=== PATIENT | male | born 1980 | race Caucasian/White ===

== ENCOUNTER → 2020-06-21 08:58 | Outpatient (BNVA) | payer OTHER, SELFPAY | PROVIDERS: PCP Physician Assistant; Visit Provider Internal Medicine Pulmonary Disease | DX: J45.50 Severe persistent asthma, uncomplicated (principal); G47.33 Obstructive sleep apnea (adult) (pediatric); Z91.09 Other allergy status, other than to drugs and biological substances; Z99.89 Dependence on other enabling machines and devices; Z79.899 Other long term (current) drug therapy; Z23 Encounter for immunization | CPT/HCPCS: 90686; 99214 ==

== ENCOUNTER 2020-07-02 07:29 | Outpatient (REF) | payer OTHER, SELFPAY | END 2020-07-02 07:30 | disposition home or self-care (01) | LOC: HO.MDS 07:29 | PROVIDERS: Visit Provider Internal Medicine Pulmonary Disease | DX: J45.50 Severe persistent asthma, uncomplicated (principal) | CPT/HCPCS: 96372 ==

== ENCOUNTER 2020-07-30 07:30 | Outpatient (REF) | payer OTHER, SELFPAY | END 2020-07-30 07:31 | disposition home or self-care (01) | LOC: HO.MDS 07:30 | PROVIDERS: PCP Physician Assistant; Visit Provider Internal Medicine Pulmonary Disease | DX: J45.50 Severe persistent asthma, uncomplicated (principal) | CPT/HCPCS: 96372; J2357 ==

== ENCOUNTER 2020-08-05 07:02 | Emergency (ER) | payer OTHER, SELFPAY ==
--- NOTE | 2020-08-05 07:44 | ED_ITS ---
HPI - Seizure General Chief Complaint: Seizure Stated Complaint: ?seizure Time Seen by Provider: 08/05/20 07:43 Source: patient Mode of arrival: ambulatory Limitations: no limitations History of Present Illness complaint: possible seizure Onset (ago): hour(s) (few hours) Description of Episode: loss of consciousness, bladder incontinence, post-event confusion and other (TV was knocked over, woke up on floor) Witnessed: No Trauma: Yes Seizure History: Yes Place: Home Possible Precipitating Event: none Associated symptoms: denies other symptoms Treatments prior to arrival: none Related Data Home Medications Medication Instructions Recorded Confirmed albuterol sulfate mg INHALATION 06/21/20 aluminum-mag hydroxide-simethicone ml PO 06/21/20 200 mg-200 mg-20 mg/5 mL oral susp aspirin 81 mg tablet,delayed 81 mg PO DAILY 06/21/20 release atorvastatin 40 mg tablet 40 mg PO DAILY 06/21/20 npkbmspivm-clxjdxfpzycuw-axvlcfhc 1 cap PO Q8H PRN 06/21/20 50 mg-325 mg-40 mg capsule carvedilol 3.125 mg tablet 3.125 mg PO BID 06/21/20 divalproex 250 mg tablet,delayed 0 mg PO 06/21/20 release fluconazole 200 mg tablet 200 mg PO DAILY 06/21/20 fluticasone propionate 50 INTRANASAL 06/21/20 mcg/actuation nasal spray,suspension levetiracetam 1,000 mg tablet 1,000 mg PO BID 06/21/20 levetiracetam 250 mg tablet 250 mg PO BID 06/21/20 lisinopril 10 mg tablet 10 mg PO DAILY 06/21/20 midodrine 2.5 mg tablet 2.5 mg PO BID 06/21/20 montelukast 10 mg tablet 10 mg PO DAILY 06/21/20 montelukast 4 mg chewable tablet mg PO 06/21/20 nystatin 100,000 unit/mL oral PO 06/21/20 suspension omalizumab 150 mg/mL subcutaneous mg SUBCUT 06/21/20 syringe prednisone 20 mg tablet 20 mg PO BID 06/21/20 sertraline 50 mg tablet 50 mg PO DAILY 06/21/20 tiotropium bromide 2.5 INHALATION 06/21/20 mcg/actuation mist for inhalation Previous Rx's Medication Instructions Recorded albuterol sulfate 90 mcg/actuation 2 puff PO Q4H PRN #8.5 g 07/08/20 aerosol inhaler pantoprazole 40 mg tablet,delayed 40 mg PO DAILY #90 tab 07/08/20 release sertraline 100 mg tablet 100 mg PO DAILY #90 tab 07/08/20 Allergies Allergy/AdvReac Type Severity Reaction Status Date / Time cat dander [CATS] Allergy Mild GENERALIZED Verified 06/21/20 09:06 ALLERGY SYMPTOMS dog dander [DOGS] Allergy Mild GENERALIZED Verified 06/21/20 09:06 ALLERGY SYMPTOMS tree and shrub pollen [TREE] Allergy Mild GENERALIZED Verified 06/21/20 09:06 ALLERGY SYMPTOMS FROM [place] Review of Systems Review of Systems: Constitutional : No Weight loss, No Fever, No Chills, No Fatigue, No Malaise ENT/Mouth : No sore throat, No Rhinorrhea, mild neck pain Eyes: No Eye Pain, No Swelling, No Redness Cardiovascular : No Chest Pain, No SOB, No Dyspnea on Exertion, No Orthopnea, No Edema, No Palpitations Respiratory : No Cough, No Sputum, No Wheezing Gastrointestinal : No Nausea, No Vomiting, No Diarrhea, No Constipation, No abdominal Pain, No Hematochezia, No Melena Genitourinary : No Dysuria, No Urinary Frequency, No Hematuria, Musculoskeletal : No joint pain, pos Myalgias, No Joint Swelling Skin : No Skin Lesions, No rash Neuro : No Weakness, No Numbness, No Dizziness, No Headache Psych : No Anxiety/Panic, No Depression Heme/Lymph: No Bruising, No Bleeding,No Lymphadenopathy Endocrine : No Polyuria, No Polydipsia All other systems reviewed and are negative PMFSH Past Medical History Attestation statement: The following information was validated with the patient. Medical History Asthma Seizures Family History Family History (Updated 06/12/20 @ 13:54 by Janene Bonds MA) Maternal Grandmother Emphysema, unspecified Social History Social History Alcohol intake: never Smoking Status: Never smoker Use of substances other than those prescribed or required for medical reasons: No Advance Directives: No Advance Directives Information Provided: Yes Physical Exam Vital Signs: Vital Signs: Last Vital Signs Temp 97.2 F 08/05/20 12:00 Pulse 66 08/05/20 12:00 Resp 18 08/05/20 12:00 BP 108/64 08/05/20 12:00 Pulse Ox 98 08/05/20 12:00 Body Mass Index 26.7 Appearance: Alert. Oriented X3. No acute distress. Eyes: Pupils equal, round and reactive to light. ENT: Pharynx normal. Neck: mild ttp along bilateral trapezius muscles CVS: Normal heart rate and rhythm. Pulses normal. Respiratory: No respiratory distress. Breath sounds normal. Abdomen: Soft and nontender. Skin: Skin warm and dry. Normal skin color. Normal skin turgor. Extremities: No lower extremity edema. No calf ttp Neuro: Oriented X 3. No motor deficit. No sensory deficit. Course Course Course Narrative: feels fine, if repeat trop negative stable for DC repeat trop negative stable for DC MDM - Seizure MDM Narrative Medical decision making narrative: 39 yo male with hx of MEHNAZ and seizures reports compliance with depakote and keppra - here with possible seizure no precipitating events woke up on floor and TV was fallen over, at this time will need labs, CT head/neck for trauma, EKG, labs, dispo per results and findings. GCS 15 now. Lab Data Result diagrams: 08/05/20 08:30 08/05/20 08:30 Labs: Lab Results 08/05/20 08/05/20 08/05/20 Range/Units 08:30 08:30 08:30 WBC 11.5 H (4.8-10.8) X10*3/uL RBC 4.96 (4.60-5.80) X10*6/uL Hgb 14.7 (14.0-18.0) g/dl Hct 43.7 (42-52) % MCV 88.1 (80-98) fL MCH 29.6 (27.0-33.0) pg MCHC 33.6 (31.0-36.0) g/dl RDW 12.5 (11.0-16.0) % Plt Count 319 (160-400) X10*3/uL MPV 9.3 L (9.4-12.4) fL Immature Gran % (Auto) 0.3 (0.0-0.4) % Neut % (Auto) 73.2 H (45-73) % Lymph % (Auto) 17.4 L (20-40) % Bradley % (Auto) 7.2 (2-11) % Eos % (Auto) 1.6 (0-4) % Baso % (Auto) 0.3 (0-2) % Lymph # (Auto) 2.0 (1.2-4.9) X10*3/uL Bradley # (Auto) 0.8 (0.1-1.2) X10*3/uL Eos # (Auto) 0.2 (0.0-0.4) X10*3/uL Baso # (Auto) 0.0 (0.0-0.2) X10*3/uL Abs Immat Gran (auto) 0.03 (0.00-0.03) X10*3/uL Absolute Neuts (auto) 8.4 H (2.0-8.3) X10*3/uL Absolute Nucleated RBC 0.000 (0.0-0.012) X10*3/uL Nucleated RBC % (auto) 0.0 (0.0-0.2) /100WBC Hold Blue Top SEE NOTE Sodium 138 (135-145) mmol/L Potassium 5.0 (3.3-5.1) mmol/l Chloride 103 (96-108) mmol/L Carbon Dioxide 27 (22-29) mmol/L Anion Gap 13 (12-20) BUN 10 (9-16) mg/dL Creatinine 0.82 (0.5-1.4) mg/dL Estim Creat Clear Calc 104.1 Estimated GFR > 60 Random Glucose 107 (60-115) mg/dL Calcium 9.1 (8.4-10.2) mg/dL Magnesium 2.2 (1.6-2.6) mg/dL Total Bilirubin 0.3 (0.0-1.0) mg/dL Direct Bilirubin 0.2 (0.0-0.5) mg/dL AST 15 (5-37) U/L ALT 19 (0-40) U/L Alkaline Phosphatase 50 (39-117) U/L Troponin I High Sens (<3.5-35.0) ng/L Total Protein 7.0 (6.5-8.0) g/dL Albumin 4.5 (3.5-5.0) g/dL Urine Color Urine Appearance Urine pH (5.0-8.0) Ur Specific [place] (1.005-1.025) Urine Protein (NEG-TRACE) MG/DL Urine Glucose (UA) (NEG) MG/DL Urine Ketones (NEG) MG/DL Urine Blood (NEG) Urine Nitrite (NEG) Ur Leukocyte Esterase (NEG) Valproic Acid 27.9 L (50.0-100.0) mcg/mL 08/05/20 08/05/20 08/05/20 Range/Units 08:30 12:13 12:13 WBC (4.8-10.8) X10*3/uL RBC (4.60-5.80) X10*6/uL Hgb (14.0-18.0) g/dl Hct (42-52) % MCV (80-98) fL MCH (27.0-33.0) pg MCHC (31.0-36.0) g/dl RDW (11.0-16.0) % Plt Count (160-400) X10*3/uL MPV (9.4-12.4) fL Immature Gran % (Auto) (0.0-0.4) % Neut % (Auto) (45-73) % Lymph % (Auto) (20-40) % Bradley % (Auto) (2-11) % Eos % (Auto) (0-4) % Baso % (Auto) (0-2) % Lymph # (Auto) (1.2-4.9) X10*3/uL Bradley # (Auto) (0.1-1.2) X10*3/uL Eos # (Auto) (0.0-0.4) X10*3/uL Baso # (Auto) (0.0-0.2) X10*3/uL Abs Immat Gran (auto) (0.00-0.03) X10*3/uL Absolute Neuts (auto) (2.0-8.3) X10*3/uL Absolute Nucleated RBC (0.0-0.012) X10*3/uL Nucleated RBC % (auto) (0.0-0.2) /100WBC Hold Blue Top Sodium (135-145) mmol/L Potassium (3.3-5.1) mmol/l Chloride (96-108) mmol/L Carbon Dioxide (22-29) mmol/L Anion Gap (12-20) BUN (9-16) mg/dL Creatinine (0.5-1.4) mg/dL Estim Creat Clear Calc Estimated GFR Random Glucose (60-115) mg/dL Calcium (8.4-10.2) mg/dL Magnesium (1.6-2.6) mg/dL Total Bilirubin (0.0-1.0) mg/dL Direct Bilirubin (0.0-0.5) mg/dL AST (5-37) U/L ALT (0-40) U/L Alkaline Phosphatase (39-117) U/L Troponin I High Sens 40.0 H 24.0 (<3.5-35.0) ng/L Total Protein (6.5-8.0) g/dL Albumin (3.5-5.0) g/dL Urine Color YELLOW Urine Appearance CLEAR Urine pH 6.5 (5.0-8.0) Ur Specific [place] 1.015 (1.005-1.025) Urine Protein NEG (NEG-TRACE) MG/DL Urine Glucose (UA) NEG (NEG) MG/DL Urine Ketones NEG (NEG) MG/DL Urine Blood NEG (NEG) Urine Nitrite NEG (NEG) Ur Leukocyte Esterase NEG (NEG) Valproic Acid (50.0-100.0) mcg/mL ECG Data Attestation: I personally reviewed and interpreted this ECG as follows: ECG interpretation date: 08/05/20 ECG interpretation time: 08:25 Interpretation: Rate: 58 Rhythm: sinus bradycardia [place]: normal Normal P waves. Normal VALERIO. Normal QRS complex. ST T wave : normal qTC: normal prior studies: no acute ischemia The study has been interpreted contemporaneously by me. . Discharge Plan Discharge Clinical Impression: Generalized seizure Patient Disposition: Home, Self-Care Instructions: Epilepsy (ED) Additional Instructions: return to ED for any worsening symptoms or concerns Prescriptions: No Action sertraline 100 mg tablet 100 mg PO DAILY Qty: 90 RF: 0 pantoprazole 40 mg tablet,delayed release (DR/EC) 40 mg PO DAILY Qty: 90 RF: 0 albuterol sulfate 90 mcg/actuation HFA aerosol inhaler 2 puff PO Q4H PRN (Reason: shortness of breath or wheezing) Qty: 8.5 RF: 8 Referrals: Saúl Maier PA-C [Primary Care Provider] - 2 days (if not better) Stand Alone Forms: Work/School Release
--- NOTE | 2020-08-05 07:45 | CT_ITS ---
EXAMINATION: NONCONTRAST HEAD CT NONCONTRAST CERVICAL SPINE CT INDICATION INFORMATION: Fall COMPARISON: 03/12/2020 TECHNIQUE: Separate noncontrast CT examinations of the head and cervical spine were performed. Coronal and sagittal images were created for each examination at the technologist workstation. This CT examination was performed using dose optimization techniques as appropriate, variously including the following: *Automated exposure control *Adjustment of mA and/or kV according to patient size (this includes techniques or standardized protocols for targeted exams where dose is matched to indication/reason for exam; i.e. extremities or head) *Use of iterative reconstruction technique DLP: 1129 mGy-cm FINDINGS: Head: There is no evidence of acute intracranial hemorrhage or territorial infarction. No abnormal mass effect or midline shift is seen. Vora to white matter differentiation is well preserved. No extra-axial fluid collections are identified. No hydrocephalus. No significant volume loss. There is no abnormal attenuation within the brain parenchyma. No acute osseous or soft tissue abnormality. Opacification of the left sphenoid sinus. Mild opacification of the maxillary sinuses. The mastoid air cells and visualized portions of the paranasal sinuses are otherwise well aerated. Cervical spine: There is anatomic alignment of the vertebral bodies and posterior elements. The atlantoaxial and atlantooccipital articulations are intact. Vertebral body heights and intervertebral disc spaces are maintained. Tiny endplate osteophytes noted. No evidence of acute fracture. No prevertebral soft tissue swelling. Mild paraseptal emphysema noted at the lung apices. Small calcifications in the thyroid gland. CT/CT cervical spine wo con IMPRESSION: 1. No acute intracranial finding. 2. No acute fracture or malalignment of the cervical spine.
--- NOTE | 2020-08-05 07:45 | ECG_ITS ---
Test Reason : SEIZURE Blood Pressure : / mmHG Vent. Rate : 058 BPM Atrial Rate : 058 BPM P-R Int : 138 ms QRS Dur : 092 ms QT Int : 412 ms P-R-T Axes : 012 005 012 degrees QTc Int : 404 ms Sinus bradycardia with sinus arrhythmia Otherwise normal ECG When compared with ECG of 12-MAR-2020 14:18, No significant change was found Referred By: Tracee Agrawal Electronically Signed By:LEONID VALDEZ MD
[2020-08-05 07:46] VITALS: BP 109/73; PULSE 70; RESP 18; TEMP 36.8; O2SAT 96; BMI 26.7
[2020-08-05 08:00] VITALS: BP 110/62; PULSE 68; RESP 18; TEMP 36.6; O2SAT 98
[2020-08-05 08:45] LABS: MANUAL DIFF FLAG NO
[2020-08-05 08:46] LABS: Basophils Percent Auto 0.3 % (0-2); Eosinophils Absolute Auto 0.2 X10*3/uL (0.0-0.4); Eosinophils Percent Auto 1.6 % (0-4); Hematocrit 43.7 % (42-52); Hemoglobin 14.7 g/dl (14.0-18.0); Imm Gran Abs Auto 0.03 X10*3/uL (0.00-0.03); Imm Gran Pct Auto 0.3 % (0.0-0.4); Lymphocytes Percent Auto 17.4 % (20-40); Mean Corpuscular HGB Conc 33.6 g/dl (31.0-36.0); Mean Corpuscular Hemoglobin 29.6 pg (27.0-33.0); Mean Corpuscular Volume 88.1 fL (80-98); Mean Platelet Volume 9.3 fL (9.4-12.4); Monocytes Absolute Auto 0.8 X10*3/uL (0.1-1.2); Monocytes Percent Auto 7.2 % (2-11); Neutrophils Absolute Auto 8.4 X10*3/uL (2.0-8.3); Neutrophils Percent Auto 73.2 % (45-73); Platelet Count 319 X10*3/uL (160-400); Red Blood Count 4.96 X10*6/uL (4.60-5.80); Red Cell Distribution Width 12.5 % (11.0-16.0); White Blood Count 11.5 X10*3/uL (4.8-10.8)
[2020-08-05 09:18] LABS: Alanine Aminotransferase 19 U/L (0-40); Albumin Level 4.5 g/dL (3.5-5.0); Alkaline Phosphatase 50 U/L (39-117); Anion Gap 13 (12-20); Aspartate Amino Transferase 15 U/L (5-37); Bilirubin Direct 0.2 mg/dL (0.0-0.5); Bilirubin Total 0.3 mg/dL (0.0-1.0); Blood Urea Nitrogen 10 mg/dL (9-16); Calcium 9.1 mg/dL (8.4-10.2); Carbon Dioxide 27 mmol/L (22-29); Chloride 103 mmol/L (96-108); Creatinine Clr Calc Pharmacy 104.1; Estimated Glomerular Filt Rate > 60; Glucose Random 107 mg/dL (60-115); Magnesium 2.2 mg/dL (1.6-2.6); Sodium 138 mmol/L (135-145)
[2020-08-05 09:28] LABS: Valproate 27.9 mcg/mL (50.0-100.0)
[2020-08-05 12:00] VITALS: BP 108/64; PULSE 66; RESP 18; TEMP 36.2; O2SAT 98
[2020-08-05 12:25] LABS: Glucose Urine UA NEG (NEG); Leukocyte Esterase Urine NEG (NEG); Nitrite Urine NEG (NEG); PH 6.5 (5.0-8.0); Specific Gravity - Urine 1.015 (1.005-1.025); Urine Blood NEG (NEG); Urine Ketones NEG (NEG); Urine Protein NEG (NEG-TRACE)
[2020-08-05 12:27] LABS: Appearance Urine CLEAR; Color Urine YELLOW
== END 2020-08-05 14:04 | disposition home or self-care (01) ==
PROVIDERS: Emergency Provider Emergency Medicine; PCP Physician Assistant
DX: R56.9 Unspecified convulsions (principal); R40.2410 Glasgow coma scale score 13-15, unspecified time; M54.2 Cervicalgia; Z79.899 Other long term (current) drug therapy
CPT/HCPCS: 36415; 70450; 72125; 80048; 80076; 80164; 81003; 83735; 84484; 85025; 93005; 99284

== ENCOUNTER 2020-08-27 07:34 | Outpatient (REF) | payer OTHER, SELFPAY | END 2020-08-27 07:35 | disposition home or self-care (01) | LOC: HO.MDS 07:34 | PROVIDERS: PCP Physician Assistant; Visit Provider Internal Medicine Pulmonary Disease | DX: J45.909 Unspecified asthma, uncomplicated (principal) | CPT/HCPCS: 96372; J2357 ==

== ENCOUNTER 2020-09-06 13:33 | Emergency (ER) | payer OTHER, SELFPAY ==
[2020-09-06 13:43] VITALS: BP 97/61; PULSE 75; RESP 17; TEMP 36.1; O2SAT 98; BMI 27.1
--- NOTE | 2020-09-06 16:29 | ED_ITS ---
HPI - Extremity Problem General Chief complaint: Extremity Injury, Upper Stated complaint: arm pain Time Seen by Provider: 09/06/20 15:45 Source: patient Mode of arrival: ambulatory History of Present Illness HPI Narrative: 39-year-old male with a past medical history of asthma, MEHNAZ on CPAP, seizures, intermittent urinary incontinence, cardiomyopathy presenting to the ED complaining right arm soreness s/p Xolair injection on the . Admits to similar injections in the past, reports this is 3rd, however states intermittent tingling down arm since last injection which has not happened in the past. Denies fever, chills, localized reaction, swelling, weakness MD Complaint: extremity pain Related Data Home Medications Medication Instructions Recorded Confirmed albuterol sulfate mg INHALATION 06/21/20 08/19/20 aluminum-mag hydroxide-simethicone ml PO 06/21/20 08/19/20 200 mg-200 mg-20 mg/5 mL oral susp zumqjiwlyk-xjycjuvgmyzbr-cnevtgem 1 cap PO Q8H PRN 06/21/20 08/19/20 50 mg-325 mg-40 mg capsule carvedilol 3.125 mg tablet 3.125 mg PO BID 06/21/20 08/19/20 divalproex 250 mg tablet,delayed 250 mg PO BID tab 06/21/20 08/19/20 release fluconazole 200 mg tablet 200 mg PO DAILY 06/21/20 08/19/20 fluticasone propionate 50 INTRANASAL 06/21/20 08/19/20 mcg/actuation nasal spray,suspension levetiracetam 1,000 mg tablet 1,000 mg PO BID 06/21/20 08/19/20 midodrine 2.5 mg tablet 2.5 mg PO BID 06/21/20 08/19/20 montelukast 10 mg tablet 10 mg PO DAILY 06/21/20 08/19/20 nystatin 100,000 unit/mL oral PO 06/21/20 08/19/20 suspension omalizumab 150 mg/mL subcutaneous mg SUBCUT 06/21/20 08/19/20 syringe prednisone 20 mg tablet 20 mg PO BID 06/21/20 08/19/20 tiotropium bromide 2.5 INHALATION 06/21/20 08/19/20 mcg/actuation mist for inhalation Previous Rx's Medication Instructions Recorded albuterol sulfate 90 mcg/actuation 2 puff PO Q4H PRN #8.5 g 07/08/20 aerosol inhaler pantoprazole 40 mg tablet,delayed 40 mg PO DAILY #90 tab 07/08/20 release sertraline 100 mg tablet 100 mg PO DAILY #90 tab 07/08/20 aspirin 81 mg tablet,delayed 81 mg PO DAILY 90 Days #90 tab 08/19/20 release lisinopril 10 mg tablet 10 mg PO DAILY 90 Days #90 tab 08/19/20 atorvastatin 40 mg tablet 40 mg PO DAILY #30 tab 09/02/20 Allergies Allergy/AdvReac Type Severity Reaction Status Date / Time cat dander [CATS] Allergy Mild GENERALIZED Verified 09/06/20 13:48 ALLERGY SYMPTOMS dog dander [DOGS] Allergy Mild GENERALIZED Verified 09/06/20 13:48 ALLERGY SYMPTOMS tree and shrub pollen [TREE] Allergy Mild GENERALIZED Verified 09/06/20 13:48 ALLERGY SYMPTOMS FROM [place] Review of Systems Review of Systems: Constitutional: No Fever, No Chills Musculoskeletal: + joint pain, No Myalgias, No Joint Swelling Skin: No Skin Lesions, No rash Neuro: No Weakness, +tingling Yes all other systems are reviewed and are negative [facility] Past Medical History Attestation statement: The following information was validated with the patient. Medical History (Updated 09/06/20 @ 16:32 by PEYMAN Cano) Asthma Myocardial infarct Seizures Surgical History History of cholecystectomy Family History Family History Maternal Grandmother Emphysema, unspecified Father Diabetes Mother No problems noted. Social History Social History Alcohol intake: never Smoking Status: Never smoker Advance Directives: No Advance Directives Information Provided: No Physical Exam Vital Signs: Vital Signs: Last Vital Signs Temp 97 F 09/06/20 13:43 Pulse 75 09/06/20 13:43 Resp 17 09/06/20 13:43 BP 97/61 09/06/20 13:43 Pulse Ox 98 09/06/20 13:43 Body Mass Index 27.1 Const: General: cooperative and healthy appearing Orientation/consciousness: patient oriented x3 Limitations: no limitations HENMT: Head: Yes normal to inspection Ears: hearing grossly normal bilaterally General nose exam: Normal external nose present Face and sinus: Yes normal facial exam Eyes: General: appearance normal, both eyes and all related structures EOM: EOMs intact bilaterally Neck: Neck: Yes normal visual inspection Resp: Effort & Inspection: normal respiratory effort Cardio: Rate: regular rate Peripheral pulses: radial pulses present Skin: Rashes: no rashes Wounds: no wounds Neuro: General: patient oriented x3 Gait exam (Neuro): Normal gait present Extrem: Other: Right arm with mild tenderness to palpation. No erythema, fluctuance, induration, streaking. FROM and NV intact General: Yes normal to inspection MDM - Extremity (Nontraumatic) MDM Narrative Medical decision making narrative: On exam VSS, NAD/well-appearing, no appreciable localized reaction. Likely post injection site soreness. No evidence of infection/allergic reaction at this time Discharge Plan Discharge Clinical Impression: Pain at injection site Qualifiers: Encounter type: initial encounter Qualified Code(s): T80.89XA - Other complications following infusion, transfusion and therapeutic injection, initial encounter Patient Disposition: Home, Self-Care Instructions: Musculoskeletal Pain (ED) Additional Instructions: It is typical for him to have arm pain/soreness after an injection you may ice or heat the area Take Tylenol and Motrin at pain If area looks infected, is red, there streaking, or your fever return to the ED Prescriptions: No Action sertraline 100 mg tablet 100 mg PO DAILY Qty: 90 RF: 0 pantoprazole 40 mg tablet,delayed release (DR/EC) 40 mg PO DAILY Qty: 90 RF: 0 albuterol sulfate 90 mcg/actuation HFA aerosol inhaler 2 puff PO Q4H PRN (Reason: shortness of breath or wheezing) Qty: 8.5 RF: 8 atorvastatin 40 mg tablet 40 mg PO DAILY Qty: 30 RF: 4 lisinopril 10 mg tablet 10 mg PO DAILY 90 Days Qty: 90 RF: 1 aspirin 81 mg tablet,delayed release (DR/EC) 81 mg PO DAILY 90 Days Qty: 90 RF: 1 levetiracetam 1,000 mg tablet 1,000 mg PO BID RF: 0 midodrine 2.5 mg tablet 2.5 mg PO BID RF: 0 montelukast 10 mg tablet 10 mg PO DAILY RF: 0 divalproex 250 mg tablet,delayed release (DR/EC) 250 mg PO BID RF: 0 Xolair 150 mg/mL syringe subcut RF: 0 nystatin 100,000 unit/mL suspension PO RF: 0 carvedilol 3.125 mg tablet 3.125 mg PO BID RF: 0 fluconazole 200 mg tablet 200 mg PO DAILY RF: 0 albuterol sulfate 2.5 mg /3 mL (0.083 %) solution for nebulization inhalation RF: 0 prednisone 20 mg tablet 20 mg PO BID RF: 0 Spiriva Respimat 2.5 mcg/actuation mist inhalation RF: 0 bbhnnlcqyf-wvcahwxkyqybs-lxbg 50-325-40 mg capsule 1 cap PO Q8H PRNRF: 0 fluticasone propionate 50 mcg/actuation spray,suspension intranasal RF: 0 alum-mag hydroxide-simeth 200-200-20 mg/5 mL suspension PO RF: 0 Referrals: Saúl Maier PA-C [Primary Care Provider] - 1 week Interventions: ED Discharge Assessment Last Done: 09/06/20 16:42 Discharge Date/Time: 09/06/20 16:43
== END 2020-09-06 16:43 | disposition home or self-care (01) ==
PROVIDERS: Emergency Provider Emergency Medicine; PCP Physician Assistant
DX: T80.89XA Other complications following infusion, transfusion and therapeutic injection, initial encounter (principal); M79.601 Pain in right arm; X58.XXXA Exposure to other specified factors, initial encounter; I25.2 Old myocardial infarction
CPT/HCPCS: 99283

== ENCOUNTER 2020-09-24 07:30 | Outpatient (REF) | payer OTHER, SELFPAY | END 2020-09-24 07:31 | disposition home or self-care (01) | LOC: HO.MDS 07:30 | PROVIDERS: PCP Physician Assistant; Visit Provider Internal Medicine Pulmonary Disease | DX: J45.50 Severe persistent asthma, uncomplicated (principal) | CPT/HCPCS: 96372; J2357 ==

== ENCOUNTER → 2020-09-29 08:53 | Outpatient (BNVA) | payer OTHER, SELFPAY | PROVIDERS: PCP Physician Assistant; Visit Provider Internal Medicine Pulmonary Disease | DX: J45.50 Severe persistent asthma, uncomplicated (principal); G47.33 Obstructive sleep apnea (adult) (pediatric); Z99.89 Dependence on other enabling machines and devices; Z91.09 Other allergy status, other than to drugs and biological substances | CPT/HCPCS: 99212 ==

== ENCOUNTER 2020-10-13 05:06 | Emergency (ER) | payer OTHER, SELFPAY ==
[2020-10-13 05:09] VITALS: BP 137/71; PULSE 82; RESP 16; TEMP 36.2; O2SAT 98; BMI 26.9
[2020-10-13 05:20] VITALS: BP 137/71; PULSE 82; RESP 16; TEMP 36.2; O2SAT 98
--- NOTE | 2020-10-13 05:36 | XR_ITS ---
EXAMINATION: XR CHEST CLINICAL INFORMATION: Unresponsive COMPARISON: 11/10/2019 TECHNIQUE: Frontal view of the chest was obtained. FINDINGS: Lung volumes are symmetric. No focal consolidation is seen. No evidence of pneumothorax, pleural effusion, or pulmonary edema. The cardiomediastinal contour is unremarkable. No acute osseous findings are seen. XR/XR chest 1V IMPRESSION: No acute cardiopulmonary findings.
--- NOTE | 2020-10-13 05:36 | ECG_ITS ---
Test Reason : SEIZURE Blood Pressure : / mmHG Vent. Rate : 068 BPM Atrial Rate : 068 BPM P-R Int : 144 ms QRS Dur : 096 ms QT Int : 402 ms P-R-T Axes : 027 006 016 degrees QTc Int : 427 ms Normal sinus rhythm with sinus arrhythmia Minimal voltage criteria for LVH, may be normal variant Borderline ECG When compared with ECG of 05-AUG-2020 08:22, No significant change was found Referred By: Sheryl Garcia Electronically Signed By:Serge Marroquin
[2020-10-13] MEDS: LORazepam 2 MG/ML VIAL IM (05:38)
--- NOTE | 2020-10-13 05:41 | CT_ITS ---
EXAMINATION: NONCONTRAST HEAD CT NONCONTRAST CERVICAL SPINE CT INDICATION INFORMATION: Unresponsive COMPARISON: 08/05/2020 TECHNIQUE: Separate noncontrast CT examinations of the head and cervical spine were performed. Coronal head CT images and coronal and sagittal cervical spine images were created at the technologist workstation. DLP: 2248 mGy-cm DOSE LOWERING TECHNIQUES: This CT examination was performed using dose optimization techniques as appropriate, variously including the following: - Automated exposure control - Adjustment of mA and/or kV according to patient size (this includes techniques or standardized protocols for targeted exams were dose is matched to indication/reason for exam; i.e. extremities or head) - Use of iterative reconstruction technique FINDINGS: Head: There is no evidence of acute intracranial hemorrhage or territorial infarction. No abnormal mass-effect or midline shift is seen. Vora to white matter differentiation is well preserved. No extra-axial fluid collections are identified. The ventricles are normal in size. There is no abnormal attenuation within the brain parenchyma. The osseous structures and soft tissues are normal. Mucous retention cyst is noted in the left maxillary sinus. The mastoid air cells are well-aerated. Cervical spine: There is anatomic alignment of the vertebral bodies and posterior elements. Vertebral body heights are maintained. Intervertebral disc spaces are preserved. No evidence of acute fracture. No prevertebral soft tissue swelling. Visualized portions of the lung apices demonstrate emphysema. The thyroid gland demonstrates a few nodules including calcifications. CT/CT cervical spine wo con IMPRESSION: 1. No acute findings identified in the head or cervical spine. 2. Few thyroid nodules, which would be better assessed with ultrasound.
--- NOTE | 2020-10-13 05:44 | ED_ITS ---
HPI - Seizure General Chief Complaint: Seizure Stated Complaint: ?Seizure Time Seen by Provider: 10/13/20 05:35 Source: patient Mode of arrival: ambulatory Limitations: altered mental status History of Present Illness HPI Narrative: 39 years old male with known history of seizure patient walked into the emergency department feeling nauseous and abdominal pain, patient walked into room 6, when I get into the room patient was unresponsive with blood around his mouth and bite on the tip of his tongue, patient shortly to start to wake up but being aggressive and belligerent to the staff. Unable to obtain full history from the patient but old chart was reviewed and patient had similar presentation in the past. Seizure History: Yes Place: Home Related Data Home Medications Medication Instructions Recorded Confirmed albuterol sulfate mg INHALATION 06/21/20 08/19/20 aluminum-mag hydroxide-simethicone ml PO 06/21/20 08/19/20 200 mg-200 mg-20 mg/5 mL oral susp cbeoxuwfgw-vxjflpcwwkzrg-ahssqanv 1 cap PO Q8H PRN 06/21/20 08/19/20 50 mg-325 mg-40 mg capsule carvedilol 3.125 mg tablet 3.125 mg PO BID 06/21/20 08/19/20 divalproex 250 mg tablet,delayed 250 mg PO BID tab 06/21/20 08/19/20 release fluconazole 200 mg tablet 200 mg PO DAILY 06/21/20 08/19/20 fluticasone propionate 50 INTRANASAL 06/21/20 08/19/20 mcg/actuation nasal spray,suspension levetiracetam 1,000 mg tablet 1,000 mg PO BID 06/21/20 08/19/20 midodrine 2.5 mg tablet 2.5 mg PO BID 06/21/20 08/19/20 nystatin 100,000 unit/mL oral PO 06/21/20 08/19/20 suspension omalizumab 150 mg/mL subcutaneous mg SUBCUT 06/21/20 08/19/20 syringe prednisone 20 mg tablet 20 mg PO BID 06/21/20 08/19/20 tiotropium bromide 2.5 INHALATION 06/21/20 08/19/20 mcg/actuation mist for inhalation albuterol sulfate 90 mcg/actuation 2 puff INHALATION Q4H PRN g 09/27/20 aerosol inhaler Previous Rx's Medication Instructions Recorded albuterol sulfate 90 mcg/actuation 2 puff PO Q4H PRN #8.5 g 07/08/20 aerosol inhaler pantoprazole 40 mg tablet,delayed 40 mg PO DAILY #90 tab 07/08/20 release sertraline 100 mg tablet 100 mg PO DAILY #90 tab 07/08/20 aspirin 81 mg tablet,delayed 81 mg PO DAILY 90 Days #90 tab 08/19/20 release lisinopril 10 mg tablet 10 mg PO DAILY 90 Days #90 tab 08/19/20 atorvastatin 40 mg tablet 40 mg PO DAILY #30 tab 09/02/20 albuterol sulfate 90 mcg/actuation 2 puff INHALATION Q6H PRN 30 Days 09/27/20 aerosol inhaler #8.5 g montelukast 10 mg tablet 10 mg PO BEDTIME #90 tab 10/04/20 Allergies Allergy/AdvReac Type Severity Reaction Status Date / Time cat dander [CATS] Allergy Mild GENERALIZED Verified 09/29/20 08:56 ALLERGY SYMPTOMS dog dander [DOGS] Allergy Mild GENERALIZED Verified 09/29/20 08:56 ALLERGY SYMPTOMS tree and shrub pollen [TREE] Allergy Mild GENERALIZED Verified 09/29/20 08:56 ALLERGY SYMPTOMS FROM P[place] TRE[place] Review of Systems Review of Systems: Yes Unobtainable due to mental status PMFSH Past Medical History Medical History Asthma Myocardial infarct Seizures Surgical History History of cholecystectomy Family History Family History Maternal Grandmother Emphysema, unspecified Father Diabetes Mother No problems noted. Social History Social History Alcohol intake: never Smoking Status: Never smoker Advance Directives: No Physical Exam Vital Signs: Vital Signs: Last Vital Signs Temp 97.2 F 10/13/20 05:20 Pulse 82 10/13/20 05:20 Resp 16 10/13/20 05:20 BP 137/71 10/13/20 05:20 Pulse Ox 98 10/13/20 05:20 Body Mass Index 26.9 Vital signs have been reviewed as normal and appeared to be correct. Blood p ressure is high. Heart rate normal. Respiration rate normal. Temperature normal. Oxygen saturation normal. Appearance: Awake, aggressive, blood on the left angle of the mouth, with superficial tip of tongue laceration with no active bleed. Head: Normal external exam. Normocephalic. Atraumatic. No [place] signs noted. No raccoon eyes noted Eyes: PERRLA. EOMI. Conjunctiva and sclera normal. Eyelids normal. ENT: EAC normal. TM's Normal. Pharynx normal. Uvula midline. Moist mucous membranes. No trismus noted. No drooling noted. No muffled voice noted. Neck: Normal inspection. Neck supple. FROM. No adenopathy. Thyroid Normal. No meningeal signs. No neck mass noted. CVS: Normal heart rate and rhythm. Heart sound normal. No murmurs noted. Pulses normal throughout. Respiratory: No respiratory distress. Painless inspiration. Breath sounds normal. No wheezes/rales/rhonchi noted. Chest nontender. No accessory muscle usage noted or decreased air movement noted. Abdomen: Soft and nontender. Bowel sounds normal in all 4 quadrants. No distention noted. No organomegaly noted. No visible injury noted. Back: No CVA tenderness. Full range of motion noted. Skin: Skin warm and dry. Normal skin color. Normal skin turgor. No rashes/lesions/lacerations noted. Extremities: No lower extremity edema. Extremities exhibit normal range of motion. Extremities nontender. Neuro: No motor deficit. No sensory deficit. MDM - Seizure MDM Narrative Medical decision making narrative: 39-year-old male with history of seizure presented after probably having seizure, patient likely in postictal, mentation is clearing, patient is complaining of abdominal pain, will check labs, CT head/C-spine/abdominal CT, check Depakote/Keppra levels, dispo per result and f indings. Signed out to . Lab Data Result diagrams: 10/13/20 06:04 Discharge Plan Discharge Prescriptions: No Action sertraline 100 mg tablet 100 mg PO DAILY Qty: 90 RF: 0 pantoprazole 40 mg tablet,delayed release (DR/EC) 40 mg PO DAILY Qty: 90 RF: 0 albuterol sulfate 90 mcg/actuation HFA aerosol inhaler 2 puff PO Q4H PRN (Reason: shortness of breath or wheezing) Qty: 8.5 RF: 8 atorvastatin 40 mg tablet 40 mg PO DAILY Qty: 30 RF: 4 albuterol sulfate [ProAir HFA] 90 mcg/actuation HFA aerosol inhaler 2 puff inhalation Q4H PRNRF: 0 albuterol sulfate [ProAir HFA] 90 mcg/actuation HFA aerosol inhaler 2 puff inhalation Q6H PRN (Reason: shortness of breath or wheezing) 30 Days Qty: 8.5 RF: 2 montelukast 10 mg tablet 10 mg PO BEDTIME Qty: 90 RF: 3 lisinopril 10 mg tablet 10 mg PO DAILY 90 Days Qty: 90 RF: 1 aspirin 81 mg tablet,delayed release (DR/EC) 81 mg PO DAILY 90 Days Qty: 90 RF: 1 levetiracetam 1,000 mg tablet 1,000 mg PO BID RF: 0 midodrine 2.5 mg tablet 2.5 mg PO BID RF: 0 divalproex 250 mg tablet,delayed release (DR/EC) 250 mg PO BID RF: 0 Xolair 150 mg/mL syringe subcut RF: 0 nystatin 100,000 unit/mL suspension PO RF: 0 carvedilol 3.125 mg tablet 3.125 mg PO BID RF: 0 fluconazole 200 mg tablet 200 mg PO DAILY RF: 0 albuterol sulfate 2.5 mg /3 mL (0.083 %) solution for nebulization inhalation RF: 0 prednisone 20 mg tablet 20 mg PO BID RF: 0 Spiriva Respimat 2.5 mcg/actuation mist inhalation RF: 0 acvihxoymd-zjmjijjhjatou-ymhv 50-325-40 mg capsule 1 cap PO Q8H PRNRF: 0 fluticasone propionate 50 mcg/actuation spray,suspension intranasal RF: 0 alum-mag hydroxide-simeth 200-200-20 mg/5 mL suspension PO RF: 0
--- NOTE | 2020-10-13 05:45 | CT_ITS ---
EXAMINATION: CT ABDOMEN AND PELVIS WITHOUT CONTRAST CLINICAL INFORMATION: Abdominal pain COMPARISON: 09/01/2018 TECHNIQUE: Multidetector volumetric imaging was performed from the superior aspect of the liver through the pubic symphysis. Sagittal and coronal reformatted images were obtained on the technologist's workstation. This CT examination was performed using dose optimization techniques as appropriate, variously including the following: *Automated exposure control *Adjustment of mA and/or kV according to patient size (this includes techniques or standardized protocols for targeted exams where dose is matched to indication/reason for exam; i.e. extremities or head) *Use of iterative reconstruction technique DLP: 2248 mGy-cm FINDINGS: LUNG BASES: The visualized lung bases are unremarkable. LIVER, GALLBLADDER, AND BILIARY TREE: The liver is normal in size, shape, and attenuation. No focal hepatic lesion or biliary ductal dilatation is present. Patient is status post cholecystectomy. PANCREAS: Unremarkable. SPLEEN: Unremarkable. ADRENAL GLANDS: Unremarkable. KIDNEYS AND URETERS: The kidneys are normal in size, shape, and attenuation. No hydronephrosis, hydroureter, or calculi seen. No perinephric stranding. BLADDER: Unremarkable. GASTROINTESTINAL TRACT: No evidence of bowel obstruction. There is minimal scattered colonic diverticulosis. The appendix is unremarkable. No free fluid or free air is seen. ABDOMINAL WALL: No significant hernia is appreciated. LYMPH NODES: Normal. VASCULAR: Unremarkable. PELVIC VISCERA: Unremarkable. OSSEOUS STRUCTURES: Bilateral L5 pars defects are noted. CT/CT abdomen pelvis wo con IMPRESSION: No acute findings identified in the abdomen/pelvis.
[2020-10-13] MEDS: 0.9 % Sodium Chloride 1,000 ML 999 ML IVCONT (06:10)
[2020-10-13 06:42] LABS: Alanine Aminotransferase 19 U/L (0-40); Albumin Level 5.2 g/dL (3.5-5.0); Alkaline Phosphatase 64 U/L (39-117); Anion Gap 34 (12-20); Aspartate Amino Transferase 15 U/L (5-37); Bilirubin Direct 0.2 mg/dL (0.0-0.5); Bilirubin Total 0.5 mg/dL (0.0-1.0); Blood Urea Nitrogen 10 mg/dL (9-16); Calcium 9.8 mg/dL (8.4-10.2); Carbon Dioxide 7 mmol/L (22-29); Chloride 106 mmol/L (96-108); Creatinine Clr Calc Pharmacy 82.1; Estimated Glomerular Filt Rate > 60; Glucose Random 148 mg/dL (60-115); Lipase 36 U/L (8-78); Potassium 4.1 mmol/l (3.3-5.1); Sodium 143 mmol/L (135-145); Total Protein 7.8 g/dL (6.5-8.0)
[2020-10-13 06:43] LABS: Troponin-I High Sensitivity 18.1 ng/L (<3.5-35.0)
--- NOTE | 2020-10-13 06:44 | PC.NURSE ---
Patient presented to the ER and stated that he thought he might have had a seizure last night. Patient was sleeping when the ED provider went in for evaluation and was unable to rouse patient. Patient did have some saliva tinged with blood on his left cheek. ED provider questioning ? post ictal behavior. Patient became agitated and started trying to punch, kick and bite staff when this RN attempted to place an IV. Security was called to assist. Patient was given Ativan 2 mg. Patient continued to struggle for another 10-15 minutes. We were able to persuade the patient to calm down. Patient then let us place an iv. patient taken to cat scan
--- NOTE | 2020-10-13 07:33 | PC.NURSE ---
report taken from alka goldman pt sitting up in stretcher, appears cold, given warm blanket. pt alert and oriented x 3. sipping on water on bedside table, tolerating po w/o issue, iv fluids continue to infuse. wctm.
[2020-10-13 07:46] LABS: Valproate 54.4 mcg/mL (50.0-100.0)
[2020-10-13] MEDS: Divalproex Sodium 500 MG TABLET.DR PO (08:07)
--- NOTE | 2020-10-13 08:38 | PC.NURSE ---
pt able to tolerate po w/o issue, drinking water, took medication po. no noted seizure activity.
[2020-10-13 08:40] LABS: COVID-19 Test Negative (Negative)
[2020-10-13 08:53] LABS: Basophils Absolute Auto 0.1 X10*3/uL (0.0-0.2); Basophils Percent Auto 0.3 % (0-2); Eosinophils Absolute Auto 0.2 X10*3/uL (0.0-0.4); Eosinophils Percent Auto 0.6 % (0-4); Hematocrit 50.4 % (42-52); Hemoglobin 16.2 g/dl (14.0-18.0); Imm Gran Abs Auto 0.19 X10*3/uL (0.00-0.03); Imm Gran Pct Auto 0.8 % (0.0-0.4); Lymphocytes Absolute Auto 4.8 X10*3/uL (1.2-4.9); Lymphocytes Percent Auto 19.3 % (20-40); MANUAL DIFF FLAG NO; Mean Corpuscular HGB Conc 32.1 g/dl (31.0-36.0); Mean Corpuscular Hemoglobin 29.1 pg (27.0-33.0); Mean Corpuscular Volume 90.6 fL (80-98); Mean Platelet Volume 10.3 fL (9.4-12.4); Monocytes Absolute Auto 1.4 X10*3/uL (0.1-1.2); Monocytes Percent Auto 5.6 % (2-11); Neutrophils Absolute Auto 18.2 X10*3/uL (2.0-8.3); Neutrophils Percent Auto 73.4 % (45-73); Platelet Count 500 X10*3/uL (160-400); Red Blood Count 5.56 X10*6/uL (4.60-5.80); Red Cell Distribution Width 13.1 % (11.0-16.0); White Blood Count 24.8 X10*3/uL (4.8-10.8)
[2020-10-17 12:02] LABS: Levetiracetam Keppra <1.0 mcg/mL (12.0-46.0)
== END 2020-10-13 10:28 | disposition home or self-care (01) ==
PROVIDERS: Emergency Provider Emergency Medicine; PCP Physician Assistant
DX: R56.9 Unspecified convulsions (principal); Z79.899 Other long term (current) drug therapy; Z20.822 Contact with and (suspected) exposure to COVID-19
CPT/HCPCS: 36415; 70450; 71045; 72125; 74176; 80048; 80076; 80164; 80177; 83690; 84484; 85025; 87635; 93005; 96360; 96372; 99284; J2060

== ENCOUNTER 2020-10-13 18:02 | Inpatient (IN) | payer OTHER, SELFPAY ==
[2020-10-13 19:48] VITALS: BP 131/67; PULSE 81; RESP 18; TEMP 37.4; O2SAT 96
[2020-10-13 20:03] VITALS: BP 131/67; PULSE 87; RESP 18; TEMP 37.4; O2SAT 96; BMI 26.9
[2020-10-13 20:27] LABS: Basophils Percent Auto 0.1 % (0-2); Hematocrit 39.2 % (42-52); Hemoglobin 13.6 g/dl (14.0-18.0); Imm Gran Abs Auto 0.05 X10*3/uL (0.00-0.03); Imm Gran Pct Auto 0.3 % (0.0-0.4); Lymphocytes Absolute Auto 2.8 X10*3/uL (1.2-4.9); Lymphocytes Percent Auto 18.4 % (20-40); MANUAL DIFF FLAG NO; Mean Corpuscular HGB Conc 34.7 g/dl (31.0-36.0); Mean Corpuscular Hemoglobin 29.9 pg (27.0-33.0); Mean Corpuscular Volume 86.2 fL (80-98); Mean Platelet Volume 9.2 fL (9.4-12.4); Monocytes Absolute Auto 1.5 X10*3/uL (0.1-1.2); Monocytes Percent Auto 9.7 % (2-11); Neutrophils Percent Auto 71.5 % (45-73); Platelet Count 315 X10*3/uL (160-400); Red Blood Count 4.55 X10*6/uL (4.60-5.80); White Blood Count 15.4 X10*3/uL (4.8-10.8)
[2020-10-13] MEDS: levETIRAcetam in NaCl (iso-os) 1,500 MG/100 ML PIGGYBACK 400 MG IV (20:40)
[2020-10-13] MEDS: Divalproex Sodium 500 MG TABLET.DR PO (20:40)
[2020-10-13 20:42] LABS: Lactic Acid 1.2 mmol/L (0.5-2.0)
[2020-10-13 20:45] LABS: Anion Gap 15 (12-20); Blood Urea Nitrogen 8 mg/dL (9-16); Carbon Dioxide 22 mmol/L (22-29); Chloride 106 mmol/L (96-108); Creatinine Clr Calc Pharmacy 118.6; Estimated Glomerular Filt Rate > 60; Glucose Random 90 mg/dL (60-115); Potassium 3.8 mmol/l (3.3-5.1); Sodium 139 mmol/L (135-145)
--- NOTE | 2020-10-13 21:45 | ED_ITS ---
HPI - Seizure General Chief Complaint: Seizure Stated Complaint: ?Seizure Time Seen by Provider: 10/13/20 19:51 Source: patient Mode of arrival: ambulatory Limitations: no limitations History of Present Illness HPI Narrative: Patient comes to emergency room complaining of a 2nd seizure. Patient was seen earlier this morning for a seizure. Patient received 2 mg of Ativan, 500 mg of Depakote, and a 1L bolus of normal saline. Patient was doing well and then discharged home. At home today, patient had another seizure. Patient states that he does not remember what happened, patient remembers waking up in the emergency room. Patient's mother found him unresponsive on the floor, patient denies incontinence, states that he bit his tongue again. Patient states that he is very good at taking his medications, does not miss any doses of his seizure medications. Patient takes Depakote 250 mg in the morning and 500 at night, and Keppra 1000 mg b.i.d. complaint: seizure Seizure History: Yes Place: Home Related Data Home Medications Medication Instructions Recorded Confirmed albuterol sulfate mg INHALATION 06/21/20 08/19/20 aluminum-mag hydroxide-simethicone ml PO 06/21/20 08/19/20 200 mg-200 mg-20 mg/5 mL oral susp jjabxxklii-lwwwmikinvywv-toenchmi 1 cap PO Q8H PRN 06/21/20 08/19/20 50 mg-325 mg-40 mg capsule carvedilol 3.125 mg tablet 3.125 mg PO BID 06/21/20 08/19/20 divalproex 250 mg tablet,delayed 250 mg PO BID tab 06/21/20 08/19/20 release fluconazole 200 mg tablet 200 mg PO DAILY 06/21/20 08/19/20 fluticasone propionate 50 INTRANASAL 06/21/20 08/19/20 mcg/actuation nasal spray,suspension levetiracetam 1,000 mg tablet 1,000 mg PO BID 06/21/20 08/19/20 midodrine 2.5 mg tablet 2.5 mg PO BID 06/21/20 08/19/20 nystatin 100,000 unit/mL oral PO 06/21/20 08/19/20 suspension omalizumab 150 mg/mL subcutaneous mg SUBCUT 06/21/20 08/19/20 syringe prednisone 20 mg tablet 20 mg PO BID 06/21/20 08/19/20 tiotropium bromide 2.5 INHALATION 06/21/20 08/19/20 mcg/actuation mist for inhalation albuterol sulfate 90 mcg/actuation 2 puff INHALATION Q4H PRN g 09/27/20 aerosol inhaler Previous Rx's Medication Instructions Recorded albuterol sulfate 90 mcg/actuation 2 puff PO Q4H PRN #8.5 g 07/08/20 aerosol inhaler pantoprazole 40 mg tablet,delayed 40 mg PO DAILY #90 tab 07/08/20 release sertraline 100 mg tablet 100 mg PO DAILY #90 tab 07/08/20 aspirin 81 mg tablet,delayed 81 mg PO DAILY 90 Days #90 tab 08/19/20 release lisinopril 10 mg tablet 10 mg PO DAILY 90 Days #90 tab 08/19/20 atorvastatin 40 mg tablet 40 mg PO DAILY #30 tab 09/02/20 albuterol sulfate 90 mcg/actuation 2 puff INHALATION Q6H PRN 30 Days 09/27/20 aerosol inhaler #8.5 g montelukast 10 mg tablet 10 mg PO BEDTIME #90 tab 10/04/20 Allergies Allergy/AdvReac Type Severity Reaction Status Date / Time cat dander [CATS] Allergy Mild GENERALIZED Verified 09/29/20 08:56 ALLERGY SYMPTOMS dog dander [DOGS] Allergy Mild GENERALIZED Verified 09/29/20 08:56 ALLERGY SYMPTOMS tree and shrub pollen [TREE] Allergy Mild GENERALIZED Verified 09/29/20 08:56 ALLERGY SYMPTOMS FROM [place] Review of Systems Review of Systems: Constitutional : No Weight loss, No Fever, No Chills, No Night Sweats, No Fatigue, No Malaise ENT/Mouth : No Hearing loss, No Ear Pain, No Nasal Congestion, No Sinus Pain, No Hoarseness, No sore throat, No Rhinorrhea, No Swallowing Difficulty Eyes: No Eye Pain, No Swelling, No Redness, No Foreign Body, No Discharge, No Vision Changes Cardiovascular : No Chest Pain, No SOB, No Dyspnea on Exertion, No Orthopnea, No Edema, No Palpitations Respiratory : No Cough, No Sputum, No Wheezing, No Smoke Exposure, No Dyspnea Gastrointestinal : No Nausea, No Vomiting, No Diarrhea, No Constipation, No abdominal Pain, No Hematochezia, No Melena Genitourinary : no irregular bleeding, No Dysuria, No Urinary Frequency, No Hematuria, No Urinary Incontinence, No Urgency, No Flank Pain, No Urinary Flow Changes, No Hesitancy Musculoskeletal : No joint pain, No Myalgias, No Joint Swelling Skin : No Skin Lesions, No rash Neuro : No Weakness, No Numbness, No Paresthesias, complaining of 2 seizures today Psych : No Anxiety/Panic, No Depression, No SI/HI/AH/VH, No Social Issues, Heme/Lymph: No Bruising, No Bleeding,No Lymphadenopathy Endocrine : No Polyuria, No Polydipsia, No Temperature Intolerance [facility] Past Medical History Medical History Asthma Myocardial infarct Seizures Surgical History History of cholecystectomy Family History Family History Maternal Grandmother Emphysema, unspecified Father Diabetes Mother No problems noted. Social History Social History Alcohol intake: never Smoking Status: Never smoker Use of substances other than those prescribed or required for medical reasons: Yes Substance Use Type: Marijuana Advance Directives: No Advance Directives Information Provided: No Physical Exam Vital Signs: Vital Signs: Last Vital Signs Temp 99.3 F 10/13/20 22:00 Pulse 81 10/13/20 22:00 Resp 18 10/13/20 22:00 BP 102/64 10/13/20 22:00 Pulse Ox 97 10/13/20 22:00 Body Mass Index 26.9 Appearance: Alert. Oriented X3. No acute distress. Eyes: Pupils equal, round and reactive to light. ENT: Pharynx normal. Bite edward to bilateral sides of the tongue, no lacerations Neck: Normal inspection. Neck supple. No lymph nodes noted. No crepitus CVS: Normal heart rate and rhythm. Pulses normal. Normal S1 and S2 Respiratory: No respiratory distress. Breath sounds normal. No Wheezing. No rales Abdomen: Soft and nontender. No rigidity. No distention. good BS x4 Skin: Skin warm and dry. Normal skin color. Normal skin turgor. Extremities: No lower extremity edema. No lower extremity edema. No Lacerations. No Rash Neuro: Oriented X 3. No motor deficit. No sensory deficit. Moving all extermities. No slurred speech. Course Course Course Narrative: Today is the patient's 2nd visit for seizures. At this time, patient is asymptomatic, however it is unusual for the patient to have more than 2 seizures per day. I discussed the patient with our hospitalist, patient being admitted for observation. On the 2nd visit to the ER, patient got divalproex 500 mg p.o. and Keppra 1500 mg IV. I discussed the patient with Dr. Carlos A Kaufman, patient being admitted for observation. While patient was morning, patient started feeling short of breath, started having wheezing, albuterol neb was given MDM - Seizure Lab Data Result diagrams: 10/13/20 20:19 10/13/20 20:19 Labs: Lab Results 10/13/20 10/13/20 10/13/20 Range/Units 20:19 20:19 20:19 WBC 15.4 H (4.8-10.8) X10*3/uL RBC 4.55 L (4.60-5.80) X10*6/uL Hgb 13.6 L (14.0-18.0) g/dl Hct 39.2 L D (42-52) % MCV 86.2 (80-98) fL MCH 29.9 (27.0-33.0) pg MCHC 34.7 (31.0-36.0) g/dl RDW 13.0 (11.0-16.0) % Plt Count 315 D (160-400) X10*3/uL MPV 9.2 L (9.4-12.4) fL Immature Gran % (Auto) 0.3 (0.0-0.4) % Neut % (Auto) 71.5 (45-73) % Lymph % (Auto) 18.4 L (20-40) % [place] % (Auto) 9.7 (2-11) % Eos % (Auto) 0.0 (0-4) % Baso % (Auto) 0.1 (0-2) % Lymph # (Auto) 2.8 (1.2-4.9) X10*3/uL [place] # (Auto) 1.5 H (0.1-1.2) X10*3/uL Eos # (Auto) 0.0 (0.0-0.4) X10*3/uL Baso # (Auto) 0.0 (0.0-0.2) X10*3/uL Abs Immat Gran (auto) 0.05 H (0.00-0.03) X10*3/uL Absolute Neuts (auto) 11.0 H (2.0-8.3) X10*3/uL Absolute Nucleated RBC 0.000 (0.0-0.012) X10*3/uL Nucleated RBC % (auto) 0.0 (0.0-0.2) /100WBC Sodium 139 (135-145) mmol/L Potassium 3.8 (3.3-5.1) mmol/l Chloride 106 (96-108) mmol/L Carbon Dioxide 22 (22-29) mmol/L Anion Gap 15 (12-20) BUN 8 L (9-16) mg/dL Creatinine 0.72 (0.5-1.4) mg/dL Estim Creat Clear Calc 118.6 Estimated GFR > 60 Random Glucose 90 D (60-115) mg/dL Lactic Acid 1.2 (0.5-2.0) mmol/L Calcium 9.0 D (8.4-10.2) mg/dL Discharge Plan Discharge Clinical Impression: Seizures, Asthma Patient Disposition: Admitted As Inpatient
[2020-10-13 22:00] VITALS: BP 102/64; PULSE 81; RESP 18; TEMP 37.4; O2SAT 97
[2020-10-13 23:40] VITALS: BP 131/71; PULSE 79; RESP 17; TEMP 37.2; O2SAT 97
[2020-10-13] MEDS: Albuterol Sulfate (0.083%) 2.5 MG/3 ML VIAL.NEB 5 MG INHALE (23:58)
[2020-10-13 23:59] VITALS: PULSE 75; O2SAT 96
[2020-10-14] VITALS (10 sets, daily range): BP systolic 117–130; BP diastolic 48–75; PULSE 62–83; RESP 16–18; TEMP 36.7–37; O2SAT 95–98
--- NOTE | 2020-10-14 00:18 | PM.IMHP ---
History of Present Illness Date of Service: 10/14/20 Chief Complaint: Seizures 39 y/o male with significant PMHX of Uncontrolled Seizures who presented to the hospital after 2 episodes of seizures today. Per history provided by the patient today at 4 am was found by cousin on the floor, having tonic clonic seizures and bleeding from mouth for what was sent to the ED for further evaluation. Here patient was given ativan 2g, depakote 500 mg and one bolus of NS with improvement of patient's symptoms. Patient was dicharged home but later at 3 pm was witnessed by mother that had another episodes of tonic clonic seizures and bitting of his tongue for what was brought once again to the ED. CT head done which shows no evidence of any acute intracranial pathology, depakote levels therapeutic and Keppra levels pending. Patient given one dose of Keppra 1500 mg and one dose of Depakote 500 mg. Decision for admission given. Patient seen and examined at the bedside, laying down in bed in no acute distress. Mild weakness of bilateral UE and LE present which patient reports has been improving slowly after last seizure episode. Vital are stable. Decision for Obsevation made. PMHX: Asthma Myocardial infarct Seizures Sleep apnea on CPAP PSx: History of cholecystectomy Toxic habits: Smoker No hx of alcohol abuse of IVDA Review of Systems Constitutional: Constitutional: Reports weakness Neurologic: Reports seizure-like activity and Reports weakness PMFSH Medical History Asthma Myocardial infarct Seizures Functional capacity: independent ambulation Family History Maternal Grandmother Emphysema, unspecified Father Diabetes Mother No problems noted. Family history: reviewed and not pertinent Surgical History History of cholecystectomy Social History Alcohol intake: never Smoking Status: Never smoker Use of substances other than those prescribed or required for medical reasons: Yes Substance Use Type: Marijuana Advance Directives: No Advance Directives Information Provided: No Meds Allergies Allergy/AdvReac Type Severity Reaction Status Date / Time cat dander [CATS] Allergy Mild GENERALIZED Verified 09/29/20 08:56 ALLERGY SYMPTOMS dog dander [DOGS] Allergy Mild GENERALIZED Verified 09/29/20 08:56 ALLERGY SYMPTOMS tree and shrub pollen [TREE] Allergy Mild GENERALIZED Verified 09/29/20 08:56 ALLERGY SYMPTOMS FROM [place] TRE[place] Home Medications Medication Instructions Recorded Confirmed Type hlkqcfrfrl-rxzwhjhayoatd-edgxvvow 1 cap PO Q8H PRN 06/21/20 10/13/20 History 50 mg-325 mg-40 mg capsule albuterol sulfate 3 ml INHALATION Q6H 10/13/20 10/13/20 History albuterol sulfate [ProAir HFA] 2 puff PO Q6H PRN 10/13/20 10/13/20 History atorvastatin 40 mg PO BEDTIME 10/13/20 History carvedilol 1 tab PO BID 10/13/20 10/13/20 History divalproex 250 mg PO DAILY 10/13/20 10/13/20 History divalproex 500 mg PO BEDTIME 10/13/20 10/13/20 History fluconazole 1 tab PO DAILY 10/13/20 10/13/20 History levetiracetam 1 tab PO BID 10/13/20 10/13/20 History lisinopril 1 tab PO DAILY 10/13/20 10/13/20 History midodrine 1 tab PO BID 10/13/20 10/13/20 History montelukast 1 tab PO BEDTIME 10/13/20 10/13/20 History omalizumab [Xolair] mg SUBCUT 10/13/20 History pantoprazole 1 tab PO DAILY 10/13/20 10/13/20 History tiotropium bromide [Spiriva 2 puff PO DAILY 10/13/20 10/13/20 History Respimat] Physical Exam Vital Signs and Narrative: Vital Signs: Last Vital Signs Temp 98.9 F 10/13/20 23:40 Pulse 75 10/13/20 23:59 Resp 17 10/13/20 23:40 BP 131/71 10/13/20 23:40 Pulse Ox 97 10/13/20 23:40 Body Mass Index 26.9 Const: General: cooperative, comfortable and no acute distress Orientation/consciousness: oriented to person, oriented to place and oriented to time HENMT: Head: Yes normal to inspection Eyes: General: appearance normal, both eyes and all related structures Neck: Yes normal visual inspection Chest: Chest palpation & inspection: normal inspection of the chest Resp: Effort & Inspection: normal respiratory effort Auscultation: clear to auscultation bilaterally Cardio: Jugular venous distension: no JVD Rate: regular rate Rhythm: regular rhythm Heart sounds: S1 normal heart sound present and S2 normal heart sound present GI: Inspection: Yes normal to inspection Neuro: General: oriented to person, oriented to place and oriented to time Cognition (Neuro): normal cognition Motor exam (neuro): Other motor observations present (decreased motor strength in bilateral UE and LE 4/5) Extrem: General: Yes normal to inspection Psych: Appearance: grossly normal Results Labs CBC and Chem 7: 10/13/20 20:19 10/13/20 20:19 Labs: Laboratory Results - last 24 hr 10/13/20 10/13/20 10/13/20 20:19 20:19 20:19 MCV 86.2 MCH 29.9 MCHC 34.7 RDW 13.0 Plt Count 315 D MPV 9.2 L Immature Gran % (Auto) 0.3 Neut % (Auto) 71.5 Lymph % (Auto) 18.4 L [place] % (Auto) 9.7 Eos % (Auto) 0.0 Baso % (Auto) 0.1 Lymph # (Auto) 2.8 [place] # (Auto) 1.5 H Eos # (Auto) 0.0 Baso # (Auto) 0.0 Abs Immat Gran (auto) 0.05 H Absolute Neuts (auto) 11.0 H Absolute Nucleated RBC 0.000 Nucleated RBC % (auto) 0.0 Anion Gap 15 Estim Creat Clear Calc 118.6 Estimated GFR > 60 Random Glucose 90 D Lactic Acid 1.2 Calcium 9.0 D Assessment and Plan (1) Intractable seizure disorder: Status: Acute Continue with Keppra and Depakote home dose Follow up Keppra levels in the am Neurochecks Q4 hrs Observation Neurology consult in the am (2) Asthma: Status: Acute continue with nebulizer home treatment (3) Hx of myocardial infarction: Status: Acute continue with lisinopril home dose continue with carvedilol home dose (4) GERD (gastroesophageal reflux disease): Status: Acute continue with PPI home dose (5) Orthostatic hypotension: Status: Acute continue with midodrine home dose (6) Psychotic disorder: Status: Acute continue with sertraline home dose Rest of the home meds to be confirmed with outside pharmacy
[2020-10-14 01:13] LABS: COVID-19 Test Negative (Negative)
--- NOTE | 2020-10-14 01:49 | PC.NURSE ---
PT RESTING IN BED SEIZURE PRECAUTIONS MAINTAINED. NO SEIZURE ACTIVITY SINCE ARRIVAL TO ED. AWAITING BED ASSIGNMENT FOR ADMISSION. AWARE OF PLAN OF CARE.
[2020-10-14] MEDS: Omeprazole 20 MG CAPSULE.DR PO (05:59)
[2020-10-14] MEDS: Aspirin Enteric Coated 81 MG TABLET.DR PO (09:43)
[2020-10-14] MEDS: levETIRAcetam 1,000 MG TABLET 1000 MG PO ×2 (09:43→22:24)
[2020-10-14] MEDS: Midodrine HCl 2.5 MG TABLET PO ×2 (09:43→22:24)
[2020-10-14] MEDS: Divalproex Sodium 250 MG TABLET.DR PO (09:45)
[2020-10-14] MEDS: carvediloL 3.125 MG TABLET PO ×2 (09:45→22:24)
[2020-10-14] MEDS: Fluconazole 100 MG TABLET 200 MG PO (09:45)
[2020-10-14] MEDS: 0.9 % Sodium Chloride Flush 3 ML SYRINGE IVFLUSH ×2 (09:46→17:45)
--- NOTE | 2020-10-14 09:46 | MHC.CM.PN ---
Attempted to meet with patient in regards to discharge planning. Nursing care being provided. Will attempt to meet again. Continue to monitor for d/c needs.
--- NOTE | 2020-10-14 10:03 | MHC.CM.PN ---
Met with patient in regards to discharge planning. Patient lives with his mother, ambulates independently and had no services prior to coming to the hospital. No services anticipated to be needed because patient is not homebound. PCP verified. Patient has a HCP and states mother has a copy. Will attempt to obtain a copy. Obs notice explained and signed. Patient's family will transport him home when medically stable. Continue to monitor for d/c needs.
[2020-10-14 10:47] LABS: MANUAL DIFF FLAG NO
[2020-10-14 10:52] LABS: Basophils Percent Auto 0.2 % (0-2); Eosinophils Absolute Auto 0.1 X10*3/uL (0.0-0.4); Eosinophils Percent Auto 0.9 % (0-4); Hematocrit 37.6 % (42-52); Hemoglobin 12.7 g/dl (14.0-18.0); Imm Gran Abs Auto 0.02 X10*3/uL (0.00-0.03); Imm Gran Pct Auto 0.2 % (0.0-0.4); Lymphocytes Absolute Auto 2.7 X10*3/uL (1.2-4.9); Lymphocytes Percent Auto 29.6 % (20-40); Mean Corpuscular HGB Conc 33.8 g/dl (31.0-36.0); Mean Corpuscular Hemoglobin 29.3 pg (27.0-33.0); Mean Corpuscular Volume 86.8 fL (80-98); Mean Platelet Volume 9.2 fL (9.4-12.4); Monocytes Absolute Auto 0.8 X10*3/uL (0.1-1.2); Monocytes Percent Auto 9.3 % (2-11); Neutrophils Absolute Auto 5.3 X10*3/uL (2.0-8.3); Neutrophils Percent Auto 59.8 % (45-73); Platelet Count 286 X10*3/uL (160-400); Red Blood Count 4.33 X10*6/uL (4.60-5.80); White Blood Count 8.9 X10*3/uL (4.8-10.8)
[2020-10-14] MEDS: Sertraline HCL 100 MG TABLET PO (10:57)
[2020-10-14 11:13] LABS: Anion Gap 14 (12-20); Blood Urea Nitrogen 10 mg/dL (9-16); Carbon Dioxide 24 mmol/L (22-29); Chloride 107 mmol/L (96-108); Creatinine Clr Calc Pharmacy 112.3; Estimated Glomerular Filt Rate > 60; Glucose Random 96 mg/dL (60-115); Potassium 3.7 mmol/l (3.3-5.1); Sodium 141 mmol/L (135-145)
--- NOTE | 2020-10-14 11:21 | PC.NURSE ---
pt seen by dr phillips this morning,waiting to speak with pts neurologist for dispo
[2020-10-14] MEDS: Albuterol Sulfate 90 MCG 8 GM INHALER 2 PUFF INHALE (12:28)
--- NOTE | 2020-10-14 13:27 | P.CNNE_ITS ---
History of Present Illness Data of Consult Service Date: 10/14/20 Primary Care Provider: Saúl Maier PA-C 39 years old man with epilepsy following Dr. Powers. Apparently he started h aving seizures in 2018 and his seizures were generalized tonic-clonic type. He had 2 generalized seizures yesterday and 1 or 2 more during last few months was unclear. He did not have recollection of what had happened. Review of Systems Review of Systems: No recent cold or flu-like illness PMFSH Past Medical History Medical History Asthma Myocardial infarct Seizures Functional capacity: independent ambulation Family History Family History Maternal Grandmother Emphysema, unspecified Father Diabetes Mother No problems noted. Family history: reviewed and not pertinent Surgical History Surgical History History of cholecystectomy Social History Social History Alcohol intake: never Smoking Status: Never smoker Substance Use Type: Marijuana service: No Current occupational status: disabled Meds Allergies Allergy/AdvReac Type Severity Reaction Status Date / Time cat dander [CATS] Allergy Mild GENERALIZED Verified 09/29/20 08:56 ALLERGY SYMPTOMS dog dander [DOGS] Allergy Mild GENERALIZED Verified 09/29/20 08:56 ALLERGY SYMPTOMS tree and shrub pollen [TREE] Allergy Mild GENERALIZED Verified 09/29/20 08:56 ALLERGY SYMPTOMS FROM PINE TREES Home Medications Medication Instructions Recorded Confirmed Type rolhaisbqd-fdmbraxyjudjj-bfgtmioa 1 cap PO Q8H PRN 06/21/20 10/13/20 History 50 mg-325 mg-40 mg capsule albuterol sulfate 3 ml INHALATION Q6H 10/13/20 10/13/20 History albuterol sulfate [ProAir HFA] 2 puff PO Q6H PRN 10/13/20 10/13/20 History atorvastatin 40 mg PO BEDTIME 10/13/20 History carvedilol 1 tab PO BID 10/13/20 10/13/20 History divalproex 250 mg PO DAILY 10/13/20 10/13/20 History divalproex 500 mg PO BEDTIME 10/13/20 10/13/20 History fluconazole 1 tab PO DAILY 10/13/20 10/13/20 History levetiracetam 1 tab PO BID 10/13/20 10/13/20 History lisinopril 1 tab PO DAILY 10/13/20 10/13/20 History midodrine 1 tab PO BID 10/13/20 10/13/20 History montelukast 1 tab PO BEDTIME 10/13/20 10/13/20 History omalizumab [Xolair] mg SUBCUT 10/13/20 History pantoprazole 1 tab PO DAILY 10/13/20 10/13/20 History tiotropium bromide [Spiriva 2 puff PO DAILY 10/13/20 10/13/20 History Respimat] Physical Exam Vital Signs: Vital Signs: Last Vital Signs Temp 98.1 F 10/14/20 06:05 Pulse 83 10/14/20 12:29 Resp 18 10/14/20 06:05 BP 117/75 10/14/20 09:46 Pulse Ox 98 10/14/20 06:05 Body Mass Index 26.9 He was alert and awake with normal spontaneity of speech fluency comprehension a nd affect. Pupils were equal and reactive to light and extraocular muscles were intact. Visual wright are full. Face was symmetrical. There was no pronator drift. Deep tendon reflexes were 1+ with flexor plantars. Affect was normal. Results Labs CBC & Chem 7: 10/14/20 10:43 10/14/20 10:43 Labs: Short CBC 10/13/20 10/14/20 Range/Units 20:19 10:43 WBC 15.4 H 8.9 (4.8-10.8) X10*3/uL Hgb 13.6 L 12.7 L (14.0-18.0) g/dl Hct 39.2 L D 37.6 L (42-52) % Plt Count 315 D 286 (160-400) X10*3/uL BMP 10/13/20 10/14/20 20:19 10:43 Sodium 139 141 Potassium 3.8 3.7 Chloride 106 107 Carbon Dioxide 22 24 BUN 8 L 10 Creatinine 0.72 0.76 Calcium 9.0 D 9.0 Previously his brain MRI had revealed atypical FLAIR signal in bitemporal areas. This time his noncontrast head CT was okay. Assessment and Plan (1) Seizures: Status: Acute 39 years old man with generalized tonic-clonic seizure of unknown etiology that started couple of years ago. His previous brain MRI reveal bitemporal signal abnormality of non specific nature but it was not completely evaluated. At this time my recommendation is to continue levetiracetam 1500 mg twice a day and Keppra 500 mg twice a day. With some sedation on board such as lorazepam 2 mg, a good MRI of brain with and without contrast is recommended.
--- NOTE | 2020-10-14 17:00 | PM.EVENT ---
Event Note Date of Service: 10/14/20 Event Note: patient being admitted for seizure patient seen and examined at bedside no more seizure since last night on exam alert abdomen soft CVS rate and rhythm regular lungs clear admitted for 2 episodes of seizure, seen by Neurology recommended Keppra 1500 mg b.i.d. and Depakote 500 mg b.i.d., neurology recommended MRI brain with contrast, will follow-up closely
[2020-10-14] MEDS: Albuterol/Iprat 2.5/0.5MG 3 ML AMPUL.NEB INHALE (21:45)
[2020-10-14] MEDS: Montelukast Sodium 10 MG TABLET PO (22:24)
[2020-10-14] MEDS: Divalproex Sodium 500 MG TABLET.DR PO (22:26)
[2020-10-15] MEDS: 0.9 % Sodium Chloride Flush 3 ML SYRINGE IVFLUSH (01:21)
[2020-10-15 01:48] VITALS: BP 111/58; PULSE 59; RESP 16; O2SAT 96
[2020-10-15] MEDS: Albuterol/Iprat 2.5/0.5MG 3 ML AMPUL.NEB INHALE (03:11)
[2020-10-15 03:14] VITALS: PULSE 72; O2SAT 96
--- NOTE | 2020-10-15 03:15 | PC.NURSE ---
PT AMBULATES TO AND FROM RESTROOM INDEPENDENTLY W/STEADY GAIT. PT HAS NOT HAD ANY SEIZURE LIKE ACTIVITY WHILE IN THE CARE OF THIS RN. PT HAS HAD PRN UPDRAFT X 2, FOR STATED TIGHTNESS AND WHEEZING, LS W/MINIMAL EXP LOWER LOBE BILAT FAINT WHEEZING. PLAN OF CARE FOR MRI IN THE MORNING
--- NOTE | 2020-10-15 07:12 | PC.NURSE ---
report taken from [place] rn pt admitted for seizures, has not had any seizure activity while in hospital. pt is sitting up in stretcher, alert. appears to be in good spirits, given breakfast. plan for mri at somepoint today per previous shift rn. armas.
--- NOTE | 2020-10-15 08:33 | PC.NURSE ---
pharmacy called about changes made in seizure medications, pharmacist will consult w hospitalist about mar.
[2020-10-15] MEDS: Fluconazole 100 MG TABLET 200 MG PO (09:01)
[2020-10-15] MEDS: Aspirin Enteric Coated 81 MG TABLET.DR PO (09:01)
[2020-10-15 09:02] VITALS: BP 111/58
[2020-10-15] MEDS: levETIRAcetam 1,000 MG TABLET 1500 MG PO (09:02)
[2020-10-15 09:03] VITALS: BP 111/58; PULSE 72
[2020-10-15] MEDS: Sertraline HCL 100 MG TABLET PO (09:03)
[2020-10-15] MEDS: carvediloL 3.125 MG TABLET PO (09:03)
[2020-10-15] MEDS: Midodrine HCl 2.5 MG TABLET PO (09:03)
[2020-10-15] MEDS: Divalproex Sodium 500 MG TABLET.DR PO (09:03)
--- NOTE | 2020-10-15 09:32 | PC.NURSE ---
medicated per emar, tolerating po w/o issue, seen by hospitalist, meds changed. plan for mri and discharge if mri clear.
[2020-10-15 12:00] VITALS: BP 133/70; PULSE 57; RESP 18; TEMP 36.3; O2SAT 95
--- NOTE | 2020-10-15 13:32 | P.DS_ITS ---
DS: Providers Provider Date of Service: 10/24/20 Date of admission: 10/14/20 00:13 Primary care physician: Saúl Maier PA-C Consults: 10/14/20 05:57 Consult to Neurology Routine Consulting Provider: [facility] Reason for consultation: intractable seizures Has provider been notified: No DS: Diagnosis Discharge Diagnosis (1) Seizures: Status: Acute DS: Medications Discharge Medications Home Medications: Home Medications Medication Instructions Recorded Confirmed skpcsajypm-ikmkkkemdmejl-cszczbgu 1 cap PO Q8H PRN 06/21/20 10/13/20 50 mg-325 mg-40 mg capsule Spiriva Respimat 2 puff PO DAILY 10/13/20 10/13/20 Xolair mg SUBCUT 10/13/20 albuterol sulfate 3 ml INHALATION Q6H 10/13/20 10/13/20 albuterol sulfate [ProAir HFA] 2 puff PO Q6H PRN 10/13/20 10/13/20 atorvastatin 40 mg PO BEDTIME 10/13/20 carvedilol 1 tab PO BID 10/13/20 10/13/20 fluconazole 1 tab PO DAILY 10/13/20 10/13/20 lisinopril 1 tab PO DAILY 10/13/20 10/13/20 midodrine 1 tab PO BID 10/13/20 10/13/20 montelukast 1 tab PO BEDTIME 10/13/20 10/13/20 pantoprazole 1 tab PO DAILY 10/13/20 10/13/20 Previous Rx's Medication Instructions Recorded sertraline 100 mg tablet 100 mg PO DAILY #90 tab 07/08/20 aspirin 81 mg tablet,delayed 81 mg PO DAILY 90 Days #90 tab 08/19/20 release divalproex 500 mg PO BID #60 tab 10/15/20 levetiracetam 1,500 mg PO BID #60 tab 10/15/20 DS: Summary Hospital Course Hospital Course: HPI 39 y/o male with significant PMHX of Uncontrolled Seizures who presented to the hospital after 2 episodes of seizures today. Per history provided by the patient today at 4 am was found by cousin on the floor, having tonic clonic seizures and bleeding from mouth for what was sent to the ED for further evaluation. Here patient was given ativan 2g, depakote 500 mg and one bolus of NS with im provement of patient's symptoms. Patient was dicharged home but later at 3 pm was witnessed by mother that had another episodes of tonic clonic seizures and bitting of his tongue for what was brought once again to the ED. CT head done which shows no evidence of any acute intracranial pathology, depakote levels therapeutic and Keppra levels pending. Patient given one dose of Keppra 1500 mg and one dose of Depakote 500 mg. Decision for admission given. Patient seen and examined at the bedside, laying down in bed in no acute distress. Mild weakness of bilateral UE and LE present which patient reports has been improving slowly after last seizure episode. Vital are stable. Decision for Obsevation made. Hospital course 39-year-old male admitted with seizure, has known history of seizure disorder, patient was continued on Keppra and Depakote, patient was seen by Neurology recommended increasing Keppra to 1500 mg b.i.d. and Depakote 500 mg b.i.d., patient remains stable, patient has no seizure during hospitalization, neurology recommended MRI as outpatient, patient was scheduled for MRI as outpatient, patient was stable discharged home on Keppra 1500 mg b.i.d. and Depakote 500 mg b.i.d., patient will follow-up neurology Dr. quiroga as outpatient Time Spent with Patient Time attestation: Total time spent providing and/or coordinating discharge services: Discharge coordination time: Greater than 30 minutes Physical Exam Vital Signs: Vital Signs: Last Vital Signs Temp 97.4 F 10/15/20 12:00 Pulse 57 10/15/20 12:00 Resp 18 10/15/20 12:00 BP 133/70 10/15/20 12:00 Pulse Ox 95 10/15/20 12:00 Body Mass Index 26.9 DS: Data Data Completed and Pending Labs on day of discharge: Laboratory Tests 10/13/20 10/13/20 10/13/20 20:19 20:19 20:19 WBC 15.4 H RBC 4.55 L Hgb 13.6 L Hct 39.2 L D MCV 86.2 MCH 29.9 MCHC 34.7 RDW 13.0 Plt Count 315 D MPV 9.2 L Immature Gran % (Auto) 0.3 Neut % (Auto) 71.5 Lymph % (Auto) 18.4 L [place] % (Auto) 9.7 Eos % (Auto) 0.0 Baso % (Auto) 0.1 Lymph # (Auto) 2.8 [place] # (Auto) 1.5 H Eos # (Auto) 0.0 Baso # (Auto) 0.0 Abs Immat Gran (auto) 0.05 H Absolute Neuts (auto) 11.0 H Absolute Nucleated RBC 0.000 Nucleated RBC % (auto) 0.0 Sodium 139 Potassium 3.8 Chloride 106 Carbon Dioxide 22 Anion Gap 15 BUN 8 L Creatinine 0.72 Estim Creat Clear Calc 118.6 Estimated GFR > 60 Random Glucose 90 D Lactic Acid 1.2 Calcium 9.0 D COVID-19 (TRINH) COVID-19 [place] 10/14/20 10/14/20 10/14/20 00:50 10:43 10:43 WBC 8.9 RBC 4.33 L Hgb 12.7 L Hct 37.6 L MCV 86.8 MCH 29.3 MCHC 33.8 RDW 13.0 Plt Count 286 MPV 9.2 L Immature Gran % (Auto) 0.2 Neut % (Auto) 59.8 Lymph % (Auto) 29.6 [place] % (Auto) 9.3 Eos % (Auto) 0.9 Baso % (Auto) 0.2 Lymph # (Auto) 2.7 [place] # (Auto) 0.8 Eos # (Auto) 0.1 Baso # (Auto) 0.0 Abs Immat Gran (auto) 0.02 Absolute Neuts (auto) 5.3 Absolute Nucleated RBC 0.000 Nucleated RBC % (auto) 0.0 Sodium 141 Potassium 3.7 Chloride 107 Carbon Dioxide 24 Anion Gap 14 BUN 10 Creatinine 0.76 Estim Creat Clear Calc 112.3 Estimated GFR > 60 Random Glucose 96 Lactic Acid Calcium 9.0 COVID-19 (TRINH) Negative COVID-19 Clin Com See Note Discharge Plan Discharge Anticipated Discharge Date/Time: 10/15/20 12:05 Patient Disposition: Home, Self-Care Referrals: Saúl Maier PA-C [Primary Care Provider] - 1 Week (10/21/2020 2:30pm. Please call and reschedule if you can't keep this appointment.) Discharge Medications: New divalproex 500 mg Tablet,Delayed Release (Dr/Ec) 500 mg PO BID Qty: 60 RF: 0 levetiracetam 1,000 mg Tablet 1,500 mg PO BID Qty: 60 RF: 0 Continued sertraline 100 mg tablet 100 mg PO DAILY Qty: 90 RF: 0 atorvastatin 40 mg tablet 40 mg PO BEDTIME RF: 0 albuterol sulfate 2.5 mg /3 mL (0.083 %) solution for nebulization 3 ml inhalation Q6H RF: 0 fluconazole 200 mg tablet 1 tab PO DAILY RF: 0 lisinopril 10 mg tablet 1 tab PO DAILY RF: 0 montelukast 10 mg tablet 1 tab PO BEDTIME RF: 0 midodrine 2.5 mg tablet 1 tab PO BID RF: 0 albuterol sulfate [ProAir HFA] 90 mcg/actuation HFA aerosol inhaler 2 puff PO Q6H PRN (Reason: dyspnea) RF: 0 Spiriva Respimat 2.5 mcg/actuation mist 2 puff PO DAILY RF: 0 Xolair 150 mg/mL syringe subcut RF: 0 lvtfclbief-xfmtahezynnxy-thco 50-325-40 mg capsule 1 cap PO Q8H PRN (Reason: Migraine Headache) RF: 0 Discontinued divalproex 250 mg tablet,delayed release (DR/EC) 250 mg PO DAILY RF: 0 levetiracetam 1,000 mg tablet 1 tab PO BID RF: 0 divalproex 250 mg tablet,delayed release (DR/EC) 500 mg PO BEDTIME RF: 0 No Action pantoprazole 40 mg tablet,delayed release (DR/EC) 40 mg PO DAILY 90 Days Qty: 90 RF: 2 aspirin 81 mg tablet,delayed release (DR/EC) 81 mg PO DAILY 90 Days Qty: 90 RF: 2 carvedilol 3.125 mg tablet 3.125 mg PO BID 90 Days Qty: 180 RF: 2 Discharge Orders: Discharge Order (Routine); Ordered 10/15/20 Ordered By: Tito Spence Diet: advance to usual diet Activity on Discharge: As tolerated Stand Alone Forms: Patient Portal Discharge page Visit Report Forms: Patient Portal Discharge page Care Plan Goals: prevent seizure Health Concerns: seizure Plan of Treatment: medication adjusted Discharge Date/Time: 10/15/20 13:37
== END 2020-10-15 13:37 | disposition home or self-care (01) | DRG 53 ==
LOC: HO.ED 22:04 → HO.EDOVER 10-14 10:31 → HO.S3 10-14 12:17 → HO.EDOVER 10-14 18:00 → HO.S3 10-14 18:00 → HO.EDOVER 10-15 09:13 → HO.S3 10-15 12:04
PROVIDERS: Admitting Provider Internal Medicine; Emergency Provider Emergency Medicine; PCP Physician Assistant; Visit Provider Internal Medicine
DX: G40.919 Epilepsy, unspecified, intractable, without status epilepticus (principal); F29 Unspecified psychosis not due to a substance or known physiological condition; K21.9 Gastro-esophageal reflux disease without esophagitis; I95.1 Orthostatic hypotension; I25.2 Old myocardial infarction; J45.909 Unspecified asthma, uncomplicated; Z20.822 Contact with and (suspected) exposure to COVID-19; Z79.51 Long term (current) use of inhaled steroids; Z79.82 Long term (current) use of aspirin; Z79.899 Other long term (current) drug therapy
CPT/HCPCS: 36415; 80048; 83605; 85025; 87635; 94640; 99219; 99285; J1953

== ENCOUNTER 2020-10-18 13:17 | Outpatient (REF) | payer OTHER, SELFPAY ==
--- NOTE | 2020-10-18 | MR_ITS ---
EXAMINATION: MR BRAIN WITHOUT AND WITH CONTRAST CLINICAL INFORMATION: Epilepsy. COMPARISON: Head CT from 10/13/2020. Brain MRI dated 11/11/2019. TECHNIQUE: Multiplanar, multisequence imaging of the brain was performed before and after the intravenous administration of 7. mL of Gadavist. FINDINGS: No diffusion abnormalities are identified to suggest an acute or subacute infarct. The ventricles are normal in size. No mass effect or midline shift is seen. No brain parenchymal signal abnormality is noted. No extra-axial fluid collections are seen. The brainstem and cerebellum are normal. There is no abnormal parenchymal or leptomeningeal enhancement. The orbits and pituitary axis structures appear normal. No hippocampal pathology evident. There is nonspecific incomplete suppression of CSF in the choroidal fissures bilaterally. The gradient refocused acquisition demonstrates no pathologic magnetic susceptibility artifact to indicate underlying acute or chronic blood products. The craniovertebral junction, marrow signal, and midline structures are normal. The major intracranial flow voids at the level of the [place] are preserved. The dural venous sinus flow voids are maintained. The mastoid air cells are well aerated. There is a 2 cm retention cyst in the left maxillary sinus and mild mucosal thickening in the right maxillary antrum. MR/MR head/brain wo/w con IMPRESSION: No epileptogenic focus identified. No hippocampal pathology identified. No acute process.
== END 2020-10-18 13:18 | disposition home or self-care (01) ==
LOC: HO.MRI 13:17
PROVIDERS: Visit Provider Psychiatry & Neurology Neurology
DX: G40.909 Epilepsy, unspecified, not intractable, without status epilepticus (principal)
CPT/HCPCS: 70553; A9585

== ENCOUNTER 2020-10-22 07:28 | Outpatient (REF) | payer OTHER, SELFPAY | END 2020-10-22 07:29 | disposition home or self-care (01) | LOC: HO.MDS 07:28 | PROVIDERS: PCP Physician Assistant; Visit Provider Internal Medicine Pulmonary Disease | DX: J45.50 Severe persistent asthma, uncomplicated (principal) | CPT/HCPCS: 96372; J2357 ==

== ENCOUNTER 2020-10-28 08:45 | Outpatient (REF) | payer OTHER, SELFPAY ==
--- NOTE | ~2020-10-28 | US_ITS ---
EXAMINATION: US THYROID CLINICAL INFORMATION: Nontoxic single thyroid nodule COMPARISON: CT cervical spine 10/13/2020. TECHNIQUE: Linear transducer segura-scale and color Doppler examination with attention to the region of the thyroid. FINDINGS: SIZE: Measurements of the thyroid lobes and nodules are given in sagittal, anteroposterior and transverse dimensions respectively. Right Thyroid Lobe: 4.4 x 1.9 x 1.9 cm, volume 8.3 mL. Parenchyma: The gland echotexture is homogeneous. Thyroid vascularity is normal. Left Thyroid Lobe: 4.3 x 2.1 x 1.7 cm, volume 8.0 mL. Parenchyma: The gland echotexture is homogeneous. Thyroid vascularity is normal. Isthmus: 0.6 cm in maximum AP dimension. Estimated total number of nodules greater than or equal to 1 cm: 1. Project Scheduler nodules are described as follows: 1. Location: Right upper pole. Size: 1.2 x 0.9 x 0.3 cm, volume 0.7 mL. Nodule characteristics: Composition: Solid (2). Echogenicity: Very hypoechoic (3). Shape: Not taller than wide (0). Margins: Smooth (0). Echogenic Foci: Peripheral calcifications (2). ACR TI-RADS total points: 7 ACR TI-RADS category: 5 2. Location: Right mid pole. Size: 0.5 x 0.3 x 0.5 cm, volume 0.04 mL. Nodule characteristics: Composition: Solid (2). Echogenicity: Isoechoic (1). Shape: Not taller than wide (0). Margins: Smooth (0). Echogenic Foci: None (0). ACR TI-RADS total points: 3 ACR TI-RADS category: 3 3. Location: Left mid pole. Size: 0.4 x 0.2 x 0.4 cm, volume 0.02 mL. Nodule characteristics: Composition: Solid (2). Echogenicity: Hyperechoic (1). Shape: Not taller than wide (0). Margins: Smooth (0). Echogenic Foci: Macrocalcifications (1). ACR TI-RADS total points: 4 ACR TI-RADS category: 4 4. Location: Left lower pole. Size: 0.3 x 0.2 x 0.4 cm, volume 0.01 mL. Nodule characteristics: Composition: Solid (2). Echogenicity: Hyperechoic (1). Shape: Not taller than wide (0). Margins: 0 Echogenic Foci: Macrocalcifications (1). ACR TI-RADS total points: 4 ACR TI-RADS category: 4 NODES: No lymphadenopathy is seen in the tissue surrounding the thyroid gland. US/US thyroid IMPRESSION: Bilateral thyroid nodules. Fine needle aspiration of the largest nodule in the superior right lobe should be considered. ACR TI-RADS RECOMMENDATIONS: Ultrasound-guided fine-needle aspiration, followup ultrasound, no further follow up. * TR1 (0 point) and TR 2 (2 points): No FNA or follow up * TR3 (3 points): FNA if more than or equal to 2.5 cm in maximum dimension, follow up in 1, 3 and 5 years if 1.5 to 2.4 cm in maximum dimension. * TR4 (4-6 points): FNA if more than or equal to 1.5 cm in maximum dimension, follow up in 1, 2, 3 and 5 years if 1 to 1.4 cm in maximum dimension. * TR5 (more than or equal to 7 points): FNA if more than or equal to 1 cm in maximum dimension, follow up every year for 5 years if 0.5 to 0.9 cm in maximum dimension. * TR3, TR4 or TR5 nodules that are below the size threshold for follow up receive no follow up.
== END 2020-10-28 08:46 | disposition home or self-care (01) ==
LOC: HO.US 08:45
PROVIDERS: Visit Provider Physician Assistant
DX: E04.1 Nontoxic single thyroid nodule (principal)
CPT/HCPCS: 76536

== ENCOUNTER 2020-11-19 07:30 | Outpatient (REF) | payer OTHER, SELFPAY | END 2020-11-19 07:31 | disposition home or self-care (01) | LOC: HO.MDS 07:30 | PROVIDERS: PCP Physician Assistant; Visit Provider Internal Medicine Pulmonary Disease | DX: J45.50 Severe persistent asthma, uncomplicated (principal) | CPT/HCPCS: 96372; J2357 ==

== ENCOUNTER 2020-11-25 08:00 | Outpatient (RCR) | payer OTHER, SELFPAY ==
[2020-11-15 08:16] VITALS: BP 156/79; PULSE 63; RESP 22; O2SAT 93
--- NOTE | 2020-11-15 16:23 | MHC.PT.EP ---
[facility] [place] Office [place] Office [place] Office [address] Colin Og [address] [phone] F: [phone] F: [phone] F: [phone] F: [phone] Physical Therapy Plan of Care Date of Evaluation: 11/15/20 Date of Surgery: Diagnosis: Right shoulder tendonitis Assessment: Pt has reduced shoulder ROM, reduced cervical ROM on the right side due to severe pain. The patient feels like his arm is being squeezed during AROM. He may have nerve impingement from a posterolateral derangement, but he may also have RTC pathology due to several recent falls onto his shoulder during his grand mal seizures. The patient's seizures have not been stabilized as reported by the patient. His last seizure was back to back on October 12 and . Both required hospitalizations. He reports severely disrupted sleep from his shoulder pain. Sleeping posture was reviewed today in addition to sitting posture to relieve the aggravating factors of poor posture. It was recommended the patient put his mattress on the floor to limit injury during seizures. Frequency and Duration: The patient will be seen 1x/week x 4 weeks Short Term Goals: Short Term goals . Pt to be able to report 50% improvement in functional reaching. - Pt to be able to report 50% less pain with getting dressed. 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 4 weeks ? The patient to have 5/5 strength with flexion and abduction to demonstrate functional strength 4 weeks ? The patient to be able to return to all functional reaching, self care ADL's without any limitation from pain or loss of ROM. Treatment Plan: Modalities to reduce pain, spasms and effusion. Manual therapy to restore motion and function. Therapeutic exercise to improve strength and flexibility. Neuromuscular re-education for posture and balance. Therapeutic activities to return to functional activities of daily living. Electronically signed by: Amelia Chase PT DPT Please sign and return to therapist. Thank you for your referral.
--- NOTE | 2021-01-11 14:53 | MHC.PT.DC ---
[facility] [place] Office [place] Office [place] Office [address] Colin Og [address] [phone] F: [phone] F: [phone] F: [phone] F: [phone] Physical Therapy Discharge Report Diagnosis: Right shoulder tendonitis Date of Surgery: Date of Evaluation: 11/15/20 Date of Discharge: 01/11/21 Treatments to Date: 4 Cancellations to Date: No Shows to Date: Discharge Status: Recommend MD Follow-up Discharge Summary: 11/25/20 shoulder abd 40 with severe pain, flexion 44 with pain. Gm/Svp [employer] strength is 60% decreased compared bilaterally Pt has reduced strength and pain with PROM shoulder flexion, resisted bicep and tricep ( C6-7 myotomes) Pt has radicular pain that was not improved with supine or seated PROM. His radicular pain is increased with small cervical movements. In addition he has myotomal weakness in his C6-7 region. Due to the patient's lack of improvement with conservative treatment, I recommend followup with his MD for diagnostic imaging to r/o a cervical derangement. I will put PT on hold until hearing from his MD. Electronically signed by: Amelia Chase PT DPT Please sign and return to therapist. Thank you for your referral.
== END 2021-05-24 08:18 | disposition home or self-care (01) ==
LOC: HO.PT 08:00
PROVIDERS: PCP Physician Assistant; Visit Provider Physician Assistant
DX: M77.8 Other enthesopathies, not elsewhere classified (principal)
CPT/HCPCS: 97110; 97112; 97140; 97163

== ENCOUNTER 2020-12-17 07:24 | Outpatient (REF) | payer OTHER, SELFPAY | END 2020-12-17 07:25 | disposition home or self-care (01) | LOC: HO.MDS 07:24 | PROVIDERS: PCP Physician Assistant; Visit Provider Internal Medicine Pulmonary Disease | DX: J45.50 Severe persistent asthma, uncomplicated (principal) | CPT/HCPCS: 96372; J2357 ==

== ENCOUNTER 2020-12-17 18:35 | Outpatient (REF) | payer OTHER, SELFPAY | END 2020-12-17 18:36 | disposition home or self-care (01) | LOC: HO.MRI 18:35 | PROVIDERS: Visit Provider Physician Assistant | DX: Z13.89 Encounter for screening for other disorder (principal) ==

== ENCOUNTER → 2020-12-24 10:20 | Outpatient (BNVA) | payer OTHER, SELFPAY | PROVIDERS: PCP Physician Assistant; Visit Provider Internal Medicine Pulmonary Disease | DX: J45.50 Severe persistent asthma, uncomplicated (principal); Z91.09 Other allergy status, other than to drugs and biological substances | CPT/HCPCS: 99212 ==

== ENCOUNTER → 2021-01-10 11:20 | Outpatient (BNVA) | payer OTHER, SELFPAY | PROVIDERS: PCP Physician Assistant; Visit Provider Internal Medicine ==

== ENCOUNTER 2021-01-11 06:33 | Outpatient (REF) | payer OTHER, SELFPAY ==
[2021-01-11 07:15] LABS: Hematocrit 43.4 % (42-52); Hemoglobin 14.5 g/dl (14.0-18.0); Mean Corpuscular HGB Conc 33.4 g/dl (31.0-36.0); Mean Corpuscular Hemoglobin 29.8 pg (27.0-33.0); Mean Corpuscular Volume 89.1 fL (80-98); Mean Platelet Volume 9.7 fL (9.4-12.4); Platelet Count 301 X10*3/uL (160-400); Red Blood Count 4.87 X10*6/uL (4.60-5.80); Red Cell Distribution Width 13.1 % (11.0-16.0); White Blood Count 7.9 X10*3/uL (4.8-10.8)
[2021-01-11 07:44] LABS: Alanine Aminotransferase 21 U/L (0-40); Albumin Level 4.7 g/dL (3.5-5.0); Alkaline Phosphatase 47 U/L (39-117); Anion Gap 16 (12-20); Aspartate Amino Transferase 15 U/L (5-37); Bilirubin Total 0.3 mg/dL (0.0-1.0); Blood Urea Nitrogen 12 mg/dL (9-16); Calcium 10.4 mg/dL (8.4-10.2); Carbon Dioxide 23 mmol/L (22-29); Chloride 104 mmol/L (96-108); Cholesterol 220 mg/dL; Estimated Glomerular Filt Rate > 60; Glucose Fasting 123 mg/dL (60-99); HDL Cholesterol 31 mg/dL; Potassium 4.7 mmol/L (3.3-5.1); Sodium 138 mmol/L (135-145); Total Protein 7.2 g/dL (6.5-8.0); Triglycerides 439 mg/dL
[2021-01-11 07:58] LABS: TSH reflex Free T4 1.18 uIU/mL (0.32-4.0)
[2021-01-11 08:01] LABS: Free T4 (Free Thyroxine) 1.06 ng/dL (0.71-1.85); Thyroid Stimulating Hormone 1.13 uIU/mL (0.32-4.0); Vitamin D 25-OH Total 9.8 ng/mL (>30)
[2021-01-11 08:16] LABS: Prostate Specific Antigen Scr 1.14 ng/mL (<0.05-4.0)
[2021-01-12 05:17] LABS: Triiodothyronine T3 Total 111 ng/dL (76-181)
[2021-01-12 10:01] LABS: Immunoglobulin E 265 kU/L (<OR=114)
== END 2021-01-11 06:34 | disposition home or self-care (01) ==
LOC: HO.LAB 06:33
PROVIDERS: Absent Provider Internal Medicine; PCP Physician Assistant; Visit Provider Physician Assistant
DX: R32 Unspecified urinary incontinence (principal); I42.9 Cardiomyopathy, unspecified; I10 Essential (primary) hypertension; J45.40 Moderate persistent asthma, uncomplicated; E55.9 Vitamin D deficiency, unspecified; E04.2 Nontoxic multinodular goiter
CPT/HCPCS: 36415; 80053; 80061; 82306; 82785; 84153; 84439; 84443; 84480; 85027

== ENCOUNTER 2021-01-14 09:57 | Outpatient (REF) | payer OTHER, SELFPAY | END 2021-01-14 09:58 | disposition home or self-care (01) | LOC: HO.MDS 09:57 | PROVIDERS: PCP Physician Assistant; Visit Provider Internal Medicine Pulmonary Disease | DX: J45.50 Severe persistent asthma, uncomplicated (principal) | CPT/HCPCS: 96372; J2182 ==

== ENCOUNTER 2021-02-11 07:39 | Outpatient (REF) | payer OTHER, SELFPAY | END 2021-02-11 07:40 | disposition home or self-care (01) | LOC: HO.MDS 07:39 | PROVIDERS: PCP Physician Assistant; Visit Provider Internal Medicine Pulmonary Disease | DX: J45.50 Severe persistent asthma, uncomplicated (principal) | CPT/HCPCS: 96372; J2182 ==

== ENCOUNTER 2021-03-11 07:57 | Outpatient (REF) | payer OTHER, SELFPAY | END 2021-03-11 07:58 | disposition home or self-care (01) | LOC: HO.MDS 07:57 | PROVIDERS: PCP Physician Assistant; Visit Provider Internal Medicine Pulmonary Disease | DX: J45.50 Severe persistent asthma, uncomplicated (principal) | CPT/HCPCS: 96372; J2182 ==

== ENCOUNTER → 2021-03-24 09:10 | Outpatient (BNVA) | payer OTHER, SELFPAY | PROVIDERS: PCP Physician Assistant; Visit Provider Internal Medicine Pulmonary Disease | DX: J45.50 Severe persistent asthma, uncomplicated (principal); Z91.09 Other allergy status, other than to drugs and biological substances | CPT/HCPCS: 99212 ==

== ENCOUNTER 2021-04-08 07:55 | Outpatient (REF) | payer OTHER, SELFPAY | END 2021-04-08 07:56 | disposition home or self-care (01) | LOC: HO.MDS 07:55 | PROVIDERS: PCP Physician Assistant; Visit Provider Internal Medicine Pulmonary Disease | DX: J45.50 Severe persistent asthma, uncomplicated (principal) | CPT/HCPCS: 96372; J2182 ==

== ENCOUNTER 2021-04-28 16:29 | Emergency (ER) | payer OTHER, SELFPAY ==
--- NOTE | ~2021-04-28 | CT_ITS ---
EXAMINATION: CT HEAD WITHOUT CONTRAST CLINICAL INFORMATION: Right-sided headache COMPARISON: 10/13/2020 TECHNIQUE: Contiguous axial imaging was performed from the skull base to vertex without intravenous administration of contrast. This CT examination was performed using dose optimization techniques as appropriate, variously including the following: *Automated exposure control *Adjustment of mA and/or kV according to patient size (this includes techniques or standardized protocols for targeted exams where dose is matched to indication/reason for exam; i.e. extremities or head) *Use of iterative reconstruction technique DLP: 705 mGy-cm FINDINGS: There is no evidence of acute intracranial hemorrhage or territorial infarction. No abnormal mass effect or midline shift is seen. [place] to white matter differentiation is well preserved. No extra-axial fluid collections are identified. The ventricles are normal in size. There is no abnormal attenuation within the brain parenchyma. The osseous structures and soft tissues are normal. The mastoid air cells and visualized portions of the paranasal sinuses are well aerated. Mucous retention cyst or polyp left maxillary sinus. CT/CT head/brain wo con IMPRESSION: No acute intracranial pathology.
[2021-04-28 16:31] VITALS: BP 132/74; PULSE 93; RESP 16; TEMP 36.7; O2SAT 97; BMI 27.9
[2021-04-28 17:46] VITALS: BP 131/68; PULSE 84; RESP 18; O2SAT 96
--- NOTE | 2021-04-28 17:59 | ED_ITS ---
HPI - Seizure General Chief Complaint: Seizure Stated Complaint: SEIZURES Time Seen by Provider: 04/28/21 17:46 Source: patient Mode of arrival: EMS Limitations: no limitations History of Present Illness HPI Narrative: 40-year-old male who presents emergency department for evaluation of injuries after seizure. Patient has a known seizure disorder and is managed by our neurologist, Dr. Powers. Patient states he was 1st diagnosed with seizures in 2018 and was having seizures every 3-4 weeks. He states that since he has been on his current medication regimen he has been having seizures 3 times a year. The patient's neurologist recently increase the patient's Depakote from 250 mg to 500 mg twice a day. He is also taking Keppra 1000 mg in the morning and 500 mg at night. The patient states he does not know what triggers his seizures. He states that he has been having some difficulty sleeping recently secondary to his obstructive sleep apnea he states that he falls asleep for couple hours and was up. The patient was found by his father, the patient was on the ground, actively seizing. Patient states that he has no memory of the seizure he did not have an aura. He is currently complaining of r ight scalp pain and right-sided headache. He states that it feels similar to his migraine headache. He describes the headache as a constant, throbbing sensation which is 7/10 at its worst. He denied nausea or vomiting. Patient does have a chronic right shoulder injury and he states that his right shoulder does hurt when he moves it but this is normal. He denied neck pain, chest pain or back pain. Seizure History: Yes Place: Home Related Data Home Medications Medication Instructions Recorded Confirmed [id number]-[id number] 1 cap PO Q8H PRN 06/21/20 04/28/21 50 mg-325 mg-40 mg capsule albuterol sulfate 3 ml INHALATION Q6H 10/13/20 04/28/21 midodrine 2.5 mg tablet 1 tab PO BID 10/13/20 04/28/21 fluconazole 200 mg tablet 200 mg PO DAILY PRN 01/10/21 04/28/21 Previous Rx's Medication Instructions Recorded levetiracetam 1,000 mg tablet 1,500 mg PO BID #60 tab 10/15/20 aspirin 81 mg tablet,delayed 81 mg PO DAILY 90 Days #90 tab 10/20/20 release carvedilol 3.125 mg tablet 3.125 mg PO BID 90 Days #180 tab 10/20/20 pantoprazole 40 mg tablet,delayed 40 mg PO DAILY 90 Days #90 tab 10/20/20 release aluminum-mag hydroxide-simethicone 5 ml PO Q3H PRN 30 Days #3000 ml 11/07/20 200 mg-200 mg-20 mg/5 mL oral susp (Maalox Advanced) atorvastatin 40 mg tablet 40 mg PO BEDTIME 90 Days #90 tab 11/07/20 sertraline 100 mg tablet 100 mg PO DAILY 90 Days #90 tab 11/07/20 prednisone 10 mg tablet 10 mg PO DAILY #14 tab 12/24/20 mepolizumab 100 mg/mL subcutaneous 100 mg SUBCUT Q4W 30 Days #1 ml 12/27/20 syringe (Nucala) cholecalciferol (vitamin D3) 50 50 mcg PO DAILY 30 Days #30 cap 01/12/21 mcg (2,000 unit) capsule theophylline 400 mg 200 mg PO DAILY 30 Days #15 tab 03/24/21 tablet,extended release 24 hr lisinopril 10 mg tablet 10 mg PO DAILY #30 tab 04/18/21 montelukast 10 mg tablet 10 mg PO BEDTIME #30 tab 04/18/21 albuterol sulfate 90 mcg/actuation 2 puff PO Q6H PRN #8.5 g 04/28/21 aerosol inhaler (ProAir HFA) diclofenac sodium 3 % topical gel 1 appl TOPICAL BID 15 Days #100 g 04/28/21 divalproex 500 mg tablet,delayed 500 mg PO BID #60 tab 04/28/21 release naproxen 500 mg tablet,delayed 500 mg PO BID 7 Days #14 tab 04/28/21 release (EC-Naproxen) tiotropium bromide 2.5 2 puff PO DAILY 30 Days #4 g 04/28/21 mcg/actuation mist for inhalation (Spiriva Respimat) Allergies Allergy/AdvReac Type Severity Reaction Status Date / Time cat dander [CATS] Allergy Mild GENERALIZED Verified 04/28/21 15:35 ALLERGY SYMPTOMS dog dander [DOGS] Allergy Mild GENERALIZED Verified 04/28/21 15:35 ALLERGY SYMPTOMS tree and shrub pollen [TREE] Allergy Mild GENERALIZED Verified 04/28/21 15:35 ALLERGY SYMPTOMS FROM [place] PMFSH Past Medical History Medical History Asthma Multinodular thyroid Myocardial infarct Seizures Vitamin D deficiency Surgical History History of cholecystectomy Family History Family History (Updated 04/28/21 @ 15:27 by Lisy Padilla) Maternal Grandmother Emphysema, unspecified Father Diabetes Mother No problems noted. Social History Social History Housing: Apartment Alcohol intake: never Patient Tobacco Use Status: Never used Tobacco e-Cigarette/Vaping Use: Never Used Second Hand Smoke Exposure: No Use of substances other than those prescribed or required for medical reasons: Yes Substance Use Type: Marijuana Substance Use Frequency: Occasionally Advance Directives: No Advance Directives Information Provided: No service: No Current occupational status: disabled Physical Exam Vital Signs: Vital Signs: Last Vital Signs Temp 98.0 F 04/28/21 16:31 Pulse 90 04/28/21 20:27 Resp 20 04/28/21 20:27 BP 131/68 04/28/21 17:46 Pulse Ox 96 04/28/21 17:46 Body Mass Index 27.9 Course Course Course Narrative: 40-year-old male with history of known seizure disorders who presents emergency department for witnessed seizure . The patient had a recent increase in his Depakote and is continued on his Keppra at the same dose. Patient has been having difficulty sleeping at night and maybe slightly sleep deprived. Patient's physical examination was unremarkable. Laboratory evaluation was unremarkable. CT scan of the brain revealed no acute finding. I did add a Depakote level and Keppra level to the patient's laboratory evaluation, I told patient that he should follow up with his doctor determine if he needs any change in his medications. The patient was given Ativan 1 mg IV try to raise his seizure threshold and he was also given Tylenol for his headache. MDM - Seizure Lab Data Result diagrams: 04/28/21 18:39 04/28/21 18:39 Labs: Lab Results 04/28/21 04/28/21 04/28/21 Range/Units 18:39 18:39 18:39 WBC 12.1 H (4.8-10.8) X10*3/uL RBC 5.11 (4.60-5.80) X10*6/uL Hgb 15.0 (14.0-18.0) g/dl Hct 43.8 (42-52) % MCV 85.7 (80-98) fL MCH 29.4 (27.0-33.0) pg MCHC 34.2 (31.0-36.0) g/dl RDW 12.3 (11.0-16.0) % Plt Count 354 (160-400) X10*3/uL MPV 9.3 L (9.4-12.4) fL Immature Gran % (Auto) 0.7 H (0.0-0.4) % Neut % (Auto) 79.6 H (45-73) % Lymph % (Auto) 12.4 L (20-40) % [place] % (Auto) 7.0 (2-11) % Eos % (Auto) 0.1 (0-4) % Baso % (Auto) 0.2 (0-2) % Lymph # (Auto) 1.5 (1.2-4.9) X10*3/uL [place] # (Auto) 0.8 (0.1-1.2) X10*3/uL Eos # (Auto) 0.0 (0.0-0.4) X10*3/uL Baso # (Auto) 0.0 (0.0-0.2) X10*3/uL Abs Immat Gran (auto) 0.08 H (0.00-0.03) X10*3/uL Absolute Neuts (auto) 9.6 H (2.0-8.3) X10*3/uL Absolute Nucleated RBC 0.000 (0.0-0.012) X10*3/uL Nucleated RBC % (auto) 0.0 (0.0-0.2) /100WBC PT 11.0 (9.9-13.0) SEC INR 1.0 (0.9-1.1) APTT 38.1 H (24.1-38.0) SEC Sodium 139 (135-145) mmol/L Potassium 5.1 (3.3-5.1) mmol/L Chloride 106 (96-108) mmol/L Carbon Dioxide 21 L (22-29) mmol/L Anion Gap 17 (12-20) BUN 14 (9-16) mg/dL Creatinine 0.86 (0.5-1.4) mg/dL Estim Creat Clear Calc 107.7 Estimated GFR > 60 Random Glucose 116 H (60-115) mg/dL Calcium 10.0 (8.4-10.2) mg/dL Total Bilirubin 0.3 (0.0-1.0) mg/dL AST 30 D (5-37) U/L ALT 54 H (0-40) U/L Alkaline Phosphatase 49 (39-117) U/L Total Protein 7.6 (6.5-8.0) g/dL Albumin 4.7 (3.5-5.0) g/dL Lipase 56 (8-78) U/L Ethyl Alcohol mg/dL 04/28/21 Range/Units 18:39 WBC (4.8-10.8) X10*3/uL RBC (4.60-5.80) X10*6/uL Hgb (14.0-18.0) g/dl Hct (42-52) % MCV (80-98) fL MCH (27.0-33.0) pg MCHC (31.0-36.0) g/dl RDW (11.0-16.0) % Plt Count (160-400) X10*3/uL MPV (9.4-12.4) fL Immature Gran % (Auto) (0.0-0.4) % Neut % (Auto) (45-73) % Lymph % (Auto) (20-40) % [place] % (Auto) (2-11) % Eos % (Auto) (0-4) % Baso % (Auto) (0-2) % Lymph # (Auto) (1.2-4.9) X10*3/uL [place] # (Auto) (0.1-1.2) X10*3/uL Eos # (Auto) (0.0-0.4) X10*3/uL Baso # (Auto) (0.0-0.2) X10*3/uL Abs Immat Gran (auto) (0.00-0.03) X10*3/uL Absolute Neuts (auto) (2.0-8.3) X10*3/uL Absolute Nucleated RBC (0.0-0.012) X10*3/uL Nucleated RBC % (auto) (0.0-0.2) /100WBC PT (9.9-13.0) SEC INR (0.9-1.1) APTT (24.1-38.0) SEC Sodium (135-145) mmol/L Potassium (3.3-5.1) mmol/L Chloride (96-108) mmol/L Carbon Dioxide (22-29) mmol/L Anion Gap (12-20) BUN (9-16) mg/dL Creatinine (0.5-1.4) mg/dL Estim Creat Clear Calc Estimated GFR Random Glucose (60-115) mg/dL Calcium (8.4-10.2) mg/dL Total Bilirubin (0.0-1.0) mg/dL AST (5-37) U/L ALT (0-40) U/L Alkaline Phosphatase (39-117) U/L Total Protein (6.5-8.0) g/dL Albumin (3.5-5.0) g/dL Lipase (8-78) U/L Ethyl Alcohol < 10 mg/dL Discharge Plan Discharge Clinical Impression: Seizure, Closed head injury, Headache, Insomnia Patient Disposition: Home, Self-Care Instructions: Recurrent Seizures in Adults (ED) Additional Instructions: The CT scan of your brain revealed no skull fracture or bleeding in the brain. Your blood work was normal. I added a valproic acid level and a Keppra level to your blood work. You should follow-up with neurologist to check these results and determine if you need any change in your anti seizure medications. Take Tylenol (acetaminophen) 500 mg pills, 2 pills every 4 to 6 hours as needed for pain. You should try to go to bed in your bed at night and use your CPAP as prescribed by your doctor. Sometimes insomnia and being sleep deprived can lower seizure threshold and cause you to have seizures. Follow-up with your doctor in 2 days. Please return to the emergency department if your symptoms get worse or if you develop any symptoms that are concerning to you. Prescriptions: No Action atorvastatin 40 mg tablet 40 mg PO BEDTIME 90 Days Qty: 90 RF: 1 sertraline 100 mg tablet 100 mg PO DAILY 90 Days Qty: 90 RF: 1 alum-mag hydroxide-simeth [Maalox Advanced] 200-200-20 mg/5 mL suspension 5 ml PO Q3H PRN (Reason: dyspepsia) 30 Days Qty: 3000 RF: 1 cholecalciferol (vitamin D3) 50 mcg (2,000 unit) capsule 50 mcg PO DAILY 30 Days Qty: 30 RF: 11 montelukast 10 mg tablet 10 mg PO BEDTIME Qty: 30 RF: 4 lisinopril 10 mg tablet 10 mg PO DAILY Qty: 30 RF: 4 albuterol sulfate 2.5 mg /3 mL (0.083 %) solution for nebulization 3 ml inhalation Q6H RF: 0 midodrine 2.5 mg tablet 1 tab PO BID RF: 0 levetiracetam 1,000 mg Tablet 1,500 mg PO BID Qty: 60 RF: 0 fluconazole 200 mg tablet 200 mg PO DAILY PRNRF: 0 pantoprazole 40 mg tablet,delayed release (DR/EC) 40 mg PO DAILY 90 Days Qty: 90 RF: 2 aspirin 81 mg tablet,delayed release (DR/EC) 81 mg PO DAILY 90 Days Qty: 90 RF: 2 carvedilol 3.125 mg tablet 3.125 mg PO BID 90 Days Qty: 180 RF: 2 diclofenac sodium 3 % gel 1 appl topical BID 15 Days Qty: 100 RF: 0 naproxen [EC-Naproxen] 500 mg tablet,delayed release (DR/EC) 500 mg PO BID 7 Days Qty: 14 RF: 0 divalproex 500 mg tablet,delayed release (DR/EC) 500 mg PO BID Qty: 60 RF: 2 albuterol sulfate [ProAir HFA] 90 mcg/actuation HFA aerosol inhaler 2 puff PO Q6H PRN (Reason: for dyspnea) Qty: 8.5 RF: 6 Spiriva Respimat 2.5 mcg/actuation mist 2 puff PO DAILY 30 Days Qty: 4 RF: 3 prednisone 10 mg tablet 10 mg PO DAILY Qty: 14 RF: 0 Nucala 100 mg/mL syringe 100 mg subcut Q4W 30 Days Qty: 1 RF: 12 pvqjcsvkre-nmgdauqwpzlic-dhkv 50-325-40 mg capsule 1 cap PO Q8H PRN (Reason: Migraine Headache) RF: 0 theophylline 400 mg tablet extended release 24 hr 200 mg PO DAILY 30 Days Qty: 15 RF: 6
[2021-04-28 18:45] LABS: MANUAL DIFF FLAG NO
[2021-04-28 18:46] LABS: Basophils Percent Auto 0.2 % (0-2); Eosinophils Percent Auto 0.1 % (0-4); Hematocrit 43.8 % (42-52); Imm Gran Abs Auto 0.08 X10*3/uL (0.00-0.03); Imm Gran Pct Auto 0.7 % (0.0-0.4); Lymphocytes Absolute Auto 1.5 X10*3/uL (1.2-4.9); Lymphocytes Percent Auto 12.4 % (20-40); Mean Corpuscular HGB Conc 34.2 g/dl (31.0-36.0); Mean Corpuscular Hemoglobin 29.4 pg (27.0-33.0); Mean Corpuscular Volume 85.7 fL (80-98); Mean Platelet Volume 9.3 fL (9.4-12.4); Monocytes Absolute Auto 0.8 X10*3/uL (0.1-1.2); Neutrophils Absolute Auto 9.6 X10*3/uL (2.0-8.3); Neutrophils Percent Auto 79.6 % (45-73); Platelet Count 354 X10*3/uL (160-400); Red Blood Count 5.11 X10*6/uL (4.60-5.80); Red Cell Distribution Width 12.3 % (11.0-16.0); White Blood Count 12.1 X10*3/uL (4.8-10.8)
[2021-04-28 18:54] LABS: Partial Thromboplastin Time 38.1 SEC (24.1-38.0)
[2021-04-28] MEDS: 0.9 % Sodium Chloride 1,000 ML 999 ML IV (18:56)
[2021-04-28] MEDS: LORazepam 2 MG/ML VIAL 1 MG IVPUSH (18:56)
[2021-04-28 19:03] LABS: Ethanol < 10 mg/dL
[2021-04-28 19:07] LABS: Alanine Aminotransferase 54 U/L (0-40); Albumin Level 4.7 g/dL (3.5-5.0); Alkaline Phosphatase 49 U/L (39-117); Anion Gap 17 (12-20); Aspartate Amino Transferase 30 U/L (5-37); Bilirubin Total 0.3 mg/dL (0.0-1.0); Blood Urea Nitrogen 14 mg/dL (9-16); Carbon Dioxide 21 mmol/L (22-29); Chloride 106 mmol/L (96-108); Creatinine Clr Calc Pharmacy 107.7; Estimated Glomerular Filt Rate > 60; Glucose Random 116 mg/dL (60-115); Lipase 56 U/L (8-78); Potassium 5.1 mmol/L (3.3-5.1); Sodium 139 mmol/L (135-145); Total Protein 7.6 g/dL (6.5-8.0)
[2021-04-28 20:27] VITALS: PULSE 90; RESP 20
[2021-04-28] MEDS: Acetaminophen 325 MG TABLET 975 MG PO (20:51)
[2021-04-28 21:25] LABS: Valproate 19.9 mcg/mL (50.0-100.0)
== END 2021-04-28 21:18 | disposition home or self-care (01) ==
PROVIDERS: Emergency Provider Emergency Medicine Emergency Medical Services; PCP Physician Assistant
DX: R56.9 Unspecified convulsions (principal); S09.90XA Unspecified injury of head, initial encounter; X58.XXXA Exposure to other specified factors, initial encounter; R51.9 Headache, unspecified; G47.00 Insomnia, unspecified; I25.2 Old myocardial infarction; Y93.9 Activity, unspecified; Y92.9 Unspecified place or not applicable; Y99.9 Unspecified external cause status
CPT/HCPCS: 36415; 70450; 80053; 80164; 80177; 82077; 83690; 85025; 85610; 85730; 96361; 96374; 99284; J2060

== ENCOUNTER 2021-05-06 07:59 | Outpatient (REF) | payer OTHER, SELFPAY | END 2021-05-06 08:00 | disposition home or self-care (01) | LOC: HO.MDS 07:59 | PROVIDERS: PCP Physician Assistant; Visit Provider Internal Medicine Pulmonary Disease | DX: J45.50 Severe persistent asthma, uncomplicated (principal) | CPT/HCPCS: 96372; J2182 ==

== ENCOUNTER 2021-05-09 07:51 | Outpatient (REF) | payer OTHER, SELFPAY ==
--- NOTE | ~2021-05-09 | XR_ITS ---
EXAMINATION: XR SHOULDER, RIGHT CLINICAL INFORMATION: Pain. COMPARISON: Right shoulder radiographs dated 05/23/2019. TECHNIQUE: AP, Grashey, and axillary views of the right shoulder. FINDINGS: Glenohumeral joint space narrowing with tiny marginal osteophytes, new when compared to the prior examination. No acute fracture or dislocation. No abnormal soft tissue calcification. No lytic or blastic osseous lesion. XR/XR shoulder RT min 2V IMPRESSION: Mild glenohumeral osteoarthritis, new when compared to the prior examination.
== END 2021-05-09 07:52 | disposition home or self-care (01) ==
LOC: HO.HOSX 07:51
PROVIDERS: Visit Provider Physician Assistant
DX: M75.01 Adhesive capsulitis of right shoulder (principal); M54.12 Radiculopathy, cervical region
CPT/HCPCS: 20610; 73030; 99202; J1040

== ENCOUNTER 2021-05-10 10:25 | Outpatient (REF) | payer OTHER, SELFPAY ==
--- NOTE | ~2021-05-10 | CT_ITS ---
EXAMINATION: CT SHOULDER WITHOUT CONTRAST, RIGHT CLINICAL INFORMATION: Right shoulder adhesive capsulitis. COMPARISON: Right shoulder radiographs dated 05/09/2021. TECHNIQUE: Contiguous axial CT images of the right shoulder were obtained without contrast. Sagittal and coronal reformats were provided and reviewed. This CT examination was performed using dose optimization techniques as appropriate, variously including the following: *Automated exposure control *Adjustment of mA and/or kV according to patient size (this includes techniques or standardized protocols for targeted exams where dose is matched to indication/reason for exam; i.e. extremities or head) *Use of iterative reconstruction technique DLP: 326 mGy-cm FINDINGS: No acute fracture or dislocation. The humeral head is well seated within the glenoid. Mild glenohumeral joint space narrowing with small marginal osteophytes, similar when compared to the prior radiographs. No significant acromioclavicular joint space narrowing or marginal osteophytes. No visualized lytic or blastic osseous lesion. The rotator cuff muscles and tendons are grossly intact, however, evaluation is significantly limited on CT examination. No abnormal soft tissue mass or fluid collection. No right axillary lymphadenopathy. The visualized right lung is clear. CT/CT shoulder RT wo con IMPRESSION: 1. Mild glenohumeral osteoarthritis. Findings are similar when compared to the recent right shoulder radiographs. 2. No acute fracture or dislocation. No concerning lytic or blastic osseous lesion.
== END 2021-05-10 10:26 | disposition home or self-care (01) ==
LOC: HO.CT 10:25
PROVIDERS: Visit Provider Physician Assistant
DX: M75.01 Adhesive capsulitis of right shoulder (principal)
CPT/HCPCS: 73200

== ENCOUNTER 2021-06-03 07:50 | Outpatient (REF) | payer OTHER, SELFPAY | END 2021-06-03 07:51 | disposition home or self-care (01) | LOC: HO.MDS 07:50 | PROVIDERS: PCP Physician Assistant; Visit Provider Internal Medicine Pulmonary Disease | DX: J45.50 Severe persistent asthma, uncomplicated (principal) | CPT/HCPCS: 96372; J2182 ==

== ENCOUNTER 2021-06-16 07:52 | Outpatient (REF) | payer OTHER, SELFPAY ==
--- NOTE | 2021-06-16 08:48 | P.BOP_ITS ---
Brief Operative Note Date of Service: 06/16/21 Pre-op diagnosis: Multinodular Thyroid Procedure: This is doctor Nannette Cohen. This is an ultrasound-guided fine-needle aspiration report. Date of Examination: 06/16/2021 Indication: Multinodular Thyroid Porcedure: Procedure was explained to the patient. Alternatives, the risk and benefits were discussed. Written consent was obtained. A time-out was also obtained. After sterile preparation, fine-needle aspiration of a right mid pole 1.2 cm thyroid nodule was performed using direct ultrasound guidance to confirm accurate needle placement. Four aspirations were made using 27 gauge needles. Samples were submitted for cytology. One pass was dedicated for [employer] Gene sequencing whizzer hand testing. The patient tolerated the procedure well. Aftercare instructions were provided. Impression: Uncomplicated fine needle aspiration biopsy of a right mid pole 1.2 cm thyroid nodule under ultrasound guidance. Surgeon: Nannette Cohen, DO Was an Pattern Grader Supervisor used for this Procedure?: No Estimated blood loss (mL): 0
[2021-06-16] MEDS: Lidocaine HCl 1 % 20 ML VIAL 5 ML SUBCUT (09:11)
== END 2021-06-16 07:53 | disposition home or self-care (01) ==
LOC: HO.US 07:52
PROVIDERS: Visit Provider Internal Medicine
DX: E04.2 Nontoxic multinodular goiter (principal)
CPT/HCPCS: 10005; 88172; 88173

== ENCOUNTER → 2021-06-29 08:59 | Outpatient (BNVA) | payer OTHER, SELFPAY | PROVIDERS: PCP Physician Assistant; Visit Provider Internal Medicine Pulmonary Disease | DX: J45.50 Severe persistent asthma, uncomplicated (principal); Z91.09 Other allergy status, other than to drugs and biological substances | CPT/HCPCS: 99212 ==

== ENCOUNTER → 2021-06-30 10:55 | Outpatient (BNVA) | payer OTHER, SELFPAY | PROVIDERS: PCP Physician Assistant; Visit Provider Internal Medicine ==

== ENCOUNTER 2021-07-01 07:56 | Outpatient (REF) | payer OTHER, SELFPAY | END 2021-07-01 07:57 | disposition home or self-care (01) | LOC: HO.MDS 07:56 | PROVIDERS: PCP Physician Assistant; Visit Provider Internal Medicine Pulmonary Disease | DX: J45.50 Severe persistent asthma, uncomplicated (principal) | CPT/HCPCS: 96372; J2182 ==

== ENCOUNTER 2021-07-29 08:01 | Outpatient (REF) | payer OTHER, SELFPAY | END 2021-07-29 08:02 | disposition home or self-care (01) | LOC: HO.MDS 08:01 | PROVIDERS: PCP Physician Assistant; Visit Provider Internal Medicine Pulmonary Disease | DX: J45.50 Severe persistent asthma, uncomplicated (principal) | CPT/HCPCS: 96372; 99212; J2182 ==

== ENCOUNTER 2021-08-26 07:56 | Outpatient (REF) | payer OTHER, SELFPAY | END 2021-08-26 07:57 | disposition home or self-care (01) | LOC: HO.MDS 07:56 | PROVIDERS: PCP Physician Assistant; Visit Provider Internal Medicine Pulmonary Disease | DX: J45.50 Severe persistent asthma, uncomplicated (principal) | CPT/HCPCS: 96372; J2182 ==

== ENCOUNTER → 2021-09-12 08:23 | Outpatient (BNVA) | payer OTHER, SELFPAY | PROVIDERS: PCP Physician Assistant; Visit Provider Internal Medicine ==

== ENCOUNTER 2021-09-23 07:56 | Outpatient (REF) | payer OTHER, SELFPAY | END 2021-09-23 07:57 | disposition home or self-care (01) | LOC: HO.MDS 07:56 | PROVIDERS: PCP Physician Assistant; Visit Provider Internal Medicine Pulmonary Disease | DX: J45.50 Severe persistent asthma, uncomplicated (principal) | CPT/HCPCS: 96372; J2182 ==

== ENCOUNTER 2021-10-21 08:00 | Outpatient (REF) | payer OTHER, SELFPAY | END 2021-10-21 08:01 | disposition home or self-care (01) | LOC: HO.MDS 08:00 | PROVIDERS: PCP Physician Assistant; Visit Provider Internal Medicine Pulmonary Disease | DX: J45.50 Severe persistent asthma, uncomplicated (principal); J30.81 Allergic rhinitis due to animal (cat) (dog) hair and dander; J30.1 Allergic rhinitis due to pollen; G47.33 Obstructive sleep apnea (adult) (pediatric); E55.9 Vitamin D deficiency, unspecified; Z99.89 Dependence on other enabling machines and devices; Z79.899 Other long term (current) drug therapy | CPT/HCPCS: 96372; 99212; J2182 ==

== ENCOUNTER 2021-10-27 14:23 | Emergency (ER) | payer OTHER, SELFPAY ==
--- NOTE | ~2021-10-27 | XR_ITS ---
EXAMINATION: XR HAND, LEFT CLINICAL INFORMATION: Fall. Seizure. COMPARISON: None TECHNIQUE: PA, lateral, and oblique views of the left hand. FINDINGS: No fracture or dislocation. Alignment is anatomic. Joint spaces are maintained. Mild dorsal soft tissue swelling. XR/XR hand LT 2V IMPRESSION: Mild dorsal soft tissue swelling. No acute osseous abnormality.
[2021-10-27 15:25] VITALS: BP 113/70; PULSE 86; RESP 18; TEMP 36.7; O2SAT 98; BMI 28.1
[2021-10-27 16:12] LABS: MANUAL DIFF FLAG NO
[2021-10-27 16:15] LABS: Basophils Percent Auto 0.1 % (0-2); Hematocrit 46.2 % (42.0-52.0); Hemoglobin 15.6 g/dl (14.0-18.0); Imm Gran Abs Auto 0.09 X10*3/uL (0.00-0.03); Imm Gran Pct Auto 0.5 % (0.0-0.4); Lymphocytes Absolute Auto 1.2 X10*3/uL (1.2-4.9); Lymphocytes Percent Auto 7.2 % (20-40); Mean Corpuscular HGB Conc 33.8 g/dl (31.0-36.0); Mean Corpuscular Hemoglobin 29.8 pg (27.0-33.0); Mean Corpuscular Volume 88.2 fL (80.0-98.0); Mean Platelet Volume 9.7 fL (9.4-12.4); Monocytes Absolute Auto 1.3 X10*3/uL (0.1-1.2); Monocytes Percent Auto 7.6 % (2-11); Neutrophils Absolute Auto 14.5 x10*3/uL (2.0-8.3); Neutrophils Percent Auto 84.6 % (45-73); Platelet Count 373 X10*3/uL (160-400); Red Blood Count 5.24 X10*6/uL (4.60-5.80); Red Cell Distribution Width 12.6 % (11.0-16.0); White Blood Count 17.2 X10*3/uL (4.8-10.8)
[2021-10-27 16:34] LABS: Alanine Aminotransferase 25 U/L (0-40); Albumin Level 4.8 g/dL (3.5-5.0); Alkaline Phosphatase 48 U/L (39-117); Anion Gap 15 (12-20); Aspartate Amino Transferase 18 U/L (5-37); Bilirubin Total 0.3 mg/dL (0.0-1.0); Blood Urea Nitrogen 9 mg/dL (9-16); Calcium 10.4 mg/dL (8.4-10.2); Carbon Dioxide 24 mmol/L (22-29); Chloride 106 mmol/L (96-108); Creatinine Clr Calc Pharmacy 97.7; Estimated Glomerular Filt Rate > 60; Glucose Random 113 mg/dL (60-115); Potassium 4.8 mmol/L (3.3-5.1); Sodium 140 mmol/L (135-145); Total Protein 7.5 g/dL (6.5-8.0)
[2021-10-27 16:36] LABS: Valproate 33.7 mcg/mL (50.0-100.0)
--- NOTE | 2021-10-27 18:12 | ED_ITS ---
HPI - Seizure General Chief Complaint: Seizure Stated Complaint: SEIZURE Time Seen by Provider: 10/27/21 15:35 Source: patient Mode of arrival: wheelchair Limitations: no limitations History of Present Illness HPI Narrative: 40 yo male with history of seizure disorder on keppra and depakote who presents to the ER with witnessed seizure at home today. He reports he was going to have a nap when his father reported he heard a fall and found him seizing on the floor for about 2 minutes. Reported as tonic clonic with urinary incontinence and diaphoresis. He was confused afterward. He reports compliance with both of his medications and has not missed a dose. He denies any signs or symptoms of infection and was feeling well prior to the event. He saw his Neurologist Dr. Powers here about 1 month ago with no med changes and he reports his last seizure was about a year ago. MD complaint: seizure Onset (ago): hour(s) Description of Episode: loss of consciousness, tonic-clonic movement, bladder incontinence and post-event confusion Duration of episode: 2 Witnessed: Yes - by Bystander Trauma: Yes Seizure History: Yes Place: Home Possible Precipitating Event: none Associated symptoms: confusion, diaphoresis and other (body aches) Treatments prior to arrival: none Related Data Home Medications Medication Instructions Recorded Confirmed ipuwkvqbas-mpqoffcfcfuua-dwvwgqtl 1 cap PO Q8H PRN 06/21/20 08/01/21 50 mg-325 mg-40 mg capsule albuterol sulfate 3 ml INHALATION Q6H 10/13/20 08/01/21 midodrine 2.5 mg tablet 1 tab PO BID 10/13/20 08/01/21 fluconazole 200 mg tablet 200 mg PO DAILY PRN 01/10/21 08/01/21 fluoxetine 20 mg capsule 20 mg PO DAILY 06/30/21 08/01/21 Previous Rx's Medication Instructions Recorded levetiracetam 1,000 mg tablet 1,500 mg PO BID #60 tab 10/15/20 aluminum-mag hydroxide-simethicone 5 ml PO Q3H PRN 30 Days #3000 ml 11/07/20 200 mg-200 mg-20 mg/5 mL oral susp (Maalox Advanced) mepolizumab 100 mg/mL subcutaneous 100 mg SUBCUT Q4W 30 Days #1 ml 12/27/20 syringe (Nucala) theophylline 400 mg 200 mg PO DAILY 30 Days #15 tab 03/24/21 tablet,extended release 24 hr lisinopril 10 mg tablet 10 mg PO DAILY #30 tab 04/18/21 montelukast 10 mg tablet 10 mg PO BEDTIME #30 tab 04/18/21 divalproex 500 mg tablet,delayed 500 mg PO BID #60 tab 04/28/21 release tiotropium bromide 2.5 2 puff PO DAILY 30 Days #4 g 04/28/21 mcg/actuation mist for inhalation (Spiriva Respimat) atorvastatin 40 mg tablet 40 mg PO BEDTIME 90 Days #90 tab 05/02/21 aspirin 81 mg tablet,delayed 81 mg PO DAILY 90 Days #90 tab 07/11/21 release carvedilol 3.125 mg tablet 3.125 mg PO BID 90 Days #180 tab 07/11/21 pantoprazole 40 mg tablet,delayed 40 mg PO DAILY 90 Days #90 tab 07/11/21 release prednisone 10 mg tablet See Rx Instructions PO DAILY 20 07/29/21 Days #75 tab albuterol sulfate 90 mcg/actuation 2 puff PO Q6H PRN #8.5 g 08/01/21 aerosol inhaler (ProAir HFA) divalproex 500 mg tablet,delayed 1,500 mg PO BID 30 Days #180 tab 10/27/21 release (Depakote) sertraline 100 mg tablet 100 mg PO DAILY 90 Days #90 tab 10/27/21 Allergies Allergy/AdvReac Type Severity Reaction Status Date / Time cat dander [CATS] Allergy Mild GENERALIZED Verified 10/21/21 08:52 ALLERGY SYMPTOMS dog dander [DOGS] Allergy Mild GENERALIZED Verified 10/21/21 08:52 ALLERGY SYMPTOMS tree and shrub pollen [TREE] Allergy Mild GENERALIZED Verified 10/21/21 08:52 ALLERGY SYMPTOMS FROM P[place] TREES Review of Systems Review of Systems: Constitutional: No Fever, + Chills ENT/Mouth: No sore throat, No Rhinorrhea, No Swallowing Difficulty Eyes: No Eye Pain, No Swelling, No Redness Cardiovascular: No Chest Pain, No SOB, No Orthopnea, No Edema Respiratory: No Cough, No Sputum, No Wheezing, No dyspnea Gastrointestinal: No Nausea, No Vomiting, No Diarrhea, No abdominal Pain Genitourinary: No Dysuria, No Urinary Frequency, No Hematuria, +urinary incontinence Musculoskeletal: No joint pain, N+Myalgias Skin: + Skin Lesions, No rash Neuro: No Weakness, No Numbness, No Dizziness, + Headache Psych: + Anxiety/Panic, No Depression Heme/Lymph: No Bruising, No Lymphadenopathy PMFSH Past Medical History Medical History Asthma Multinodular thyroid Myocardial infarct Seizures Vitamin D deficiency Surgical History History of cholecystectomy Family History Family History Maternal Grandmother Emphysema, unspecified Father Diabetes Mother No problems noted. Social History Social History Housing: Apartment Alcohol intake: never Patient Tobacco Use Status: Never used Tobacco e-Cigarette/Vaping Use: Never Used Second Hand Smoke Exposure: No Substance Use Type: Marijuana Advance Directives: No Advance Directives Information Provided: No service: No Current occupational status: disabled Current occupation: rt handed Cognitive needs: No Hearing needs: No Vision needs: No Physical Exam Vital Signs: Vital Signs: Last Vital Signs Temp 98.0 F 10/27/21 15:25 Pulse 86 10/27/21 15:25 Resp 18 10/27/21 15:25 BP 113/70 10/27/21 15:25 Pulse Ox 98 10/27/21 15:25 BMI result Body Mass Index 28.1 Appearance: Alert. Oriented X3. No acute distress. Eyes: Pupils equal, round and reactive to light. EOMI, no nystagmus ENT: Pharynx normal. Neck: Normal inspection. Neck supple. CVS: Normal heart rate and rhythm. Pulses normal. Respiratory: No respiratory distress. Breath sounds normal. Abdomen: Soft and nontender. +BS x4 Skin: Skin warm and dry. Normal skin color. Normal skin turgor. No rashes. Extremities: No lower extremity edema. Soft tissue tenderness of the quadricep m uscles, all LE and UE compartments are soft and compressible. NV intact. left dorsal hand with small round superficial abrasion. Neuro: Oriented X 3. No motor deficit. No sensory deficit. Course Course Course Narrative: 40 y/o male with history of seizures presents with a witnessed seizure at home. +incontinence and postictal state. He is now back to baseline but reports diffuse muscle soreness. His labs show WBC 17K which is likely reactive from the seizure. No signs of symptoms of infection. VS are normal. Will check CPK to r/o rhabdomyolysis. His depakote level is low at 33, previously low at 19 back in April as well. Will discuss with Dr. Powers. Reevaluation(s) Reevaluation #1: Dr Powers would like the patient's depakote dose to increase from 500 mg bid to 1500 mg BID. will give 1000 mg now and send update rx to his pharmacy. plan discussed with patient. Reevaluation #2: CK 211. No need for IVF. Stable for d/c home with increased depakote dose. Bacilio carroll agrees w/ plan and will follow up with Neuro Consultations Consultation #1: Neurology - Gio MDM - Seizure Lab Data Result diagrams: 10/27/21 15:54 10/27/21 15:54 Labs: Lab Results 10/27/21 10/27/21 10/27/21 Range/Units 15:54 15:54 15:54 WBC 17.2 H (4.8-10.8) X10*3/uL RBC 5.24 (4.60-5.80) X10*6/uL Hgb 15.6 (14.0-18.0) g/dl Hct 46.2 (42.0-52.0) % MCV 88.2 (80.0-98.0) fL MCH 29.8 (27.0-33.0) pg MCHC 33.8 (31.0-36.0) g/dl RDW 12.6 (11.0-16.0) % Plt Count 373 (160-400) X10*3/uL MPV 9.7 (9.4-12.4) fL Immature Gran % (Auto) 0.5 H (0.0-0.4) % Neut % (Auto) 84.6 H (45-73) % Lymph % (Auto) 7.2 L (20-40) % Calhoun % (Auto) 7.6 (2-11) % Eos % (Auto) 0.0 (0-4) % Baso % (Auto) 0.1 (0-2) % Lymph # (Auto) 1.2 (1.2-4.9) X10*3/uL Calhoun # (Auto) 1.3 H (0.1-1.2) X10*3/uL Eos # (Auto) 0.0 (0.0-0.4) X10*3/uL Baso # (Auto) 0.0 (0.0-0.2) X10*3/uL Abs Immat Gran (auto) 0.09 H (0.00-0.03) X10*3/uL Absolute Neuts (auto) 14.5 H (2.0-8.3) x10*3/uL Absolute Nucleated RBC 0.000 (0.0-0.012) X10*3/uL Nucleated RBC % (auto) 0.0 (0.0-0.2) /100WBC Sodium 140 (135-145) mmol/L Potassium 4.8 (3.3-5.1) mmol/L Chloride 106 (96-108) mmol/L Carbon Dioxide 24 (22-29) mmol/L Anion Gap 15 (12-20) BUN 9 (9-16) mg/dL Creatinine 0.95 (0.5-1.4) mg/dL Estim Creat Clear Calc 97.7 Estimated GFR > 60 Random Glucose 113 (60-115) mg/dL Calcium 10.4 H (8.4-10.2) mg/dL Total Bilirubin 0.3 (0.0-1.0) mg/dL AST 18 (5-37) U/L ALT 25 (0-40) U/L Alkaline Phosphatase 48 (39-117) U/L Total Creatine Kinase 211 H (38-174) U/L Total Protein 7.5 (6.5-8.0) g/dL Albumin 4.8 (3.5-5.0) g/dL Valproic Acid 33.7 L (50.0-100.0) mcg/mL Discharge Plan Discharge Clinical Impression: Seizures Patient Disposition: Home, Self-Care Instructions: Generalized Tonic Clonic Seizures (ED) Additional Instructions: Your depakote level was low today Dr. Powers recommended increasing your dose to 1,500 mg two times per day. You were given 1,000 mg in the ER tonight, take another 500 mg tablet before bed and start the 1,500 mg tomorrow morning. Follow up with Dr. Powers's office, he may want to get your depakote level checked If you develop new or worsening symptoms call 911 or come back to the ER for further evaluation. Prescriptions: New divalproex [Depakote] 500 mg tablet,delayed release (DR/EC) 1,500 mg PO BID 30 Days Qty: 180 0RF No Action alum-mag hydroxide-simeth [Maalox Advanced] 200-200-20 mg/5 mL suspension 5 ml PO Q3H PRN (Reason: dyspepsia) 30 Days Qty: 3000 1RF montelukast 10 mg tablet 10 mg PO BEDTIME Qty: 30 4RF lisinopril 10 mg tablet 10 mg PO DAILY Qty: 30 4RF atorvastatin 40 mg tablet 40 mg PO BEDTIME 90 Days Qty: 90 1RF pantoprazole 40 mg tablet,delayed release (DR/EC) 40 mg PO DAILY 90 Days Qty: 90 2RF carvedilol 3.125 mg tablet 3.125 mg PO BID 90 Days Qty: 180 2RF aspirin 81 mg tablet,delayed release (DR/EC) 81 mg PO DAILY 90 Days Qty: 90 2RF sertraline 100 mg tablet 100 mg PO DAILY 90 Days Qty: 90 1RF albuterol sulfate 2.5 mg /3 mL (0.083 %) solution for nebulization 3 ml inhalation Q6H 0RF midodrine 2.5 mg tablet 1 tab PO BID 0RF levetiracetam 1,000 mg Tablet 1,500 mg PO BID Qty: 60 0RF fluconazole 200 mg tablet 200 mg PO DAILY PRN0RF divalproex 500 mg tablet,delayed release (DR/EC) 500 mg PO BID Qty: 60 2RF Spiriva Respimat 2.5 mcg/actuation mist 2 puff PO DAILY 30 Days Qty: 4 3RF albuterol sulfate [ProAir HFA] 90 mcg/actuation HFA aerosol inhaler 2 puff PO Q6H PRN (Reason: for dyspnea) Qty: 8.5 6RF Nucala 100 mg/mL syringe 100 mg subcut Q4W 30 Days Qty: 1 12RF vrsmydeqvm-qtjlehhzghdtz-uqak 50-325-40 mg capsule 1 cap PO Q8H PRN (Reason: Migraine Headache) 0RF theophylline 400 mg tablet extended release 24 hr 200 mg PO DAILY 30 Days Qty: 15 6RF fluoxetine 20 mg capsule 20 mg PO DAILY 0RF prednisone 10 mg tablet See Rx Instructions PO DAILY 20 Days Qty: 75 0RF Rx Instructions: Take 4 tabs daily for 5 days, then go down by 1 pill every 5 days, PO daily; Referrals: Diego Powers MD [Physician] - 1 week (seizure, depakote increased)
[2021-10-27] MEDS: Divalproex Sodium 500 MG TABLET.DR 1000 MG PO (18:41)
[2021-10-27] MEDS: Ibuprofen 600 MG TABLET PO (18:42)
== END 2021-10-27 19:09 | disposition home or self-care (01) ==
PROVIDERS: Physician Assistant; Emergency Provider Emergency Medicine Emergency Medical Services; PCP Physician Assistant
DX: R56.9 Unspecified convulsions (principal); M79.642 Pain in left hand; Z79.899 Other long term (current) drug therapy
CPT/HCPCS: 36415; 73120; 80053; 80164; 82550; 85025; 99283

== ENCOUNTER 2021-11-07 06:08 | Outpatient (REF) | payer OTHER, SELFPAY ==
[2021-11-07 07:08] LABS: Valproate 86.3 mcg/mL (50.0-100.0)
[2021-11-07 07:13] LABS: Anion Gap 16 (12-20); Blood Urea Nitrogen 13 mg/dL (9-16); Calcium 10.1 mg/dL (8.4-10.2); Carbon Dioxide 26 mmol/L (22-29); Chloride 103 mmol/L (96-108); Estimated Glomerular Filt Rate > 60; Glucose Random 126 mg/dL (60-115); Potassium 4.6 mmol/L (3.3-5.1); Sodium 140 mmol/L (135-145)
[2021-11-11 18:52] LABS: Levetiracetam Keppra 29.6 mcg/mL (12.0-46.0)
== END 2021-11-07 06:09 | disposition home or self-care (01) ==
LOC: HO.LAB 06:08
PROVIDERS: PCP Physician Assistant; Visit Provider Psychiatry & Neurology Neurology
DX: G40.909 Epilepsy, unspecified, not intractable, without status epilepticus (principal)
CPT/HCPCS: 36415; 80048; 80164; 80177

== ENCOUNTER 2021-11-18 13:49 | Outpatient (REF) | payer OTHER, SELFPAY | END 2021-11-18 13:50 | disposition home or self-care (01) | LOC: HO.MDS 13:49 | PROVIDERS: PCP Physician Assistant; Visit Provider Internal Medicine Pulmonary Disease | DX: J45.50 Severe persistent asthma, uncomplicated (principal) | CPT/HCPCS: 96372; J2182 ==

== ENCOUNTER 2021-12-06 06:17 | Outpatient (REF) | payer OTHER, SELFPAY ==
[2021-12-06 06:34] LABS: MANUAL DIFF FLAG NO
[2021-12-06 07:29] LABS: Basophils Percent Auto 0.3 % (0-2); Eosinophils Absolute Auto 0.1 X10*3/uL (0.0-0.4); Eosinophils Percent Auto 0.5 % (0-4); Hematocrit 41.7 % (42.0-52.0); Hemoglobin 13.7 g/dl (14.0-18.0); Imm Gran Abs Auto 0.15 X10*3/uL (0.00-0.03); Imm Gran Pct Auto 1.4 % (0.0-0.4); Lymphocytes Absolute Auto 3.2 X10*3/uL (1.2-4.9); Lymphocytes Percent Auto 28.9 % (20-40); Mean Corpuscular HGB Conc 32.9 g/dl (31.0-36.0); Mean Corpuscular Hemoglobin 29.8 pg (27.0-33.0); Mean Corpuscular Volume 90.7 fL (80.0-98.0); Mean Platelet Volume 9.8 fL (9.4-12.4); Monocytes Percent Auto 9.3 % (2-11); Neutrophils Absolute Auto 6.6 x10*3/uL (2.0-8.3); Neutrophils Percent Auto 59.6 % (45-73); Platelet Count 363 X10*3/uL (160-400); Red Cell Distribution Width 13.3 % (11.0-16.0)
[2021-12-06 08:05] LABS: Phosphorus 3.8 mg/dL (2.7-4.5)
[2021-12-06 08:12] LABS: Alanine Aminotransferase 34 U/L (0-40); Albumin Level 4.7 g/dL (3.5-5.0); Alkaline Phosphatase 43 U/L (39-117); Anion Gap 16 (12-20); Aspartate Amino Transferase 18 U/L (5-37); Bilirubin Total 0.4 mg/dL (0.0-1.0); Blood Urea Nitrogen 12 mg/dL (9-16); Calcium 10.7 mg/dL (8.4-10.2); Carbon Dioxide 26 mmol/L (22-29); Chloride 102 mmol/L (96-108); Estimated Glomerular Filt Rate > 60; Glucose Random 111 mg/dL (60-115); Potassium 4.8 mmol/L (3.3-5.1); Sodium 139 mmol/L (135-145); Total Protein 7.1 g/dL (6.5-8.0)
[2021-12-06 08:24] LABS: Valproate 138.3 mcg/mL (50.0-100.0)
[2021-12-06 08:30] LABS: TSH reflex Free T4 13.96 uIU/mL (0.32-4.0)
[2021-12-06 08:32] LABS: Thyroid Stimulating Hormone 11.81 uIU/mL (0.32-4.0)
[2021-12-06 08:35] LABS: Free T4 (Free Thyroxine) 0.95 ng/dL (0.71-1.85)
[2021-12-06 09:03] LABS: Folate 6.4 ng/mL (> or = 4.0); Vitamin B12 895 pg/mL (200-900)
[2021-12-07 16:01] LABS: Calcium (PTHI) 10.4 mg/dL (8.6-10.3); PTHI 34 pg/mL (16-77)
[2021-12-08 14:27] LABS: Vitamin D 25-OH Total 34.1 ng/mL (>30)
== END 2021-12-06 06:18 | disposition home or self-care (01) ==
LOC: HO.LAB 06:17
PROVIDERS: Absent Provider Internal Medicine; PCP Physician Assistant; Visit Provider Nurse Practitioner Acute Care
DX: C73 Malignant neoplasm of thyroid gland (principal); R56.9 Unspecified convulsions; E04.2 Nontoxic multinodular goiter; E55.9 Vitamin D deficiency, unspecified
CPT/HCPCS: 36415; 80053; 80164; 82306; 82607; 82746; 83970; 84100; 84439; 84443; 85025

== ENCOUNTER 2021-12-16 07:43 | Outpatient (REF) | payer OTHER, SELFPAY | END 2021-12-16 07:44 | disposition home or self-care (01) | LOC: HO.MDS 07:43 | PROVIDERS: Visit Provider Internal Medicine Pulmonary Disease | DX: J45.50 Severe persistent asthma, uncomplicated (principal) | CPT/HCPCS: 96372; J2182 ==

== ENCOUNTER 2022-01-04 09:45 | Outpatient (REF) | payer OTHER, SELFPAY ==
--- NOTE | 2022-01-04 13:49 | PFT_ITS ---
Forced vital capacity 77%, FEV1 54%. FEV1/FVC ratio is 56. FEF 25-75 is 31% and MVV 46%. Post bronchodilator therapy, there is a significant improvement in FVC, FEV1, and VVR28-39. Total lung capacity 105% and residual volume 193%. Diffusion capacity 84%, normal. CONCLUSION: Moderately severe obstructive airway disorder. Excellent response to bronchodilator therapy. These findings are consistent with asthma/COPD overlap syndrome. There is evidence of some air trapping. Clinical correlation recommended. MD PATY Cobb/MODL / [id number]
== END 2022-01-04 09:46 | disposition home or self-care (01) ==
LOC: HO.RESP 09:45
PROVIDERS: PCP Physician Assistant; Visit Provider Internal Medicine Pulmonary Disease
DX: J45.50 Severe persistent asthma, uncomplicated (principal)
CPT/HCPCS: 94060; 94727; 94729

== ENCOUNTER 2022-01-13 07:50 | Outpatient (REF) | payer OTHER, SELFPAY | END 2022-01-13 07:51 | disposition home or self-care (01) | LOC: HO.MDS 07:50 | PROVIDERS: Visit Provider Internal Medicine Pulmonary Disease | DX: J45.50 Severe persistent asthma, uncomplicated (principal) | CPT/HCPCS: 96372; J2182 ==

== ENCOUNTER 2022-01-18 06:09 | Outpatient (REF) | payer OTHER, SELFPAY ==
[2022-01-18 07:48] LABS: Phosphorus 3.1 mg/dL (2.7-4.5)
[2022-01-18 08:11] LABS: Free T4 (Free Thyroxine) 1.15 ng/dL (0.71-1.85); Thyroid Stimulating Hormone 1.46 uIU/mL (0.32-4.0)
[2022-01-19 13:05] LABS: Calcium (PTHI) 8.9 mg/dL (8.6-10.3); PTHI 59 pg/mL (16-77)
== END 2022-01-18 06:10 | disposition home or self-care (01) ==
LOC: HO.LAB 06:09
PROVIDERS: PCP Physician Assistant; Visit Provider Internal Medicine
DX: E83.52 Hypercalcemia (principal); E03.9 Hypothyroidism, unspecified
CPT/HCPCS: 36415; 82306; 83970; 84100; 84439; 84443

== ENCOUNTER → 2022-01-19 07:51 | Outpatient (BNVA) | payer OTHER, SELFPAY | PROVIDERS: PCP Physician Assistant; Visit Provider Internal Medicine | DX: Z13.89 Encounter for screening for other disorder (principal) ==

== ENCOUNTER 2022-01-19 09:37 | Outpatient (REF) | payer OTHER, SELFPAY ==
[2022-01-19 10:55] LABS: Alanine Aminotransferase 59 U/L (0-40); Albumin Level 4.7 g/dL (3.5-5.0); Alkaline Phosphatase 52 U/L (39-117); Anion Gap 14 (12-20); Aspartate Amino Transferase 27 U/L (5-37); Bilirubin Total 0.5 mg/dL (0.0-1.0); Blood Urea Nitrogen 9 mg/dL (9-16); Calcium 9.4 mg/dL (8.4-10.2); Carbon Dioxide 25 mmol/L (22-29); Chloride 104 mmol/L (96-108); Estimated Glomerular Filt Rate > 60; Glucose Random 131 mg/dL (60-115); Potassium 4.6 mmol/L (3.3-5.1); Sodium 138 mmol/L (135-145); Total Protein 7.2 g/dL (6.5-8.0)
[2022-01-19 10:56] LABS: Valproate 35.1 mcg/mL (50.0-100.0)
[2022-01-19 11:17] LABS: TSH reflex Free T4 1.23 uIU/mL (0.32-4.0)
[2022-01-21 06:31] LABS: Thyroglobulin <0.1 ng/mL; Thyroglobulin Antibodies <1 IU/mL (< or = 1)
[2022-01-26 12:32] LABS: Vitamin D 25-OH, D2 <4 ng/mL; Vitamin D 25-OH, D3 27 ng/mL; Vitamin D 25-OH, Total 27 ng/mL (30-100)
== END 2022-01-19 09:38 | disposition home or self-care (01) ==
LOC: HO.LAB 09:37
PROVIDERS: Nurse Practitioner Acute Care; PCP Physician Assistant; Visit Provider Internal Medicine
DX: R56.9 Unspecified convulsions (principal); E03.9 Hypothyroidism, unspecified; E83.52 Hypercalcemia; C73 Malignant neoplasm of thyroid gland; Z79.899 Other long term (current) drug therapy
CPT/HCPCS: 36415; 80053; 80164; 82306; 84432; 84443; 86800

== ENCOUNTER 2022-02-10 07:49 | Outpatient (REF) | payer OTHER, SELFPAY | END 2022-02-10 07:50 | disposition home or self-care (01) | LOC: HO.MDS 07:49 | PROVIDERS: Visit Provider Internal Medicine Pulmonary Disease | DX: J45.50 Severe persistent asthma, uncomplicated (principal) | CPT/HCPCS: 96372; J2182 ==

== ENCOUNTER 2022-03-10 07:49 | Outpatient (REF) | payer OTHER, SELFPAY | END 2022-03-10 07:50 | disposition home or self-care (01) | LOC: HO.MDS 07:49 | PROVIDERS: Visit Provider Internal Medicine Pulmonary Disease | DX: J45.50 Severe persistent asthma, uncomplicated (principal) | CPT/HCPCS: 96372; J2182 ==

== ENCOUNTER → 2022-03-14 08:40 | Outpatient (BNVA) | payer OTHER, SELFPAY | PROVIDERS: PCP Physician Assistant; Visit Provider Internal Medicine Endocrinology, Diabetes & Metabolism | DX: C73 Malignant neoplasm of thyroid gland (principal) | CPT/HCPCS: 96372 ==

== ENCOUNTER 2022-03-14 18:03 | Emergency (ER) | payer OTHER, SELFPAY ==
--- NOTE | ~2022-03-14 | XR_ITS ---
EXAMINATION: XR CHEST CLINICAL INFORMATION: Wheezing COMPARISON: 10/13/2020 TECHNIQUE: Frontal view of the chest was obtained. FINDINGS: No significant abnormality is noted involving the heart, lungs, mediastinum, bony thorax or soft tissues. XR/XR chest 1V IMPRESSION: Unremarkable examination.
[2022-03-14 19:39] VITALS: BP 137/62; PULSE 62; RESP 16; TEMP 36.1; O2SAT 96; BMI 28.4
[2022-03-14] MEDS: Ondansetron ODT 4 MG TAB.RAPDIS TRANSLINGU (19:46)
[2022-03-14 20:54] VITALS: BP 150/79; PULSE 58; RESP 16; TEMP 36.9; O2SAT 97
--- NOTE | 2022-03-14 21:11 | ED.NAVMDI ---
HPI - Nausea/Vomiting/Diarrhea General Chief complaint: Nausea/Vomiting/Diarrhea Stated complaint: nausea,vomiting after Thyrogen shot Source: patient Mode of arrival: ambulatory Limitations: no limitations History of Present Illness HPI Narrative: 41-year-old male presents for nausea, vomiting, and mild abdominal pain after his 1st Thyrogen shot. He had a thyroidectomy in November, for thyroid cancer. Received his 1st injection this morning, and noted to feel ill 2 hours after medication administration. Patient states that he has some shortness breath, feels chest tightness consistent with asthma, and feels fatigued. He does not report fevers, chills, abdominal distention, lost balance, hives, or headaches. MD elicited complaint: nausea and vomiting Pertinent past history: other (Thyroid cancer, new medication) Onset (ago): day(s) (1) Description of vomiting: food contents Associated nausea: Yes Associated abdominal pain: Yes Location of pain: diffuse Pain consistency: intermittent Severity: mild Quality: aching Exacerbating factors: none Relieving factors: none Associated symptoms: shortness of breath Related Data Home Medications Medication Instructions Recorded Confirmed qqinxzncmc-lhneybxfrioda-sbzhyvpf 1 cap PO Q8H PRN Migraine Headache 06/21/20 03/14/22 50 mg-325 mg-40 mg capsule midodrine 2.5 mg tablet 1 tab PO BID 10/13/20 03/14/22 fluconazole 200 mg tablet 200 mg PO DAILY PRN 01/10/21 03/14/22 fluoxetine 20 mg capsule 20 mg PO DAILY 06/30/21 03/14/22 Previous Rx's Medication Instructions Recorded levetiracetam 1,000 mg tablet 1,500 mg PO BID #60 tabs 10/15/20 aluminum-mag hydroxide-simethicone 5 ml PO Q3H PRN dyspepsia 30 days 11/07/20 200 mg-200 mg-20 mg/5 mL oral susp #3,000 mL (Maalox Advanced) montelukast 10 mg tablet 10 mg PO BEDTIME #30 tabs 04/18/21 divalproex 500 mg tablet,delayed 500 mg PO BID #60 tabs 04/28/21 release tiotropium bromide 2.5 2 puff PO DAILY 30 days #4 grams 04/28/21 mcg/actuation mist for inhalation (Spiriva Respimat) aspirin 81 mg tablet,delayed 81 mg PO DAILY 90 days #90 tabs 10/25/21 release carvedilol 3.125 mg tablet 3.125 mg PO BID 90 days #180 tabs 07/11/21 pantoprazole 40 mg tablet,delayed 40 mg PO DAILY 90 days #90 tabs 07/11/21 release divalproex 500 mg tablet,delayed 1,500 mg PO BID 30 days #180 tabs 10/27/21 release (Depakote) sertraline 100 mg tablet 100 mg PO DAILY 90 days #90 tabs 10/27/21 mupirocin 2 % topical ointment 1 appl topical BID 15 days #22 11/01/21 grams nystatin 100,000 unit/mL oral 5 ml PO DAILY PRN thrush 30 days 11/01/21 suspension #200 mL theophylline 400 mg 200 mg PO DAILY #15 tabs 12/01/21 tablet,extended release 24 hr mepolizumab 100 mg/mL subcutaneous 100 mg subcut Q4W 30 days #1 mL 01/04/22 syringe (Nucala) levothyroxine 175 mcg tablet 175 mcg PO DAILY 30 days #30 tabs 01/19/22 thyrotropin mir 0.9 mg 0.9 mg IM DAILY 2 doses #2 mL 01/19/22 intramuscular solution (Thyrogen) cholecalciferol (vitamin D3) 50 50 mcg PO DAILY #90 caps 01/26/22 mcg (2,000 unit) capsule albuterol sulfate 90 mcg/actuation 2 puff PO Q6H PRN for dyspnea #8.5 02/27/22 aerosol inhaler (ProAir HFA) grams albuterol sulfate 90 mcg/actuation 2 inh inhalation Q4-6H PRN 03/14/22 breath activated powder inhaler shortness of breath or wheezing #1 ea atorvastatin 40 mg tablet 40 mg PO BEDTIME 90 days #90 tabs 03/14/22 lisinopril 10 mg tablet 10 mg PO DAILY 90 days #90 tabs 03/14/22 Allergies Allergy/AdvReac Type Severity Reaction Status Date / Time cat dander [CATS] Allergy Mild GENERALIZED Verified 03/14/22 08:04 ALLERGY SYMPTOMS dog dander [DOGS] Allergy Mild GENERALIZED Verified 03/14/22 08:04 ALLERGY SYMPTOMS tree and shrub pollen [TREE] Allergy Mild GENERALIZED Verified 03/14/22 08:04 ALLERGY SYMPTOMS FROM [place] Review of Systems Review of Systems: Constitutional: No Fever, No Chills ENT/Mouth: No Ear Pain, No Hoarseness, No sore throat Eyes: No Eye Pain, No Swelling, No Redness, No Foreign Body Cardiovascular: No Chest Pain, positive SOB Respiratory: No Cough, no Dyspnea, positive wheezing Gastrointestinal: Jose Nausea, positive Vomiting, No Diarrhea, positive abdominal Pain Genitourinary: No Dysuria, No Hematuria Musculoskeletal: No joint pain, No Myalgias, No Joint Swelling Skin: No Skin lacerations, No rash Neuro: No Weakness, No Numbness, No Paresthesias, No Loss of Consciousness, No Dizziness, No Headache Psych: No Anxiety/Panic, No Depression Heme/Lymph: no easy bruising, no Lymphadenopathy Endocrine: No Polyuria, No Polydipsia Yes all other systems are reviewed and are negative Gastrointestinal: Gastrointestinal: Reports nausea PMFSH Past Medical History Attestation statement: The following information was validated with the patient. Source: old records reviewed Medical History Asthma Seizures Surgical History History of cholecystectomy S/P removal of thyroid nodule Family History Family History Maternal Grandmother Emphysema, unspecified Father Diabetes Mother No problems noted. Social History Social History Housing: Apartment Alcohol intake: never Patient Tobacco Use Status: Never used Tobacco e-Cigarette/Vaping Use: Never Used Second Hand Smoke Exposure: No Use of substances other than those prescribed or required for medical reasons: Yes Substance Use Type: Marijuana Substance Use Frequency: Occasionally Advance Directives: No Advance Directives Information Provided: Yes service: No Current occupational status: disabled Current occupation: rt handed Cognitive needs: No Hearing needs: No Vision needs: No Physical Exam Vital Signs: Vital Signs: Last Vital Signs Temp 98.4 F 03/14/22 21:57 Pulse 71 03/14/22 21:57 Resp 16 03/14/22 21:57 BP 128/71 03/14/22 21:57 Pulse Ox 98 03/14/22 21:57 O2 Del Method 03/14/22 21:57 BMI result Body Mass Index 28.4 Appearance: Alert. Oriented X3. No acute distress. Eyes: Pupils equal, round and reactive to light. EOMI. Sclera nonicteric. ENT: Pharynx normal. Moist mucous membranes. Neck: Normal inspection. Neck supple. CVS: Normal heart rate and rhythm. Pulses normal. Respiratory: No respiratory distress. Expiratory wheezing throughout. Abdomen: Soft and nontender to palpation. No rigidity or distention. Skin: Skin warm and dry. Normal skin color. Normal skin turgor. Extremities: No lower extremity edema. Moves all extremities against resistance. Neuro: No motor deficit. No sensory deficit. Cranial nerves 2-12 intact. Course Course Course Narrative: 41-year-old male presents for nausea, vomiting, and mild abdominal pain after receiving his 1st Thyrogen injection today. He started feel ill approximately 2 hours after the medication administration. He received his medication for thyroid cancer, received a thyroidectomy on 12/06. At the time my evaluation patient looks well, nontoxic, afebrile, even unlabored respirations however does have expiratory wheezing throughout. Abdomen is soft, nontender. Will order Solu-Medrol, albuterol, and L of fluid. 22:30 patient appears well, still speaking in complete sentences. Lungs sounds have improved, minimal scattered wheezing noted. Will order albuterol inhaler. I did discuss in detail the patient should follow up with his appointment tomorrow as scheduled. He should discuss his symptoms with his oncologist. Patient verbalized understanding of and agrees plan of care discharge home. Verbalized understanding of signs and symptoms indicating need for emergent intervention. MDM - Nausea/Vomiting/Diarrhea MDM Narrative Medical decision making narrative: Asthma exacerbation Differential Diagnosis Differential diagnosis: Likely gastroenteritis, drug-induced nausea and vomiting and dehydration Medical Records Attestation: I reviewed the patient's medical records. Imaging Data Chest x-ray: Attestation: I personally reviewed and interpreted this imaging study as follows: Radiologist's impression: CLINICAL INFORMATION: Wheezing COMPARISON: 10/13/2020 TECHNIQUE: Frontal view of the chest was obtained. FINDINGS: No significant abnormality is noted involving the heart, lungs, mediastinum, bony thorax or soft tissues. XR/XR chest 1V IMPRESSION: Unremarkable examination. ? Discharge Plan Discharge Clinical Impression: Asthma Instructions: Asthma (ED) Additional Instructions: You were evaluated for an episode of nausea and vomiting after receiving Thyrogen. Please continue to follow-up with your oncologist and discuss your symptoms with them. We treated you for asthma exacerbation with Solu-Medrol 125 mg, albuterol, and a L of fluid. I refilled your albuterol inhaler prescription. Please take albuterol as prescribed for asthma symptoms. Thank you for choosing this emergency department for evaluation. Please follow-up with primary care physician as needed. Return to the emergency department for any new, concerning, or worsening symptoms. Prescriptions: New albuterol sulfate 90 mcg/actuation aerosol powdr breath activated 2 inh inhalation Q4-6H PRN (Reason: shortness of breath or wheezing) Qty: 1 2RF No Action alum-mag hydroxide-simeth [Maalox Advanced] 200-200-20 mg/5 mL suspension 5 ml PO Q3H PRN (Reason: dyspepsia) 30 Days Qty: 3000 1RF montelukast 10 mg tablet 10 mg PO BEDTIME Qty: 30 4RF pantoprazole 40 mg tablet,delayed release (DR/EC) 40 mg PO DAILY 90 Days Qty: 90 2RF carvedilol 3.125 mg tablet 3.125 mg PO BID 90 Days Qty: 180 2RF aspirin 81 mg tablet,delayed release (DR/EC) 81 mg PO DAILY 90 Days Qty: 90 2RF sertraline 100 mg tablet 100 mg PO DAILY 90 Days Qty: 90 1RF theophylline 400 mg tablet extended release 24 hr 200 mg PO DAILY Qty: 15 6RF Nucala 100 mg/mL syringe 100 mg subcut Q4W 30 Days Qty: 1 12RF Thyrogen 0.9 mg recon soln 0.9 mg IM DAILY Qty: 2 0RF cholecalciferol (vitamin D3) 50 mcg (2,000 unit) capsule 50 mcg PO DAILY Qty: 90 0RF albuterol sulfate [ProAir HFA] 90 mcg/actuation HFA aerosol inhaler 2 puff PO Q6H PRN (Reason: for dyspnea) Qty: 8.5 6RF midodrine 2.5 mg tablet 1 tab PO BID levetiracetam 1,000 mg Tablet 1,500 mg PO BID Qty: 60 0RF fluconazole 200 mg tablet 200 mg PO DAILY PRN divalproex [Depakote] 500 mg tablet,delayed release (DR/EC) 1,500 mg PO BID 30 Days Qty: 180 0RF divalproex 500 mg tablet,delayed release (DR/EC) 500 mg PO BID Qty: 60 2RF Spiriva Respimat 2.5 mcg/actuation mist 2 puff PO DAILY 30 Days Qty: 4 3RF lisinopril 10 mg tablet 10 mg PO DAILY 90 Days Qty: 90 3RF atorvastatin 40 mg tablet 40 mg PO BEDTIME 90 Days Qty: 90 3RF mupirocin 2 % ointment 1 appl topical BID 15 Days Qty: 22 0RF nystatin 100,000 unit/mL suspension 5 ml PO DAILY PRN (Reason: thrush) 30 Days Qty: 200 3RF Rx Instructions: administer 1/2 of dose in each side of the mouth evfnzjkpbf-osngihwtdyakd-spmh 50-325-40 mg capsule 1 cap PO Q8H PRN (Reason: Migraine Headache) fluoxetine 20 mg capsule 20 mg PO DAILY levothyroxine 175 mcg tablet 175 mcg PO DAILY 30 Days Qty: 30 4RF
[2022-03-14] MEDS: Albuterol Sulfate (0.083%) 2.5 MG/3 ML VIAL.NEB 5 MG INHALE (21:20)
[2022-03-14 21:21] VITALS: PULSE 70; RESP 16; O2SAT 96
[2022-03-14 21:57] VITALS: BP 128/71; PULSE 71; RESP 16; TEMP 36.9; O2SAT 98
[2022-03-14] MEDS: methylPREDNISolone Sod Succ 125 MG/2 ML VIAL IVPUSH (22:17)
[2022-03-14] MEDS: Albuterol Sulfate 90 MCG 8 GM INHALER 2 PUFF INHALE (23:00)
== END 2022-03-15 00:51 | disposition home or self-care (01) ==
PROVIDERS: Emergency Provider Emergency Medicine; PCP Physician Assistant
DX: J45.909 Unspecified asthma, uncomplicated (principal); R11.2 Nausea with vomiting, unspecified; E89.0 Postprocedural hypothyroidism; Z85.850 Personal history of malignant neoplasm of thyroid; Z79.899 Other long term (current) drug therapy
CPT/HCPCS: 71045; 94640; 94644; 96374; 99284; 99285; J2930

== ENCOUNTER 2022-03-15 05:56 | Outpatient (REF) | payer OTHER, SELFPAY ==
[2022-03-15 08:32] LABS: Estimated Average Glucose 126 mg/dL; Hemoglobin A1C 164.4704 umol/L
[2022-03-15 08:39] LABS: Cholesterol 282 mg/dL; HDL Cholesterol 35 mg/dL; LDL Cholesterol Calculated 210 mg/dl; Triglycerides 188 mg/dL
[2022-03-15 09:06] LABS: Free T4 (Free Thyroxine) 1.16 ng/dL (0.71-1.85)
[2022-03-17 01:41] LABS: Thyroglobulin 0.6 ng/mL; Thyroglobulin Antibodies <1 IU/mL (< or = 1)
== END 2022-03-15 05:57 | disposition home or self-care (01) ==
LOC: HO.LAB 05:56
PROVIDERS: Psychiatry & Neurology Neurology; Absent Provider Physician Assistant; PCP Physician Assistant; Visit Provider Internal Medicine
DX: I51.81 Takotsubo syndrome (principal); E89.0 Postprocedural hypothyroidism; C73 Malignant neoplasm of thyroid gland; G40.909 Epilepsy, unspecified, not intractable, without status epilepticus; Z79.899 Other long term (current) drug therapy
CPT/HCPCS: 36415; 80061; 80164; 83036; 84432; 84439; 84443; 86800

== ENCOUNTER → 2022-03-28 08:54 | Outpatient (BNVA) | payer OTHER, SELFPAY | PROVIDERS: PCP Physician Assistant; Visit Provider Internal Medicine Pulmonary Disease | DX: J45.50 Severe persistent asthma, uncomplicated (principal); G47.33 Obstructive sleep apnea (adult) (pediatric); Z91.09 Other allergy status, other than to drugs and biological substances; Z79.899 Other long term (current) drug therapy; Z99.89 Dependence on other enabling machines and devices | CPT/HCPCS: 99212 ==

== ENCOUNTER 2022-04-07 07:50 | Outpatient (REF) | payer OTHER, SELFPAY | END 2022-04-07 07:51 | disposition home or self-care (01) | LOC: HO.MDS 07:50 | PROVIDERS: Visit Provider Internal Medicine Pulmonary Disease | DX: J45.50 Severe persistent asthma, uncomplicated (principal) | CPT/HCPCS: 96372; J2182 ==

== ENCOUNTER 2022-04-12 13:55 | Emergency (ER) | payer OTHER, SELFPAY ==
--- NOTE | ~2022-04-12 | XR_ITS ---
EXAMINATION: XR CHEST CLINICAL INFORMATION: Pain with deep breathing. COMPARISON: 03.14.2022 TECHNIQUE: Frontal view of the chest was obtained. FINDINGS: No significant abnormality is noted involving the heart, lungs, mediastinum, bony thorax or soft tissues. XR/XR chest 1V IMPRESSION: Unremarkable examination.
--- NOTE | ~2022-04-12 | CT_ITS ---
EXAMINATION: CT ABDOMEN AND PELVIS WITHOUT CONTRAST CLINICAL INFORMATION: Severe diffuse abdominal pain COMPARISON: CT abdomen pelvis 10/03/2020 TECHNIQUE: Multidetector volumetric imaging was performed from the superior aspect of the liver through the pubic symphysis. Sagittal and coronal reformatted images were obtained on the technologist's workstation. This CT examination was performed using dose optimization techniques as appropriate, variously including the following: *Automated exposure control *Adjustment of mA and/or kV according to patient size (this includes techniques or standardized protocols for targeted exams where dose is matched to indication/reason for exam; i.e. extremities or head) *Use of iterative reconstruction technique DLP: 567 mGy-cm FINDINGS: LUNG BASES: The visualized lung bases are unremarkable. LIVER, GALLBLADDER, AND BILIARY TREE: The liver is enlarged at 20.4 cm in cephalocaudad dimension and demonstrates decreased attenuation consistent with hepatic steatosis. No focal hepatic lesion or biliary ductal dilatation is present. Status post cholecystectomy. PANCREAS: Unremarkable. SPLEEN: Unremarkable. ADRENAL GLANDS: Unremarkable. KIDNEYS AND URETERS: The kidneys are normal in size, shape, and attenuation. No hydronephrosis, hydroureter, or calculi seen. No perinephric stranding. BLADDER: Unremarkable. GASTROINTESTINAL TRACT: The small and large bowel are unremarkable aside from colonic diverticula without diverticulitis. The appendix is unremarkable. ABDOMINAL WALL: No significant hernia is appreciated. LYMPH NODES: Normal. VASCULAR: Unremarkable. PELVIC VISCERA: Unremarkable. OSSEOUS STRUCTURES: Unremarkable. CT/CT abdomen pelvis wo con IMPRESSION: Enlarged fatty liver and diverticulosis without diverticulitis. A cause for the patient's diffuse abdominal pain has not been found. Fleischner guidelines were followed.
[2022-04-12 14:23] LABS: MANUAL DIFF FLAG NO
[2022-04-12 14:29] LABS: Basophils Percent Auto 0.3 % (0-2); Eosinophils Percent Auto 0.5 % (0-4); Hematocrit 40.7 % (42.0-52.0); Hemoglobin 13.8 g/dl (14.0-18.0); Imm Gran Abs Auto 0.14 X10*3/uL (0.00-0.03); Imm Gran Pct Auto 1.8 % (0.0-0.4); Lymphocytes Absolute Auto 2.7 X10*3/uL (1.2-4.9); Lymphocytes Percent Auto 34.1 % (20-40); Mean Corpuscular HGB Conc 33.9 g/dl (31.0-36.0); Mean Corpuscular Hemoglobin 29.7 pg (27.0-33.0); Mean Corpuscular Volume 87.7 fL (80.0-98.0); Mean Platelet Volume 9.7 fL (9.4-12.4); Monocytes Absolute Auto 0.8 X10*3/uL (0.1-1.2); Monocytes Percent Auto 10.1 % (2-11); Neutrophils Absolute Auto 4.3 x10*3/uL (2.0-8.3); Neutrophils Percent Auto 53.2 % (45-73); Platelet Count 333 X10*3/uL (160-400); Red Blood Count 4.64 X10*6/uL (4.60-5.80); Red Cell Distribution Width 13.2 % (11.0-16.0)
[2022-04-12 14:46] LABS: Alanine Aminotransferase 26 U/L (0-40); Albumin Level 4.3 g/dL (3.5-5.0); Alkaline Phosphatase 42 U/L (39-117); Anion Gap 15 (12-20); Aspartate Amino Transferase 29 U/L (5-37); Bilirubin Total 0.2 mg/dL (0.0-1.0); Blood Urea Nitrogen 14 mg/dL (9-16); Calcium 9.1 mg/dL (8.4-10.2); Carbon Dioxide 20 mmol/L (22-29); Chloride 110 mmol/L (96-108); Estimated Glomerular Filt Rate > 60; Glucose Random 125 mg/dL (60-115); Potassium 4.9 mmol/L (3.3-5.1); Sodium 140 mmol/L (135-145); Total Protein 7.2 g/dL (6.5-8.0)
[2022-04-12 15:20] VITALS: BP 124/82; PULSE 71; RESP 18; TEMP 36.8; O2SAT 97; BMI 28.2
--- NOTE | 2022-04-12 21:58 | ED.ABDPAIN ---
HPI - Abdominal Pain General Chief Complaint: Abdominal Pain <PEYMAN Almeida Last Filed: 04/13/22 02:11> Stated Complaint: abd pain <PEYMAN Almeida Last Filed: 04/13/22 02:11> Time Seen by Provider: 04/12/22 21:57 <PEYMAN Almeida Last Filed: 04/13/22 02:11> Source: patient <PEYMAN Almeida - Last Filed: 04/13/22 02:11> Mode of arrival: ambulatory <PEYMAN Almeida Last Filed: 04/13/22 02:11> Limitations: no limitations <PEYMAN Almeida Last Filed: 04/13/22 02:11> History of Present Illness HPI narrative: 41-year-old male past medical history significant for hypothyroidism, thyroid cancer, seizures, asthma, cardiomyopathy presenting to the emergency department with complaints of severe diffuse abdominal pain since Sunday (3 days ago). Patient tells me that this pain started suddenly it is felt like gas spells he reports that the pain it is severe in nature, constant, he tells me it feels like the time he had an inflamed gallbladder and had to get it out. He tells me that when he presses on his stomach it feels worse. Reports vague complaints of nausea. Denies fevers, chills, chest pain, shortness of breath, diarrhea, changes in urinary habits, weakness, headache, dizziness. <PEYMAN Almeida Last Filed: 04/13/22 02:11> MD elicited complaint: abdominal pain <PEYMAN Almeida - Last Filed: 04/13/22 02:11> Pertinent past history: none <PEYMAN Almeida Last Filed: 04/13/22 02:11> Onset (ago): day(s) (3) <PEYMAN Almeida Last Filed: 04/13/22 02:11> Pain Consistency: constant <PEYMAN Almeida Last Filed: 04/13/22 02:11> Location: diffuse <PEYMAN Almeida Last Filed: 04/13/22 02:11> Severity: severe <PEYMAN Almeida - Last Filed: 04/13/22 02:11> Quality: cramping and other ( gas spells ) <PEYMAN Almeida - Last Filed: 04/13/22 02:11> Radiation: none <PEYMAN Almeida - Last Filed: 04/13/22 02:11> Migration to: no migration <PEYMAN Almeida - Last Filed: 04/13/22 02:11> Exacerbating factors: other (palpation ) <PEYMAN Almeida - Last Filed: 04/13/22 02:11> Relieving factors: nothing <PEYMAN Almeida - Last Filed: 04/13/22 02:11> Associated symptoms: nausea <PEYMAN Almeida - Last Filed: 04/13/22 02:11> Related Data Home Medications: Home Medications Medication Instructions Recorded Confirmed [id number]-mzhvytah 1 cap PO Q8H PRN Migraine Headache 06/21/20 03/22/22 50 mg-325 mg-40 mg capsule midodrine 2.5 mg tablet 1 tab PO BID 10/13/20 03/22/22 fluconazole 200 mg tablet 200 mg PO DAILY PRN 01/10/21 03/22/22 fluoxetine 20 mg capsule 20 mg PO DAILY 06/30/21 03/22/22 Previous Rx's Medication Instructions Recorded levetiracetam 1,000 mg tablet 1,500 mg PO BID #60 tabs 10/15/20 aluminum-mag hydroxide-simethicone 5 ml PO Q3H PRN dyspepsia 30 days 11/07/20 200 mg-200 mg-20 mg/5 mL oral susp #3,000 mL (Maalox Advanced) montelukast 10 mg tablet 10 mg PO BEDTIME #30 tabs 04/18/21 divalproex 500 mg tablet,delayed 500 mg PO BID #60 tabs 04/28/21 release tiotropium bromide 2.5 2 puff PO DAILY 30 days #4 grams 04/28/21 mcg/actuation mist for inhalation (Spiriva Respimat) divalproex 500 mg tablet,delayed 1,500 mg PO BID 30 days #180 tabs 10/27/21 release (Depakote) mupirocin 2 % topical ointment 1 appl topical BID 15 days #22 11/01/21 grams nystatin 100,000 unit/mL oral 5 ml PO DAILY PRN thrush 30 days 11/01/21 suspension #200 mL theophylline 400 mg 200 mg PO DAILY #15 tabs 12/01/21 tablet,extended release 24 hr mepolizumab 100 mg/mL subcutaneous 100 mg subcut Q4W 30 days #1 mL 01/04/22 syringe (Nucala) levothyroxine 175 mcg tablet 175 mcg PO DAILY 30 days #30 tabs 01/19/22 thyrotropin mir 0.9 mg 0.9 mg IM DAILY 2 doses #2 mL 01/19/22 intramuscular solution (Thyrogen) cholecalciferol (vitamin D3) 50 50 mcg PO DAILY #90 caps 01/26/22 mcg (2,000 unit) capsule albuterol sulfate 90 mcg/actuation 2 puff PO Q6H PRN for dyspnea #8.5 02/27/22 aerosol inhaler (ProAir HFA) grams albuterol sulfate 90 mcg/actuation 2 inh inhalation Q4-6H PRN 03/14/22 breath activated powder inhaler shortness of breath or wheezing #1 ea atorvastatin 40 mg tablet 40 mg PO BEDTIME 90 days #90 tabs 03/14/22 lisinopril 10 mg tablet 10 mg PO DAILY 90 days #90 tabs 03/14/22 prednisone 5 mg tablet See Rx Instructions PO DAILY 42 03/28/22 days #150 tabs aspirin 81 mg tablet,delayed 81 mg PO DAILY 90 days #90 tabs 04/02/22 release carvedilol 3.125 mg tablet 3.125 mg PO BID 90 days #180 tabs 04/02/22 pantoprazole 40 mg tablet,delayed 40 mg PO DAILY 90 days #90 tabs 04/02/22 release sertraline 100 mg tablet 100 mg PO DAILY 90 days #90 tabs 04/03/22 ondansetron 4 mg disintegrating 4 mg PO Q6-8H PRN nausea and 04/13/22 tablet vomiting #14 tabs <PEYMAN Almeida - Last Filed: 04/13/22 02:11> Allergies/Adverse Reactions: Allergies Allergy/AdvReac Type Severity Reaction Status Date / Time cat dander [CATS] Allergy Mild GENERALIZED Verified 03/28/22 08:59 ALLERGY SYMPTOMS dog dander [DOGS] Allergy Mild GENERALIZED Verified 03/28/22 08:59 ALLERGY SYMPTOMS tree and shrub pollen [TREE] Allergy Mild GENERALIZED Verified 03/28/22 08:59 ALLERGY SYMPTOMS FROM [place] <PEYMAN Almeida - Last Filed: 04/13/22 02:11> Review of Systems Review of Systems Constitutional : No Weight loss, No Fever, No Chills, No Fatigue, No Malaise ENT/Mouth : No sore throat, No Rhinorrhea Eyes: No Eye Pain, No Swelling, No Redness Cardiovascular : No Chest Pain, No SOB, No Dyspnea on Exertion, No Orthopnea, No Edema, No Palpitations Respiratory : No Cough, No Sputum, No Wheezing Gastrointestinal : + Nausea, No Vomiting, No Diarrhea, No Constipation, + abdominal Pain, No Hematochezia, No Melena Genitourinary : No Dysuria, No Urinary Frequency, No Hematuria, Musculoskeletal : No joint pain, No Myalgias, No Joint Swelling Skin : No Skin Lesions, No rash Neuro : No Weakness, No Numbness, No Dizziness, No Headache Psych : No Anxiety/Panic, No Depression All other systems reviewed and are negative <PEYMAN Almeida Last Filed: 04/13/22 02:11> Yes all other systems are reviewed and are negative <PEYMAN Almeida Last Filed: 04/13/22 02:11> [facility] Past Medical History Attestation statement: The following information was validated with the patient. <PEYMAN Almeida Last Filed: 04/13/22 02:11> Source: old records reviewed and nursing notes reviewed <PEYMAN Almeida Last Filed: 04/13/22 02:11> Medical History: Medical History Asthma Multinodular thyroid Myocardial infarct Postoperative hypothyroidism Seizures Thyroid cancer Vitamin D deficiency <PEYMAN Almeida Last Filed: 04/13/22 02:11> Surgical History: Surgical History History of cholecystectomy S/P removal of thyroid nodule <PEYMAN Almeida - Last Filed: 04/13/22 02:11> Family History Family History: Family History Maternal Grandmother Emphysema, unspecified Father Diabetes Mother No problems noted. <PEYMAN Almeida - Last Filed: 04/13/22 02:11> Social History Social History: Social History Housing: Apartment Alcohol intake: former Patient Tobacco Use Status: Never used Tobacco e-Cigarette/Vaping Use: Never Used Second Hand Smoke Exposure: No Use of substances other than those prescribed or required for medical reasons: No Substance Use Type: Marijuana Advance Directives: No Advance Directives Information Provided: No service: No Current occupational status: disabled Current occupation: rt handed Cognitive needs: No Hearing needs: No Vision needs: No <PEYMAN Almeida - Last Filed: 04/13/22 02:11> Physical Exam ED Vital Signs: Vital Signs - 24 hr 04/12/22 15:20 04/12/22 23:56 Temperature 98.2 F Pulse Rate 71 68 Respiratory Rate 18 18 Blood Pressure 124/82 140/72 H Pulse Oximetry 97 99 Oxygen Delivery Method Room Air Room Air BMI result Body Mass Index 28.2 VSS <PEYMAN Almeida - Last Filed: 04/13/22 02:11> Vital Signs - 24 hr 04/12/22 15:20 04/12/22 23:56 Temperature 98.2 F Pulse Rate 71 68 Respiratory Rate 18 18 Blood Pressure 124/82 140/72 H Pulse Oximetry 97 99 Oxygen Delivery Method Room Air Room Air BMI result Body Mass Index 28.2 <Austen Lomas MD - Last Filed: 04/13/22 04:13> Appearance: Alert.? Oriented X3.? No acute distress.? Head: Normocephalic, atraumatic, no step-offs or deformities Eyes: Pupils equal, round and reactive to light.? ENT: Pharynx normal.? Neck: Normal inspection.? Neck supple.? CVS: Normal heart rate and rhythm.? Pulses normal.? Respiratory: No respiratory distress.? Breath sounds normal.? Abdomen: Soft and + diffusely tender abdomen. Normoactive bowel sounds..? Skin: Skin warm and dry.? Normal skin color.? Normal skin turgor.? Extremities: No lower extremity edema.? No calf ttp. 5/5 strength to bilateral upper and lower extremities Neuro: Oriented X 3.? No motor deficit.? No sensory deficit. CN 2-12 intact <PEYMAN Almeida - Last Filed: 04/13/22 02:11> Course Reevaluation(s) Reevaluation #1: Patient's CBC appears to be within normal limits. Chemistry with no acute electrolyte abnormalities requiring intervention. Urine clean. Patient's CT within enlarged fatty liver and diverticulosis however no diverticulitis. Patient is now complaining of pain with deep breathing. At this time will obtain troponin, D-dimer, chest x-ray, EKG. <PEYMAN Almeida - Last Filed: 04/13/22 02:11> Time: 01:01 <PEYMAN Almeida - Last Filed: 04/13/22 02:11> Reevaluation #2: D-dimer negative. Unlikely that this is a PE. EKG nonischemic. Troponin pending. Sign-out given to pending improvement. Patient was just given tordol. <PEYMAN Almeida - Last Filed: 04/13/22 02:11> Time: 02:11 <PEYMAN Almeida Last Filed: 04/13/22 02:11> Reevaluation #3: The patient's troponin was below detectable limits. The patient did improve after getting the IV Toradol. I did review the patient's laboratory and CT findings. I did discuss these findings with the patient. The patient was given a prescription for Zofran ODT 4 mg every 6-8 hours as needed for nausea vomiting and advised to take Pepcid 20 mg once a day for 1 month and to continue his other medications. He was given printed and verbal instructions abdominal pain and discharged home. <Austen Lomas MD - Last Filed: 04/13/22 04:13> Time: 04:08 <Austen Lomas MD - Last Filed: 04/13/22 04:13> MDM - Abdominal Pain MDM Narrative Medical decision making narrative: [id number] 41 year old male presents w/ severe diffuse abd pain X 3 days worsening. PE w/ diffusely tender abdomen. Concerns for possible appendicitis, diverticulitis, pancreatitis. Will also obtain a urine to rule out UTI. Plan at this time is to obtain a CT of the abdomen pelvis, basic labs, urine, lipase. <PEYMAN Almeida - Last Filed: 04/13/22 02:11> Medical Records Attestation: I reviewed the patient's medical records. <PEYMAN Almeida - Last Filed: 04/13/22 02:11> Lab Data Attestation: I reviewed the patient's lab results. <PEYMAN Almeida - Last Filed: 04/13/22 02:11> Result diagrams: : 04/12/22 14:19 04/12/22 14:19 <PEYMAN Almeida - Last Filed: 04/13/22 02:11> Labs: Lab Results 04/12/22 04/12/22 04/12/22 Range/Units 14:19 14:19 23:18 WBC 8.0 (4.8-10.8) X10*3/uL RBC 4.64 (4.60-5.80) X10*6/uL Hgb 13.8 L (14.0-18.0) g/dl Hct 40.7 L (42.0-52.0) % MCV 87.7 (80.0-98.0) fL MCH 29.7 (27.0-33.0) pg MCHC 33.9 (31.0-36.0) g/dl RDW 13.2 (11.0-16.0) % Plt Count 333 (160-400) X10*3/uL MPV 9.7 (9.4-12.4) fL Immature Gran % (Auto) 1.8 H (0.0-0.4) % Neut % (Auto) 53.2 (45-73) % Lymph % (Auto) 34.1 (20-40) % [place] % (Auto) 10.1 (2-11) % Eos % (Auto) 0.5 (0-4) % Baso % (Auto) 0.3 (0-2) % Lymph # (Auto) 2.7 (1.2-4.9) X10*3/uL [place] # (Auto) 0.8 (0.1-1.2) X10*3/uL Eos # (Auto) 0.0 (0.0-0.4) X10*3/uL Baso # (Auto) 0.0 (0.0-0.2) X10*3/uL Abs Immat Gran (auto) 0.14 H (0.00-0.03) X10*3/uL Absolute Neuts (auto) 4.3 (2.0-8.3) x10*3/uL Absolute Nucleated RBC 0.000 (0.0-0.012) X10*3/uL Nucleated RBC % (auto) 0.0 (0.0-0.2) /100WBC D-Dimer High Sensitivty NG/ML Sodium 140 (135-145) mmol/L Potassium 4.9 (3.3-5.1) mmol/L Chloride 110 H (96-108) mmol/L Carbon Dioxide 20 L (22-29) mmol/L Anion Gap 15 (12-20) BUN 14 D (9-16) mg/dL Creatinine 0.76 (0.5-1.4) mg/dL Estim Creat Clear Calc TNP Estimated GFR > 60 Random Glucose 125 H (60-115) mg/dL Calcium 9.1 (8.4-10.2) mg/dL Total Bilirubin 0.2 (0.0-1.0) mg/dL AST 29 (5-37) U/L ALT 26 (0-40) U/L Alkaline Phosphatase 42 (39-117) U/L Troponin I High Sens (<3.5-35.0) ng/L Total Protein 7.2 (6.5-8.0) g/dL Albumin 4.3 (3.5-5.0) g/dL Lipase 121 H (8-78) U/L Urine Color YELLOW Urine Appearance CLEAR Urine pH 6.5 (5.0-8.0) Ur Specific [place] 1.015 (1.005-1.025) Urine Protein NEG (NEG-TRACE) MG/DL Urine Glucose (UA) NEG (NEG) MG/DL Urine Ketones NEG (NEG) MG/DL Urine Blood NEG (NEG) Urine Nitrite NEG (NEG) Ur Leukocyte Esterase NEG (NEG) 04/13/22 04/13/22 Range/Units 01:41 01:41 WBC (4.8-10.8) X10*3/uL RBC (4.60-5.80) X10*6/uL Hgb (14.0-18.0) g/dl Hct (42.0-52.0) % MCV (80.0-98.0) fL MCH (27.0-33.0) pg MCHC (31.0-36.0) g/dl RDW (11.0-16.0) % Plt Count (160-400) X10*3/uL MPV (9.4-12.4) fL Immature Gran % (Auto) (0.0-0.4) % Neut % (Auto) (45-73) % Lymph % (Auto) (20-40) % [place] % (Auto) (2-11) % Eos % (Auto) (0-4) % Baso % (Auto) (0-2) % Lymph # (Auto) (1.2-4.9) X10*3/uL [place] # (Auto) (0.1-1.2) X10*3/uL Eos # (Auto) (0.0-0.4) X10*3/uL Baso # (Auto) (0.0-0.2) X10*3/uL Abs Immat Gran (auto) (0.00-0.03) X10*3/uL Absolute Neuts (auto) (2.0-8.3) x10*3/uL Absolute Nucleated RBC (0.0-0.012) X10*3/uL Nucleated RBC % (auto) (0.0-0.2) /100WBC D-Dimer High Sensitivty < 150 NG/ML Sodium (135-145) mmol/L Potassium (3.3-5.1) mmol/L Chloride (96-108) mmol/L Carbon Dioxide (22-29) mmol/L Anion Gap (12-20) BUN (9-16) mg/dL Creatinine (0.5-1.4) mg/dL Estim Creat Clear Calc Estimated GFR Random Glucose (60-115) mg/dL Calcium (8.4-10.2) mg/dL Total Bilirubin (0.0-1.0) mg/dL AST (5-37) U/L ALT (0-40) U/L Alkaline Phosphatase (39-117) U/L Troponin I High Sens < 3.5 (<3.5-35.0) ng/L Total Protein (6.5-8.0) g/dL Albumin (3.5-5.0) g/dL Lipase (8-78) U/L Urine Color Urine Appearance Urine pH (5.0-8.0) Ur Specific [place] (1.005-1.025) Urine Protein (NEG-TRACE) MG/DL Urine Glucose (UA) (NEG) MG/DL Urine Ketones (NEG) MG/DL Urine Blood (NEG) Urine Nitrite (NEG) Ur Leukocyte Esterase (NEG) <PEYMAN Almeida - Last Filed: 04/13/22 02:11> Lab Results 04/12/22 04/12/22 04/12/22 Range/Units 14:19 14:19 23:18 WBC 8.0 (4.8-10.8) X10*3/uL RBC 4.64 (4.60-5.80) X10*6/uL Hgb 13.8 L (14.0-18.0) g/dl Hct 40.7 L (42.0-52.0) % MCV 87.7 (80.0-98.0) fL MCH 29.7 (27.0-33.0) pg MCHC 33.9 (31.0-36.0) g/dl RDW 13.2 (11.0-16.0) % Plt Count 333 (160-400) X10*3/uL MPV 9.7 (9.4-12.4) fL Immature Gran % (Auto) 1.8 H (0.0-0.4) % Neut % (Auto) 53.2 (45-73) % Lymph % (Auto) 34.1 (20-40) % [place] % (Auto) 10.1 (2-11) % Eos % (Auto) 0.5 (0-4) % Baso % (Auto) 0.3 (0-2) % Lymph # (Auto) 2.7 (1.2-4.9) X10*3/uL [place] # (Auto) 0.8 (0.1-1.2) X10*3/uL Eos # (Auto) 0.0 (0.0-0.4) X10*3/uL Baso # (Auto) 0.0 (0.0-0.2) X10*3/uL Abs Immat Gran (auto) 0.14 H (0.00-0.03) X10*3/uL Absolute Neuts (auto) 4.3 (2.0-8.3) x10*3/uL Absolute Nucleated RBC 0.000 (0.0-0.012) X10*3/uL Nucleated RBC % (auto) 0.0 (0.0-0.2) /100WBC D-Dimer High Sensitivty NG/ML Sodium 140 (135-145) mmol/L Potassium 4.9 (3.3-5.1) mmol/L Chloride 110 H (96-108) mmol/L Carbon Dioxide 20 L (22-29) mmol/L Anion Gap 15 (12-20) BUN 14 D (9-16) mg/dL Creatinine 0.76 (0.5-1.4) mg/dL Estim Creat Clear Calc TNP Estimated GFR > 60 Random Glucose 125 H (60-115) mg/dL Calcium 9.1 (8.4-10.2) mg/dL Total Bilirubin 0.2 (0.0-1.0) mg/dL AST 29 (5-37) U/L ALT 26 (0-40) U/L Alkaline Phosphatase 42 (39-117) U/L Troponin I High Sens (<3.5-35.0) ng/L Total Protein 7.2 (6.5-8.0) g/dL Albumin 4.3 (3.5-5.0) g/dL Lipase 121 H (8-78) U/L Urine Color YELLOW Urine Appearance CLEAR Urine pH 6.5 (5.0-8.0) Ur Specific [place] 1.015 (1.005-1.025) Urine Protein NEG (NEG-TRACE) MG/DL Urine Glucose (UA) NEG (NEG) MG/DL Urine Ketones NEG (NEG) MG/DL Urine Blood NEG (NEG) Urine Nitrite NEG (NEG) Ur Leukocyte Esterase NEG (NEG) 04/13/22 04/13/22 Range/Units 01:41 01:41 WBC (4.8-10.8) X10*3/uL RBC (4.60-5.80) X10*6/uL Hgb (14.0-18.0) g/dl Hct (42.0-52.0) % MCV (80.0-98.0) fL MCH (27.0-33.0) pg MCHC (31.0-36.0) g/dl RDW (11.0-16.0) % Plt Count (160-400) X10*3/uL MPV (9.4-12.4) fL Immature Gran % (Auto) (0.0-0.4) % Neut % (Auto) (45-73) % Lymph % (Auto) (20-40) % [place] % (Auto) (2-11) % Eos % (Auto) (0-4) % Baso % (Auto) (0-2) % Lymph # (Auto) (1.2-4.9) X10*3/uL [place] # (Auto) (0.1-1.2) X10*3/uL Eos # (Auto) (0.0-0.4) X10*3/uL Baso # (Auto) (0.0-0.2) X10*3/uL Abs Immat Gran (auto) (0.00-0.03) X10*3/uL Absolute Neuts (auto) (2.0-8.3) x10*3/uL Absolute Nucleated RBC (0.0-0.012) X10*3/uL Nucleated RBC % (auto) (0.0-0.2) /100WBC D-Dimer High Sensitivty < 150 NG/ML Sodium (135-145) mmol/L Potassium (3.3-5.1) mmol/L Chloride (96-108) mmol/L Carbon Dioxide (22-29) mmol/L Anion Gap (12-20) BUN (9-16) mg/dL Creatinine (0.5-1.4) mg/dL Estim Creat Clear Calc Estimated GFR Random Glucose (60-115) mg/dL Calcium (8.4-10.2) mg/dL Total Bilirubin (0.0-1.0) mg/dL AST (5-37) U/L ALT (0-40) U/L Alkaline Phosphatase (39-117) U/L Troponin I High Sens < 3.5 (<3.5-35.0) ng/L Total Protein (6.5-8.0) g/dL Albumin (3.5-5.0) g/dL Lipase (8-78) U/L Urine Color Urine Appearance Urine pH (5.0-8.0) Ur Specific [place] (1.005-1.025) Urine Protein (NEG-TRACE) MG/DL Urine Glucose (UA) (NEG) MG/DL Urine Ketones (NEG) MG/DL Urine Blood (NEG) Urine Nitrite (NEG) Ur Leukocyte Esterase (NEG) <Austen Lomas MD - Last Filed: 04/13/22 04:13> Critical Care Time Critical Care Time Critical Care Time: No <PEYMAN Almeida - Last Filed: 04/13/22 02:11> Discharge Plan Discharge Clinical Impression: Abdominal pain, Nausea, Chest pain, pleuritic <PEYMAN Almeida - Last Filed: 04/13/22 02:11> Patient Disposition: Home, Self-Care <PEYMAN Almeida - Last Filed: 04/13/22 02:11> Instructions: Chest Pain (ED), Acute Nausea and Vomiting (ED), Abdominal Pain (ED) <PEYMAN Almeida - Last Filed: 04/13/22 02:11> Additional Instructions: Your laboratory evaluation was unremarkable. Your chest x-ray was unremarkable. See the CT scan results below, you have 2 incidental findings, fatty liver and diverticulosis. You should discuss treatment of fatty liver with your doctor, usually involves trying to lose weight. You should also have yearly liver and glucose tests make sure that you do not developed liver failure or diabetes. Take Zofran ODT 4 mg pills, 1 pill dissolved in your mouth every 8 hours as needed for nausea and vomiting. Take Pepcid (famotidine) 20 mg pills, 1 pill once a day for 1 month. This is a medication that reduces the amount of acid that you produce and should help with your nausea and possibly your abdominal pain as well. Follow-up with gastroenterology if symptoms do not improve. Follow-up with your doctor in 2 days. Please return to the emergency department if your symptoms get worse or if you develop any symptoms that are concerning to you. ? ?CT/CT abdomen pelvis wo con IMPRESSION: Enlarged fatty liver and diverticulosis without diverticulitis. A cause for the patient's diffuse abdominal pain has not been found.? ? Fleischner guidelines were followed. <PEYMAN Almeida - Last Filed: 04/13/22 02:11> Prescriptions: New ondansetron 4 mg tablet,disintegrating 4 mg PO Q6-8H PRN (Reason: nausea and vomiting) Qty: 14 0RF No Action alum-mag hydroxide-simeth [Maalox Advanced] 200-200-20 mg/5 mL suspension 5 ml PO Q3H PRN (Reason: dyspepsia) 30 Days Qty: 3000 1RF montelukast 10 mg tablet 10 mg PO BEDTIME Qty: 30 4RF theophylline 400 mg tablet extended release 24 hr 200 mg PO DAILY Qty: 15 6RF Nucala 100 mg/mL syringe 100 mg subcut Q4W 30 Days Qty: 1 12RF Thyrogen 0.9 mg recon soln 0.9 mg IM DAILY Qty: 2 0RF cholecalciferol (vitamin D3) 50 mcg (2,000 unit) capsule 50 mcg PO DAILY Qty: 90 0RF albuterol sulfate [ProAir HFA] 90 mcg/actuation HFA aerosol inhaler 2 puff PO Q6H PRN (Reason: for dyspnea) Qty: 8.5 6RF pantoprazole 40 mg tablet,delayed release (DR/EC) 40 mg PO DAILY 90 Days Qty: 90 2RF aspirin 81 mg tablet,delayed release (DR/EC) 81 mg PO DAILY 90 Days Qty: 90 2RF carvedilol 3.125 mg tablet 3.125 mg PO BID 90 Days Qty: 180 2RF sertraline 100 mg tablet 100 mg PO DAILY 90 Days Qty: 90 2RF midodrine 2.5 mg tablet 1 tab PO BID levetiracetam 1,000 mg Tablet 1,500 mg PO BID Qty: 60 0RF fluconazole 200 mg tablet 200 mg PO DAILY PRN divalproex [Depakote] 500 mg tablet,delayed release (DR/EC) 1,500 mg PO BID 30 Days Qty: 180 0RF albuterol sulfate 90 mcg/actuation aerosol powdr breath activated 2 inh inhalation Q4-6H PRN (Reason: shortness of breath or wheezing) Qty: 1 2RF divalproex 500 mg tablet,delayed release (DR/EC) 500 mg PO BID Qty: 60 2RF Spiriva Respimat 2.5 mcg/actuation mist 2 puff PO DAILY 30 Days Qty: 4 3RF lisinopril 10 mg tablet 10 mg PO DAILY 90 Days Qty: 90 3RF atorvastatin 40 mg tablet 40 mg PO BEDTIME 90 Days Qty: 90 3RF mupirocin 2 % ointment 1 appl topical BID 15 Days Qty: 22 0RF nystatin 100,000 unit/mL suspension 5 ml PO DAILY PRN (Reason: thrush) 30 Days Qty: 200 3RF Rx Instructions: administer 1/2 of dose in each side of the mouth [id number] 50-325-40 mg capsule 1 cap PO Q8H PRN (Reason: Migraine Headache) fluoxetine 20 mg capsule 20 mg PO DAILY prednisone 5 mg tablet See Rx Instructions PO DAILY 42 Days Qty: 150 0RF Rx Instructions: Take 6 tabs daily for 7 days, then go down by 1 tab every 7 days. levothyroxine 175 mcg tablet 175 mcg PO DAILY 30 Days Qty: 30 4RF <PEYMAN Almeida - Last Filed: 04/13/22 02:11> Referrals: Saúl Maier PA-C [Primary Care Provider] - 2 days Ramses Bradshaw [Physician] - 1 week <PEYMAN Almeida - Last Filed: 04/13/22 02:11>
[2022-04-12 22:44] LABS: Lipase 121 U/L (8-78)
[2022-04-12 23:25] LABS: Appearance Urine CLEAR; Color Urine YELLOW; Glucose Urine UA NEG (NEG); Leukocyte Esterase Urine NEG (NEG); Nitrite Urine NEG (NEG); PH 6.5 (5.0-8.0); Specific Gravity - Urine 1.015 (1.005-1.025); Urine Blood NEG (NEG); Urine Ketones NEG (NEG); Urine Protein NEG (NEG-TRACE)
[2022-04-12] MEDS: 0.9 % Sodium Chloride 1,000 ML 999 ML IV (23:40)
[2022-04-12] MEDS: ondansetron HCL 4 MG/2 ML VIAL IVPUSH (23:42)
[2022-04-12 23:56] VITALS: BP 140/72; PULSE 68; RESP 18; O2SAT 99
[2022-04-13] MEDS: Magnesium Hydrox/Alum Hydrox 30 ML ORAL.SUSP PO (00:36)
[2022-04-13] MEDS: PHENobarb/Hyoscy/Atropine/Scop 10 ML ELIXIR PO (00:36)
--- NOTE | 2022-04-13 01:00 | ECG_ITS ---
Test Reason : ABD PAIN Blood Pressure : / mmHG Vent. Rate : 054 BPM Atrial Rate : 054 BPM P-R Int : 116 ms QRS Dur : 096 ms QT Int : 428 ms P-R-T Axes : -06 -02 -04 degrees QTc Int : 405 ms Sinus bradycardia Minimal voltage criteria for LVH, may be normal variant ( R in aVL ) Borderline ECG When compared with ECG of 13-OCT-2020 06:07, T wave amplitude has decreased in Lateral leads Referred By: Hiral Valencia Electronically Signed By:JEAN ALVARENGA
[2022-04-13 01:59] LABS: D Dimer High Sensitivity < 150 NG/ML
[2022-04-13] MEDS: Ketorolac Tromethamine 15 MG/ML VIAL 30 MG IVPUSH (02:08)
[2022-04-13 02:15] LABS: Troponin-I High Sensitivity < 3.5 ng/L (<3.5-35.0)
== END 2022-04-13 05:07 | disposition home or self-care (01) ==
PROVIDERS: Internal Medicine; Physician Assistant; Emergency Provider Emergency Medicine Emergency Medical Services; PCP Physician Assistant
DX: R07.89 Other chest pain (principal); R10.9 Unspecified abdominal pain; R11.0 Nausea; K57.30 Diverticulosis of large intestine without perforation or abscess without bleeding; K76.0 Fatty (change of) liver, not elsewhere classified; K21.9 Gastro-esophageal reflux disease without esophagitis; I25.2 Old myocardial infarction; F12.90 Cannabis use, unspecified, uncomplicated; Z85.850 Personal history of malignant neoplasm of thyroid; Z79.899 Other long term (current) drug therapy; Z79.02 Long term (current) use of antithrombotics/antiplatelets
CPT/HCPCS: 36415; 71045; 74176; 80053; 81003; 83690; 84484; 85025; 85379; 93005; 96361; 96374; 96375; 99284; 99285; J1885; J2405

== ENCOUNTER 2022-05-05 07:52 | Outpatient (REF) | payer OTHER, SELFPAY | END 2022-05-05 07:53 | disposition home or self-care (01) | LOC: HO.MDS 07:52 | PROVIDERS: Visit Provider Internal Medicine Pulmonary Disease | DX: J45.50 Severe persistent asthma, uncomplicated (principal) | CPT/HCPCS: 96372; J2182 ==

== ENCOUNTER → 2022-05-30 09:03 | Outpatient (BNVA) | payer OTHER, SELFPAY | PROVIDERS: PCP Physician Assistant; Visit Provider Internal Medicine Pulmonary Disease | DX: J45.50 Severe persistent asthma, uncomplicated (principal); Z91.09 Other allergy status, other than to drugs and biological substances; G47.33 Obstructive sleep apnea (adult) (pediatric); Z99.89 Dependence on other enabling machines and devices | CPT/HCPCS: 99212 ==

== ENCOUNTER 2022-06-02 07:20 | Outpatient (REF) | payer OTHER, SELFPAY | END 2022-06-02 07:21 | disposition home or self-care (01) | LOC: HO.MDS 07:20 | PROVIDERS: Visit Provider Internal Medicine Pulmonary Disease | DX: J45.50 Severe persistent asthma, uncomplicated (principal) | CPT/HCPCS: 96372; J2182 ==

== ENCOUNTER 2022-06-27 15:43 | Outpatient (REF) | payer OTHER, SELFPAY ==
--- NOTE | ~2022-06-27 | US_ITS ---
EXAMINATION: US SOFT TISSUE HEAD/NECK CLINICAL INFORMATION: Malignant neoplasm of thyroid gland. COMPARISON: US-guided thyroid biopsy 06/16/2021. TECHNIQUE: Linear transducer grayscale and color Doppler examination of the thyroid bed and surrounding soft tissue. FINDINGS: No residual thyroid tissue or thyroid nodule is seen. There are bilateral normal-appearing cervical lymph nodes. The demonstrate normal ultrasound morphology and flow. Right level II measuring 1.2 x 0.5 x 0.4 cm, right level III measuring 0.6 x 0.3 x 0.4 cm and right level IV measuring 0.6 x 0.2 x 0.3 cm. Left level II measuring 1.8 x 0.6 x 0.8 cm, left level V measuring 0.7 x 0.5 x 0.5 cm and left level IV measuring 0.3 x 0.3 x 0.3 cm. US/US soft tiss head and/or neck IMPRESSION: Bilateral normal-appearing lymph nodes. No residual thyroid tissue seen.
== END 2022-06-27 15:44 | disposition home or self-care (01) ==
LOC: HO.US 15:43
PROVIDERS: Visit Provider Internal Medicine
DX: C73 Malignant neoplasm of thyroid gland (principal)
CPT/HCPCS: 76536

== ENCOUNTER 2022-06-30 07:19 | Outpatient (REF) | payer OTHER, SELFPAY | END 2022-06-30 07:20 | disposition home or self-care (01) | LOC: HO.MDS 07:19 | PROVIDERS: Visit Provider Internal Medicine Pulmonary Disease | DX: J45.50 Severe persistent asthma, uncomplicated (principal) | CPT/HCPCS: 96372; J2182 ==

== ENCOUNTER 2022-07-18 10:36 | Outpatient (REF) | payer OTHER, SELFPAY ==
[2022-07-18 11:40] LABS: Alanine Aminotransferase 42 U/L (0-40); Albumin Level 4.8 g/dL (3.5-5.0); Alkaline Phosphatase 49 U/L (39-117); Aspartate Amino Transferase 36 U/L (5-37); Bilirubin Direct 0.2 mg/dL (0.0-0.5); Bilirubin Total 0.3 mg/dL (0.0-1.0); Lipase 33 U/L (8-78); Total Protein 7.4 g/dL (6.5-8.0)
[2022-07-19 10:36] LABS: Transglutaminase Ab IgG <1.0 U/mL; Transglutaminase IgA <1.0 U/mL
== END 2022-07-18 10:37 | disposition home or self-care (01) ==
LOC: HO.LAB 10:36
PROVIDERS: Nurse Practitioner Family; Absent Provider Internal Medicine; PCP Physician Assistant; Visit Provider Physician Assistant
DX: R10.9 Unspecified abdominal pain (principal); K21.9 Gastro-esophageal reflux disease without esophagitis; K58.1 Irritable bowel syndrome with constipation; R14.0 Abdominal distension (gaseous); R15.0 Incomplete defecation
CPT/HCPCS: 36415; 80076; 83690; 86364; 99202; 99212

== ENCOUNTER 2022-07-19 10:59 | Outpatient (REF) | payer OTHER, SELFPAY | END 2022-07-19 11:00 | disposition home or self-care (01) | LOC: HO.LNP 10:59 | PROVIDERS: Visit Provider Nurse Practitioner Family | DX: Z11.2 Encounter for screening for other bacterial diseases (principal) | CPT/HCPCS: 82656; 87338 ==

== ENCOUNTER 2022-07-27 06:09 | Outpatient (REF) | payer OTHER, SELFPAY ==
[2022-07-27 08:08] LABS: Alanine Aminotransferase 49 U/L (0-40); Albumin Level 4.5 g/dL (3.5-5.0); Alkaline Phosphatase 46 U/L (39-117); Anion Gap 17 (12-20); Aspartate Amino Transferase 35 U/L (5-37); Bilirubin Total 0.4 mg/dL (0.0-1.0); Blood Urea Nitrogen 10 mg/dL (9-16); Carbon Dioxide 23 mmol/L (22-29); Chloride 106 mmol/L (96-108); Cholesterol 229 mg/dL; Estimated Glomerular Filt Rate > 60; Glucose Fasting 127 mg/dL (60-99); HDL Cholesterol 28 mg/dL; LDL Cholesterol Calculated 130 mg/dl; Phosphorus 2.6 mg/dL (2.7-4.5); Potassium 4.9 mmol/L (3.3-5.1); Sodium 141 mmol/L (135-145); Total Protein 6.9 g/dL (6.5-8.0); Triglycerides 355 mg/dL
[2022-07-27 08:20] LABS: Thyroid Stimulating Hormone 0.45 uIU/mL (0.32-4.0)
[2022-07-27 08:25] LABS: Free T4 (Free Thyroxine) 1.52 ng/dL (0.71-1.85)
[2022-07-27 09:08] LABS: Vitamin D 25-OH Total 37.8 ng/mL (>30)
[2022-07-28 14:12] LABS: PTHI 91 pg/mL (16-77)
[2022-07-31 12:52] LABS: Thyroglobulin <0.1 ng/mL; Thyroglobulin Antibodies <1 IU/mL (< or = 1)
== END 2022-07-27 06:10 | disposition home or self-care (01) ==
LOC: HO.LAB 06:09
PROVIDERS: PCP Physician Assistant; Visit Provider Internal Medicine
DX: C73 Malignant neoplasm of thyroid gland (principal); E89.0 Postprocedural hypothyroidism; E55.9 Vitamin D deficiency, unspecified
CPT/HCPCS: 36415; 80053; 80061; 82306; 83970; 84100; 84432; 84439; 84443; 86800

== ENCOUNTER 2022-07-28 07:23 | Outpatient (REF) | payer OTHER, SELFPAY | END 2022-07-28 07:24 | disposition home or self-care (01) | LOC: HO.MDS 07:23 | PROVIDERS: Visit Provider Internal Medicine Pulmonary Disease | DX: J45.50 Severe persistent asthma, uncomplicated (principal) | CPT/HCPCS: 96372; J2182 ==

== ENCOUNTER 2022-08-25 06:51 | Outpatient (REF) | payer OTHER, SELFPAY | END 2022-08-25 06:52 | disposition home or self-care (01) | LOC: HO.MDS 06:51 | PROVIDERS: Visit Provider Internal Medicine Pulmonary Disease | DX: J45.50 Severe persistent asthma, uncomplicated (principal) | CPT/HCPCS: 96372 ==

== ENCOUNTER 2022-09-22 06:25 | Outpatient (REF) | payer OTHER, SELFPAY ==
[2022-09-22 07:56] LABS: Valproate 108.4 mcg/mL (50.0-100.0)
[2022-09-25 20:14] LABS: Levetiracetam Keppra 56.6 mcg/mL (6.0-46.0)
== END 2022-09-22 06:26 | disposition home or self-care (01) ==
LOC: HO.LAB 06:25
PROVIDERS: PCP Physician Assistant; Visit Provider Psychiatry & Neurology Neurology
DX: G40.909 Epilepsy, unspecified, not intractable, without status epilepticus (principal); Z79.899 Other long term (current) drug therapy
CPT/HCPCS: 36415; 80164; 80177

== ENCOUNTER 2022-09-22 06:38 | Outpatient (REF) | payer OTHER, SELFPAY | END 2022-09-22 06:39 | disposition home or self-care (01) | LOC: HO.MDS 06:38 | PROVIDERS: Visit Provider Internal Medicine Pulmonary Disease | DX: J45.50 Severe persistent asthma, uncomplicated (principal) | CPT/HCPCS: 96372 ==

== ENCOUNTER → 2022-09-26 08:57 | Outpatient (BNVA) | payer OTHER, SELFPAY | PROVIDERS: PCP Physician Assistant; Referring Provider Physician Assistant; Visit Provider Nurse Practitioner Family | DX: K21.9 Gastro-esophageal reflux disease without esophagitis (principal); K59.01 Slow transit constipation; R16.0 Hepatomegaly, not elsewhere classified; R14.0 Abdominal distension (gaseous) | CPT/HCPCS: 99212 ==

== ENCOUNTER → 2022-10-10 08:51 | Outpatient (BNVA) | payer OTHER, SELFPAY | PROVIDERS: PCP Physician Assistant; Visit Provider Internal Medicine Pulmonary Disease | DX: J45.50 Severe persistent asthma, uncomplicated (principal); Z91.09 Other allergy status, other than to drugs and biological substances; G47.33 Obstructive sleep apnea (adult) (pediatric); Z99.89 Dependence on other enabling machines and devices | CPT/HCPCS: 99212 ==

== ENCOUNTER → 2022-11-07 09:41 | Outpatient (BNVA) | payer OTHER, SELFPAY | PROVIDERS: PCP Physician Assistant; Visit Provider Nurse Practitioner Family | DX: R14.0 Abdominal distension (gaseous) (principal); R13.14 Dysphagia, pharyngoesophageal phase; K21.9 Gastro-esophageal reflux disease without esophagitis; K59.04 Chronic idiopathic constipation | CPT/HCPCS: 99212 ==

== ENCOUNTER 2022-11-10 06:55 | Outpatient (REF) | payer OTHER, SELFPAY ==
--- NOTE | ~2022-11-10 | XR_ITS ---
EXAMINATION: XR SHOULDER, LEFT CLINICAL INFORMATION: Frozen left shoulder. COMPARISON: None TECHNIQUE: AP external rotation, Grashey, scapular Y, and axillary views of the left shoulder. FINDINGS: The bones and soft tissues are normal. No fracture. Glenohumeral and acromioclavicular alignment is anatomic with normal joint space. No abnormal soft tissue calcifications. XR/XR shoulder LT min 2V IMPRESSION: Normal left shoulder.
[2022-11-10 08:15] LABS: Estimated Average Glucose 160 mg/dL; Hemoglobin A1c % 7.2 %
[2022-11-10 08:22] LABS: Alanine Aminotransferase 31 U/L (0-40); Albumin Level 4.6 g/dL (3.5-5.0); Alkaline Phosphatase 40 U/L (39-117); Aspartate Amino Transferase 18 U/L (5-37); Bilirubin Direct < 0.2 mg/dL (0.0-0.5); Bilirubin Total 0.4 mg/dL (0.0-1.0); Lipase 38 U/L (8-78); Total Protein 6.6 g/dL (6.5-8.0)
[2022-11-10 08:53] LABS: Folate 10.4 ng/mL (> or = 4.0); Vitamin B12 1443 pg/mL (200-900)
[2022-11-15 16:34] LABS: Vitamin D 25-OH, D2 <4 ng/mL; Vitamin D 25-OH, D3 24 ng/mL; Vitamin D 25-OH, Total 24 ng/mL (30-100)
== END 2022-11-10 06:56 | disposition home or self-care (01) ==
LOC: HO.LAB 06:55
PROVIDERS: Absent Provider Psychiatry & Neurology Neurology; PCP Physician Assistant; Visit Provider Nurse Practitioner Family
DX: E55.9 Vitamin D deficiency, unspecified (principal); R19.7 Diarrhea, unspecified; R10.9 Unspecified abdominal pain; E11.9 Type 2 diabetes mellitus without complications; M75.02 Adhesive capsulitis of left shoulder
CPT/HCPCS: 36415; 73030; 80076; 82306; 82607; 82746; 83036; 83690

== ENCOUNTER → 2022-11-17 08:46 | Outpatient (BNVA) | payer OTHER, SELFPAY | PROVIDERS: PCP Physician Assistant; Visit Provider Internal Medicine Pulmonary Disease | DX: J45.40 Moderate persistent asthma, uncomplicated (principal); Z79.60 Long term (current) use of unspecified immunomodulators and immunosuppressants; Z79.1 Long term (current) use of non-steroidal anti-inflammatories (NSAID) | CPT/HCPCS: 99211 ==

== ENCOUNTER 2022-11-22 14:17 | Outpatient (REF) | payer OTHER, SELFPAY ==
--- NOTE | ~2022-11-22 | US_ITS ---
EXAMINATION: US SOFT TISSUE HEAD/NECK CLINICAL INFORMATION: Malignant neoplasm of thyroid gland. COMPARISON: Ultrasound soft tissue head/neck 06/27/2022. TECHNIQUE: Linear transducer grayscale and color Doppler examination of the thyroid bed and surrounding soft tissue. FINDINGS: RIGHT NECK: 1. Level 2 lymph node measures 2.1 x 0.7 x 1.8 cm. It has a normal architecture. 2. Level 2 lymph node measures 0.9 x 0.4 x 0.4 cm and has normal architecture. Previously it measured 0.6 x 0.2 x 0.3 cm. 3. Level 2 lymph node measures 0.7 x 0.3 x 0.4 cm. It is new and has normal architecture. 4. Level 4 lymph node measures 0.6 x 0.3 x 0.6 cm and has normal architecture. Previously measured 0.6 x 0.2 x 0.3 cm. LEFT NECK: 1. Level 2 lymph node measures 1.7 x 0.7 x 2.1 cm. It has normal architecture. Previously it measured 1.8 x 0.6 x 0.8 cm. 2. Level 4 lymph node measures 1.1 x 0.5 x 0.6 cm. It has normal architecture. Previously it measured 0.7 x 0.5 x 0.5 cm US/US soft tiss head and/or neck IMPRESSION: Benign-appearing bilateral neck lymph nodes as described above.
== END 2022-11-22 14:18 | disposition home or self-care (01) ==
LOC: HO.US 14:17
PROVIDERS: PCP Physician Assistant; Visit Provider Internal Medicine
DX: C73 Malignant neoplasm of thyroid gland (principal)
CPT/HCPCS: 76536

== ENCOUNTER → 2022-11-23 14:49 | Outpatient (BNVA) | payer OTHER, SELFPAY | PROVIDERS: PCP Physician Assistant; Visit Provider Internal Medicine | DX: E89.0 Postprocedural hypothyroidism (principal); E55.9 Vitamin D deficiency, unspecified; C73 Malignant neoplasm of thyroid gland | CPT/HCPCS: 99212 ==

== ENCOUNTER 2022-11-27 07:20 | Outpatient (REF) | payer OTHER, SELFPAY ==
[2022-11-27 08:50] LABS: Alanine Aminotransferase 34 U/L (0-40); Albumin Level 4.5 g/dL (3.5-5.0); Alkaline Phosphatase 43 U/L (39-117); Anion Gap 17 (12-20); Aspartate Amino Transferase 16 U/L (5-37); Bilirubin Total 0.5 mg/dL (0.0-1.0); Blood Urea Nitrogen 9 mg/dL (9-16); Calcium 9.9 mg/dL (8.4-10.2); Carbon Dioxide 25 mmol/L (22-29); Chloride 105 mmol/L (96-108); Estimated Glomerular Filt Rate > 60; Glucose Random 146 mg/dL (60-115); Phosphorus 3.8 mg/dL (2.7-4.5); Potassium 4.9 mmol/L (3.3-5.1); Sodium 142 mmol/L (135-145); Total Protein 6.8 g/dL (6.5-8.0)
[2022-11-27 09:15] LABS: Free T4 (Free Thyroxine) 1.31 ng/dL (0.71-1.85); Thyroid Stimulating Hormone 0.05 uIU/mL (0.32-4.0); Vitamin D 25-OH Total 17.9 ng/mL (>30)
[2022-11-28 14:53] LABS: Calcium (PTHI) 10.1 mg/dL (8.6-10.3); PTHI 35 pg/mL (16-77)
[2022-11-28 21:34] LABS: Thyroglobulin Antibodies <1 IU/mL (< or = 1)
== END 2022-11-27 07:21 | disposition home or self-care (01) ==
LOC: HO.LAB 07:20
PROVIDERS: PCP Physician Assistant; Visit Provider Internal Medicine
DX: E55.9 Vitamin D deficiency, unspecified (principal); C73 Malignant neoplasm of thyroid gland
CPT/HCPCS: 36415; 80053; 82306; 83970; 84100; 84439; 84443; 86800

== ENCOUNTER → 2022-12-05 11:17 | Outpatient (BNVA) | payer OTHER, SELFPAY | PROVIDERS: PCP Physician Assistant; Referring Provider Physician Assistant; Visit Provider Nurse Practitioner Family | DX: R14.0 Abdominal distension (gaseous) (principal); R10.13 Epigastric pain; R56.9 Unspecified convulsions; K21.9 Gastro-esophageal reflux disease without esophagitis; Z90.49 Acquired absence of other specified parts of digestive tract; K59.01 Slow transit constipation | CPT/HCPCS: 99212 ==

== ENCOUNTER 2022-12-12 14:20 | Outpatient (REF) | payer OTHER, SELFPAY ==
--- NOTE | ~2022-12-12 | FL_ITS ---
EXAMINATION: XR BARIUM SWALLOW CLINICAL INFORMATION: Dysphagia. COMPARISON: None available. TECHNIQUE: Modified barium swallow was performed under lateral fluoroscopy with various consistencies of food coated with barium in the presence of speech therapist. FINDINGS: Barium swallow was performed in the presence of speech therapist. The exam was performed on 12/12/2022. Correlate with speech therapy report. FLUOROSCOPY TIME: 0.8 minutes DOSE AREA PRODUCT: 1.172 uGy-m2 (microgray-meter squared) FL/FL barium swallow modified IMPRESSION: A modified barium swallow was performed in the presence of speech therapist. Correlate with speech therapy report.
--- NOTE | 2022-12-12 15:23 | MHC.SPEECHCO ---
MBSS complete. Normal swallow function observed. Recommend further assessment as recommended by the referring provider. Full report to follow.
--- NOTE | 2022-12-14 12:02 | MHC.SL.IMP ---
Date of Plan of Treatment: 12/12/22 Onset of Symptoms/Illness: 12/12/22 Date Treatment Started: 12/12/22 Admitting Diagnosis: Dysphagia, Pharyngoesophgeal phase (R13.14) Primary Speech & Language Diagnosis: R13.14 Pharyngoesophageal Phase Dysphagia Secondary Speech & Language Diagnosis: Reason for Today's Visit: 10966 Modified Barium Swallow Study Comments: Pre-evaluation Dietary Consistencies: Regular Pre-evaluation Liquid Consistency: Thin Pre-evaluation Medication Administration: Crushed with Puree Medical History: Comments: Past medical history includes; GERD, Thyroid biopsy, Depression, Anxiety. [facility] Fall Risk Assessment Score: Low risk Oral Motor Exam Facial Symmetry: Normal for Patient Symmetrical Facial Movement: Oral-Facial Facial Miscellaneous Observations: Mouth Occlusion: Normal Oral-Facial Teeth Characteristics: Intact/Normal Oral-Facial Lip Pucker Description: Normal Oral-Facial Smile (Lips) Description: Normal Oral-Facial Puff Cheeks Description: Normal Tongue Size: Normal Tongue Frenum Length: Normal Tongue Excursion Description: Normal Tongue Range of Movement Description: Normal Tongue Speed of Movement Description: Normal Tongue Strength of Movement (against opposing pressure): Normal Tongue Movement Characteristics: Normal/Absent Oral Expression Ability: No Impairment Is patient able to manage secretions?: Yes Is patient able to produce volitional cough?: Yes Food and Liquid Trials: Oral Impairment: Lip Closure: 0=No labial escape Oral Impairment: Tongue Control During Bolus Hold: 0=Cohesive bolus between tongue to palatal seal Oral Impairment: Bolus Preparation/Mastication: 0=Timely and efficient chewing and mashing Oral Impairment: Bolus Transport/Lingual Motion: 0=Brisk tongue motion Oral Impairment: Oral Residue: 1=Trace residue lining oral structures Oral Impairment:Initiation of Pharyngeal Swallow: 3=Bolus head in pyriforms Pharyngeal Impairment: Soft Palate Elevation: 0=No bolus between soft palate (SP)/pharyngeal wall (PW) Pharyngeal Impairment: Laryngeal Elevation: 1=Partial thyroid cartilage/arytenoids to epiglottic petiole movement Pharyngeal Impairment: Anterior Hyoid Excursion: 1=Partial anterior movement Pharyngeal Impairment: Epiglottic Movement: 0=Complete inversion Pharyngeal Impairment: Laryngeal Vestibular Closure:: 0=Complete: no air/contrast in laryngeal vestibule Pharyngeal Impairment: Pharyngeal Stripping Wave: 0=Present: complete Pharyngeal Impairment: Pharyngeal Contraction: 0=Complete Pharyngeal Impairment: Pharyngoesophageal Segment Openin=Partial distention/partial duration: partial obstruction of flow Pharyngeal Impairment: Tongue Base (TB) Retraction: 1=Trace column of contrast/air between TB and posterior PW Pharyngeal Impairment: Pharyngeal Residue: 1=Trace residue within or on pharyngeal structures Pharyngeal Impairment: Esophageal Clearance Upright Position: Did not test Impressions and Recommendations Clinical Observations: The most significant finding of today's study was a delayed initiation of the swallow which result in the bolus head being present down to the level of the pyriform sinuses. Normal swallowing function would place the bolus at the ramus of the mandible bone. This resulted in delayed relaxation of the upper esophageal sphincter (UES) and may lead to his reported sensation. Surface trauma to the pharynx cannot be ruled out by this study. However, the delayed relaxation of the UES may be contributing to his reported symptoms. Globus pharyngeus is also correlated with anxiety and GERD which are also noted in the medical history. Further referrals to ENT for Laryngoscopy, or GI for EGD may help rule out any surface level trauma. Liquid Intake Recommendation: Thin Liquid Intake Strategies: Small Sips Dietary Recommendations: Regular Medication Administration: Crushed with Puree Please contact the pharmacy regarding appropriate crushable or liquid drug formulations that are available whenever modified delivery is recommended. Compensatory Strategies Recommended: Sitting Upright (90 deg) Alternate Liquids/Solids Rate of Ingestion Change Supervision during eating and or drinking: None Needed Recommended Treatments: Compens. Strategy Educat. Dial Equipment Engineer Clinician/Clinical Fellow: No Supervisory Statement: N/A Speech Language Pathologist: Scooter Mosqueda M.A., MAMADOU-RADAR SIGNAL PROCESSING ENGINEER
== END 2022-12-12 14:21 | disposition home or self-care (01) ==
LOC: HO.XRAY 14:20
PROVIDERS: PCP Physician Assistant; Visit Provider Internal Medicine
DX: R13.14 Dysphagia, pharyngoesophageal phase (principal)
CPT/HCPCS: 74230; 92611

== ENCOUNTER → 2022-12-28 07:49 | Outpatient (REF) | payer OTHER, SELFPAY ==
--- NOTE | ~2022-12-28 | NM_ITS ---
EXAMINATION: NM RADIONUCLIDE SOLID FOOD GASTRIC EMPTYING 4-HOUR STUDY CLINICAL INFORMATION: Gastroesophageal reflux disease without esophagitis. Epigastric pain. COMPARISON: Modified barium swallow study done on 12/12/2022. TECHNIQUE: A standard meal consisting of 4 oz of Egg Beaters brand tagged with 1000 microcuries Tc-99m Sulfur Colloid, 8 oz water and 2 slices of toast with jelly was administered orally to the patient. Images were obtained using a dual head gamma camera in the anterior and posterior projections over of the stomach immediately post ingestion and at hourly intervals up to 4 hours post ingestion. The anterior and posterior counts at each time interval were averaged using the geometric mean and expressed as percentage of the immediate post ingestion counts. FINDINGS: There is good visualization of activity in the stomach immediately post ingestion. As the study progresses, there is good clearance of activity from the stomach and visualization of progressively increasing small bowel activity. By the end of the study, there is mild retention noted in the stomach. Retention in the stomach at each time interval was: 1 hour 84% (normal 37%-90%) 2 hours 40% (normal 30%-60%) 3 hours 17% 4 hours 11% (normal 0%-10%) KY/KY gastric emptying study IMPRESSION: Mild retention at 4-hour solid food gastric emptying study. (For solid meal, rapid gastric emptying is less than 30% at 60 minutes. Delayed gastric emptying criteria is more than 60% remaining at 120 minutes or more than 10% at 240 minutes. The 4-hour value is the best discriminator of a normal or abnormal result). Gastric emptying study grading per JNMT Consensus Recommendations in 2008 (https://tech.snmjournals.org/content/36/1/44) Grade 1 (mild retention): 11-20% at 4h Grade 2 (moderate retention): 21-35% at 4h Grade 3 (severe retention): 36-50% at 4h Grade 4 (very severe retention): >50% retention at 4h
== END ==
LOC: HO.NUCMED 07:49
PROVIDERS: PCP Physician Assistant; Visit Provider Nurse Practitioner Family
DX: R10.13 Epigastric pain (principal); K21.9 Gastro-esophageal reflux disease without esophagitis
CPT/HCPCS: 78264; A9541

== ENCOUNTER → 2023-01-19 09:40 | Outpatient (BNVA) | payer OTHER, SELFPAY | PROVIDERS: PCP Physician Assistant; Visit Provider Internal Medicine Pulmonary Disease | DX: J45.50 Severe persistent asthma, uncomplicated (principal); G47.33 Obstructive sleep apnea (adult) (pediatric); E89.0 Postprocedural hypothyroidism; Z91.09 Other allergy status, other than to drugs and biological substances; Z99.89 Dependence on other enabling machines and devices | CPT/HCPCS: 99212 ==

== ENCOUNTER 2023-01-24 08:00 | Outpatient (RCR) | payer OTHER, SELFPAY ==
--- NOTE | 2022-11-10 16:18 | MHC.PT.EP ---
[facility] [place] [facility] [place] [facility] [place] Office [address] Colin Og [address] [phone] F: [phone] F: [phone] F: [phone] F: [phone] Physical Therapy Plan of Care Date of Evaluation: Date of Surgery: N/A Diagnosis: Frozen left shoulder Assessment: Pt is a 41yo M who presents to PT with L shoulder pain. Pt presents to PT with current impairments in pain, decreased L shoulder ROM, decreased L shoulder strength, soft tissue restrictions, and impaired posture. He is extremely TTP throughout L UE with hypersensitivity. He is limited functionally by lifting, reaching, overhead ADLs, and sleeping. He is a good candidate for skilled PT in order to address current impairments to facilitate return to PLOF. He is recommended to be seen 2x/week for 4 weeks and will be reassessed at that time. Frequency and Duration: The patient will be seen 2x/week for 4 weeks Short Term Goals: Pt will be I with HEP to promote self management of symptoms Pt will increase L shoulder flexion by at least 10 degrees Research Scholar Goals: Pt will achieve at least 120 degrees L shoulder flexion to assist with reaching items Pt will perform overhead ADLs with minimal to no compensation Pt will demonstrate improvements in function as evidenced by statistically significant improvement in SPADI outcome measure Treatment Plan: Modalities to reduce pain, spasms and effusion. Manual therapy to restore motion and function. Therapeutic exercise to improve strength and flexibility. Neuromuscular re-education for posture and balance. Therapeutic activities to return to functional activities of daily living. Electronically signed by: Crystal Sotomayor, PT, DPT Please sign and return to therapist. Thank you for your referral.
--- NOTE | 2023-01-24 15:13 | MHC.PT.DC ---
[facility] [place] Office [place] Office [place] Office [address] Colin Og [address] [phone] F: [phone] F: [phone] F: [phone] F: [phone] Physical Therapy Discharge Report Diagnosis: Frozen left shoulder Date of Surgery: N/A Date of Evaluation: 11/09/22 Date of Discharge: 01/24/23 Treatments to Date: Cancellations to Date: No Shows to Date: Discharge Status: Improved Function Independent with HEP Recommend MD Follow-up Discharge Summary: Pt was seen for PT from 11/09/22-01/24/23. He has made progress since SOC. He has had a decrease in shoulder pain and has made improvements in shoulder ROM however he continues to have limitations with L shoulder ROM and strength limiting his functional activities. He is I with HEP. Ultimately, he has reached functional plateau with skilled PT. He is recommended to continue to perform HEP and follow up with scheduled providers (Orthopedics 02/02/23 and Pain management 02/02/23). Pt is D/C from skilled PT at this time. Pt has no questions at time of D/C. Electronically signed by: Crystal Sotomayor, PT, DPT Please sign and return to therapist. Thank you for your referral.
== END 2023-01-24 15:14 | disposition home or self-care (01) ==
LOC: HO.PT 08:00
PROVIDERS: PCP Physician Assistant; Visit Provider Psychiatry & Neurology Neurology
DX: M75.02 Adhesive capsulitis of left shoulder (principal)
CPT/HCPCS: 97110; 97140; 97163

== ENCOUNTER → 2023-01-26 08:40 | Outpatient (BNVA) | payer OTHER, SELFPAY | PROVIDERS: PCP Physician Assistant; Visit Provider Physician Assistant | DX: S44.30XA Injury of axillary nerve, unspecified arm, initial encounter (principal); M54.12 Radiculopathy, cervical region | CPT/HCPCS: 99202 ==

== ENCOUNTER 2023-02-01 08:21 | Outpatient (REF) | payer OTHER, SELFPAY ==
--- NOTE | ~2023-02-01 | XR_ITS ---
EXAMINATION: XR CERVICAL SPINE CLINICAL INFORMATION: Radiculopathy COMPARISON: None available. TECHNIQUE: 6 views of the cervical spine, inclusive of bilateral oblique views, were obtained. FINDINGS: Mild curvature of the lower cervical and upper thoracic spine to the right. Bone alignment is otherwise normal. No fracture or dislocation. Mild degenerative spondylosis at C 5 6. Normal disc spaces. Right-sided neural foramen are patent. Left-sided neuroforaminal narrowing from bony osteophyte from C3-C4 to C5-C6. Prevertebral soft tissues are normal. XR/XR cervical spine min 6V IMPRESSION: Mild degenerative changes.
== END 2023-02-01 08:22 | disposition home or self-care (01) ==
LOC: HO.XRAY 08:21
PROVIDERS: PCP Physician Assistant; Visit Provider Nurse Practitioner Family
DX: C73 Malignant neoplasm of thyroid gland (principal); E89.0 Postprocedural hypothyroidism; E55.9 Vitamin D deficiency, unspecified; M54.12 Radiculopathy, cervical region; G43.109 Migraine with aura, not intractable, without status migrainosus
CPT/HCPCS: 72052; 99202; 99212

== ENCOUNTER → 2023-02-05 08:20 | Outpatient (BNVA) | payer OTHER, SELFPAY | PROVIDERS: PCP Physician Assistant; Visit Provider Nurse Practitioner Family | DX: K31.84 Gastroparesis (principal); K21.9 Gastro-esophageal reflux disease without esophagitis; R13.14 Dysphagia, pharyngoesophageal phase; R14.0 Abdominal distension (gaseous); K59.01 Slow transit constipation; Z90.49 Acquired absence of other specified parts of digestive tract | CPT/HCPCS: 99212 ==

== ENCOUNTER 2023-02-08 11:37 | Outpatient (REF) | payer OTHER, SELFPAY ==
--- NOTE | 2023-02-08 10:00 | EMG_ITS ---
Left median and ulnar motor and sensory studies were performed. Left radial sensory study was performed and paraspinal muscles were tested with a needle. IMPRESSION: This is an unremarkable study with no evidence of entrapment neuropathy, plexopathy, or radiculopathy. MD ISHA Vallejo/NOEMI / [id number]
== END 2023-02-08 11:38 | disposition home or self-care (01) ==
LOC: HO.NEURO 11:37
PROVIDERS: PCP Physician Assistant; Visit Provider Physician Assistant
DX: R20.0 Anesthesia of skin (principal); R20.2 Paresthesia of skin
CPT/HCPCS: 95886; 95909

== ENCOUNTER 2023-02-13 06:43 | Outpatient (REF) | payer OTHER, SELFPAY ==
[2023-02-13 08:18] LABS: Free T4 (Free Thyroxine) 1.14 ng/dL (0.71-1.85); Thyroid Stimulating Hormone 11.83 uIU/mL (0.32-4.0)
[2023-02-18 06:38] LABS: Thyroglobulin Antibody <1 IU/mL (<=1); Thyroglobulin Level 0.5 ng/mL
== END 2023-02-13 06:44 | disposition home or self-care (01) ==
LOC: HO.LAB 06:43
PROVIDERS: Absent Provider Nurse Practitioner Family; PCP Physician Assistant; Visit Provider Internal Medicine
DX: K21.9 Gastro-esophageal reflux disease without esophagitis (principal); E89.0 Postprocedural hypothyroidism
CPT/HCPCS: 36415; 84432; 84439; 84443; 86003; 86800

== ENCOUNTER 2023-02-14 11:04 | Day surgery (SDC) | payer OTHER, SELFPAY ==
[2023-02-09 09:48] VITALS: BMI 29.5
[2023-02-14 11:29] VITALS: BMI 28.6
[2023-02-14] MEDS: Albuterol/Iprat 2.5/0.5MG 3 ML AMPUL.NEB INHALE (11:50)
[2023-02-14 11:52] VITALS: PULSE 64; RESP 18; O2SAT 95
[2023-02-14 12:01] VITALS: BP 108/65; PULSE 78; RESP 16; TEMP 36.3; O2SAT 95
[2023-02-14 12:08] LABS: Glucose, Whole Blood 95 mg/dL (60-115)
--- NOTE | 2023-02-14 12:08 | HO.ANESPROP2 ---
[facility] Active Problems Active Problems: All Active Problems (Updated 02/09/23 @ 09:46 by Flavia Jones RN) Severe persistent allergic asthma (Acute) Environmental allergies (Acute) MEHNAZ on CPAP (Acute) Seizure disorder (Acute) Cardiomyopathy (Acute) ABPA (allergic bronchopulmonary aspergillosis) (Acute) Seizures (Acute) Asthma (Acute) Hx of myocardial infarction (Acute) GERD (gastroesophageal reflux disease) (Acute) Thyroid nodule (Acute) Multiple thyroid nodules (Acute) MDD (major depressive disorder) (Acute) Right shoulder tendonitis (Acute) Cervical radiculopathy (Acute) Adhesive capsulitis of right shoulder (Acute) Screening for diabetes mellitus (DM) (Acute) Screening for hypothyroidism (Acute) Cervical radiculopathy (Acute) Adhesive capsulitis of right shoulder (Acute) Thyroid cancer (Acute) Abrasion hand (Acute) S/P total thyroidectomy (Acute) Hypothyroidism (Acute) Annual physical exam (Acute) Pain in right hip (Acute) Dysphagia (Acute) Abdominal bloating (Acute) Constipation (Acute) Impaired glucose metabolism (Acute) Hypophosphatemia (Acute) Sensorineural hearing loss (SNHL) of both ears (Acute) Axillary nerve injury (Acute) Neuropathy of left upper extremity (Acute) Carpal tunnel syndrome on left (Acute) Cubital tunnel syndrome on left (Acute) Throat disorder (Acute) Gastroparesis (Acute) Migraine headache with aura (Acute) Postoperative hypothyroidism (Acute) Thyroid cancer (Acute) Myocardial infarct (Acute) Vitamin D deficiency (Acute) Multinodular thyroid (Acute) Past Medical History Medical History (Updated 02/09/23 @ 09:46 by Flavia Jones RN) Asthma Diabetes Enlarged liver Gastroparesis Migraine headache with aura Multinodular thyroid Myocardial infarct Postoperative hypothyroidism Seizures Sleep apnea Thyroid cancer Vitamin D deficiency Family History Family History Maternal Grandmother Emphysema, unspecified Father Diabetes Mother No problems noted. Paternal Grandfather Liver cancer Family history of problems with anesthesia: No Surgical History Surgical History History of cholecystectomy S/P removal of thyroid nodule History of Problems with Anesthesia: No Social History Social History Housing: Apartment Are you a primary hospice home care coordinator to a significant other at home: No Do you presently have visiting nurse or other home services: Yes ([facility] w/MD appointments) Alcohol intake: former Patient Tobacco Use Status: Never used Tobacco e-Cigarette/Vaping Use: Never Used Second Hand Smoke Exposure: No Use of substances other than those prescribed or required for medical reasons: Yes Substance Use Type: Marijuana Substance Use Type Other:: advised to hold pre-op Substance Use Frequency: Daily Have you been hit, kicked, punched, or otherwise hurt by someone within the past year? If so, by whom?: No Are you DNR?: No Advance Directives: No Advance Directives Information Provided: Yes Advance Directives on File: No Recently lost weight without trying: No Eating poorly because of decreased appetite: No Nutrition Risks: No Nutritional Risk Poor oral hygiene: No service: No Current occupational status: disabled Current occupation: rt handed Cognitive needs: No Hearing needs: No Vision needs: No Meds Allergies Allergy/AdvReac Type Severity Reaction Status Date / Time cat dander [CATS] Allergy Mild GENERALIZED Verified 02/05/23 08:25 ALLERGY SYMPTOMS dog dander [DOGS] Allergy Mild GENERALIZED Verified 02/05/23 08:25 ALLERGY SYMPTOMS tree and shrub pollen [TREE] Allergy Mild GENERALIZED Verified 02/05/23 08:25 ALLERGY SYMPTOMS FROM PINE TREES Home Medications Medication Instructions Recorded Confirmed Last Taken Type cyclobenzaprine 10 mg tablet 10 mg PO TID PRN Muscle Spasm 04/14/22 02/08/23 Unknown History meloxicam 15 mg tablet 15 mg PO DAILY 02/01/23 02/08/23 Unknown History mepolizumab 100 mg/mL subcutaneous 100 mg subcut Q4W 02/01/23 02/08/23 Unknown History syringe (Nucala) Exam Exam Date and Time: February 14, 2023 1208 Height,Weight and Vital Signs: Height 5 ft 5 in Weight 78.018 kg Last Vital Signs Temp 97.3 F 02/14/23 12:01 Pulse 78 02/14/23 12:01 Resp 16 02/14/23 12:01 BP 108/65 02/14/23 12:01 Pulse Ox 95 02/14/23 12:01 O2 Del Method Room Air 02/14/23 12:01 Airway Mallampati Class: III TM Dist: >3cm Neck ROM: Full Assessment and Plan Assessment Anesthesia Assessment: Anesthesia Plan Discussed and Chart Reviewed Final Anesthetic Review Family History of Problems with Anesthesia: No History of Problems with Anesthesia: No NPO: Yes ASA Class: III Final Preanesthetic Review: No Changes in Pt Med Stat, Meds/Allgs Chart Reviewed, Consent Obtained/Reviewed and Anes Risks/Benef Reviewed Patient Risk: Intermediate Procedure Risk: Low Anesthetic Plan Anesthetic Plan: MAC: Disposition: Standard PACU
--- NOTE | 2023-02-14 12:12 | MHC.SHP ---
Pre-Procedural Eval Section A Date of Service: 02/14/23 Section B Chief Complaint: GERD,Abdominal distension (gaseous) Details of Present Illness: gastroparesis Relevant Family History (Specify if Yes): No Relevant Social History: None Present Medications: see Short Stay Collaborative assessment Medical History: Significant History (Asthma Diabetes Enlarged liver Gastroparesis Migraine headache with aura Multinodular thyroid Myocardial infarct Postoperative hypothyroidism Seizures Sleep apnea Thyroid cancer Vitamin D deficiency) History of Previous Operations: Relevant previous surgery/procedure and date(s) (History of cholecystectomy S/P removal of thyroid nodule) Allergies: Allergies Allergy/AdvReac Type Severity Reaction Status Date / Time cat dander [CATS] Allergy Mild GENERALIZED Verified 02/05/23 08:25 ALLERGY SYMPTOMS dog dander [DOGS] Allergy Mild GENERALIZED Verified 02/05/23 08:25 ALLERGY SYMPTOMS tree and shrub pollen [TREE] Allergy Mild GENERALIZED Verified 02/05/23 08:25 ALLERGY SYMPTOMS FROM P[place] T[place] Review of Systems Sugical H&P ROS: Negative: Constitution, Cardiovascular, Respiratory, Neurological, Psychiatric, Hem-Onc, Allergic/Immunologic, Gastrointestinal, Genitourinary, Musculoskeletal, Integumentary, Endocrine and Eyes/Ears/Nose/Throat Exam Surgical H&P Exam: Normal: HEENT, Normal: Heart, Normal: Lungs, Normal: Extremities, Normal: Abdomen, Normal: Skin and Normal: Neurological Plan Diagnosis/Plan: Unchanged I have reviewed the history and physical and performed a pertinent physical examination on my patient. No changes have occurred unless specified. Time Spent With Patient Time: Total time managing care of this patient today ____ minutes.
--- NOTE | 2023-02-14 12:14 | W.PM.OPN ---
Operative Note Operative Note Date of Service: 02/14/23 Narrative: Procedure Description: EGD Indication: gastroparesis and dysphagia Anesthesia: MAC FLEXIBLE TRANSORAL UPPER GASTROINTESTINAL ENDOSCOPY UPPER ENDOSCOPY Consent: Indications for the procedure and potential complications of bleeding, perforation, reaction to medications and missed diagnosis were discussed with the patient and informed consent was obtained. Instrument: Olympus GIF H 190 J mid size upper endoscope Monitoring: Vital signs and clinical assessment, continuous EKG monitoring, Pulse oximetry, Carbon Dioxide monitoring and blood pressure monitoring were done throughout the procedure. Procedure: The patient was placed in the left lateral decubitis position and pre-procedure medications were administered and a bite block was placed. The endoscope was inserted into the mouth and advanced under direct vision to the third part of duodenum. A careful inspection was made as the upper endoscope was withdrawn including a retroflexed examination of the proximal stomach; Findings and interventions are described below. Findings: Larynx:normal Esophagus: GE junction at 34 cm, diaphragm hiatus at 37 cm, consistent with 3 cm sliding hiatal hernia, schatzki ring noted. Esophgeal inlet patches noted as well. There was a tongue of salmon pink tissue suspcious for short segment Barretts, bx taken, also taken from proximal esophagus. Balloon dilation was done at LEs and UES to 20 mm, no tear seen. The esophagus also had a sigmoid shaped curve at the distal end. Stomach: Patchy gastric erythema. Biopsies were obtained. Grade 3 flap valve on retroflexed examination of the cardia with incompetent LES. There was a lot of bile acid in the stomach. The pyloric outlet was dilated to 20 mm with balloon, no tears seen Duodenum: Normal bulb and descending duodenum, bx taken Intervention: Biopsies as noted above, balloon dilation Impression/Findings: esophageal inlet patches schatzki ring hiatal hernia incompetent LES possible barretts bile acid gastric reflux gastritis duodenitis PLAN: GERD precautions consider surgical referral for partial fundoplication, vs medical management if barretts confirmed repeat EGD in 2-3 years ensure PPi compliance
[2023-02-14 12:20] LABS: Glucose, Whole Blood 139 mg/dL (60-115)
[2023-02-14 12:49] VITALS: BP 101/65; PULSE 103; RESP 16; TEMP 36.5; O2SAT 94
[2023-02-14 13:04] VITALS: BP 97/63; PULSE 83; RESP 16; O2SAT 94
[2023-02-14 13:19] VITALS: BP 109/61; PULSE 76; RESP 16; TEMP 36.1; O2SAT 94
== END 2023-02-14 14:10 | disposition home or self-care (01) ==
PROVIDERS: PCP Physician Assistant; Visit Provider Internal Medicine Gastroenterology
PROC: 0DJ08ZZ Inspection of Upper Intestinal Tract, Via Natural or Artificial Opening Endoscopic (ICD-10-PCS; CPT 43235; principal; 2023-02-14 13:40)
DX: R13.10 Dysphagia, unspecified (principal); K31.84 Gastroparesis; K21.9 Gastro-esophageal reflux disease without esophagitis; K22.2 Esophageal obstruction; K22.4 Dyskinesia of esophagus; K29.70 Gastritis, unspecified, without bleeding; K22.70 Barrett's esophagus without dysplasia; K29.80 Duodenitis without bleeding; K44.9 Diaphragmatic hernia without obstruction or gangrene; Q39.8 Other congenital malformations of esophagus; R14.0 Abdominal distension (gaseous); R16.0 Hepatomegaly, not elsewhere classified; J45.50 Severe persistent asthma, uncomplicated; I25.2 Old myocardial infarction; E04.2 Nontoxic multinodular goiter; E89.0 Postprocedural hypothyroidism; E11.9 Type 2 diabetes mellitus without complications; E55.9 Vitamin D deficiency, unspecified; R56.9 Unspecified convulsions; G43.109 Migraine with aura, not intractable, without status migrainosus; G47.33 Obstructive sleep apnea (adult) (pediatric); Z79.899 Other long term (current) drug therapy; Z98.890 Other specified postprocedural states
CPT/HCPCS: 43249; 43239; 82947; 88305; 88342; 94640; C1726; J2250

== ENCOUNTER → 2023-03-15 13:50 | Outpatient (BNVA) | payer OTHER, SELFPAY | PROVIDERS: PCP Physician Assistant; Visit Provider Nurse Practitioner Family | DX: K21.9 Gastro-esophageal reflux disease without esophagitis (principal); K29.30 Chronic superficial gastritis without bleeding; K22.70 Barrett's esophagus without dysplasia; K59.01 Slow transit constipation; K22.2 Esophageal obstruction; K31.84 Gastroparesis; R13.14 Dysphagia, pharyngoesophageal phase | CPT/HCPCS: 99212 ==

== ENCOUNTER 2023-03-19 08:23 | Outpatient (REF) | payer OTHER, SELFPAY | END 2023-03-19 08:24 | disposition home or self-care (01) | LOC: HO.SH 08:23 | PROVIDERS: Visit Provider Physician Assistant | DX: Z01.118 Encounter for examination of ears and hearing with other abnormal findings (principal); H90.3 Sensorineural hearing loss, bilateral | CPT/HCPCS: 92557; 92567 ==

== ENCOUNTER 2023-04-02 06:14 | Outpatient (REF) | payer OTHER, SELFPAY ==
[2023-04-02 07:42] LABS: Valproate 23.7 mcg/mL (50.0-100.0)
[2023-04-02 07:44] LABS: Anion Gap 16 (12-20); Blood Urea Nitrogen 8 mg/dL (9-16); Calcium 10.6 mg/dL (8.4-10.2); Carbon Dioxide 26 mmol/L (22-29); Chloride 103 mmol/L (96-108); Estimated Glomerular Filt Rate > 60; Glucose Random 135 mg/dL (60-115); Potassium 4.6 mmol/L (3.3-5.1); Sodium 140 mmol/L (135-145)
[2023-04-05 18:53] LABS: Levetiracetam Keppra 10.7 mcg/mL (6.0-46.0)
== END 2023-04-02 06:15 | disposition home or self-care (01) ==
LOC: HO.LAB 06:14
PROVIDERS: Absent Provider Psychiatry & Neurology Neurology; PCP Physician Assistant; Visit Provider Physician Assistant
DX: G40.909 Epilepsy, unspecified, not intractable, without status epilepticus (principal); Z79.899 Other long term (current) drug therapy
CPT/HCPCS: 36415; 80048; 80164; 80177

== ENCOUNTER 2023-04-12 13:39 | Outpatient (AMB) | payer OTHER, SELFPAY ==
--- NOTE | 2023-04-12 13:45 | A.OFFVIS_ITS ---
Intake Vital Signs 04/12/23 13:46 Height 5 ft 5 in Weight 175 lb 0.752 oz BMI 29.1 BP 117/67 Blood Pressure Location Lt brachial Position Sitting Pulse 89 Intake Visit Reasons: 4 week follow up Intake Note: Terrance presents in office as a est.patient for a 4week f/u GERD PT CC: pt reports having serve GERD pt denies any other GI Issues Customer Service Correspondence Clerk Required: No Accompanied by: Self / Same As Patient Allergies cat dander [CATS] Allergy (Mild, Verified 04/30/23 14:47) GENERALIZED ALLERGY SYMPTOMS dog dander [DOGS] Allergy (Mild, Verified 04/30/23 14:47) GENERALIZED ALLERGY SYMPTOMS tree and shrub pollen [TREE] Allergy (Mild, Verified 04/30/23 14:47) GENERALIZED ALLERGY SYMPTOMS FROM [place] HPI 4 week follow up HPI Details LAST VISIT GERD (gastroesophageal reflux disease) PPI ordered twice a day. Will check again with pharmacy staff. Will start sucralfate at bedtime. Patient was encouraged to avoid dietary triggers in late night snacking. Staying upright for minimum 3 hours after meals discussed with patient. Gastritis PPI therapy, sucralfate at bedtime. Medical management 1st then fundoplication if necessary Barretts esophagus Diagnosed with Ramirez's esophagus. PPI therapy Dysphagia Patient reports that he continues to have dysphagia. Most likely related to severe reflux. Schatzki ring found, area ballooned. Patient was instructed to eat smaller meals and drink plenty of fluids Constipation Patient continues to have constipation. Discussed with patient the importance of increasing fluid intake. Patient is not drinking enough water. Continue taking Linzess 290 mcg daily. Increase activity to promote better bowel motility. Schatzki's ring Gastroparesis Continue with diet recommended last visit. Eat smaller meals and more often. Patient will be seen in 3 weeks, sooner on as needed basis. Patient is agreeable to this plan and verbalizes understanding of instructions. He was given the opportunity to ask questions and all questions answered. ? Thank you for allowing me to participate in his care Plan Medications New rabeprazole 20 mg PO BID 60 tabs 2RF sucralfate 1 g PO BEDTIME 30 tabs 1RF K21.9, K29.70 TODAY'S VISIT Patient is here today for follow-up. Patient reports that just recently he got his PPI. States that he feels constipated. Reports to have epigastric discomf ort almost all the time. No matter what he eats he feels bloated. However patient admits that he is not following any particular diet, however is trying to avoid carbs. Patient reports that he is not ovary eating. Reports that he is eating small amounts as he feels bloated fairly quickly. Patient denies any diarrhea. Denies any dysphagia or odynophagia. [facility] Medical History ABPA (allergic bronchopulmonary aspergillosis) Asthma Diabetes Enlarged liver Gastritis Gastroparesis Migraine headache with aura Multinodular thyroid Myocardial infarct Postoperative hypothyroidism Schatzki's ring Seizures Sleep apnea Thyroid cancer Vitamin D deficiency Surgical History History of cholecystectomy History of esophagogastroduodenoscopy (EGD) S/P removal of thyroid nodule S/P total thyroidectomy Family History Maternal Grandmother Emphysema, unspecified Father Diabetes Mother No problems noted. Paternal Grandfather Liver cancer Social History Housing: Apartment Are you a primary home health care respiratory therapist to a significant other at home: No Do you presently have visiting nurse or other home services: Yes ([facility] w/MD appointments) Alcohol intake: former Patient Tobacco Use Status: Never used Tobacco e-Cigarette/Vaping Use: Never Used Second Hand Smoke Exposure: No Substance Use Type: Marijuana service: No Current occupational status: disabled Current occupation: rt handed Cognitive needs: No Hearing needs: No Vision needs: No Review of Systems Const Denies weight gain and Denies weight loss ENT Reports no additional complaints, Denies dysphagia and Denies odynophagia Card Reports no additional complaints Resp Reports no additional complaints GI Denies abdominal pain, Denies belching, Denies melena, Reports bloating, Denies change in bowel habits, Reports constipation, Denies dysphagia, Denies excessive flatus, Denies dyspepsia, Reports heartburn, Denies diarrhea, Denies loose stools, Denies nausea, Denies odynophagia and Reports vomiting Reports no additional complaints Musc Reports no additional complaints Neuro Reports no additional complaints Psych Reports no additional complaints Endo Reports no additional complaints Physical Exam Vital Signs: Last Vital Signs Pulse 89 04/12/23 13:46 BP 117/67 04/12/23 13:46 BMI result Body Mass Index 29.1 Const General: healthy appearing, no acute distress and well developed Nutritional Appearance: obese Orientation/consciousness: patient oriented x3 HEENT Head: Yes normal to inspection, Yes normocephalic and Yes atraumatic Face and sinus: Yes normal facial exam Mouth: Normal oral and palatal mucosa present Throat: Yes posterior oropharynx normal, Yes tonsils normal and Yes uvula midline Eyes General: appearance normal, both eyes and all related structures Neck Neck: Yes normal visual inspection, Yes full ROM and Yes trachea midline Thyroid: Thyroid normal Resp Effort & Inspection: normal respiratory effort, able to speak in complete sentences, no tracheal deviation and symmetric chest movement Auscultation: clear to auscultation bilaterally Cardio Rate: regular rate Heart sounds: S1 normal heart sound present and S2 normal heart sound present GI Inspection: Yes normal to inspection, No distended and Yes obesity Palpation (GI): Soft to palpation, not firm, nontender and No hepatosplenomegaly present Auscultation: normal bowel sounds General: Yes no CVA tenderness Back/Spine/Pelvis Back: no CVA tenderness Skin General skin exam: elasticity normal, turgor normal and dry skin Neuro General: patient oriented x3 Psych Appearance: grossly normal Mental Status: mental status grossly normal Speech and movement: Normal speech and movement present Affect: normal affect Judgement: Good judgement present (Psych) Assessment & Plan Assessment & Plan (1) Gastritis: Code(s): K29.70 - Gastritis, unspecified, without bleeding Qualifiers: Gastritis type: superficial Chronicity: unspecified Gastritis bleeding: without bleeding Qualified Code(s): K29.30 - Chronic superficial gastritis without bleeding Plan: Continue current PPI ill and sucralfate. Avoid dietary triggers in late night snacking. Staying upright for minimal 3 hours after meals discussed with him (2) Gastroparesis: Code(s): K31.84 - Gastroparesis Plan: Diagnosis with mild gastroparesis back in December 2022. Patient was encouraged again to eat smaller meals and more often. Gastroparesis diet discussed with patient again. (3) Barretts esophagus: Code(s): K22.70 - Ramirez's esophagus without dysplasia Qualifiers: Ramirez's esophagus type: without dysplasia Qualified Code(s): K22.70 - Ramirez's esophagus without dysplasia Plan: Diagnosed with Ramirez's esophagus on upper endoscopy. Patient is finally able to get his PPI. Encouraged to take it every morning.. Avoid dietary triggers as mentioned (4) GERD (gastroesophageal reflux disease): Code(s): K21.9 - Gastro-esophageal reflux disease without esophagitis Qualifiers: Esophagitis presence: esophagitis presence not specified Qualified Code(s): K21.9 - Gastro-esophageal reflux disease without esophagitis Plan: Continue PPI and sucralfate. Avoid dietary triggers and late night snacking. Staying upright for minimal 3 hours of patient. Patient reports epigastric discomfort and bloating. Will send his stool to check for pancreatic insufficiency as well as start him on enzymes. I will also recheck his A1C (5) Constipation: Code(s): K59.00 - Constipation, unspecified Qualifiers: Constipation type: slow transit constipation Qualified Code(s): K59.01 - Slow transit constipation Plan: Continue Linzess daily. Patient was also encouraged to increase fluid intake and activity to promote better bowel the (6) Nausea: Code(s): R11.0 - Nausea Plan: Will send patient script for Zofran. Patient does report frequent nausea most likely related to severe gastritis. Patient was unable to get his PPI for almost 2 months. Continue PPI treatment with sucralfate. Avoid dietary triggers. I will see patient in 4 weeks, sooner on as needed basis. Patient is agreeable to this plan and verbalizes understanding of instructions. He was given the opportunity to ask questions and all questions answered Thank you for allowing me to participate in his care Orders: Orders Hemoglobin A1c 04/12/23 E11.9 - Type 2 diabetes mellitus without complications Medications: New ondansetron 4 mg PO Q8H PRN 20 tabs 0RF nausea and vomiting R11.0 - Nausea [id number] 24,000-76,000 -120,000 unit (Creon) administer with meals and/or snacks 1 cap PO QID 120 caps 2RF K58.9 - Irritable bowel syndrome without diarrhea Discontinued lansoprazole Discontinued Reason: Doctor's Order 30 mg PO DAILY 30 caps 3RF K21.9 - Gastro-esophageal reflux disease without esophagitis Coding Level of Care Code Est Pt Level 5 (64240) Diagnoses Gastritis K29.30 Gastritis type: superficial Chronicity: unspecified Gastritis bleeding: without bleeding Gastroparesis K31.84 Barretts esophagus K22.70 Ramirez's esophagus type: without dysplasia GERD (gastroesophageal reflux disease) K21.9 Esophagitis presence: esophagitis presence not specified Constipation K59.01 Constipation type: slow transit constipation Nausea R11.0 Time Spent (min) 50 Comment 30 minutes spent with patient and additional 20 minutes spent reviewing his records
[2023-04-12 13:46] VITALS: BP 117/67; PULSE 89; BMI 29.1
== END 2023-04-12 14:11 | disposition home or self-care (01) ==
PROVIDERS: PCP Physician Assistant; Visit Provider Nurse Practitioner Family
DX: K29.30 Chronic superficial gastritis without bleeding (principal); K31.84 Gastroparesis; K22.70 Barrett's esophagus without dysplasia; K21.9 Gastro-esophageal reflux disease without esophagitis; K59.01 Slow transit constipation; R11.0 Nausea
CPT/HCPCS: 99214

== ENCOUNTER → 2023-04-12 13:39 | Outpatient (BNVA) | payer OTHER, SELFPAY | PROVIDERS: PCP Physician Assistant; Visit Provider Nurse Practitioner Family | DX: K29.30 Chronic superficial gastritis without bleeding (principal); K31.84 Gastroparesis; K22.70 Barrett's esophagus without dysplasia; K21.9 Gastro-esophageal reflux disease without esophagitis; K59.01 Slow transit constipation; R11.0 Nausea | CPT/HCPCS: 99212 ==

== ENCOUNTER 2023-04-15 04:54 | Emergency (ER) | payer OTHER, SELFPAY ==
--- NOTE | ~2023-04-15 | XR_ITS ---
EXAMINATION: XR CHEST CLINICAL INFORMATION: Chest pain COMPARISON: 04/13/2022 TECHNIQUE: Frontal view of the chest was obtained. FINDINGS: The lungs are well expanded. There is no focal consolidation, edema, or effusion. No pneumothorax. The cardiomediastinal silhouette is within normal limits. No acute osseous abnormality. XR/XR chest 1V IMPRESSION: Clear lungs.
--- NOTE | ~2023-04-15 | CT_ITS ---
EXAMINATION: CT HEAD WITHOUT CONTRAST CLINICAL INFORMATION: Right-sided headache. Head injury. Seizure. COMPARISON: 04/28/2021 TECHNIQUE: Contiguous axial imaging was performed from the skull base to vertex without intravenous contrast. This CT examination was performed using dose optimization techniques as appropriate, variously including the following: * Automated exposure control * Adjustment of mA and/or kV according to patient size (this includes techniques or standardized protocols for targeted exams where dose is matched to indication/reason for exam; i.e. extremities or head) Use of iterative reconstruction technique DLP: 695 mGy-cm. FINDINGS: There is no evidence of acute intracranial hemorrhage or territorial infarction. No abnormal mass effect or midline shift is seen. Vora to white matter differentiation is well preserved. No extra-axial fluid collections are identified. No hydrocephalus. No significant volume loss. There is no abnormal attenuation within the brain parenchyma. The osseous structures and soft tissues are normal. Mucous retention cyst in the left maxillary sinus. The mastoid air cells and visualized portions of the paranasal sinuses are otherwise well aerated. CT/CT head/brain wo IV con IMPRESSION: No acute intracranial pathology.
--- NOTE | 2023-04-15 05:01 | ECG_ITS ---
Test Reason : SEIZURE Blood Pressure : / mmHG Vent. Rate : 062 BPM Atrial Rate : 062 BPM P-R Int : 128 ms QRS Dur : 086 ms QT Int : 410 ms P-R-T Axes : 010 010 028 degrees QTc Int : 416 ms Normal sinus rhythm with sinus arrhythmia Nonspecific T wave abnormality Abnormal ECG When compared with ECG of 13-APR-2022 01:22, No significant change was found Referred By: Vik Vanegas Electronically Signed By:SWAPNA DURON MD
--- NOTE | 2023-04-15 05:12 | ED.SEIZURE ---
HPI - Seizure General Chief Complaint: General Medical Stated Complaint: Seizure Time Seen by Provider: 04/15/23 04:56 Source: patient and EMS Mode of arrival: EMS Limitations: no limitations History of Present Illness HPI Narrative: 42-year-old male with history of seizure disorder on Dilantin and Keppra presents with at least 2 possible seizures today. Patient has not been feeling well. Went to the bathroom earlier today had nausea vomiting and was found on the floor. Unclear whether he hit his head but he does have a moderate headache on the right side. Family then noted another with a thought might be a seizure and contacted 911. Patient upon arrival of EMS noted that he appeared to be somewhat confused but nonfocal neurologically. He seems to have cleared on route. Currently describes a headache that is moderate nature. Right-sided. Does not radiate. Not associated photo or phonophobia. Associated with nausea vomiting. He denies any diarrhea, abdominal pain. Patient not on any blood thinning medications. Seizure History: Yes Related Data Home Medications Medication Instructions Recorded Confirmed cyclobenzaprine 10 mg tablet 10 mg PO TID PRN Muscle Spasm 04/14/22 03/15/23 meloxicam 15 mg tablet 15 mg PO DAILY 02/01/23 03/15/23 mepolizumab 100 mg/mL subcutaneous 100 mg subcut Q4W 02/01/23 03/15/23 syringe (Nucala) Previous Rx's Medication Instructions Recorded levetiracetam 1,000 mg tablet 1,500 mg PO BID #60 tabs 10/15/20 tiotropium bromide 2.5 2 puff PO DAILY 30 days #4 grams 04/28/21 mcg/actuation mist for inhalation (Spiriva Respimat) thyrotropin mir 0.9 mg 0.9 mg IM DAILY 2 doses #2 mL 01/19/22 intramuscular solution (Thyrogen) simethicone 80 mg chewable tablet 80 mg PO BID-QID PRN abdominal 04/14/22 (Gas Relief 80 (simethicone)) distention #30 tabs divalproex 500 mg tablet,delayed 1,000 mg PO BID #30 tabs 08/19/22 release polyethylene glycol 3350 17 gram 17 g PO DAILY #100 ea 09/26/22 oral powder packet (Miralax) theophylline 400 mg 200 mg PO DAILY #15 tabs 10/06/22 tablet,extended release 24 hr carvedilol 3.125 mg tablet 3.125 mg PO BID 90 days #180 tabs 11/08/22 dupilumab 300 mg/2 mL subcutaneous 300 mg (2 mL) subcut Q2W 28 days 11/09/22 pen injector (Dupixent) #4 mL cholecalciferol (vitamin D3) 50 50 mcg PO DAILY #90 caps 12/05/22 mcg (2,000 unit) capsule Sharps container #1 ea 12/18/22 aspirin 81 mg tablet,delayed 81 mg PO DAILY 90 days #90 tabs 01/03/23 release sertraline 100 mg tablet 100 mg PO DAILY 90 days #90 tabs 01/03/23 gabapentin 300 mg capsule 300 mg PO BEDTIME pain 30 days #30 02/01/23 caps magnesium glycinate 100 mg tablet 200 mg PO DAILY migraine headaches 02/01/23 30 days #30 tabs riboflavin (vitamin B2) 400 mg 400 mg PO DAILY pain 30 days #30 02/01/23 tablet tabs linaclotide 290 mcg capsule 290 mcg PO QAM #30 caps 02/05/23 (Linzess) levothyroxine 175 mcg tablet 175 mcg PO DAILY 30 days #30 tabs 02/15/23 atorvastatin 40 mg tablet 40 mg PO BEDTIME 90 days #90 tabs 03/08/23 lisinopril 10 mg tablet 10 mg PO DAILY 90 days #90 tabs 03/08/23 metformin 500 mg tablet,extended 500 mg PO DAILY 90 days #90 tabs 03/15/23 release 24 hr montelukast 10 mg tablet 10 mg PO BEDTIME 90 days #90 tabs 03/15/23 nystatin 100,000 unit/mL oral 5 ml PO DAILY PRN thrush 30 days 03/15/23 suspension #200 mL rabeprazole 20 mg tablet,delayed 20 mg PO DAILY #90 tabs 03/22/23 release sucralfate 100 mg/mL oral 10 ml PO BID #400 mL 03/22/23 suspension Ventolin HFA 90 mcg/actuation 2 puff PO Q6H PRN for dyspnea #18 04/09/23 aerosol inhaler (albuterol sulfate) grams [id number] 1 cap PO QID #120 caps 04/12/23 24,000-76,000-120,000 unit capsule,delayed rel (Creon) ondansetron 4 mg disintegrating 4 mg PO Q8H PRN nausea and 04/12/23 tablet vomiting #20 tabs Allergies Allergy/AdvReac Type Severity Reaction Status Date / Time cat dander [CATS] Allergy Mild GENERALIZED Verified 04/12/23 13:46 ALLERGY SYMPTOMS dog dander [DOGS] Allergy Mild GENERALIZED Verified 04/12/23 13:46 ALLERGY SYMPTOMS tree and shrub pollen [TREE] Allergy Mild GENERALIZED Verified 04/12/23 13:46 ALLERGY SYMPTOMS FROM [place] Review of Systems Review of Systems: CONSTITUTIONAL: Denies weight loss, fever and chills. HEENT: Denies changes in vision and hearing. RESPIRATORY: Denies SOB and cough. CV: Denies palpitations no CP. GI: Denies abdominal pain, nausea, vomiting and diarrhea. : Denies dysuria and urinary frequency. MSK: Denies myalgia and joint pain. SKIN: Denies rash and pruritus. NEUROLOGICAL: See HPI PSYCHIATRIC: Denies recent changes in mood. Denies anxiety and depression. All other ROS are negative unless in HPI PMFSH Past Medical History Medical History ABPA (allergic bronchopulmonary aspergillosis) Asthma Diabetes Enlarged liver Gastritis Gastroparesis Migraine headache with aura Multinodular thyroid Myocardial infarct Postoperative hypothyroidism Schatzki's ring Seizures Sleep apnea Thyroid cancer Vitamin D deficiency Surgical History History of cholecystectomy History of esophagogastroduodenoscopy (EGD) S/P removal of thyroid nodule S/P total thyroidectomy Family History Family History Maternal Grandmother Emphysema, unspecified Father Diabetes Mother No problems noted. Paternal Grandfather Liver cancer Social History Social History Housing: Apartment Are you a primary daycare director to a significant other at home: No Do you presently have visiting nurse or other home services: Yes ([facility] w/ appointments) Alcohol intake: former Patient Tobacco Use Status: Never used Tobacco e-Cigarette/Vaping Use: Never Used Second Hand Smoke Exposure: No Substance Use Type: Marijuana Advance Directives: No Advance Directives Information Provided: No service: No Current occupational status: disabled Current occupation: rt handed Cognitive needs: No Hearing needs: No Vision needs: No Physical Exam Vital Signs: Vital Signs: Last Vital Signs Temp 98.1 F 04/15/23 05:59 Pulse 65 04/15/23 05:59 Resp 16 04/15/23 05:59 BP 145/81 H 04/15/23 05:59 Pulse Ox 98 04/15/23 05:59 O2 Del Method Room Air 04/15/23 05:59 BMI result Body Mass Index 28.9 GEN: Well developed, no acute distress, alert, oriented HEENT: Normocephalic, atraumatic, normal external ears, nose appears normal, no oropharyngeal edema or exudates Eyes: Normal to appearance Neck: Supple, no lymphadenopathy Respiratory: Talks in complete sentences, no respiratory distress, clear to auscultation bilaterally Cardiovascular: Regular rate and rhythm, no murmurs rubs or gallops Abdomen: Soft, nontender, nondistended, no guarding, no rebound Back: No CVA tenderness Extremities: No clubbing cyanosis or edema Neurologic: No focal neurologic deficits, cranial nerves 2-12 intact, strength is 5/5 bilaterally Skin: No rash Course Reevaluation(s) Reevaluation #1: Patient may have had a seizure on the CT scan table. Ordering Ativan 1 mg IV now. Time: 05:12 Reevaluation #2: CT that is clear. Will order Toradol. Also will give patient Keppra 500 mg IV. Time: 06:19 Reevaluation #3: Patient's care will be transitioned to the oncoming provider at 7:00 a.m.. Time: 06:48 Medications Administered Discontinued Medications Generic Name Dose Route Start Last Admin Trade Name Boyq PRN Reason Stop Dose Admin Acetaminophen 975 mg 04/15/23 05:01 04/15/23 05:41 Acetaminophen 325 Mg Tablet PO 04/15/23 05:02 975 mg ONCE ONE Administration Sodium Chloride 1,000 mls @ 999 mls/hr 04/15/23 05:15 04/15/23 05:40 Ns IV 04/15/23 06:15 999 mls/hr .Q1H1M FREDY Administration Lorazepam 1 mg 04/15/23 05:11 04/15/23 05:41 Lorazepam 2 Mg/Ml Vial IVPUSH 04/15/23 05:12 1 mg ONCE ONE Administration Metoclopramide HCl 10 mg 04/15/23 05:01 04/15/23 05:41 Metoclopramide Hcl 10 Mg/2 Ml Vial IVPUSH 04/15/23 05:02 10 mg ONCE ONE Administration Medical Decision Making Medical Decision Making [facility] Narrative: [age] male presents with possible seizure x2. Examination revealed no focal neurologic deficits. There was mild swelling to the right scalp area. However there are no ecchymoses. No evidence of basilar skull fracture. Rest of examination is unremarkable. Seems that the symptoms were preceded by nausea vomiting. I will obtain routine laboratory analysis to rule out anemia, electrolyte abnormality. Will obtain a CT scan to rule out acute head injury such as intracranial bleeding. Will check a Dilantin level to see if he is subtherapeutic. Keppra level would not come back today and will not order at this time. Differential Diagnosis Differential Diagnoses: The differential diagnosis associated with the presentation includes (See above) Admission/Observation Consideration of admission/observation: Escalation of care including admission/observation considered Lab Data [facility] Lab Attestation statement: I reviewed the patient's lab results. 04/15/23 05:39 04/15/23 05:39 Labs: Lab Results 04/15/23 04/15/23 04/15/23 Range/Units 05:39 05:39 05:39 WBC 9.9 (4.8-10.8) X10*3/uL RBC 5.21 (4.60-5.80) X10*6/uL Hgb 15.2 (14.0-18.0) g/dl Hct 45.0 (42.0-52.0) % MCV 86.4 (80.0-98.0) fL MCH 29.2 (27.0-33.0) pg MCHC 33.8 (31.0-36.0) g/dl RDW 13.4 (11.0-16.0) % Plt Count 316 (160-400) X10*3/uL MPV 9.2 L (9.4-12.4) fL Immature Gran % (Auto) 0.5 H (0.0-0.4) % Neut % (Auto) 59.5 (45-73) % Lymph % (Auto) 29.2 (20-40) % Howard % (Auto) 6.4 (2-11) % Eos % (Auto) 3.7 (0-4) % Baso % (Auto) 0.7 (0-2) % Lymph # (Auto) 2.9 (1.2-4.9) X10*3/uL Howard # (Auto) 0.6 (0.1-1.2) X10*3/uL Eos # (Auto) 0.4 (0.0-0.4) X10*3/uL Baso # (Auto) 0.1 (0.0-0.2) X10*3/uL Abs Immat Gran (auto) 0.05 H (0.00-0.03) X10*3/uL Absolute Neuts (auto) 5.9 (2.0-8.3) x10*3/uL Absolute Nucleated RBC 0.000 (0.0-0.012) X10*3/uL Nucleated RBC % (auto) 0.0 (0.0-0.2) /100WBC Sodium 134 L (135-145) mmol/L Potassium 4.3 (3.3-5.1) mmol/L Chloride 100 (96-108) mmol/L Carbon Dioxide 18 L (22-29) mmol/L Anion Gap 20 (12-20) BUN 8 L (9-16) mg/dL Creatinine 0.88 (0.5-1.4) mg/dL Estim Creat Clear Calc 104.7 Estimated GFR > 60 Random Glucose 126 H (60-115) mg/dL Calcium 11.8 H D (8.4-10.2) mg/dL Total Bilirubin 0.4 (0.0-1.0) mg/dL AST 21 (5-37) U/L ALT 37 (0-40) U/L Alkaline Phosphatase 52 (39-117) U/L Troponin I High Sens < 2.7 (<3.5-35.0) ng/L Total Protein 7.6 (6.5-8.0) g/dL Albumin 4.6 (3.5-5.0) g/dL Phenytoin (10.0-20.0) ug/mL Valproic Acid (50.0-100.0) mcg/mL 04/15/23 Range/Units 05:39 WBC (4.8-10.8) X10*3/uL RBC (4.60-5.80) X10*6/uL Hgb (14.0-18.0) g/dl Hct (42.0-52.0) % MCV (80.0-98.0) fL MCH (27.0-33.0) pg MCHC (31.0-36.0) g/dl RDW (11.0-16.0) % Plt Count (160-400) X10*3/uL MPV (9.4-12.4) fL Immature Gran % (Auto) (0.0-0.4) % Neut % (Auto) (45-73) % Lymph % (Auto) (20-40) % Howard % (Auto) (2-11) % Eos % (Auto) (0-4) % Baso % (Auto) (0-2) % Lymph # (Auto) (1.2-4.9) X10*3/uL Howard # (Auto) (0.1-1.2) X10*3/uL Eos # (Auto) (0.0-0.4) X10*3/uL Baso # (Auto) (0.0-0.2) X10*3/uL Abs Immat Gran (auto) (0.00-0.03) X10*3/uL Absolute Neuts (auto) (2.0-8.3) x10*3/uL Absolute Nucleated RBC (0.0-0.012) X10*3/uL Nucleated RBC % (auto) (0.0-0.2) /100WBC Sodium (135-145) mmol/L Potassium (3.3-5.1) mmol/L Chloride (96-108) mmol/L Carbon Dioxide (22-29) mmol/L Anion Gap (12-20) BUN (9-16) mg/dL Creatinine (0.5-1.4) mg/dL Estim Creat Clear Calc Estimated GFR Random Glucose (60-115) mg/dL Calcium (8.4-10.2) mg/dL Total Bilirubin (0.0-1.0) mg/dL AST (5-37) U/L ALT (0-40) U/L Alkaline Phosphatase (39-117) U/L Troponin I High Sens (<3.5-35.0) ng/L Total Protein (6.5-8.0) g/dL Albumin (3.5-5.0) g/dL Phenytoin < 1.8 L* (10.0-20.0) ug/mL Valproic Acid 31.8 L (50.0-100.0) mcg/mL Independent Interpretation I performed an independent interpretation of an: EKG (Normal sinus rhythm heart rate 62, no acute ST elevations depressions, nonspecific T-wave changes, normal intervals) and CT Scan (No acute intracranial process) Radiology Impression Discussion of test interpretation with radiology: I have reviewed the radiologist's reading. Radiologist Impression: No acute findings Independent Historian Clinical information obtained from an independent historian. History obtained from or confirmed by: EMS Prescription Management I considered prescription management with: Pain Medication Discharge Plan Discharge Clinical Impression: Seizures Patient Disposition: Still a Patient Instructions: Recurrent Seizures in Adults (ED) Prescriptions: No Action Thyrogen 0.9 mg recon soln 0.9 mg IM DAILY Qty: 2 0RF divalproex 500 mg tablet,delayed release (DR/EC) 1,000 mg PO BID Qty: 30 2RF theophylline 400 mg tablet extended release 24 hr 200 mg PO DAILY Qty: 15 6RF carvedilol 3.125 mg tablet 3.125 mg PO BID 90 Days Qty: 180 2RF Dupixent Pen 300 mg/2 mL pen injector 300 mg subcut Q2W 28 Days Qty: 4 12RF Rx Instructions: Initial dose 600 mg, then 300 mg every 2 weeks subcutaneously (DME) Sharps container See Rx Instructions .Route .MEDSUPPLY Qty: 1 0RF Rx Instructions: As directed aspirin 81 mg tablet,delayed release (DR/EC) 81 mg PO DAILY 90 Days Qty: 90 2RF sertraline 100 mg tablet 100 mg PO DAILY 90 Days Qty: 90 2RF levothyroxine 175 mcg tablet 175 mcg PO DAILY 30 Days Qty: 30 3RF lisinopril 10 mg tablet 10 mg PO DAILY 90 Days Qty: 90 3RF atorvastatin 40 mg tablet 40 mg PO BEDTIME 90 Days Qty: 90 3RF rabeprazole 20 mg tablet,delayed release (DR/EC) 20 mg PO DAILY Qty: 90 2RF sucralfate 100 mg/mL suspension 10 ml PO BID Qty: 400 3RF Rx Instructions: Please take it at noon time and at bedtime albuterol sulfate [Ventolin HFA] 90 mcg/actuation HFA aerosol inhaler 2 puff PO Q6H PRN (Reason: for dyspnea) Qty: 18 6RF levetiracetam 1,000 mg Tablet 1,500 mg PO BID Qty: 60 0RF Spiriva Respimat 2.5 mcg/actuation mist 2 puff PO DAILY 30 Days Qty: 4 3RF meloxicam 15 mg tablet 15 mg PO DAILY Nucala 100 mg/mL syringe 100 mg subcut Q4W metformin 500 mg tablet extended release 24 hr 500 mg PO DAILY 90 Days Qty: 90 2RF nystatin 100,000 unit/mL suspension 5 ml PO DAILY PRN (Reason: thrush) 30 Days Qty: 200 3RF Rx Instructions: administer 1/2 of dose in each side of the mouth montelukast 10 mg tablet 10 mg PO BEDTIME 90 Days Qty: 90 2RF cyclobenzaprine 10 mg tablet 10 mg PO TID PRN (Reason: Muscle Spasm) simethicone [Gas Relief 80 (simethicone)] 80 mg tablet,chewable 80 mg PO BID-QID PRN (Reason: abdominal distention) Qty: 30 0RF cholecalciferol (vitamin D3) 50 mcg (2,000 unit) capsule 50 mcg PO DAILY Qty: 90 2RF polyethylene glycol 3350 [Miralax] 17 gram powder in packet 17 g PO DAILY Qty: 100 3RF Linzess 290 mcg capsule 290 mcg PO QAM Qty: 30 4RF ondansetron 4 mg tablet,disintegrating 4 mg PO Q8H PRN (Reason: nausea and vomiting) Qty: 20 0RF Creon 24,000-76,000 -120,000 unit capsule,delayed release(DR/EC) 1 cap PO QID Qty: 120 2RF Rx Instructions: administer with meals and/or snacks gabapentin 300 mg capsule 300 mg PO BEDTIME 30 Days Qty: 30 0RF riboflavin (vitamin B2) 400 mg tablet 400 mg PO DAILY 30 Days Qty: 30 0RF magnesium glycinate 100 mg tablet 200 mg PO DAILY 30 Days Qty: 30 0RF Referrals: Saúl Maier PA-C [Primary Care Provider] - 3 days
[2023-04-15 05:13] VITALS: BP 147/94; BP 154/75; PULSE 57; PULSE 60; RESP 16; TEMP 36.2; O2SAT 97; BMI 28.9
[2023-04-15] MEDS: 0.9 % Sodium Chloride 1,000 ML 999 ML IV (05:40)
[2023-04-15] MEDS: LORazepam 2 MG/ML VIAL 1 MG IVPUSH (05:41)
[2023-04-15] MEDS: Metoclopramide HCl 10 MG/2 ML VIAL IVPUSH (05:41)
[2023-04-15] MEDS: Acetaminophen 325 MG TABLET 975 MG PO (05:41)
--- NOTE | 2023-04-15 05:48 | MHC.EDTECH ---
PATIENT EKG TAKEN AND WAS READ BY PROVIDER ,PT WAS CHANGE INTO HOSPITAL ATTIRE ,FRANKLIN MAYORGA IN ROOM GETTING LABS .
[2023-04-15 05:50] LABS: MANUAL DIFF FLAG NO
[2023-04-15 05:51] LABS: Basophils Absolute Auto 0.1 X10*3/uL (0.0-0.2); Basophils Percent Auto 0.7 % (0-2); Eosinophils Absolute Auto 0.4 X10*3/uL (0.0-0.4); Eosinophils Percent Auto 3.7 % (0-4); Hemoglobin 15.2 g/dl (14.0-18.0); Imm Gran Abs Auto 0.05 X10*3/uL (0.00-0.03); Imm Gran Pct Auto 0.5 % (0.0-0.4); Lymphocytes Absolute Auto 2.9 X10*3/uL (1.2-4.9); Lymphocytes Percent Auto 29.2 % (20-40); Mean Corpuscular HGB Conc 33.8 g/dl (31.0-36.0); Mean Corpuscular Hemoglobin 29.2 pg (27.0-33.0); Mean Corpuscular Volume 86.4 fL (80.0-98.0); Mean Platelet Volume 9.2 fL (9.4-12.4); Monocytes Absolute Auto 0.6 X10*3/uL (0.1-1.2); Monocytes Percent Auto 6.4 % (2-11); Neutrophils Absolute Auto 5.9 x10*3/uL (2.0-8.3); Neutrophils Percent Auto 59.5 % (45-73); Platelet Count 316 X10*3/uL (160-400); Red Blood Count 5.21 X10*6/uL (4.60-5.80); Red Cell Distribution Width 13.4 % (11.0-16.0); White Blood Count 9.9 X10*3/uL (4.8-10.8)
[2023-04-15 05:59] VITALS: BP 145/81; PULSE 65; RESP 16; TEMP 36.7; O2SAT 98
--- NOTE | 2023-04-15 06:00 | MHC.EDTECH ---
0600 ROUNDING DONE ,VITALS SIGN TAKEN ,PT RESTING QUIETLY IN BED ,SEIZURE PADS IN PLACE AND URINAL AT BEDSIDE ,WARM BLANKET GIVEN AND RED SOCK ,PT MOM IN ROOM .
[2023-04-15 06:07] LABS: Alanine Aminotransferase 37 U/L (0-40); Albumin Level 4.6 g/dL (3.5-5.0); Alkaline Phosphatase 52 U/L (39-117); Anion Gap 20 (12-20); Aspartate Amino Transferase 21 U/L (5-37); Bilirubin Total 0.4 mg/dL (0.0-1.0); Blood Urea Nitrogen 8 mg/dL (9-16); Calcium 11.8 mg/dL (8.4-10.2); Carbon Dioxide 18 mmol/L (22-29); Chloride 100 mmol/L (96-108); Creatinine Clr Calc Pharmacy 104.7; Estimated Glomerular Filt Rate > 60; Glucose Random 126 mg/dL (60-115); Potassium 4.3 mmol/L (3.3-5.1); Sodium 134 mmol/L (135-145); Total Protein 7.6 g/dL (6.5-8.0)
[2023-04-15 06:09] LABS: Phenytoin Dilantin < 1.8 ug/mL (10.0-20.0)
[2023-04-15 06:11] LABS: Troponin-I High Sensitivity < 2.7 ng/L (<3.5-35.0)
[2023-04-15 06:40] LABS: Valproate 31.8 mcg/mL (50.0-100.0)
[2023-04-15] MEDS: Gabapentin 300 MG CAPSULE PO (07:07)
[2023-04-15] MEDS: dexAMETHasone sod phosphate 10 MG/ML VIAL IVPUSH (07:07)
[2023-04-15] MEDS: levETIRAcetam 500 MG/5 ML VIAL IV (07:07)
--- NOTE | 2023-04-15 07:16 | PC.NURSE ---
Alert and oriented, states headache improved but still 7/10 pain in head. Patient stating he needs to urinate, provided with urinal
[2023-04-15 07:20] LABS: Appearance Urine Clear; Color Urine Dark Yellow; Glucose Urine UA Negative (Negative); Leukocyte Esterase Urine Negative (Negative); Nitrite Urine Negative (Negative); PH 7.5 (5.0-9.0); Specific Gravity - Urine 1.015 (1.005-1.025); Urine Blood Negative (Negative); Urine Ketones Negative (Negative); Urine Protein Negative (Neg-Trace)
[2023-04-15 07:27] LABS: Amphetamine Screen Urine Not Detected (Not Detect); Barbiturates, Urine Not Detected (Not Detect); Benzodiazepines Screen Urine Not Detected (Not Detect); Cannabinoid Screen Urine POSITIVE (Not Detect); Cocaine Screen Urine Not Detected (Not Detect); Fentanyl, urine Not Detected (Not Detect); Opiate Screen Urine Not Detected (Not Detect); Phencyclidine Screen Urine Not Detected (Not Detect)
--- NOTE | 2023-04-15 08:14 | PC.NURSE ---
Discharge paperwork reviewed with patient who verbalized understanding. Reports feeling much better and no longer has a headache
== END 2023-04-15 08:36 | disposition home or self-care (01) ==
PROVIDERS: Emergency Provider Emergency Medicine; PCP Physician Assistant
DX: R56.9 Unspecified convulsions (principal); R07.89 Other chest pain; Z79.899 Other long term (current) drug therapy
CPT/HCPCS: 36415; 70450; 71045; 80053; 80164; 80185; 80307; 81003; 84484; 85025; 93005; 96361; 96374; 96375; 99284; J1100; J1953; J2060; J2765

== ENCOUNTER → 2023-04-15 05:01 | Outpatient (BNV) | payer OTHER, SELFPAY | PROVIDERS: Emergency Provider Emergency Medicine; PCP Physician Assistant; Visit Provider Internal Medicine Cardiovascular Disease | DX: G40.89 Other seizures (principal) | CPT/HCPCS: 93010 ==

== ENCOUNTER 2023-04-23 06:13 | Outpatient (REF) | payer OTHER, SELFPAY ==
[2023-04-23 07:24] LABS: Estimated Average Glucose 131 mg/dL; Hemoglobin A1c % 6.2 %
[2023-04-23 07:55] LABS: Alanine Aminotransferase 29 U/L (0-40); Albumin Level 4.3 g/dL (3.5-5.0); Alkaline Phosphatase 45 U/L (39-117); Anion Gap 16 (12-20); Aspartate Amino Transferase 15 U/L (5-37); Bilirubin Total 0.3 mg/dL (0.0-1.0); Blood Urea Nitrogen 13 mg/dL (9-16); Carbon Dioxide 24 mmol/L (22-29); Chloride 104 mmol/L (96-108); Estimated Glomerular Filt Rate > 60; Glucose Fasting 132 mg/dL (60-99); Potassium 4.7 mmol/L (3.3-5.1); Sodium 139 mmol/L (135-145)
[2023-04-23 07:59] LABS: Free T4 (Free Thyroxine) 0.83 ng/dL (0.71-1.85)
[2023-04-23 08:12] LABS: Thyroid Stimulating Hormone 49.31 uIU/mL (0.32-4.0)
[2023-04-25 20:48] LABS: Levetiracetam Keppra 8.8 mcg/mL (6.0-46.0)
== END 2023-04-23 06:14 | disposition home or self-care (01) ==
LOC: HO.LAB 06:13
PROVIDERS: Internal Medicine; Absent Provider Psychiatry & Neurology Neurology; PCP Physician Assistant; Visit Provider Physician Assistant
DX: G40.909 Epilepsy, unspecified, not intractable, without status epilepticus (principal); E89.0 Postprocedural hypothyroidism; R73.09 Other abnormal glucose
CPT/HCPCS: 36415; 80053; 80177; 83036; 84439; 84443

== ENCOUNTER 2023-04-30 14:19 | Outpatient (AMB) | payer OTHER, SELFPAY ==
--- NOTE | 2023-04-30 14:42 | MHC.PC.OV ---
Vital Signs 04/30/23 14:44 Height 5 ft 5 in Weight 173 lb 8 oz BMI 28.9 BP 112/76 Blood Pressure Location Rt brachial Position Sitting Pulse 82 Pulse Source Pulse Oximeter Pulse Oximetry (%) 96 Oxygen Delivery Method Room Air Intake Visit Reasons: [facility] [place]/04-15-23/Seizure Allergies cat dander [CATS] Allergy (Mild, Verified 04/30/23 14:47) GENERALIZED ALLERGY SYMPTOMS dog dander [DOGS] Allergy (Mild, Verified 04/30/23 14:47) GENERALIZED ALLERGY SYMPTOMS tree and shrub pollen [TREE] Allergy (Mild, Verified 04/30/23 14:47) GENERALIZED ALLERGY SYMPTOMS FROM [place] Tobacco use date assessed: 04/30/23 HPI HPI Comments History of Present Illness Details 42-year-old male with a past medical history significant for seizure disorder, cardiomyopathy, ND, thyroid cancer, hypothyroidism, MEHNAZ on CPAP, asthma, GERD and depression. Patient presents today for ER follow-up from 04/15/23.Patient presented to [facility] ER with at least 2 possible seizures a day, patient went to the bathroom and had nausea vomiting and was found on the floor. Was unclear if he hit his head, when presented to the ER did complain of a moderate right-sided headache. Head CT showed no acute intracranial pathology, chest x-ray unremarkable, sodium level 134, calcium elevated at 11.8. Labs redrawn on 04/23/23 sodium and calcium have normalized. Patient reports he currently follows with Neurology Dr. Hernandez, states he called and LM to be seen. Has not recieved call back. Patient reports having time lapses in his day where he wakes up in the morning and then all of a sudden it is afternoon and he does not remember taking his medications are not. Dr. Rapp offices contacted to make aware of above and patient scheduled for a sooner appointment on 05/14/23. Patient aware. Patient encouraged to set up morning and evening medications boxes for the week to ensure he does not forget taking his required medications. [facility] Medical History ABPA (allergic bronchopulmonary aspergillosis) Asthma Diabetes Enlarged liver Gastritis Gastroparesis Migraine headache with aura Multinodular thyroid Myocardial infarct Postoperative hypothyroidism Schatzki's ring Seizures Sleep apnea Thyroid cancer Vitamin D deficiency Surgical History History of cholecystectomy History of esophagogastroduodenoscopy (EGD) S/P removal of thyroid nodule S/P total thyroidectomy Family History Maternal Grandmother Emphysema, unspecified Father Diabetes Mother No problems noted. Paternal Grandfather Liver cancer Social History Housing: Apartment Are you a primary childcare provider to a significant other at home: No Do you presently have visiting nurse or other home services: Yes ([facility] w/MD appointments) Alcohol intake: former Patient Tobacco Use Status: Never used Tobacco e-Cigarette/Vaping Use: Never Used Second Hand Smoke Exposure: No Substance Use Type: Marijuana service: No Current occupational status: disabled Current occupation: rt handed Cognitive needs: No Hearing needs: No Vision needs: No Questionnaire PHQ-9 Over the last 2 weeks, how often have you been bothered by any of the following problems? 1. Little interest or pleasure in doing things: several days 2. Feeling down, depressed, or hopeless: several days 3. Trouble falling or staying asleep, or sleeping too much: nearly every day 4. Feeling tired or having little energy: nearly every day 5. Poor appetite or overeating: more than half the days 6. Feeling bad about yourself - or that you are a failure or have let yourself or your family down: nearly every day 7. Trouble concentrating on things, such as reading the newspaper or watching television: nearly every day 8. Moving or speaking so slowly that other people could have noticed. Or the opposite - being so fidgety or restless that you have been moving around a lot more than usual: more than half the days 9. Thoughts that you would be better off or of hurting yourself in some way: not at all Total score: 18 Depression Screening Interpretation: Positive Depression Screening Follow-up: Existing condition and In treatment 85975 - PHQ-9 Billing: Yes Source: Developed by Drs. Ramses Nguyen, Debi Russ, Colin Rowell and colleagues, with an educational javy from [employer]. Thrive Questionnaire Date Thrive assessed: 11/20/22 I am a: Patient What is your living situation today?: I have a steady place to live Within the past 12 months, did the food you bought not last and you didn't have the money to get more?: Never true Within the past 12 months, did you worry whether your food would run out before you got money to buy more?: Never true Currently or been in a relationship where the following occur: no concerns reported AUDIT C Alcohol Use Questionnaire (AUDIT-C) 1. How often do you have a drink containing alcohol?: Never 3. How often do you have six or more drinks on one occasion?: Never Total Score: 0 MOOSE-7 AMB Questionnaire MOOSE-7 Date MOOSE - 7 assessed: 11/20/22 Feeling nervous, anxious, or on edge: 3 = Nearly every day Not being able to stop or control worryin = Nearly every day Worrying too much about different things: 3 = Nearly every day Trouble relaxin = Nearly every day Being so restless that it is hard to sit still: 3 = Nearly every day Becoming easily annoyed or irritable: 3 = Nearly every day Feeling afraid as if something awful might happen: 3 = Nearly every day Total MOOSE-7 score (0-4 normal; 5-9 mild; 10-14 moderate; 15-21 severe): 21 Source: Developed by Drs. Ramses Nguyen, Debi Russ, Colin Rowell and colleagues, with an educational javy from [employer]. MOOSE-7 Assessment Billing MOOSE-7 Assessment Tool: MOOSE-7 Assessment 91235 Review of Systems Const Denies chills, Denies fatigue, Denies fever(s) and Denies poor appetite Eyes Denies no additional complaints ENT Reports Normal hearing present Card Denies chest pain, Denies syncope, Denies rapid heart rate and Denies dyspnea Resp Denies cough and Denies dyspnea GI Denies change in stool character, Denies constipation, Denies diarrhea, Denies nausea and Denies vomiting Denies dysuria, Denies urinary frequency and Denies urinary urgency Neuro Reports Normal hearing present, Denies confusion, Denies syncope and Denies seizure-like activity Psych Denies confusion Endo Denies fatigue Physical exam (Primary Care) Vital Signs: Last Vital Signs Pulse 82 04/30/23 14:44 BP 112/76 04/30/23 14:44 Pulse Ox 96 04/30/23 14:44 Oxygen Delivery Method Room Air 04/30/23 14:44 BMI result Body Mass Index 28.9 Tobacco/Smoking Status: Tobacco use Status Tobacco use date assessed 04/30/23 04/30/23 14:50 Patient Tobacco Use Status Never used Tobacco 04/30/23 14:50 e-Cigarette/Vaping Use Never Used 04/30/23 14:43 PHQ-9: PHQ-9 Score PHQ-9: Total score 18 04/30/23 15:05 Depression Screening Interpretation: Positive Depression Screening Follow-up: Existing condition and In treatment Thrive Assessment: Date of Thrive Assessment Date Thrive assessed 11/20/22 04/30/23 14:43 Currently or been in a relationship where the following occur: no concerns reported Const General: No confusion Orientation/consciousness: No confusion HENMT Head: Yes normocephalic and Yes atraumatic Eyes Conjunctivae: conjunctivae normal Sclerae: sclerae normal Pupils: Equal, round and reactive pupils present and Pupils normal by confrontation EOM: EOMs intact bilaterally Chest Chest palpation & inspection: normal inspection of the chest Resp Effort & Inspection: normal respiratory effort Auscultation: clear to auscultation bilaterally, no crackles, no rhonchi and no wheezes Cardio Rate: regular rate Rhythm: regular rhythm Heart sounds: S1 normal heart sound present and S2 normal heart sound present GI Inspection: Yes normal to inspection Neuro General: No confusion Cranial nerves: Yes Equal, round and reactive pupils present and Yes Normal hearing present Cognition (Neuro): normal cognition Gait exam (Neuro): Normal gait present Extrem General: No edema Assessment and Plan Assessment & Plan (1) Seizure disorder: Code(s): G40.909 - Epilepsy, unspecified, not intractable, without status epilepticus Plan: Continue on divalproex and levetracetam. Patient reports he recently had his Dilantin and valproic levels drawn by neurologist and they are currently pending. Follow-up with Neurology on 05/06/2023. (2) Hypothyroidism: Code(s): E03.9 - Hypothyroidism, unspecified Qualifiers: Hypothyroidism type: postoperative Qualified Code(s): E89.0 - Postprocedural hypothyroidism Plan: Continue on levothyroxine 200 mcg daily. Continue to follow with ward secretary TSH elevated 49.31, patient reports he has repeat thyroid labs ordered from endocrinology is due to in a couple weeks. (3) GERD (gastroesophageal reflux disease): Code(s): K21.9 - Gastro-esophageal reflux disease without esophagitis Qualifiers: Esophagitis presence: esophagitis presence not specified Qualified Code(s): K21.9 - Gastro-esophageal reflux disease without esophagitis (4) MEHNAZ on CPAP: Code(s): G47.33 - Obstructive sleep apnea (adult) (pediatric); Z99.89 - Dependence on other enabling machines and devices Plan: Continue on CPAP for greater than 4 hours a night with good effect. Plan Keep scheduled follow up with pcp or follow up sooner if needed. Coding Level of Care Code Est Pt Level 3 (10959) Diagnoses Seizure disorder G40.909 Hypothyroidism E89.0 Hypothyroidism type: postoperative GERD (gastroesophageal reflux disease) K21.9 Esophagitis presence: esophagitis presence not specified MEHNAZ on CPAP G47.33; Z99.89 Additional Codes MOOSE-7 Assessment Billing - MOOSE-7 Assessment Tool: MOOSE-7 Assessment 76153 ([id number])
[2023-04-30 14:44] VITALS: BP 112/76; PULSE 82; O2SAT 96; BMI 28.9
== END 2023-04-30 15:12 | disposition home or self-care (01) ==
PROVIDERS: PCP Physician Assistant; Visit Provider Nurse Practitioner Family
DX: G40.909 Epilepsy, unspecified, not intractable, without status epilepticus (principal); E89.0 Postprocedural hypothyroidism; K21.9 Gastro-esophageal reflux disease without esophagitis; G47.33 Obstructive sleep apnea (adult) (pediatric); Z99.89 Dependence on other enabling machines and devices
CPT/HCPCS: 99213

== ENCOUNTER 2023-05-11 06:09 | Outpatient (REF) | payer OTHER, SELFPAY ==
[2023-05-11 09:31] LABS: Free T4 (Free Thyroxine) 1.87 ng/dL (0.71-1.85); Thyroid Stimulating Hormone 0.07 uIU/mL (0.32-4.0)
[2023-05-16 06:13] LABS: Thyroglobulin Antibody <1 IU/mL (<=1); Thyroglobulin Level 0.2 ng/mL
== END 2023-05-11 06:10 | disposition home or self-care (01) ==
LOC: HO.LAB 06:09
PROVIDERS: Internal Medicine; PCP Physician Assistant; Visit Provider Nurse Practitioner Family
DX: E89.0 Postprocedural hypothyroidism (principal); C73 Malignant neoplasm of thyroid gland
CPT/HCPCS: 36415; 84432; 84439; 84443; 86800

== ENCOUNTER 2023-05-14 11:50 | Outpatient (AMB) | payer OTHER, SELFPAY ==
--- NOTE | 2023-05-14 11:52 | MHC.OFFVIS ---
Intake Vital Signs 05/14/23 11:53 Height 5 ft 5 in Weight 171 lb 15.369 oz BMI 28.6 BP 114/71 Blood Pressure Location Lt brachial Position Sitting Pulse 70 Intake Visit Reasons: 4 week fu Intake Note: Terrance presents in office as a est.patient for a 4week f/u for GERD PT CC: pt reports having GERD, constipation/diarrhea , pt denies any other GI Issues [employer] Software [employer] Required: No Accompanied by: Self / Same As Patient Allergies cat dander [CATS] Allergy (Mild, Verified 05/20/23 06:54) GENERALIZED ALLERGY SYMPTOMS dog dander [DOGS] Allergy (Mild, Verified 05/20/23 06:54) GENERALIZED ALLERGY SYMPTOMS tree and shrub pollen [TREE] Allergy (Mild, Verified 05/20/23 06:54) GENERALIZED ALLERGY SYMPTOMS FROM [place] HPI 4 week fu HPI Details LAST VISIT (1) Gastritis: ?Code(s): K29.70 - Gastritis, unspecified, without bleeding ?Qualifiers: ?Gastritis type:?superficial??Chronicity:?unspecified??Gastritis bleeding:?without bleeding? Qualified Code(s):?K29.30 - Chronic superficial gastritis without bleeding ?Plan: Continue current PPI ill and sucralfate.? Avoid dietary triggers in late night snacking.? Staying upright for minimal 3 hours after meals discussed with him (2) Gastroparesis: ?Code(s): K31.84 - Gastroparesis ?Plan: Diagnosis with mild gastroparesis back in December 2022.? Patient was encouraged again to eat smaller meals and more often.? Gastroparesis diet discussed with patient again. (3) Barretts esophagus: ?Code(s): K22.70 - Ramirez's esophagus without dysplasia ?Qualifiers: ?Ramirez's esophagus type:?without dysplasia? Qualified Code(s):?K22.70 - Ramirez's esophagus without dysplasia ?Plan: Diagnosed with Ramirez's esophagus on upper endoscopy.? Patient is finally able to get his PPI.? Encouraged to take it every morning..? Avoid dietary triggers as mentioned (4) GERD (gastroesophageal reflux disease): ?Code(s): K21.9 - Gastro-esophageal reflux disease without esophagitis ?Qualifiers: ?Esophagitis presence:?esophagitis presence not specified? Qualified Code(s):?K21.9 - Gastro-esophageal reflux disease without esophagitis ?Plan: Continue PPI and sucralfate.? Avoid dietary triggers and late night snacking.? Staying upright for minimal 3 hours of patient.? Patient reports epigastric discomfort and bloating.? Will send his stool to check for pancreatic insufficiency as well as start him on enzymes.? I will also recheck his A1C (5) Constipation: ?Code(s): K59.00 - Constipation, unspecified ?Qualifiers: ?Constipation type:?slow transit constipation? Qualified Code(s):?K59.01 - Slow transit constipation ?Plan: Continue Linzess daily.? Patient was also encouraged to increase fluid intake and activity to promote better bowel the (6) Nausea: ?Code(s): R11.0 - Nausea ?Plan: Will send patient script for Zofran.? Patient does report frequent nausea most likely related to severe gastritis.? Patient was unable to get his PPI for almost 2 months.? Continue PPI treatment with sucralfate.? Avoid dietary triggers.? I will see patient in 4 weeks, sooner on as needed basis.? Patient is agreeable to this plan and verbalizes understanding of instructions.? He was given the opportunity to ask questions and all questions answered TODAY'S VISIT : Patient is here today for follow-up. Patient reports that he is taking PPI every morning and sucralfate twice a day and his symptoms are better. Patient noticed that when he eats anything with tomato sauce like pizza or spaghetti he will have the as symptoms of epigastric discomfort. Denies dyspepsia. States that he will have occasional epigastric discomfort. Patient states that he is moving her bowels little better. His A1c was 6.2%. Patient states that he was in the ER last week for questioning as seizure. Patient states that he had migraine headache and started vomiting then he passed out. Questioning is seizure, however possible that he had vasovagal reaction to severe vomiting. Patient has a neurology appointment today. Patient denies any nausea today. Still has a script for Zofran at home. Patient denies any melena, hematochezia, unintentional weight loss or ribbon like stools. His dose of levothyroxine was decreased. Patient reports that he started taking Creon and is feeling some improvement. [facility] Medical History ABPA (allergic bronchopulmonary aspergillosis) Asthma Diabetes Enlarged liver Gastritis Gastroparesis Migraine headache with aura Multinodular thyroid Myocardial infarct Postoperative hypothyroidism Schatzki's ring Seizures Sleep apnea Thyroid cancer Vitamin D deficiency Surgical History History of cholecystectomy History of esophagogastroduodenoscopy (EGD) S/P removal of thyroid nodule S/P total thyroidectomy Family History Maternal Grandmother Emphysema, unspecified Father Diabetes Mother No problems noted. Paternal Grandfather Liver cancer Social History Household Members: Family Housing: Apartment Are you a primary patient centered care specialist to a significant other at home: No Do you presently have visiting nurse or other home services: No Alcohol intake: former Patient Tobacco Use Status: Never used Tobacco e-Cigarette/Vaping Use: Never Used Second Hand Smoke Exposure: No Substance Use Type: Marijuana Advance Directives Date on File: 05/20/23 service: No Current occupational status: disabled Current occupation: rt handed Cognitive needs: No Hearing needs: No Vision needs: No Review of Systems Const Denies weight gain and Denies weight loss ENT Reports no additional complaints, Denies dysphagia and Denies odynophagia Card Reports no additional complaints Resp Reports no additional complaints GI Denies abdominal pain, Denies belching, Denies melena, Denies bloating, Denies change in bowel habits, Denies dysphagia, Denies excessive flatus, Denies dyspepsia, Denies heartburn, Denies diarrhea, Denies loose stools, Denies nausea, Denies odynophagia and Denies vomiting Reports no additional complaints Musc Reports no additional complaints Neuro Reports no additional complaints Psych Reports no additional complaints Endo Reports no additional complaints Physical Exam Vital Signs: Last Vital Signs Pulse 70 05/14/23 11:53 BP 114/71 05/14/23 11:53 BMI result Body Mass Index 28.6 Const General: healthy appearing, no acute distress and well developed Nutritional Appearance: well nourished Orientation/consciousness: patient oriented x3 HEENT Head: Yes normal to inspection, Yes normocephalic and Yes atraumatic Face and sinus: Yes normal facial exam Mouth: Normal oral and palatal mucosa present Throat: Yes posterior oropharynx normal, Yes tonsils normal and Yes uvula midline Eyes General: appearance normal, both eyes and all related structures Neck Neck: Yes normal visual inspection, Yes full ROM and Yes trachea midline Thyroid: Thyroid normal Resp Effort & Inspection: normal respiratory effort, able to speak in complete sentences, no tracheal deviation and symmetric chest movement Auscultation: clear to auscultation bilaterally Cardio Rate: regular rate Heart sounds: S1 normal heart sound present and S2 normal heart sound present GI Inspection: Yes normal to inspection, No distended and Yes obesity Palpation (GI): Soft to palpation, not firm, nontender and No hepatosplenomegaly present Auscultation: normal bowel sounds General: Yes no CVA tenderness Back/Spine/Pelvis Back: no CVA tenderness Skin General skin exam: elasticity normal, turgor normal and dry skin Neuro General: patient oriented x3 Psych Appearance: grossly normal Mental Status: mental status grossly normal Speech and movement: Normal speech and movement present Assessment & Plan Assessment & Plan (1) Gastritis: Code(s): K29.70 - Gastritis, unspecified, without bleeding Qualifiers: Chronicity: unspecified Gastritis bleeding: without bleeding Gastritis type: superficial Qualified Code(s): K29.30 - Chronic superficial gastritis without bleeding Plan: Diagnosed with gastritis on upper endoscopy and of january. Patient was unable to get any PPI due to his insurance until just about a month ago or so. He has been taking it daily as prescribed. Patient also is taking sucralfate b.i.d.. Patient reports to be feeling little better. Discussed with patient avoiding dietary triggers. Avoid anything with tomato sauce. Avoid carbs as much as possible. (2) Barretts esophagus: Code(s): K22.70 - Ramirez's esophagus without dysplasia Qualifiers: Ramirez's esophagus type: without dysplasia Qualified Code(s): K22.70 - Ramirez's esophagus without dysplasia Plan: Diagnosed with Ramirez's esophagus on upper endoscopy. Continue PPI treatment as mentioned above. Avoid dietary triggers. Avoid laying down for minimal 3 hours after meals. (3) GERD (gastroesophageal reflux disease): Code(s): K21.9 - Gastro-esophageal reflux disease without esophagitis Qualifiers: Esophagitis presence: esophagitis presence not specified Qualified Code(s): K21.9 - Gastro-esophageal reflux disease without esophagitis (4) Constipation: Code(s): K59.00 - Constipation, unspecified Qualifiers: Constipation type: slow transit constipation Qualified Code(s): K59.01 - Slow transit constipation Plan: Continue Linzess. Patient was also encouraged to increase fluid intake and activity to promote better bowel motility. (5) Gastroparesis: Code(s): K31.84 - Gastroparesis Plan: Mild gastroparesis diagnosed on gastric emptying study. Most likely due to slow bowel emptying. Patient is taking Linzess. Continues to occasionally feel like he does not empty completely. He can take Dulcolax tablets in the evening He was encouraged to take small meals and more often. Avoid food that is high in fiber. Drink plenty of fluids. I will see patient in 3 months, sooner on as needed basis. Patient is agreeable to this plan and verbalizes understanding of instructions. He was given the opportunity to ask questions and all questions answered. Thank you for allowing me to participate in his care Medications: New bisacodyl (Dulcolax (bisacodyl)) 10 mg (2 x 5 mg) PO BEDTIME 180 tabs 4RF Discontinued polyethylene glycol 3350 Discontinued Reason: Patient no longer taking 17 grams PO DAILY 100 ea 3RF levothyroxine Discontinued Reason: Doctor's Order 200 mcg PO DAILY 30 days 30 caps 3RF Coding Level of Care Code Est Pt Level 4 (58864) Diagnoses Superficial gastritis without hemorrhage, unspecified chronicity K29.30 Chronicity: unspecified Gastritis bleeding: without bleeding Gastritis type: superficial Ramirez's esophagus without dysplasia K22.70 Ramirez's esophagus type: without dysplasia Gastroesophageal reflux disease, unspecified whether esophagitis present K21.9 Esophagitis presence: esophagitis presence not specified Slow transit constipation K59.01 Constipation type: slow transit constipation Gastroparesis K31.84 Time Spent (min) 40 Comment 25 minutes spent with patient and additional 15 minutes spent reviewing his records
[2023-05-14 11:53] VITALS: BP 114/71; PULSE 70; BMI 28.6
== END 2023-05-14 14:31 | disposition home or self-care (01) ==
PROVIDERS: PCP Physician Assistant; Visit Provider Nurse Practitioner Family
DX: K29.30 Chronic superficial gastritis without bleeding (principal); K22.70 Barrett's esophagus without dysplasia; K21.9 Gastro-esophageal reflux disease without esophagitis; K59.01 Slow transit constipation; K31.84 Gastroparesis
CPT/HCPCS: 99214

== ENCOUNTER → 2023-05-14 11:50 | Outpatient (BNVA) | payer OTHER, SELFPAY | PROVIDERS: PCP Physician Assistant; Visit Provider Nurse Practitioner Family | DX: K21.9 Gastro-esophageal reflux disease without esophagitis (principal); K59.01 Slow transit constipation; K22.70 Barrett's esophagus without dysplasia; K29.30 Chronic superficial gastritis without bleeding; K31.84 Gastroparesis; R11.0 Nausea | CPT/HCPCS: 99212 ==

== ENCOUNTER 2023-05-16 06:24 | Outpatient (REF) | payer OTHER, SELFPAY ==
[2023-05-16 07:38] LABS: Valproate 12.5 mcg/mL (50.0-100.0)
[2023-05-20 18:14] LABS: Levetiracetam Keppra <2.0 mcg/mL (6.0-46.0)
== END 2023-05-16 06:25 | disposition home or self-care (01) ==
LOC: HO.LAB 06:24
PROVIDERS: PCP Physician Assistant; Visit Provider Psychiatry & Neurology Neurology
DX: G40.909 Epilepsy, unspecified, not intractable, without status epilepticus (principal)
CPT/HCPCS: 36415; 80164; 80177

== ENCOUNTER 2023-05-20 06:52 | Inpatient (IN) | payer OTHER, SELFPAY ==
[2023-05-20] VITALS (9 sets, daily range): BP systolic 94–106; BP diastolic 55–77; PULSE 116–131; RESP 16–20; TEMP 36.2–37.1; O2SAT 92–99; BMI 28.0; BMI 29.5
--- NOTE | ~2023-05-20 | CT_ITS ---
EXAMINATION: CT ABDOMEN AND PELVIS WITH CONTRAST CLINICAL INFORMATION: Abdominal pain. Fall. Vomiting blood. COMPARISON: Chest CT from the same day and CT of the abdomen and pelvis March 2022 TECHNIQUE: Multidetector volumetric images were obtained from the superior aspect of the liver through the pubic symphysis following administration 85 mL of Omnipaque 350 intravenous contrast. Sagittal and coronal reformatted images were obtained on the technologist's workstation. Oral contrast: Yes This CT examination was performed using dose optimization techniques as appropriate, variously including the following: *Automated exposure control *Adjustment of mA and/or kV according to patient size (this includes techniques or standardized protocols for targeted exams where dose is matched to indication/reason for exam; i.e. extremities or head) *Use of iterative reconstruction technique DLP: 576 mGy-cm FINDINGS: LUNG BASES: The visualized lung bases are unremarkable. LIVER, GALLBLADDER, AND BILIARY TREE: Low-attenuation liver suggestive of fatty infiltration. Gallbladder is been removed. No biliary duct dilatation or focal liver lesion. PANCREAS: Unremarkable. SPLEEN: Unremarkable. ADRENAL GLANDS: Unremarkable. KIDNEYS AND URETERS: The kidneys are normal in size, shape, and attenuation. No hydronephrosis, hydroureter, or calculi seen. No perinephric stranding. Small bilateral low-attenuation renal lesions probably representing cysts. No imaging follow-up recommended. BLADDER: Unremarkable. GASTROINTESTINAL TRACT: The small and large bowel are unremarkable. The appendix is unremarkable. The stomach is unremarkable. No free air or ascites. ABDOMINAL WALL: No significant hernia is appreciated. LYMPH NODES: Normal. VASCULAR: Unremarkable. PELVIC VISCERA: Unremarkable. OSSEOUS STRUCTURES: Unremarkable. No fracture. CT/CT abdomen pelvis w IV con IMPRESSION: No acute findings. Fatty liver. Fleischner guidelines were followed.
--- NOTE | ~2023-05-20 | CT_ITS ---
EXAMINATION: CT HEAD WITHOUT CONTRAST CLINICAL INFORMATION: Fall head trauma COMPARISON: CT head from 04/15/2023 TECHNIQUE: Contiguous axial imaging was performed from the skull base to vertex without intravenous administration of contrast. This CT examination was performed using dose optimization techniques as appropriate, variously including the following: *Automated exposure control *Adjustment of mA and/or kV according to patient size (this includes techniques or standardized protocols for targeted exams where dose is matched to indication/reason for exam; i.e. extremities or head) *Use of iterative reconstruction technique DLP: 675.28 mGy-cm FINDINGS: There is no evidence of acute intracranial hemorrhage or territorial infarction. No abnormal mass effect or midline shift is seen. Vora to white matter differentiation is well preserved. No extra-axial fluid collections are identified. The ventricles are normal in size. There is no abnormal attenuation within the brain parenchyma. The osseous structures and soft tissues are normal. Left maxillary sinus mucosal retention cyst versus polyp. The mastoid air cells and visualized portions of the paranasal sinuses are well aerated. CT/CT cervical spine wo IV con IMPRESSION: No acute intracranial pathology. EXAMINATION: Noncontrast CT scan of the cervical spine. INDICATION: Fall COMPARISON: CT cervical spine from 08/05/2020 TECHNIQUE: Helical, multidetector axial images were obtained from the occiput to the upper thorax. Coronal and sagittal reformats of the cervical spine were provided for interpretation. DLP: 411.32 mGy-cm FINDINGS: No acute fractures or dislocations of the cervical spine are seen. Mild multilevel degenerative changes Anatomic alignment and positioning of the vertebral bodies and posterior elements is noted. The atlantoaxial joint and craniovertebral articulations are normal without evidence of subluxation. There is no prevertebral soft tissue swelling. Left apical patchy radiopacity, better evaluated on dedicated cross-sectional imaging. Radiopaque surgical material in the region of the thyroid status post thyroidectomy. IMPRESSION: 1. No acute visible fracture or dislocation. 2. Mild multilevel degenerative changes. 3. Left lung apical patchy radiopacity, better evaluated on dedicated contemporaneous cross-sectional imaging.
--- NOTE | ~2023-05-20 | CT_ITS ---
EXAMINATION: CT CHEST WITH CONTRAST CLINICAL INFORMATION: Sternal pain. Fall. COMPARISON: Chest x-ray March 2023 TECHNIQUE: Multidetector volumetric CT imaging of the chest was obtained after the administration of 85 mL of Omnipaque 350 intravenous contrast without immediate adverse reactions. Axial MIP volume rendering provided. Sagittal and coronal reformatted images were obtained. This CT examination was performed using dose optimization techniques as appropriate, variously including the following: *Automated exposure control *Adjustment of mA and/or kV according to patient size (this includes techniques or standardized protocols for targeted exams where dose is matched to indication/reason for exam; i.e. extremities or head) *Use of iterative reconstruction technique DLP: 366 mGy-cm FINDINGS: SQL DBA: Unremarkable LUNGS: Patchy groundglass attenuation and nodular opacities and some increased interstitial markings in the lungs greatest in the left upper and left lower lobes. Mild bilateral central bronchial wall thickening. MEDIASTINUM: The mediastinum is normal. There are small mediastinal and bilateral hilar lymph nodes. No enlarged lymph nodes. PLEURA: There is no pleural effusion. No pleural mass or thickening. No pneumothorax. AXILLA: No lymphadenopathy. Bilateral gynecomastia. UPPER ABDOMEN: See abdominal and pelvic CT report from the same day OSSEOUS STRUCTURES: Unremarkable. No fracture CT/CT chest w IV con IMPRESSION: No fracture. Scattered areas areas of increased groundglass attenuation and nodular opacities and increased interstitial markings in the left lung. Shotty mediastinal and bilateral hilar lymphadenopathy. Mild bilateral central bronchial wall thickening. This probably represents pneumonitis or small pneumonia. Fleischner guidelines were followed.
--- NOTE | 2023-05-20 06:54 | ECG_ITS ---
Test Reason : siezure Blood Pressure : / mmHG Vent. Rate : 123 BPM Atrial Rate : 123 BPM P-R Int : 130 ms QRS Dur : 092 ms QT Int : 324 ms P-R-T Axes : 042 010 058 degrees QTc Int : 463 ms Sinus tachycardia Minimal voltage criteria for LVH, may be normal variant ( R in aVL ) Septal infarct , age undetermined Abnormal ECG When compared with ECG of 15-APR-2023 05:38, Vent. rate has increased BY 61 BPM Septal infarct is now Present Nonspecific T wave abnormality no longer evident in Inferior leads Referred By: Hiral Valencia Electronically Signed By:MARTI SAHU
--- NOTE | 2023-05-20 06:56 | ED_ITS ---
HPI - General Adult General Chief complaint: Seizure Stated complaint: Seizure this morning Time Seen by Provider: 05/20/23 07:03 Source: patient Mode of arrival: ambulatory Limitations: no limitations History of Present Illness HPI narrative: 42-year-old male?past medical history significant for hypothyroidism, thyroid cancer, seizures, asthma, cardiomyopathy? presents to the emergency department for evaluation of an unwitnessed seizure that happened earlier this morning thought to be around 03:30, patient reports that last he remembers was waking up on the ground with loss of bladder and bowel control. He tells me he is on seizure medication and taking them as prescribed, he is both on Depakote and Keppra. Patient reports he must have fallen to the ground because he is experiencing anterior chest discomfort, abdominal pain and bilateral leg pain since patient seized. Patient is followed by Neurology Dr. Powers. Not on thinners. Related Data Home Medications Medication Instructions Recorded Confirmed cyclobenzaprine 10 mg tablet 10 mg PO TID PRN Muscle Spasm 04/14/22 03/15/23 meloxicam 15 mg tablet 15 mg PO DAILY 02/01/23 03/15/23 mepolizumab 100 mg/mL subcutaneous 100 mg subcut Q4W 02/01/23 03/15/23 syringe (Nucala) Previous Rx's Medication Instructions Recorded levetiracetam 1,000 mg tablet 1,500 mg PO BID #60 tabs 10/15/20 tiotropium bromide 2.5 2 puff PO DAILY 30 days #4 grams 04/28/21 mcg/actuation mist for inhalation (Spiriva Respimat) thyrotropin mir 0.9 mg 0.9 mg IM DAILY 2 doses #2 mL 01/19/22 intramuscular solution (Thyrogen) simethicone 80 mg chewable tablet 80 mg PO BID-QID PRN abdominal 04/14/22 (Gas Relief 80 (simethicone)) distention #30 tabs divalproex 500 mg tablet,delayed 1,000 mg PO BID #30 tabs 08/19/22 release carvedilol 3.125 mg tablet 3.125 mg PO BID 90 days #180 tabs 11/08/22 dupilumab 300 mg/2 mL subcutaneous 300 mg (2 mL) subcut Q2W 28 days 11/09/22 pen injector ([employer]) #4 mL cholecalciferol (vitamin D3) 50 50 mcg PO DAILY #90 caps 12/05/22 mcg (2,000 unit) capsule Sharps container #1 ea 12/18/22 aspirin 81 mg tablet,delayed 81 mg PO DAILY 90 days #90 tabs 01/03/23 release sertraline 100 mg tablet 100 mg PO DAILY 90 days #90 tabs 01/03/23 gabapentin 300 mg capsule 300 mg PO BEDTIME pain 30 days #30 02/01/23 caps magnesium glycinate 100 mg tablet 200 mg PO DAILY migraine headaches 02/01/23 30 days #30 tabs linaclotide 290 mcg capsule 290 mcg PO QAM #30 caps 02/05/23 (Linzess) atorvastatin 40 mg tablet 40 mg PO BEDTIME 90 days #90 tabs 03/08/23 lisinopril 10 mg tablet 10 mg PO DAILY 90 days #90 tabs 03/08/23 metformin 500 mg tablet,extended 500 mg PO DAILY 90 days #90 tabs 03/15/23 release 24 hr montelukast 10 mg tablet 10 mg PO BEDTIME 90 days #90 tabs 03/15/23 nystatin 100,000 unit/mL oral 5 ml PO DAILY PRN thrush 30 days 03/15/23 suspension #200 mL rabeprazole 20 mg tablet,delayed 20 mg PO DAILY #90 tabs 03/22/23 release sucralfate 100 mg/mL oral 10 ml PO BID #400 mL 03/22/23 suspension Ventolin HFA 90 mcg/actuation 2 puff PO Q6H PRN for dyspnea #18 04/09/23 aerosol inhaler (albuterol sulfate) grams [id number] 1 cap PO QID #120 caps 04/12/23 24,000-76,000-120,000 unit capsule,delayed rel (Creon) ondansetron 4 mg disintegrating 4 mg PO Q8H PRN nausea and 04/12/23 tablet vomiting #20 tabs theophylline 400 mg 200 mg PO DAILY #15 tabs 04/30/23 tablet,extended release 24 hr riboflavin (vitamin B2) 400 mg 400 mg PO DAILY pain 30 days #30 05/03/23 tablet tabs bisacodyl 5 mg tablet,delayed 10 mg PO BEDTIME #180 tabs 05/14/23 release (Dulcolax (bisacodyl)) levothyroxine 175 mcg tablet 175 mcg PO DAILY 30 days #30 tabs 05/14/23 Allergies Allergy/AdvReac Type Severity Reaction Status Date / Time cat dander [CATS] Allergy Mild GENERALIZED Verified 05/20/23 06:54 ALLERGY SYMPTOMS dog dander [DOGS] Allergy Mild GENERALIZED Verified 05/20/23 06:54 ALLERGY SYMPTOMS tree and shrub pollen [TREE] Allergy Mild GENERALIZED Verified 05/20/23 06:54 ALLERGY SYMPTOMS FROM P[place] TRE[place] Review of Systems Review of Systems: Constitutional : No Weight loss, No Fever, No Chills, No Fatigue, No Malaise ENT/Mouth : No sore throat, No Rhinorrhea Eyes: No Eye Pain, No Swelling, No Redness Cardiovascular : + Chest Pain, + SOB, No Dyspnea on Exertion, No Orthopnea, No Edema, No Palpitations Respiratory : No Cough, No Sputum, No Wheezing Gastrointestinal : + Nausea, + Vomiting, No Diarrhea, No Constipation, + abdominal Pain, No Hematochezia, No Melena Genitourinary : No Dysuria, No Urinary Frequency, No Hematuria, Musculoskeletal : No joint pain, No Myalgias, No Joint Swelling, + leg pain Skin : No Skin Lesions, No rash Neuro : No Weakness, No Numbness, No Dizziness, No Headache Psych : No Anxiety/Panic, No Depression All other systems reviewed and are negative Yes all other systems are reviewed and are negative [facility] Past Medical History Attestation statement: The following information was validated with the patient. Source: old records reviewed and nursing notes reviewed Medical History ABPA (allergic bronchopulmonary aspergillosis) Asthma Diabetes Enlarged liver Gastritis Gastroparesis Migraine headache with aura Multinodular thyroid Myocardial infarct Postoperative hypothyroidism Schatzki's ring Seizures Sleep apnea Thyroid cancer Vitamin D deficiency Surgical History History of cholecystectomy History of esophagogastroduodenoscopy (EGD) S/P removal of thyroid nodule S/P total thyroidectomy Family History Family History Maternal Grandmother Emphysema, unspecified Father Diabetes Mother No problems noted. Paternal Grandfather Liver cancer Social History Social History Housing: Apartment Are you a primary resident care supervisor to a significant other at home: No Do you presently have visiting nurse or other home services: Yes (Formerly [facility] w/ appointments) Alcohol intake: former Patient Tobacco Use Status: Never used Tobacco Smoked in Last 30 Days: No e-Cigarette/Vaping Use: Never Used Second Hand Smoke Exposure: No Substance Use Type: Marijuana Advance Directives: Yes Advance Directives Information Provided: No Advance Directives on File: No service: No Current occupational status: disabled Current occupation: rt handed Cognitive needs: No Hearing needs: No Vision needs: No Physical Exam ED Vital Signs: Vital Signs - 24 hr 05/20/23 06:54 05/20/23 07:25 05/20/23 08:18 Temperature 97.2 F 97.8 F Pulse Rate 121 H 124 H 126 H Respiratory Rate 20 18 18 Blood Pressure 95/65 94/66 Pulse Oximetry 99 94 Oxygen Delivery Method Room Air Room Air 05/20/23 08:52 Temperature 97.6 F Pulse Rate 130 H Respiratory Rate 16 Blood Pressure 95/62 Pulse Oximetry 94 Oxygen Delivery Method Room Air BMI result Body Mass Index 28.0 vss Appearance: Alert.? Oriented X3.? No acute distress.? Head: Normocephalic, atraumatic, no step-offs or deformities Eyes: Pupils equal, round and reactive to light.? CVS: Normal heart rate and rhythm.? Pulses normal.? Respiratory: No respiratory distress.? Mild wheezing throughout the lung wright. TTP to anterior rafael wall Abdomen: Soft and diffusely tender .? Skin: Skin warm and dry.? Normal skin color.? Normal skin turgor.? Extremities: No lower extremity edema.? No calf ttp. 5/5 strength to bilateral upper and lower extremities Neuro: Oriented X 3.? No motor deficit.? No sensory deficit. CN 2-12 intact . No saddle paresthesias. Sensitive exam: No internal or external hemorrhoids noted, normal rectal tone. Course Reevaluation(s) Reevaluation #1: Patient's vomit with a red tinge to it, concerns for upper GI bleed possible gastritis, gastric ulcer possibly Vicky-Bradshaw tear. Will also do a OBS to rule out lower GI bleed. Time: 08:22 Reevaluation #2: CBC with leukocytosis 19.9, with elevated neutrophil count 82.9, I suspect that this is secondary to nausea, vomiting and seizure-like activity likely reactive. Less likely infectious in origin. Chemistry with no acute electrolyte abnormalities requiring intervention. I obtained a lactic acid which was elevated at 4.0 I suspect this is secondary to seizure-like activity. Unlikely from infection. Patient's total creatinine kinase 521 consistent with acute seizure-like activity. Patient's OBS came back positive. Time: 08:30 Reevaluation #3: CT chest with scattered areas of increased ground-glass attenuation in nodular opacities and increased interstitial markings in the left lung concerning for pneumonia, at this time infection suspected blood cultures added as well as ceftriaxone for broad coverage. Patient's pressures soft however receiving fluids and he is responding well. Time: 08:59 Additional Reevaluation(s): At this time patient to be admitted to the hospitalist team. Medications Administered Generic Name Dose Route Start Last Admin Trade Name Freq PRN Reason Stop Dose Admin Oxycodone HCl 5 mg 05/20/23 11:09 05/20/23 11:23 Oxycodone Hcl Immed Release 5 Mg Tablet PO 5 mg Q4H PRN Administration moderate pain Discontinued Medications Generic Name Dose Route Start Last Admin Trade Name Freq PRN Reason Stop Dose Admin Albuterol Sulfate 5 mg 05/20/23 08:06 05/20/23 08:18 Albuterol Sulfate (0.083%) 2.5 Mg/3 Ml Vial.Neb INHALE 05/20/23 08:07 5 mg ONCE ONE Administration Sodium Chloride 1,000 mls @ 999 mls/hr 05/20/23 07:30 05/20/23 08:41 Ns IV 05/20/23 08:30 Infused .Q1H1M FREDY Infusion Sodium Chloride 1,000 mls @ 999 mls/hr 05/20/23 09:00 05/20/23 10:29 Ns IV 05/20/23 10:00 Infused .Q1H1M FREDY Infusion Ceftriaxone Sodium 1 gm/ 50 mls @ 100 mls/hr 05/20/23 08:57 05/20/23 10:29 Sodium Chloride IV 05/20/23 09:26 Infused ONCE ONE Infusion Levetiracetam 1,000 mg in 100 mls @ 400 mls/hr 05/20/23 09:08 05/20/23 09:37 Keppra IV 05/20/23 09:22 Infused ONCE ONE Infusion Iohexol 100 ml 05/20/23 08:15 05/20/23 08:16 Iohexol 350 Mg/Ml 100 Ml Infus..Btl IV 05/20/23 08:16 85 ml ONCE ONE Administration Morphine Sulfate 4 mg 05/20/23 08:16 05/20/23 08:20 Morphine Sulfate 4 Mg/Ml Cartridge IVPUSH 05/20/23 08:17 4 mg ONCE ONE Administration Protocol Ondansetron HCl 4 mg 05/20/23 07:16 05/20/23 07:30 Ondansetron Hcl 4 Mg/2 Ml Vial IVPUSH 05/20/23 07:17 4 mg ONCE ONE Administration Pantoprazole Sodium 40 mg 05/20/23 08:28 05/20/23 08:45 Pantoprazole Sodium 40 Mg/10 Ml Vial IVPUSH 05/20/23 08:29 40 mg ONCE ONE Administration Medical Decision Making Medical Decision Making [facility] Narrative: [id number] 42 year old male presents w/ complaints of seizure this am unwhitenesed pe - anterior chest wall pain on palpaiton , diffuse severe abd discomfort likely epileptic seizure. No signs of status epilepticus, ich, stroke, posterior stroke. Will rule out hyponatremia, electrolye abnormalities and infection although unlikely. Unlikely cauda equina, epidural abscess. Chest discomfort likely musculoskeletal in secondary to fall same with abdominal discomfort. Will rule out upper GI bleed, lower GI bleed. Unlikely atypical presentation of PE or ACS. plan- labs, ekg, lorazapam to raise seizure threshold Differential Diagnosis Differential Diagnoses: The differential diagnosis associated with the presentation includes likely epileptic seizure. No signs of status epilepticus, ich, stroke, posterior stroke. Will rule out hyponatremia, electrolye abnormalities and infection although unlikely. Unlikely cauda equina, epidural abscess. Chest discomfort likely musculoskeletal in secondary to fall same with abdominal discomfort. Will rule out upper GI bleed, lower GI bleed. Unlikely atypical presentation of PE or ACS. Admission/Observation Consideration of admission/observation: Escalation of care including admission/observation considered Likely Lab Data [facility] Lab Attestation statement: I reviewed the patient's lab results. 05/20/23 07:22 05/20/23 07:22 Labs: Lab Results 05/20/23 05/20/23 05/20/23 Range/Units 07:22 07:22 07:22 WBC 19.9 H (4.8-10.8) X10*3/uL RBC 5.06 (4.60-5.80) X10*6/uL Hgb 15.1 (14.0-18.0) g/dl Hct 43.4 (42.0-52.0) % MCV 85.8 (80.0-98.0) fL MCH 29.8 (27.0-33.0) pg MCHC 34.8 (31.0-36.0) g/dl RDW 12.5 (11.0-16.0) % Plt Count 429 H D (160-400) X10*3/uL MPV 9.6 (9.4-12.4) fL Immature Gran % (Auto) 0.8 H (0.0-0.4) % Neut % (Auto) 82.9 H (45-73) % Lymph % (Auto) 7.0 L (20-40) % [place] % (Auto) 9.0 (2-11) % Eos % (Auto) 0.1 (0-4) % Baso % (Auto) 0.2 (0-2) % Lymph # (Auto) 1.4 (1.2-4.9) X10*3/uL [place] # (Auto) 1.8 H (0.1-1.2) X10*3/uL Eos # (Auto) 0.0 (0.0-0.4) X10*3/uL Baso # (Auto) 0.0 (0.0-0.2) X10*3/uL Abs Immat Gran (auto) 0.15 H (0.00-0.03) X10*3/uL Absolute Neuts (auto) 16.5 H (2.0-8.3) x10*3/uL Absolute Nucleated RBC 0.000 (0.0-0.012) X10*3/uL Nucleated RBC % (auto) 0.0 (0.0-0.2) /100WBC Smear Tech's Comments VERIFIED Sodium 138 (135-145) mmol/L Potassium 4.3 (3.3-5.1) mmol/L Chloride 108 (96-108) mmol/L Carbon Dioxide 19 L (22-29) mmol/L Anion Gap 15 (12-20) BUN 13 (9-16) mg/dL Creatinine 1.10 (0.5-1.4) mg/dL Estim Creat Clear Calc 82.5 Estimated GFR > 60 Random Glucose 244 H (60-115) mg/dL Lactic Acid 4.0 H* (0.5-2.0) mmol/L Lactic Acid F/U @ 2Hr (0.5-2.0) mmol/L Calcium 10.7 H D (8.4-10.2) mg/dL Magnesium 2.5 (1.6-2.6) mg/dL Total Bilirubin 0.3 (0.0-1.0) mg/dL AST 36 (5-37) U/L ALT 58 H (0-40) U/L Alkaline Phosphatase 52 (39-117) U/L Total Creatine Kinase 521 H (38-174) U/L Total Protein 7.0 (6.5-8.0) g/dL Albumin 4.4 (3.5-5.0) g/dL Urine Color Urine Appearance Urine pH (5.0-9.0) Ur Specific [place] (1.005-1.025) Urine Protein (Neg-Trace) mg/dL Urine Glucose (UA) (Negative) mg/dL Urine Ketones (Negative) mg/dL Urine Blood (Negative) Urine Nitrite (Negative) Ur Leukocyte Esterase (Negative) Stool Occult Blood (NEGATIVE) Valproic Acid (50.0-100.0) mcg/mL 05/20/23 05/20/23 05/20/23 Range/Units 08:25 08:47 09:25 WBC (4.8-10.8) X10*3/uL RBC (4.60-5.80) X10*6/uL Hgb (14.0-18.0) g/dl Hct (42.0-52.0) % MCV (80.0-98.0) fL MCH (27.0-33.0) pg MCHC (31.0-36.0) g/dl RDW (11.0-16.0) % Plt Count (160-400) X10*3/uL MPV (9.4-12.4) fL Immature Gran % (Auto) (0.0-0.4) % Neut % (Auto) (45-73) % Lymph % (Auto) (20-40) % [place] % (Auto) (2-11) % Eos % (Auto) (0-4) % Baso % (Auto) (0-2) % Lymph # (Auto) (1.2-4.9) X10*3/uL [place] # (Auto) (0.1-1.2) X10*3/uL Eos # (Auto) (0.0-0.4) X10*3/uL Baso # (Auto) (0.0-0.2) X10*3/uL Abs Immat Gran (auto) (0.00-0.03) X10*3/uL Absolute Neuts (auto) (2.0-8.3) x10*3/uL Absolute Nucleated RBC (0.0-0.012) X10*3/uL Nucleated RBC % (auto) (0.0-0.2) /100WBC Smear Tech's Comments Sodium (135-145) mmol/L Potassium (3.3-5.1) mmol/L Chloride (96-108) mmol/L Carbon Dioxide (22-29) mmol/L Anion Gap (12-20) BUN (9-16) mg/dL Creatinine (0.5-1.4) mg/dL Estim Creat Clear Calc Estimated GFR Random Glucose (60-115) mg/dL Lactic Acid (0.5-2.0) mmol/L Lactic Acid F/U @ 2Hr (0.5-2.0) mmol/L Calcium (8.4-10.2) mg/dL Magnesium (1.6-2.6) mg/dL Total Bilirubin (0.0-1.0) mg/dL AST (5-37) U/L ALT (0-40) U/L Alkaline Phosphatase (39-117) U/L Total Creatine Kinase (38-174) U/L Total Protein (6.5-8.0) g/dL Albumin (3.5-5.0) g/dL Urine Color Yellow Urine Appearance Clear Urine pH 6.0 (5.0-9.0) Ur Specific [place] >= 1.030 H (1.005-1.025) Urine Protein Negative (Neg-Trace) mg/dL Urine Glucose (UA) Negative (Negative) mg/dL Urine Ketones Negative (Negative) mg/dL Urine Blood Negative (Negative) Urine Nitrite Negative (Negative) Ur Leukocyte Esterase Negative (Negative) Stool Occult Blood POSITIVE (NEGATIVE) Valproic Acid 31.4 L (50.0-100.0) mcg/mL 05/20/23 Range/Units 09:37 WBC (4.8-10.8) X10*3/uL RBC (4.60-5.80) X10*6/uL Hgb (14.0-18.0) g/dl Hct (42.0-52.0) % MCV (80.0-98.0) fL MCH (27.0-33.0) pg MCHC (31.0-36.0) g/dl RDW (11.0-16.0) % Plt Count (160-400) X10*3/uL MPV (9.4-12.4) fL Immature Gran % (Auto) (0.0-0.4) % Neut % (Auto) (45-73) % Lymph % (Auto) (20-40) % [place] % (Auto) (2-11) % Eos % (Auto) (0-4) % Baso % (Auto) (0-2) % Lymph # (Auto) (1.2-4.9) X10*3/uL [place] # (Auto) (0.1-1.2) X10*3/uL Eos # (Auto) (0.0-0.4) X10*3/uL Baso # (Auto) (0.0-0.2) X10*3/uL Abs Immat Gran (auto) (0.00-0.03) X10*3/uL Absolute Neuts (auto) (2.0-8.3) x10*3/uL Absolute Nucleated RBC (0.0-0.012) X10*3/uL Nucleated RBC % (auto) (0.0-0.2) /100WBC Smear Tech's Comments Sodium (135-145) mmol/L Potassium (3.3-5.1) mmol/L Chloride (96-108) mmol/L Carbon Dioxide (22-29) mmol/L Anion Gap (12-20) BUN (9-16) mg/dL Creatinine (0.5-1.4) mg/dL Estim Creat Clear Calc Estimated GFR Random Glucose (60-115) mg/dL Lactic Acid (0.5-2.0) mmol/L Lactic Acid F/U @ 2Hr 2.5 H* (0.5-2.0) mmol/L Calcium (8.4-10.2) mg/dL Magnesium (1.6-2.6) mg/dL Total Bilirubin (0.0-1.0) mg/dL AST (5-37) U/L ALT (0-40) U/L Alkaline Phosphatase (39-117) U/L Total Creatine Kinase (38-174) U/L Total Protein (6.5-8.0) g/dL Albumin (3.5-5.0) g/dL Urine Color Urine Appearance Urine pH (5.0-9.0) Ur Specific [place] (1.005-1.025) Urine Protein (Neg-Trace) mg/dL Urine Glucose (UA) (Negative) mg/dL Urine Ketones (Negative) mg/dL Urine Blood (Negative) Urine Nitrite (Negative) Ur Leukocyte Esterase (Negative) Stool Occult Blood (NEGATIVE) Valproic Acid (50.0-100.0) mcg/mL Independent Interpretation I performed an independent interpretation of an: EKG Radiology Impression Discussion of test interpretation with radiology: I have reviewed the radiologist's reading. Core Measures AMI core measures followed: Yes Measure exclusions: not indicated Critical Care Time Critical Care Time Critical Care Time: Yes Total Critical Care Time: 35 Attestation: I attest to this time spent taking care of the patient, obtaining history, physi timothy, reviewing labs, imaging, speaking to my attending Discharge Plan Discharge Clinical Impression: Seizures, Headache, Acute upper GI bleeding, Acute lower GI bleeding, Pneumonia, Elevated troponin Patient Disposition: Admitted As Inpatient
[2023-05-20] MEDS: 0.9 % Sodium Chloride 1,000 ML 999 ML IV ×2 (07:26→09:04)
[2023-05-20 07:28] LABS: Basophils Percent Auto 0.2 % (0-2); Eosinophils Percent Auto 0.1 % (0-4); Hematocrit 43.4 % (42.0-52.0); Hemoglobin 15.1 g/dl (14.0-18.0); Imm Gran Abs Auto 0.15 X10*3/uL (0.00-0.03); Imm Gran Pct Auto 0.8 % (0.0-0.4); Lymphocytes Absolute Auto 1.4 X10*3/uL (1.2-4.9); MANUAL DIFF FLAG SCAN; Mean Corpuscular HGB Conc 34.8 g/dl (31.0-36.0); Mean Corpuscular Hemoglobin 29.8 pg (27.0-33.0); Mean Corpuscular Volume 85.8 fL (80.0-98.0); Mean Platelet Volume 9.6 fL (9.4-12.4); Monocytes Absolute Auto 1.8 X10*3/uL (0.1-1.2); Neutrophils Absolute Auto 16.5 x10*3/uL (2.0-8.3); Neutrophils Percent Auto 82.9 % (45-73); Platelet Count 429 X10*3/uL (160-400); Red Blood Count 5.06 X10*6/uL (4.60-5.80); Red Cell Distribution Width 12.5 % (11.0-16.0); SCAN SMEAR FLAG 1; White Blood Count 19.9 X10*3/uL (4.8-10.8)
[2023-05-20] MEDS: ondansetron HCL 4 MG/2 ML VIAL IVPUSH ×2 (07:30→14:24)
--- NOTE | 2023-05-20 07:34 | PC.NURSE ---
alert and oriented, coming from home for unwitnessed seizure. has seizure history and reports being med compliant. iv established, labs drawn and sent. medicated per the NOV.
[2023-05-20 07:43] LABS: Alanine Aminotransferase 58 U/L (0-40); Albumin Level 4.4 g/dL (3.5-5.0); Alkaline Phosphatase 52 U/L (39-117); Anion Gap 15 (12-20); Aspartate Amino Transferase 36 U/L (5-37); Bilirubin Total 0.3 mg/dL (0.0-1.0); Blood Urea Nitrogen 13 mg/dL (9-16); Calcium 10.7 mg/dL (8.4-10.2); Carbon Dioxide 19 mmol/L (22-29); Chloride 108 mmol/L (96-108); Creatinine Clr Calc Pharmacy 82.5; Estimated Glomerular Filt Rate > 60; Glucose Random 244 mg/dL (60-115); Magnesium 2.5 mg/dL (1.6-2.6); Potassium 4.3 mmol/L (3.3-5.1); Sodium 138 mmol/L (135-145)
[2023-05-20 07:48] LABS: SLIDE REVIEW VERIFIED
--- NOTE | 2023-05-20 08:07 | PC.NURSE ---
returned from ct scan, awaiting results
[2023-05-20] MEDS: iohexoL 350 MG/ML 100 ML INFUS..BTL IV (08:16)
[2023-05-20] MEDS: Albuterol Sulfate (0.083%) 2.5 MG/3 ML VIAL.NEB 5 MG INHALE (08:18)
[2023-05-20] MEDS: Morphine Sulfate 4 MG/ML CARTRIDGE IVPUSH (08:20)
[2023-05-20 08:30] LABS: OBS1 POSITIVE (NEGATIVE)
[2023-05-20 08:31] LABS: OBS Int Ctl Valid YES
[2023-05-20] MEDS: Pantoprazole Sodium 40 MG/10 ML VIAL IVPUSH ×2 (08:45→16:22)
[2023-05-20 09:06] LABS: Valproate 31.4 mcg/mL (50.0-100.0)
--- NOTE | 2023-05-20 09:10 | PC.NURSE ---
second liter of normal saline infusing, first set of blood cultures obtained and sent down. pt reports improvement in his pain from 10 to 5.
[2023-05-20] MEDS: levETIRAcetam in NaCl (iso-os) 1,000 MG/100 ML PIGGYBACK 400 MG IV (09:22)
[2023-05-20 09:24] LABS: Reflex Lactate? Lactic Acid Added
[2023-05-20 09:36] LABS: Appearance Urine Clear; Color Urine Yellow; Glucose Urine UA Negative (Negative); Leukocyte Esterase Urine Negative (Negative); Nitrite Urine Negative (Negative); Specific Gravity - Urine >= 1.030 (1.005-1.025); Urine Blood Negative (Negative); Urine Ketones Negative (Negative); Urine Protein Negative (Neg-Trace)
[2023-05-20] MEDS: cefTRIAXone sodium 1 GM in 0.9 % Sodium Chloride 50 ML IV (09:37)
[2023-05-20 09:59] LABS: ~Lactic Acid-LAB USE ONLY 2.5 mmol/L (0.5-2.0)
--- NOTE | 2023-05-20 10:45 | PM.IMHP ---
History of Present Illness Date of Service: 05/20/23 Chief Complaint: seizure 42M PMH epilepsy, barretts esophogus, severe persistent asthma, takatsubo cardiomyopathy, papillary thyroid cancer s/p thyroidectomy, mood disorder, presented with seizure. patient reports no seizure for several months, then had one about 1 week ptp. then on day of presentation 3am found himself on floor, incontinent. he is compliant with AEDs. patient then had vomitting with some hematemesis. also noted left sided chest pressure. Review of Systems Review of Systems: Yes all other systems are reviewed and are negative [facility] Medical History ABPA (allergic bronchopulmonary aspergillosis) Asthma Diabetes Enlarged liver Gastritis Gastroparesis Migraine headache with aura Multinodular thyroid Myocardial infarct Postoperative hypothyroidism Schatzki's ring Seizures Sleep apnea Thyroid cancer Vitamin D deficiency Family History Maternal Grandmother Emphysema, unspecified Father Diabetes Mother No problems noted. Paternal Grandfather Liver cancer Surgical History History of cholecystectomy History of esophagogastroduodenoscopy (EGD) S/P removal of thyroid nodule S/P total thyroidectomy Social History Housing: Apartment Are you a primary healthcare applications analyst to a significant other at home: No Do you presently have visiting nurse or other home services: Yes ([facility] w/ appointments) Alcohol intake: former Patient Tobacco Use Status: Never used Tobacco Smoked in Last 30 Days: No e-Cigarette/Vaping Use: Never Used Second Hand Smoke Exposure: No Substance Use Type: Marijuana Advance Directives: Yes Advance Directives Information Provided: No Advance Directives on File: No service: No Current occupational status: disabled Current occupation: rt handed Cognitive needs: No Hearing needs: No Vision needs: No Meds Allergies Allergy/AdvReac Type Severity Reaction Status Date / Time cat dander [CATS] Allergy Mild GENERALIZED Verified 05/20/23 06:54 ALLERGY SYMPTOMS dog dander [DOGS] Allergy Mild GENERALIZED Verified 05/20/23 06:54 ALLERGY SYMPTOMS tree and shrub pollen [TREE] Allergy Mild GENERALIZED Verified 05/20/23 06:54 ALLERGY SYMPTOMS FROM [place] Active Medications: Current Medications Pantoprazole Sodium (Pantoprazole Sodium 40 Mg/10 Ml Vial) 40 mg IVPUSH BID@0630,1630 [facility] Sodium Chloride (0.9 % Sodium Chloride Flush 3 Ml Syringe) 3 ml IVFLUSH QSHIFT [facility] Home Medications Medication Instructions Recorded Confirmed Last Taken Type cyclobenzaprine 10 mg tablet 10 mg PO TID PRN Muscle Spasm 04/14/22 03/15/23 Unknown History meloxicam 15 mg tablet 15 mg PO DAILY 02/01/23 03/15/23 Unknown History mepolizumab 100 mg/mL subcutaneous 100 mg subcut Q4W 02/01/23 03/15/23 Unknown History syringe (Nucala) Physical Exam Vital Signs and Narrative: Vital Signs: Last Vital Signs Temp 97.6 F 05/20/23 08:52 Pulse 130 H 05/20/23 08:52 Resp 16 05/20/23 08:52 BP 95/62 05/20/23 08:52 Pulse Ox 94 05/20/23 08:52 O2 Del Method Room Air 05/20/23 08:52 BMI result Body Mass Index 28.0 General: AO X 3, no acute distress Resp: CTA bilateral, no accessory muscles used CVS: S1,S2,RRR GI: soft, non tender, non distended Neuro: motor grossly intact, alert Psych: appropriate affect, appropriate insight Results Labs 05/20/23 07:22 05/20/23 07:22 Labs: Laboratory Results - last 24 hr 05/20/23 05/20/23 05/20/23 07:22 07:22 07:22 MCV 85.8 MCH 29.8 MCHC 34.8 RDW 12.5 Plt Count 429 H D MPV 9.6 Immature Gran % (Auto) 0.8 H Neut % (Auto) 82.9 H Lymph % (Auto) 7.0 L [place] % (Auto) 9.0 Eos % (Auto) 0.1 Baso % (Auto) 0.2 Lymph # (Auto) 1.4 [place] # (Auto) 1.8 H Eos # (Auto) 0.0 Baso # (Auto) 0.0 Abs Immat Gran (auto) 0.15 H Absolute Neuts (auto) 16.5 H Absolute Nucleated RBC 0.000 Nucleated RBC % (auto) 0.0 Smear Tech's Comments VERIFIED Anion Gap 15 Estim Creat Clear Calc 82.5 Estimated GFR > 60 Random Glucose 244 H Lactic Acid 4.0 H* Lactic Acid F/U @ 2Hr Calcium 10.7 H D Magnesium 2.5 Total Bilirubin 0.3 AST 36 ALT 58 H Alkaline Phosphatase 52 Total Creatine Kinase 521 H Total Protein 7.0 Albumin 4.4 Urine Color Urine Appearance Urine pH Ur Specific [place] Urine Protein Urine Glucose (UA) Urine Ketones Urine Blood Urine Nitrite Ur Leukocyte Esterase Stool Occult Blood Valproic Acid 05/20/23 05/20/23 05/20/23 08:25 08:47 09:25 MCV MCH MCHC RDW Plt Count MPV Immature Gran % (Auto) Neut % (Auto) Lymph % (Auto) [place] % (Auto) Eos % (Auto) Baso % (Auto) Lymph # (Auto) [place] # (Auto) Eos # (Auto) Baso # (Auto) Abs Immat Gran (auto) Absolute Neuts (auto) Absolute Nucleated RBC Nucleated RBC % (auto) Smear Tech's Comments Anion Gap Estim Creat Clear Calc Estimated GFR Random Glucose Lactic Acid Lactic Acid F/U @ 2Hr Calcium Magnesium Total Bilirubin AST ALT Alkaline Phosphatase Total Creatine Kinase Total Protein Albumin Urine Color Yellow Urine Appearance Clear Urine pH 6.0 Ur Specific [place] >= 1.030 H Urine Protein Negative Urine Glucose (UA) Negative Urine Ketones Negative Urine Blood Negative Urine Nitrite Negative Ur Leukocyte Esterase Negative Stool Occult Blood POSITIVE Valproic Acid 31.4 L 05/20/23 09:37 MCV MCH MCHC RDW Plt Count MPV Immature Gran % (Auto) Neut % (Auto) Lymph % (Auto) [place] % (Auto) Eos % (Auto) Baso % (Auto) Lymph # (Auto) [place] # (Auto) Eos # (Auto) Baso # (Auto) Abs Immat Gran (auto) Absolute Neuts (auto) Absolute Nucleated RBC Nucleated RBC % (auto) Smear Tech's Comments Anion Gap Estim Creat Clear Calc Estimated GFR Random Glucose Lactic Acid Lactic Acid F/U @ 2Hr 2.5 H* Calcium Magnesium Total Bilirubin AST ALT Alkaline Phosphatase Total Creatine Kinase Total Protein Albumin Urine Color Urine Appearance Urine pH Ur Specific [place] Urine Protein Urine Glucose (UA) Urine Ketones Urine Blood Urine Nitrite Ur Leukocyte Esterase Stool Occult Blood Valproic Acid Imaging Radiologist's Impressions: Impressions Abdomen/Pelvis CT 05/20/23 08:23 IMPRESSION: No acute findings. Fatty liver. Fleischner guidelines were followed. Cervical Spine CT 05/20/23 08:23 IMPRESSION: No acute intracranial pathology. EXAMINATION: Noncontrast CT scan of the cervical spine. INDICATION: Fall COMPARISON: CT cervical spine from 08/05/2020 TECHNIQUE: Helical, multidetector axial images were obtained from the occiput to the upper thorax. Coronal and sagittal reformats of the cervical spine were provided for interpretation. DLP: 411.32 mGy-cm FINDINGS: No acute fractures or dislocations of the cervical spine are seen. Mild multilevel degenerative changes Anatomic alignment and positioning of the vertebral bodies and posterior elements is noted. The atlantoaxial joint and craniovertebral articulations are normal without evidence of subluxation. There is no prevertebral soft tissue swelling. Left apical patchy radiopacity, better evaluated on dedicated cross-sectional imaging. Radiopaque surgical material in the region of the thyroid status post thyroidectomy. IMPRESSION: 1. No acute visible fracture or dislocation. 2. Mild multilevel degenerative changes. 3. Left lung apical patchy radiopacity, better evaluated on dedicated contemporaneous cross-sectional imaging. Chest CT 05/20/23 08:23 IMPRESSION: No fracture. Scattered areas areas of increased groundglass attenuation and nodular opacities and increased interstitial markings in the left lung. Shotty mediastinal and bilateral hilar lymphadenopathy. Mild bilateral central bronchial wall thickening. This probably represents pneumonitis or small pneumonia. Fleischner guidelines were followed. Head CT 05/20/23 08:23 IMPRESSION: No acute intracranial pathology. EXAMINATION: Noncontrast CT scan of the cervical spine. INDICATION: Fall COMPARISON: CT cervical spine from 08/05/2020 TECHNIQUE: Helical, multidetector axial images were obtained from the occiput to the upper thorax. Coronal and sagittal reformats of the cervical spine were provided for interpretation. DLP: 411.32 mGy-cm FINDINGS: No acute fractures or dislocations of the cervical spine are seen. Mild multilevel degenerative changes Anatomic alignment and positioning of the vertebral bodies and posterior elements is noted. The atlantoaxial joint and craniovertebral articulations are normal without evidence of subluxation. There is no prevertebral soft tissue swelling. Left apical patchy radiopacity, better evaluated on dedicated cross-sectional imaging. Radiopaque surgical material in the region of the thyroid status post thyroidectomy. IMPRESSION: 1. No acute visible fracture or dislocation. 2. Mild multilevel degenerative changes. 3. Left lung apical patchy radiopacity, better evaluated on dedicated contemporaneous cross-sectional imaging. Assessment and Plan (1) Schatzki's ring: Status: Acute Plan 42M PMH epilepsy, barretts esophogus, severe persistent asthma, takatsubo cardiomyopathy, papillary thyroid cancer s/p thyroidectomy, mood disorder, presented with seizure. had hematemesis, chest pain. breakthrough seizure in epilepsy continue kewanda garcíate neuro eval chest pain with history of takatsubo cardiomyopathy check trop ekg unremarkable hematemesis likely due to retching, iv ppi, gi eval, monitor h and h severe persistent asthma continue inhalers stable history of papillary thryoid cancer s/p thyroid ectomy synthroid dvt prophylaxis - mechanical due to hematemesis full code patient with seizures and hematemesis, at risk for further decompensation due to history of takatsubo, severe persistent asthma, therefore, expected to require atleast 2 midnights inpatient Time Spent With Patient Time: Total time managing care of this patient today ____ minutes. Quality Stroke Does the patient have a stroke diagnosis?: No VTE Prior VTE?: No VTE Risk Level:: Medical - moderate - high VTE Device Contraindication: N/A - Device Ordered VTE Drug Contraindication: Treatment Not Tolerated
[2023-05-20] MEDS: oxyCODONE HCl Immed Release 5 MG TABLET PO ×2 (11:23→18:03)
--- NOTE | 2023-05-20 11:34 | PC.NURSE ---
medicated per the MAR for pain
[2023-05-20 11:44] LABS: Reflex Lactate? 2 Y
--- NOTE | 2023-05-20 12:54 | PHA.MEDREC ---
Pharmacy Consult ? Medication Reconciliation Pharmacy has completed the medication reconciliation. spoke with patient to confirm medications. He did confuse some of the doses but was able to verify through office visit notes, claim history, and with [facility]. He was confused between keppra and depakote dosing, but was able to recognize that he takes the arcos one (depakote) 3 tabs in the AM and 2 in the PM and that he takes the white one (keppra) 2 tabs BID. He also confused Linzess and Levothyroxine. According to [facility] and his previous office visit (05/14), he was decreased to 175mcg for the levothyroxine but has not picked it up yet, so he currently has the 200mcg tabs at home. He told me 145mcg however his most previous fill was for 290 mcg, which was last picked up for a 30 DS on 03/08/23. Office notes also agree with this.
--- NOTE | 2023-05-20 14:11 | PM.CNCAR ---
History of Present Illness History of Present Illness Date of Service: 05/20/23 Requesting physician: Tanvir Dumont Chief complaint: Seizure, elevated troponin Narrative: 42-year-old gentleman with known history of seizures, asthma and history of takotsubo cardiomyopathy diagnosed in 2018 presenting with asthma and pneumonia. He was not feeling well for few days and had seizure today. He also had some chills. His imaging has shown evidence for pneumonia which is the likely reason and his seizure happened. Will also noticed to have elevated troponin levels. Was complaining of sharp pleuritic chest pain. He has been tachycardic but also received some nebulizer for asthma. He is wheezing. Echocardiogram was performed by myself at bedside and he has mid variant takotsubo cardiomyopathy again. EF with is moderately reduced 30 35%. [facility] Past Medical History Medical History ABPA (allergic bronchopulmonary aspergillosis) Asthma Diabetes Enlarged liver Gastritis Gastroparesis Migraine headache with aura Multinodular thyroid Myocardial infarct Postoperative hypothyroidism Schatzki's ring Seizures Sleep apnea Thyroid cancer Vitamin D deficiency Family History Family History Maternal Grandmother Emphysema, unspecified Father Diabetes Mother No problems noted. Paternal Grandfather Liver cancer Surgical History Surgical History History of cholecystectomy History of esophagogastroduodenoscopy (EGD) S/P removal of thyroid nodule S/P total thyroidectomy Social History Social History Housing: Apartment Are you a primary foster care social worker to a significant other at home: No Do you presently have visiting nurse or other home services: Yes ([facility] w/ appointments) Alcohol intake: former Patient Tobacco Use Status: Never used Tobacco e-Cigarette/Vaping Use: Never Used Second Hand Smoke Exposure: No Substance Use Type: Marijuana service: No Current occupational status: disabled Current occupation: rt handed Cognitive needs: No Hearing needs: No Vision needs: No Meds Allergies Allergy/AdvReac Type Severity Reaction Status Date / Time cat dander [CATS] Allergy Mild GENERALIZED Verified 05/20/23 06:54 ALLERGY SYMPTOMS dog dander [DOGS] Allergy Mild GENERALIZED Verified 05/20/23 06:54 ALLERGY SYMPTOMS tree and shrub pollen [TREE] Allergy Mild GENERALIZED Verified 05/20/23 06:54 ALLERGY SYMPTOMS FROM [place] Active Medications: Current Medications Albuterol/Ipratropium (Albuterol/Iprat 2.5/0.5mg 3 Ml Ampul.Neb) 3 ml INHALE RQ4H WHILE AWAKE PRN PRN Reason: sob Lipase/Protease/Amylase (Lipase/Prot/Amylase 24/76/120k 1 Cap Capsule.) 1 cap PO QID [facility] Aspirin (Aspirin Enteric Coated 81 Mg Tablet.) 81 mg PO DAILY [facility] Atorvastatin Calcium (Atorvastatin Calcium 40 Mg Tablet) 40 mg PO BEDTIME [facility] Carvedilol (Carvedilol 3.125 Mg Tablet) 3.125 mg PO BID [facility]; Protocol Divalproex Sodium (Divalproex Sodium 500 Mg Tablet.) 1,500 mg PO DAILY [facility] Divalproex Sodium (Divalproex Sodium 500 Mg Tablet.) 1,000 mg PO BEDTIME [facility] Levetiracetam (Levetiracetam 1,000 Mg Tablet) 1,000 mg PO BID [facility] Levothyroxine Sodium (Levothyroxine Sodium 175 Mcg Tablet) 175 mcg PO DAILY@0600 [facility] Lisinopril (Lisinopril 10 Mg Tablet) 10 mg PO DAILY [facility]; Protocol Metformin HCl (Metformin Hcl Er 500 Mg Tab.Er.24h) 500 mg PO DAILY [facility] Montelukast Sodium (Montelukast Sodium 10 Mg Tablet) 10 mg PO BEDTIME [facility] Morphine Sulfate (Morphine Sulfate 2 Mg/Ml Cartridge) 2 mg IVPUSH Q2H PRN; Protocol PRN Reason: moderate pain Non-Formulary Medication (Linaclotide [Linzess]) 290 mcg PO QAM [facility] Oxycodone HCl (Oxycodone Hcl Immed Release 5 Mg Tablet) 5 mg PO Q4H PRN PRN Reason: moderate pain Last Admin: 05/20/23 11:23 Dose: 5 mg Pantoprazole Sodium (Pantoprazole Sodium 40 Mg/10 Ml Vial) 40 mg IVPUSH BID@0630,1630 [facility] Sertraline HCl (Sertraline Hcl 100 Mg Tablet) 100 mg PO DAILY [facility] Sodium Chloride (0.9 % Sodium Chloride Flush 3 Ml Syringe) 3 ml IVFLUSH QSHIFT [facility] Sucralfate (Sucralfate Oral Suspension 1 Gm/10 Ml Oral.Susp) 1 gm PO BID [facility] Theophylline (Theophylline Anhydrous Er 400 Mg Tab.Er.24h) 200 mg PO DAILY [facility] Vitamin D (Cholecalciferol (Vitamin D3) 25 Mcg Tablet) 50 mcg PO DAILY [facility] Home Medications Medication Instructions Recorded Confirmed Last Taken Type divalproex 500 mg tablet,delayed 1,000 mg PO QPM 05/20/23 05/20/23 Unknown History release divalproex 500 mg tablet,delayed 1,500 mg PO QAM 05/20/23 05/20/23 Unknown History release gabapentin 300 mg capsule 300 mg PO BEDTIME PRN Pain 05/20/23 05/20/23 Unknown History levetiracetam 1,000 mg tablet 1,000 mg PO BID 05/20/23 05/20/23 Unknown History tiotropium bromide 2.5 2 puff PO DAILY PRN Shortness Of 05/20/23 05/20/23 Unknown History mcg/actuation mist for inhalation Breath (Spiriva Respimat) Physical Exam Vital Signs: Vital Signs: Last Vital Signs Temp 97.6 F 05/20/23 08:52 Pulse 131 H 05/20/23 11:24 Resp 20 05/20/23 11:24 BP 106/77 05/20/23 11:24 Pulse Ox 93 05/20/23 11:24 O2 Del Method Room Air 05/20/23 11:24 BMI result Body Mass Index 28.0 GENERAL APPEARANCE: in no acute distress, pleasant. NECK: no carotid bruit, no jugular venous distention. SKIN: no suspicious lesions, warm and dry. HEART: no murmurs, regular rate and rhythm. Tachycardic. LUNGS: Bilateral expiratory wheezes. ABDOMEN: soft, nontender. EXTREMITIES: no edema. PERIPHERAL PULSES: equal. NEUROLOGIC: No gross deficits, AAO X 3 Objective Labs and Meds 05/20/23 07:22 05/20/23 07:22 Lab results: Laboratory Results - last 24 hr 05/20/23 05/20/23 05/20/23 07:22 07:22 07:22 WBC 19.9 H RBC 5.06 Hgb 15.1 Hct 43.4 MCV 85.8 MCH 29.8 MCHC 34.8 RDW 12.5 Plt Count 429 H D MPV 9.6 Immature Gran % (Auto) 0.8 H Neut % (Auto) 82.9 H Lymph % (Auto) 7.0 L [place] % (Auto) 9.0 Eos % (Auto) 0.1 Baso % (Auto) 0.2 Lymph # (Auto) 1.4 [place] # (Auto) 1.8 H Eos # (Auto) 0.0 Baso # (Auto) 0.0 Abs Immat Gran (auto) 0.15 H Absolute Neuts (auto) 16.5 H Absolute Nucleated RBC 0.000 Nucleated RBC % (auto) 0.0 Smear Tech's Comments VERIFIED Sodium 138 Potassium 4.3 Chloride 108 Carbon Dioxide 19 L Anion Gap 15 BUN 13 Creatinine 1.10 Estim Creat Clear Calc 82.5 Estimated GFR > 60 Random Glucose 244 H Lactic Acid 4.0 H* Lactic Acid F/U @ 2Hr Calcium 10.7 H D Magnesium 2.5 Total Bilirubin 0.3 AST 36 ALT 58 H Alkaline Phosphatase 52 Total Creatine Kinase 521 H Troponin I High Sens Total Protein 7.0 Albumin 4.4 Urine Color Urine Appearance Urine pH Ur Specific [place] Urine Protein Urine Glucose (UA) Urine Ketones Urine Blood Urine Nitrite Ur Leukocyte Esterase Stool Occult Blood Valproic Acid 05/20/23 05/20/23 05/20/23 08:25 08:47 09:25 WBC RBC Hgb Hct MCV MCH MCHC RDW Plt Count MPV Immature Gran % (Auto) Neut % (Auto) Lymph % (Auto) [place] % (Auto) Eos % (Auto) Baso % (Auto) Lymph # (Auto) [place] # (Auto) Eos # (Auto) Baso # (Auto) Abs Immat Gran (auto) Absolute Neuts (auto) Absolute Nucleated RBC Nucleated RBC % (auto) Smear Tech's Comments Sodium Potassium Chloride Carbon Dioxide Anion Gap BUN Creatinine Estim Creat Clear Calc Estimated GFR Random Glucose Lactic Acid Lactic Acid F/U @ 2Hr Calcium Magnesium Total Bilirubin AST ALT Alkaline Phosphatase Total Creatine Kinase Troponin I High Sens Total Protein Albumin Urine Color Yellow Urine Appearance Clear Urine pH 6.0 Ur Specific [place] >= 1.030 H Urine Protein Negative Urine Glucose (UA) Negative Urine Ketones Negative Urine Blood Negative Urine Nitrite Negative Ur Leukocyte Esterase Negative Stool Occult Blood POSITIVE Valproic Acid 31.4 L 05/20/23 05/20/23 09:37 10:35 WBC RBC Hgb Hct MCV MCH MCHC RDW Plt Count MPV Immature Gran % (Auto) Neut % (Auto) Lymph % (Auto) [place] % (Auto) Eos % (Auto) Baso % (Auto) Lymph # (Auto) [place] # (Auto) Eos # (Auto) Baso # (Auto) Abs Immat Gran (auto) Absolute Neuts (auto) Absolute Nucleated RBC Nucleated RBC % (auto) Smear Tech's Comments Sodium Potassium Chloride Carbon Dioxide Anion Gap BUN Creatinine Estim Creat Clear Calc Estimated GFR Random Glucose Lactic Acid Lactic Acid F/U @ 2Hr 2.5 H* Calcium Magnesium Total Bilirubin AST ALT Alkaline Phosphatase Total Creatine Kinase Troponin I High Sens 2560.9 H* D Total Protein Albumin Urine Color Urine Appearance Urine pH Ur Specific [place] Urine Protein Urine Glucose (UA) Urine Ketones Urine Blood Urine Nitrite Ur Leukocyte Esterase Stool Occult Blood Valproic Acid Imaging Radiologist's impression: Impressions Abdomen/Pelvis CT 05/20/23 08:23 IMPRESSION: No acute findings. Fatty liver. Fleischner guidelines were followed. Cervical Spine CT 05/20/23 08:23 IMPRESSION: No acute intracranial pathology. EXAMINATION: Noncontrast CT scan of the cervical spine. INDICATION: Fall COMPARISON: CT cervical spine from 08/05/2020 TECHNIQUE: Helical, multidetector axial images were obtained from the occiput to the upper thorax. Coronal and sagittal reformats of the cervical spine were provided for interpretation. DLP: 411.32 mGy-cm FINDINGS: No acute fractures or dislocations of the cervical spine are seen. Mild multilevel degenerative changes Anatomic alignment and positioning of the vertebral bodies and posterior elements is noted. The atlantoaxial joint and craniovertebral articulations are normal without evidence of subluxation. There is no prevertebral soft tissue swelling. Left apical patchy radiopacity, better evaluated on dedicated cross-sectional imaging. Radiopaque surgical material in the region of the thyroid status post thyroidectomy. IMPRESSION: 1. No acute visible fracture or dislocation. 2. Mild multilevel degenerative changes. 3. Left lung apical patchy radiopacity, better evaluated on dedicated contemporaneous cross-sectional imaging. Chest CT 05/20/23 08:23 IMPRESSION: No fracture. Scattered areas areas of increased groundglass attenuation and nodular opacities and increased interstitial markings in the left lung. Shotty mediastinal and bilateral hilar lymphadenopathy. Mild bilateral central bronchial wall thickening. This probably represents pneumonitis or small pneumonia. Fleischner guidelines were followed. Head CT 05/20/23 08:23 IMPRESSION: No acute intracranial pathology. EXAMINATION: Noncontrast CT scan of the cervical spine. INDICATION: Fall COMPARISON: CT cervical spine from 08/05/2020 TECHNIQUE: Helical, multidetector axial images were obtained from the occiput to the upper thorax. Coronal and sagittal reformats of the cervical spine were provided for interpretation. DLP: 411.32 mGy-cm FINDINGS: No acute fractures or dislocations of the cervical spine are seen. Mild multilevel degenerative changes Anatomic alignment and positioning of the vertebral bodies and posterior elements is noted. The atlantoaxial joint and craniovertebral articulations are normal without evidence of subluxation. There is no prevertebral soft tissue swelling. Left apical patchy radiopacity, better evaluated on dedicated cross-sectional imaging. Radiopaque surgical material in the region of the thyroid status post thyroidectomy. IMPRESSION: 1. No acute visible fracture or dislocation. 2. Mild multilevel degenerative changes. 3. Left lung apical patchy radiopacity, better evaluated on dedicated contemporaneous cross-sectional imaging. Assessment and Plan (1) Elevated troponin: Status: Acute (2) Takotsubo cardiomyopathy: Status: Acute Plan 42-year-old gentleman with known history of takotsubo cardiomyopathy presenting with seizure in the setting of pneumonia. He has elevated troponin levels. She is complaining of sharp pleuritic chest pain which is likely due to pneumonia. Echocardiography is showing reduced ejection fraction with mid ventricular takotsubo cardiomyopathy. He previously had similar pattern of takotsubo cardiomyopathy in 2018. No need for starting him on heparin drip. Treat the pneumonia and continue antiseizure therapy. Avoid beta-michael, Cardizem and verapamil. Thank you for allowing me to participate in the care of your patient. Please feel free to contact me if you have any questions. Time Spent With Patient Time: Total time managing care of this patient today ____ minutes. Procedures Date of Service Date of Service: 05/20/23
[2023-05-20] MEDS: Albuterol/Iprat 2.5/0.5MG 3 ML AMPUL.NEB INHALE (14:13)
[2023-05-20] MEDS: Divalproex Sodium 500 MG TABLET.DR 1500 MG PO (14:13)
[2023-05-20] MEDS: Morphine Sulfate 2 MG/ML CARTRIDGE IVPUSH ×2 (14:14→18:04)
[2023-05-20 14:37] LABS: ~Lactic Acid-LAB USE ONLY 2.8 mmol/L (0.5-2.0)
--- NOTE | 2023-05-20 14:42 | MHC.EVENTN ---
pt came up to med tele floor. vital taken. HR high 120s. Trop was 2560 increase 4673.1, repeat lactic at 2.5. pt c.o left chest pain 8/10 especially when pressing down, sob (O2 96% RA), nausea. MD notified. Duoneb, morphine and zofran given. MD aware of elevated trop and latic.
[2023-05-20] MEDS: Lipase/Prot/Amylase 24/76/120K 1 CAP CAPSULE.DR PO ×2 (16:21→20:18)
[2023-05-20] MEDS: 0.9 % Sodium Chloride Flush 3 ML SYRINGE IVFLUSH ×2 (16:24→20:19)
[2023-05-20] MEDS: Montelukast Sodium 10 MG TABLET PO (20:17)
[2023-05-20] MEDS: Sucralfate Oral Suspension 1 GM/10 ML ORAL.SUSP PO (20:17)
[2023-05-20] MEDS: carvediloL 3.125 MG TABLET PO (20:18)
[2023-05-20] MEDS: Divalproex Sodium 500 MG TABLET.DR 1000 MG PO (20:18)
[2023-05-20] MEDS: Atorvastatin Calcium 40 MG TABLET PO (20:18)
[2023-05-20] MEDS: levETIRAcetam 1,000 MG TABLET 1000 MG PO (20:18)
[2023-05-20] MEDS: Acetaminophen 325 MG TABLET 650 MG PO (20:40)
[2023-05-20 21:47] LABS: Influenza A PCR NEGATIVE (Negative); Influenza B PCR NEGATIVE (Negative); Resp Syncy Virus RNA Qual PCR NEGATIVE (Negative); SARS COV2 PCR INHOUSE NEGATIVE (Negative)
[2023-05-21] VITALS (7 sets, daily range): BP systolic 100–128; BP diastolic 57–68; PULSE 95–116; RESP 18–22; TEMP 36.2–37.1; O2SAT 92–95
[2023-05-21] MEDS: Albuterol/Iprat 2.5/0.5MG 3 ML AMPUL.NEB INHALE (04:13)
[2023-05-21] MEDS: Levothyroxine Sodium 175 MCG TABLET PO (05:56)
[2023-05-21] MEDS: Acetaminophen 325 MG TABLET 650 MG PO ×2 (05:56→21:07)
[2023-05-21] MEDS: Pantoprazole Sodium 40 MG/10 ML VIAL IVPUSH (05:57)
[2023-05-21] MEDS: Morphine Sulfate 2 MG/ML CARTRIDGE IVPUSH (06:03)
[2023-05-21 07:06] LABS: Hematocrit 35.2 % (42.0-52.0); Mean Corpuscular HGB Conc 34.1 g/dl (31.0-36.0); Mean Corpuscular Hemoglobin 30.2 pg (27.0-33.0); Mean Corpuscular Volume 88.4 fL (80.0-98.0); Mean Platelet Volume 9.9 fL (9.4-12.4); Platelet Count 247 X10*3/uL (160-400); Red Blood Count 3.98 X10*6/uL (4.60-5.80); Red Cell Distribution Width 12.7 % (11.0-16.0)
[2023-05-21 07:44] LABS: Troponin-I High Sensitivity 2653.8 ng/L (<3.5-35.0)
[2023-05-21 07:45] LABS: Anion Gap 12 (12-20); Blood Urea Nitrogen 9 mg/dL (9-16); Calcium 8.6 mg/dL (8.4-10.2); Carbon Dioxide 21 mmol/L (22-29); Chloride 110 mmol/L (96-108); Creatinine Clr Calc Pharmacy 124.1; Estimated Glomerular Filt Rate > 60; Glucose Fasting 143 mg/dL (60-99); Magnesium 1.7 mg/dL (1.6-2.6); Potassium 4.2 mmol/L (3.3-5.1); Sodium 139 mmol/L (135-145)
[2023-05-21] MEDS: carvediloL 3.125 MG TABLET PO ×2 (08:20→21:07)
[2023-05-21] MEDS: metFORMIN HCl ER 500 MG TAB.ER.24H PO (08:20)
[2023-05-21] MEDS: Divalproex Sodium 500 MG TABLET.DR 1500 MG PO (08:21)
[2023-05-21] MEDS: levETIRAcetam 1,000 MG TABLET 1000 MG PO ×2 (08:21→21:07)
[2023-05-21] MEDS: Cholecalciferol (Vitamin D3) 25 MCG TABLET 50 MCG PO (08:21)
[2023-05-21] MEDS: Theophylline Anhydrous ER 400 MG TAB.ER.24H 200 MG PO (08:21)
[2023-05-21] MEDS: oxyCODONE HCl Immed Release 5 MG TABLET PO (08:22)
[2023-05-21] MEDS: Sertraline HCL 100 MG TABLET PO (08:22)
[2023-05-21] MEDS: Aspirin Enteric Coated 81 MG TABLET.DR PO (08:22)
[2023-05-21] MEDS: 0.9 % Sodium Chloride Flush 3 ML SYRINGE IVFLUSH ×3 (08:22→21:08)
[2023-05-21] MEDS: Lipase/Prot/Amylase 24/76/120K 1 CAP CAPSULE.DR PO ×3 (08:22→21:07)
[2023-05-21] MEDS: lisinopriL 10 MG TABLET PO (08:22)
[2023-05-21] MEDS: Sucralfate Oral Suspension 1 GM/10 ML ORAL.SUSP PO ×2 (08:25→21:07)
--- NOTE | 2023-05-21 09:40 | HO.PM.IMPN ---
Subjective Subjective Date of Service: 05/21/23 Interval History: nausea Physical Exam Vital Signs: Vital Signs: Last Vital Signs Temp 98.7 F 05/21/23 07:42 Pulse 100 05/21/23 07:42 Resp 20 05/21/23 07:42 BP 103/64 05/21/23 07:42 Pulse Ox 95 05/21/23 07:42 O2 Del Method Room Air 05/21/23 07:42 O2 Flow Rate 1 05/21/23 03:41 BMI result Body Mass Index 29.5 GENERAL APPEARANCE: in no acute distress, pleasant. NECK: no carotid bruit, no jugular venous distention. SKIN: no suspicious lesions, warm and dry. HEART: no murmurs, regular rate and rhythm. Tachycardic. LUNGS: Bilateral expiratory wheezes. ABDOMEN: soft, nontender. EXTREMITIES: no edema. PERIPHERAL PULSES: equal. NEUROLOGIC: No gross deficits, AAO X 3 Objective Data Active Medications Acetaminophen (Acetaminophen 325 Mg Tablet) 650 mg PO Q4H PRN PRN Reason: Pain, Mild (Pain Scale 1-3) Last Admin: 05/21/23 05:56 Dose: 650 mg Documented By: ALYX Albuterol/Ipratropium (Albuterol/Iprat 2.5/0.5mg 3 Ml Ampul.Neb) 3 ml INHALE RQ4H WHILE AWAKE PRN PRN Reason: sob Last Admin: 05/21/23 04:13 Dose: 3 ml Documented By: KIKE Lipase/Protease/Amylase (Lipase/Prot/Amylase 24/76/120k 1 Cap Capsule.) 1 cap PO QID [facility] Last Admin: 05/21/23 08:22 Dose: 1 cap Documented By: ALEX Aspirin (Aspirin Enteric Coated 81 Mg Tablet.) 81 mg PO DAILY [facility] Last Admin: 05/21/23 08:22 Dose: 81 mg Documented By: ALEX Atorvastatin Calcium (Atorvastatin Calcium 40 Mg Tablet) 40 mg PO BEDTIME [facility] Last Admin: 05/20/23 20:18 Dose: 40 mg Documented By: ALYX Carvedilol (Carvedilol 3.125 Mg Tablet) 3.125 mg PO BID [facility]; Protocol Last Admin: 05/21/23 08:20 Dose: 3.125 mg Documented By: ALEX Divalproex Sodium (Divalproex Sodium 500 Mg Tablet.) 1,500 mg PO DAILY [facility] Last Admin: 05/21/23 08:21 Dose: 1,500 mg Documented By: ALEX Divalproex Sodium (Divalproex Sodium 500 Mg Tablet.) 1,000 mg PO BEDTIME [facility] Last Admin: 05/20/23 20:18 Dose: 1,000 mg Documented By: ALYX Levetiracetam (Levetiracetam 1,000 Mg Tablet) 1,000 mg PO BID [facility] Last Admin: 05/21/23 08:21 Dose: 1,000 mg Documented By: ALEX Levothyroxine Sodium (Levothyroxine Sodium 175 Mcg Tablet) 175 mcg PO DAILY@0600 [facility] Last Admin: 05/21/23 05:56 Dose: 175 mcg Documented By: ALYX Lisinopril (Lisinopril 10 Mg Tablet) 10 mg PO DAILY [facility]; Protocol Last Admin: 05/21/23 08:22 Dose: 10 mg Documented By: ALEX Metformin HCl (Metformin Hcl Er 500 Mg Tab.Er.24h) 500 mg PO DAILY [facility] Last Admin: 05/21/23 08:20 Dose: 500 mg Documented By: ALEX Montelukast Sodium (Montelukast Sodium 10 Mg Tablet) 10 mg PO BEDTIME [facility] Last Admin: 05/20/23 20:17 Dose: 10 mg Documented By: ALYX Morphine Sulfate (Morphine Sulfate 2 Mg/Ml Cartridge) 2 mg IVPUSH Q2H PRN; Protocol PRN Reason: moderate pain Last Admin: 05/21/23 06:03 Dose: 2 mg Documented By: ALYX Pat Own Medication ( Linaclotide [Linzess ] 290 Mcg Capsule) 290 mcg PO DAILY [facility] Last Admin: 05/21/23 08:22 Dose: 290 mcg Documented By: ALEX Ondansetron HCl (Ondansetron Hcl 4 Mg/2 Ml Vial) 4 mg IVPUSH Q6H PRN PRN Reason: Nausea Last Admin: 05/20/23 14:24 Dose: 4 mg Documented By: NEETA Oxycodone HCl (Oxycodone Hcl Immed Release 5 Mg Tablet) 5 mg PO Q4H PRN PRN Reason: moderate pain Last Admin: 05/21/23 08:22 Dose: 5 mg Documented By: ALEX Pantoprazole Sodium (Pantoprazole Sodium 40 Mg/10 Ml Vial) 40 mg IVPUSH BID@0630,1630 [facility] Last Admin: 05/21/23 05:57 Dose: 40 mg Documented By: ALYX Sertraline HCl (Sertraline Hcl 100 Mg Tablet) 100 mg PO DAILY [facility] Last Admin: 05/21/23 08:22 Dose: 100 mg Documented By: ALEX Sodium Chloride (0.9 % Sodium Chloride Flush 3 Ml Syringe) 3 ml IVFLUSH QSHIFT [facility] Last Admin: 05/21/23 08:22 Dose: 3 ml Documented By: ALEX Sucralfate (Sucralfate Oral Suspension 1 Gm/10 Ml Oral.Susp) 1 gm PO BID [facility] Last Admin: 05/21/23 08:25 Dose: 1 gm Documented By: ALEX Theophylline (Theophylline Anhydrous Er 400 Mg Tab.Er.24h) 200 mg PO DAILY [facility] Last Admin: 05/21/23 08:21 Dose: 200 mg Documented By: ALEX Vitamin D (Cholecalciferol (Vitamin D3) 25 Mcg Tablet) 50 mcg PO DAILY [facility] Last Admin: 05/21/23 08:21 Dose: 50 mcg Documented By: ALEX Labs 05/21/23 06:41 05/21/23 06:41 Labs: Laboratory Results - last 24 hr 05/20/23 05/20/23 05/20/23 09:37 13:26 20:43 MCV MCH MCHC RDW Plt Count MPV Absolute Nucleated RBC Nucleated RBC % (auto) Anion Gap Estim Creat Clear Calc Estimated GFR Fasting Glucose Lactic Acid F/U @ 2Hr 2.5 H* Lactic Acid F/U @ 4Hr 2.8 H* Calcium Magnesium Influenza Type A (PCR) NEGATIVE Influenza Type B (PCR) NEGATIVE RSV RNA Qual (PCR) NEGATIVE SARS-CoV-2 RNA (RT-PCR) NEGATIVE 05/21/23 05/21/23 06:41 06:41 MCV 88.4 MCH 30.2 MCHC 34.1 RDW 12.7 Plt Count 247 D MPV 9.9 Absolute Nucleated RBC 0.000 Nucleated RBC % (auto) 0.0 Anion Gap 12 Estim Creat Clear Calc 124.1 Estimated GFR > 60 Fasting Glucose 143 H Lactic Acid F/U @ 2Hr Lactic Acid F/U @ 4Hr Calcium 8.6 D Magnesium 1.7 Influenza Type A (PCR) Influenza Type B (PCR) RSV RNA Qual (PCR) SARS-CoV-2 RNA (RT-PCR) Assessment and Plan (1) Takotsubo cardiomyopathy: Status: Acute Plan 42M PMH epilepsy, barretts esophogus, severe persistent asthma, takatsubo cardiomyopathy, papillary thyroid cancer s/p thyroidectomy, mood disorder, presented with seizure. had hematemesis, chest pain. breakthrough seizure in epilepsy continue keppra, depakote neuro eval chest pain with history of takatsubo cardiomyopathy nstemi with peak trop 4673 ekg unremarkable cardio appreciated - no heparin, no beta michael, check echo hematemesis likely due to retching, iv ppi, gi eval, monitor h and h severe persistent asthma continue inhalers stable transient acute hypoxic resp failure due to aspiration pneumonitis now on room air, hold off on abx for now history of papillary thryoid cancer s/p thyroid ectomy synthroid dvt prophylaxis - mechanical due to hematemesis full code reason for continued hospitalization: awaiting echo, neuro eval Time Spent With Patient Time: Total time managing care of this patient today ____ minutes. Quality Stroke Does the patient have a stroke diagnosis?: No VTE Prior VTE?: No VTE Risk Level:: Medical - moderate - high VTE Device Contraindication: N/A - Device Ordered VTE Drug Contraindication: Treatment Not Tolerated
[2023-05-21] MEDS: ondansetron HCL 4 MG/2 ML VIAL IVPUSH ×2 (10:00→22:41)
[2023-05-21] MEDS: LORazepam 2 MG/ML VIAL IVPUSH ×2 (10:12→22:41)
--- NOTE | 2023-05-21 10:15 | PC.NURSE ---
? Seizure Patient stated he felt the aura of a seizure along with nausea and hiccuping. PRN zofran administered at this time, but nothing was ordered for seizure activity and provider was notified about the change in the patient status. 2mg IV ativan ordered and administered. At this time patient appears to be in and out of consciousness occasionally staring at the wall with minimal response but quickly becomes responsive and does not appear postictal during assessment. Able to follow commands and remains AAOx3.
--- NOTE | 2023-05-21 11:53 | CONS_ITS ---
DATE OF SERVICE: 05/21/2023 REFERRING PHYSICIAN: Tanvir Dumont MD REASON FOR CONSULTATION: Hematemesis and history of Ramirez esophagus. HISTORY OF PRESENT ILLNESS: The patient is a pleasant 42-year-old man, who was admitted to the hospital after presenting to the Emergency Department on May 20 with a seizure. In the Emergency Department, he had vomiting with a red tinge, which was concerning for upper GI bleeding or possible gastritis. Stool occult blood testing was obtained, which was positive. There has been no reported melena and no recurrent hematemesis. The patient does have a history of Ramirez esophagus and underwent upper endoscopy in January of this year showing a Schatzki ring and small sliding hiatal hernia and changes consistent with short-segment Ramirez's, but no associated erosive esophagitis or ulcer. He has been treated with a proton pump inhibitor and states he has been compliant with this. He denies tobacco and alcohol use. Laboratory studies have shown a hematocrit of 43.4 on admission, unchanged from March. This did decrease to 35.2 today with IV hydration and there has been no reported melena. He has been treated with intravenous pantoprazole. PAST MEDICAL HISTORY: 1. Seizure disorder. 2. Ramirez esophagus. 3. MEHNAZ/CPAP. 4. Takotsubo cardiomyopathy. 5. Depression. 6. Asthma. 7. Thyroid cancer status post thyroidectomy. 8. Diabetes mellitus. CURRENT MEDICATIONS: Current medication list is reviewed in the chart. ALLERGIES: THERE ARE NO REPORTED DRUG ALLERGIES. FAMILY HISTORY: This is reported negative for upper GI malignancy. SOCIAL HISTORY: There is no current tobacco, alcohol, or substance abuse. REVIEW OF SYSTEMS: SKIN: No pruritus. HEENT: Negative. CARDIOPULMONARY: No shortness of breath or chest pain. GASTROINTESTINAL: As above. GENITOURINARY: Negative. NEUROPSYCHIATRIC: Negative. PHYSICAL EXAMINATION: GENERAL: Shows a pleasant male, who is quite sleepy. VITAL SIGNS: Reviewed in the electronic medical record and are stable. SKIN: Anicteric. HEENT: Shows no scleral icterus. NECK: Without lymphadenopathy or thyromegaly. LUNGS: Clear. HEART: Shows a regular rate and rhythm. S1, S2. No murmur. ABDOMEN: Soft without focal masses or tenderness. There is some mild tenderness in both lateral aspects of the abdomen diffusely. Bowel sounds are present. No organomegaly is noted. EXTREMITIES: Without edema. LABORATORY DATA: Reviewed. CT scanning of the abdomen and pelvis is also reviewed, which was obtained on admission. No acute findings were noted and fatty liver was identified. IMPRESSION: Hematemesis. He appears to have had a self-limited episode of hematemesis with no continued bleeding. This could represent a Vicky-Bradshaw tear. He also reports having bitten his cheek and lips during the seizure and had some bleeding and some of the hematemesis could represent blood. Since he has been compliant with his antacid regimen and had endoscopy as recently as January of this year, I would recommend simply monitoring him and continuing a proton pump inhibitor. This can be switched to orally and his diet can be advanced as tolerated. Thank you for asking me to see him. I will follow him in the hospital with you. MD CESAR Morton/NOEMI / [phone]
--- NOTE | 2023-05-21 12:58 | MHC.CM.PN ---
PT REPORTS HE LIVES WITH HIS MOTHER AND IS INDEPENDENT WITH CARE HE DENIES USE OF DME OR HOME/COMMUNITY SERVICES PT REPORTS HE HAS A HCP NAMING HIS FATHER HIS AGENT, COPY REQUESTED PCP: NOHEMI THORNE DCP: HOME NO SERVICES VIA FAMILY TRANSPORT
--- NOTE | 2023-05-21 13:00 | CA_ITS ---
Transthoracic Echocardiogram Patient (Last, First, Middle): Terrance Carranza R Gender: Male Date of : 1980 Age: 42 Procedure Date: 05/21/2023 Procedure Type: Transthoracic [place] [facility] [place]: 165.1 cm Weight: 80.29 kg BSA: 1.88 m2 Heart Rate: bpm BP: 106 / 68 mmHg Energy Operations Vice President: Referring MD: Tanvir Dumont MD Symptoms: nstemi Study Quality: Fair ECG Rhythm: Sinus Conclusions: - Normal left ventricular cavity size. There is mildly increased left ventricular wall thickness. The left ventricular systolic function is moderately decreased. The visually estimated ejection fraction is between 30-35%. - The mid anterior, mid inferior, mid anterolateral, mid inferoseptal, mid anteroseptal, and mid inferolateral segments are akinetic. - Mid LV Takotsubo. Findings Procedure Information Contrast agent, definity, is being given per protocol without apparent complications. Left Ventricle Normal left ventricular cavity size. There is mildly increased left ventricular wall thickness. The left ventricular systolic function is moderately decreased. The visually estimated ejection fraction is between 30 35%. There is evidence of regional wall motion abnormalities. Diastolic function is indeterminate on the basis of available data. Wall Motion Rest Echo Findings The mid anterior, mid inferior, mid anterolateral, mid inferoseptal, mid anteroseptal, and mid inferolateral segments are akinetic. Right Ventricle Normal right ventricular cavity size and systolic function. Atria The left atrium is normal in size. Aortic Valve Normal aortic valve structure and function. There is no aortic valve stenosis. There is no aortic valve regurgitation. Mitral Valve Normal mitral valve structure and function. There is no mitral valve regurgitation. There is no mitral valve stenosis. Pulmonic Valve The pulmonic valve is likely normal. Tricuspid Valve Normal tricuspid valve structure. There is trace tricuspid valve regurgitation. The right ventricular systolic pressure is 35 mmHg. Normal right atrial pressure. Mild pulmonary hypertension is present. Great Vessels All visible segments of the aorta are normal in size. Venous The inferior vena cava is normal in size and collapses greater than 50% with inspiration. Pericardium/Pleural There is no evidence of pericardial effusion. Prior Study Comparison Changes noted compared to prior study dated: 09/09/2018. EF 30-35% Measurements 2D Linear Measurements IVSd: 1.13 0.6-0.9/0.6-1.0 cm LVIDd: 4.75 3.9-5.3/4.2-5.9 cm LVIDd Index: 2.53 2.4-3.2/2.2-3.1 cm/m2 LVIDs: 3.81 2.0-3.6 cm LVPWd: 1.09 0.7-1.1 cm Ao Root: 3.20 2.1-3.5 cm LA Diam: 3.00 2.7-3.8/3.0-4.0 cm LAIDs Index: 1.60 1.5-2.3 cm/m2 LV Mass: 240.69 67-162/88-224 g LV Mass Index: 128.03 43-95/49-115 g/m2 LVOT Diam: 2.10 3.0+(-)1.3 cm 2D Systolic Function EF 4C: 34.90 >55% EF 2C: 33.30 >55% EF BiP: 33.50 >55% Mitral Valve MV Pk E: 0.76 MV PK A: 0.49 MV Decel Time: 203.00 E/A: 1.50 E'Lateral: 10.30 E'Medial: 5.77 E/E' Med: 13.20 E/E' Lat: 7.40 PHT: 60.00 MVA PHT: 3.67 Decel [place]: 3.84 Aortic Valve AoV Pk Omar: 1.02 AoV Mn Omar: 0.86 AoV VTI: 0.18 AoV Pk Grad: 4.00 Aov Mn Grad: 3.00 MARCO Cont.VTI: 2.67 LVOT LVOT Pk Omar: 0.84 LVOT Mn Omar: 0.60 LVOT VTI: 0.14 LVOT Pk Grad: 3.00 LVOT Mn Grad: 2.00 LVOT Diam: 2.10 LVOT Area: 3.46 Diastolic Function MV Pk E: 0.76 MV Pk A: 0.49 E/A: 1.50 E'Medial: 5.77 E/E' Med: 13.20 E' Laterial: 10.30 E/E' Lat: 7.40 Right Ventricle TAPSE (mm): 15.00 TVS' Omar: 12.00 Tricuspid Valve TR Pk Omar: 2.84 TR Pk Grad: 32.00 RA Press: 3.00 RVSP: 35.00 Great Vessels Aorta Ao Root-2D: 3.20 2.0-3.7 cm Ao Asc: 2.80 2.1-3.4 cm Pulmonary Valve PV Pk Omar: 0.98 Peak PV Grad: 4.00 Updated in Other Vendor System with Status of Final Serge Marroquin MD electronically signed on 05/21/2023 7:32:41 PM with status of Final
[2023-05-21] MEDS: Montelukast Sodium 10 MG TABLET PO (21:07)
[2023-05-21] MEDS: Divalproex Sodium 500 MG TABLET.DR 1000 MG PO (21:07)
[2023-05-21] MEDS: Atorvastatin Calcium 40 MG TABLET PO (21:08)
[2023-05-22] VITALS (7 sets, daily range): BP systolic 97–115; BP diastolic 57–68; PULSE 80–90; RESP 14–24; TEMP 36.1–36.7; O2SAT 93–99
--- NOTE | 2023-05-22 04:31 | PC.NURSE ---
Addendum entered by Kelton Olea RN 05/22/23 06:44: 05:45 patient c/o developing aura sensation...requested/received prn ativan to avoid potential seizure activity...stated improvement in symptoms..no seizure activity...remained alert...swallowed am meds 20 minutes later..restful Original Note: care assumed 23:15...per shift report patient previously experienced pre-seizure aura and received ativan 2mg iv @ 22:41..drowsy at hs but oriented...denied further aura...awake..alert..oriented x3 at 4am...almaraz..repositions self ad-rowena...denied further aura sensation...denied pain or sob...nsr hr 90's...respirations easy...sao2 91-93% on room air
[2023-05-22] MEDS: LORazepam 2 MG/ML VIAL IVPUSH (05:57)
[2023-05-22 05:58] LABS: Hematocrit 34.1 % (42.0-52.0); Hemoglobin 11.6 g/dl (14.0-18.0); Mean Corpuscular Hemoglobin 29.9 pg (27.0-33.0); Mean Corpuscular Volume 87.9 fL (80.0-98.0); Mean Platelet Volume 9.8 fL (9.4-12.4); Platelet Count 250 X10*3/uL (160-400); Red Blood Count 3.88 X10*6/uL (4.60-5.80); Red Cell Distribution Width 12.3 % (11.0-16.0); White Blood Count 7.6 X10*3/uL (4.8-10.8)
[2023-05-22 06:13] LABS: Anion Gap 12 (12-20); Blood Urea Nitrogen 9 mg/dL (9-16); Calcium 8.8 mg/dL (8.4-10.2); Carbon Dioxide 23 mmol/L (22-29); Chloride 111 mmol/L (96-108); Creatinine Clr Calc Pharmacy 120.9; Estimated Glomerular Filt Rate > 60; Glucose Fasting 104 mg/dL (60-99); Sodium 142 mmol/L (135-145)
[2023-05-22] MEDS: Levothyroxine Sodium 175 MCG TABLET PO (06:20)
[2023-05-22] MEDS: Omeprazole 40 MG CAPSULE.DR PO (06:20)
[2023-05-22] MEDS: Sucralfate Oral Suspension 1 GM/10 ML ORAL.SUSP PO ×2 (08:35→19:36)
[2023-05-22] MEDS: lisinopriL 10 MG TABLET PO (08:36)
[2023-05-22] MEDS: Cholecalciferol (Vitamin D3) 25 MCG TABLET 50 MCG PO (08:36)
[2023-05-22] MEDS: Lipase/Prot/Amylase 24/76/120K 1 CAP CAPSULE.DR PO ×4 (08:36→21:13)
[2023-05-22] MEDS: Theophylline Anhydrous ER 400 MG TAB.ER.24H 200 MG PO (08:36)
[2023-05-22] MEDS: carvediloL 3.125 MG TABLET PO ×2 (08:36→21:14)
[2023-05-22] MEDS: Aspirin Enteric Coated 81 MG TABLET.DR PO (08:36)
[2023-05-22] MEDS: metFORMIN HCl ER 500 MG TAB.ER.24H PO (08:36)
[2023-05-22] MEDS: Sertraline HCL 100 MG TABLET PO (08:36)
[2023-05-22] MEDS: levETIRAcetam 1,000 MG TABLET 1000 MG PO ×2 (08:37→21:14)
[2023-05-22] MEDS: 0.9 % Sodium Chloride Flush 3 ML SYRINGE IVFLUSH ×3 (08:39→21:24)
[2023-05-22] MEDS: Divalproex Sodium 500 MG TABLET.DR 1500 MG PO (08:39)
--- NOTE | 2023-05-22 09:25 | HO.PM.IMPN ---
Subjective Subjective Date of Service: 05/22/23 Interval History: nausea, seizure yesterday Physical Exam Vital Signs: Vital Signs: Last Vital Signs Temp 97.1 F 05/22/23 07:13 Pulse 88 05/22/23 07:13 Resp 15 05/22/23 07:13 BP 103/59 L 05/22/23 07:13 Pulse Ox 99 05/22/23 07:13 O2 Del Method Nasal Cannula 05/22/23 07:13 O2 Flow Rate 3 05/22/23 07:13 BMI result Body Mass Index 29.5 GENERAL APPEARANCE: in no acute distress, pleasant. NECK: no carotid bruit, no jugular venous distention. SKIN: no suspicious lesions, warm and dry. HEART: no murmurs, regular rate and rhythm. Tachycardic. LUNGS: Bilateral expiratory wheezes. ABDOMEN: soft, nontender. EXTREMITIES: no edema. PERIPHERAL PULSES: equal. NEUROLOGIC: No gross deficits, AAO X 3 Objective Data Active Medications Acetaminophen (Acetaminophen 325 Mg Tablet) 650 mg PO Q4H PRN PRN Reason: Pain, Mild (Pain Scale 1-3) Last Admin: 05/21/23 21:07 Dose: 650 mg Documented By: ALYX Albuterol/Ipratropium (Albuterol/Iprat 2.5/0.5mg 3 Ml Ampul.Neb) 3 ml INHALE RQ4H WHILE AWAKE PRN PRN Reason: sob Last Admin: 05/21/23 04:13 Dose: 3 ml Documented By: KIKE Lipase/Protease/Amylase (Lipase/Prot/Amylase 24/76/120k 1 Cap Capsule.) 1 cap PO QID [facility] Last Admin: 05/22/23 08:36 Dose: 1 cap Documented By: JUAN Aspirin (Aspirin Enteric Coated 81 Mg Tablet.) 81 mg PO DAILY [facility] Last Admin: 05/22/23 08:36 Dose: 81 mg Documented By: JUAN Atorvastatin Calcium (Atorvastatin Calcium 40 Mg Tablet) 40 mg PO BEDTIME [facility] Last Admin: 05/21/23 21:08 Dose: 40 mg Documented By: ALYX Carvedilol (Carvedilol 3.125 Mg Tablet) 3.125 mg PO BID [facility]; Protocol Last Admin: 05/22/23 08:36 Dose: 3.125 mg Documented By: JUAN Divalproex Sodium (Divalproex Sodium 500 Mg Tablet.) 1,500 mg PO DAILY [facility] Last Admin: 05/22/23 08:39 Dose: 1,500 mg Documented By: JUAN Divalproex Sodium (Divalproex Sodium 500 Mg Tablet.) 1,000 mg PO BEDTIME [facility] Last Admin: 05/21/23 21:07 Dose: 1,000 mg Documented By: ALYX Levetiracetam (Levetiracetam 1,000 Mg Tablet) 1,000 mg PO BID [facility] Last Admin: 05/22/23 08:37 Dose: 1,000 mg Documented By: JUAN Levothyroxine Sodium (Levothyroxine Sodium 175 Mcg Tablet) 175 mcg PO DAILY@0600 [facility] Last Admin: 05/22/23 06:20 Dose: 175 mcg Documented By: LOBO Lisinopril (Lisinopril 10 Mg Tablet) 10 mg PO DAILY [facility]; Protocol Last Admin: 05/22/23 08:36 Dose: 10 mg Documented By: JUAN Metformin HCl (Metformin Hcl Er 500 Mg Tab.Er.24h) 500 mg PO DAILY [facility] Last Admin: 05/22/23 08:36 Dose: 500 mg Documented By: JUAN Montelukast Sodium (Montelukast Sodium 10 Mg Tablet) 10 mg PO BEDTIME [facility] Last Admin: 05/21/23 21:07 Dose: 10 mg Documented By: ALYX Morphine Sulfate (Morphine Sulfate 2 Mg/Ml Cartridge) 2 mg IVPUSH Q2H PRN; Protocol PRN Reason: moderate pain Last Admin: 05/21/23 06:03 Dose: 2 mg Documented By: ALYX Pat Own Medication ( Linaclotide [Linzess ] 290 Mcg Capsule) 290 mcg PO DAILY [facility] Last Admin: 05/22/23 08:35 Dose: 290 mcg Documented By: JUAN Omeprazole (Omeprazole 40 Mg Capsule.) 40 mg PO DAILY@0630 [facility] Last Admin: 05/22/23 06:20 Dose: 40 mg Documented By: LOBO Ondansetron HCl (Ondansetron Hcl 4 Mg/2 Ml Vial) 4 mg IVPUSH Q6H PRN PRN Reason: Nausea Last Admin: 05/21/23 22:41 Dose: 4 mg Documented By: SHAY Oxycodone HCl (Oxycodone Hcl Immed Release 5 Mg Tablet) 5 mg PO Q4H PRN PRN Reason: moderate pain Last Admin: 05/21/23 08:22 Dose: 5 mg Documented By: ALEX Sertraline HCl (Sertraline Hcl 100 Mg Tablet) 100 mg PO DAILY [facility] Last Admin: 05/22/23 08:36 Dose: 100 mg Documented By: JUAN Sodium Chloride (0.9 % Sodium Chloride Flush 3 Ml Syringe) 3 ml IVFLUSH QSHIFT [facility] Last Admin: 05/22/23 08:39 Dose: 3 ml Documented By: JUAN Sucralfate (Sucralfate Oral Suspension 1 Gm/10 Ml Oral.Susp) 1 gm PO BID [facility] Last Admin: 05/22/23 08:35 Dose: 1 gm Documented By: JUAN Theophylline (Theophylline Anhydrous Er 400 Mg Tab.Er.24h) 200 mg PO DAILY [facility] Last Admin: 05/22/23 08:36 Dose: 200 mg Documented By: JUAN Vitamin D (Cholecalciferol (Vitamin D3) 25 Mcg Tablet) 50 mcg PO DAILY [facility] Last Admin: 05/22/23 08:36 Dose: 50 mcg Documented By: JUAN Labs 05/22/23 05:42 05/22/23 05:42 Labs: Laboratory Results - last 24 hr 05/22/23 05/22/23 05:42 05:42 MCV 87.9 MCH 29.9 MCHC 34.0 RDW 12.3 Plt Count 250 MPV 9.8 Absolute Nucleated RBC 0.000 Nucleated RBC % (auto) 0.0 Anion Gap 12 Estim Creat Clear Calc 120.9 Estimated GFR > 60 Fasting Glucose 104 H Calcium 8.8 Microbiology Microbiology Results: Microbiology 05/20/23 09:17 Blood Culture - Preliminary Blood - Venous No growth after 24 hours. 05/20/23 08:59 Blood Culture - Preliminary Blood - Venous No growth after 24 hours. Assessment and Plan (1) Takotsubo cardiomyopathy: Status: Acute Plan 42M PMH epilepsy, barretts esophogus, severe persistent asthma, takatsubo cardiomyopathy, papillary thyroid cancer s/p thyroidectomy, mood disorder, presented with seizure. had hematemesis, chest pain. breakthrough seizure in epilepsy continue keppra, depakote neuro eval chest pain with history of takatsubo cardiomyopathy nstemi with peak trop 4673 ekg unremarkable cardio appreciated - no heparin, no beta michael hematemesis likely due to retching, resolved, changed to po ppi severe persistent asthma continue inhalers stable transient acute hypoxic resp failure due to aspiration pneumonitis now on room air, hold off on abx for now history of papillary thryoid cancer s/p thyroid ectomy synthroid dvt prophylaxis - mechanical due to hematemesis full code reason for continued hospitalization:neuro eval, poor appetite Time Spent With Patient Time: Total time managing care of this patient today ____ minutes. Quality Stroke Does the patient have a stroke diagnosis?: No VTE Prior VTE?: No VTE Risk Level:: Medical - moderate - high VTE Device Contraindication: N/A - Device Ordered VTE Drug Contraindication: Treatment Not Tolerated
[2023-05-22] MEDS: ondansetron HCL 4 MG/2 ML VIAL IVPUSH (10:12)
--- NOTE | 2023-05-22 11:12 | P.CNNE_ITS ---
History of Present Illness Data of Consult Service Date: 05/22/23 Primary Care Provider: Saúl Maier PA-C HPI Reason for consult: Intractable epilepsy 42 years old man with asthma and cardiomyopathy with few years history of generalized seizure disorder. He was seeing Dr. Powers and apparently has been taking combination of Keppra and Depakote. He said that overall he might have 6 seizures in life in the last 1 happen recently. First 1 was few years ago. He said that he was compliant with medicines. He denied any recent stress is trauma or use of any significant drug of abuse other than little bit marijuana. Apparently he woke up after an unwitnessed event and had loss of bowel bladder control. [facility] Past Medical History Medical History ABPA (allergic bronchopulmonary aspergillosis) Asthma Diabetes Enlarged liver Gastritis Gastroparesis Migraine headache with aura Multinodular thyroid Myocardial infarct Postoperative hypothyroidism Schatzki's ring Seizures Sleep apnea Thyroid cancer Vitamin D deficiency Family History Family History Maternal Grandmother Emphysema, unspecified Father Diabetes Mother No problems noted. Paternal Grandfather Liver cancer Surgical History Surgical History History of cholecystectomy History of esophagogastroduodenoscopy (EGD) S/P removal of thyroid nodule S/P total thyroidectomy Social History Social History Household Members: Family Housing: Apartment Are you a primary home care physical therapist to a significant other at home: No Do you presently have visiting nurse or other home services: No Alcohol intake: former Patient Tobacco Use Status: Never used Tobacco e-Cigarette/Vaping Use: Never Used Second Hand Smoke Exposure: No Substance Use Type: Marijuana Advance Directives Date on File: 05/20/23 service: No Current occupational status: disabled Current occupation: rt handed Cognitive needs: No Hearing needs: No Vision needs: No Meds Allergies Allergy/AdvReac Type Severity Reaction Status Date / Time cat dander [CATS] Allergy Mild GENERALIZED Verified 05/20/23 06:54 ALLERGY SYMPTOMS dog dander [DOGS] Allergy Mild GENERALIZED Verified 05/20/23 06:54 ALLERGY SYMPTOMS tree and shrub pollen [TREE] Allergy Mild GENERALIZED Verified 05/20/23 06:54 ALLERGY SYMPTOMS FROM PINE TREES Active Medications: Current Medications Acetaminophen (Acetaminophen 325 Mg Tablet) 650 mg PO Q4H PRN PRN Reason: Pain, Mild (Pain Scale 1-3) Last Admin: 05/21/23 21:07 Dose: 650 mg Albuterol/Ipratropium (Albuterol/Iprat 2.5/0.5mg 3 Ml Ampul.Akash) 3 ml INHALE RQ4H WHILE AWAKE PRN PRN Reason: sob Last Admin: 05/21/23 04:13 Dose: 3 ml Lipase/Protease/Amylase (Lipase/Prot/Amylase 24/76/120k 1 Cap Capsule.) 1 cap PO QID [facility] Last Admin: 05/22/23 08:36 Dose: 1 cap Aspirin (Aspirin Enteric Coated 81 Mg Tablet.) 81 mg PO DAILY [facility] Last Admin: 05/22/23 08:36 Dose: 81 mg Atorvastatin Calcium (Atorvastatin Calcium 40 Mg Tablet) 40 mg PO BEDTIME [facility] Last Admin: 05/21/23 21:08 Dose: 40 mg Carvedilol (Carvedilol 3.125 Mg Tablet) 3.125 mg PO BID [facility]; Protocol Last Admin: 05/22/23 08:36 Dose: 3.125 mg Divalproex Sodium (Divalproex Sodium 500 Mg Tablet.) 1,500 mg PO DAILY [facility] Last Admin: 05/22/23 08:39 Dose: 1,500 mg Divalproex Sodium (Divalproex Sodium 500 Mg Tablet.) 1,000 mg PO BEDTIME [facility] Last Admin: 05/21/23 21:07 Dose: 1,000 mg Levetiracetam (Levetiracetam 1,000 Mg Tablet) 1,000 mg PO BID [facility] Last Admin: 05/22/23 08:37 Dose: 1,000 mg Levothyroxine Sodium (Levothyroxine Sodium 175 Mcg Tablet) 175 mcg PO DAILY@0600 [facility] Last Admin: 05/22/23 06:20 Dose: 175 mcg Lisinopril (Lisinopril 10 Mg Tablet) 10 mg PO DAILY [facility]; Protocol Last Admin: 05/22/23 08:36 Dose: 10 mg Metformin HCl (Metformin Hcl Er 500 Mg Tab.Er.24h) 500 mg PO DAILY [facility] Last Admin: 05/22/23 08:36 Dose: 500 mg Montelukast Sodium (Montelukast Sodium 10 Mg Tablet) 10 mg PO BEDTIME [facility] Last Admin: 05/21/23 21:07 Dose: 10 mg Morphine Sulfate (Morphine Sulfate 2 Mg/Ml Cartridge) 2 mg IVPUSH Q2H PRN; Protocol PRN Reason: moderate pain Last Admin: 05/21/23 06:03 Dose: 2 mg Pat Own Medication ( Linaclotide [Linzess ] 290 Mcg Capsule) 290 mcg PO DAILY [facility] Last Admin: 05/22/23 08:35 Dose: 290 mcg Omeprazole (Omeprazole 40 Mg Capsule.Dr) 40 mg PO DAILY@0630 [facility] Last Admin: 05/22/23 06:20 Dose: 40 mg Ondansetron HCl (Ondansetron Hcl 4 Mg/2 Ml Vial) 4 mg IVPUSH Q6H PRN PRN Reason: Nausea Last Admin: 05/22/23 10:12 Dose: 4 mg Oxycodone HCl (Oxycodone Hcl Immed Release 5 Mg Tablet) 5 mg PO Q4H PRN PRN Reason: moderate pain Last Admin: 05/21/23 08:22 Dose: 5 mg Sertraline HCl (Sertraline Hcl 100 Mg Tablet) 100 mg PO DAILY [facility] Last Admin: 05/22/23 08:36 Dose: 100 mg Sodium Chloride (0.9 % Sodium Chloride Flush 3 Ml Syringe) 3 ml [facility] Last Admin: 05/22/23 08:39 Dose: 3 ml Sucralfate (Sucralfate Oral Suspension 1 Gm/10 Ml Oral.Susp) 1 gm PO BID [facility] Last Admin: 05/22/23 08:35 Dose: 1 gm Theophylline (Theophylline Anhydrous Er 400 Mg Tab.Er.24h) 200 mg PO DAILY [facility] Last Admin: 05/22/23 08:36 Dose: 200 mg Vitamin D (Cholecalciferol (Vitamin D3) 25 Mcg Tablet) 50 mcg PO DAILY [facility] Last Admin: 05/22/23 08:36 Dose: 50 mcg Home Medications Medication Instructions Recorded Confirmed Last Taken Type divalproex 500 mg tablet,delayed 1,000 mg PO QPM 05/20/23 05/20/23 Unknown History release divalproex 500 mg tablet,delayed 1,500 mg PO QAM 05/20/23 05/20/23 Unknown History release gabapentin 300 mg capsule 300 mg PO BEDTIME PRN Pain 05/20/23 05/20/23 Unknown History levetiracetam 1,000 mg tablet 1,000 mg PO BID 05/20/23 05/20/23 Unknown History tiotropium bromide 2.5 2 puff PO DAILY PRN Shortness Of 05/20/23 05/20/23 Unknown History mcg/actuation mist for inhalation Breath (Spiriva Respimat) Physical Exam Vital Signs: Vital Signs: Last Vital Signs Temp 97.1 F 05/22/23 07:13 Pulse 88 05/22/23 07:13 Resp 15 05/22/23 07:13 BP 103/59 L 05/22/23 07:13 Pulse Ox 99 05/22/23 07:13 O2 Del Method Nasal Cannula 05/22/23 07:13 O2 Flow Rate 3 05/22/23 07:13 BMI result Body Mass Index 29.5 Neuro: Other: Little bit drowsy but able to converse and answer questions and report his previous history. Face is symmetrical. Visual wright are full. There is no focal weakness. No significant ataxia or tremor is noted. Results Labs 05/22/23 05:42 05/22/23 05:42 Labs: Short CBC 05/22/23 Range/Units 05:42 WBC 7.6 (4.8-10.8) X10*3/uL Hgb 11.6 L (14.0-18.0) g/dl Hct 34.1 L (42.0-52.0) % Plt Count 250 (160-400) X10*3/uL BMP 05/22/23 05:42 Sodium 142 Potassium 4.0 Chloride 111 H Carbon Dioxide 23 BUN 9 Creatinine 0.[address] did revealed mild cortical atrophy. Previous MRI of brain with and without contrast did not reveal any other abnormality. Couple of EEGs done in office did not reveal any significant abnormality. Microbiology Microbiology Results: Microbiology 05/20/23 08:59 Blood - Venous Blood Culture - Preliminary No growth after 48 hours. 05/20/23 09:17 Blood - Venous Blood Culture - Preliminary No growth after 24 hours. Assessment and Plan (1) Seizures: Status: Acute 42 years old man who probably has generalized seizure disorder. Seizures have not been well defined and delineated as to EEGs reported in our office were normal. His brain imaging has revealed mild cortical atrophy a suggesting at least some brain pathology. And then there are multiple other cardiopulmonary issues. My recommendation at this time is to continue underlying medicines and advised him to take these medicines on regular basis. Low level of L preg acid suggested that he probably was not taking is medicines on regular basis. At the same time, he might benefit from but tertiary care epilepsy Center consultation. At least, he should have further EEG monitoring maybe with outpatient ambulatory EEG to precisely define nature of seizures, focal onset or primary generalized type, and epileptic versus nonepileptic. He should not drive and be advised to not be involved in activities that could put his life in danger such as sitting in a soaking tub alone or swimming alone. Time Spent With Patient Time: Total time managing care of this patient today ____ minutes. Procedures Date of Service Date of Service: 05/22/23
[2023-05-22] MEDS: Acetaminophen 325 MG TABLET 650 MG PO (12:06)
--- NOTE | 2023-05-22 15:03 | MHC.CM.PN ---
EMR reviewed and per MD rounds, pt is not medically cleared for D/C at this time. CM will continue to follow.
[2023-05-22] MEDS: Albuterol/Iprat 2.5/0.5MG 3 ML AMPUL.NEB INHALE (15:26)
[2023-05-22] MEDS: Atorvastatin Calcium 40 MG TABLET PO (21:13)
[2023-05-22] MEDS: Montelukast Sodium 10 MG TABLET PO (21:13)
[2023-05-22] MEDS: Divalproex Sodium 500 MG TABLET.DR 1000 MG PO (21:14)
[2023-05-22] MEDS: Morphine Sulfate 2 MG/ML CARTRIDGE IVPUSH (21:16)
[2023-05-23 03:33] VITALS: BP 110/66; PULSE 61; RESP 18; TEMP 36.7; O2SAT 93
[2023-05-23] MEDS: Omeprazole 40 MG CAPSULE.DR PO (05:46)
[2023-05-23] MEDS: Levothyroxine Sodium 175 MCG TABLET PO (05:46)
[2023-05-23 07:34] VITALS: BP 120/66; PULSE 67; RESP 20; TEMP 36.3; O2SAT 95
--- NOTE | 2023-05-23 07:35 | PC.NURSE ---
Pt. c/o 7/10 chest pain last evening and requested pain medication. Pt. denies n/v. VSS. Dr. Ford notified; no ekg ordered; per MD can give morphine or Oxycodone. Pt. found in his room last evening with pillow over his head, trying to drown out noise/everything and made a SI comment. When Dr. Ford notified and in to see pt. Pt. denies SI or plan. No sitter ordered; Camera in use. Pt. pleasant and slept remainder of the night with no complaints.
[2023-05-23] MEDS: Cholecalciferol (Vitamin D3) 25 MCG TABLET 50 MCG PO (08:06)
[2023-05-23] MEDS: 0.9 % Sodium Chloride Flush 3 ML SYRINGE IVFLUSH (08:06)
[2023-05-23] MEDS: Theophylline Anhydrous ER 400 MG TAB.ER.24H 200 MG PO (08:06)
[2023-05-23] MEDS: Divalproex Sodium 500 MG TABLET.DR 1500 MG PO (08:08)
[2023-05-23] MEDS: Aspirin Enteric Coated 81 MG TABLET.DR PO (08:09)
[2023-05-23] MEDS: levETIRAcetam 1,000 MG TABLET 1000 MG PO (08:09)
[2023-05-23] MEDS: Sucralfate Oral Suspension 1 GM/10 ML ORAL.SUSP PO (08:09)
[2023-05-23] MEDS: lisinopriL 10 MG TABLET PO (08:09)
[2023-05-23] MEDS: Sertraline HCL 100 MG TABLET PO (08:09)
[2023-05-23] MEDS: Lipase/Prot/Amylase 24/76/120K 1 CAP CAPSULE.DR PO ×2 (08:09→13:21)
[2023-05-23] MEDS: metFORMIN HCl ER 500 MG TAB.ER.24H PO (08:09)
[2023-05-23] MEDS: carvediloL 3.125 MG TABLET PO (08:19)
[2023-05-23 11:28] VITALS: BP 118/68; PULSE 77; RESP 18; TEMP 36.3; O2SAT 96
--- NOTE | 2023-05-23 12:17 | P.DS_ITS ---
DS: Providers Provider Date of Service: 05/23/23 Date of admission: 05/20/23 10:30 Primary care physician: Saúl Maier PA-C Consults: 05/20/23 10:25 Consult to Gastroenterology Routine Consulting Provider: Torito Cantrell Reason for consultation: hematemesis history of barretts Consult to Neurology Routine Consulting Provider: [facility] Reason for consultation: breakthrough seizure 05/20/23 11:32 Consult to Cardiology Routine Consulting Provider: [facility] Reason for consultation: elevated trop, chest pain, history of takatsubo Has provider been notified: Yes DS: Diagnosis Discharge Diagnosis (1) Seizures: Status: Acute (2) Takotsubo cardiomyopathy: Status: Acute (3) Elevated troponin: Status: Acute (4) Acute upper GI bleeding: Status: Acute DS: Summary Hospital Course Hospital Course: Admission note HPI 42M PMH epilepsy, barretts esophogus, severe persistent asthma, takatsubo cardiomyopathy, papillary thyroid cancer s/p thyroidectomy, mood disorder, presented with seizure. patient reports no seizure for several months, then had one about 1 week ptp. then on day of presentation 3am found himself on floor, incontinent. he is compliant with AEDs. patient then had vomitting with some hematemesis. also noted left sided chest pressure. Hospital course The patient was admitted for a breakthrough seizure. found to have low level of seizure medicaitons and confirmed being non-adherent to his meds. evaluated by neurologist who recommended better commitement to his medications and to follow with tertiary center for further eval of his seizures with outpatient monitoring. Seen by cardiology for reported chest pain with history of takatsubo cardiomyopathy and elevated Troponin. Cardiology recommended no need for treatment with heparin or betablockers at this stage. chronic takatsubo CMP based on repeat ECHO showing similar pattern. Avoid beta-michael, Cardizem and verapamil.? Evaluated by GI for hemaemesis event. no drop in Hb or recurrence while inpatient. Dr Cantrell believed it is likely from MW tear and recommended medical management with PPI. diet advanced with no reported recurrent. Hb remained stable. to be discharged on PO Omeprazole. Continue Omeprazole as prescribed Take your seizure medications as prescribed Follow with Neurology at [facility] or [facility] for further evaluation Time Spent with Patient Time attestation: Total time managing care of this patient today ____ minutes. Discharge coordination time: Greater than 30 minutes Quality: Safe Use of Opioids Does Pt have an Active Cancer Diagnosis on the Problem List?: No Quality: Stroke Does the patient have a stroke diagnosis?: No Physical Exam Vital Signs: Vital Signs: Last Vital Signs Temp 97.4 F 05/23/23 11:28 Pulse 77 05/23/23 11:28 Resp 18 05/23/23 11:28 BP 118/68 05/23/23 11:28 Pulse Ox 96 05/23/23 11:28 O2 Del Method Room Air 05/23/23 11:28 O2 Flow Rate 3 05/22/23 07:13 BMI result Body Mass Index 29.5 Const: Other: Constitutional : Awake, interactive, not in distress Neck : Normal inspection, Supple Cardiovascular : RRR, no JVP, no lower extremity edema Respiratory : good bilateral air entry, no crackles, wheezes or rhonchi Gastrointestinal: soft, lax, Normal bowel sounds, Non tender Skin : Warm, Dry Neurological : Alert & oriented x3, No focal deficit DS: Data Data Completed and Pending Labs on day of discharge: Preliminary micro results at discharge 05/20/23 09:17 Blood Culture - Preliminary Blood - Venous No growth after 48 hours. 05/20/23 08:59 Blood Culture - Preliminary Blood - Venous No growth after 48 hours. Imaging Chest x-ray: Radiologist's impression: ITS Impressions Abdomen/Pelvis CT 05/20/23 08:23 IMPRESSION: No acute findings. Fatty liver. Fleischner guidelines were followed. Cervical Spine CT 05/20/23 08:23 IMPRESSION: No acute intracranial pathology. EXAMINATION: Noncontrast CT scan of the cervical spine. INDICATION: Fall COMPARISON: CT cervical spine from 08/05/2020 TECHNIQUE: Helical, multidetector axial images were obtained from the occiput to the upper thorax. Coronal and sagittal reformats of the cervical spine were provided for interpretation. DLP: 411.32 mGy-cm FINDINGS: No acute fractures or dislocations of the cervical spine are seen. Mild multilevel degenerative changes Anatomic alignment and positioning of the vertebral bodies and posterior elements is noted. The atlantoaxial joint and craniovertebral articulations are normal without evidence of subluxation. There is no prevertebral soft tissue swelling. Left apical patchy radiopacity, better evaluated on dedicated cross-sectional imaging. Radiopaque surgical material in the region of the thyroid status post thyroidectomy. IMPRESSION: 1. No acute visible fracture or dislocation. 2. Mild multilevel degenerative changes. 3. Left lung apical patchy radiopacity, better evaluated on dedicated contemporaneous cross-sectional imaging. Chest CT 05/20/23 08:23 IMPRESSION: No fracture. Scattered areas areas of increased groundglass attenuation and nodular opacities and increased interstitial markings in the left lung. Shotty mediastinal and bilateral hilar lymphadenopathy. Mild bilateral central bronchial wall thickening. This probably represents pneumonitis or small pneumonia. Fleischner guidelines were followed. Head CT 05/20/23 08:23 IMPRESSION: No acute intracranial pathology. EXAMINATION: Noncontrast CT scan of the cervical spine. INDICATION: Fall COMPARISON: CT cervical spine from 08/05/2020 TECHNIQUE: Helical, multidetector axial images were obtained from the occiput to the upper thorax. Coronal and sagittal reformats of the cervical spine were provided for interpretation. DLP: 411.32 mGy-cm FINDINGS: No acute fractures or dislocations of the cervical spine are seen. Mild multilevel degenerative changes Anatomic alignment and positioning of the vertebral bodies and posterior elements is noted. The atlantoaxial joint and craniovertebral articulations are normal without evidence of subluxation. There is no prevertebral soft tissue swelling. Left apical patchy radiopacity, better evaluated on dedicated cross-sectional imaging. Radiopaque surgical material in the region of the thyroid status post thyroidectomy. IMPRESSION: 1. No acute visible fracture or dislocation. 2. Mild multilevel degenerative changes. 3. Left lung apical patchy radiopacity, better evaluated on dedicated contemporaneous cross-sectional imaging. Discharge Plan Discharge Anticipated Discharge Date/Time: 05/23/23 12:03 Patient Disposition: Home, Self-Care Discharge Diagnosis: Breakthrough seizure bloody vomitus Referrals: Saúl Maier PA-C [Primary Care Provider] - 1 Week Discharge Medications: New omeprazole 40 mg Capsule,Delayed Release(Dr/Ec) 40 mg PO DAILY@0630 Qty: 90 0RF Continued carvedilol 3.125 mg tablet 3.125 mg PO BID 90 Days Qty: 180 2RF Dupixent Pen 300 mg/2 mL pen injector 300 mg subcut Q2W 28 Days Qty: 4 12RF Rx Instructions: Initial dose 600 mg, then 300 mg every 2 weeks subcutaneously (DME) Sharps container See Rx Instructions .Route .MEDSUPPLY Qty: 1 0RF Rx Instructions: As directed aspirin 81 mg tablet,delayed release (DR/EC) 81 mg PO DAILY 90 Days Qty: 90 2RF sertraline 100 mg tablet 100 mg PO DAILY 90 Days Qty: 90 2RF lisinopril 10 mg tablet 10 mg PO DAILY 90 Days Qty: 90 3RF atorvastatin 40 mg tablet 40 mg PO BEDTIME 90 Days Qty: 90 3RF rabeprazole 20 mg tablet,delayed release (DR/EC) 20 mg PO DAILY Qty: 90 2RF sucralfate 100 mg/mL suspension 10 ml PO BID Qty: 400 3RF Rx Instructions: Please take it at noon time and at bedtime albuterol sulfate [Ventolin HFA] 90 mcg/actuation HFA aerosol inhaler 2 puff PO Q6H PRN (Reason: for dyspnea) Qty: 18 6RF theophylline 400 mg tablet extended release 24 hr 200 mg PO DAILY Qty: 15 6RF riboflavin (vitamin B2) 400 mg tablet 400 mg PO DAILY 30 Days Qty: 30 0RF levothyroxine 175 mcg tablet 175 mcg PO DAILY 30 Days Qty: 30 3RF divalproex 500 mg tablet,delayed release (DR/EC) 1,000 mg PO QPM divalproex 500 mg tablet,delayed release (DR/EC) 1,500 mg PO QAM gabapentin 300 mg capsule 300 mg PO BEDTIME PRN (Reason: Pain) levetiracetam 1,000 mg tablet 1,000 mg PO BID Spiriva Respimat 2.5 mcg/actuation mist 2 puff PO DAILY PRN (Reason: Shortness Of Breath) metformin 500 mg tablet extended release 24 hr 500 mg PO DAILY 90 Days Qty: 90 2RF nystatin 100,000 unit/mL suspension 5 ml PO DAILY PRN (Reason: thrush) 30 Days Qty: 200 3RF Rx Instructions: administer 1/2 of dose in each side of the mouth montelukast 10 mg tablet 10 mg PO BEDTIME 90 Days Qty: 90 2RF simethicone [Gas Relief 80 (simethicone)] 80 mg tablet,chewable 80 mg PO BID-QID PRN (Reason: abdominal distention) Qty: 30 0RF cholecalciferol (vitamin D3) 50 mcg (2,000 unit) capsule 50 mcg PO DAILY Qty: 90 2RF Linzess 290 mcg capsule 290 mcg PO QAM Qty: 30 4RF ondansetron 4 mg tablet,disintegrating 4 mg PO Q8H PRN (Reason: nausea and vomiting) Qty: 20 0RF Creon 24,000-76,000 -120,000 unit capsule,delayed release(DR/EC) 1 cap PO QID Qty: 120 2RF Rx Instructions: administer with meals and/or snacks bisacodyl [Dulcolax (bisacodyl)] 5 mg tablet,delayed release (DR/EC) 10 mg PO BEDTIME Qty: 180 4RF Discharge Orders: Discharge Order (Routine); Ordered 05/23/23 Ordered By: Gee Cabello Diet: Advance to usual diet Activity on Discharge: As tolerated Stand Alone Forms: Patient Portal Discharge page Care Plan Goals: Read below Health Concerns: Read below Plan of Treatment: Read below Assessment: You were admitted for monitoring after having seizure and bloody vomitus. evaluated by neurologist who recommended adherence to your medications and follow up at a tertiary center for further evaluation of seizure. GI recommended medical management as no evidence of recurrent bleeding or drop in blood level; believed to be a result of self limiting tear. Continue Omeprazole as prescribed Take your seizure medications as prescribed Follow with Neurology at [facility] or [facility] for further evaluation
--- NOTE | 2023-05-23 13:11 | MHC.CM.PN ---
Pt medically cleared for D/C home self-care, family to transport him home.
== END 2023-05-23 13:37 | disposition home or self-care (01) | DRG 53 ==
LOC: HO.ED 09:49 → HO.EDOVER 10:35 → HO.IMC 12:36
PROVIDERS: Physician Assistant; Student in an Organized Health Care Education/Training Program; Admitting Provider Internal Medicine; Emergency Provider Emergency Medicine; PCP Physician Assistant; Visit Provider Student in an Organized Health Care Education/Training Program
DX: G40.909 Epilepsy, unspecified, not intractable, without status epilepticus (principal); I51.81 Takotsubo syndrome; T42.76XA Underdosing of unspecified antiepileptic and sedative-hypnotic drugs, initial encounter; E89.0 Postprocedural hypothyroidism; J45.50 Severe persistent asthma, uncomplicated; Z20.822 Contact with and (suspected) exposure to COVID-19; Z85.850 Personal history of malignant neoplasm of thyroid; Z79.82 Long term (current) use of aspirin; Z79.84 Long term (current) use of oral hypoglycemic drugs; Z79.899 Other long term (current) drug therapy
CPT/HCPCS: 0241U; 36415; 70450; 71260; 72125; 74177; 80048; 80053; 80164; 81003; 82272; 82550; 83605; 83735; 84484; 85025; 85027; 87040; 93005; 93306; 94640; 99285; J0696; J1953; J2060; J2270; J2405; Q9957; Q9967

== ENCOUNTER 2023-05-20 10:30 | Outpatient (BNV) | payer OTHER, SELFPAY | END 2023-05-21 13:00 | PROVIDERS: Admitting Provider Internal Medicine; Emergency Provider Emergency Medicine; PCP Physician Assistant; Visit Provider Internal Medicine Cardiovascular Disease | DX: I21.4 Non-ST elevation (NSTEMI) myocardial infarction (principal) | CPT/HCPCS: 93306 ==

== ENCOUNTER → 2023-05-20 10:30 | Outpatient (BNV) | payer OTHER, SELFPAY | PROVIDERS: Admitting Provider Internal Medicine; Emergency Provider Emergency Medicine; PCP Physician Assistant; Visit Provider Internal Medicine | DX: R56.9 Unspecified convulsions (principal); I51.81 Takotsubo syndrome; R77.8 Other specified abnormalities of plasma proteins; K92.2 Gastrointestinal hemorrhage, unspecified | CPT/HCPCS: 99223; 99232; 99233; 99239 ==

== ENCOUNTER → 2023-05-20 10:30 | Outpatient (BNV) | payer OTHER, SELFPAY | PROVIDERS: Admitting Provider Internal Medicine; Emergency Provider Emergency Medicine; PCP Physician Assistant; Visit Provider Internal Medicine Cardiovascular Disease | DX: R77.8 Other specified abnormalities of plasma proteins (principal); I51.81 Takotsubo syndrome | CPT/HCPCS: 99223 ==

== ENCOUNTER 2023-06-14 10:36 | Outpatient (AMB) | payer OTHER, SELFPAY ==
--- NOTE | 2023-06-14 10:42 | A.OFFPC_ITS ---
Vital Signs 06/14/23 10:47 Height 5 ft 5 in Weight 174 lb BMI 29.0 BP 104/60 Blood Pressure Location Lt brachial Position Sitting Respiration 17 Pulse 88 Pulse Source Pulse Oximeter Pulse Oximetry (%) 98 Oxygen Delivery Method Room Air Intake Visit Reasons: f/u IGM/ Thyroid/ Sz disorder E Commerce Manager Required: No Accompanied by: Self / Same As Patient Allergies cat dander [CATS] Allergy (Mild, Verified 06/14/23 11:03) GENERALIZED ALLERGY SYMPTOMS dog dander [DOGS] Allergy (Mild, Verified 06/14/23 11:03) GENERALIZED ALLERGY SYMPTOMS tree and shrub pollen [TREE] Allergy (Mild, Verified 06/14/23 11:03) GENERALIZED ALLERGY SYMPTOMS FROM PINE TREES Medication List - Last Reconciled 06/14/23 by Saúl Maier PA-C aspirin 81 mg PO DAILY 90 days atorvastatin 40 mg PO BEDTIME 90 days bisacodyl (Dulcolax (bisacodyl)) 10 mg (2 x 5 mg) PO BEDTIME carvedilol 3.125 mg PO BID 90 days cholecalciferol (vitamin D3) 50 mcg PO DAILY divalproex 1,500 mg PO QAM divalproex 1,000 mg PO QPM dupilumab (Dupixent) 300 mg (2 mL) subcut Q2W 28 days gabapentin 300 mg PO BEDTIME PRN levetiracetam 1,000 mg PO BID levothyroxine 175 mcg PO DAILY 30 days linaclotide (Linzess) 290 mcg PO QAM crsfri-[id number]-ecxrwfh 24,000-76,000 -120,000 unit (Creon) 1 cap PO QID lisinopril 10 mg PO DAILY 90 days metformin ER 500 mg PO DAILY 90 days montelukast 10 mg PO BEDTIME 90 days nystatin 5 mL PO DAILY PRN 30 days omeprazole 40 mg PO DAILY@0630 rabeprazole 20 mg PO DAILY riboflavin (vitamin B2) 400 mg PO DAILY 30 days sertraline 100 mg PO DAILY 90 days [Sharps container As directed] simethicone (Gas Relief 80 (simethicone)) 80 mg PO BID-QID PRN sucralfate 10 mL PO BID theophylline ER 200 mg (1/2 x 400 mg) PO DAILY tiotropium bromide 2.5 mcg/actuation (Spiriva Respimat) 2 puffs PO DAILY PRN Ventolin HFA 90 mcg/actuation (albuterol sulfate) 2 puffs PO Q6H PRN NS Tobacco use date assessed: 04/30/23 Dental Screening Dental Screen Date: 06/14/23 Did you have a dental visit in the last 12 months?: Yes Did you have a dental problem in the last 6 months where you did not have access to dental care?: No Was dental information given to patient?: Patient has dentist HPI f/u IGM/ Thyroid/ Sz disorder HPI Details Terrance is 42year-old male here today for a routine annual physical ?Patient? has a past medical history significant for seizure disorder, moderate persistent? asthma, depression and anxiety, thyroid cancer status post thyroidectomy. Recently seen at [facility] for breakthrough seizures. Found to a low seizure medication level due to being on adhering to medication. Neurology consult in advised on a better commitment to taking his seizure medication. Patient was also found to have very elevated troponin levels and cardiology evaluated whom did not recommend any treatment. Elevations in troponin enzymes likely due to cardiomyopathy. Also his upper GI bleed was thought to be due to a Vicky-Bradshaw tear in the setting of his seizures. H and H was stable and advised to start omeprazole. Of note to get endoscopy in January of 2023 showing Ramirez's esophagus, Schatzki is rings and chronic gastritis. .. CHRONIC MEDICAL CONDITIONS--> History of?thyroid cancer: He is status post total thyroidectomy. Continues on levothyroxine indefinitely. Followed by endocrinology. ?.. ? Anxiety: Patient he is? seeing therapist (Junito) at [facility] here at [facility]. Patient continues? on Zoloft .. History of cardiomyopathy:? Patient has a history of dilated cardiomyopathy.? Was followed by laundry presser.? Has been on moderate dose statin and most recent lipid panel showing elevated total cholesterol and LDL.?.. ?Moderate persistent asthma:? Followed by Pulmonology. REcent PFT - showing modererate asthma vs COPD.? .? He reports his asthma has improved since starting Dupixent ?. ?Seizure disorder:? Unfortunately has been having breakthrough seizures. Unclear if this is due to medication noncompliance.? Recent valproic acid level was low. He is interested in a 2nd opinion tertiary hospital about his breakthrough seizures.. .? He reports no seizure activity over t he last several months.? A routine annual physical?? Laboratory Tests 05/10/22 02/13/23 02/14/23 09:38 07:03 11:46 RBC Hgb POC Glucose 95 Fasting Glucose Hgb A1c (Clinic) 6.3 H Troponin I High Se ns TSH 11.83 H Valproic Acid Thyroglobulin Anti body <1 02/14/23 05/20/23 05/20/23 12:08 08:47 13:26 RBC Hgb POC Glucose 139 H Fasting Glucose Hgb A1c (Clinic) Troponin I High Se ns 4673.1 H* D TSH Valproic Acid 31.4 L Thyroglobulin Anti body 05/21/23 05/21/23 05/22/23 06:41 06:41 05:42 RBC 3.98 L D 3.88 L Hgb POC Glucose Fasting Glucose Hgb A1c (Clinic) Troponin I High Se ns 2653.8 H* TSH Valproic Acid Thyroglobulin Anti body 05/22/23 05/22/23 06/14/23 05:42 05:42 10:41 RBC Hgb 11.6 L POC Glucose Fasting Glucose 104 H Hgb A1c (Clinic) 6.4 H Troponin I High Se ns TSH Valproic Acid Thyroglobulin Anti body PFSH Medical History Takotsubo cardiomyopathy Schatzki's ring Gastritis Sleep apnea Diabetes Gastroparesis Migraine headache with aura Enlarged liver Postoperative hypothyroidism Thyroid cancer Vitamin D deficiency Multinodular thyroid Seizures ABPA (allergic bronchopulmonary aspergillosis) Myocardial infarct Seizures Asthma Surgical History History of esophagogastroduodenoscopy (EGD) S/P total thyroidectomy S/P removal of thyroid nodule History of cholecystectomy Family History Maternal Grandmother Emphysema, unspecified Father Diabetes Mother No problems noted. Paternal Grandfather Liver cancer Social History Household Members: Family Housing: Apartment Are you a primary critical care technician to a significant other at home: No Do you presently have visiting nurse or other home services: No Alcohol intake: former Patient Tobacco Use Status: Never used Tobacco e-Cigarette/Vaping Use: Never Used Second Hand Smoke Exposure: No Substance Use Type: Marijuana Advance Directives Date on File: 05/20/23 service: No Current occupational status: disabled Current occupation: rt handed Cognitive needs: No Hearing needs: No Vision needs: No Questionnaire Thrive Questionnaire Date Thrive assessed: 05/21/23 MOOSE-7 AMB Questionnaire MOOSE-7 Date MOOSE - 7 assessed: 11/20/22 Source: Developed by Drs. Ramses Nguyen, Debi Russ, Colin Rowell and colleagues, with an educational javy from [employer]. Review of Systems Const Denies headache(s) and Reports malaise Eyes Denies loss of vision ENT Denies vertigo, Denies dizziness, Denies headache(s), Reports post nasal drip, Reports sinus pressure and Denies sore throat Card Denies chest pain, Denies leg edema and Denies lightheadedness Resp Denies cough, Denies hemoptysis and Denies wheezing GI Denies abdominal pain, Denies melena, Denies constipation, Reports dyspepsia, Denies diarrhea and Reports vomiting Denies dysuria, Denies urinary frequency and Denies urinary urgency Musc Denies arthralgias, Denies joint swelling, Denies numbness and Denies tingling Neuro Denies Abnormal speech present, Denies behavioral changes, Denies vertigo, Denies dizziness, Denies headache(s), Denies loss of vision, Denies memory loss, Denies numbness and Denies tingling Psych Denies anxiety, Denies behavioral changes, Denies depression, Denies memory loss and Denies panic attacks Nico/Lymph Denies easy bleeding and Denies easy bruising Aller/Immun Denies wheezing Physical exam (Primary Care) Vital Signs: Last Vital Signs Pulse 88 06/14/23 10:47 Resp 17 06/14/23 10:47 BP 104/60 06/14/23 10:47 Pulse Ox 98 06/14/23 10:47 Oxygen Delivery Method Room Air 06/14/23 10:47 BMI result Body Mass Index 29.0 Tobacco/Smoking Status: Tobacco use Status Tobacco use date assessed 04/30/23 06/14/23 10:43 Patient Tobacco Use Status Never used Tobacco 06/14/23 10:43 e-Cigarette/Vaping Use Never Used 06/14/23 10:43 Thrive Assessment: Date of Thrive Assessment Date Thrive assessed 05/21/23 06/14/23 10:43 Const General: healthy appearing, no acute distress, alert and awake Nutritional Appearance: well nourished Orientation/consciousness: oriented to person, oriented to place and oriented to time HENMT Ears: TM's normal bilaterally General nose exam: Normal nasal mucous membranes and turbinates present Eyes Conjunctivae: conjunctivae normal Sclerae: sclerae normal Pupils: Equal, round and reactive pupils present Neck Neck: Yes no lymphadenopathy and Yes no JVD Thyroid: Thyroid normal Carotids: no bruits Resp Effort & Inspection: normal respiratory effort and not tachypneic Auscultation: no crackles, no rales, no rhonchi and no wheezes Cardio Rate: regular rate Rhythm: regular rhythm Heart sounds: no murmurs and normal S1 and S2 GI Palpation (GI): Soft to palpation, nontender, no hepatomegaly and no splenomegaly Auscultation: normal bowel sounds Skin General skin exam: no rashes or lesions noted and dry skin Neuro General: oriented to person, oriented to place and oriented to time Cranial nerves: Yes Equal, round and reactive pupils present Speech: No Abnormal speech present Gait exam (Neuro): Normal gait present Motor exam (neuro): no tremor noted Extrem Right upper extremity: full ROM Left upper extremity: full ROM Right lower extremity: full ROM; no edema Left lower extremity: full ROM; no edema Psych Mental Status: mental status grossly normal Speech and movement: Normal speech and movement present Affect: normal affect Attitude: cooperative Thought process: Normal thought process present Results AMB Hemoglobin A1c AMB Hemoglobin A1c 6.4 % Last Edit by RANJEET Holden on 06/14/23 10:55 Results Reviewed Results Reviewed: Laboratory Last Values Hgb A1c (Clinic) 6.4 % (4.0-6.0) H 06/14/23 10:41 Assessment and Plan Assessment & Plan (1) Thyroid cancer: Code(s): C73 - Malignant neoplasm of thyroid gland Plan: Followed by Endocrinology, is status post total thyroidectomy. Continues on levothyroxine indefinitely. (2) Severe persistent allergic asthma: Code(s): J45.50 - Severe persistent asthma, uncomplicated Plan: Patient reports his asthma is been fairly well controlled with current maintenance inhalers and Singulair. He is followed by pulmonology. (3) Barretts esophagus: Code(s): K22.70 - Ramirez's esophagus without dysplasia Qualifiers: Ramirez's esophagus type: without dysplasia Qualified Code(s): K22.70 - Ramirez's esophagus without dysplasia Plan: Recent hospitalization for acute upper GI bleed. Thought to be Vicky-Bradshaw tear. He reports he still sees a small bit of blood in his stool. Will discontinue his aspirin due to reports GI bleeding. Recent endoscopy showing Ramirez's esophagus . He is now on omeprazole 40 mg daily and would like to continue on this and see if this helps his GERD symptoms. (4) Impaired glucose metabolism: Code(s): R73.09 - Other abnormal glucose Plan: A1c today acceptable. He will trial him off of metformin as he does take a lot of medication and there was some concern for polypharmacy here Will continue to follow fasting blood sugar and check A1c to evaluate for diabetes. (5) Seizure disorder: Code(s): G40.909 - Epilepsy, unspecified, not intractable, without status epilepticus Plan: Patient does not report any recent seizures. Continues on Keppra and divalproex. Unclear if he has been consistent with the use of his seizure medication. He would like a 2nd opinion from Neurology about his breakthrough seizures. Has had EEGs in brain MRIs with which have been unremarkable. (6) Cervical radiculopathy: Code(s): M54.12 - Radiculopathy, cervical region Plan: Patient continues to have left upper extremity pain. Has been started on gabapentin which has not been effective. EMG without any neuropathy noted. Of note x-ray of cervical spine did so C3-C4 vertebral arthritis. He is interested in physical therapy and re-establishing care with pain management for pain reduction modality Orders: Orders Basic Metabolic Panel Today K29.30 - Chronic superficial gastritis without bleeding PT Evaluation and Treatment Today M54.12 - Radiculopathy, cervical region AMB Hemoglobin A1c Today Z13.1 - Encounter for screening for diabetes mellitus Complete Blood Count no Diff Today K29.30 - Chronic superficial gastritis without bleeding Referrals Pain Management Referral K29.30 - Chronic superficial gastritis without bleeding Neurology Referral G40.909 - Epilepsy, unspecified, not intractable, without status epilepticus Medications: On Hold aspirin Hold Comment: Doctor's Order 81 mg PO DAILY 90 days 90 tabs 2RF I42.9 - Cardiomyopathy, unspecified metformin ER Hold Comment: Doctor's Order 500 mg PO DAILY 90 days 90 tabs 2RF R73.09 - Other abnormal glucose Coding Level of Care Code Est Pt Level 4 (09233) Diagnoses Thyroid cancer C73 Severe persistent allergic asthma J45.50 Ramirez's esophagus without dysplasia K22.70 Ramirez's esophagus type: without dysplasia Impaired glucose metabolism R73.09 Seizure disorder G40.909 Cervical radiculopathy M54.12
[2023-06-14 10:47] VITALS: BP 104/60; PULSE 88; RESP 17; O2SAT 98; BMI 29.0
== END 2023-06-14 11:35 | disposition home or self-care (01) ==
PROVIDERS: PCP Physician Assistant; Visit Provider Physician Assistant
DX: C73 Malignant neoplasm of thyroid gland (principal); J45.50 Severe persistent asthma, uncomplicated; G40.909 Epilepsy, unspecified, not intractable, without status epilepticus; K22.70 Barrett's esophagus without dysplasia; R73.09 Other abnormal glucose; M54.12 Radiculopathy, cervical region; Z85.850 Personal history of malignant neoplasm of thyroid
CPT/HCPCS: 83036; 99214

== ENCOUNTER 2023-07-02 09:18 | Outpatient (AMB) | payer OTHER, SELFPAY ==
--- NOTE | 2023-07-02 09:23 | MHC.OFFVIS ---
Intake Vital Signs 07/02/23 09:28 Height 5 ft 5 in Weight 178 lb 6 oz BMI 29.7 BP 140/82 H Blood Pressure Location Rt brachial Position Sitting Pulse 78 Pulse Source Pulse Oximeter Pulse Oximetry (%) 96 Oxygen Delivery Method Room Air Intake Visit Reasons: cervical radiculopathy Allergies cat dander [CATS] Allergy (Mild, Verified 07/02/23 09:27) GENERALIZED ALLERGY SYMPTOMS dog dander [DOGS] Allergy (Mild, Verified 07/02/23 09:27) GENERALIZED ALLERGY SYMPTOMS tree and shrub pollen [TREE] Allergy (Mild, Verified 07/02/23 09:27) GENERALIZED ALLERGY SYMPTOMS FROM [place] HPI HPI Comments History of Present Illness Details Patient presents today for follow up for neck and left shoulder pain. He was initially seen in our office in January with pending EMG/NVC and left shoulder MRI studies ordered by [facility]. His EMG and NVC studies are within normal limits on 02/08/23. He attempted left shoulder MRI in January but could not complete it due to claustrophobia. Unfortunately, this was not yet rescheduled. I will submit new order to [facility] per patient's request. Patient continues to report left shoulder pain radiating down to his left upper extremity to the elbow with paresthesias, burning, stabbing, numbness and tingling sensations in his LUE with associates weakness. Movements and cold weather increases his pain while warm, hot compresses and gabapentin partially alleviate his symptoms. He cannot lift his left arm due to severe pain in the anterior aspect in his left shoulder. Patient reports his neck pain has been improving with PT, has pain with left lateral rotation or bending that radiates into his left shoulder. Patient attributes his pain due to falling from seizure activities. He was recently seen in ER with admission on 05/20/23-05/23/23 due to fall from seizure activities and hematemesis with history of Barretts. Patient is restarting PT on 07/06/23 for neck pain. Denies any recent cough, cold, infection, fever or other significant changes in medical history since last office visit. PT Discharge Summary 01/24/23: Pt was seen for PT from 11/09/22-01/24/23. He has made progress since SOC. He has had a decrease in shoulder pain and has made improvements in shoulder ROM however he continues to have limitations with L shoulder ROM and strength limiting his functional activities. He is I with HEP. Ultimately, he has reached functional plateau with skilled PT. He is recommended to continue to perform HEP and follow up with scheduled providers (Orthopedics 02/02/23 and Pain management 02/02/23). PRIOR 02/01/23: Patient is a pleasant 42 years old male with history of thyroid cancer s/p total thyroidectomy, adhesive capsulitis of right shoulder, seizures, migraine headaches, and axillary nerve injury presents today for evaluation of left arm pain. He reports initially pain started out in right shoulder after he woke up after cholecystectomy and could not move his right arm or fingers. Patient reports a year later he had a seizure at home, witnessed by his cousin and continued to experience multiple seizures since then. Last episode was 06/2022. Patient reports during a seizure he hit his head against the washer and has been having migraine headaches more frequent. He states he had a heart attack before a seizure as well. Pain is located in anterior left shoulder upon raising his arm at the heart level. Patient completed physical therapy for 6 weeks, 2x a week with some improvement in his range of motion. His concern today is for inability to dumpman and grasp with left hand, due to weakness, numbness and tingling. Pain is described as constant pulsating, throbbing, pounding, tingling, stinging, dull, sore, hurting, aching, heavy, tiring and exhausting. Patient reports he frequently drops objects in his left hand. Patient is a right hand dominant. Denies neck pain or visual disturbances. Reports migraine headaches with aura since started having seizures and reports increased photosensitivity. Denies any gait disturbance, loss of balance, bladder or bowel incontinence or saddle anesthesia. Patient cannot do overhead reaches or reach his back side pocket due to pain and weakness on the left side. He also has localized left elbow pain. Light palpation of lateral elbow will make his fingers shake and numb. Reports left hand tremors upon awakening in the morning. Patient has pending left shoulder MRI and EMG/NVC studies that we ordered on 01/26/23 by Orthopedics. Patient is also due to restart Physical Therapy to continue improve left arm ROM and decrease pain. [facility] Medical History (Updated 07/02/23 @ 12:06 by ARIELA Torres) Claustrophobia Takotsubo cardiomyopathy Schatzki's ring Gastritis Sleep apnea Diabetes Gastroparesis Migraine headache with aura Enlarged liver Postoperative hypothyroidism Thyroid cancer Vitamin D deficiency Multinodular thyroid Seizures ABPA (allergic bronchopulmonary aspergillosis) Myocardial infarct Seizures Asthma Surgical History History of esophagogastroduodenoscopy (EGD) S/P total thyroidectomy S/P removal of thyroid nodule History of cholecystectomy Family History Maternal Grandmother Emphysema, unspecified Father Diabetes Mother No problems noted. Paternal Grandfather Liver cancer Social History Household Members: Family Housing: Apartment Are you a primary home care aide to a significant other at home: No Do you presently have visiting nurse or other home services: No Alcohol intake: former Patient Tobacco Use Status: Never used Tobacco e-Cigarette/Vaping Use: Never Used Second Hand Smoke Exposure: No Substance Use Type: Marijuana Advance Directives Date on File: 05/20/23 service: No Current occupational status: disabled Current occupation: rt handed Cognitive needs: No Hearing needs: No Vision needs: No Review of Systems Const All systems reviewed & are unremarkable except as noted in HPI and below Physical Exam General: Appears afebrile. Alert and oriented. Mood and affect appropriate. Follows and participates in conversation appropriately. Respiratory effort is unlabored. No cough. No nasal discharge. Able to transition from sit to stand unassisted. Ambulates with bilaterally normal heel strike and toe off. Neck Other: Patient with decreased cervical ROM with left lateral rotation and bending. Reports decreased pain with cervical extension with PT. Spurling compression test negative. Pain is unchanged by Spurling maneuver with retraction. Elvey's tension test positive on the left, with radiation of pain from neck to elbow. Lhermitte's test was negative. DTR intact on the right, +2 and not tested on the left due to pain. Patient demonstrated 4/5 left and 5/5 right motor strength of bilateral upper extremities. 2 + radial pulses. Significant pain with external and internal left shoulder rotations. Patient has difficulty raising left arm above heart level due to pain in anterior left shoulder. Neck: Yes no lymphadenopathy, Yes supple, No anterior neck swelling, No torticollis and Yes no JVD Back/Spine/Pelvis Cervical Spine: cervical muscular tenderness, pain with cervical ROM, cervical spasm, No Cervical spine tenderness and No step off deformity Thoracic/Lumbar Spine: thoracic and lumbar spine normal to inspection, Thoracic/lumbar spine scar(s), No thoracic spinal tenderness and No lumbar spinal tenderness Extrem Left upper extremity: shoulder/upper arm (Limited ROM due to pain, worse with external rotation.) Details: inspection abnormal and tenderness Location: of the A-C joint, over the biceps tendon and over the subacromial bursa; no swelling, no abrasions, no ecchymosis, no crepitus and no unsual warmth Results Reviewed Results Reviewed: CT HEAD WITHOUT CONTRAST 05/20/23 CLINICAL INFORMATION: Fall head trauma COMPARISON: CT head from 04/15/2023 FINDINGS: There is no evidence of acute intracranial hemorrhage or territorial infarction. No abnormal mass effect or midline shift is seen. Vora to white matter differentiation is well preserved. No extra-axial fluid collections are identified. The ventricles are normal in size. There is no abnormal attenuation within the brain parenchyma. The osseous structures and soft tissues are normal. Left maxillary sinus mucosal retention cyst versus polyp. The mastoid air cells and visualized portions of the paranasal sinuses are well aerated. IMPRESSION: No acute intracranial pathology. CT/CT cervical spine wo IV con 05/20/23 INDICATION: Fall COMPARISON: CT cervical spine from 08/05/2020 FINDINGS: No acute fractures or dislocations of the cervical spine are seen. Mild multilevel degenerative changes Anatomic alignment and positioning of the vertebral bodies and posterior elements is noted. The atlantoaxial joint and craniovertebral articulations are normal without evidence of subluxation. There is no prevertebral soft tissue swelling. Left apical patchy radiopacity, better evaluated on dedicated cross-sectional imaging. Radiopaque surgical material in the region of the thyroid status post thyroidectomy. IMPRESSION: 1. No acute visible fracture or dislocation. 2. Mild multilevel degenerative changes. 3. Left lung apical patchy radiopacity, better evaluated on dedicated contemporaneous cross-sectional imaging. XR CERVICAL SPINE 02/01/23 CLINICAL INFORMATION: Radiculopathy FINDINGS: Mild curvature of the lower cervical and upper thoracic spine to the right. Bone alignment is otherwise normal. No fracture or dislocation. Mild degenerative spondylosis at C 5 6. Normal disc spaces. Right-sided neural foramen are patent. Left-sided neuroforaminal narrowing from bony osteophyte from C3-C4 to C5-C6. Prevertebral soft tissues are normal. IMPRESSION: Mild degenerative changes. XR/XR shoulder LT min 2V 11/10/22 IMPRESSION: Normal left shoulder. Assessment & Plan Assessment & Plan (1) Neuropathy of left upper extremity: Code(s): G56.92 - Unspecified mononeuropathy of left upper limb (2) Left shoulder pain: Code(s): M25.512 - Pain in left shoulder (3) Cervical spondylosis: Code(s): M47.812 - Spondylosis without myelopathy or radiculopathy, cervical region Plan EMG and NVC studies are normal and show no findings for cervical radiculopathy. Patient reports decreased axial cervical spine pain wtih previous PT course October-January. Apparently, he is restarting PT for neck pain on 07/06/23 but may benefit more for left shoulder pain related PT. Due to claustrophobia, he was unable to complete left shoulder MRI in January at our facility. I will resubmit MRI order to [facility] for open MRI per patient's request. All questions and concerns have been answered and patient agreed with the plan. Follow up for MRI results and sooner if needed. Orders: Orders MR shoulder LT wo con Today F40.240 - Claustrophobia, G56.92 - Unspecified mononeuropathy of left upper limb, M25.512 - Pain in left shoulder Coding Level of Care Code New Pt Level 4 (22695) Diagnoses Neuropathy of left upper extremity G56.92 Left shoulder pain M25.512 Cervical spondylosis M47.812
[2023-07-02 09:28] VITALS: BP 140/82; PULSE 78; O2SAT 96; BMI 29.7
== END 2023-07-02 09:46 | disposition home or self-care (01) ==
PROVIDERS: PCP Physician Assistant; Visit Provider Nurse Practitioner Family
DX: G56.92 Unspecified mononeuropathy of left upper limb (principal); M25.512 Pain in left shoulder; M47.812 Spondylosis without myelopathy or radiculopathy, cervical region
CPT/HCPCS: 99213

== ENCOUNTER → 2023-07-02 09:18 | Outpatient (BNVA) | payer OTHER, SELFPAY | PROVIDERS: PCP Physician Assistant; Visit Provider Nurse Practitioner Family | DX: G56.92 Unspecified mononeuropathy of left upper limb (principal); M25.512 Pain in left shoulder; M47.812 Spondylosis without myelopathy or radiculopathy, cervical region | CPT/HCPCS: 99212 ==

== ENCOUNTER 2023-07-13 08:48 | Outpatient (AMB) | payer OTHER, SELFPAY ==
[2023-07-13 09:00] VITALS: BP 119/82; PULSE 84; O2SAT 97; BMI 29.7
--- NOTE | 2023-07-13 09:00 | A.OFFVIS_ITS ---
Intake Vital Signs 07/13/23 09:00 Height 5 ft 5 in Weight 178 lb 9.191 oz BMI 29.7 BP 119/82 Blood Pressure Location Lt brachial Position Sitting Pulse 84 Pulse Source Doppler Pulse Oximetry (%) 97 Oxygen Delivery Method Room Air Intake Visit Reasons: Asthma Allergies cat dander [CATS] Allergy (Mild, Verified 07/13/23 09:02) GENERALIZED ALLERGY SYMPTOMS dog dander [DOGS] Allergy (Mild, Verified 07/13/23 09:02) GENERALIZED ALLERGY SYMPTOMS tree and shrub pollen [TREE] Allergy (Mild, Verified 07/13/23 09:02) GENERALIZED ALLERGY SYMPTOMS FROM [place] HPI Asthma HPI Details 42-year-old gentleman, lifetime nonsmoke r, followed for underlying severe persistent asthma, environmental allergies, and MEHNAZ on CPAP. He was started on Dupixent and continue to use Spiriva, Symbicort, Singulair, and albuterol MDI/nebs with reasonable? baseline control of his symptoms. He denies any recent acute exacerbations. [facility] Medical History (Updated 07/02/23 @ 12:06 by ARIELA Torres) Claustrophobia Takotsubo cardiomyopathy Schatzki's ring Gastritis Sleep apnea Diabetes Gastroparesis Migraine headache with aura Enlarged liver Postoperative hypothyroidism Thyroid cancer Vitamin D deficiency Multinodular thyroid Seizures ABPA (allergic bronchopulmonary aspergillosis) Myocardial infarct Seizures Asthma Surgical History History of esophagogastroduodenoscopy (EGD) S/P total thyroidectomy S/P removal of thyroid nodule History of cholecystectomy Family History Maternal Grandmother Emphysema, unspecified Father Diabetes Mother No problems noted. Paternal Grandfather Liver cancer Social History Household Members: Family Housing: Apartment Are you a primary md do resident urgent care to a significant other at home: No Do you presently have visiting nurse or other home services: No Alcohol intake: former Patient Tobacco Use Status: Never used Tobacco e-Cigarette/Vaping Use: Never Used Second Hand Smoke Exposure: No Substance Use Type: Marijuana Advance Directives Date on File: 05/20/23 service: No Current occupational status: disabled Current occupation: rt handed Cognitive needs: No Hearing needs: No Vision needs: No Review of Systems Const Denies daytime sleepiness, Denies excessive sweating, Denies fatigue, Denies fever(s), Denies lethargy, Denies malaise, Denies night sweats, Denies snoring and Denies weight loss Eyes Denies blurry vision and Denies itchy eyes ENT Denies nasal congestion, Denies post nasal drip, Denies sinus pain, Denies sinus pressure and Denies other ( Thrush) Card Denies chest pain, Denies pedal edema, Denies dyspnea, Denies orthopnea and Denies paroxysmal nocturnal dyspnea Resp Denies cough, Denies hemoptysis, Denies excessive phlegm production, Denies dyspnea, Denies snoring and Denies wheezing GI Denies abdominal pain and Denies heartburn Musc Denies myalgias, Denies arthralgias and Denies joint swelling Skin/Breast Denies rash Neuro Denies memory loss and Denies seizure-like activity Psych Denies abnormal sleep pattern, Denies anxiety and Denies memory loss Endo Denies excessive sweating, Denies fatigue and Denies heat intolerance Nico/Lymph Denies easy bruising Aller/Immun Denies itchy eyes, Denies seasonal rhinorrhea and Denies wheezing Physical Exam Vital Signs: Last Vital Signs Pulse 84 07/13/23 09:00 BP 119/82 07/13/23 09:00 Pulse Ox 97 07/13/23 09:00 Oxygen Delivery Method Room Air 07/13/23 09:00 BMI result Body Mass Index 29.7 Const General: no acute distress and alert Nutritional Appearance: not obese Orientation/consciousness: Other orientation findings ( oriented) HEENT Head: Yes atraumatic Eyes General: appearance normal, both eyes and all related structures Sclerae: sclerae normal EOM: EOMs intact bilaterally Neck Neck: Yes supple Lymphatic: no lymphadenopathy noted Resp Effort & Inspection: normal respiratory effort and no use of accessory muscles Auscultation: clear to auscultation bilaterally Cardio Rate: regular rate Rhythm: regular rhythm Heart sounds: no gallops, no murmurs and no rubs Skin General skin exam: other ( warm) Extrem General: No clubbing, No cyanosis and No edema Assessment & Plan Assessment & Plan (1) Severe persistent allergic asthma: Code(s): J45.50 - Severe persistent asthma, uncomplicated Plan: Well controlled current regimen of Dupixent, Spiriva, Spiriva, theophylline, and albuterol MDI. (2) Environmental allergies: Code(s): Z91.09 - Other allergy status, other than to drugs and biological substances Plan: Well controlled on Dupixent. Continue current regimen. (3) MEHNAZ on CPAP: Code(s): G47.33 - Obstructive sleep apnea (adult) (pediatric); Z99.89 - Dependence on other enabling machines and devices Plan: Well controlled on current CPAP therapy. Continue CPAP therapy. Coding Level of Care Code Est Pt Level 4 (14951) Diagnoses Severe persistent allergic asthma J45.50 Environmental allergies Z91.09 MEHNAZ on CPAP G47.33; Z99.89
== END 2023-07-13 09:10 | disposition home or self-care (01) ==
PROVIDERS: PCP Physician Assistant; Visit Provider Internal Medicine Pulmonary Disease
DX: J45.50 Severe persistent asthma, uncomplicated (principal); Z91.09 Other allergy status, other than to drugs and biological substances; G47.33 Obstructive sleep apnea (adult) (pediatric); Z99.89 Dependence on other enabling machines and devices
CPT/HCPCS: 99214

== ENCOUNTER → 2023-07-13 08:48 | Outpatient (BNVA) | payer OTHER, SELFPAY | PROVIDERS: Visit Provider Internal Medicine Pulmonary Disease | DX: J45.50 Severe persistent asthma, uncomplicated (principal); G47.33 Obstructive sleep apnea (adult) (pediatric); Z91.09 Other allergy status, other than to drugs and biological substances; Z99.89 Dependence on other enabling machines and devices | CPT/HCPCS: 99212 ==

== ENCOUNTER 2023-07-30 07:56 | Outpatient (AMB) | payer OTHER, SELFPAY ==
--- NOTE | 2023-07-30 08:13 | A.OFFVIS_ITS ---
Intake Vital Signs 07/30/23 08:18 Height 5 ft 5 in Weight 177 lb BMI 29.5 BP 107/71 Blood Pressure Location Lt brachial Position Sitting Pulse 88 Intake Visit Reasons: 3month f/u for GERD Intake Note: Patient 3 month fololw up for GERD. Patient was admitted at [facility] x 2 day due vomiting with blood. Patient cc: vomiting with blood on and off, GERD, abdominal pain with bloating and between diarrhea and constipation. Health Care Analyst Required: No Accompanied by: Self / Same As Patient Allergies cat dander [CATS] Allergy (Mild, Verified 07/30/23 08:12) GENERALIZED ALLERGY SYMPTOMS dog dander [DOGS] Allergy (Mild, Verified 07/30/23 08:12) GENERALIZED ALLERGY SYMPTOMS tree and shrub pollen [TREE] Allergy (Mild, Verified 07/30/23 08:12) GENERALIZED ALLERGY SYMPTOMS FROM [place] HPI 3month f/u for GERD HPI Details LAST VISIT Gastritis Diagnosed with gastritis on upper endoscopy and of january. Patient was unable to get any PPI due to his insurance until just about a month ago or so. He has been taking it daily as prescribed. Patient also is taking sucralfate b.i.d.. Patient reports to be feeling little better. Discussed with patient avoiding dietary triggers. Avoid anything with tomato sauce. Avoid carbs as much as possible. Barretts esophagus Diagnosed with Ramirez's esophagus on upper endoscopy. Continue PPI treatment as mentioned above. Avoid dietary triggers. Avoid laying down for minimal 3 hours after meals. GERD (gastroesophageal reflux disease) Constipation Continue Linzess. Patient was also encouraged to increase fluid intake and activity to promote better bowel motility. Gastroparesis Mild gastroparesis diagnosed on gastric emptying study. Most likely due to slow bowel emptying. Patient is taking Linzess. Continues to occasionally feel like he does not empty completely. He can take Dulcolax tablets in the evening He was encouraged to take small meals and more often. Avoid food that is high in fiber. Drink plenty of fluids. I will see patient in 3 months, sooner on as needed basis. Patient is agreeable to this plan and verbalizes understanding of instructions. He was given the opportunity to ask questions and all questions answered. ? Thank you for allowing me to participate in his care Plan Medications New bisacodyl (Dulcolax (bisacodyl)) 10 mg (2 x 5 mg) PO BEDTIME 180 tabs 4RF Discontinued polyethylene glycol 3350 Discontinued Reason: Patient no longer taking 17 grams PO DAILY 100 ea 3RF TODAY'S VISIT: Patient is here today for follow-up. Patient was admitted in May for epigastric discomfort and vomiting. Patient continues to feel nauseous. Occasional blood seen when he vomits. Patient also reports hematochezia occasionally. Patient reports occasional loose stools and constipation. Those symptoms are on and off depending on what he eats. Patient reports occasional postprandial abdominal bloating. Patient reports that he is taking Creon and he continues to have symptoms. Patient reports that he avoids lactose, however he continues to eat bread. Patient does not recall if anyone in the family had colon cancer. Patient had upper endoscopy done in the past and did well with anesthesia. No history of sleep apnea [facility] Medical History (Updated 07/02/23 @ 12:06 by ARIELA Torres) Claustrophobia Takotsubo cardiomyopathy Schatzki's ring Gastritis Sleep apnea Diabetes Gastroparesis Migraine headache with aura Enlarged liver Postoperative hypothyroidism Thyroid cancer Vitamin D deficiency Multinodular thyroid Seizures ABPA (allergic bronchopulmonary aspergillosis) Myocardial infarct Seizures Asthma Surgical History History of esophagogastroduodenoscopy (EGD) S/P total thyroidectomy S/P removal of thyroid nodule History of cholecystectomy Family History Maternal Grandmother Emphysema, unspecified Father Diabetes Mother No problems noted. Paternal Grandfather Liver cancer Social History Household Members: Family Housing: Apartment Are you a primary chiropractic care to a significant other at home: No Do you presently have visiting nurse or other home services: No Alcohol intake: former Patient Tobacco Use Status: Never used Tobacco e-Cigarette/Vaping Use: Never Used Second Hand Smoke Exposure: No Substance Use Type: Marijuana Advance Directives Date on File: 05/20/23 service: No Current occupational status: disabled Current occupation: rt handed Cognitive needs: No Hearing needs: No Vision needs: No Review of Systems Const Denies weight gain and Denies weight loss ENT Reports no additional complaints, Denies dysphagia and Denies odynophagia Card Reports no additional complaints Resp Reports no additional complaints GI Denies abdominal pain, Denies belching, Denies melena, Reports bloating, Denies change in bowel habits, Denies dysphagia, Denies excessive flatus, Denies dyspepsia, Reports heartburn, Denies diarrhea, Reports loose stools, Denies nausea, Denies odynophagia and Denies vomiting Reports no additional complaints Musc Reports no additional complaints Neuro Reports no additional complaints Psych Reports no additional complaints Endo Reports no additional complaints Physical Exam Vital Signs: Last Vital Signs Pulse 88 07/30/23 08:18 BP 107/71 07/30/23 08:18 BMI result Body Mass Index 29.5 Const General: healthy appearing, no acute distress and well developed Nutritional Appearance: obese Orientation/consciousness: patient oriented x3 HEENT Head: Yes normal to inspection, Yes normocephalic and Yes atraumatic Face and sinus: Yes normal facial exam Mouth: Normal oral and palatal mucosa present Throat: Yes posterior oropharynx normal, Yes tonsils normal and Yes uvula midline Eyes General: appearance normal, both eyes and all related structures Neck Neck: Yes normal visual inspection, Yes full ROM and Yes trachea midline Thyroid: Thyroid normal Resp Effort & Inspection: normal respiratory effort, able to speak in complete sentences, no tracheal deviation and symmetric chest movement Auscultation: clear to auscultation bilaterally Cardio Rate: regular rate Heart sounds: S1 normal heart sound present and S2 normal heart sound present GI Inspection: Yes normal to inspection, No distended and Yes obesity Palpation (GI): Soft to palpation, not firm, nontender and No hepatosplenomegaly present Auscultation: normal bowel sounds General: Yes no CVA tenderness Back/Spine/Pelvis Back: no CVA tenderness Skin General skin exam: elasticity normal, turgor normal and dry skin Neuro General: patient oriented x3 Psych Appearance: grossly normal Mental Status: mental status grossly normal Assessment & Plan Assessment & Plan (1) Gastritis: Code(s): K29.70 - Gastritis, unspecified, without bleeding Qualifiers: Gastritis type: superficial Chronicity: unspecified Gastritis bleeding: without bleeding Qualified Code(s): K29.30 - Chronic superficial gastritis without bleeding (2) Barretts esophagus: Code(s): K22.70 - Ramirez's esophagus without dysplasia Qualifiers: Ramirez's esophagus type: without dysplasia Qualified Code(s): K22.70 - Ramirez's esophagus without dysplasia (3) GERD (gastroesophageal reflux disease): Code(s): K21.9 - Gastro-esophageal reflux disease without esophagitis Qualifiers: Esophagitis presence: esophagitis presence not specified Qualified Code(s): K21.9 - Gastro-esophageal reflux disease without esophagitis (4) Hematochezia: Code(s): K92.1 - Melena (5) Nausea: Code(s): R11.0 - Nausea Plan Patient will be sent for upper endoscopy and colonoscopy. Patient has been continuing with nausea vomiting. Occasional blood when vomiting. Currently he is treated with omeprazole. Patient states that it were the same and does not see any improvement. Will send script for ursodiol b.i.d.. Patient also has rectal bleed. Occasional loose stools then constipation, however reports that Linzess helps. Will send him for diagnostic colonoscopy. Patient was diagnosed with takotsubo cardiomyopathy decreased EF to 35%, however patient denies any cardiac symptoms. Patient was seen for elevated troponins in the hospital by Dr. Marroquin who reviewed his tests and no need for clearance before going for the procedure. Spoke with the chiropractic care today. I will see patient after the procedure, sooner on as needed basis. He is agreeable to this plan and verbalizes understanding of instructions. He was given the opportunity to ask questions and all questions answered Thank you for allowing me to participate in his care Medications: New ursodiol 250 mg PO BID 60 tabs 2RF polyethylene glycol 3350 (Miralax) As directed by gastroenterology department at [facility] 238 grams PO ONCE 238 grams 0RF Z12.11 - Encounter for screening for malignant neoplasm of colon bisacodyl (Dulcolax (bisacodyl)) take 4 tabs at noon the day before your colonoscopy 20 mg (4 x 5 mg) PO ONCE 1 day 4 tabs 0RF Z12.11 - Encounter for screening for malignant neoplasm of colon Refilled sucralfate Please take it at noon time and at bedtime 10 mL PO BID 400 mL 3RF K21.9 - Gastro-esophageal reflux disease without esophagitis Discontinued rabeprazole Discontinued Reason: Patient Completed Course 20 mg PO DAILY 90 tabs 2RF Coding Level of Care Code Est Pt Level 4 (36510) Diagnoses Superficial gastritis without hemorrhage, unspecified chronicity K29.30 Gastritis type: superficial Chronicity: unspecified Gastritis bleeding: without bleeding Ramirez's esophagus without dysplasia K22.70 Ramirez's esophagus type: without dysplasia Gastroesophageal reflux disease, unspecified whether esophagitis present K21.9 Esophagitis presence: esophagitis presence not specified Hematochezia K92.1 Nausea R11.0 Time Spent (min) 40 Comment 25 minute spent with patient and additional 15 minutes spent reviewing his records
[2023-07-30 08:18] VITALS: BP 107/71; PULSE 88; BMI 29.5
== END 2023-07-30 09:06 | disposition home or self-care (01) ==
PROVIDERS: PCP Physician Assistant; Visit Provider Nurse Practitioner Family
DX: K29.30 Chronic superficial gastritis without bleeding (principal); K22.70 Barrett's esophagus without dysplasia; K21.9 Gastro-esophageal reflux disease without esophagitis; K92.1 Melena; R11.0 Nausea
CPT/HCPCS: 99214

== ENCOUNTER → 2023-07-30 07:56 | Outpatient (BNVA) | payer OTHER, SELFPAY | PROVIDERS: PCP Physician Assistant; Visit Provider Nurse Practitioner Family | DX: K29.30 Chronic superficial gastritis without bleeding (principal); K22.70 Barrett's esophagus without dysplasia; K21.9 Gastro-esophageal reflux disease without esophagitis; K92.1 Melena; R11.0 Nausea | CPT/HCPCS: 99212 ==

== ENCOUNTER 2023-08-01 07:00 | Outpatient (RCR) | payer OTHER, SELFPAY ==
--- NOTE | 2023-07-06 10:59 | MHC.PT.EP ---
[facility] [place] Office [place] Office [place] Office [address] Colin Og [address] [phone] F: [phone] F: [phone] F: [phone] F: [phone] Physical Therapy Plan of Care Date of Evaluation: 07/06/23 Date of Surgery: Diagnosis: CERVICAL RADICULOPATHY Assessment: 42 YO MALE REF TO PT FOR CERVICAL RADICULOPATHY WITH Lt UE RADICUPATHY, EXACERBATED AFTER SUSTAINING A FALL DURING A SEIZURE IN 05/2023. HE HAS HAD PRIOR PT IN -01/2023 FOR SHOULDER PAIN W SOME RELIEF. THE Pt IS RIGHT HAND DOMINANT, UNEMPLOYED AND SPENDS HIS DAYS AT HOME. OBJECTIVE FINDINGS: LIMITED CERV AROM (HYPER MOBILE UPPER CERV SPINE AND HYPOMOBILE LOWER CERV), DECR POSTURAL AWARENES/ (+) ASYMMETRY; (+) CERV/ UT SOFT TISSUE IRRITABILITY, (+) RADICULAR SXS INTO LEFT UE-> HAND, DECR POSTURAL AWARENESS, FLUCTUATING PAIN IN CERV PS/ UT. FUNCTIONAL LIMITATIONS INCLUDE DIFFIC SLEEPING, W PROLONGED SITTING, LIFTING AND CARRYING OBJECTS, AND SL LEFT. Pt IS A GOOD PT CANDIDATE TO GUIDE HIM IN ADDRESSING THE ABOVE FINDINGS, PAIN MGMT, DEV A PROGRESSIVE HEP AND SELF-SX MGMT STRATEGIES/ MAXIMIZING FUNCTIONAL INDEPENDENCE W RESPECT TO SEIZURE PRECAUTIONS. Frequency and Duration: The patient will be seen 2 x WK x 4 WKS Short Term Goals: *DECR PAIN IN CERV REGION TO A 2-3/10 AND Lt UE RADIC SXS DECR BY 75% *Pt INDEP W SELF-CORRECT POSTURE IN VARIED POSITIONS *Pt INCR AWARENESS AND ACTIV OF SCAP STABILIZERS/ MID-LOWER TRAP MM *IMPROVE ROM Lt UE AND CERV AREA REDUCE SOFT TISSUE TENSION Assisted Goals: *Pt INDEP W POSTURAL SELF- CORRECTION AND SX MGMT *Pt DEMON IMPROVED ADL/ FUNCTIONAL MOB NASIM EVIDENT W IMPROVED NPDI (AT EVAL 33/50) *IMPROVE Lt UE / SCAP STRENGTH BY 1 GRADE Treatment Plan: Modalities to reduce pain, spasms and effusion. Manual therapy to restore motion and function. Therapeutic exercise to improve strength and flexibility. Neuromuscular re-education for posture and balance. Therapeutic activities to return to functional activities of daily living. Electronically signed by: LIBBY CLARK PT Please sign and return to therapist. Thank you for your referral.
--- NOTE | 2023-09-04 14:38 | MHC.PT.DC ---
[facility] [place] Office House Office [place] Office [address] Colin Og 140 [facility] [phone] F: [phone] F: [phone] F: [phone] F: [phone] Physical Therapy Discharge Report Diagnosis: CERVICAL RADICULOPATHY Date of Surgery: Date of Evaluation: 07/06/23 Date of Discharge: 09/04/23 Treatments to Date: 8 Cancellations to Date: 1 No Shows to Date: 0 Discharge Status: Improved Function Independent with HEP Patient Elected to Stop Discharge Summary: THE Pt HAS DEMON PROGRESS IN PT-> HE HAS A GREATER AWARENESS OF POSTURE AND POSITIONAL CORRECTION TO REDUCE SOFT TISSUE TENSION IN HIS NECK AND BACK. THE Pt HAS A HEP AND HAS A GOOD UNDERSTANDING OF HOW IMPORTANT HEP COMPLIANCY IS. THE Pt HAS MET HIS PT GOALS TO MAX POTENTIAL AT THIS TIME. Electronically signed by: Mignon Melissa, PT Please sign and return to therapist. Thank you for your referral.
== END 2023-09-04 14:40 | disposition home or self-care (01) ==
LOC: HO.PT 07:00
PROVIDERS: PCP Physician Assistant; Visit Provider Physician Assistant
DX: M54.12 Radiculopathy, cervical region (principal)
CPT/HCPCS: 97110; 97140; 97162; 97530

== ENCOUNTER 2023-08-01 12:22 | Day surgery (SDC) | payer OTHER, SELFPAY ==
--- NOTE | 2023-07-31 13:28 | HO.ANESPROP2 ---
Documented by User: Elizabeth Orozco NP 07/31/23 13:42 HPI - Anesthesia Eval Consult details Narrative: 42yo M for Upper Endoscopy and Colonoscopy Follows [facility] for Takotsubo (EF normalized now) and hx NSTEMI. Stable at last office eval 04/2023. CP noncardiac (likely rheum involvement). 1 year f/[place]izures [place] [facility] [place] for breakthrough seizures d/t med noncompliance. Per PCP office visit on 06/14/23, no seizure activity post-discharge [facility] [place] asthma and MEHNAZ. Stable at last eval 06/2023. PMFSH Active Problems Active Problems: All Active Problems (Updated 07/02/23 @ 12:06 by ARIELA Torres) Cervical spondylosis (Acute) Claustrophobia (Acute) Left shoulder pain (Acute) Gastritis (Acute) Barretts esophagus (Acute) Severe persistent allergic asthma (Acute) Environmental allergies (Acute) MEHNAZ on CPAP (Acute) Seizure disorder (Acute) Cardiomyopathy (Acute) Asthma (Acute) Hx of myocardial infarction (Acute) GERD (gastroesophageal reflux disease) (Acute) Thyroid nodule (Acute) Multiple thyroid nodules (Acute) MDD (major depressive disorder) (Acute) Right shoulder tendonitis (Acute) Cervical radiculopathy (Acute) Adhesive capsulitis of right shoulder (Acute) Screening for diabetes mellitus (DM) (Acute) Screening for hypothyroidism (Acute) Cervical radiculopathy (Acute) Adhesive capsulitis of right shoulder (Acute) Thyroid cancer (Acute) Abrasion hand (Acute) Hypothyroidism (Acute) Annual physical exam (Acute) Pain in right hip (Acute) Dysphagia (Acute) Abdominal bloating (Acute) Constipation (Acute) Impaired glucose metabolism (Acute) Hypophosphatemia (Acute) Sensorineural hearing loss (SNHL) of both ears (Acute) Axillary nerve injury (Acute) Neuropathy of left upper extremity (Acute) Carpal tunnel syndrome on left (Acute) Cubital tunnel syndrome on left (Acute) Throat disorder (Acute) Gastroparesis (Acute) Migraine headache with aura (Acute) Postoperative hypothyroidism (Acute) Thyroid cancer (Acute) Myocardial infarct (Acute) Vitamin D deficiency (Acute) Multinodular thyroid (Acute) Past Medical History Medical History (Updated 07/02/23 @ 12:06 by ARIELA Torres) Claustrophobia Takotsubo cardiomyopathy Schatzki's ring Gastritis Sleep apnea Diabetes Gastroparesis Migraine headache with aura Enlarged liver Postoperative hypothyroidism Thyroid cancer Vitamin D deficiency Multinodular thyroid Seizures ABPA (allergic bronchopulmonary aspergillosis) Myocardial infarct Seizures Asthma Family History Family History Maternal Grandmother Emphysema, unspecified Father Diabetes Mother No problems noted. Paternal Grandfather Liver cancer Family history of problems with anesthesia: No Surgical History Surgical History History of esophagogastroduodenoscopy (EGD) S/P total thyroidectomy S/P removal of thyroid nodule History of cholecystectomy History of Problems with Anesthesia: No Social History Social History Household Members: Family Housing: Apartment Are you a primary career development engineer to a significant other at home: No Do you presently have visiting nurse or other home services: No Alcohol intake: former Patient Tobacco Use Status: Never used Tobacco e-Cigarette/Vaping Use: Never Used Second Hand Smoke Exposure: No Use of substances other than those prescribed or required for medical reasons: Yes Substance Use Type: Marijuana Substance Use Frequency: Socially Are you DNR?: No Advance Directives: No Advance Directives Information Provided: Yes Advance Directives Date on File: 05/20/23 Recently lost weight without trying: No service: No Current occupational status: disabled Current occupation: rt handed Cognitive needs: No Hearing needs: No Vision needs: No Meds Allergies Allergy/AdvReac Type Severity Reaction Status Date / Time cat dander [CATS] Allergy Mild GENERALIZED Verified 07/30/23 08:12 ALLERGY SYMPTOMS dog dander [DOGS] Allergy Mild GENERALIZED Verified 07/30/23 08:12 ALLERGY SYMPTOMS tree and shrub pollen [TREE] Allergy Mild GENERALIZED Verified 07/30/23 08:12 ALLERGY SYMPTOMS FROM [place] Home Medications Medication Instructions Recorded Confirmed Last Taken Type divalproex 500 mg tablet,delayed 1,000 mg PO QPM 05/20/23 06/14/23 Unknown History release divalproex 500 mg tablet,delayed 1,500 mg PO QAM 05/20/23 06/14/23 Unknown History release gabapentin 300 mg capsule 300 mg PO BEDTIME PRN Pain 05/20/23 06/14/23 Unknown History levetiracetam 1,000 mg tablet 1,000 mg PO BID 05/20/23 06/14/23 Unknown History tiotropium bromide 2.5 2 puff PO DAILY PRN Shortness Of 05/20/23 06/14/23 Unknown History mcg/actuation mist for inhalation Breath (Spiriva Respimat) Exam Exam Date and Time: July 31, 2023 1328 Pertinent Lab Results Pertinent Lab Results: Laboratory Tests 05/22/23 05:42 WBC 7.6 Hgb 11.6 L Hct 34.1 L Plt Count 250 Sodium 142 Potassium 4.0 Chloride 111 H Carbon Dioxide 23 BUN 9 Creatinine 0.77 Narrative Narrative: ECHO 2021 1. Nml LV function 2 Overal LV systolic function is nml with EF 52-60% 3. Diastolic filling pattern is normal 4. No change c/w 2020 Assessment and Plan Assessment Anesthesia Assessment: Chart Reviewed Final Anesthetic Review Family History of Problems with Anesthesia: No History of Problems with Anesthesia: No Documented by User: Michele Bautista MD 08/01/23 16:50 PMFSH Past Medical History Medical History (Updated 07/02/23 @ 12:06 by ARIELA Torres) Claustrophobia Takotsubo cardiomyopathy Schatzki's ring Gastritis Sleep apnea Diabetes Gastroparesis Migraine headache with aura Enlarged liver Postoperative hypothyroidism Thyroid cancer Vitamin D deficiency Multinodular thyroid Seizures ABPA (allergic bronchopulmonary aspergillosis) Myocardial infarct Seizures Asthma Functional capacity: independent ambulation Family History Family History Maternal Grandmother Emphysema, unspecified Father Diabetes Mother No problems noted. Paternal Grandfather Liver cancer Surgical History Surgical History History of esophagogastroduodenoscopy (EGD) S/P total thyroidectomy S/P removal of thyroid nodule History of cholecystectomy Social History Social History Household Members: Family Housing: Apartment Are you a primary career development engineer to a significant other at home: No Do you presently have visiting nurse or other home services: No Alcohol intake: former Patient Tobacco Use Status: Never used Tobacco e-Cigarette/Vaping Use: Never Used Second Hand Smoke Exposure: No Use of substances other than those prescribed or required for medical reasons: Yes Substance Use Type: Marijuana Substance Use Frequency: Socially Are you DNR?: No Advance Directives: No Advance Directives Information Provided: Yes Advance Directives Date on File: 05/20/23 Recently lost weight without trying: No service: No Current occupational status: disabled Current occupation: rt handed Cognitive needs: No Hearing needs: No Vision needs: No Meds Allergies Allergy/AdvReac Type Severity Reaction Status Date / Time cat dander [CATS] Allergy Mild GENERALIZED Verified 07/30/23 08:12 ALLERGY SYMPTOMS dog dander [DOGS] Allergy Mild GENERALIZED Verified 07/30/23 08:12 ALLERGY SYMPTOMS tree and shrub pollen [TREE] Allergy Mild GENERALIZED Verified 07/30/23 08:12 ALLERGY SYMPTOMS FROM [place] Home Medications Medication Instructions Recorded Confirmed Last Taken Type divalproex 500 mg tablet,delayed 1,000 mg PO QPM 05/20/23 06/14/23 Unknown History release divalproex 500 mg tablet,delayed 1,500 mg PO QAM 05/20/23 06/14/23 Unknown History release gabapentin 300 mg capsule 300 mg PO BEDTIME PRN Pain 05/20/23 06/14/23 Unknown History levetiracetam 1,000 mg tablet 1,000 mg PO BID 05/20/23 06/14/23 Unknown History tiotropium bromide 2.5 2 puff PO DAILY PRN Shortness Of 05/20/23 06/14/23 Unknown History mcg/actuation mist for inhalation Breath (Spiriva Respimat) Exam Airway Mallampati Class: IV Loose/Missing/Broken Teeth: Yes Assessment and Plan Assessment Anesthesia Assessment: Anesthesia Plan Discussed Final Anesthetic Review NPO: Yes ASA Class: IV Final Preanesthetic Review: Meds/Allgs Chart Reviewed, Consent Obtained/Reviewed and Anes Risks/Benef Reviewed Patient Risk: High Procedure Risk: Intermediate Anesthetic Plan Anesthetic Plan: MAC: and Agree w/ Assess. and Plan Disposition: Standard PACU
[2023-08-01 13:40] VITALS: BP 151/90; PULSE 71; RESP 20; TEMP 36.4; O2SAT 95
[2023-08-01 13:46] VITALS: BMI 29.8
--- NOTE | 2023-08-01 13:50 | MHC.SHP ---
Pre-Procedural Eval Section A Date of Service: 08/01/23 Section B Chief Complaint: Vomiting, unspecified Details of Present Illness: colon screening Relevant Family History (Specify if Yes): No Relevant Social History: None Present Medications: see Short Stay Collaborative assessment Medical History: Significant History (Claustrophobia Takotsubo cardiomyopathy Schatzki's ring Gastritis Sleep apnea Diabetes Gastroparesis Migraine headache with aura Enlarged liver Postoperative hypothyroidism Thyroid cancer Vitamin D deficiency Multinodular thyroid Seizures ABPA (allergic bronchopulmonary aspergillosis) Myocardial inf) History of Previous Operations: Relevant previous surgery/procedure and date(s) (History of esophagogastroduodenoscopy (EGD) S/P total thyroidectomy S/P removal of thyroid nodule History of cholecystectomy) Allergies: Allergies Allergy/AdvReac Type Severity Reaction Status Date / Time cat dander [CATS] Allergy Mild GENERALIZED Verified 07/30/23 08:12 ALLERGY SYMPTOMS dog dander [DOGS] Allergy Mild GENERALIZED Verified 07/30/23 08:12 ALLERGY SYMPTOMS tree and shrub pollen [TREE] Allergy Mild GENERALIZED Verified 07/30/23 08:12 ALLERGY SYMPTOMS FROM [place] Review of Systems Sugical H&P ROS: Negative: Constitution, Cardiovascular, Respiratory, Neurological, Psychiatric, Hem-Onc, Allergic/Immunologic, Gastrointestinal, Genitourinary, Musculoskeletal, Integumentary, Endocrine and Eyes/Ears/Nose/Throat Exam Surgical H&P Exam: Normal: HEENT, Normal: Heart, Normal: Lungs, Normal: Extremities, Normal: Abdomen, Normal: Skin and Normal: Neurological Plan Diagnosis/Plan: Unchanged I have reviewed the history and physical and performed a pertinent physical examination on my patient. No changes have occurred unless specified. Time Spent With Patient Time: Total time managing care of this patient today ____ minutes.
[2023-08-01 14:08] LABS: Glucose, Whole Blood 114 mg/dL (60-115)
[2023-08-01] MEDS: Lactated Ringers 1,000 ML 100 ML IVCONT (14:22)
--- NOTE | 2023-08-01 15:16 | P.OP_ITS ---
Operative Note Operative Note Date of Service: 08/01/23 Narrative: Operative Information Procedure Description: EGD, Colonoscopy Indication: hx of barretts, nausea, colon screening Anesthesia: MAC FLEXIBLE TRANSORAL UPPER GASTROINTESTINAL ENDOSCOPY AND COLONOSCOPY PROCEDURE NOTE UPPER ENDOSCOPY Consent: Indications for the procedure and potential complications of bleeding, perforation, reaction to medications and missed diagnosis were discussed with the patient and informed consent was obtained. Instrument: Olympus GIF H 190 J mid size upper endoscope Monitoring: Vital signs and clinical assessment, continuous EKG monitoring, Pulse oximetry, Carbon Dioxide monitoring and blood pressure monitoring were done throughout the procedure. Procedure: The patient was placed in the left lateral decubitis position and pre-procedure medications were administered and a bite block was placed. The endoscope was inserted into the mouth and advanced under direct vision to the third part of duodenum. A careful inspection was made as the upper endoscope was withdrawn including a retroflexed examination of the proximal stomach; Findings and interventions are described below. Findings: Larynx:normal Esophagus: GE junction at 34 cm, diaphragm hiatus at 37 cm, consistent with 3 cm sliding hiatal hernia, schatzki ring noted. Esophgeal inlet patches noted as well. There was a few tongues of salmon pink tissue suspicious for short segment Barretts (about 2-3 cm), bx taken as well as brushings for WATS. The esophagus also had a sigmoid shaped curve at the distal end. Stomach: Patchy gastric erythema. Biopsies were obtained. Grade 3 flap valve on retroflexed examination of the cardia with incompetent LES. There was bile acid in the stomach. The pyloric outlet was dilated to 20 mm with balloon over a wire, no tears seen Duodenum: Patchy erythema, bx taken Intervention: Biopsies as noted above, balloon dilation over wire COLONOSCOPY Instrument: Olympus variable stiffness pediatric scope 190L Colonoscopy Monitoring: Vital signs and clinical assessment, continuous EKG monitoring, Pulse oximetry, Carbon Dioxide monitoring and blood pressure monitoring were done throughout the procedure. Colon withdrawal time was 7 minutes. Procedure: The patient was placed in the left lateral decubitis position and pre-procedure medications were administered. After a digital rectal examination of the ano-rectum, the video colonoscope was inserted into the rectum and advanced through the colon to the cecum/TI. The colonoscope was slowly withdrawn in a retrograde panoramic fashion and the colon mucosa was carefully examined including a retroflexed view of the rectum. Findings and interventions are described below. Procedure Difficulty:easy Findings: Terminal Ileum-normal Cecum:normal Ascending Colon: normal Transverse Colon -normal Descending Colon:normal Sigmoid Colon: normal Rectum: Retroflexion with small internal hemorrhoids, grade I Anorectum - normal Colon preparation: [place] Bowel Preparation Scale Right colon; 1-2 Transverse colon: 2 Left colon; 2 (0 = Unprepared colon segment with mucosa not seen due to solid stool that cannot be cleared. 1 = Portion of mucosa of the colon segment seen, but other areas of the colon segment not well seen due to staining, residual stool and/or opaque liquid. 2 = Minor amount of residual staining, small fragments of stool and/or opaque liquid, but mucosa of colon segment seen well. 3 = Entire mucosa of colon segment seen well with no residual staining, small fragments of stool or opaque liquid) Impression and Post Procedure Diagnosis: Endoscopy Findings: esophageal inlet patches schatzki ring hiatal hernia incompetent LES barretts bile acid gastric reflux gastritis duodenitis Colonoscopy Findings: internal hemorrhoids Plan: Await Pathology results Repeat Colonoscopy in 5 years due to fair prep on right or earlier if clinically indicated High fiber diet leaflet avoid straining at stool, epsom salts and sitz bath, anusol supps or cream GERD precautions consider surgical referral for partial fundoplication, vs medical management if barretts confirmed without dysplasia repeat EGD in 2-3 years ensure PPi compliance Above findings were reviewed with the patient and relevant handouts were provided if indicated.
[2023-08-01 15:51] VITALS: BP 133/88; PULSE 96; RESP 16; TEMP 36.3; O2SAT 97
[2023-08-01 16:06] VITALS: BP 129/87; PULSE 81; RESP 16; O2SAT 97
[2023-08-01 16:21] VITALS: BP 134/87; PULSE 81; RESP 18; O2SAT 97
[2023-08-01 16:36] VITALS: BP 130/84; PULSE 82; RESP 16; TEMP 36.6; O2SAT 97
== END 2023-08-01 17:17 | disposition home or self-care (01) ==
PROVIDERS: PCP Physician Assistant; Visit Provider Internal Medicine Gastroenterology
PROC: (CPT 45378; principal; 2023-08-01 14:00)
DX: Z12.11 Encounter for screening for malignant neoplasm of colon (principal); K59.00 Constipation, unspecified; K64.0 First degree hemorrhoids; R11.2 Nausea with vomiting, unspecified; K22.70 Barrett's esophagus without dysplasia; K29.50 Unspecified chronic gastritis without bleeding; K29.80 Duodenitis without bleeding; K44.9 Diaphragmatic hernia without obstruction or gangrene; K22.2 Esophageal obstruction; Q39.8 Other congenital malformations of esophagus; K22.4 Dyskinesia of esophagus; I51.81 Takotsubo syndrome; I25.2 Old myocardial infarction; G47.33 Obstructive sleep apnea (adult) (pediatric); F40.240 Claustrophobia; E11.9 Type 2 diabetes mellitus without complications; E55.9 Vitamin D deficiency, unspecified; G40.909 Epilepsy, unspecified, not intractable, without status epilepticus; J45.50 Severe persistent asthma, uncomplicated; Z91.148 Patient's other noncompliance with medication regimen for other reason; Z85.850 Personal history of malignant neoplasm of thyroid; E89.0 Postprocedural hypothyroidism; Z79.51 Long term (current) use of inhaled steroids; Z79.899 Other long term (current) drug therapy; Z90.49 Acquired absence of other specified parts of digestive tract
CPT/HCPCS: 45378; 43245; 43239; 82947; 88305; 88342; C1726; J2704; J3010

== ENCOUNTER → 2023-08-01 12:22 | Outpatient (BNV) | payer OTHER, SELFPAY | PROVIDERS: PCP Physician Assistant; Visit Provider Internal Medicine Gastroenterology | DX: Z12.11 Encounter for screening for malignant neoplasm of colon (principal); K22.70 Barrett's esophagus without dysplasia; K22.2 Esophageal obstruction; K29.90 Gastroduodenitis, unspecified, without bleeding; Q39.8 Other congenital malformations of esophagus; K64.0 First degree hemorrhoids | CPT/HCPCS: 43249; 45378 ==

== ENCOUNTER 2023-08-01 23:22 | Emergency (ER) | payer OTHER, SELFPAY ==
--- NOTE | 2023-08-01 | ECG_ITS ---
Test Reason : SOB Blood Pressure : / mmHG Vent. Rate : 069 BPM Atrial Rate : 069 BPM P-R Int : 122 ms QRS Dur : 088 ms QT Int : 382 ms P-R-T Axes : 006 004 192 degrees QTc Int : 409 ms Normal sinus rhythm Nonspecific T wave abnormality Abnormal ECG When compared with ECG of 20-MAY-2023 07:12, Vent. rate has decreased BY 54 BPM Criteria for Septal infarct are no longer Present ST no longer elevated in Lateral leads Nonspecific T wave abnormality now evident in Inferior leads Nonspecific T wave abnormality, worse in Lateral leads Referred By: Generic ED Physician Electronically Signed By:LEONID VALDEZ MD
--- NOTE | ~2023-08-01 | XR_ITS ---
EXAMINATION: XR CHEST CLINICAL INFORMATION: Shortness of breath. COMPARISON: 04/15/2023. TECHNIQUE: 2 views of the chest were obtained. FINDINGS: No significant abnormality is noted involving the heart, lungs, mediastinum, bony thorax or soft tissues. XR/XR chest 2V IMPRESSION: Unremarkable examination.
[2023-08-01 23:26] VITALS: BP 128/92; PULSE 81; RESP 18; TEMP 36.6; O2SAT 98; BMI 29.7
[2023-08-01] MEDS: Albuterol Sulfate 2.5 MG, Albuterol Sulfate (0.083%) 2.5 MG 5 MG INHALE (23:59)
[2023-08-02] VITALS: PULSE 94; RESP 18; O2SAT 97
[2023-08-02 00:03] VITALS: PULSE 84; RESP 12; O2SAT 96
[2023-08-02] MEDS: Sucralfate Oral Suspension 1 GM/10 ML ORAL.SUSP PO (00:07)
--- NOTE | 2023-08-02 00:21 | ED_ITS ---
HPI - General Adult General Chief complaint: Dyspnea Stated complaint: SoB Time Seen by Provider: 08/01/23 23:44 Source: patient Mode of arrival: ambulatory History of Present Illness HPI narrative: 42-year-old male who underwent upper endoscopy this afternoon and now presents with feeling as though his throat is swollen and painful and also reports shortness of breath with wheezing. Patient states he also experiences significant amount of reflux with burning and he noted there was blood in the reflex. Related Data Home Medications Medication Instructions Recorded Confirmed divalproex 500 mg tablet,delayed 1,000 mg PO QPM 05/20/23 08/02/23 release divalproex 500 mg tablet,delayed 1,500 mg PO QAM 05/20/23 06/14/23 release gabapentin 300 mg capsule 300 mg PO BEDTIME PRN Pain 05/20/23 06/14/23 levetiracetam 1,000 mg tablet 1,000 mg PO BID 05/20/23 08/02/23 tiotropium bromide 2.5 2 puff PO DAILY PRN Shortness Of 05/20/23 06/14/23 mcg/actuation mist for inhalation Breath (Spiriva Respimat) Previous Rx's Medication Instructions Recorded simethicone 80 mg chewable tablet 80 mg PO BID-QID PRN abdominal 04/14/22 (Gas Relief 80 (simethicone)) distention #30 tabs carvedilol 3.125 mg tablet 3.125 mg PO BID 90 days #180 tabs 11/08/22 dupilumab 300 mg/2 mL subcutaneous 300 mg (2 mL) subcut Q2W 28 days 11/09/22 pen injector (Dupixent) #4 mL cholecalciferol (vitamin D3) 50 50 mcg PO DAILY #90 caps 12/05/22 mcg (2,000 unit) capsule Sharps container #1 ea 12/18/22 aspirin 81 mg tablet,delayed 81 mg PO DAILY 90 days #90 tabs 01/03/23 release sertraline 100 mg tablet 100 mg PO DAILY 90 days #90 tabs 01/03/23 linaclotide 290 mcg capsule 290 mcg PO QAM #30 caps 02/05/23 (Linzess) atorvastatin 40 mg tablet 40 mg PO BEDTIME 90 days #90 tabs 03/08/23 lisinopril 10 mg tablet 10 mg PO DAILY 90 days #90 tabs 03/08/23 metformin 500 mg tablet,extended 500 mg PO DAILY 90 days #90 tabs 03/15/23 release 24 hr montelukast 10 mg tablet 10 mg PO BEDTIME 90 days #90 tabs 03/15/23 nystatin 100,000 unit/mL oral 5 ml PO DAILY PRN thrush 30 days 03/15/23 suspension #200 mL Ventolin HFA 90 mcg/actuation 2 puff PO Q6H PRN for dyspnea #18 04/09/23 aerosol inhaler (albuterol sulfate) grams [id number] 1 cap PO QID #120 caps 04/12/23 24,000-76,000-120,000 unit capsule,delayed rel (Creon) theophylline 400 mg 200 mg (1/2 x 400 mg) PO DAILY #15 04/30/23 tablet,extended release 24 hr tabs riboflavin (vitamin B2) 400 mg 400 mg PO DAILY pain 30 days #30 05/03/23 tablet tabs bisacodyl 5 mg tablet,delayed 10 mg (2 x 5 mg) PO BEDTIME #180 05/14/23 release (Dulcolax (bisacodyl)) tabs levothyroxine 175 mcg tablet 175 mcg PO DAILY 30 days #30 tabs 05/14/23 omeprazole 40 mg capsule,delayed 40 mg PO DAILY@0630 #90 caps 05/23/23 release bisacodyl 5 mg tablet,delayed 20 mg (4 x 5 mg) PO ONCE 1 day #4 07/30/23 release (Dulcolax (bisacodyl)) tabs polyethylene glycol 3350 17 238 g PO ONCE #238 grams 07/30/23 gram/dose oral powder (Miralax) sucralfate 100 mg/mL oral 10 ml PO BID #400 mL 07/30/23 suspension ursodiol 250 mg tablet 250 mg PO BID #60 tabs 07/30/23 Allergies Allergy/AdvReac Type Severity Reaction Status Date / Time cat dander [CATS] Allergy Mild GENERALIZED Verified 07/30/23 08:12 ALLERGY SYMPTOMS dog dander [DOGS] Allergy Mild GENERALIZED Verified 07/30/23 08:12 ALLERGY SYMPTOMS tree and shrub pollen [TREE] Allergy Mild GENERALIZED Verified 07/30/23 08:12 ALLERGY SYMPTOMS FROM PINE TREES Review of Systems 2 Review of Systems: Pertinent positives and negatives as stated in HPI PMFSH Past Medical History Source: nursing notes reviewed Medical History Claustrophobia Takotsubo cardiomyopathy Schatzki's ring Gastritis Sleep apnea Diabetes Gastroparesis Migraine headache with aura Enlarged liver Postoperative hypothyroidism Thyroid cancer Vitamin D deficiency Multinodular thyroid Seizures ABPA (allergic bronchopulmonary aspergillosis) Myocardial infarct Seizures Asthma Surgical History History of esophagogastroduodenoscopy (EGD) S/P total thyroidectomy S/P removal of thyroid nodule History of cholecystectomy Family History Family History Maternal Grandmother Emphysema, unspecified Father Diabetes Mother No problems noted. Paternal Grandfather Liver cancer Social History Social History Household Members: Family Housing: Apartment Are you a primary rn home care to a significant other at home: No Do you presently have visiting nurse or other home services: No Alcohol intake: former Patient Tobacco Use Status: Never used Tobacco Smoked in Last 30 Days: No e-Cigarette/Vaping Use: Never Used Second Hand Smoke Exposure: No Use of substances other than those prescribed or required for medical reasons: Yes Substance Use Type: Marijuana Substance Use Frequency: Occasionally Advance Directives: Yes Advance Directives on File: Yes Advance Directives Date on File: 05/20/23 service: No Current occupational status: disabled Current occupation: rt handed Cognitive needs: No Hearing needs: No Vision needs: No Physical Exam ED Vital Signs: Vital Signs - 24 hr 08/01/23 23:26 08/02/23 00:00 08/02/23 00:03 Temperature 97.9 F Pulse Rate 81 94 84 Respiratory Rate 18 18 12 Blood Pressure 128/92 H Pulse Oximetry 98 96 Oxygen Delivery Method Room Air 08/02/23 02:10 Temperature 97.9 F Pulse Rate 80 Respiratory Rate 16 Blood Pressure 119/78 Pulse Oximetry 96 Oxygen Delivery Method Room Air BMI result Body Mass Index 29.7 VITAL SIGNS: Reviewed. GENERAL: Well developed, well nourished, in no acute distress. HEAD: Normocephalic/atraumatic EYES: PERRLA, EOMI EARS: Ext canals without abnormality NOSE: Nares patent bilateral OROPHARYNX: no oral lesions noted, posterior pharynx clear but erythematous with edematous uvula and erythematous tonsils without enlargement, no elevation of tonsillar pillars, is no facial/ lip / tongue swelling NECK: Supple, no adenopathy LUNGS: Normal breath sounds. No adventitious sounds or accessory muscle use. SpO2<96> CARDIOVASCULAR: Regular rate and rhythm without noted murmurs ABDOMEN: Soft, non-tender, non-distended with bowel sounds. MUSCULOSKELETAL: No tenderness, deformities, or effusions noted on gross inspection. EXTREMITIES: No cyanosis, clubbing or edema. SKIN: Inspection of the skin reveals no rashes NEUROLOGIC: Alert and oriented x 4. Strength and sensation to light touch were grossly intact x 4. Medications Administered Discontinued Medications Generic Name Dose Route Start Last Admin Trade Name Freq PRN Reason Stop Dose Admin Al Hydroxide/Mg Hydroxide 30 ml 08/02/23 00:27 08/02/23 00:42 Magnesium Hydrox/Alum Hydrox 30 Ml Oral.Susp PO 08/02/23 00:28 30 ml ONCE ONE Administration Albuterol Sulfate 2.5 mg/ 5 mg 08/01/23 23:54 08/01/23 23:59 Albuterol Sulfate 2.5 mg INHALE 08/01/23 23:55 5 mg ONCE ONE Administration Benzocaine 1 lozenge 08/02/23 01:02 08/02/23 01:09 Throat Lozenge, Medicated Lozenge MUCOUS MEM 08/02/23 01:03 1 lozenge ONCE ONE Administration Dexamethasone 8 mg 08/02/23 01:02 08/02/23 01:09 Dexamethasone 6 Mg Tablet PO 08/02/23 01:03 8 mg ONCE ONE Administration Divalproex Sodium 1,000 mg 08/02/23 00:57 08/02/23 01:10 Divalproex Sodium 500 Mg Tablet.Dr PO 08/02/23 00:58 1,000 mg ONCE ONE Administration Levetiracetam 1,000 mg 08/02/23 00:57 08/02/23 01:10 Levetiracetam 1,000 Mg Tablet PO 08/02/23 00:58 1,000 mg ONCE ONE Administration Lidocaine HCl 10 ml 08/02/23 00:27 08/02/23 00:42 Lidocaine Hcl Viscous 2 % 15 Ml Solution MUCOUS MEM 08/02/23 00:28 10 ml ONCE ONE Administration Sucralfate 1 gm 08/01/23 23:49 08/02/23 00:07 Sucralfate Oral Suspension 1 Gm/10 Ml Oral.Susp PO 08/01/23 23:50 1 gm ONCE ONE Administration Medical Decision Making Medical Decision Making [facility] Narrative: 42-year-old male with history and clinical presentation of a significant erythematous and irritated posterior pharynx with an edematous uvula but no trismus and patient is tolerating secretions. Provided patient with an albuterol treatment and on my examination no evidence tachypnea or expiratory wheeze and patient is oxygenating well on room air. Will provide patient with 1 dose of Decadron for the enlarged uvula, although I did pre to treat patient with Carafate and will also administer a GI cocktail to help protect findings that were noted on upper endoscopy. I reviewed all investigations and hematologic indices or so within normal limits without evidence of leukocytosis/left shift/anemia or thrombocytopenia. chemistry indices are grossly within normal limits without evidence of ISAIAS or electrolytes/ liver enzyme abnormalities. Strep pharyngitis is negative. Patient then reported to the nursing staff that he has not taken his anti seizure medication for 2 days. After reviewing his pharmacy information patient has received both his Depakote and Keppra. There is no seizure activity, patient also received 8 mg of Decadron for the edematous uvula there are no airway or swallowing concerns at this time, he has had both GI cocktail/Carafate/ Cepacol. There are no concerns for angioedema or anaphylaxis. chest x-ray without infiltrate and otherwise my interpretation is in agreement with radiology's impression. Patient is otherwise discharged with instructions to follow-up with his primary care doctor and to also contact the office of his GI physician in the morning. Differential Diagnosis Differential Diagnoses: The differential diagnosis associated with the presentation includes Please see the discussion above Admission/Observation Consideration of admission/observation: Escalation of care including admission/observation considered please see the discussion above Lab Data [facility] Lab Attestation statement: I reviewed the patient's lab results. Please see the discussion above 08/02/23 00:21 08/02/23 00:21 Labs: Lab Results 08/02/23 08/02/23 Range/Units 00:21 00:35 WBC 8.9 (4.8-10.8) X10*3/uL RBC 5.16 D (4.60-5.80) X10*6/uL Hgb 14.9 D (14.0-18.0) g/dl Hct 44.2 D (42.0-52.0) % MCV 85.7 (80.0-98.0) fL MCH 28.9 (27.0-33.0) pg MCHC 33.7 (31.0-36.0) g/dl RDW 13.1 (11.0-16.0) % Plt Count 290 (160-400) X10*3/uL MPV 9.1 L (9.4-12.4) fL Immature Gran % (Auto) 0.5 H (0.0-0.4) % Neut % (Auto) 59.8 (45-73) % Lymph % (Auto) 28.4 (20-40) % [place] % (Auto) 9.1 (2-11) % Eos % (Auto) 1.9 (0-4) % Baso % (Auto) 0.3 (0-2) % Lymph # (Auto) 2.5 (1.2-4.9) X10*3/uL [place] # (Auto) 0.8 (0.1-1.2) X10*3/uL Eos # (Auto) 0.2 (0.0-0.4) X10*3/uL Baso # (Auto) 0.0 (0.0-0.2) X10*3/uL Abs Immat Gran (auto) 0.04 H (0.00-0.03) X10*3/uL Absolute Neuts (auto) 5.3 (2.0-8.3) x10*3/uL Absolute Nucleated RBC 0.000 (0.0-0.012) X10*3/uL Nucleated RBC % (auto) 0.0 (0.0-0.2) /100WBC Sodium 140 (135-145) mmol/L Potassium 3.9 (3.3-5.1) mmol/L Chloride 107 (96-108) mmol/L Carbon Dioxide 24 (22-29) mmol/L Anion Gap 13 (12-20) BUN 11 (9-16) mg/dL Creatinine 0.80 (0.5-1.4) mg/dL Estim Creat Clear Calc 116.6 Estimated GFR > 60 Random Glucose 115 (60-115) mg/dL Calcium 8.8 (8.4-10.2) mg/dL Total Bilirubin 0.4 (0.0-1.0) mg/dL AST 24 (5-37) U/L ALT 36 (0-40) U/L Alkaline Phosphatase 50 (39-117) U/L Total Protein 7.3 (6.5-8.0) g/dL Albumin 4.6 (3.5-5.0) g/dL S. pyogenes GrpA ARIANNA Negative (Negative) Independent Interpretation I performed an independent interpretation of an: EKG Interpretation: normal sinus rhythm, HR - 69, no STEMI, IN / QRS /QTC is within normal limits. Radiology Impression Discussion of test interpretation with radiology: I have reviewed the radiologist's reading. Radiologist Impression: please see the discussion above External Record Review External record reviewed: Office record, Outpatient record, Prior outpatient labs and Prior outpatient radiology Chronic Conditions Patient?s care impacted by: Diabetes seizures Critical Care Time Critical Care Time Critical Care Time: Yes Total Critical Care Time: 30 Attestation: I personally attest to this time spent taking care of the patient. Discharge Plan Discharge Clinical Impression: Uvulitis Patient Disposition: Home, Self-Care Instructions: Uvulitis (ED) Additional Instructions: 1. Resume all home medications as prescribed. 2. Recommend using [id number] Cepacol for alleviating some of the discomfort of your throat. 3. Please contact your primary care doctor as well as your flame hardener in the morning to set up an appointment for re-evaluation and further outpatient management. Return to the ER for any worsening symptoms. Prescriptions: No Action carvedilol 3.125 mg tablet 3.125 mg PO BID 90 Days Qty: 180 2RF Dupixent Pen 300 mg/2 mL pen injector 300 mg subcut Q2W 28 Days Qty: 4 12RF Rx Instructions: Initial dose 600 mg, then 300 mg every 2 weeks subcutaneously (DME) Sharps container See Rx Instructions .Route .MEDSUPPLY Qty: 1 0RF Rx Instructions: As directed aspirin 81 mg tablet,delayed release (DR/EC) 81 mg PO DAILY 90 Days Qty: 90 2RF Hold Instructions: Doctor's Order sertraline 100 mg tablet 100 mg PO DAILY 90 Days Qty: 90 2RF lisinopril 10 mg tablet 10 mg PO DAILY 90 Days Qty: 90 3RF atorvastatin 40 mg tablet 40 mg PO BEDTIME 90 Days Qty: 90 3RF albuterol sulfate [Ventolin HFA] 90 mcg/actuation HFA aerosol inhaler 2 puff PO Q6H PRN (Reason: for dyspnea) Qty: 18 6RF theophylline 400 mg tablet extended release 24 hr 200 mg PO DAILY Qty: 15 6RF riboflavin (vitamin B2) 400 mg tablet 400 mg PO DAILY 30 Days Qty: 30 0RF levothyroxine 175 mcg tablet 175 mcg PO DAILY 30 Days Qty: 30 3RF divalproex 500 mg tablet,delayed release (DR/EC) 1,000 mg PO QPM divalproex 500 mg tablet,delayed release (DR/EC) 1,500 mg PO QAM gabapentin 300 mg capsule 300 mg PO BEDTIME PRN (Reason: Pain) levetiracetam 1,000 mg tablet 1,000 mg PO BID Spiriva Respimat 2.5 mcg/actuation mist 2 puff PO DAILY PRN (Reason: Shortness Of Breath) omeprazole 40 mg Capsule,Delayed Release(Dr/Ec) 40 mg PO DAILY@0630 Qty: 90 0RF metformin 500 mg tablet extended release 24 hr 500 mg PO DAILY 90 Days Qty: 90 2RF Hold Instructions: Doctor's Order nystatin 100,000 unit/mL suspension 5 ml PO DAILY PRN (Reason: thrush) 30 Days Qty: 200 3RF Rx Instructions: administer 1/2 of dose in each side of the mouth montelukast 10 mg tablet 10 mg PO BEDTIME 90 Days Qty: 90 2RF simethicone [Gas Relief 80 (simethicone)] 80 mg tablet,chewable 80 mg PO BID-QID PRN (Reason: abdominal distention) Qty: 30 0RF cholecalciferol (vitamin D3) 50 mcg (2,000 unit) capsule 50 mcg PO DAILY Qty: 90 2RF Linzess 290 mcg capsule 290 mcg PO QAM Qty: 30 4RF Creon 24,000-76,000 -120,000 unit capsule,delayed release(DR/EC) 1 cap PO QID Qty: 120 2RF Rx Instructions: administer with meals and/or snacks bisacodyl [Dulcolax (bisacodyl)] 5 mg tablet,delayed release (DR/EC) 10 mg PO BEDTIME Qty: 180 4RF sucralfate 100 mg/mL suspension 10 ml PO BID Qty: 400 3RF Rx Instructions: Please take it at noon time and at bedtime ursodiol 250 mg tablet 250 mg PO BID Qty: 60 2RF bisacodyl [Dulcolax (bisacodyl)] 5 mg tablet,delayed release (DR/EC) 20 mg PO ONCE 1 Days Qty: 4 0RF Rx Instructions: take 4 tabs at noon the day before your colonoscopy polyethylene glycol 3350 [Miralax] 17 gram/dose powder 238 g PO ONCE Qty: 238 0RF Rx Instructions: As directed by gastroenterology department at [facility] [place] Referrals: Saúl Maier PA-C [Primary Care Provider] - Myron Bowens MD [Physician] -
[2023-08-02 00:26] LABS: MANUAL DIFF FLAG NO
[2023-08-02 00:28] LABS: Basophils Percent Auto 0.3 % (0-2); Eosinophils Absolute Auto 0.2 X10*3/uL (0.0-0.4); Eosinophils Percent Auto 1.9 % (0-4); Hematocrit 44.2 % (42.0-52.0); Hemoglobin 14.9 g/dl (14.0-18.0); Imm Gran Abs Auto 0.04 X10*3/uL (0.00-0.03); Imm Gran Pct Auto 0.5 % (0.0-0.4); Lymphocytes Absolute Auto 2.5 X10*3/uL (1.2-4.9); Lymphocytes Percent Auto 28.4 % (20-40); Mean Corpuscular HGB Conc 33.7 g/dl (31.0-36.0); Mean Corpuscular Hemoglobin 28.9 pg (27.0-33.0); Mean Corpuscular Volume 85.7 fL (80.0-98.0); Mean Platelet Volume 9.1 fL (9.4-12.4); Monocytes Absolute Auto 0.8 X10*3/uL (0.1-1.2); Monocytes Percent Auto 9.1 % (2-11); Neutrophils Absolute Auto 5.3 x10*3/uL (2.0-8.3); Neutrophils Percent Auto 59.8 % (45-73); Platelet Count 290 X10*3/uL (160-400); Red Blood Count 5.16 X10*6/uL (4.60-5.80); Red Cell Distribution Width 13.1 % (11.0-16.0); White Blood Count 8.9 X10*3/uL (4.8-10.8)
[2023-08-02 00:40] LABS: Alanine Aminotransferase 36 U/L (0-40); Albumin Level 4.6 g/dL (3.5-5.0); Alkaline Phosphatase 50 U/L (39-117); Anion Gap 13 (12-20); Aspartate Amino Transferase 24 U/L (5-37); Bilirubin Total 0.4 mg/dL (0.0-1.0); Blood Urea Nitrogen 11 mg/dL (9-16); Calcium 8.8 mg/dL (8.4-10.2); Carbon Dioxide 24 mmol/L (22-29); Chloride 107 mmol/L (96-108); Creatinine Clr Calc Pharmacy 116.6; Estimated Glomerular Filt Rate > 60; Glucose Random 115 mg/dL (60-115); Potassium 3.9 mmol/L (3.3-5.1); Sodium 140 mmol/L (135-145); Total Protein 7.3 g/dL (6.5-8.0)
[2023-08-02] MEDS: Magnesium Hydrox/Alum Hydrox 30 ML ORAL.SUSP PO (00:42)
[2023-08-02] MEDS: Lidocaine HCl Viscous 2 % 15 ML SOLUTION 10 ML MUCOUS MEM (00:42)
[2023-08-02 00:59] LABS: IDNOW Serial# 08D9AD1C; Strep A Nucleic Acid Negative (Negative)
[2023-08-02] MEDS: Throat Lozenge, Medicated LOZENGE 1 LOZENGE MUCOUS MEM (01:09)
[2023-08-02] MEDS: dexAMETHasone 6 MG TABLET 8 MG PO (01:09)
[2023-08-02] MEDS: Divalproex Sodium 500 MG TABLET.DR 1000 MG PO (01:10)
[2023-08-02] MEDS: levETIRAcetam 1,000 MG TABLET 1000 MG PO (01:10)
[2023-08-02 02:10] VITALS: BP 119/78; PULSE 80; RESP 16; TEMP 36.6; O2SAT 96
== END 2023-08-02 03:41 | disposition home or self-care (01) ==
PROVIDERS: Emergency Provider Student in an Organized Health Care Education/Training Program; PCP Physician Assistant
DX: K12.2 Cellulitis and abscess of mouth (principal); R06.02 Shortness of breath; K21.9 Gastro-esophageal reflux disease without esophagitis; R94.31 Abnormal electrocardiogram [ECG] [EKG]; R07.0 Pain in throat; Z79.899 Other long term (current) drug therapy
CPT/HCPCS: 36415; 71046; 80053; 85025; 87651; 93005; 94640; 99284; 99285; J8540

== ENCOUNTER 2023-08-06 10:03 | Outpatient (AMB) | payer OTHER, SELFPAY ==
[2023-08-06 10:06] VITALS: BP 133/81; PULSE 81; BMI 29.8
--- NOTE | 2023-08-06 10:06 | MHC.OFFVIS ---
Intake Vital Signs 08/06/23 10:06 Height 5 ft 5 in Weight 179 lb 0.246 oz BMI 29.8 BP 133/81 Blood Pressure Location Lt brachial Position Sitting Pulse 81 Pulse Source Pulse Oximeter Intake Visit Reasons: S/p double/Pain and swelling in throat Intake Note: Pt presents to the office today for a s/p double. Pt states he is still having issues after EGD. Pt states he has throat pain and swelling. Pt states he went to the ER the same day as the procedures due to his throat pain. Pt states he was diagnosed with Uvulitis. Pt states is throat isnt as swollen but is still having issues when he swallows. Pt denies any N/V/D. Pt states he does have some abdominal discomfort which started right after his procedures but he states it has gotten a little better since then. Allergies cat dander [CATS] Allergy (Mild, Verified 08/06/23 10:07) GENERALIZED ALLERGY SYMPTOMS dog dander [DOGS] Allergy (Mild, Verified 08/06/23 10:07) GENERALIZED ALLERGY SYMPTOMS tree and shrub pollen [TREE] Allergy (Mild, Verified 08/06/23 10:07) GENERALIZED ALLERGY SYMPTOMS FROM [place] HPI S/p double/Pain and swelling in throat HPI Details LAST VISIT: Gastritis Barretts esophagus GERD (gastroesophageal reflux disease) Hematochezia Nausea Plan Patient will be sent for upper endoscopy and colonoscopy. Patient has been continuing with nausea vomiting. Occasional blood when vomiting. Currently he is treated with omeprazole. Patient states that it were the same and does not see any improvement. Will send script for ursodiol b.i.d.. Patient also has rectal bleed. Occasional loose stools then constipation, however reports that Linzess helps. Will send him for diagnostic colonoscopy. Patient was diagnosed with takotsubo cardiomyopathy decreased EF to 35%, however patient denies any cardiac symptoms. Patient was seen for elevated troponins in the hospital by Dr. Marroquin who reviewed his tests and no need for clearance before going for the procedure. Spoke with the deputy city clerk today. I will see patient after the procedure, sooner on as needed basis. He is agreeable to this plan and verbalizes understanding of instructions. He was given the opportunity to ask questions and all questions answered ? Thank you for allowing me to participate in his care Medications New ursodiol 250 mg PO BID 60 tabs 2RF polyethylene glycol 3350 (Miralax) As directed by gastroenterology department at [facility] 238 grams PO ONCE 238 grams 0RF Z12.11 bisacodyl (Dulcolax (bisacodyl)) take 4 tabs at noon the day before your colonoscopy 20 mg (4 x 5 mg) PO ONCE 1 day 4 tabs 0RF Z12.11 Refilled sucralfate Please take it at noon time and at bedtime 10 mL PO BID 400 mL 3RF K21.9 Discontinued rabeprazole Discontinued Reason: Patient Completed Course 20 mg PO DAILY 90 tabs 2RF UPPER ENDOSCOPY AND COLONOSCOPY: Findings: Larynx:normal Esophagus: GE junction at 34 cm, diaphragm hiatus at 37 cm, consistent with 3 cm sliding hiatal hernia, schatzki ring noted. Esophgeal inlet patches noted as well. There was a few tongues of salmon pink tissue suspicious for short segment Barretts (about 2-3 cm), bx taken as well as brushings for WATS. The esophagus also had a sigmoid shaped curve at the distal end. Stomach: Patchy gastric erythema. Biopsies were obtained. Grade 3 flap valve on retroflexed examination of the cardia with incompetent LES. There was bile acid in the stomach. The pyloric outlet was dilated to 20 mm with balloon over a wire, no tears seen Duodenum: Patchy erythema, bx taken Intervention: Biopsies as noted above, balloon dilation over wire COLONOSCOPY Instrument: Olympus variable stiffness pediatric scope 190L Colonoscopy Monitoring: Vital signs and clinical assessment, continuous EKG monitoring, Pulse oximetry, Carbon Dioxide monitoring and blood pressure monitoring were done throughout the procedure. Colon withdrawal time was 7 minutes. Procedure: The patient was placed in the left lateral decubitis position and pre-procedure medications were administered. After a digital rectal examination of the ano-rectum, the video colonoscope was inserted into the rectum and advanced through the colon to the cecum/TI. The colonoscope was slowly withdrawn in a retrograde panoramic fashion and the colon mucosa was carefully examined including a retroflexed view of the rectum. Findings and interventions are described below. Procedure Difficulty:easy Findings: Terminal Ileum-normal Cecum:normal Ascending Colon: normal Transverse Colon -normal Descending Colon:normal Sigmoid Colon: normal Rectum: Retroflexion with small internal hemorrhoids, grade I Anorectum - normal Colon preparation: [place] Bowel Preparation Scale Right colon; 1-2 Transverse colon: 2 Left colon; 2 (0 = Unprepared colon segment with mucosa not seen due to solid stool that cannot be cleared. 1 = Portion of mucosa of the colon segment seen, but other areas of the colon segment not well seen due to staining, residual stool and/or opaque liquid. 2 = Minor amount of residual staining, small fragments of stool and/or opaque liquid, but mucosa of colon segment seen well. 3 = Entire mucosa of colon segment seen well with no residual staining, small fragments of stool or opaque liquid) Impression and Post Procedure Diagnosis: Endoscopy Findings: esophageal inlet patches schatzki ring hiatal hernia incompetent LES barretts bile acid gastric reflux gastritis duodenitis Colonoscopy Findings: internal hemorrhoids Plan: Await Pathology results Repeat Colonoscopy in 5 years due to fair prep on right or earlier if clinically indicated High fiber diet leaflet avoid straining at stool, epsom salts and sitz bath, anusol supps or cream GERD precautions consider surgical referral for partial fundoplication, vs medical management if barretts confirmed without dysplasia repeat EGD in 2-3 years ensure PPi compliance PATHOLOGY RESULTS Diagnosis A. Esophagus, distal, biopsy: Columnar mucosa with minimal chronic inflammation and intestinal metaplasia consistent with Ramirez's mucosa; negative for dysplasia; no squamous component present. B. Duodenum, biopsy: Duodenal mucosa with predominantly preserved villi and focal changes of chronic/non-specific duodenitis. C. Stomach, biopsy: Gastric antral and body mucosa with focal minimal chronic inactive inflammation; negative for H pylori, intestinal metaplasia and dysplasia TODAY'S VISIT Patient is here today for follow-up. Patient has upper endoscopy and colonoscopy on the of this month few days ago and same day when to emergency department as he was unable to swallow. Patient was diagnosed with uvulitis and sent home. Patient denies choking episodes. Self-treated himself with leftover nystatin swish and swallow. Today he reports that he is feeling better. Patient denies any nausea or vomiting. Taking his omeprazole daily. Does not feel like the ursodiol or Creon help much. However patient does reports to be feeling better when it comes to acid reflux. Patient denies any nausea or vomiting. Biopsy and upper endoscopy discussed with patient. Patient was found to have a duodenitis and gastritis. Gastritis mild. Patient was found to have Ramirez's in his distal esophagus. [facility] Medical History Claustrophobia Takotsubo cardiomyopathy Schatzki's ring Gastritis Sleep apnea Diabetes Gastroparesis Migraine headache with aura Enlarged liver Postoperative hypothyroidism Thyroid cancer Vitamin D deficiency Multinodular thyroid Seizures ABPA (allergic bronchopulmonary aspergillosis) Myocardial infarct Seizures Asthma Surgical History History of esophagogastroduodenoscopy (EGD) S/P total thyroidectomy S/P removal of thyroid nodule History of cholecystectomy Family History Maternal Grandmother Emphysema, unspecified Father Diabetes Mother No problems noted. Paternal Grandfather Liver cancer Social History Household Members: Family Housing: Apartment Are you a primary healthcare consultant to a significant other at home: No Do you presently have visiting nurse or other home services: No Alcohol intake: former Comment: has poor balance Patient Tobacco Use Status: Never used Tobacco e-Cigarette/Vaping Use: Never Used Second Hand Smoke Exposure: No Substance Use Type: Marijuana Advance Directives Date on File: 05/20/23 service: No Current occupational status: disabled Current occupation: rt handed Cognitive needs: No Hearing needs: No Vision needs: No Review of Systems Const Denies weight gain and Denies weight loss ENT Reports no additional complaints, Denies dysphagia and Denies odynophagia Card Reports no additional complaints Resp Reports no additional complaints GI Denies abdominal pain, Denies belching, Denies melena, Reports bloating, Denies change in bowel habits, Denies dysphagia, Denies excessive flatus, Denies dyspepsia, Reports heartburn (occasional), Denies diarrhea, Denies loose stools, Denies nausea, Denies odynophagia and Denies vomiting Reports no additional complaints Musc Reports no additional complaints Neuro Reports no additional complaints Psych Reports no additional complaints Endo Reports no additional complaints Physical Exam Vital Signs: Last Vital Signs Pulse 81 08/06/23 10:06 BP 133/81 08/06/23 10:06 BMI result Body Mass Index 29.8 Const General: healthy appearing, no acute distress and well developed Nutritional Appearance: obese Orientation/consciousness: patient oriented x3 HEENT Head: Yes normal to inspection, Yes normocephalic and Yes atraumatic Face and sinus: Yes normal facial exam Mouth: Normal oral and palatal mucosa present Throat: Yes posterior oropharynx normal, Yes tonsils normal and Yes uvula midline Eyes General: appearance normal, both eyes and all related structures Neck Neck: Yes normal visual inspection, Yes full ROM and Yes trachea midline Thyroid: Thyroid normal Resp Effort & Inspection: normal respiratory effort, able to speak in complete sentences, no tracheal deviation and symmetric chest movement Auscultation: clear to auscultation bilaterally Cardio Rate: regular rate GI Inspection: Yes normal to inspection, No distended and Yes obesity Palpation (GI): Soft to palpation, not firm, nontender and No hepatosplenomegaly present Auscultation: normal bowel sounds General: Yes no CVA tenderness Back/Spine/Pelvis Back: no CVA tenderness Skin General skin exam: elasticity normal, turgor normal and dry skin Neuro General: patient oriented x3 Psych Appearance: grossly normal Mental Status: mental status grossly normal Affect: normal affect Assessment & Plan Assessment & Plan (1) Gastritis: Code(s): K29.70 - Gastritis, unspecified, without bleeding Qualifiers: Gastritis type: superficial Chronicity: unspecified Gastritis bleeding: without bleeding Qualified Code(s): K29.30 - Chronic superficial gastritis without bleeding (2) Barretts esophagus: Code(s): K22.70 - Ramirez's esophagus without dysplasia Qualifiers: Ramirez's esophagus type: without dysplasia Qualified Code(s): K22.70 - Ramirez's esophagus without dysplasia (3) GERD (gastroesophageal reflux disease): Code(s): K21.9 - Gastro-esophageal reflux disease without esophagitis Qualifiers: Esophagitis presence: esophagitis presence not specified Qualified Code(s): K21.9 - Gastro-esophageal reflux disease without esophagitis (4) Constipation: Code(s): K59.00 - Constipation, unspecified Qualifiers: Constipation type: slow transit constipation Qualified Code(s): K59.01 - Slow transit constipation (5) Abdominal bloating: Code(s): R14.0 - Abdominal distension (gaseous) (6) Dysphagia: Code(s): R13.10 - Dysphagia, unspecified Qualifiers: Dysphagia type: pharyngoesophageal phase Qualified Code(s): R13.14 - Dysphagia, pharyngoesophageal phase (7) Gastroparesis: Code(s): K31.84 - Gastroparesis (8) Schatzki's ring: Code(s): K22.2 - Esophageal obstruction Plan As mentioned above in HPI biopsy results and upper endoscopy results reviewed with patient in detail. Patient will continue his PPI management, will take sucralfate twice a day. Discussed with patient the importance of also avoiding dietary triggers. Patient will be started on Welchol. Hopefully his symptoms will get better. Ursodiol and Creon were not helpful. Mild gastroparesis, now patient is moving his bowels better with Linzess. He can continue taking it on a daily basis. Discussed with patient eating smaller meals and more often. Low FODMAP diet discussed with patient. I will see him in 6 weeks, if symptoms continues patient will be sent for fundoplication. He is agreeable to this plan and verbalizes understanding of instructions. He was given the opportunity to ask questions and all questions answered. Thank you for allowing me to participate in his care Medications: New colesevelam (WelChol) 1,250 mg (2 x 625 mg) PO BID 120 tabs 2RF Discontinued ursodiol Discontinued Reason: Doctor's Order 250 mg PO BID 60 tabs 2RF [id number] 24,000-76,000 -120,000 unit administer with meals and/or snacks Discontinued Reason: Change Referral Type 1 cap PO QID 120 caps 2RF K58.9 - Irritable bowel syndrome without diarrhea Coding Level of Care Code New Pt Level 5 (32122) Diagnoses Superficial gastritis without hemorrhage, unspecified chronicity K29.30 Gastritis type: superficial Chronicity: unspecified Gastritis bleeding: without bleeding Ramirez's esophagus without dysplasia K22.70 Ramirez's esophagus type: without dysplasia Gastroesophageal reflux disease, unspecified whether esophagitis present K21.9 Esophagitis presence: esophagitis presence not specified Slow transit constipation K59.01 Constipation type: slow transit constipation Abdominal bloating R14.0 Pharyngoesophageal dysphagia R13.14 Dysphagia type: pharyngoesophageal phase Gastroparesis K31.84 Schatzki's ring K22.2 Time Spent (min) 50 Comment 30 minute spent with patient and additional 20 minutes spent reviewing his records
== END 2023-08-06 10:51 | disposition home or self-care (01) ==
PROVIDERS: PCP Physician Assistant; Visit Provider Nurse Practitioner Family
DX: K29.30 Chronic superficial gastritis without bleeding (principal); K22.70 Barrett's esophagus without dysplasia; K21.9 Gastro-esophageal reflux disease without esophagitis; K59.01 Slow transit constipation; R13.14 Dysphagia, pharyngoesophageal phase; K31.84 Gastroparesis; K22.2 Esophageal obstruction
CPT/HCPCS: 99215

== ENCOUNTER → 2023-08-06 10:03 | Outpatient (BNVA) | payer OTHER, SELFPAY | PROVIDERS: PCP Physician Assistant; Visit Provider Nurse Practitioner Family | DX: K29.30 Chronic superficial gastritis without bleeding (principal); K22.70 Barrett's esophagus without dysplasia; K21.9 Gastro-esophageal reflux disease without esophagitis; K59.01 Slow transit constipation; K31.84 Gastroparesis; K22.2 Esophageal obstruction; R14.0 Abdominal distension (gaseous); R13.14 Dysphagia, pharyngoesophageal phase | CPT/HCPCS: 99212 ==

== ENCOUNTER 2023-08-28 07:05 | Outpatient (AMB) | payer OTHER, SELFPAY ==
[2023-08-28 07:14] VITALS: BP 130/82; PULSE 82; O2SAT 95; BMI 29.1
--- NOTE | 2023-08-28 07:14 | MHC.PC.OV ---
Vital Signs 08/28/23 07:14 Height 5 ft 5 in Weight 175 lb BMI 29.1 BP 130/82 Blood Pressure Location Lt brachial Position Sitting Pulse 82 Pulse Source Pulse Oximeter Pulse Oximetry (%) 95 Oxygen Delivery Method Room Air Intake Visit Reasons: ED f/u Allergies cat dander [CATS] Allergy (Mild, Verified 08/28/23 07:15) GENERALIZED ALLERGY SYMPTOMS dog dander [DOGS] Allergy (Mild, Verified 08/28/23 07:15) GENERALIZED ALLERGY SYMPTOMS tree and shrub pollen [TREE] Allergy (Mild, Verified 08/28/23 07:15) GENERALIZED ALLERGY SYMPTOMS FROM [place] Tobacco use date assessed: 08/28/23 Dental Screening Dental Screen Date: 08/28/23 Did you have a dental visit in the last 12 months?: Yes Did you have a dental problem in the last 6 months where you did not have access to dental care?: No Was dental information given to patient?: Patient has dentist HPI HPI Comments History of Present Illness Details 42-year-old male with a past medical history significant for seizure disorder, cardiomyopathy, NC, thyroid cancer, hypothyroidism, MEHNAZ on CPAP, asthma, GERD and depression. Patient of Saul Maier patient presents today for ER follow-up patient presented to [facility] Emergency Room on 08/02/2023 for a uvulitis status post EGD patient was able to manage his own secretions, no signs of allergic reaction or anaphylaxis. Patient was treated with updraft, 1 time dose of Decadron, Carafate and GI cocktail. Chest x-ray unremarkable, strep test negative. Patient was able to be discharged home. Patient reports still has some discomfort with swallowing. Denies fevers, chills. Patient reports has been following a soft diet since EGD. Pateint noted to have mild uvelitis, denies difficulty breathing, drooling or unable to manage secretions. [facility] Medical History (Updated 08/28/23 @ 07:32 by ARIELA Cuello) Uvulitis Claustrophobia Takotsubo cardiomyopathy Schatzki's ring Gastritis Sleep apnea Diabetes Gastroparesis Migraine headache with aura Enlarged liver Postoperative hypothyroidism Thyroid cancer Vitamin D deficiency Multinodular thyroid Seizures ABPA (allergic bronchopulmonary aspergillosis) Myocardial infarct Seizures Asthma Surgical History History of esophagogastroduodenoscopy (EGD) S/P total thyroidectomy S/P removal of thyroid nodule History of cholecystectomy Family History Maternal Grandmother Emphysema, unspecified Father Diabetes Mother No problems noted. Paternal Grandfather Liver cancer Social History Household Members: Family Housing: Apartment Are you a primary career based intervention coordinator to a significant other at home: No Do you presently have visiting nurse or other home services: No Alcohol intake: former Comment: has poor balance Patient Tobacco Use Status: Never used Tobacco e-Cigarette/Vaping Use: Never Used Second Hand Smoke Exposure: No Substance Use Type: Marijuana Advance Directives Date on File: 05/20/23 service: No Current occupational status: disabled Current occupation: rt handed Cognitive needs: No Hearing needs: No Vision needs: No Questionnaire PHQ-9 Over the last 2 weeks, how often have you been bothered by any of the following problems? 1. Little interest or pleasure in doing things: several days 2. Feeling down, depressed, or hopeless: several days 3. Trouble falling or staying asleep, or sleeping too much: nearly every day 4. Feeling tired or having little energy: nearly every day 5. Poor appetite or overeating: more than half the days 6. Feeling bad about yourself - or that you are a failure or have let yourself or your family down: nearly every day 7. Trouble concentrating on things, such as reading the newspaper or watching television: nearly every day 8. Moving or speaking so slowly that other people could have noticed. Or the opposite - being so fidgety or restless that you have been moving around a lot more than usual: more than half the days 9. Thoughts that you would be better off or of hurting yourself in some way: not at all Total score: 18 Depression Screening Interpretation: Positive Depression Screening Follow-up: Existing condition and In treatment Depression Screening Done: Yes 40572 - PHQ-9 Billing: Yes Source: Developed by Drs. Ramses Nguyen, Debi Russ, Colin Rowell and colleagues, with an educational javy from [employer]. Thrive Questionnaire Date Thrive assessed: 05/21/23 AUDIT C Alcohol Use Questionnaire (AUDIT-C) 1. How often do you have a drink containing alcohol?: Never 3. How often do you have six or more drinks on one occasion?: Never Total Score: 0 MOOSE-7 AMB Questionnaire MOOSE-7 Date MOOSE - 7 assessed: 11/20/22 Source: Developed by Drs. Ramses Nguyen, Debi Russ, Colin Rowell and colleagues, with an educational javy from [employer]. Review of Systems Const Denies chills, Denies fatigue, Denies fever(s) and Denies poor appetite Eyes Denies no additional complaints ENT Reports Normal hearing present, Reports dysphagia and Reports hoarseness Card Denies chest pain, Denies syncope, Denies rapid heart rate and Denies dyspnea Resp Denies cough and Denies dyspnea GI Denies change in stool character, Denies constipation, Reports dysphagia, Denies diarrhea, Denies nausea and Denies vomiting Denies dysuria, Denies urinary frequency and Denies urinary urgency Neuro Reports Normal hearing present, Denies confusion and Denies syncope Psych Denies confusion Endo Denies fatigue Physical exam (Primary Care) Vital Signs: Oxygen Delivery Method Room Air 08/28/23 07:14 BMI result Body Mass Index 29.1 Tobacco/Smoking Status: Tobacco use Status Tobacco use date assessed 04/30/23 08/28/23 07:16 Patient Tobacco Use Status Never used Tobacco 08/28/23 07:16 e-Cigarette/Vaping Use Never Used 08/28/23 07:16 PHQ-9: PHQ-9 Score PHQ-9: Total score 18 08/28/23 07:16 Depression Screening Interpretation: Positive Depression Screening Follow-up: Existing condition and In treatment Thrive Assessment: Date of Thrive Assessment Date Thrive assessed 05/21/23 08/28/23 07:16 Const General: No confusion Orientation/consciousness: No confusion HENMT Head: Yes normocephalic and Yes atraumatic Mouth: Normal oral and palatal mucosa present, no drooling and no muffled voice Throat: Yes uvula midline and Yes uvular edema (mild, with mild erythema ) Eyes Conjunctivae: conjunctivae normal Chest Chest palpation & inspection: normal inspection of the chest Resp Effort & Inspection: normal respiratory effort Auscultation: clear to auscultation bilaterally, no crackles, no rhonchi and no wheezes Cardio Rate: regular rate Rhythm: regular rhythm Heart sounds: S1 normal heart sound present and S2 normal heart sound present GI Inspection: Yes normal to inspection Neuro General: No confusion Cranial nerves: Yes Normal hearing present Extrem General: No edema Assessment and Plan Assessment & Plan (1) Uvulitis: Code(s): K12.2 - Cellulitis and abscess of mouth Plan: Given patient continues to have pain with swallowing and noted to have mild persistent uvulitis s/p EGD in [facility] on exam will send 10mg prednisone x 5 days for inflammations. Patient advised to seek medical attention if her devleops hot potatoe voice, difficulting breathing and unable to manage his secretions. (2) Gastroparesis: Code(s): K31.84 - Gastroparesis Plan: Continue to follow with GI and continue on omeprazole and sulcrafate. Plan Keep scheduled follow up with pcp or follow up sooner if needed. Medications: New prednisone 10 mg PO DAILY 5 tabs 0RF K12.2 - Cellulitis and abscess of mouth Coding Level of Care Code Est Pt Level 3 (65247) Diagnoses Uvulitis K12.2 Gastroparesis K31.84
== END 2023-08-28 08:54 | disposition home or self-care (01) ==
PROVIDERS: PCP Physician Assistant; Visit Provider Nurse Practitioner Family
DX: K12.2 Cellulitis and abscess of mouth (principal); K31.84 Gastroparesis
CPT/HCPCS: 99213

== ENCOUNTER 2023-09-12 11:38 | Outpatient (AMB) | payer OTHER, SELFPAY ==
[2023-09-12 11:40] VITALS: BP 90/68; PULSE 80; O2SAT 99; BMI 29.6
--- NOTE | 2023-09-12 11:40 | A.OFFPC_ITS ---
Vital Signs 09/12/23 11:40 Height 5 ft 5 in Weight 178 lb 0.4 oz BMI 29.6 BP 90/68 Blood Pressure Location Lt brachial Position Sitting Pulse 80 Pulse Source Pulse Oximeter Pulse Oximetry (%) 99 Oxygen Delivery Method Room Air Intake Visit Reasons: f/u asthma / sz disorder Intake Note: Patient is here to follow up on asthma Flex O Writer Operator Required: No Allergies cat dander [CATS] Allergy (Mild, Verified 09/12/23 12:01) GENERALIZED ALLERGY SYMPTOMS dog dander [DOGS] Allergy (Mild, Verified 09/12/23 12:01) GENERALIZED ALLERGY SYMPTOMS tree and shrub pollen [TREE] Allergy (Mild, Verified 09/12/23 12:01) GENERALIZED ALLERGY SYMPTOMS FROM [place] Medication List - Last Reconciled 09/12/23 by Saúl Maier PA-C aspirin 81 mg PO DAILY 90 days atorvastatin 40 mg PO BEDTIME 90 days bisacodyl (Dulcolax (bisacodyl)) 10 mg (2 x 5 mg) PO BEDTIME carvedilol 3.125 mg PO BID 90 days cholecalciferol (vitamin D3) 50 mcg PO DAILY colesevelam (WelChol) 1,250 mg (2 x 625 mg) PO BID divalproex 1,500 mg PO QAM dupilumab (Dupixent) 300 mg (2 mL) subcut Q2W 28 days gabapentin 300 mg PO BEDTIME PRN levetiracetam 1,000 mg PO BID levothyroxine 175 mcg PO DAILY linaclotide (Linzess) 290 mcg PO QAM lisinopril 10 mg PO DAILY 90 days metformin ER 500 mg PO DAILY 90 days montelukast 10 mg PO BEDTIME 90 days nystatin 5 mL PO DAILY PRN 30 days omeprazole 40 mg PO DAILY@0630 prednisone 10 mg PO DAILY riboflavin (vitamin B2) 400 mg PO DAILY 30 days sertraline 100 mg PO DAILY 90 days [Sharps container As directed] simethicone (Gas Relief 80 (simethicone)) 80 mg PO BID-QID PRN sucralfate 10 mL PO BID theophylline ER 200 mg (1/2 x 400 mg) PO DAILY tiotropium bromide 2.5 mcg/actuation (Spiriva Respimat) 2 puffs PO DAILY PRN Ventolin HFA 90 mcg/actuation (albuterol sulfate) 2 puffs PO Q6H PRN NS Tobacco use date assessed: 09/12/23 HPI f/u asthma / sz disorder 2 HPI Details risa is 42year-old male here today for a follow up visit. ?Patient? has a past medical history significant for seizure disorder, moderate persistent? asthma, depression and anxiety, thyroid cancer status post thyroidectomy. Has been having trouble with throat irritation and difficulty swallowing shortly after his upper endoscopy. Was found to have uvulitits and was treated with steroids and antibiotics. Now currently feeling much better unable to swallow normal. He does continue to have epigastric abdominal pain to which he is following up with Gastroenterology for. Endoscopy did show Ramirez's esophagus and rings. .. Type 2 diabetes: Today's A1c is 7.1. Patient does report taking metformin 500 daily. He does admit to dietary indiscretion over the holidays. Also has been on a few courses of prednisone due to his pharyngitis.. PLAN: Advised to work on low carbohydrate diet, continue metformin. Will recheck A1c and if still above 7 will consider increasing metformin dose. .. CHRONIC MEDICAL CONDITIONS--> History of?thyroid cancer: He is status post total thyroidectomy. Continues on levothyroxine indefinitely. He has lost follow-up with endocrinology and needs referral for thyroid cancer surveillance. ?.. ? Anxiety: Patient he is? seeing therapist (Junito) at [facility] here at [facility]. Patient continues? on Zoloft .. History of cardiomyopathy:? Patient has a history of dilated cardiomyopathy.? Was followed by supervisor [facility].? Has been on moderate dose statin and most recent lipid panel showing elevated total cholesterol and LDL.?.. ?Moderate persistent asthma:? Followed by Pulmonology. REcent PFT - showing modererate asthma vs COPD.? .? He reports his asthma has improved since starting Dupixent ?. ?Seizure disorder:? Seizure disorder has been recently well controlled. He denies any recent seizure activity. ? [facility] Medical History (Updated 09/12/23 @ 12:15 by Saúl Maier PA-C) Uvulitis Claustrophobia Takotsubo cardiomyopathy Schatzki's ring Gastritis Sleep apnea Diabetes Gastroparesis Migraine headache with aura Enlarged liver Postoperative hypothyroidism Thyroid cancer Vitamin D deficiency Multinodular thyroid Seizures ABPA (allergic bronchopulmonary aspergillosis) Myocardial infarct Seizures Asthma Surgical History (Updated 09/12/23 @ 12:10 by Saúl Maier PA-C) S/P total thyroidectomy History of esophagogastroduodenoscopy (EGD) S/P removal of thyroid nodule History of cholecystectomy Family History Maternal Grandmother Emphysema, unspecified Father Diabetes Mother No problems noted. Paternal Grandfather Liver cancer Social History Household Members: Family Housing: Apartment Are you a primary med care manager to a significant other at home: No Do you presently have visiting nurse or other home services: No Alcohol intake: former Comment: has poor balance Patient Tobacco Use Status: Never used Tobacco e-Cigarette/Vaping Use: Never Used Second Hand Smoke Exposure: No Substance Use Type: Marijuana Advance Directives Date on File: 05/20/23 service: No Current occupational status: disabled Current occupation: rt handed Cognitive needs: No Hearing needs: No Vision needs: No Questionnaire PHQ-9 Over the last 2 weeks, how often have you been bothered by any of the following problems? 1. Little interest or pleasure in doing things: several days 2. Feeling down, depressed, or hopeless: several days 3. Trouble falling or staying asleep, or sleeping too much: nearly every day 4. Feeling tired or having little energy: nearly every day 5. Poor appetite or overeating: more than half the days 6. Feeling bad about yourself - or that you are a failure or have let yourself or your family down: nearly every day 7. Trouble concentrating on things, such as reading the newspaper or watching television: nearly every day 8. Moving or speaking so slowly that other people could have noticed. Or the opposite - being so fidgety or restless that you have been moving around a lot more than usual: more than half the days 9. Thoughts that you would be better off or of hurting yourself in some way: not at all Total score: 18 Depression Screening Interpretation: Positive Depression Screening Follow-up: Existing condition and In treatment Depression Screening Done: Yes 40044 - PHQ-9 Billing: Yes Source: Developed by Drs. Ramses Nguyen, Debi Russ, Colin Rowell and colleagues, with an educational javy from [employer]. Thrive Questionnaire Date Thrive assessed: 05/21/23 AUDIT C Alcohol Use Questionnaire (AUDIT-C) 1. How often do you have a drink containing alcohol?: Never 3. How often do you have six or more drinks on one occasion?: Never Total Score: 0 MOOSE-7 AMB Questionnaire MOOSE-7 Date MOOSE - 7 assessed: 11/20/22 Source: Developed by Drs. Ramses Nguyen, Colin Roche and colleagues, with an educational javy from [employer]. Review of Systems Const Denies headache(s) Eyes Denies loss of vision ENT Denies vertigo, Denies dizziness, Denies headache(s) and Denies sore throat Card Denies chest pain, Denies leg edema and Denies lightheadedness Resp Denies cough, Denies hemoptysis and Denies wheezing GI Denies abdominal pain, Denies melena, Denies constipation, Denies diarrhea and Denies vomiting Denies dysuria, Denies urinary frequency and Denies urinary urgency Musc Denies arthralgias, Denies joint swelling, Denies numbness and Denies tingling Neuro Denies Abnormal speech present, Denies behavioral changes, Denies vertigo, Denies dizziness, Denies headache(s), Denies loss of vision, Denies memory loss, Denies numbness and Denies tingling Psych Denies anxiety, Denies behavioral changes, Denies depression, Denies memory loss and Denies panic attacks Nico/Lymph Denies easy bleeding and Denies easy bruising Aller/Immun Denies wheezing Physical exam (Primary Care) Vital Signs: Last Vital Signs Pulse 80 09/12/23 11:40 BP 90/68 09/12/23 11:40 Pulse Ox 99 09/12/23 11:40 Oxygen Delivery Method Room Air 09/12/23 11:40 BMI result Body Mass Index 29.6 Tobacco/Smoking Status: Tobacco use Status Tobacco use date assessed 09/12/23 09/12/23 11:41 Patient Tobacco Use Status Never used Tobacco 09/12/23 11:41 e-Cigarette/Vaping Use Never Used 09/12/23 11:41 PHQ-9: PHQ-9 Score PHQ-9: Total score 18 09/12/23 11:55 Depression Screening Interpretation: Positive Depression Screening Follow-up: Existing condition and In treatment Thrive Assessment: Date of Thrive Assessment Date Thrive assessed 05/21/23 09/12/23 11:41 Const General: healthy appearing, no acute distress, alert and awake Nutritional Appearance: well nourished Orientation/consciousness: oriented to person, oriented to place and oriented to time HENMT Ears: TM's normal bilaterally General nose exam: Normal nasal mucous membranes and turbinates present Eyes Conjunctivae: conjunctivae normal Sclerae: sclerae normal Pupils: Equal, round and reactive pupils present Neck Neck: Yes no lymphadenopathy and Yes no JVD Thyroid: Thyroid normal Carotids: no bruits Resp Effort & Inspection: normal respiratory effort and not tachypneic Auscultation: no crackles, no rales, no rhonchi and no wheezes Cardio Rate: regular rate Rhythm: regular rhythm Heart sounds: no murmurs and normal S1 and S2 GI Palpation (GI): Soft to palpation, nontender, no hepatomegaly and no splenomegaly Auscultation: normal bowel sounds Skin General skin exam: no rashes or lesions noted and dry skin Neuro General: oriented to person, oriented to place and oriented to time Cranial nerves: Yes Equal, round and reactive pupils present Speech: No Abnormal speech present Gait exam (Neuro): Normal gait present Motor exam (neuro): no tremor noted Extrem Right upper extremity: full ROM Left upper extremity: full ROM Right lower extremity: full ROM; no edema Left lower extremity: full ROM; no edema Psych Mental Status: mental status grossly normal Speech and movement: Normal speech and movement present Affect: normal affect Attitude: cooperative Thought process: Normal thought process present Office Procedures Flu Questionnaire Does the patient have a severe egg allergy?: No Does the patient have severe life threatening allergies?: No Does the patient have a fever or illness today?: No Has the patient ever had Guillain-Troy Syndrome?: No Has the patient ever had any past reaction to a flu shot?: No Results AMB Hemoglobin A1c AMB Hemoglobin A1c 7.1 % Last Edit by RAFA Cooper on 09/12/23 11:55 Immunizations flu vacc [id number] 6mos up(PF) 60 mcg(15 mcgx4)/0.5 mL IM syringe Performing Provider: Saúl Maier PA-C [facility] Administered by: RAFA Cooper on 09/12/23 11:55 Dose Route Admin Location Dispensed Lot Number Expiration Date NDC Cream Hauler 0.5 mL IM Left Deltoid 0.5 mL [id number] 03/16/24 [id number] [place] VIS Given Date VIS Provided VIS Publication Date 09/12/23 Single Vaccine 21 Eligibility Eligibility Date Funding Source Not VFC Eligible 09/12/23 Private Results Reviewed Results Reviewed: Laboratory Last Values Hgb A1c (Clinic) 7.1 % (4.0-6.0) H 09/12/23 11:55 Assessment and Plan Assessment & Plan (1) Severe persistent allergic asthma: Code(s): J45.50 - Severe persistent asthma, uncomplicated Plan: Patient reports his asthma is been fairly well controlled with current maintenance inhalers , Dupixent and Singulair. He is followed by pulmonology. He reports he rarely has to use his nebulizer anymore. (2) DMII (diabetes mellitus, type 2): Code(s): E11.9 - Type 2 diabetes mellitus without complications Qualifiers: Diabetes mellitus complication status: with hyperglycemia Diabetes mellitus chcf insulin use: without chcf use Qualified Code(s): E11.65 - Type 2 diabetes mellitus with hyperglycemia Plan: Patient's A1c at 7.1 today. Advised to restart taking metformin and reducing carbohydrates in his diet and he agrees to do so. Will check A1c and 3 months and still above 7 will consider increasing metformin (3) Thyroid cancer: Code(s): C73 - Malignant neoplasm of thyroid gland Plan: Needs Endocrinology follow-up, is status post total thyroidectomy. Continues on levothyroxine indefinitely. (4) Barretts esophagus: Code(s): K22.70 - Ramirez's esophagus without dysplasia Qualifiers: Ramirez's esophagus type: without dysplasia Qualified Code(s): K22.70 - Ramirez's esophagus without dysplasia Plan: Follows gastroenterology. Did have an endoscopy recently was complicated by inflammation of his uvula afterwards. Will discontinue his aspirin due to reports GI bleeding. Recent endoscopy showing Ramirez's esophagus . He is now on omeprazole 40 mg daily and would like to continue on this and see if this helps his GERD symptoms. (5) Seizure disorder: Code(s): G40.909 - Epilepsy, unspecified, not intractable, without status epilepticus Plan: Patient does not report any recent seizures. Continues on Keppra and divalproex. Has had EEGs in brain MRIs with which have been unremarkable. (6) S/P total thyroidectomy: Code(s): E89.0 - Postprocedural hypothyroidism Plan: As per HPI patient is status post thyroidectomy due to thyroid cancer. Has not had any recent follow-up with endocrinology. Continues on levothyroxine indefinitely. Orders: Orders TSH reflex Free T4 09/12/23 E89.0 - Postprocedural hypothyroidism Comprehensive [place]. Panel Fast 09/12/23 R73.09 - Other abnormal glucose Hemoglobin A1c 09/12/23 E11.65 - Type 2 diabetes mellitus with hyperglycemia AMB Hemoglobin A1c 09/12/23 Z13.9 - Encounter for screening, unspecified Lipid Panel Today I51.81 - Takotsubo syndrome Vitamin D 25-OH Total 09/12/23 E55.9 - Vitamin D deficiency, unspecified Influenza [id number] Immunization 09/12/23 Z23 - Encounter for immunization Referrals Endocrinology Referral C73 - Malignant neoplasm of thyroid gland, E89.0 - Postprocedural hypothyroidism Medications: Resumed metformin ER 500 mg PO DAILY 90 days 90 tabs 2RF R73.09 - Other abnormal glucose Coding Level of Care Code Est Pt Level 4 (02995) Diagnoses Severe persistent allergic asthma J45.50 Type 2 diabetes mellitus with hyperglycemia, without long-term current use of insulin E11.65 Diabetes mellitus complication status: with hyperglycemia Diabetes mellitus keno terminal operator insulin use: without keno terminal operator use Thyroid cancer C73 Ramirez's esophagus without dysplasia K22.70 Ramirez's esophagus type: without dysplasia Seizure disorder G40.909 S/P total thyroidectomy E89.0
== END 2023-09-12 12:16 | disposition home or self-care (01) ==
PROVIDERS: PCP Physician Assistant; Visit Provider Physician Assistant
DX: Z23 Encounter for immunization (principal); J45.50 Severe persistent asthma, uncomplicated; G40.909 Epilepsy, unspecified, not intractable, without status epilepticus; E11.65 Type 2 diabetes mellitus with hyperglycemia; C73 Malignant neoplasm of thyroid gland
CPT/HCPCS: 83036; 90471; 90686; 99214

== ENCOUNTER 2023-09-18 11:07 | Outpatient (AMB) | payer OTHER, SELFPAY ==
--- NOTE | 2023-09-18 11:11 | A.OFFVIS_ITS ---
Intake Vital Signs 09/18/23 11:15 Height 5 ft 5 in Weight 178 lb 9.191 oz BMI 29.7 BP 113/67 Blood Pressure Location Lt brachial Position Sitting Pulse 73 Intake Visit Reasons: 6 week follow up Intake Note: Terrance presents in the office as a 6 week follow up. CC: He states that he is hoping for no bad news but he is feeling okay! Allergies cat dander [CATS] Allergy (Mild, Verified 09/18/23 11:15) GENERALIZED ALLERGY SYMPTOMS dog dander [DOGS] Allergy (Mild, Verified 09/18/23 11:15) GENERALIZED ALLERGY SYMPTOMS tree and shrub pollen [TREE] Allergy (Mild, Verified 09/18/23 11:15) GENERALIZED ALLERGY SYMPTOMS FROM [place] HPI 6 week follow up HPI Details LAST VISIT Gastritis Barretts esophagus GERD (gastroesophageal reflux disease) Constipation Abdominal bloating Dysphagia Gastroparesis Schatzki's ring Plan As mentioned above in HPI biopsy results and upper endoscopy results reviewed with patient in detail. Patient will continue his PPI management, will take sucralfate twice a day. Discussed with patient the importance of also avoiding dietary triggers. Patient will be started on Welchol. Hopefully his symptoms will get better. Ursodiol and Creon were not helpful. Mild gastroparesis, now patient is moving his bowels better with Linzess. He can continue taking it on a daily basis. Discussed with patient eating smaller meals and more often. Low FODMAP diet discussed with patient. I will see him in 6 weeks, if symptoms continues patient will be sent for fundoplication. He is agreeable to this plan and verbalizes understanding of instructions. He was given the opportunity to ask questions and all questions answered. ? Thank you for allowing me to participate in his care Medications New colesevelam (WelChol) 1,250 mg (2 x 625 mg) PO BID 120 tabs 2R F Discontinued ursodiol Discontinued Reason: Doctor's Order 250 mg PO BID 60 tabs 2RF [id number] 24,000-76,000 -120,000 unit administer with meals and/or snacks Discontinued Reason: Change Referral Type 1 cap PO QID 120 caps 2RF K58.9 TODAY'S VISIT patient is here today for follow-up. Patient reports that since he was started on Welchol he has been feeling little better. He continues to take omeprazole in the morning and sucralfate at noon and at bedtime. His symptoms of acid reflux has significantly subsided. Patient reports that he is moving his bowels well without any issues. Patient no longer needs to use Linzess. Patient denies any nausea or vomiting. Denies any abdominal pain or cramping. Occasional symptoms of abdominal bloating. Patient try to change his diet avoiding carbs and eating more fish and vegetables. Patient denies dyspepsia, dysphagia or odynophagia. Denies melena, hematochezia, unintentional weight loss or ribbon like stools. [facility] Medical History Uvulitis Claustrophobia Takotsubo cardiomyopathy Schatzki's ring Gastritis Sleep apnea Diabetes Gastroparesis Migraine headache with aura Enlarged liver Postoperative hypothyroidism Thyroid cancer Vitamin D deficiency Multinodular thyroid Seizures ABPA (allergic bronchopulmonary aspergillosis) Myocardial infarct Seizures Asthma Surgical History S/P total thyroidectomy History of esophagogastroduodenoscopy (EGD) S/P removal of thyroid nodule History of cholecystectomy Family History (Updated 09/18/23 @ 11:16 by RAFA Loving) Maternal Grandmother Emphysema, unspecified Father Diabetes Mother No problems noted. Paternal Grandfather Liver cancer Colon cancer Social History Household Members: Family Housing: Apartment Are you a primary mall plant caretaker to a significant other at home: No Do you presently have visiting nurse or other home services: No Alcohol intake: former Comment: has poor balance Patient Tobacco Use Status: Never used Tobacco e-Cigarette/Vaping Use: Never Used Second Hand Smoke Exposure: No Substance Use Type: Marijuana Advance Directives Date on File: 05/20/23 service: No Current occupational status: disabled Current occupation: rt handed Cognitive needs: No Hearing needs: No Vision needs: No Review of Systems Const Denies weight gain and Denies weight loss ENT Reports no additional complaints, Denies dysphagia and Denies odynophagia Card Reports no additional complaints Resp Reports no additional complaints GI Denies abdominal pain, Denies belching, Denies melena, Denies bloating, Denies change in bowel habits, Denies dysphagia, Denies excessive flatus, Denies d yspepsia, Denies heartburn, Denies diarrhea, Reports loose stools, Denies nausea, Denies odynophagia and Denies vomiting Reports no additional complaints Musc Reports no additional complaints Neuro Reports no additional complaints Psych Reports no additional complaints Endo Reports no additional complaints Physical Exam Vital Signs: Last Vital Signs Pulse 73 09/18/23 11:15 BP 113/67 09/18/23 11:15 BMI result Body Mass Index 29.7 Const General: healthy appearing, no acute distress and well developed Nutritional Appearance: well nourished Orientation/consciousness: patient oriented x3 HEENT Head: Yes normal to inspection, Yes normocephalic and Yes atraumatic Face and sinus: Yes normal facial exam Mouth: Normal oral and palatal mucosa present Throat: Yes posterior oropharynx normal, Yes tonsils normal and Yes uvula midline Eyes General: appearance normal, both eyes and all related structures Neck Neck: Yes normal visual inspection, Yes full ROM and Yes trachea midline Thyroid: Thyroid normal Resp Effort & Inspection: normal respiratory effort, able to speak in complete sentences, no tracheal deviation and symmetric chest movement Auscultation: clear to auscultation bilaterally Cardio Rate: regular rate GI Inspection: Yes normal to inspection and No distended Palpation (GI): Soft to palpation, not firm, nontender and No hepatosplenomegaly present Auscultation: normal bowel sounds General: Yes no CVA tenderness Back/Spine/Pelvis Back: no CVA tenderness Skin General skin exam: elasticity normal, turgor normal and dry skin Neuro General: patient oriented x3 Psych Appearance: grossly normal Mental Status: mental status grossly normal Affect: normal affect Assessment & Plan Assessment & Plan (1) Gastritis: Code(s): K29.70 - Gastritis, unspecified, without bleeding Qualifiers: Gastritis type: superficial Chronicity: unspecified Gastritis bleeding: without bleeding Qualified Code(s): K29.30 - Chronic superficial gastritis without bleeding (2) Barretts esophagus: Code(s): K22.70 - Ramirez's esophagus without dysplasia Qualifiers: Ramirez's esophagus type: without dysplasia Qualified Code(s): K22.70 - Ramirez's esophagus without dysplasia (3) GERD (gastroesophageal reflux disease): Code(s): K21.9 - Gastro-esophageal reflux disease without esophagitis Qualifiers: Esophagitis presence: esophagitis presence not specified Qualified Code(s): K21.9 - Gastro-esophageal reflux disease without esophagitis (4) Constipation: Code(s): K59.00 - Constipation, unspecified Qualifiers: Constipation type: slow transit constipation Qualified Code(s): K59.01 - Slow transit constipation (5) Abdominal bloating: Code(s): R14.0 - Abdominal distension (gaseous) (6) Dysphagia: Code(s): R13.10 - Dysphagia, unspecified Qualifiers: Dysphagia type: pharyngoesophageal phase Qualified Code(s): R13.14 - Dysphagia, pharyngoesophageal phase (7) Gastroparesis: Code(s): K31.84 - Gastroparesis (8) Schatzki's ring: Code(s): K22.2 - Esophageal obstruction Plan Continue taking Welchol as prescribed. Avoid dietary triggers and late night snacking. Staying upright for minimum 3 hours after meals discussed with patient. Patient can continue taking omeprazole in the morning and we will change sucralfate to bedtime. Patient reports that he is feeling significantly better. Patient was encouraged to try to control his sugar better with diet mostly and continue his medications as prescribed by his PCP. I will see patient in 6 months, sooner on as needed basis. Patient is agreeable to this pl an and verbalizes understanding of instructions. He was given the opportunity to ask questions all questions answered. Thank you for allowing me to participate in his care Medications: Changed From sucralfate Please take it at noon time and at bedtime 10 mL PO BID 400 mL 3RF K21.9 - Gastro-esophageal reflux disease without esophagitis To sucralfate Please take it at bedtime 10 mL PO BEDTIME 400 mL 3RF K21.9 - Gastro-esophag eal reflux disease without esophagitis Refilled omeprazole 40 mg PO DAILY@0630 90 caps 2RF colesevelam (WelChol) 1,250 mg (2 x 625 mg) PO BID 120 tabs 2RF Discontinued linaclotide (Linzess) Discontinued Reason: Doctor's Order 290 mcg PO QAM 30 caps 4RF K59.00 - Constipation, unspecified Coding Level of Care Code Est Pt Level 4 (66670) Diagnoses Superficial gastritis without hemorrhage, unspecified chronicity K29.30 Gastritis type: superficial Chronicity: unspecified Gastritis bleeding: without bleeding Ramirez's esophagus without dysplasia K22.70 Ramirez's esophagus type: without dysplasia Gastroesophageal reflux disease, unspecified whether esophagitis present K21.9 Esophagitis presence: esophagitis presence not specified Slow transit constipation K59.01 Constipation type: slow transit constipation Abdominal bloating R14.0 Pharyngoesophageal dysphagia R13.14 Dysphagia type: pharyngoesophageal phase Gastroparesis K31.84 Schatzki's ring K22.2 Time Spent (min) 35 Comment 20 minutes spent with patient and additional 15 minutes spent reviewing his records
[2023-09-18 11:15] VITALS: BP 113/67; PULSE 73; BMI 29.7
== END 2023-09-18 13:13 | disposition home or self-care (01) ==
PROVIDERS: PCP Physician Assistant; Visit Provider Nurse Practitioner Family
DX: K29.30 Chronic superficial gastritis without bleeding (principal); K22.70 Barrett's esophagus without dysplasia; K21.9 Gastro-esophageal reflux disease without esophagitis; K59.01 Slow transit constipation; R14.0 Abdominal distension (gaseous); R13.14 Dysphagia, pharyngoesophageal phase; K31.84 Gastroparesis; K22.2 Esophageal obstruction
CPT/HCPCS: 99214

== ENCOUNTER → 2023-09-18 11:07 | Outpatient (BNVA) | payer OTHER, SELFPAY | PROVIDERS: PCP Physician Assistant; Visit Provider Nurse Practitioner Family | DX: K29.30 Chronic superficial gastritis without bleeding (principal); K22.70 Barrett's esophagus without dysplasia; K21.9 Gastro-esophageal reflux disease without esophagitis; K59.01 Slow transit constipation; R14.0 Abdominal distension (gaseous); R13.14 Dysphagia, pharyngoesophageal phase; K31.84 Gastroparesis; K22.2 Esophageal obstruction; Z79.899 Other long term (current) drug therapy | CPT/HCPCS: 99212 ==

== ENCOUNTER 2023-10-01 06:23 | Outpatient (REF) | payer OTHER, SELFPAY ==
[2023-10-01 07:52] LABS: Estimated Average Glucose 134 mg/dL; Hemoglobin A1c % 6.3 % (<6.0)
[2023-10-01 08:16] LABS: Alanine Aminotransferase 28 U/L (0-40); Albumin Level 4.5 g/dL (3.5-5.0); Alkaline Phosphatase 43 U/L (39-117); Anion Gap 15 (12-20); Aspartate Amino Transferase 24 U/L (5-37); Bilirubin Total 0.2 mg/dL (0.0-1.0); Blood Urea Nitrogen 14 mg/dL (9-16); Calcium 9.7 mg/dL (8.4-10.2); Carbon Dioxide 24 mmol/L (22-29); Chloride 105 mmol/L (96-108); Cholesterol 349 mg/dL (<200); Estimated Glomerular Filt Rate > 60; Glucose Fasting 119 mg/dL (60-99); HDL Cholesterol 36 mg/dL (>40); Potassium 4.4 mmol/L (3.3-5.1); Sodium 140 mmol/L (135-145); Total Protein 7.3 g/dL (6.5-8.0); Triglycerides 472 mg/dL (<150)
[2023-10-01 08:26] LABS: TSH reflex Free T4 55.33 uIU/mL (0.32-4.0)
[2023-10-01 08:35] LABS: Free T4 (Free Thyroxine) 1.19 ng/dL (0.71-1.85)
[2023-10-05 04:08] LABS: Thyroglobulin Antibody <1 IU/mL (<=1); Thyroglobulin Level 4.6 ng/mL
== END 2023-10-01 06:24 | disposition home or self-care (01) ==
LOC: HO.LAB 06:23
PROVIDERS: Absent Provider Internal Medicine Endocrinology, Diabetes & Metabolism; PCP Physician Assistant; Visit Provider Physician Assistant
DX: C73 Malignant neoplasm of thyroid gland (principal); E11.65 Type 2 diabetes mellitus with hyperglycemia; E55.9 Vitamin D deficiency, unspecified; E89.0 Postprocedural hypothyroidism; I51.81 Takotsubo syndrome
CPT/HCPCS: 36415; 80053; 80061; 82306; 83036; 84432; 84439; 84443; 86800

== ENCOUNTER 2023-10-04 10:35 | Outpatient (AMB) | payer OTHER, SELFPAY ==
[2023-10-04 10:47] VITALS: BP 90/66; PULSE 80; BMI 29.6
--- NOTE | 2023-10-04 10:47 | A.OFFVIS_ITS ---
Intake Vital Signs 10/04/23 10:47 Height 5 ft 5 in Weight 177 lb 14.609 oz BMI 29.6 BP 90/66 Blood Pressure Location Lt brachial Position Sitting Pulse 80 Pulse Source Pulse Oximeter Intake Visit Reasons: F/U History of thyroid cancer-confirmed Intake Note: Patient present today for Thyroid cancer follow up visit. Storm Door Maker Required: No Accompanied by: Self / Same As Patient Allergies cat dander [CATS] Allergy (Mild, Verified 10/04/23 10:54) GENERALIZED ALLERGY SYMPTOMS dog dander [DOGS] Allergy (Mild, Verified 10/04/23 10:54) GENERALIZED ALLERGY SYMPTOMS tree and shrub pollen [TREE] Allergy (Mild, Verified 10/04/23 10:54) GENERALIZED ALLERGY SYMPTOMS FROM [place] Medication List - Last Reconciled 10/04/23 by Ramses Chi MD aspirin 81 mg PO DAILY 90 days atorvastatin 40 mg PO BEDTIME 90 days bisacodyl (Dulcolax (bisacodyl)) 10 mg (2 x 5 mg) PO BEDTIME Carafate (sucralfate) 10 mL PO BEDTIME NS carvedilol 3.125 mg PO BID 90 days cholecalciferol (vitamin D3) 50 mcg PO DAILY colesevelam (WelChol) 1,250 mg (2 x 625 mg) PO BID divalproex 1,500 mg PO QAM dupilumab (Dupixent) 300 mg (2 mL) subcut Q2W 28 days gabapentin 300 mg PO BEDTIME PRN levetiracetam 1,000 mg PO BID levothyroxine 175 mcg PO DAILY lisinopril 10 mg PO DAILY 90 days metformin ER 500 mg PO DAILY 90 days montelukast 10 mg PO BEDTIME 90 days nystatin 5 mL PO DAILY PRN 30 days omeprazole 40 mg PO DAILY@0630 prednisone 10 mg PO DAILY riboflavin (vitamin B2) 400 mg PO DAILY 30 days sertraline 100 mg PO DAILY 90 days [Sharps container As directed] simethicone (Gas Relief 80 (simethicone)) 80 mg PO BID-QID PRN theophylline ER 200 mg (1/2 x 400 mg) PO DAILY tiotropium bromide 2.5 mcg/actuation (Spiriva Respimat) 2 puffs PO DAILY PRN Ventolin HFA 90 mcg/actuation (albuterol sulfate) 2 puffs PO Q6H PRN NS HPI HPI Comments History of Present Illness Details 42 YO M with PMHx seizure disorder who is seen in F/U for thyroid cancer after his total thyroidectomy 11/21/2021 revealed multifocal PTC (classic type) [id number]. He is seen today in F/U. The patient last saw Dr. Calderon on 02/01/2023 Was initially diagnosed with multinodular thyroid in Oct 2020 with thyroid US revealing multiple bilateral thyroid nodules. He underwent FNA biopsy 06/16/2021 of his RMP 1.2 cm thyroid nodule with cytology revealing atypia of undetermined significance ([place] Category III). Affirma was suspicious, and an HRAS mutation was present, giving the risk of malignancy of 75%. He was referred to Dr. Carlos and the decision was made to proceed with a total thyroidectomy. He underwent a total thyroidectomy 11/21/2021. This revealed classic PTC, multifocal with 3 foci. R upper 1.1 cm, R mid 0.5 cm, L mid 0.6 cm. There was no angioinvasion, no lymphatic invasion, and no perineural invasion. Marings were negative. 0/3 lymph nodes examined positive for mets. This was classified as [id number], low risk for recurrence. Postoperatively he was started on levothyroxine, now on 175 mcg PO daily. He had opted for I131 ablation which was to be completed via thyrogen stimulation. He received his first dose of thyrogen, and that evening had chest pressure with LOC x 2. He presented to the ED at [facility] and was admitted for 3 days for cardiac rule out. He states that he had multiple seizures while hospitalized. He reports his cardiac workup was negative. Labs after his first dose of thyrogen 03/15/22 TSH 50.8, TG 0.6, TGAB <1. He does report some difficulty swallowing, but otherwise has no complaints. Swallowing study did reveal some delayed UES relaxation. US Head and Neck: 11/22/2022 FINDINGS: ? RIGHT NECK: 1. Level 2 lymph node measures 2.1 x 0.7 x 1.8 cm. It has a normal architecture. 2. Level 2 lymph node measures 0.9 x 0.4 x 0.4 cm and has normal architecture. Previously it measured 0.6 x 0.2 x 0.3 cm. 3. Level 2 lymph node measures 0.7 x 0.3 x 0.4 cm. It is new and has normal architecture. 4. Level 4 lymph node measures 0.6 x 0.3 x 0.6 cm and has normal architecture. Previously measured 0.6 x 0.2 x 0.3 cm. LEFT NECK: 1. Level 2 lymph node measures 1.7 x 0.7 x 2.1 cm. It has normal architecture. Previously it measured 1.8 x 0.6 x 0.8 cm. 2. Level 4 lymph node measures 1.1 x 0.5 x 0.6 cm. It has normal architecture. Previously it measured 0.7 x 0.5 x 0.5 cm US/US soft tiss head and/or neck IMPRESSION: Benign-appearing bilateral neck lymph nodes as described above. Labs: Laboratory Tests 11/27/22 11/27/22 11/27/22 07:32 07:32 07:32 Sodium 142 Potassium 4.9 Creatinine 0.81 Estimated GFR > 60 25-OH Vitamin D To patricia 17.9 TSH 0.05 L Free T4 1.31 PTH Intact 35 Calcium (PTH Intac t) 10.1 Thyroglobulin Anti body <1 PFSH Medical History Uvulitis Claustrophobia Takotsubo cardiomyopathy Schatzki's ring Gastritis Sleep apnea Diabetes Gastroparesis Migraine headache with aura Enlarged liver Postoperative hypothyroidism Thyroid cancer Vitamin D deficiency Multinodular thyroid Seizures ABPA (allergic bronchopulmonary aspergillosis) Myocardial infarct Seizures Asthma Surgical History S/P total thyroidectomy History of esophagogastroduodenoscopy (EGD) S/P removal of thyroid nodule History of cholecystectomy Family History (Updated 09/18/23 @ 11:16 by RAFA Loving) Maternal Grandmother Emphysema, unspecified Father Diabetes Mother No problems noted. Paternal Grandfather Liver cancer Colon cancer Social History Household Members: Family Housing: Apartment Are you a primary school childcare attendant to a significant other at home: No Do you presently have visiting nurse or other home services: No Alcohol intake: former Comment: has poor balance Patient Tobacco Use Status: Never used Tobacco e-Cigarette/Vaping Use: Never Used Second Hand Smoke Exposure: No Substance Use Type: Marijuana Advance Directives Date on File: 05/20/23 service: No Current occupational status: disabled Current occupation: rt handed Cognitive needs: No Hearing needs: No Vision needs: No Physical Exam Const Other: Healed scar status post thyroidectomy. There is no cervical adenopathy palpated Assessment & Plan Assessment & Plan (1) Thyroid cancer: Code(s): C73 - Malignant neoplasm of thyroid gland Plan: This is a 42-year-old white male with a history of a total thyroidectomy 11/21/2021. This revealed classic PTC, multifocal with 3 foci. R upper 1.1 cm, R mid 0.5 cm, L mid 0.6 cm. There was no angioinvasion, no lymphatic invasion, and no perineural invasion. Marings were negative. 0/3 lymph nodes examined positive for mets. This was classified as [id number], low risk for recurrence. He is currently on levothyroxine 175 mcg. His TSH is markedly elevated. A thyroglobulin level is pending Plan is to increase levothyroxine to 200 mcg and to change to branded Synthroid try to get more consistency. Will recheck TSH and free T4 in about 4 weeks' time. Will wait thyroglobulin level. If TSH remains persistently elevated could indicate problem with absorption and may switch to Tirosint Orders: Orders Free T4 (Free Thyroxine) 4 Weeks C73 - Malignant neoplasm of thyroid gland Thyroid Stimulating Hormone 4 Weeks C73 - Malignant neoplasm of thyroid gland Medications: New Synthroid (levothyroxine) 200 mcg PO DAILY 30 tabs 5RF NS Discontinued levothyroxine Discontinued Reason: Doctor's Order 175 mcg PO DAILY 90 tabs 1RF E89.0 - Postprocedural hypothyroidism Coding Level of Care Code Est Pt Level 3 (39779) Diagnoses Thyroid cancer C73
== END 2023-10-04 11:20 | disposition home or self-care (01) ==
PROVIDERS: PCP Physician Assistant; Visit Provider Internal Medicine Endocrinology, Diabetes & Metabolism
DX: C73 Malignant neoplasm of thyroid gland (principal)
CPT/HCPCS: 99213

== ENCOUNTER → 2023-10-04 10:35 | Outpatient (BNVA) | payer OTHER, SELFPAY | PROVIDERS: Visit Provider Internal Medicine Endocrinology, Diabetes & Metabolism | DX: C73 Malignant neoplasm of thyroid gland (principal) | CPT/HCPCS: 99212 ==

== ENCOUNTER 2023-12-11 11:23 | Outpatient (AMB) | payer OTHER, SELFPAY ==
--- NOTE | 2023-12-11 11:29 | A.OFFPC_ITS ---
Vital Signs 12/11/23 11:30 Height 5 ft 5 in Weight 178 lb BMI 29.6 BP 110/76 Blood Pressure Location Lt brachial Position Sitting Pulse 96 Pulse Source Pulse Oximeter Pulse Oximetry (%) 95 Oxygen Delivery Method Room Air Intake Visit Reasons: 3 month f/u Beet Topper Required: No Accompanied by: Self / Same As Patient Allergies cat dander [CATS] Allergy (Mild, Verified 12/11/23 12:20) GENERALIZED ALLERGY SYMPTOMS dog dander [DOGS] Allergy (Mild, Verified 12/11/23 12:20) GENERALIZED ALLERGY SYMPTOMS tree and shrub pollen [TREE] Allergy (Mild, Verified 12/11/23 12:20) GENERALIZED ALLERGY SYMPTOMS FROM [place] Medication List - Last Reconciled 12/11/23 by Saúl Maier PA-C aspirin 81 mg PO DAILY 90 days atorvastatin 40 mg PO BEDTIME 90 days bisacodyl (Dulcolax (bisacodyl)) 10 mg (2 x 5 mg) PO BEDTIME Carafate (sucralfate) 10 mL PO BEDTIME NS carvedilol 3.125 mg PO BID 90 days cholecalciferol (vitamin D3) 50 mcg PO DAILY clobazam 10 mg PO DAILY colesevelam (WelChol) 1,250 mg (2 x 625 mg) PO BID dupilumab (Dupixent) 300 mg (2 mL) subcut Q2W 28 days gabapentin 300 mg PO BEDTIME PRN 30 days lisinopril 10 mg PO DAILY 90 days metformin ER 500 mg PO DAILY 90 days montelukast 10 mg PO BEDTIME 90 days nystatin 5 mL PO DAILY PRN 30 days omeprazole 40 mg PO DAILY@0630 oxcarbazepine 600 mg PO BID riboflavin (vitamin B2) 400 mg PO DAILY 30 days sertraline 100 mg PO DAILY 90 days [Sharps container As directed] simethicone (Gas Relief 80 (simethicone)) 80 mg PO BID-QID PRN Synthroid (levothyroxine) 200 mcg PO DAILY NS theophylline ER 200 mg (1/2 x 400 mg) PO DAILY tiotropium bromide 2.5 mcg/actuation (Spiriva Respimat) 2 puffs PO DAILY PRN Ventolin HFA 90 mcg/actuation (albuterol sulfate) 2 puffs PO Q6H PRN NS Tobacco use date assessed: 12/11/23 Dental Screening Dental Screen Date: 12/11/23 Did you have a dental visit in the last 12 months?: Yes Did you have a dental problem in the last 6 months where you did not have access to dental care?: No Was dental information given to patient?: Patient has dentist HPI 3 month f/u HPI Details Terrance is 43y ear-old male here today for a follow up visit. ?Patient? has a past medical history significant for seizure disorder, moderate persistent? asthma, depression and anxiety, thyroid cancer status post thyroidectomy. Seizure disorder: Has followed up with [facility]rology and did a video EEG which he reports did see epileptic activity. His seizure medication was changed to oxy carbamazepine and clobazam. Unfortunately has been experiencing intolerable side effects of sweating, lethargy and slow speech. He does report having seizure-like activity( wetting the bed, biting lower lip during sleep) even on new seizure medication Will be following up with Neurology in the next few weeks. CHRONIC MEDICAL CONDITIONS .. Type 2 diabetes: Most recent A1c improved 6.3. Patient does report taking metformin 500 daily. He does admit to dietary indiscretion as a side effect his seizure medications. History of?thyroid cancer: He is status post total thyroidectomy. Continues on levothyroxine indefinitely. Most recent TSH elevated in his levothyroxine has been increased to 200 mcg. He has lost follow-up with endocrinology and needs referral for thyroid cancer surveillance. ?.. ? Anxiety: Patient he is? seeing therapist (Junito) at [facility] here at [facility]. Patient continues? on Zoloft .. History of cardiomyopathy:? Patient has a history of dilated cardiomyopathy.? Was followed by coat operator.? Has been on moderate dose statin and most recent lipid panel showing elevated total cholesterol and LDL.?.. ?Moderate persistent asthma:? Followed by Pulmonology. REcent PFT - showing modererate asthma vs COPD. He does continue on Dupixent which has really helped control his asthma symptoms. He reports as of late his wheezing has been more evident and he attributes this to the changes in weather.. ?. ? COUNTS INCLUDE 234 BEDS AT THE [facility] Medical History Uvulitis Claustrophobia Takotsubo cardiomyopathy Schatzki's ring Gastritis Sleep apnea Diabetes Gastroparesis Migraine headache with aura Enlarged liver Postoperative hypothyroidism Thyroid cancer Vitamin D deficiency Multinodular thyroid Seizures ABPA (allergic bronchopulmonary aspergillosis) Myocardial infarct Seizures Asthma Surgical History S/P total thyroidectomy History of esophagogastroduodenoscopy (EGD) S/P removal of thyroid nodule History of cholecystectomy Family History Maternal Grandmother Emphysema, unspecified Father Diabetes Mother No problems noted. Paternal Grandfather Liver cancer Colon cancer Social History Household Members: Family Housing: Apartment Are you a primary insurance healthcare representative to a significant other at home: No Do you presently have visiting nurse or other home services: No Alcohol intake: former Comment: has poor balance Patient Tobacco Use Status: Never used Tobacco e-Cigarette/Vaping Use: Never Used Second Hand Smoke Exposure: No Substance Use Type: Marijuana Advance Directives Date on File: 05/20/23 service: No Current occupational status: disabled Current occupation: rt handed Cognitive needs: No Hearing needs: No Vision needs: No Questionnaire PHQ-9 Over the last 2 weeks, how often have you been bothered by any of the following problems? 1. Little interest or pleasure in doing things: several days 2. Feeling down, depressed, or hopeless: several days 3. Trouble falling or staying asleep, or sleeping too much: nearly every day 4. Feeling tired or having little energy: nearly every day 5. Poor appetite or overeating: nearly every day 6. Feeling bad about yourself - or that you are a failure or have let yourself or your family down: more than half the days 7. Trouble concentrating on things, such as reading the newspaper or watching t elevision: nearly every day 8. Moving or speaking so slowly that other people could have noticed. Or the opposite - being so fidgety or restless that you have been moving around a lot more than usual: more than half the days 9. Thoughts that you would be better off or of hurting yourself in some way: not at all Total score: 18 Depression Screening Interpretation: Positive Depression Screening Follow-up: Existing condition and In treatment Depression Screening Done: Yes 88843 - PHQ-9 Billing: Yes Source: Developed by Drs. Ramses Nguyen, Debi Russ, Colin Rowell and colleagues, with an educational javy from [employer]. Thrive Questionnaire Date Thrive assessed: 12/11/23 I am a: Patient What is your living situation today?: I have a steady place to live Within the past 12 months, did the food you bought not last and you didn't have the money to get more?: Never true Within the past 12 months, did you worry whether your food would run out before you got money to buy more?: Never true Do you have trouble paying for medicines?: No Do you have trouble getting transportation to medical appointments?: No Do you have trouble paying your heating and electricity bill?: No Do you have trouble taking care of your child, family member or friend?: No Do you have trouble with day-to-day activities such as bathing, preparing meals, shopping, managing finances, etc.?: No Are you currently unemployed and looking for a job?: No Are you interested in more education?: No Please select the resources that you would like help with: None Currently or been in a relationship where the following occur: no concerns reported THRIVE Score: 0 AUDIT C Alcohol Use Questionnaire (AUDIT-C) 1. How often do you have a drink containing alcohol?: Never 3. How often do you have six or more drinks on one occasion?: Never Total Score: 0 MOOSE-7 AMB Questionnaire MOOSE-7 Date MOOSE - 7 assessed: 12/11/23 Feeling nervous, anxious, or on edge: 3 = Nearly every day Not being able to stop or control worryin = More than half the days Worrying too much about different things: 3 = Nearly every day Trouble relaxin = Nearly every day Being so restless that it is hard to sit still: 2 = More than half the days Becoming easily annoyed or irritable: 3 = Nearly every day Feeling afraid as if something awful might happen: 3 = Nearly every day Total MOOSE-7 score (0-4 normal; 5-9 mild; 10-14 moderate; 15-21 severe): 19 Source: Developed by Drs. Ramses Nguyen, Debi Russ, Colin Rowell and colleagues, with an educational javy from [employer]. MOOSE-7 Assessment Billing MOOSE-7 Assessment Tool: MOOSE-7 Assessment 74447 Review of Systems Const Denies headache(s) Eyes Denies loss of vision ENT Denies vertigo, Denies dizziness, Denies headache(s) and Denies sore throat Card Denies chest pain, Denies leg edema and Denies lightheadedness Resp Denies cough, Denies hemoptysis and Denies wheezing GI Denies abdominal pain, Denies melena, Denies constipation, Denies diarrhea and Denies vomiting Denies dysuria, Denies urinary frequency and Denies urinary urgency Musc Denies arthralgias, Denies joint swelling, Denies numbness and Denies tingling Neuro Denies Abnormal speech present, Denies behavioral changes, Denies vertigo, Denies dizziness, Denies headache(s), Denies loss of vision, Denies memory loss, Denies numbness, Reports seizure-like activity and Denies tingling Psych Denies anxiety, Denies behavioral changes, Denies depression, Denies memory loss and Denies panic attacks Nico/Lymph Denies easy bleeding and Denies easy bruising Aller/Immun Denies wheezing Physical exam (Primary Care) Vital Signs: Last Vital Signs Pulse 96 12/11/23 11:30 BP 110/76 12/11/23 11:30 Pulse Ox 95 12/11/23 11:30 Oxygen Delivery Method Room Air 12/11/23 11:30 BMI result Body Mass Index 29.6 Tobacco/Smoking Status: Tobacco use Status Tobacco use date assessed 12/11/23 12/11/23 11:32 Patient Tobacco Use Status Never used Tobacco 12/11/23 11:29 Tobacco use type 09/12/23 12:16 e-Cigarette/Vaping Use Never Used 12/11/23 11:29 PHQ-9: PHQ-9 Score PHQ-9: Total score 18 12/11/23 12:32 Depression Screening Interpretation: Positive Depression Screening Follow-up: Existing condition and In treatment Thrive Assessment: Date of Thrive Assessment Date Thrive assessed 12/11/23 12/11/23 11:38 Currently or been in a relationship where the following occur: no concerns reported Const General: healthy appearing, no acute distress, alert and awake Nutritional Appearance: well nourished Orientation/consciousness: oriented to person, oriented to place and oriented to time HENMT Ears: TM's normal bilaterally General nose exam: Normal nasal mucous membranes and turbinates present Eyes Conjunctivae: conjunctivae normal Sclerae: sclerae normal Pupils: Equal, round and reactive pupils present Neck Neck: Yes no lymphadenopathy and Yes no JVD Thyroid: Thyroid normal Carotids: no bruits Resp Effort & Inspection: normal respiratory effort and not tachypneic Auscultation: no crackles, no rales, no rhonchi and wheezes Cardio Rate: regular rate Rhythm: regular rhythm Heart sounds: no murmurs and normal S1 and S2 GI Palpation (GI): Soft to palpation, nontender, no hepatomegaly and no splenomegaly Auscultation: normal bowel sounds Skin General skin exam: no rashes or lesions noted and dry skin Neuro General: oriented to person, oriented to place and oriented to time Cranial nerves: Yes Equal, round and reactive pupils present Speech: No Abnormal speech present Gait exam (Neuro): Normal gait present Motor exam (neuro): no tremor noted Extrem Right upper extremity: full ROM Left upper extremity: full ROM Right lower extremity: full ROM; no edema Left lower extremity: full ROM; no edema Psych Mental Status: mental status grossly normal Speech and movement: Normal speech and movement present Affect: normal affect Attitude: cooperative Thought process: Normal thought process present Assessment and Plan Assessment & Plan (1) Seizure disorder: Code(s): G40.909 - Epilepsy, unspecified, not intractable, without status epilepticus Plan: Was on Keppra and divalproex though was having breakthrough seizures. Did see a seizure specialist at [facility] and did a video EEG which did show epileptic activity and his seizure medications were change. Unfortunately having side effect to his new seizure medications that are pretty much intolerable to patient. Also reports some breakthrough seizure activity even on new seizure medication. Will be following up with Neurology discuss further management treatment.. . (2) Severe persistent allergic asthma: Code(s): J45.50 - Severe persistent asthma, uncomplicated Plan: Patient reports his asthma is been fairly well controlled with current morenita ntenance inhalers , Dupixent and Singulair. He is followed by pulmonology. He reports he rarely has to use his nebulizer anymore. (3) DMII (diabetes mellitus, type 2): Code(s): E11.9 - Type 2 diabetes mellitus without complications Qualifiers: Diabetes mellitus complication status: with hyperglycemia Diabetes mellitus usp insulin use: without long filler cigar roller machine use Qualified Code(s): E11.65 - Type 2 diabetes mellitus with hyperglycemia Plan: Patient's A1c most recently at 6.3 has restarted taking metformin thus blood sugars have been better. Goal A1c is to remain below 7.0 (4) Thyroid cancer: Code(s): C73 - Malignant neoplasm of thyroid gland Plan: Needs Endocrinology follow-up, is status post total thyroidectomy. Continues on levothyroxine indefinitely. Most recent TSH elevated at 53. His levothyroxine has been increased to 200 mcg. (5) S/P total thyroidectomy: Code(s): E89.0 - Postprocedural hypothyroidism Plan: As per HPI patient is status post thyroidectomy due to thyroid cancer. Has not had any recent follow-up with endocrinology. Continues on levothyroxine indefinitely. Coding Level of Care Code Est Pt Level 4 (73052) Diagnoses Seizure disorder G40.909 Severe persistent allergic asthma J45.50 Type 2 diabetes mellitus with hyperglycemia, without long-term current use of insulin E11.65 Diabetes mellitus complication status: with hyperglycemia Diabetes mellitus usp insulin use: without long filler cigar roller machine use Thyroid cancer C73 S/P total thyroidectomy E89.0 Additional Codes MOOSE-7 Assessment Billing - MOOSE-7 Assessment Tool: MOOSE-7 Assessment [id number] ([id number])
[2023-12-11 11:30] VITALS: BP 110/76; PULSE 96; O2SAT 95; BMI 29.6
== END 2023-12-11 12:36 | disposition home or self-care (01) ==
PROVIDERS: PCP Physician Assistant; Visit Provider Physician Assistant
DX: G40.909 Epilepsy, unspecified, not intractable, without status epilepticus (principal); J45.50 Severe persistent asthma, uncomplicated; E11.65 Type 2 diabetes mellitus with hyperglycemia; C73 Malignant neoplasm of thyroid gland; E89.0 Postprocedural hypothyroidism
CPT/HCPCS: 99214

== ENCOUNTER 2024-01-08 06:18 | Outpatient (REF) | payer OTHER, SELFPAY ==
[2024-01-08 08:35] LABS: Free T4 (Free Thyroxine) 1.08 ng/dL (0.71-1.85); Thyroid Stimulating Hormone 1.51 uIU/mL (0.32-4.0)
== END 2024-01-08 06:19 | disposition home or self-care (01) ==
LOC: HO.LAB 06:18
PROVIDERS: Absent Provider Physician Assistant; PCP Physician Assistant; Visit Provider Internal Medicine Endocrinology, Diabetes & Metabolism
DX: C73 Malignant neoplasm of thyroid gland (principal)
CPT/HCPCS: 36415; 84439; 84443

== ENCOUNTER 2024-01-10 15:29 | Outpatient (AMB) | payer OTHER, SELFPAY ==
[2024-01-10 15:34] VITALS: BP 100/58; PULSE 103; BMI 29.9
--- NOTE | 2024-01-10 15:34 | A.OFFVIS_ITS ---
Vital Signs 01/10/24 15:34 Height 5 ft 5 in Weight 179 lb 10.828 oz BMI 29.9 BP 100/58 L Blood Pressure Location Lt brachial Position Sitting Pulse 103 H Pulse Source Pulse Oximeter Intake Visit Reasons: F/U HISTORY THYROID CANCER-conf Intake Note: Patient present today for history of thyroid cancer follow up visit. [employer] Required: No Accompanied by: Self / Same As Patient Allergies cat dander [CATS] Allergy (Mild, Verified 01/10/24 15:38) GENERALIZED ALLERGY SYMPTOMS dog dander [DOGS] Allergy (Mild, Verified 01/10/24 15:38) GENERALIZED ALLERGY SYMPTOMS tree and shrub pollen [TREE] Allergy (Mild, Verified 01/10/24 15:38) GENERALIZED ALLERGY SYMPTOMS FROM [place] Medication List - Last Reconciled 01/10/24 by Ramses Chi MD aspirin 81 mg PO DAILY 90 days atorvastatin 40 mg PO BEDTIME 90 days bisacodyl (Dulcolax (bisacodyl)) 10 mg (2 x 5 mg) PO BEDTIME Carafate (sucralfate) 10 mL PO BEDTIME NS carvedilol 3.125 mg PO BID 90 days cholecalciferol (vitamin D3) 50 mcg PO DAILY clobazam 10 mg PO DAILY colesevelam (WelChol) 1,250 mg (2 x 625 mg) PO BID dupilumab (Dupixent) 300 mg (2 mL) subcut Q2W 28 days gabapentin 300 mg PO BEDTIME PRN 30 days lisinopril 10 mg PO DAILY 90 days metformin ER 500 mg PO DAILY 90 days montelukast 10 mg PO BEDTIME 90 days nystatin 5 mL PO DAILY PRN 30 days omeprazole 40 mg PO DAILY@0630 oxcarbazepine 600 mg PO BID riboflavin (vitamin B2) 400 mg PO DAILY 30 days sertraline 100 mg PO DAILY 90 days [Sharps container As directed] simethicone (Gas Relief 80 (simethicone)) 80 mg PO BID-QID PRN Synthroid (levothyroxine) 200 mcg PO DAILY NS theophylline ER 200 mg (1/2 x 400 mg) PO DAILY tiotropium bromide 2.5 mcg/actuation (Spiriva Respimat) 2 puffs PO DAILY PRN Ventolin HFA 90 mcg/actuation (albuterol sulfate) 2 puffs PO Q6H PRN NS HPI Comments Details: 43 YO M with PMHx seizure disorder who is seen in F/U for thyroid cancer after his total thyroidectomy 11/21/2021 revealed multifocal PTC (classic type) [id number]. He is seen today in F/U. The patient last saw Dr. Calderon on 02/01/2023 Was initially diagnosed with multinodular thyroid in Oct 2020 with thyroid US revealing multiple bilateral thyroid nodules. He underwent FNA biopsy 06/16/2021 of his RMP 1.2 cm thyroid nodule with cytology revealing atypia of undetermined significance ([place] Category III). Affirma was suspicious, and an HRAS mutation was present, giving the risk of malignancy of 75%. He was referred to Dr. Carlos and the decision was made to proceed with a total thyroidectomy. He underwent a total thyroidectomy 11/21/2021. This revealed classic PTC, multifocal with 3 foci. R upper 1.1 cm, R mid 0.5 cm, L mid 0.6 cm. There was no angioinvasion, no lymphatic invasion, and no perineural invasion. Marings were negative. 0/3 lymph nodes examined positive for mets. This was classified as [id number], low risk for recurrence. Postoperatively he was started on levothyroxine, now on 175 mcg PO daily. He had opted for I131 ablation which was to be completed via thyrogen stimulation. He received his first dose of thyrogen, and that evening had chest pressure with LOC x 2. He presented to the ED at [facility] and was admitted for 3 days for cardiac rule out. He states that he had multiple seizures while hospitalized. He reports his cardiac workup was negative. Labs after his first dose of thyrogen 03/15/22 TSH 50.8, TG 0.6, TGAB <1. He does report some difficulty swallowing, but otherwise has no complaints. Swallowing study did reveal some delayed UES relaxation. US Head and Neck: 11/22/2022 FINDINGS: ? RIGHT NECK: 1. Level 2 lymph node measures 2.1 x 0.7 x 1.8 cm. It has a normal architecture. 2. Level 2 lymph node measures 0.9 x 0.4 x 0.4 cm and has normal architecture. Previously it measured 0.6 x 0.2 x 0.3 cm. 3. Level 2 lymph node measures 0.7 x 0.3 x 0.4 cm. It is new and has normal architecture. 4. Level 4 lymph node measures 0.6 x 0.3 x 0.6 cm and has normal architecture. Previously measured 0.6 x 0.2 x 0.3 cm. LEFT NECK: 1. Level 2 lymph node measures 1.7 x 0.7 x 2.1 cm. It has normal architecture. Previously it measured 1.8 x 0.6 x 0.8 cm. 2. Level 4 lymph node measures 1.1 x 0.5 x 0.6 cm. It has normal architecture. Previously it measured 0.7 x 0.5 x 0.5 cm US/US soft tiss head and/or neck IMPRESSION: Benign-appearing bilateral neck lymph nodes as described above. Labs: Laboratory Tests 11/27/22 11/27/22 11/27/22 07:32 07:32 07:32 Sodium 142 Potassium 4.9 Creatinine 0.81 Estimated GFR > 60 25-OH Vitamin D Total 17.9 TSH 0.05 L Free T4 1.31 PTH Intact 35 Calcium (PTH Intact) 10.1 Thyroglobulin Antibody <1 Stimulated thyroglobulin was slightly elevated but patient did not receive radioactive iodine past [facility] Medical History Uvulitis Claustrophobia Takotsubo cardiomyopathy Schatzki's ring Gastritis Sleep apnea Diabetes Gastroparesis Migraine headache with aura Enlarged liver Postoperative hypothyroidism Thyroid cancer Vitamin D deficiency Multinodular thyroid Seizures ABPA (allergic bronchopulmonary aspergillosis) Myocardial infarct Seizures Asthma Surgical History S/P total thyroidectomy History of esophagogastroduodenoscopy (EGD) S/P removal of thyroid nodule History of cholecystectomy Family History Maternal Grandmother Emphysema, unspecified Father Diabetes Mother No problems noted. Paternal Grandfather Liver cancer Colon cancer Social History Household Members: Family Housing: Apartment Are you a primary pet caretaker to a significant other at home: No Do you presently have visiting nurse or other home services: No Alcohol intake: former Comment: has poor balance Patient Tobacco Use Status: Never used Tobacco e-Cigarette/Vaping Use: Never Used Second Hand Smoke Exposure: No Substance Use Type: Marijuana Advance Directives Date on File: 05/20/23 service: No Current occupational status: disabled Current occupation: rt handed Cognitive needs: No Hearing needs: No Vision needs: No Physical Exam Const Other: Healed scar status post thyroidectomy. There is no cervical adenopathy palpated Assessment & Plan Assessment & Plan (1) Thyroid cancer: Code(s): C73 - Malignant neoplasm of thyroid gland Category: Medical Plan: This is a 42-year-old white male with a history of a total thyroidectomy 11/21/2021. This revealed classic PTC, multifocal with 3 foci. R upper 1.1 cm, R mid 0.5 cm, L mid 0.6 cm. There was no angioinvasion, no lymphatic invasion, and no perineural invasion. Marings were negative. 0/3 lymph nodes examined positive for mets. This was classified as [id number], low risk for recurrence. He is currently on Synthroid 200 mcg appears to be clinically and biochemically euthyroid . Patient never received the dose of radioactive iodine but does have a stimulated thyroglobulin of 4.6 which could be appropriate in the absence of radioactive iodine. Question becomes with the patient still has structural persistence of disease although neck ultrasounds have been negative. Other question is whether radioactive iodine should be administered at this point Plan is to continue the current dose of Synthroid. We will talk to patient about options of obtaining a repeat neck ultrasound or sending to Dr. David a thyroid cancer specialist at [facility] to determine whether radioactive iodine should be given perhaps based on a repeat neck ultrasound Orders: Referrals Endocrinology Referral C73 - Malignant neoplasm of thyroid gland Coding Level of Care Code Est Pt Level 3 (82233) Diagnoses Thyroid cancer C73
== END 2024-01-10 15:52 | disposition home or self-care (01) ==
PROVIDERS: PCP Physician Assistant; Visit Provider Internal Medicine Endocrinology, Diabetes & Metabolism
DX: C73 Malignant neoplasm of thyroid gland (principal)
CPT/HCPCS: 99213

== ENCOUNTER → 2024-01-10 15:29 | Outpatient (BNVA) | payer OTHER, SELFPAY | PROVIDERS: PCP Physician Assistant; Visit Provider Internal Medicine Endocrinology, Diabetes & Metabolism | DX: E89.0 Postprocedural hypothyroidism (principal); Z85.850 Personal history of malignant neoplasm of thyroid; Z79.899 Other long term (current) drug therapy | CPT/HCPCS: 99212 ==

== ENCOUNTER 2024-01-15 09:02 | Outpatient (AMB) | payer OTHER, SELFPAY ==
--- NOTE | 2024-01-15 09:10 | A.OFFVIS_ITS ---
Vital Signs 01/15/24 09:11 Height 5 ft 5 in Weight 177 lb 7.554 oz BMI 29.5 BP 108/58 L Blood Pressure Location Lt brachial Position Sitting Pulse 92 Pulse Source Doppler Pulse Oximetry (%) 96 Oxygen Delivery Method Room Air Intake Visit Reasons: Asthma Allergies cat dander [CATS] Allergy (Mild, Verified 01/10/24 15:38) GENERALIZED ALLERGY SYMPTOMS dog dander [DOGS] Allergy (Mild, Verified 01/10/24 15:38) GENERALIZED ALLERGY SYMPTOMS tree and shrub pollen [TREE] Allergy (Mild, Verified 01/10/24 15:38) GENERALIZED ALLERGY SYMPTOMS FROM [place] HPI HPI Asthma: Details: 43-year-old gentleman, lifetime nonsmoker, followed for underlying severe persistent asthma, environmental allergies, and MEHNAZ on CPAP. He was started on Dupixent and continue to use Spiriva, Symbicort, Singulair, and albuterol MDI/nebs with reasonable? baseline control of his symptoms. Today he complains of a bronchitic exacerbation symptomatic with productive cough, but no wheezing. [facility] Medical History Uvulitis Claustrophobia Takotsubo cardiomyopathy Schatzki's ring Gastritis Sleep apnea Diabetes Gastroparesis Migraine headache with aura Enlarged liver Postoperative hypothyroidism Thyroid cancer Vitamin D deficiency Multinodular thyroid Seizures ABPA (allergic bronchopulmonary aspergillosis) Myocardial infarct Seizures Asthma Surgical History S/P total thyroidectomy History of esophagogastroduodenoscopy (EGD) S/P removal of thyroid nodule History of cholecystectomy Family History Maternal Grandmother Emphysema, unspecified Father Diabetes Mother No problems noted. Paternal Grandfather Liver cancer Colon cancer Social History Household Members: Family Housing: Apartment Are you a primary morning caregiver to a significant other at home: No Do you presently have visiting nurse or other home services: No Alcohol intake: former Comment: has poor balance Patient Tobacco Use Status: Never used Tobacco e-Cigarette/Vaping Use: Never Used Second Hand Smoke Exposure: No Substance Use Type: Marijuana Advance Directives Date on File: 05/20/23 service: No Current occupational status: disabled Current occupation: rt handed Cognitive needs: No Hearing needs: No Vision needs: No Review of Systems Const Denies daytime sleepiness, Denies excessive sweating, Denies fatigue, Denies fever(s), Denies lethargy, Denies malaise, Denies night sweats, Denies snoring and Denies weight loss Eyes Denies blurry vision and Denies itchy eyes ENT Denies nasal congestion, Denies post nasal drip, Denies sinus pain, Denies sinus pressure and Denies other ( Thrush) Card Denies chest pain, Denies pedal edema, Denies dyspnea, Denies orthopnea and Denies paroxysmal nocturnal dyspnea Resp Reports cough, Denies hemoptysis, Reports excessive phlegm production, Denies dyspnea, Denies snoring and Denies wheezing GI Denies abdominal pain and Denies heartburn Musc Denies myalgias, Denies arthralgias and Denies joint swelling Skin/Breast Denies rash Neuro Denies memory loss and Denies seizure-like activity Psych Denies abnormal sleep pattern, Denies anxiety and Denies memory loss Endo Denies excessive sweating, Denies fatigue and Denies heat intolerance Nico/Lymph Denies easy bruising Aller/Immun Denies itchy eyes, Denies seasonal rhinorrhea and Denies wheezing Physical Exam Vital Signs: Last Vital Signs Pulse 92 01/15/24 09:11 BP 108/58 L 01/15/24 09:11 Pulse Ox 96 01/15/24 09:11 Oxygen Delivery Method Room Air 01/15/24 09:11 BMI result Body Mass Index 29.5 Const General: no acute distress and alert Nutritional Appearance: not obese Orientation/consciousness: Other orientation findings ( oriented) HEENT Head: Yes atraumatic Eyes General: appearance normal, both eyes and all related structures Sclerae: sclerae normal EOM: EOMs intact bilaterally Neck Neck: Yes supple Lymphatic: no lymphadenopathy noted Resp Effort & Inspection: normal respiratory effort and no use of accessory muscles Auscultation: clear to auscultation bilaterally Cardio Rate: regular rate Rhythm: regular rhythm Heart sounds: no gallops, no murmurs and no rubs Skin General skin exam: other ( warm) Extrem General: No clubbing, No cyanosis and No edema Assessment & Plan Assessment & Plan (1) Severe persistent allergic asthma: Code(s): Bobbi45.50 - Severe persistent asthma, uncomplicated Category: Medical Plan: Well controlled on Dupixent, Spiriva, Symbicort, sulfa, and albuterol MDI. Continue current regimen. (2) Environmental allergies: Code(s): Z91.09 - Other allergy status, other than to drugs and biological substances Category: Medical Plan: Well controlled on Dupixent. Continue current regimen. (3) MEHNAZ on CPAP: Code(s): G47.33 - Obstructive sleep apnea (adult) (pediatric); Z99.89 - Dependence on other enabling machines and devices Category: Medical Plan: Well controlled on current CPAP therapy. Continue CPAP therapy. Medications: New doxycycline monohydrate 100 mg PO BID 14 caps 0RF Coding Level of Care Code Est Pt Level 4 (64498) Diagnoses Severe persistent allergic asthma J45.50 Environmental allergies Z91.09 MEHNAZ on CPAP G47.33; Z99.89
[2024-01-15 09:11] VITALS: BP 108/58; PULSE 92; O2SAT 96; BMI 29.5
== END 2024-01-15 09:20 | disposition home or self-care (01) ==
PROVIDERS: PCP Physician Assistant; Visit Provider Internal Medicine Pulmonary Disease
DX: J45.50 Severe persistent asthma, uncomplicated (principal); Z91.09 Other allergy status, other than to drugs and biological substances; G47.33 Obstructive sleep apnea (adult) (pediatric); Z99.89 Dependence on other enabling machines and devices
CPT/HCPCS: 99214

== ENCOUNTER → 2024-01-15 09:02 | Outpatient (BNVA) | payer OTHER, SELFPAY | PROVIDERS: PCP Physician Assistant; Visit Provider Internal Medicine Pulmonary Disease | DX: J45.50 Severe persistent asthma, uncomplicated (principal); G47.33 Obstructive sleep apnea (adult) (pediatric); Z91.09 Other allergy status, other than to drugs and biological substances; Z99.89 Dependence on other enabling machines and devices | CPT/HCPCS: 99212 ==

== ENCOUNTER 2024-03-12 08:10 | Outpatient (AMB) | payer OTHER, SELFPAY ==
--- NOTE | 2024-03-12 08:25 | A.OFFPC_ITS ---
Vital Signs 03/12/24 08:27 Height 5 ft 5 in Weight 170 lb BMI 28.3 BP 120/80 Blood Pressure Location Lt brachial Position Sitting Pulse 95 Pulse Source Pulse Oximeter Pulse Oximetry (%) 98 Oxygen Delivery Method Room Air Intake Visit Reasons: f/u DMII/ sz disorder Intake Note: Patient here for a follow up DM, Seizure disorder Marketing Analytics Manager Required: No Accompanied by: Self / Same As Patient Allergies cat dander [CATS] Allergy (Mild, Verified 03/12/24 08:35) GENERALIZED ALLERGY SYMPTOMS dog dander [DOGS] Allergy (Mild, Verified 03/12/24 08:35) GENERALIZED ALLERGY SYMPTOMS tree and shrub pollen [TREE] Allergy (Mild, Verified 03/12/24 08:35) GENERALIZED ALLERGY SYMPTOMS FROM [place] Medication List - Last Reconciled 03/12/24 by Saúl Maier PA-C aspirin 81 mg PO DAILY 90 days atorvastatin 40 mg PO BEDTIME 90 days bisacodyl (Dulcolax (bisacodyl)) 10 mg (2 x 5 mg) PO BEDTIME Carafate (sucralfate) 10 mL PO BEDTIME NS carvedilol 3.125 mg PO BID 90 days cholecalciferol (vitamin D3) 50 mcg PO DAILY clobazam 10 mg PO DAILY colesevelam (WelChol) 1,250 mg (2 x 625 mg) PO BID dupilumab (Dupixent) 300 mg (2 mL) subcut Q2W 28 days gabapentin 300 mg PO BEDTIME PRN 30 days lisinopril 10 mg PO DAILY 90 days metformin ER 500 mg PO DAILY 90 days montelukast 10 mg PO BEDTIME 90 days nystatin 5 mL PO DAILY PRN 30 days omeprazole 40 mg PO DAILY@0630 oxcarbazepine 600 mg PO BID riboflavin (vitamin B2) 400 mg PO DAILY 30 days sertraline 100 mg PO DAILY 90 days [Sharps container As directed] simethicone (Gas Relief 80 (simethicone)) 80 mg PO BID-QID PRN Synthroid (levothyroxine) 200 mcg PO DAILY NS theophylline ER 200 mg (1/2 x 400 mg) PO DAILY tiotropium bromide 2.5 mcg/actuation (Spiriva Respimat) 2 puffs PO DAILY PRN Ventolin HFA 90 mcg/actuation (albuterol sulfate) 2 puffs PO Q6H PRN NS Tobacco use date assessed: 12/11/23 Dental Screening Dental Screen Date: 12/11/23 HPI f/u DMII/ sz disorder HPI Details Terrance is 43y ear-old male here today for a follow up visit. ?Patient? has a past medical history significant for seizure disorder, moderate persistent? asthma, depression and anxiety, thyroid cancer status post thyroidectomy. Seizure disorder: Has followed up with [facility] and did a video EEG which he reports did see epileptic activity. His seizure medication was changed to oxy carbamazepine and clobazam. He denies any breakthrough seizures. Unfortunately has been experiencing intolerable side effects of sweating, lethargy and slow speech. Will be following up with Neurology in the next few weeks. CHRONIC MEDICAL CONDITIONS .. Type 2 diabetes: Most recent A1c is 6.6.. Has not been taking metformin over last few months as he has not received from pharmacy. Will restart metformin 500 extended release.. He does admit to dietary indiscretion as a side effect his seizure medications. History of?thyroid cancer: He is status post total thyroidectomy. Continues on levothyroxine indefinitely. Most recent TSH has been stable. Continues on dose levothyroxine at 200 mcg. Followed up with endocrinology whom recommend a repeat ultrasound. There is question with the need for iodine radiation t reatment ?.. ? Anxiety: Patient he is? seeing therapist (Junito) at [facility] here at [facility]. Patient continues? on Zoloft .. History of cardiomyopathy:? Patient has a history of dilated cardiomyopathy.? Was followed by levi maker.? Has been on moderate dose statin and most recent lipid panel showing elevated total cholesterol and LDL. Of note aspirin has been held due to his history of upper GI bleed due to Ramirez's esophagus?.. ?Moderate persistent asthma:? Followed by Pulmonology. REcent PFT - showing modererate asthma vs COPD. He does continue on Dupixent which has really helped control his asthma symptoms. He reports as of late his wheezing has been more evident and he attributes this to the changes in weather. Laboratory Tests 05/10/22 06/14/23 08/02/23 09:38 10:41 00:21 RBC 5.16 D Hgb 14.9 D Random Glucose 115 Hgb A1c (Clinic) 6.3 H 6.4 H Hemoglobin A1c % Triglycerides Cholesterol 25-OH Vitamin D To patricia TSH Thyroglobulin 09/12/23 10/01/23 01/08/24 11:55 06:37 06:29 RBC Hgb Random Glucose Hgb A1c (Clinic) 7.1 H Hemoglobin A1c % 6.3 H Triglycerides 472 H Cholesterol 349 H 25-OH Vitamin D To patricia 30.0 L TSH 55.33 H 1.51 Thyroglobulin 4.6 H PFSH Medical History Uvulitis Claustrophobia Takotsubo cardiomyopathy Schatzki's ring Gastritis Sleep apnea Diabetes Gastroparesis Migraine headache with aura Enlarged liver Postoperative hypothyroidism Thyroid cancer Vitamin D deficiency Multinodular thyroid Seizures ABPA (allergic bronchopulmonary aspergillosis) Myocardial infarct Seizures Asthma Surgical History S/P total thyroidectomy History of esophagogastroduodenoscopy (EGD) S/P removal of thyroid nodule History of cholecystectomy Family History Maternal Grandmother Emphysema, unspecified Father Diabetes Mother No problems noted. Paternal Grandfather Liver cancer Colon cancer Social History Household Members: Family Housing: Apartment Are you a primary critical care transport nurse to a significant other at home: No Do you presently have visiting nurse or other home services: No Alcohol intake: former Comment: has poor balance Patient Tobacco Use Status: Never used Tobacco e-Cigarette/Vaping Use: Never Used Second Hand Smoke Exposure: No Substance Use Type: Marijuana Advance Directives Date on File: 05/20/23 service: No Current occupational status: disabled Current occupation: rt handed Cognitive needs: No Hearing needs: No Vision needs: No Questionnaire Thrive Questionnaire Date Thrive assessed: 12/11/23 MOOSE-7 AMB Questionnaire MOOSE-7 Date MOOSE - 7 assessed: 12/11/23 Source: Developed by Drs. Ramses Nguyen, Debi Russ, Colin Rowell and colleagues, with an educational javy from [employer]. Review of Systems Const Denies headache(s) Eyes Denies loss of vision ENT Denies vertigo, Denies dizziness, Denies headache(s) and Denies sore throat Card Denies chest pain, Denies leg edema and Denies lightheadedness Resp Denies cough, Denies hemoptysis and Denies wheezing GI Denies abdominal pain, Denies melena, Denies constipation, Denies diarrhea and Denies vomiting Denies dysuria, Denies urinary frequency and Denies urinary urgency Musc Denies arthralgias, Denies joint swelling, Denies numbness and Denies tingling Neuro Denies Abnormal speech present, Denies behavioral changes, Denies vertigo, Denies dizziness, Denies headache(s), Denies loss of vision, Denies memory loss, Denies numbness and Denies tingling Psych Denies anxiety, Denies behavioral changes, Denies depression, Denies memory loss and Denies panic attacks Nico/Lymph Denies easy bleeding and Denies easy bruising Aller/Immun Denies wheezing Physical exam (Primary Care) Vital Signs: Last Vital Signs Pulse 95 03/12/24 08:27 BP 120/80 03/12/24 08:27 Pulse Ox 98 03/12/24 08:27 Oxygen Delivery Method Room Air 03/12/24 08:27 BMI result Body Mass Index 28.3 Tobacco/Smoking Status: Tobacco use Status Tobacco use date assessed 12/11/23 03/12/24 08:26 Patient Tobacco Use Status Never used Tobacco 03/12/24 08:26 Tobacco use type 09/12/23 12:16 e-Cigarette/Vaping Use Never Used 03/12/24 08:26 Thrive Assessment: Date of Thrive Assessment Date Thrive assessed 12/11/23 03/12/24 08:26 Const General: healthy appearing, no acute distress, alert and awake Nutritional Appearance: well nourished Orientation/consciousness: oriented to person, oriented to place and oriented to time HENMT Ears: TM's normal bilaterally General nose exam: Normal nasal mucous membranes and turbinates present Eyes Conjunctivae: conjunctivae normal Sclerae: sclerae normal Pupils: Equal, round and reactive pupils present Neck Neck: Yes no lymphadenopathy and Yes no JVD Thyroid: Thyroid normal Carotids: no bruits Resp Effort & Inspection: normal respiratory effort and not tachypneic Auscultation: no crackles, no rales, no rhonchi and no wheezes Cardio Rate: regular rate Rhythm: regular rhythm Heart sounds: no murmurs and normal S1 and S2 GI Palpation (GI): Soft to palpation, nontender, no hepatomegaly and no splenomegaly Auscultation: normal bowel sounds Skin General skin exam: no rashes or lesions noted and dry skin Neuro General: oriented to person, oriented to place and oriented to time Cranial nerves: Yes Equal, round and reactive pupils present Speech: No Abnormal speech present Gait exam (Neuro): Normal gait present Motor exam (neuro): no tremor noted Extrem Right upper extremity: full ROM Left upper extremity: full ROM Right lower extremity: full ROM; no edema Left lower extremity: full ROM; no edema Psych Mental Status: mental status grossly normal Speech and movement: Normal speech and movement present Affect: normal affect Attitude: cooperative Thought process: Normal thought process present Results AMB Hemoglobin A1c AMB Hemoglobin A1c 6.6 % Last Edit by RAFA Liu on 03/12/24 08:3 7 Assessment and Plan Assessment & Plan (1) Seizure disorder: Code(s): G40.909 - Epilepsy, unspecified, not intractable, without status epilepticus Plan: Was on Oxycarbaspine and clobazam. Reports side effects of sweating. New medication seem to have been working, he can not recall any breakthrough seizures recently Did see a seizure specialist at [facility] and did a video EEG which did show epileptic activity and his seizure medications were change. Unfortunately having side effect to his new seizure medications that are pretty much intolerable to patient. Also reports some breakthrough seizure activity even on new seizure medication. . (2) Severe persistent allergic asthma: Code(s): J45.50 - Severe persistent asthma, uncomplicated Plan: Patient reports his asthma is been fairly well controlled with current maintenance inhalers , Dupixent and Singulair. He is followed by pulmonology. He reports he rarely has to use his nebulizer anymore. 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 Will restart metformin 500 extended release. Goal A1c is to remain below 7.0 (4) Thyroid cancer: Code(s): C73 - Malignant neoplasm of thyroid gland Plan: Needs Endocrinology follow-up, is status post total thyroidectomy. Continues on levothyroxine indefinitely. Most recent TSH stabilize. Continues on levothyroxine 200 mcg. Has been referred to [facility] as he still seems to have thyroid issue. There were some discussion about repeat thyroid ultrasound and need for iodine radiation treatment. A STILL AWAITING A CALL FROM [facility]. (5) S/P total thyroidectomy: Code(s): E89.0 - Postprocedural hypothyroidism Plan: As per HPI patient is status post thyroidectomy due to thyroid cancer. Has not had any recent follow-up with endocrinology. Continues on levothyroxine indefinitely. (6) Cardiomyopathy: Code(s): I42.9 - Cardiomyopathy, unspecified Qualifiers: Cardiomyopathy type: stress-induced Qualified Code(s): I51.81 - Takotsubo syndrome Plan: PATIENT CONTINUES ON MODERATE POTENCY STATIN CARVEDILOL 3.1 MG B.I.D.. HAS NOT HAD ANY OVERT SIGNS OF CONGESTIVE HEART FAILURE. ASPIRIN HAS BEEN HELD DUE TO HIS EROSIVE ESOPHAGITIS AND HISTORY OF GI BLEED. Orders: Orders AMB Hemoglobin A1c Today E11.65 - Type 2 diabetes mellitus with hyperglycemia Microalbumin, Random (w Creat) Today E11.65 - Type 2 diabetes mellitus with hyperglycemia Comprehensive [place]. Panel Fast Today E11.65 - Type 2 diabetes mellitus with hyperglycemia TSH reflex Free T4 Today E89.0 - Postprocedural hypothyroidism Vitamin D 25-OH Total Today E55.9 - Vitamin D deficiency, unspecified Complete Blood Count no Diff Today K22.70 - Ramirez's esophagus without dysplasia Medications: Refilled cholecalciferol (vitamin D3) 50 mcg PO DAILY 90 caps 2RF E55.9 - Vitamin D deficiency, unspecified nystatin administer 1/2 of dose in each side of the mouth 5 mL PO DAILY 30 days PRN 200 mL 6RF thrush metformin ER 500 mg PO DAILY 90 days 90 tabs 2RF R73.09 - Other abnormal glucose lisinopril 10 mg PO DAILY 90 days 90 tabs 3RF I51.81 - Takotsubo syndrome montelukast 10 mg PO BEDTIME 90 days 90 tabs 2RF J45.50 - Severe persistent asthma, uncomplicated atorvastatin 40 mg PO BEDTIME 90 days 90 tabs 3RF I42.9 - Cardiomyopathy, unspecified carvedilol 3.125 mg PO BID 90 days 180 tabs 2RF I42.9 - Cardiomyopathy, unspecified Patient Instructions: Goal: A1c to remain below 6.5 Barriers: Adherence to physical activity and healthy eating habits. 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
[2024-03-12 08:27] VITALS: BP 120/80; PULSE 95; O2SAT 98; BMI 28.3
== END 2024-03-12 09:03 | disposition home or self-care (01) ==
PROVIDERS: PCP Physician Assistant; Visit Provider Physician Assistant
DX: G40.909 Epilepsy, unspecified, not intractable, without status epilepticus (principal); J45.50 Severe persistent asthma, uncomplicated; E11.65 Type 2 diabetes mellitus with hyperglycemia; C73 Malignant neoplasm of thyroid gland; E89.0 Postprocedural hypothyroidism; I51.81 Takotsubo syndrome
CPT/HCPCS: 83036; 99214; G2211

== ENCOUNTER 2024-03-18 08:05 | Outpatient (AMB) | payer OTHER, SELFPAY ==
--- NOTE | 2024-03-18 08:10 | MHC.OFFVIS ---
Vital Signs 03/18/24 08:16 Height 5 ft 5 in Weight 170 lb 3.15 oz BMI 28.3 BP 140/74 H Blood Pressure Location Rt brachial Position Sitting Pulse 92 Pulse Source Pulse Oximeter Pulse Oximetry (%) 96 Oxygen Delivery Method Room Air Intake Visit Reasons: 6 months follow up Intake Note: Terrance presents in office today for a scheduled 6 mos FUV. CC; Terrance was rx'd omeprazole, and colesevelam at their last visit. Pt confirmed this information. Pt does report having intermittent constipation as well as the moderate, intermittent abdominal pain which seems to be associated with intake. Pt reports the pain as someone taking my intestines and squeezing them . Pt states that otherwise, the medications seem to be working OK; they have noticed less sx as of the last few months since starting the medications. Caddy Required: No Allergies cat dander [CATS] Allergy (Mild, Verified 03/18/24 08:11) GENERALIZED ALLERGY SYMPTOMS dog dander [DOGS] Allergy (Mild, Verified 03/18/24 08:11) GENERALIZED ALLERGY SYMPTOMS tree and shrub pollen [TREE] Allergy (Mild, Verified 03/18/24 08:11) GENERALIZED ALLERGY SYMPTOMS FROM [place] HPI HPI 6 months follow up: Details: LAST VISIT Gastritis Barretts esophagus GERD (gastroesophageal reflux disease) Constipation Abdominal bloating Dysphagia Gastroparesis Schatzki's ring Plan Continue taking Welchol as prescribed. Avoid dietary triggers and late night snacking. Staying upright for minimum 3 hours after meals discussed with patient. Patient can continue taking omeprazole in the morning and we will change sucralfate to bedtime. Patient reports that he is feeling significantly better. Patient was encouraged to try to control his sugar better with diet mostly and continue his medications as prescribed by his PCP. I will see patient in 6 months, sooner on as needed basis. Patient is agreeable to this plan and verbalizes understanding of instructions. He was given the opportunity to ask questions all questions answered. ? Thank you for allowing me to participate in his care Medications Changed Changed From sucralfate Please take it at noon time and at bedtime 10 mL PO BID 400 mL 3RF K21.9 Changed To sucralfate Please take it at bedtime 10 mL PO BEDTIME 400 mL 3RF K21.9 Refilled omeprazole 40 mg PO DAILY@0630 90 caps 2RF colesevelam (WelChol) 1,250 mg (2 x 625 mg) PO BID 120 tabs 2RF Discontinued linaclotide (Linzess) Discontinued Reason: Doctor's Order 290 mcg PO QAM 30 caps 4RF K59.00 TODAY'S VISIT Patient is here today for follow-up. Patient reports that since last time I have seen him he has been doing better. Occasional falls back when he still has abdominal pain in the morning. Patient reports that his pain feels like his intestines are twisting. Patient takes his medications with breakfast all together with seizure medications 1st. Patient reports that he is avoiding anything spicy or fried. Still has trouble moving his bowels. Sometimes no BM for 2-3 days. Pain worse in his abdomen when he has not had a bowel movement for couple days. Patient denies any melena, hematochezia. Patient reports occasional dyspepsia without dysphagia or odynophagia. Takes Welchol after meals twice a day and reports that feels like it does help. Patient denies any nausea or vomiting. Patient denies any dysphagia or odynophagia. Recently was admitted for few [facility] at [facility] for testing due to his seizures. Sees endocrinology for managing his Synthroid and pulmonology for his asthma. Overall patient reports that he has been feeling better. Patient denies any unintentional weight loss. [facility] Medical History Uvulitis Claustrophobia Takotsubo cardiomyopathy Schatzki's ring Gastritis Sleep apnea Diabetes Gastroparesis Migraine headache with aura Enlarged liver Postoperative hypothyroidism Thyroid cancer Vitamin D deficiency Multinodular thyroid Seizures ABPA (allergic bronchopulmonary aspergillosis) Myocardial infarct Seizures Asthma Surgical History S/P total thyroidectomy History of esophagogastroduodenoscopy (EGD) S/P removal of thyroid nodule History of cholecystectomy Family History Maternal Grandmother Emphysema, unspecified Father Diabetes Mother No problems noted. Paternal Grandfather Liver cancer Colon cancer Social History Household Members: Family Housing: Apartment Are you a primary healthcare network consultant to a significant other at home: No Do you presently have visiting nurse or other home services: No Alcohol intake: former Comment: has poor balance Patient Tobacco Use Status: Never used Tobacco e-Cigarette/Vaping Use: Never Used Second Hand Smoke Exposure: No Substance Use Type: Marijuana Advance Directives Date on File: 05/20/23 service: No Current occupational status: disabled Current occupation: rt handed Cognitive needs: No Hearing needs: No Vision needs: No Review of Systems Const Denies weight gain and Denies weight loss ENT Reports no additional complaints, Denies dysphagia and Denies odynophagia Card Reports no additional complaints Resp Reports no additional complaints GI Reports abdominal pain, Denies belching, Denies melena, Reports bloating, Reports constipation, Denies dysphagia, Denies excessive flatus, Denies dyspepsia, Denies heartburn, Denies diarrhea, Denies loose stools, Denies nausea, Denies odynophagia and Denies vomiting Reports no additional complaints Musc Reports no additional complaints Neuro Reports no additional complaints Psych Reports no additional complaints Endo Reports no additional complaints Physical Exam Vital Signs: Last Vital Signs Pulse 92 03/18/24 08:16 BP 140/74 H 03/18/24 08:16 Pulse Ox 96 03/18/24 08:16 Oxygen Delivery Method Room Air 03/18/24 08:16 BMI result Body Mass Index 28.3 Const General: healthy appearing, no acute distress and well developed Nutritional Appearance: well nourished Orientation/consciousness: patient oriented x3 Resp Effort & Inspection: normal respiratory effort, able to speak in complete sentences, no tracheal deviation and symmetric chest movement Auscultation: clear to auscultation bilaterally Cardio Rate: regular rate GI Inspection: Yes normal to inspection and No distended Palpation (GI): Soft to palpation, not firm, nontender and No hepatosplenomegaly present Auscultation: normal bowel sounds General: Yes no CVA tenderness Back/Spine/Pelvis Back: no CVA tenderness Skin General skin exam: elasticity normal, turgor normal and dry skin Neuro General: patient oriented x3 Psych Appearance: grossly normal Mental Status: mental status grossly normal Assessment & Plan Assessment & Plan (1) Barretts esophagus: Code(s): K22.70 - Ramirez's esophagus without dysplasia Category: Medical Qualifiers: Ramirez's esophagus type: without dysplasia Qualified Code(s): K22.70 - Ramirez's esophagus without dysplasia (2) GERD (gastroesophageal reflux disease): Code(s): K21.9 - Gastro-esophageal reflux disease without esophagitis Category: Medical Qualifiers: Esophagitis presence: esophagitis presence not specified Qualified Code(s): K21.9 - Gastro-esophageal reflux disease without esophagitis (3) Constipation: Code(s): K59.00 - Constipation, unspecified Category: Medical Qualifiers: Constipation type: slow transit constipation Qualified Code(s): K59.01 - Slow transit constipation (4) Abdominal bloating: Code(s): R14.0 - Abdominal distension (gaseous) Category: Medical (5) Dysphagia: Code(s): R13.10 - Dysphagia, unspecified Category: Medical Qualifiers: Dysphagia type: pharyngoesophageal phase Qualified Code(s): R13.14 - Dysphagia, pharyngoesophageal phase (6) Gastroparesis: Code(s): K31.84 - Gastroparesis Category: Medical (7) Schatzki's ring: Code(s): K22.2 - Esophageal obstruction Plan Patient will start taking omeprazole before breakfast and not after breakfast. Avoid dietary triggers and late night snacking. Will increase to twice a day half an hour before dinner. Continue taking Dulcolax daily. Increase fluid intake and activity to promote better bowel motility. Continue Welchol. Patient will return in 3 months, sooner on as needed basis. He is agreeable to this plan and verbalizes understanding of instructions. He was given the opportunity to ask questions and all questions answered. Thank you for allowing me to participate in his care Medications: Changed From omeprazole 40 mg PO DAILY@0630 90 caps 2RF To omeprazole 40 mg PO BID 180 caps 2RF Coding Level of Care Code Est Pt Level 3 (75958) Diagnoses Ramirez's esophagus without dysplasia K22.70 Ramirez's esophagus type: without dysplasia Gastroesophageal reflux disease, unspecified whether esophagitis present K21.9 Esophagitis presence: esophagitis presence not specified Slow transit constipation K59.01 Constipation type: slow transit constipation Abdominal bloating R14.0 Pharyngoesophageal dysphagia R13.14 Dysphagia type: pharyngoesophageal phase Gastroparesis K31.84 Schatzki's ring K22.2 Time Spent (min) 30 Comment 20 minutes spent with patient and additional 10 minutes spent reviewing his records
[2024-03-18 08:16] VITALS: BP 140/74; PULSE 92; O2SAT 96; BMI 28.3
== END 2024-03-18 08:32 | disposition home or self-care (01) ==
PROVIDERS: PCP Physician Assistant; Visit Provider Nurse Practitioner Family
DX: K22.70 Barrett's esophagus without dysplasia (principal); K21.9 Gastro-esophageal reflux disease without esophagitis; K59.01 Slow transit constipation; R14.0 Abdominal distension (gaseous); R13.14 Dysphagia, pharyngoesophageal phase; K31.84 Gastroparesis; K22.2 Esophageal obstruction
CPT/HCPCS: 99213

== ENCOUNTER → 2024-03-18 08:05 | Outpatient (BNVA) | payer OTHER, SELFPAY | PROVIDERS: PCP Physician Assistant; Visit Provider Nurse Practitioner Family | DX: K22.70 Barrett's esophagus without dysplasia (principal); K22.2 Esophageal obstruction; K21.9 Gastro-esophageal reflux disease without esophagitis; K59.01 Slow transit constipation; R14.0 Abdominal distension (gaseous); R13.14 Dysphagia, pharyngoesophageal phase; K31.84 Gastroparesis; Z90.49 Acquired absence of other specified parts of digestive tract | CPT/HCPCS: 99212 ==

== ENCOUNTER 2024-04-14 06:39 | Outpatient (REF) | payer OTHER, SELFPAY ==
[2024-04-14 07:30] LABS: Hematocrit 42.1 % (42.0-52.0); Hemoglobin 14.6 g/dl (14.0-18.0); Mean Corpuscular HGB Conc 34.7 g/dl (31.0-36.0); Mean Corpuscular Hemoglobin 28.9 pg (27.0-33.0); Mean Corpuscular Volume 83.4 fL (80.0-98.0); Platelet Count 282 X10*3/uL (160-400); Red Blood Count 5.05 X10*6/uL (4.60-5.80); White Blood Count 8.3 X10*3/uL (4.8-10.8)
[2024-04-14 08:03] LABS: Alanine Aminotransferase 29 U/L (0-40); Albumin Level 4.4 g/dL (3.5-5.0); Alkaline Phosphatase 64 U/L (39-117); Anion Gap 14 (12-20); Aspartate Amino Transferase 16 U/L (5-37); Bilirubin Total 0.2 mg/dL (0.0-1.0); Blood Urea Nitrogen 8 mg/dL (9-16); Calcium 10.6 mg/dL (8.4-10.2); Carbon Dioxide 22 mmol/L (22-29); Chloride 101 mmol/L (96-108); Estimated Glomerular Filt Rate > 60; Glucose Fasting 116 mg/dL (60-99); Potassium 4.6 mmol/L (3.3-5.1); Sodium 132 mmol/L (135-145)
[2024-04-14 08:20] LABS: TSH reflex Free T4 0.11 uIU/mL (0.32-4.0); Vitamin D 25-OH Total 14.4 ng/mL (>30)
[2024-04-14 09:06] LABS: Free T4 (Free Thyroxine) 0.96 ng/dL (0.71-1.85)
[2024-04-14 09:20] LABS: Creatinine Urine 80.89 mg/dL; Microalbumin Urine < 5.0 mg/L
[2024-04-17 22:52] LABS: Oxcarbazepine 25.1 mcg/mL (8.0-35.0)
== END 2024-04-14 06:40 | disposition home or self-care (01) ==
LOC: HO.LAB 06:39
PROVIDERS: Absent Provider Registered Nurse; PCP Physician Assistant; Visit Provider Physician Assistant
DX: E11.65 Type 2 diabetes mellitus with hyperglycemia (principal); E89.0 Postprocedural hypothyroidism; E55.9 Vitamin D deficiency, unspecified; K29.30 Chronic superficial gastritis without bleeding; G40.909 Epilepsy, unspecified, not intractable, without status epilepticus
CPT/HCPCS: 36415; 80053; 80339; 82043; 82306; 82570; 84439; 84443; 85027

== ENCOUNTER 2024-04-30 06:57 | Inpatient (IN) | payer OTHER, SELFPAY ==
[2024-04-30] VITALS (12 sets, daily range): BP systolic 95–139; BP diastolic 65–95; PULSE 100–115; RESP 13–21; TEMP 36.1–36.8; O2SAT 92–97; BMI 27.1; BMI 26.3
--- NOTE | ~2024-04-30 | CT_ITS ---
EXAMINATION: CT CHEST WITHOUT CONTRAST CLINICAL INFORMATION: Evaluate for aspiration during seizure. COMPARISON: None available. TECHNIQUE: Multidetector volumetric CT imaging of the chest was done. Axial MIP volume rendering provided. Sagittal and coronal reformatted images were obtained. This CT examination was performed using dose optimization techniques as appropriate, variously including the following: *Automated exposure control *Adjustment of mA and/or kV according to patient size (this includes techniques or standardized protocols for targeted exams where dose is matched to indication/reason for exam; i.e. extremities or head) *Use of iterative reconstruction technique DLP: 301 mGy-cm FINDINGS: Motion artifact technically degrades image quality. LUNGS: There is diffuse bronchial wall thickening. There are peribronchial groundglass opacities in the right upper lobe, left upper lobe and right lower lobe. No suspicious pulmonary nodule. Central airways are patent. MEDIASTINUM: The thyroid gland is not visualized. No bulky mediastinal, hilar or axillary lymphadenopathy. Great vessels are of normal caliber. Heart size is normal. No pericardial effusion. CORONARY ARTERY CALCIFICATION: None visualized on this study. PLEURA: No pleural effusion. AXILLA: Gynecomastia. UPPER ABDOMEN: No adrenal mass. Status post cholecystectomy. OSSEOUS STRUCTURES: No destructive bone lesions. CT/CT chest wo IV con IMPRESSION: Diffuse bronchial wall thickening with peribronchial groundglass opacities involving the right upper lobe, right lower lobe and left upper lobe. This can be seen in the setting of aspiration pneumonia.
--- NOTE | ~2024-04-30 | CT_ITS ---
EXAMINATION: CT HEAD W/O IV CONTRAST CT CERVICAL SPINE W/O IV CONTRAST CLINICAL INFORMATION: Neck and head trauma. COMPARISON: 05/20/2023 TECHNIQUE: Head - Contiguous axial imaging of the head was performed from the skull base to the vertex without the administration of intravenous contrast, and axial images are reconstructed at 2 mm and 5 mm slice thickness. Cervical spine - A volumetric, helical CT acquisition of the cervical spine was obtained without contrast; in addition to the standard set of axial images, multiplanar reformatted images were provided in the coronal and sagittal imaging planes. This CT examination was performed using dose optimization techniques as appropriate, variously including the following: *Automated exposure control *Adjustment of mA and/or kV according to patient size (this includes techniques or standardized protocols for targeted exams where dose is matched to indication/reason for exam; i.e. extremities or head) *Use of iterative reconstruction technique DLP: 712.22 mGy-cm for the head CT (after acquisition of the topogram) 341.33 mGy-cm for the cervical spine FINDINGS: HEAD: No acute intracranial findings. Vora to white matter differentiation is preserved. No evidence of intracranial hemorrhage, major vascular territory infarction, focal mass effect or midline shift. The ventricles have normal size and configuration. No hydrocephalus or extra-axial fluid collections. The calvarium is intact. There is a mucus retention cyst of the left maxillary sinus. Also, mucus is seen at the floors of the right maxillary sinus and left sphenoid sinus. No air-fluid levels within paranasal sinuses. The mastoid air cells and middle ear cavities are clear. The temporomandibular joints are intact. The orbits and globes are unremarkable. CERVICAL SPINE: The craniocervical junction is normal. The occipital condyles, dens and atlantodental articulation are intact. The vertebral body heights and alignment are maintained. No fractures in the anterior or posterior elements. No prevertebral soft tissue edema or soft tissue hematoma. Mild spondylosis of the cervical spine. No evidence of any significant stenosis of the cervical spinal canal or neural foramina. Thyroid gland appears to be surgically absent. Paraseptal emphysematous changes are observed at the lung apices. CT/CT cervical spine wo IV con IMPRESSION: * No acute intracranial pathology compared to 05/20/2023. * No fracture or malalignment in the cervical spine.
--- NOTE | ~2024-04-30 | FL_ITS ---
EXAMINATION: Modified Barium Swallow CLINICAL INFORMATION: Dysphagia COMPARISON: MBS estimated 12/04/2022. TECHNIQUE: Modified barium swallow was performed under lateral fluoroscopy with patient in standing position. Barium mixed with solids and liquids of different consistencies was administered by the speech pathologist. Examination was recorded in the fluoroscopy suite. FINDINGS: Trace laryngeal penetration was seen with thin consistency barium. No aspiration was observed. FLUOROSCOPY TIME: 1 minute 18 seconds Number of Spot Images: N/A DOSE AREA PRODUCT: 541.1 uGy-m2 (microgray-meter squared) FL/FL barium swallow modified IMPRESSION: Trace laryngeal penetration was seen with thin consistency barium. No subglottic aspiration was observed. Refer to the speech therapy report for further clarification This procedure was performed by Dale Tenorio PA-C, and supervised by Dr. Guillen
--- NOTE | ~2024-04-30 | XR_ITS ---
EXAMINATION: XR LEFT ANKLE XR LEFT FOOT CLINICAL INFORMATION: Status post fall. COMPARISON: None available. TECHNIQUE: AP and oblique views of the left foot. AP, lateral and oblique views of the left ankle. FINDINGS: No displaced fracture or malalignment. Ankle mortise is symmetric. Bone mineralization is normal. Joint spaces are preserved. No evidence of talar osteochondral lesion. No ankle joint effusion. XR/XR foot LT min 3V IMPRESSION: No acute abnormality.
--- NOTE | ~2024-04-30 | XR_ITS ---
EXAMINATION: XR LEFT ANKLE XR LEFT FOOT CLINICAL INFORMATION: Status post fall. COMPARISON: None available. TECHNIQUE: AP and oblique views of the left foot. AP, lateral and oblique views of the left ankle. FINDINGS: No displaced fracture or malalignment. Ankle mortise is symmetric. Bone mineralization is normal. Joint spaces are preserved. No evidence of talar osteochondral lesion. No ankle joint effusion. XR/XR ankle LT min 3V IMPRESSION: No acute abnormality.
--- NOTE | 2024-04-30 07:04 | ECG_ITS ---
Test Reason : SEIZURE Blood Pressure : / mmHG Vent. Rate : 095 BPM Atrial Rate : 095 BPM P-R Int : 160 ms QRS Dur : 092 ms QT Int : 368 ms P-R-T Axes : 032 -08 049 degrees QTc Int : 462 ms Normal sinus rhythm Minimal voltage criteria for LVH, may be normal variant ( R in aVL ) Septal infarct , age undetermined Abnormal ECG When compared with ECG of 01-AUG-2023 23:51, Septal infarct is now Present Nonspecific T wave abnormality no longer evident in Inferior leads Nonspecific T wave abnormality, improved in Lateral leads QT has lengthened Referred By: Leslie Agrawal Electronically Signed By:JEAN ALVARENGA
[2024-04-30] MEDS: LORazepam 2 MG/ML VIAL 1 MG IVPUSH (07:18)
[2024-04-30] MEDS: ondansetron HCL 4 MG/2 ML VIAL IVPUSH (07:18)
--- NOTE | 2024-04-30 07:31 | ED.SEIZURE ---
HPI - Seizure General Chief Complaint: Seizure Stated Complaint: sz,postictal per ems Time Seen by Provider: 04/30/24 07:01 Source: patient, EMS and old records reviewed Mode of arrival: EMS Limitations: other (postictal) History of Present Illness ED Provider: seizure HPI Narrative: 43 yo male with seizure on trileptal, clobazam, barrets esophagus, asthma, MEHNAZ, DM, GERD, cardiomyopathy EF 30%, thyroid cancer, dysphagia, gastroparesis, GI bleed, HLD, here with c/o seizure at home mom found him GTC seizure activity vomiting on EMS arrival. He has slight contusion to L eyebrow area. He denies any history to me or what could have caused this. He states he takes his medications. On arrival to the room he is actively vomiting and having a hard time clearing airway which I helped clear and suction and now voice and airway improved - obvious concern for pre-hospital aspiration. I had to remove collar in order to clear his airway. Patient is postictal. MD complaint: seizure Onset (ago): unknown Description of Episode: loss of consciousness and tonic-clonic movement Witnessed: Yes - by Bystander Trauma: Yes Seizure History: Yes Place: Home Possible Precipitating Event: none Associated symptoms: other (n/v) Treatments prior to arrival: other (glucose 240s) Related Data Home Medications ?Medication ?Instructions ?Recorded ?Confirmed tiotropium bromide 2.5 2 puff PO DAILY PRN Shortness Of 05/20/23 03/12/24 mcg/actuation mist for inhalation Breath (Spiriva Respimat) clobazam 10 mg tablet 10 mg PO DAILY 12/11/23 03/12/24 oxcarbazepine 600 mg tablet 600 mg PO BID 12/11/23 03/12/24 Previous Rx's ?Medication ?Instructions ?Recorded simethicone 80 mg chewable tablet 80 mg PO BID-QID PRN abdominal 04/14/22 (Gas Relief 80 (simethicone)) distention #30 tabs Sharps container #1 ea 12/18/22 aspirin 81 mg tablet,delayed 81 mg PO DAILY 90 days #90 tabs 01/03/23 release theophylline 400 mg 200 mg (1/2 x 400 mg) PO DAILY #15 04/30/23 tablet,extended release 24 hr tabs riboflavin (vitamin B2) 400 mg 400 mg PO DAILY pain 30 days #30 05/03/23 tablet tabs bisacodyl 5 mg tablet,delayed 10 mg (2 x 5 mg) PO BEDTIME #180 05/14/23 release (Dulcolax (bisacodyl)) tabs colesevelam 625 mg tablet (WelChol) 1,250 mg (2 x 625 mg) PO BID #120 09/18/23 tabs Synthroid 200 mcg tablet 200 mcg PO DAILY #30 tabs 10/04/23 (levothyroxine) sertraline 100 mg tablet 100 mg PO DAILY 90 days #90 tabs 10/15/23 gabapentin 300 mg capsule 300 mg PO BEDTIME PRN Pain 30 days 10/29/23 #30 caps dupilumab 300 mg/2 mL subcutaneous 300 mg (2 mL) subcut Q2W 28 days 11/16/23 pen injector (Dupixent) #4 mL atorvastatin 40 mg tablet 40 mg PO BEDTIME 90 days #90 tabs 03/12/24 carvedilol 3.125 mg tablet 3.125 mg PO BID 90 days #180 tabs 03/12/24 lisinopril 10 mg tablet 10 mg PO DAILY 90 days #90 tabs 03/12/24 metformin 500 mg tablet,extended 500 mg PO DAILY 90 days #90 tabs 03/12/24 release 24 hr montelukast 10 mg tablet 10 mg PO BEDTIME 90 days #90 tabs 03/12/24 nystatin 100,000 unit/mL oral 5 ml PO DAILY PRN thrush 30 days 03/12/24 suspension #200 mL omeprazole 40 mg capsule,delayed 40 mg PO BID #180 caps 03/18/24 release Ventolin HFA 90 mcg/actuation 2 puff PO Q6H PRN for dyspnea #18 03/31/24 aerosol inhaler (albuterol sulfate) grams Carafate 100 mg/mL oral suspension 10 ml PO BEDTIME #420 mL 04/07/24 (sucralfate) cholecalciferol (vitamin D3) 50 100 mcg (2 x 50 mcg (2,000 unit)) 04/14/24 mcg (2,000 unit) capsule PO DAILY 90 days #180 caps Allergies Allergy/AdvReac Type Severity Reaction Status Date / Time cat dander [CATS] Allergy Mild GENERALIZED Verified 04/30/24 07:14 ALLERGY SYMPTOMS dog dander [DOGS] Allergy Mild GENERALIZED Verified 04/30/24 07:14 ALLERGY SYMPTOMS tree and shrub pollen [TREE] Allergy Mild GENERALIZED Verified 04/30/24 07:14 ALLERGY SYMPTOMS FROM [place] Review of Systems Review of Systems: ROS unable to be obtained due to postictal state [facility] Past Medical History Source: old records reviewed Medical History Uvulitis Claustrophobia Takotsubo cardiomyopathy Schatzki's ring Gastritis Sleep apnea Diabetes Gastroparesis Migraine headache with aura Enlarged liver Postoperative hypothyroidism Thyroid cancer Vitamin D deficiency Multinodular thyroid Seizures ABPA (allergic bronchopulmonary aspergillosis) Myocardial infarct Seizures Asthma Surgical History S/P total thyroidectomy History of esophagogastroduodenoscopy (EGD) S/P removal of thyroid nodule History of cholecystectomy Family History Family History Maternal Grandmother Emphysema, unspecified Father Diabetes Mother No problems noted. Paternal Grandfather Liver cancer Colon cancer Social History Social History Household Members: Family Housing: Apartment Are you a primary hospice care consultant to a significant other at home: No Do you presently have visiting nurse or other home services: No Alcohol intake: former Comment: has poor balance Patient Tobacco Use Status: Never used Tobacco e-Cigarette/Vaping Use: Never Used Second Hand Smoke Exposure: No Substance Use Type: Marijuana Advance Directives: No Advance Directives Information Provided: Yes Advance Directives Date on File: 05/20/23 service: No Current occupational status: disabled Current occupation: rt handed Cognitive needs: No Hearing needs: No Vision needs: No Physical Exam Vital Signs: Vital Signs: Last Vital Signs Temp 97.8 F 04/30/24 08:57 Pulse 110 H 04/30/24 08:57 Resp 20 04/30/24 08:57 BP 114/74 04/30/24 08:57 Pulse Ox 94 04/30/24 08:57 O2 Del Method Room Air 04/30/24 08:57 BMI result Body Mass Index 27.1 Appearance: Alert. confused but trying to talk and coming around. Moderate acute distress on arrival to the room he was clearly near aspiration if he did not already Eyes: Pupils equal, round and reactive to light. ENT: Pharynx active vomiting initially on arrival had emesis in throat which I helped clear and due to aspiration risk collar was removed as he was vomiting and unable to clear with the collar and his short neck. Neck: Normal inspection. Neck supple. CVS: trachycardic heart rate and rhythm. Pulses normal. Respiratory: No respiratory distress. Breath sounds diminished R side Abdomen: Soft and nontender. Skin: Skin warm and diaphoretic. Normal skin color. Normal skin turgor. Extremities: No lower extremity edema. L foot bruise and pain at ankle as well bruising on dorsum he is NV intact Neuro: confused. No motor deficit. No sensory deficit. Course Course Course Narrative: 9am infection suspected WBC count tachycardic and concern for aspiration , lactic acid, cultures and IV zosyn ordered Medications Administered Generic Name Dose Route Start Last Admin Trade Name Freq PRN Reason Stop Dose Admin Sodium Chloride 1,000 mls @ 80 mls/hr 04/30/24 09:00 04/30/24 09:25 Ns IVCONT 80 mls/hr .[id number] FREDY Administration Discontinued Medications Generic Name Dose Route Start Last Admin Trade Name Freq PRN Reason Stop Dose Admin Piperacillin Sod/Tazobactam 100 mls @ 200 mls/hr 04/30/24 08:53 04/30/24 10:04 Sod 4.5 gm/ Sodium Chloride IV 04/30/24 09:22 200 mls/hr ONCE ONE Administration Lorazepam 1 mg 04/30/24 07:12 04/30/24 07:18 Lorazepam 2 Mg/Ml Vial IVPUSH 04/30/24 07:13 1 mg STAT STA Administration Morphine Sulfate 4 mg 04/30/24 09:05 04/30/24 09:25 Morphine Sulfate 4 Mg/Ml Cartridge IVPUSH 04/30/24 09:06 4 mg ONCE ONE Administration Protocol Ondansetron HCl 4 mg 04/30/24 07:12 04/30/24 07:18 Ondansetron Hcl 4 Mg/2 Ml Vial IVPUSH 04/30/24 07:13 4 mg ONCE ONE Administration Medical Decision Making Medical Decision Making MDM Narrative: 43 yo male with seizure on trileptal, clobazam, barrets esophagus, asthma, MEHNAZ, DM, GERD, cardiomyopathy, thyroid cancer, dysphagia, gastroparesis, GI bleed, HLD, here with c/o seizure at home with concern for pre-hospital aspiration at this time I am going to give him zofran, IV ativan, order home medications when he is ready as they are both oral, CT head/cspine, CT scan of chest for aspiration. Monitor his airway which I did clear and his voice is now normal and clear and his emesis has stopped. He has not had a seizure since 2022 unsure of precipitating event. Differential Diagnosis Differential Diagnoses: The differential diagnosis associated with the presentation includes seizure, head injury, aspiration Admission/Observation Consideration of admission/observation: Escalation of care including admission/observation considered still n/v and has aspiration pneumonia admit for monitoring and IV antibiotics high risk to go home Consult Healthcare Provider Management of the patient was discussed with: Hospitalist (will admit) Lab Data MDM Lab Attestation statement: I reviewed the patient's lab results. 04/30/24 08:13 04/30/24 08:13 Labs: Lab Results 04/30/24 04/30/24 04/30/24 Range/Units 08:13 09:36 09:52 WBC 24.6 H (4.8-10.8) X10*3/uL RBC 5.70 (4.60-5.80) X10*6/uL Hgb 16.6 (14.0-18.0) g/dl Hct 48.6 (42.0-52.0) % MCV 85.3 (80.0-98.0) fL MCH 29.1 (27.0-33.0) pg MCHC 34.2 (31.0-36.0) g/dl RDW 13.3 (11.0-16.0) % Plt Count 426 H D (160-400) X10*3/uL MPV 8.4 L (9.4-12.4) fL Immature Gran % (Auto) 0.7 H (0.0-0.4) % Neut % (Auto) 90.3 H (45-73) % Lymph % (Auto) 5.0 L (20-40) % Amelia % (Auto) 3.3 (2-11) % Eos % (Auto) 0.4 (0-4) % Baso % (Auto) 0.3 (0-2) % Lymph # (Auto) 1.2 (1.2-4.9) X10*3/uL Amelia # (Auto) 0.8 (0.1-1.2) X10*3/uL Eos # (Auto) 0.1 (0.0-0.4) X10*3/uL Baso # (Auto) 0.1 (0.0-0.2) X10*3/uL Abs Immat Gran (auto) 0.17 H (0.00-0.03) X10*3/uL Absolute Neuts (auto) 22.2 H (2.0-8.3) x10*3/uL Absolute Nucleated RBC 0.000 (0.0-0.012) X10*3/uL Nucleated RBC % (auto) 0.0 (0.0-0.2) /100WBC Smear Tech's Comments VERIFIED Sodium 133 L (135-145) mmol/L Potassium 4.7 (3.3-5.1) mmol/L Chloride 104 (96-108) mmol/L Carbon Dioxide 13 L (22-29) mmol/L Anion Gap 21 H (12-20) BUN 6 L (9-16) mg/dL Creatinine 1.04 (0.5-1.4) mg/dL Estim Creat Clear Calc 85.2 Estimated GFR > 60 Random Glucose 248 H (60-115) mg/dL Lactic Acid 2.9 H* (0.5-2.0) mmol/L Calcium 10.1 (8.4-10.2) mg/dL Magnesium 2.5 (1.6-2.6) mg/dL Total Bilirubin 0.3 (0.0-1.0) mg/dL Direct Bilirubin 0.1 (0.0-0.5) mg/dL AST 23 (5-37) U/L ALT 27 (0-40) U/L Alkaline Phosphatase 71 (39-117) U/L Total Protein 7.2 (6.5-8.0) g/dL Albumin 4.4 (3.5-5.0) g/dL Lipase 116 H (8-78) U/L Urine Color Yellow Urine Appearance Clear Urine pH 6.5 (5.0-9.0) Ur Specific New Site 1.015 (1.005-1.025) Urine Protein 100 (2+) H (Neg-Trace) mg/dL Urine Glucose (UA) >=1000 H (Negative) mg/dL Urine Ketones Trace (Negative) mg/dL Urine Blood Small (1+) H (Negative) Urine Nitrite Negative (Negative) Ur Leukocyte Esterase Negative (Negative) Urine RBC 0-2 (0-2) /HPF Urine WBC 0-5 (0-5) /HPF Ur Squamous Epith Cells 0-2 (0-2) /HPF Urine Bacteria None Seen (None Seen) Hyaline Casts 0-2 (0-2) /LPF Urine Opiates Screen Not Detected (Not Detect) Ur Buprenorphine Scrn Not Detected (Not Detect) ng/mL Ur Oxycodone Screen Not Detected (Not Detect) ng/mL Urine Methadone Screen Not Detected (Not Detect) ng/mL Urine Fentanyl Screen Not Detected (Not Detect) Ur Barbiturates Screen Not Detected (Not Detect) Ur Phencyclidine Scrn Not Detected (Not Detect) Ur Amphetamines Screen Not Detected (Not Detect) U Benzodiazepines Scrn POSITIVE H (Not Detect) Urine Cocaine Screen Not Detected (Not Detect) U Marijuana (THC) Screen POSITIVE H (Not Detect) Ethyl Alcohol < 10 mg/dL Independent Interpretation I performed an independent interpretation of an: EKG and CT Scan (no trauma, aspiration pneumonia) Interpretation: Rate: 95 Rhythm: NSR Flanagan: left Normal P waves. Normal VALERIO. Normal QRS complex. ST T wave : normal no ARNEL qTC: 462 prior studies: no acute ischemia The study has been interpreted contemporaneously by me. . Radiology Impression Discussion of test interpretation with radiology: I have reviewed the radiologist's reading. Independent Historian Clinical information obtained from an independent historian. History obtained from or confirmed by: Parent and EMS External Record Review External record reviewed: Inpatient record and Office record Critical Care Time Critical Care Time Critical Care Time: Yes Total Critical Care Time: 60 Attestation: IV ativan for seizures, IVF, review of records, clearance of airway from emesis, repeat assessments I attest to this time spent taking care of the patient Discharge Plan Discharge Clinical Impression: Epileptic seizure, Elevated WBC count, Aspiration pneumonia, Acidosis, lactic Patient Disposition: Admitted As Inpatient Print Language: Swedish
[2024-04-30 08:27] LABS: Basophils Absolute Auto 0.1 X10*3/uL (0.0-0.2); Basophils Percent Auto 0.3 % (0-2); Eosinophils Absolute Auto 0.1 X10*3/uL (0.0-0.4); Eosinophils Percent Auto 0.4 % (0-4); Hematocrit 48.6 % (42.0-52.0); Hemoglobin 16.6 g/dl (14.0-18.0); Imm Gran Abs Auto 0.17 X10*3/uL (0.00-0.03); Imm Gran Pct Auto 0.7 % (0.0-0.4); Lymphocytes Absolute Auto 1.2 X10*3/uL (1.2-4.9); MANUAL DIFF FLAG SCAN; Mean Corpuscular HGB Conc 34.2 g/dl (31.0-36.0); Mean Corpuscular Hemoglobin 29.1 pg (27.0-33.0); Mean Corpuscular Volume 85.3 fL (80.0-98.0); Mean Platelet Volume 8.4 fL (9.4-12.4); Monocytes Absolute Auto 0.8 X10*3/uL (0.1-1.2); Monocytes Percent Auto 3.3 % (2-11); Neutrophils Absolute Auto 22.2 x10*3/uL (2.0-8.3); Neutrophils Percent Auto 90.3 % (45-73); Platelet Count 426 X10*3/uL (160-400); Red Cell Distribution Width 13.3 % (11.0-16.0); SCAN SMEAR FLAG 1; White Blood Count 24.6 X10*3/uL (4.8-10.8)
[2024-04-30 08:31] LABS: Ethanol < 10 mg/dL
[2024-04-30 08:34] LABS: Alanine Aminotransferase 27 U/L (0-40); Albumin Level 4.4 g/dL (3.5-5.0); Alkaline Phosphatase 71 U/L (39-117); Anion Gap 21 (12-20); Aspartate Amino Transferase 23 U/L (5-37); Bilirubin Direct 0.1 mg/dL (0.0-0.5); Bilirubin Total 0.3 mg/dL (0.0-1.0); Blood Urea Nitrogen 6 mg/dL (9-16); Calcium 10.1 mg/dL (8.4-10.2); Carbon Dioxide 13 mmol/L (22-29); Chloride 104 mmol/L (96-108); Creatinine Clr Calc Pharmacy 85.2; Estimated Glomerular Filt Rate > 60; Glucose Random 248 mg/dL (60-115); Lipase 116 U/L (8-78); Magnesium 2.5 mg/dL (1.6-2.6); Potassium 4.7 mmol/L (3.3-5.1); Sodium 133 mmol/L (135-145); Total Protein 7.2 g/dL (6.5-8.0)
[2024-04-30 08:47] LABS: SLIDE REVIEW VERIFIED
--- NOTE | 2024-04-30 09:09 | PC.NURSE ---
This RN attemtped to give order PO medication. Swallow evaluation noted patient after one small sip of water became immediately nauseous and vomiting. MD made aware. PO medication not given.
--- NOTE | 2024-04-30 09:20 | PC.NURSE ---
Patient laying in bed and mother states he is having some sort of episode. Patient alert RR even unlabored but patient unable to anwser questions but is tearful. MD called to bedside to reassess. Patient episode lasted about 2 minutes before beocming verbal and reoriented.
[2024-04-30] MEDS: Morphine Sulfate 4 MG/ML CARTRIDGE IVPUSH (09:25)
[2024-04-30] MEDS: 0.9 % Sodium Chloride 1,000 ML 80 ML IVCONT (09:25)
[2024-04-30 10:00] LABS: Appearance Urine Clear; Color Urine Yellow; Glucose Urine UA >=1000 mg/dL (Negative); Leukocyte Esterase Urine Negative (Negative); Nitrite Urine Negative (Negative); PH 6.5 (5.0-9.0); Specific Gravity - Urine 1.015 (1.005-1.025); UMIC TRIGGER UACC YES; Urine Blood Small (1+) (Negative); Urine Ketones Trace mg/dL (Negative); Urine Protein 100 (2+) mg/dL (Neg-Trace)
[2024-04-30] MEDS: Piperacillin Sodium/Tazobactam 4.5 GM in 0.9 % Sodium Chloride 100 ML IV (10:04)
[2024-04-30 10:08] LABS: Bacteria Urine None Seen (None Seen); Hyaline Casts Urine 0-2 /LPF (0-2); RBC Urine 0-2 /HPF (0-2); Squamous Epithelial Cell Urine 0-2 /HPF (0-2); WBC Urine 0-5 /HPF (0-5)
[2024-04-30 10:09] LABS: Amphetamine Screen Urine Not Detected (Not Detect); Barbiturates, Urine Not Detected (Not Detect); Benzodiazepines Screen Urine POSITIVE (Not Detect); Buprenorphine Scr Not Detected (Not Detect); Cannabinoid Screen Urine POSITIVE (Not Detect); Cocaine Screen Urine Not Detected (Not Detect); Fentanyl, urine Not Detected (Not Detect); Methadone Screen, Urine Not Detected (Not Detect); Opiate Screen Urine Not Detected (Not Detect); Oxycodone Screen Urine Not Detected (Not Detect); Phencyclidine Screen Urine Not Detected (Not Detect)
[2024-04-30 10:23] LABS: Lactic Acid 2.9 mmol/L (0.5-2.0)
--- NOTE | 2024-04-30 10:50 | PC.NURSE ---
Patient fail swallow evaluation for 2nd time. Patient unable to tolerate one sip of water without multiple attempts at swallowing and once water is down immediately starts retching and vomiting water back up.
[2024-04-30] MEDS: 0.9 % Sodium Chloride 250 ML IV (10:57)
[2024-04-30] MEDS: Albuterol Sulfate 2.5 MG, Albuterol/Iprat 2.5/0.5MG 3 ML 3 ML INHALE (11:52)
[2024-04-30 11:57] LABS: Reflex Lactate? Lactic Acid Added
--- NOTE | 2024-04-30 14:47 | PHA.MEDREC ---
Pharmacy Consult ? Medication Reconciliation Pharmacy has completed the medication reconciliation. Spoke to patient and confirmed medication list. Patient said he injects Dupixent every 2 weeks on Sunday, the last dose was on 04/23/24. He only takes omeprazole 40 mg once a day at bedtime, he uses spiriva respimat as needed. As for the synthroid, he said he would be ok with taking the generic. He last took his medications yesterday.
[2024-04-30] MEDS: OXcarbazepine 300 MG TABLET 600 MG PO (14:53)
[2024-04-30] MEDS: Albuterol/Iprat 2.5/0.5MG 3 ML AMPUL.NEB INHALE ×3 (15:25→19:41)
--- NOTE | 2024-04-30 15:34 | P.HPHOSP_ITS ---
History of Present Illness Date of Service: 04/30/24 Attending physician on admission: Augustin [facility] Chief Complaint: breakthrough seizure 43M PMH epilepsy, barretts esophogus, severe persistent asthma, takatsubo cardiomyopathy, papillary thyroid cancer s/p thyroidectomy, mood disorder following with Dr. Powers presented to the ED via EMS following a breakthrough seizure. He reports he has had several minor absence seizures over the last year but last tonic clonic seizure was over one year ago. Pt was found on the ground seizing by his father, contorted and shaking foaming at the mouth. Unknown duration of seizure. Mother at bedside did not witness actually seizures but saw patient following activity and notes patient was confused and lethargic following seizure which persisted while in the ED. Pt oriented x3 on my exam, ambulated to the bathroom. Per ED provider, patient arrived in c-collar and was found choking with food particles in mouth, coughing, and desatting to 90%. Collar removed and patient was suction. Has been maintaining airway since. Since arrival, has been mildy tachycardic in the low 100s, vitals otherwise stable. He has a leukoctyosis of 26.4. Renal function baseline, lytes normal except sodium 133, CO2 13, vbg pending. Lactic acid 2.9, repeat 1.0. UA with 1+ blood, significant glucosuria and 2+ protein, otherwise unremarkable. Urine tox screen positive for benzos and THC, otherwise unremarkable. Head CT negative for acute intracranial abnormality. CT cervical spine negative for acute osseous abnormality. Chest CT shows diffuse bronchial wall thickening with peribronchial ground-glass opacities involving the right upper lobe, right lower lobe and left upper lobe concerning for aspiration pneumonia. X-ray of the left ankle and foot negative for fracture. Review of Systems 2 Review of Systems: Yes all other systems are reviewed and are negative [facility] Medical History Uvulitis Claustrophobia Takotsubo cardiomyopathy Schatzki's ring Gastritis Sleep apnea Diabetes Gastroparesis Migraine headache with aura Enlarged liver Postoperative hypothyroidism Thyroid cancer Vitamin D deficiency Multinodular thyroid Seizures ABPA (allergic bronchopulmonary aspergillosis) Myocardial infarct Seizures Asthma Family History Maternal Grandmother Emphysema, unspecified Father Diabetes Mother No problems noted. Paternal Grandfather Liver cancer Colon cancer Surgical History S/P total thyroidectomy History of esophagogastroduodenoscopy (EGD) S/P removal of thyroid nodule History of cholecystectomy Social History Household Members: Family Housing: Apartment Are you a primary critical care nurse to a significant other at home: No Do you presently have visiting nurse or other home services: No Alcohol intake: former Comment: has poor balance Patient Tobacco Use Status: Never used Tobacco Smoked in Last 30 Days: No e-Cigarette/Vaping Use: Never Used Second Hand Smoke Exposure: No Use of substances other than those prescribed or required for medical reasons: Yes Substance Use Type: Marijuana Substance Use Type Other:: marijuana use for sleeping Substance Use Frequency: Occasionally Last Used Substance: Days (ago) Advance Directives: No Advance Directives Information Provided: Yes Advance Directives Date on File: 05/20/23 Do you have a plan to hurt others: No Plan service: No Current occupational status: disabled Current occupation: rt handed Cognitive needs: No Hearing needs: No Vision needs: No Meds Allergies Allergy/AdvReac Type Severity Reaction Status Date / Time cat dander [CATS] Allergy Mild GENERALIZED Verified 04/30/24 07:14 ALLERGY SYMPTOMS dog dander [DOGS] Allergy Mild GENERALIZED Verified 04/30/24 07:14 ALLERGY SYMPTOMS tree and shrub pollen [TREE] Allergy Mild GENERALIZED Verified 04/30/24 07:14 ALLERGY SYMPTOMS FROM PINE TREES Active Medications: Current Medications Acetaminophen (Acetaminophen 325 Mg Tablet) 650 mg PO Q6H PRN PRN Reason: Pain, Mild (Pain Scale 1-3), fever or headache Melatonin (Melatonin 3 Mg Tablet) 6 mg PO BEDTIME PRN PRN Reason: Insomnia Sodium Chloride (0.9 % Sodium Chloride Flush 3 Ml Syringe) 3 ml IVFLUSH QSHIFT [facility] Home Medications ?Medication ?Instructions ?Recorded ?Confirmed ?Last Taken ?Type tiotropium bromide 2.5 2 puff PO DAILY PRN Shortness Of 05/20/23 04/30/24 Unknown History mcg/actuation mist for inhalation Breath (Spiriva Respimat) clobazam 10 mg tablet 5 mg PO BID 12/11/23 04/30/24 04/29/24 History oxcarbazepine 600 mg tablet 600 mg PO BID 12/11/23 04/30/24 04/29/24 History omeprazole 40 mg capsule,delayed 40 mg PO BEDTIME 04/30/24 04/30/24 04/29/24 History release Physical Exam 2 Vital Signs and Narrative: Vital Signs: Last Vital Signs Temp 98.3 F 04/30/24 14:00 Pulse 102 H 04/30/24 15:25 Resp 16 04/30/24 15:25 BP 110/72 04/30/24 14:00 Pulse Ox 95 04/30/24 14:00 O2 Del Method Room Air 04/30/24 14:00 BMI result Body Mass Index 27.1 Constitutional - Awake and Alert, No apparent distress Eyes - PERRLA, EOMI Cardiovascular - S1S2, RRR, No edema Respiratory - Normal lung expansion, Normal respiratory effort, No respiratory distress, CTA bilaterally Gastrointestinal - NT / ND; +BS; No rebound or guarding Extremities - no calf tenderness bilaterally, no swelling Skin - Warm/Dry Neurological - Alert & oriented x3, CN II-XII in tact, 5/5 strength BUE and BLE Psychological - Appropriate affect Results Labs 04/30/24 08:13 04/30/24 08:13 Labs: Laboratory Results - last 24 hr 04/30/24 04/30/24 04/30/24 08:13 09:36 09:52 MCV 85.3 MCH 29.1 MCHC 34.2 RDW 13.3 Plt Count 426 H D MPV 8.4 L Immature Gran % (Auto) 0.7 H Neut % (Auto) 90.3 H Lymph % (Auto) 5.0 L [place] % (Auto) 3.3 Eos % (Auto) 0.4 Baso % (Auto) 0.3 Lymph # (Auto) 1.2 [place] # (Auto) 0.8 Eos # (Auto) 0.1 Baso # (Auto) 0.1 Abs Immat Gran (auto) 0.17 H Absolute Neuts (auto) 22.2 H Absolute Nucleated RBC 0.000 Nucleated RBC % (auto) 0.0 Smear Tech's Comments VERIFIED Anion Gap 21 H Estim Creat Clear Calc 85.2 Estimated GFR > 60 Random Glucose 248 H Lactic Acid 2.9 H* Lactic Acid F/U @ 2Hr Calcium 10.1 Magnesium 2.5 Total Bilirubin 0.3 Direct Bilirubin 0.1 AST 23 ALT 27 Alkaline Phosphatase 71 Total Protein 7.2 Albumin 4.4 Lipase 116 H Urine Color Yellow Urine Appearance Clear Urine pH 6.5 Ur Specific [place] 1.015 Urine Protein 100 (2+) H Urine Glucose (UA) >=1000 H Urine Ketones Trace Urine Blood Small (1+) H Urine Nitrite Negative Ur Leukocyte Esterase Negative Urine RBC 0-2 Urine WBC 0-5 Ur Squamous Epith Cells 0-2 Urine Bacteria None Seen Hyaline Casts 0-2 Urine Opiates Screen Not Detected Ur Buprenorphine Scrn Not Detected Ur Oxycodone Screen Not Detected Urine Methadone Screen Not Detected Urine Fentanyl Screen Not Detected Ur Barbiturates Screen Not Detected Ur Phencyclidine Scrn Not Detected Ur Amphetamines Screen Not Detected U Benzodiazepines Scrn POSITIVE H Urine Cocaine Screen Not Detected U Marijuana (THC) Screen POSITIVE H Ethyl Alcohol < 10 04/30/24 12:20 MCV MCH MCHC RDW Plt Count MPV Immature Gran % (Auto) Neut % (Auto) Lymph % (Auto) [place] % (Auto) Eos % (Auto) Baso % (Auto) Lymph # (Auto) [place] # (Auto) Eos # (Auto) Baso # (Auto) Abs Immat Gran (auto) Absolute Neuts (auto) Absolute Nucleated RBC Nucleated RBC % (auto) Smear Tech's Comments Anion Gap Estim Creat Clear Calc Estimated GFR Random Glucose Lactic Acid Lactic Acid F/U @ 2Hr 1.0 Calcium Magnesium Total Bilirubin Direct Bilirubin AST ALT Alkaline Phosphatase Total Protein Albumin Lipase Urine Color Urine Appearance Urine pH Ur Specific [place] Urine Protein Urine Glucose (UA) Urine Ketones Urine Blood Urine Nitrite Ur Leukocyte Esterase Urine RBC Urine WBC Ur Squamous Epith Cells Urine Bacteria Hyaline Casts Urine Opiates Screen Ur Buprenorphine Scrn Ur Oxycodone Screen Urine Methadone Screen Urine Fentanyl Screen Ur Barbiturates Screen Ur Phencyclidine Scrn Ur Amphetamines Screen U Benzodiazepines Scrn Urine Cocaine Screen U Marijuana (THC) Screen Ethyl Alcohol Imaging Radiologist's Impressions: Impressions Cervical Spine CT 04/30/24 08:33 IMPRESSION: * No acute intracranial pathology compared to 05/20/2023. * No fracture or malalignment in the cervical spine. Chest CT 04/30/24 08:33 IMPRESSION: Diffuse bronchial wall thickening with peribronchial groundglass opacities involving the right upper lobe, right lower lobe and left upper lobe. This can be seen in the setting of aspiration pneumonia. Head CT 04/30/24 08:33 IMPRESSION: * No acute intracranial pathology compared to 05/20/2023. * No fracture or malalignment in the cervical spine. Ankle X-Ray 04/30/24 08:50 IMPRESSION: No acute abnormality. Foot X-Ray 04/30/24 08:50 IMPRESSION: No acute abnormality. Assessment and Plan (1) Aspiration pneumonia: Qualifiers: Aspiration pneumonia type: unspecified Laterality: bilateral Lung location: unspecified part of lung Qualified Code(s): J69.0 - Pneumonitis due to inhalation of food and vomit Status: Acute (2) Epileptic seizure: Status: Acute Plan 43M PMH epilepsy, barretts esophogus, severe persistent asthma, takatsubo cardiomyopathy, papillary thyroid cancer s/p thyroidectomy, mood disorder following with Dr. Poewrs to be observed for breakthrough seizure and aspiration pneumonia #Breakthrough epileptic seizure -continue trileptal 600mg bid and clobazam 5mg BID per neurology -add 1mg lorazepam q30m prn for breathrough seizure -eeg ordered -neurology consult -seizure precautions -head ct/cervical spine ct negative for acute abnormality #Acute aspiration pneumonia -in setting of seizure activity. Chest CT shows diffuse bronchial wall thickening with peribronchial ground-glass opacities involving the right upper lobe, right lower lobe and left upper lobe concerning for aspiration pneumonia. -nursing bedside swallow eval. Advance diet per prior ONLINE CONTENT COORDINATOR eval (has chronic dysphagia following thyroidectomy)- regular/thin liquids pills crushed in puree, sit upright 90 degrees -IV unasyn (initiated 04/30) -guaifenesin -DuoNebs p.r.n. -Leukocytosis reactive 2/2 seizure, tachcardic r/t seizure/post ictal state- no sepsis -Follow cbc, cultures. Sputum culture ordered # sirs criteria -leukocytosis reactive related to seizure activity, tachycardia related to seizure/postictal state. No sepsis # acute lactic acidosis -due to seizure activity, no severe sepsis # takotsubo cardiomyopathy/coronary artery disease -continue ASA, carvedilol, statin # postoperative hypothyroidism with history of thyroid cancer -continue levothyroxine # chronic dysphagia -see mBSS from 11/2022. Diet recommendations above # [id number] type 2 diabetes -POC glucose, diabetic diet -Humalog sliding scale -hold metformin # hypertension -continue lisinopril # severe persistent asthma -no exacerbation -continue maintenance inhalers, theophylline, DuoNeb/albuterol p.r.n. -outpatient Dupixent injections DVT prophylaxis-Lovenox Full code Quality Stroke Does the patient have a stroke diagnosis?: No VTE Prior VTE?: No VTE Risk Level:: Medical - moderate - high VTE Device Contraindication: Treatment Not Indicated VTE Drug Contraindication: N/A - Med Ordered
--- NOTE | 2024-04-30 15:54 | MHC.EDTECH ---
Patient requesting food. This tech discussed with FRANKLIN Mascorro, per RN danitza for soft food ie jello/pudding/apple sauce. This tech provided patient with Jello and gingerale. All needs met.
--- NOTE | 2024-04-30 16:10 | MHC.EDTECH ---
Patient swallowed gingerale and jello fine. Patient does endorse some stomach discomfort and nausea. FRANKLIN Mascorro aware.
[2024-04-30] MEDS: cloBAZam 10 MG TABLET 5 MG PO (16:40)
[2024-04-30] MEDS: 0.9 % Sodium Chloride Flush 3 ML SYRINGE IVFLUSH (16:42)
[2024-04-30 16:47] LABS: VBG Base Excess -5.5 mmol/L; VBG HCO3 16 mmol/L (22-26); VBG pCO2 23 mmHg; VBG pH 7.44 (7.32-7.43); VBG pO2 215 mmHg
[2024-04-30 16:49] LABS: Venous Blood Gas Refer to POC result
[2024-04-30] MEDS: Ampicillin Sodium/Sulbactam Na 3 GM in 0.9 % Sodium Chloride 100 ML IV (17:57)
[2024-04-30] MEDS: Enoxaparin Sodium 40 MG/0.4 ML SYRINGE SUBCUT (17:58)
[2024-04-30] MEDS: Acetaminophen 325 MG TABLET 650 MG PO (21:15)
[2024-05-01] VITALS (11 sets, daily range): BP systolic 95–140; BP diastolic 55–87; PULSE 78–112; RESP 16–20; TEMP 36.1–36.4; O2SAT 97–98
--- NOTE | 2024-05-01 | EEG_ITS ---
This is a 16-channel EEG with an EKG lead. The patient is reported awake during the tracing. Background EEG rhythm is 10-12 hertz 5-20 microvolt posteriorly, lower amplitude fast anteriorly. Frequent intermittently right hemispheric sharply controlled theta discharges, sometime sharp waves were noted. Cardiac lead did not reveal any significant abnormality. Photic stimulation was unremarkable. Hyperventilation was not performed. IMPRESSION: Abnormal EEG suggestive of right frontotemporal irritability. MD ISHA Vallejo/NOEMI / [id number]
[2024-05-01] MEDS: cloBAZam 10 MG TABLET 5 MG PO ×3 (00:33→20:23)
[2024-05-01] MEDS: 0.9 % Sodium Chloride Flush 3 ML SYRINGE IVFLUSH ×2 (01:15→07:53)
[2024-05-01] MEDS: Ampicillin Sodium/Sulbactam Na 3 GM in 0.9 % Sodium Chloride 100 ML IV ×2 (01:20→06:27)
[2024-05-01 06:18] LABS: MANUAL DIFF FLAG NO
[2024-05-01 06:41] LABS: Basophils Percent Auto 0.3 % (0-2); Eosinophils Percent Auto 0.4 % (0-4); Hematocrit 42.4 % (42.0-52.0); Hemoglobin 14.5 g/dl (14.0-18.0); Imm Gran Abs Auto 0.05 X10*3/uL (0.00-0.03); Imm Gran Pct Auto 0.5 % (0.0-0.4); Lymphocytes Absolute Auto 2.3 X10*3/uL (1.2-4.9); Lymphocytes Percent Auto 21.8 % (20-40); Mean Corpuscular HGB Conc 34.2 g/dl (31.0-36.0); Mean Corpuscular Hemoglobin 28.8 pg (27.0-33.0); Mean Corpuscular Volume 84.3 fL (80.0-98.0); Mean Platelet Volume 8.8 fL (9.4-12.4); Monocytes Absolute Auto 0.8 X10*3/uL (0.1-1.2); Monocytes Percent Auto 7.9 % (2-11); Neutrophils Absolute Auto 7.4 x10*3/uL (2.0-8.3); Neutrophils Percent Auto 69.1 % (45-73); Platelet Count 333 X10*3/uL (160-400); Red Blood Count 5.03 X10*6/uL (4.60-5.80); White Blood Count 10.6 X10*3/uL (4.8-10.8)
[2024-05-01 06:50] LABS: Anion Gap 12 (12-20); Blood Urea Nitrogen 5 mg/dL (9-16); Calcium 8.9 mg/dL (8.4-10.2); Carbon Dioxide 20 mmol/L (22-29); Chloride 112 mmol/L (96-108); Creatinine Clr Calc Pharmacy 91.1; Estimated Glomerular Filt Rate > 60; Glucose Random 119 mg/dL (60-115); Potassium 4.2 mmol/L (3.3-5.1); Sodium 140 mmol/L (135-145)
[2024-05-01] MEDS: Albuterol/Iprat 2.5/0.5MG 3 ML AMPUL.NEB INHALE ×3 (07:09→16:19)
[2024-05-01 07:29] LABS: Glucose, Whole Blood 136 mg/dL (60-115)
--- NOTE | 2024-05-01 07:46 | HO.PM.IMPN ---
Subjective Subjective Date of Service: 05/01/24 Interval History: f/u on breakthrough seizure No seizure overnight, eeg done result pending Physical Exam Vital Signs: Vital Signs: Last Vital Signs Temp 97.6 F 05/01/24 03:34 Pulse 78 05/01/24 07:10 Resp 16 05/01/24 07:10 BP 95/55 L 05/01/24 03:34 Pulse Ox 98 05/01/24 03:34 O2 Del Method Room Air 05/01/24 03:34 O2 Flow Rate 97 04/30/24 16:00 BMI result Body Mass Index 26.3 General: AO X 3, no acute distress Resp: CTA bilateral CVS: S1,S2,RRR GI: +BS, NT, no distention Skin: No rash Neuro: motor grossly intact Psych: appropriate affect Objective Data Active Medications Acetaminophen (Acetaminophen 325 Mg Tablet) 650 mg PO Q6H PRN PRN Reason: Pain, Mild (Pain Scale 1-3), fever or headache Last Admin: 04/30/24 21:15 Dose: 650 mg Documented By: DEMOND Albuterol/Ipratropium (Albuterol/Iprat 2.5/0.5mg 3 Ml Ampul.Neb) 3 ml INHALE RQ4H WHILE AWAKE [facility] Last Admin: 05/01/24 07:09 Dose: 3 ml Documented By: OMAYRA Calcium Carbonate (Calcium Carbonate 750 Mg Tab.Chew) 750 mg PO Q4H PRN PRN Reason: Heartburn Clobazam (Clobazam 10 Mg Tablet) 5 mg PO BID [facility] Last Admin: 05/01/24 00:33 Dose: 5 mg Documented By: DEMOND Enoxaparin Sodium (Enoxaparin Sodium 40 Mg/0.4 Ml Syringe) 40 mg SUBCUT Q24H [facility] Last Admin: 04/30/24 17:58 Dose: 40 mg Documented By: CHANTEL Glucose (Glucose Gel 15 Gm Gel..Gram.) 15 gm PO Q15M PRN; Protocol PRN Reason: per Hypoglycemia Standing Ord. Guaifenesin (Guaifenesin 200 Mg/10 Ml 10 Ml Liquid) 10 ml PO Q4H PRN PRN Reason: Cough Ampicillin Sodium/Sulbactam (Sodium 3 gm/ Sodium Chloride) 100 mls @ 200 mls/hr IV Q6H [facility] Last Admin: 05/01/24 06:27 Dose: 200 mls/hr Documented By: DEMOND Dextrose (D10) 250 mls @ 750 mls/hr IV Q15M PRN; Protocol PRN Reason: per Hypoglycemia Standing Ord. Insulin Human Lispro (Insulin Lispro 100 Unit/Ml 3 Ml Vial) 0 unit SUBCUT QIDACHS [facility]; Protocol Lorazepam (Lorazepam 2 Mg/Ml Vial) 1 mg IVPUSH Q30M PRN PRN Reason: breakthrough seizures Magnesium Hydroxide (Milk Of Magnesia 30 Ml Oral.Susp) 30 ml PO DAILY PRN PRN Reason: Constipation Melatonin (Melatonin 3 Mg Tablet) 6 mg PO BEDTIME PRN PRN Reason: Insomnia Ondansetron HCl (Ondansetron Hcl 4 Mg/2 Ml Vial) 4 mg IVPUSH Q8H PRN PRN Reason: Nausea and Vomiting Sodium Chloride (0.9 % Sodium Chloride Flush 3 Ml Syringe) 3 ml IVFLUSH QSHIFT [facility] Last Admin: 05/01/24 01:15 Dose: 3 ml Documented By: DEMOND Labs 05/01/24 06:06 05/01/24 06:06 Labs: Laboratory Results - last 24 hr 04/30/24 04/30/24 04/30/24 08:13 09:36 09:52 MCV 85.3 MCH 29.1 MCHC 34.2 RDW 13.3 Plt Count 426 H D MPV 8.4 L Immature Gran % (Auto) 0.7 H Neut % (Auto) 90.3 H Lymph % (Auto) 5.0 L [place] % (Auto) 3.3 Eos % (Auto) 0.4 Baso % (Auto) 0.3 Lymph # (Auto) 1.2 [place] # (Auto) 0.8 Eos # (Auto) 0.1 Baso # (Auto) 0.1 Abs Immat Gran (auto) 0.17 H Absolute Neuts (auto) 22.2 H Absolute Nucleated RBC 0.000 Nucleated RBC % (auto) 0.0 Smear Tech's Comments VERIFIED VBG pH VBG pCO2 VBG pO2 VBG HCO3 VBG O2 Saturation VBG Base Excess Anion Gap 21 H Estim Creat Clear Calc 85.2 Estimated GFR > 60 POC Glucose Random Glucose 248 H Lactic Acid 2.9 H* Lactic Acid F/U @ 2Hr Calcium 10.1 Magnesium 2.5 Total Bilirubin 0.3 Direct Bilirubin 0.1 AST 23 ALT 27 Alkaline Phosphatase 71 Total Protein 7.2 Albumin 4.4 Lipase 116 H Urine Color Yellow Urine Appearance Clear Urine pH 6.5 Ur Specific [place] 1.015 Urine Protein 100 (2+) H Urine Glucose (UA) >=1000 H Urine Ketones Trace Urine Blood Small (1+) H Urine Nitrite Negative Ur Leukocyte Esterase Negative Urine RBC 0-2 Urine WBC 0-5 Ur Squamous Epith Cells 0-2 Urine Bacteria None Seen Hyaline Casts 0-2 Urine Opiates Screen Not Detected Ur Buprenorphine Scrn Not Detected Ur Oxycodone Screen Not Detected Urine Methadone Screen Not Detected Urine Fentanyl Screen Not Detected Ur Barbiturates Screen Not Detected Ur Phencyclidine Scrn Not Detected Ur Amphetamines Screen Not Detected U Benzodiazepines Scrn POSITIVE H Urine Cocaine Screen Not Detected U Marijuana (THC) Screen POSITIVE H Ethyl Alcohol < 10 04/30/24 04/30/24 05/01/24 12:20 16:36 06:06 MCV 84.3 MCH 28.8 MCHC 34.2 RDW 14.0 Plt Count 333 MPV 8.8 L Immature Gran % (Auto) 0.5 H Neut % (Auto) 69.1 Lymph % (Auto) 21.8 [place] % (Auto) 7.9 Eos % (Auto) 0.4 Baso % (Auto) 0.3 Lymph # (Auto) 2.3 [place] # (Auto) 0.8 Eos # (Auto) 0.0 Baso # (Auto) 0.0 Abs Immat Gran (auto) 0.05 H Absolute Neuts (auto) 7.4 Absolute Nucleated RBC 0.000 Nucleated RBC % (auto) 0.0 Smear Tech's Comments VBG pH 7.44 H VBG pCO2 23 VBG pO2 215 VBG HCO3 16 L VBG O2 Saturation 100.0 VBG Base Excess -5.5 Anion Gap 12 Estim Creat Clear Calc 91.1 Estimated GFR > 60 POC Glucose Random Glucose 119 H Lactic Acid Lactic Acid F/U @ 2Hr 1.0 Calcium 8.9 D Magnesium Total Bilirubin Direct Bilirubin AST ALT Alkaline Phosphatase Total Protein Albumin Lipase Urine Color Urine Appearance Urine pH Ur Specific [place] Urine Protein Urine Glucose (UA) Urine Ketones Urine Blood Urine Nitrite Ur Leukocyte Esterase Urine RBC Urine WBC Ur Squamous Epith Cells Urine Bacteria Hyaline Casts Urine Opiates Screen Ur Buprenorphine Scrn Ur Oxycodone Screen Urine Methadone Screen Urine Fentanyl Screen Ur Barbiturates Screen Ur Phencyclidine Scrn Ur Amphetamines Screen U Benzodiazepines Scrn Urine Cocaine Screen U Marijuana (THC) Screen Ethyl Alcohol 05/01/24 07:18 MCV MCH MCHC RDW Plt Count MPV Immature Gran % (Auto) Neut % (Auto) Lymph % (Auto) [place] % (Auto) Eos % (Auto) Baso % (Auto) Lymph # (Auto) [place] # (Auto) Eos # (Auto) Baso # (Auto) Abs Immat Gran (auto) Absolute Neuts (auto) Absolute Nucleated RBC Nucleated RBC % (auto) Smear Tech's Comments VBG pH VBG pCO2 VBG pO2 VBG HCO3 VBG O2 Saturation VBG Base Excess Anion Gap Estim Creat Clear Calc Estimated GFR POC Glucose 136 H Random Glucose Lactic Acid Lactic Acid F/U @ 2Hr Calcium Magnesium Total Bilirubin Direct Bilirubin AST ALT Alkaline Phosphatase Total Protein Albumin Lipase Urine Color Urine Appearance Urine pH Ur Specific [place] Urine Protein Urine Glucose (UA) Urine Ketones Urine Blood Urine Nitrite Ur Leukocyte Esterase Urine RBC Urine WBC Ur Squamous Epith Cells Urine Bacteria Hyaline Casts Urine Opiates Screen Ur Buprenorphine Scrn Ur Oxycodone Screen Urine Methadone Screen Urine Fentanyl Screen Ur Barbiturates Screen Ur Phencyclidine Scrn Ur Amphetamines Screen U Benzodiazepines Scrn Urine Cocaine Screen U Marijuana (THC) Screen Ethyl Alcohol Assessment and Plan (1) Epileptic seizure: Status: Acute Plan 43M PMH epilepsy, barretts esophogus, severe persistent asthma, takatsubo cardiomyopathy, papillary thyroid cancer s/p thyroidectomy, mood disorder following with Dr. Powers to be observed for breakthrough seizure and aspiration pneumonia #Breakthrough epileptic seizure -continue trileptal 600mg bid and clobazam 5mg BID per neurology -add 1mg lorazepam q30m prn for breathrough seizure -eeg done, result pending -neurology recommends increasing trileptal to 900bid -seizure precautions -head ct/cervical spine ct negative for acute abnormality #Acute aspiration pneumonia, no hypoxia, no fever, WBC normal. Change Unassyn to Augmentin for 5 to 7 days. # sirs criteria -leukocytosis reactive related to seizure activity, tachycardia related to seizure/postictal state. 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 Diet recommendations above # [id number] type 2 diabetes -POC glucose, diabetic diet -Humalog sliding scale -hold metformin # hypertension, BP on low side, hold med # severe persistent asthma -no exacerbation -continue maintenance inhalers, theophylline, DuoNeb/albuterol p.r.n. -outpatient Dupixent injections DVT prophylaxis-Lovenox Full code need for inpt: Breakthrough seizure Quality Stroke Does the patient have a stroke diagnosis?: No VTE Prior VTE?: No VTE Risk Level:: Medical - moderate - high VTE Device Contraindication: Treatment Not Indicated VTE Drug Contraindication: N/A - Med Ordered
--- NOTE | 2024-05-01 09:18 | MHC.CM.PN ---
Betty 05/01/24, pt lives with family, no home health services, DME: nebulizer, CPAP. HCP form to be completed today and added to chart, naming his mother and father. Pt is able to arrange transport home at [place]. DCP: home, self care, CM will follow and assist with DC plan.
[2024-05-01] MEDS: carvediloL 3.125 MG TABLET PO ×2 (11:07→20:22)
[2024-05-01 11:54] LABS: Glucose, Whole Blood 142 mg/dL (60-115)
--- NOTE | 2024-05-01 12:29 | PM.NEUROCN ---
History of Present Illness Data of Consult Service Date: 05/01/24 Primary Care Provider: Saúl Maier PA-C HPI Reason for consult: Seizure 43M PMH epilepsy, barretts esophogus, severe persistent asthma, takatsubo cardiomyopathy, papillary thyroid cancer s/p thyroidectomy, mood disorder following with Dr. Powers presented to the ED via EMS following a breakthrough seizure. He reported 2 types of seizures. Stating that seizure started few years ago. Smaller seizures included staring in space and unresponsiveness and larger 1 resulting in generalized shaking and passing out. He had video EEG monitoring done at [facility] that revealed mostly right hemispheric partial seizure type of abnormalities but also some left frontal. He was seeing Dr. Powers and was treated with different antiepileptics but [facility] started him on oxcarbazepine. Review of Systems Review of Systems: No recent cold or flu-like PMFSH Past Medical History Medical History Uvulitis Claustrophobia Takotsubo cardiomyopathy Schatzki's ring Gastritis Sleep apnea Diabetes Gastroparesis Migraine headache with aura Enlarged liver Postoperative hypothyroidism Thyroid cancer Vitamin D deficiency Multinodular thyroid Seizures ABPA (allergic bronchopulmonary aspergillosis) Myocardial infarct Seizures Asthma Family History Family History Maternal Grandmother Emphysema, unspecified Father Diabetes Mother No problems noted. Paternal Grandfather Liver cancer Colon cancer Surgical History Surgical History S/P total thyroidectomy History of esophagogastroduodenoscopy (EGD) S/P removal of thyroid nodule History of cholecystectomy Social History Social History Household Members: Family Housing: Apartment Are you a primary hospice care transitions coordinator to a significant other at home: No Do you presently have visiting nurse or other home services: No Alcohol intake: former Comment: has poor balance Patient Tobacco Use Status: Never used Tobacco Smoked in Last 30 Days: No e-Cigarette/Vaping Use: Never Used Second Hand Smoke Exposure: No Use of substances other than those prescribed or required for medical reasons: Yes Substance Use Type: Marijuana Substance Use Type Other:: marijuana use for sleeping Substance Use Frequency: Occasionally Last Used Substance: Weeks (ago) Currently Displaying Signs/Symptoms of Drug Intoxication Withdrawal: No Any prior treatment program specific to substance use: No Have you been hit, kicked, punched, or otherwise hurt by someone within the past year? If so, by whom?: No Do you feel safe in your current relationship?: Yes Is there a partner from a previous relationship who is making you feel unsafe now?: No Are you made to feel afraid or neglected: No Advance Directives: No Advance Directives Information Provided: Yes Advance Directives Date on File: 05/20/23 Do you have a plan to hurt others: No Plan Recently lost weight without trying: No Eating poorly because of decreased appetite: No Nutrition Risks: No Nutritional Risk Poor oral hygiene: No service: No Current occupational status: disabled Current occupation: rt handed Cognitive needs: No Hearing needs: No Vision needs: No Meds Allergies Allergy/AdvReac Type Severity Reaction Status Date / Time cat dander [CATS] Allergy Mild GENERALIZED Verified 04/30/24 07:14 ALLERGY SYMPTOMS dog dander [DOGS] Allergy Mild GENERALIZED Verified 04/30/24 07:14 ALLERGY SYMPTOMS tree and shrub pollen [TREE] Allergy Mild GENERALIZED Verified 04/30/24 07:14 ALLERGY SYMPTOMS FROM PINE TREES Active Medications: Current Medications Acetaminophen (Acetaminophen 325 Mg Tablet) 650 mg PO Q6H PRN PRN Reason: Pain, Mild (Pain Scale 1-3), fever or headache Last Admin: 04/30/24 21:15 Dose: 650 mg Albuterol Sulfate (Albuterol Sulfate 90 Mcg 8 Gm Inhaler) 2 puff INHALE Q6H PRN PRN Reason: for dyspnea Albuterol/Ipratropium (Albuterol/Iprat 2.5/0.5mg 3 Ml Ampul.Neb) 3 ml INHALE RQ4H WHILE AWAKE [facility] Last Admin: 05/01/24 11:28 Dose: 3 ml Amoxicillin/Clavulanate Potassium (Amoxicillin/Potassium Clav 875 Mg Tablet) 875 mg PO Q12H [facility] Last Admin: 05/01/24 11:18 Dose: Not Given Aspirin (Aspirin Enteric Coated 81 Mg Tablet.Dr) 81 mg PO DAILY [facility] Last Admin: 05/01/24 11:18 Dose: Not Given Atorvastatin Calcium (Atorvastatin Calcium 40 Mg Tablet) 40 mg PO BEDTIME [facility] Bisacodyl (Bisacodyl 5 Mg Tablet.) 10 mg PO BEDTIME [facility] Calcium Carbonate (Calcium Carbonate 750 Mg Tab.Chew) 750 mg PO Q4H PRN PRN Reason: Heartburn Carvedilol (Carvedilol 3.125 Mg Tablet) 3.125 mg PO BID [facility]; Protocol Last Admin: 05/01/24 11:07 Dose: 3.125 mg Clobazam (Clobazam 10 Mg Tablet) 5 mg PO BID [facility] Last Admin: 05/01/24 07:51 Dose: 5 mg Enoxaparin Sodium (Enoxaparin Sodium 40 Mg/0.4 Ml Syringe) 40 mg SUBCUT Q24H [facility] Last Admin: 04/30/24 17:58 Dose: 40 mg Glucose (Glucose Gel 15 Gm Gel..Gram.) 15 gm PO Q15M PRN; Protocol PRN Reason: per Hypoglycemia Standing Ord. Guaifenesin (Guaifenesin 200 Mg/10 Ml 10 Ml Liquid) 10 ml PO Q4H PRN PRN Reason: Cough Dextrose (D10) 250 mls @ 750 mls/hr IV Q15M PRN; Protocol PRN Reason: per Hypoglycemia Standing Ord. Insulin Human Lispro (Insulin Lispro 100 Unit/Ml 3 Ml Vial) 0 unit SUBCUT QIDACHS [facility]; Protocol Last Admin: 05/01/24 11:56 Dose: Not Given Levothyroxine Sodium (Levothyroxine Sodium 200 Mcg Tablet) 200 mcg PO DAILY@0600 [facility] Last Admin: 05/01/24 11:19 Dose: Not Given Lisinopril (Lisinopril 10 Mg Tablet) 10 mg PO DAILY [facility]; Protocol Last Admin: 05/01/24 11:19 Dose: Not Given Lorazepam (Lorazepam 2 Mg/Ml Vial) 1 mg IVPUSH Q30M PRN PRN Reason: breakthrough seizures Magnesium Hydroxide (Milk Of Magnesia 30 Ml Oral.Susp) 30 ml PO DAILY PRN PRN Reason: Constipation Melatonin (Melatonin 3 Mg Tablet) 6 mg PO BEDTIME PRN PRN Reason: Insomnia Montelukast Sodium (Montelukast Sodium 10 Mg Tablet) 10 mg PO BEDTIME [facility] Non-Formulary Medication (Dupilumab [Dupixent Pen]) 300 mg SUBCUT Q14D [facility] Omeprazole (Omeprazole 40 Mg Capsule.) 40 mg PO BEDTIME [facility] Ondansetron HCl (Ondansetron Hcl 4 Mg/2 Ml Vial) 4 mg IVPUSH Q8H PRN PRN Reason: Nausea and Vomiting Oxcarbazepine (Oxcarbazepine 300 Mg Tablet) 600 mg PO BID [facility] Last Admin: 05/01/24 11:19 Dose: Not Given Sertraline HCl (Sertraline Hcl 100 Mg Tablet) 100 mg PO DAILY [facility] Last Admin: 05/01/24 11:20 Dose: Not Given Sodium Chloride (0.9 % Sodium Chloride Flush 3 Ml Syringe) 3 ml IVFLUSH QSHIFT [facility] Last Admin: 05/01/24 07:53 Dose: 3 ml Sucralfate (Sucralfate Oral Suspension 1 Gm/10 Ml Oral.Susp) 1 gm PO BEDTIME [facility] Theophylline (Theophylline Anhydrous Er 400 Mg Tab.Er.24h) 200 mg PO DAILY [facility] Last Admin: 05/01/24 11:20 Dose: Not Given Tiotropium [place] (Tiotropium [place] 2.5 Mcg 1 Puff/2.5 Mcg Mist.Inhal) 2 puff INHALE DAILY PRN PRN Reason: Shortness Of Breath Vitamin D (Cholecalciferol (Vitamin D3) 25 Mcg Tablet) 100 mcg PO DAILY [facility] Last Admin: 05/01/24 11:19 Dose: Not Given Home Medications ?Medication ?Instructions ?Recorded ?Confirmed ?Last Taken ?Type tiotropium bromide 2.5 2 puff PO DAILY PRN Shortness Of 05/20/23 04/30/24 Unknown History mcg/actuation mist for inhalation Breath (Spiriva Respimat) clobazam 10 mg tablet 5 mg PO BID 12/11/23 04/30/24 04/29/24 History oxcarbazepine 600 mg tablet 600 mg PO BID 12/11/23 04/30/24 04/29/24 History omeprazole 40 mg capsule,delayed 40 mg PO BEDTIME 04/30/24 04/30/24 04/29/24 History release Physical Exam Vital Signs: Vital Signs: Last Vital Signs Temp 97.2 F 05/01/24 12:00 Pulse 111 H 05/01/24 12:00 Resp 20 05/01/24 12:00 BP 135/78 05/01/24 12:00 Pulse Ox 98 05/01/24 12:00 O2 Del Method Room Air 05/01/24 12:00 O2 Flow Rate 97 04/30/24 16:00 BMI result Body Mass Index 26.3 Neuro: Other: He is alert and awake with normal spontaneity of speech fluency comprehension and affect. Face is symmetrical. Visual wright are full. [id number] testing is normal. Results Labs 05/01/24 06:06 05/01/24 06:06 Labs: Short CBC 05/01/24 Range/Units 06:06 WBC 10.6 (4.8-10.8) X10*3/uL Hgb 14.5 (14.0-18.0) g/dl Hct 42.4 (42.0-52.0) % Plt Count 333 (160-400) X10*3/uL BMP 05/01/24 06:06 Sodium 140 Potassium 4.2 Chloride 112 H Carbon Dioxide 20 L BUN 5 L Creatinine 0.90 [address]cium [address] revealed mild cortical atrophy. Microbiology Microbiology Results: Microbiology 04/30/24 09:52 Blood - Venous Blood Culture - Preliminary No growth after 24 hours. 04/30/24 09:36 Blood - Venous Blood Culture - Preliminary No growth after 24 hours. 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 He was here with breakthrough seizure my recommendation is to increase dose of oxcarbazepine to 900 mg twice a day. He can follow-up with his neurologist in few weeks type of further guidance. Procedures Date of Service Date of Service: 05/01/24
--- NOTE | 2024-05-01 14:23 | MHC.SL.SWA ---
Speech Pathologist Impression: Risk of Aspiration Due to: Dysphasia Diet Status: Ground/Mechanical (NDD2) Thin liquids, pills crushed in puree Liquid Consistency and Strategies for Safe Swallow: Liquid Intake Recommendation: Thin Liquid Intake Strategies: Small Sips Solid Food Consistency: Dietary Recommendations: Grnd/Mech Altered (NDD2) Additional Modifications to Solid Foods: Add sauces and gravies to all textures on tray. Small bites/sips alternate each bite of food with sips of liquid (also when administering medication). Oral Medication Intake: Crushed with Puree Please contact the pharmacy regarding appropriate crushable or liquid drug formulations that are available whenever modified delivery is recommended. Compensatory Strategies and Precautions to be Taken for Safe Swallow: Sitting Upright (90 deg) Liquids from Cup Small Bites and Sips Alternate Liquids/Solids Rate of Ingestion Change Supervision While Eating and Drinking for Safe Swallow: None Needed Foods to Avoid: Tough, crunchy dry textures, mixed consistencies Swallowing Recommended Treatments: Compens. Strategy Educat. Recommendation for Speech: Inpatient Speech Therapy Comment: Patient with a history of pharyngeal esophageal dysphagia and anxiety about difficulties with swallowing. Patient presents today very anxious about swallowing difficulty, concerned about textures of food and difficulties he might have swallowing, and repeated c/o globus and discomfort/pain after swallowing both solids and liquids presented today. Patient tolerated thin liquids, puree and ground textures trialed with him today, although again anxious, one occasion coughing/spitting up what he had just swallowed, and c/o nausea. Recommend DOWNGRADE diet to Ground/Mechanical (NDD2) continue on THIN liquids, pills crushed in puree. Patient encouraged to take food in small bites and sips, and to alternate sips of liquid after each bite of food. MD/RD notified of recommendation by secure text, RN in person, COLLECTION ADVISOR will continue to follow. Frequency/Duration: Date Range for Service Req: Timeline to reassess: Candle Extrusion Machine Operator Clinican/Clinical Fellow: No Supervisory Statement: I have reviewed and agree with the student/clinical fellow's documentation: N/A Speech Language Pathologist: Carmelita Eden M.A., [facility]-COLLECTION ADVISOR
[2024-05-01] MEDS: Acetaminophen 325 MG TABLET 650 MG PO (14:42)
[2024-05-01] MEDS: Amoxicillin/Potassium Clav 875 MG TABLET PO ×2 (15:17→20:21)
[2024-05-01] MEDS: Levothyroxine Sodium 200 MCG TABLET PO (15:17)
[2024-05-01] MEDS: Sertraline HCL 100 MG TABLET PO (15:17)
[2024-05-01] MEDS: Theophylline Anhydrous ER 400 MG TAB.ER.24H 200 MG PO (15:17)
[2024-05-01 15:50] LABS: Glucose, Whole Blood 186 mg/dL (60-115)
[2024-05-01] MEDS: Enoxaparin Sodium 40 MG/0.4 ML SYRINGE SUBCUT (16:57)
[2024-05-01] MEDS: Insulin Lispro 100 UNIT/ML 3 ML VIAL SUBCUT (16:57)
[2024-05-01] MEDS: ondansetron HCL 4 MG/2 ML VIAL IVPUSH (18:26)
[2024-05-01] MEDS: Nystatin Oral Susp 500,000 UNIT/5 ML ORAL.SUSP 500000 UNIT PO (18:27)
[2024-05-01] MEDS: Atorvastatin Calcium 40 MG TABLET PO (20:21)
[2024-05-01] MEDS: OXcarbazepine 300 MG TABLET 900 MG PO (20:23)
[2024-05-01] MEDS: Montelukast Sodium 10 MG TABLET PO (20:23)
[2024-05-01] MEDS: Omeprazole 40 MG CAPSULE.DR PO (20:23)
[2024-05-01] MEDS: Sucralfate Oral Suspension 1 GM/10 ML ORAL.SUSP PO (20:24)
[2024-05-01 20:30] LABS: Glucose, Whole Blood 123 mg/dL (60-115)
[2024-05-02] MEDS: Calcium Carbonate 750 MG TAB.CHEW PO (00:34)
[2024-05-02 03:23] VITALS: BP 100/62; PULSE 72; RESP 20; TEMP 36.5; O2SAT 99
[2024-05-02 07:12] LABS: Glucose, Whole Blood 135 mg/dL (60-115)
[2024-05-02 07:43] VITALS: PULSE 72; RESP 20; O2SAT 96
[2024-05-02] MEDS: Albuterol/Iprat 2.5/0.5MG 3 ML AMPUL.NEB INHALE (07:43)
[2024-05-02 08:00] VITALS: BP 141/74; PULSE 85; RESP 18; TEMP 37.1; O2SAT 98
--- NOTE | 2024-05-02 09:19 | MHC.SLORD ---
Speech Language Pathology Order Status: MBSS ordered per Dr. Pool, scheduled with Radiology for 2pm today. pc network technician will arrange for Transport.
--- NOTE | 2024-05-02 10:34 | HO.PM.IMPN ---
Subjective Subjective Date of Service: 05/02/24 Interval History: f/u on breakthrough seizure No seizure overnight, eeg show frontal activity Physical Exam Vital Signs: Vital Signs: Last Vital Signs Temp 98.7 F 05/02/24 08:00 Pulse 85 05/02/24 08:00 Resp 18 05/02/24 08:00 BP 141/74 H 05/02/24 08:00 Pulse Ox 98 05/02/24 08:00 O2 Del Method Room Air 05/02/24 08:00 O2 Flow Rate 97 04/30/24 16:00 BMI result Body Mass Index 26.3 General: AO X 3, no acute distress Resp: CTA bilateral CVS: S1,S2,RRR GI: +BS, NT, no distention Skin: No rash Neuro: motor grossly intact Psych: appropriate affect Objective Data Active Medications Acetaminophen (Acetaminophen 325 Mg Tablet) 650 mg PO Q6H PRN PRN Reason: Pain, Mild (Pain Scale 1-3), fever or headache Last Admin: 05/01/24 14:42 Dose: 650 mg Documented By: JESSICA Albuterol Sulfate (Albuterol Sulfate 90 Mcg 8 Gm Inhaler) 2 puff INHALE Q6H PRN PRN Reason: for dyspnea Albuterol/Ipratropium (Albuterol/Iprat 2.5/0.5mg 3 Ml Ampul.Neb) 3 ml INHALE RQ4H WHILE AWAKE [facility] Last Admin: 05/02/24 07:43 Dose: 3 ml Documented By: JU Amoxicillin/Clavulanate Potassium (Amoxicillin/Potassium Clav 875 Mg Tablet) 875 mg PO Q12H [facility] Last Admin: 05/01/24 20:21 Dose: 875 mg Documented By: DEMOND Aspirin (Aspirin Enteric Coated 81 Mg Tablet.) 81 mg PO DAILY [facility] Last Admin: 05/02/24 09:15 Dose: Not Given Documented By: MARIA ISABEL Non-Admin Reason: unable to crush Atorvastatin Calcium (Atorvastatin Calcium 40 Mg Tablet) 40 mg PO BEDTIME [facility] Last Admin: 05/01/24 20:21 Dose: 40 mg Documented By: DEMOND Bisacodyl (Bisacodyl 5 Mg Tablet.) 10 mg PO BEDTIME [facility] Last Admin: 05/01/24 21:03 Dose: Not Given Documented By: DEMOND Non-Admin Reason: Patient Refused Calcium Carbonate (Calcium Carbonate 750 Mg Tab.Chew) 750 mg PO Q4H PRN PRN Reason: Heartburn Last Admin: 05/02/24 00:34 Dose: 750 mg Documented By: DEMOND Carvedilol (Carvedilol 3.125 Mg Tablet) 3.125 mg PO BID [facility]; Protocol Last Admin: 05/01/24 20:22 Dose: 3.125 mg Documented By: DEMOND Clobazam (Clobazam 10 Mg Tablet) 5 mg PO BID [facility] Last Admin: 05/01/24 20:23 Dose: 5 mg Documented By: DEMOND Enoxaparin Sodium (Enoxaparin Sodium 40 Mg/0.4 Ml Syringe) 40 mg SUBCUT Q24H [facility] Last Admin: 05/01/24 16:57 Dose: 40 mg Documented By: JESSICA Glucose (Glucose Gel 15 Gm Gel..Gram.) 15 gm PO Q15M PRN; Protocol PRN Reason: per Hypoglycemia Standing Ord. Guaifenesin (Guaifenesin 200 Mg/10 Ml 10 Ml Liquid) 10 ml PO Q4H PRN PRN Reason: Cough Dextrose (D10) 250 mls @ 750 mls/hr IV Q15M PRN; Protocol PRN Reason: per Hypoglycemia Standing Ord. Insulin Human Lispro (Insulin Lispro 100 Unit/Ml 3 Ml Vial) 0 unit SUBCUT QIDACHS [facility]; Protocol Last Admin: 05/02/24 08:09 Dose: Not Given Documented By: MARIA ISABEL Non-Admin Reason: No Insulin Coverage Levothyroxine Sodium (Levothyroxine Sodium 200 Mcg Tablet) 200 mcg PO DAILY@0600 [facility] Last Admin: 05/02/24 07:54 Dose: Not Given Documented By: MARIA ISABEL Non-Admin Reason: per retail shift supervisor med previously administered Lisinopril (Lisinopril 10 Mg Tablet) 10 mg PO DAILY [facility]; Protocol Last Admin: 05/01/24 11:19 Dose: Not Given Documented By: JESSICA Non-Admin Reason: pt unable to take pills Lorazepam (Lorazepam 2 Mg/Ml Vial) 1 mg IVPUSH Q6H PRN PRN Reason: anxiety/restlessness Magnesium Hydroxide (Milk Of Magnesia 30 Ml Oral.Susp) 30 ml PO DAILY PRN PRN Reason: Constipation Melatonin (Melatonin 3 Mg Tablet) 6 mg PO BEDTIME PRN PRN Reason: Insomnia Montelukast Sodium (Montelukast Sodium 10 Mg Tablet) 10 mg PO BEDTIME [facility] Last Admin: 05/01/24 20:23 Dose: 10 mg Documented By: DEMOND Non-Formulary Medication (Dupilumab [Dupixent Pen]) 300 mg SUBCUT Q14D [facility] Nystatin (Nystatin Oral Susp 500,000 Unit/5 Ml Oral.Susp) 500,000 unit PO DAILY PRN; Protocol PRN Reason: thrush Last Admin: 05/01/24 18:27 Dose: 500,000 unit Documented By: NORMA Omeprazole (Omeprazole 40 Mg Capsule.Dr) 40 mg PO BEDTIME [facility] Last Admin: 05/01/24 20:23 Dose: 40 mg Documented By: DEMOND Ondansetron HCl (Ondansetron Hcl 4 Mg/2 Ml Vial) 4 mg IVPUSH Q8H PRN PRN Reason: Nausea and Vomiting Last Admin: 05/01/24 18:26 Dose: 4 mg Documented By: NORMA Oxcarbazepine (Oxcarbazepine 300 Mg Tablet) 900 mg PO BID [facility] Last Admin: 05/01/24 20:23 Dose: 900 mg Documented By: DEMOND Sertraline HCl (Sertraline Hcl 100 Mg Tablet) 100 mg PO DAILY [facility] Last Admin: 05/01/24 15:17 Dose: 100 mg Documented By: NORMA Sodium Chloride (0.9 % Sodium Chloride Flush 3 Ml Syringe) [facility] Last Admin: 05/02/24 09:35 Dose: Not Given Documented By: DOBROB Non-Admin Reason: pt refused, asking for new iv due to pain Sucralfate (Sucralfate Oral Suspension 1 Gm/10 Ml Oral.Susp) 1 gm PO BEDTIME [facility] Last Admin: 05/01/24 20:24 Dose: 1 gm Documented By: DEMOND Theophylline (Theophylline Anhydrous Er 400 Mg Tab.Er.24h) 200 mg PO DAILY [facility] Last Admin: 05/01/24 15:17 Dose: 200 mg Documented By: NORMA Tiotropium [place] (Tiotropium [place] 2.5 Mcg 1 Puff/2.5 Mcg Mist.Inhal) 2 puff INHALE DAILY PRN PRN Reason: Shortness Of Breath Vitamin D (Cholecalciferol (Vitamin D3) 25 Mcg Tablet) 100 mcg PO DAILY [facility] Last Admin: 05/01/24 11:19 Dose: Not Given Documented By: JESSICA Non-Admin Reason: pt unable to take pills Labs 05/01/24 06:06 05/01/24 06:06 Labs: Laboratory Results - last 24 hr 05/01/24 05/01/24 05/01/24 11:50 15:44 20:24 POC Glucose 142 H 186 H 123 H 05/02/24 07:01 POC Glucose 135 H Microbiology Microbiology Results: Microbiology 04/30/24 09:52 Blood Culture - Preliminary Blood - Venous No growth after 24 hours. 04/30/24 09:36 Blood Culture - Preliminary Blood - Venous No growth after 24 hours. Assessment and Plan (1) Epileptic seizure: Status: Acute Plan 43M PMH epilepsy, barretts esophogus, severe persistent asthma, takatsubo cardiomyopathy, papillary thyroid cancer s/p thyroidectomy, mood disorder following with Dr. Powers to be observed for breakthrough seizure and aspiration pneumonia #Breakthrough epileptic seizure -continue trileptal increased to 900 mg bid and clobazam 5mg BID per neurology -Lorazepam PRN for breakthrough -eeg showed frontal activity -neurology recommends increasing trileptal to 900bid -seizure precautions -head ct/cervical spine ct negative for acute abnormality #Acute aspiration pneumonia, no hypoxia, no fever, WBC normal. Changed Unassyn to Augmentin for 5 to 7 days. # sirs criteria -leukocytosis reactive related to seizure activity, tachycardia related to seizure/postictal state. 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 Diet recommendations above # [id number] type 2 diabetes -POC glucose, diabetic diet -Humalog sliding scale -hold metformin # hypertension, BP on low side, hold med # severe persistent asthma -no exacerbation -continue maintenance inhalers, theophylline, DuoNeb/albuterol p.r.n. -outpatient Dupixent injections DVT prophylaxis-Lovenox Full code need for inpt: Breakthrough seizure Quality Stroke Does the patient have a stroke diagnosis?: No VTE Prior VTE?: No VTE Risk Level:: Medical - moderate - high VTE Device Contraindication: Treatment Not Indicated VTE Drug Contraindication: N/A - Med Ordered
[2024-05-02 11:20] LABS: Glucose, Whole Blood 104 mg/dL (60-115)
[2024-05-02] MEDS: LORazepam 2 MG/ML VIAL 1 MG IVPUSH (11:50)
[2024-05-02 12:00] VITALS: BP 189/80; PULSE 90; RESP 20; TEMP 36.1; O2SAT 97
[2024-05-02] MEDS: Theophylline Anhydrous ER 400 MG TAB.ER.24H 200 MG PO (12:28)
[2024-05-02] MEDS: cloBAZam 10 MG TABLET 5 MG PO (12:30)
[2024-05-02] MEDS: Cholecalciferol (Vitamin D3) 25 MCG TABLET 100 MCG PO (12:30)
[2024-05-02] MEDS: carvediloL 3.125 MG TABLET PO (12:30)
[2024-05-02] MEDS: OXcarbazepine 300 MG TABLET 900 MG PO (12:30)
[2024-05-02] MEDS: lisinopriL 10 MG TABLET PO (12:31)
[2024-05-02] MEDS: Sertraline HCL 100 MG TABLET PO (12:31)
--- NOTE | 2024-05-02 13:55 | MHC.CM.PN ---
per rounds, pt is awaiting barrium swallow, DCP will be home, self care.
--- NOTE | 2024-05-02 15:13 | MHC.SL.IMP ---
Date of Plan of Treatment: 05/02/24 Onset of Symptoms/Illness: 05/01/24 Date Treatment Started: 05/02/24 Admitting Diagnosis: Dysphagia, unspecified Primary Speech & Language Diagnosis: R13.19 Other Dysphagia Reason for Today's Visit: 60842 Modified Barium Swallow Study Comments: Pt had an unwitnessed seizure lasting for an indiscriminate amount of time. Chest CT showed, bilateral upper lobe infiltrates suggestive of aspiration. Pre-evaluation Dietary Consistencies: Grnd/Mech Altered (NDD2) Pre-evaluation Liquid Consistency: Thin Medical History: Other: See below Comments: Medical History Uvulitis Claustrophobia Takotsubo cardiomyopathy Schatzki's ring Gastritis Sleep apnea Diabetes Gastroparesis Migraine headache with aura Enlarged liver Postoperative hypothyroidism Thyroid cancer Vitamin D deficiency Multinodular thyroid Seizures ABPA (allergic bronchopulmonary aspergillosis) Myocardial infarct Seizures Asthma Surgical History S/P total thyroidectomy History of esophagogastroduodenoscopy (EGD) S/P removal of thyroid nodule History of cholecystectomy [facility] Fall Risk Assessment Score: Oral Motor Exam Facial Symmetry: Symmetrical Facial Movement: Oral-Facial Facial Miscellaneous Observations: Mouth Occlusion: Normal Oral-Facial Teeth Characteristics: Intact/Normal Oral Expression Ability: No Impairment Is patient able to manage secretions?: No Is patient able to produce volitional cough?: N/A Food and Liquid Trials: Oral Impairment: Lip Closure: 1=Interlabial escape; no progression to anterior tip Oral Impairment: Tongue Control During Bolus Hold: 0=Cohesive bolus between tongue to palatal seal Oral Impairment: Bolus Preparation/Mastication: 0=Timely and efficient chewing and mashing Oral Impairment: Bolus Transport/Lingual Motion: 0=Brisk tongue motion Oral Impairment: Oral Residue: 1=Trace residue lining oral structures Oral Impairment:Initiation of Pharyngeal Swallow: 3=Bolus head in pyriforms Pharyngeal Impairment: Soft Palate Elevation: 0=No bolus between soft palate (SP)/pharyngeal wall (PW) Pharyngeal Impairment: Laryngeal Elevation: 0=Complete superior movement of thyroid cartilage (see description) Pharyngeal Impairment: Anterior Hyoid Excursion: 0=Complete anterior movement Pharyngeal Impairment: Epiglottic Movement: 0=Complete inversion Pharyngeal Impairment: Laryngeal Vestibular Closure:: 1=Incomplete: narrow column air/contrast in laryngeal vestibule Pharyngeal Impairment: Pharyngeal Stripping Wave: 0=Present: complete Pharyngeal Impairment: Pharyngeal Contraction: Did not test Pharyngeal Impairment: Pharyngoesophageal Segment Openin=Complete distension and complete duration: no obstruction of flow Pharyngeal Impairment: Tongue Base (TB) Retraction: 1=Trace column of contrast/air between TB and posterior PW Pharyngeal Impairment: Pharyngeal Residue: 1=Trace residue within or on pharyngeal structures Pharyngeal Impairment: Esophageal Clearance Upright Position: Did not test Impressions and Recommendations Clinical Observations: Current (pre-evaluation) Intake/Diet: Pre-Study Functional Oral Intake Scale (FOIS): 5- Total oral intake of multiple consistencies requiring special [id number] [facility] Results: Lip closure for intraoral bolus containment resulted in interlabial escape, without progression to the anterior lip. Tongue control during bolus hold maintained a cohesive bolus held between tongue to palate seal. Bolus preparation and mastication resulted in timely and efficient chewing and mashing. Bolus transport/lingual motion was with brisk tongue motion. Oral residue was a trace, lining oral structures. Initiation of the pharyngeal swallow occurred when the bolus head was in the pyriform sinuses. Soft palate elevation resulted in no bolus between the soft palate and the pharyngeal wall. Laryngeal elevation demonstrated complete superior movement of the thyroid cartilage with complete approximation of the arytenoids to the epiglottic petiole. Anterior hyoid excursion demonstrated complete anterior movement. Epiglottic movement resulted in complete inversion. Laryngeal vestibular closure was incomplete, with a narrow column of air/contrast noted within the laryngeal vestibule at the height of the swallow. Pharyngeal stripping wave was present and complete. Pharyngeal contraction could not be determined due to logistical reasons not related to physiologic impairment. Pharyngoesophageal segment opening was completely distended for complete duration with no obstruction of bolus flow. Tongue base retraction allowed a trace column of contrast or air between the retracted tongue base and the posterior pharyngeal wall. Pharyngeal residue was a trace within or on pharyngeal structures. Esophageal clearance in the upright position could not be assessed due to logistical reasons not related to physiologic impairment. Oral Impairment Score: 3 Pharyngeal Impairment Score: 1 (absence of score, component 13) Esophageal Impairment Score: --- (absence of score, component 17) Laryngeal Penetration and Aspiration: Penetration was observed in today's study. Thin Contrast entered the airway, remained above the vocal folds, and was ejected from the airway. SUMMARY: Terrance was provided Thin Liquid, Puree Solids and Regular Solids coated in barium contrast. He demonstrated penetration during the height of the swallow on his second trial of Thin Liquids self-administered by cup. This is considered within normal limits. With each trial, he complained of something ?scratching his throat? and feeling like something was stuck. He was re-assured that despite this sensation the study showed that there was no contrast present in the pharyngeal cavity after the swallow. He was asked to drink 4 oz of Thin Liquid contrast with consecutive sips. He tolerated initially, but then started to feel nauseous and had to use his emesis bag. The study was then discontinued. The results of today?s study show intact oropharyngeal swallowing ability. He is deemed little to no risk of aspiration during the swallow. However, his discomfort after only a trace amount of food is concerning for other gastro-esophageal pathologies that have worsened over time. He is followed by GI on an outpatient basis and according to recent notes has been feeling better with medication. It is safe to assume that that regimen has been thrown off due to his recent hospitalization. For his sensation of scratching in the back of his throat, a laryngoscope may determine a cause however this would have to be on an outpatient basis. For now, PHOTOGRAPHIC HAND DEVELOPER is recommending return to Regular Solids and Thin Liquids. Medications Whole or Crushed with Puree, as preferred. Intermittent supervision to assure safety and compliance with diet. PHOTOGRAPHIC HAND DEVELOPER discussed these results with the Pt and he is more comfortable choosing from an unrestricted diet than limiting his food choices. Esophageal dysphagia precautions include: - Sit upright before and after meals, preferably out of bed. - Chew food well. - Alternate bites with sips. - Slow pace - Smaller more frequent meals (leave tray at bedside for him to work slowly) Liquid Intake Recommendation: Thin Liquid Intake Strategies: Small Sips Dietary Recommendations: Regular Medication Administration: Whole with Puree Please contact the pharmacy regarding appropriate crushable or liquid drug formulations that are available whenever modified delivery is recommended. Compensatory Strategies Recommended: Sitting Upright (90 deg) Double Swallow Liquids from Cup Small Bites and Sips Alternate Liquids/Solids Rate of Ingestion Change Supervision during eating and or drinking: Intermittent Supervision Recommended Treatments: Compens. Strategy Educat. Recommendation for Speech Therapy: Inpatient Speech Therapy Text Comment: PHOTOGRAPHIC HAND DEVELOPER is recommending return to Regular Solids and Thin Liquids. Medications Whole or Crushed with Puree, as preferred. Intermittent supervision to assure safety and compliance with diet. PHOTOGRAPHIC HAND DEVELOPER discussed these results with the Pt and he is more comfortable choosing from an unrestricted diet than limiting his food choices. Esophageal dysphagia precautions include: - Sit upright before and after meals, preferably out of bed. - Chew food well. - Alternate bites with sips. - Slow pace - Smaller more frequent meals (leave tray at bedside for him to work slowly) Frequency/Duration: Daily Date Range for Service Requested: Admission Timeline to reassess: PRN Grain Picker Clinician/Clinical Fellow: No Supervisory Statement: N/A Speech Language Pathologist: Scooter Mosqueda M.A., CCC-PHOTOGRAPHIC HAND DEVELOPER
--- NOTE | 2024-05-02 15:29 | P.DS_ITS ---
DS: Providers Provider Date of Service: 05/02/24 Date of admission: 05/01/24 09:59 Primary care physician: Saúl Maier PA-C Consults: 04/30/24 15:29 Consult to Neurology Routine Consulting Provider: [facility] Reason for consultation: breakthrough seizure DS: Diagnosis Discharge Diagnosis (1) Epileptic seizure: Status: Acute DS: Summary Hospital Course Hospital Course: Chief Complaint: breakthrough seizure 43M PMH epilepsy, barretts esophogus, severe persistent asthma, takatsubo cardiomyopathy, papillary thyroid cancer s/p thyroidectomy, mood disorder following with Dr. Powers presented to the ED via EMS following a breakthrough seizure. He reports he has had several minor absence seizures over the last year but last tonic clonic seizure was over one year ago. Pt was found on the ground seizing by his father, contorted and shaking foaming at the mouth. Unknown duration of seizure. Mother at bedside did not witness actually seizures but saw patient following activity and notes patient was confused and lethargic following seizure which persisted while in the ED. Pt oriented x3 on my exam, ambulated to the bathroom. Per ED provider, patient arrived in c-collar and was found choking with food particles in mouth, coughing, and desatting to 90%. Collar removed and patient was suction. Has been maintaining airway since. Since arrival, has been mildy tachycardic in the low 100s, vitals otherwise stable. He has a leukoctyosis of 26.4. Renal function baseline, lytes normal except sodium 133, CO2 13, vbg pending. Lactic acid 2.9, repeat 1.0. UA with 1+ blood, significant glucosuria and 2+ protein, otherwise unremarkable. Urine tox screen positive for benzos and THC, otherwise unremarkable. Head CT negative for acute intracranial abnormality. CT cervical spine negative for acute osseous abnormality. Chest CT shows diffuse bronchial wall thickening with peribronchial ground-glass opacities involving the right upper lobe, right lower lobe and left upper lobe concerning for aspiration pneumonia. X-ray of the left ankle and foot negative for fracture. Hospital course: Patient presented with breakthrough seizure and admit being compliant with his meds, patient believed to have suffered from aspiration pneumonia as result causing elevated wbc, lactinc acidosis. He was treated with IV ativan in ED. Neurology saw him and recommended EEG and increasing trileptal from 600 mg to 900 mg twice. EEG showed some frontal activity. He has not had any further seizures in the hospital . Aspiration pneumonia was treated with IV Unasyn and changed to Augmentin and will be treated for a total of 5 days. He is afebrile, WBC is now normal. Patient was having dysphagia following the seizure and was seen by [employer] and subsequently his diet was modified, he eventually had a modified barium study show no evidence of aspiration and regular diet was reintroduced. Time Attestation Discharge Coordination Time (in mins): 35 Quality: Safe Use of Opioids Does Pt have an Active Cancer Diagnosis on the Problem List?: No Quality: Stroke Does the patient have a stroke diagnosis?: No Physical Exam Vital Signs: Vital Signs: Last Vital Signs Temp 97.0 F 05/02/24 12:00 Pulse 90 05/02/24 12:00 Resp 20 05/02/24 12:00 BP 189/80 H 05/02/24 12:00 Pulse Ox 97 05/02/24 12:00 O2 Del Method Room Air 05/02/24 12:00 O2 Flow Rate 97 04/30/24 16:00 BMI result Body Mass Index 26.3 DS: Data Data Completed and Pending Labs on day of discharge: Laboratory Results - last 24 hr 05/01/24 05/01/24 05/02/24 15:44 20:24 07:01 POC Glucose 186 H 123 H 135 H 05/02/24 11:07 POC Glucose 104 Preliminary micro results at discharge 04/30/24 09:52 Blood Culture - Preliminary Blood - Venous No growth after 48 hours. 04/30/24 09:36 Blood Culture - Preliminary Blood - Venous No growth after 48 hours. Discharge Plan Discharge Anticipated Discharge Date/Time: 05/02/24 15:34 Patient Disposition: Home, Self-Care Discharge Diagnosis: breakthrough seizure Referrals: Saúl Maier PA-C [Primary Care Provider] - 1 Week Discharge Medications: New oxcarbazepine [Trileptal] 300 mg tablet 300 mg PO BID Qty: 180 0RF Continued (DME) Sharps container See Rx Instructions .Route .MEDSUPPLY Qty: 1 0RF Rx Instructions: As directed aspirin 81 mg tablet,delayed release (DR/EC) 81 mg PO DAILY 90 Days Qty: 90 2RF Hold Instructions: Doctor's Order theophylline 400 mg tablet extended release 24 hr 200 mg PO DAILY Qty: 15 6RF sertraline 100 mg tablet 100 mg PO DAILY 90 Days Qty: 90 2RF gabapentin 300 mg capsule 300 mg PO BEDTIME PRN (Reason: Pain) 30 Days Qty: 30 3RF Dupixent Pen 300 mg/2 mL pen injector 300 mg subcut Q2W 28 Days Qty: 4 12RF albuterol sulfate [Ventolin HFA] 90 mcg/actuation HFA aerosol inhaler 2 puff PO Q6H PRN (Reason: for dyspnea) Qty: 18 6RF sucralfate [Carafate] 100 mg/mL suspension 10 ml PO BEDTIME Qty: 420 3RF Rx Instructions: Please take it at bedtime cholecalciferol (vitamin D3) 50 mcg (2,000 unit) capsule 100 mcg PO DAILY 90 Days Qty: 180 2RF levothyroxine [Synthroid] 200 mcg tablet 200 mcg PO DAILY Qty: 30 5RF Spiriva Respimat 2.5 mcg/actuation mist 2 puff PO DAILY PRN (Reason: Shortness Of Breath) omeprazole 40 mg capsule,delayed release(DR/EC) 40 mg PO BEDTIME nystatin 100,000 unit/mL suspension 5 ml PO DAILY PRN (Reason: thrush) 30 Days Qty: 200 6RF Rx Instructions: administer 1/2 of dose in each side of the mouth. SWISH AND SPIT metformin 500 mg tablet extended release 24 hr 500 mg PO DAILY 90 Days Qty: 90 2RF Hold Instructions: Doctor's Order montelukast 10 mg tablet 10 mg PO BEDTIME 90 Days Qty: 90 2RF atorvastatin 40 mg tablet 40 mg PO BEDTIME 90 Days Qty: 90 3RF carvedilol 3.125 mg tablet 3.125 mg PO BID 90 Days Qty: 180 2RF lisinopril 10 mg tablet 10 mg PO DAILY 90 Days Qty: 90 3RF clobazam 10 mg tablet 5 mg PO BID oxcarbazepine 600 mg tablet 600 mg PO BID bisacodyl [Dulcolax (bisacodyl)] 5 mg tablet,delayed release (DR/EC) 10 mg PO BEDTIME Qty: 180 4RF Diet: Advance to usual diet Activity on Discharge: As tolerated Stand Alone Forms: Patient Portal Discharge page Print Language: Citizen Of [place] Care Plan Goals: seizure prevention Health Concerns: breakthrough seizure dysphagia Plan of Treatment: Trileptal dose has been increased to 900 mg twice daily as such an additional prescription for 300 mg twice daily is issued continue following prior seizure precautions including no driving. using the hot tub or swimming alone Assessment: see above
[2024-05-02 15:50] VITALS: BP 121/80
[2024-05-02 15:59] LABS: Glucose, Whole Blood 134 mg/dL (60-115)
[2024-05-02] MEDS: 0.9 % Sodium Chloride Flush 3 ML SYRINGE IVFLUSH (17:08)
== END 2024-05-02 19:04 | disposition home or self-care (01) | DRG 53 ==
LOC: HO.ED 10:05 → HO.EDOVER 15:38 → HO.IMC 19:09
PROVIDERS: Admitting Provider Physician Assistant; Emergency Provider Emergency Medicine; PCP Physician Assistant; Visit Provider Internal Medicine
DX: G40.909 Epilepsy, unspecified, not intractable, without status epilepticus (principal); J69.0 Pneumonitis due to inhalation of food and vomit; I51.81 Takotsubo syndrome; E89.0 Postprocedural hypothyroidism; G47.33 Obstructive sleep apnea (adult) (pediatric); I10 Essential (primary) hypertension; E11.9 Type 2 diabetes mellitus without complications; J45.50 Severe persistent asthma, uncomplicated; R13.10 Dysphagia, unspecified; Z85.850 Personal history of malignant neoplasm of thyroid; Z79.82 Long term (current) use of aspirin; Z79.84 Long term (current) use of oral hypoglycemic drugs; Z79.899 Other long term (current) drug therapy
CPT/HCPCS: 36415; 70450; 71250; 72125; 73610; 73630; 74230; 80048; 80076; 80307; 81001; 81003; 82803; 82947; 83605; 83690; 83735; 85025; 87040; 92610; 92611; 93005; 94640; 95816; 99285; J0295; J1650; J2060; J2270; J2405; J2543

== ENCOUNTER → 2024-04-30 07:04 | Outpatient (BNV) | payer OTHER, SELFPAY | PROVIDERS: Admitting Provider Physician Assistant; Emergency Provider Emergency Medicine; PCP Physician Assistant; Visit Provider Internal Medicine | DX: R56.9 Unspecified convulsions (principal); R94.31 Abnormal electrocardiogram [ECG] [EKG] | CPT/HCPCS: 93010 ==

== ENCOUNTER → 2024-04-30 15:25 | Outpatient (BNV) | payer OTHER, SELFPAY | PROVIDERS: Admitting Provider Physician Assistant; Emergency Provider Emergency Medicine; PCP Physician Assistant; Visit Provider Physician Assistant | DX: G40.909 Epilepsy, unspecified, not intractable, without status epilepticus (principal) | CPT/HCPCS: 99223; 99232; 99239; 99499 ==

== ENCOUNTER 2024-05-01 09:59 | Outpatient (BNV) | payer OTHER, SELFPAY | END 2024-05-02 08:22 | PROVIDERS: Admitting Provider Physician Assistant; Emergency Provider Emergency Medicine; PCP Physician Assistant; Visit Provider Physician Assistant Surgical | DX: R13.10 Dysphagia, unspecified (principal) | CPT/HCPCS: 74230 ==

== ENCOUNTER → 2024-05-01 09:59 | Outpatient (BNV) | payer OTHER, SELFPAY | PROVIDERS: Admitting Provider Physician Assistant; Emergency Provider Emergency Medicine; PCP Physician Assistant; Visit Provider Psychiatry & Neurology Neurology | DX: G40.909 Epilepsy, unspecified, not intractable, without status epilepticus (principal) | CPT/HCPCS: 99222 ==

== ENCOUNTER 2024-05-09 10:50 | Outpatient (AMB) | payer OTHER, SELFPAY ==
--- NOTE | 2024-05-09 11:02 | A.OFFVIS_ITS ---
Vital Signs 05/09/24 11:04 Height 5 ft 5 in Weight 167 lb 8.821 oz BMI 27.9 BP 106/76 Blood Pressure Location Lt brachial Position Sitting Pulse 99 Pulse Source Pulse Oximeter Intake Visit Reasons: Thyroid nodule/CONFIRMED Intake Note: Patient present today for Thyroid nodule office visit. Data Quality Consultant Required: No Accompanied by: Self / Same As Patient Allergies cat dander [CATS] Allergy (Mild, Verified 05/09/24 11:05) GENERALIZED ALLERGY SYMPTOMS dog dander [DOGS] Allergy (Mild, Verified 05/09/24 11:05) GENERALIZED ALLERGY SYMPTOMS tree and shrub pollen [TREE] Allergy (Mild, Verified 05/09/24 11:05) GENERALIZED ALLERGY SYMPTOMS FROM [place] Medication List - Last Reconciled 05/09/24 by Racquel Salazar MD aspirin 81 mg PO DAILY 90 days atorvastatin 40 mg PO BEDTIME 90 days bisacodyl (Dulcolax (bisacodyl)) 10 mg (2 x 5 mg) PO BEDTIME Carafate (sucralfate) 10 mL PO BEDTIME NS carvedilol 3.125 mg PO BID 90 days cholecalciferol (vitamin D3) 100 mcg (2 x 50 mcg (2,000 unit)) PO DAILY 90 days clobazam 5 mg PO BID dupilumab (Dupixent) 300 mg (2 mL) subcut Q2W 28 days gabapentin 300 mg PO BEDTIME PRN 30 days lisinopril 10 mg PO DAILY 90 days metformin ER 500 mg PO DAILY 90 days montelukast 10 mg PO BEDTIME 90 days nystatin 5 mL PO DAILY PRN 30 days omeprazole 40 mg PO BEDTIME oxcarbazepine (Trileptal) 300 mg PO BID oxcarbazepine 600 mg PO BID sertraline 100 mg PO DAILY 90 days [Sharps container As directed] Synthroid (levothyroxine) 200 mcg PO DAILY NS theophylline ER 200 mg (1/2 x 400 mg) PO DAILY tiotropium bromide 2.5 mcg/actuation (Spiriva Respimat) 2 puffs PO DAILY PRN Ventolin HFA 90 mcg/actuation (albuterol sulfate) 2 puffs PO Q6H PRN NS HPI Comments Details: 43-year-old male with past medical history of seizure disorder, who is seen today for follow up of 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 JAMIR indeterminate response to therapy History of PTC in detail 11/06/2020: Diagnosed with multinodular thyroid 06/16/2021: FNA of right midpole 1.2 cm thyroid nodule with cytology revealing atypia of undetermined significance ([place] category 3). Afirma was suspicious, and an HRAS mutation was present with a 75% risk of malignancy 11/21/2021: Underwent total thyroidectomy with Dr. Yunior Carlos, pathology revealed classic PTC, multifocal with 3 foci (right upper 1.1 cm, right mid of 0.5 cm and left mid 0.6 cm). No angioinvasion, no lymphatic invasion, no mg neural invasion. Margins were negative. 0/3 lymph nodes examined positive for Mets. Calcified as AJCC stage I, pT1b N0. JAMIR low risk of recurrence. 02/2022: Opted for I 131 ablation which was to be completed via Thyrogen stimulation. However unfortunately after receiving his 1st dose of Thyrogen, he developed chest pressure and was hospitalized for cardiac concerns. Cardiac workup was negative but during the hospitalization he had multiple seizures. Labs 03/15/2022 showed TSH 50.8, TG 0.6, TG antibody less than 1 11/22/2022: Ultrasound head and neck: Identified multiple right neck lymph nodes at level 2 and 4 with normal architecture, with right level 2 lymph node measuring up to 2.1 cm. Left neck level 2 and level 4 lymph node also identified with normal architecture measuring up to 2.1 cm in level 2. 04/23/2023: TSH 49.3, no thyroglobulin done, unclear last TSH was so high, does not seem like Thyrogen was administered, patient does not remember but maybe he was not on levothyroxine during this time 10/01/2023: TSH 69.2, TG 4.6, TG antibody less than 1, I do not see a whole-body scan system, likely thyroid hormone withdrawal Laboratory Tests 02/13/23 05/11/23 10/01/23 07:03 06:15 06:37 TSH 0.07 L 55.33 H Free T4 1.87 H 1.19 Thyroglobulin 0.5 H 0.2 H Thyroglobulin Antibody <1 <1 10/01/23 01/08/24 04/14/24 06:37 06:29 07:06 TSH 69.20 H 1.51 0.11 L Free T4 1.08 0.96 Thyroglobulin 4.6 H Thyroglobulin Antibody <1 Never smoker No family history of thyroid cancer No history of head or neck radiation Currently continues with difficulty swallowing, thats has been longstanding. No voice chnages . Has intermittent palpitations not too bothersome. Has tremors associate dwith seizures but not at rest. He continues with having hospitalizations for repeated seizures. Continues on levothyroxine 200 mcg daily, taking it appropriately. Doesnt use portal though signed up. Review of systems Constitutional: no fevers, chills or weight loss HEENT: no changes in vision Cardiac: No chest pain, discomfort or palpitations. Pulmonary: No SOB GI:No abdominal pain, no nausea or vomiting, no anorexia, no blood in stool : no burning micturition, dysuria or increase in urinary frequency Physical exam General: sitting comfortably in bed in no acute distress HEENT: normocephalic/atraumatic, moist oral mucosa Neck: supple, symmetrical, no thyromegaly , no dorsocervical or supraclavicular fat pads Cardiac: normal heart sounds Pulm: normal breath sounds B/L, no added breath sounds Abd: not distended, no tenderness Extremities: no edema, no signs of myxedema [facility] Medical History Uvulitis Claustrophobia Takotsubo cardiomyopathy Schatzki's ring Gastritis Sleep apnea Diabetes Gastroparesis Migraine headache with aura Enlarged liver Postoperative hypothyroidism Thyroid cancer Vitamin D deficiency Multinodular thyroid Seizures ABPA (allergic bronchopulmonary aspergillosis) Myocardial infarct Seizures Asthma Surgical History S/P total thyroidectomy History of esophagogastroduodenoscopy (EGD) S/P removal of thyroid nodule History of cholecystectomy Family History Maternal Grandmother Emphysema, unspecified Father Diabetes Mother No problems noted. Paternal Grandfather Liver cancer Colon cancer Social History Household Members: Family Housing: Apartment Are you a primary healthcare administrative assistant to a significant other at home: No Do you presently have visiting nurse or other home services: No Alcohol intake: former Comment: has poor balance Patient Tobacco Use Status: Never used Tobacco e-Cigarette/Vaping Use: Never Used Second Hand Smoke Exposure: No Substance Use Type: Marijuana Advance Directives Date on File: 05/20/23 service: No Current occupational status: disabled Current occupation: rt handed Cognitive needs: No Hearing needs: No Vision needs: No Physical Exam Vital Signs: Last Vital Signs Pulse 99 05/09/24 11:04 BP 106/76 05/09/24 11:04 BMI result Body Mass Index 27.9 Results Reviewed Results Reviewed: Laboratory Tests 01/11/21 01/11/21 12/06/21 06:45 06:45 06:32 TSH 1.13 1.18 11.81 H Free T4 1.06 0.95 Thyroglobulin Thyroglobulin Antibody 12/06/21 01/18/22 01/19/22 06:32 06:22 10:00 TSH 13.96 H 1.46 1.23 Free T4 1.15 Thyroglobulin <0.1 L Thyroglobulin Antibody 03/15/22 07/27/22 11/27/22 06:07 06:24 07:32 TSH 50.80 H 0.45 0.05 L Free T4 1.16 1.52 1.31 Thyroglobulin 0.6 L <0.1 L Thyroglobulin Antibody <1 <1 02/13/23 04/23/23 05/11/23 07:03 06:27 06:15 TSH 11.83 H 49.31 H 0.07 L Free T4 1.14 0.83 1.87 H Thyroglobulin 0.5 H 0.2 H Thyroglobulin Antibody <1 <1 10/01/23 10/01/23 01/08/24 06:37 06:37 06:29 TSH 55.33 H 69.20 H 1.51 Free T4 1.19 1.08 Thyroglobulin 4.6 H Thyroglobulin Antibody <1 04/14/24 07:06 TSH 0.11 L Free T4 0.96 Thyroglobulin Thyroglobulin Antibody Assessment & Plan Assessment & Plan (1) Thyroid cancer: Code(s): C73 - Malignant neoplasm of thyroid gland Category: Medical Plan: 43-year-old male with past medical history of seizure disorder, who is seen today for follow up of 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 JAMIR low risk of recurrence based on no angioinvasion, no lymphatic invasion, negative margins, 0/3 lymph nodes examined. Subsequently patient has not received CALLEJAS therapy given poor reaction to Thyrogen. Since he was unable to tolerate Thyrogen, it was mutually decided between him and his past physicians that we will follow him up with surveillance ultrasounds and thyroglobulin markers to monitor for recurrence. His most recent ultrasound was from November of 2022 which showed multiple lymph nodes, though none suspicious appearing, he has not had repeat ultrasound since then. He continues to struggle with his health with regards to his seizure disorder with multiple hospitalizations. Since his stimulated thyroglobulin postoperatively was 0.6, this was very reassuring for being JAMIR low risk of recurrence as well. His unstimulated thyroglobulin subsequently has remained in the range of 0.2- 0.5, and his labs from October 10 show stimulated thyroglobulin of 4.6 when his TSH was 69.2, classifying him as JAMIR indeterminate response to therapy. In indeterminate response, 15% to 20% we will have structural disease identified during follow-up, however in the remainder of the nonspecific changes are either stable or resolved, less than 1% have disease specific We can consider doing a whole-body scan but that would involve levothyroxine withdrawal, which might have severe adverse effects for him. Especially given that seizures get provoked easily. For now I will obtain a neck ultrasound to monitor findings structural recurrence. We will also repeat his thyroglobulin tumor markers. His TSH goal would be 0.1-0.5. Most recent labs from 04/14/2024 showed TSH of 0.11 which is within target. Hence we will continue levothyroxine 200 mcg daily. Plan: -ordered neck ultrasound -ordered TSH, free T4, thyroglobulin markers -goal TSH 0.1-0.5 -follow up in 3 months (2) Hypothyroidism: Code(s): E03.9 - Hypothyroidism, unspecified Category: Medical Qualifiers: Hypothyroidism type: postoperative Qualified Code(s): E89.0 - Postprocedural hypothyroidism Plan: His TSH goal would be 0.1-0.5. Most recent labs from 04/14/2024 showed TSH of 0.11 which is within target. Hence we will continue levothyroxine 200 mcg daily. Plan: -continue levothyroxine 200 mcg daily -goal TSH 0.1-0.5 Plan I spent 45 minutes in reviewing the record, seeing the patient and documenting in the medical record. Orders: Orders US soft tiss head and/or neck Today C73 - Malignant neoplasm of thyroid gland Thyroid Stimulating Hormone Today C73 - Malignant neoplasm of thyroid gland Thyroglobulin Today C73 - Malignant neoplasm of thyroid gland Thyroglobulin Antibodies Today C73 - Malignant neoplasm of thyroid gland Thyroglobulin Tumor Marker Today C73 - Malignant neoplasm of thyroid gland Free T4 (Free Thyroxine) Today C73 - Malignant neoplasm of thyroid gland Patient Instructions: Do blood work Do neck ultrasound Follow up in 3 months continue levothyroxine as it is Coding Level of Care Code Est Pt Level 5 (49739) Complex EM visit Add On G2211 Diagnoses Thyroid cancer C73 Postoperative hypothyroidism E89.0 Hypothyroidism type: postoperative Time Spent (min) 45
[2024-05-09 11:04] VITALS: BP 106/76; PULSE 99; BMI 27.9
== END 2024-05-09 11:55 | disposition home or self-care (01) ==
PROVIDERS: PCP Physician Assistant; Visit Provider Student in an Organized Health Care Education/Training Program
DX: C73 Malignant neoplasm of thyroid gland (principal); E89.0 Postprocedural hypothyroidism
CPT/HCPCS: 99215; G2211

== ENCOUNTER 2024-05-09 10:50 | Outpatient (REF) | payer OTHER, SELFPAY ==
[2024-05-09 14:50] LABS: Hematocrit 42.6 % (42.0-52.0); Hemoglobin 14.5 g/dl (14.0-18.0); Mean Corpuscular Volume 85.2 fL (80.0-98.0); Mean Platelet Volume 8.9 fL (9.4-12.4); Platelet Count 353 X10*3/uL (160-400); Red Cell Distribution Width 13.8 % (11.0-16.0); White Blood Count 8.3 X10*3/uL (4.8-10.8)
[2024-05-09 15:19] LABS: Anion Gap 17 (12-20); Blood Urea Nitrogen 9 mg/dL (9-16); Calcium 9.6 mg/dL (8.4-10.2); Carbon Dioxide 24 mmol/L (22-29); Chloride 103 mmol/L (96-108); Estimated Glomerular Filt Rate > 60; Glucose Random 164 mg/dL (60-115); Potassium 3.8 mmol/L (3.3-5.1); Sodium 140 mmol/L (135-145)
[2024-05-09 15:31] LABS: Free T4 (Free Thyroxine) 0.88 ng/dL (0.71-1.85); Thyroid Stimulating Hormone 2.62 uIU/mL (0.32-4.0)
[2024-05-13 03:39] LABS: Thyroglobulin Antibodies <1 IU/mL (< or = 1)
[2024-05-14 05:59] LABS: Thyroglobulin Antibody <1 IU/mL (<=1); Thyroglobulin Level 0.7 ng/mL
[2024-05-14 10:49] LABS: Thyroglobulin 0.7 ng/mL
== END 2024-05-09 10:51 | disposition home or self-care (01) ==
LOC: HO.LAB 10:50
PROVIDERS: PCP Physician Assistant; Visit Provider Student in an Organized Health Care Education/Training Program
DX: C73 Malignant neoplasm of thyroid gland (principal); K22.70 Barrett's esophagus without dysplasia; K29.30 Chronic superficial gastritis without bleeding; E89.0 Postprocedural hypothyroidism
CPT/HCPCS: 36415; 80048; 84432; 84439; 84443; 85027; 86800; 99212

== ENCOUNTER 2024-05-09 14:39 | Outpatient (AMB) | payer OTHER, SELFPAY ==
[2024-05-09 14:54] VITALS: BP 122/84; PULSE 100; O2SAT 94; BMI 27.8
--- NOTE | 2024-05-09 14:54 | MHC.PC.OV ---
Vital Signs 05/09/24 14:54 Height 5 ft 5 in Weight 167 lb BMI 27.8 BP 122/84 Blood Pressure Location Lt brachial Position Sitting Pulse 100 Pulse Source Pulse Oximeter Pulse Oximetry (%) 94 Oxygen Delivery Method Room Air Intake Visit Reasons: [facility] 05/02 seizures/ammonia in the lungs Ciaio Counter Molder Required: No Accompanied by: Self / Same As Patient Allergies cat dander [CATS] Allergy (Mild, Verified 05/09/24 14:56) GENERALIZED ALLERGY SYMPTOMS dog dander [DOGS] Allergy (Mild, Verified 05/09/24 14:56) GENERALIZED ALLERGY SYMPTOMS tree and shrub pollen [TREE] Allergy (Mild, Verified 05/09/24 14:56) GENERALIZED ALLERGY SYMPTOMS FROM [place] Medication List - Last Reconciled 05/09/24 by Jessica Cr PA-C aspirin 81 mg PO DAILY 90 days atorvastatin 40 mg PO BEDTIME 90 days bisacodyl (Dulcolax (bisacodyl)) 10 mg (2 x 5 mg) PO BEDTIME Carafate (sucralfate) 10 mL PO BEDTIME NS carvedilol 3.125 mg PO BID 90 days cholecalciferol (vitamin D3) 100 mcg (2 x 50 mcg (2,000 unit)) PO DAILY 90 days clobazam 5 mg PO BID dupilumab (Dupixent) 300 mg (2 mL) subcut Q2W 28 days gabapentin 300 mg PO BEDTIME PRN 30 days lisinopril 10 mg PO DAILY 90 days metformin ER 500 mg PO DAILY 90 days montelukast 10 mg PO BEDTIME 90 days nystatin 5 mL PO DAILY PRN 30 days omeprazole 40 mg PO BEDTIME oxcarbazepine (Trileptal) 300 mg PO BID oxcarbazepine 600 mg PO BID sertraline 100 mg PO DAILY 90 days [Sharps container As directed] Synthroid (levothyroxine) 200 mcg PO DAILY NS theophylline ER 200 mg (1/2 x 400 mg) PO DAILY tiotropium bromide 2.5 mcg/actuation (Spiriva Respimat) 2 puffs PO DAILY PRN Ventolin HFA 90 mcg/actuation (albuterol sulfate) 2 puffs PO Q6H PRN NS Tobacco use date assessed: 12/11/23 Dental Screening Dental Screen Date: 12/11/23 HPI [facility] 05/02 seizures/ammonia in the lungs HPI Details 43 year-old male here today for a follow up visit. Patient has a past medical history significant for seizure disorder, moderate persistent asthma, depression and anxiety, thyroid cancer status post thyroidectomy. Review of the notes, patient was seen [facility] ED 04/30/2024 following a breakthrough seizure. Head CT and cervical CT negative for acute abnormality. He was treated with IV Ativan in the ED and consult with Neurology who recommended EEG and increasing Trileptal from 600-900 mg twice daily. EEG showed frontal activity and treated for aspiration pneumonia with IV Unasyn changed to Augmentin for total 5 days. Patient mentions he is having increased side effects due to the change in his medications and has been having fatigue and sluggishness. He did discuss this with Neurology who recommended staying with that dose until his next appointment on Sunday. He continues to have mild dysphagia which was addressed in the hospital with a barium swallow which was within normal limits. Distal continue to have some stomach discomfort with certain foods which has improved since the hospital. He was seen at [facility] on Sunday and had a negative chest x-ray for increased phlegm production. He continues to have phlegm production but has improved and denies fevers or cough. [facility] Medical History Uvulitis Claustrophobia Takotsubo cardiomyopathy Schatzki's ring Gastritis Sleep apnea Diabetes Gastroparesis Migraine headache with aura Enlarged liver Postoperative hypothyroidism Thyroid cancer Vitamin D deficiency Multinodular thyroid Seizures ABPA (allergic bronchopulmonary aspergillosis) Myocardial infarct Seizures Asthma Surgical History S/P total thyroidectomy History of esophagogastroduodenoscopy (EGD) S/P removal of thyroid nodule History of cholecystectomy Family History Maternal Grandmother Emphysema, unspecified Father Diabetes Mother No problems noted. Paternal Grandfather Liver cancer Colon cancer Social History Household Members: Family Housing: Apartment Are you a primary care professional to a significant other at home: No Do you presently have visiting nurse or other home services: No Alcohol intake: former Comment: has poor balance Patient Tobacco Use Status: Never used Tobacco e-Cigarette/Vaping Use: Never Used Second Hand Smoke Exposure: No Substance Use Type: Marijuana Advance Directives Date on File: 05/20/23 service: No Current occupational status: disabled Current occupation: rt handed Cognitive needs: No Hearing needs: No Vision needs: No Questionnaire PHQ-9 Over the last 2 weeks, how often have you been bothered by any of the following problems? 1. Little interest or pleasure in doing things: several days 2. Feeling down, depressed, or hopeless: several days 3. Trouble falling or staying asleep, or sleeping too much: nearly every day 4. Feeling tired or having little energy: nearly every day 5. Poor appetite or overeating: nearly every day 6. Feeling bad about yourself - or that you are a failure or have let yourself or your family down: more than half the days 7. Trouble concentrating on things, such as reading the newspaper or watching television: nearly every day 8. Moving or speaking so slowly that other people could have noticed. Or the opposite - being so fidgety or restless that you have been moving around a lot more than usual: more than half the days 9. Thoughts that you would be better off or of hurting yourself in some way: not at all Total score: 18 Depression Screening Interpretation: Positive Depression Screening Follow-up: Existing condition and In treatment Depression Screening Done: Yes 35937 - PHQ-9 Billing: Yes Source: Developed by Drs. Ramses Nguyen, Debi Russ, Colin Rowell and colleagues, with an educational javy from [employer]. Thrive Questionnaire Date Thrive assessed: 05/01/24 AUDIT C Alcohol Use Questionnaire (AUDIT-C) 1. How often do you have a drink containing alcohol?: Never 3. How often do you have six or more drinks on one occasion?: Never Total Score: 0 MOOSE-7 AMB Questionnaire MOOSE-7 Date MOOSE - 7 assessed: 12/11/23 Source: Developed by Drs. Ramses Nguyen, Debi Russ, Colin Rowell and colleagues, with an educational javy from [employer]. Review of Systems Const Denies body aches, Denies chills, Reports fatigue, Denies fever(s), Denies headache(s) and Denies poor appetite Eyes Reports no additional complaints ENT Reports dysphagia (Improved since hospital), Denies dizziness, Denies headache(s) and Denies odynophagia Card Denies chest pain, Denies syncope, Denies edema, Denies irregular heart rhythm and Denies lightheadedness Resp Details: Denies cough but does have shortness of breath since discontinuing inhaler GI Denies abdominal pain, Denies constipation, Reports dysphagia (Improved since hospital), Denies diarrhea, Denies nausea, Denies odynophagia and Denies vomiting Reports no additional complaints Musc Reports no additional complaints and Denies abnormal gait Skin/Breast Reports system reviewed and no additional complaints, except as documented Neuro Denies abnormal gait, Denies dizziness, Denies syncope and Denies headache(s) Psych Reports no additional complaints Endo Reports fatigue Physical exam (Primary Care) Vital Signs: Last Vital Signs Pulse 100 05/09/24 14:54 BP 122/84 05/09/24 14:54 Pulse Ox 94 05/09/24 14:54 Oxygen Delivery Method Room Air 05/09/24 14:54 BMI result Body Mass Index 27.8 Tobacco/Smoking Status: Tobacco use Status Tobacco use date assessed 12/11/23 05/09/24 14:54 Patient Tobacco Use Status Never used Tobacco 05/09/24 14:54 Tobacco use type 05/01/24 14:11 e-Cigarette/Vaping Use Never Used 05/09/24 14:54 PHQ-9: PHQ-9 Score PHQ-9: Total score 18 05/09/24 15:19 Depression Screening Interpretation: Positive Depression Screening Follow-up: Existing condition and In treatment Thrive Assessment: Date of Thrive Assessment Date Thrive assessed 05/01/24 05/09/24 14:54 Const General: cooperative, healthy appearing, comfortable and no acute distress Orientation/consciousness: patient oriented x3 HENMT Head: Yes normocephalic Ears: hearing grossly normal bilaterally General nose exam: Normal external nose present Eyes General: appearance normal, both eyes and all related structures Conjunctivae: conjunctivae normal Neck Neck: Yes full ROM and Yes no lymphadenopathy Resp Effort & Inspection: normal respiratory effort Auscultation: no crackles, no rales, no rhonchi, wheezes right upper, breath sounds present and lung sounds not diminished Cardio Rate: regular rate Rhythm: regular rhythm GI Palpation (GI): Soft to palpation, not firm, nontender, no guarding and not rigid Skin General skin exam: no rashes or lesions noted Neuro General: patient oriented x3 Gait exam (Neuro): Normal gait present Extrem General: Yes normal to inspection, Yes full ROM and No edema Psych Affect: normal affect Attitude: cooperative Insight: Good insight present (Psych) Judgement: Good judgement present (Psych) Assessment and Plan Assessment & Plan (1) Aspiration pneumonia: Code(s): J69.0 - Pneumonitis due to inhalation of food and vomit Qualifiers: Aspiration pneumonia type: unspecified Laterality: bilateral Lung location: unspecified part of lung Qualified Code(s): J69.0 - Pneumonitis due to inhalation of food and vomit Plan: Patient continues to have shortness of breath without cough or fever. Per last pulmonology note patient was on 4 inhalers and now is only on 2 inhalers. Possibility the Symbicort was discontinued due to affect on seizure disorder. Advised patient to follow up with pulmonology as soon as possible for further management. Chest x-ray negative on Sunday and declined additional chest x-ray. (2) Epileptic seizure: Code(s): G40.909 - Epilepsy, unspecified, not intractable, without status epilepticus Plan: Patient is dose Trileptal increased after last hospitalization and has been having side effects. Discussed with neurology who recommended patient stay on the current dose until his next appointment next Sunday. Continue to follow up with Neurology. (3) Barretts esophagus: Code(s): K22.70 - Ramirez's esophagus without dysplasia Qualifiers: Ramirez's esophagus type: without dysplasia Qualified Code(s): K22.70 - Ramirez's esophagus without dysplasia Plan: Patient having strange sensation that is difficult to describe while swallowing. No painful or difficulty swallowing and barium swallow was normal during hospital admission. Advised to follow up with GI for possible endoscopy. Plan This note was constructed using voice recognition software. While every effort has been made to ensure accuracy and airport refueling handler, still areas may have been included sometimes these areas may affect the content or meeting of the given symptoms. Total time spent caring for the patient today was 30 minutes. This includes time spent before the visit reviewing the chart, time spent during the visit, and time spent after the visit and documentation. Coding Level of Care Code Est Pt Level 4 (00015) Diagnoses Aspiration pneumonia J69.0 Aspiration pneumonia type: unspecified Laterality: bilateral Lung location: unspecified part of lung Epileptic seizure G40.909 Ramirez's esophagus without dysplasia K22.70 Ramirez's esophagus type: without dysplasia
== END 2024-05-09 16:04 | disposition home or self-care (01) ==
PROVIDERS: PCP Physician Assistant
DX: J69.0 Pneumonitis due to inhalation of food and vomit (principal); G40.909 Epilepsy, unspecified, not intractable, without status epilepticus; K22.70 Barrett's esophagus without dysplasia
CPT/HCPCS: 99214

== ENCOUNTER 2024-05-15 12:50 | Outpatient (REF) | payer OTHER, SELFPAY ==
--- NOTE | ~2024-05-15 | US_ITS ---
EXAMINATION: US SOFT TISSUE OF THE NECK CLINICAL INFORMATION: Malignant neoplasm of thyroid gland. Status post thyroidectomy. COMPARISON: None available. TECHNIQUE: Linear transducer grayscale and color Doppler examination of the thyroid bed and surrounding soft tissue. FINDINGS: Redemonstration of bilateral cervical lymph nodes. Right cervical lymph nodes: Level 2 measuring 1.5 and 0.5 x 1.9 cm, previously measured 2.1 x 0.7 x 1.8 cm. Normal in morphology. Level 3 measuring 9 x 4 x 5 mm, previously measured 9 x 4 x 7 mm. Normal in morphology. Level VA measuring 8 x 6 x 5 mm, not seen on prior study. Normal in morphology. Left cervical lymph nodes: Level 3:7 x 2 x 6 mm, no definite fatty hilum. Level 4:10 x 5 x 4 mm, normal in morphology. US/US soft tiss head and/or neck IMPRESSION: Redemonstration of bilateral cervical lymph nodes, none of which are pathologically enlarged. There is a left level 3 lymph node measuring 7 x 2 x 6 mm, no definite fatty hilum. Recommend management pharmacologic protocol. Electronically signed by: Yvonne Mejia MD 05/20/2024 02:58 PM EDT
== END 2024-05-15 12:51 | disposition home or self-care (01) ==
LOC: HO.US 12:50
PROVIDERS: PCP Physician Assistant; Visit Provider Student in an Organized Health Care Education/Training Program
DX: C73 Malignant neoplasm of thyroid gland (principal)
CPT/HCPCS: 76536

== ENCOUNTER 2024-06-11 10:47 | Outpatient (AMB) | payer OTHER, SELFPAY ==
[2024-06-11 10:57] VITALS: BP 136/80; PULSE 89; O2SAT 98; BMI 27.6
--- NOTE | 2024-06-11 10:57 | A.OFFPC_ITS ---
Vital Signs 06/11/24 10:57 Height 5 ft 5 in Weight 166 lb BMI 27.6 BP 136/80 Blood Pressure Location Lt brachial Position Sitting Pulse 89 Pulse Source Pulse Oximeter Pulse Oximetry (%) 98 Oxygen Delivery Method Room Air Intake Visit Reasons: 3 Month F/U Performance Management Consultant Required: No Accompanied by: Self / Same As Patient Allergies cat dander [CATS] Allergy (Mild, Verified 06/13/24 06:18) GENERALIZED ALLERGY SYMPTOMS dog dander [DOGS] Allergy (Mild, Verified 06/13/24 06:18) GENERALIZED ALLERGY SYMPTOMS tree and shrub pollen [TREE] Allergy (Mild, Verified 06/13/24 06:18) GENERALIZED ALLERGY SYMPTOMS FROM PINE TREES divalproex sodium Adverse Reaction (Intermediate, Verified 06/13/24 06:18) Confusion levetiracetam [From Keppra] Adverse Reaction (Intermediate, Verified 06/13/24 06:18) Confusion Medication List - Last Reconciled 06/11/24 by Saúl Maier PA-C aspirin 81 mg PO DAILY 90 days atorvastatin 40 mg PO BEDTIME 90 days bisacodyl (Dulcolax (bisacodyl)) 10 mg (2 x 5 mg) PO BEDTIME Carafate (sucralfate) 10 mL PO BEDTIME NS carvedilol 3.125 mg PO BID 90 days cholecalciferol (vitamin D3) 100 mcg (2 x 50 mcg (2,000 unit)) PO DAILY 90 days clobazam 5 mg PO BID dupilumab (Dupixent) 300 mg (2 mL) subcut Q2W 28 days gabapentin 300 mg PO BEDTIME PRN 30 days hydroxyzine HCl 25 mg PO BEDTIME lisinopril 10 mg PO DAILY 90 days metformin ER 500 mg PO DAILY 90 days montelukast 10 mg PO BEDTIME 90 days nystatin 5 mL PO DAILY PRN 30 days omeprazole 40 mg PO BEDTIME oxcarbazepine (Trileptal) 300 mg PO BID oxcarbazepine 600 mg PO BID sertraline 100 mg PO DAILY 90 days [Sharps container As directed] Synthroid (levothyroxine) 25 mcg PO DAILY NS Synthroid (levothyroxine) 200 mcg PO DAILY NS theophylline ER 200 mg (1/2 x 400 mg) PO DAILY tiotropium bromide 2.5 mcg/actuation (Spiriva Respimat) 2 puffs PO DAILY PRN Ventolin HFA 90 mcg/actuation (albuterol sulfate) 2 puffs PO Q6H PRN NS Tobacco use date assessed: 12/11/23 Dental Screening Dental Screen Date: 12/11/23 HPI 3 Month F/U HPI Details risa is 43y ear-old male here today for a follow up visit. ?Patient? has a past medical history significant for seizure disorder, moderate persistent? asthma, depression and anxiety, thyroid cancer status post thyroidectomy. Recently admitted to [facility] acute seizure which had led to an aspiration pneumonia. He was treated with IV antibiotics for the aspiration pneumonia. While in hospital a swallowing eval done showing no aspiration. Neurology also evaluated did EEG that did show some frontal epileptic activity. His seizure medication was increased in dose. Unfortunately has intolerable side effects (lethargy, memory issues) due to the increased dose of TRileptal ( 900mg BID). He is currently working with a social media analyst who is trying to get him a new neurologist to make new recommendations on his seizure medication as he is having breakthrough seizures. .. GERD/dysphagia: Does report having worsening GERD like symptoms and chronic throat congestion. He will be following up with Gastroenterology about this. CHRONIC MEDICAL CONDITIONS .. Type 2 diabetes: Most recent A1c is 6.6.. Has not been taking metformin over last few months as he has not received from pharmacy. Will restart metformin 500 extended release.. He does admit to dietary indiscretion as a side effect his seizure medications. History of?thyroid cancer: Now followed by a thyroid cancer speacilist at [facility] and now getting workup. He is status post total thyroidectomy. Continues on levothyroxine indefinitely. Most recent TSH has been stable. Continues on dose levothyroxine at 200 mcg. He has followed up with a endocrinology thyroid specialist in [place] whom will be further working him up. He did have a neck MRI he is awaiting results on. ?.. ? Anxiety: Patient he is? seeing therapist (Junito) at [facility]. Patient continues? on Zoloft .. History of cardiomyopathy:? Patient has a history of dilated cardiomyopathy.? No has establish care with a new pattern worker whom recommends getting a cardiac stress test though has not been covered by insurance. Does have chest pain and has a history of the cardiomyopathy. Would not be able to do Elijah protocol stress test as he does have severe asthma. ? Has been on moderate dose statin and most recent lipid panel showing elevated total cholesterol and LDL. Of note aspirin has been held due to his history of upper GI bleed due to Ramirez's esophagus?.. ?Moderate persistent asthma:? Followed by Pulmonology. REcent PFT - showing modererate asthma vs COPD. He does continue on Dupixent which has really helped control his asthma symptoms. He reports as of late his wheezing has been more evident and he attributes this to the changes in weather. [facility] Medical History Uvulitis Claustrophobia Takotsubo cardiomyopathy Schatzki's ring Gastritis Sleep apnea Diabetes Gastroparesis Migraine headache with aura Enlarged liver Postoperative hypothyroidism Thyroid cancer Vitamin D deficiency Multinodular thyroid Seizures ABPA (allergic bronchopulmonary aspergillosis) Myocardial infarct Seizures Asthma Surgical History S/P total thyroidectomy History of esophagogastroduodenoscopy (EGD) S/P removal of thyroid nodule History of cholecystectomy Family History Maternal Grandmother Emphysema, unspecified Father Diabetes Mother No problems noted. Paternal Grandfather Liver cancer Colon cancer Social History Household Members: Family Housing: Apartment Are you a primary nursing care partner to a significant other at home: No Do you presently have visiting nurse or other home services: No Alcohol intake: former Comment: has poor balance Patient Tobacco Use Status: Never used Tobacco Smoked in Last 30 Days: No e-Cigarette/Vaping Use: Never Used Second Hand Smoke Exposure: No Substance Use Type: Marijuana Advance Directives: Yes Advance Directives Information Provided: Yes Advance Directives on File: No Advance Directives Date on File: 05/20/23 Do you have a plan to hurt others: No Plan service: No Current occupational status: disabled Current occupation: rt handed Cognitive needs: No Hearing needs: No Vision needs: No Questionnaire Thrive Questionnaire Date Thrive assessed: 05/01/24 Are you currently unemployed and looking for a job?: I choose not to answer this question MOOSE-7 AMB Questionnaire MOOSE-7 Date MOOSE - 7 assessed: 12/11/23 Source: Developed by Drs. Ramses Nguyen, Debi Russ, Colin Rowell and colleagues, with an educational javy from [employer]. Review of Systems Const Denies headache(s) Eyes Denies loss of vision ENT Denies vertigo, Denies dizziness, Denies headache(s) and Denies sore throat Card Denies chest pain, Denies leg edema and Denies lightheadedness Resp Denies cough, Denies hemoptysis and Denies wheezing GI Denies abdominal pain, Denies melena, Denies constipation, Denies diarrhea and Denies vomiting Denies dysuria, Denies urinary frequency and Denies urinary urgency Musc Denies arthralgias, Denies joint swelling, Denies numbness and Denies tingling Neuro Denies Abnormal speech present, Denies behavioral changes, Reports confusion, Denies vertigo, Denies dizziness, Denies headache(s), Denies loss of vision, Reports memory loss, Denies numbness, Reports convulsions, Reports seizure-like activity and Denies tingling Psych Denies anxiety, Denies behavioral changes, Reports confusion, Denies depression, Reports memory loss and Denies panic attacks Nico/Lymph Denies easy bleeding and Denies easy bruising Aller/Immun Denies wheezing Physical exam (Primary Care) Vital Signs: Last Vital Signs Pulse 89 06/11/24 10:57 BP 136/80 06/11/24 10:57 Pulse Ox 98 06/11/24 10:57 Oxygen Delivery Method Room Air 06/11/24 10:57 BMI result Body Mass Index 27.6 Tobacco/Smoking Status: Tobacco use Status Tobacco use date assessed 12/11/23 06/11/24 11:01 Patient Tobacco Use Status Never used Tobacco 06/11/24 11:01 Tobacco use type 05/01/24 14:11 e-Cigarette/Vaping Use Never Used 06/11/24 11:01 Thrive Assessment: Date of Thrive Assessment Date Thrive assessed 05/01/24 06/11/24 11:01 Const General: healthy appearing, no acute distress, alert, awake and confusion Nutritional Appearance: well nourished Orientation/consciousness: oriented to person, oriented to place, oriented to time and confusion HENMT Ears: TM's normal bilaterally General nose exam: Normal nasal mucous membranes and turbinates present Eyes Conjunctivae: conjunctivae normal Sclerae: sclerae normal Pupils: Equal, round and reactive pupils present Neck Neck: Yes no lymphadenopathy and Yes no JVD Thyroid: Thyroid normal Carotids: no bruits Resp Effort & Inspection: normal respiratory effort and not tachypneic Auscultation: no crackles, no rales, no rhonchi and no wheezes Cardio Rate: regular rate Rhythm: regular rhythm Heart sounds: no murmurs and normal S1 and S2 GI Palpation (GI): Soft to palpation, nontender, no hepatomegaly and no splenomegaly Auscultation: normal bowel sounds Skin General skin exam: no rashes or lesions noted and dry skin Neuro General: oriented to person, oriented to place, oriented to time and confusion Cranial nerves: Yes Equal, round and reactive pupils present Speech: No Abnormal speech present Gait exam (Neuro): Normal gait present Motor exam (neuro): no tremor noted Extrem Right upper extremity: full ROM Left upper extremity: full ROM Right lower extremity: full ROM; no edema Left lower extremity: full ROM; no edema Psych Mental Status: mental status grossly normal Speech and movement: Normal speech and movement present Affect: normal affect Attitude: cooperative Thought process: Normal thought process present Assessment and Plan Assessment & Plan (1) Seizure disorder: Code(s): G40.909 - Epilepsy, unspecified, not intractable, without status epilepticus Plan: Was on Oxycarbaspine and clobazam. Reports side effects of sweating. New medication seem to have been working, he can not recall any breakthrough seizures recently Did see a seizure specialist at [facility] and did a video EEG which did show epileptic activity and his seizure medications were change. Unfortunately having side effect to his new seizure medications that are pretty much intolerable to patient. . (2) Severe persistent allergic asthma: Code(s): J45.50 - Severe persistent asthma, uncomplicated Plan: Patient reports his asthma is been fairly well controlled with current maintenance inhalers , Dupixent and Singulair. He is followed by pulmonology. He reports he rarely has to use his nebulizer anymore. (3) DMII (diabetes mellitus, type 2): Code(s): E11.9 - Type 2 diabetes mellitus without complications Qualifiers: Diabetes mellitus complication status: with hyperglycemia Diabetes mellitus retirement insulin use: without retirement use Qualified Code(s): E11.65 - Type 2 diabetes mellitus with hyperglycemia Plan: Patient's A1c most recently at 6.6 , patient continues on metformin 500 extended release. Goal A1c is to remain below 7.0 (4) Cardiomyopathy: Code(s): I42.9 - Cardiomyopathy, unspecified Qualifiers: Cardiomyopathy type: stress-induced Qualified Code(s): I51.81 - Takotsubo syndrome Plan: PATIENT CONTINUES ON MODERATE POTENCY STATIN CARVEDILOL 3.1 MG B.I.D.. HAS NOT HAD ANY OVERT SIGNS OF CONGESTIVE HEART FAILURE. ASPIRIN HAS BEEN HELD DUE TO HIS EROSIVE ESOPHAGITIS AND HISTORY OF GI BLEED. (5) Chest pain: Code(s): R07.9 - Chest pain, unspecified Qualifiers: Chest pain type: precordial pain Qualified Code(s): R07.2 - Precordial pain Plan: Patient does report having some chest discomfort in the setting of all of the other medical illnesses including breakthrough seizures. His pattern worker would like to have him do a cardiac stress test though insurance has not been covered. Will try to order nuclear stress test to evaluate for cardiac ischemia. Orders: Orders NM cardiolite stress test 06/11/24 R07.9 - Chest pain, unspecified Coding Level of Care Code Est Pt Level 4 (39756) Diagnoses Seizure disorder G40.909 Severe persistent allergic asthma J45.50 Type 2 diabetes mellitus with hyperglycemia, without long-term current use of insulin E11.65 Diabetes mellitus complication status: with hyperglycemia Diabetes mellitus retirement insulin use: without retirement use Stress-induced cardiomyopathy I51.81 Cardiomyopathy type: stress-induced Precordial pain R07.2 Chest pain type: precordial pain
== END 2024-06-11 11:43 | disposition home or self-care (01) ==
PROVIDERS: PCP Physician Assistant; Visit Provider Physician Assistant
DX: G40.909 Epilepsy, unspecified, not intractable, without status epilepticus (principal); J45.50 Severe persistent asthma, uncomplicated; E11.65 Type 2 diabetes mellitus with hyperglycemia; I51.81 Takotsubo syndrome; R07.2 Precordial pain

== ENCOUNTER → 2024-06-11 10:47 | Outpatient (BNVA) | payer OTHER, SELFPAY | PROVIDERS: PCP Physician Assistant; Visit Provider Physician Assistant | DX: G40.909 Epilepsy, unspecified, not intractable, without status epilepticus (principal); J45.50 Severe persistent asthma, uncomplicated; E11.65 Type 2 diabetes mellitus with hyperglycemia; I51.81 Takotsubo syndrome; R07.2 Precordial pain | CPT/HCPCS: 99212 ==

== ENCOUNTER 2024-06-13 06:09 | Emergency (ER) | payer OTHER, SELFPAY ==
--- NOTE | ~2024-06-13 | XR_ITS ---
EXAMINATION: XR RIBS, BILATERAL CLINICAL INFORMATION: Bilateral ribs pain COMPARISON: Chest radiograph from August 01, 2023 TECHNIQUE: 3 views of the bilateral ribs were obtained. FINDINGS: Lungs are clear. No consolidation, pneumothorax, or pleural effusion. The cardiomediastinal silhouette and pulmonary vasculature are normal. Osseous structures are unremarkable. Ribs are intact. No fractures are identified. XR/XR ribs BI min 4V w CXR1V IMPRESSION: Unremarkable examination. Electronically signed by: Mitul Urena MD 06/13/2024 08:53 AM EDT
[2024-06-13 06:12] VITALS: BP 140/80; BP 159/64; PULSE 96; PULSE 99; RESP 21; TEMP 36.7; O2SAT 100; O2SAT 96; BMI 28.2
[2024-06-13 06:22] VITALS: BP 159/64; PULSE 121; RESP 25; TEMP 36.7; O2SAT 96
--- NOTE | 2024-06-13 06:29 | ECG_ITS ---
Test Reason : SEIZURE Blood Pressure : / mmHG Vent. Rate : 094 BPM Atrial Rate : 094 BPM P-R Int : 142 ms QRS Dur : 094 ms QT Int : 358 ms P-R-T Axes : 039 -02 057 degrees QTc Int : 447 ms Normal sinus rhythm with sinus arrhythmia Minimal voltage criteria for LVH, may be normal variant ( R in aVL ) Nonspecific T wave abnormality Abnormal ECG When compared with ECG of 30-APR-2024 07:27, Criteria for Septal infarct are no longer Present Nonspecific T wave abnormality, worse in Lateral leads Referred By: Generic ED Physician Electronically Signed By:MARTI SAHU
[2024-06-13] MEDS: ondansetron HCL 4 MG/2 ML VIAL IVPUSH (06:40)
[2024-06-13 06:45] LABS: MANUAL DIFF FLAG NO
[2024-06-13 06:47] LABS: Basophils Percent Auto 0.3 % (0-2); Eosinophils Percent Auto 0.2 % (0-4); Hematocrit 43.7 % (42.0-52.0); Imm Gran Abs Auto 0.08 X10*3/uL (0.00-0.03); Imm Gran Pct Auto 0.5 % (0.0-0.4); Lymphocytes Absolute Auto 0.9 X10*3/uL (1.2-4.9); Lymphocytes Percent Auto 5.8 % (20-40); Mean Corpuscular HGB Conc 34.3 g/dl (31.0-36.0); Mean Corpuscular Hemoglobin 29.4 pg (27.0-33.0); Mean Corpuscular Volume 85.7 fL (80.0-98.0); Mean Platelet Volume 8.7 fL (9.4-12.4); Monocytes Absolute Auto 0.7 X10*3/uL (0.1-1.2); Monocytes Percent Auto 4.4 % (2-11); Neutrophils Absolute Auto 13.6 x10*3/uL (2.0-8.3); Neutrophils Percent Auto 88.8 % (45-73); Platelet Count 383 X10*3/uL (160-400); Red Cell Distribution Width 13.3 % (11.0-16.0); White Blood Count 15.3 X10*3/uL (4.8-10.8)
--- NOTE | 2024-06-13 07:03 | ED_ITS ---
HPI - Seizure General Chief Complaint: Seizure Stated Complaint: wit sz 1-2 min, n/v, hx sz Time Seen by Provider: 06/13/24 07:01 Source: EMS Mode of arrival: EMS Limitations: no limitations History of Present Illness HPI Narrative: 43 year old male PMH: seizure on trileptal, clobazam, barrets esophagus, asthma, MEHNAZ, DM, GERD, cardiomyopathy EF 30%, thyroid cancer, dysphagia, gastroparesis, GI bleed, HLD recent admission for seizure asiration pneumonia 1 month ago. Patient is noted to have an troponin which is downtrending troponin was checked today appears to be continued to downtrend. Patient states he is taking all his medications he does admit to marijuana use twice a week his main complaint is pain to bilateral ribs states he woke up on the ground he states he is unsure if he had a seizure he denies fevers chills cough patient arrives tachycardic states he was retching initially but now feels much better and is asking for water MD complaint: seizure Seizure History: Yes Related Data Home Medications ?Medication ?Instructions ?Recorded ?Confirmed tiotropium bromide 2.5 2 puff PO DAILY PRN Shortness Of 05/20/23 06/11/24 mcg/actuation mist for inhalation Breath (Spiriva Respimat) clobazam 10 mg tablet 5 mg PO BID 12/11/23 06/11/24 oxcarbazepine 600 mg tablet 600 mg PO BID 12/11/23 06/11/24 omeprazole 40 mg capsule,delayed 40 mg PO BEDTIME 04/30/24 06/11/24 release hydroxyzine HCl 25 mg tablet 25 mg PO BEDTIME 06/11/24 06/11/24 Previous Rx's ?Medication ?Instructions ?Recorded Sharps container #1 ea 12/18/22 aspirin 81 mg tablet,delayed 81 mg PO DAILY 90 days #90 tabs 01/03/23 release bisacodyl 5 mg tablet,delayed 10 mg (2 x 5 mg) PO BEDTIME #180 05/14/23 release (Dulcolax (bisacodyl)) tabs sertraline 100 mg tablet 100 mg PO DAILY 90 days #90 tabs 10/15/23 gabapentin 300 mg capsule 300 mg PO BEDTIME PRN Pain 30 days 10/29/23 #30 caps dupilumab 300 mg/2 mL subcutaneous 300 mg (2 mL) subcut Q2W 28 days 11/16/23 pen injector (Dupixent) #4 mL atorvastatin 40 mg tablet 40 mg PO BEDTIME 90 days #90 tabs 03/12/24 carvedilol 3.125 mg tablet 3.125 mg PO BID 90 days #180 tabs 03/12/24 lisinopril 10 mg tablet 10 mg PO DAILY 90 days #90 tabs 03/12/24 metformin 500 mg tablet,extended 500 mg PO DAILY 90 days #90 tabs 03/12/24 release 24 hr montelukast 10 mg tablet 10 mg PO BEDTIME 90 days #90 tabs 03/12/24 nystatin 100,000 unit/mL oral 5 ml PO DAILY PRN thrush 30 days 03/12/24 suspension #200 mL Ventolin HFA 90 mcg/actuation 2 puff PO Q6H PRN for dyspnea #18 03/31/24 aerosol inhaler (albuterol sulfate) grams Carafate 100 mg/mL oral suspension 10 ml PO BEDTIME #420 mL 04/07/24 (sucralfate) cholecalciferol (vitamin D3) 50 100 mcg (2 x 50 mcg (2,000 unit)) 04/14/24 mcg (2,000 unit) capsule PO DAILY 90 days #180 caps Synthroid 200 mcg tablet 200 mcg PO DAILY #30 tabs 05/01/24 (levothyroxine) oxcarbazepine 300 mg tablet 300 mg PO BID #180 tabs 05/02/24 (Trileptal) Synthroid 25 mcg tablet 25 mcg PO DAILY #30 tabs 05/14/24 (levothyroxine) theophylline 400 mg 200 mg (1/2 x 400 mg) PO DAILY #45 05/30/24 tablet,extended release 24 hr tabs Allergies Allergy/AdvReac Type Severity Reaction Status Date / Time cat dander [CATS] Allergy Mild GENERALIZED Verified 06/13/24 06:18 ALLERGY SYMPTOMS dog dander [DOGS] Allergy Mild GENERALIZED Verified 06/13/24 06:18 ALLERGY SYMPTOMS tree and shrub pollen [TREE] Allergy Mild GENERALIZED Verified 06/13/24 06:18 ALLERGY SYMPTOMS FROM [place] divalproex sodium AdvReac Intermediate Confusion Verified 06/13/24 06:18 levetiracetam [From Keppra] AdvReac Intermediate Confusion Verified 06/13/24 06:18 Review of Systems 2 Review of Systems: Review of systems: General: Patient denies any fever chills recent illness or falls Musculoskeletal: Denies back pain or body aches or other injuries HEENT: denies headache, runny nose, ear pain Respiratory: denies shortness of breath, cough Cardiovascular: Bilateral rib pain denies any midline chest pain or palpitations : denies dysuria, frequency Abdomen: no nausea vomiting denies abdominal pain Extremities: no swelling, no pain Skin: no diaphoresis Yes all other systems are reviewed and are negative [facility] Past Medical History Medical History Uvulitis Claustrophobia Takotsubo cardiomyopathy Schatzki's ring Gastritis Sleep apnea Diabetes Gastroparesis Migraine headache with aura Enlarged liver Postoperative hypothyroidism Thyroid cancer Vitamin D deficiency Multinodular thyroid Seizures ABPA (allergic bronchopulmonary aspergillosis) Myocardial infarct Seizures Asthma Surgical History S/P total thyroidectomy History of esophagogastroduodenoscopy (EGD) S/P removal of thyroid nodule History of cholecystectomy Family History Family History Maternal Grandmother Emphysema, unspecified Father Diabetes Mother No problems noted. Paternal Grandfather Liver cancer Colon cancer Social History Social History Household Members: Family Housing: Apartment Are you a primary chiropractic care to a significant other at home: No Do you presently have visiting nurse or other home services: No Alcohol intake: former Comment: has poor balance Patient Tobacco Use Status: Never used Tobacco Smoked in Last 30 Days: No e-Cigarette/Vaping Use: Never Used Second Hand Smoke Exposure: No Substance Use Type: Marijuana Advance Directives: Yes Advance Directives Information Provided: Yes Advance Directives on File: No Advance Directives Date on File: 05/20/23 Do you have a plan to hurt others: No Plan service: No Current occupational status: disabled Current occupation: rt handed Cognitive needs: No Hearing needs: No Vision needs: No Physical Exam 2 Vital Signs: Vital Signs: Last Vital Signs Temp 98.1 F 06/13/24 06:22 Pulse 105 H 06/13/24 10:00 Resp 16 06/13/24 10:00 BP 168/73 H 06/13/24 10:00 Pulse Ox 96 06/13/24 10:00 O2 Del Method Room Air 06/13/24 10:00 O2 Flow Rate 2 06/13/24 08:05 BMI result Body Mass Index 28.2 General: Well-appearing well-nourished in no signs of distress HEENT: Normocephalic atraumatic Neck: No signs of JVD, no masses no tenderness or lymphadenopathy Cardiovascular: Regular rate and rhythm Respiratory: Clear to auscultation bilaterally Abdomen: Soft nontender no masses Extremities: Normal pedal pulses no signs of edema Skin: Dry warm no rashes Back: No tenderness full ROM Course Reevaluation(s) Reevaluation #1: Patient had a witnessed seizure was given 2 of Ativan patient did so they wake up was postictal afterwards we will load the patient with his oral medications I will continue the workup and labs and reassess. Time: 07:51 Reevaluation #2: Patient was a difficult stick took multiple attempts lactic mildly elevated due to seizures x 2. I do feel he is safe to go home. 3 liters of fluid given I will send home at this time Time: 11:24 Medications Administered Discontinued Medications Generic Name Dose Route Start Last Admin Trade Name Freq PRN Reason Stop Dose Admin Sodium Chloride 1,000 mls @ 999 mls/hr 06/13/24 07:30 06/13/24 07:55 Ns IV 06/13/24 08:30 999 mls/hr .Q1H1M FREDY Administration Lorazepam 1 mg 06/13/24 07:19 06/13/24 08:18 Lorazepam 2 Mg/Ml Vial IVPUSH 06/13/24 07:20 Not Given ONCE ONE Lorazepam 2 mg 06/13/24 07:43 06/13/24 07:48 Lorazepam 2 Mg/Ml Vial IVPUSH 06/13/24 07:44 2 mg ONCE ONE Administration Ondansetron HCl 4 mg 06/13/24 06:32 06/13/24 06:40 Ondansetron Hcl 4 Mg/2 Ml Vial IVPUSH 06/13/24 06:33 4 mg ONCE ONE Administration Oxcarbazepine 300 mg 06/13/24 07:49 06/13/24 09:51 Oxcarbazepine 300 Mg Tablet PO 06/13/24 07:50 300 mg ONCE ONE Administration Medical Decision Making Medical Decision Making [facility] Narrative: I will check labs electrolytes I will give patient fluids Ativan Zofran I will get x-rays and reassess. Differential Diagnosis Differential Diagnoses: The differential diagnosis associated with the presentation includes Vomiting followed bed dehydration electrolyte abnormality seizure medication noncompliance marijuana use Lab Data 06/13/24 06:39 06/13/24 10:31 Labs: Lab Results 06/13/24 06/13/24 Range/Units 06:39 10:31 WBC 15.3 H (4.8-10.8) X10*3/uL RBC 5.10 (4.60-5.80) X10*6/uL Hgb 15.0 (14.0-18.0) g/dl Hct 43.7 (42.0-52.0) % MCV 85.7 (80.0-98.0) fL MCH 29.4 (27.0-33.0) pg MCHC 34.3 (31.0-36.0) g/dl RDW 13.3 (11.0-16.0) % Plt Count 383 (160-400) X10*3/uL MPV 8.7 L (9.4-12.4) fL Immature Gran % (Auto) 0.5 H (0.0-0.4) % Neut % (Auto) 88.8 H (45-73) % Lymph % (Auto) 5.8 L (20-40) % Armstrong % (Auto) 4.4 (2-11) % Eos % (Auto) 0.2 (0-4) % Baso % (Auto) 0.3 (0-2) % Lymph # (Auto) 0.9 L (1.2-4.9) X10*3/uL Armstrong # (Auto) 0.7 (0.1-1.2) X10*3/uL Eos # (Auto) 0.0 (0.0-0.4) X10*3/uL Baso # (Auto) 0.0 (0.0-0.2) X10*3/uL Abs Immat Gran (auto) 0.08 H (0.00-0.03) X10*3/uL Absolute Neuts (auto) 13.6 H (2.0-8.3) x10*3/uL Absolute Nucleated RBC 0.000 (0.0-0.012) X10*3/uL Nucleated RBC % (auto) 0.0 (0.0-0.2) /100WBC Sodium 139 (135-145) mmol/L Potassium 4.5 (3.3-5.1) mmol/L Chloride 113 H (96-108) mmol/L Carbon Dioxide 18 L (22-29) mmol/L Anion Gap 13 (12-20) BUN 9 (9-16) mg/dL Creatinine 0.80 (0.5-1.4) mg/dL Estim Creat Clear Calc 112.8 Estimated GFR > 60 Random Glucose 118 H (60-115) mg/dL Lactic Acid 3.1 H* (0.5-2.0) mmol/L Calcium 9.0 D (8.4-10.2) mg/dL Total Bilirubin 0.2 (0.0-1.0) mg/dL AST 19 (5-37) U/L ALT 23 (0-40) U/L Alkaline Phosphatase 55 (39-117) U/L Troponin I High Sens 57.8 H D (<3.5-35.0) ng/L Total Protein 6.6 (6.5-8.0) g/dL Albumin 4.2 (3.5-5.0) g/dL Discharge Plan Discharge Clinical Impression: Recurrent seizures Patient Disposition: Home, Self-Care Instructions: Recurrent Seizures in Adults (ED) Additional Instructions: You were seen today for recurrent seizures. You were given labs we did have to medicate her few times he did have a seizure while here. Your labs all look okay please drink plenty of fluids if you have any other concerns please return to the emergency department. Prescriptions: No Action (DME) Sharps container See Rx Instructions .Route .MEDSUPPLY Qty: 1 0RF Rx Instructions: As directed aspirin 81 mg tablet,delayed release (DR/EC) 81 mg PO DAILY 90 Days Qty: 90 2RF sertraline 100 mg tablet 100 mg PO DAILY 90 Days Qty: 90 2RF gabapentin 300 mg capsule 300 mg PO BEDTIME PRN (Reason: Pain) 30 Days Qty: 30 3RF Dupixent Pen 300 mg/2 mL pen injector 300 mg subcut Q2W 28 Days Qty: 4 12RF albuterol sulfate [Ventolin HFA] 90 mcg/actuation HFA aerosol inhaler 2 puff PO Q6H PRN (Reason: for dyspnea) Qty: 18 6RF sucralfate [Carafate] 100 mg/mL suspension 10 ml PO BEDTIME Qty: 420 3RF Rx Instructions: Please take it at bedtime cholecalciferol (vitamin D3) 50 mcg (2,000 unit) capsule 100 mcg PO DAILY 90 Days Qty: 180 2RF levothyroxine [Synthroid] 200 mcg tablet 200 mcg PO DAILY Qty: 30 5RF levothyroxine [Synthroid] 25 mcg tablet 25 mcg PO DAILY Qty: 30 5RF Rx Instructions: Take one tablet of 25 mcg daily along with your 200 mcg tablet on an empty stomach once daily theophylline 400 mg tablet extended release 24 hr 200 mg PO DAILY Qty: 45 2RF Spiriva Respimat 2.5 mcg/actuation mist 2 puff PO DAILY PRN (Reason: Shortness Of Breath) omeprazole 40 mg capsule,delayed release(DR/EC) 40 mg PO BEDTIME oxcarbazepine [Trileptal] 300 mg tablet 300 mg PO BID Qty: 180 0RF nystatin 100,000 unit/mL suspension 5 ml PO DAILY PRN (Reason: thrush) 30 Days Qty: 200 6RF Rx Instructions: administer 1/2 of dose in each side of the mouth. SWISH AND SPIT metformin 500 mg tablet extended release 24 hr 500 mg PO DAILY 90 Days Qty: 90 2RF montelukast 10 mg tablet 10 mg PO BEDTIME 90 Days Qty: 90 2RF atorvastatin 40 mg tablet 40 mg PO BEDTIME 90 Days Qty: 90 3RF carvedilol 3.125 mg tablet 3.125 mg PO BID 90 Days Qty: 180 2RF lisinopril 10 mg tablet 10 mg PO DAILY 90 Days Qty: 90 3RF clobazam 10 mg tablet 5 mg PO BID oxcarbazepine 600 mg tablet 600 mg PO BID hydroxyzine HCl 25 mg tablet 25 mg PO BEDTIME bisacodyl [Dulcolax (bisacodyl)] 5 mg tablet,delayed release (DR/EC) 10 mg PO BEDTIME Qty: 180 4RF Print Language: [place]
[2024-06-13 07:07] LABS: Troponin-I High Sensitivity 57.8 ng/L (<3.5-35.0)
--- NOTE | 2024-06-13 07:26 | PC.NURSE ---
pt is currently in ct
[2024-06-13] MEDS: LORazepam 2 MG/ML VIAL IVPUSH (07:48)
--- NOTE | 2024-06-13 07:50 | PC.NURSE ---
pt was found by the hyperbaric technician having seizure like activity that maybe lasted about 2 min tremors, pt was rolled unto his right sided, suctioned and non-rebreather applied, sinus tach on the monitor at 123, pt given Ativan 2mg, seizure pads in place
[2024-06-13] MEDS: 0.9 % Sodium Chloride 1,000 ML 999 ML IV (07:55)
[2024-06-13 08:05] VITALS: BP 146/86; PULSE 123; RESP 20; O2SAT 100
--- NOTE | 2024-06-13 08:18 | PC.NURSE ---
This RN assumes care of patient. Received report from Nolvia Badillo RN. Pt was given Ativan 2mg IV due to witnessed seizure in ED (see previous RN notes). I spoke with Dr. Urena regarding other order for Ativan 1mg. Dr. Urena instructed this RN to hold Ativan 1mg for now and continue to monitor for anymore seizure activity. Also holding Zofran order at this time due to recently receiving this medication and not vomiting at this time.
--- NOTE | 2024-06-13 08:41 | PC.NURSE ---
Patient stated that he had to urinate. Assisted with urinal use, but patient did not void any urine. Pt is drowsy/sleepy, repeatedly falling asleep. Arousable to voice. Speech is slow, but improving in clarity. Pt's boxers reapplied. Offered blanket but refused at this time. Pt and mother repeatedly requesting to drink water at this time. Instructed pt to remain NPO at this time due to ongoing post-ictal state and inability to remain awake for long periods of time. IV fluids are infusing as ordered. Aspiration risk at this time. Dr. Urena aware.
[2024-06-13] MEDS: OXcarbazepine 300 MG TABLET PO (09:51)
[2024-06-13 10:00] VITALS: BP 168/73; PULSE 105; RESP 16; O2SAT 96
[2024-06-13 10:58] LABS: Alanine Aminotransferase 23 U/L (0-40); Albumin Level 4.2 g/dL (3.5-5.0); Alkaline Phosphatase 55 U/L (39-117); Anion Gap 13 (12-20); Aspartate Amino Transferase 19 U/L (5-37); Bilirubin Total 0.2 mg/dL (0.0-1.0); Blood Urea Nitrogen 9 mg/dL (9-16); Carbon Dioxide 18 mmol/L (22-29); Chloride 113 mmol/L (96-108); Creatinine Clr Calc Pharmacy 112.8; Estimated Glomerular Filt Rate > 60; Glucose Random 118 mg/dL (60-115); Potassium 4.5 mmol/L (3.3-5.1); Sodium 139 mmol/L (135-145); Total Protein 6.6 g/dL (6.5-8.0)
[2024-06-13 11:00] LABS: Lactic Acid 3.1 mmol/L (0.5-2.0)
[2024-06-13 11:48] VITALS: BP 168/73; PULSE 105; RESP 16; TEMP 36.8; O2SAT 96
[2024-06-13 12:35] LABS: Reflex Lactate? Lactic Acid Added
== END 2024-06-13 11:50 | disposition home or self-care (01) ==
PROVIDERS: Emergency Provider Student in an Organized Health Care Education/Training Program; PCP Physician Assistant
DX: G40.909 Epilepsy, unspecified, not intractable, without status epilepticus (principal); R07.81 Pleurodynia; Z79.899 Other long term (current) drug therapy
CPT/HCPCS: 36415; 71111; 80053; 83605; 84484; 85025; 93005; 96374; 96375; 99284; 99285; J2060; J2405

== ENCOUNTER 2024-06-18 10:51 | Outpatient (AMB) | payer OTHER, SELFPAY ==
[2024-06-18 11:05] VITALS: BP 134/78; PULSE 78; O2SAT 97; BMI 27.4
--- NOTE | 2024-06-18 11:05 | A.OFFVIS_ITS ---
Vital Signs 06/18/24 11:05 Height 5 ft 5 in Weight 164 lb 7.437 oz BMI 27.4 BP 134/78 Blood Pressure Location Lt brachial Position Sitting Pulse 78 Pulse Source Pulse Oximeter Pulse Oximetry (%) 97 Oxygen Delivery Method Room Air Intake Visit Reasons: abdominal bloating Intake Note: Terrance presents in office today for a scheduled FUV CC: 04/30/24 and 06/13/24 for seizures and related complications. Pt reports that they were dealing with nausea, vomiting, and severe GI upset. Pt has also been reporting difficulties with dysphagia. Pt does report that they have increased their dose of their seizure medication and they have been well controlled since. Pt is still struggling with their intake however. Pt has only been eating soft and bland foods which they find they still struggle with as well. Pt also reports that their reflux has been very bad as well. Pt feels that their reflux is triggered by almost any intake they have recently. Pt also reporting very dry mouth, pt is trying to keep their water intake consistent, however; they are regularly feeling dehydrated despite their best efforts. Assembly Supervisor Required: No Allergies cat dander [CATS] Allergy (Mild, Verified 07/09/24 10:04) GENERALIZED ALLERGY SYMPTOMS dog dander [DOGS] Allergy (Mild, Verified 07/09/24 10:04) GENERALIZED ALLERGY SYMPTOMS tree and shrub pollen [TREE] Allergy (Mild, Verified 07/09/24 10:04) GENERALIZED ALLERGY SYMPTOMS FROM [place] HPI HPI abdominal bloating: Details: LAST VISIT: Barretts esophagus GERD (gastroesophageal reflux disease) Constipation Abdominal bloating Dysphagia Gastroparesis Schatzki's ring Plan Patient will start taking omeprazole before breakfast and not after breakfast. Avoid dietary triggers and late night snacking. Will increase to twice a day half an hour before dinner. Continue taking Dulcolax daily. Increase fluid intake and activity to promote better bowel motility. Continue Welchol. Patient will return in 3 months, sooner on as needed basis. He is agreeable to this plan and verbalizes understanding of instructions. He was given the opportunity to ask questions and all questions answered. ? Thank you for allowing me to participate in his care Medications Changed Changed From omeprazole 40 mg PO DAILY@0630 90 caps 2RF Changed To omeprazole 40 mg PO BID 180 caps 2RF TODAY'S VISIT Patient is here today for follow-up. Patient continues to have trouble with seizure medications. Admitted twice once in April and then in May for seizures. Patient reports that his medication got increased. Since increase of his medication he has not had any seizure, however he reports that he has experienced more dry mouth despite him drinking plenty fluids. Patient is reporting acid reflux worsening depending on what he eats, however he reports that he is trying to eat food that is more blend. Patient is trying hard to avoid dietary triggers. Patient denies eating late at night. Patient reports that he is taking Dulcolax, however he feels like he is not able to move his bowels well. Patient reports frequent abdominal bloating. Denies melena, hematochezia, unintentional weight loss or ribbon like stools. Patient reports that he feels bloated even when he has not eaten anything yet. Patient reports occasional dyspepsia without dysphagia or odynophagia. Reports nausea occasional vomiting. [facility] Medical History Uvulitis Claustrophobia Takotsubo cardiomyopathy Schatzki's ring Gastritis Sleep apnea Diabetes Gastroparesis Migraine headache with aura Enlarged liver Postoperative hypothyroidism Thyroid cancer Vitamin D deficiency Multinodular thyroid Seizures ABPA (allergic bronchopulmonary aspergillosis) Myocardial infarct Seizures Asthma Surgical History S/P total thyroidectomy History of esophagogastroduodenoscopy (EGD) S/P removal of thyroid nodule History of cholecystectomy Family History Maternal Grandmother Emphysema, unspecified Father Diabetes Mother No problems noted. Paternal Grandfather Liver cancer Colon cancer Social History Household Members: Family Housing: Apartment Are you a primary clinical care coordinator to a significant other at home: No Do you presently have visiting nurse or other home services: No Alcohol intake: never Comment: has poor balance Patient Tobacco Use Status: Never used Tobacco e-Cigarette/Vaping Use: Never Used Second Hand Smoke Exposure: No Substance Use Type: Marijuana Advance Directives Date on File: 05/20/23 service: No Current occupational status: disabled Current occupation: rt handed Cognitive needs: No Hearing needs: No Vision needs: No Review of Systems Const Denies weight gain and Denies weight loss ENT Reports no additional complaints, Reports dysphagia and Denies odynophagia Card Reports no additional complaints Resp Reports no additional complaints GI Reports abdominal pain (Epigastric), Denies belching, Denies melena, Reports bloating, Denies change in bowel habits, Reports constipation, Reports dysphagia, Denies excessive flatus, Denies dyspepsia, Reports heartburn, Denies diarrhea, Denies loose stools, Denies nausea, Denies odynophagia and Denies vomiting Reports no additional complaints Musc Reports no additional complaints Neuro Reports no additional complaints Psych Reports no additional complaints Endo Reports no additional complaints Physical Exam Vital Signs: Last Vital Signs Pulse 78 06/18/24 11:05 BP 134/78 06/18/24 11:05 Pulse Ox 97 06/18/24 11:05 Oxygen Delivery Method Room Air 06/18/24 11:05 BMI result Body Mass Index 27.4 Const General: healthy appearing, no acute distress and well developed Nutritional Appearance: well nourished Orientation/consciousness: patient oriented x3 Resp Effort & Inspection: normal respiratory effort, able to speak in complete sentences, no tracheal deviation and symmetric chest movement Auscultation: clear to auscultation bilaterally Cardio Rate: regular rate GI Inspection: Yes normal to inspection and No distended Palpation (GI): Soft to palpation, not firm, nontender and No hepatosplenomegaly present Auscultation: normal bowel sounds General: Yes no CVA tenderness Back/Spine/Pelvis Back: no CVA tenderness Skin General skin exam: elasticity normal, turgor normal and dry skin Neuro General: patient oriented x3 Psych Appearance: grossly normal Mental Status: mental status grossly normal Assessment & Plan Assessment & Plan (1) Barretts esophagus: Code(s): K22.70 - Ramirez's esophagus without dysplasia Category: Medical Qualifiers: Ramirez's esophagus type: without dysplasia Qualified Code(s): K22.70 - Ramirez's esophagus without dysplasia (2) GERD (gastroesophageal reflux disease): Code(s): K21.9 - Gastro-esophageal reflux disease without esophagitis Category: Medical Qualifiers: Esophagitis presence: esophagitis presence not specified Qualified Code(s): K21.9 - Gastro-esophageal reflux disease without esophagitis (3) Constipation: Code(s): K59.00 - Constipation, unspecified Category: Medical Qualifiers: Constipation type: slow transit constipation Qualified Code(s): K59.01 - Slow transit constipation (4) Abdominal bloating: Code(s): R14.0 - Abdominal distension (gaseous) Category: Medical (5) Dysphagia: Code(s): R13.10 - Dysphagia, unspecified Category: Medical Qualifiers: Dysphagia type: pharyngoesophageal phase Qualified Code(s): R13.14 - Dysphagia, pharyngoesophageal phase (6) Gastroparesis: Code(s): K31.84 - Gastroparesis Category: Medical (7) Schatzki's ring: Code(s): K22.2 - Esophageal obstruction Plan Patient continues to have epigastric pain with or without meals. Will send him script for lansoprazole daily. Avoid dietary triggers and late night snacking. Patient can continue taking sucralfate at bedtime. He is not able to move his bowels well we will start him on Linzess. Patient will increase fluid intake and activity to promote better bowel motility. Patient will follow-up in 6 weeks, sooner on as needed basis. He is agreeable to this plan and verbalizes understanding of instructions. He was given the opportunity to ask questions and all questions answered. Thank you for allowing me to participate in his care Medications: New lansoprazole 30 mg PO DAILY 30 caps 3RF K21.9 - Gastro-esophageal reflux disease without esophagitis linaclotide (Linzess) 145 mcg PO DAILY 30 caps 2RF Coding Level of Care Code Est Pt Level 4 (22243) Diagnoses Ramirez's esophagus without dysplasia K22.70 Ramirez's esophagus type: without dysplasia Gastroesophageal reflux disease, unspecified whether esophagitis present K21.9 Esophagitis presence: esophagitis presence not specified Slow transit constipation K59.01 Constipation type: slow transit constipation Abdominal bloating R14.0 Pharyngoesophageal dysphagia R13.14 Dysphagia type: pharyngoesophageal phase Gastroparesis K31.84 Schatzki's ring K22.2 Time Spent (min) 40 Comment 25 minutes spent with patient and additional 15 minutes spent reviewing his records
== END 2024-06-18 11:44 | disposition home or self-care (01) ==
PROVIDERS: PCP Physician Assistant; Visit Provider Nurse Practitioner Family
DX: K22.70 Barrett's esophagus without dysplasia (principal); K21.9 Gastro-esophageal reflux disease without esophagitis; K59.01 Slow transit constipation; R14.0 Abdominal distension (gaseous); R13.14 Dysphagia, pharyngoesophageal phase; K31.84 Gastroparesis; K22.2 Esophageal obstruction
CPT/HCPCS: 99214

== ENCOUNTER → 2024-06-18 10:51 | Outpatient (BNVA) | payer OTHER, SELFPAY | PROVIDERS: PCP Physician Assistant; Visit Provider Nurse Practitioner Family | DX: K21.9 Gastro-esophageal reflux disease without esophagitis (principal); K22.70 Barrett's esophagus without dysplasia; K59.01 Slow transit constipation; R13.14 Dysphagia, pharyngoesophageal phase; K31.84 Gastroparesis; K22.2 Esophageal obstruction; R14.0 Abdominal distension (gaseous) | CPT/HCPCS: 99212 ==

== ENCOUNTER 2024-06-27 07:40 | Emergency (ER) | payer OTHER, SELFPAY ==
--- NOTE | ~2024-06-27 | XR_ITS ---
EXAMINATION: XR CHEST CLINICAL INFORMATION: Seizure. Cough. Pneumonia. COMPARISON: CT chest from 04/30/2024. Chest radiograph from 06/13/2024. TECHNIQUE: AP portable upright view of the chest was obtained. FINDINGS: The lungs are well expanded. Potential faint nonspecific right basilar airspace opacities. No dense focal consolidative process. No evidence of pleural effusion, pulmonary edema, or pneumothorax. The cardiomediastinal silhouette is within normal limits. No acute osseous abnormalities. XR/XR chest 1V IMPRESSION: Potential faint nonspecific right basilar airspace opacities. No dense focal consolidative process. No evidence of pleural effusion or pneumothorax. Electronically signed by: Bishop Akers DO 06/27/2024 01:58 PM EDT
--- NOTE | ~2024-06-27 | CT_ITS ---
EXAMINATION: CT HEAD WITHOUT CONTRAST CLINICAL INFORMATION: Seizure. Head strike. COMPARISON: CT head from 04/30/2024. TECHNIQUE: Contiguous axial imaging was performed from the skull base to vertex without intravenous administration of contrast. This CT examination was performed using dose optimization techniques as appropriate, variously including the following: *Automated exposure control. *Adjustment of mA and/or kV according to patient size (this includes techniques or standardized protocols for targeted exams where dose is matched to indication/reason for exam; i.e. extremities or head). *Use of iterative reconstruction technique. DLP: 634 mGy-cm FINDINGS: There is no evidence of acute intracranial hemorrhage or edematous territorial infarction. Vora-white matter differentiation is preserved. There is no abnormal attenuation within the brain parenchyma. The ventricles are normal in morphology and size. No evidence for obstructive hydrocephalus. No abnormal mass effect or midline shift. No extra-axial fluid collections. No acute soft tissue or osseous abnormalities. Mild mucosal thickening of the paranasal sinuses. Moderate rightward nasal septal deviation. The mastoid air cells and middle ear cavities are clear. CT/CT head/brain wo IV con IMPRESSION: No evidence of acute intracranial hemorrhage or edematous territorial infarction. Electronically signed by: Bishop Akers DO 06/27/2024 11:39 AM EDT
--- NOTE | 2024-06-27 07:43 | ED_ITS ---
HPI - General Adult General Chief complaint: Seizure Stated complaint: hx sz , multiple today Time Seen by Provider: 06/27/24 07:51 Source: patient Mode of arrival: ambulatory Limitations: no limitations History of Present Illness ED Provider: Erik MORLEY HPI narrative: 43 year old male hx of seizure on trileptal, clobazam, barrets esophagus, asthma, MEHNAZ, DM, GERD, cardiomyopathy EF 30%, thyroid cancer, dysphagia, gastroparesis, GI bleed, HLD recent admission for seizure asiration pneumonia 1 month ago presents with unwhitnessed seizure at home earlier today was brought in by ambulance, parents report to EMS that pateint may have hit his head with this seizure but unclear. When he was brought in he was alert and oriented x1, some [place] but given 4 mg IM zofran by EMS. + postictal. Not complaining of any pain or recent illnesses. Denies chest pain, shortness of breath, , fevers, chills, headache, vision changes, dizziness, falls. Reports med compliance but has not yet taken his meds today last took them last night. Regularly followed by neuro Related Data Home Medications ?Medication ?Instructions ?Recorded ?Confirmed tiotropium bromide 2.5 2 puff PO DAILY PRN Shortness Of 05/20/23 06/11/24 mcg/actuation mist for inhalation Breath (Spiriva Respimat) clobazam 10 mg tablet 5 mg PO BID 12/11/23 06/11/24 oxcarbazepine 600 mg tablet 600 mg PO BID 12/11/23 06/11/24 hydroxyzine HCl 25 mg tablet 25 mg PO BEDTIME 06/11/24 06/11/24 lacosamide 100 mg tablet mg PO 06/18/24 Previous Rx's ?Medication ?Instructions ?Recorded Sharps container #1 ea 12/18/22 aspirin 81 mg tablet,delayed 81 mg PO DAILY 90 days #90 tabs 01/03/23 release bisacodyl 5 mg tablet,delayed 10 mg (2 x 5 mg) PO BEDTIME #180 05/14/23 release (Dulcolax (bisacodyl)) tabs gabapentin 300 mg capsule 300 mg PO BEDTIME PRN Pain 30 days 10/29/23 #30 caps dupilumab 300 mg/2 mL subcutaneous 300 mg (2 mL) subcut Q2W 28 days 11/16/23 pen injector (Dupixent) #4 mL atorvastatin 40 mg tablet 40 mg PO BEDTIME 90 days #90 tabs 03/12/24 carvedilol 3.125 mg tablet 3.125 mg PO BID 90 days #180 tabs 03/12/24 lisinopril 10 mg tablet 10 mg PO DAILY 90 days #90 tabs 03/12/24 metformin 500 mg tablet,extended 500 mg PO DAILY 90 days #90 tabs 03/12/24 release 24 hr montelukast 10 mg tablet 10 mg PO BEDTIME 90 days #90 tabs 03/12/24 nystatin 100,000 unit/mL oral 5 ml PO DAILY PRN thrush 30 days 03/12/24 suspension #200 mL Ventolin HFA 90 mcg/actuation 2 puff PO Q6H PRN for dyspnea #18 03/31/24 aerosol inhaler (albuterol sulfate) grams Carafate 100 mg/mL oral suspension 10 ml PO BEDTIME #420 mL 04/07/24 (sucralfate) cholecalciferol (vitamin D3) 50 100 mcg (2 x 50 mcg (2,000 unit)) 04/14/24 mcg (2,000 unit) capsule PO DAILY 90 days #180 caps Synthroid 200 mcg tablet 200 mcg PO DAILY #30 tabs 05/01/24 (levothyroxine) oxcarbazepine 300 mg tablet 300 mg PO BID #180 tabs 05/02/24 (Trileptal) Synthroid 25 mcg tablet 25 mcg PO DAILY #30 tabs 05/14/24 (levothyroxine) theophylline 400 mg 200 mg (1/2 x 400 mg) PO DAILY #45 05/30/24 tablet,extended release 24 hr tabs lansoprazole 30 mg capsule,delayed 30 mg PO DAILY #30 caps 06/18/24 release linaclotide 145 mcg capsule 145 mcg PO DAILY #30 caps 06/18/24 (Linzess) sertraline 100 mg tablet 100 mg PO DAILY 90 days #90 tabs 06/23/24 Allergies Allergy/AdvReac Type Severity Reaction Status Date / Time cat dander [CATS] Allergy Mild GENERALIZED Verified 06/27/24 07:49 ALLERGY SYMPTOMS dog dander [DOGS] Allergy Mild GENERALIZED Verified 06/27/24 07:49 ALLERGY SYMPTOMS tree and shrub pollen [TREE] Allergy Mild GENERALIZED Verified 06/27/24 07:49 ALLERGY SYMPTOMS FROM PINE TREES divalproex sodium AdvReac Intermediate Confusion Verified 06/27/24 07:49 levetiracetam [From Keppra] AdvReac Intermediate Confusion Verified 06/27/24 07:49 Review of Systems 2 Review of Systems: Yes all other systems are reviewed and are negative [facility] Past Medical History Attestation statement: The following information was validated with the patient. Source: old records reviewed and nursing notes reviewed Medical History Uvulitis Claustrophobia Takotsubo cardiomyopathy Schatzki's ring Gastritis Sleep apnea Diabetes Gastroparesis Migraine headache with aura Enlarged liver Postoperative hypothyroidism Thyroid cancer Vitamin D deficiency Multinodular thyroid Seizures ABPA (allergic bronchopulmonary aspergillosis) Myocardial infarct Seizures Asthma Surgical History S/P total thyroidectomy History of esophagogastroduodenoscopy (EGD) S/P removal of thyroid nodule History of cholecystectomy Family History Family History Maternal Grandmother Emphysema, unspecified Father Diabetes Mother No problems noted. Paternal Grandfather Liver cancer Colon cancer Social History Social History Household Members: Family Housing: Apartment Are you a primary hiv/aids care nurse to a significant other at home: No Do you presently have visiting nurse or other home services: No Alcohol intake: former Comment: has poor balance Patient Tobacco Use Status: Never used Tobacco e-Cigarette/Vaping Use: Never Used Second Hand Smoke Exposure: No Substance Use Type: Marijuana Advance Directives: No Advance Directives Information Provided: No Advance Directives Date on File: 05/20/23 Do you have a plan to hurt others: No Plan service: No Current occupational status: disabled Current occupation: rt handed Cognitive needs: No Hearing needs: No Vision needs: No Physical Exam ED Vital Signs: Vital Signs - 24 hr 06/27/24 07:47 06/27/24 11:07 Temperature 99 F Pulse Rate 99 94 Respiratory Rate 18 19 Blood Pressure 146/96 H 142/83 H Pulse Oximetry 98 98 Oxygen Delivery Method Room Air Room Air BMI result Body Mass Index 25.5 vss Appearance: Alert.? Oriented X 1.? No acute distress.? Head: Normocephalic, atraumatic, no step-offs or deformities Eyes: Pupils equal, round and reactive to light.? ENT: Pharynx normal.? Neck: Normal inspection.? Neck supple.? CVS: Normal heart rate and rhythm.? Pulses normal.? Respiratory: No respiratory distress.? Breath sounds normal.? Abdomen: Soft and nontender.? Skin: Skin warm and dry.? Normal skin color.? Normal skin turgor.? Extremities: No lower extremity edema.? No calf ttp. 5/5 strength to bilateral upper and lower extremities Neuro: Oriented X 1 only to person.? No motor deficit.? No sensory deficit. CN 2-12 intact Course Reevaluation(s) Reevaluation #1: Patient's CBC with leukocytosis 13.5 with left shift this is likely reactive secondary to seizure. Chemistry with no acute findings eating intervention. Head CT unremarkable, chest x-ray has been done and appears normal however waiting for the final read. Patient has not had any other seizures while in the department. Family at the bedside. Acting his normal self. Plan is to discharge patient home advised and educated on the importance of taking home seizure meds, recommended neurology follow-up. Educated patient on diagnosis and treatment plan, answered all question, patient verbalizes understanding. At this time patient will be discharged home, advised to return with new or worsening symptoms. Educated on worrisome signs and symptoms and when to return. At this time I feel comfortable discharge home. Time: 12:04 Medications Administered Discontinued Medications Generic Name Dose Route Start Last Admin Trade Name Joel PRN Reason Stop Dose Admin Lorazepam 2 mg 06/27/24 07:41 06/27/24 07:55 Lorazepam 2 Mg/Ml Vial IM 06/27/24 07:42 2 mg STAT STA Administration Oxcarbazepine 300 mg 06/27/24 07:44 06/27/24 07:56 Oxcarbazepine 300 Mg Tablet PO 06/27/24 07:45 300 mg ONCE ONE Administration Medical Decision Making Medical Decision Making MDM Narrative: 43-year-old male presents with seizure at home unwitnessed. Possible head strike however unclear. Physical exam benign. History and physical exam concerning for epileptic seizure versus pseudo genetic seizure although less likely. Unlikely intracranial hemorrhage, stroke, posterior stroke. Unlikely infection. Will rule out metabolic derangements. Plan labs, urine, will give his Trileptal as well as IM Ativan to raise seizure threshold. Differential Diagnosis Differential Diagnoses: The differential diagnosis associated with the presentation includes (History and physical exam concerning for epileptic seizure versus pseudo genetic seizure although less likely. Unlikely intracranial hemorrhage, stroke, posterior stroke. Unlikely infection. Will rule out metabolic derangements.) Admission/Observation Consideration of admission/observation: Escalation of care including admission/observation considered Lab Data MDM Lab Attestation statement: I reviewed the patient's lab results. 06/27/24 10:43 06/27/24 09:13 Labs: Lab Results 06/27/24 06/27/24 06/27/24 Range/Units 09:13 10:43 11:45 WBC 13.5 H (4.8-10.8) X10*3/uL RBC 5.45 (4.60-5.80) X10*6/uL Hgb 16.2 (14.0-18.0) g/dl Hct 45.2 (42.0-52.0) % MCV 82.9 (80.0-98.0) fL MCH 29.7 (27.0-33.0) pg MCHC 35.8 (31.0-36.0) g/dl RDW 13.1 (11.0-16.0) % Plt Count 411 H (160-400) X10*3/uL MPV 8.3 L (9.4-12.4) fL Immature Gran % (Auto) 0.4 (0.0-0.4) % Neut % (Auto) 86.1 H (45-73) % Lymph % (Auto) 8.5 L (20-40) % [place] % (Auto) 4.8 (2-11) % Eos % (Auto) 0.1 (0-4) % Baso % (Auto) 0.1 (0-2) % Lymph # (Auto) 1.2 (1.2-4.9) X10*3/uL [place] # (Auto) 0.6 (0.1-1.2) X10*3/uL Eos # (Auto) 0.0 (0.0-0.4) X10*3/uL Baso # (Auto) 0.0 (0.0-0.2) X10*3/uL Abs Immat Gran (auto) 0.05 H (0.00-0.03) X10*3/uL Absolute Neuts (auto) 11.6 H (2.0-8.3) x10*3/uL Absolute Nucleated RBC 0.000 (0.0-0.012) X10*3/uL Nucleated RBC % (auto) 0.0 (0.0-0.2) /100WBC Sodium 134 L (135-145) mmol/L Potassium 4.8 (3.3-5.1) mmol/L Chloride 106 (96-108) mmol/L Carbon Dioxide 18 L (22-29) mmol/L Anion Gap 15 (12-20) BUN 6 L (9-16) mg/dL Creatinine 0.83 (0.5-1.4) mg/dL Estim Creat Clear Calc 102.4 Estimated GFR > 60 Random Glucose 118 H (60-115) mg/dL Calcium 9.5 (8.4-10.2) mg/dL Magnesium 2.5 (1.6-2.6) mg/dL Total Bilirubin 0.3 (0.0-1.0) mg/dL AST 23 (5-37) U/L ALT 39 (0-40) U/L Alkaline Phosphatase 78 (39-117) U/L Total Protein 7.4 (6.5-8.0) g/dL Albumin 4.7 (3.5-5.0) g/dL Urine Color Yellow Urine Appearance Clear Urine pH 5.5 (5.0-9.0) Ur Specific [place] 1.015 (1.005-1.025) Urine Protein 100 (2+) H (Neg-Trace) mg/dL Urine Glucose (UA) 100 H (Negative) mg/dL Urine Ketones Negative (Negative) mg/dL Urine Blood Negative (Negative) Urine Nitrite Negative (Negative) Ur Leukocyte Esterase Negative (Negative) Urine RBC 0-2 (0-2) /HPF Urine WBC 0-5 (0-5) /HPF Ur Squamous Epith Cells 0-2 (0-2) /HPF Urine Bacteria None Seen (None Seen) Hyaline Casts 0-2 (0-2) /LPF Independent Interpretation I performed an independent interpretation of an: Plain X-Ray and CT Scan (CT/CT head/brain wo IV con IMPRESSION: No evidence of acute intracranial hemorrhage or edematous territorial infarction. ) Radiology Impression Discussion of test interpretation with radiology: I have reviewed the radiologist's reading. External Record Review External record reviewed: Inpatient record, Office record, Outpatient record, Prior outpatient labs, Prior outpatient radiology, Primary care record and Outside ED record Chronic Conditions Patient?s care impacted by: Other (see hpi ) Social Determinants Patient?s care significantly limited by Social Determinants of Health including: Other Social Determinant of Health Critical Care Time Critical Care Time Critical Care Time: Yes Total Critical Care Time: 35 Attestation: I attest to this time spent taking care of the patient, obtaining history, physical, reviewing labs, imaging, treatment of patients condition +/- specialist/hospitalist consult Discharge Plan Discharge Clinical Impression: Seizure disorder Patient Disposition: Home, Self-Care Instructions: Epilepsy (ED) Additional Instructions: Take your medications as prescribed. If you were prescribed antibiotics today, it is important that you take your medication to their entirety, do not skip any doses, do not finish them early. Follow-up with your primary care provider this week. Return to the emergency department with new or worsening symptoms. Such as fevers, chills, chest pain, shortness of breath, nausea, vomiting, dizziness, headache, vision changes, lethargy In case of emergency call 911 Prescriptions: No Action (DME) Sharps container See Rx Instructions .Route .MEDSUPPLY Qty: 1 0RF Rx Instructions: As directed aspirin 81 mg tablet,delayed release (DR/EC) 81 mg PO DAILY 90 Days Qty: 90 2RF gabapentin 300 mg capsule 300 mg PO BEDTIME PRN (Reason: Pain) 30 Days Qty: 30 3RF Dupixent Pen 300 mg/2 mL pen injector 300 mg subcut Q2W 28 Days Qty: 4 12RF albuterol sulfate [Ventolin HFA] 90 mcg/actuation HFA aerosol inhaler 2 puff PO Q6H PRN (Reason: for dyspnea) Qty: 18 6RF sucralfate [Carafate] 100 mg/mL suspension 10 ml PO BEDTIME Qty: 420 3RF Rx Instructions: Please take it at bedtime cholecalciferol (vitamin D3) 50 mcg (2,000 unit) capsule 100 mcg PO DAILY 90 Days Qty: 180 2RF levothyroxine [Synthroid] 200 mcg tablet 200 mcg PO DAILY Qty: 30 5RF levothyroxine [Synthroid] 25 mcg tablet 25 mcg PO DAILY Qty: 30 5RF Rx Instructions: Take one tablet of 25 mcg daily along with your 200 mcg tablet on an empty stomach once daily theophylline 400 mg tablet extended release 24 hr 200 mg PO DAILY Qty: 45 2RF sertraline 100 mg tablet 100 mg PO DAILY 90 Days Qty: 90 2RF Spiriva Respimat 2.5 mcg/actuation mist 2 puff PO DAILY PRN (Reason: Shortness Of Breath) oxcarbazepine [Trileptal] 300 mg tablet 300 mg PO BID Qty: 180 0RF nystatin 100,000 unit/mL suspension 5 ml PO DAILY PRN (Reason: thrush) 30 Days Qty: 200 6RF Rx Instructions: administer 1/2 of dose in each side of the mouth. SWISH AND SPIT metformin 500 mg tablet extended release 24 hr 500 mg PO DAILY 90 Days Qty: 90 2RF montelukast 10 mg tablet 10 mg PO BEDTIME 90 Days Qty: 90 2RF atorvastatin 40 mg tablet 40 mg PO BEDTIME 90 Days Qty: 90 3RF carvedilol 3.125 mg tablet 3.125 mg PO BID 90 Days Qty: 180 2RF lisinopril 10 mg tablet 10 mg PO DAILY 90 Days Qty: 90 3RF clobazam 10 mg tablet 5 mg PO BID oxcarbazepine 600 mg tablet 600 mg PO BID hydroxyzine HCl 25 mg tablet 25 mg PO BEDTIME lacosamide 100 mg tablet PO lansoprazole 30 mg capsule,delayed release(DR/EC) 30 mg PO DAILY Qty: 30 3RF Linzess 145 mcg capsule 145 mcg PO DAILY Qty: 30 2RF bisacodyl [Dulcolax (bisacodyl)] 5 mg tablet,delayed release (DR/EC) 10 mg PO BEDTIME Qty: 180 4RF Referrals: Saúl Maier PA-C [Primary Care Provider] - 2 days Print Language: Spanish
[2024-06-27 07:47] VITALS: BP 146/96; BP 152/80; PULSE 116; PULSE 99; RESP 18; TEMP 37.2; O2SAT 96; O2SAT 98; BMI 25.5
[2024-06-27] MEDS: LORazepam 2 MG/ML VIAL IM (07:55)
[2024-06-27] MEDS: OXcarbazepine 300 MG TABLET PO (07:56)
[2024-06-27 09:50] LABS: Alanine Aminotransferase 39 U/L (0-40); Albumin Level 4.7 g/dL (3.5-5.0); Alkaline Phosphatase 78 U/L (39-117); Anion Gap 15 (12-20); Aspartate Amino Transferase 23 U/L (5-37); Bilirubin Total 0.3 mg/dL (0.0-1.0); Blood Urea Nitrogen 6 mg/dL (9-16); Calcium 9.5 mg/dL (8.4-10.2); Carbon Dioxide 18 mmol/L (22-29); Chloride 106 mmol/L (96-108); Creatinine Clr Calc Pharmacy 102.4; Estimated Glomerular Filt Rate > 60; Glucose Random 118 mg/dL (60-115); Magnesium 2.5 mg/dL (1.6-2.6); Potassium 4.8 mmol/L (3.3-5.1); Sodium 134 mmol/L (135-145); Total Protein 7.4 g/dL (6.5-8.0)
[2024-06-27 10:48] LABS: MANUAL DIFF FLAG NO
[2024-06-27 10:50] LABS: Basophils Percent Auto 0.1 % (0-2); Eosinophils Percent Auto 0.1 % (0-4); Hematocrit 45.2 % (42.0-52.0); Hemoglobin 16.2 g/dl (14.0-18.0); Imm Gran Abs Auto 0.05 X10*3/uL (0.00-0.03); Imm Gran Pct Auto 0.4 % (0.0-0.4); Lymphocytes Absolute Auto 1.2 X10*3/uL (1.2-4.9); Lymphocytes Percent Auto 8.5 % (20-40); Mean Corpuscular HGB Conc 35.8 g/dl (31.0-36.0); Mean Corpuscular Hemoglobin 29.7 pg (27.0-33.0); Mean Corpuscular Volume 82.9 fL (80.0-98.0); Mean Platelet Volume 8.3 fL (9.4-12.4); Monocytes Absolute Auto 0.6 X10*3/uL (0.1-1.2); Monocytes Percent Auto 4.8 % (2-11); Neutrophils Absolute Auto 11.6 x10*3/uL (2.0-8.3); Neutrophils Percent Auto 86.1 % (45-73); Platelet Count 411 X10*3/uL (160-400); Red Blood Count 5.45 X10*6/uL (4.60-5.80); Red Cell Distribution Width 13.1 % (11.0-16.0); White Blood Count 13.5 X10*3/uL (4.8-10.8)
[2024-06-27 11:07] VITALS: BP 142/83; PULSE 94; RESP 19; O2SAT 98
--- NOTE | 2024-06-27 11:34 | PC.NURSE ---
Pt reporting he is feeling better, mom is at bedside, pt is able to hold full conversations, able to tolerate PO fluids at this time
[2024-06-27 11:57] LABS: Appearance Urine Clear; Color Urine Yellow; Glucose Urine UA 100 mg/dL (Negative); Leukocyte Esterase Urine Negative (Negative); Nitrite Urine Negative (Negative); PH 5.5 (5.0-9.0); Specific Gravity - Urine 1.015 (1.005-1.025); UMIC TRIGGER UACC YES; Urine Blood Negative (Negative); Urine Ketones Negative (Negative); Urine Protein 100 (2+) mg/dL (Neg-Trace)
[2024-06-27 12:00] LABS: Bacteria Urine None Seen (None Seen); Hyaline Casts Urine 0-2 /LPF (0-2); RBC Urine 0-2 /HPF (0-2); Squamous Epithelial Cell Urine 0-2 /HPF (0-2); WBC Urine 0-5 /HPF (0-5)
[2024-06-27 12:26] VITALS: BP 147/80; PULSE 102; RESP 20; TEMP -17.7; TEMP 0; O2SAT 99
== END 2024-06-27 12:26 | disposition home or self-care (01) ==
PROVIDERS: Physician Assistant; Emergency Provider Emergency Medicine; PCP Physician Assistant
DX: G40.909 Epilepsy, unspecified, not intractable, without status epilepticus (principal); E11.9 Type 2 diabetes mellitus without complications; J45.909 Unspecified asthma, uncomplicated; Z79.899 Other long term (current) drug therapy; Z79.82 Long term (current) use of aspirin; Z79.84 Long term (current) use of oral hypoglycemic drugs
CPT/HCPCS: 36415; 70450; 71045; 80053; 81001; 83735; 85025; 96372; 99284; J2060

== ENCOUNTER 2024-07-05 09:23 | Emergency (ER) | payer OTHER, SELFPAY ==
--- NOTE | ~2024-07-05 | CT_ITS ---
EXAMINATION: CT HEAD WITHOUT CONTRAST CT CERVICAL SPINE WITHOUT CONTRAST CLINICAL INFORMATION: Seizure, headache and neck pain. COMPARISON: CT head 06/27/2024. CT head and neck 04/30/2024. TECHNIQUE: Contiguous axial imaging was performed from the skull base to vertex without intravenous administration of contrast. Contiguous axial imaging was performed from the upper chest through the skull base without intravenous administration of contrast. Coronal and sagittal reformats were obtained at the acquisition workstation. This CT examination was performed using dose optimization techniques as appropriate, variously including the following: *Automated exposure control *Adjustment of mA and/or kV according to patient size (this includes techniques or standardized protocols for targeted exams where dose is matched to indication/reason for exam; i.e. extremities or head) *Use of iterative reconstruction technique DLP: 1133 mGy-cm FINDINGS: Head: There is no evidence of acute intracranial hemorrhage or edematous territorial infarction. There is no abnormal attenuation within the brain parenchyma. Vora-white matter differentiation is preserved. The ventricles are normal in size and configuration. No evidence for obstructive hydrocephalus. No abnormal mass effect or midline shift. No extra-axial fluid collections. No acute soft tissue or osseous abnormalities. Mucous retention cysts in the paranasal sinuses largest in the left maxillary sinus. Mucous secretions partially opacifying the left sphenoidal sinus. The mastoids and middle ear cavities are clear. Cervical Spine: The atlantooccipital and atlantoaxial articulations remain well aligned. No evidence of acute fracture or subluxation. Mild multilevel cervical spondylosis. There is no prevertebral soft tissue swelling. The thyroid gland appears to be surgically absent. remaining cervical soft tissues are normal in appearance. The lung apices demonstrate paraseptal emphysema. CT/CT cervical spine wo IV con IMPRESSION: 1. No acute intracranial pathology. 2. No acute cervical spinal fractures or malalignment. Electronically signed by: Jody Pickett MD 07/05/2024 11:57 AM EDT
--- NOTE | 2024-07-05 09:38 | ED.SEIZURE ---
HPI - Seizure General Chief Complaint: Seizure Stated Complaint: SZ PER EMS Time Seen by Provider: 07/05/24 09:33 Source: patient and EMS Mode of arrival: EMS Limitations: no limitations History of Present Illness ED Provider: DR. Garcia HPI Narrative: 43-year-old male brought in by EMS after had a seizure episode at home patient with known history of seizure disorder on Keppra and Depakote, patient was playing video game in his room when his parents heard a thud, parents help him to put him down on the ground on EMS arrival patient was postictal, in urinary incontinence, with no seizure activity, patient is compliant with his medication currently complaining of headache, on arrival patient has trial of retching. , otherwise patient has no other complaints. No abdominal pain. Seizure History: Yes Related Data Home Medications ?Medication ?Instructions ?Recorded ?Confirmed tiotropium bromide 2.5 2 puff PO DAILY PRN Shortness Of 05/20/23 06/11/24 mcg/actuation mist for inhalation Breath (Spiriva Respimat) clobazam 10 mg tablet 5 mg PO BID 12/11/23 06/11/24 oxcarbazepine 600 mg tablet 600 mg PO BID 12/11/23 06/11/24 hydroxyzine HCl 25 mg tablet 25 mg PO BEDTIME 06/11/24 06/11/24 lacosamide 100 mg tablet mg PO 06/18/24 Previous Rx's ?Medication ?Instructions ?Recorded Sharps container #1 ea 12/18/22 aspirin 81 mg tablet,delayed 81 mg PO DAILY 90 days #90 tabs 01/03/23 release bisacodyl 5 mg tablet,delayed 10 mg (2 x 5 mg) PO BEDTIME #180 05/14/23 release (Dulcolax (bisacodyl)) tabs gabapentin 300 mg capsule 300 mg PO BEDTIME PRN Pain 30 days 10/29/23 #30 caps dupilumab 300 mg/2 mL subcutaneous 300 mg (2 mL) subcut Q2W 28 days 11/16/23 pen injector (Dupixent) #4 mL atorvastatin 40 mg tablet 40 mg PO BEDTIME 90 days #90 tabs 03/12/24 carvedilol 3.125 mg tablet 3.125 mg PO BID 90 days #180 tabs 03/12/24 lisinopril 10 mg tablet 10 mg PO DAILY 90 days #90 tabs 03/12/24 metformin 500 mg tablet,extended 500 mg PO DAILY 90 days #90 tabs 03/12/24 release 24 hr montelukast 10 mg tablet 10 mg PO BEDTIME 90 days #90 tabs 03/12/24 nystatin 100,000 unit/mL oral 5 ml PO DAILY PRN thrush 30 days 03/12/24 suspension #200 mL Ventolin HFA 90 mcg/actuation 2 puff PO Q6H PRN for dyspnea #18 03/31/24 aerosol inhaler (albuterol sulfate) grams Carafate 100 mg/mL oral suspension 10 ml PO BEDTIME #420 mL 04/07/24 (sucralfate) cholecalciferol (vitamin D3) 50 100 mcg (2 x 50 mcg (2,000 unit)) 04/14/24 mcg (2,000 unit) capsule PO DAILY 90 days #180 caps Synthroid 200 mcg tablet 200 mcg PO DAILY #30 tabs 05/01/24 (levothyroxine) oxcarbazepine 300 mg tablet 300 mg PO BID #180 tabs 05/02/24 (Trileptal) Synthroid 25 mcg tablet 25 mcg PO DAILY #30 tabs 05/14/24 (levothyroxine) theophylline 400 mg 200 mg (1/2 x 400 mg) PO DAILY #45 05/30/24 tablet,extended release 24 hr tabs lansoprazole 30 mg capsule,delayed 30 mg PO DAILY #30 caps 06/18/24 release linaclotide 145 mcg capsule 145 mcg PO DAILY #30 caps 06/18/24 (Linzess) sertraline 100 mg tablet 100 mg PO DAILY 90 days #90 tabs 06/23/24 Allergies Allergy/AdvReac Type Severity Reaction Status Date / Time cat dander [CATS] Allergy Mild GENERALIZED Verified 07/05/24 09:54 ALLERGY SYMPTOMS dog dander [DOGS] Allergy Mild GENERALIZED Verified 07/05/24 09:54 ALLERGY SYMPTOMS tree and shrub pollen [TREE] Allergy Mild GENERALIZED Verified 07/05/24 09:54 ALLERGY SYMPTOMS FROM P[place] TREES Review of Systems Review of Systems: All other systems are reviewed and are negative Constitutional: Reports as per HPI and Reports no additional constitutional complaints Eyes: Reports as per HPI and Reports no additional eye complaints Reports system reviewed and no additional complaints, except as documented Cardiovascular: Reports as per HPI and Reports no additional cardiovascular complaints Respiratory: Reports as per HPI and Reports no additional respiratory complaints Gastrointestinal: Reports as per HPI and Reports no additional gastrointestinal complaints Genitourinary: Reports no additional female genitourinary complaints Musculoskeletal: Reports no additional musculoskeletal complaints Skin/Breast: Reports system reviewed and no additional complaints, except as docu Psychiatric: Reports no additional psychiatric complaints Endocrine: Reports no additional endocrine complaints Hematologic/Lymphatic: Reports no additional hematologic/lymphatic complaints Allergic/Immunologic: Reports no additional allergic/immunologic complaints Reports system reviewed and no additional complaints, except as documented and Reports Abnormal speech present [facility] Past Medical History Medical History Uvulitis Claustrophobia Takotsubo cardiomyopathy Schatzki's ring Gastritis Sleep apnea Diabetes Gastroparesis Migraine headache with aura Enlarged liver Postoperative hypothyroidism Thyroid cancer Vitamin D deficiency Multinodular thyroid Seizures ABPA (allergic bronchopulmonary aspergillosis) Myocardial infarct Seizures Asthma Surgical History S/P total thyroidectomy History of esophagogastroduodenoscopy (EGD) S/P removal of thyroid nodule History of cholecystectomy Family History Family History Maternal Grandmother Emphysema, unspecified Father Diabetes Mother No problems noted. Paternal Grandfather Liver cancer Colon cancer Social History Social History Household Members: Family Housing: Apartment Are you a primary managed care liaison to a significant other at home: No Do you presently have visiting nurse or other home services: No Alcohol intake: never Comment: has poor balance Patient Tobacco Use Status: Never used Tobacco Smoked in Last 30 Days: No e-Cigarette/Vaping Use: Never Used Second Hand Smoke Exposure: No Use of substances other than those prescribed or required for medical reasons: No Substance Use Type: Marijuana Advance Directives: No Advance Directives Date on File: 05/20/23 service: No Current occupational status: disabled Current occupation: rt handed Cognitive needs: No Hearing needs: No Vision needs: No Physical Exam Vital Signs: Vital Signs: Last Vital Signs Pulse 102 H 07/05/24 14:36 Resp 20 07/05/24 14:36 BP 115/72 07/05/24 14:36 Pulse Ox 95 07/05/24 14:36 O2 Del Method Room Air 07/05/24 14:36 BMI result Body Mass Index 27.1 Vital signs have been reviewed and appear to be correct. Blood pressure elevated. Heart rate normal. Respiratory rate normal. Temperature normal. Oxygen saturation normal. Appearance: Alert. Oriented X3. No acute distress. Head: Normal external exam. Normocephalic. Atraumatic. No Lofton signs noted. No raccoon eyes noted Eyes: PERRLA. EOMI. Conjunctiva and sclera normal. Eyelids normal. ENT: TM's Normal. Pharynx normal. Uvula midline. Moist mucous membranes. No trismus noted. No drooling noted. No muffled voice noted. Neck: Normal inspection. Neck supple. FROM. No adenopathy. Thyroid Normal. No meningeal signs. No neck mass noted. CVS: Normal heart rate and rhythm. Heart sound normal. No murmurs noted. Pulses normal throughout. Respiratory: No respiratory distress. Painless inspiration. Breath sounds normal. No wheezes/rales/rhonchi noted. Chest nontender. No accessory muscle usage noted or decreased air movement noted. Abdomen: Soft and nontender. Bowel sounds normal in all 4 quadrants. No distention noted. No organomegaly noted. No visible injury noted. Back: No CVA tenderness. Full range of motion noted. Skin: Skin warm and dry. Normal skin color. Normal skin turgor. No rashes/lesions/lacerations noted. Extremities: No lower extremity edema. Extremities exhibit normal range of motion. Extremities nontender. Neuro: Oriented X 3. Cranial nerve exam: II-XII are grossly intact No motor deficit. No sensory deficit. Reflexes normal. Course Reevaluation(s) Reevaluation #1: Patient now is AAO x3, no headache, no CP, no abdominal pain, normal neuro exam, head / C-spine CT is unremarkable, patient was given an extra dose of Keppra in the emergency department levels still pending do not expect to be back by today as it is outside testing. , Depakote level was low and was loaded in the emergency department patient was instructed to take 900 mg b.i.d. electrolyte are unremarkable. Time: 15:59 Medications Administered Discontinued Medications Generic Name Dose Route Start Last Admin Trade Name Freq PRN Reason Stop Dose Admin Acetaminophen 650 mg 07/05/24 12:54 07/05/24 12:59 Acetaminophen 325 Mg Tablet PO 07/05/24 12:55 650 mg ONCE ONE Administration Divalproex Sodium 1,000 mg 07/05/24 12:21 07/05/24 12:29 Divalproex Sodium 500 Mg Tablet.Dr PO 07/05/24 12:22 1,000 mg ONCE ONE Administration Famotidine 20 mg 07/05/24 09:36 07/05/24 09:45 Famotidine/Pf 20 Mg/2 Ml Vial IVPUSH 07/05/24 09:37 20 mg ONCE ONE Administration Sodium Chloride 1,000 mls @ 999 mls/hr 07/05/24 10:28 07/05/24 13:16 Ns IV 07/05/24 11:28 Infused .Q1H1M ONE Infusion Levetiracetam 500 mg 07/05/24 09:36 07/05/24 10:18 Levetiracetam 500 Mg Tablet PO 07/05/24 09:37 500 mg ONCE ONE Administration Lorazepam 1 mg 07/05/24 09:44 07/05/24 09:59 Lorazepam 2 Mg/Ml Vial IVPUSH 07/05/24 09:45 1 mg STAT STA Administration Ondansetron HCl 4 mg 07/05/24 09:36 07/05/24 09:45 Ondansetron Hcl 4 Mg/2 Ml Vial IVPUSH 07/05/24 09:37 4 mg ONCE ONE Administration Medical Decision Making Differential Diagnosis Differential Diagnoses: The differential diagnosis associated with the presentation includes ( Seizure, cervical spine injury, electrolyte derangement, vomiting, dehydration, severe anemia, Depakote level, Keppra level) Admission/Observation Consideration of admission/observation: Escalation of care including admission/observation considered Lab Data MDM Lab Attestation statement: I reviewed the patient's lab results. 07/05/24 09:46 07/05/24 09:46 Labs: Lab Results 07/05/24 07/05/24 07/05/24 Range/Units 09:46 10:13 11:12 WBC 10.8 (4.8-10.8) X10*3/uL RBC 5.54 (4.60-5.80) X10*6/uL Hgb 16.4 (14.0-18.0) g/dl Hct 48.1 (42.0-52.0) % MCV 86.8 (80.0-98.0) fL MCH 29.6 (27.0-33.0) pg MCHC 34.1 (31.0-36.0) g/dl RDW 12.9 (11.0-16.0) % Plt Count 579 H D (160-400) X10*3/uL MPV 9.0 L (9.4-12.4) fL Immature Gran % (Auto) 0.5 H (0.0-0.4) % Neut % (Auto) 73.5 H (45-73) % Lymph % (Auto) 20.3 (20-40) % Teller % (Auto) 4.6 (2-11) % Eos % (Auto) 0.6 (0-4) % Baso % (Auto) 0.5 (0-2) % Lymph # (Auto) 2.2 (1.2-4.9) X10*3/uL Teller # (Auto) 0.5 (0.1-1.2) X10*3/uL Eos # (Auto) 0.1 (0.0-0.4) X10*3/uL Baso # (Auto) 0.1 (0.0-0.2) X10*3/uL Abs Immat Gran (auto) 0.05 H (0.00-0.03) X10*3/uL Absolute Neuts (auto) 8.0 (2.0-8.3) x10*3/uL Absolute Nucleated RBC 0.000 (0.0-0.012) X10*3/uL Nucleated RBC % (auto) 0.0 (0.0-0.2) /100WBC Hold Purple Top SEE NOTE Hold Blue Top SEE NOTE Sodium 135 (135-145) mmol/L Potassium 4.6 (3.3-5.1) mmol/L Chloride 102 (96-108) mmol/L Carbon Dioxide 14 L (22-29) mmol/L Anion Gap 24 H (12-20) BUN 6 L (9-16) mg/dL Creatinine 0.87 (0.5-1.4) mg/dL Estim Creat Clear Calc 101.8 Estimated GFR > 60 Random Glucose 180 H (60-115) mg/dL Lactic Acid Cancelled Calcium 10.3 H D (8.4-10.2) mg/dL Urine Color Urine Appearance Urine pH (5.0-9.0) Ur Specific Rogers (1.005-1.025) Urine Protein (Neg-Trace) mg/dL Urine Glucose (UA) (Negative) mg/dL Urine Ketones (Negative) mg/dL Urine Blood (Negative) Urine Nitrite (Negative) Ur Leukocyte Esterase (Negative) Urine RBC (0-2) /HPF Urine WBC (0-5) /HPF Ur Squamous Epith Cells (0-2) /HPF Urine Bacteria (None Seen) Hyaline Casts (0-2) /LPF Valproic Acid < 12.5 L (50.0-100.0) mcg/mL 07/05/24 Range/Units 11:13 WBC (4.8-10.8) X10*3/uL RBC (4.60-5.80) X10*6/uL Hgb (14.0-18.0) g/dl Hct (42.0-52.0) % MCV (80.0-98.0) fL MCH (27.0-33.0) pg MCHC (31.0-36.0) g/dl RDW (11.0-16.0) % Plt Count (160-400) X10*3/uL MPV (9.4-12.4) fL Immature Gran % (Auto) (0.0-0.4) % Neut % (Auto) (45-73) % Lymph % (Auto) (20-40) % Teller % (Auto) (2-11) % Eos % (Auto) (0-4) % Baso % (Auto) (0-2) % Lymph # (Auto) (1.2-4.9) X10*3/uL Teller # (Auto) (0.1-1.2) X10*3/uL Eos # (Auto) (0.0-0.4) X10*3/uL Baso # (Auto) (0.0-0.2) X10*3/uL Abs Immat Gran (auto) (0.00-0.03) X10*3/uL Absolute Neuts (auto) (2.0-8.3) x10*3/uL Absolute Nucleated RBC (0.0-0.012) X10*3/uL Nucleated RBC % (auto) (0.0-0.2) /100WBC Hold Purple Top Hold Blue Top Sodium (135-145) mmol/L Potassium (3.3-5.1) mmol/L Chloride (96-108) mmol/L Carbon Dioxide (22-29) mmol/L Anion Gap (12-20) BUN (9-16) mg/dL Creatinine (0.5-1.4) mg/dL Estim Creat Clear Calc Estimated GFR Random Glucose (60-115) mg/dL Lactic Acid Calcium (8.4-10.2) mg/dL Urine Color Yellow Urine Appearance Clear Urine pH 6.0 (5.0-9.0) Ur Specific Rogers 1.015 (1.005-1.025) Urine Protein 300 (3+) H (Neg-Trace) mg/dL Urine Glucose (UA) Negative (Negative) mg/dL Urine Ketones Negative (Negative) mg/dL Urine Blood Negative (Negative) Urine Nitrite Negative (Negative) Ur Leukocyte Esterase Negative (Negative) Urine RBC 0-2 (0-2) /HPF Urine WBC 0-5 (0-5) /HPF Ur Squamous Epith Cells 0-2 (0-2) /HPF Urine Bacteria None Seen (None Seen) Hyaline Casts 0-2 (0-2) /LPF Valproic Acid (50.0-100.0) mcg/mL Independent Interpretation I performed an independent interpretation of an: CT Scan ( head/C-spine CT: Acute pathology.) Radiology Impression Discussion of test interpretation with radiology: I have reviewed the radiologist's reading. Discharge Plan Discharge Clinical Impression: Seizure disorder Patient Disposition: Home, Self-Care Instructions: Recurrent Seizures in Adults (ED) Prescriptions: No Action (DME) Sharps container See Rx Instructions .Route .MEDSUPPLY Qty: 1 0RF Rx Instructions: As directed aspirin 81 mg tablet,delayed release (DR/EC) 81 mg PO DAILY 90 Days Qty: 90 2RF gabapentin 300 mg capsule 300 mg PO BEDTIME PRN (Reason: Pain) 30 Days Qty: 30 3RF Dupixent Pen 300 mg/2 mL pen injector 300 mg subcut Q2W 28 Days Qty: 4 12RF albuterol sulfate [Ventolin HFA] 90 mcg/actuation HFA aerosol inhaler 2 puff PO Q6H PRN (Reason: for dyspnea) Qty: 18 6RF sucralfate [Carafate] 100 mg/mL suspension 10 ml PO BEDTIME Qty: 420 3RF Rx Instructions: Please take it at bedtime cholecalciferol (vitamin D3) 50 mcg (2,000 unit) capsule 100 mcg PO DAILY 90 Days Qty: 180 2RF levothyroxine [Synthroid] 200 mcg tablet 200 mcg PO DAILY Qty: 30 5RF levothyroxine [Synthroid] 25 mcg tablet 25 mcg PO DAILY Qty: 30 5RF Rx Instructions: Take one tablet of 25 mcg daily along with your 200 mcg tablet on an empty stomach once daily theophylline 400 mg tablet extended release 24 hr 200 mg PO DAILY Qty: 45 2RF sertraline 100 mg tablet 100 mg PO DAILY 90 Days Qty: 90 2RF Spiriva Respimat 2.5 mcg/actuation mist 2 puff PO DAILY PRN (Reason: Shortness Of Breath) oxcarbazepine [Trileptal] 300 mg tablet 300 mg PO BID Qty: 180 0RF nystatin 100,000 unit/mL suspension 5 ml PO DAILY PRN (Reason: thrush) 30 Days Qty: 200 6RF Rx Instructions: administer 1/2 of dose in each side of the mouth. SWISH AND SPIT metformin 500 mg tablet extended release 24 hr 500 mg PO DAILY 90 Days Qty: 90 2RF montelukast 10 mg tablet 10 mg PO BEDTIME 90 Days Qty: 90 2RF atorvastatin 40 mg tablet 40 mg PO BEDTIME 90 Days Qty: 90 3RF carvedilol 3.125 mg tablet 3.125 mg PO BID 90 Days Qty: 180 2RF lisinopril 10 mg tablet 10 mg PO DAILY 90 Days Qty: 90 3RF clobazam 10 mg tablet 5 mg PO BID oxcarbazepine 600 mg tablet 600 mg PO BID hydroxyzine HCl 25 mg tablet 25 mg PO BEDTIME lacosamide 100 mg tablet PO lansoprazole 30 mg capsule,delayed release(DR/EC) 30 mg PO DAILY Qty: 30 3RF Linzess 145 mcg capsule 145 mcg PO DAILY Qty: 30 2RF bisacodyl [Dulcolax (bisacodyl)] 5 mg tablet,delayed release (DR/EC) 10 mg PO BEDTIME Qty: 180 4RF Print Language: Bulgarian
[2024-07-05] MEDS: ondansetron HCL 4 MG/2 ML VIAL IVPUSH (09:45)
[2024-07-05] MEDS: Famotidine/PF 20 MG/2 ML VIAL IVPUSH (09:45)
[2024-07-05 09:49] VITALS: BP 162/92; PULSE 93; BMI 27.1
[2024-07-05 09:52] LABS: MANUAL DIFF FLAG NO
[2024-07-05] MEDS: LORazepam 2 MG/ML VIAL 1 MG IVPUSH (09:59)
[2024-07-05 10:04] LABS: Basophils Absolute Auto 0.1 X10*3/uL (0.0-0.2); Basophils Percent Auto 0.5 % (0-2); Eosinophils Absolute Auto 0.1 X10*3/uL (0.0-0.4); Eosinophils Percent Auto 0.6 % (0-4); Hematocrit 48.1 % (42.0-52.0); Hemoglobin 16.4 g/dl (14.0-18.0); Imm Gran Abs Auto 0.05 X10*3/uL (0.00-0.03); Imm Gran Pct Auto 0.5 % (0.0-0.4); Lymphocytes Absolute Auto 2.2 X10*3/uL (1.2-4.9); Lymphocytes Percent Auto 20.3 % (20-40); Mean Corpuscular HGB Conc 34.1 g/dl (31.0-36.0); Mean Corpuscular Hemoglobin 29.6 pg (27.0-33.0); Mean Corpuscular Volume 86.8 fL (80.0-98.0); Monocytes Absolute Auto 0.5 X10*3/uL (0.1-1.2); Monocytes Percent Auto 4.6 % (2-11); Neutrophils Percent Auto 73.5 % (45-73); Platelet Count 579 X10*3/uL (160-400); Red Blood Count 5.54 X10*6/uL (4.60-5.80); Red Cell Distribution Width 12.9 % (11.0-16.0); White Blood Count 10.8 X10*3/uL (4.8-10.8)
[2024-07-05 10:10] LABS: Anion Gap 24 (12-20); Blood Urea Nitrogen 6 mg/dL (9-16); Calcium 10.3 mg/dL (8.4-10.2); Carbon Dioxide 14 mmol/L (22-29); Chloride 102 mmol/L (96-108); Creatinine Clr Calc Pharmacy 101.8; Estimated Glomerular Filt Rate > 60; Glucose Random 180 mg/dL (60-115); Potassium 4.6 mmol/L (3.3-5.1); Sodium 135 mmol/L (135-145)
[2024-07-05] MEDS: levETIRAcetam 500 MG TABLET PO (10:18)
[2024-07-05] MEDS: 0.9 % Sodium Chloride 1,000 ML 999 ML IV (11:04)
[2024-07-05 11:19] LABS: Appearance Urine Clear; Color Urine Yellow; Glucose Urine UA Negative (Negative); Leukocyte Esterase Urine Negative (Negative); Nitrite Urine Negative (Negative); Specific Gravity - Urine 1.015 (1.005-1.025); UMIC TRIGGER UACC YES; Urine Blood Negative (Negative); Urine Ketones Negative (Negative); Urine Protein 300 (3+) mg/dL (Neg-Trace)
--- NOTE | 2024-07-05 11:19 | PC.NURSE ---
Assumed care of this patient at 1100, phleb currently at bedside drawing patient d/t difficult stick. IV fluids running, otherwise resting quietly on stretcher at this time. Family at bedside
[2024-07-05 11:24] LABS: Bacteria Urine None Seen (None Seen); Hyaline Casts Urine 0-2 /LPF (0-2); RBC Urine 0-2 /HPF (0-2); Squamous Epithelial Cell Urine 0-2 /HPF (0-2); WBC Urine 0-5 /HPF (0-5)
[2024-07-05 11:29] LABS: Valproate < 12.5 mcg/mL (50.0-100.0)
[2024-07-05 12:27] VITALS: BP 137/77; PULSE 92; RESP 16; O2SAT 99
[2024-07-05] MEDS: Divalproex Sodium 500 MG TABLET.DR 1000 MG PO (12:29)
[2024-07-05] MEDS: Acetaminophen 325 MG TABLET 650 MG PO (12:59)
[2024-07-05 14:36] VITALS: BP 115/72; PULSE 102; RESP 20; O2SAT 95
--- NOTE | 2024-07-05 14:40 | PC.NURSE ---
Patient resting quietly on stretcher at this time, VSS, family at bedside.
[2024-07-05 16:34] VITALS: BP 115/72; PULSE 95; RESP 20; TEMP 36.6; O2SAT 95
[2024-07-09 07:44] LABS: Levetiracetam Keppra <2.0 mcg/mL (6.0-46.0)
== END 2024-07-05 16:37 | disposition home or self-care (01) ==
PROVIDERS: Emergency Provider Emergency Medicine; PCP Physician Assistant
DX: G40.909 Epilepsy, unspecified, not intractable, without status epilepticus (principal); R51.9 Headache, unspecified; E11.9 Type 2 diabetes mellitus without complications; J45.909 Unspecified asthma, uncomplicated; Z79.899 Other long term (current) drug therapy; Z79.82 Long term (current) use of aspirin; Z79.02 Long term (current) use of antithrombotics/antiplatelets; Z79.84 Long term (current) use of oral hypoglycemic drugs
CPT/HCPCS: 36415; 70450; 72125; 80048; 80164; 80177; 81001; 85025; 96361; 96374; 96375; 99284; J2060; J2405

== ENCOUNTER 2024-07-09 09:51 | Outpatient (AMB) | payer OTHER, SELFPAY ==
--- NOTE | 2024-07-09 09:54 | A.OFFPC_ITS ---
Vital Signs 07/09/24 09:55 Height 5 ft 5 in Weight 160 lb BMI 26.6 BP 132/72 Blood Pressure Location Lt brachial Position Sitting Pulse 103 H Pulse Source Pulse Oximeter Pulse Oximetry (%) 97 Oxygen Delivery Method Room Air Intake Visit Reasons: [facility] [place] 07/05 SZ PER EMS Intake Note: Patient is here to follow-up after a visit the emergency department at [facility] – [place] on 07/05/24 Travel Manager Required: No Power Tool Repair Technician: Not Required per policy Accompanied by: Self / Same As Patient Allergies cat dander [CATS] Allergy (Mild, Verified 07/09/24 10:04) GENERALIZED ALLERGY SYMPTOMS dog dander [DOGS] Allergy (Mild, Verified 07/09/24 10:04) GENERALIZED ALLERGY SYMPTOMS tree and shrub pollen [TREE] Allergy (Mild, Verified 07/09/24 10:04) GENERALIZED ALLERGY SYMPTOMS FROM [place] Medication List - Last Reconciled 07/09/24 by Saúl Maier PA-C aspirin 81 mg PO DAILY 90 days atorvastatin 40 mg PO BEDTIME 90 days bisacodyl (Dulcolax (bisacodyl)) 10 mg (2 x 5 mg) PO BEDTIME Carafate (sucralfate) 10 mL PO BEDTIME NS carvedilol 3.125 mg PO BID 90 days cholecalciferol (vitamin D3) 100 mcg (2 x 50 mcg (2,000 unit)) PO DAILY 90 days clobazam 5 mg PO BID dupilumab (Dupixent) 300 mg (2 mL) subcut Q2W 28 days gabapentin 300 mg PO BEDTIME PRN 30 days hydroxyzine HCl 25 mg PO BEDTIME lacosamide mg PO lansoprazole 30 mg PO DAILY linaclotide (Linzess) 145 mcg PO DAILY lisinopril 10 mg PO DAILY 90 days metformin ER 500 mg PO DAILY 90 days montelukast 10 mg PO BEDTIME 90 days nystatin 5 mL PO DAILY PRN 30 days oxcarbazepine (Trileptal) 300 mg PO BID oxcarbazepine 600 mg PO BID sertraline 100 mg PO DAILY 90 days [Sharps container As directed] Synthroid (levothyroxine) 25 mcg PO DAILY NS Synthroid (levothyroxine) 200 mcg PO DAILY NS theophylline ER 200 mg (1/2 x 400 mg) PO DAILY tiotropium bromide 2.5 mcg/actuation (Spiriva Respimat) 2 puffs PO DAILY PRN Ventolin HFA 90 mcg/actuation (albuterol sulfate) 2 puffs PO Q6H PRN NS Tobacco use date assessed: 07/09/24 Dental Screening Dental Screen Date: 12/11/23 HPI C 07/05 SZ PER EMS HPI Details Terrance is 43 year-old male here today for a follow up visit. ?Patient? has a past medical history significant for seizure disorder, moderate persistent? asthma, depression and anxiety, thyroid cancer status post thyroidectomy. Recently seen at the [place] [facility] acute breakthrough/recurrent seizure . Did get recent head and neck CTs without any intracranial pathology noted. He is now interested in getting a 2nd opinion through Neurology. --> Neurology also evaluated did EEG joesph t did show some frontal epileptic activity. His seizure medication was increased in dose. Unfortunately has intolerable side effects (lethargy, memory issues) due to the increased dose of TRileptal ( 900mg BID). He is currently working with a social work specialist who is trying to get him a new neurologist to make new recommendations on his seizure medication as he is having breakthrough seizures.] He now since his most recent seizure has been having balance issues feeling that he has to hold onto preciado to be able to walk in a straight line. --> Unclear at this time what his seizur e trigger is though his last seizure was just after he was playing video games * he does report his breakthrough seizures and the way his seizure medications are making him feel has been taking a toll on his mental health. Does have a mental health therapist he speaks to quite regularly. He mentions not being suicidal though is very depressed about his medical situation [facility] Medical History Uvulitis Claustrophobia Takotsubo cardiomyopathy Schatzki's ring Gastritis Sleep apnea Diabetes Gastroparesis Migraine headache with aura Enlarged liver Postoperative hypothyroidism Thyroid cancer Vitamin D deficiency Multinodular thyroid Seizures ABPA (allergic bronchopulmonary aspergillosis) Myocardial infarct Seizures Asthma Surgical History S/P total thyroidectomy History of esophagogastroduodenoscopy (EGD) S/P removal of thyroid nodule History of cholecystectomy Family History Maternal Grandmother Emphysema, unspecified Father Diabetes Mother No problems noted. Paternal Grandfather Liver cancer Colon cancer Social History Household Members: Family Housing: Apartment Are you a primary early breastfeeding care specialist to a significant other at home: No Do you presently have visiting nurse or other home services: No Alcohol intake: never Comment: has poor balance Patient Tobacco Use Status: Never used Tobacco e-Cigarette/Vaping Use: Never Used Second Hand Smoke Exposure: No Substance Use Type: Marijuana Advance Directives Date on File: 05/20/23 service: No Current occupational status: disabled Current occupation: rt handed Cognitive needs: No Hearing needs: No Vision needs: No Questionnaire Thrive Questionnaire Date Thrive assessed: 05/01/24 Are you currently unemployed and looking for a job?: I choose not to answer this question MOOSE-7 AMB Questionnaire MOOSE-7 Date MOOSE - 7 assessed: 12/11/23 Source: Developed by Drs. Ramses Nguyen, Debi Russ, Colin Rowell and colleagues, with an educational javy from [employer]. Review of Systems Const Denies headache(s) and Reports weakness Eyes Denies loss of vision ENT Denies vertigo, Reports dizziness, Denies headache(s) and Denies sore throat Card Denies chest pain, Denies leg edema and Denies lightheadedness Resp Denies cough, Denies hemoptysis and Denies wheezing GI Denies abdominal pain, Denies melena, Denies constipation, Denies diarrhea and Denies vomiting Denies dysuria, Denies urinary frequency and Denies urinary urgency Musc Reports abnormal gait, Denies arthralgias, Denies joint swelling, Denies numbness and Denies tingling Neuro Denies Abnormal speech present, Reports abnormal gait, Denies behavioral changes, Denies vertigo, Reports dizziness, Denies headache(s), Denies loss of vision, Denies memory loss, Denies numbness, Reports convulsions, Reports seizure-like activity, Denies tingling and Reports weakness Psych Denies anxiety, Denies behavioral changes, Denies depression, Denies memory loss and Denies panic attacks Nico/Lymph Denies easy bleeding and Denies easy bruising Aller/Immun Denies wheezing Physical exam (Primary Care) Vital Signs: Last Vital Signs Pulse 103 H 07/09/24 09:55 BP 132/72 07/09/24 09:55 Pulse Ox 97 07/09/24 09:55 Oxygen Delivery Method Room Air 07/09/24 09:55 BMI result Body Mass Index 26.6 Tobacco/Smoking Status: Tobacco use Status Tobacco use date assessed 07/09/24 07/09/24 10:00 Patient Tobacco Use Status Never used Tobacco 07/09/24 10:00 Tobacco use type 06/18/24 11:44 e-Cigarette/Vaping Use Never Used 07/09/24 10:00 Thrive Assessment: Date of Thrive Assessment Date Thrive assessed 05/01/24 07/09/24 10:00 Const General: healthy appearing, no acute distress, alert and awake Nutritional Appearance: well nourished Orientation/consciousness: oriented to person, oriented to place and oriented to time HENMT Ears: TM's normal bilaterally General nose exam: Normal nasal mucous membranes and turbinates present Eyes Conjunctivae: conjunctivae normal Sclerae: sclerae normal Pupils: Equal, round and reactive pupils present Neck Neck: Yes no lymphadenopathy and Yes no JVD Thyroid: Thyroid normal Carotids: no bruits Resp Effort & Inspection: normal respiratory effort and not tachypneic Auscultation: no crackles, no rales, no rhonchi and no wheezes Cardio Rate: regular rate Rhythm: regular rhythm Heart sounds: no murmurs and normal S1 and S2 GI Palpation (GI): Soft to palpation, nontender, no hepatomegaly and no splenomegaly Auscultation: normal bowel sounds Skin General skin exam: no rashes or lesions noted and dry skin Neuro General: oriented to person, oriented to place and oriented to time Cranial nerves: Yes Equal, round and reactive pupils present Speech: No Abnormal speech present Gait exam (Neuro): Normal gait present Motor exam (neuro): no tremor noted Extrem Right upper extremity: full ROM Left upper extremity: full ROM Right lower extremity: full ROM; no edema Left lower extremity: full ROM; no edema Psych Mental Status: mental status grossly normal Speech and movement: Normal speech and movement present Affect: normal affect Attitude: cooperative Thought process: Normal thought process present Coding Level of Care Code Est Pt Level 3 (61041) Diagnoses Epileptic seizure G40.909 Assessment & Plan Assessment & Plan (1) Epileptic seizure: Code(s): G40.909 - Epilepsy, unspecified, not intractable, without status epilepticus Category: Medical Plan: Terrance has been a patient here at the [facility] primary care for many years now and has been suffering with a epileptic seizure disorder. Has been on multiple medications including Keppra, lamotrigine, oxcarbazepine, clobazam and still having recurrent breakthrough seizures. Has seen though [place] [facility] twice over the last month for breakthrough seizures. He has had extensive workup including brain CTs and MRIs and EEGs without significant intracranial pathology. Emotionally this is taking a huge toll and Terrance's depression as he mentions life is somewhat not worth it anymore . He is seeing neurologist here in [place] though seems that seizure medication and escalating doses of seizure medications have not been helping. He has been looking for an epileptic seizure specialist ([facility] or [facility]) to take his complicated case. He was told that [facility] has a epileptic specialist that may be able to help this unfortunate 43-year-old gentleman with his epileptic seizures. Orders: Referrals Neurology Referral G40.909 - Epilepsy, unspecified, not intractable, without status epilepticus Medications: Refilled nystatin administer 1/2 of dose in each side of the mouth. SWISH AND SPIT 5 mL PO DAILY PRN 200 mL 6RF thrush 30 days G40.909 - Epilepsy, unspecified, not intractable, without status epilepticus
[2024-07-09 09:55] VITALS: BP 132/72; PULSE 103; O2SAT 97; BMI 26.6
== END 2024-07-09 10:41 | disposition home or self-care (01) ==
PROVIDERS: PCP Physician Assistant; Visit Provider Physician Assistant
DX: G40.909 Epilepsy, unspecified, not intractable, without status epilepticus (principal)

== ENCOUNTER → 2024-07-09 09:51 | Outpatient (BNVA) | payer OTHER, SELFPAY | PROVIDERS: PCP Physician Assistant; Visit Provider Physician Assistant | DX: G40.909 Epilepsy, unspecified, not intractable, without status epilepticus (principal) | CPT/HCPCS: 99212 ==

== ENCOUNTER 2024-07-17 06:10 | Outpatient (REF) | payer OTHER, SELFPAY ==
[2024-07-22 01:17] LABS: Oxcarbazepine 27.9 mcg/mL (8.0-35.0)
== END 2024-07-17 06:11 | disposition home or self-care (01) ==
LOC: HO.LAB 06:10
PROVIDERS: PCP Physician Assistant; Visit Provider Registered Nurse
DX: G40.909 Epilepsy, unspecified, not intractable, without status epilepticus (principal)
CPT/HCPCS: 36415; 80339

== ENCOUNTER 2024-07-22 08:53 | Outpatient (AMB) | payer OTHER, SELFPAY ==
--- NOTE | 2024-07-22 08:59 | A.OFFVIS_ITS ---
Vital Signs 07/22/24 09:00 Height 5 ft 5 in Weight 163 lb BMI 27.1 BP 132/80 Blood Pressure Location Rt brachial Position Sitting Pulse 100 Pulse Source Doppler Pulse Oximetry (%) 98 Oxygen Delivery Method Room Air Intake Visit Reasons: Asthma Allergies cat dander [CATS] Allergy (Mild, Verified 07/22/24 09:06) GENERALIZED ALLERGY SYMPTOMS dog dander [DOGS] Allergy (Mild, Verified 07/22/24 09:06) GENERALIZED ALLERGY SYMPTOMS tree and shrub pollen [TREE] Allergy (Mild, Verified 07/22/24 09:06) GENERALIZED ALLERGY SYMPTOMS FROM [place] HPI HPI Asthma: Details: 43-year-old gentleman, lifetime nonsmoker, followed for underlying severe persistent asthma, environmental allergies, and MEHNAZ on CPAP. He continues on Dupixent, Spiriva, Symbicort, Singulair, and albuterol MDI/nebs with suboptimal baseline control of his symptoms. Though, he denies recent exacerbations. [facility] Medical History Uvulitis Claustrophobia Takotsubo cardiomyopathy Schatzki's ring Gastritis Sleep apnea Diabetes Gastroparesis Migraine headache with aura Enlarged liver Postoperative hypothyroidism Thyroid cancer Vitamin D deficiency Multinodular thyroid Seizures ABPA (allergic bronchopulmonary aspergillosis) Myocardial infarct Seizures Asthma Surgical History S/P total thyroidectomy History of esophagogastroduodenoscopy (EGD) S/P removal of thyroid nodule History of cholecystectomy Family History Maternal Grandmother Emphysema, unspecified Father Diabetes Mother No problems noted. Paternal Grandfather Liver cancer Colon cancer Social History Household Members: Family Housing: Apartment Are you a primary senior resident care director to a significant other at home: No Do you presently have visiting nurse or other home services: No Alcohol intake: never Comment: has poor balance Patient Tobacco Use Status: Never used Tobacco e-Cigarette/Vaping Use: Never Used Second Hand Smoke Exposure: No Substance Use Type: Marijuana Advance Directives Date on File: 05/20/23 service: No Current occupational status: disabled Current occupation: rt handed Cognitive needs: No Hearing needs: No Vision needs: No Review of Systems Const Denies daytime sleepiness, Denies fever(s), Denies lethargy, Denies malaise, Denies night sweats, Denies snoring and Denies weight loss Eyes Denies itchy eyes ENT Denies nasal congestion, Denies post nasal drip, Denies sinus pain, Denies sinus pressure and Denies other ( Thrush) Card Denies chest pain, Denies pedal edema, Denies dyspnea, Denies orthopnea and Denies paroxysmal nocturnal dyspnea Resp Denies cough, Denies hemoptysis, Denies excessive phlegm production, Denies dyspnea, Denies snoring and Denies wheezing GI Denies abdominal pain and Denies heartburn Musc Denies myalgias, Denies arthralgias and Denies joint swelling Skin/Breast Denies rash Nico/Lymph Denies easy bruising Aller/Immun Denies itchy eyes, Denies seasonal rhinorrhea and Denies wheezing Physical Exam Vital Signs: Last Vital Signs Pulse 100 07/22/24 09:00 BP 132/80 07/22/24 09:00 Pulse Ox 98 07/22/24 09:00 Oxygen Delivery Method Room Air 07/22/24 09:00 BMI result Body Mass Index 27.1 Const General: no acute distress and alert Nutritional Appearance: not obese Orientation/consciousness: Other orientation findings ( oriented) HEENT Head: Yes atraumatic Eyes General: appearance normal, both eyes and all related structures Sclerae: sclerae normal EOM: EOMs intact bilaterally Neck Neck: Yes supple Lymphatic: no lymphadenopathy noted Resp Effort & Inspection: normal respiratory effort and no use of accessory muscles Auscultation: clear to auscultation bilaterally Cardio Rate: regular rate Rhythm: regular rhythm Heart sounds: no gallops, no murmurs and no rubs Skin General skin exam: other ( warm) Extrem General: No clubbing, No cyanosis and No edema Assessment & Plan Assessment & Plan (1) Environmental allergies: Code(s): Z91.09 - Other allergy status, other than to drugs and biological substances Category: Medical Plan: Reasonable control on Dupixent. Continue current regimen. (2) Severe persistent allergic asthma: Code(s): J45.50 - Severe persistent asthma, uncomplicated Category: Medical Plan: Suboptimal control despite maximum therapy with Dupixent, Symbicort, Spiriva, theophylline, DuoNebs, and albuterol MDI. Will refer for interventional pulmonary evaluation for possible laser therapy. Orders: Referrals Pulmonology Referral J45.40 - Moderate persistent asthma, uncomplicated Medications: New guaifenesin ER 600 mg PO BID 20 tabs 0RF Coding Level of Care Code Est Pt Level 4 (12027) Complex EM visit Add On G2211 Diagnoses Environmental allergies Z91.09 Severe persistent allergic asthma J45.50
[2024-07-22 09:00] VITALS: BP 132/80; PULSE 100; O2SAT 98; BMI 27.1
== END 2024-07-22 09:29 | disposition home or self-care (01) ==
LOC: HO.HPS 08:53
PROVIDERS: PCP Physician Assistant; Visit Provider Internal Medicine Pulmonary Disease
DX: Z91.09 Other allergy status, other than to drugs and biological substances (principal); J45.50 Severe persistent asthma, uncomplicated
CPT/HCPCS: 99214; G2211

== ENCOUNTER → 2024-07-22 08:53 | Outpatient (BNVA) | payer OTHER, SELFPAY | PROVIDERS: PCP Physician Assistant; Visit Provider Internal Medicine Pulmonary Disease | DX: J45.50 Severe persistent asthma, uncomplicated (principal); G47.33 Obstructive sleep apnea (adult) (pediatric); Z99.89 Dependence on other enabling machines and devices; Z79.899 Other long term (current) drug therapy; Z91.09 Other allergy status, other than to drugs and biological substances | CPT/HCPCS: 99212 ==

== ENCOUNTER 2024-08-06 16:17 | Outpatient (AMB) | payer OTHER, SELFPAY ==
--- NOTE | 2024-08-06 16:19 | MHC.OFFVIS ---
Vital Signs 08/06/24 16:20 Height 5 ft 5 in Weight 160 lb 0.889 oz BMI 26.6 BP 144/72 H Blood Pressure Location Rt brachial Position Sitting Pulse 108 H Pulse Source Pulse Oximeter Pulse Oximetry (%) 95 Oxygen Delivery Method Room Air Intake Visit Reasons: Gastro-esophageal reflux disease w/ esophagitis Intake Note: PRESCRIPTIONS LAST GENERATED lansoprazole 30 mg capsule,delayed release?30 mg PO DAILY 30 caps 3RF Lorene,Jessica D 06/18/24 11:38 (Transmitted) linaclotide 145 mcg capsule?(Linzess)?145 mcg PO DAILY 30 caps 2RF Lorene,Jessica D 06/18/24 11:38 (Transmitted) Pt is still taking medications without difficulty Relevant Flags or Indicators ? Requires Workers' Compensation Claims Supervisor? Ranjana Dela Cruzis presents in office today for a scheduled 1 mos FUV. CC; Pt has had multiple episodes pertaining to SZ and has been seen via [facility] on multiple occasions. Relevant GI Sx as reported per pt? N/V - severe ? Reflux - Pt has been avoiding all trigger foods and has not had any relief. Pt does state however that he does have occasional chocolate donuts. Constipation ? Bloating New onset of consistent dry cough. ? Hx of any recent surgeries? None Workers' Compensation Claims Supervisor Required: No Allergies cat dander [CATS] Allergy (Mild, Verified 08/06/24 16:20) GENERALIZED ALLERGY SYMPTOMS dog dander [DOGS] Allergy (Mild, Verified 08/06/24 16:20) GENERALIZED ALLERGY SYMPTOMS tree and shrub pollen [TREE] Allergy (Mild, Verified 08/06/24 16:20) GENERALIZED ALLERGY SYMPTOMS FROM [place] HPI HPI Gastro-esophageal reflux disease w/ esophagitis: Details: LAST VISIT Barretts esophagus GERD (gastroesophageal reflux disease) Constipation Abdominal bloating Dysphagia Gastroparesis Schatzki's ring Plan Patient continues to have epigastric pain with or without meals. Will send him script for lansoprazole daily. Avoid dietary triggers and late night snacking. Patient can continue taking sucralfate at bedtime. He is not able to move his bowels well we will start him on Linzess. Patient will increase fluid intake and activity to promote better bowel motility. Patient will follow-up in 6 weeks, sooner on as needed basis. He is agreeable to this plan and verbalizes understanding of instructions. He was given the opportunity to ask questions and all questions answered. ? Thank you for allowing me to participate in his care Medications New lansoprazole 30 mg PO DAILY 30 caps 3RF K21.9 linaclotide (Linzess) 145 mcg PO DAILY 30 caps 2RF TODAY'S VISIT Patient is here today for follow-up. He continues to have epigastric pain and acid reflux. Patient reports that he can taste the reflux, feels burning going all the way up his throat. Patient is taking lansoprazole states that it is helping more than any other PPIs that he was on. However he continues to have gastric pain and burning. Patient reports dyspepsia. He is taking Linzess, however continues to have trouble emptying his bowels. Currently on 145 mcg. Patient reports that he drinks fluids. Patient does not smoke cigarettes admits that the person that lives with him does not smoke cigarettes inside. Patient denies having any mold in the house. He was diagnosed with Barretts esophagus on endoscopy few months ago. Patient for breakfast this morning Mongolian muffin putting and Jell-O. Discussed with him the dose are purely carbs and no protein. He is diabetic and all that he ate was carbs and sugar. Patient reports occasional nausea. Has been seen in the ER for seizures. Sees Dr. Powers who is referring him to [facility] neuro specialist. His blood sugars are not well controlled. His asthma also is not well controlled. He is taking rescue inhalers few times a day [facility] Medical History Uvulitis Claustrophobia Takotsubo cardiomyopathy Schatzki's ring Gastritis Sleep apnea Diabetes Gastroparesis Migraine headache with aura Enlarged liver Postoperative hypothyroidism Thyroid cancer Vitamin D deficiency Multinodular thyroid Seizures ABPA (allergic bronchopulmonary aspergillosis) Myocardial infarct Seizures Asthma Surgical History S/P total thyroidectomy History of esophagogastroduodenoscopy (EGD) S/P removal of thyroid nodule History of cholecystectomy Family History Maternal Grandmother Emphysema, unspecified Father Diabetes Mother No problems noted. Paternal Grandfather Liver cancer Colon cancer Social History Household Members: Family Housing: Apartment Are you a primary career law clerk to a significant other at home: No Do you presently have visiting nurse or other home services: No Alcohol intake: never Comment: has poor balance Patient Tobacco Use Status: Never used Tobacco e-Cigarette/Vaping Use: Never Used Second Hand Smoke Exposure: No Substance Use Type: Marijuana Advance Directives Date on File: 05/20/23 service: No Current occupational status: disabled Current occupation: rt handed Cognitive needs: No Hearing needs: No Vision needs: No Physical Exam Vital Signs: Last Vital Signs Pulse 108 H 08/06/24 16:20 BP 144/72 H 08/06/24 16:20 Pulse Ox 95 08/06/24 16:20 Oxygen Delivery Method Room Air 08/06/24 16:20 BMI result Body Mass Index 26.6 Assessment & Plan Assessment & Plan (1) Barretts esophagus: Code(s): K22.70 - Ramirez's esophagus without dysplasia Category: Medical Qualifiers: Ramirez's esophagus type: without dysplasia Qualified Code(s): K22.70 - Ramirez's esophagus without dysplasia (2) GERD (gastroesophageal reflux disease): Code(s): K21.9 - Gastro-esophageal reflux disease without esophagitis Category: Medical Qualifiers: Esophagitis presence: esophagitis presence not specified Qualified Code(s): K21.9 - Gastro-esophageal reflux disease without esophagitis (3) Constipation: Code(s): K59.00 - Constipation, unspecified Category: Medical Qualifiers: Constipation type: slow transit constipation Qualified Code(s): K59.01 - Slow transit constipation (4) Abdominal bloating: Code(s): R14.0 - Abdominal distension (gaseous) Category: Medical (5) Dysphagia: Code(s): R13.10 - Dysphagia, unspecified Category: Medical Qualifiers: Dysphagia type: pharyngoesophageal phase Qualified Code(s): R13.14 - Dysphagia, pharyngoesophageal phase (6) Gastroparesis: Code(s): K31.84 - Gastroparesis Category: Medical (7) Schatzki's ring: Code(s): K22.2 - Esophageal obstruction Plan Patient will continue lansoprazole daily. Will start taking sucralfate twice a day at 14:00 and bedtime. Referral to dietitian to help with diet. Patient is not eating enough protein and is eating too much carbs and sugars. Also discussed with him low FODMAP diet. Stay away from lactose and gluten. Patient was encouraged to avoid dietary triggers and late night snacking. Staying upright for minimum 3 hours after meals discussed with patient. Patient will increase Linzess to 290 mcg daily. Increase fluid intake and activity to promote better bowel motility. Follow-up in the office in 2 months, sooner on as needed basis. He is agreeable to this plan and verbalizes understanding of instructions. He was given the opportunity to ask questions and all questions answered. Thank you for allowing me to participate in his care Orders: Referrals Multilith Operator Nutrition Referral E11.65 - Type 2 diabetes mellitus with hyperglycemia, K21.9 - Gastro-esophageal reflux disease without esophagitis, K29.30 - Chronic superficial gastritis without bleeding Medications: New sucralfate 1 g PO BID 60 tabs 2RF K21.9 - Gastro-esophageal reflux disease without esophagitis linaclotide (Linzess) 290 mcg PO QAM 30 caps 4RF K59.00 - Constipation, unspecified Discontinued linaclotide (Linzess) Discontinued Reason: Doctor's Order 145 mcg PO DAILY 30 caps 2RF Coding Level of Care Code Est Pt Level 4 (81854) Diagnoses Ramirez's esophagus without dysplasia K22.70 Ramirez's esophagus type: without dysplasia Gastroesophageal reflux disease, unspecified whether esophagitis present K21.9 Esophagitis presence: esophagitis presence not specified Slow transit constipation K59.01 Constipation type: slow transit constipation Abdominal bloating R14.0 Pharyngoesophageal dysphagia R13.14 Dysphagia type: pharyngoesophageal phase Gastroparesis K31.84 Schatzki's ring K22.2 Time Spent (min) 40 Comment 25 minutes spent with patient and additional 15 minutes spent reviewing his records
[2024-08-06 16:20] VITALS: BP 144/72; PULSE 108; O2SAT 95; BMI 26.6
== END 2024-08-06 17:00 ==
PROVIDERS: PCP Physician Assistant; Visit Provider Nurse Practitioner Family
DX: K22.70 Barrett's esophagus without dysplasia (principal); K21.9 Gastro-esophageal reflux disease without esophagitis; K59.01 Slow transit constipation; R14.0 Abdominal distension (gaseous); R13.14 Dysphagia, pharyngoesophageal phase; K31.84 Gastroparesis; K22.2 Esophageal obstruction
CPT/HCPCS: 99214

== ENCOUNTER → 2024-08-06 16:17 | Outpatient (BNVA) | payer OTHER, SELFPAY | PROVIDERS: PCP Physician Assistant; Visit Provider Nurse Practitioner Family | DX: K22.70 Barrett's esophagus without dysplasia (principal); K21.9 Gastro-esophageal reflux disease without esophagitis; K59.01 Slow transit constipation; K31.84 Gastroparesis; K22.2 Esophageal obstruction; R14.0 Abdominal distension (gaseous); R13.14 Dysphagia, pharyngoesophageal phase | CPT/HCPCS: 99212 ==

== ENCOUNTER 2024-08-11 10:39 | Outpatient (REF) | payer OTHER, SELFPAY ==
[2024-08-11 12:49] LABS: Free T4 (Free Thyroxine) 1.85 ng/dL (0.71-1.85); Thyroid Stimulating Hormone < 0.01 uIU/mL (0.32-4.0)
== END 2024-08-11 10:40 | disposition home or self-care (01) ==
LOC: HO.LAB 10:39
PROVIDERS: PCP Physician Assistant; Visit Provider Student in an Organized Health Care Education/Training Program
DX: E89.0 Postprocedural hypothyroidism (principal); C73 Malignant neoplasm of thyroid gland
CPT/HCPCS: 36415; 84439; 84443; 99212

== ENCOUNTER 2024-08-11 10:39 | Outpatient (AMB) | payer OTHER, SELFPAY ==
--- NOTE | 2024-08-11 10:41 | A.OFFVIS_ITS ---
Vital Signs 3 08/11/24 10:46 Height 5 ft 5 in Weight 162 lb 7.691 oz BMI 27.0 BP 138/82 Blood Pressure Location Rt brachial Position Sitting Pulse 98 Pulse Source Pulse Oximeter Intake Visit Reasons: Hypothyroidism-confirmed Intake Note: Patient present today for Hypothyroidism follow up visit. [employer] Supervisor Required: No Accompanied by: Self / Same As Patient Allergies cat dander [CATS] Allergy (Mild, Verified 08/11/24 10:48) GENERALIZED ALLERGY SYMPTOMS dog dander [DOGS] Allergy (Mild, Verified 08/11/24 10:48) GENERALIZED ALLERGY SYMPTOMS tree and shrub pollen [TREE] Allergy (Mild, Verified 08/11/24 10:48) GENERALIZED ALLERGY SYMPTOMS FROM [place] Medication List - Last Reconciled 08/11/24 by Racquel Salazar MD aspirin 81 mg PO DAILY 90 days atorvastatin 40 mg PO BEDTIME 90 days bisacodyl (Dulcolax (bisacodyl)) 10 mg (2 x 5 mg) PO BEDTIME Carafate (sucralfate) 10 mL PO BEDTIME NS carvedilol 3.125 mg PO BID 90 days cholecalciferol (vitamin D3) 100 mcg (2 x 50 mcg (2,000 unit)) PO DAILY 90 days clobazam 5 mg PO BID dupilumab (Dupixent) 300 mg (2 mL) subcut Q2W 28 days gabapentin 300 mg PO BEDTIME PRN 30 days guaifenesin ER 600 mg PO BID hydroxyzine HCl 25 mg PO BEDTIME lacosamide mg PO lansoprazole 30 mg PO DAILY linaclotide (Linzess) 290 mcg PO QAM lisinopril 10 mg PO DAILY 90 days metformin ER 500 mg PO DAILY 90 days montelukast 10 mg PO BEDTIME 90 days nystatin 5 mL PO DAILY PRN 30 days oxcarbazepine (Trileptal) 300 mg PO BID oxcarbazepine 600 mg PO BID sertraline 100 mg PO DAILY 90 days [Sharps container As directed] sucralfate 1 g PO BID Synthroid (levothyroxine) 25 mcg PO DAILY NS Synthroid (levothyroxine) 200 mcg PO DAILY NS theophylline ER 200 mg (1/2 x 400 mg) PO DAILY tiotropium bromide 2.5 mcg/actuation (Spiriva Respimat) 2 puffs PO DAILY PRN Ventolin HFA 90 mcg/actuation (albuterol sulfate) 2 puffs PO Q6H PRN NS HPI Comments Details: 43-year-old male with past medical history of seizure disorder, who is seen today for follow up of 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 JAMIR indeterminate response to therapy History of PTC in detail 11/06/2020: Diagnosed with multinodular thyroid 06/16/2021: FNA of right midpole 1.2 cm thyroid nodule with cytology revealing atypia of undetermined significance ([place] category 3). Afirma was suspicious, and an HRAS mutation was present with a 75% risk of malignancy 11/21/2021: Underwent total thyroidectomy with Dr. Yunior Carlos, pathology revealed classic PTC, multifocal with 3 foci (right upper 1.1 cm, right mid of 0.5 cm and left mid 0.6 cm). No angioinvasion, no lymphatic invasion, no mg neural invasion. Margins were negative. 0/3 lymph nodes examined positive for Mets. Calcified as AJCC stage I, pT1b N0. JAMIR low risk of recurrence. 02/2022: Opted for I 131 ablation which was to be completed via Thyrogen stimulation. However unfortunately after receiving his 1st dose of Thyrogen, he developed chest pressure and was hospitalized for cardiac concerns. Cardiac workup was negative but during the hospitalization he had multiple seizures. 03/15/2022 labs showed TSH 50.8, TG 0.6, TG antibody less than 1 11/22/2022: Ultrasound head and neck: Identified multiple right neck lymph nodes at level 2 and 4 with normal architecture, with right level 2 lymph node measuring up to 2.1 cm. Left neck level 2 and level 4 lymph node also identified with normal architecture measuring up to 2.1 cm in level 2. 04/23/2023: TSH 49.3, no thyroglobulin done, unclear last TSH was so high, does not seem like Thyrogen was administered, patient does not remember but maybe he was not on levothyroxine during this time 10/01/2023: TSH 69.2, TG 4.6, TG antibody less than 1, I do not see a whole-body scan system, likely thyroid hormone withdrawal 01/08/2024: TSH 1.51, free T4 1.08 04/14/2024: TSH 0.11, free T4 0.96 Interval history 05/15/2024: Ultrasound neck showed bilateral normal-looking cervical lymph nodes, no abnormal lymph nodes identified. 05/09/2024 labs TSH of 2.62 with free T4 of 0.88, thyroglobulin 0.7 TG antibody less than 1 levo increased from 200 to 225 05/15/24 Currently continues with difficulty swallowing, thats has been longstanding. No voice chnages . HE does report a new pressure sensation in the right neck that is improving now but happened over the last week. Has intermittent palpitations not too bothersome. Has tremors associate dwith seizures but not at rest. He continues with having hospitalizations for repeated seizures. Never smoker No family history of thyroid cancer No history of head or neck radiation Review of systems Constitutional: no fevers, chills or weight loss HEENT: no changes in vision Cardiac: No chest pain, discomfort or palpitations. Pulmonary: No SOB GI:No abdominal pain, no nausea or vomiting, no anorexia, no blood in stool : no burning micturition, dysuria or increase in urinary frequency Physical exam General: sitting comfortably in bed in no acute distress HEENT: normocephalic/atraumatic, moist oral mucosa Neck: supple, symmetrical, no thyromegaly , no dorsocervical or supraclavicular fat pads Cardiac: normal heart sounds Pulm: normal breath sounds B/L, no added breath sounds Abd: not distended, no tenderness Extremities: no edema, no signs of myxedema Laboratory Tests 01/11/21 01/11/21 12/06/21 06:45 06:45 06:32 TSH 1.13 1.18 11.81 H Free T4 1.06 0.95 Thyroglobulin Thyroglobulin Antibody 12/06/21 01/18/22 01/19/22 06:32 06: 10:00 TSH 13.96 H 1.46 1.23 Free T4 1.15 Thyroglobulin <0.1 L Thyroglobulin Antibody 03/15/22 07/27/22 11/27/22 06:07 06:24 07:32 TSH 50.80 H 0.45 0.05 L Free T4 1.16 1.52 1.31 Thyroglobulin 0.6 L <0.1 L Thyroglobulin Antibody <1 <1 05/04/23/23 05/11/23 07:03 06:27 06:15 TSH 11.83 H 49.31 H 0.07 L Free T4 1.14 0.83 1.87 H Thyroglobulin 0.5 H 0.2 H Thyroglobulin Antibody <1 <1 10/01/23 10/01/23 01/08/24 06:37 06:37 06:29 TSH 55.33 H 69.20 H 1.51 Free T4 1.19 1.08 Thyroglobulin 4.6 H Thyroglobulin Antibody <1 04/14/24 05/09/24 07:06 14:33 TSH 0.11 L 2.62 Free T4 0.96 0.88 Thyroglobulin 0.7 L Thyroglobulin Antibody <1 US SOFT TISSUE OF THE NECK 05/15/24 CLINICAL INFORMATION: Malignant neoplasm of thyroid gland. Status post thyroidectomy. COMPARISON: None available. TECHNIQUE: Linear transducer grayscale and color Doppler examination of the thyroid bed and surrounding soft tissue. FINDINGS: Redemonstration of bilateral cervical lymph nodes. Right cervical lymph nodes: Level 2 measuring 1.5 and 0.5 x 1.9 cm, previously measured 2.1 x 0.7 x 1.8 cm. Normal in morphology. Level 3 measuring 9 x 4 x 5 mm, previously measured 9 x 4 x 7 mm. Normal in morphology. Level VA measuring 8 x 6 x 5 mm, not seen on prior study. Normal in morphology. Left cervical lymph nodes: Level 3:7 x 2 x 6 mm, no definite fatty hilum. Level 4:10 x 5 x 4 mm, normal in morphology. US/US soft tiss head and/or neck IMPRESSION: Redemonstration of bilateral cervical lymph nodes, none of which are pathologically enlarged. There is a left level 3 lymph node measuring 7 x 2 x 6 mm, no definite fatty hilum. Recommend management pharmacologic protocol. Electronically signed by: Yvonne Mejia MD 05/20/2024 02:58 PM EDT US SOFT TISSUE HEAD/NECK 11/22/22 CLINICAL INFORMATION: Malignant neoplasm of thyroid gland. COMPARISON: Ultrasound soft tissue head/neck 06/27/2022. TECHNIQUE: Linear transducer grayscale and color Doppler examination of the thyroid bed and surrounding soft tissue. FINDINGS: RIGHT NECK: 1. Level 2 lymph node measures 2.1 x 0.7 x 1.8 cm. It has a normal architecture. 2. Level 2 lymph node measures 0.9 x 0.4 x 0.4 cm and has normal architecture. Previously it measured 0.6 x 0.2 x 0.3 cm. 3. Level 2 lymph node measures 0.7 x 0.3 x 0.4 cm. It is new and has normal architecture. 4. Level 4 lymph node measures 0.6 x 0.3 x 0.6 cm and has normal architecture. Previously measured 0.6 x 0.2 x 0.3 cm. LEFT NECK: 1. Level 2 lymph node measures 1.7 x 0.7 x 2.1 cm. It has normal architecture. Previously it measured 1.8 x 0.6 x 0.8 cm. 2. Level 4 lymph node measures 1.1 x 0.5 x 0.6 cm. It has normal architecture. Previously it measured 0.7 x 0.5 x 0.5 cm US/US soft tiss head and/or neck IMPRESSION: Benign-appearing bilateral neck lymph nodes as described above. US SOFT TISSUE HEAD/NECK 06/27/22 CLINICAL INFORMATION: Malignant neoplasm of thyroid gland. COMPARISON: US-guided thyroid biopsy 06/16/2021. TECHNIQUE: Linear transducer grayscale and color Doppler examination of the thyroid bed and surrounding soft tissue. FINDINGS: No residual thyroid tissue or thyroid nodule is seen. There are bilateral normal-appearing cervical lymph nodes. The demonstrate normal ultrasound morphology and flow. Right level II measuring 1.2 x 0.5 x 0.4 cm, right level III measuring 0.6 x 0.3 x 0.4 cm and right level IV measuring 0.6 x 0.2 x 0.3 cm. Left level II measuring 1.8 x 0.6 x 0.8 cm, left level V measuring 0.7 x 0.5 x 0.5 cm and left level IV measuring 0.3 x 0.3 x 0.3 cm. US/US soft tiss head and/or neck IMPRESSION: Bilateral normal-appearing lymph nodes. No residual thyroid tissue seen. [facility] Medical History Uvulitis Claustrophobia Takotsubo cardiomyopathy Schatzki's ring Gastritis Sleep apnea Diabetes Gastroparesis Migraine headache with aura Enlarged liver Postoperative hypothyroidism Thyroid cancer Vitamin D deficiency Multinodular thyroid Seizures ABPA (allergic bronchopulmonary aspergillosis) Myocardial infarct Seizures Asthma Surgical History S/P total thyroidectomy History of esophagogastroduodenoscopy (EGD) S/P removal of thyroid nodule History of cholecystectomy Family History Maternal Grandmother Emphysema, unspecified Father Diabetes Mother No problems noted. Paternal Grandfather Liver cancer Colon cancer Social History Household Members: Family Housing: Apartment Are you a primary customer care agent to a significant other at home: No Do you presently have visiting nurse or other home services: No Alcohol intake: never Comment: has poor balance Patient Tobacco Use Status: Never used Tobacco e-Cigarette/Vaping Use: Never Used Second Hand Smoke Exposure: No Substance Use Type: Marijuana Advance Directives Date on File: 05/20/23 service: No Current occupational status: disabled Current occupation: rt handed Cognitive needs: No Hearing needs: No Vision needs: No Assessment & Plan Assessment & Plan (1) Hypothyroidism: Code(s): E03.9 - Hypothyroidism, unspecified Category: Medical Qualifiers: Hypothyroidism type: postoperative Qualified Code(s): E89.0 - Postprocedural hypothyroidism Plan: His TSH goal would be 0.1-0.5. 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 JAMIR low risk of recurrence b ased on no angioinvasion, no lymphatic invasion, negative margins, 0/3 lymph nodes examined. Subsequently patient has not received CALLEJAS therapy given poor reaction to Thyrogen. Since he was unable to tolerate Thyrogen, it was mutually decided between him and his past physicians that we will follow him up with surveillance ultrasounds and thyroglobulin markers to monitor for recurrence. His most recent ultrasound was from 04/2024 did not show any abnormal lymph nodes. Since his stimulated thyroglobulin postoperatively was 0.6, this was very reassuring for being JAMIR low risk of recurrence as well. His unstimulated thyroglobulin subsequently has remained in the range of 0.2- 0.5, and his labs from October 10 show stimulated thyroglobulin of 4.6 when his TSH was 69.2, classifying him as JAMIR indeterminate response to therapy. most recently 05/09/2024 labs TSH of 2.62 with free T4 of 0.88, thyroglobulin 0.7 TG antibody less than 1 In indeterminate response, 15% to 20% we will have structural disease identified during follow-up, however in the remainder of the nonspecific changes are either stable or resolved, less than 1% have disease specific We can consider doing a whole-body scan but that would involve levothyroxine withdrawal, which might have severe adverse effects for him. For now we will continue to follow him with repeat thyroid ultrasounds for structural recurrence as well as trending his thyroglobulin tumor markers. His TSH goal would be 0.1-0.5. Most recent labs from 05/09/2024 labs TSH of 2.62 with free T4 of 0.88, thyroglobulin 0.7 TG antibody less than 1, and we change levothyroxine from 200 to 225 mcg daily. Plan: -TSH and free T4 to be done now and we will adjust levothyroxine according to TSH goal -goal TSH 0.1-0.5 -next set of thyroglobulin tumor markers would be due in 6 months from last in 10/2024 -next neck ultrasound 12 months from the last 1 in 04/2025 -follow up in 05/2025 Plan I spent 30 minutes in reviewing the record, seeing the patient and documenting in the medical record. Orders: Orders 2 Thyroglobulin Antibodies 10/20/24 C73 - Malignant neoplasm of thyroid gland Free T4 (Free Thyroxine) 10/20/24 C73 - Malignant neoplasm of thyroid gland Thyroid Stimulating Hormone Today C73 - Malignant neoplasm of thyroid gland, E89.0 - Postprocedural hypothyroidism Free T4 (Free Thyroxine) Today C73 - Malignant neoplasm of thyroid gland, E89.0 - Postprocedural hypothyroidism US soft tiss head and/or neck 04/20/25 C73 - Malignant neoplasm of thyroid gland Thyroid Stimulating Hormone 10/20/24 C73 - Malignant neoplasm of thyroid gland Thyroglobulin Tumor Marker 10/20/24 C73 - Malignant neoplasm of thyroid gland Thyroglobulin 10/20/24 C73 - Malignant neoplasm of thyroid gland Patient Instructions: Do blood work today Our office will give you a call if thyroid medication needs to be adjusted but for now continue Synthroid 225 ( 200 plus 25 mcg pills ) mcg daily Do blood work again in October 2024 for tumor markers, we will call at that time with results Do neck ultrasound in April 2025, someonw will call you to schedule this Next follow up with me in May 2025 Coding Level of Care Code Est Pt Level 4 (29533) Complex EM visit Add On G2211 Diagnoses Postoperative hypothyroidism E89.0 Hypothyroidism type: postoperative Thyroid cancer C73 Time Spent (min) 30
[2024-08-11 10:46] VITALS: BP 138/82; PULSE 98; BMI 27.0
== END 2024-08-11 11:12 | disposition home or self-care (01) ==
PROVIDERS: PCP Physician Assistant; Visit Provider Student in an Organized Health Care Education/Training Program
DX: E89.0 Postprocedural hypothyroidism (principal); C73 Malignant neoplasm of thyroid gland
CPT/HCPCS: 99214; G2211

== ENCOUNTER → 2024-08-21 08:19 | Outpatient (REF) | payer OTHER, SELFPAY ==
--- NOTE | 2024-08-21 08:23 | CA_ITS ---
Acquisition Time: 2024-08-21 08:38:51 Total Exercise Time: 00:02:42 Test Indications: CP Medications: SEE H Protocol: HAMILTON Max HR: 114 BPM 64% of Pred: 176 BPM Max BP: 134/068 mmHG Max Work Load: 4.6 METS Exercise Stress Test with exercise 2 mins 42 secs of Hamilton Protocol, achieving 62% MPHR, with dizziness and SOB requesting to stop, with no change to baseline chest discomfort, without any arrythmias, with normotensive response to exercise. EKG nondiagnostic for ischemia. In recovery, pt's breathing back to baseline after using his inhaler, and dizziness resolved. Unable to use Lexiscan due to seizure history. Will notify PCP. REcommendation for Dobutamine Nuclear Stress Test. Test reviewed with Dr. Marrouqin. Referred By: Saúl Maier Overread By: GRETEL HOOPER
--- OUTSIDE RECORDS SUMMARY | 2024-08-26 23:53 | XMS_ITS | Continuity of Care Document ---
Author Organization [facility] Address [address], [address] d Floor, [address] [place] [id number]- Care Team Providers Care Emts Name Role Phone Saúl Ellington Primary Care Physician Encounter [facility] [place] [facility] ACCT R [id number] Date(s): 07/21/24 - 08/20/24 [facility] [address] [place] [address] 3rd Floor, [address] [place] [id number] Encounter Type: Triage Allergies, Adverse Reactions, Alerts No Known Allergies Medications albuterol 0.083% inhalation solution 3 mL = 2.5 mg, Inhalation, Every 6 hours, PRN Dyspnea, # 120 each, 0 Refills, Maintenance, 01/13/18 2:10:35 PM EDT, Solution Start Date: 01/13/18 Status: Ordered Quantity: 120.0 Unit: each Repeat number: 1 aspirin 81 mg oral tablet, chewable 81 mg, By Mouth, Daily, # 30 tablet, Refills 11, Tot. Refills 11, Maintenance, 01/15/18 5:21:10 PM EDT, Route to Pharmacy Electronically, [facility] [id number] Start Date: 01/15/18 Stop Date: 01/10/19 Status: Ordered Quantity: 30.0 Unit: tablet Repeat number: 12 atorvastatin 40 mg oral tablet = 40 mg, By Mouth, Daily at bedtime, # 30 tablet, 3 Refills, Maintenance, Tablet, Route to PharmacyElectronically, [id number], [facility] [id number] Start Date: 01/15/18 Stop Date: 05/15/18 Status: Ordered Quantity: 30.0 Unit: tablet Repeat number: 4 calcium carbonate 500 mg (200 mg elemental calcium) oral tablet, chewable 1,000 mg, 2, tablet, Chew, 3 times a day, # 84 tablet, Refills 0, Tot. Refills 0, Maintenance, 12/01/21 2:50:00 PM EDT, Route to Pharmacy Electronically, [facility]/pharmacy #[id number], Partial fill upon patient request if the prescription is for a schedule II opioid drug., 165, cm, 12/01/21 11:45:00 EDT, Height, 77.6, kg, 11/21/21 11:27:00 EST, Dry Weight Start Date: 12/01/21 Stop Date: 12/15/21 Status: Ordered Quantity: 84.0 Unit: tablet Repeat number: 1 carvedilol 3.125 mg oral tablet 3.125 mg, 1, tablet, By Mouth, 2 times a day, # 60 tablet, Refills 0, Maintenance, 06/01/20 2:58:00 PM EDT Start Date: 06/01/20 Status: Ordered Quantity: 60.0 Unit: tablet Repeat number: 1 cholecalciferol 2000 intl units oral tablet 1 tablet = 50 mcg, By Mouth, Daily, # 14 tablet, 0 Refills, Maintenance, 12/01/21 2:50:00 PM EDT, Tablet, [facility]/pharmacy #[id number], Partial fill upon patient request if the prescription is for a schedule IIopioid drug., 165, cm, 12/01/21 11:45:00 EDT, Height, 77.6, kg, 11/21/21 11:27:00 EST, Dry Weight Start Date: 12/01/21 Stop Date: 12/15/21 Status: Ordered Quantity: 14.0 Unit: tablet Repeat number: 1 clobazam 10 mg oral tablet = 5 mg, By Mouth, 2 times a day, 1/2 pill twive a day, # 30 tablet, 5 Refills, Maintenance, 11/17/23 11:45:00 AM EST, Tablet, [facility]/pharmacy #[id number], 163, cm, 11/16/23 14:28:00 EST, Height, 77.7, kg, 11/12/23 10:58:00 EST, Dry Weight Start Date: 11/17/23 Stop Date: 05/15/24 Status: Ordered Quantity: 30.0 Unit: tablet Repeat number: 6 cyclobenzaprine 10 mg oral tablet 10 mg, 1, tablet, By Mouth, 3 times a day, PRN, as needed three times a day for chest pain/ spasm, # 40 tablet, Refills 0, Tot. Refills 0, Maintenance, Spasm, 03/18/22 12:40:00 PM EDT, Route to Pharmacy Electronically, [facility]/pharmacy #[id number], Partial fill upon patient request if the prescription is for aschedule II opioid drug., 165, cm, 03/18/22 12:20:00 EDT, Height, 77.6, kg, 03/15/22 15:58:00 EDT, Dry Weight Start Date: 03/18/22 Status: Ordered Quantity: 40.0 Unit: tablet Repeat number: 1 FLUoxetine 20 mg oral capsule 20 mg, 1, capsule, By Mouth, Daily, # 30 capsule, Refills 0, Maintenance, 10/26/21 9:52:00 AM EST, Partial fill upon patient request if the prescription is for a schedule II opioid drug. Start Date: 10/26/21 Status: Ordered Quantity: 30.0 Unit: capsule Repeat number: 1 lacosamide 100 mg oral tablet 1 tablet = 100 mg, By Mouth, 2 times a day, # 60 tablet, 5 Refills, Maintenance, 05/07/24 10:03:00 AM EDT, Tablet, [facility]/pharmacy #[id number], 166, cm, 05/05/24 10:16:00 EDT, Height, 78, kg, 05/05/24 10:16:00EDT, Dry Weight Start Date: 05/07/24 Status: Ordered Quantity: 60.0 Unit: tablet Repeat number: 6 levothyroxine 175 mcg (0.175 mg) oral tablet 1 tablet = 175 mcg, By Mouth, Daily, # 30 tablet, 0 Refills, Maintenance, 03/18/22 12:37:00 PM EDT, Tablet, Partial fill upon patient request if the prescription is for a schedule II opioid drug. Start Date: 03/18/22 Status: Ordered Quantity: 30.0 Unit: tablet Repeat number: 1 lidocaine 5% topical film 1 patch, Topically, Daily, apply to chest remove patches after 12 hours, # 14 patch, 0 Refills, Maintenance, 03/18/22 12:43:00 PM EDT, Patch, [facility]/pharmacy #[id number], Partial fill upon patient request if the prescription is for a schedule II opioid drug., 1 patch Topically Daily,Instr:apply to chest ; remove patches after 12 hours, 165, cm, 03/18/22 12:20:00 EDT, Height, 77.6, kg, 03/15/22 15:58:00 EDT,Dry Weight Start Date: 03/18/22 Status: Ordered Quantity: 14.0 Unit: patch Repeat number: 1 lisinopril 10 mg oral tablet 10 mg, 1, tablet, By Mouth, Daily, # 30 tablet, Refills 0, Maintenance, 03/15/22 10:49:00 PM EDT, Partial fill upon patient request if the prescription is for a schedule II opioid drug. Start Date: 03/15/22 Status: Ordered Quantity: 30.0 Unit: tablet Repeat number: 1 Nucala Prefilled Syringe 100 mg/mL subcutaneous solution once a month, 0 Refills, Maintenance, 10/26/21 9:52:00 AM EST, Partial fill upon patient request if the prescription is for a schedule II opioid drug. Start Date: 10/26/21 Status: Ordered Repeat number: 1 nystatin 751104 u/ml oral suspension 4 mL = 400,000 units, By Mouth, 4 times a day, PRN Other, as needed for oral thrush, 0 Refills, Maintenance, 06/01/20 2:57:00 PM EDT Start Date: 06/01/20 Status: Ordered Repeat number: 1 OXcarbazepine 600 mg oral tablet 1 tablet = 600 mg, By Mouth, 2 times a day, # 60 tablet, 11 Refills, Maintenance, 11/17/23 11:47:00 AM EST, Tablet, [facility]/pharmacy #[id number], 163, cm, 11/16/23 14:28:00 EST, Height, 77.7, kg, 11/12/23 10:58:00 EST, Dry Weight Start Date: 11/17/23 Status: Ordered Quantity: 60.0 Unit: tablet Repeat number: 12 pantoprazole 40 mg oral delayed release tablet 1 tablet = 40 mg, By Mouth, Daily, # 30 tablet, 0 Refills, Maintenance, 10/26/21 9:52:00 AM EST, EC Tablet Start Date: 10/26/21 Status: Ordered Quantity: 30.0 Unit: tablet Repeat number: 1 predniSONE 10 mg oral tablet See Instructions, take 5 tabs daily for 2 days, then 4 tabs daily for 2 days, then 3 tabs daily for2 days, then 2 tabs daily for 2 days, then 1 tab daily for 2 days then stop, # 30 tablet, 0 Refills, Maintenance, 03/18/22 12:38:00 PM EDT, Tablet, [facility]/pharmacy #[id number], Partial fill upon patient requestif the prescription is for a schedule II opioid drug., 165, cm, 03/18/22 12:20:00 EDT, Height, 77.6, kg, 03/15/22 15:58:00 EDT, Dry Weight Start Date: 03/18/22 Status: Ordered Quantity: 30.0 Unit: tablet Repeat number: 1 Singulair 10 mg oral tablet 10 mg, 1, tablet, By Mouth, Daily in PM, # 30 tablet, Refills 0, Maintenance, 01/13/18 2:10:53 PM EDT Start Date: 01/13/18 Status: Ordered Quantity: 30.0 Unit: tablet Repeat number: 1 Spiriva Respimat 10 ACT 2.5 mcg/inh inhalation aerosol 2 puffs, Inhalation, Daily, 0 Refills, Maintenance, 06/01/20 3:00:00 PM EDT Start Date: 06/01/20 Status: Ordered Repeat number: 1 theophylline 400 mg/24 hours oral tablet, extended release 0.5 tablet = 200 mg, By Mouth, Every 12 hours, # 60 tablet, 0 Refills, Maintenance, 10/26/21 9:52:00 AM EST, ER Tablet, Partial fill upon patient request if the prescription is for a schedule II opioiddrug. Start Date: 10/26/21 Status: Ordered Quantity: 60.0 Unit: tablet Repeat number: 1 Tylenol 325 mg oral tablet 650 mg, 2, tablet, By Mouth, Every 4 hours, Refills 0, Maintenance, 11/21/21 2:54:00 PM EST, Partial fill upon patient request if the prescription is for a schedule II opioid drug. Start Date: 11/21/21 Status: Ordered Repeat number: 1 Ventolin 90 mcg Inhaler 2, puffs, Inhalation, Every 4 hours, PRN, Refills 0, Maintenance, 01/13/18 2:06:19 PM EDT, Inhaler Start Date: 01/13/18 Status: Ordered Repeat number: 1 Zoloft 100 mg oral tablet 1 tablet = 100 mg, By Mouth, Daily, # 30 tablet, 0 Refills, Maintenance, 06/01/20 2:57:00 PM EDT, Tablet Start Date: 06/01/20 Status: Ordered Quantity: 30.0 Unit: tablet Repeat number: 1 Problem List Condition Confirmation Course Effective Dates Status H ealth Status Informant Asthma Confirmed Active Chronic insomnia Confirmed Active Daytime somnolence Confirmed Active Circadian dysregulation Confirmed Active GERD (gastroesophageal reflux disease) Confirmed Active Iatrogenic hypothyroidism Confirmed Active Anxiety and depression Confirmed Active Obstructive sleep apnea Confirmed Active Papillary thyroid carcinoma Confirmed Active Parasomnia Confirmed Active RLS (restless legs syndrome) Confirmed Active Seizures Confirmed Active Takotsubo cardiomyopathy Confirmed Active Social History Social History Type Response Smoking Status Never (less than 100 in lifetime) entered on: 11/12/23 Sex Sex Representation Male (finding) Patient Care team information Care Team Personnel Name: Gary Garcia RN Position: [facility] RN Member Role: Primary Care Nurse Name: Tiffanie Duncan RN Position: [facility] RN Member Role: Primary Care Nurse Name: Saúl Ellington Position: Reference Physician Member Role: PCP Address: [address] [facility] [address] [place] [address]- Telecom: Name: Evette Lebron RN Position: [facility] RN Member Role: Primary Care Nurse Name: Ernesto May RN Position: S RN Member Role: Primary Care Nurse Name: Evette Choudhary NP Position: [facility] PCO Associate Professional Member Role: Primary Care Nurse Address: [address] [place] [address]- Telecom: Name: Elizabeth Roth RN Position: [facility] RN Member Role: Primary Care Nurse Name: Yvan Leung MD Position: [facility] Renal MD Member Role: Lifetime Consulting Physician Address: [address] [facility] [address] [facility] [address] [facility], [place] [address]- Telecom: Name: Jeannette Garcia RN Position: [facility] RN Member Role: Primary Care Nurse Name: Kelsey Parra RN Position: [facility] RN Member Role: Primary Care Nurse Name: Karen Littlejohn RN Position: [facility] RN Member Role: Primary Care Nurse Name: Dominick Sinha RN Position: [facility] RN Member Role: Primary Care Nurse Name: Jennifer Crisostomo RN Position: [facility] RN Member Role: Primary Care Nurse Name: Janell Andres RN Position: [facility] RN Member Role: Primary Care Nurse Care Team Related Persons Name: TORIE MACKAY Name: KYLE MACKAY Insurance Providers Guarantor name: [facility] Information #: 1 Payer: [employer] Member Number: NA Policy Number: NA Group Number: NA
== END ==
LOC: HO.CARD 08:19
PROVIDERS: PCP Physician Assistant; Visit Provider Physician Assistant
DX: R07.2 Precordial pain (principal)
CPT/HCPCS: 93017

== ENCOUNTER → 2024-08-21 08:23 | Outpatient (BNV) | payer OTHER, SELFPAY | PROVIDERS: PCP Physician Assistant; Visit Provider Nurse Practitioner Family | DX: R06.02 Shortness of breath (principal) | CPT/HCPCS: 93016; 93018 ==

== ENCOUNTER 2024-09-22 08:45 | Outpatient (AMB) | payer OTHER, SELFPAY ==
[2024-09-22 08:52] VITALS: BP 124/66; PULSE 104; O2SAT 94
--- NOTE | 2024-09-22 08:52 | MHC.OFFVIS ---
Vital Signs 09/22/24 08:52 Weight 162 lb 0.636 oz BP 124/66 Blood Pressure Location Rt brachial Position Sitting Pulse 104 H Pulse Source Pulse Oximeter Pulse Oximetry (%) 94 Oxygen Delivery Method Room Air Intake Visit Reasons: Asthma Allergies cat dander [CATS] Allergy (Mild, Verified 09/22/24 08:55) GENERALIZED ALLERGY SYMPTOMS dog dander [DOGS] Allergy (Mild, Verified 09/22/24 08:55) GENERALIZED ALLERGY SYMPTOMS tree and shrub pollen [TREE] Allergy (Mild, Verified 09/22/24 08:55) GENERALIZED ALLERGY SYMPTOMS FROM PINE TREES Medication List - Last Reconciled 09/22/24 by Carmelita Amador LPN aspirin 81 mg PO DAILY 90 days atorvastatin 40 mg PO BEDTIME 90 days bisacodyl (Dulcolax (bisacodyl)) 10 mg (2 x 5 mg) PO BEDTIME Carafate (sucralfate) 10 mL PO BEDTIME NS carvedilol 3.125 mg PO BID 90 days cholecalciferol (vitamin D3) 100 mcg (2 x 50 mcg (2,000 unit)) PO DAILY 90 days clobazam 5 mg PO BID codeine-guaifenesin 10-100 mg/5 mL 10 mL PO Q4-6H PRN dupilumab (Dupixent) 300 mg (2 mL) subcut Q2W 28 days gabapentin 300 mg PO BEDTIME PRN 30 days guaifenesin ER 600 mg PO BID hydroxyzine HCl 25 mg PO BEDTIME lacosamide mg PO lansoprazole 30 mg PO DAILY levofloxacin 750 mg PO DAILY linaclotide (Linzess) 290 mcg PO QAM lisinopril 10 mg PO DAILY 90 days metformin ER 500 mg PO DAILY 90 days montelukast 10 mg PO BEDTIME 90 days nystatin 5 mL PO DAILY PRN 30 days oxcarbazepine (Trileptal) 300 mg PO BID oxcarbazepine 600 mg PO BID prednisone 40 mg (2 x 20 mg) PO DAILY sertraline 100 mg PO DAILY 90 days [Sharps container As directed] sucralfate 1 g PO BID Synthroid (levothyroxine) 200 mcg PO DAILY NS Synthroid (levothyroxine) 12.5 mcg (1/2 x 25 mcg) PO DAILY NS theophylline ER 200 mg (1/2 x 400 mg) PO DAILY tiotropium bromide 2.5 mcg/actuation (Spiriva Respimat) 2 puffs PO DAILY PRN Ventolin HFA 90 mcg/actuation (albuterol sulfate) 2 puffs PO Q6H PRN NS HPI HPI Asthma: Details: 43-year-old gentleman, lifetime nonsmoker, followed for underlying severe persistent asthma, environmental allergies, and MEHNAZ on CPAP. He continues on Dupixent, Spiriva, Symbicort, Singulair, and albuterol MDI/nebs with suboptimal baseline control of his symptoms. Today complains of ongoing exacerbation for the last 2 weeks. Patient is waiting [facility] evaluation for possible bronchial thermoplasty. [facility] Medical History Uvulitis Claustrophobia Takotsubo cardiomyopathy Schatzki's ring Gastritis Sleep apnea Diabetes Gastroparesis Migraine headache with aura Enlarged liver Postoperative hypothyroidism Thyroid cancer Vitamin D deficiency Multinodular thyroid Seizures ABPA (allergic bronchopulmonary aspergillosis) Myocardial infarct Seizures Asthma Surgical History S/P total thyroidectomy History of esophagogastroduodenoscopy (EGD) S/P removal of thyroid nodule History of cholecystectomy Family History Maternal Grandmother Emphysema, unspecified Father Diabetes Mother No problems noted. Paternal Grandfather Liver cancer Colon cancer Social History Household Members: Family Housing: Apartment Are you a primary rn intensive care unit to a significant other at home: No Do you presently have visiting nurse or other home services: No Alcohol intake: never Comment: has poor balance Patient Tobacco Use Status: Never used Tobacco e-Cigarette/Vaping Use: Never Used Second Hand Smoke Exposure: No Substance Use Type: Marijuana Advance Directives Date on File: 05/20/23 service: No Current occupational status: disabled Current occupation: rt handed Cognitive needs: No Hearing needs: No Vision needs: No Review of Systems Const Denies daytime sleepiness, Denies excessive sweating, Denies fatigue, Denies fever(s), Denies lethargy, Denies malaise, Denies night sweats, Denies snoring and Denies weight loss Eyes Denies blurry vision and Denies itchy eyes ENT Denies nasal congestion, Denies post nasal drip, Denies sinus pain, Denies sinus pressure and Denies other ( Thrush) Card Denies chest pain, Denies pedal edema, Denies dyspnea, Reports dyspnea on exertion, Denies orthopnea and Denies paroxysmal nocturnal dyspnea Resp Denies cough, Denies hemoptysis, Denies excessive phlegm production, Denies dyspnea, Reports dyspnea on exertion, Denies snoring and Reports wheezing GI Denies abdominal pain and Denies heartburn Musc Denies myalgias, Denies arthralgias and Denies joint swelling Skin/Breast Denies rash Neuro Denies memory loss and Denies seizure-like activity Psych Denies abnormal sleep pattern, Denies anxiety and Denies memory loss Endo Denies excessive sweating, Denies fatigue and Denies heat intolerance Nico/Lymph Denies easy bruising Aller/Immun Denies itchy eyes, Denies seasonal rhinorrhea and Reports wheezing Physical Exam Vital Signs: Last Vital Signs Pulse 104 H 09/22/24 08:52 BP 124/66 09/22/24 08:52 Pulse Ox 94 09/22/24 08:52 Oxygen Delivery Method Room Air 09/22/24 08:52 Const General: no acute distress and alert Nutritional Appearance: not obese Orientation/consciousness: Other orientation findings ( oriented) HEENT Head: Yes atraumatic Eyes General: appearance normal, both eyes and all related structures Sclerae: sclerae normal EOM: EOMs intact bilaterally Neck Neck: Yes supple Lymphatic: no lymphadenopathy noted Resp Effort & Inspection: normal respiratory effort and no use of accessory muscles Auscultation: wheezes (Expiratory bilateral) Cardio Rate: regular rate Rhythm: regular rhythm Heart sounds: no gallops, no murmurs and no rubs Skin General skin exam: other ( warm) Extrem General: No clubbing, No cyanosis and No edema Assessment & Plan Assessment & Plan (1) Asthma: Code(s): J45.909 - Unspecified asthma, uncomplicated Category: Medical Qualifiers: Asthma complication type: uncomplicated Asthma persistence: persistent Asthma severity: moderate Qualified Code(s): J45.40 - Moderate persistent asthma, uncomplicated Plan: Suboptimal control despite essentially maximum therapy with Dupixent, Spiriva, Symbicort, Singulair, theophylline, duo nebs, and albuterol MDI. Will add air supra. Will treat acute exacerbation with a prednisone taper. Patient is awaiting evaluation at [facility] for possible bronchial thermoplasty. (2) Environmental allergies: Code(s): Z91.09 - Other allergy status, other than to drugs and biological substances Category: Medical Plan: Improved control on Dupixent. Continue Dupixent and Singulair. Medications: New albuterol-budesonide 90-80 mcg/actuation (Airsupra) 2 inhalations inhalation TID PRN 10.7 grams 6RF shortness of breath prednisone Take 4 tabs daily for 5 days, then go down by 1 tab every 5 days 10 mg PO DIRECTED 50 tabs 0RF Refilled Ventolin HFA 90 mcg/actuation (albuterol sulfate) 2 puffs PO Q6H PRN 3 ea 4RF for dyspnea NS J45.50 - Severe persistent asthma, uncomplicated Coding Level of Care Code Est Pt Level 4 (25988) Complex EM visit Add On G2211 Diagnoses Moderate persistent asthma without complication J45.40 Asthma complication type: uncomplicated Asthma persistence: persistent Asthma severity: moderate Environmental allergies Z91.09
== END 2024-09-22 09:04 | disposition home or self-care (01) ==
PROVIDERS: PCP Physician Assistant; Visit Provider Internal Medicine Pulmonary Disease
DX: J45.40 Moderate persistent asthma, uncomplicated (principal); Z91.09 Other allergy status, other than to drugs and biological substances
CPT/HCPCS: 99214; G2211

== ENCOUNTER 2024-09-30 06:56 | Outpatient (REF) | payer OTHER, SELFPAY ==
[2024-09-30 09:42] LABS: Free T4 (Free Thyroxine) 1.96 ng/dL (0.71-1.85); Thyroid Stimulating Hormone < 0.01 uIU/mL (0.32-4.0)
[2024-10-01 12:58] LABS: Thyroglobulin 0.6 ng/mL; Thyroglobulin Antibodies <1 IU/mL (< or = 1)
[2024-10-03 22:28] LABS: Thyroglobulin Antibody <1 IU/mL (<=1); Thyroglobulin Level 0.5 ng/mL
== END 2024-09-30 06:57 | disposition home or self-care (01) ==
LOC: HO.LAB 06:56
PROVIDERS: PCP Physician Assistant; Visit Provider Student in an Organized Health Care Education/Training Program
DX: C73 Malignant neoplasm of thyroid gland (principal)
CPT/HCPCS: 36415; 84432; 84439; 84443; 86800

== ENCOUNTER 2024-10-01 07:49 | Outpatient (AMB) | payer OTHER, SELFPAY ==
--- NOTE | 2024-10-01 07:52 | A.OFFPC_ITS ---
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 Required: No Accompanied by: Self / Same As Patient Allergies cat dander [CATS] Allergy (Mild, Verified 10/01/24 08:10) GENERALIZED ALLERGY SYMPTOMS dog dander [DOGS] Allergy (Mild, Verified 10/01/24 08:10) GENERALIZED ALLERGY SYMPTOMS tree and shrub pollen [TREE] Allergy (Mild, Verified 10/01/24 08:10) GENERALIZED ALLERGY SYMPTOMS FROM [place] Medication List - Last Reconciled 10/01/24 by Saúl Maier PA-C albuterol-budesonide 90-80 mcg/actuation (Airsupra) 2 inhalations inhalation TID PRN aspirin 81 mg PO DAILY 90 days atorvastatin 40 mg PO BEDTIME 90 days bisacodyl (Dulcolax (bisacodyl)) 10 mg (2 x 5 mg) PO BEDTIME Carafate (sucralfate) 10 mL PO BEDTIME NS carvedilol 3.125 mg PO BID 90 days cholecalciferol (vitamin D3) 100 mcg (2 x 50 mcg (2,000 unit)) PO DAILY 90 days clobazam 5 mg PO BID codeine-guaifenesin 10-100 mg/5 mL 10 mL PO Q4-6H PRN dupilumab (Dupixent) 300 mg (2 mL) subcut Q2W 28 days gabapentin 300 mg PO BEDTIME PRN 30 days guaifenesin ER 600 mg PO BID hydroxyzine HCl 25 mg PO BEDTIME lacosamide mg PO lansoprazole 30 mg PO DAILY levofloxacin 750 mg PO DAILY linaclotide (Linzess) 290 mcg PO QAM lisinopril 10 mg PO DAILY 90 days metformin ER 500 mg PO DAILY 90 days montelukast 10 mg PO BEDTIME 90 days nystatin 5 mL PO DAILY PRN 30 days oxcarbazepine (Trileptal) 300 mg PO BID oxcarbazepine 600 mg PO BID prednisone 40 mg (2 x 20 mg) PO DAILY prednisone 10 mg PO DIRECTED sertraline 100 mg PO DAILY 90 days [Sharps container As directed] sucralfate 1 g PO BID Synthroid (levothyroxine) 200 mcg PO DAILY NS Synthroid (levothyroxine) Take half tablet daily along with your 200 mcg tablet on Sunday to only NS theophylline ER 200 mg (1/2 x 400 mg) PO DAILY tiotropium bromide 2.5 mcg/actuation (Spiriva Respimat) 2 puffs PO DAILY PRN Ventolin HFA 90 mcg/actuation (albuterol sulfate) 2 puffs PO Q6H PRN NS Tobacco use date assessed: 10/01/24 Dental Screening Dental Screen Date: 10/01/24 Did you have a dental visit in the last 12 months?: Yes Did you have a dental problem in the last 6 months where you did not have access to dental care?: No Was dental information given to patient?: Patient has dentist HPI EP / Annual PE HPI Details Terrance is 43 year-old male here today for a routine annual physical ?Patient? has a past medical history significant for seizure disorder, moderate persistent? asthma, depression and anxiety, thyroid cancer status post thyroidectomy. Concern--> has been noting a worsening tremor over his right upper and lower extremity. He reports a tremor is so severe he is unable to brush his teeth with his right upper extremity. Has discuss this with the neurologist though no workup given. Epileptic disorder: Neurology also evaluated did EEG that did show some frontal epileptic activity. His seizure medication was increased in dose. Unfortunately has intolerable side effects (lethargy, memory issues) due to the increased dose of TRileptal ( 900mg BID). He is currently working with a rn social work who is trying to get him a new neurologist to make new recommendations on his seizure medication as he is having breakthrough seizures. .. GERD/dysphagia: Does report having worsening GERD like symptoms and chronic throat congestion. He will be following up with Gastroenterology about this. .. Type 2 diabetes: Today's A1c is 6.0.. He continues on metformin 500 daily.. He does admit to dietary indiscretion as a side effect his seizure medications. History of?thyroid cancer: Has noted recently change in his voice and some hoarseness. He is status post total thyroidectomy. Continues on levothyroxine indefinitely. Most recent TSH and T4 have been abnormal Continues on dose levothyroxine at 200 mcg. He has followed up with a endocrinology thyroid specialist in [place] whom will be further working him up. PLAN: Plan for CT of soft tissue neck to evaluate for any recurrent thyroid cancer. ?.. ? Anxiety: Patient he is? seeing therapist (Leila) weekly. Patient continues? on Zoloft .. History of cardiomyopathy:? Patient has a history of dilated cardiomyopathy.? No has establish care with a new phosphorus processing supervisor whom recommends getting a cardiac stress test though has not been covered by insurance. Does have chest pain and has a history of the cardiomyopathy. Would not be able to do Elijah protocol stress test as he does have severe asthma. ? Has been on moderate dose statin and most recent lipid panel showing elevated total cholesterol and LDL. Of note aspirin has been held due to his history of upper GI bleed due to Ramirez's esophagus?.. ?Moderate persistent asthma:? Followed by Pulmonology. REcent PFT - showing modererate asthma vs COPD. He does continue on Dupixent which has really helped initially control his asthma symptoms . Unfortunately his asthma has worsened. Will be considering [facility] for a Bronchothermoplasy. He reports as of late his wheezing has been more evident and he attributes this to the changes in weather. Vaccines: Up-to-date with pneumonia vaccine and tetanus vaccine [facility] Medical History (Updated 10/02/24 @ 07:36 by Saúl Maier PA-C) Uvulitis Claustrophobia Takotsubo cardiomyopathy Schatzki's ring Gastritis Sleep apnea Diabetes Gastroparesis Migraine headache with aura Enlarged liver Postoperative hypothyroidism Thyroid cancer Vitamin D deficiency Multinodular thyroid Seizures ABPA (allergic bronchopulmonary aspergillosis) Seizures Asthma Surgical History S/P total thyroidectomy History of esophagogastroduodenoscopy (EGD) S/P removal of thyroid nodule History of cholecystectomy Family History Maternal Grandmother Emphysema, unspecified Father Diabetes Mother No problems noted. Paternal Grandfather Liver cancer Colon cancer Social History Household Members: Family Housing: Apartment Are you a primary plant care worker to a significant other at home: No Do you presently have visiting nurse or other home services: No Alcohol intake: never Comment: has poor balance Patient Tobacco Use Status: Never used Tobacco e-Cigarette/Vaping Use: Never Used Second Hand Smoke Exposure: No Substance Use Type: Marijuana Advance Directives Date on File: 05/20/23 service: No Current occupational status: disabled Current occupation: rt handed Cognitive needs: No Hearing needs: No Vision needs: No Questionnaire PHQ-9 Over the last 2 weeks, how often have you been bothered by any of the following problems? 1. Little interest or pleasure in doing things: nearly every day 2. Feeling down, depressed, or hopeless: nearly every day 3. Trouble falling or staying asleep, or sleeping too much: nearly every day 4. Feeling tired or having little energy: nearly every day 5. Poor appetite or overeating: more than half the days 6. Feeling bad about yourself - or that you are a failure or have let yourself or your family down: nearly every day 7. Trouble concentrating on things, such as reading the newspaper or watching television: nearly every day 8. Moving or speaking so slowly that other people could have noticed. Or the opposite - being so fidgety or restless that you have been moving around a lot more than usual: several days 9. Thoughts that you would be better off or of hurting yourself in some way: several days Total score: 22 Depression Screening Interpretation: Positive Depression Screening Follow-up: Existing condition and In treatment Depression Screening Done: Yes 15356 - PHQ-9 Billing: Yes Source: Developed by Drs. Ramses Nguyen, Debi Russ, Colin Rowell and colleagues, with an educational javy from [employer]. Thrive Questionnaire Date Thrive assessed: 10/01/24 I am a: Patient What is your living situation today?: I have a place to live, but I am worried about losing it in the future Within the past 12 months, did the food you bought not last and you didn't have the money to get more?: Sometimes True Within the past 12 months, did you worry whether your food would run out before you got money to buy more?: Sometimes True Do you have trouble paying for medicines?: No Do you have trouble getting transportation to medical appointments?: Yes Do you have trouble paying your heating and electricity bill?: Yes Do you have trouble taking care of your child, family member or friend?: No Do you have trouble with day-to-day activities such as bathing, preparing meals, shopping, managing finances, etc.?: Yes Are you currently unemployed and looking for a job?: Yes Are you interested in more education?: No Please select the resources that you would like help with: Daily support Currently or been in a relationship where the following occur: I choose not to answer THRIVE Score: 5 AUDIT C Alcohol Use Questionnaire (AUDIT-C) 1. How often do you have a drink containing alcohol?: Never Total Score: 0 MOOSE-7 AMB Questionnaire MOOSE-7 Date MOOSE - 7 assessed: 10/01/24 Feeling nervous, anxious, or on edge: 3 = Nearly every day Not being able to stop or control worryin = Nearly every day Worrying too much about different things: 3 = Nearly every day Trouble relaxin = Nearly every day Being so restless that it is hard to sit still: 3 = Nearly every day Becoming easily annoyed or irritable: 3 = Nearly every day Feeling afraid as if something awful might happen: 3 = Nearly every day Total MOOSE-7 score (0-4 normal; 5-9 mild; 10-14 moderate; 15-21 severe): 21 Source: Developed by Drs. Ramses Nguyen, Debi Russ, Colin Rowell and colleagues, with an educational javy from [employer]. MOOSE-7 Assessment Billing MOOSE-7 Assessment Tool: MOOSE-7 Assessment 11452 Physical exam (Primary Care) Vital Signs: Last Vital Signs Temp 97.1 F 10/01/24 07:56 Pulse 80 10/01/24 07:56 BP 110/76 10/01/24 07:56 Pulse Ox 96 10/01/24 07:56 Oxygen Delivery Method Room Air 10/01/24 07:56 BMI result Body Mass Index 26.8 Tobacco/Smoking Status: Tobacco use Status Tobacco use date assessed 10/01/24 10/01/24 08:01 Patient Tobacco Use Status Never used Tobacco 10/01/24 07:53 Tobacco use type 06/18/24 11:44 e-Cigarette/Vaping Use Never Used 10/01/24 07:53 PHQ-9: PHQ-9 Score PHQ-9: Total score 22 10/01/24 08:49 Depression Screening Interpretation: Positive Depression Screening Follow-up: Existing condition and In treatment Thrive Assessment: Date of Thrive Assessment Date Thrive assessed 10/01/24 10/01/24 08:01 Currently or been in a relationship where the following occur: I choose not to answer Office Procedures Flu Questionnaire Does the patient have a severe egg allergy?: No Does the patient have severe life threatening allergies?: No Does the patient have a fever or illness today?: No Has the patient ever had Guillain-Wellington Syndrome?: No Has the patient ever had any past reaction to a flu shot?: No Results AMB Hemoglobin A1c AMB Hemoglobin A1c 6.0 % Last Edit by RAFA Liu on 10/01/24 08:0 5 Immunizations Fluarix Triv [id number] (PF) 45 mcg (15 mcg x 3)/0.5 mL IM syringe Performing Provider: Saúl Maier PA-C [facility] Administered by: RAFA Martinez on 10/01/24 08:49 Dose Route Admin Location Dispensed Lot Number Expiration Date [facility] Fitness Plan Coordinator 0.5 mL IM Left Deltoid 0.5 mL [id number] 03/16/25 [id number] OverseeINE VIS Given Date VIS Provided VIS Publication Date 10/01/24 Single Vaccine 21 Eligibility Eligibility Date Funding Source Not [facility] Eligible 10/01/24 Private Results Reviewed Results Reviewed: Laboratory Last Values Hgb A1c (Clinic) 6.0 % (4.0-6.0) 10/01/24 08:04 Coding Level of Care Code Est Pt Prev Care 40-64y(14168) Diagnoses Annual physical exam Z00.00 Seizure disorder G40.909 Thyroid cancer C73 Tremor R25.1 Type 2 diabetes mellitus with hyperglycemia, without long-term current use of insulin E11.65 Diabetes mellitus exterminator termite insulin use: without exterminator termite use Diabetes mellitus complication status: with hyperglycemia Moderate persistent asthma without complication J45.40 Asthma complication type: uncomplicated Asthma persistence: persistent Asthma severity: moderate MDD (major depressive disorder), recurrent episode, moderate F33.1 MOOSE (generalized anxiety disorder) F41.1 Additional Codes PHQ-9 - 24202 - PHQ-9 Billing: Yes ([id number]) MOOSE-7 Assessment Billing - MOOSE-7 Assessment Tool: MOOSE-7 Assessment 52623 ([id number]) Assessment & Plan Assessment & Plan (1) Annual physical exam: Code(s): Z00.00 - Encounter for general adult medical examination without abnormal findings Category: Medical Plan: As per HPI (2) Seizure disorder: Code(s): G40.909 - Epilepsy, unspecified, not intractable, without status epilepticus Category: Medical Plan: Patient continues on 4 different antiepileptic medication. Fortunately has not had a seizure about a month. He has noted a right-sided upper and lower extremity tremor several hours per day. He has spoken to his neurologist though no workup offered. He reports this tremor is very hindering to his life as he often can not do anything while the tremors happening. Unclear if this tremor is related to a neurological disease or his seizure medication as they are only unilateral on the right side of his body.. He will be seen epileptic specialist next month at [facility] in hopes to find out more about his seizure disorder (3) Thyroid cancer: Code(s): C73 - Malignant neoplasm of thyroid gland Category: Medical Plan: Patient has a history of thyroid cancer in his status post thyroidectomy. Patient's TSH and T4 still remain abnormal.. Over the last few months he has noted some hoarseness of voice and changing in his voice. Will send for CT of soft tissue of neck to evaluate for any recurrent mass in the neck causing the change in his voice. He will be following up with his sandblast carver as well. (4) Tremor: Code(s): R25.1 - Tremor, unspecified Category: Medical Plan: As per HPI has noted a tremor on his right side of his body particularly in his upper and right lower extremity. (5) DMII (diabetes mellitus, type 2): Code(s): E11.9 - Type 2 diabetes mellitus without complications Category: Medical Qualifiers: Diabetes mellitus half-way insulin use: without exterminator termite use Diabetes mellitus complication status: with hyperglycemia Qualified Code(s): E11.65 - Type 2 diabetes mellitus with hyperglycemia Plan: Patient's type 2 diabetes well controlled with current dose of metformin. Today's A1c is 6.0. Goal A1c is to remain below 6.5. (6) Asthma: Code(s): J45.909 - Unspecified asthma, uncomplicated Category: Medical Qualifiers: Asthma complication type: uncomplicated Asthma persistence: persistent Asthma severity: moderate Qualified Code(s): J45.40 - Moderate persistent asthma, uncomplicated Plan: Patient followed by [facility] pulmonology. Has pretty severe asthma which as of late has not been well controlled even on maximal medical therapy. He will be seeing pulmonology and [facility] to discuss alternative therapies (7) MDD (major depressive disorder), recurrent episode, moderate: Code(s): F33.1 - Major depressive disorder, recurrent, moderate Category: Medical Plan: Patient's PHQ-9 score positive for moderate to severe depression. Speaks with a mental health therapist and continues on mental health medication. He reports his depression is bad because of his medical conditions that are hard to figure out. (8) MOOSE (generalized anxiety disorder): Code(s): F41.1 - Generalized anxiety disorder Category: Medical Plan: Patient's MOOSE-7 score positive for severe anxiety which has been existing condition. Continues on SSRI therapy and speaks with a mental health therapist. His anxiety continues to be at the level days due to his medical conditions that are not getting better Orders: Orders AMB Hemoglobin A1c 10/01/24 E11.65 - Type 2 diabetes mellitus with hyperglycemia Comprehensive [place]. Panel Fast 10/01/24 E11.65 - Type 2 diabetes mellitus with hyperglycemia Influenza [id number] Immunization 10/01/24 Z23 - Encounter for immunization Phosphorus 10/01/24 E83.39 - Other disorders of phosphorus metabolism Medications: Discontinued levofloxacin Discontinued Reason: Doctor's Order 750 mg PO DAILY 7 tabs 0RF
[2024-10-01 07:56] VITALS: BP 110/76; PULSE 80; TEMP 36.2; O2SAT 96; BMI 26.8
== END 2024-10-01 08:52 | disposition home or self-care (01) ==
PROVIDERS: PCP Physician Assistant; Visit Provider Physician Assistant
DX: E11.65 Type 2 diabetes mellitus with hyperglycemia (principal); Z23 Encounter for immunization

== ENCOUNTER → 2024-10-01 07:49 | Outpatient (BNVA) | payer OTHER, SELFPAY | PROVIDERS: PCP Physician Assistant; Visit Provider Physician Assistant | DX: Z00.00 Encounter for general adult medical examination without abnormal findings (principal); Z23 Encounter for immunization; G40.909 Epilepsy, unspecified, not intractable, without status epilepticus; C73 Malignant neoplasm of thyroid gland; R25.1 Tremor, unspecified; E11.65 Type 2 diabetes mellitus with hyperglycemia; J45.40 Moderate persistent asthma, uncomplicated; F33.1 Major depressive disorder, recurrent, moderate; F41.1 Generalized anxiety disorder | CPT/HCPCS: 83036; 90471; 90656; 96127; 99396 ==

== ENCOUNTER 2024-10-06 08:19 | Outpatient (AMB) | payer OTHER, SELFPAY ==
[2024-10-06 08:33] VITALS: BMI 27.3
--- NOTE | 2024-10-06 08:33 | MHC.AMNUTRGE ---
VS Expanded 10/06/24 08:33 10/07/24 13:31 Height 5 ft 5 in 5 ft 5 in Weight 164 lb 0.383 oz 164 lb BMI 27.3 27.3 Intake Visit Reasons: Type 2 diabetes mellitus with hyperglycemia Allergies cat dander [CATS] Allergy (Mild, Verified 10/01/24 08:10) GENERALIZED ALLERGY SYMPTOMS dog dander [DOGS] Allergy (Mild, Verified 10/01/24 08:10) GENERALIZED ALLERGY SYMPTOMS tree and shrub pollen [TREE] Allergy (Mild, Verified 10/01/24 08:10) GENERALIZED ALLERGY SYMPTOMS FROM [place] Nutrition Presentation Details: Pt presents for MNT f/u for T2DM with gastritis who cooks: self and parents Typical meal intake: B: honey bunches cereal with whole milk and toast with butter L:: Grilled cheese or 2 hot dog and greta rodriguez D: chicken or meat loaf with baked potato and green lane or asparagus or lasagna and greta rodriguez fruit juice (apple, fruit punch and other) food frequency not including fish - does not like it dairy: whole milk in cereal , yogurt chips and fried foods : daily late at night water 12 oz/d ETOH: stopped at age 20 BS Monitoring Most Recent Diabetes Results: No Data to Display DXV-Fxoidph-Tm.Jeor Equation Height: 5 ft 5 in Weight: 164 lb Resting Metabolic Rate: 1563.54 Calculated Activity Level: Sedentary Calories Needed to Maintain Weight: 1876.25 Diagnosis Nutrition problem #1: food nutri know defi As related to (etiology) #1: diagnosis As evidenced by (sign/symptom) #1: knowledge deficit of diet Monitoring/Goals Nutrition problem monitoring: level of knowledge/skill [facility] Medical History (Updated 10/06/24 @ 09:12 by Brisa Hurtaod, RD, LDN) Uvulitis Claustrophobia Takotsubo cardiomyopathy Schatzki's ring Gastritis Sleep apnea Diabetes Gastroparesis Migraine headache with aura Enlarged liver Postoperative hypothyroidism Thyroid cancer Vitamin D deficiency Multinodular thyroid Seizures ABPA (allergic bronchopulmonary aspergillosis) Seizures Asthma Surgical History S/P total thyroidectomy History of esophagogastroduodenoscopy (EGD) S/P removal of thyroid nodule History of cholecystectomy Family History Maternal Grandmother Emphysema, unspecified Father Diabetes Mother No problems noted. Paternal Grandfather Liver cancer Colon cancer Social History Household Members: Family Housing: Apartment Are you a primary progressive care nurse to a significant other at home: No Do you presently have visiting nurse or other home services: No Alcohol intake: never Comment: has poor balance Patient Tobacco Use Status: Never used Tobacco e-Cigarette/Vaping Use: Never Used Second Hand Smoke Exposure: No Substance Use Type: Marijuana Advance Directives Date on File: 05/20/23 service: No Current occupational status: disabled Current occupation: rt handed Cognitive needs: No Hearing needs: No Vision needs: No Assessment & Plan Assessment & Plan (1) DMII (diabetes mellitus, type 2): Comment: Pt also with GERD Code(s): E11.9 - Type 2 diabetes mellitus without complications Category: Medical Qualifiers: Diabetes mellitus complication status: with hyperglycemia Diabetes mellitus superintendent marine oil terminal insulin use: without superintendent marine oil terminal use Qualified Code(s): E11.65 - Type 2 diabetes mellitus with hyperglycemia Plan: Wt: 74 Kg ( 09/2024 ) Est kcal needs as per MSJ: 1900 (40% carb, 30% protein/fat) Est fluid needs as per 25-30 ml/d: 2200 Est prot per day as per 1 g/kg bw: 74 Recommend fiber intake : 8-10 g per day and gradually increase to 25-28 g per day for women and 35-38 g for men or as tolerated Recommend sodium intake per day : less than 2000 mg Educated patient on: ( R = reviewed V = verbalizes understanding N/R = needs review N/A = not applicable Food sources of carbohydrate, adequate serving sizes and its role in various health conditions: R Differences between complex carbohydrates a simple carbohydrates, role of fiber in diet: R V N/R Lean protein sources of foods: R Differences between types of fats and role in diet (mono on saturated fat fatty acids, saturated fatty acids, trans fats): R Food sources of sodium in salt and healthy modifications for heart health in kidney health: R V R/V Vitamins and minerals: R V N/R Healthy plate method concept: R V N/R Physical activity: Benefits a precaution: R V N/R Hypoglycemia protocol (rule of 15): R Dietary prevention of Hyperglycemia: R Patient Instructions: Work on reducing on fried foods and high fat foods - see list of low fat food options as discussed Include lean protein foods in your meals see meal ideas Have low fat milk in place of soda with the meal choose a yogurt as snack at bedtime Coding Level of Care Code Nutr Indiv Intake (17949) Diagnoses Type 2 diabetes mellitus with hyperglycemia, without long-term current use of insulin E11.65 Diabetes mellitus complication status: with hyperglycemia Diabetes mellitus prison insulin use: without superintendent marine oil terminal use Time Spent (min) 30
[2024-10-07 13:31] VITALS: BMI 27.3
== END 2024-10-06 09:09 | disposition home or self-care (01) ==
PROVIDERS: PCP Physician Assistant; Visit Provider Dietitian, Registered
DX: E11.65 Type 2 diabetes mellitus with hyperglycemia (principal)

== ENCOUNTER → 2024-10-06 08:19 | Outpatient (BNVA) | payer OTHER, SELFPAY | PROVIDERS: PCP Physician Assistant; Visit Provider Dietitian, Registered | DX: E11.65 Type 2 diabetes mellitus with hyperglycemia (principal) | CPT/HCPCS: 97802 ==

== ENCOUNTER 2024-10-10 15:51 | Outpatient (REF) | payer OTHER, SELFPAY ==
--- NOTE | ~2024-10-10 | US_ITS ---
CLINICAL HISTORY: C73 - Malignant neoplasm of thyroid gland Soft tissue ultrasound of the neck Comparison: None FINDINGS: The prior ultrasound images and reports are not available for review. The comparison is based on the preliminary report from the public relations representative. Images were obtained in the area of clinical concern. In this region, the soft tissue shows right level 2 lymph node 1 x 0.3 x 0.4 cm, previously 0.9 x 0.4 x 0.5 cm; right level 5 lymph node 0.3 x 0.2 x 0.3 cm; left level 3 lymph node 0.9 x 0.3 x 0.5 cm, previously 0.7 x 0.2 x 0.6 cm; left level 4 lymph node 0.7 x 0.3 x 0.5 cm, previously 1 x 0.5 x 0.4 cm; left level 4 lymph node 0.7 x 0.5 x 0.5 cm. IMPRESSION: Stable multiple small lymph nodes of the neck. No suspicious enlarged cervical lymph nodes. This document has been electronically signed by: Kenia Gómez MD on 10/15/2024 16:36:52
--- OUTSIDE RECORDS SUMMARY | 2024-10-10 16:36 | XMS_ITS | Clinical Summary ---
Author Organization [facility] Address [address] [address] Care Team Providers Care Electron Beam Photo Mask Maker Name Role Phone Saúl Maier Primary Care Provider [phone] Allergies No known active allergies Medications acetaminophen (TYLENOL 8 HOUR) 650 MG 8 hr tablet Take 650 mg by mouth every 8 (eight) hours if needed for mild pain Do not crush, chew, or split. Active albuterol HFA (PROVENTIL HFA;VENTOLIN HFA) 108 (90 Base) MCG/ACT inhaler Inhale 2 puffs every 6 (six) hours if needed for wheezing Active aspirin (ST NEAL) 81 MG EC tablet Take 81 mg by mouth 1 (one) time each day Active atorvastatin (LIPITOR) 40 MG tablet Take 40 mg by mouth 1 (one) time each day Active calcium carbonate (TUMS) 500 MG chewable tablet Chew 1 tablet 1 (one) time each day Active carvedilol (COREG) 3.125 MG tablet Take 3.125 mg by mouth in the morning and 3.125 mg in the evening. Take with meals. Active Cholecalciferol (Vitamin D) 25 MCG (1000 UT) tablet Take by mouth Active divalproex (DEPAKOTE) 500 MG EC tablet Take 500 mg by mouth in the morning and 500 mg in the evening and 500 mg before bedtime. Do not crush, chew, or split. . Active FLUoxetine (PROzac) 20 MG tablet Take 20 mg by mouth 1 (one) time each day Active levETIRAcetam (KEPPRA) 1000 MG tablet Take 1,000 mg by mouth in the morning and 1,000 mg in the evening. Active levothyroxine (SYNTHROID, LEVOTHROID) 125 MCG tablet Take 125 mcg by mouth 1 (one) time each day Active montelukast (SINGULAIR) 10 MG tablet Take 10 mg by mouth every night Active pantoprazole (PROTONIX) 20 MG EC tablet Take 20 mg by mouth 1 (one) time each day before breakfast Do not crush, chew, or split. Active sertraline (ZOLOFT) 100 MG tablet Take 100 mg by mouth 1 (one) time each day Active theophylline (UNIPHYL) 400 MG 24 hr tablet Take 400 mg by mouth 1 (one) time each day Do not crush or chew. Active metFORMIN XR (GLUCOPHAGE-XR) 500 MG 24 hr tablet Take 500 mg by mouth 1 (one) time each day Active Active Problems Problem Noted Date Diagnosed Date Takotsubo cardiomyopathy 11/13/2022 Papillary thyroid carcinoma 11/13/2022 Mixed anxiety and depressive disorder 11/13/2022 Iatrogenic hypothyroidism 11/13/2022 Essential (primary) hypertension 11/13/2022 Disorder of sleep-wake cycle 11/09/2022 Acute nontraumatic kidney injury 01/24/2022 Hypertensive heart and renal disease with (congestive) heart failure 01/24/2022 Low blood pressure 01/24/2022 Seizure 01/24/2022 Essential (primary) hypertension 01/24/2022 Family History Medical History Relation Comments Diabetes Father Diabetes Sibling Relation Status Comments Father Sibling Social History Tobacco Use Types Packs/Day Years Used Date Smoking Tobacco: Never Smokeless Tobacco: Never Alcohol Use Standard Drinks/Week Comments No 0 (1 standard drink = 0.6 oz pur e alcohol) Sex and Gender Information Value Date Recorded Sex Assigned at Not on file Legal Sex Male 4:52 PM EST Gender Identity Not on file Sexual Orientation Not on file Last Filed Vital Signs Vital Sign Reading Time Taken Comments Blood Pressure 138/62 11/13/2022 2:08 PM EST Pulse 66 11/13/2022 2:08 PM EST Temperature - - Respiratory Rate - - Oxygen Saturation 98% 11/13/2022 2:08 PM EST Inhaled Oxygen Concentration - - Weight 75.8 kg (167 lb 3.2 oz) 11/13/2022 2:08 P M EST Height 162.6 cm (5' 4 ) 06/09/2019 12:00 PM EDT Body Mass Index 28.7 06/09/2019 12:00 PM EDT Plan of Treatment Health Maintenance Due Date Last Done Comments Pneumococcal Vaccine: Pediat rics (0 to 5 Years) and At-Risk Patients (6 to 64 Years) (1 of 2 - PCV) 11/18/1985 Hepatitis B Vaccine (1 of 3 - 19+ 3-dose series) 11/18 Influenza Vaccine (#1) 2024 Insurance MEDICAID Care Teams Electron Beam Photo Mask Maker Relationship Specialty Start Date End Date Saúl Maier PA [address] [place] [address], [address] [place] [address] PCP - General Physician Law Tutor 01/30/22
--- OUTSIDE RECORDS SUMMARY | 2024-10-10 16:36 | XMS_ITS | Encounter Summary ---
Author Organization [facility] Address [address] [place] [address] Care Team Providers Care Club Attendant Name Role Phone Saúl Maier Primary Care Provider Unavailab le Reason for Visit * Reason Comments E-prescribe Rx Request Encounter Details Date Type Department Care Team Description 04/10/2019 Refill Pulmonology - [place] [address] [facility] [address] [place] [address] Milly Barnes MD [address] [place] [address] E-prescribe Rx Request Social History Tobacco Use Types Packs/Day Years Used Date Smoking Tobacco: Never Smokeless Tobacco: Never Alcohol Use Standard Drinks/Week Comments No 0 (1 standard drink = 0.6 oz pur e alcohol) Sex Assigned at Date Recorded Not on file documented as of this encounter Miscellaneous Notes * Telephone Encounter - Chyna Brock - 04/10/2019 9:27 AM EDT Patient would like script to be: E-PRESCRIBED/FAXED TO PHARMACY WHEN WAS THE PATIENT'S LAST APPOINTMENT WITH THE PRESCRIBING PROVIDER? 03/06/19 Does patient have an upcoming appointment? Yes 09/04/19 (THE MEDICATION REQUESTED IS ON THE MED LIST ABOVE) All of the medications requested were on the CURRENT MEDS list Did you check the Pharmacy information above?: YES Patient wants: 30 -day supply Is this a mail order prescription request ? NO Patients current insurance carrier is: Payor: [facility] [place] [employer] [facility] / Plan: [facility] / Product Type: MEDICAID RISK documented in this encounter Plan of Treatment Not on file documented as of this encounter Visit Diagnoses Not on filedocumented in this encounter Care Teams Club Attendant Relationship Specialty Start Date End Date Saúl Maier PCP - General Internal Medicine 03/06/19 documented as of this encounter
--- OUTSIDE RECORDS SUMMARY | 2024-10-10 16:36 | XMS_ITS | Encounter Summary ---
Author Organization [facility] Address [address] [place] [address] Care Team Providers Care Corporate Account Executive Name Role Phone Trav Greenberg Primary Care Provider Blessing Gilmore MD Primary Care Provider Saúl Lim Primary Care Provider Jackson diane Reason for Visit * Reason Comments E-prescribe Rx Request Encounter Details Date Type Department Care Team Description 02/14/2018 Refill Pulmonology - [place] 175 [facility] [address] [place] [address] Milly Barnes MD [address] [place] [address] E-prescribe Rx Request Social History Tobacco Use Types Packs/Day Years Used Date Smoking Tobacco: Never Alcohol Use Standard Drinks/Week Comments No 0 (1 standard drink = 0.6 oz pur e alcohol) Sex Assigned at Date Recorded Not on file documented as of this encounter Miscellaneous Notes * Telephone Encounter - Breanna Woodard - 02/15/2018 9:06 AM EDT Patient would like script to be: E-PRESCRIBED/FAXED TO PHARMACY WHEN WAS THE PATIENT'S LAST APPOINTMENT WITH THE PRESCRIBING PROVIDER? 10/18/17 Does patient have an upcoming appointment? Yes (THE MEDICATION REQUESTED IS ON THE MED LIST ABOVE) All of the medications requested were on the CURRENT MEDS list Did you check the Pharmacy information above?: YES Patient wants: 90 -day supply Is this a mail order prescription request ? NO Patients current insurance carrier is: Payor: [employer] / Plan: [employer] $0 [id number] / Product Type: MEDICAID [id number] * Telephone Encounter - Tiffani Joshi - 02/15/2018 8:37 AM EDT Patient would like script to be: E-PRESCRIBED/FAXED TO PHARMACY WHEN WAS THE PATIENT'S LAST APPOINTMENT WITH THE PRESCRIBING PROVIDER? 10/18/2017 Does patient have an upcoming appointment? Yes 04/18/2018 (THE MEDICATION REQUESTED IS ON THE MED LIST ABOVE) All of the medications requested were on the CURRENT MEDS list Did you check the Pharmacy information above?: YES Patient wants: 30 -day supply Is this a mail order prescription request ? NO Patients current insurance carrier is: Payor: [employer] / Plan: [employer] $0 [id number] / Product Type: MEDICAID [id number] documented in this encounter Plan of Treatment Not on file documented as of this encounter Visit Diagnoses Not on filedocumented in this encounter Care Teams Corporate Account Executive Relationship Specialty Start Date End Date Trav Greenberg PCP - General Internal Medicine 07/13/17 09/04/18 Blessing Beltran MD PCP - General Family Practice 09/05/18 03/05/19 Saúl Maier PCP - General Internal Medicine 03/06/19 documented as of this encounter
--- OUTSIDE RECORDS SUMMARY | 2024-10-10 16:36 | XMS_ITS | Encounter Summary ---
Author Organization [facility] Address [address] [place] [address] Care Team Providers Care Fisher Diver Net Name Role Phone Saúl Maire Primary Care Provider Encounter Details Date Type Department Care Team (Late st Contact Info) Description 10/10/2024 Telephone Pulmon[address] [phone] Sandra Soriano MA Social History Tobacco Use Types Packs/Day Years Used Date Smoking Tobacco: Never Smokeless Tobacco: Never Alcohol Use Standard Drinks/Week Comments No 0 (1 standard drink = 0.6 oz pur e alcohol) Sex and Gender Information Value Date Recorded Sex Assigned at Not on file Gender Identity Not on file Sexual Orientation Not on file documented as of this encounter Plan of Treatment Upcoming Encounters Date Type Department Care Team (Late st Contact Info) Description 10/16/2024 3:00 PM EST Consult Pulmonology - [place] [address] [phone] Anabel Garvin MD [address] [place] [phone] documented as of this encounter Visit Diagnoses Not on filedocumented in this encounter Care Teams Fisher Diver Net Relationship Specialty Start Date End Date Saúl Maier PA [address] [place] [id number] PCP - General Internal Medicine 03/06/19 documented as of this encounter
--- OUTSIDE RECORDS SUMMARY | 2024-10-10 16:36 | XMS_ITS | Clinical Summary ---
Author Organization [facility] Address [address] [place] [address] Care Team Providers Care Wilderness Guide Name Role Phone Saúl Maier Primary Care Provider Unavailab le Allergies Active Allergy Reactions Severity Noted Date Comments No Known Drug Allergies 10/11/2016 Medications Medication Sig Dispensed Refills Start Date End Date Status albuterol (PROVENTIL) (2.5 MG/3ML) 0.083% nebulizer solution Take 1 Vial by nebulization every 6 hours. 0 Active montelukast (SINGULAIR) 10 MG tablet Take 10 mg by mouth daily. 0 Active budesonide-formoter ol (SYMBICORT) 160-4.5 MCG/ACT inhaler Inhale 2 Puffs into the lungs 2 times daily. Rinse mouth after use. 0 Active Tiotropium Skytop Monohydrate (SPIRIVA RESPIMAT) 1.25 MCG/ACT Aero Soln Inhale 1 Puff into the lungs daily. 1 Inhaler 5 07/18/2017 Active atorvastatin (LIPITOR) 40 MG tablet Take 40 mg by mouth daily. 0 Active fluticasone 50 MCG/ACT nasal spray 2 Sprays by Each Nare route daily. 0 Active ALBUTEROL SULFATE 108 (90 BASE) MCG/ACT Aero Soln Inhale 2 Puffs into the lungs every 4 hours as needed. 0 Active levetiracetam (KEPPRA) 1000 MG tablet Take 1,000 mg by mouth 2 times daily. 0 Active pantoprazole (PROTONIX) 20 MG tablet TAKE 1 TABLET BY MOUTH EVERY DAY 30 Tab 3 04/10/2019 Active methylPREDNISolone (MEDROL) 4 MG tablet Take 4 mg by mouth daily. 0 Active Active Problems Problem Noted Date COPD (chronic obstructive pulmonary dise ase) 10/03/2017 Allergic rhinitis 07/14/2017 Obstructive sleep apnea syndrome 017 Asthma-chronic obstructive pulmonary dis ease overlap syndrome 04/16/2017 Gastroesophageal reflux disease 12/09/19 17 Asthma 12/08/2016 Social History Tobacco Use Types Packs/Day Years Used Date Smoking Tobacco: Never Smokeless Tobacco: Never Alcohol Use Standard Drinks/Week Comments No 0 (1 standard drink = 0.6 oz pur e alcohol) Sex Assigned at Date Recorded Not on file Last Filed Vital Signs Vital Sign Reading Time Taken Comments Blood Pressure 102/66 09/04/2019 8:13 AM EST Pulse 68 09/04/2019 8:13 AM EST Temperature - - Respiratory Rate 17 09/04/2019 8:13 AM EST Oxygen Saturation 97% 09/04/2019 8:13 AM EST Inhaled Oxygen Concentration - - Weight 73 kg (161 lb) 09/04/2019 8:13 AM EST Height 165.1 cm (5' 5 ) 09/04/2019 8:13 AM EST Body Mass Index 26.79 09/04/2019 8:13 AM EST Plan of Treatment Health Maintenance Due Date Last Done Comments Covid-19 Vaccine (#1) 05/21/1980 DTAP/TDAP/TD (1 - Tdap) 11/18/1998 PNEUMOCOCCAL VACCINE FOR HIGH RISK PATIENTS (#1) 11/18 CHOLESTEROL SCREENING 1999 BASELINE HEALTH EXAM 40-64 2019 INFLUENZA (#1) 2024 BMI CHECK/ADVISE 09/17/2024 DEPRESSION SCREENING/FOLLOWUP 09/17/2024 SOCIAL NEEDS SCREENING 09/17/2024 Care Teams Wilderness Guide Relationship Specialty Start Date End Date Saúl Maier PCP - General Internal Medicine 03/06/19
--- OUTSIDE RECORDS SUMMARY | 2024-10-10 16:36 | XMS_ITS | Clinical Summary ---
Author Organization [facility] [address] [facility] Address [address] [place] [address] Phone Care Team Providers Care Metal Ceiling Hanger Name Role Phone Saúl Maier Primary Care Provider Medications Medication Sig Dispensed Refills Start Date End Date Status methylPREDNISolone (MEDROL) 4 mg tablet Take 4 mg by mouth daily. Active pantoprazole (PROTONIX) 20 mg EC tablet TAKE 1 TABLET BY MOUTH EVERY DAY 04/10/2019 Active atorvastatin (LIPITOR) 40 mg tablet Take 40 mg by mouth daily. Active fluticasone propionate (FLONASE) 50 mcg/actuation nasal spray 2 Sprays by Each Nare route daily. Active albuterol HFA (PROAIR HFA ; PROVENTIL HFA ; VENTOLIN HFA) 90 mcg/actuation inhaler Inhale 2 Puffs into the lungs every 4 hours as needed. Active levETIRAcetam (KEPPRA) 1,000 mg tablet Take 1,000 mg by mouth 2 times daily. Active albuterol 2.5 mg /3 mL (0.083 %) nebulizer solution Take 1 Vial by nebulization every 6 hours. Active montelukast (SINGULAIR) 10 mg tablet Take 10 mg by mouth daily. Active budesonide-formoter oL (SYMBICORT) 160-4.5 mcg/actuation inhaler Inhale 2 Puffs into the lungs 2 times daily. Rinse mouth after use. Active tiotropium (Spiriva Respimat) 1.25 mcg/actuation inhalation spray Inhale 1 Puff into the lungs daily. 07/18/2017 Active Active Problems Problem Noted Date Diagnosed Date COPD (chronic obstructive pulmonary disease) Allergic rhinitis 07/14/2017 Asthma-chronic obstructive p ulmonary disease overlap syndrome 04/16/2017 Obstructive sleep apnea syndrome 04/16/2017 Asthma 12/08/2016 Gastroesophageal reflux disease 12/08/2016 Encounters Date Type Department Care Team Description 10/10/2024 Telephone Pulmonology - [address] [phone] Sandra Soriano MA 08/25/2024 Telephone Thoracic Surgery - [address] [address] Ayana Hilario MA from Last 3 Months Medical History Medical History Date Comments Allergic rhinitis 07/14/2017 DX:Allergic rh initis Asthma 12/08/2016 DX:Asthma Asthma-chronic obstructive p ulmonary disease overlap syndrome (CMS/HCC) 04/16/2017 DX:Asthma-chronic o bstructive pulmonary disease overlap syndrome (HCC) Gastroesophageal reflux disease 12/08/2016 DX:Gastroesophageal reflux disease Obstructive sleep apnea syndrome 04/16/2017 DX:Obstructive sleep apnea syndrome COPD (chronic obstructive pu lmonary disease) ([facility]) 10/03/2017 DX:COPD (chronic obstructive pulmonary disease) ([facility]) Social History Tobacco Use Types Packs/Day Years Used Date Smoking Tobacco: Never Smokeless Tobacco: Never Alcohol Use Standard Drinks/Week Comments No 0 (1 standard drink = 0.6 oz pur e alcohol) Sex and Gender Information Value Date Recorded Sex Assigned at Not on file Gender Identity Not on file Sexual Orientation Not on file Obstetrics History Plan of Treatment Upcoming Encounters Date Type Department Care Team ([facility] Contact Info) Description 10/16/2024 3:00 PM EST Consult Pulmonology - [address] [phone] Anabel Garvin MD [address] [place] [phone] Health Maintenance Due Date Last Done Comments COVID-19 Vaccine (#1) 11/18/1984 Pneumococcal Vaccine: Pediat rics (0 to 5 Years) and At-Risk Patients (6 to 64 Years) (1 of 2 - PCV) 11/18/1985 DTaP,Tdap,and Td Vaccines (1 - Tdap) 11/18/1998 Hepatitis B Vaccines (1 of 3 - 19+ 3-dose series) 11/18/1998 Influenza Vaccine (#1) 2024 Cholesterol Screening (Lipid Panel) 08/07/2024 Depression Screening 08/07/2024 HIV Screening 08/07/2024 Hepatitis C Screening 08/07/2024 Social Influencers of Health Screening 08/07/2024 Hypertension/CHF/CAD Annual BMP Blood Test 08/21/2024 HIB Vaccines Aged Out No longer eligi ble based on patient's age to complete this topic HPV Vaccines Aged Out No longer eligi ble based on patient's age to complete this topic Hepatitis A Vaccines Aged Out No long er eligible based on patient's age to complete this topic IPV Vaccines Aged Out No longer eligi ble based on patient's age to complete this topic MMR Vaccines Aged Out No longer eligi ble based on patient's age to complete this topic Meningococcal ACWY Vaccine Aged Out N o longer eligible based on patient's age to complete this topic RSV Immunization Patients Un brie 20 months Aged Out No longer eligible b ased on patient's age to complete this topic Varicella Vaccines Aged Out No longer eligible based on patient's age to complete this topic Care Teams Metal Ceiling Hanger Relationship Specialty Start Date End Date Saúl Maier PA [address] [place], [place] [phone] PCP - General Internal Medicine 03/06/19
== END 2024-10-10 15:52 | disposition home or self-care (01) ==
LOC: HO.US 15:51
PROVIDERS: PCP Physician Assistant; Visit Provider Student in an Organized Health Care Education/Training Program
DX: C73 Malignant neoplasm of thyroid gland (principal)
CPT/HCPCS: 76536

== ENCOUNTER → 2024-10-10 15:52 | Outpatient (BNV) | payer OTHER, SELFPAY | PROVIDERS: PCP Physician Assistant; Visit Provider Nuclear Medicine | DX: C73 Malignant neoplasm of thyroid gland (principal); R59.0 Localized enlarged lymph nodes | CPT/HCPCS: 76536 ==

== ENCOUNTER 2024-10-13 15:47 | Outpatient (AMB) | payer OTHER, SELFPAY ==
[2024-10-13 15:48] VITALS: BP 116/70; PULSE 80; O2SAT 96; BMI 26.6
--- NOTE | 2024-10-13 15:48 | A.OFFVIS_ITS ---
Vital Signs 10/13/24 15:48 Height 5 ft 5 in Weight 159 lb 9.835 oz BMI 26.6 BP 116/70 Blood Pressure Location Lt brachial Position Sitting Pulse 80 Pulse Source Pulse Oximeter Pulse Oximetry (%) 96 Oxygen Delivery Method Room Air Intake Visit Reasons: 2 months f/u Gerd Intake Note: ESTABLISHED PATIENT Reason; 2 mos FUV. Pt still has active referral for decal maker. Changes/concerns? Reflux still consistent despite taking lansoprazole daily. Pt has been having consistent bowel movements but is only having ~ 2 / week. No recent ED admissions for seizures. Fire Protection Specialist Required: No Allergies cat dander [CATS] Allergy (Mild, Verified 10/13/24 15:48) GENERALIZED ALLERGY SYMPTOMS dog dander [DOGS] Allergy (Mild, Verified 10/13/24 15:48) GENERALIZED ALLERGY SYMPTOMS tree and shrub pollen [TREE] Allergy (Mild, Verified 10/13/24 15:48) GENERALIZED ALLERGY SYMPTOMS FROM [place] HPI HPI 2 months f/u Gerd: Details: LAST VISIT Barretts esophagus GERD (gastroesophageal reflux disease) Constipation Abdominal bloating Dysphagia Gastroparesis Schatzki's ring Plan Patient will continue lansoprazole daily. Will start taking sucralfate twice a day at 14:00 and bedtime. Referral to dietitian to help with diet. Patient is not eating enough protein and is eating too much carbs and sugars. Also discussed with him low FODMAP diet. Stay away from lactose and gluten. Patient was encouraged to avoid dietary triggers and late night snacking. Staying upright for minimum 3 hours after meals discussed with patient. Patient will i ncrease Linzess to 290 mcg daily. Increase fluid intake and activity to promote better bowel motility. Follow-up in the office in 2 months, sooner on as needed basis. He is agreeable to this plan and verbalizes understanding of instructions. He was given the opportunity to ask questions and all questions answered. ? Thank you for allowing me to participate in his care Orders Referrals Database Administration Project Manager Nutrition Referral E11.65, K21.9, K29.30 Medications New sucralfate 1 g PO BID 60 tabs 2RF K21.9 linaclotide (Linzess) 290 mcg PO QAM 30 caps 4RF K59.00 Discontinued linaclotide (Linzess) Discontinued Reason: Doctor's Order 145 mcg PO DAILY 30 caps 2RF TODAY'S VISIT Patient is here today for follow-up. Patient seen dietitian on of this month. He does report that he is feeling somewhat better his acid reflux seems to be better, he continues to have symptoms. Patient was told by the dietitian that he is eating all the wrong food . We have discuss this with patient and we went over low FODMAP diet. Patient is eating carbs, hot dogs, drinking regular milk and not lactose free. He does report that he drinks plenty of water. He takes Linzess every day and is going to the bathroom every couple days or so. Patient denies smoking any cigarettes. Patient states that his roommate smokes but they smoke outside. Patient reports dyspepsia denies any dysphagia or odynophagia. Patient denies any melena, hematochezia, unintentional weight loss or ribbon like stools. Patient reports occasional postprandial abdominal bloating. Denies any other GI PFSH Medical History Uvulitis Claustrophobia Takotsubo cardiomyopathy Schatzki's ring Gastritis Sleep apnea Diabetes Gastroparesis Migraine headache with aura Enlarged liver Postoperative hypothyroidism Thyroid cancer Vitamin D deficiency Multinodular thyroid Seizures ABPA (allergic bronchopulmonary aspergillosis) Seizures Asthma Surgical History S/P total thyroidectomy History of esophagogastroduodenoscopy (EGD) S/P removal of thyroid nodule History of cholecystectomy Family History Maternal Grandmother Emphysema, unspecified Father Diabetes Mother No problems noted. Paternal Grandfather Liver cancer Colon cancer Social History Household Members: Family Housing: Apartment Are you a primary healthcare account manager to a significant other at home: No Do you presently have visiting nurse or other home services: No Alcohol intake: never Comment: has poor balance Patient Tobacco Use Status: Never used Tobacco e-Cigarette/Vaping Use: Never Used Second Hand Smoke Exposure: No Substance Use Type: Marijuana Advance Directives Date on File: 05/20/23 service: No Current occupational status: disabled Current occupation: rt handed Cognitive needs: No Hearing needs: No Vision needs: No Review of Systems Const Denies weight gain and Denies weight loss ENT Reports no additional complaints, Denies dysphagia and Denies odynophagia Card Reports no additional complaints Resp Reports no additional complaints GI Denies abdominal pain, Denies belching, Denies melena, Denies bloating, Denies change in bowel habits, Denies dysphagia, Denies excessive flatus, Denies dyspepsia, Denies heartburn, Denies diarrhea, Denies loose stools, Denies nausea, Denies odynophagia and Denies vomiting Reports no additional complaints Musc Reports no additional complaints Neuro Reports no additional complaints Psych Reports no additional complaints Endo Reports no additional complaints Physical Exam Vital Signs: Last Vital Signs Pulse 80 10/13/24 15:48 BP 116/70 10/13/24 15:48 Pulse Ox 96 10/13/24 15:48 Oxygen Delivery Method Room Air 10/13/24 15:48 BMI result Body Mass Index 26.6 Const General: healthy appearing, no acute distress and well developed Nutritional Appearance: well nourished Orientation/consciousness: patient oriented x3 Resp Effort & Inspection: normal respiratory effort, able to speak in complete sentences, no tracheal deviation and symmetric chest movement Auscultation: clear to auscultation bilaterally Cardio Rate: regular rate GI Inspection: Yes normal to inspection and No distended Palpation (GI): Soft to palpation, not firm, nontender and No hepatosplenomegaly present Auscultation: normal bowel sounds General: Yes no CVA tenderness Back/Spine/Pelvis Back: no CVA tenderness Skin General skin exam: elasticity normal, turgor normal and dry skin Neuro General: patient oriented x3 Psych Appearance: grossly normal Mental Status: mental status grossly normal Assessment & Plan Assessment & Plan (1) Barretts esophagus: Code(s): K22.70 - Ramirez's esophagus without dysplasia Category: Medical Qualifiers: Ramirez's esophagus type: without dysplasia Qualified Code(s): K22.70 - Ramirez's esophagus without dysplasia (2) GERD (gastroesophageal reflux disease): Code(s): K21.9 - Gastro-esophageal reflux disease without esophagitis Category: Medical Qualifiers: Esophagitis presence: esophagitis presence not specified Qualified C ode(s): K21.9 - Gastro-esophageal reflux disease without esophagitis (3) Constipation: Code(s): K59.00 - Constipation, unspecified Category: Medical Qualifiers: Constipation type: slow transit constipation Qualified Code(s): K59.01 - Slow transit constipation (4) Abdominal bloating: Code(s): R14.0 - Abdominal distension (gaseous) Category: Medical (5) Dysphagia: Code(s): R13.10 - Dysphagia, unspecified Category: Medical Qualifiers: Dysphagia type: pharyngoesophageal phase Qualified Code(s): R13.14 - Dy sphagia, pharyngoesophageal phase (6) Gastroparesis: Code(s): K31.84 - Gastroparesis Category: Medical (7) Schatzki's ring: Code(s): K22.2 - Esophageal obstruction Plan Continue lansoprazole daily. Sucralfate at 14:00 and at bedtime. Avoid dietary triggers and late night snacking. Staying upright for minimum 3 hours after meals discussed with patient. Continue taking Linzess. Increase fluid intake and activity to promote better bowel motility. Long discussion with patient about dietary changes. Low FODMAP diet discussed with patient. Patient reports that he has list of food recommended as well as list of food to avoid at home. Patient was encouraged to look over again. Follow-up in the office in 3 months, sooner on as needed basis. He is agreeable to this plan and verbalizes understanding of instructions. He was given the opportunity to ask questions and all questions answered. Thank you for allowing me to participate in his care Coding Level of Care Code Est Pt Level 4 (31434) Complex EM visit Add On G2211 Diagnoses Ramirez's esophagus without dysplasia K22.70 Ramirez's esophagus type: without dysplasia Gastroesophageal reflux disease, unspecified whether esophagitis present K21.9 Esophagitis presence: esophagitis presence not specified Slow transit constipation K59.01 Constipation type: slow transit constipation Abdominal bloating R14.0 Pharyngoesophageal dysphagia R13.14 Dysphagia type: pharyngoesophageal phase Gastroparesis K31.84 Schatzki's ring K22.2 Time Spent (min) 40 Comment 25 minutes spent with patient and additional 15 minutes spent reviewing his records
--- OUTSIDE RECORDS SUMMARY | 2024-10-13 19:39 | XMS_ITS | Encounter Summary ---
Author Organization [facility] Address [address] [place] [address] Care Team Providers Care Hearing Therapist Name Role Phone Saúl Maier Primary Care Provider Encounter Details Date Type Department Care Team (Late st Contact Info) Description 10/10/2024 Telephone Pulmonology [address] [phone] Sandra Soriano MA Social History Tobacco Use [...] 10/16/2024 3:00 PM EST Consult Pulmonology - [place] [address] [phone] Anabel Garvin MD [address] [place] [id number] documented as of this encounter Visit Diagnoses Not on filedocumented in this encounter Care Teams Hearing Therapist Relationship Specialty Start Date End Date Saúl Maier PA [address] [place] [id number] PCP - General Internal Medicine 03/06/19 documented as of this encounter
--- OUTSIDE RECORDS SUMMARY | 2024-10-13 19:39 | XMS_ITS | Encounter Summary ---
Author Organization [facility] Address [address] [place] [address] Care Team Providers Care Adobe Layer Helper Name Role Phone Trav Greenberg Primary Care Provider Blessing Gilmore MD Primary Care Provider Saúl Lim Primary Care Provider Jackson diane Reason for Visit * Reason Onset Date Comments Disability Eligibility 06/12/2018 Encounter Details Date Type Department Care Team Description 06/12/2018 Telephone Pulmonology - [place] [address] [facility] [address] [place] [address] Milly Barnes MD [address] [place] [address] Disability Eligibility Social History Tobacco Use Types Packs/Day Years Used Date Smoking Tobacco: Never Smokeless Tobacco: Never Alcohol Use Standard Drinks/Week Comments No 0 (1 standard drink = 0.6 oz pur e alcohol) Sex Assigned at Date Recorded Not on file documented as of this encounter Miscellaneous Notes * Telephone Encounter - Victorina Bueno - 06/12/2018 2:20 PM EDT Caller states application for disability was mailed to office on 05/30/18. Caller would like confirmation of receipt, or he will remail to office. Please call back to advise documented in this encounter Plan of Treatment Not on file documented as of this encounter Visit Diagnoses Not on filedocumented in this encounter Care Teams Adobe Layer Helper Relationship Specialty Start Date End Date Trav Greenberg PCP - General Internal Medicine 07/13/17 09/04/18 Blessing Beltran MD PCP - General Family Practice 09/05/18 03/05/19 Saúl Maier PCP - General Internal Medicine 03/06/19 documented as of this encounter
--- OUTSIDE RECORDS SUMMARY | 2024-10-13 19:39 | XMS_ITS | Clinical Summary ---
Author Organization [facility] Address [address] [address] Care Team Providers Care Fitting Room Supervisor Name Role Phone Saúl Maier Primary Care Provider [phone] Allergies No known active allergies Medications acetaminophen [...] Vaccine (#1) 2024 Insurance MEDICAID Care Teams Fitting Room Supervisor Relationship Specialty Start Date End Date Saúl Maier PA [address] [place] [address], [address] [place] [address] PCP - General Physician Manager [employer] 01/30/22
--- OUTSIDE RECORDS SUMMARY | 2024-10-13 19:39 | XMS_ITS | Clinical Summary ---
Author Organization [facility] [address] [facility] Address [address] [place] [address] Phone Care Team Providers Care Building Materials Sales Attendant Name Role Phone Saúl Maier Primary [...] Care Team Description 10/10/2024 Telephone Pulmonology - [address] [phone] Sandra Soriano MA 08/25/2024 Telephone Thoracic Surgery - [address] [phone] Ayana Hilario MA from Last 3 Months Medical History Medical History Date Comments Allergic rhinitis 07/14/2017 DX:Allergic rh initis Asthma 12/08/2016 DX:Asthma Asthma-chronic obstructive p ulmonary disease overlap syndrome (CMS/HCC) 04/16/2017 DX:Asthma-chronic o bstructive pulmonary disease overlap syndrome (HCC) Gastroesophageal reflux disease 12/08/2016 DX:Gastroesophageal reflux disease Obstructive sleep apnea syndrome 04/16/2017 DX:Obstructive sleep apnea syndrome COPD (chronic obstructive pu lmonary disease) ([facility]) 10/03/2017 DX:COPD (chronic obstructive pulmonary disease) ([facility]) Social History Tobacco Use Types Packs/Day [...] Upcoming Encounters Date Type Department Care Team ([facility] Contact Info) Description 10/16/2024 3:00 PM EST Consult Pulmonology - [address] [phone] Anabel Garvin MD [address] [place] [phone] Health Maintenance Due Date Last Done Comments [...] age to complete this topic Care Teams Building Materials Sales Attendant Relationship Specialty Start Date End Date Saúl Maier PA [address] [place], [place] [phone] PCP - General Internal Medicine 03/06/19
--- OUTSIDE RECORDS SUMMARY | 2024-10-13 19:39 | XMS_ITS | Encounter Summary ---
Author Organization [facility] Address [address] [place] [address] Care Team Providers Care Meat Wrapper Name Role Phone Saúl Maier Primary Care Provider Unavailab le Reason for Visit * Reason Comments E-prescribe Rx Request Encounter Details Date Type Department Care Team Description 04/10/2019 Refill Pulmonology - [place] [address] [facility] [address] [place] [address] Milly Barnes MD [address] [place] [address] E-prescribe Rx Request Social History [...] NO Patients current insurance carrier is: Payor: [facility] [employer]endingREPLACED BY [facility] / Plan: [facility] / Product Type: MEDICAID RISK documented in this encounter Plan of Treatment Not on file documented as of this encounter Visit Diagnoses Not on filedocumented in this encounter Care Teams Meat Wrapper Relationship Specialty Start Date End Date Saúl Maier PCP - General Internal Medicine 03/06/19 documented as of this encounter
== END 2024-10-13 18:38 ==
PROVIDERS: PCP Physician Assistant; Visit Provider Nurse Practitioner Family
DX: K22.70 Barrett's esophagus without dysplasia (principal); K21.9 Gastro-esophageal reflux disease without esophagitis; K59.01 Slow transit constipation; R14.0 Abdominal distension (gaseous); R13.14 Dysphagia, pharyngoesophageal phase; K31.84 Gastroparesis; K22.2 Esophageal obstruction
CPT/HCPCS: 99214; G2211

== ENCOUNTER → 2024-10-13 15:47 | Outpatient (BNVA) | payer OTHER, SELFPAY | PROVIDERS: PCP Physician Assistant; Visit Provider Nurse Practitioner Family | DX: K21.9 Gastro-esophageal reflux disease without esophagitis (principal); K31.84 Gastroparesis; K22.70 Barrett's esophagus without dysplasia; K59.01 Slow transit constipation; K22.2 Esophageal obstruction; R14.0 Abdominal distension (gaseous); R13.14 Dysphagia, pharyngoesophageal phase; Z79.899 Other long term (current) drug therapy | CPT/HCPCS: 99212 ==

== ENCOUNTER 2024-11-01 09:00 | Emergency (ER) | payer OTHER, SELFPAY ==
--- NOTE | ~2024-11-01 | XR_ITS ---
CLINICAL HISTORY: sob, wheezing 1 view chest x-ray Comparison: CR/ID/SR - XR CHEST 1V - 06/27/24 10:50 EDT Findings: Lungs are well inflated. Cardiac silhouette is within normal limits. No focal areas of consolidation. Mild perihilar interstitial prominence. No pleural effusion. Degenerative change of both shoulder joints. IMPRESSION: Perihilar bronchitis. This document has been electronically signed by: Russell Lau MD on 11/01/2024 09:56:21
--- NOTE | ~2024-11-01 | CT_ITS ---
CLINICAL HISTORY: acute onset confusion CT head without contrast Comparison: CT/OR/SR - CT HEAD/BRAIN WO IV CON - 07/05/24 10:07 EDT Findings: Images degraded by patient motion. Patient motion improved, but does not completely resolve, on repeat imaging. The size and shape of the ventricular system is within normal limits for this patient's age. Attenuation of the brain parenchyma is within normal limits. Vora-white differentiation is well preserved. Midline shift or mass effect. No intracranial hemorrhage. No calvarial fractures. IMPRESSION: 1. No acute intracranial findings given the limitation of the patient motion. This document has been electronically signed by: Russell Lau MD on 11/01/2024 09:54:25
--- NOTE | 2024-11-01 09:06 | ECG_ITS ---
Test Reason : SOB Blood Pressure : */* mmHG Vent. Rate : 100 BPM Atrial Rate : 100 BPM P-R Int : 160 ms QRS Dur : 90 ms QT Int : 352 ms P-R-T Axes : 43 9 47 degrees QTcB Int : 454 ms Normal sinus rhythm Normal ECG When compared with ECG of 13-Jun-2024 06:36, Nonspecific T wave abnormality, improved in Lateral leads Referred By: Gretta Marmolejo Electronically Signed By: SWAPNA DURON MD
--- NOTE | 2024-11-01 09:08 | ED.AMS ---
HPI - Altered Mental Status General Chief Complaint: General Medical Stated Complaint: AMS FEVER X 2 DAYS Source: patient, EMS and old records reviewed Mode of arrival: EMS Limitations: altered mental status History of Present Illness ED Provider: Wilian Marmolejo PA-C HPI narrative: 43 yo male with history of anxiety, depression, seizure disorder, GERD, asthma, MEHNAZ on CPAP, gasritis, hypothyroidism, who reportedly was recently diagnosed with the Flu who presents to the ER from home via EMS for evaluation of confusion and fever. He lives at home with his parents who report he was last seen normal last night around 8-9pm. At 3am he was walking around the house confused. This morning he had a fever of 100.4 and was disoriented and confused. Parents called 911. There was no report of seizure activity. No trauma or falls. Patient arrives to the ER awake and alert. He states I don't know who I am. He endorses SOB and states he has been coughing a lot lately. He denies chest pain. He reports pain in his legs and back. MD complaint: confusion Onset (ago): hour(s) Timing confirmed by: family member Severity: moderate Consistency of symptoms: getting Worse Context: recent fever Associated symptoms: cough and shortness of breath Related Data Home Medications ?Medication ?Instructions ?Recorded ?Confirmed tiotropium bromide 2.5 2 puff PO DAILY PRN Shortness Of 05/20/23 10/01/24 mcg/actuation mist for inhalation Breath (Spiriva Respimat) clobazam 10 mg tablet 5 mg PO BID 12/11/23 10/01/24 hydroxyzine HCl 25 mg tablet 25 mg PO BEDTIME 06/11/24 10/01/24 lacosamide 100 mg tablet mg PO 06/18/24 10/01/24 Previous Rx's ?Medication ?Instructions ?Recorded Sharps container #1 ea 12/18/22 aspirin 81 mg tablet,delayed 81 mg PO DAILY 90 days #90 tabs 01/03/23 release bisacodyl 5 mg tablet,delayed 10 mg (2 x 5 mg) PO BEDTIME #180 05/14/23 release (Dulcolax (bisacodyl)) tabs gabapentin 300 mg capsule 300 mg PO BEDTIME PRN Pain 30 days 10/29/23 #30 caps dupilumab 300 mg/2 mL subcutaneous 300 mg (2 mL) subcut Q2W 28 days 11/16/23 pen injector (Dupixent) #4 mL atorvastatin 40 mg tablet 40 mg PO BEDTIME 90 days #90 tabs 03/12/24 carvedilol 3.125 mg tablet 3.125 mg PO BID 90 days #180 tabs 03/12/24 lisinopril 10 mg tablet 10 mg PO DAILY 90 days #90 tabs 03/12/24 metformin 500 mg tablet,extended 500 mg PO DAILY 90 days #90 tabs 03/12/24 release 24 hr montelukast 10 mg tablet 10 mg PO BEDTIME 90 days #90 tabs 03/12/24 cholecalciferol (vitamin D3) 50 100 mcg (2 x 50 mcg (2,000 unit)) 04/14/24 mcg (2,000 unit) capsule PO DAILY 90 days #180 caps oxcarbazepine 300 mg tablet 300 mg PO BID #180 tabs 05/02/24 (Trileptal) sertraline 100 mg tablet 100 mg PO DAILY 90 days #90 tabs 06/23/24 nystatin 100,000 unit/mL oral 5 ml PO DAILY PRN thrush 30 days 07/09/24 suspension #200 mL guaifenesin 600 mg tablet, 600 mg PO BID #20 tabs 07/22/24 extended release 12 hr linaclotide 290 mcg capsule 290 mcg PO QAM #30 caps 08/06/24 (Linzess) sucralfate 1 gram tablet 1 g PO BID #60 tabs 08/06/24 codeine 10 mg-guaifenesin 100 mg/5 10 ml PO Q4-6H PRN cough #473 mL 08/18/24 mL oral liquid theophylline 400 mg 200 mg (1/2 x 400 mg) PO DAILY #45 08/18/24 tablet,extended release 24 hr tabs lansoprazole 30 mg capsule,delayed 30 mg PO DAILY #90 caps 09/18/24 release Ventolin HFA 90 mcg/actuation 2 puff PO Q6H PRN for dyspnea #3 ea 09/22/24 aerosol inhaler (albuterol sulfate) albuterol 90 mcg-budesonide 80 2 inh inhalation TID PRN shortness 09/22/24 mcg/actuation HFA aerosol inhaler of breath #10.7 grams (Airsupra) prednisone 10 mg tablet 10 mg PO DIRECTED #50 tabs 09/22/24 Synthroid 25 mcg tablet See Rx Instructions PO DAILY #30 09/30/24 (levothyroxine) tabs Synthroid 200 mcg tablet 200 mcg PO DAILY #30 tabs 10/01/24 (levothyroxine) prednisone 20 mg tablet 40 mg (2 x 20 mg) PO DAILY #10 tabs 11/01/24 Allergies Allergy/AdvReac Type Severity Reaction Status Date / Time cat dander [CATS] Allergy Mild GENERALIZED Verified 11/01/24 09:33 ALLERGY SYMPTOMS dog dander [DOGS] Allergy Mild GENERALIZED Verified 11/01/24 09:33 ALLERGY SYMPTOMS tree and shrub pollen [TREE] Allergy Mild GENERALIZED Verified 11/01/24 09:33 ALLERGY SYMPTOMS FROM P[place] TREES Review of Systems Review of Systems: Yes all other systems are reviewed and are negative FORMERLY [facility] Past Medical History Medical History Uvulitis Claustrophobia Takotsubo cardiomyopathy Schatzki's ring Gastritis Sleep apnea Diabetes Gastroparesis Migraine headache with aura Enlarged liver Postoperative hypothyroidism Thyroid cancer Vitamin D deficiency Multinodular thyroid Seizures ABPA (allergic bronchopulmonary aspergillosis) Seizures Asthma Surgical History S/P total thyroidectomy History of esophagogastroduodenoscopy (EGD) S/P removal of thyroid nodule History of cholecystectomy Family History Family History Maternal Grandmother Emphysema, unspecified Father Diabetes Mother No problems noted. Paternal Grandfather Liver cancer Colon cancer Social History Social History Household Members: Family Housing: Apartment Are you a primary hourly caregiver to a significant other at home: No Do you presently have visiting nurse or other home services: No Alcohol intake: never Comment: has poor balance Patient Tobacco Use Status: Never used Tobacco Smoked in Last 30 Days: No e-Cigarette/Vaping Use: Never Used Second Hand Smoke Exposure: No Use of substances other than those prescribed or required for medical reasons: Yes Substance Use Type: Marijuana Substance Use Frequency: Daily Last Used Substance: Hours (ago) Advance Directives: Yes Advance Directives Information Provided: No Advance Directives on File: No Advance Directives Date on File: 05/20/23 Do you have a plan to hurt others: No Plan service: No Current occupational status: disabled Current occupation: rt handed Cognitive needs: No Hearing needs: No Vision needs: No Physical Exam ED Vital Signs: Vital Signs - 24 hr 11/01/24 09:32 11/01/24 09:36 11/01/24 12:25 Temperature 1004 F H 98.8 F Pulse Rate 100 97 98 Respiratory Rate 16 23 H 18 Blood Pressure 127/84 118/84 Pulse Oximetry 96 100 Oxygen Delivery Method Room Air Room Air BMI result Body Mass Index 25.7 Appearance: Alert. Oriented X1. Head: normocephalic, atraumatic. Eyes: Pupils equal, round and reactive to light. ENT: Pharynx normal. No tonsillar swelling or exudate. Neck: Normal inspection. Neck supple. CVS: Normal heart rate and rhythm. Pulses normal. Respiratory: Mild respiratory distress. Breath sounds with diffuse wheezes. Abdomen: Soft and nontender. +BS x4 Skin: Skin warm and dry. Normal skin color. Normal skin turgor. No rashes. Extremities: No lower extremity edema. No joint swelling. Neuro/psych: Oriented X 1. Moves all extremities spontaneously, follows simple commands. answers questions appropriately. confused. CN II-XII intact. Normal speech. Course Reevaluation(s) Reevaluation #1: mental status significantly improved. he has covid. he is now oriented. breathing improved after neb treatment Time: 12:09 Medications Administered Discontinued Medications Generic Name Dose Route Start Last Admin Trade Name Joel PRN Reason Stop Dose Admin Acetaminophen 975 mg 11/01/24 09:58 11/01/24 10:13 Acetaminophen 325 Mg Tablet PO 11/01/24 09:59 975 mg ONCE ONE Administration Albuterol Sulfate 2.5 mg/ 0 mg 11/01/24 09:35 11/01/24 09:40 Albuterol/Ipratropium 3 ml INHALE 11/01/24 09:36 5 dose ONCE ONE Administration Medical Decision Making Medical Decision Making MDM Narrative: 43 yo male with history of seizure disorder, asthma, anxiety/depression, who presents to the ER for evaluation of fever and confusion. Low grade temp on arrival. awake to take tylenol. initially disoriented. CT head motion degraded but no acute intracranial abnormalities. patient found to have COVID-19. other family members are home sick as well given neb for wheezing with improvement. cxr with some peribronchial thickening. will treat with prednisone x5 days. he has nebs at home. upon re-evaluation patient's mentation has normalized, now AAO x3, nonfocal. steady gait stable for d/c home Differential Diagnosis Differential Diagnoses: The differential diagnosis associated with the presentation includes post-ictal state, acute metabolic encephalopathy 2/2 fever, covid, flu, viral illness, hypercarbia, ingestion, malingering Admission/Observation Consideration of admission/observation: Escalation of care including admission/observation considered Lab Data MDM Lab Attestation statement: I reviewed the patient's lab results. leukopenia 11/01/24 10:41 11/01/24 10:38 Labs: Lab Results 11/01/24 11/01/24 11/01/24 Range/Units 10:38 10:39 10:40 WBC (4.8-10.8) X10*3/uL RBC (4.60-5.80) X10*6/uL Hgb (14.0-18.0) g/dl Hct (42.0-52.0) % MCV (80.0-98.0) fL MCH (27.0-33.0) pg MCHC (31.0-36.0) g/dl RDW (11.0-16.0) % Plt Count (160-400) X10*3/uL MPV (9.4-12.4) fL Immature Gran % (Auto) (0.0-0.4) % Neut % (Auto) (45-73) % Lymph % (Auto) (20-40) % [place] % (Auto) (2-11) % Eos % (Auto) (0-4) % Baso % (Auto) (0-2) % Lymph # (Auto) (1.2-4.9) X10*3/uL [place] # (Auto) (0.1-1.2) X10*3/uL Eos # (Auto) (0.0-0.4) X10*3/uL Baso # (Auto) (0.0-0.2) X10*3/uL Abs Immat Gran (auto) (0.00-0.03) X10*3/uL Absolute Neuts (auto) (2.0-8.3) x10*3/uL Absolute Nucleated RBC (0.0-0.012) X10*3/uL Nucleated RBC % (auto) (0.0-0.2) /100WBC VBG pH (7.32-7.43) VBG pCO2 mmHg VBG pO2 mmHg VBG HCO3 (22-26) mmol/L VBG O2 Saturation % VBG Base Excess mmol/L Sodium 135 (135-145) mmol/L Potassium 4.2 (3.3-5.1) mmol/L Chloride 103 (96-108) mmol/L Carbon Dioxide 22 (22-29) mmol/L Anion Gap 14 (12-20) BUN 7 L (9-16) mg/dL Creatinine 0.63 (0.5-1.4) mg/dL Estim Creat Clear Calc 125.2 Estimated GFR > 60 Random Glucose 103 (60-115) mg/dL Lactic Acid (0.5-2.0) mmol/L Calcium 9.5 D (8.4-10.2) mg/dL Magnesium 1.5 L (1.6-2.6) mg/dL Total Bilirubin 0.2 (0.0-1.0) mg/dL Direct Bilirubin < 0.2 (0.0-0.5) mg/dL AST 19 (5-37) U/L ALT 27 (0-40) U/L Alkaline Phosphatase 77 (39-117) U/L Ammonia 30 (13-55) umol/L Troponin I High Sens 5.2 D (<3.5-35.0) ng/L B-Natriuretic Peptide 167 H (<100) pg/mL Total Protein 7.0 (6.5-8.0) g/dL Albumin 4.4 (3.5-5.0) g/dL TSH < 0.01 L (0.32-4.0) uIU/mL Free T4 0.84 (0.71-1.85) ng/dL Ethyl Alcohol < 10 mg/dL Influenza Type A (PCR) NEGATIVE (Negative) Influenza Type B (PCR) NEGATIVE (Negative) RSV RNA Qual (PCR) NEGATIVE (Negative) SARS-CoV-2 RNA (RT-PCR) POSITIVE A (Negative) 11/01/24 11/01/24 Range/Units 10:41 10:54 WBC 3.2 L (4.8-10.8) X10*3/uL RBC 5.04 (4.60-5.80) X10*6/uL Hgb 14.4 (14.0-18.0) g/dl Hct 41.4 L (42.0-52.0) % MCV 82.1 (80.0-98.0) fL MCH 28.6 (27.0-33.0) pg MCHC 34.8 (31.0-36.0) g/dl RDW 12.6 (11.0-16.0) % Plt Count 225 D (160-400) X10*3/uL MPV 8.4 L (9.4-12.4) fL Immature Gran % (Auto) 0.3 (0.0-0.4) % Neut % (Auto) 78.0 H (45-73) % Lymph % (Auto) 8.2 L (20-40) % [place] % (Auto) 11.6 H (2-11) % Eos % (Auto) 1.6 (0-4) % Baso % (Auto) 0.3 (0-2) % Lymph # (Auto) 0.3 L (1.2-4.9) X10*3/uL [place] # (Auto) 0.4 (0.1-1.2) X10*3/uL Eos # (Auto) 0.1 (0.0-0.4) X10*3/uL Baso # (Auto) 0.0 (0.0-0.2) X10*3/uL Abs Immat Gran (auto) 0.01 (0.00-0.03) X10*3/uL Absolute Neuts (auto) 2.5 (2.0-8.3) x10*3/uL Absolute Nucleated RBC 0.000 (0.0-0.012) X10*3/uL Nucleated RBC % (auto) 0.0 (0.0-0.2) /100WBC VBG pH 7.35 (7.32-7.43) VBG pCO2 44 mmHg VBG pO2 53 mmHg VBG HCO3 24 (22-26) mmol/L VBG O2 Saturation 80.0 % VBG Base Excess -0.9 mmol/L Sodium (135-145) mmol/L Potassium (3.3-5.1) mmol/L Chloride (96-108) mmol/L Carbon Dioxide (22-29) mmol/L Anion Gap (12-20) BUN (9-16) mg/dL Creatinine (0.5-1.4) mg/dL Estim Creat Clear Calc Estimated GFR Random Glucose (60-115) mg/dL Lactic Acid 1.7 (0.5-2.0) mmol/L Calcium (8.4-10.2) mg/dL Magnesium (1.6-2.6) mg/dL Total Bilirubin (0.0-1.0) mg/dL Direct Bilirubin (0.0-0.5) mg/dL AST (5-37) U/L ALT (0-40) U/L Alkaline Phosphatase (39-117) U/L Ammonia (13-55) umol/L Troponin I High Sens (<3.5-35.0) ng/L B-Natriuretic Peptide (<100) pg/mL Total Protein (6.5-8.0) g/dL Albumin (3.5-5.0) g/dL TSH (0.32-4.0) uIU/mL Free T4 (0.71-1.85) ng/dL Ethyl Alcohol mg/dL Influenza Type A (PCR) (Negative) Influenza Type B (PCR) (Negative) RSV RNA Qual (PCR) (Negative) SARS-CoV-2 RNA (RT-PCR) (Negative) ABG Data Attestation ABG: I personally reviewed and interpreted this ABG as follows: Interpretation: normal pH without acute hypercarbia to suggest resp acidosis Independent Interpretation I performed an independent interpretation of an: EKG and Plain X-Ray Interpretation: ekg with normal sinus rhythm, hr 100, high voltage qrs v4-v6 cxr without focal infiltrate or effusion Radiology Impression Discussion of test interpretation with radiology: I have reviewed the radiologist's reading. Independent Historian Clinical information obtained from an independent historian. History obtained from or confirmed by: EMS External Record Review External record reviewed: Office record, Outpatient record, Prior outpatient labs and Prior outpatient radiology Prescription Management I considered prescription management with: Pain Medication and Antibiotic Chronic Conditions Patient?s care impacted by: Other (asthma, seizures) Critical Care Time Critical Care Time Critical Care Time: Yes Total Critical Care Time: 32 Attestation: I have personally provided critical care time exclusive of time spent on separately billable procedures. Time includes review of lab data, radiology results, bedside reassessment of VS and mental status, and monitoring for potential decompensation. Intervention performed as documented. Discharge Plan Discharge Clinical Impression: Acute metabolic encephalopathy, COVID-19 Patient Disposition: Home, Self-Care Instructions: Encephalopathy (DC), COVID-19 (Coronavirus Disease 2019) (ED) Additional Instructions: You were found to be COVID-19 POSITIVE today. Take the prescribed prednisone to help with the inflammation in your lungs. Rest. Drink plenty of fluids. Do not go out in public for the next 10 days. Take over the counter cold/flu medications as needed for your symptoms. Take Tylenol and/or Motrin as needed for fevers and body aches. Follow up with your doctor this week. If you shortness of breath worsens , if you develop difficulty breathing or any other concerning symptom come back to the ER for further evaluation. Prescriptions: New prednisone 20 mg tablet 40 mg PO DAILY Qty: 10 0RF No Action (DME) Sharps container See Rx Instructions .Route .MEDSUPPLY Qty: 1 0RF Rx Instructions: As directed aspirin 81 mg tablet,delayed release (DR/EC) 81 mg PO DAILY 90 Days Qty: 90 2RF gabapentin 300 mg capsule 300 mg PO BEDTIME PRN (Reason: Pain) 30 Days Qty: 30 3RF Dupixent Pen 300 mg/2 mL pen injector 300 mg subcut Q2W 28 Days Qty: 4 12RF cholecalciferol (vitamin D3) 50 mcg (2,000 unit) capsule 100 mcg PO DAILY 90 Days Qty: 180 2RF sertraline 100 mg tablet 100 mg PO DAILY 90 Days Qty: 90 2RF theophylline 400 mg tablet extended release 24 hr 200 mg PO DAILY Qty: 45 2RF codeine-guaifenesin 10-100 mg/5 mL liquid 10 ml PO Q4-6H PRN (Reason: cough) Qty: 473 0RF lansoprazole 30 mg capsule,delayed release(DR/EC) 30 mg PO DAILY Qty: 90 1RF levothyroxine [Synthroid] 25 mcg tablet See Rx Instructions PO DAILY Qty: 30 6RF Rx Instructions: Take half tablet daily along with your 200 mcg tablet on Sunday to only levothyroxine [Synthroid] 200 mcg tablet 200 mcg PO DAILY Qty: 30 5RF Spiriva Respimat 2.5 mcg/actuation mist 2 puff PO DAILY PRN (Reason: Shortness Of Breath) oxcarbazepine [Trileptal] 300 mg tablet 300 mg PO BID Qty: 180 0RF metformin 500 mg tablet extended release 24 hr 500 mg PO DAILY 90 Days Qty: 90 2RF montelukast 10 mg tablet 10 mg PO BEDTIME 90 Days Qty: 90 2RF atorvastatin 40 mg tablet 40 mg PO BEDTIME 90 Days Qty: 90 3RF carvedilol 3.125 mg tablet 3.125 mg PO BID 90 Days Qty: 180 2RF lisinopril 10 mg tablet 10 mg PO DAILY 90 Days Qty: 90 3RF clobazam 10 mg tablet 5 mg PO BID hydroxyzine HCl 25 mg tablet 25 mg PO BEDTIME lacosamide 100 mg tablet PO nystatin 100,000 unit/mL suspension 5 ml PO DAILY PRN (Reason: thrush) 30 Days Qty: 200 6RF Rx Instructions: administer 1/2 of dose in each side of the mouth. SWISH AND SPIT albuterol sulfate [Ventolin HFA] 90 mcg/actuation HFA aerosol inhaler 2 puff PO Q6H PRN (Reason: for dyspnea) Qty: 3 4RF Airsupra 90-80 mcg/actuation HFA aerosol inhaler 2 inh inhalation TID PRN (Reason: shortness of breath) Qty: 10.7 6RF prednisone 10 mg tablet 10 mg PO DIRECTED Qty: 50 0RF Rx Instructions: Take 4 tabs daily for 5 days, then go down by 1 tab every 5 days bisacodyl [Dulcolax (bisacodyl)] 5 mg tablet,delayed release (DR/EC) 10 mg PO BEDTIME Qty: 180 4RF guaifenesin 600 mg tablet extended release 12hr 600 mg PO BID Qty: 20 0RF sucralfate 1 gram tablet 1 g PO BID Qty: 60 2RF Linzess 290 mcg capsule 290 mcg PO QAM Qty: 30 4RF Interventions: ED Discharge Assessment Last Done: 11/01/24 12:25 Discharge Date/Time: 11/01/24 12:26 Print Language: Icelandic
[2024-11-01 09:32] VITALS: BP 127/84; PULSE 100; RESP 16; TEMP 1004; TEMP 540; O2SAT 96; BMI 25.7
[2024-11-01 09:36] VITALS: PULSE 97; RESP 23; O2SAT 97
[2024-11-01] MEDS: Albuterol Sulfate 2.5 MG, Albuterol/Iprat 2.5/0.5MG 3 ML 3 ML INHALE (09:40)
[2024-11-01] MEDS: Acetaminophen 325 MG TABLET 975 MG PO (10:13)
[2024-11-01 10:50] LABS: MANUAL DIFF FLAG NO
[2024-11-01 10:52] LABS: Basophils Percent Auto 0.3 % (0-2); Eosinophils Absolute Auto 0.1 X10*3/uL (0.0-0.4); Eosinophils Percent Auto 1.6 % (0-4); Hematocrit 41.4 % (42.0-52.0); Hemoglobin 14.4 g/dl (14.0-18.0); Imm Gran Abs Auto 0.01 X10*3/uL (0.00-0.03); Imm Gran Pct Auto 0.3 % (0.0-0.4); Lymphocytes Absolute Auto 0.3 X10*3/uL (1.2-4.9); Lymphocytes Percent Auto 8.2 % (20-40); Mean Corpuscular HGB Conc 34.8 g/dl (31.0-36.0); Mean Corpuscular Hemoglobin 28.6 pg (27.0-33.0); Mean Corpuscular Volume 82.1 fL (80.0-98.0); Mean Platelet Volume 8.4 fL (9.4-12.4); Monocytes Absolute Auto 0.4 X10*3/uL (0.1-1.2); Monocytes Percent Auto 11.6 % (2-11); Neutrophils Absolute Auto 2.5 x10*3/uL (2.0-8.3); Platelet Count 225 X10*3/uL (160-400); Red Blood Count 5.04 X10*6/uL (4.60-5.80); Red Cell Distribution Width 12.6 % (11.0-16.0); White Blood Count 3.2 X10*3/uL (4.8-10.8)
[2024-11-01 11:01] LABS: Venous Blood Gas Refer to POC result
[2024-11-01 11:01] LABS: VBG Base Excess -0.9 mmol/L; VBG HCO3 24 mmol/L (22-26); VBG pCO2 44 mmHg; VBG pH 7.35 (7.32-7.43); VBG pO2 53 mmHg
[2024-11-01 11:05] LABS: Ammonia 30 umol/L (13-55)
[2024-11-01 11:10] LABS: Lactic Acid 1.7 mmol/L (0.5-2.0)
[2024-11-01 11:12] LABS: Alanine Aminotransferase 27 U/L (0-40); Albumin Level 4.4 g/dL (3.5-5.0); Alkaline Phosphatase 77 U/L (39-117); Anion Gap 14 (12-20); Aspartate Amino Transferase 19 U/L (5-37); Bilirubin Direct < 0.2 mg/dL (0.0-0.5); Bilirubin Total 0.2 mg/dL (0.0-1.0); Blood Urea Nitrogen 7 mg/dL (9-16); Calcium 9.5 mg/dL (8.4-10.2); Carbon Dioxide 22 mmol/L (22-29); Chloride 103 mmol/L (96-108); Creatinine Clr Calc Pharmacy 125.2; Estimated Glomerular Filt Rate > 60; Glucose Random 103 mg/dL (60-115); Magnesium 1.5 mg/dL (1.6-2.6); Potassium 4.2 mmol/L (3.3-5.1); Sodium 135 mmol/L (135-145)
[2024-11-01 11:16] LABS: Ethanol < 10 mg/dL
[2024-11-01 11:16] LABS: B Type Natriuretic Peptide 167 pg/mL (<100)
[2024-11-01 11:19] LABS: Troponin-I High Sensitivity 5.2 ng/L (<3.5-35.0)
[2024-11-01 11:28] LABS: Influenza A PCR NEGATIVE (Negative); Influenza B PCR NEGATIVE (Negative); Resp Syncy Virus RNA Qual PCR NEGATIVE (Negative); SARS COV2 PCR INHOUSE POSITIVE (Negative)
[2024-11-01 11:37] LABS: TSH reflex Free T4 < 0.01 uIU/mL (0.32-4.0)
[2024-11-01 12:14] LABS: Free T4 (Free Thyroxine) 0.84 ng/dL (0.71-1.85)
[2024-11-01 12:25] VITALS: BP 118/84; PULSE 98; RESP 18; TEMP 37.1; O2SAT 100
== END 2024-11-01 12:26 | disposition home or self-care (01) ==
PROVIDERS: Physician Assistant; Emergency Provider Emergency Medicine; PCP Physician Assistant
DX: G93.41 Metabolic encephalopathy (principal); U07.1 COVID-19; R41.82 Altered mental status, unspecified; R50.9 Fever, unspecified; R06.02 Shortness of breath; Z79.899 Other long term (current) drug therapy
CPT/HCPCS: 0241U; 36415; 70450; 71045; 80048; 80076; 80307; 82140; 82803; 83605; 83735; 83880; 84439; 84443; 84484; 85025; 93005; 94640; 99285

== ENCOUNTER → 2024-11-01 09:06 | Outpatient (BNV) | payer OTHER, SELFPAY | PROVIDERS: Emergency Provider Emergency Medicine; PCP Physician Assistant; Visit Provider Internal Medicine Cardiovascular Disease | DX: R06.02 Shortness of breath (principal) | CPT/HCPCS: 93010 ==

== ENCOUNTER → 2024-11-01 09:07 | Outpatient (BNV) | payer OTHER, SELFPAY | PROVIDERS: Emergency Provider Emergency Medicine; PCP Physician Assistant; Visit Provider Radiology Diagnostic Radiology | DX: R41.82 Altered mental status, unspecified (principal); R06.2 Wheezing; R06.02 Shortness of breath | CPT/HCPCS: 70450; 71045 ==

== ENCOUNTER 2024-11-11 08:12 | Outpatient (AMB) | payer OTHER, SELFPAY ==
[2024-11-11 08:25] VITALS: BP 134/88; PULSE 70; O2SAT 92; BMI 27.7
--- NOTE | 2024-11-11 08:25 | A.OFFVIS_ITS ---
Vital Signs 3 11/11/24 08:25 Height 5 ft 4 in Weight 161 lb 9.581 oz BMI 27.7 BP 134/88 Blood Pressure Location Lt brachial Position Sitting Pulse 70 Pulse Source Pulse Oximeter Pulse Oximetry (%) 92 Oxygen Delivery Method Room Air Intake Visit Reasons: MED f/u Intake Note: Patient present today for MED follow up. Wind Farm Support Specialist Required: No Accompanied by: Self / Same As Patient Allergies cat dander [CATS] Allergy (Mild, Verified 11/11/24 08:28) GENERALIZED ALLERGY SYMPTOMS dog dander [DOGS] Allergy (Mild, Verified 11/11/24 08:28) GENERALIZED ALLERGY SYMPTOMS tree and shrub pollen [TREE] Allergy (Mild, Verified 11/11/24 08:28) GENERALIZED ALLERGY SYMPTOMS FROM [place] Medication List - Last Reconciled 11/11/24 by Racquel Salazar MD albuterol-budesonide 90-80 mcg/actuation (Airsupra) 2 inhalations inhalation TID PRN aspirin 81 mg PO DAILY 90 days atorvastatin 40 mg PO BEDTIME 90 days bisacodyl (Dulcolax (bisacodyl)) 10 mg (2 x 5 mg) PO BEDTIME carvedilol 3.125 mg PO BID 90 days cholecalciferol (vitamin D3) 100 mcg (2 x 50 mcg (2,000 unit)) PO DAILY 90 days clobazam 5 mg PO BID codeine-guaifenesin 10-100 mg/5 mL 10 mL PO Q4-6H PRN dupilumab (Dupixent) 300 mg (2 mL) subcut Q2W 28 days gabapentin 300 mg PO BEDTIME PRN 30 days guaifenesin ER 600 mg PO BID hydroxyzine HCl 25 mg PO BEDTIME lacosamide mg PO lansoprazole 30 mg PO DAILY linaclotide (Linzess) 290 mcg PO QAM lisinopril 10 mg PO DAILY 90 days metformin ER 500 mg PO DAILY 90 days montelukast 10 mg PO BEDTIME 90 days nystatin 5 mL PO DAILY PRN 30 days oxcarbazepine (Trileptal) 300 mg PO BID prednisone 40 mg (2 x 20 mg) PO DAILY prednisone 10 mg PO DIRECTED sertraline 100 mg PO DAILY 90 days [Sharps container As directed] sucralfate 1 g PO BID Synthroid (levothyroxine) 200 mcg PO DAILY NS Synthroid (levothyroxine) Take half tablet daily along with your 200 mcg tablet on Sunday to only NS theophylline ER 200 mg (1/2 x 400 mg) PO DAILY tiotropium bromide 2.5 mcg/actuation (Spiriva Respimat) 2 puffs PO DAILY PRN Ventolin HFA 90 mcg/actuation (albuterol sulfate) 2 puffs PO Q6H PRN NS HPI Comments Details: 43-year-old male with past medical history of seizure disorder, who is seen today for follow up of 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 JAMIR indeterminate response to therapy History of PTC in detail 11/06/2020: Diagnosed with multinodular thyroid 06/16/2021: FNA of right midpole 1.2 cm thyroid nodule with cytology revealing atypia of undetermined significance (Curtis category 3). Afirma was suspicious, and an HRAS mutation was present with a 75% risk of malignancy 11/21/2021: Underwent total thyroidectomy with Dr. Yunior Carlos, pathology revealed classic PTC, multifocal with 3 foci (right upper 1.1 cm, right mid of 0.5 cm and left mid 0.6 cm). No angioinvasion, no lymphatic invasion, no mg neural invasion. Margins were negative. 0/3 lymph nodes examined positive for Mets. Calcified as AJCC stage I, pT1b N0. JAMIR low risk of recurrence. 02/2022: Opted for I 131 ablation which was to be completed via Thyrogen stimulation. However unfortunately after receiving his 1st dose of Thyrogen, he developed chest pressure and was hospitalized for cardiac concerns. Cardiac workup was negative but during the hospitalization he had multiple seizures. 03/15/2022 labs showed TSH 50.8, TG 0.6, TG antibody less than 1 11/22/2022: Ultrasound head and neck: Identified multiple right neck lymph nodes at level 2 and 4 with normal architecture, with right level 2 lymph node measuring up to 2.1 cm. Left neck level 2 and level 4 lymph node also identified with normal architecture measuring up to 2.1 cm in level 2. 04/23/2023: TSH 49.3, no thyroglobulin done, unclear last TSH was so high, does not seem like Thyrogen was administered, patient does not remember but maybe he was not on levothyroxine during this time 10/01/2023: TSH 69.2, TG 4.6, TG antibody less than 1, I do not see a whole-body scan system, likely thyroid hormone withdrawal 01/08/2024: TSH 1.51, free T4 1.08 04/14/2024: TSH 0.11, free T4 0.96 05/15/2024: Ultrasound neck showed bilateral normal-looking cervical lymph nodes, no abnormal lymph nodes identified. 05/09/2024 labs TSH of 2.62 with free T4 of 0.88, thyroglobulin 0.7 TG antibody less than 1 05/15/24:levo increased from 200 to 225 Interval history 08/11/2024: Synthroid change due to 112.5 mcg daily (200+ half of 25 mcg tablets) 09/30/2024: TSH less than 0.01, free T4 1.96 , TG 0.5, TG antibody undetectable 10/01/2024: Synthroid change to 212.5 mcg Sunday to Sunday (we had told him till ) and 200 mcg tablet Sunday to Sunday. 10/15/2024: US neck Normal-appearing bilateral lymph nodes, with no suspiciously enlarged cervical lymph nodes. 11/01/2024: TSH less than 0.01, free T4 0.84 The patient experiences intermittent heart palpitations but cardiac evaluation has shown no abnormalities. He is following up with a coal cager regarding recent imaging. The patient has tremors in the right hand and has been managing symptoms with an epilepsy specialist. Recent diagnostics showed subclinical seizure activity, and there is no recent history of hospitalization for seizures. Additionally, the patient reports visual difficulties unrelated to current conditions. He does report that he thinks he might have gotten prescriptions for both Synthroid and generic levothyroxine at some point in the last few months and he was taking both and was not sure if they were the same medicine. Never smoker No family history of thyroid cancer No history of head or neck radiation Physical exam General: sitting comfortably in bed in no acute distress HEENT: normocephalic/atraumatic, moist oral mucosa Neck: supple, symmetrical, no thyromegaly , no dorsocervical or supraclavicular fat pads Cardiac: normal heart sounds Pulm: normal breath sounds B/L, no added breath sounds Abd: not distended, no tenderness Extremities: no edema, no signs of myxedema Laboratory Tests 01/11/21 01/11/21 12/06/21 06:45 06:45 06:32 TSH 1.13 1.18 11.81 H Free T4 1.06 0.95 Thyroglobulin Thyroglobulin Antibody 12/06/21 01/18/22 01/19/22 06:32 06:22 10:00 TSH 13.96 H 1.46 1.23 Free T4 1.15 Thyroglobulin <0.1 L Thyroglobulin Antibody 03/15/22 07/27/22 11/27/22 06:07 06:24 07:32 TSH 50.80 H 0.45 0.05 L Free T4 1.16 1.52 1.31 Thyroglobulin 0.6 L <0.1 L Thyroglobulin Antibody <1 <1 02/13/23 04/23/23 05/11/23 07:03 06:27 06:15 TSH 11.83 H 49.31 H 0.07 L Free T4 1.14 0.83 1.87 H Thyroglobulin 0.5 H 0.2 H Thyroglobulin Antibody <1 <1 10/01/23 10/01/23 01/08/24 06:37 06:37 06:29 TSH 55.33 H 69.20 H 1.51 Free T4 1.19 1.08 Thyroglobulin 4.6 H Thyroglobulin Antibody <1 04/14/24 05/09/24 07:06 14:33 TSH 0.11 L 2.62 Free T4 0.96 0.88 Thyroglobulin 0.7 L Thyroglobulin Antibody <1 Laboratory Tests 01/11/21 01/11/21 12/06/21 06:45 06:45 06:32 TSH 1.13 1.18 11.81 H Free T4 1.06 0.95 Thyroglobulin Thyroglobulin Antibody 12/06/21 01/18/22 01/19/22 06:32 06:22 10:00 TSH 13.96 H 1.46 1.23 Free T4 1.15 Thyroglobulin <0.1 L Thyroglobulin Antibody 03/15/22 07/27/22 11/27/22 06:07 06:24 07:32 TSH 50.80 H 0.45 0.05 L Free T4 1.16 1.52 1.31 Thyroglobulin 0.6 L <0.1 L Thyroglobulin Antibody <1 <1 02/13/23 04/23/23 05/11/23 07:03 06:27 06:15 TSH 11.83 H 49.31 H 0.07 L Free T4 1.14 0.83 1.87 H Thyroglobulin 0.5 H 0.2 H Thyroglobulin Antibody <1 <1 10/01/23 10/01/23 01/08/24 06:37 06:37 06:29 TSH 55.33 H 69.20 H 1.51 Free T4 1.19 1.08 Thyroglobulin 4.6 H Thyroglobulin Antibody <1 04/14/24 08/11/24 09/30/24 07:06 11:38 07:10 TSH 0.11 L < 0.01 L < 0.01 L Free T4 0.96 1.85 1.96 H Thyroglobulin 0.5 H Thyroglobulin Antibody 11/01/24 10:39 TSH < 0.01 L Free T4 0.84 Thyroglobulin Thyroglobulin Antibody Us 10/15/24 CLINICAL HISTORY: C73 - Malignant neoplasm of thyroid gland Soft tissue ultrasound of the neck Comparison: None FINDINGS: The prior ultrasound images and reports are not available for review. The comparison is based on the preliminary report from the director payment. Images were obtained in the area of clinical concern. In this region, the soft tissue shows right level 2 lymph node 1 x 0.3 x 0.4 cm, previously 0.9 x 0.4 x 0.5 cm; right level 5 lymph node 0.3 x 0.2 x 0.3 cm; left level 3 lymph node 0.9 x 0.3 x 0.5 cm, previously 0.7 x 0.2 x 0.6 cm; left level 4 lymph node 0.7 x 0.3 x 0.5 cm, previously 1 x 0.5 x 0.4 cm; left level 4 lymph node 0.7 x 0.5 x 0.5 cm. IMPRESSION: Stable multiple small lymph nodes of the neck. No suspicious enlarged cervical lymph nodes. This document has been electronically signed by: Kenia Gómez MD on 10/15/2024 16:36:52 US SOFT TISSUE OF THE NECK 05/15/24 CLINICAL INFORMATION: Malignant neoplasm of thyroid gland. Status post thyroidectomy. COMPARISON: None available. TECHNIQUE: Linear transducer grayscale and color Doppler examination of the thyroid bed and surrounding soft tissue. FINDINGS: Redemonstration of bilateral cervical lymph nodes. Right cervical lymph nodes: Level 2 measuring 1.5 and 0.5 x 1.9 cm, previously measured 2.1 x 0.7 x 1.8 cm. Normal in morphology. Level 3 measuring 9 x 4 x 5 mm, previously measured 9 x 4 x 7 mm. Normal in morphology. Level VA measuring 8 x 6 x 5 mm, not seen on prior study. Normal in morphology. Left cervical lymph nodes: Level 3:7 x 2 x 6 mm, no definite fatty hilum. Level 4:10 x 5 x 4 mm, normal in morphology. US/US soft tiss head and/or neck IMPRESSION: Redemonstration of bilateral cervical lymph nodes, none of which are pathologically enlarged. There is a left level 3 lymph node measuring 7 x 2 x 6 mm, no definite fatty hilum. Recommend management pharmacologic protocol. Electronically signed by: Yvonne Mejia MD 05/20/2024 02:58 PM EDT US SOFT TISSUE HEAD/NECK 11/22/22 CLINICAL INFORMATION: Malignant neoplasm of thyroid gland. COMPARISON: Ultrasound soft tissue head/neck 06/27/2022. TECHNIQUE: Linear transducer grayscale and color Doppler examination of the thyroid bed and surrounding soft tissue. FINDINGS: RIGHT NECK: 1. Level 2 lymph node measures 2.1 x 0.7 x 1.8 cm. It has a normal architecture. 2. Level 2 lymph node measures 0.9 x 0.4 x 0.4 cm and has normal architecture. Previously it measured 0.6 x 0.2 x 0.3 cm. 3. Level 2 lymph node measures 0.7 x 0.3 x 0.4 cm. It is new and has normal architecture. 4. Level 4 lymph node measures 0.6 x 0.3 x 0.6 cm and has normal architecture. Previously measured 0.6 x 0.2 x 0.3 cm. LEFT NECK: 1. Level 2 lymph node measures 1.7 x 0.7 x 2.1 cm. It has normal architecture. Previously it measured 1.8 x 0.6 x 0.8 cm. 2. Level 4 lymph node measures 1.1 x 0.5 x 0.6 cm. It has normal architecture. Previously it measured 0.7 x 0.5 x 0.5 cm US/US soft tiss head and/or neck IMPRESSION: Benign-appearing bilateral neck lymph nodes as described above. US SOFT TISSUE HEAD/NECK 06/27/22 CLINICAL INFORMATION: Malignant neoplasm of thyroid gland. COMPARISON: US-guided thyroid biopsy 06/16/2021. TECHNIQUE: Linear transducer grayscale and color Doppler examination of the thyroid bed and surrounding soft tissue. FINDINGS: No residual thyroid tissue or thyroid nodule is seen. There are bilateral normal-appearing cervical lymph nodes. The demonstrate normal ultrasound morphology and flow. Right level II measuring 1.2 x 0.5 x 0.4 cm, right level III measuring 0.6 x 0.3 x 0.4 cm and right level IV measuring 0.6 x 0.2 x 0.3 cm. Left level II measuring 1.8 x 0.6 x 0.8 cm, left level V measuring 0.7 x 0.5 x 0.5 cm and left level IV measuring 0.3 x 0.3 x 0.3 cm. US/US soft tiss head and/or neck IMPRESSION: Bilateral normal-appearing lymph nodes. No residual thyroid tissue seen. FORMERLY [facility], 1928–1983 Medical History Uvulitis Claustrophobia Takotsubo cardiomyopathy Schatzki's ring Gastritis Sleep apnea Diabetes Gastroparesis Migraine headache with aura Enlarged liver Postoperative hypothyroidism Thyroid cancer Vitamin D deficiency Multinodular thyroid Seizures ABPA (allergic bronchopulmonary aspergillosis) Seizures Asthma Surgical History S/P total thyroidectomy History of esophagogastroduodenoscopy (EGD) S/P removal of thyroid nodule History of cholecystectomy Family History Maternal Grandmother Emphysema, unspecified Father Diabetes Mother No problems noted. Paternal Grandfather Liver cancer Colon cancer Social History Household Members: Family Housing: Apartment Are you a primary home care giver to a significant other at home: No Do you presently have visiting nurse or other home services: No Alcohol intake: never Comment: has poor balance Patient Tobacco Use Status: Never used Tobacco e-Cigarette/Vaping Use: Never Used Second Hand Smoke Exposure: No Substance Use Type: Marijuana Advance Directives Date on File: 05/20/23 service: No Current occupational status: disabled Current occupation: rt handed Cognitive needs: No Hearing needs: No Vision needs: No Physical Exam Vital Signs: Last Vital Signs Pulse 70 11/11/24 08:25 BP 134/88 11/11/24 08:25 Pulse Ox 92 11/11/24 08:25 Oxygen Delivery Method Room Air 11/11/24 08:25 BMI result Body Mass Index 27.7 Assessment & Plan Assessment & Plan (1) Thyroid cancer: Code(s): C73 - Malignant neoplasm of thyroid gland Category: Medical Plan: 43-year-old male with past medical history of seizure disorder, who is seen today for follow up of 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 JAMIR low risk of recurrence b ased on no angioinvasion, no lymphatic invasion, negative margins, 0/3 lymph nodes examined. Subsequently patient has not received CALLEJAS therapy given poor reaction to Thyrogen. Since he was unable to tolerate Thyrogen, it was mutually decided between him and his past physicians that we will follow him up with surveillance ultrasounds and thyroglobulin markers to monitor for recurrence. His most recent ultrasound was from September 2024 did not show any abnormal lymph nodes. Since his stimulated thyroglobulin postoperatively was 0.6, this was very reassuring for being JAMIR low risk of recurrence as well. His unstimulated thyroglobulin subsequently has remained in the range of 0.2-0.5 (Most recent thyroglobulin 0.5 from September 2024, with a undetectable thyroglobulin antibody), and his labs from October 10 show stimulated thyroglobulin of 4.6 when his TSH was 69.2, classifying him as JAMIR indeterminate response to therapy. In indeterminate response, 15% to 20% we will have structural disease identified during follow-up, however in the remainder of the nonspecific changes are either stable or resolved, less than 1% have disease specific We can consider doing a whole-body scan but that would involve levothyroxine withdrawal, which might have severe adverse effects for him. For now we will continue to follow him with repeat thyroid ultrasounds for structural recurrence as well as trending his thyroglobulin tumor markers. His TSH goal would be 0.1-0.5. 09/30/2024: TSH less than 0.01, free T4 1.96 10/01/2024: Synthroid change to 212.5 mcg Sunday to Sunday (we had told him till ) and 200 mcg tablet Sunday to Sunday. 11/01/2024: TSH less than 0.01, free T4 0.84 His free T4 is actually on the lower side now, TSH remains suppressed however the dose change was just made 4 weeks ago so I will not make any changes today, and continue him on the same dose. Plus he also endorses that at some point he feels he was taking a double prescription of Synthroid and levothyroxine both, I told him he has to prescriptions because of the separate pills however he feels that he was also taking another prescription. At this point I am not making any dose changes and we will see what his labs show in another 2 weeks. Plan: -TSH and free T4 to be done around 11/25/2024 and we will adjust levothyroxine according to TSH goal -goal TSH 0.1-0.5 -next set of thyroglobulin tumor markers would be due in 6 months from last so we will get these prior to his next appointment in May 2025 -next neck ultrasound 12 months from the last 1 would be in September 2025 -follow up in 05/2025 (2) Hypothyroidism: Code(s): E03.9 - Hypothyroidism, unspecified Category: Medical Qualifiers: Hypothyroidism type: postoperative Qualified Code(s): E89.0 - Postprocedural hypothyroidism Plan: His TSH goal would be 0.1-0.5. 09/30/2024: TSH less than 0.01, free T4 1.96 10/01/2024: Synthroid change to 212.5 mcg Sunday to Sunday (we had told him till ) and 200 mcg tablet Sunday to Sunday. 11/01/2024: TSH less than 0.01, free T4 0.84 His free T4 is actually on the lower side now, TSH remains suppressed however the dose change was just made 4 weeks ago so I will not make any changes today, and continue him on the same dose. Plus he also endorses that at some point he feels he was taking a double prescription of Synthroid and levothyroxine both, I told him he has to prescriptions because of the separate pills however he feels that he was also taking another prescription. At this point I am not making any dose changes and we will see what his labs show in another 2 weeks. Plan: -TSH and free T4 to be done around 11/25/2024 and we will adjust levothyroxine according to TSH goal -goal TSH 0.1-0.5 Plan I spent 30 minutes in reviewing the record, seeing the patient and documenting in the medical record. Orders: Orders 2 Thyroid Stimulating Hormone 2 Weeks C73 - Malignant neoplasm of thyroid gland, E89.0 - Postprocedural hypothyroidism Free T4 (Free Thyroxine) 2 Weeks C73 - Malignant neoplasm of thyroid gland, E89.0 - Postprocedural hypothyroidism Patient Instructions: Continue synthyroid (levothyroxine) 212.5 mcg (200 plus half of 25 mcg pill) Sunday to Sunday , and 200 mcg pill daily to Sunday Repeats labs November 25 Follow up in May 2025 Coding Level of Care Code Est Pt Level 4 (52785) Complex EM visit Add On G2211 Diagnoses Thyroid cancer C73 Postoperative hypothyroidism E89.0 Hypothyroidism type: postoperative
--- OUTSIDE RECORDS SUMMARY | 2024-11-11 08:29 | XMS_ITS | Encounter Summary ---
Author Organization [facility] Address [address] [place] [address] Care Team Providers Care Numerical Control Router Operator Name Role Phone Saúl Maier Primary Care Provider [phone] Reason for Referral * Therapy (Routine) - Closed Specialty Diagnoses / Procedures Referred By Xochilt t Referred To Contact Pulmonology Diagnoses Severe asthma, unspecified whether complicated, unspecified whether persistent Procedures Pulmonary function testing: Nitrogen Wash Out, Spirometry with Bronchodilator, Carbon Monoxide Diffusing Capacity, Pulmonary Stress Test, 6 min walk Anabel Garvin MD [address] [place] [address] Phone: tel: fax: [facility] [address] [place] [phone] Phone: tel: Referral ID Status Reason Start Date Expiration Date Visits Re quested Visits Authorized [id number] Closed 10/16/2024 10/16/2025 1 1 Reason for Visit * Therapy (Routine) - Closed Specialty Diagnoses / Procedures Referred By Contac t Referred To Contact Pulmonology Diagnoses Severe asthma, unspecified whether complicated, unspecified whether persistent Procedures Pulmonary function testing: Nitrogen Wash Out, Spirometry with Bronchodilator, Carbon Monoxide Diffusing Capacity, Pulmonary Stress Test, 6 min walk Anabel Garvin MD [address] [place] [id number] Phone: tel: fax: [facility] [address] [place] [address] Phone: tel: Referral ID Status Reason Start Date Expiration Date Visits Re quested Visits Authorized [id number] Closed 10/16/2024 10/16/2025 1 1 Encounter Details Date Type Department Care Team (Latest Contact Info) Description 10/23/2024 8:04 AM EST - 10/23/2024 11:59 PM EST Hospital Encounter [facility] [address] [place] [id number] Severe asthma, unspecified whether complicated, unspecified whether persistent Discharge Disposition: Home or Self Care Social History Tobacco Use Types Packs/Day Years Used Date Smoking Tobacco: Never Smokeless Tobacco: Never Alcohol Use Standard Drinks/Week Comments No 0 (1 standard drink = 0.6 oz pur e alcohol) Sex and Gender Information Value Date Recorded Sex Assigned at Not on file Legal Sex Male 11:22 AM EST Gender Identity Not on file Sexual Orientation Not on file documented as of this encounter Medications at Time of Discharge albuterol 2.5 mg /3 mL (0.083 %) nebulizer solution Take 1 Vial by nebulization every 6 hours. albuterol HFA (PROAIR HFA ; PROVENTIL HFA ; VENTOLIN HFA) 90 mcg/actuation inhaler Inhale 2 Puffs into the lungs every 4 hours as needed. atorvastatin (LIPITOR) 40 mg tablet Take 40 mg by mouth daily. budesonide-formo teroL (SYMBICORT) 160-4.5 mcg/actuation inhaler Inhale 2 Puffs into the lungs 2 times daily. Rinse mouth after use. fluticasone propionate (FLONASE) 50 mcg/actuation nasal spray 2 Sprays by Each Nare route daily. levETIRAcetam (KEPPRA) 1,000 mg tablet Take 1,000 mg by mouth 2 times daily. methylPREDNISolo ne (MEDROL) 4 mg tablet Take 4 mg by mouth daily. montelukast (SINGULAIR) 10 mg tablet Take 10 mg by mouth daily. pantoprazole (PROTONIX) 20 mg EC tablet TAKE 1 TABLET BY MOUTH EVERY DAY 04/10/2019 tiotropium (Spiriva Respimat) 1.25 mcg/actuation inhalation spray Inhale 1 Puff into the lungs daily. 07/18/2017 documented as of this encounter Discharge Disposition Disposition Code Departure Means Destination Home or Self Care documented in this encounter Plan of Treatment Not on file documented as of this encounter Procedures Procedure Name Priority Date/Time Associated Diagnosis Comments HC SPIROMETRY BRONCHODILATION RESPONSIVENESS PRE/POST BRONCHODILATOR ADMINISTRATION Routine 10/23/2024 9:10 AM EST Severe asthma, unspecified whether complicated, unspecified whether persistent documented in this encounter Results * Pulmonary function testing: Nitrogen Wash Out, Spirometry with Bronchodilator, Carbon Monoxide Diffusing Capacity, Pulmonary Stress Test, 6 min walk (10/23/2024 9:10 AM EST) Narrative Milly Barnes MD - 10/23/2024 2:51 PM EST DATE OF SERVICE: 10/23/24 SPIROMETRY: FEV1 is 57 % predicted and an FVC ??is 86 % predicted. The FEV1/FVC ratio is decreased, ??significant response to bronchodilators noted. LUNG VOLUMES: Total lung capacity (TLC): 101% predicted. Residual volume (RV): 110% predicted DIFFUSION CAPACITY: DLCO 104% predicted. DlCO/VA 131% of predicted COMPARISONS: INTERPRETATION: This pulmonary function test shows moderate obstructive lung disease with preserved diffusion capacity and improvement post bronchodilators. ??This suggests asthma as courses of the fixed obstruction ??Milly Barnes MD ?? us Anabel Garvin MD PFT ORDERABLES Final Resu lt documented in this encounter Visit Diagnoses Diagnosis Severe asthma, unspecified whether complicated, unspecified whether persistent documented in this encounter Administered Medications Inactive Administered Medications - up to 3 most recent administrations Medication Order MAR Action Action Date Dose Rate Site albuterol 2.5 mg /3 mL (0.083 %) nebulizer solution 2.5 mg 2.5 mg, nebulization, Once, On Celi 10/23/24 at 0830, For 1 dose Given 10/23/2024 8:57 AM EST 2.5 mg documented in this encounter Orders Medications Ordered That Sunny ht Not Have Been Administered Count Last Ordered Date First Ordered Date albuterol 2.5 mg /3 mL (0.08 3 %) nebulizer solution 2.5 mg 1 10/23/2024 documented in this encounter Care Teams Numerical Control Router Operator Relationship Specialty Start Date End Date Saúl Maier PA PCP - General Internal Medicine 03/06/19 documented as of this encounter
--- OUTSIDE RECORDS SUMMARY | 2024-11-11 08:29 | XMS_ITS | Clinical Summary ---
Author Organization [facility] Facility Address [address] [address] Care Team Providers Care Cds Sales Advisor Name Role Phone Saúl Maier Primary Care Provider [phone] Allergies No known active allergies Medications acetaminophen [...] Vaccine (#1) 2024 Insurance MEDICAID Care Teams Cds Sales Advisor Relationship Specialty Start Date End Date Saúl Maier PA [address] [place] [address], [address] [place] [address] PCP - General Physician Senior Web Designer 01/30/22
--- OUTSIDE RECORDS SUMMARY | 2024-11-11 08:29 | XMS_ITS | Clinical Summary ---
Author Organization [facility] Address [address] [place] [address] Care Team Providers Care Rolling Attendant Name Role Phone Saúl Maier Primary [...] Rinse mouth after use. 0 Active Tiotropium [place] Monohydrate (SPIRIVA RESPIMAT) 1.25 MCG/ACT Aero Soln [...] 09/17/2024 SOCIAL NEEDS SCREENING 09/17/2024 Care Teams Rolling Attendant Relationship Specialty Start Date End Date Saúl Maier PCP - General Internal Medicine 03/06/19
--- OUTSIDE RECORDS SUMMARY | 2024-11-11 08:29 | XMS_ITS | Encounter Summary ---
Author Organization [facility] Address [address] [place] [address] Care Team Providers Care Ball Racker Name Role Phone Saúl Maier Primary Care Provider Unavailab le Encounter Details Date Type Department Care Team Description 09/12/2019 Release of Information Medical Records [address] [place] [id number] Abstract, Provider Social History Tobacco Use Types Packs/Day Years Used Date Smoking Tobacco: Never Smokeless Tobacco: Never Alcohol Use Standard Drinks/Week Comments No 0 (1 standard drink = 0.6 oz pur e alcohol) Sex Assigned at Date Recorded Not on file documented as of this encounter Plan of Treatment Not on file documented as of this encounter Visit Diagnoses Not on filedocumented in this encounter Care Teams Ball Racker Relationship Specialty Start Date End Date Saúl Maier PCP - General Internal Medicine 03/06/19 documented as of this encounter
--- OUTSIDE RECORDS SUMMARY | 2024-11-11 08:29 | XMS_ITS | Encounter Summary ---
Author Organization [facility] Address [address] [place] [address] Care Team Providers Care Principal Process Engineer Name Role Phone Saúl Maier Primary Care Provider [phone] Reason for Referral * Consultation (Routine) - Authorized Specialty Diagnoses / Procedures Referred By Xochilt castellanos Referred To Contact Otolaryngology Diagnoses Stridor Anabel Garvin MD [address] [place] [address] Phone: tel: fax: Mimi Mattson MD [address] [place] [address] [address] [place], [place] Phone: tel: fax: Referral ID Status Reason Start Date Expiration Date Visits Requested Visits Authorized [id number] Authorized Specialty Services Required 10/16/2024 10/16/2025 1 1 Scheduling Instructions Schedule with Dr. Caballero, vocal cord dysfunction suspected, inspiratory stridor and attacks of SOB that are suspicious for this, ?scope * Therapy (Routine) - Closed Specialty Diagnoses / Procedures Referred By Xochilt castellanos Referred To Contact Pulmonology Diagnoses Severe asthma, unspecified whether complicated, unspecified whether persistent Procedures Pulmonary function testing: Nitrogen Wash Out, Spirometry with Bronchodilator, Carbon Monoxide Diffusing Capacity, Pulmonary Stress Test, 6 min walk Anabel Garvin MD [address] [place] [address] Phone: tel: fax: [facility] [address] [place] [phone] Phone: tel: Referral ID Status Reason Start Date Expiration Date Visits Re quested Visits Authorized [id number] Closed 10/16/2024 10/16/2025 1 1 * Imaging (Routine) - Pending Review Specialty Diagnoses / Procedures Referred By Contac t Referred To Contact Radiology Diagnoses Severe asthma, unspecified whether complicated, unspecified whether persistent Stridor Procedures CT Neck Soft Tissue wo Contrast Anabel Garvin MD [address] [place] [address] Phone: tel: fax: [address] [phone] Phone: tel: Referral ID Status Reason Start Date Expiration Date V isits Requested Visits Authorized [id number] Pending Review 10/16/2024 10/16/2025 1 1 * Imaging (Routine) - Pending Review Specialty Diagnoses / Procedures Referred By Xochilt t Referred To Contact Radiology Diagnoses Severe asthma, unspecified whether complicated, unspecified whether persistent Procedures CT Chest wo Contrast Anabel Garvin MD [address] [place] [address] Phone: tel: fax: [address] [phone] Phone: tel: Referral ID Status Reason Start Date Expiration Date V isits Requested Visits Authorized [id number] Pending Review 10/16/2024 10/16/2025 1 1 Reason for Visit * Reason Comments Consult Bronch thermal Encounter Details Date Type Department Care Team (Late st Contact Info) Description 10/16/2024 3:00 PM EST Consult Pulmonology - [address] [place] [address] Anabel Garvin MD [address] [place] [address] Severe asthma, unspecified whether complicated, unspecified whether persistent (Primary Dx); Stridor Social History Tobacco Use Types Packs/Day Years [...] on file documented as of this encounter Last Filed Vital Signs Vital Sign Reading Time Taken Comments Blood Pressure 137/73 10/16/2024 3:01 PM EST Pulse 91 10/16/2024 3:01 PM EST Temperature 36.7 ??C (98.1 ??F) 10/16/2024 3:01 PM ES T Respiratory Rate 16 10/16/2024 3:01 PM EST Oxygen Saturation 98% 10/16/2024 3:01 PM EST Inhaled Oxygen Concentration - - Weight 73.3 kg (161 lb 8 oz) 10/16/2024 3:01 PM EST Height 162.6 cm (5' 4 ) 10/16/2024 3:01 PM EST Body Mass Index 27.72 10/16/2024 3:01 PM EST documented in this encounter Progress Notes * Anabel Garvin MD - 10/16/2024 3:00 PM EST 10/16/2024 Terrance Carranza : 1980 PCP: PEYMAN Tavarez Chief Complaint:: severe asthma History of Present Illness: Terrance Carranza is a 43 y.o. 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 Pt of Dr. Lucas (Pulmonary, [place]). Patient reports having asthma since he was a very young child. He has never been intubated or needed mechanical ventilation for asthma. He has had frequent exacerbations mostly as an adult and more in recent years. He has flares every month to 2 months for his asthma. When I asked him what his asthma flares feel like he reports that he out of nowhere feels short of breath and like he cannot catch his breath at all. Attacks last a few minutes. This can happen while he is just sitting down doing nothing or while he is exerting himself; he is unsure if it happensduring times of stress. He cannot identify specific trigger. He does know that dust, cats, heat triggers his asthma but other times he cannot identify specific trigger for his attacks. During these times he does not feel like his inhaler medication Airsupra helps. He does take prednisone 10 mg as needed when he feels like he has more issues with his asthma but does not feel that it helps. He is compliant to his asthma medications (see below). He denies any history of barking cough. He denies any history of ENT evaluation to look for vocal cord dysfunction. He does report an inspiratory sound over his throat that gets worse during these attacks that he described above. Of note he has uncontrolled seizure disorder with reportedly tonic-clonic seizures. He does see a neurologist. He denies being intubated for seizures, status epilepticus. He is on 3 different antiepileptic medications but seizures are not well-controlled yet, having seizures every 2 months. Of noteemergence from anesthesia has triggered his seizures in the past per patient. Meds: dupixent, symbicort high dose, Airsupra PRN, singulair, spiriva. Of note he is also taking 10mg of prednisone on an as-needed basis for when he feels a flare coming on PFTs: Last done in 2021 FEV1 1.92 (54%), postbronchodilator FEV1 2.35 (66%) FVC 3.43 (77%), postbronchodilator FVC 3.87 (87%) FEV1/FVC 0.56 TLC 105% RV 193% DLCO 84% FEV1: 2.35 (66%) post bronchodilator History of life threatening exacerbation: No Exacerbations in last 12 months needing hospitalization: None Exacerbations in last 12 months: About 6 Allergies: Allergies Allergen Reactions Dog Dander Tree And Shrub Pollen Medications: Current Outpatient Medications Medication Instructions albuterol 2.5 mg /3 mL (0.083 %) nebulizer solution Take 1 Vial by nebulization every 6 hours. albuterol HFA (PROAIR HFA ; PROVENTIL HFA ; VENTOLIN HFA) 90 mcg/actuation inhaler Inhale 2 Puffs into the lungs every 4 hours as needed. atorvastatin (LIPITOR) 40 mg tablet Take 40 mg by mouth daily. budesonide-formoteroL (SYMBICORT) 160-4.5 mcg/actuation inhaler Inhale 2 Puffs into the lungs 2 times daily. Rinse mouth after use. fluticasone propionate (FLONASE) 50 mcg/actuation nasal spray 2 Sprays by Each Nare route daily. levETIRAcetam (KEPPRA) 1,000 mg tablet Take 1,000 mg by mouth 2 times daily. methylPREDNISolone (MEDROL) 4 mg tablet Take 4 mg by mouth daily. montelukast (SINGULAIR) 10 mg tablet Take 10 mg by mouth daily. pantoprazole (PROTONIX) 20 mg EC tablet TAKE 1 TABLET BY MOUTH EVERY DAY tiotropium (Spiriva Respimat) 1.25 mcg/actuation inhalation spray Inhale 1 Puff into the lungs daily. Past Medical History: Diagnosis Date Allergic rhinitis 07/14/2017 DX:Allergic rhinitis Asthma 12/08/2016 DX:Asthma Asthma-chronic obstructive pulmonary disease overlap syndrome ([facility]/HCC) 04/16/2017 DX:Asthma-chronic obstructive pulmonary disease overlap syndrome ([facility]) COPD (chronic obstructive pulmonary disease) ([facility]) 10/03/2017 DX:COPD (chronic obstructive pulmonary disease) ([facility]) Gastroesophageal reflux disease 12/08/2016 DX:Gastroesophageal reflux disease Obstructive sleep apnea syndrome 04/16/2017 DX:Obstructive sleep apnea syndrome No past surgical history on file. No family history on file. Social History Socioeconomic History Marital status: Single Spouse name: Not on file Number of children: Not on file Years of education: Not on file Highest education level: Not on file Occupational History Not on file Tobacco Use Smoking status: Never Smokeless tobacco: Never Substance and Sexual Activity Alcohol use: No Drug use: Yes Types: Marijuana/Cannabis Sexual activity: Not on file Other Topics Concern Not on file Social History Narrative Not on file Review of Systems Constitutional: Negative. Eyes: Negative. Respiratory: Positive for shortness of breath and stridor. Cardiovascular: Negative. Gastrointestinal: Positive for abdominal pain. Endocrine: Negative. Genitourinary: Negative. Musculoskeletal: Negative. Skin: Negative. Breast: negative. Allergic/Immunologic: Negative. Neurological: Positive for seizures. Hematological: Negative. Psychiatric/Behavioral: Negative. Vitals: 10/16/24 1501 BP: 137/73 Pulse: 91 Resp: 16 Temp: 36.7 ??C (98.1 ??F) SpO2: 98% Body mass index is 27.72 kg/m??. General: No acute distress HEENT: mucous membranes moist Neck: no JVD, supple neck, +stridor Chest: Clear to auscultation, no wheezing or rales, no accessory muscle use CVS: S1-S2, regular rhythm, no murmurs Abdomen: Nondistended Extremities: No edema, warm Skin: No rashes or lesions Neuro: Alert and oriented x 3 No results found for: ALBUMIN , ALT , AST , BUN , CALCIUM , CL , CHOL , CO2 , CREATININE , GLU , HDL , HCT , HGB , HGBA1C , LDL , MG , PHOS , PLT , K , PSA , NA , TRIG , WBC Pulmonary Function Results: Last done in 2021 FEV1 1.92 (54%), postbronchodilator FEV1 2.35 (66%) FVC 3.43 (77%), postbronchodilator FVC 3.87 (87%) FEV1/FVC 0.56 TLC 105% RV 193% DLCO 84% Moderate obstruction with significant bronchodilator response. Hyperinflation, air trapping, no gasexchange impairment. Imaging: I personally reviewed imaging and the data revealed: No imaging to review Visit Diagnoses: 1. Severe asthma, unspecified whether complicated, unspecified whether persistent 2. Stridor Impression: Severe asthma Stridor, chronic, intermittent Seizures Patient reports uncontrolled asthma, has flares every 1 to 2 months requiring steroids but reports that they do not always help. In addition his rescue inhaler does not always seem to help. His description of attacks sound very atypical for asthma and I wonder if there is a coexisting comorbidityof either vocal cord dysfunction or tracheobronchomalacia. Based on patient's description I have a concern for vocal cord dysfunction as etiology of his symptoms. Therefore it is unclear to me if his severe symptoms are due to asthma. He is medically optimized with his asthma (triple inhaler therapy, biologic) and it is unusual that he is actually more symptomatic despite being on optimized asthma therapy. I do think he has severe asthma underlying, but his symptoms over past couple years are more concerning for other etiology such as PVFM. Need to rule out underlying structural pathology with a CT scan of the neck as well as chest with tracheobronchomalacia protocol. Recommendations: -Prior to consideration for BT, need to confirm that his symptoms are due to severe asthma -CT neck and CT chest with tracheobronchomalacia protocol -Referral to ENT Dr. Caballero to [facility] for vocal cord dysfunction -Requesting last Neurology note re seizures -Subtype asthma: IgE, IgE Asp, and CBC with diff, BMP -Obtain CD from [place] for CXR imaging -Repeat PFTs - last from 2021 -F/u in IP clinic in 4 weeks with above completed Today I have spent 62 minutes on this encounter with the following activities: Pre-visit review of chart Pre-visit review of imaging Reviewing patient provided information Personal face to face with patient (including discussion counseling) History and physical examination Medication reconciliation Discussion of laboratory results and pathology Discussion with consulting/referring physician(s) Coordination of care including with office staff and nurse navigation Documentation. Anabel Garvin MD [place] [address] Office [phone] documented in this encounter Plan of Treatment Scheduled Orders Name Type Priority Associated Diagnoses Orde r Schedule CT Chest wo Contrast Imaging Routine Severe asthma, unspecified whether complicated, unspecified whether persistent Expected: 10/16/2024, Expires: 10/16/2025 CT Neck Soft Tissue wo Contrast Imaging Routine Severe asthma, unspecified whether complicated, unspecified whether persistent Stridor Expected: 10/16/2024, Expires: 10/16/2025 IgE antibody Lab Routine Severe asthma, unspecified whether complicated, unspecified whether persistent 1 Occurrences starting 10/16/2024 until 10/16/2025 Allergen aspergillus fumigatus IgE Lab Routine Severe asthma, unspecified whether complicated, unspecified whether persistent 1 Occurrences starting 10/16/2024 until 10/16/2025 CBC and differential Lab Routine Severe asthma, unspecified whether complicated, unspecified whether persistent 1 Occurrences starting 10/16/2024 until 10/16/2025 Basic metabolic panel Lab Routine Severe asthma, unspecified whether complicated, unspecified whether persistent 1 Occurrences starting 10/16/2024 until 10/16/2025 Scheduled Referrals Name Type Priority Associated Diagnoses Order Schedule Ambulatory referral to ENT Outpatient Referral Routine Stridor 1 Occurrences starting 10/16/2024 until 10/16/2025 documented as of this encounter Results * Pulmonary function testing: [...] Severe asthma, unspecified whether complicated, unspecified whether persistent- Primary Stridor Severe asthma, unspecified whether complicated, unspecified whether persistent documented in this encounter Care Teams Principal Process Engineer Relationship Specialty Start Date End Date Saúl Maier PA PCP - General Internal Medicine 03/06/19 documented as of this encounter
--- OUTSIDE RECORDS SUMMARY | 2024-11-11 08:29 | XMS_ITS | Clinical Summary ---
Author Organization [facility] [address] [facility] Address [address] [place] [address] Phone Care Team Providers Care Mainspring Former Arbor End Name Role Phone Saúl Maier Primary Care Provider Allergies Active Allergy Reactions Criticality Noted Date Comments Dog Dander 10/16/2024 Tree And Shrub Pollen 10/16/2024 Medications methylPREDNISol one (MEDROL) 4 mg tablet Take 4 mg by mouth daily. Active pantoprazole (PROTONIX) 20 mg EC tablet TAKE 1 TABLET BY MOUTH EVERY DAY 9 Active atorvastatin (LIPITOR) 40 mg tablet Take [...] Take 10 mg by mouth daily. Active budesonide-form oteroL (SYMBICORT) 160-4.5 mcg/actuation inhaler Inhale 2 Puffs into the lungs 2 times daily. Rinse mouth after use. Active tiotropium (Spiriva Respimat) 1.25 mcg/actuation inhalation spray Inhale 1 Puff into the lungs daily. 7 Active Active Problems Problem Noted Date Diagnosed Date COPD (chronic obstructive pulmonary disease) Allergic rhinitis 07/14/2017 Asthma-chronic obstructive p ulmonary disease overlap syndrome 04/16/2017 Obstructive sleep apnea syndrome 04/16/2017 Asthma 12/08/2016 Gastroesophageal reflux disease 12/08/2016 Encounters Date Type Department Care Team Description 10/23/2024 8:04 AM EST - 10/23/2024 11:59 PM EST Hospital Encounter [facility] Pulmonary [address] [place] [address] Severe asthma, unspecified whether complicated, unspecified whether persistent Discharge Disposition: Home or Self Care 10/16/2024 3:00 PM EST Consult Pulmonology - [place] [address] [id number] Anabel Garvin MD Severe asthma, unspecified whether complicated, unspecified whether persistent (Primary Dx); Stridor 10/15/2024 Telephone Pulmonology - [place] [address] [phone] Sandra Soriano MA 10/10/2024 Telephone Pulmonology - [place] [address] [phone] Sandra Soriano MA 08/25/2024 Telephone Thoracic Surgery - [place] [address] [phone] Ayana Hilario MA from Last 3 Months Medical History Medical History Date Comments Allergic rhinitis 07/14/2017 DX:Allergic rh initis Asthma 12/08/2016 DX:Asthma Asthma-chronic obstructive p ulmonary disease overlap syndrome ([facility]/HCC) 04/16/2017 DX:Asthma-chronic o bstructive pulmonary disease overlap syndrome (HCC) Gastroesophageal reflux disease 12/08/2016 DX:Gastroesophageal reflux disease Obstructive sleep apnea syndrome 04/16/2017 DX:Obstructive sleep apnea syndrome COPD (chronic obstructive pu lmonary disease) ([facility]/HCC) 10/03/2017 DX:COPD (chronic obstructive pulmonary disease) ([facility]) Social History Tobacco Use Types Packs/Day Years Used Date Smoking Tobacco: Never Smokeless Tobacco: Never Alcohol Use Standard Drinks/Week Comments No 0 (1 standard drink = 0.6 oz pur e alcohol) Sex and Gender Information Value Date Recorded Sex Assigned at Not on file Legal Sex Male 11:22 AM EST Gender Identity Not on file Sexual Orientation Not on file Obstetrics History Last Filed Vital Signs Vital Sign Reading [...] Mass Index 27.72 10/16/2024 3:01 PM EST Plan of Treatment Health Maintenance Due Date Last Done Comments COVID-19 Vaccine (#1) 11/18/1984 Hepatitis B Vaccines (1 of 3 - 19+ 3-dose series) 11/18/1998 Pneumococcal Vaccine: Pediatrics (0 to 5 Years) and At-Risk Patients (6 to 64 Years) (3 of 3 - PCV) 11/24/2019 11/23/2018, 08/22/2018 Cholesterol Screening (Lipid Panel) 08/07/2024 Depression Screening 08/07/2024 HIV Screening 08/07/2024 Hepatitis C Screening 08/07/2024 Social Influencers of Health Screening 08/07/2024 Hypertension/CHF/CAD Annual BMP Blood Test 08/21/2024 DTaP,Tdap,and Td Vaccines (2 - Td or Tdap) 08/07/2027 08/07/2017 Influenza Vaccine Completed 10/01/2024, , 08/01/2021, Additional history exists HIB Vaccines Aged Out No longer eligi [...] patient's age to complete this topic Meningococcal B Vacine Aged Out No lo nger eligible based on patient's age to complete this topic RSV Immunization Patients Under 20 months Aged Out No longer eligible based on patient's age to complete this topic Varicella Vaccines Aged Out No longer eligible based on patient's age to complete this topic Procedures Procedure Name Priority Date/Time Associated Diagnosis Comments HC SPIROMETRY BRONCHODILATION RESPONSIVENESS PRE/POST BRONCHODILATOR ADMINISTRATION Routine 10/23/2024 9:10 AM EST Severe asthma, unspecified whether complicated, unspecified whether persistent from Last 3 Months Results * Pulmonary function testing: Nitrogen Wash [...] Garvin MD PFT ORDERABLES Final Resu lt from Last 3 Months Insurance [facility] PL[facility] Care Teams Mainspring Former Arbor End Relationship Specialty Start Date End Date Saúl Maier PA PCP - General Internal Medicine 03/06/19
--- OUTSIDE RECORDS SUMMARY | 2024-11-11 08:29 | XMS_ITS | Encounter Summary ---
Author Organization [facility] Address [address] [place] [address] Care Team Providers Care Anesthesia Associate Name Role Phone Saúl Maier Primary Care Provider Encounter Details Date Type Department Care Team (Late st Contact Info) Description 10/15/2024 Telephone Pulmonology - [address] [phone] Sandra Soriano MA Social History Tobacco Use [...] on file documented as of this encounter Progress Notes * Sandra Soriano MA - 10/15/2024 2:41 PM EST called and left VM to remind PT of appt on 10/16/24 documented in this encounter Plan of Treatment Not on file documented as of this encounter Visit Diagnoses Not on filedocumented in this encounter Care Teams Anesthesia Associate Relationship Specialty Start Date End Date Saúl Maier PA PCP - General Internal Medicine 03/06/19 documented as of this encounter
--- OUTSIDE RECORDS SUMMARY | 2024-11-11 08:29 | XMS_ITS | Encounter Summary ---
Author Organization [facility] Address [address] [place] [address] Care Team Providers Care Nip Wrapper Name Role Phone Saúl Maier Primary Care Provider Unavailab le Reason for Visit * Reason Comments E-prescribe Rx Request Encounter Details Date Type Department Care Team Description 04/10/2019 Refill Pulmonology - [place] [address] [facility] [address] [place] [address] Milly Barnes MD [address] [place] [address] E-prescribe Rx Request Social History [...] NO Patients current insurance carrier is: Payor: [facility] / Plan: [facility] / Product Type: MEDICAID RISK documented in this encounter Plan of Treatment Not on file documented as of this encounter Visit Diagnoses Not on filedocumented in this encounter Care Teams Nip Wrapper Relationship Specialty Start Date End Date Saúl Maier PCP - General Internal Medicine 03/06/19 documented as of this encounter
--- OUTSIDE RECORDS SUMMARY | 2024-11-11 08:29 | XMS_ITS | Encounter Summary ---
Author Organization [facility] Address [address] [place] [address] Care Team Providers Care Go Cart Mechanic Name Role Phone Blessing Beltran MD Primary Care Provider Saúl Lim Primary Care Provider Unavailab le Reason for Visit * Reason Comments E-prescribe Rx Request Encounter Details Date Type Department Care Team Description 10/18/2018 Refill Pulmonology - [place] [address] [facility] [address] [place] [address] Milly Barnes MD [address] [place] [address] E-prescribe Rx Request Social History Tobacco Use Types Packs/Day Years Used Date Smoking Tobacco: Never Smokeless Tobacco: Never Alcohol Use Standard Drinks/Week Comments No 0 (1 standard drink = 0.6 oz pur e alcohol) Sex Assigned at Date Recorded Not on file documented as of this encounter Miscellaneous Notes * Telephone Encounter - Chyna Brock - 10/18/2018 8:42 AM EST Patient would like script to be: E-PRESCRIBED/FAXED TO PHARMACY WHEN WAS THE PATIENT'S LAST APPOINTMENT WITH THE PRESCRIBING PROVIDER? 09/05/18 Does patient have an upcoming appointment? Yes 03/06/19 (THE MEDICATION REQUESTED IS ON THE MED LIST ABOVE) All of the medications requested were on the CURRENT MEDS list Did you check the Pharmacy information above?: YES Patient wants: 30 -day supply Is this a mail order prescription request ? NO Patients current insurance carrier is: [place]or: [facility] [place] [email or web address] / Plan: [facility] / Product Type: MEDICAID RISK documented in this encounter Plan of Treatment Not on file documented as of this encounter Visit Diagnoses Not on filedocumented in this encounter Care Teams Go Cart Mechanic Relationship Specialty Start Date End Date Blessing Beltran MD PCP - General Family Practice 09/05/18 03/05/19 Saúl Maier PCP - General Internal Medicine 03/06/19 documented as of this encounter
--- OUTSIDE RECORDS SUMMARY | 2024-11-11 08:29 | XMS_ITS | Encounter Summary ---
Author Organization [facility] Address [address] [place] [address] Care Team Providers Care Riverboat Captain Name Role Phone Trav Greenberg Primary Care Provider Blessing Gilmore MD Primary Care Provider Saúl Lim Primary Care Provider Jackson diane Reason for Visit * Reason Comments E-prescribe Rx Request Encounter Details Date Type Department Care Team Description 02/14/2018 Refill Pulmonology - [place] [address] [facility] [address] [place] [address] Milly Barnes MD [address] [place] [address] E-prescribe Rx Request Social History [...] NO Patients current insurance carrier is: Payor: [employer] / Plan: [facility] $0 [id number] / Product Type: MEDICAID [id number] * Telephone Encounter - Tiffani Joshi - [...] NO Patients current insurance carrier is: Payor: [employer] / Plan: [facility] $0 [id number] / Product Type: MEDICAID [id number] documented in this encounter Plan of Treatment Not on file documented as of this encounter Visit Diagnoses Not on filedocumented in this encounter Care Teams Riverboat Captain Relationship Specialty Start Date End Date Trav Greenberg PCP - General Internal Medicine 07/13/17 09/04/18 Blessing Beltran MD PCP - General Family Practice 09/05/18 03/05/19 Saúl Maier PCP - General Internal Medicine 03/06/19 documented as of this encounter
== END 2024-11-11 08:49 | disposition home or self-care (01) ==
PROVIDERS: PCP Physician Assistant; Visit Provider Student in an Organized Health Care Education/Training Program
DX: C73 Malignant neoplasm of thyroid gland (principal); E89.0 Postprocedural hypothyroidism
CPT/HCPCS: 99214; G2211

== ENCOUNTER → 2024-11-11 08:12 | Outpatient (BNVA) | payer OTHER, SELFPAY | PROVIDERS: PCP Physician Assistant; Visit Provider Student in an Organized Health Care Education/Training Program | DX: E89.0 Postprocedural hypothyroidism (principal); C73 Malignant neoplasm of thyroid gland | CPT/HCPCS: 99212 ==

== ENCOUNTER 2024-11-17 08:44 | Outpatient (AMB) | payer OTHER, SELFPAY ==
[2024-11-17 09:04] VITALS: BMI 27.6
--- NOTE | 2024-11-17 09:04 | MHC.AMNUTRGE ---
VS Expanded 11/17/24 09:04 Height 5 ft 4 in Weight 160 lb 11.472 oz BMI 27.6 Intake Visit Reasons: T2dm, gastritis Allergies cat dander [CATS] Allergy (Mild, Verified 11/11/24 08:28) GENERALIZED ALLERGY SYMPTOMS dog dander [DOGS] Allergy (Mild, Verified 11/11/24 08:28) GENERALIZED ALLERGY SYMPTOMS tree and shrub pollen [TREE] Allergy (Mild, Verified 11/11/24 08:28) GENERALIZED ALLERGY SYMPTOMS FROM PINE TREES Nutrition Presentation Details: Pt presents for MNT f/u ft2dm with gastritis Pt reports very picky eater, lives with family members who help with meals preparation Pt reports working on choosing low fodmap food choices typical meal oatmeal made with water L: burger with carrots, water dinner: mashed potatoes with chicken breast steamed and green beans working on diluting juices with water smoking- denies etoh- denies BS Monitoring Most Recent Diabetes Results: Creatinine 0.63 mg/dL (0.5-1.4) 11/01/24 Blood Urea Nitrogen 7 mg/dL (9-16) L 11/01/24 Sodium 135 mmol/L (135-145) 11/01/24 Potassium 4.2 mmol/L (3.3-5.1) 11/01/24 Chloride 103 mmol/L (96-108) 11/01/24 Carbon Dioxide 22 mmol/L (22-29) 11/01/24 Calcium 9.5 mg/dL (8.4-10.2) 11/01/24 AST 19 U/L (5-37) 11/01/24 ALT 27 U/L (0-40) 11/01/24 Total Protein 7.0 g/dL (6.5-8.0) 11/01/24 Albumin 4.4 g/dL (3.5-5.0) 11/01/24 [facility] Medical History Uvulitis Claustrophobia Takotsubo cardiomyopathy Schatzki's ring Gastritis Sleep apnea Diabetes Gastroparesis Migraine headache with aura Enlarged liver Postoperative hypothyroidism Thyroid cancer Vitamin D deficiency Multinodular thyroid Seizures ABPA (allergic bronchopulmonary aspergillosis) Seizures Asthma Surgical History S/P total thyroidectomy History of esophagogastroduodenoscopy (EGD) S/P removal of thyroid nodule History of cholecystectomy Family History Maternal Grandmother Emphysema, unspecified Father Diabetes Mother No problems noted. Paternal Grandfather Liver cancer Colon cancer Social History Household Members: Family Housing: Apartment Are you a primary customer care consultant to a significant other at home: No Do you presently have visiting nurse or other home services: No Alcohol intake: never Comment: has poor balance Patient Tobacco Use Status: Never used Tobacco e-Cigarette/Vaping Use: Never Used Second Hand Smoke Exposure: No Substance Use Type: Marijuana Advance Directives Date on File: 05/20/23 service: No Current occupational status: disabled Current occupation: rt handed Cognitive needs: No Hearing needs: No Vision needs: No Assessment & Plan Assessment & Plan (1) DMII (diabetes mellitus, type 2): Comment: Pt also with GERD Code(s): E11.9 - Type 2 diabetes mellitus without complications Category: Medical Qualifiers: Diabetes mellitus fci insulin use: without fci use Diabetes mellitus complication status: with hyperglycemia Qualified Code(s): E11.65 - Type 2 diabetes mellitus with hyperglycemia Plan: Wt: 74 Kg ( 09/2024 ), 73 kg (11/11) Est kcal needs as per MSJ: 1900 (40% carb, 30% protein/fat) Est fluid needs as per 25-30 ml/d: 2200 Est prot per day as per 1 g/kg bw: 74 Recommend fiber intake : 8-10 g per day and gradually increase to 25-28 g per day for women and 35-38 g for men or as tolerated Recommend sodium intake per day : less than 2000 mg Educated patient on: ( R = reviewed V = verbalizes understanding N/R = needs review N/A = not applicable Food sources of carbohydrate, adequate serving sizes and its role in various health conditions: R Differences between complex carbohydrates a simple carbohydrates, role of fiber in diet: R V N/R Lean protein sources of foods: R Differences between types of fats and role in diet (mono on saturated fat fatty acids, saturated fatty acids, trans fats): R Food sources of sodium in salt and healthy modifications for heart health in kidney health: R V R/V Vitamins and minerals: R V N/R Healthy plate method concept: R V N/R Physical activity: Benefits a precaution: R V N/R Hypoglycemia protocol (rule of 15): R Dietary prevention of Hyperglycemia: R Patient Instructions: Keep a food record Include lean protein in your meals (lactose free cottage cheese with fruit , protein shake , yogurt, nuts/nut butters, egg salad , poultry/beef and combine with vitamin C rich food: carrots, broccoli, green beans May recommend monitoring for vitamin deficiency: B vitamins (B1, B2, B6), and mineral def : Zinc, Magnesium, Selenium Coding Level of Care Code Nutr Indiv Subseq (56555) Diagnoses Type 2 diabetes mellitus with hyperglycemia, without long-term current use of insulin E11.65 Diabetes mellitus long term care administrator insulin use: without long term care administrator use Diabetes mellitus complication status: with hyperglycemia Time Spent (min) 30
--- OUTSIDE RECORDS SUMMARY | 2024-11-17 09:16 | XMS_ITS | Clinical Summary ---
Author Organization [facility] Facility Address [address] [address] Care Team Providers Care Frog Catcher Name Role Phone Saúl Maier Primary Care Provider [phone] Allergies No known active allergies Medications acetaminophen [...] Vaccine (#1) 2024 Insurance MEDICAID Care Teams Frog Catcher Relationship Specialty Start Date End Date Saúl Maier PA [address] [place] [address], [address] [place] [address] PCP - General Physician [place]erry Terminal Agent 01/30/22
--- OUTSIDE RECORDS SUMMARY | 2024-11-17 09:16 | XMS_ITS | Clinical Summary ---
Author Organization [facility] [address] [facility] Address [address] [place] [address] Phone Care Team Providers Care Business Continuity Planner Name Role Phone Saúl Maier Primary Care [...] - 10/23/2024 11:59 PM EST Hospital Encounter [facility] Pulmonary [address] [place] [address] Severe asthma, unspecified whether complicated, unspecified whether persistent Discharge Disposition: Home or Self Care 10/16/2024 3:00 PM EST Consult Pulmonology - [place] [address] [phone] Anabel Garvin MD Severe asthma, unspecified whether complicated, unspecified whether persistent (Primary Dx); Stridor 10/15/2024 Telephone Pulmonology - [place] [address] [phone] Sandra Soriano MA 10/10/2024 Telephone Pulmonology - [place] [address] [phone] Sandra Soriano MA 08/25/2024 Telephone Thoracic Surgery - [place] [address] [phone] Ayana Hilario MA from Last 3 Months Medical History Medical History Date Comments Allergic rhinitis 07/14/2017 DX:Allergic rh initis Asthma 12/08/2016 DX:Asthma Asthma-chronic obstructive p ulmonary disease overlap syndrome ([facility]/HCC) 04/16/2017 DX:Asthma-chronic o bstructive pulmonary disease overlap syndrome (HCC) Gastroesophageal reflux disease 12/08/2016 DX:Gastroesophageal reflux disease Obstructive sleep apnea syndrome 04/16/2017 DX:Obstructive sleep apnea syndrome COPD (chronic obstructive pu lmonary disease) (CMS/HCC) 10/03/2017 DX:COPD (chronic obstructive pulmonary disease) ([facility]) Social History Tobacco Use Types Packs/Day [...] Resu lt from Last 3 Months Insurance [facility] [place] [address] Care Teams Business Continuity Planner Relationship Specialty Start Date End Date Saúl Maier PA PCP - General Internal Medicine 03/06/19
--- OUTSIDE RECORDS SUMMARY | 2024-11-17 09:16 | XMS_ITS | Encounter Summary ---
Author Organization [facility] Address [address] [place] [address] Care Team Providers Care Rn Recruitment Name Role Phone Saúl Maier Primary Care Provider [phone] Reason for Referral * Therapy (Routine) - Closed Specialty Diagnoses / Procedures Referred By Xochilt t Referred To Contact Pulmonology Diagnoses Severe asthma, unspecified whether complicated, unspecified whether persistent Procedures Pulmonary function testing: Nitrogen Wash Out, Spirometry with Bronchodilator, Carbon Monoxide Diffusing Capacity, Pulmonary Stress Test, 6 min walk Anabel Garvin MD [address] [place] [address] Phone: tel: fax: [facility] Pulmonary [address] [place] [phone] Phone: tel: Referral ID Status Reason Start Date Expiration Date Visits Re quested Visits Authorized [id number] Closed 10/16/2024 10/16/2025 1 1 Reason for Visit * Therapy (Routine) - Closed Specialty Diagnoses / Procedures Referred By Contac t Referred To Contact Pulmonology Diagnoses Severe asthma, unspecified whether complicated, unspecified whether persistent Procedures Pulmonary function testing: Nitrogen Wash Out, Spirometry with Bronchodilator, Carbon Monoxide Diffusing Capacity, Pulmonary Stress Test, 6 min walk Anabel Garvin MD [address] [place] [phone] Phone: tel: fax: [facility] Pulmonary [address] [place] [address] Phone: tel: Referral ID Status Reason Start Date Expiration Date Visits Re quested Visits Authorized [id number] Closed 10/16/2024 10/16/2025 1 1 Encounter Details Date Type Department Care Team (Latest Contact Info) Description 10/23/2024 8:04 AM EST - 10/23/2024 11:59 PM EST Hospital Encounter [facility] Pulmonary [address] [place] [phone] Severe asthma, unspecified whether complicated, unspecified whether [...] 10/23/2024 documented in this encounter Care Teams Rn Recruitment Relationship Specialty Start Date End Date Saúl Maier PA PCP - General Internal Medicine 03/06/19 documented as of this encounter
== END 2024-11-17 09:39 | disposition home or self-care (01) ==
PROVIDERS: PCP Physician Assistant; Visit Provider Dietitian, Registered
DX: E11.65 Type 2 diabetes mellitus with hyperglycemia (principal)

== ENCOUNTER → 2024-11-17 08:44 | Outpatient (BNVA) | payer OTHER, SELFPAY | PROVIDERS: PCP Physician Assistant; Visit Provider Dietitian, Registered | DX: E11.65 Type 2 diabetes mellitus with hyperglycemia (principal) | CPT/HCPCS: 97803 ==

== ENCOUNTER 2024-12-03 05:54 | Inpatient (IN) | payer OTHER, SELFPAY ==
[2024-12-03] VITALS (14 sets, daily range): BP systolic 110–147; BP diastolic 70–100; PULSE 77–100; RESP 13–24; TEMP 36.4–37.4; O2SAT 95–100; BMI 28.4
--- NOTE | 2024-12-03 | ECG_ITS ---
Test Reason : SOB Blood Pressure : */* mmHG Vent. Rate : 76 BPM Atrial Rate : 76 BPM P-R Int : 170 ms QRS Dur : 96 ms QT Int : 404 ms P-R-T Axes : 42 -3 33 degrees QTcB Int : 454 ms Normal sinus rhythm Possible Left atrial enlargement Minimal voltage criteria for LVH, may be normal variant ( R in aVL ) Abnormal ECG When compared with ECG of 01-Nov-2024 09:29, No significant changes seen Referred By: Generic ED Physician Electronically Signed By: Serge Marroquin
--- NOTE | ~2024-12-03 | CT_ITS ---
EXAMINATION: CT HEAD WITHOUT CONTRAST CLINICAL INFORMATION: seizure, reed COMPARISON: November 01, 2024. TECHNIQUE: Contiguous axial imaging was performed from the skull base to vertex without intravenous administration of contrast. This CT examination was performed using dose optimization techniques as appropriate, variously including the following: *Automated exposure control *Adjustment of mA and/or kV according to patient size (this includes techniques or standardized protocols for targeted exams where dose is matched to indication/reason for exam; i.e. extremities or head) *Use of iterative reconstruction technique DLP: 690 mGy-cm FINDINGS: The bony calvarium is intact. The skull is intact. No acute intracranial hemorrhage, mass effect, midline shift, hydrocephalus or herniation. Vora-white matter differentiation is normal. Posterior cranial fossa contents demonstrated no acute intracranial hemorrhage or mass effect. Large retention cysts versus polyp, left maxillary sinus. Mucosal thickening and secretions posterior right ethmoid air cells. Tympanic cavities and mastoid air cells are clear. No hematomas in the intraconal or extraconal compartments of the orbits. CT/CT head/brain wo IV con IMPRESSION: No acute fracture, bony calvarium. No acute intracranial hemorrhage. Stable appearance of the brain. Electronically signed by: Jose Hudson MD 12/03/2024 09:39 AM EDT
--- NOTE | ~2024-12-03 | CT_ITS ---
EXAMINATION: CT CHEST WITH IV CONTRAST, CT ABDOMEN PELVIS WITH IV CONTRAST INDICATION: seizure ?trauma, CP b/l rib pain, lower abdominal pain COMPARISON: Comparison is made with the prior chest CT dated 04/30/[address] of the abdomen and pelvis dated 05/20/2023. TECHNIQUE: CT scan of the chest, abdomen and pelvis was performed without contrast using standard departmental protocol. Coronal and sagittal reformatted images were generated and reviewed. Oral contrast material was not administered at the request of the referring physician. This CT exam was performed with one or more of the following dose reduction techniques: automated exposure control, adjustment of the mA and/or kV according to patient size, use of iterative reconstruction technique. DLP: 954 mGy-cm CHEST: THYROID: The thyroid is unremarkable. LUNGS: There are mild emphysematous changes. There is bronchial wall thickening and mucous plugging in the left lower lobe. There is patchy groundglass opacity in the left lower lobe which may represent early pneumonia. There is dependent atelectasis in the right lower lobe. MEDIASTINUM: There is no mediastinal lymphadenopathy. AN: Evaluation of the hilar regions is limited by lack of intravenous contrast material. CARDIOVASCULATURE: The heart is normal in size. There is no pericardial effusion. The thoracic aorta is normal in caliber. DEGREE OF CORONARY CALCIFICATION: none PLEURA: There is no pleural effusion. No pneumothorax. MAIN AIRWAYS: The mainstem bronchi and proximal branches are patent. AXILLA: There is no axillary lymphadenopathy. SOFT TISSUES: Unremarkable. BONES: The bones are intact. ABDOMEN: LIVER: The liver is normal in size and contour. The liver has an unremarkable unenhanced appearance. GALLBLADDER / BILE DUCTS: The gallbladder is surgically absent. There is no intra or extrahepatic biliary ductal dilatation. SPLEEN: The spleen is normal in size and has an unremarkable unenhanced appearance. PANCREAS: The pancreas has an unremarkable unenhanced appearance. ADRENAL GLANDS: Unremarkable. KIDNEYS/RETROPERITONEUM: No renal calculi are identified. There is no hydronephrosis. LYMPH NODES: No retroperitoneal lymphadenopathy is identified in the abdomen or pelvis. VASCULATURE: The abdominal aorta is normal in caliber. MESENTERY/PERITONEUM: No free fluid. No masses. There is no free intraperitoneal gas. STOMACH: The stomach is unremarkable. SMALL BOWEL: The small bowel is normal in caliber. COLON: There is a large amount of stool throughout the colon. APPENDIX: Normal. URINARY BLADDER/PELVIC ORGANS: The urinary bladder is collapsed, limiting detailed evaluation. The prostate is normal in size. BONES / SOFT TISSUES: No suspicious bony or soft tissue abnormalities. CT/CT abdomen pelvis w IV con IMPRESSION: 1. No evidence of traumatic injury to the chest, abdomen, or pelvis. Please note that evaluation for solid organ injury is limited by lack of intravenous contrast material. 2. Bronchial wall thickening and mucous plugging in the left lower lobe with associated groundglass opacity which may represent early pneumonia. 3. Large amount of stool throughout the colon. Electronically signed by: Ramses Kerr MD 12/03/2024 09:22 AM EDT
--- NOTE | ~2024-12-03 | CT_ITS ---
EXAMINATION: CT CERVICAL SPINE WITHOUT CONTRAST CLINICAL INFORMATION: Seizure. COMPARISON: July 05, 2024. TECHNIQUE: Contiguous axial images through the cervical spine using 3 mm collimation with bone and soft tissue algorithm. Sagittal and coronal reformatted images acquired. This CT examination was performed using dose optimization techniques as appropriate, variously including the following: *Automated exposure control *Adjustment of mA and/or kV according to patient size (this includes techniques or standardized protocols for targeted exams where dose is matched to indication/reason for exam; i.e. extremities or head) *Use of iterative reconstruction technique DLP: 335 mGy centimeter. FINDINGS: Craniocervical junction is intact. Marginal osteophyte formation and subchondral cyst formation and decreased intervertebral disc height at C3-4, C4-5 and C6-7 levels. Facet joint hypertrophy from C3-C4 to C5-6. C1 is intact. C2 is intact. C3 is intact. C4 is intact. C5 is intact. C6 is intact. C7 is intact. No prevertebral compartment hematoma. Paraseptal emphysematous changes in the upper lobes Tympanic cavities and mastoid cells are aerated. CT/CT cervical spine wo IV con IMPRESSION: Multilevel cervical spondylosis without acute fracture or trauma-related listhesis. Fleischner guidelines were followed. Electronically signed by: Jose Hudson MD 12/03/2024 09:49 AM EDT
[2024-12-03] MEDS: Albuterol Sulfate 7.5 MG, Albuterol Sulfate (0.083%) 2.5 MG 10 MG INHALE (06:14)
[2024-12-03 07:04] LABS: MANUAL DIFF FLAG NO
[2024-12-03 07:07] LABS: Basophils Absolute Auto 0.1 X10*3/uL (0.0-0.2); Basophils Percent Auto 0.4 % (0-2); Eosinophils Absolute Auto 0.2 X10*3/uL (0.0-0.4); Eosinophils Percent Auto 1.3 % (0-4); Hematocrit 44.6 % (42.0-52.0); Imm Gran Abs Auto 0.15 X10*3/uL (0.00-0.03); Imm Gran Pct Auto 0.9 % (0.0-0.4); Lymphocytes Percent Auto 12.6 % (20-40); Mean Corpuscular HGB Conc 35.9 g/dl (31.0-36.0); Mean Corpuscular Hemoglobin 29.1 pg (27.0-33.0); Mean Corpuscular Volume 81.1 fL (80.0-98.0); Mean Platelet Volume 8.1 fL (9.4-12.4); Monocytes Absolute Auto 0.9 X10*3/uL (0.1-1.2); Monocytes Percent Auto 5.5 % (2-11); Neutrophils Absolute Auto 12.6 x10*3/uL (2.0-8.3); Neutrophils Percent Auto 79.3 % (45-73); Platelet Count 320 X10*3/uL (160-400); Red Cell Distribution Width 13.3 % (11.0-16.0); White Blood Count 15.9 X10*3/uL (4.8-10.8)
[2024-12-03 07:22] LABS: Troponin-I High Sensitivity 15.6 ng/L (<3.5-35.0)
[2024-12-03 07:25] LABS: Alanine Aminotransferase 41 U/L (0-40); Albumin Level 4.1 g/dL (3.5-5.0); Alkaline Phosphatase 104 U/L (39-117); Aspartate Amino Transferase 39 U/L (5-37); Bilirubin Total 0.2 mg/dL (0.0-1.0); Blood Urea Nitrogen 9 mg/dL (9-16); Calcium 9.2 mg/dL (8.4-10.2); Creatinine Clr Calc Pharmacy 111.8; Estimated Glomerular Filt Rate > 60; Glucose Random 190 mg/dL (60-115); Total Protein 7.3 g/dL (6.5-8.0)
[2024-12-03 07:26] LABS: Anion Gap 20 (12-20); Carbon Dioxide 11 mmol/L (22-29); Chloride 99 mmol/L (96-108); Potassium 4.5 mmol/L (3.3-5.1); Sodium 125 mmol/L (135-145)
--- NOTE | 2024-12-03 07:27 | ED.SEIZURE ---
HPI - Seizure General Chief Complaint: Seizure Stated Complaint: Seizure asthma exacerbation postictal Time Seen by Provider: 12/03/24 06:51 Source: patient, EMS, RN notes reviewed and old records reviewed Mode of arrival: EMS History of Present Illness ED Provider: Gauri Oro PA-C HPI Narrative: 44-year-old male with a past medical history of Takotsubo cardiomyopathy, gastritis, sleep apnea, diabetes, gastroparesis, seizures follows with Dr. 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 Patient does not remember events this morning, reports headache, neck pain, chest pain, SOB, dry cough, abdominal pain, diffuse myalgias at present. Admits he had low-grade fever last night. Unknown head trauma. Lives at home with parents who were sleeping however heard fall/, motion and found patient standing/bent over in kitchen diaphoretic. Seizure History: Yes Related Data Home Medications ?Medication ?Instructions ?Recorded ?Confirmed clobazam 10 mg tablet 5 mg PO BID 12/11/23 11/11/24 hydroxyzine HCl 25 mg tablet 25 mg PO BEDTIME 06/11/24 11/11/24 lacosamide 100 mg tablet 100 mg PO BID 06/18/24 11/11/24 levothyroxine 200 mcg tablet 200 mcg PO DAILY@0612/03/24 (Synthroid) levothyroxine 25 mcg tablet 12.5 mcg PO DAILY@59912/03/24 (Synthroid) oxcarbazepine 600 mg tablet 600 mg PO BID 12/03/24 Previous Rx's ?Medication ?Instructions ?Recorded Sharps container #1 ea 12/18/22 aspirin 81 mg tablet,delayed 81 mg PO DAILY 90 days #90 tabs 01/03/23 release carvedilol 3.125 mg tablet 3.125 mg PO BID 90 days #180 tabs 03/12/24 metformin 500 mg tablet,extended 500 mg PO DAILY 90 days #90 tabs 03/12/24 release 24 hr montelukast 10 mg tablet 10 mg PO BEDTIME 90 days #90 tabs 03/12/24 cholecalciferol (vitamin D3) 50 100 mcg (2 x 50 mcg (2,000 unit)) 04/14/24 mcg (2,000 unit) capsule PO DAILY 90 days #180 caps oxcarbazepine 300 mg tablet 300 mg PO BID #180 tabs 05/02/24 (Trileptal) nystatin 100,000 unit/mL oral 5 ml PO DAILY PRN thrush 30 days 07/09/24 suspension #200 mL theophylline 400 mg 200 mg (1/2 x 400 mg) PO DAILY #45 08/18/24 tablet,extended release 24 hr tabs lansoprazole 30 mg capsule,delayed 30 mg PO DAILY #90 caps 09/18/24 release Ventolin HFA 90 mcg/actuation 2 puff PO Q6H PRN for dyspnea #3 ea 09/22/24 aerosol inhaler (albuterol sulfate) albuterol 90 mcg-budesonide 80 2 inh inhalation TID PRN shortness 09/22/24 mcg/actuation HFA aerosol inhaler of breath #10.7 grams (Airsupra) dupilumab 300 mg/2 mL subcutaneous 300 mg (2 mL) subcut Q2W 28 days 11/26/24 pen injector (Dupixent) #4 mL Allergies Allergy/AdvReac Type Severity Reaction Status Date / Time cat dander [CATS] Allergy Mild GENERALIZED Verified 12/03/24 06:05 ALLERGY SYMPTOMS dog dander [DOGS] Allergy Mild GENERALIZED Verified 12/03/24 06:05 ALLERGY SYMPTOMS tree and shrub pollen [TREE] Allergy Mild GENERALIZED Verified 12/03/24 06:05 ALLERGY SYMPTOMS FROM [place] Review of Systems Review of Systems: Yes all other systems are reviewed and are negative Constitutional: Constitutional: Reports as per HPI Neurologic: Denies Abnormal speech present [facility] Past Medical History Attestation statement: The following information was validated with the patient. Source: old records reviewed Medical History Uvulitis Claustrophobia Takotsubo cardiomyopathy Schatzki's ring Gastritis Sleep apnea Diabetes Gastroparesis Migraine headache with aura Enlarged liver Postoperative hypothyroidism Thyroid cancer Vitamin D deficiency Multinodular thyroid Seizures ABPA (allergic bronchopulmonary aspergillosis) Seizures Asthma Surgical History S/P total thyroidectomy History of esophagogastroduodenoscopy (EGD) S/P removal of thyroid nodule History of cholecystectomy Family History Family History Maternal Grandmother Emphysema, unspecified Father Diabetes Mother No problems noted. Paternal Grandfather Liver cancer Colon cancer Social History Social History Household Members: Family Housing: Apartment Are you a primary respiratory care assistant to a significant other at home: No Do you presently have visiting nurse or other home services: No Alcohol intake: never Comment: has poor balance Patient Tobacco Use Status: Never used Tobacco Smoked in Last 30 Days: No e-Cigarette/Vaping Use: Never Used Second Hand Smoke Exposure: No Use of substances other than those prescribed or required for medical reasons: No Substance Use Type: Marijuana Advance Directives: Yes Advance Directives Information Provided: No Advance Directives on File: No Advance Directives Date on File: 05/20/23 service: No Current occupational status: disabled Current occupation: rt handed Cognitive needs: No Hearing needs: No Vision needs: No Physical Exam Vital Signs: Vital Signs: Last Vital Signs Temp 97.7 F 12/03/24 12:00 Pulse 97 12/03/24 12:00 Resp 18 12/03/24 12:00 BP 137/82 12/03/24 12:00 Pulse Ox 96 12/03/24 12:00 O2 Del Method Room Air 12/03/24 12:00 BMI result Body Mass Index 28.4 Const: General: cooperative, healthy appearing and no acute distress Orientation/consciousness: patient oriented x3 Limitations: no limitations HEENT: Head: Yes normal to inspection, Yes atraumatic, No Lofton's sign and No raccoon eyes Ears: hearing grossly normal bilaterally General nose exam: Normal external nose present Face and sinus: Yes normal facial exam Mouth: no drooling Throat: Yes posterior oropharynx normal and Yes uvula midline Eyes: General: appearance normal, both eyes and all related structures Pupils: Equal, round and reactive pupils present EOM: EOMs intact bilaterally Neck: Other: + right-sided paraspinal reproducible tenderness. No palpable step-off Neck: Yes normal visual inspection and Yes no meningeal signs Chest: Other: + bilateral rib reproducible tenderness. No flail chest, erythema or ecchymosis Chest palpation & inspection: normal inspection of the chest, no crepitus and tenderness Resp: Effort & Inspection: normal respiratory effort and no respiratory distress Auscultation: wheezes expiratory wheezes and throughout Cardio: Rate: regular rate Heart sounds: S1 normal heart sound present and S2 normal heart sound present GI: Inspection: Yes normal to inspection Palpation (GI): Soft to palpation, Tenderness to palpation present (GI) periumbilically; with no rebound tenderness, no guarding and not rigid : General: Yes no CVA tenderness Back/Spine/Pelvis: Other: No midline cervical/thoracic/lumbar spinous tenderness/step-off or deformity Back: no CVA tenderness Skin: Rashes: no rashes Wounds: no wounds Neuro: General: patient oriented x3, tone normal, moves all extremities, no meningeal signs, no focal motor deficits and CN's II-XI intact bilaterally Cranial nerves: Yes CN's II-XII intact bilaterally, Yes Equal, round and reactive pupils present and Yes Bilaterally intact EOM present Cognition (Neuro): normal cognition Speech: No Abnormal speech present Motor exam (neuro): 5/5 motor strength present throughout Extrem: General: Yes normal to inspection Course Course Course Narrative: -0940--leukocytosis of 15.9. Likely reactive. Hyponatremic to 125. Lactic acidosis of 3.5 > consistent with seizure activity. Continued low suspicion for severe sepsis -AST/ALT minimally elevated. Initial troponin 15.[address] head/brain wo IV con IMPRESSION: No acute fracture, bony calvarium. No acute intracranial hemorrhage. Stable appearance of the brain. CT chest w IV con/CT abdomen pelvis w IV con IMPRESSION: 1. No evidence of traumatic injury to the chest, abdomen, or pelvis. Please note that evaluation for solid organ injury is limited by lack of intravenous contrast material. 2. Bronchial wall thickening and mucous plugging in the left lower lobe with associated groundglass opacity which may represent early pneumonia. 3. Large amount of stool throughout the colon. > will obtain blood cultures and give empiric Rocephin/Azithromycin. CT cervical spine wo IV con IMPRESSION: Multilevel cervical spondylosis without acute fracture or trauma-related listhesis. Fleischner guidelines were followed. > plan to admit for further management -1127--repeat lactic acid mildly improved to 2.7. Repeat troponin with increase to 267.5 > patient dry heaving, vomiting, and diaphoretic. Still reporting chest pain. Repeat EKG being done, ASA/Zofran ordered. Will contact Cardiology, Lopez >> upon further chart review patient with similar episode in the past was elevated troponins s/p asthma/pneumonia and seizure. > recommended stat echo, posterior EKG, and will evaluate patient shortly. -cardiology does not recommend initiating heparin at this time. We will continue to trend troponins, treat pneumonia/asthma and obtain echo Medications Administered Discontinued Medications Generic Name Dose Route Start Last Admin Trade Name Freq PRN Reason Stop Dose Admin Acetaminophen 650 mg 12/03/24 07:14 12/03/24 08:17 Acetaminophen 325 Mg Tablet PO 12/03/24 07:15 650 mg ONCE ONE Administration Albuterol Sulfate 7.5 mg/ 10 mg 12/03/24 06:06 12/03/24 06:14 Albuterol Sulfate 2.5 mg INHALE 12/03/24 06:07 10 mg ONCE ONE Administration Aspirin 325 mg 12/03/24 11:29 12/03/24 11:40 Aspirin Enteric Coated 325 Mg Tablet. PO 12/03/24 11:30 325 mg ONCE ONE Administration Ceftriaxone Sodium 1 gm 12/03/24 09:40 12/03/24 10:53 Ceftriaxone Sodium 1 Gm Vial IVPUSH 12/03/24 09:41 1 gm ONCE ONE Administration Sodium Chloride 1,000 mls @ 999 mls/hr 12/03/24 07:15 12/03/24 09:55 Ns IV 12/03/24 08:15 Infused .Q1H1M FREDY Infusion Magnesium Sulfate 2 gm in 50 mls @ 25 mls/hr 12/03/24 07:03 12/03/24 08:16 Magnesium Sulfate/H2o IV 12/03/24 09:02 25 mls/hr ONCE ONE Administration Azithromycin 500 mg/ Sodium 250 mls @ 125 mls/hr 12/03/24 09:40 12/03/24 10:52 Chloride IV 12/03/24 11:39 125 mls/hr ONCE ONE Administration Lacosamide 100 mg 12/03/24 09:44 12/03/24 10:53 Lacosamide 100 Mg Tablet PO 12/03/24 09:45 100 mg ONCE ONE Administration Lorazepam 1 mg 12/03/24 07:19 12/03/24 08:17 Lorazepam 2 Mg/Ml Vial IVPUSH 12/03/24 07:20 1 mg STAT STA Administration Ondansetron HCl 4 mg 12/03/24 11:29 12/03/24 11:40 Ondansetron Hcl 4 Mg/2 Ml Vial IVPUSH 12/03/24 11:30 4 mg ONCE ONE Administration Oxcarbazepine 300 mg 12/03/24 09:44 12/03/24 10:53 Oxcarbazepine 300 Mg Tablet PO 12/03/24 09:45 300 mg ONCE ONE Administration Medical Decision Making Medical Decision Making MDM Narrative: 44-year-old male with a past medical history of Takotsubo cardiomyopathy, gastritis, sleep apnea, diabetes, gastroparesis, seizures follows with Dr. 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 Patient does not remember events this morning, reports headache, neck pain, chest pain, SOB, dry cough, abdominal pain, diffuse myalgias at present. On exam tachypneic, satting 97% on RA with diffuse expiratory wheeze. Reproducible paraspinal neck tenderness. Reproducible chest wall tenderness, abdomen is soft with lower tenderness, no rebound or guarding, no focal deficits. Concern for seizure and asthma exacerbation. Rule out viral illness. Rule out ICH, fractures, intrathoracic and intra-abdominal bleeding/injury. Low suspicion for severe sepsis at this time Plan: EKG, labs, UA, tox screen, head/C-spine CT, chest CT, abdomen pelvis CT, IVF, Ativan, seizure levels, re-evaluate Please refer to course for remaining clinical decision making, interpretation of labs/imaging results, and discussions with consultants and/or family members. Differential Diagnosis Differential Diagnoses: The differential diagnosis associated with the presentation includes As above Admission/Observation Consideration of admission/observation: Escalation of care including admission/observation considered Consult Healthcare Provider Management of the patient was discussed with: Hospitalist and Plate Keeper Lab Data [facility] Lab Attestation statement: I reviewed the patient's lab results. 12/03/24 06:58 12/03/24 06:44 Labs: Lab Results 12/03/24 12/03/24 12/03/24 Range/Units 06:44 06:58 07:37 WBC 15.9 H (4.8-10.8) X10*3/uL RBC 5.50 (4.60-5.80) X10*6/uL Hgb 16.0 (14.0-18.0) g/dl Hct 44.6 (42.0-52.0) % MCV 81.1 (80.0-98.0) fL MCH 29.1 (27.0-33.0) pg MCHC 35.9 (31.0-36.0) g/dl RDW 13.3 (11.0-16.0) % Plt Count 320 D (160-400) X10*3/uL MPV 8.1 L (9.4-12.4) fL Immature Gran % (Auto) 0.9 H (0.0-0.4) % Neut % (Auto) 79.3 H (45-73) % Lymph % (Auto) 12.6 L (20-40) % [place] % (Auto) 5.5 (2-11) % Eos % (Auto) 1.3 (0-4) % Baso % (Auto) 0.4 (0-2) % Lymph # (Auto) 2.0 (1.2-4.9) X10*3/uL [place] # (Auto) 0.9 (0.1-1.2) X10*3/uL Eos # (Auto) 0.2 (0.0-0.4) X10*3/uL Baso # (Auto) 0.1 (0.0-0.2) X10*3/uL Abs Immat Gran (auto) 0.15 H (0.00-0.03) X10*3/uL Absolute Neuts (auto) 12.6 H (2.0-8.3) x10*3/uL Absolute Nucleated RBC 0.000 (0.0-0.012) X10*3/uL Nucleated RBC % (auto) 0.0 (0.0-0.2) /100WBC VBG pH (7.32-7.43) VBG pCO2 mmHg VBG pO2 mmHg VBG HCO3 (22-26) mmol/L VBG O2 Saturation % VBG Base Excess mmol/L Sodium 125 L (135-145) mmol/L Potassium 4.5 (3.3-5.1) mmol/L Chloride 99 (96-108) mmol/L Carbon Dioxide 11 L (22-29) mmol/L Anion Gap 20 (12-20) BUN 9 (9-16) mg/dL Creatinine 0.80 (0.5-1.4) mg/dL Estim Creat Clear Calc 111.8 Estimated GFR > 60 POC Glucose (60-115) mg/dL Random Glucose 190 H (60-115) mg/dL Lactic Acid 3.5 H* (0.5-2.0) mmol/L Lactic Acid F/U @ 2Hr (0.5-2.0) mmol/L Calcium 9.2 (8.4-10.2) mg/dL Magnesium (1.6-2.6) mg/dL Total Bilirubin 0.2 (0.0-1.0) mg/dL AST 39 H (5-37) U/L ALT 41 H (0-40) U/L Alkaline Phosphatase 104 (39-117) U/L Total Creatine Kinase 154 (38-174) U/L Troponin I High Sens 15.6 D (<3.5-35.0) ng/L Total Protein 7.3 (6.5-8.0) g/dL Albumin 4.1 (3.5-5.0) g/dL Lipase (8-78) U/L Urine Color Urine Appearance Urine pH (5.0-9.0) Ur Specific [place] (1.005-1.025) Urine Protein (Neg-Trace) mg/dL Urine Glucose (UA) (Negative) mg/dL Urine Ketones (Negative) mg/dL Urine Blood (Negative) Urine Nitrite (Negative) Ur Leukocyte Esterase (Negative) Urine RBC (0-2) /HPF Urine WBC (0-5) /HPF Ur Squamous Epith Cells (0-2) /HPF Urine Bacteria (None Seen) Hyaline Casts (0-2) /LPF Urine Opiates Screen (Not Detect) Ur Buprenorphine Scrn (Not Detect) ng/mL Ur Oxycodone Screen (Not Detect) ng/mL Urine Methadone Screen (Not Detect) ng/mL Urine Fentanyl Screen (Not Detect) Ur Barbiturates Screen (Not Detect) Ur Phencyclidine Scrn (Not Detect) Ur Amphetamines Screen (Not Detect) U Benzodiazepines Scrn (Not Detect) Urine Cocaine Screen (Not Detect) U Marijuana (THC) Screen (Not Detect) 12/03/24 12/03/24 12/03/24 Range/Units 07:42 08:15 10:10 WBC (4.8-10.8) X10*3/uL RBC (4.60-5.80) X10*6/uL Hgb (14.0-18.0) g/dl Hct (42.0-52.0) % MCV (80.0-98.0) fL MCH (27.0-33.0) pg MCHC (31.0-36.0) g/dl RDW (11.0-16.0) % Plt Count (160-400) X10*3/uL MPV (9.4-12.4) fL Immature Gran % (Auto) (0.0-0.4) % Neut % (Auto) (45-73) % Lymph % (Auto) (20-40) % [place] % (Auto) (2-11) % Eos % (Auto) (0-4) % Baso % (Auto) (0-2) % Lymph # (Auto) (1.2-4.9) X10*3/uL [place] # (Auto) (0.1-1.2) X10*3/uL Eos # (Auto) (0.0-0.4) X10*3/uL Baso # (Auto) (0.0-0.2) X10*3/uL Abs Immat Gran (auto) (0.00-0.03) X10*3/uL Absolute Neuts (auto) (2.0-8.3) x10*3/uL Absolute Nucleated RBC (0.0-0.012) X10*3/uL Nucleated RBC % (auto) (0.0-0.2) /100WBC VBG pH 7.37 (7.32-7.43) VBG pCO2 29 mmHg VBG pO2 43 mmHg VBG HCO3 17 L (22-26) mmol/L VBG O2 Saturation 73.0 % VBG Base Excess -6.1 mmol/L Sodium (135-145) mmol/L Potassium (3.3-5.1) mmol/L Chloride (96-108) mmol/L Carbon Dioxide (22-29) mmol/L Anion Gap (12-20) BUN (9-16) mg/dL Creatinine (0.5-1.4) mg/dL Estim Creat Clear Calc Estimated GFR POC Glucose (60-115) mg/dL Random Glucose (60-115) mg/dL Lactic Acid (0.5-2.0) mmol/L Lactic Acid F/U @ 2Hr (0.5-2.0) mmol/L Calcium (8.4-10.2) mg/dL Magnesium 1.8 (1.6-2.6) mg/dL Total Bilirubin (0.0-1.0) mg/dL AST (5-37) U/L ALT (0-40) U/L Alkaline Phosphatase (39-117) U/L Total Creatine Kinase (38-174) U/L Troponin I High Sens (<3.5-35.0) ng/L Total Protein (6.5-8.0) g/dL Albumin (3.5-5.0) g/dL Lipase 42 (8-78) U/L Urine Color Yellow Urine Appearance Clear Urine pH 6.5 (5.0-9.0) Ur Specific [place] 1.015 (1.005-1.025) Urine Protein 100 (2+) H (Neg-Trace) mg/dL Urine Glucose (UA) 250 H (Negative) mg/dL Urine Ketones Negative (Negative) mg/dL Urine Blood Negative (Negative) Urine Nitrite Negative (Negative) Ur Leukocyte Esterase Negative (Negative) Urine RBC 0-2 (0-2) /HPF Urine WBC 0-5 (0-5) /HPF Ur Squamous Epith Cells 0-2 (0-2) /HPF Urine Bacteria None Seen (None Seen) Hyaline Casts 0-2 (0-2) /LPF Urine Opiates Screen Not Detected (Not Detect) Ur Buprenorphine Scrn Not Detected (Not Detect) ng/mL Ur Oxycodone Screen Not Detected (Not Detect) ng/mL Urine Methadone Screen Not Detected (Not Detect) ng/mL Urine Fentanyl Screen Not Detected (Not Detect) Ur Barbiturates Screen Not Detected (Not Detect) Ur Phencyclidine Scrn Not Detected (Not Detect) Ur Amphetamines Screen Not Detected (Not Detect) U Benzodiazepines Scrn POSITIVE H (Not Detect) Urine Cocaine Screen Not Detected (Not Detect) U Marijuana (THC) Screen POSITIVE H (Not Detect) 12/03/24 12/03/24 Range/Units 10:41 11:29 WBC (4.8-10.8) X10*3/uL RBC (4.60-5.80) X10*6/uL Hgb (14.0-18.0) g/dl Hct (42.0-52.0) % MCV (80.0-98.0) fL MCH (27.0-33.0) pg MCHC (31.0-36.0) g/dl RDW (11.0-16.0) % Plt Count (160-400) X10*3/uL MPV (9.4-12.4) fL Immature Gran % (Auto) (0.0-0.4) % Neut % (Auto) (45-73) % Lymph % (Auto) (20-40) % [place] % (Auto) (2-11) % Eos % (Auto) (0-4) % Baso % (Auto) (0-2) % Lymph # (Auto) (1.2-4.9) X10*3/uL [place] # (Auto) (0.1-1.2) X10*3/uL Eos # (Auto) (0.0-0.4) X10*3/uL Baso # (Auto) (0.0-0.2) X10*3/uL Abs Immat Gran (auto) (0.00-0.03) X10*3/uL Absolute Neuts (auto) (2.0-8.3) x10*3/uL Absolute Nucleated RBC (0.0-0.012) X10*3/uL Nucleated RBC % (auto) (0.0-0.2) /100WBC VBG pH (7.32-7.43) VBG pCO2 mmHg VBG pO2 mmHg VBG HCO3 (22-26) mmol/L VBG O2 Saturation % VBG Base Excess mmol/L Sodium (135-145) mmol/L Potassium (3.3-5.1) mmol/L Chloride (96-108) mmol/L Carbon Dioxide (22-29) mmol/L Anion Gap (12-20) BUN (9-16) mg/dL Creatinine (0.5-1.4) mg/dL Estim Creat Clear Calc Estimated GFR POC Glucose 163 H (60-115) mg/dL Random Glucose (60-115) mg/dL Lactic Acid (0.5-2.0) mmol/L Lactic Acid F/U @ 2Hr 2.7 H* (0.5-2.0) mmol/L Calcium (8.4-10.2) mg/dL Magnesium (1.6-2.6) mg/dL Total Bilirubin (0.0-1.0) mg/dL AST (5-37) U/L ALT (0-40) U/L Alkaline Phosphatase (39-117) U/L Total Creatine Kinase (38-174) U/L Troponin I High Sens 267.5 H* D (<3.5-35.0) ng/L Total Protein (6.5-8.0) g/dL Albumin (3.5-5.0) g/dL Lipase (8-78) U/L Urine Color Urine Appearance Urine pH (5.0-9.0) Ur Specific [place] (1.005-1.025) Urine Protein (Neg-Trace) mg/dL Urine Glucose (UA) (Negative) mg/dL Urine Ketones (Negative) mg/dL Urine Blood (Negative) Urine Nitrite (Negative) Ur Leukocyte Esterase (Negative) Urine RBC (0-2) /HPF Urine WBC (0-5) /HPF Ur Squamous Epith Cells (0-2) /HPF Urine Bacteria (None Seen) Hyaline Casts (0-2) /LPF Urine Opiates Screen (Not Detect) Ur Buprenorphine Scrn (Not Detect) ng/mL Ur Oxycodone Screen (Not Detect) ng/mL Urine Methadone Screen (Not Detect) ng/mL Urine Fentanyl Screen (Not Detect) Ur Barbiturates Screen (Not Detect) Ur Phencyclidine Scrn (Not Detect) Ur Amphetamines Screen (Not Detect) U Benzodiazepines Scrn (Not Detect) Urine Cocaine Screen (Not Detect) U Marijuana (THC) Screen (Not Detect) Independent Interpretation I performed an independent interpretation of an: EKG (#1: Normal sinus rhythm rate of 76. TN interval 170. QRS 96. No STEMI.) Interpretation: #2: My interpretation EKG normal sinus rhythm rate of 99. TN interval 158. QTC 462. No significant change when compared to prior. No STEMI Radiology Impression Discussion of test interpretation with radiology: I have reviewed the radiologist's reading. External Record Review External record reviewed: Inpatient record, Office record, Outpatient record, Prior outpatient labs, Prior outpatient radiology, Primary care record and Outside ED record Tests considered The following testing was considered but not selected: As above Critical Care Time Critical Care Time Critical Care Time: Yes Total Critical Care Time: 50 Attestation: I have personally provided critical care time exclusive of time spent on separately billable procedures. Time includes review of lab data, radiology results, discussion with consultants, and monitoring for potential decompensation. Intervention performed as documented. Discharge Plan Discharge Clinical Impression: Breakthrough seizure, Pneumonia, Asthma exacerbation, Acute hyponatremia, Elevated troponin Patient Disposition: Admitted As Inpatient Print Language: Yakut
[2024-12-03 07:45] LABS: Venous Blood Gas Refer to POC result
[2024-12-03 07:46] LABS: VBG Base Excess -6.1 mmol/L; VBG HCO3 17 mmol/L (22-26); VBG pCO2 29 mmHg; VBG pH 7.37 (7.32-7.43); VBG pO2 43 mmHg
[2024-12-03 08:10] LABS: Lactic Acid 3.5 mmol/L (0.5-2.0)
[2024-12-03] MEDS: Magnesium Sulfate/H2O 2 GM/50 ML PIGGYBACK IV (08:16)
[2024-12-03] MEDS: 0.9 % Sodium Chloride 1,000 ML 999 ML IV (08:17)
[2024-12-03] MEDS: LORazepam 2 MG/ML VIAL 1 MG IVPUSH (08:17)
[2024-12-03] MEDS: Acetaminophen 325 MG TABLET 650 MG PO (08:17)
--- NOTE | 2024-12-03 08:32 | PC.RT ---
pt assessed this am at 0745. bs clear jeannette no resp distress. no complaints of breathing difficulties. sats 97% room air
[2024-12-03 08:37] LABS: Lipase 42 U/L (8-78); Magnesium 1.8 mg/dL (1.6-2.6)
--- NOTE | 2024-12-03 08:45 | PC.NURSE ---
Pt A+OX3; vss; LS CTA all wright; 99% RA at this time; pt EXTREMELY difficult stick; IV line from EMS pulled out; U/S IV L arm infiltrated/removed; will have U/S IV attempted again; no IV access at this time
[2024-12-03 09:42] LABS: Reflex Lactate? Lactic Acid Added
[2024-12-03 10:18] LABS: Appearance Urine Clear; Color Urine Yellow; Glucose Urine UA 250 mg/dL (Negative); Leukocyte Esterase Urine Negative (Negative); Nitrite Urine Negative (Negative); PH 6.5 (5.0-9.0); Specific Gravity - Urine 1.015 (1.005-1.025); UMIC TRIGGER UACC YES; Urine Blood Negative (Negative); Urine Ketones Negative (Negative); Urine Protein 100 (2+) mg/dL (Neg-Trace)
[2024-12-03 10:23] LABS: Bacteria Urine None Seen (None Seen); Hyaline Casts Urine 0-2 /LPF (0-2); RBC Urine 0-2 /HPF (0-2); Squamous Epithelial Cell Urine 0-2 /HPF (0-2); WBC Urine 0-5 /HPF (0-5)
[2024-12-03 10:34] LABS: Amphetamine Screen Urine Not Detected (Not Detect); Barbiturates, Urine Not Detected (Not Detect); Benzodiazepines Screen Urine POSITIVE (Not Detect); Buprenorphine Scr Not Detected (Not Detect); Cannabinoid Screen Urine POSITIVE (Not Detect); Cocaine Screen Urine Not Detected (Not Detect); Fentanyl, urine Not Detected (Not Detect); Methadone Screen, Urine Not Detected (Not Detect); Opiate Screen Urine Not Detected (Not Detect); Oxycodone Screen Urine Not Detected (Not Detect); Phencyclidine Screen Urine Not Detected (Not Detect)
[2024-12-03] MEDS: Azithromycin 500 MG in 0.9 % Sodium Chloride 250 ML 125 MG IV (10:52)
[2024-12-03] MEDS: OXcarbazepine 300 MG TABLET PO ×2 (10:53→20:52)
[2024-12-03] MEDS: cefTRIAXone sodium 1 GM VIAL IVPUSH (10:53)
[2024-12-03] MEDS: Lacosamide 100 MG TABLET PO ×2 (10:53→20:52)
--- NOTE | 2024-12-03 11:14 | P.HPHOSP_ITS ---
History of Present Illness Date of Service: 12/03/24 Chief Complaint: SOB, seizure Pt is a 44-year-old male with a PMH significant for?epilepsy, takotsubo cardiomyopathy, severe persistent asthma, bipolar cancer s/p thyroidectomy, Barretts esophagus, [id number] type 2 diabetes, MEHNAZ on CPAP prn, and mood disorder who presents to the ED for evaluation of breakthrough seizure. Pt comes from home where he lives with his mother and father. Last thing pt remembers is brushing his teeth last night and then waking up in the hospital. This morning pt's mother and father were awoken to sound of items being knocked over in the kitchen. Father than found pt standing in the kitchen, pt acdl-pto-inrghyw and extremely diaphoretic and struggling to breathe.. Was confused and unable to speak clearly. Family report similar presentations after prior seizures. Pt reports last breakthrough seizure was in April of last year when he admitted to this hospital. Pt himself currently complains of increased SOB, difficulty breathing, and nonproductive cough for the past 2 weeks. Has been using home inhalers to minimal effect. Follows with Dr. Powers in Neurology and has been compliant with lacosamide, Trileptal, and clobazam. No repeated seizure-like activity while in the ED, however, pt was noted to suddenly become diaphoretic and had episodes of nausea and vomiting. Repeat troponin was noted to increased 15.6 -->267.5. Pt complaining of sharp and stabbing substernal and left-sided chest pain. In the ED pt was tachycardic up to 97, tachypneic up to 24, and hypoxic at 88 %, improved 97% on 5 L NC. Labs were significant for leukocytosis of 15.9, sodium 125, lactic acid 3.5, AST mildly elevated at 39 and T mildly elevated at 41. Stable H&H. Renal function baseline. Initial troponin 15.6. UA negative for UTI. CT of head negative for acute fracture or intracranial abnormality. CT of cervical spine with multilevel spondylolysis without acute fracture. CTA of chest and abdomen negative for traumatic injury, but CTA of chest showed bronchial wall thickening and mucus plugging in left lower lobe associated with ground-glass opacity suspicious for possible early pneumonia. EKG demonstrated sinus rhythm without significant ischemic changes from prior. Pt was treated with Solu-Medrol IV and DuoNebs by EMS, and in the ED received DuoNeb, Mag sulfate, IVF, lorazepam, home oxcarbazepine and lacosamide, and azithromycin and ceftriaxone. Pt will be admitted to the hospital for treatment and further evaluation of multiple issues, including breakthrough seizure, elevated troponins, and pneumonia meeting SIRS criteria. Review of Systems 2 Review of Systems: Negative except for that which is stated in the HPI. [facility] Medical History Uvulitis Claustrophobia Takotsubo cardiomyopathy Schatzki's ring Gastritis Sleep apnea Diabetes Gastroparesis Migraine headache with aura Enlarged liver Postoperative hypothyroidism Thyroid cancer Vitamin D deficiency Multinodular thyroid Seizures ABPA (allergic bronchopulmonary aspergillosis) Seizures Asthma Family History Maternal Grandmother Emphysema, unspecified Father Diabetes Mother No problems noted. Paternal Grandfather Liver cancer Colon cancer Surgical History S/P total thyroidectomy History of esophagogastroduodenoscopy (EGD) S/P removal of thyroid nodule History of cholecystectomy Social History Household Members: Family Housing: Apartment Are you a primary home child care provider to a significant other at home: No Do you presently have visiting nurse or other home services: No Alcohol intake: never Comment: has poor balance Patient Tobacco Use Status: Never used Tobacco Smoked in Last 30 Days: No e-Cigarette/Vaping Use: Never Used Second Hand Smoke Exposure: No Use of substances other than those prescribed or required for medical reasons: No Substance Use Type: Marijuana Advance Directives: Yes Advance Directives Information Provided: No Advance Directives on File: No Advance Directives Date on File: 05/20/23 Nutrition Risks: No Nutritional Risk service: No Current occupational status: disabled Current occupation: rt handed Cognitive needs: No Hearing needs: No Vision needs: No Meds Allergies Allergy/AdvReac Type Severity Reaction Status Date / Time cat dander [CATS] Allergy Mild GENERALIZED Verified 12/03/24 06:05 ALLERGY SYMPTOMS dog dander [DOGS] Allergy Mild GENERALIZED Verified 12/03/24 06:05 ALLERGY SYMPTOMS tree and shrub pollen [TREE] Allergy Mild GENERALIZED Verified 12/03/24 06:05 ALLERGY SYMPTOMS FROM PINE TREES Active Medications: Current Medications Azithromycin 500 mg/ Sodium (Chloride) 250 mls @ 125 mls/hr IV ONCE ONE Stop: 12/03/24 11:39 Last Admin: 12/03/24 10:52 Dose: 125 mls/hr Home Medications ?Medication ?Instructions ?Recorded ?Confirmed ?Last Taken ?Type clobazam 10 mg tablet 5 mg PO BID 12/11/23 12/03/24 12/02/24 History hydroxyzine HCl 25 mg tablet 25 mg PO BEDTIME PRN Anxiety 06/11/24 12/03/24 Unknown History lacosamide 100 mg tablet 100 mg PO BID 06/18/24 12/03/24 12/02/24 History levothyroxine 200 mcg tablet 200 mcg PO DAILY@0600 12/03/24 12/03/24 12/02/24 History (Synthroid) levothyroxine 25 mcg tablet 12.5 mcg PO DAILY@0600 12/03/24 12/03/24 12/02/24 History (Synthroid) lisinopril 10 mg tablet 10 mg PO DAILY 12/03/24 12/03/24 12/02/24 History metformin 500 mg tablet,extended 500 mg PO BEDTIME 12/03/24 12/03/24 12/02/24 History release 24 hr oxcarbazepine 600 mg tablet 600 mg PO BID 12/03/24 12/03/24 12/02/24 History sertraline 100 mg tablet 100 mg PO BEDTIME 12/03/24 12/03/24 12/02/24 History sucralfate 1 gram tablet 1 g PO DAILY 12/03/24 12/03/24 12/02/24 History Physical Exam 2 Vital Signs and Narrative: Vital Signs: Last Vital Signs Temp 97.7 F 12/03/24 09:59 Pulse 97 12/03/24 09:59 Resp 18 12/03/24 09:59 BP 111/70 12/03/24 09:59 Pulse Ox 96 12/03/24 09:59 O2 Del Method Room Air 12/03/24 09:59 BMI result Body Mass Index 28.4 General: AOx3, no acute distress Resp: Lung sounds diminished, poor airflow CVS: S1, S2, RRR GI: +BS, no distention, mild periumbilical tenderness Skin: Warm, dry Neuro: Cranial nerves II-XII grossly intact bilaterally. Motor grossly intact bilaterally. Focal deficits noted. No tremors noted Extremities: No edema Psych: Appropriate affect Results Labs 12/03/24 06:58 12/03/24 06:44 Labs: Laboratory Results - last 24 hr 12/03/24 12/03/24 12/03/24 06:44 06:58 07:37 MCV 81.1 MCH 29.1 MCHC 35.9 RDW 13.3 Plt Count 320 D MPV 8.1 L Immature Gran % (Auto) 0.9 H Neut % (Auto) 79.3 H Lymph % (Auto) 12.6 L Day % (Auto) 5.5 Eos % (Auto) 1.3 Baso % (Auto) 0.4 Lymph # (Auto) 2.0 Day # (Auto) 0.9 Eos # (Auto) 0.2 Baso # (Auto) 0.1 Abs Immat Gran (auto) 0.15 H Absolute Neuts (auto) 12.6 H Absolute Nucleated RBC 0.000 Nucleated RBC % (auto) 0.0 VBG pH VBG pCO2 VBG pO2 VBG HCO3 VBG O2 Saturation VBG Base Excess Anion Gap 20 Estim Creat Clear Calc 111.8 Estimated GFR > 60 Random Glucose 190 H Lactic Acid 3.5 H* Calcium 9.2 Magnesium Total Bilirubin 0.2 AST 39 H ALT 41 H Alkaline Phosphatase 104 Total Creatine Kinase 154 Total Protein 7.3 Albumin 4.1 Lipase Urine Color Urine Appearance Urine pH Ur Specific [place] Urine Protein Urine Glucose (UA) Urine Ketones Urine Blood Urine Nitrite Ur Leukocyte Esterase Urine RBC Urine WBC Ur Squamous Epith Cells Urine Bacteria Hyaline Casts Urine Opiates Screen Ur Buprenorphine Scrn Ur Oxycodone Screen Urine Methadone Screen Urine Fentanyl Screen Ur Barbiturates Screen Ur Phencyclidine Scrn Ur Amphetamines Screen U Benzodiazepines Scrn Urine Cocaine Screen U Marijuana (THC) Screen 12/03/24 12/03/24 12/03/24 07:42 08:15 10:10 MCV MCH MCHC RDW Plt Count MPV Immature Gran % (Auto) Neut % (Auto) Lymph % (Auto) Day % (Auto) Eos % (Auto) Baso % (Auto) Lymph # (Auto) Day # (Auto) Eos # (Auto) Baso # (Auto) Abs Immat Gran (auto) Absolute Neuts (auto) Absolute Nucleated RBC Nucleated RBC % (auto) VBG pH 7.37 VBG pCO2 29 VBG pO2 43 VBG HCO3 17 L VBG O2 Saturation 73.0 VBG Base Excess -6.1 Anion Gap Estim Creat Clear Calc Estimated GFR Random Glucose Lactic Acid Calcium Magnesium 1.8 Total Bilirubin AST ALT Alkaline Phosphatase Total Creatine Kinase Total Protein Albumin Lipase 42 Urine Color Yellow Urine Appearance Clear Urine pH 6.5 Ur Specific [place] 1.015 Urine Protein 100 (2+) H Urine Glucose (UA) 250 H Urine Ketones Negative Urine Blood Negative Urine Nitrite Negative Ur Leukocyte Esterase Negative Urine RBC 0-2 Urine WBC 0-5 Ur Squamous Epith Cells 0-2 Urine Bacteria None Seen Hyaline Casts 0-2 Urine Opiates Screen Not Detected Ur Buprenorphine Scrn Not Detected Ur Oxycodone Screen Not Detected Urine Methadone Screen Not Detected Urine Fentanyl Screen Not Detected Ur Barbiturates Screen Not Detected Ur Phencyclidine Scrn Not Detected Ur Amphetamines Screen Not Detected U Benzodiazepines Scrn POSITIVE H Urine Cocaine Screen Not Detected U Marijuana (THC) Screen POSITIVE H Imaging Radiologist's Impressions: Impressions Cervical Spine CT 12/03/24 07:03 IMPRESSION: Multilevel cervical spondylosis without acute fracture or trauma-related listhesis. Fleischner guidelines were followed. Electronically signed by: Jose Hudson MD 12/03/2024 09:[address] 12/03/24 07:03 IMPRESSION: No acute fracture, bony calvarium. No acute intracranial hemorrhage. Stable appearance of the brain. Electronically signed by: Jose Hudson MD 12/03/2024 09:[address] 12/03/24 07:09 IMPRESSION: 1. No evidence of traumatic injury to the chest, abdomen, or pelvis. Please note that evaluation for solid organ injury is limited by lack of intravenous contrast material. 2. Bronchial wall thickening and mucous plugging in the left lower lobe with associated groundglass opacity which may represent early pneumonia. 3. Large amount of stool throughout the colon. Electronically signed by: Ramses Kerr MD 12/03/2024 09:22 AM EDT Abdomen/Pelvis CT 12/03/24 08:25 IMPRESSION: 1. No evidence of traumatic injury to the chest, abdomen, or pelvis. Please note that evaluation for solid organ injury is limited by lack of intravenous contrast material. 2. Bronchial wall thickening and mucous plugging in the left lower lobe with associated groundglass opacity which may represent early pneumonia. 3. Large amount of stool throughout the colon. Electronically signed by: Ramses Kerr MD 12/03/2024 09:22 AM EDT RP Assessment and Plan (1) Elevated troponin: Status: Acute (2) Acute hyponatremia: Status: Acute (3) Asthma exacerbation: Status: Acute (4) Pneumonia: Status: Acute (5) Breakthrough seizure: Status: Acute Plan Pt is a 44-year-old male with a PMH significant for?epilepsy, takotsubo cardiomyopathy, severe persistent asthma, bipolar cancer s/p thyroidectomy, Barretts esophagus, jaj-ymsstyc-[id number] type 2 diabetes, MEHNAZ on CPAP prn, and mood disorder who presents to the ED for evaluation of breakthrough seizure. Pt will be admitted to the hospital for treatment and further evaluation of multiple issues, including breakthrough seizure, elevated troponins, and pneumonia meeting SIRS criteria. Breakthrough seizure Found by family this morning in kitchen confused, diaphoretic, after likely fall to the floor; has had similar presentations in the past post-seizure Reports compliance with home meds, last breakthrough seizure April of last year CT of head, cervical spine, chest, and abdomen/pelvis negative Pt given Ativan 1mg IV in the ED Check oxcarbazepine, lacosamide levels Neurology consult Monitor on telemetry Elevated troponins Initial troponin 15.6 with repeat with delta of 267.5 and 403.5 Atypical chest pain: substernal and left-sided sharp and stabbing chest pain EKG without ischemic changes from prior Pt given aspirin Nitroglycerin sublingually Continue aspirin Echocardiogram Cardiology consult Trend troponins Monitor on telemetry Acute hypoxic respiratory failure in the setting of acute asthma exacerbation with superimposed pneumonia with sepsis Pt with increased SOB, TOL[place], cough times 2 weeks Initially found to be hypoxic at 88% by EMS, currently satting at 96% on RA CT of chest concerning for early pneumonia in LLL Meets sepsis criteria with tachycardia, tachypnea, and leukocytosis; lactic acid 3.5 with repeat 2.7 at 1.9 Pt given IVF and started on broad-spectrum antibiotics Will treat with ceftriaxone azithromycin, started 12/03/2024 Solu-Medrol, DuoNebs, guaifenesin Monitor respiratory status Acute hyponatremia Initial sodium 125 at time of presentation Possibly secondary to seizure activity Pt received IVF in the ED Check urine studies Follow sodium closely HTN Continue carvedilol and lisinopril [id number] type 2 diabetes Hold metformin Sliding-scale insulin Diabetic diet Hypothyroidism Continue levothyroxine Full Code Attending:?Dr. Cabello DVT Prophylaxis: Lovenox Pt will require a hospitalization of at least two nights for treatment of?multiple issues, including breakthrough seizure, acute hypoxic respiratory failure setting of acute asthma exacerbation with superimposed troponin with sepsis, elevated troponins, and acute hyponatremia. Pt will require hospital level care for administration of antibiotics, IV steroids, bronchodilators, close monitoring cardiac function, and specialist consultation with both Neurology and Cardiology. Quality Stroke Does the patient have a stroke diagnosis?: No VTE Prior VTE?: No VTE Risk Level:: Medical - moderate - high VTE Device Contraindication: Treatment Not Indicated VTE Drug Contraindication: N/A - Med Ordered
[2024-12-03 11:20] LABS: Troponin-I High Sensitivity 267.5 ng/L (<3.5-35.0); ~Lactic Acid-LAB USE ONLY 2.7 mmol/L (0.5-2.0)
--- NOTE | 2024-12-03 11:28 | ECG_ITS ---
Test Reason : VOMITTING Blood Pressure : */* mmHG Vent. Rate : 99 BPM Atrial Rate : 99 BPM P-R Int : 158 ms QRS Dur : 96 ms QT Int : 360 ms P-R-T Axes : 25 -14 32 degrees QTcB Int : 462 ms Normal sinus rhythm Possible Left atrial enlargement Left ventricular hypertrophy ( R in aVL , [employer] product , Romhilt-Su ) Cannot rule out Septal infarct (cited on or before 03-Dec-2024) Abnormal ECG When compared with ECG of 03-Dec-2024 06:16, No significant change was found Referred By: Gauri Oro Electronically Signed By: Serge Marroquin
[2024-12-03 11:33] LABS: Glucose, Whole Blood 163 mg/dL (60-115)
--- NOTE | 2024-12-03 11:39 | PHA.MEDREC ---
Pharmacy Consult ? Medication Reconciliation Pharmacy attempted to speak with patient. Patient not alert and not answering my questions. Spoke with nurse who stated mother was at bedside but is not now; I asked the nurse to call the pharmacy when patients mother is back in room to confirm med rec.
[2024-12-03] MEDS: Aspirin Enteric Coated 325 MG TABLET.DR PO (11:40)
[2024-12-03] MEDS: ondansetron HCL 4 MG/2 ML VIAL IVPUSH (11:40)
--- NOTE | 2024-12-03 11:40 | ECG_ITS ---
Test Reason : posterior ekg Blood Pressure : */* mmHG Vent. Rate : 107 BPM Atrial Rate : 107 BPM P-R Int : 128 ms QRS Dur : 90 ms QT Int : 348 ms P-R-T Axes : * 195 126 degrees QTcB Int : 464 ms Limb leads reversal Sinus tachycardia Right superior axis deviation Right ventricular hypertrophy with repolarization abnormality Septal infarct (cited on or before 03-Dec-2024) Abnormal ECG When compared with ECG of 03-Dec-2024 11:32, QRS axis Shifted left Serial changes of Septal infarct Present Referred By: Gauri Oro Electronically Signed By: Serge Marroquin
--- NOTE | 2024-12-03 12:00 | PC.NURSE ---
Pt diaphoretic and vomiting in room; POC BG 167; pt reports MS CP 02/24; denies SOB; EKG and posterior EKG completed; pt medicated per orders; pt reports feeling improved after tx; vss; SR at this time; will cont to monitor/tx per orders
[2024-12-03] MEDS: Morphine Sulfate 2 MG/ML CARTRIDGE IVPUSH (12:10)
--- NOTE | 2024-12-03 12:10 | PM.CNCAR ---
History of Present Illness History of Present Illness Date of Service: 12/03/24 Chief complaint: PNA, +troponin Narrative: [age] year gentleman with background history of asthma, seizures and takotsubo cardiomyopathy in 2022 presenting with fevers, seizure and pneumonia. He has mildly elevated troponin levels. Previously he had echocardiography in 2022 when he presented very similarly and was noticed to have takotsubo cardiomyopathy mid LV variant. He is now presenting similarly with a seizure with preceding fevers due to infection. He said his asthma was also out of control. He is complaining of some chest pain which is somewhat reproducible but definitely pleuritic in nature and it gets worse with deep breathing and coughing. It is on the left side of the chest with the pneumonia is. [facility] Past Medical History Medical History Uvulitis Claustrophobia Takotsubo cardiomyopathy Schatzki's ring Gastritis Sleep apnea Diabetes Gastroparesis Migraine headache with aura Enlarged liver Postoperative hypothyroidism Thyroid cancer Vitamin D deficiency Multinodular thyroid Seizures ABPA (allergic bronchopulmonary aspergillosis) Seizures Asthma Family History Family History Maternal Grandmother Emphysema, unspecified Father Diabetes Mother No problems noted. Paternal Grandfather Liver cancer Colon cancer Surgical History Surgical History S/P total thyroidectomy History of esophagogastroduodenoscopy (EGD) S/P removal of thyroid nodule History of cholecystectomy Social History Social History Household Members: Family Housing: Apartment Are you a primary primary care provider to a significant other at home: No Do you presently have visiting nurse or other home services: No Alcohol intake: never Comment: has poor balance Patient Tobacco Use Status: Never used Tobacco Smoked in Last 30 Days: No e-Cigarette/Vaping Use: Never Used Second Hand Smoke Exposure: No Use of substances other than those prescribed or required for medical reasons: No Substance Use Type: Marijuana Advance Directives: Yes Advance Directives Information Provided: No Advance Directives on File: No Advance Directives Date on File: 05/20/23 Nutrition Risks: No Nutritional Risk service: No Current occupational status: disabled Current occupation: rt handed Cognitive needs: No Hearing needs: No Vision needs: No Meds Allergies Allergy/AdvReac Type Severity Reaction Status Date / Time cat dander [CATS] Allergy Mild GENERALIZED Verified 12/03/24 06:05 ALLERGY SYMPTOMS dog dander [DOGS] Allergy Mild GENERALIZED Verified 12/03/24 06:05 ALLERGY SYMPTOMS tree and shrub pollen [TREE] Allergy Mild GENERALIZED Verified 12/03/24 06:05 ALLERGY SYMPTOMS FROM PINE TREES Home Medications ?Medication ?Instructions ?Recorded ?Confirmed ?Last Taken ?Type clobazam 10 mg tablet 5 mg PO BID 12/11/23 12/03/24 12/02/24 History hydroxyzine HCl 25 mg tablet 25 mg PO BEDTIME PRN Anxiety 06/11/24 12/03/24 Unknown History lacosamide 100 mg tablet 100 mg PO BID 06/18/24 12/03/24 12/02/24 History levothyroxine 200 mcg tablet 200 mcg PO DAILY@0600 12/03/24 12/03/24 12/02/24 History (Synthroid) levothyroxine 25 mcg tablet 12.5 mcg PO DAILY@0600 12/03/24 12/03/24 12/02/24 History (Synthroid) lisinopril 10 mg tablet 10 mg PO DAILY 12/03/24 12/03/24 12/02/24 History metformin 500 mg tablet,extended 500 mg PO BEDTIME 12/03/24 12/03/24 12/02/24 History release 24 hr oxcarbazepine 600 mg tablet 600 mg PO BID 12/03/24 12/03/24 12/02/24 History sertraline 100 mg tablet 100 mg PO BEDTIME 12/03/24 12/03/24 12/02/24 History sucralfate 1 gram tablet 1 g PO DAILY 12/03/24 12/03/24 12/02/24 History Physical Exam Vital Signs: Vital Signs: Last Vital Signs Temp 97.7 F 12/03/24 12:00 Pulse 97 12/03/24 12:00 Resp 18 12/03/24 12:00 BP 137/82 12/03/24 12:00 Pulse Ox 96 12/03/24 12:00 O2 Del Method Room Air 12/03/24 12:00 BMI result Body Mass Index 28.4 GENERAL APPEARANCE: in no acute distress, pleasant. NECK: no carotid bruit, no jugular venous distention. SKIN: no suspicious lesions, warm and dry. HEART: no murmurs, regular rate and rhythm. LUNGS: Bilateral expiratory wheezes. ABDOMEN: soft, nontender. EXTREMITIES: no edema. PERIPHERAL PULSES: equal. NEUROLOGIC: No gross deficits, AAO X 3 Objective Labs and Meds 12/03/24 06:58 12/03/24 06:44 Lab results: Laboratory Results - last 24 hr 12/03/24 12/03/24 12/03/24 06:44 06:58 07:37 WBC 15.9 H RBC 5.50 Hgb 16.0 Hct 44.6 MCV 81.1 MCH 29.1 MCHC 35.9 RDW 13.3 Plt Count 320 D MPV 8.1 L Immature Gran % (Auto) 0.9 H Neut % (Auto) 79.3 H Lymph % (Auto) 12.[address] [place] % (Auto) 5.5 Eos % (Auto) 1.3 Baso % (Auto) 0.4 Lymph # (Auto) 2.0 [place] # (Auto) 0.9 Eos # (Auto) 0.2 Baso # (Auto) 0.1 Abs Immat Gran (auto) 0.15 H Absolute Neuts (auto) 12.6 H Absolute Nucleated RBC 0.000 Nucleated RBC % (auto) 0.0 VBG pH VBG pCO2 VBG pO2 VBG HCO3 VBG O2 Saturation VBG Base Excess Sodium 125 L Potassium 4.5 Chloride 99 Carbon Dioxide 11 L Anion Gap 20 BUN 9 Creatinine 0.80 Estim Creat Clear Calc 111.8 Estimated GFR > 60 POC Glucose Random Glucose 190 H Lactic Acid 3.5 H* Lactic Acid F/U @ 2Hr Calcium 9.2 Magnesium Total Bilirubin 0.2 AST 39 H ALT 41 H Alkaline Phosphatase 104 Total Creatine Kinase 154 Troponin I High Sens 15.6 D Total Protein 7.3 Albumin 4.1 Lipase Urine Color Urine Appearance Urine pH Ur Specific [place] Urine Protein Urine Glucose (UA) Urine Ketones Urine Blood Urine Nitrite Ur Leukocyte Esterase Urine RBC Urine WBC Ur Squamous Epith Cells Urine Bacteria Hyaline Casts Urine Opiates Screen Ur Buprenorphine Scrn Ur Oxycodone Screen Urine Methadone Screen Urine Fentanyl Screen Ur Barbiturates Screen Ur Phencyclidine Scrn Ur Amphetamines Screen U Benzodiazepines Scrn Urine Cocaine Screen U Marijuana (THC) Screen 12/03/24 12/03/24 12/03/24 07:42 08:15 10:10 WBC RBC Hgb Hct MCV MCH MCHC RDW Plt Count MPV Immature Gran % (Auto) Neut % (Auto) Lymph % (Auto) [place] % (Auto) Eos % (Auto) Baso % (Auto) Lymph # (Auto) [place] # (Auto) Eos # (Auto) Baso # (Auto) Abs Immat Gran (auto) Absolute Neuts (auto) Absolute Nucleated RBC Nucleated RBC % (auto) VBG pH 7.37 VBG pCO2 29 VBG pO2 43 VBG HCO3 17 L VBG O2 Saturation 73.0 VBG Base Excess -6.1 Sodium Potassium Chloride Carbon Dioxide Anion Gap BUN Creatinine Estim Creat Clear Calc Estimated GFR POC Glucose Random Glucose Lactic Acid Lactic Acid F/U @ 2Hr Calcium Magnesium 1.8 Total Bilirubin AST ALT Alkaline Phosphatase Total Creatine Kinase Troponin I High Sens Total Protein Albumin Lipase 42 Urine Color Yellow Urine Appearance Clear Urine pH 6.5 Ur Specific [place] 1.015 Urine Protein 100 (2+) H Urine Glucose (UA) 250 H Urine Ketones Negative Urine Blood Negative Urine Nitrite Negative Ur Leukocyte Esterase Negative Urine RBC 0-2 Urine WBC 0-5 Ur Squamous Epith Cells 0-2 Urine Bacteria None Seen Hyaline Casts 0-2 Urine Opiates Screen Not Detected Ur Buprenorphine Scrn Not Detected Ur Oxycodone Screen Not Detected Urine Methadone Screen Not Detected Urine Fentanyl Screen Not Detected Ur Barbiturates Screen Not Detected Ur Phencyclidine Scrn Not Detected Ur Amphetamines Screen Not Detected U Benzodiazepines Scrn POSITIVE H Urine Cocaine Screen Not Detected U Marijuana (THC) Screen POSITIVE H 12/03/24 12/03/24 10:41 11:29 WBC RBC Hgb Hct MCV MCH MCHC RDW Plt Count MPV Immature Gran % (Auto) Neut % (Auto) Lymph % (Auto) [place] % (Auto) Eos % (Auto) Baso % (Auto) Lymph # (Auto) [place] # (Auto) Eos # (Auto) Baso # (Auto) Abs Immat Gran (auto) Absolute Neuts (auto) Absolute Nucleated RBC Nucleated RBC % (auto) VBG pH VBG pCO2 VBG pO2 VBG HCO3 VBG O2 Saturation VBG Base Excess Sodium Potassium Chloride Carbon Dioxide Anion Gap BUN Creatinine Estim Creat Clear Calc Estimated GFR POC Glucose 163 H Random Glucose Lactic Acid Lactic Acid F/U @ 2Hr 2.7 H* Calcium Magnesium Total Bilirubin AST ALT Alkaline Phosphatase Total Creatine Kinase Troponin I High Sens 267.5 H* D Total Protein Albumin Lipase Urine Color Urine Appearance Urine pH Ur Specific [place] Urine Protein Urine Glucose (UA) Urine Ketones Urine Blood Urine Nitrite Ur Leukocyte Esterase Urine RBC Urine WBC Ur Squamous Epith Cells Urine Bacteria Hyaline Casts Urine Opiates Screen Ur Buprenorphine Scrn Ur Oxycodone Screen Urine Methadone Screen Urine Fentanyl Screen Ur Barbiturates Screen Ur Phencyclidine Scrn Ur Amphetamines Screen U Benzodiazepines Scrn Urine Cocaine Screen U Marijuana (THC) Screen Imaging Radiologist's impression: Impressions Cervical Spine CT 12/03/24 07:03 IMPRESSION: Multilevel cervical spondylosis without acute fracture or trauma-related listhesis. Fleischner guidelines were followed. Electronically signed by: Jose Hudson MD 12/03/2024 09:49 AM EDT RP Head CT 12/03/24 07:03 IMPRESSION: No acute fracture, bony calvarium. No acute intracranial hemorrhage. Stable appearance of the brain. Electronically signed by: Jose Hudson MD 12/03/2024 09:39 AM EDT RP Chest CT 12/03/24 07:09 IMPRESSION: 1. No evidence of traumatic injury to the chest, abdomen, or pelvis. Please note that evaluation for solid organ injury is limited by lack of intravenous contrast material. 2. Bronchial wall thickening and mucous plugging in the left lower lobe with associated groundglass opacity which may represent early pneumonia. 3. Large amount of stool throughout the colon. Electronically signed by: Ramses Kerr MD 12/03/2024 09:22 AM EDT RP Abdomen/Pelvis CT 12/03/24 08:25 IMPRESSION: 1. No evidence of traumatic injury to the chest, abdomen, or pelvis. Please note that evaluation for solid organ injury is limited by lack of intravenous contrast material. 2. Bronchial wall thickening and mucous plugging in the left lower lobe with associated groundglass opacity which may represent early pneumonia. 3. Large amount of stool throughout the colon. Electronically signed by: Ramses Kerr MD 12/03/2024 09:22 AM EDT RP Assessment and Plan (1) Elevated troponin: Status: Acute (2) Asthma exacerbation: Status: Acute Plan Pleasant 44 year gentleman who is presenting with fevers, asthma exacerbation and seizure and has been diagnosed with pneumonia and elevated troponin levels. EKGs has subtle T-wave changes. He has known history of takotsubo mid left ventricle involvement in the past. Noncardiac chest pain currently. It is possible that he may have recurrent takotsubo cardiomyopathy. Overall he is stable and improving with respiratory care. We will review the echocardiogram and give further recommendations. Currently recommend no heparin drip. Thank you for allowing me to participate in the care of your patient. Please feel free to contact me if you have any questions. Procedures Date of Service Date of Service: 12/03/24
[2024-12-03 12:49] LABS: Reflex Lactate? 2 Y
--- NOTE | 2024-12-03 13:00 | CA_ITS ---
Transthoracic Echocardiogram Patient (Last, First, Middle): Terrance Carranza R Gender: Male Date of : 1980 Age: 44 Procedure Date: 12/03/2024 Procedure Type: Transthoracic Echocardiogram Location: ER Height: 165.1 cm Weight: 77.11 kg BSA: 1.85 m2 Heart Rate: bpm BP: 137 / 82 mmHg Risk And Compliance Analytics Director: TO Referring MD: Gauri MORLEY Symptoms: per Cards, check wall motion Study Quality: Fair, contrast ECG Rhythm: Sinus Conclusions: - Normal left ventricular cavity size. There is normal left ventricular wall thickness. The left ventricular systolic function is borderline reduced. The visually estimated ejection fraction is between 45-50%. - The entire septum, the basal inferior, and mid inferior segments are akinetic. Findings Procedure Information Contrast agent, definity, is being given per protocol without apparent complications. Left Ventricle Normal left ventricular cavity size. There is normal left ventricular wall thickness. The left ventricular systolic function is borderline reduced. The visually estimated ejection fraction is between 45-50%. Diastolic function is indeterminate on the basis of available data. Wall Motion Rest Echo Findings The entire septum, the basal inferior, and mid inferior segments are akinetic. Right Ventricle Normal right ventricular cavity size and systolic function. Atria The left atrium is normal in size. The right atrium is normal in size. Aortic Valve Normal aortic valve structure and function. There is no aortic valve stenosis. There is no aortic valve regurgitation. Mitral Valve Normal mitral valve structure and function. There is trace mitral valve regurgitation. There is no mitral valve stenosis. Pulmonic Valve The pulmonic valve is likely normal. Tricuspid Valve Normal tricuspid valve structure. There is no tricuspid valve regurgitation. Tricuspid regurgitation envelope is inadequate for calculation of right ventricular systolic pressure. Normal right atrial pressure. Great Vessels All visible segments of the aorta are normal in size. Venous The inferior vena cava is normal in size and collapses greater than 50% with inspiration. Pericardium/Pleural There is no evidence of pericardial effusion. Prior Study Comparison Changes noted compared to prior study dated: 05/21/2023. EF 45 to 50%. RWMA as described. Measurements 2D Linear Measurements IVSd: 1.13 0.6-0.9/0.6-1.0 cm LVIDd: 4.26 3.9-5.3/4.2-5.9 cm LVIDd Index: 2.30 2.4-3.2/2.2-3.1 cm/m2 LVIDs: 3.06 2.0-3.6 cm LVPWd: 0.67 0.7-1.1 cm LV Mass: 150.93 67-162/88-224 g LV Mass Index: 81.58 43-95/49-115 g/m2 LVOT Diam: 2.20 3.0+(-)1.3 cm 2D Systolic Function EF 4C: 51.00 >55% EF 2C: 49.30 >55% EF BiP: 50.70 >55% Mitral Valve MV Pk E: 0.51 MV PK A: 0.95 MV Decel Time: 111.00 E/A: 0.50 E'Lateral: 7.40 E'Medial: 5.87 E/E' Med: 8.80 E/E' Lat: 6.90 PHT: 33.00 MVA PHT: 6.67 Decel [place]: 4.63 Aortic Valve AoV Pk Omar: 1.23 AoV Mn Omar: 0.88 AoV VTI: 0.23 AoV Pk Grad: 6.00 Aov Mn Grad: 3.00 MARCO Cont.VTI: 2.78 LVOT LVOT Pk Omar: 0.95 LVOT Mn Omar: 0.63 LVOT VTI: 0.17 LVOT Pk Grad: 4.00 LVOT Mn Grad: 2.00 LVOT Diam: 2.20 LVOT Area: 3.80 Diastolic Function MV Pk E: 0.51 MV Pk A: 0.95 E/A: 0.50 E'Medial: 5.87 E/E' Med: 8.80 E' Laterial: 7.40 E/E' Lat: 6.90 Right Ventricle TAPSE (mm): 23.50 TVS' Omar: 13.80 Tricuspid Valve RA Press: 3.00 Great Vessels Aorta Sinus of Valsalva: 3.22 2.0-3.5 cm Ao Asc: 3.10 2.1-3.4 cm Updated in Other Vendor System with Status of Final Serge Marroquin MD electronically signed on 12/03/2024 4:03:42 PM with status of Final
--- NOTE | 2024-12-03 13:47 | PHA.MEDREC ---
Addendum entered by Lori Watkins [facility] 12/03/24 14:29: Reviewed Patient picks up brand name Synthroid but confirmed he is not allergic, he is able to take levothyroxine. Original Note: Pharmacy Consult ? Medication Reconciliation Pharmacy has completed the medication reconciliation. Spoke with patient mother over the phone and she was able to confirm most of the patients medications from RX bottles she found. She found multiple bottles of Lisinopril 10mg tabs and looking at claims that has not been filled since 02/2024 for 90 days. She did not know if the patient was still taking Hydroxyzine as needed, Metformin 500mg Er, or how the patient takes his Oxycarbazipine medication. I spoke with the patient and he was able to confirm the medications. He was able to confirm he is taking the Hydroxyzine 25mg tab as needed for anxiety, Metformin 500mg ER once a day at bedtime. He confirmed his Oxycarbazapine and confirmed he takes a 300mg tab and 600mg tab together for a TDD of 900mg; the patient stated he ran out of the 600mg tabs last week and started taking 3 300mg tabs until he is able to get the 600mg tabs again. He also confirmed he is still taking the Lisinopril 10mg tab once at bedtime and states he has an over abundance at home he is still taking. He also confirmed he is taking the Sucralfate 1gm tablet once a day. He confirmed his Dupixent Pen once every 2 weeks and confirmed he last took that 11/27. He confirmed he took all his medications yesterday.
[2024-12-03 14:08] LABS: ~Lactic Acid-LAB USE ONLY 1.9 mmol/L (0.5-2.0)
[2024-12-03 14:24] LABS: Troponin-I High Sensitivity 403.5 ng/L (<3.5-35.0)
[2024-12-03 14:28] LABS: Osmolality, Serum 273 mosm/kg (281-305)
[2024-12-03] MEDS: Enoxaparin Sodium 40 MG/0.4 ML SYRINGE SUBCUT (14:53)
[2024-12-03] MEDS: Nitroglycerin 0.4 MG TAB.SUBL SUBLINGUAL (14:53)
[2024-12-03] MEDS: Albuterol/Iprat 2.5/0.5MG 3 ML AMPUL.NEB INHALE (15:47)
[2024-12-03 15:48] LABS: Potassium Urine Random 23.9 mmol/L
[2024-12-03 15:57] LABS: Osmolality Urine 380 mosm/kg (373-1093)
[2024-12-03 16:42] LABS: Anion Gap 14 (12-20); Blood Urea Nitrogen 6 mg/dL (9-16); Calcium 9.4 mg/dL (8.4-10.2); Carbon Dioxide 19 mmol/L (22-29); Chloride 101 mmol/L (96-108); Creatinine Clr Calc Pharmacy 154.2; Estimated Glomerular Filt Rate > 60; Glucose Random 119 mg/dL (60-115); Potassium 4.8 mmol/L (3.3-5.1); Sodium 129 mmol/L (135-145)
[2024-12-03] MEDS: 0.9 % Sodium Chloride Flush 3 ML SYRINGE IVFLUSH (18:07)
[2024-12-03 19:10] LABS: Influenza A PCR NEGATIVE (Negative); Influenza B PCR NEGATIVE (Negative); Resp Syncy Virus RNA Qual PCR NEGATIVE (Negative); SARS COV2 PCR INHOUSE NEGATIVE (Negative)
[2024-12-03] MEDS: Enoxaparin Sodium 80 MG/0.8 ML SYRINGE SUBCUT (20:51)
[2024-12-03] MEDS: Sertraline HCL 100 MG TABLET PO (20:52)
[2024-12-03] MEDS: OXcarbazepine 300 MG TABLET 600 MG PO (20:52)
[2024-12-03] MEDS: cloBAZam 10 MG TABLET 5 MG PO (20:52)
[2024-12-03] MEDS: Melatonin 3 MG TABLET 6 MG PO (20:52)
[2024-12-03] MEDS: methylPREDNISolone Sod Succ 40 MG/ML VIAL IVPUSH (20:52)
[2024-12-03] MEDS: Montelukast Sodium 10 MG TABLET PO (20:52)
[2024-12-03] MEDS: carvediloL 3.125 MG TABLET PO (20:53)
[2024-12-03] MEDS: hydrOXYzine HCL 25 MG TABLET PO (22:37)
[2024-12-04 03:02] VITALS: BP 113/58; PULSE 70; RESP 20; TEMP 37.1; O2SAT 94
[2024-12-04] MEDS: Levothyroxine Sodium 200 MCG TABLET PO (05:53)
[2024-12-04] MEDS: Omeprazole 20 MG CAPSULE.DR PO (05:53)
[2024-12-04] MEDS: Levothyroxine Sodium 25 MCG TABLET 12.5 MCG PO (05:53)
[2024-12-04 06:56] LABS: Hematocrit 43.6 % (42.0-52.0); Hemoglobin 15.3 g/dl (14.0-18.0); Mean Corpuscular HGB Conc 35.1 g/dl (31.0-36.0); Mean Corpuscular Hemoglobin 28.2 pg (27.0-33.0); Mean Corpuscular Volume 80.3 fL (80.0-98.0); Mean Platelet Volume 8.4 fL (9.4-12.4); Platelet Count 378 X10*3/uL (160-400); Red Blood Count 5.43 X10*6/uL (4.60-5.80); Red Cell Distribution Width 13.7 % (11.0-16.0); White Blood Count 9.8 X10*3/uL (4.8-10.8)
[2024-12-04 07:06] LABS: Anion Gap 15 (12-20); Blood Urea Nitrogen 7 mg/dL (9-16); Calcium 9.3 mg/dL (8.4-10.2); Carbon Dioxide 20 mmol/L (22-29); Chloride 100 mmol/L (96-108); Creatinine Clr Calc Pharmacy 129.6; Estimated Glomerular Filt Rate > 60; Glucose Random 166 mg/dL (60-115); Potassium 4.3 mmol/L (3.3-5.1); Sodium 131 mmol/L (135-145)
[2024-12-04 07:17] VITALS: BP 140/83; PULSE 83; RESP 18; TEMP 36.7; O2SAT 95
[2024-12-04 07:21] LABS: Troponin-I High Sensitivity 150.5 ng/L (<3.5-35.0)
[2024-12-04 08:20] VITALS: BP 140/83
[2024-12-04] MEDS: OXcarbazepine 300 MG TABLET 600 MG PO (08:20)
[2024-12-04] MEDS: lisinopriL 10 MG TABLET PO (08:20)
[2024-12-04] MEDS: Cholecalciferol (Vitamin D3) 25 MCG TABLET 100 MCG PO (08:20)
[2024-12-04] MEDS: Lacosamide 100 MG TABLET PO (08:20)
[2024-12-04 08:21] VITALS: BP 140/83; PULSE 83
[2024-12-04] MEDS: OXcarbazepine 300 MG TABLET PO (08:21)
[2024-12-04] MEDS: Aspirin Enteric Coated 81 MG TABLET.DR PO (08:21)
[2024-12-04] MEDS: Sucralfate 1 GM TABLET PO (08:21)
[2024-12-04] MEDS: Theophylline Anhydrous ER 400 MG TAB.ER.24H 200 MG PO (08:21)
[2024-12-04] MEDS: 0.9 % Sodium Chloride Flush 3 ML SYRINGE IVFLUSH (08:21)
[2024-12-04] MEDS: carvediloL 3.125 MG TABLET PO (08:21)
[2024-12-04] MEDS: cloBAZam 10 MG TABLET 5 MG PO (08:21)
[2024-12-04] MEDS: Enoxaparin Sodium 80 MG/0.8 ML SYRINGE SUBCUT (08:22)
[2024-12-04] MEDS: methylPREDNISolone Sod Succ 40 MG/ML VIAL IVPUSH (08:22)
--- NOTE | 2024-12-04 09:15 | MHC.CM.PN ---
Pt to be transferred to [facility] for further treatment.
--- NOTE | 2024-12-04 11:15 | PM.NEUROCN ---
History of Present Illness Data of Consult Service Date: 12/04/24 Primary Care Provider: Saúl Maier PA-C HPI Reason for consult: Breakthrough seizure 44 years old man with chronic intractable epilepsy was brought to hospital after he had an episode that might have been seizure. He has longstanding history of epilepsy and failure with multiple antiepileptic medicines. His present regimen of clobazam, lacosamide, and oxcarbazepine has been working out. Details of the episode he had resulting in change in behavior was described in initial note. When I saw him he was back to baseline except stating that he had urinated for some reason. Review of Systems Review of Systems: No recent cold or flu-like illness or burning urination PMFSH Past Medical History Medical History Uvulitis Claustrophobia Takotsubo cardiomyopathy Schatzki's ring Gastritis Sleep apnea Diabetes Gastroparesis Migraine headache with aura Enlarged liver Postoperative hypothyroidism Thyroid cancer Vitamin D deficiency Multinodular thyroid Seizures ABPA (allergic bronchopulmonary aspergillosis) Seizures Asthma Family History Family History Maternal Grandmother Emphysema, unspecified Father Diabetes Mother No problems noted. Paternal Grandfather Liver cancer Colon cancer Surgical History Surgical History S/P total thyroidectomy History of esophagogastroduodenoscopy (EGD) S/P removal of thyroid nodule History of cholecystectomy Social History Social History Household Members: Family Housing: Apartment Are you a primary home health care social worker to a significant other at home: No Do you presently have visiting nurse or other home services: No Alcohol intake: never Comment: has poor balance Patient Tobacco Use Status: Never used Tobacco e-Cigarette/Vaping Use: Never Used Second Hand Smoke Exposure: No Substance Use Type: Marijuana Advance Directives Date on File: 05/20/23 service: No Current occupational status: disabled Current occupation: rt handed Cognitive needs: No Hearing needs: No Vision needs: No Meds Allergies Allergy/AdvReac Type Severity Reaction Status Date / Time cat dander [CATS] Allergy Mild GENERALIZED Verified 12/03/24 06:05 ALLERGY SYMPTOMS dog dander [DOGS] Allergy Mild GENERALIZED Verified 12/03/24 06:05 ALLERGY SYMPTOMS tree and shrub pollen [TREE] Allergy Mild GENERALIZED Verified 12/03/24 06:05 ALLERGY SYMPTOMS FROM PINE TREES Active Medications: Current Medications Acetaminophen (Acetaminophen 325 Mg Tablet) 650 mg PO Q6H PRN PRN Reason: Pain, Mild 1-3,fever,headache Albuterol/Ipratropium (Albuterol/Iprat 2.5/0.5mg 3 Ml Ampul.Neb) 3 ml INHALE RQ4H WHILE AWAKE PRN PRN Reason: Shortness of Breath/Wheezing Aspirin (Aspirin Enteric Coated 81 Mg Tablet.Dr) 81 mg PO DAILY [facility] Last Admin: 12/04/24 08:21 Dose: 81 mg Calcium Carbonate (Calcium Carbonate 750 Mg Tab.Chew) 750 mg PO Q4H PRN PRN Reason: Heartburn Carvedilol (Carvedilol 3.125 Mg Tablet) 3.125 mg PO BID [facility]; Protocol Last Admin: 12/04/24 08:21 Dose: 3.125 mg Ceftriaxone Sodium (Ceftriaxone Sodium 1 Gm Vial) 1 gm IVPUSH Q24H [facility] Clobazam (Clobazam 10 Mg Tablet) 5 mg PO BID [facility] Last Admin: 12/04/24 08:21 Dose: 5 mg Enoxaparin Sodium (Enoxaparin Sodium 80 Mg/0.8 Ml Syringe) 80 mg 1 mg/kg (80 mg) SUBCUT Q12H [facility] Last Admin: 12/04/24 08:22 Dose: 80 mg Hydroxyzine HCl (Hydroxyzine Hcl 25 Mg Tablet) 25 mg PO BEDTIME PRN PRN Reason: Anxiety Last Admin: 12/03/24 22:37 Dose: 25 mg Azithromycin 500 mg/ Sodium (Chloride) 250 mls @ 125 mls/hr IV Q24H [facility] Lacosamide (Lacosamide 100 Mg Tablet) 100 mg PO BID [facility] Last Admin: 12/04/24 08:20 Dose: 100 mg Levothyroxine Sodium (Levothyroxine Sodium 25 Mcg Tablet) 12.5 mcg PO DAILY@0600 [facility] Last Admin: 12/04/24 05:53 Dose: 12.5 mcg Levothyroxine Sodium (Levothyroxine Sodium 200 Mcg Tablet) 200 mcg PO DAILY@0600 [facility] Last Admin: 12/04/24 05:53 Dose: 200 mcg Lisinopril (Lisinopril 10 Mg Tablet) 10 mg PO DAILY [facility]; Protocol Last Admin: 12/04/24 08:20 Dose: 10 mg Magnesium Hydroxide (Milk Of Magnesia 30 Ml Oral.Susp) 30 ml PO DAILY PRN PRN Reason: Constipation Melatonin (Melatonin 3 Mg Tablet) 6 mg PO BEDTIME PRN PRN Reason: Insomnia Last Admin: 12/03/24 20:52 Dose: 6 mg Methylprednisolone Sodium Succinate (Methylprednisolone Sod Succ 40 Mg/Ml Vial) 40 mg IVPUSH Q12H [facility] Last Admin: 12/04/24 08:22 Dose: 40 mg Montelukast Sodium (Montelukast Sodium 10 Mg Tablet) 10 mg PO BEDTIME [facility] Last Admin: 12/03/24 20:52 Dose: 10 mg Nitroglycerin (Nitroglycerin 0.4 Mg Tab.Subl) 0.4 mg SUBLINGUAL Q5MX3 PRN PRN Reason: Chest Pain Last Admin: 12/03/24 14:53 Dose: 1 tab Non-Formulary Medication (Dupilumab [Dupixent Pen]) 300 mg SUBCUT Q14D [facility] Omeprazole (Omeprazole 20 Mg Capsule.Dr) 20 mg PO DAILY@0630 [facility] Last Admin: 12/04/24 05:53 Dose: 20 mg Ondansetron HCl (Ondansetron Hcl 4 Mg/2 Ml Vial) 4 mg IVPUSH Q8H PRN PRN Reason: Nausea and Vomiting Oxcarbazepine (Oxcarbazepine 300 Mg Tablet) 600 mg PO BID [facility] Last Admin: 12/04/24 08:20 Dose: 600 mg Oxcarbazepine (Oxcarbazepine 300 Mg Tablet) 300 mg PO BID [facility] Last Admin: 12/04/24 08:21 Dose: 300 mg Sertraline HCl (Sertraline Hcl 100 Mg Tablet) 100 mg PO BEDTIME [facility] Last Admin: 12/03/24 20:52 Dose: 100 mg Sodium Chloride (0.9 % Sodium Chloride Flush 3 Ml Syringe) 3 ml IVFLUSH QSHIFT [facility] Last Admin: 12/04/24 08:21 Dose: 3 ml Sucralfate (Sucralfate 1 Gm Tablet) 1 gm PO DAILY [facility] Last Admin: 12/04/24 08:21 Dose: 1 gm Theophylline (Theophylline Anhydrous Er 400 Mg Tab.Er.24h) 200 mg PO DAILY [facility] Last Admin: 12/04/24 08:21 Dose: 200 mg Vitamin D (Cholecalciferol (Vitamin D3) 25 Mcg Tablet) 100 mcg PO DAILY [facility] Last Admin: 12/04/24 08:20 Dose: 100 mcg Home Medications ?Medication ?Instructions ?Recorded ?Confirmed ?Last Taken ?Type clobazam 10 mg tablet 5 mg PO BID 12/11/23 12/03/24 12/02/24 History hydroxyzine HCl 25 mg tablet 25 mg PO BEDTIME PRN Anxiety 06/11/24 12/03/24 Unknown History lacosamide 100 mg tablet 100 mg PO BID 06/18/24 12/03/24 12/02/24 History levothyroxine 200 mcg tablet 200 mcg PO DAILY@0600 12/03/24 12/03/24 12/02/24 History (Synthroid) levothyroxine 25 mcg tablet 12.5 mcg PO DAILY@0600 12/03/24 12/03/24 12/02/24 History (Synthroid) lisinopril 10 mg tablet 10 mg PO DAILY 12/03/24 12/03/24 12/02/24 History metformin 500 mg tablet,extended 500 mg PO BEDTIME 12/03/24 12/03/24 12/02/24 History release 24 hr oxcarbazepine 600 mg tablet 600 mg PO BID 12/03/24 12/03/24 12/02/24 History sertraline 100 mg tablet 100 mg PO BEDTIME 12/03/24 12/03/24 12/02/24 History sucralfate 1 gram tablet 1 g PO DAILY 12/03/24 12/03/24 12/02/24 History Physical Exam Vital Signs: Vital Signs: Last Vital Signs Temp 98.1 F 12/04/24 07:17 Pulse 83 12/04/24 08:21 Resp 18 12/04/24 07:17 BP 140/83 H 12/04/24 08:21 Pulse Ox 95 12/04/24 07:17 O2 Del Method Room Air 12/04/24 07:17 BMI result Body Mass Index 28.4 Neuro: Other: He is alert and awake with normal spontaneity of speech fluency comprehension and affect. Face is symmetrical. Visual wright are full. There is no focal weakness. Speech is normal. Results Labs 12/04/24 06:29 12/04/24 06:29 Labs: Short CBC 12/04/24 Range/Units 06:29 WBC 9.8 (4.8-10.8) X10*3/uL Hgb 15.3 (14.0-18.0) g/dl Hct 43.6 (42.0-52.0) % Plt Count 378 (160-400) X10*3/uL BMP 12/03/24 12/04/24 16:13 06:29 Sodium 129 L 131 L Potassium 4.8 4.3 Chloride 101 100 Carbon Dioxide 19 L 20 L BUN 6 L 7 L Creatinine 0.58 0.69 [address]cium [address] did not reveal any significant abnormality. His previous EEG at [facility] had revealed left hemispheric temporal and frontal discharges. Assessment and Plan (1) Breakthrough seizure: Status: Acute 44 years old man with chronic intractable epilepsy comprised probably of complex partial secondarily generalized seizures with a EEG revealing left temporal and frontal epileptic discharges and brain imaging not revealing any epileptic focus. He has been taking clobazam 5 mg twice a day, lacosamide 100 mg twice a day, oxcarbazepine 300 mg twice a day and oxcarbazepine 600 mg twice a day. With this regimen, he was relatively stable and my recommendation is to continue same regimen. He should be advised to not miss any doses. Procedures Date of Service Date of Service: 12/04/24
--- NOTE | 2024-12-04 11:16 | PM.PNCARD ---
Subjective Subjective Date of Service: 12/04/24 Interval history: Seen examined at bedside. Improving from a CV point of view. Echocardiography has shown basal to mid inferior as well as septal akinesis. Changes are not consistent with takotsubo cardiomyopathy which was seen previously. Physical Exam Vital Signs: Last Vital Signs Temp 98.1 F 12/04/24 07:17 Pulse 83 12/04/24 08:21 Resp 18 12/04/24 07:17 BP 140/83 H 12/04/24 08:21 Pulse Ox 95 12/04/24 07:17 O2 Del Method Room Air 12/04/24 07:17 BMI result Body Mass Index 28.4 GENERAL APPEARANCE: in no acute distress, pleasant. NECK: no carotid bruit, no jugular venous distention. SKIN: no suspicious lesions, warm and dry. HEART: no murmurs, regular rate and rhythm. LUNGS: Mild wheezes bilaterally. ABDOMEN: soft, nontender. EXTREMITIES: no edema. PERIPHERAL PULSES: equal. NEUROLOGIC: No gross deficits, AAO X 3 Objective Labs and Meds 12/04/24 06:29 12/04/24 06:29 Lab results: Laboratory Results - last 24 hr 12/03/24 12/03/24 12/03/24 10:10 10:41 11:29 WBC RBC Hgb Hct MCV MCH MCHC RDW Plt Count MPV Absolute Nucleated RBC Nucleated RBC % (auto) Sodium Potassium Chloride Carbon Dioxide Anion Gap BUN Creatinine Estim Creat Clear Calc Estimated GFR POC Glucose 163 H Random Glucose Osmolality Lactic Acid F/U @ 2Hr 2.7 H* Lactic Acid F/U @ 4Hr Calcium Troponin I High Sens 267.5 H* D Urine Osmolality 380 Ur Random Sodium 59.0 Ur Random Potassium 23.9 Ur Random Chloride 53.0 Influenza Type A (PCR) Influenza Type B (PCR) RSV RNA Qual (PCR) SARS-CoV-2 RNA (RT-PCR) 12/03/24 12/03/24 12/03/24 13:46 16:13 18:16 WBC RBC Hgb Hct MCV MCH MCHC RDW Plt Count MPV Absolute Nucleated RBC Nucleated RBC % (auto) Sodium 129 L Potassium 4.8 Chloride 101 Carbon Dioxide 19 L Anion Gap 14 BUN 6 L Creatinine 0.58 Estim Creat Clear Calc 154.2 Estimated GFR > 60 POC Glucose Random Glucose 119 H Osmolality 273 L Lactic Acid F/U @ 2Hr Lactic Acid F/U @ 4Hr 1.9 Calcium 9.4 Troponin I High Sens 403.5 H* D Urine Osmolality Ur Random Sodium Ur Random Potassium Ur Random Chloride Influenza Type A (PCR) NEGATIVE Influenza Type B (PCR) NEGATIVE RSV RNA Qual (PCR) NEGATIVE SARS-CoV-2 RNA (RT-PCR) NEGATIVE 12/04/24 06:29 WBC 9.8 RBC 5.43 Hgb 15.3 Hct 43.6 MCV 80.3 MCH 28.2 MCHC 35.1 RDW 13.7 Plt Count 378 MPV 8.4 L Absolute Nucleated RBC 0.000 Nucleated RBC % (auto) 0.0 Sodium 131 L Potassium 4.3 Chloride 100 Carbon Dioxide 20 L Anion Gap 15 BUN 7 L Creatinine 0.69 Estim Creat Clear Calc 129.6 Estimated GFR > 60 POC Glucose Random Glucose 166 H Osmolality Lactic Acid F/U @ 2Hr Lactic Acid F/U @ 4Hr Calcium 9.3 Troponin I High Sens 150.5 H* D Urine Osmolality Ur Random Sodium Ur Random Potassium Ur Random Chloride Influenza Type A (PCR) Influenza Type B (PCR) RSV RNA Qual (PCR) SARS-CoV-2 RNA (RT-PCR) Progress Note: A&P Assessment and plan (1) NSTEMI (non-ST elevated myocardial infarction): Status: Acute (2) Cardiomyopathy: Status: Acute Assessment and Plan: 44 gentleman who previously was thought to have takotsubo cardiomyopathy in 2022 when he presented with pneumonia and asthma exacerbation. He is presenting again with pneumonia, asthma exacerbation and seizure. ECHO is showing basal to mid inferior wall akinesis and the entire septum is akinetic. Changes are not consistent with a classic takotsubo. He was started on Lovenox and was treated as NSTEMI. He is improving and we are transferring him to [facility] for potential diagnostic cardiac catheterization today. Thank you for allowing me to participate in the care of your patient. Please feel free to contact me if you have any questions. Time Spent With Patient Time: Total time managing care of this patient today ____ minutes. Progress Note: Quality Stroke Does the patient have a stroke diagnosis?: No Procedures Date of Service Date of Service: 12/04/24
[2024-12-04] MEDS: cefTRIAXone sodium 1 GM VIAL IVPUSH (11:17)
[2024-12-04] MEDS: Azithromycin 500 MG in 0.9 % Sodium Chloride 250 ML 125 MG IV (11:20)
[2024-12-04 11:34] VITALS: BP 140/75; PULSE 74; RESP 18; TEMP 36.4; O2SAT 93
--- NOTE | 2024-12-04 11:49 | P.DS_ITS ---
DS: Providers Provider Date of Service: 12/04/24 Date of admission: 12/03/24 12:30 Date of discharge: 12/04/24 Primary care physician: Saúl Maier PA-C Consults: 12/03/24 12:06 Consult to Cardiology Stat Consulting Provider: [facility] Reason for consultation: elevated trops 12/03/24 12:30 Consult to Neurology Routine Consulting Provider: [facility] Reason for consultation: Breakthrough seizure, follows with Dr. Powers DS: Diagnosis Discharge Diagnosis (1) Breakthrough seizure: Status: Acute (2) Elevated troponin: Status: Acute (3) Acute hyponatremia: Status: Acute (4) Asthma exacerbation: Status: Acute (5) Pneumonia: Status: Acute (6) NSTEMI (non-ST elevated myocardial infarction): Status: Acute DS: Summary Hospital Course Hospital Course: Admission note HPI Pt is a 52-year-old female with a PMH significant for?endocarditis, diskitis, HLD, polysubstance use disorder on methadone, PTSD, and schizoaffective disorder who presents to the ED with?chest pain, nausea, vomiting since early this morning. Pt states symptoms began late last night and woke her from sleep. Pain is described as both an intermittent substernal burning sensation as well as a constant pressure, both of which radiate to the left side of her neck and down her left arm which also experiences numbness. Reports a long hx of bad heartburn; says similar symptoms happen all the time . Pt also complains of fever/chills during the episodes, as well as abdominal pain secondary to vomiting. Chronic SOB and mild, intermittent nonproductive cough at baseline. In the ED pt was tachypneic up 24 and initially hypertensive at 167/89. Labs were significant for initial troponin 104.1 with repeat 1151.4, otherwise grossly unremarkable and around baseline for pt. No leukocytosis. Stable H&H. No significant electrolyte abnormalities. Renal function WNL. AST mildly elevated at 35, otherwise hepatic function WNL. UA negative for UTI. CXR showed borderline cardiomegaly with no acute cardiopulmonary abnormality. EKG demonstrated normal sinus rhythm with ST depressions in inferolateral leads. Repeat EKG with improvement to ST depressions. Pt was treated with famotidine, Tylenol, Maalox, aspirin, Ativan, IVF, nitroglycerin, and started on heparin drip. Pt will be admitted to the hospital for treatment and further evaluation of acute NSTEMI requiring heparin drip. Hospital course NSTEMI, patient Trop increased from 100 to >400 before trending down again to 150. reported chest pain. Echo showed abnormality in wall motion. Cardiology recommended starting full dose Lovenox along his ASA and Plavix. To be transferred to [facility] for cardiac angiogram. Asthma exacerbation started on IV Steroids and nebulizer treatment. Pneumonia as showed on CT imaging covered with Azithromycin and Ceftriaxone. reported breakthrough seizure concern on presentation. no recurrence. on seizure precautions and resumed his home medications. Time Attestation Discharge Coordination Time (in mins): 42 Quality: Safe Use of Opioids Does Pt have an Active Cancer Diagnosis on the Problem List?: No Quality: Stroke Does the patient have a stroke diagnosis?: No Physical Exam Vital Signs: Vital Signs: Last Vital Signs Temp 97.6 F 12/04/24 11:34 Pulse 74 12/04/24 11:34 Resp 18 12/04/24 11:34 BP 140/75 H 12/04/24 11:34 Pulse Ox 93 12/04/24 11:34 O2 Del Method Room Air 12/04/24 11:34 BMI result Body Mass Index 28.4 Const: Other: Constitutional : Awake, interactive, not in distress Neck : Normal inspection, Supple Cardiovascular : RRR, no JVP, no lower extremity edema Respiratory : good bilateral air entry, no crackles, wheezes or rhonchi Gastrointestinal: soft, lax, Normal bowel sounds, Non tender Skin : Warm, Dry Neurological : Alert & oriented x3, No focal deficit DS: Data Data Completed and Pending Labs on day of discharge: Laboratory Results - last 24 hr 12/03/24 12/03/24 12/03/24 10:10 13:46 16:13 WBC RBC Hgb Hct MCV MCH MCHC RDW Plt Count MPV Absolute Nucleated RBC Nucleated RBC % (auto) Sodium 129 L Potassium 4.8 Chloride 101 Carbon Dioxide 19 L Anion Gap 14 BUN 6 L Creatinine 0.58 Estim Creat Clear Calc 154.2 Estimated GFR > 60 Random Glucose 119 H Osmolality 273 L Lactic Acid F/U @ 4Hr 1.9 Calcium 9.4 Troponin I High Sens 403.5 H* D Urine Osmolality 380 Ur Random Sodium 59.0 Ur Random Potassium 23.9 Ur Random Chloride 53.0 Influenza Type A (PCR) Influenza Type B (PCR) RSV RNA Qual (PCR) SARS-CoV-2 RNA (RT-PCR) 12/03/24 12/04/24 18:16 06:29 WBC 9.8 RBC 5.43 Hgb 15.3 Hct 43.6 MCV 80.3 MCH 28.2 MCHC 35.1 RDW 13.7 Plt Count 378 MPV 8.4 L Absolute Nucleated RBC 0.000 Nucleated RBC % (auto) 0.0 Sodium 131 L Potassium 4.3 Chloride 100 Carbon Dioxide 20 L Anion Gap 15 BUN 7 L Creatinine 0.69 Estim Creat Clear Calc 129.6 Estimated GFR > 60 Random Glucose 166 H Osmolality Lactic Acid F/U @ 4Hr Calcium 9.3 Troponin I High Sens 150.5 H* D Urine Osmolality Ur Random Sodium Ur Random Potassium Ur Random Chloride Influenza Type A (PCR) NEGATIVE Influenza Type B (PCR) NEGATIVE RSV RNA Qual (PCR) NEGATIVE SARS-CoV-2 RNA (RT-PCR) NEGATIVE Imaging Chest x-ray: Radiologist's impression: ITS Impressions Cervical Spine CT 12/03/24 07:03 IMPRESSION: Multilevel cervical spondylosis without acute fracture or trauma-related listhesis. Fleischner guidelines were followed. Electronically signed by: Jose Hudson MD 12/03/2024 09:[address] 12/03/24 07:03 IMPRESSION: No acute fracture, bony calvarium. No acute intracranial hemorrhage. Stable appearance of the brain. Electronically signed by: Jose Hudson MD 12/03/2024 09:[address] 12/03/24 07:09 IMPRESSION: 1. No evidence of traumatic injury to the chest, abdomen, or pelvis. Please note that evaluation for solid organ injury is limited by lack of intravenous contrast material. 2. Bronchial wall thickening and mucous plugging in the left lower lobe with associated groundglass opacity which may represent early pneumonia. 3. Large amount of stool throughout the colon. Electronically signed by: Ramses Kerr MD 12/03/2024 09:22 AM EDT RP Abdomen/Pelvis CT 12/03/24 08:25 IMPRESSION: 1. No evidence of traumatic injury to the chest, abdomen, or pelvis. Please note that evaluation for solid organ injury is limited by lack of intravenous contrast material. 2. Bronchial wall thickening and mucous plugging in the left lower lobe with associated groundglass opacity which may represent early pneumonia. 3. Large amount of stool throughout the colon. Electronically signed by: Ramses Kerr MD 12/03/2024 09:22 AM EDT RP Discharge Plan Discharge Anticipated Discharge Date/Time: 12/04/24 11:46 Patient Disposition: Xfer Acute Care Hospital Discharge Diagnosis: NSTEMI Referrals: Saúl Maier PA-C [Primary Care Provider] - 1 Week Discharge Medications: New ceftriaxone 1 gram Recon Soln 1 g IVPUSH Q24H Qty: 1 0RF azithromycin 500 mg Recon Soln 500 mg IV Q24H Qty: 1 0RF enoxaparin 80 mg/0.8 mL Syringe 80 mg subcut Q12H 1 Days Qty: 1.6 0RF Solu-Medrol (PF) 40 mg/mL Recon Soln 40 mg IVPUSH Q12H 1 Days Qty: 1 0RF Continued (DME) Sharps container See Rx Instructions .Route .MEDSUPPLY Qty: 1 0RF Rx Instructions: As directed aspirin 81 mg tablet,delayed release (DR/EC) 81 mg PO DAILY 90 Days Qty: 90 2RF cholecalciferol (vitamin D3) 50 mcg (2,000 unit) capsule 100 mcg PO DAILY 90 Days Qty: 180 2RF theophylline 400 mg tablet extended release 24 hr 200 mg PO DAILY Qty: 45 2RF lansoprazole 30 mg capsule,delayed release(DR/EC) 30 mg PO DAILY Qty: 90 1RF Dupixent Pen 300 mg/2 mL pen injector 300 mg subcut Q2W 28 Days Qty: 4 0RF levothyroxine [Synthroid] 25 mcg tablet 12.5 mcg PO DAILY@0600 Rx Instructions: TAKE HALF TABLET DAILY ALONG WITH YOUR 200 MCG TABLET ON AN EMPTY STOMACH ONCE DAILY. levothyroxine [Synthroid] 200 mcg tablet 200 mcg PO DAILY@0600 oxcarbazepine 600 mg tablet 600 mg PO BID sertraline 100 mg tablet 100 mg PO BEDTIME lisinopril 10 mg tablet 10 mg PO DAILY metformin 500 mg tablet extended release 24 hr 500 mg PO BEDTIME sucralfate 1 gram tablet 1 g PO DAILY oxcarbazepine [Trileptal] 300 mg tablet 300 mg PO BID Qty: 180 0RF montelukast 10 mg tablet 10 mg PO BEDTIME 90 Days Qty: 90 2RF carvedilol 3.125 mg tablet 3.125 mg PO BID 90 Days Qty: 180 2RF clobazam 10 mg tablet 5 mg PO BID hydroxyzine HCl 25 mg tablet 25 mg PO BEDTIME PRN (Reason: Anxiety) lacosamide 100 mg tablet 100 mg PO BID nystatin 100,000 unit/mL suspension 5 ml PO DAILY PRN (Reason: thrush) 30 Days Qty: 200 6RF Rx Instructions: administer 1/2 of dose in each side of the mouth. SWISH AND SPIT albuterol sulfate [Ventolin HFA] 90 mcg/actuation HFA aerosol inhaler 2 puff PO Q6H PRN (Reason: for dyspnea) Qty: 3 4RF Airsupra 90-80 mcg/actuation HFA aerosol inhaler 2 inh inhalation TID PRN (Reason: shortness of breath) Qty: 10.7 6RF Discharge Orders: Discharge Order (Routine); Ordered 12/04/24 Ordered By: Gee Cabello Diet: Low salt diet Activity on Discharge: As tolerated Stand Alone Forms: Patient Portal Discharge page Print Language: Ugandan Care Plan Goals: NSTEMI for Transfer to [facility] Health Concerns: NSTEMI Plan of Treatment: [facility] transfer Assessment: as above
[2024-12-04 23:41] VITALS: BP 162/75; PULSE 68; RESP 20; TEMP 36.8; O2SAT 97
[2024-12-06 16:57] LABS: Oxcarbazepine 22.1 mcg/mL (8.0-35.0)
[2024-12-07 05:38] LABS: Legionella Ag Urine Not Detected (Not Detected)
[2024-12-11 11:33] LABS: Lacosamide 3.5 mcg/mL
--- NOTE | 2024-12-18 17:24 | P.CDIM_ITS ---
PROVIDER RESPONSE TEXT: To clarify, the appropriate diagnosis supported by the clinical indicators: Sepsis is/was present and is a clinical diagnosis QUERY TEXT: PHYSICIAN'S DOCUMENTATION REQUEST Date of Query: 12/11/2024 02:26 PM EDT Patient Name: Terrance Carranza Admit Date: 12/03/2024 Dear Gee Cabello MD, A review of the medical record indicates additional documentation may be needed. Please review below and update the documentation accordingly. Documentation on progress note dated 12/03/24 included the diagnosis of sepsis. Sepsis is not documented in the Discharge Summary 12/04/24 The patient's infectious clinical indicators include: pulse 97 WBC 15.9/reactive respiratory rate 24 lactic acid 3.5 Recognized standard criteria for this condition and other infectious definitions includes: Sepsis Systemic manifestations of infection, with 2 or more SIRS criteria which include: Fever > 100.4?F or hypothermia < 96.8?F Leukocytosis - WBC > 12,000 or leukopenia, WBC < 4,000, or > 10% bands Tachycardia- > 90 beats/minute Tachypnea- RR > 20 breaths/minute or PaCO2 < 32mmHg Source: Merck Manual 2013 Documentation should include the known or suspected organism, and the underlying infection, such as U TI or pneumonia Based on the above information and the recognized standard for sepsis, could you please clarify if th is diagnoses is still accurate and reflective of the patient's condition to ensure quality of the medical record. Sepsis is/was present and is a clinical diagnosis After study, Sepsis has been ruled out Other (explain) Clinically unable to determine (explain) Thank you, Caryl Amin RN Use of terms such as suspected, likely, concern for, or probable (associated with a specific diagnosi s that is being evaluated, monitored, or treated as if it exists) are acceptable and can be coded in the inpatient se tting, when documented at the time of discharge. Please use your independent medical judgment in providing your response. THIS QUERY IS PART OF THE PERMANENT MEDICAL RECORD
== END 2024-12-04 12:46 | disposition short-term general hospital (02) | DRG 720 ==
LOC: HO.ED 10:01 → HO.EDOVER 12:47 → HO.IMC 15:53
PROVIDERS: Physician Assistant; Admitting Provider Student in an Organized Health Care Education/Training Program; Emergency Provider Emergency Medicine; PCP Physician Assistant; Visit Provider Student in an Organized Health Care Education/Training Program
DX: A41.9 Sepsis, unspecified organism (principal); J96.01 Acute respiratory failure with hypoxia; I21.4 Non-ST elevation (NSTEMI) myocardial infarction; G40.919 Epilepsy, unspecified, intractable, without status epilepticus; J18.9 Pneumonia, unspecified organism; E87.1 Hypo-osmolality and hyponatremia; J45.51 Severe persistent asthma with (acute) exacerbation; E89.0 Postprocedural hypothyroidism; Z20.822 Contact with and (suspected) exposure to COVID-19; Z79.82 Long term (current) use of aspirin; Z79.84 Long term (current) use of oral hypoglycemic drugs; Z79.620 Long term (current) use of immunosuppressive biologic; Z79.890 Hormone replacement therapy; Z79.899 Other long term (current) drug therapy
CPT/HCPCS: 0241U; 36415; 70450; 71260; 72125; 74177; 80048; 80053; 80235; 80307; 80339; 81001; 82436; 82550; 82803; 82947; 83605; 83690; 83735; 83930; 83935; 84133; 84300; 84484; 85025; 85027; 87040; 87449; 93005; 93306; 94640; 99285; J0456; J0696; J1650; J2060; J2270; J2405; J2919; J3475; Q9957

== ENCOUNTER → 2024-12-03 07:09 | Outpatient (BNV) | payer OTHER, SELFPAY | PROVIDERS: Emergency Provider Emergency Medicine; PCP Physician Assistant; Visit Provider Radiology Diagnostic Radiology | DX: R10.30 Lower abdominal pain, unspecified (principal); R07.89 Other chest pain; M47.892 Other spondylosis, cervical region; R56.9 Unspecified convulsions; R51.9 Headache, unspecified | CPT/HCPCS: 70450; 71260; 72125; 74177 ==

== ENCOUNTER → 2024-12-03 12:30 | Outpatient (BNV) | payer OTHER, SELFPAY | PROVIDERS: Admitting Provider Student in an Organized Health Care Education/Training Program; Emergency Provider Emergency Medicine; PCP Physician Assistant; Visit Provider Psychiatry & Neurology Neurology | DX: G40.919 Epilepsy, unspecified, intractable, without status epilepticus (principal) | CPT/HCPCS: 99222 ==

== ENCOUNTER → 2024-12-03 12:30 | Outpatient (BNV) | payer OTHER, SELFPAY | PROVIDERS: Admitting Provider Student in an Organized Health Care Education/Training Program; Emergency Provider Emergency Medicine; PCP Physician Assistant; Visit Provider Internal Medicine Cardiovascular Disease | DX: I21.4 Non-ST elevation (NSTEMI) myocardial infarction (principal); I42.9 Cardiomyopathy, unspecified; R06.02 Shortness of breath; R94.31 Abnormal electrocardiogram [ECG] [EKG]; R00.0 Tachycardia, unspecified | CPT/HCPCS: 93010; 99232 ==

== ENCOUNTER → 2024-12-03 12:30 | Outpatient (BNV) | payer OTHER, SELFPAY | PROVIDERS: Admitting Provider Student in an Organized Health Care Education/Training Program; Emergency Provider Emergency Medicine; PCP Physician Assistant; Visit Provider Student in an Organized Health Care Education/Training Program | DX: R79.89 Other specified abnormal findings of blood chemistry (principal); E87.1 Hypo-osmolality and hyponatremia; J45.901 Unspecified asthma with (acute) exacerbation; J18.9 Pneumonia, unspecified organism; G40.919 Epilepsy, unspecified, intractable, without status epilepticus | CPT/HCPCS: 99223; 99239 ==

== ENCOUNTER 2024-12-17 10:15 | Outpatient (AMB) | payer OTHER, SELFPAY ==
[2024-12-17 10:28] VITALS: BP 102/62; PULSE 73; O2SAT 98; BMI 27.9
--- NOTE | 2024-12-17 10:28 | MHC.OFFVIS ---
Vital Signs 12/17/24 10:28 Height 5 ft 3 in Weight 157 lb 10.088 oz BMI 27.9 BP 102/62 Blood Pressure Location Lt brachial Position Sitting Pulse 73 Pulse Source Doppler Pulse Oximetry (%) 98 Oxygen Delivery Method Room Air Intake Visit Reasons: Asthma Allergies cat dander [CATS] Allergy (Mild, Verified 12/17/24 10:31) GENERALIZED ALLERGY SYMPTOMS dog dander [DOGS] Allergy (Mild, Verified 12/17/24 10:31) GENERALIZED ALLERGY SYMPTOMS tree and shrub pollen [TREE] Allergy (Mild, Verified 12/17/24 10:31) GENERALIZED ALLERGY SYMPTOMS FROM P[place] TREES HPI HPI Asthma: Details: 44-year-old gentleman, lifetime nonsmoker, followed for underlying severe persistent asthma, environmental allergies, and MEHNAZ on CPAP. He continues on Dupixent, Spiriva, Symbicort, Singulair, and albuterol MDI/nebs with suboptimal baseline control of his symptoms. He denies recent exacerbations. Patient is awaiting IP evaluation for possible bronchial thermoplasty. [facility] Medical History (Updated 12/12/24 @ 00:01 by Background Daemon) Breakthrough seizure Cardiomyopathy Uvulitis Claustrophobia Takotsubo cardiomyopathy Schatzki's ring Gastritis Sleep apnea Diabetes Gastroparesis Migraine headache with aura Enlarged liver Postoperative hypothyroidism Thyroid cancer Vitamin D deficiency Multinodular thyroid Seizures ABPA (allergic bronchopulmonary aspergillosis) Seizures Asthma Surgical History (Updated 12/12/24 @ 00:01 by Background Daemon) S/P total thyroidectomy History of esophagogastroduodenoscopy (EGD) S/P removal of thyroid nodule History of cholecystectomy Family History Maternal Grandmother Emphysema, unspecified Father Diabetes Mother No problems noted. Paternal Grandfather Liver cancer Colon cancer Social History Household Members: Family Housing: Apartment Are you a primary healthcare administrative assistant to a significant other at home: No Do you presently have visiting nurse or other home services: No Alcohol intake: never Comment: has poor balance Patient Tobacco Use Status: Never used Tobacco e-Cigarette/Vaping Use: Never Used Second Hand Smoke Exposure: No Substance Use Type: Marijuana Advance Directives Date on File: 05/20/23 service: No Current occupational status: disabled Current occupation: rt handed Cognitive needs: No Hearing needs: No Vision needs: No Review of Systems Const Denies daytime sleepiness, Denies excessive sweating, Denies fatigue, Denies fever(s), Denies lethargy, Denies malaise, Denies night sweats, Denies snoring and Denies weight loss Eyes Denies blurry vision and Denies itchy eyes ENT Denies nasal congestion, Denies post nasal drip, Denies sinus pain, Denies sinus pressure and Denies other ( Thrush) Card Denies chest pain, Denies pedal edema, Denies dyspnea, Denies orthopnea and Denies paroxysmal nocturnal dyspnea Resp Denies cough, Denies hemoptysis, Denies excessive phlegm production, Denies dyspnea, Denies snoring and Denies wheezing GI Denies abdominal pain and Denies heartburn Musc Denies myalgias, Denies arthralgias and Denies joint swelling Skin/Breast Denies rash Neuro Denies memory loss and Denies seizure-like activity Psych Denies abnormal sleep pattern, Denies anxiety and Denies memory loss Endo Denies excessive sweating, Denies fatigue and Denies heat intolerance Nico/Lymph Denies easy bruising Aller/Immun Denies itchy eyes, Denies seasonal rhinorrhea and Denies wheezing Physical Exam Vital Signs: Last Vital Signs Pulse 73 12/17/24 10:28 BP 102/62 12/17/24 10:28 Pulse Ox 98 12/17/24 10:28 Oxygen Delivery Method Room Air 12/17/24 10:28 BMI result Body Mass Index 27.9 Const General: no acute distress and alert Nutritional Appearance: not obese Orientation/consciousness: Other orientation findings ( oriented) HEENT Head: Yes atraumatic Eyes General: appearance normal, both eyes and all related structures Sclerae: sclerae normal EOM: EOMs intact bilaterally Neck Neck: Yes supple Lymphatic: no lymphadenopathy noted Resp Effort & Inspection: normal respiratory effort and no use of accessory muscles Auscultation: clear to auscultation bilaterally Cardio Rate: regular rate Rhythm: regular rhythm Heart sounds: no gallops, no murmurs and no rubs Skin General skin exam: other ( warm) Extrem General: No clubbing, No cyanosis and No edema Assessment & Plan Assessment & Plan (1) Severe persistent allergic asthma: Code(s): J45.50 - Severe persistent asthma, uncomplicated Category: Medical Plan: Suboptimal control on maximum therapy with Dupixent, theophylline, Spiriva, Symbicort, and Singulair. Patient is awaiting IP evaluation for possible bronchial thermoplasty. (2) Environmental allergies: Code(s): Z91.09 - Other allergy status, other than to drugs and biological substances Category: Medical Plan: Reasonable control on Dupixent. Continue current regimen. Coding Level of Care Code Est Pt Level 4 (57077) Diagnoses Severe persistent allergic asthma J45.50 Environmental allergies Z91.09
--- OUTSIDE RECORDS SUMMARY | 2024-12-17 12:02 | XMS_ITS | Encounter Summary ---
Author Organization [facility] Address [address] [place] [address] Care Team Providers Care Campus Administrator Name Role Phone Saúl Maier Primary Care Provider Unavailab le Reason for Visit * Reason Comments E-prescribe Rx Request Encounter Details Date Type Department Care Team Description 04/10/2019 Refill Pulmonology - [place] [address] [facility] [address] [place] [address] Milly aBrnes MD [address] [place] [address] E-prescribe Rx Request Social History [...] NO Patients current [place] is: [place] [facility] [place] [facility] / Plan: [facility] / Product Type: MEDICAID RISK documented in this encounter Plan of Treatment Not on file documented as of this encounter Visit Diagnoses Not on filedocumented in this encounter Care Teams Campus Administrator Relationship Specialty Start Date End Date Saúl Maier PCP - General Internal Medicine 03/06/19 documented as of this encounter
--- OUTSIDE RECORDS SUMMARY | 2024-12-17 12:02 | XMS_ITS | Encounter Summary ---
Author Organization [facility] Address [address] [place] [address] Care Team Providers Care Milk Handler Name Role Phone Saúl Maier Primary Care Provider Unavailab le Encounter Details Date Type Department Care Team Description 09/12/2019 Release of Information Medical Records [address] [place] [id number] Abstract, Provider Social History Tobacco Use Types [...] on filedocumented in this encounter Care Teams Milk Handler Relationship Specialty Start Date End Date Saúl Maier PCP - General Internal Medicine 03/06/19 documented as of this encounter
--- OUTSIDE RECORDS SUMMARY | 2024-12-17 12:03 | XMS_ITS | Clinical Summary ---
Author Organization [facility] Address [address] [address] Care Team Providers Care Refrigerator Repair Technician Name Role Phone Saúl Maier Primary Care Provider [phone] Allergies No known active allergies Medications acetaminophen [...] Vaccine (#1) 2024 Insurance MEDICAID Care Teams Refrigerator Repair Technician Relationship Specialty Start Date End Date Saúl Maier PA [address] [place] [address], [address] [place] [address] PCP - General Physician Supervisor Dry Cleaning 01/30/22
--- OUTSIDE RECORDS SUMMARY | 2024-12-17 12:03 | XMS_ITS | Encounter Summary ---
Author Organization [facility] Address [address] [place] [address] Care Team Providers Care Customs Opener Verifier Packer Name Role Phone Saúl Maier Primary Care Provider Encounter Details Date Type Department Care Team (Late st Contact Info) Description 12/08/2024 Telephone Pulmonology - [address] [phone] Anabel Garvin MD [address] [place] [address] Social History Tobacco Use Types Packs/Day Years [...] Care Team (Late st Contact Info) Description 01/01/2025 1:15 PM EDT Appointment [facility] CT Scan [address] [place] [phone] 01/01/2025 2:00 PM EDT Appointment [facility] [address] Scan [address] [place] [phone] documented as of this encounter Visit Diagnoses Not on filedocumented in this encounter Care Teams Customs Opener Verifier Packer Relationship Specialty Start Date End Date Saúl Maier PA PCP - General Physician Driver Manager 12/09/24 documented as of this encounter
--- OUTSIDE RECORDS SUMMARY | 2024-12-17 12:03 | XMS_ITS | Clinical Summary ---
Author Organization [facility] [address] [facility] Address [address] [place] [address] Phone Care Team Providers Care Clearance Diver Name Role Phone Saúl Maier Primary Care [...] Encounters Date Type Department Care Team Description 12/08/2024 Telephone [address] [phone] Anabel Garvin MD 10/23/2024 8:04 AM EST - 10/23/2024 11:59 PM EST Hospital Encounter [facility] Pulmonary [address] [place] [phone] Severe asthma, unspecified whether complicated, unspecified whether persistent Discharge Disposition: Home or Self Care 10/16/2024 3:00 PM EST Consult Pulmonology - [place] [address] [phone] Anabel Garvin MD Severe asthma, unspecified whether complicated, unspecified whether persistent (Primary Dx); Stridor 10/15/[address] [facility] [address] [phone] Sandra Soriano MA 10/10/2024 Telephone Pulmonology - [place] [address] [phone] Sandra Soriano MA from Last 3 Months Medical History Medical History Date Comments Allergic rhinitis 07/14/2017 DX:Allergic rh initis Asthma 12/08/2016 DX:Asthma Asthma-chronic obstructive p ulmonary disease overlap syndrome ([facility]/HCC) 04/16/2017 DX:Asthma-chronic o bstructive pulmonary disease overlap syndrome (HCC) Gastroesophageal reflux disease 12/08/2016 DX:Gastroesophageal reflux disease Obstructive sleep apnea syndrome 04/16/2017 DX:Obstructive sleep apnea syndrome COPD (chronic obstructive pu lmonary disease) ([facility]/HCC) 10/03/2017 DX:COPD (chronic obstructive pulmonary disease) ([facility]) Social History Tobacco Use Types Packs/Day Years [...] 10/16/2024 3:01 PM EST Plan of Treatment Upcoming Encounters Date Type Department Care Team (Late st Contact Info) Description 01/01/2025 1:[address] [facility] Scan [address] [place] [address] 01/01/2025 2:[address] [facility] Scan [address] [place] [phone] Health Maintenance Due Date Last Done Comments COVID-19 Vaccine (#1) 11/18/1984 Hepatitis B Vaccines (1 of 3 - 19+ 3-dose series) 11/18/1998 Pneumococcal Vaccine: Pediatrics (0 to 5 Years) and At-Risk Patients (6 to 64 Years) (3 of 3 - PCV) 11/24/2019 11/23/2018, 08/22/2018 Cholesterol Screening (Lipid Panel) 08/07/2024 Colorectal Cancer Screening: Colonoscopy 08/07/2024 Depression Screening 08/07/2024 HIV Screening 08/07/2024 [...] the fixed obstruction ??Milly Barnes MD ?? Anabel Garvin MD PFT ORDERABLES Final Resu lt from Last 3 Months Insurance [facility] Care Teams Clearance Diver Relationship Specialty Start Date End Date Saúl Maier PA PCP - General Physician Warping Mill Operator 12/09/24
== END 2024-12-17 10:43 | disposition home or self-care (01) ==
LOC: HO.HPS 10:16
PROVIDERS: PCP Physician Assistant; Visit Provider Internal Medicine Pulmonary Disease
DX: J45.50 Severe persistent asthma, uncomplicated (principal); Z91.09 Other allergy status, other than to drugs and biological substances
CPT/HCPCS: 99214

== ENCOUNTER → 2024-12-17 10:15 | Outpatient (BNVA) | payer OTHER, SELFPAY | PROVIDERS: PCP Physician Assistant; Visit Provider Internal Medicine Pulmonary Disease | DX: J45.50 Severe persistent asthma, uncomplicated (principal); Z79.01 Long term (current) use of anticoagulants | CPT/HCPCS: 99212 ==

== ENCOUNTER 2024-12-19 07:50 | Outpatient (AMB) | payer OTHER, SELFPAY ==
--- OUTSIDE RECORDS SUMMARY | 2024-12-19 07:54 | XMS_ITS | Clinical Summary ---
Author Organization [facility] [address] [facility] Address [address] [place] [address] Phone Care Team Providers Care Print Controller Name Role Phone Saúl Maier Primary Care Provider [phone] Allergies Active Allergy Reactions Criticality Noted Date [...] Department Care Team Description 12/08/2024 Telephone Pulmonology [address] [phone] Anabel Garvin MD 10/23/2024 8:04 AM EST - 10/23/2024 11:59 PM EST Hospital Encounter [facility] Pulmonary [address] [place] [phone] Severe asthma, unspecified whether complicated, unspecified whether persistent Discharge Disposition: Home or Self Care 10/16/2024 3:00 PM EST Consult Pulmonology - [place] [address] [phone] Anabel Garvin MD Severe asthma, unspecified whether complicated, unspecified whether persistent (Primary Dx); Stridor 10/15/2024 Telephone Pulmonology [facility] [address] [phone] Sandra Soriano MA 10/10/2024 Telephone Pulmonology - [place] [address] [phone] Sandra Soriano MA from Last 3 Months Medical History Medical History Date Comments Allergic rhinitis 07/14/2017 DX:Allergic rh initis Asthma 12/08/2016 DX:Asthma Asthma-chronic obstructive p ulmonary disease overlap syndrome ([facility]/HCC) 04/16/2017 DX:Asthma-chronic o bstructive pulmonary disease overlap syndrome (HCC) Gastroesophageal reflux disease 12/08/2016 DX:Gastroesophageal reflux disease Obstructive sleep apnea syndrome 04/16/2017 DX:Obstructive sleep apnea syndrome COPD (chronic obstructive pu lmonary disease) ([facility]/HCC) 10/03/2017 DX:COPD (chronic obstructive pulmonary disease) ([facility]) Social History Tobacco Use Types Packs/Day [...] Info) Description 01/01/2025 1:15 PM EDT Appointment [facility] [address] Scan [address] [place] [address] 01/01/2025 2:00 PM EDT Appointment [facility] CT Scan [address] [place] [phone] Health Maintenance Due Date Last Done Comments [...] Resu lt from Last 3 Months Insurance [facility] Care Teams Print Controller Relationship Specialty Start Date End Date Saúl Maier PA PCP - General Physician Associate Pathologist 12/09/24
--- OUTSIDE RECORDS SUMMARY | 2024-12-19 07:54 | XMS_ITS | Clinical Summary ---
Author Organization [facility] Address [address] [address] Care Team Providers Care Ramp Jockey Name Role Phone Saúl Maier Primary Care Provider Allergies No known active allergies Medications acetaminophen [...] Vaccine (#1) 2024 Insurance MEDICAID Care Teams Ramp Jockey Relationship Specialty Start Date End Date Saúl Maier PA [address] [place] [address], [address] [place] [address] PCP - General Physician Stock Or Delivery Clerk 01/30/22
--- OUTSIDE RECORDS SUMMARY | 2024-12-19 07:54 | XMS_ITS | Encounter Summary ---
Author Organization [facility] Address [address] [place] [address] Care Team Providers Care Regional Production Manager Name Role Phone Saúl Maier Primary Care Provider [phone] Encounter Details Date Type Department Care Team (Late st Contact Info) Description 12/08/2024 Telephone Pulmonology - [address] [phone] Anabel Garvin MD [address] [place] [phone] Social History Tobacco Use Types Packs/Day Years [...] Info) Description 01/01/2025 1:15 PM EDT Appointment [facility] CT Scan [address] [place] [phone] 01/01/2025 2:00 PM EDT Appointment [facility] CT Scan [address] [place] [phone] documented as of this encounter Visit Diagnoses Not on filedocumented in this encounter Care Teams Regional Production Manager Relationship Specialty Start Date End Date Saúl Maier PA PCP - General Physician Check Embosser 12/09/24 documented as of this encounter
--- NOTE | 2024-12-19 07:55 | A.OFFPC_ITS ---
Vital Signs 12/19/24 07:57 Height 5 ft 3 in Weight 157 lb 3.2 oz BMI 27.8 BP 108/68 Blood Pressure Location Lt brachial Position Sitting Respiration 18 Pulse 71 Pulse Source Pulse Oximeter Temp 97.3 F Temp Source Temporal Artery Scan Pulse Oximetry (%) 96 Intake Visit Reasons: [facility] 12/11 heart conditions Intake Note: Patient is here for hospital discharge follow up. Patient was discharged from [facility] on 12/11/2024. Rubber Molder Required: No Accompanied by: Self / Same As Patient Allergies cat dander [CATS] Allergy (Mild, Verified 12/19/24 07:59) GENERALIZED ALLERGY SYMPTOMS dog dander [DOGS] Allergy (Mild, Verified 12/19/24 07:59) GENERALIZED ALLERGY SYMPTOMS tree and shrub pollen [TREE] Allergy (Mild, Verified 12/19/24 07:59) GENERALIZED ALLERGY SYMPTOMS FROM PINE TREES Tobacco use date assessed: 12/19/24 Dental Screening Dental Screen Date: 12/19/24 Did you have a dental visit in the last 12 months?: Yes Did you have a dental problem in the last 6 months where you did not have access to dental care?: No Was dental information given to patient?: Patient has dentist HPI HPI Comments History of Present Illness Details 44 Y/O Male patient who presents to the clinic today for HDF. PMH significant for endocarditis, diskitis, HLD, polysubstance use disorder on methadone, PTSD, and schizoaffective disorder who presented to [facility] with chest pain, nausea, and vomiting. He was admitted 12/03 - 12/04 for treatment and further evaluation of acute NSTEMI requiring heparin drip. Echo showed abnormality in wall motion. He was diagnosed with Asthma exacerbation and Pneumonia as shown on CT imaging. Pt was transfered to [facility] for cardiac angiogram. He was admitted at [facility] 12/04 - 12/08. Medication changes: Oxcarbazepine 600 mg BID, Lacosamide 150 mg BID, Atorvastatin 80 mg daily and Carvedilol 6.25 mg BID. Pt has appointments: Cardiology 01/22, Neurology 12/22 and Neurology 02/10 [facility] Medical History (Updated 12/19/24 @ 08:14 by Evette Hollingsworth NP) Breakthrough seizure Cardiomyopathy Uvulitis Claustrophobia Takotsubo cardiomyopathy Schatzki's ring Gastritis Sleep apnea Diabetes Gastroparesis Migraine headache with aura Enlarged liver Postoperative hypothyroidism Thyroid cancer Vitamin D deficiency Multinodular thyroid Seizures ABPA (allergic bronchopulmonary aspergillosis) Seizures Asthma Surgical History S/P total thyroidectomy History of esophagogastroduodenoscopy (EGD) S/P removal of thyroid nodule History of cholecystectomy Family History Maternal Grandmother Emphysema, unspecified Father Diabetes Mother No problems noted. Paternal Grandfather Liver cancer Colon cancer Social History Household Members: Family Housing: Apartment Are you a primary tire care manager to a significant other at home: No Do you presently have visiting nurse or other home services: No Alcohol intake: never Comment: has poor balance Patient Tobacco Use Status: Never used Tobacco e-Cigarette/Vaping Use: Never Used Second Hand Smoke Exposure: No Substance Use Type: Marijuana Advance Directives Date on File: 05/20/23 service: No Current occupational status: disabled Current occupation: rt handed Cognitive needs: No Hearing needs: No Vision needs: No Questionnaire Thrive Questionnaire Date Thrive assessed: 12/19/24 I am a: Patient What is your living situation today?: I have a place to live, but I am worried about losing it in the future Within the past 12 months, did the food you bought not last and you didn't have the money to get more?: Sometimes True Within the past 12 months, did you worry whether your food would run out before you got money to buy more?: Sometimes True Do you have trouble paying for medicines?: No Do you have trouble getting transportation to medical appointments?: Yes Do you have trouble paying your heating and electricity bill?: Yes Do you have trouble taking care of your child, family member or friend?: No Do you have trouble with day-to-day activities such as bathing, preparing meals, shopping, managing finances, etc.?: Yes Are you currently unemployed and looking for a job?: Yes Are you interested in more education?: No Please select the resources that you would like help with: Daily support Currently or been in a relationship where the following occur: I choose not to answer THRIVE Score: 5 AUDIT C Alcohol Use Questionnaire (AUDIT-C) 1. How often do you have a drink containing alcohol?: Never 3. How often do you have six or more drinks on one occasion?: Never Total Score: 0 MOOSE-7 AMB Questionnaire MOOSE-7 Date MOOSE - 7 assessed: 10/01/24 Source: Developed by Drs. Ramses Nguyen, Debi Russ, Colin Rowell and colleagues, with an educational javy from [employer]. Review of Systems Const All systems reviewed & are unremarkable except as noted in HPI and below Physical exam (Primary Care) Vital Signs: Last Vital Signs Temp 97.3 F 12/19/24 07:57 Pulse 71 12/19/24 07:57 Resp 18 12/19/24 07:57 BP 108/68 12/19/24 07:57 Pulse Ox 96 12/19/24 07:57 BMI result Body Mass Index 27.8 Tobacco/Smoking Status: Tobacco use Status Tobacco use date assessed 12/19/24 12/19/24 08:07 Patient Tobacco Use Status Never used Tobacco 12/19/24 08:07 Tobacco use type 06/18/24 11:44 e-Cigarette/Vaping Use Never Used 12/19/24 08:07 Thrive Assessment: Date of Thrive Assessment Date Thrive assessed 12/19/24 12/19/24 08:07 Currently or been in a relationship where the following occur: I choose not to answer Const General: cooperative and no acute distress Nutritional Appearance: well nourished Orientation/consciousness: patient oriented x3 Resp Effort & Inspection: normal respiratory effort and able to speak in complete sentences Auscultation: clear to auscultation bilaterally, no crackles, no rales, no rhonchi and no wheezes Cardio Rhythm: regular rhythm Heart sounds: S1 normal heart sound present and S2 normal heart sound present Neuro General: patient oriented x3, gait normal and moves all extremities Psych Speech and movement: Normal speech and movement present Coding Level of Care Code Est Pt Level 4 (99996) Diagnoses Other cardiomyopathy I42.8 Cardiomyopathy type: other NSTEMI (non-ST elevated myocardial infarction) I21.4 Acute hyponatremia E87.1 Time Spent (min) 20 Assessment & Plan Assessment & Plan (1) Cardiomyopathy: Code(s): I42.9 - Cardiomyopathy, unspecified Category: Medical Qualifiers: Cardiomyopathy type: other Qualified Code(s): I42.8 - Other cardiomyopathies Plan: Managed by Cardiology. (2) NSTEMI (non-ST elevated myocardial infarction): Code(s): I21.4 - Non-ST elevation (NSTEMI) myocardial infarction Category: Medical Plan: Managed by Cardiology. (3) Acute hyponatremia: Code(s): E87.1 - Hypo-osmolality and hyponatremia Category: Medical Plan: Resolved. Hyponatremia due to SIADH
[2024-12-19 07:57] VITALS: BP 108/68; PULSE 71; RESP 18; TEMP 36.3; O2SAT 96; BMI 27.8
== END 2024-12-19 09:00 | disposition home or self-care (01) ==
LOC: HO.HMCH 07:51
PROVIDERS: PCP Physician Assistant; Visit Provider Nurse Practitioner Family
DX: I42.8 Other cardiomyopathies (principal); I21.4 Non-ST elevation (NSTEMI) myocardial infarction; E87.1 Hypo-osmolality and hyponatremia

== ENCOUNTER → 2024-12-19 07:50 | Outpatient (BNVA) | payer OTHER, SELFPAY | PROVIDERS: PCP Physician Assistant; Visit Provider Nurse Practitioner Family | DX: E78.5 Hyperlipidemia, unspecified (principal); I42.8 Other cardiomyopathies; I21.4 Non-ST elevation (NSTEMI) myocardial infarction; E87.1 Hypo-osmolality and hyponatremia | CPT/HCPCS: 99212 ==

== ENCOUNTER 2024-12-30 08:26 | Outpatient (AMB) | payer OTHER, SELFPAY ==
--- OUTSIDE RECORDS SUMMARY | 2024-12-30 08:36 | XMS_ITS | Clinical Summary ---
Author Organization [facility] Facility Address [address] [address] Care Team Providers Care Development Analyst Name Role Phone Saúl Maier Primary Care Provider [phone] Allergies No known active allergies Medications acetaminophen [...] Health Maintenance Due Date Last Done Comments Hepatitis B Vaccine (1 of 3 - 19+ 3-dose series) 11/18 Pneumococcal Vaccine: Peds ( 0 to 5 Years) and At-Risk Patients (6 to 49 Years) (1 of 2 - PCV) 11/18/1998 Influenza Vaccine (Season Ended) 2025 Insurance Care Teams Development Analyst Relationship Specialty Start Date End Date Saúl Maier PA [address] [place] [address], [address] [place] [address] PCP - General Physician Fork Lift Technician 01/30/22
--- OUTSIDE RECORDS SUMMARY | 2024-12-30 08:36 | XMS_ITS | Encounter Summary ---
Author Organization [facility] Address [address] [place] [address] Care Team Providers Care Litigation Specialist Name Role Phone Saúl Maier Primary Care Provider Encounter Details Date Type Department Care Team (Late st Contact Info) Description 12/08/2024 Telephone Pulmonology - [address] [phone] Anabel Garvin MD [address] [place] [id number] Social History Tobacco Use Types Packs/Day Years [...] Info) Description 01/01/2025 1:15 PM EDT Appointment [facility] CT Scan [address] [place] [phone] 01/01/2025 2:00 PM EDT Appointment [facility] CT Scan [address] [place] [phone] documented as of this encounter Visit Diagnoses Not on filedocumented in this encounter Care Teams Litigation Specialist Relationship Specialty Start Date End Date Saúl Maier PA PCP - General Physician Contractor Broomcorn Threshing 12/09/24 documented as of this encounter
[2024-12-30 08:37] VITALS: BP 126/80; PULSE 73; O2SAT 96; BMI 31.2
--- NOTE | 2024-12-30 08:37 | MHC.PC.OV ---
Vital Signs 12/30/24 08:37 Height 5 ft Weight 160 lb BMI 31.2 BP 126/80 Blood Pressure Location Lt brachial Position Sitting Pulse 73 Pulse Source Pulse Oximeter Pulse Oximetry (%) 96 Oxygen Delivery Method Room Air Intake Visit Reasons: Follow-up seizure disorder, thyroid Accompanied by: Self / Same As Patient Allergies cat dander [CATS] Allergy (Mild, Verified 12/30/24 08:51) GENERALIZED ALLERGY SYMPTOMS dog dander [DOGS] Allergy (Mild, Verified 12/30/24 08:51) GENERALIZED ALLERGY SYMPTOMS tree and shrub pollen [TREE] Allergy (Mild, Verified 12/30/24 08:51) GENERALIZED ALLERGY SYMPTOMS FROM [place] Medication List - Last Reconciled 12/30/24 by Saúl Maier PA-C albuterol-budesonide 90-80 mcg/actuation (Airsupra) 2 inhalations inhalation TID PRN aspirin 81 mg PO DAILY 90 days atorvastatin 80 mg PO DAILY carvedilol 6.25 mg PO BID cholecalciferol (vitamin D3) 100 mcg (2 x 50 mcg (2,000 unit)) PO DAILY 90 days clobazam 5 mg PO BID dapagliflozin propanediol (Farxiga) 10 mg PO DAILY dupilumab (Dupixent) 300 mg (2 mL) subcut Q2W 28 days hydroxyzine HCl 25 mg PO BEDTIME PRN lacosamide mg PO lansoprazole 30 mg PO DAILY levothyroxine (Synthroid) 12.5 mcg PO DAILY@0600 levothyroxine (Synthroid) 200 mcg PO DAILY@0600 lisinopril 10 mg PO DAILY metformin ER 500 mg PO BEDTIME montelukast 10 mg PO BEDTIME 90 days nystatin 5 mL PO DAILY PRN 30 days oxcarbazepine 600 mg PO BID sertraline 100 mg PO BEDTIME [Sharps container As directed] sucralfate 1 g PO DAILY theophylline ER 200 mg (1/2 x 400 mg) PO DAILY Ventolin HFA 90 mcg/actuation (albuterol sulfate) 2 puffs PO Q6H PRN NS Tobacco use date assessed: 12/30/24 Dental Screening Dental Screen Date: 12/19/24 HPI Follow-up seizure disorder, thyroid HPI Details Terrance is 44 year-old male here today for a follow-up visit ?Patient? has a past medical history significant for seizure disorder, moderate persistent? asthma, depression and anxiety, thyroid cancer status post thyroidectomy. --> Patient recently brought to [facility] for an acute postictal state after seizure. He was found to have elevated troponins and subsequently transferred to [facility] for cardiac catheterization. During his catheterization there was no blocked coronary arteries. While at [facility] he was seen by Neurology due to his low-sodium. His oxcarbazepine was decreased to 600 b.i.d. from 900 b.i.d. and a few other epileptic med changes. PLAN: plan is to reduce the OXC over time. He is interested in a 2nd opinion from [facility] Neurology epileptic specialty. He is also interested in seeing a pharmacotherapy highest to help him manage his medication and side effects from his epileptic medication Epileptic disorder: Neurology also evaluated did EEG that did show some frontal epileptic activity. His seizure medication was increased in dose. Unfortunately has intolerable side effects (lethargy, memory issues). He is currently working with a rn social work (Pam) who is trying to get him a new neurologist to make new recommendations on his seizure medication as he is having breakthrough seizures. .. GERD/dysphagia: Does report having worsening GERD like symptoms and chronic throat congestion. He will be following up with Gastroenterology about this. .. Type 2 diabetes: Today's A1c is 5.7 from 6.0.. He continues on metformin 500 daily.. He does admit to dietary indiscretion as a side effect his seizure medications. History of?thyroid cancer: Has noted recently change in his voice and some hoarseness. He is status post total thyroidectomy. Continues on levothyroxine indefinitely. Most recent TSH and T4 have been abnormal Continues on dose levothyroxine at 200 mcg. He has followed up with a endocrinology thyroid specialist in [place] whom will be further working him up. PLAN: Plan for CT of soft tissue neck to evaluate for any recurrent thyroid cancer. ?.. ? Anxiety: Patient he is? seeing therapist (Leila) weekly. Patient continues? on Zoloft .. History of cardiomyopathy:? As above patient recently underwent a cardiac catheterization without any notable blockages in his coronary arteries. ?.. ?Moderate persistent asthma:? Followed by Pulmonology. REcent PFT - showing modererate asthma vs COPD. He does continue on Dupixent which has really helped initially control his asthma symptoms . Unfortunately his asthma has worsened. Will be considering ASS for a Bronchothermoplasy. He reports as of late his wheezing has been more evident and he attributes this to the changes in weather. [facility] Medical History Breakthrough seizure Cardiomyopathy Uvulitis Claustrophobia Takotsubo cardiomyopathy Schatzki's ring Gastritis Sleep apnea Diabetes Gastroparesis Migraine headache with aura Enlarged liver Postoperative hypothyroidism Thyroid cancer Vitamin D deficiency Multinodular thyroid Seizures ABPA (allergic bronchopulmonary aspergillosis) Seizures Asthma Surgical History S/P total thyroidectomy History of esophagogastroduodenoscopy (EGD) S/P removal of thyroid nodule History of cholecystectomy Family History Maternal Grandmother Emphysema, unspecified Father Diabetes Mother No problems noted. Paternal Grandfather Liver cancer Colon cancer Social History Household Members: Family Housing: Apartment Are you a primary complex care nurse practitioner to a significant other at home: No Do you presently have visiting nurse or other home services: No Alcohol intake: never Comment: has poor balance Patient Tobacco Use Status: Never used Tobacco e-Cigarette/Vaping Use: Never Used Second Hand Smoke Exposure: No Substance Use Type: Marijuana Advance Directives Date on File: 05/20/23 service: No Current occupational status: disabled Current occupation: rt handed Cognitive needs: No Hearing needs: No Vision needs: No Questionnaire Thrive Questionnaire Date Thrive assessed: 12/19/24 I am a: Patient What is your living situation today?: I have a place to live, but I am worried about losing it in the future Within the past 12 months, did the food you bought not last and you didn't have the money to get more?: Sometimes True Within the past 12 months, did you worry whether your food would run out before you got money to buy more?: Sometimes True Do you have trouble paying for medicines?: No Do you have trouble getting transportation to medical appointments?: Yes Do you have trouble paying your heating and electricity bill?: Yes Do you have trouble taking care of your child, family member or friend?: No Do you have trouble with day-to-day activities such as bathing, preparing meals, shopping, managing finances, etc.?: Yes Are you currently unemployed and looking for a job?: Yes Are you interested in more education?: No Please select the resources that you would like help with: Daily support Currently or been in a relationship where the following occur: I choose not to answer THRIVE Score: 5 MOOSE-7 AMB Questionnaire MOOSE-7 Date MOOSE - 7 assessed: 10/01/24 Source: Developed by Drs. Ramses Nguyen, Debi Russ, Colin Rowell and colleagues, with an educational javy from [employer]. Review of Systems Const Reports fatigue, Denies headache(s), Reports lethargy, Reports malaise and Reports weakness Eyes Denies loss of vision ENT Denies vertigo, Denies dizziness, Denies headache(s) and Denies sore throat Card Denies chest pain, Denies leg edema and Denies lightheadedness Resp Denies cough, Denies hemoptysis and Denies wheezing GI Denies abdominal pain, Denies melena, Denies constipation, Denies diarrhea and Denies vomiting Denies dysuria, Denies urinary frequency and Denies urinary urgency Musc Denies arthralgias, Denies joint swelling, Denies numbness and Denies tingling Neuro Denies Abnormal speech present, Denies behavioral changes, Denies vertigo, Denies dizziness, Denies headache(s), Denies loss of vision, Denies memory loss, Denies numbness, Denies tingling and Reports weakness Psych Denies anxiety, Denies behavioral changes, Reports depression, Reports difficulty concentrating, Reports irritability, Reports anhedonia, Denies memory loss and Denies panic attacks Endo Reports fatigue Nico/Lymph Denies easy bleeding and Denies easy bruising Aller/Immun Denies wheezing Physical exam (Primary Care) Vital Signs: Last Vital Signs Pulse 73 12/30/24 08:37 BP 126/80 12/30/24 08:37 Pulse Ox 96 12/30/24 08:37 Oxygen Delivery Method Room Air 12/30/24 08:37 BMI result Body Mass Index 31.2 BMI Assessment/Plan discussion: High BMI High, discussed plan: lifestyle, weight reduction, dietary and physical activity Tobacco/Smoking Status: Tobacco use Status Tobacco use date assessed 12/30/24 12/30/24 08:40 Patient Tobacco Use Status Never used Tobacco 12/30/24 08:40 Tobacco use type 06/18/24 11:44 e-Cigarette/Vaping Use Never Used 12/30/24 08:40 Thrive Assessment: Date of Thrive Assessment Date Thrive assessed 12/19/24 12/30/24 08:40 Currently or been in a relationship where the following occur: I choose not to answer Const General: healthy appearing, no acute distress, alert and awake Nutritional Appearance: well nourished Orientation/consciousness: oriented to person, oriented to place and oriented to time HENMT Ears: TM's normal bilaterally General nose exam: Normal nasal mucous membranes and turbinates present Eyes Conjunctivae: conjunctivae normal Sclerae: sclerae normal Pupils: Equal, round and reactive pupils present Neck Neck: Yes no lymphadenopathy and Yes no JVD Thyroid: Thyroid normal Carotids: no bruits Resp Effort & Inspection: normal respiratory effort and not tachypneic Auscultation: no crackles, no rales, no rhonchi and no wheezes Cardio Rate: regular rate Rhythm: regular rhythm Heart sounds: no murmurs and normal S1 and S2 GI Palpation (GI): Soft to palpation, nontender, no hepatomegaly and no splenomegaly Auscultation: normal bowel sounds Skin General skin exam: no rashes or lesions noted and dry skin Neuro General: oriented to person, oriented to place and oriented to time Cranial nerves: Yes Equal, round and reactive pupils present Speech: No Abnormal speech present Gait exam (Neuro): Normal gait present Motor exam (neuro): no tremor noted Extrem Right upper extremity: full ROM Left upper extremity: full ROM Right lower extremity: full ROM; no edema Left lower extremity: full ROM; no edema Psych Mental Status: mental status grossly normal Speech and movement: Normal speech and movement present Affect: normal affect Attitude: cooperative Thought process: Normal thought process present Results AMB Hemoglobin A1c AMB Hemoglobin A1c 5.7 % Last Edit by RAFA Liu on 12/30/24 08:50 Results Reviewed Results Reviewed: Laboratory Last Values Hgb A1c (Clinic) 5.7 % (4.0-6.0) 12/30/24 08:33 Coding Level of Care Code Est Pt Level 4 (83046) Diagnoses Seizure disorder G40.909 Thyroid cancer C73 Type 2 diabetes mellitus with hyperglycemia, without long-term current use of insulin E11.65 Diabetes mellitus pharmacovigilance scientist insulin use: without pharmacovigilance scientist use Diabetes mellitus complication status: with hyperglycemia Moderate persistent asthma without complication J45.40 Asthma complication type: uncomplicated Asthma persistence: persistent Asthma severity: moderate MDD (major depressive disorder), recurrent episode, moderate F33.1 Assessment & Plan Assessment & Plan (1) Seizure disorder: Code(s): G40.909 - Epilepsy, unspecified, not intractable, without status epilepticus Category: Medical Plan: Patient continues on 4 different antiepileptic medication. Recently had a seizure last month. He is now seeing an epileptic specialist at [facility] in his made some med adjustments. He reports he is being weaned off with a oxcarbazepine over some time. He is interested in getting a 2nd opinion at [facility] Neurology epileptic specialty for 2nd opinion He continues to have all kinds of side effects from his antiseizure meds. (2) Thyroid cancer: Code(s): C73 - Malignant neoplasm of thyroid gland Category: Medical Plan: Patient has a history of thyroid cancer in his status post thyroidectomy. Patient's TSH and T4 still remain abnormal.. Over the last few months he has noted some hoarseness of voice and changing in his voice. Will send for CT of soft tissue of neck to evaluate for any recurrent mass in the neck causing the change in his voice. He will be following up with his induction heat treater as well. (3) DMII (diabetes mellitus, type 2): Comment: Pt also with GERD Code(s): E11.9 - Type 2 diabetes mellitus without complications Category: Medical Qualifiers: Diabetes mellitus pharmacovigilance scientist insulin use: without correction use Diabetes mellitus complication status: with hyperglycemia Qualified Code(s): E11.65 - Type 2 diabetes mellitus with hyperglycemia Plan: Patient's type 2 diabetes well controlled with current dose of metformin. Today's A1c is 5.7 from 6.0. Goal A1c is to remain below 6.5. (4) Asthma: Code(s): J45.909 - Unspecified asthma, uncomplicated Category: Medical Qualifiers: Asthma complication type: uncomplicated Asthma persistence: persistent Asthma severity: moderate Qualified Code(s): J45.40 - Moderate persistent asthma, uncomplicated Plan: Patient followed by [facility] pulmonology. Has pretty severe asthma which as of late has not been well controlled even on maximal medical therapy. He will be seeing pulmonology and [facility] to discuss alternative therapies (5) MDD (major depressive disorder), recurrent episode, moderate: Code(s): F33.1 - Major depressive disorder, recurrent, moderate Category: Medical Plan: Continues to suffer with depression secondary to his physical health conditions that have not completely been figured out. Speaks with a mental health therapist and continues on mental health medication. He reports his depression is bad because of his medical conditions that are hard to figure out. Orders: Orders AMB Hemoglobin A1c Today E11.65 - Type 2 diabetes mellitus with hyperglycemia Referrals Neurology Referral G40.909 - Epilepsy, unspecified, not intractable, without status epilepticus
--- OUTSIDE RECORDS SUMMARY | 2024-12-30 08:37 | XMS_ITS | Clinical Summary ---
Author Organization [facility] [address] [facility] Address [address] [place] [address] Phone Care Team Providers Care Sailor Name Role Phone Saúl Maier Primary Care Provider [phone] Allergies Active Allergy Reactions Criticality Noted Date [...] Noted Date Diagnosed Date COPD (chronic obstructive pu lmonary disease) ([facility] V24, [facility] V28) 10/03/2017 Allergic rhinitis 07/14/2017 Asthma-chronic obstructive p ulmonary disease overlap syndrome ([facility] V24, [facility] V28) 04/16/2017 Obstructive sleep apnea syndrome 04/16/2017 Asthma 12/08/2016 Gastroesophageal reflux disease 12/08/2016 Encounters Date Type Department Care Team Description 12/08/2024 Telephone [address] [phone] Anabel Garvin MD 10/23/2024 8:04 AM EST - 10/23/2024 11:59 PM EST Hospital Encounter [facility] Pulmonary [address] [place] [address] Severe asthma, unspecified whether complicated, unspecified whether persistent Discharge Disposition: Home or Self Care 10/16/2024 3:00 PM EST Consult Pulmonology - [place] [address] [phone] Anabel Garvin MD Severe asthma, unspecified whether complicated, unspecified whether persistent (Primary Dx); Stridor 10/15/2024 Telephone Pulmonology [facility] [address] [phone] Sandra Soriano MA 10/10/2024 Telephone Pulmonology [facility] [address] [phone] Sandra Soriano MA from Last 3 Months Medical History Medical History Date Comments Allergic rhinitis 07/14/2017 DX:Allergic rh initis Asthma 12/08/2016 DX:Asthma Asthma-chronic obstructive p ulmonary disease overlap syndrome ([facility] V24, [facility] V28) 04/16/2017 DX:Asthma-chronic obstructiv e pulmonary disease overlap syndrome (HCC) Gastroesophageal reflux disease 12/08/2016 DX:Gastroesophageal reflux disease Obstructive sleep apnea syndrome 04/16/2017 DX:Obstructive sleep apnea syndrome COPD (chronic obstructive pu lmonary disease) (CMS/HCC V24, CMS/HCC V28) 10/03/2017 DX:COPD (chronic o bstructive pulmonary disease) ([facility]) Social History Tobacco Use Types Packs/Day [...] Info) Description 01/01/2025 1:15 PM EDT Appointment [facility] CT Scan [address] [place] [phone] 01/01/2025 2:00 PM EDT Appointment [facility] CT Scan [address] [place] [phone] Health Maintenance Due Date Last Done Comments [...] age to complete this topic Meningococcal B Vaccine Aged Out No l onger eligible based on patient's age to complete [...] Resu lt from Last 3 Months Insurance [facility] [employer] Care Teams Sailor Relationship Specialty Start Date End Date Saúl Maier PA PCP - General Physician Computed Tomography Scanner Operator 12/09/24
== END 2024-12-30 09:20 | disposition home or self-care (01) ==
LOC: HO.HMCH 08:27
PROVIDERS: PCP Physician Assistant; Visit Provider Physician Assistant
DX: G40.909 Epilepsy, unspecified, not intractable, without status epilepticus (principal); C73 Malignant neoplasm of thyroid gland; E11.65 Type 2 diabetes mellitus with hyperglycemia; F33.1 Major depressive disorder, recurrent, moderate; J45.40 Moderate persistent asthma, uncomplicated

== ENCOUNTER → 2024-12-30 08:26 | Outpatient (BNVA) | payer OTHER, SELFPAY | PROVIDERS: PCP Physician Assistant; Visit Provider Physician Assistant | DX: G40.909 Epilepsy, unspecified, not intractable, without status epilepticus (principal); C73 Malignant neoplasm of thyroid gland; E11.65 Type 2 diabetes mellitus with hyperglycemia; J45.40 Moderate persistent asthma, uncomplicated; F33.1 Major depressive disorder, recurrent, moderate | CPT/HCPCS: 83036; 99212 ==

== ENCOUNTER 2025-01-12 15:23 | Outpatient (AMB) | payer OTHER, SELFPAY ==
[2025-01-12 15:25] VITALS: BP 114/66; PULSE 86; O2SAT 96; BMI 30.8
--- NOTE | 2025-01-12 15:25 | A.OFFVIS_ITS ---
Vital Signs 01/12/25 15:25 Height 5 ft Weight 157 lb 13.616 oz BMI 30.8 BP 114/66 Blood Pressure Location Rt brachial Position Sitting Pulse 86 Pulse Source Pulse Oximeter Pulse Oximetry (%) 96 Oxygen Delivery Method Room Air Intake Visit Reasons: 3 mo GERD Intake Note: ESTABLISHED PATIENT for mgmt of GERD + Constipation. Chief Complaint; C/O diarrhea and frequent loose stools despite stopping the laxative temporarily. Pt reports his GERD has remained stable. No additional sx or concerns at this time. Extrusion Line Operator Required: No Accompanied by: Self / Same As Patient Allergies cat dander [CATS] Allergy (Mild, Verified 01/12/25 15:26) GENERALIZED ALLERGY SYMPTOMS dog dander [DOGS] Allergy (Mild, Verified 01/12/25 15:26) GENERALIZED ALLERGY SYMPTOMS tree and shrub pollen [TREE] Allergy (Mild, Verified 01/12/25 15:26) GENERALIZED ALLERGY SYMPTOMS FROM [place] HPI HPI 3 mo GERD: Details: LAST VISIT: Barretts esophagus GERD (gastroesophageal reflux disease) Constipation Abdominal bloating Dysphagia Gastroparesis Schatzki's ring Plan Continue lansoprazole daily. Sucralfate at 14:00 and at bedtime. Avoid dietary triggers and late night snacking. Staying upright for minimum 3 hours after meals discussed with patient. Continue taking Linzess. Increase fluid intake and activity to promote better bowel motility. Long discussion with patient about dietary changes. Low FODMAP diet discussed with patient. Patient reports that he has list of food recommended as well as list of food to avoid at home. Patient was encouraged to look over again. Follow-up in the office in 3 months, sooner on as needed basis. He is agreeable to this plan and verbalizes understanding of instructions. He was given the opportunity to ask questions and all questions answered. ? TODAY'S VISIT: Is here today for follow-up. Patient reports that he has been doing better si nce last visit. His symptoms of acid reflux and epigastric pain are controlled. Patient is taking lansoprazole in the morning, sucralfate in the afternoon at bedtime. Patient reports occasional post prandial loose stools. No longer takes Linzess as he is not constipated anymore. Patient reports that he has frequent stools 3 to 4 times a day. Patient picked up Benefiber with pre and probiotics and will start taking it. Patient denies dyspepsia, dysphagia or odynophagia. Denies melena, hematochezia, unintentional weight loss or ribbon like stools. Patient just recently admitted for seizure, found to have abnormal EKG and was transferred to [facility] for cardiac catheterization. Cardiac catheterization was negative for any CAD. Patient denies any shortness of breath or chest pain with or without activity. [facility] Medical History Breakthrough seizure Cardiomyopathy Uvulitis Claustrophobia Takotsubo cardiomyopathy Schatzki's ring Gastritis Sleep apnea Diabetes Gastroparesis Migraine headache with aura Enlarged liver Postoperative hypothyroidism Thyroid cancer Vitamin D deficiency Multinodular thyroid Seizures ABPA (allergic bronchopulmonary aspergillosis) Seizures Asthma Surgical History S/P total thyroidectomy History of esophagogastroduodenoscopy (EGD) S/P removal of thyroid nodule History of cholecystectomy Family History Maternal Grandmother Emphysema, unspecified Father Diabetes Mother No problems noted. Paternal Grandfather Liver cancer Colon cancer Social History Household Members: Family Housing: Apartment Are you a primary care manager to a significant other at home: No Do you presently have visiting nurse or other home services: No Alcohol intake: never Comment: has poor balance Patient Tobacco Use Status: Never used Tobacco e-Cigarette/Vaping Use: Never Used Second Hand Smoke Exposure: No Substance Use Type: Marijuana Advance Directives Date on File: 05/20/23 service: No Current occupational status: disabled Current occupation: rt handed Cognitive needs: No Hearing needs: No Vision needs: No Review of Systems Const Denies weight gain and Denies weight loss ENT Reports no additional complaints, Denies dysphagia and Denies odynophagia Card Reports no additional complaints Resp Reports no additional complaints GI Denies abdominal pain, Denies belching, Denies melena, Reports bloating, Denies change in bowel habits, Denies dysphagia, Denies excessive flatus, Denies dyspepsia, Denies heartburn, Denies diarrhea, Reports loose stools, Denies nausea, Denies odynophagia and Denies vomiting Reports no additional complaints Musc Reports no additional complaints Neuro Reports no additional complaints Psych Reports no additional complaints Endo Reports no additional complaints Physical Exam Vital Signs: Last Vital Signs Pulse 86 01/12/25 15:25 BP 114/66 01/12/25 15:25 Pulse Ox 96 01/12/25 15:25 Oxygen Delivery Method Room Air 01/12/25 15:25 BMI result Body Mass Index 30.8 Const General: healthy appearing, no acute distress and well developed Nutritional Appearance: well nourished Orientation/consciousness: patient oriented x3 Resp Effort & Inspection: normal respiratory effort, able to speak in complete sentences, no tracheal deviation and symmetric chest movement Auscultation: clear to auscultation bilaterally Cardio Rate: regular rate GI Inspection: Yes normal to inspection and No distended Palpation (GI): Soft to palpation, not firm, nontender and No hepatosplenomegaly present Auscultation: normal bowel sounds General: Yes no CVA tenderness Back/Spine/Pelvis Back: no CVA tenderness Skin General skin exam: elasticity normal, turgor normal and dry skin Neuro General: patient oriented x3 Psych Appearance: grossly normal Mental Status: mental status grossly normal Assessment & Plan Assessment & Plan (1) Barretts esophagus: Code(s): K22.70 - Ramirez's esophagus without dysplasia Category: Medical Qualifiers: Ramirez's esophagus type: without dysplasia Qualified Code(s): K22.70 - Ramirez's esophagus without dysplasia (2) GERD (gastroesophageal reflux disease): Code(s): K21.9 - Gastro-esophageal reflux disease without esophagitis Category: Medical Qualifiers: Esophagitis presence: esophagitis presence not specified Qualified Code(s): K21.9 - Gastro-esophageal reflux disease without esophagitis (3) Constipation: Code(s): K59.00 - Constipation, unspecified Category: Medical Qualifiers: Constipation type: slow transit constipation Qualified Code(s): K59.01 - Slow transit constipation (4) Abdominal bloating: Code(s): R14.0 - Abdominal distension (gaseous) Category: Medical (5) Gastroparesis: Code(s): K31.84 - Gastroparesis Category: Medical (6) Schatzki's ring: Code(s): K22.2 - Esophageal obstruction Plan Patient will continue lansoprazole every morning half an hour before breakfast. Continue sucralfate in the afternoon and at bedtime. Avoid dietary triggers and late night snacking. Staying upright for minimum 3 hours after meals discussed with patient. Patient will start taking Benefiber 1-2 tablets every day to help him bulk his stool. Diagnosed with very mild gastroparesis, however patient was constipated when he had the test. Patient denies any melena, hematochezia, unintentional weight loss or ribbon like stools. Patient denies dyspepsia, dysphagia or odynophagia. Patient will return in the our office in 6 months. He will call us if he will have any GI concerns. He is agreeable to this plan and verbalizes understanding of instructions. He was given the opportunity to ask questions and all questions answered. Thank you for allowing me to participate in his care Coding Level of Care Code Est Pt Level 4 (14803) Complex EM visit Add On G2211 Diagnoses Ramirez's esophagus without dysplasia K22.70 Ramirez's esophagus type: without dysplasia Gastroesophageal reflux disease, unspecified whether esophagitis present K21.9 Esophagitis presence: esophagitis presence not specified Slow transit constipation K59.01 Constipation type: slow transit constipation Abdominal bloating R14.0 Gastroparesis K31.84 Schatzki's ring K22.2 Time Spent (min) 40 Comment 25 minutes spent with patient and additional 15 minutes spent reviewing his records
--- OUTSIDE RECORDS SUMMARY | 2025-01-12 18:10 | XMS_ITS | Clinical Summary ---
Author Organization [facility] Address [address] [place] [address] Phone Care Team Providers Care Assembler Flexible Leads Name Role Phone Saúl Maier Primary Care [...] Date COPD (chronic obstructive pu lmonary disease) ([facility] V24, [facility] V28) 10/03/2017 Allergic rhinitis 07/14/2017 Asthma-chronic obstructive p ulmonary disease overlap syndrome ([facility] V24, [facility] V28) 04/16/2017 Obstructive sleep apnea syndrome 04/16/2017 Asthma 12/08/2016 Gastroesophageal reflux disease 12/08/2016 Encounters Date Type Department Care Team Description 01/01/2025 12:55 PM EDT - 01/01/2025 11:59 PM EDT Hospital Encounter [facility] CT Scan [address] [place] [address] Unspecified asthma, uncomplicated Discharge Disposition: Home or Self Care 12/08/2024 Telephone Pulmonology [address] [phone] Anabel Garvin MD 10/23/2024 8:04 AM EST - 10/23/2024 11:59 PM EST Hospital Encounter [facility] Pulmonary [address] [place] [phone] Severe asthma, unspecified whether complicated, unspecified whether persistent Discharge Disposition: Home or Self Care 10/16/2024 3:00 PM EST Consult Pulmonology - [place] [address] [phone] Anabel Garvin MD Severe asthma, unspecified whether complicated, unspecified whether persistent (Primary Dx); Stridor 10/15/2024 Telephone Pulmonology [facility] [address] [phone] Sandra Soriano MA from Last 3 Months Medical History Medical History Date Comments Allergic rhinitis 07/14/2017 DX:Allergic rh initis Asthma 12/08/2016 DX:Asthma Asthma-chronic obstructive p ulmonary disease overlap syndrome ([facility] V24, [facility] V28) 04/16/2017 DX:Asthma-chronic obstructiv e pulmonary disease overlap syndrome (HCC) Gastroesophageal reflux disease 12/08/2016 DX:Gastroesophageal reflux disease Obstructive sleep apnea syndrome 04/16/2017 DX:Obstructive sleep apnea syndrome COPD (chronic obstructive pu lmonary disease) ([facility] V24, [facility] V28) 10/03/2017 DX:COPD (chronic o bstructive pulmonary disease) ([facility]) Social History Tobacco Use Types Packs/Day [...] Procedure Name Priority Date/Time Associated Diagnosis Comments CT CHEST WO CONTRAST Routine 01/01/2025 1:07 PM EDT Unspecified asthma, uncomplicated HC SPIROMETRY BRONCHODILATION RESPONSIVENESS PRE/POST BRONCHODILATOR ADMINISTRATION Routine 10/23/2024 9:10 AM EST Severe asthma, unspecified whether complicated, unspecified whether persistent from Last 3 Months Results * CT Chest wo Contrast (01/01/2025 1:07 PM EDT) Anatomical Region Laterality Modality Body Computed Tomogra phy 01/02/2025 10:0 8 AM EDT Impressions 01/02/2025 10:39 AM EDT Infectious/inflammatory bronchitis. ??No consolidative pneumonia or evidence of chronic interstitial lung disease. -------- FINAL REPORT -------- Dictated By: SYLVESTER IRVIN Dictated Date: 01/02/2025 10:08 ET Assigned Physician: SYLVESTER IRVIN Reviewed and Electronically Signed By: SYLVESTER IRVIN Signed Date: 01/02/2025 10:39 ET Workstation ID: [id number] Transcribed By: Self Edit Transcribed Date: 01/02/2025 10:08 ET Narrative 01/02/2025 10:39 AM EDT PROCEDURE: Chest CT INDICATION: Respiratory illness TECHNIQUE: Chest CT without contrast. Multi planar reformats were created and interpreted. The examination was performed utilizing dose reduction techniques. ??Total DLP 1451 COMPARISON: ??No priors available. FINDINGS: LUNGS/PLEURA: Central airways are patent. ??Diffuse bronchial wall thickening compatible with bronchitis. ??Biapical pleural-parenchymal scarring. ??Scattered regions of mucous plugging seen throughout the lungs, most pronounced in the right middle lobe. ??Subtle 4 mm groundglass nodules are seen along the right minor fissure in the middle lobe. ??No suspicious pulmonary nodules. ??No pleural effusion or pneumothorax. ??Expiratory images are similar compared to inspiratory images without evidence of air trapping. ??No honeycombing or evidence of pulmonary fibrosis. MEDIASTINUM: Thyroid gland is surgically absent. No mediastinal or hilar lymphadenopathy. Cardiac chambers are normal in size. No pericardial effusion. Esophagus is normal. CHEST WALL: No axillary adenopathy. ??Bilateral gynecomastia UPPER ABDOMEN:Cholecystectomy BONES: No acute fracture. Scattered degenerative changes seen throughout the bones. Procedure Note Sylvester Irvin MD - 01/02/2025 PROCEDURE: Chest CT INDICATION: Respiratory illness TECHNIQUE: Chest CT without contrast. Multi planar reformats were createdand interpreted. The examination was performed utilizing dose reductiontechniques. Total DLP 1451 COMPARISON: No priors available. FINDINGS: LUNGS/PLEURA: Central airways are patent. Diffuse bronchial wallthickening compatible with bronchitis. Biapical pleural-parenchymalscarring. Scattered regions of mucous plugging seen throughout the lungs,most pronounced in the right middle lobe. Subtle 4 mm groundglass nodulesare seen along the right minor fissure in the middle lobe. No suspiciouspulmonary nodules. No pleural effusion or pneumothorax. Expiratoryimages are similar compared to inspiratory images without evidence of airtrapping. No honeycombing or evidence of pulmonary fibrosis. MEDIASTINUM: Thyroid gland is surgically absent. No mediastinal or hilarlymphadenopathy. Cardiac chambers are normal in size. No pericardialeffusion. Esophagus is normal. CHEST WALL: No axillary adenopathy. Bilateral gynecomastia UPPER ABDOMEN:Cholecystectomy BONES: No acute fracture. Scattered degenerative changes seen throughoutthe bones. IMPRESSION: Infectious/inflammatory bronchitis. No consolidative pneumonia orevidence of chronic interstitial lung disease. -------- FINAL REPORT -------- Dictated By: SYLVESTER IRVIN Dictated Date: 01/02/2025 10:08 ET Assigned Physician: SYLVESTER IRVIN Reviewed and Electronically Signed By: SYLVESTER IRVIN Signed Date: 01/02/2025 10:39 ET Workstation ID: [id number] Transcribed By: Self Edit Transcribed Date: 01/02/2025 10:08 ET Anabel Garvin MD IMG CT PROCEDURES Final Re sult * Pulmonary function testing: Nitrogen Wash Out, [...] Resu lt from Last 3 Months Insurance [facility] PLAN Care Teams Assembler Flexible Leads Relationship Specialty Start Date End Date Saúl Maier PA PCP - General Physician Foundry Operator 12/09/24
--- OUTSIDE RECORDS SUMMARY | 2025-01-12 18:10 | XMS_ITS | Encounter Summary ---
Author Organization [facility] Address [address] [place] [address] Care Team Providers Care Nutritional Services Host Name Role Phone Saúl Maier Primary Care Provider Encounter Details Date Type Department Care Team (Late st Contact Info) Description 12/08/2024 Telephone [address] [phone] Anabel Garvin MD [address] [place] [address] Social History Tobacco Use Types Packs/Day Years [...] on filedocumented in this encounter Care Teams Nutritional Services Host Relationship Specialty Start Date End Date Saúl Maier PA PCP - General Physician Patient Intake Coordinator 12/09/24 documented as of this encounter
--- OUTSIDE RECORDS SUMMARY | 2025-01-12 18:10 | XMS_ITS | Clinical Summary ---
Author Organization [facility] Address [address] [place] [address] Care Team Providers Care Vat Skimmer Name Role Phone Saúl Maier Primary Care [...] Rinse mouth after use. 0 Active Tiotropium Plover Monohydrate (SPIRIVA RESPIMAT) 1.25 MCG/ACT Aero Soln [...] SCREENING 1999 BASELINE HEALTH EXAM 40-64 2019 BMI CHECK/ADVISE 09/17/2024 DEPRESSION SCREENING/FOLLOWUP 09/17/2024 SOCIAL NEEDS SCREENING 09/17/2024 INFLUENZA (Season Ended) 2025 Care Teams Vat Skimmer Relationship Specialty Start Date End Date Saúl Maier PCP - General Internal Medicine 03/06/19
--- OUTSIDE RECORDS SUMMARY | 2025-01-12 18:10 | XMS_ITS | Clinical Summary ---
Author Organization [facility] Address [address] [address] Care Team Providers Care Life Assurance Representative Name Role Phone Saúl Maier Primary Care [...] Vaccine (Season Ended) 2025 Insurance Care Teams Life Assurance Representative Relationship Specialty Start Date End Date Saúl Maier PA [address] [place] [address], [address] [place] [address] PCP - General Physician Wire Brush Maker 01/30/22
--- OUTSIDE RECORDS SUMMARY | 2025-01-12 18:10 | XMS_ITS ---
Author Name [facility] Unknown History of Medication Use Medication Directions Dispensed Refills Start Date End Date Stat pantoprazole (PROTONIX) 20 mg EC tablet TAKE 1 TABLET BY MOUTH EVERY DAY 04/10/2019 active tiotropium (Spiriva Respimat) 1.25 mcg/actuation inhalation spray Inhale 1 Puff into the lungs daily. 07/18/2017 active albuterol 2.5 mg /3 mL (0.083 %) nebulizer solution Take 1 Vial by nebulization every 6 hours. active albuterol HFA (PROAIR HFA ; PROVENTIL HFA ; VENTOLIN HFA) 90 mcg/actuation inhaler Inhale 2 Puffs into the lungs every 4 hours as needed. active atorvastatin (LIPITOR) 40 mg tablet Take 40 mg by mouth daily. active budesonide-formoteroL (SYMBICORT) 160-4.5 mcg/actuation inhaler Inhale 2 Puffs into the lungs 2 times daily. Rinse mouth after use. active fluticasone propionate (FLONASE) 50 mcg/actuation nasal spray 2 Sprays by Each Nare route daily. active levETIRAcetam (KEPPRA) 1,000 mg tablet Take 1,000 mg by mouth 2 times daily. active methylPREDNISolone (MEDROL) 4 mg tablet Take 4 mg by mouth daily. active montelukast (SINGULAIR) 10 mg tablet Take 10 mg by mouth daily. active Problems Problem Status Onset Date Problem Type Date of Resoluti on Source Obstructive sleep apnea syndrome active 2017-04-[address] COPD (chronic obstructive pulmonary disease) ([facility] V24, [facility] V28) active 2017-10-[address] [facility] Asthma active 2016-12-[address] [facility] AN Gastroesophageal reflux disease active 2016-12-[address] [facility] Allergic rhinitis active 2017-07-[address] [facility] Asthma-chronic obstructive pulmonary disease overlap syndrome ([facility] V24, [facility] V28) active 2017-04-[address] [facility]
--- OUTSIDE RECORDS SUMMARY | 2025-01-12 18:10 | XMS_ITS | Encounter Summary ---
Author Organization [facility] Address [address] [place] [address] Care Team Providers Care Internet Marketing Manager Name Role Phone Trav Greenberg Primary Care Provider Blessing Gilmore MD Primary Care Provider Saúl Lim Primary Care Provider Jackson diane Reason for Visit * Reason Comments E-prescribe Rx Request Encounter Details Date Type Department Care Team Description 02/14/2018 Refill Pulmonology - [place] [address] [facility] [address] [place] [address] Milly Barnes MD [address] [place] [address] E-prescribe Rx Request Social History [...] NO Patients current insurance carrier is: Payor: [employer] / Plan: [employer] $0 [id number] / Product Type: MEDICAID [id number] * Telephone Encounter - Tiffani Joshi - [...] NO Patients current insurance carrier is: Payor: [employer] / Plan: [employer] $0 [id number] / Product Type: MEDICAID [id number] documented in this encounter Plan of Treatment Not on file documented as of this encounter Visit Diagnoses Not on filedocumented in this encounter Care Teams Internet Marketing Manager Relationship Specialty Start Date End Date Trav Greenberg PCP - General Internal Medicine 07/13/17 09/04/18 Blessing Beltran MD PCP - General Family Practice 09/05/18 03/05/19 Saúl Maier PCP - General Internal Medicine 03/06/19 documented as of this encounter
--- OUTSIDE RECORDS SUMMARY | 2025-01-12 18:10 | XMS_ITS | Encounter Summary ---
Author Organization [facility] Address [address] [place] [address] Care Team Providers Care Employee Benefits Administrator Name Role Phone Saúl Maier Primary Care Provider Unavailab le Encounter Details Date Type Department Care Team Description 09/12/2019 Release of Information Medical Records [address] [place] [id number] Abstract, Provider Social History Tobacco Use Types [...] on filedocumented in this encounter Care Teams Employee Benefits Administrator Relationship Specialty Start Date End Date Saúl Maier PCP - General Internal Medicine 03/06/19 documented as of this encounter
--- OUTSIDE RECORDS SUMMARY | 2025-01-12 18:10 | XMS_ITS | Encounter Summary ---
Author Organization [facility] Address [address] [place] [address] Care Team Providers Care Information Technology Project Manager Name Role Phone Saúl Maier Primary Care Provider Unavailab le Reason for Visit * Reason Comments E-prescribe Rx Request Encounter Details Date Type Department Care Team Description 04/10/2019 Refill Pulmonology - [place] [address] [facility] [address] [place] [address] Milly Barnes MD [address] [place] [address] E-prescribe Rx Request Social History [...] NO Patients current insurance carrier is: Payor: [facility] / Plan: [facility] / Product Type: MEDICAID RISK documented in this encounter Plan of Treatment Not on file documented as of this encounter Visit Diagnoses Not on filedocumented in this encounter Care Teams Information Technology Project Manager Relationship Specialty Start Date End Date Saúl Maier PCP - General Internal Medicine 03/06/19 documented as of this encounter
== END 2025-01-12 15:42 | disposition home or self-care (01) ==
LOC: HO.HGI 15:23
PROVIDERS: PCP Physician Assistant; Visit Provider Nurse Practitioner Family
DX: K22.70 Barrett's esophagus without dysplasia (principal); K21.9 Gastro-esophageal reflux disease without esophagitis; K59.01 Slow transit constipation; R14.0 Abdominal distension (gaseous); K31.84 Gastroparesis; K22.2 Esophageal obstruction
CPT/HCPCS: 99214; G2211

== ENCOUNTER → 2025-01-12 15:23 | Outpatient (BNVA) | payer OTHER, SELFPAY | PROVIDERS: PCP Physician Assistant; Visit Provider Nurse Practitioner Family | DX: K21.9 Gastro-esophageal reflux disease without esophagitis (principal); K31.84 Gastroparesis; K22.2 Esophageal obstruction; K22.70 Barrett's esophagus without dysplasia; K59.01 Slow transit constipation; R14.0 Abdominal distension (gaseous) | CPT/HCPCS: 99212 ==

== ENCOUNTER → 2025-03-06 12:49 | Outpatient (REF) | payer OTHER, SELFPAY ==
--- OUTSIDE RECORDS SUMMARY | 2025-03-06 12:53 | XMS_ITS | Clinical Summary ---
Author Organization [facility] Facility Address [address] [address] Care Team Providers Care Commercial Lines Account Executive Name Role Phone Saúl Maier Primary Care Provider [phone] Allergies No known active allergies Medications acetaminophen [...] Vaccine (Season Ended) 2025 Insurance Care Teams Commercial Lines Account Executive Relationship Specialty Start Date End Date Saúl Maier PA [address] [place] [address], [address] [place] [address] PCP - General Physician Cost Accounting Manager 01/30/22
--- NOTE | 2025-03-06 12:55 | ECG_ITS ---
Test Reason : nstemmi Blood Pressure : */* mmHG Vent. Rate : 66 BPM Atrial Rate : 66 BPM P-R Int : 142 ms QRS Dur : 86 ms QT Int : 392 ms P-R-T Axes : 36 12 36 degrees QTcB Int : 410 ms Normal sinus rhythm Normal ECG When compared with ECG of 03-Dec-2024 11:55, Vent. rate has decreased by 41 bpm QRS axis Shifted right Criteria for Septal infarct are no longer Present T wave inversion no longer evident in Anterior leads QT has shortened Referred By: Abraham Askew Electronically Signed By: Serge Marroquin
== END ==
LOC: HO.CARD 12:49
PROVIDERS: Visit Provider Student in an Organized Health Care Education/Training Program
DX: I21.4 Non-ST elevation (NSTEMI) myocardial infarction (principal)
CPT/HCPCS: 93005

== ENCOUNTER → 2025-03-06 12:55 | Outpatient (BNV) | payer OTHER, SELFPAY | PROVIDERS: Visit Provider Internal Medicine Cardiovascular Disease | DX: I21.4 Non-ST elevation (NSTEMI) myocardial infarction (principal) | CPT/HCPCS: 93010 ==

== ENCOUNTER 2025-04-06 07:00 | Outpatient (RCR) | payer OTHER, SELFPAY ==
[2025-02-12 11:01] LABS: Glucose, Whole Blood 110 mg/dL (60-115)
[2025-02-12 11:01] LABS: Glucose, Whole Blood 114 mg/dL (60-115)
[2025-04-01 08:12] LABS: Glucose, Whole Blood 127 mg/dL (60-115)
== END 2025-05-15 06:33 | disposition home or self-care (01) ==
LOC: HO.CR 07:00
PROVIDERS: PCP Physician Assistant; Visit Provider Student in an Organized Health Care Education/Training Program
DX: I21.4 Non-ST elevation (NSTEMI) myocardial infarction (principal)
CPT/HCPCS: 82947; 93798

== ENCOUNTER → 2025-04-06 07:21 | Outpatient (BNV) | payer OTHER, SELFPAY | PROVIDERS: Emergency Provider Emergency Medicine; PCP Physician Assistant; Visit Provider Radiology Diagnostic Radiology | DX: R06.02 Shortness of breath (principal) | CPT/HCPCS: 71045 ==

== ENCOUNTER 2025-04-06 07:48 | Emergency (ER) | payer OTHER, SELFPAY ==
[2025-04-06] VITALS (11 sets, daily range): BP systolic 133–158; BP diastolic 60–88; PULSE 64–88; RESP 14–21; TEMP 36.9–37.1; O2SAT 92–99; BMI 20.7
--- NOTE | 2025-04-06 | ECG_ITS ---
Test Reason : seizure Blood Pressure : */* mmHG Vent. Rate : 70 BPM Atrial Rate : 70 BPM P-R Int : 140 ms QRS Dur : 84 ms QT Int : 378 ms P-R-T Axes : 14 2 27 degrees QTcB Int : 408 ms Poor data quality, interpretation may be adversely affected Normal sinus rhythm Normal ECG When compared with ECG of 06-Mar-2025 13:08, No significant change was found Referred By: Generic ED Physician Electronically Signed By: Serge Marroquin
--- NOTE | ~2025-04-06 | XR_ITS ---
EXAMINATION: XR CHEST 1 VIEW HISTORY: SOB COMPARISON: Comparison is made with the prior examination dated 11/01/2024. FINDINGS: A single AP portable view of the chest performed at 8:21 AM is submitted. The lungs are expanded and clear. There is no pleural effusion, pneumothorax, or pulmonary vascular congestion. The heart is normal in size. There is mild dextroscoliosis of the spine. XR/XR chest 1V IMPRESSION: No acute cardiopulmonary abnormality. Electronically signed by: Ramses Kerr MD 04/06/2025 08:37 AM EDT
[2025-04-06 07:55] LABS: Glucose, Whole Blood 116 mg/dL (60-115)
[2025-04-06] MEDS: diazePAM 10 MG/2 ML CARTRIDGE 5 MG IVPUSH (08:13)
[2025-04-06 08:15] LABS: MANUAL DIFF FLAG NO
[2025-04-06 08:16] LABS: Hematocrit 45.4 % (42.0-52.0); Hemoglobin 15.9 g/dl (14.0-18.0); Imm Gran Abs Auto 0.02 X10*3/uL (0.00-0.03); Imm Gran Pct Auto 0.3 % (0.0-0.4); Lymphocytes Absolute Auto 1.5 X10*3/uL (1.2-4.9); Mean Corpuscular HGB Conc 35.0 g/dl (31.0-36.0); Mean Corpuscular Hemoglobin 29.7 pg (27.0-33.0); Mean Corpuscular Volume 84.9 fL (80.0-98.0); NRBC Abs Auto 0.000 X10*3/uL (0.0-0.012); NRBC Pct Auto 0.0 /100WBC (0.0-0.2); Platelet Count 278 X10*3/uL (160-400); Red Blood Count 5.35 X10*6/uL (4.60-5.80); White Blood Count 6.6 X10*3/uL (4.8-10.8)
--- NOTE | 2025-04-06 08:17 | ED.GENADULT ---
HPI - General Adult General Chief complaint: Seizure Stated complaint: ? seizure Time Seen by Provider: 04/06/25 08:01 Source: patient Mode of arrival: ambulatory Limitations: no limitations History of Present Illness HPI narrative: This is a 44 years old the patient with a history of seizure disorder, hypertension, stress cardiomyopathy with normal coronary artery while having stress test had possible episode of lethargy weakness possible seizure versus syncope. Patient reported he vomited this morning but he was able to take the oxcarbazime. Onset (ago): minute(s) Radiation: non-radiation Severity: mild Exacerbating factors: none Associated symptoms: denies other symptoms Related Data Home Medications ?Medication ?Instructions ?Recorded ?Confirmed clobazam 10 mg tablet 5 mg PO BID 12/11/23 12/30/24 hydroxyzine HCl 25 mg tablet 25 mg PO BEDTIME PRN Anxiety 06/11/24 12/30/24 levothyroxine 200 mcg tablet 200 mcg PO DAILY@0600 12/03/24 12/30/24 (Synthroid) levothyroxine 25 mcg tablet 12.5 mcg PO DAILY@0600 12/03/24 12/30/24 (Synthroid) lisinopril 10 mg tablet 10 mg PO DAILY 12/03/24 12/30/24 oxcarbazepine 600 mg tablet 600 mg PO BID 12/03/24 12/30/24 sertraline 100 mg tablet 100 mg PO BEDTIME 12/03/24 12/30/24 sucralfate 1 gram tablet 1 g PO DAILY 12/03/24 12/30/24 atorvastatin 80 mg tablet 80 mg PO DAILY 12/19/24 12/30/24 carvedilol 6.25 mg tablet 6.25 mg PO BID 12/19/24 12/30/24 dapagliflozin propanediol 10 mg 10 mg PO DAILY 12/19/24 12/30/24 tablet (Farxiga) lacosamide 150 mg tablet mg PO 12/19/24 12/30/24 Previous Rx's ?Medication ?Instructions ?Recorded Sharps container #1 ea 12/18/22 aspirin 81 mg tablet,delayed 81 mg PO DAILY 90 days #90 tabs 01/03/23 release montelukast 10 mg tablet 10 mg PO BEDTIME 90 days #90 tabs 03/12/24 nystatin 100,000 unit/mL oral 5 ml PO DAILY PRN thrush 30 days 07/09/24 suspension #200 mL theophylline 400 mg 200 mg (1/2 x 400 mg) PO DAILY #45 08/18/24 tablet,extended release 24 hr tabs albuterol 90 mcg-budesonide 80 2 inh inhalation TID PRN shortness 09/22/24 mcg/actuation HFA aerosol inhaler of breath #10.7 grams (Airsupra) Ventolin HFA 90 mcg/actuation 2 puff PO Q6H PRN for dyspnea #3 ea 12/29/24 aerosol inhaler (albuterol sulfate) cholecalciferol (vitamin D3) 50 100 mcg (2 x 50 mcg (2,000 unit)) 02/01/25 mcg (2,000 unit) capsule PO DAILY 90 days #180 caps metformin 500 mg tablet,extended 500 mg PO BEDTIME #90 tabs 02/08/25 release 24 hr lansoprazole 30 mg capsule,delayed 30 mg PO DAILY #90 caps 03/16/25 release blood sugar diagnostic (FreeStyle #100 ea 04/02/25 Lite Strips) blood-glucose meter (FreeStyle #1 ea 04/02/25 Lite Meter kit) lancets 28 gauge (FreeStyle #100 ea 04/02/25 Lancets) Allergies Allergy/AdvReac Type Severity Reaction Status Date / Time cat dander (CATS) Allergy Mild GENERALIZED Verified 04/06/25 07:56 ALLERGY SYMPTOMS dog dander (DOGS) Allergy Mild GENERALIZED Verified 04/06/25 07:56 ALLERGY SYMPTOMS tree and shrub pollen (TREE) Allergy Mild GENERALIZED Verified 04/06/25 07:56 ALLERGY SYMPTOMS FROM PINE TREES Review of Systems Constitutional: Constitutional: Reports no additional constitutional complaints Eyes: Eyes: Reports no additional eye complaints Cardiovascular: Cardiovascular: Reports no additional cardiovascular complaints FOR[facility]LY [facility], [facility] Past Medical History Attestation statement: The following information was validated with the patient. Medical History Breakthrough seizure Cardiomyopathy Uvulitis Claustrophobia Takotsubo cardiomyopathy Schatzki's ring Gastritis Sleep apnea Diabetes Gastroparesis Migraine headache with aura Enlarged liver Postoperative hypothyroidism Thyroid cancer Vitamin D deficiency Multinodular thyroid Seizures ABPA (allergic bronchopulmonary aspergillosis) Seizures Asthma Surgical History S/P total thyroidectomy History of esophagogastroduodenoscopy (EGD) S/P removal of thyroid nodule History of cholecystectomy Family History Family History Maternal Grandmother Emphysema, unspecified Father Diabetes Mother No problems noted. Paternal Grandfather Liver cancer Colon cancer Social History Social History Household Members: Family Housing: Apartment Are you a primary cardiac care nurse to a significant other at home: No Do you presently have visiting nurse or other home services: No Alcohol intake: never Comment: has poor balance Patient Tobacco Use Status: Never used Tobacco Smoked in Last 30 Days: No e-Cigarette/Vaping Use: Never Used Second Hand Smoke Exposure: No Use of substances other than those prescribed or required for medical reasons: No Substance Use Type: Marijuana Advance Directives: No Advance Directives Information Provided: Yes Advance Directives Date on File: 05/20/23 Do you have a plan to hurt others: No Plan service: No Current occupational status: disabled Current occupation: rt handed Cognitive needs: No Hearing needs: No Vision needs: No Physical Exam ED Exam Exam: No acute distress Vital Signs: Vital Signs - 24 hr 04/06/25 07:55 04/06/25 08:00 04/06/25 08:13 Temperature 98.6 F Pulse Rate 76 77 71 Respiratory Rate 17 18 17 Blood Pressure 146/77 H 150/84 H 141/60 H Pulse Oximetry 94 96 92 Oxygen Delivery Method Room Air Room Air Room Air 04/06/25 08:45 04/06/25 09:05 04/06/25 09:49 Temperature 98.7 F Pulse Rate 75 78 70 Respiratory Rate 14 17 21 H Blood Pressure 133/88 155/82 H 158/77 H Pulse Oximetry 97 97 95 Oxygen Delivery Method Room Air Room Air Room Air 04/06/25 11:12 04/06/25 11:35 04/06/25 13:18 Temperature 98.5 F 98.5 F Pulse Rate 70 64 88 Respiratory Rate 19 16 20 Blood Pressure 139/85 135/78 Pulse Oximetry 94 98 Oxygen Delivery Method Room Air Room Air 04/06/25 14:10 04/06/25 14:20 Temperature 98.6 F 98.6 F Pulse Rate 88 88 Respiratory Rate 17 17 Blood Pressure 135/79 135/79 Pulse Oximetry 97 97 Oxygen Delivery Method Room Air Room Air BMI result Body Mass Index 20.7 Const General: cooperative Nutritional Appearance: average body habitus Orientation/consciousness: patient oriented x3 HENMT Head: Yes normal to inspection Ears: hearing grossly normal bilaterally General nose exam: Normal external nose present Face and sinus: Yes normal facial exam Neck Neck: Yes normal visual inspection Chest Chest palpation & inspection: normal inspection of the chest Resp Effort & Inspection: normal respiratory effort Auscultation: clear to auscultation bilaterally Cardio Jugular venous distension: no JVD Rate: regular rate Rhythm: regular rhythm GI Inspection: Yes normal to inspection Palpation (GI): Soft to palpation, not firm and nontender Auscultation: normal bowel sounds Skin General skin exam: no rashes or lesions noted and elasticity normal Neuro General: patient oriented x3 Course Reevaluation(s) Reevaluation #1: On re-examination the patient is doing much better asymptomatic, the patient was monitor in the emergency department for almost 6 hour remained in sinus rhythm. I do not think he had a seizure he was no postictal .lactic normal.I do not think he had a cardiac event he he had clean coronary by CATH and there was no loss of consciousness. Time: 13:54 Medications Administered Discontinued Medications Generic Name Dose Route Start Last Admin Trade Name Freq PRN Reason Stop Dose Admin Albuterol Sulfate 2.5 mg/ 0 mg 04/06/25 11:29 04/06/25 11:34 Albuterol/Ipratropium 3 ml INHALE 04/06/25 11:30 5 dose ONCE ONE Administration Diazepam 5 mg 04/06/25 08:05 04/06/25 08:13 Diazepam 10 Mg/2 Ml Cartridge IVPUSH 04/06/25 08:06 5 mg STAT STA Administration Sodium Chloride 1,000 mls @ 999 mls/hr 04/06/25 08:15 04/06/25 09:09 Ns IVCONT 04/06/25 09:15 Infused .Q1H1M FREDY Infusion Medical Decision Making Medical Decision Making MDM Narrative: The patient was brought here from cardiac unit because while having a stress test became weak possible seizure we will check EKG labs high sensitive troponin. 13:55 he is asymptomatic I want to go home please I feel good I got anxious ,I have severe anxiety he was monitored on for 6 hour no arrhythmia seen, I do not think with the patient had seizure because he was no postictal no incontinent urine tongue biting., no syncope. Labs okay I think he can be discharged home. Differential Diagnosis Differential Diagnoses: The differential diagnosis associated with the presentation includes Seizure/cardiac arrhythmia/anxiety/dehydration Admission/Observation Consideration of admission/observation: Escalation of care including admission/observation considered Lab Data MDM Lab Attestation statement: I reviewed the patient's lab results. 04/06/25 08:10 04/06/25 08:10 Labs: Lab Results 04/06/25 04/06/25 Range/Units 07:52 08:10 WBC 6.6 (4.8-10.8) X10*3/uL RBC 5.35 (4.60-5.80) X10*6/uL Hgb 15.9 (14.0-18.0) g/dl Hct 45.4 (42.0-52.0) % MCV 84.9 (80.0-98.0) fL MCH 29.7 (27.0-33.0) pg MCHC 35.0 (31.0-36.0) g/dl RDW 12.7 (11.0-16.0) % Plt Count 278 D (160-400) X10*3/uL MPV 8.7 L (9.4-12.4) fL Immature Gran % (Auto) 0.3 (0.0-0.4) % Neut % (Auto) 66.0 (45-73) % Lymph % (Auto) 23.2 (20-40) % Ransom % (Auto) 6.9 (2-11) % Eos % (Auto) 3.0 (0-4) % Baso % (Auto) 0.6 (0-2) % Lymph # (Auto) 1.5 (1.2-4.9) X10*3/uL Ransom # (Auto) 0.5 (0.1-1.2) X10*3/uL Eos # (Auto) 0.2 (0.0-0.4) X10*3/uL Baso # (Auto) 0.0 (0.0-0.2) X10*3/uL Abs Immat Gran (auto) 0.02 (0.00-0.03) X10*3/uL Absolute Neuts (auto) 4.3 (2.0-8.3) x10*3/uL Absolute Nucleated RBC 0.000 (0.0-0.012) X10*3/uL Nucleated RBC % (auto) 0.0 (0.0-0.2) /100WBC Sodium 135 (135-145) mmol/L Potassium 4.7 (3.3-5.1) mmol/L Chloride 107 (96-108) mmol/L Carbon Dioxide 20 L (22-29) mmol/L Anion Gap 13 (12-20) BUN 7 L (9-16) mg/dL Creatinine 0.63 (0.5-1.4) mg/dL Estim Creat Clear Calc 125.6 Estimated GFR > 60 POC Glucose 116 H (60-115) mg/dL Random Glucose 105 (60-115) mg/dL Lactic Acid 1.7 (0.5-2.0) mmol/L Calcium 9.0 (8.4-10.2) mg/dL Magnesium 1.7 (1.6-2.6) mg/dL Total Bilirubin 0.2 (0.0-1.0) mg/dL AST 21 (5-37) U/L ALT 25 (0-40) U/L Alkaline Phosphatase 90 (39-117) U/L Troponin I High Sens < 2.7 D (<3.5-35.0) ng/L Total Protein 7.1 (6.5-8.0) g/dL Albumin 4.5 (3.5-5.0) g/dL Independent Interpretation I performed an independent interpretation of an: EKG Interpretation: EKG shows sinus rhythm rate [address]-T changes the EKG was reviewed interpreted by me External Record Review External record reviewed: Inpatient record Chronic Conditions Seizure disorder Discharge Plan Discharge Clinical Impression: Weakness, Anxiety Patient Disposition: Home, Self-Care Instructions: Weakness (ED) Additional Instructions: Follow-up with your primary care physician call and make an appointment today return to the emergency room if worse Prescriptions: No Action (DME) Sharps container See Rx Instructions .Route .MEDSUPPLY Qty: 1 0RF Rx Instructions: As directed aspirin 81 mg tablet,delayed release (DR/EC) 81 mg PO DAILY 90 Days Qty: 90 2RF theophylline 400 mg tablet extended release 24 hr 200 mg PO DAILY Qty: 45 2RF albuterol sulfate [Ventolin HFA] 90 mcg/actuation HFA aerosol inhaler 2 puff PO Q6H PRN (Reason: for dyspnea) Qty: 3 6RF cholecalciferol (vitamin D3) 50 mcg (2,000 unit) capsule 100 mcg PO DAILY 90 Days Qty: 180 2RF metformin 500 mg tablet extended release 24 hr 500 mg PO BEDTIME Qty: 90 2RF lansoprazole 30 mg capsule,delayed release(DR/EC) 30 mg PO DAILY Qty: 90 1RF (DME) FreeStyle Lite Strips Strip See Rx Instructions .Route Qty: 100 0RF Rx Instructions: As directed- daily (DME) blood-glucose meter [FreeStyle Lite Meter] Kit See Rx Instructions .Route Qty: 1 0RF Rx Instructions: As directed- once daily (DME) lancets [FreeStyle Lancets] 28 gauge misc See Rx Instructions .Route Qty: 100 0RF Rx Instructions: As directed- daily levothyroxine [Synthroid] 25 mcg tablet 12.5 mcg PO DAILY@0600 Rx Instructions: TAKE HALF TABLET DAILY ALONG WITH YOUR 200 MCG TABLET ON AN EMPTY STOMACH ONCE DAILY. levothyroxine [Synthroid] 200 mcg tablet 200 mcg PO DAILY@0600 oxcarbazepine 600 mg tablet 600 mg PO BID sertraline 100 mg tablet 100 mg PO BEDTIME lisinopril 10 mg tablet 10 mg PO DAILY sucralfate 1 gram tablet 1 g PO DAILY montelukast 10 mg tablet 10 mg PO BEDTIME 90 Days Qty: 90 2RF clobazam 10 mg tablet 5 mg PO BID hydroxyzine HCl 25 mg tablet 25 mg PO BEDTIME PRN (Reason: Anxiety) nystatin 100,000 unit/mL suspension 5 ml PO DAILY PRN (Reason: thrush) 30 Days Qty: 200 6RF Rx Instructions: administer 1/2 of dose in each side of the mouth. SWISH AND SPIT Airsupra 90-80 mcg/actuation HFA aerosol inhaler 2 inh inhalation TID PRN (Reason: shortness of breath) Qty: 10.7 6RF carvedilol 6.25 mg tablet 6.25 mg PO BID atorvastatin 80 mg tablet 80 mg PO DAILY dapagliflozin propanediol [Farxiga] 10 mg tablet 10 mg PO DAILY lacosamide 150 mg tablet PO Interventions: ED Discharge Assessment Last Done: 04/06/25 14:20 Discharge Date/Time: 04/06/25 14:21 Print Language: Latvian
--- NOTE | 2025-04-06 08:20 | PC.NURSE ---
pt presents to the ED as an outpatient response s/p attempting to complete stress test on bike. hx cardiomyopathy/NSTEMI. staff noted patient to have questionable seizure like activity while attempting to complete stress test at cardiac rehab as he was found altered/lethargic/leaning up against the wall. upon ED arrival - patient seemingly post ictal/lethargic s/p event. alert and oriented to self. answers questions but slow to respond. minimal eye contact. otherwise follows commands appropriately. no incontinence noted. trauma noted to left side of his mouth - bleeding controlled. hx epilepsy - compliant w/ medication. pt reports he was feeling off this weekend and was unable to hold medication down this am - had one episode of vomiting so double dosed his oxcarbazepine. 18gIV in the right forearm - labs obtained/sent to lab. ekg performed by tech. IVF/medication administered per provider order. seizure precautions in place for safety precautions. patient on RA w/o difficulty. no sob/wob noted. respirations even/unlabored. plan of care ongoing. call randle placed within reach.
--- OUTSIDE RECORDS SUMMARY | 2025-04-06 08:30 | XMS_ITS ---
Author Name [facility] Organization Unknown History of Medication Use Medication Directions Dispensed Refills Start Date End Date Stat ipratropium-albuteroL (DUONEB) 0.5-2.5 mg/3 mL nebulizer solution Take 3 mL by nebulization 1 (one) time each day. 02/23/2025 active sertraline (ZOLOFT) 25 mg tablet PLEASE SEE ATTACHED FOR DETAILED DIRECTIONS 01/09/2025 active carvediloL (COREG) 6.25 mg tablet Take 1 tablet (6.25 mg total) by mouth 2 (two) times a day. 12/08/2024 active OXcarbazepine (TRILEPTAL) 300 mg tablet Take 1 tablet (300 mg total) by mouth 2 (two) times a day. 12/08/2024 active lansoprazole (PREVACID) [address] capsule Take 1 capsule (30 mg total) by mouth 1 (one) time each day. 12/04/2024 active levothyroxine (SYNTHROID, LEVOTHROID) 175 mcg tablet 0.2 mcg. 03/18/2022 active lisinopriL (PRINIVIL,ZESTRIL) 10 mg tablet Take 1 tablet (10 mg total) by mouth 1 (one) time each day. 03/15/2022 active theophylline (UNIPHYL) 400 mg 24 hr tablet Take 1 tablet (400 mg total) by mouth 1 (one) time each day. 10/26/2021 active pantoprazole (PROTONIX) 20 mg EC tablet TAKE [...] lungs every 4 hours as needed. active albuterol-budesonide (AIRSUPRA) 90-80 mcg/actuation inhaler Inhale 2 puffs by mouth 2 (two) times daily morning and afternoon. active atorvastatin (LIPITOR) 40 mg tablet Take 40 mg by mouth daily. active budesonide-formoteroL (SYMBICORT) 160-4.5 mcg/actuation inhaler Inhale 2 Puffs into the lungs 2 times daily. Rinse mouth after use. active calcium carbonate (TUMS) 500 mg (200 mg elemental calcium) chewable tablet Chew 1 tablet (500 mg total) 1 (one) time each day. active cholecalciferol (VITAMIN D-3) 50 mcg (2,000 unit) capsule TAKE 2 CAPSULES BY MOUTH EVERY DAY FOR 90 DAYS active cloBAZam (ONFI) 10 mg tablet Take 1 tablet (10 mg total) by mouth. active dupilumab (Dupixent Syringe) 300 mg/2 mL syringe Inject 2 mL every 2 weeks by subcutaneous route. active fluticasone propionate (FLONASE) 50 mcg/actuation nasal spray 2 Sprays by Each Nare route daily. active lacosamide (VIMPAT) 200 mg tablet tablet Take 1 tablet (200 mg total) by mouth 2 (two) times a day. active levETIRAcetam (KEPPRA) 1,000 mg tablet Take 1,000 mg by mouth 2 times daily. active metFORMIN XR (GLUCOPHAGE-XR) 500 mg 24 hr tablet Take 1 tablet (500 mg total) by mouth at bedtime. active methylPREDNISolone (MEDROL) 4 mg tablet Take 4 mg by mouth daily. active montelukast (SINGULAIR) 10 mg tablet Take 10 mg by mouth daily. active nystatin (MYCOSTATIN) 100,000 unit/mL suspension Swish and swallow 4 (four) times a day. active Allergies Allergen Reaction Severity Comment Documented Date Source Statu s TREE AND SHRUB POLLEN 10/16/2024 [facility] active DOG DANDER [facility] Problems Problem Status Onset Date Problem Type Date of Resoluti on Source Gastroesophageal reflux disease active 2016-12-08 ProblemAct [facility] Asthma-chronic obstructive pulmonary disease overlap syndrome ([facility] V24, [facility] V28) active 2017-04-16 ProblemAct [facility] Asthma active 2016-12-08 ProblemAct [facility] Allergic rhinitis active 2017-07-14 ProblemAct [facility] Obstructive sleep apnea syndrome active 2017-04-16 ProblemAct [facility] COPD (chronic obstructive pulmonary disease) ([facility] V24, [facility] V28) active 2017-10-03 ProblemAct [facility] Encounters Encounter Type Encounter Reason Primary Diagnosis Location Date Ambulatory Unspecified asthma, uncomplicated Unspecified asthma, uncomplicated [facility] 02/23/2025 Care Team Organization Name Specialty Phone Email Start Date End Da te [facility] 02/24/2025 [facility] 02/24/2025
--- OUTSIDE RECORDS SUMMARY | 2025-04-06 08:30 | XMS_ITS | Encounter Summary ---
Author Organization [facility] Address [address] [place] [address] Care Team Providers Care Driver'S License Examiner Name Role Phone Saúl Maier Primary Care Provider Unavailab le Encounter Details Date Type Department Care Team Description 09/12/2019 Release of Information Medical Records [address] [place] [id number] Abstract, Provider Social History Tobacco Use Types [...] on filedocumented in this encounter Care Teams Driver'S License Examiner Relationship Specialty Start Date End Date Saúl Maier PCP - General Internal Medicine 03/06/19 documented as of this encounter
--- OUTSIDE RECORDS SUMMARY | 2025-04-06 08:31 | XMS_ITS | Clinical Summary ---
Author Organization [facility] Facility Address [address] [address] Care Team Providers Care Clinical Services Specialist Name Role Phone Saúl Maier Primary Care Provider [phone] Allergies No known active allergies Medications acetaminophen [...] of 2 - PCV) 11/18/1998 Influenza Vaccine (#1) 2025 Insurance Care Teams Clinical Services Specialist Relationship Specialty Start Date End Date Saúl Maier PA [address] [place] [address], [address] [place] [address] PCP - General Physician Drying Rack Changer 01/30/22
--- OUTSIDE RECORDS SUMMARY | 2025-04-06 08:31 | XMS_ITS | Data Portability ---
Author Organization [place] [facility], Allergy Address [address] [address] Care Team Providers Care Training Manager Name Role Phone NOHEMI THORNE Primary Care Provider [phone] Assessment Encounter Date Assessment Date Assessment LastModified by Organization Details LastModified Time 02/16/2025 02/16/2025 Patient has biphasic wheezing with crackles during late phase exhalation. A fiberoptic examination of his larynx was performed. During his breathing cycle his vocal cords were appropriately open and he continued to have the abnormal breath sounds, wheezing. I do not believe he has paradoxical vocal fold movement. Defer to pulmonary to continue management of his asthma. A clear view of his upper trachea was obtained during the fiberoptic exam and there was no subglottic stenosis or tracheal narrowing that I could appreciate. Possibility a bronchoscopy could provide additional value for the bronchi would be deferred to the pulmonology team [email or web address] Not available 02/16/2025 11:16:10 Plan of Treatment Reminders Order Date Submit Date Provider Last Modified By Organization Details Last Modified Time Details Appointments None record ed. Lab None record ed. Referral None record ed. Procedures None record ed. Surgeries None record ed. Imaging None record ed. Medication Orders None record ed. Patient TargetsNo targets recorded. Patient InstructionsNo instructions recorded. Reason for Referral None Reported. 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 [id number] 110082 Active 2016 [facility] MD [address] [facility] [place], [place], [address] , [place] [facility] [place] 5 12:50:26 Obstructi ve sleep apnea syndrome 98753337 Active 2016 [facility]YLE MD [address] [facility] [place], [place], [place], [address] , [place] [facility] [place] 5 12:50:26 Allergic rhinitis 81601044 Active 2016 JOHN KYLE MD [address] [facility] [place] [address], [place], [address] , [place] [facility] [place] 5 12:50:26 Chronic obstructi ve pulmonary disease 81701406 Active 2017 JOHN KYLE MD 100 [facility],[place] [address], [place], [address] , [place] [facility] 5 12:50:26 Stomatiti s 66614996 Active 2022 Oral thrush; Note: Date Diagnosed : 06/19/2023 10:39 AM (B37.0) Not Available [facility] 4 03:21:21 Candidias is of mouth 07549737 Active 2022 Oral thrush; Note: Date Diagnosed : 06/19/2023 10:39 AM (B37.0) Not Available [facility] 4 03:21:21 Sensorine ural hearing loss 20565977 Active 2022 Sensorine ural hearing loss, unilatera l, right ear, with unrestric tran hearing on the contralat eral side; Note: Date Diagnosed : 06/19/2023 10:45 AM (H90.41) Not Available [facility] 4 03:21:21 Dysphagia 56611543 Active 2022 Dysphagia , unspecifi ed; Note: Date Diagnosed : 06/19/2023 10:39 AM (R13.10) Not Available [facility] 4 03:21:21 Uncomplic ated moderate persisten t asthma 220178981 Active 2024 JOHN KYLE MD [address] [place] [address], [facility] [place] [place], [address] , [facility] 5 11:14:01 Problem Notes None recorded. Procedures Surgical History Date Name Laterality Status Provider Name and Address Organization Details Recorded Time 02/16/2025 FOL_DP completed JOHN KYLE MD [address] [place] [address], [place], [address], [facility] 02/06/2025 13:02:33 Imaging Results None recorded. Procedure Notes None recorded. Medical Equipment None Reported. Allergies Allergen ID Allergen Name Allergen Category Reaction Reaction Severity Criticality Documentation Date Start Date Code Code System Note Provider Name and Address Organization Details Recorded Time 716243 Canis lupus familiari s extract environme nt Not available Not available Not available 01/29/20242024 50960 4 RxNorm JOHN KYLE MD [address] [place] [address], [place], [address], [facility] 5 12:50:15 883468 cat dander environme nt other Not available Not available 01/29/2024 62703 UNK React ion: Unkno wn; Not Available [facility] 4 01:25:23 Medications Name Sig Start Date Stop Date Status Note LastModified by Organization Details LastModified Time atorvasta tin 40 mg tablet TAKE 1 TABLET BY MOUTH AT BEDTIME 02/16 completed Not Available Not Available Not Available levothyro xine 175 mcg tablet active Medicati on ID: [id number] B rand Name: levothyr oxine Se nd Method: E-Prescr ibed Sub s Allowed: subs OK Medic ationGen ericName : levothyr oxine Not Available Not Available Not Available atorvasta tin 80 mg tablet TAKE 1 TABLET BY MOUTH EVERY DAY AT BEDTIME. active Not Available Not Available No t Available nystatin 100,000 unit/mL oral suspensio n PLEASE SEE ATTACHED FOR DETAILED DIRECTIO NS active Not Available Not Available No t Available carvedilo l 6.25 mg tablet TAKE 1 TABLET BY MOUTH TWO TIMES A DAY. active Not Available Not Available No t Available prednison e 10 mg tablet TAKE 4 TABS DAILY FOR 5 DAYS, THEN GO DOWN BY 1 TAB EVERY 5 DAYS DIRECTED active Not Available Not Available No t Available Carafate 100 mg/mL oral suspensio n TAKE 10 MLS BY MOUTH BEDTIME PLEASE TAKE IT AT BEDTIME 02/16 completed Not Available Not Available Not Available albuterol sulfate 2.5 mg/3 mL (0.083 %) solution for nebulizat ion active Not Available Not Available Not Available theophyll ine ER 400 mg tablet,ex tended release 24 hr TAKE 1/2 TAB BY MOUTH EVERY DAY active Not Available Not Available No t Available Synthroid 200 mcg tablet TAKE 1 TABLET BY MOUTH EVERY DAY active Not Available Not Available No t Available sucralfat e 1 gram tablet TAKE 1 TABLET BY MOUTH TWICE A DAY 02/16 completed Not Available Not Available Not Available prednison e 20 mg tablet TAKE 2 TABS BY MOUTH DAILY active Not Available Not Available No t Available sertralin e 100 mg tablet TAKE 1 TABLET BY MOUTH EVERY DAY active Not Available Not Available No t Available methylpre dnisolone 4 mg tablet active Not Available Not Available Not Available hydroxyzi ne HCl 50 mg tablet TAKE 1 TABLET DAILY AT BEDTIME FOR SLEEP/AN XIETY active Not Available Not Available No t Available oxcarbaze pine 300 mg tablet TAKE 1 TABLET BY MOUTH TWICE A DAY active Not Available Not Available No t Available divalproe x 500 mg tablet,de layed release active Medicati on ID: [id number] B rand Name: divalpro ex Send Method: E-Prescr ibed Sub s Allowed: subs OK Medic ationGen ericName : divalpro ex Not Available Not Available Not Available omeprazol e 40 mg capsule,d elayed release TAKE 1 CAPSULE BY MOUTH TWICE A DAY active Not Available Not Available No t Available carvedilo l 3.125 mg tablet TAKE 1 TABLET BY MOUTH 2 TIMES A DAY active Not Available Not Available No t Available pantopraz ole 20 mg tablet,de layed release 2018 active Not Available Not Available Not Avai lable amoxicill in 400 mg-potass ium clavulana te 57 mg/5 mL oral suspensio n TAKE 10 ML ORALLY 2 TIMES A DAY 02/16 completed Not Available Not Available Not Available Synthroid 25 mcg tablet TAKE HALF TABLET DAILY ALONG WITH YOUR 200 MCG TABLET ON AN EMPTY STOMACH ONCE DAILY active Not Available Not Available No t Available colesevel am 625 mg tablet TAKE 2 TABLETS BY MOUTH TWICE A DAY active Not Available Not Available No t Available doxycycli ne monohydra te 100 mg capsule TAKE 1 CAPSULE ORALLY 2 TIMES A DAY active Not Available Not Available No t Available lisinopri l 10 mg tablet TAKE 1 TABLET BY MOUTH DAILY active Not Available Not Available No t Available lansopraz ole 30 mg capsule,d elayed release TAKE 1 CAPSULE BY MOUTH EVERY DAY active Not Available Not Available No t Available sertralin e 25 mg tablet PLEASE SEE ATTACHED FOR DETAILED DIRECTIO NS 02/16 completed Not Available Not Available Not Available oxcarbaze pine 600 mg tablet TAKE 1 TABLET BY MOUTH TWICE A DAY FOR 90 DAYS active Not Available Not Available No t Available monteluka st 10 mg tablet TAKE 1 TABLET BY MOUTH EVERYDAY AT BEDTIME active Not Available Not Available No t Available hydroxyzi ne HCl 25 mg tablet TAKE 1 TABLET DAILY AT BEDTIME FOR SLEEP/AN XIETY active Not Available Not Available No t Available levofloxa jacey 750 mg tablet TAKE 1 TABLET BY MOUTH EVERY DAY active Not Available Not Available No t Available fluticaso ne propionat e 50 mcg/actua tion nasal spray,rik pension active Not Available Not Available Not Available metformin ER 500 mg tablet,ex tended release 24 hr TAKE 1 TABLET BY MOUTH EVERYDAY AT BEDTIME active Not Available Not Available No t Available Ventolin HFA 90 mcg/actua tion aerosol inhaler TAKE 2 PUFFS ORALLY EVERY 6 HOURS NEEDED FOR FOR DYSPNEA active Not Available Not Available No t Available levetirac etam 1,000 mg tablet active Not Available Not Available Not Available budesonid e-formote rol HFA 160 mcg-4.5 mcg/actua tion aerosol inhaler active Not Available Not Available Not Available cholecalc iferol (vitamin D3) 50 mcg (2,000 unit) capsule TAKE 2 CAPSULES BY MOUTH EVERY DAY FOR 90 DAYS active Not Available Not Available No t Available lacosamid e 200 mg tablet TAKE 1 TABLET BY MOUTH TWICE A DAY active Not Available Not Available No t Available lacosamid e 150 mg tablet TAKE 1 TABLET BY MOUTH TWICE A DAY FOR 30 DAYS active Not Available Not Available No t Available lacosamid e 100 mg tablet TAKE 1 TABLET BY MOUTH TWICE A DAY FOR 30 DAYS active Not Available Not Available No t Available clobazam 10 mg tablet TAKE 1/2 TABLET 2 TIMES A DAY BY MOUTH active Not Available Not Available No t Available Linzess 290 mcg capsule TAKE 1 CAPSULE IN THE MORNING 02/16 completed Not Available Not Available Not Available Farxiga 10 mg tablet TAKE 1 TABLET BY MOUTH EVERY DAY. active Not Available Not Available No t Available Dupixent 300 mg/2 mL subcutane ous syringe Inject 2 mL every 2 weeks by subcutan eous route. active Not Available Not Available No t Available Dupixent 300 mg/2 mL subcutane ous pen injector 02/16 completed Not Available Not Available Not Available Airsupra 90 mcg-80 mcg/actua tion HFA aerosol inhaler TAKE 2 PUFFS BY MOUTH 3 TIMES A DAY NEEDED FOR SHORTNES S OF BREATH active Not Available Not Available No t Available Vitals Date Recorded Body weight Body mass index (BMI) Body height Provider Name and Address Organization Details Last Updated DateTime 02/16/2025 92306.19 g 27.3 kg/m2 162.56 cm RONDA HERRING [place] [facility] 02/16/2025 11:04:30 Social History None recorded. Functional Status Question Answer Note LastModified by Organization D etails LastModified Time What is your level of alcohol consumption? None [email or web address] Information not available 02/16/2025 Mental Status None recorded. Family History Nothing Reported. Medical History No medical history recorded. Past Encounters Encounter ID Performer Location Encounter Start Date Encounter Closed Date Diagnosis/Indication Diagnosis SNOMED-CT Code Diagnosis ICD10 Code Diagnosis Note [id number] JOHN KYLE MD [facility] [address] [address] 02/16/2025 10:25:23 02/16/2025 11:20:02 Uncomplicated moderate persistent asthma 832344795 J45.40 Health Concerns Section Related Observation LastModified by Organization Detai ls LastModified Time None Recorded Concern Status LastModified by Organization Details LastModified Time None Recorded Advance Directives Directive None Recorded Payers Insurance Date Sequence Insurance Name Policy Number Policy Tao Covered Member ID Tao Member ID Guarantor Name 02/13/2025 1 [place] [facility] (MEDICAID) Terrance Carranza [id number] Terrance Carranza 02/16/2025 1 [facility] PL[facility] (MEDICAID HMO) [place] Terrance Carranza [id number] Terrance Carranza Notes Date Note Type Note Provider Name and Address Organization Details Recorded Time text/html stridoronset late 20s agenot associated with any surgery or intubationno CT imaging of neck 10/16/[address] GarvinMedically optimized with asthma using triple inhaler therapy, biologic. Impression of increased symptoms despite optimized asthma therapy. Possibility of paradoxical vocal fold movement, referral to ENT.No history of hospitalization for stridor or prolonged [id number] total thyroidectomy, on replacement Synthroid12/04/2022 [place] [facility], [place], modified barium swallowSpeech pathology report not availableUGI noted esophageal rings.Past medical history seizures, cardiomyopathy JOHN KYLE MD [address] [place] [address], [place], [address], [place] [facility] 02/16/2025 11:16:55
--- OUTSIDE RECORDS SUMMARY | 2025-04-06 08:31 | XMS_ITS | Clinical Summary ---
Author Organization [facility] [address] [facility] Address [address] [place] [address] Phone Care Team Providers Care Glove Turner And Former Name Role Phone Saúl Maier Primary Care Provider Allergies Active Allergy Reactions Criticality Noted Date Comments Dog Dander 10/16/2024 Tree And Shrub Pollen 10/16/2024 Medications methylPREDNISo lone (MEDROL) 4 mg tablet Take 4 mg by mouth daily. Active pantoprazole (PROTONIX) 20 mg EC tablet TAKE 1 TABLET BY MOUTH EVERY DAY 04/10/20 19 Active atorvastatin (LIPITOR) 40 mg tablet Take [...] Take 10 mg by mouth daily. Active budesonide-for moteroL (SYMBICORT) 160-4.5 mcg/actuation inhaler Inhale 2 Puffs into the lungs 2 times daily. Rinse mouth after use. Active tiotropium (Spiriva Respimat) 1.25 mcg/actuation inhalation spray Inhale 1 Puff into the lungs daily. 07/18/20 17 Active sertraline (ZOLOFT) 25 mg tablet PLEASE SEE ATTACHED FOR DETAILED DIRECTIONS 01/10/20 25 Active OXcarbazepine (TRILEPTAL) 300 mg tablet Take 1 tablet (300 mg total) by mouth 2 (two) times a day. 12/09/19 25 Active cloBAZam (ONFI) 10 mg tablet Take 1 tablet (10 mg total) by mouth. Active lacosamide (VIMPAT) 200 mg tablet tablet Take 1 tablet (200 mg total) by mouth 2 (two) times a day. Active albuterol-bude sonide (AIRSUPRA) 90-80 mcg/actuation inhaler Inhale 2 puffs by mouth 2 (two) times daily morning and afternoon. Active calcium carbonate (TUMS) 500 mg (200 mg elemental calcium) chewable tablet Chew 1 tablet (500 mg total) 1 (one) time each day. Active carvediloL (COREG) 6.25 mg tablet Take 1 tablet (6.25 mg total) by mouth 2 (two) times a day. 12/09/19 25 Active cholecalcifero l (VITAMIN D-3) 50 mcg (2,000 unit) capsule TAKE 2 CAPSULES BY MOUTH EVERY DAY FOR 90 DAYS Active dupilumab (Dupixent Syringe) 300 mg/2 mL syringe Inject 2 mL every 2 weeks by subcutaneous route. Active lansoprazole (PREVACID) [address] capsule Take 1 capsule (30 mg total) by mouth 1 (one) time each day. 12/05/19 25 Active levothyroxine (SYNTHROID, LEVOTHROID) 175 mcg tablet 0.2 mcg. 03/18/20 22 Active lisinopriL (PRINIVIL,ZEST RIL) 10 mg tablet Take 1 tablet (10 mg total) by mouth 1 (one) time each day. 03/15/20 22 Active metFORMIN XR (GLUCOPHAGE-XR ) 500 mg 24 hr tablet Take 1 tablet (500 mg total) by mouth at bedtime. Active theophylline (UNIPHYL) 400 mg 24 hr tablet Take 1 tablet (400 mg total) by mouth 1 (one) time each day. 10/26/19 22 Active nystatin (MYCOSTATIN) 100,000 unit/mL suspension Swish and swallow 4 (four) times a day. Active ipratropium-al buteroL (DUONEB) 0.5-2.5 mg/3 mL nebulizer solutionIndica tions:Severe asthma, unspecified whether complicated, unspecified whether persistent TAKE 3 ML BY NEBULIZATION 1 (ONE) TIME EACH DAY. 180 mL 03/30/20 25 026 Active ipratropium-al buteroL (DUONEB) 0.5-2.5 mg/3 mL nebulizer solutionIndica tions:Severe asthma, unspecified whether complicated, unspecified whether persistent Take 3 mL by nebulization 1 (one) time each day. 180 mL 02/24/20 25 025 Discontinued Active Problems Problem Noted Date Diagnosed Date COPD (chronic obstructive pu lmonary disease) ([facility] V24, [facility] V28) 10/03/2017 Allergic rhinitis 07/14/2017 Asthma-chronic obstructive p ulmonary disease overlap syndrome ([facility] V24, [facility] V28) 04/16/2017 Obstructive sleep apnea syndrome 04/16/2017 Asthma 12/08/2016 Gastroesophageal reflux disease 12/08/2016 Encounters Date Type Department Care Team Description 02/23/2025 3:30 PM EDT Office Visit Pulmonology [address] [phone] Anabel Garvin MD Severe asthma, unspecified whether complicated, unspecified whether persistent (Primary Dx) 02/23/2025 Telephone Pulmonology [address] [phone] Cassandra Bryan MA from Last 3 Months Medical History Medical History Date Comments Allergic rhinitis 07/14/2017 DX:Allergic rh initis Asthma 12/08/2016 DX:Asthma Asthma-chronic obstructive p ulmonary disease overlap syndrome ([facility] V24, [facility] V28) 04/16/2017 DX:Asthma-chronic obstructiv e pulmonary disease overlap syndrome (HCC) Gastroesophageal reflux disease 12/08/2016 DX:Gastroesophageal reflux disease Obstructive sleep apnea syndrome 04/16/2017 DX:Obstructive sleep apnea syndrome COPD (chronic obstructive pu lmonary disease) ([facility] V24, [facility] V28) 10/03/2017 DX:COPD (chronic o bstructive pulmonary disease) ([facility]) Social History Tobacco Use Types Packs/Day Years Used Date Smoking Tobacco: Never Passive Smoke Exposure: Never Smokeless Tobacco: Never Tobacco Cessation:Counseling Given: Yes Alcohol Use Standard Drinks/Week Comments No 0 (1 standard drink = 0.6 oz pur e alcohol) Sex and Gender Information Value Date Recorded Sex Assigned at Not on file Legal Sex Male 11:22 AM EST Gender Identity Not on file Sexual Orientation Not on file Obstetrics History Last Filed Vital Signs Vital Sign Reading Time Taken Comments Blood Pressure 114/74 02/23/2025 3:03 PM EDT Pulse 77 02/23/2025 3:03 PM EDT Temperature 36.7 C (98.1 F) 10/16/2024 3:01 PM EST Respiratory Rate 18 02/23/2025 3:03 PM EDT Oxygen Saturation 95% 02/23/2025 3:03 PM EDT Inhaled Oxygen Concentration - - Weight 68.9 kg (152 lb) 02/23/2025 3:03 PM EDT Height 162.6 cm (5' 4 ) 02/23/2025 3:03 PM EDT Body Mass Index 26.09 02/23/2025 3:03 PM EDT Plan of Treatment Upcoming Encounters Date Type Department Care Team (Late st Contact Info) Description 04/10/2025 4:00 PM EDT Office Visit Pulmonology - [address] [phone] Anabel Garvin MD [address] [place] [address] Health Maintenance Due Date Last Done Comments COVID-19 Vaccine (#1) 11/18/1984 Hepatitis B Vaccines (1 of 3 - 19+ 3-dose series) 11/18/1998 Pneumococcal Vaccine: Pediatrics (0 to 5 Years) and At-Risk Patients (6 to 49 Years) (3 of 3 - PCV) 11/24/2019 11/23/2018, 08/22/2018 Cholesterol Screening (Lipid Panel) 08/07/2024 Colorectal Cancer Screening: Colonoscopy 08/07/2024 HIV Screening 08/07/2024 Hepatitis C Screening 08/07/2024 Social Influencers of Health Screening 08/07/2024 Depression Screening 09/17/2024 Influenza Vaccine (#1) 2025 , 09/12/2023, 08/01/2021, Additional history exists Hypertension/CHF/CAD Annual BMP Blood Test 02/23/2026 02/23/2025 DTaP,Tdap,and Td Vaccines (2 - Td or Tdap) 08/07/2027 08/07/2017 HIB Vaccines Aged Out No longer eligi [...] Procedure Name Priority Date/Time Associated Diagnosis Comments CBC WITH AUTO DIFFERENTIAL Routine 02/23/2025 1:31 PM EDT Severe asthma, unspecified whether complicated, unspecified whether persistent IMMUNOGLOBULIN IGE Routine 02/23/2025 1: 31 PM EDT Asthmatic bronchitis BASIC METABOLIC PANEL Routine 02/23/2025 1:31 PM EDT Severe asthma, unspecified whether complicated, unspecified whether persistent CBC AND DIFFERENTIAL Routine 02/23/2025 1:31 PM EDT Severe asthma, unspecified whether complicated, unspecified whether persistent ALLERGEN ASPERGILLUS FUMIGATUS IGE Routine 02/23/2025 1:31 PM EDT Severe asthma, unspecified whether complicated, unspecified whether persistent from Last 3 Months Results * (ABNORMAL) CBC auto differential (02/23/2025 1:31 PM EDT) [facility] WBC 8.5 4.8 - 10.8 K/mcL LAB HEMETOLOGY METHOD 02/23/2025 3:[address] [facility] RBC 5.40 4.50 - 5.50 M/mcL LAB HEMETOLOGY METHOD 02/23/2025 3:[address] [facility] Hemoglobin 15.8 13.5 - 17.5 g/dL LAB HEMETOLOGY METHOD 02/23/2025 3:[address] [facility] Hematocrit 48.0 42.0 - 54.0 % LAB HEMETOLOGY METHOD 02/23/2025 3:[address] [facility] MCV 88.7 79.0 - 98.0 FL LAB HEMETOLOGY METHOD 02/23/2025 3:[address] [facility] MCH 29.2 27.0 - 32.0 pcg LAB HEMETOLOGY METHOD 02/23/2025 3:[address] [facility] MCHC 32.9 32.0 - 37.0 g/dL LAB HEMETOLOGY METHOD 02/23/2025 3:[address] [facility] RDW 13.3 11.0 - 15.0 % LAB HEMETOLOGY METHOD 02/23/2025 3:[address] [facility] Platelets 428(H) 130 - 400 K/mcL LAB HEMETOLOGY METHOD 02/23/2025 3:[address] [facility] MPV 9.0 7.0 - 11.0 FL LAB HEMETOLOGY METHOD 02/23/2025 3:[address] [facility] NRBC 0.0 <1.0 % LAB HEMETOLOGY METHOD 02/23/2025 3:[address] [facility] NRBC Absolute 0.00 <0.10 K/mcL LAB HEMETOLOGY METHOD 02/23/2025 3:[address] [facility] Neutrophils Relative 59.7 % LAB HEMETOLOGY METHOD 02/23/2025 3:[address] [facility] Lymphocytes Relative 28.8 % LAB HEMETOLOGY METHOD 02/23/2025 3:[address] [facility] Monocytes Relative 6.4 % LAB HEMETOLOGY METHOD 02/23/2025 3:[address] [facility] Eosinophils Relative 3.8 % LAB HEMETOLOGY METHOD 02/23/2025 3:[address] [facility] Basophils Relative 0.8 % LAB HEMETOLOGY METHOD 02/23/2025 3:[address] [facility] Immature Granulocytes Relative 0.5 % LAB HEMETOLOGY METHOD 02/23/2025 3:[address] [facility] Neutrophils Absolute 5.09 1.50 - 7.00 K/mcL LAB HEMETOLOGY METHOD 02/23/2025 3:[address] [facility] Lymphocytes Absolute 2.46 1.00 - 5.00 K/mcL LAB HEMETOLOGY METHOD 02/23/2025 3:[address] [facility] Monocytes Absolute 0.55 0.20 - 1.00 K/mcL LAB HEMETOLOGY METHOD 02/23/2025 3:[address] [facility] Eosinophils Absolute 0.32 0.00 - 0.50 K/mcL LAB HEMETOLOGY METHOD 02/23/2025 3:[address] [facility] Basophils Absolute 0.07 0.00 - 0.20 K/mcL LAB HEMETOLOGY METHOD 02/23/2025 3:[address] [facility] Immature Granulocytes Absolute 0.04(H) 0.00 - 0.03 K/mcL LAB HEMETOLOGY METHOD 02/23/2025 3:[address] [facility] Blood Venous blood specimen / Unknown Venipuncture / Unknown 02/23/2025 1:31 PM EDT 02/23/2025 2:01 PM EDT Anabel Garvin MD LAB BLOOD ORDERABLES Final Result [facility] [address] [place] [address], * Allergen aspergillus fumigatus IgE (02/23/2025 1:31 PM EDT) Aspergillus fumigatus, IgE <0.10 <0.10 kU/L 02/26/2025 12:01 PM EDT [facility] Aspergillus fumigatus Class CLASS 0 02/26/2025 12:01 PM EDT [facility] Comment: Test performed at [facility], [address] , [place] [address] Joan Curry MD, PhD - Bleach Mixer Blood Venous blood specimen / Unknown Venipuncture / Unknown 02/23/2025 1:31 PM EDT 02/23/2025 2:02 PM EDT Anabel Garvin MD LAB BLOOD ORDERABLES Final Result [facility] [address] [place] [address] * Immunoglobulin IgE (02/23/2025 1:31 PM EDT) [facility] IgE 12.5 0.0 - 158.0 I Unit/mL LAB CHEMISTRY METHOD 02/23/2025 6:[address] [facility] Blood Venous blood specimen / Unknown Venipuncture / Unknown 02/23/2025 1:31 PM EDT 02/23/2025 2:03 PM EDT Anabel Garvin MD LAB BLOOD ORDERABLES Final Result [facility] [address] [place] [address], [place] [phone] * (ABNORMAL) Basic metabolic panel (02/23/2025 1:31 PM EDT) Sodium 138 133 - 145 mmol/L LAB CHEMISTRY METHOD 02/23/2025 6:[address] [facility] Potassium 3.9 3.5 - 5.5 mmol/L LAB CHEMISTRY METHOD 02/23/2025 6:[address] [facility] Chloride 104 96 - 110 mmol/L LAB CHEMISTRY METHOD 02/23/2025 6:[address] [facility] CO2 26 21 - 32 mmol/L LAB CHEMISTRY METHOD 02/23/2025 6:[address] [facility] Anion Gap 8 3 - 11 LAB CHEMISTRY METHOD 02/23/2025 6:[address] [facility] Glucose 127(H) 70 - 100 mg/dL LAB CHEMISTRY METHOD 02/23/2025 6:[address] [facility] BUN 13 5 - 25 mg/dL LAB CHEMISTRY METHOD 02/23/2025 6:[address] [facility] Creatinine 1.05 0.70 - 1.30 mg/dL LAB CHEMISTRY METHOD 02/23/2025 6:[address] [facility] eGFR 89 >=60 mL/min/1. 73m2 LAB CHEMISTRY METHOD 02/23/2025 6:[address] [facility] Comment:Calculation based on the Chronic Kidney Disease Epidemiology Collaboration (CKD-EPI) equation refit without adjustment for race. BUN/Creatinine Ratio 12.4 LAB CHEMISTRY METHOD 02/23/2025 6:[address] [facility] Calcium 9.6 8.5 - 10.5 mg/dL LAB CHEMISTRY METHOD 02/23/2025 6:[address] [facility] Blood Venous blood specimen / Unknown Venipuncture / Unknown 02/23/2025 1:31 PM EDT 02/23/2025 2:03 PM EDT us Anabel Garvin MD LAB BLOOD ORDERABLES Final Result [facility] [address] [place] [address], [place] [phone] from Last 3 Months Insurance [facility] [email or web address] Care Teams Glove Turner And Former Relationship Specialty Start Date End Date Saúl Maier PA PCP - General Physician Warehouse Processor 12/09/24
[2025-04-06 08:40] LABS: Alanine Aminotransferase 25 U/L (0-40); Albumin Level 4.5 g/dL (3.5-5.0); Alkaline Phosphatase 90 U/L (39-117); Anion Gap 13 (12-20); Aspartate Amino Transferase 21 U/L (5-37); Blood Urea Nitrogen 7 mg/dL (9-16); Calcium 9.0 mg/dL (8.4-10.2); Carbon Dioxide 20 mmol/L (22-29); Chloride 107 mmol/L (96-108); Creatinine Clr Calc Pharmacy 125.6; Estimated Glomerular Filt Rate > 60; Magnesium 1.7 mg/dL (1.6-2.6); Potassium 4.7 mmol/L (3.3-5.1); Sodium 135 mmol/L (135-145); Total Protein 7.1 g/dL (6.5-8.0)
--- NOTE | 2025-04-06 08:40 | PC.NURSE ---
called patient's primary contact - answered/stated that her (patient's father) was waiting outside of cardiac rehab but does not have a cell phone/no way to contact him. make/model of car located - security found patient's father. father now bedside for support.
[2025-04-06 08:44] LABS: Troponin-I High Sensitivity < 2.7 ng/L (<3.5-35.0)
--- NOTE | 2025-04-06 11:17 | PC.NURSE ---
patient verbalizing increased sob/chest feels tight. lungs CTA. no apparent respiratory distress. no sob/wob noted. respirations even/unlabored. verbal order for ED bronch protocol placed per provider order. pending breathing tx at this time.
[2025-04-06] MEDS: Albuterol Sulfate 2.5 MG, Albuterol/Iprat 2.5/0.5MG 3 ML 3 ML INHALE (11:34)
== END 2025-04-06 14:21 | disposition home or self-care (01) ==
PROVIDERS: Emergency Provider Emergency Medicine; PCP Physician Assistant
DX: R53.1 Weakness (principal); F41.9 Anxiety disorder, unspecified; E11.9 Type 2 diabetes mellitus without complications; I10 Essential (primary) hypertension; E55.9 Vitamin D deficiency, unspecified; J45.909 Unspecified asthma, uncomplicated; F12.90 Cannabis use, unspecified, uncomplicated; Z79.899 Other long term (current) drug therapy; Z79.82 Long term (current) use of aspirin
CPT/HCPCS: 36415; 71045; 80053; 80339; 82947; 83605; 83735; 84484; 85025; 93005; 94640; 96361; 96374; 99284; 99285; J3360

== ENCOUNTER → 2025-04-06 08:03 | Outpatient (BNV) | payer OTHER, SELFPAY | PROVIDERS: Emergency Provider Emergency Medicine; PCP Physician Assistant; Visit Provider Internal Medicine Cardiovascular Disease | DX: R56.9 Unspecified convulsions (principal) | CPT/HCPCS: 93010 ==

== ENCOUNTER 2025-04-09 08:23 | Outpatient (AMB) | payer OTHER, SELFPAY ==
--- NOTE | 2025-04-09 08:36 | MHC.PC.OV ---
Vital Signs 04/09/25 08:37 Height 5 ft Weight 150 lb 8 oz BMI 29.4 BP 110/70 Blood Pressure Location Lt brachial Position Sitting Pulse 74 Pulse Source Pulse Oximeter Temp 97.1 F Temp Source Temporal Artery Scan Pulse Oximetry (%) 94 Oxygen Delivery Method Room Air Intake Visit Reasons: f/u DMII/ HTN Intake Note: Patient is here to follow up on HTN, DM. Ice Sculptor Required: No Timing Inspector: Not Required per policy Accompanied by: Self / Same As Patient Allergies cat dander (CATS) Allergy (Mild, Verified 04/09/25 08:47) GENERALIZED ALLERGY SYMPTOMS dog dander (DOGS) Allergy (Mild, Verified 04/09/25 08:47) GENERALIZED ALLERGY SYMPTOMS tree and shrub pollen (TREE) Allergy (Mild, Verified 04/09/25 08:47) GENERALIZED ALLERGY SYMPTOMS FROM P[place] TREES Medication List - Last Reconciled 04/09/25 by Saúl Maier PA-C albuterol-budesonide 90-80 mcg/actuation (Airsupra) 2 inhalations inhalation TID PRN aspirin 81 mg PO DAILY 90 days atorvastatin 80 mg PO DAILY blood sugar diagnostic (FreeStyle Lite Strips) As directed- daily blood-glucose meter (FreeStyle Lite Meter kit) As directed- once daily carvedilol 6.25 mg PO BID cholecalciferol (vitamin D3) 100 mcg (2 x 50 mcg (2,000 unit)) PO DAILY 90 days clobazam 5 mg PO BID dapagliflozin propanediol (Farxiga) 10 mg PO DAILY hydroxyzine HCl 25 mg PO BEDTIME PRN ipratropium-albuterol 0.5 mg-3 mg(2.5 mg base)/3 mL 3 mL inhalation DAILY lacosamide mg PO lancets (FreeStyle Lancets) As directed- daily lansoprazole 30 mg PO DAILY levothyroxine (Synthroid) 12.5 mcg PO DAILY@0600 levothyroxine (Synthroid) 200 mcg PO DAILY@0600 lisinopril 10 mg PO DAILY metformin ER 500 mg PO BEDTIME montelukast 10 mg PO BEDTIME 90 days nystatin 5 mL PO DAILY PRN 30 days oxcarbazepine 600 mg PO BID sertraline 100 mg PO BEDTIME [Sharps container As directed] sucralfate 1 g PO DAILY theophylline ER 200 mg (1/2 x 400 mg) PO DAILY Ventolin HFA 90 mcg/actuation (albuterol sulfate) 2 puffs PO Q6H PRN NS Tobacco use date assessed: 04/09/25 Dental Screening Dental Screen Date: 12/19/24 HPI f/u DMII/ HTN HPI Details Terrance is 44 year-old male here today for a follow-up visit ?Patient? has a past medical history significant for seizure disorder, moderate persistent? asthma, depression and anxiety, thyroid cancer status post thyroidectomy. Recent ER visit--> The patient experienced an episode of staring and was sent to the emergency room from cardiac rehabilitation. He does not recall the event and only remembers waking up at home. The episode was characterized by staring and possible syncope or seizure, as noted by the medical team. The patient reported vomiting after taking his medication, which included oxcarbazepine, and this may have contributed to the episode. He denies missing doses as his mother manages his medication. In the emergency room, the patient underwent a workup including troponin levels, EKG, and chest X-ray, all of which were unremarkable. Blood sugar, kidney, and liver functions were normal. The oxcarbazepine level is still pending. Also The patient has a history of asthma and vocal cord dysfunction, which have been evaluated by specialists. Recent evaluations indicated that the vocal cords and thyroid appeared normal, but the asthma specialist suggested a possible link to the vocal cords or trachea. CHRONIC MEDICAL CONDITIONS-- > Epileptic disorder: Neurology also evaluated did EEG that did show some frontal epileptic activity. His seizure medication was increased in dose. Unfortunately has intolerable side effects (lethargy, memory issues). He is currently working with a web content & social media manager (Pam) who is trying to get him a new neurologist to make new recommendations on his seizure medication as he is having breakthrough seizures. .. GERD/dysphagia: Does report having worsening GERD like symptoms and chronic throat congestion. He will be following up with Gastroenterology about this. .. Type 2 diabetes: Today's A1c is 5.7 from 6.0.. He continues on metformin 500 daily.. He does admit to dietary indiscretion as a side effect his seizure medications. History of?thyroid cancer: Has noted recently change in his voice and some hoarseness. He is status post total thyroidectomy. Continues on levothyroxine indefinitely. Most recent TSH and T4 have been abnormal Continues on dose levothyroxine at 200 mcg. He has followed up with a endocrinology thyroid specialist in [place] whom will be further working him up. PLAN: Plan for CT of soft tissue neck to evaluate for any recurrent thyroid cancer. ?.. ? Anxiety: Patient he is? seeing therapist (Leila) weekly. Patient continues? on Zoloft .. History of cardiomyopathy:? As above patient recently underwent a cardiac catheterization without any notable blockages in his coronary arteries. ?.. ?Moderate persistent asthma:? Followed by Pulmonology. REcent PFT - showing modererate asthma vs COPD. He does continue on Dupixent which has really helped initially control his asthma symptoms . Unfortunately his asthma has worsened. Will be considering [facility] for a Bronchothermoplasy. He reports as of late his wheezing has been more evident and he attributes this to the changes in weather. [facility] Medical History Breakthrough seizure Cardiomyopathy Uvulitis Claustrophobia Takotsubo cardiomyopathy Schatzki's ring Gastritis Sleep apnea Diabetes Gastroparesis Migraine headache with aura Enlarged liver Postoperative hypothyroidism Thyroid cancer Vitamin D deficiency Multinodular thyroid Seizures ABPA (allergic bronchopulmonary aspergillosis) Seizures Asthma Surgical History S/P total thyroidectomy History of esophagogastroduodenoscopy (EGD) S/P removal of thyroid nodule History of cholecystectomy Family History Maternal Grandmother Emphysema, unspecified Father Diabetes Mother No problems noted. Paternal Grandfather Liver cancer Colon cancer Social History Household Members: Family Housing: Apartment Are you a primary healthcare management consultant to a significant other at home: No Do you presently have visiting nurse or other home services: No Alcohol intake: never Comment: has poor balance Patient Tobacco Use Status: Never used Tobacco e-Cigarette/Vaping Use: Never Used Second Hand Smoke Exposure: No Substance Use Type: Marijuana Advance Directives Date on File: 05/20/23 service: No Current occupational status: disabled Current occupation: rt handed Cognitive needs: No Hearing needs: No Vision needs: No Questionnaire Thrive Questionnaire Date Thrive assessed: 10/01/24 I am a: Patient What is your living situation today?: I have a place to live, but I am worried about losing it in the future Within the past 12 months, did the food you bought not last and you didn't have the money to get more?: Sometimes True Within the past 12 months, did you worry whether your food would run out before you got money to buy more?: Sometimes True Do you have trouble paying for medicines?: No Do you have trouble getting transportation to medical appointments?: Yes Do you have trouble paying your heating and electricity bill?: Yes Do you have trouble taking care of your child, family member or friend?: No Do you have trouble with day-to-day activities such as bathing, preparing meals, shopping, managing finances, etc.?: Yes Are you currently unemployed and looking for a job?: Yes Are you interested in more education?: No Please select the resources that you would like help with: Daily support Currently or been in a relationship where the following occur: I choose not to answer THRIVE Score: 5 AUDIT C Alcohol Use Questionnaire (AUDIT-C) 3. How often do you have six or more drinks on one occasion?: Never Total Score: 0 MOOSE-7 AMB Questionnaire MOOSE-7 Date MOOSE - 7 assessed: 10/01/24 Source: Developed by Drs. Ramses Nguyen, Debi Russ, Colin Rowell and colleagues, with an educational javy from [employer]. Physical exam (Primary Care) Vital Signs: Last Vital Signs Temp 97.1 F 04/09/25 08:37 Pulse 74 04/09/25 08:37 BP 110/70 04/09/25 08:37 Pulse Ox 94 04/09/25 08:37 Oxygen Delivery Method Room Air 04/09/25 08:37 BMI result Body Mass Index 29.4 Tobacco/Smoking Status: Tobacco use Status Tobacco use date assessed 04/09/25 04/09/25 08:45 Patient Tobacco Use Status Never used Tobacco 04/09/25 08:45 Tobacco use type 10/02/24 11:44 e-Cigarette/Vaping Use Never Used 04/09/25 08:45 Thrive Assessment: Date of Thrive Assessment Date Thrive assessed 10/01/24 04/09/25 08:45 Currently or been in a relationship where the following occur: I choose not to answer Results AMB Hemoglobin A1c AMB Hemoglobin A1c 5.9 % Last Edit by RAFA Brenner on 04/09/25 08:48 Coding Diagnoses Seizure disorder G40.909 Thyroid cancer C73 Type 2 diabetes mellitus with hyperglycemia, without long-term current use of insulin E11.65 Diabetes mellitus detention insulin use: without detention use Diabetes mellitus complication status: with hyperglycemia Moderate persistent asthma without complication J45.40 Asthma complication type: uncomplicated Asthma persistence: persistent Asthma severity: moderate MDD (major depressive disorder), recurrent episode, moderate F33.1 MOOSE (generalized anxiety disorder) F41.1 Hoarseness of voice R49.0 Assessment & Plan Assessment & Plan (1) Seizure disorder: Code(s): G40.909 - Epilepsy, unspecified, not intractable, without status epilepticus Category: Medical Plan: Patient continues on 4 different antiepileptic medication. Recently had a seizure last month. He is now seeing an epileptic specialist at [facility] in his made some med adjustments. He reports he is being weaned off with a oxcarbazepine over some time. He is interested in getting a 2nd opinion at [facility] epileptic specialty for 2nd opinion He continues to have all kinds of side effects from his antiseizure meds. (2) Thyroid cancer: Code(s): C73 - Malignant neoplasm of thyroid gland Category: Medical Plan: Patient has a history of thyroid cancer in his status post thyroidectomy. Patient's TSH and T4 still remain abnormal.. Over the last few months he has noted some hoarseness of voice and changing in his voice. Will send for CT of soft tissue of neck to evaluate for any recurrent mass in the neck causing the change in his voice. He will be following up with his grants officer as well. (3) DMII (diabetes mellitus, type 2): Comment: Pt also with GERD Code(s): E11.9 - Type 2 diabetes mellitus without complications Category: Medical Qualifiers: Diabetes mellitus terminologist insulin use: without detention use Diabetes mellitus complication status: with hyperglycemia Qualified Code(s): E11.65 - Type 2 diabetes mellitus with hyperglycemia Plan: Patient's type 2 diabetes well controlled with current dose of metformin. Today's A1c is 5.7 from 6.0. Goal A1c is to remain below 6.5. (4) Asthma: Code(s): J45.909 - Unspecified asthma, uncomplicated Category: Medical Qualifiers: Asthma complication type: uncomplicated Asthma persistence: persistent Asthma severity: moderate Qualified Code(s): J45.40 - Moderate persistent asthma, uncomplicated Plan: Patient followed by [facility] pulmonology. Has pretty severe asthma which as of late has not been well controlled even on maximal medical therapy. He will be seeing pulmonology and [facility] to discuss alternative therapies (5) MDD (major depressive disorder), recurrent episode, moderate: Code(s): F33.1 - Major depressive disorder, recurrent, moderate Category: Medical Plan: Continues to suffer with depression secondary to his physical health conditions that have not completely been figured out. Speaks with a mental health therapist and continues on mental health medication. He reports his depression is bad because of his medical conditions that are hard to figure out. (6) MOOSE (generalized anxiety disorder): Code(s): F41.1 - Generalized anxiety disorder Category: Medical (7) Hoarseness of voice: Code(s): R49.0 - Dysphonia Category: Medical Orders: Orders XR soft tissue neck Today R49.0 - Dysphonia Comprehensive [place]. Panel Fast Today E11.65 - Type 2 diabetes mellitus with hyperglycemia AMB Hemoglobin A1c Today E11.65 - Type 2 diabetes mellitus with hyperglycemia Lipid Panel Today E11.65 - Type 2 diabetes mellitus with hyperglycemia Complete Blood Count no Diff Today E11.65 - Type 2 diabetes mellitus with hyperglycemia
[2025-04-09 08:37] VITALS: BP 110/70; PULSE 74; TEMP 36.2; O2SAT 94; BMI 29.4
--- OUTSIDE RECORDS SUMMARY | 2025-04-09 08:40 | XMS_ITS | Clinical Summary ---
Author Organization [facility] [address] [facility] Address [address] [place] [address] Phone Care Team Providers Care Director Of Oncology Name Role Phone Saúl Maier Primary Care Provider [phone] Allergies Active Allergy Reactions Criticality Noted Date [...] Date COPD (chronic obstructive pu lmonary disease) ([facility] V24, [facility] V28) 10/03/2017 Allergic rhinitis 07/14/2017 Asthma-chronic obstructive p ulmonary disease overlap syndrome ([facility] V24, [facility] V28) 04/16/2017 Obstructive sleep apnea syndrome 04/16/2017 Asthma 12/08/2016 Gastroesophageal reflux disease 12/08/2016 Encounters Date Type Department Care Team Description 02/23/2025 3:30 PM EDT Office Visit Pulmonology [address] [address] Anabel Garvin MD Severe asthma, unspecified whether complicated, unspecified whether persistent (Primary Dx) 02/23/2025 Telephone [address] [address] Cassandra Bryan MA from Last 3 Months Medical History Medical History Date Comments Allergic rhinitis 07/14/2017 DX:Allergic rh initis Asthma 12/08/2016 DX:Asthma Asthma-chronic obstructive p ulmonary disease overlap syndrome ([facility] V24, [facility] V28) 04/16/2017 DX:Asthma-chronic obstructiv e pulmonary disease overlap syndrome (HCC) Gastroesophageal reflux disease 12/08/2016 DX:Gastroesophageal reflux disease Obstructive sleep apnea syndrome 04/16/2017 DX:Obstructive sleep apnea syndrome COPD (chronic obstructive pu lmonary disease) ([facility] V24, [facility] V28) 10/03/2017 DX:COPD (chronic o bstructive pulmonary disease) ([facility]) Social History Tobacco Use Types Packs/Day Years [...] 4:00 PM EDT Office Visit Pulmonology - [address] [phone] Anabel Garvin MD [address] [place] [address] Health Maintenance Due Date Last Done Comments [...] CBC auto differential (02/23/2025 1:31 PM EDT) [facility] WBC 8.5 4.8 - 10.8 K/mcL LAB HEMETOLOGY METHOD 02/23/2025 3:00 PM [facility] RBC 5.40 4.50 - 5.50 M/mcL LAB HEMETOLOGY METHOD 02/23/2025 3:00 PM [facility] Hemoglobin 15.8 13.5 - 17.5 g/dL LAB HEMETOLOGY METHOD 02/23/2025 3:00 PM [facility] Hematocrit 48.0 42.0 - 54.0 % LAB HEMETOLOGY METHOD 02/23/2025 3:00 PM [facility] MCV 88.7 79.0 - 98.0 FL LAB HEMETOLOGY METHOD 02/23/2025 3:00 PM [facility] MCH 29.2 27.0 - 32.0 pcg LAB HEMETOLOGY METHOD 02/23/2025 3:00 PM [facility] MCHC 32.9 32.0 - 37.0 g/dL LAB HEMETOLOGY METHOD 02/23/2025 3:00 PM [facility] RDW 13.3 11.0 - 15.0 % LAB HEMETOLOGY METHOD 02/23/2025 3:00 PM [facility] Platelets 428(H) 130 - 400 K/mcL LAB HEMETOLOGY METHOD 02/23/2025 3:00 PM [facility] MPV 9.0 7.0 - 11.0 FL LAB HEMETOLOGY METHOD 02/23/2025 3:00 PM [facility] NRBC 0.0 <1.0 % LAB HEMETOLOGY METHOD 02/23/2025 3:00 PM [facility] NRBC Absolute 0.00 <0.10 K/mcL LAB HEMETOLOGY METHOD 02/23/2025 3:00 PM [facility] Neutrophils Relative 59.7 % LAB HEMETOLOGY METHOD 02/23/2025 3:00 PM [facility] Lymphocytes Relative 28.8 % LAB HEMETOLOGY METHOD 02/23/2025 3:00 PM [facility] Monocytes Relative 6.4 % LAB HEMETOLOGY METHOD 02/23/2025 3:00 PM [facility] Eosinophils Relative 3.8 % LAB HEMETOLOGY METHOD 02/23/2025 3:00 PM [facility] Basophils Relative 0.8 % LAB HEMETOLOGY METHOD 02/23/2025 3:00 PM [facility] Immature Granulocytes Relative 0.5 % LAB HEMETOLOGY METHOD 02/23/2025 3:00 PM [facility] Neutrophils Absolute 5.09 1.50 - 7.00 K/mcL LAB HEMETOLOGY METHOD 02/23/2025 3:00 PM [facility] Lymphocytes Absolute 2.46 1.00 - 5.00 K/mcL LAB HEMETOLOGY METHOD 02/23/2025 3:00 PM [facility] Monocytes Absolute 0.55 0.20 - 1.00 K/mcL LAB HEMETOLOGY METHOD 02/23/2025 3:00 PM [facility] Eosinophils Absolute 0.32 0.00 - 0.50 K/mcL LAB HEMETOLOGY METHOD 02/23/2025 3:00 PM [facility] Basophils Absolute 0.07 0.00 - 0.20 K/mcL LAB HEMETOLOGY METHOD 02/23/2025 3:00 PM [facility] Immature Granulocytes Absolute 0.04(H) 0.00 - 0.03 K/mcL LAB HEMETOLOGY METHOD 02/23/2025 3:00 PM [facility] Blood Venous blood specimen / Unknown Venipuncture / Unknown 02/23/2025 1:31 PM EDT 02/23/2025 2:01 PM EDT Anabel Garvin MD LAB BLOOD ORDERABLES Final Result [facility] [address] [place] [address], * Allergen aspergillus fumigatus IgE (02/23/2025 1:31 PM EDT) Aspergillus fumigatus, IgE <0.10 <0.10 kU/L 02/26/2025 12:01 PM EDT [facility] Aspergillus fumigatus Class CLASS 0 02/26/2025 12:01 PM EDT [facility] Comment: Test performed at [facility], [address] , [place] [address] Joan Curry MD, PhD - Senior Inspector Blood Venous blood specimen / Unknown Venipuncture / Unknown 02/23/2025 1:31 PM EDT 02/23/2025 2:02 PM EDT Anabel Garvin MD LAB BLOOD ORDERABLES Final Result [facility] [address] [place] [address] * Immunoglobulin IgE (02/23/2025 1:31 PM EDT) [facility] IgE 12.5 0.0 - 158.0 I Unit/mL LAB CHEMISTRY METHOD 02/23/2025 6:43 PM EDT [facility] Blood Venous blood specimen / Unknown Venipuncture / Unknown 02/23/2025 1:31 PM EDT 02/23/2025 2:03 PM EDT Anabel Garvin MD LAB BLOOD ORDERABLES Final Result [facility] [address] [place] [address], [place] [phone] * (ABNORMAL) Basic metabolic panel (02/23/2025 1:31 PM EDT) Sodium 138 133 - 145 mmol/L LAB CHEMISTRY METHOD 02/23/2025 6:02 PM [facility] Potassium 3.9 3.5 - 5.5 mmol/L LAB CHEMISTRY METHOD 02/23/2025 6:02 PM [facility] Chloride 104 96 - 110 mmol/L LAB CHEMISTRY METHOD 02/23/2025 6:02 PM [facility] CO2 26 21 - 32 mmol/L LAB CHEMISTRY METHOD 02/23/2025 6:02 PM [facility] Anion Gap 8 3 - 11 LAB CHEMISTRY METHOD 02/23/2025 6:02 PM [facility] Glucose 127(H) 70 - 100 mg/dL LAB CHEMISTRY METHOD 02/23/2025 6:02 PM [facility] BUN 13 5 - 25 mg/dL LAB CHEMISTRY METHOD 02/23/2025 6:02 PM [facility] Creatinine 1.05 0.70 - 1.30 mg/dL LAB CHEMISTRY METHOD 02/23/2025 6:02 PM [facility] eGFR 89 >=60 mL/min/1. 73m2 LAB CHEMISTRY METHOD 02/23/2025 6:02 PM [facility] Comment:Calculation based on the Chronic Kidney Disease Epidemiology Collaboration (CKD-EPI) equation refit without adjustment for race. BUN/Creatinine Ratio 12.4 LAB CHEMISTRY METHOD 02/23/2025 6:02 PM [facility] Calcium 9.6 8.5 - 10.5 mg/dL LAB CHEMISTRY METHOD 02/23/2025 6:02 PM [facility] Blood Venous blood specimen / Unknown Venipuncture / Unknown 02/23/2025 1:31 PM EDT 02/23/2025 2:03 PM EDT us Anabel Garvin MD LAB BLOOD ORDERABLES Final Result [facility] [address] [place] [address], [place] [phone] from Last 3 Months Insurance [facility] [email or web address] PL[employer] Care Teams Director Of Oncology Relationship Specialty Start Date End Date Saúl Maier PA PCP - General Physician Dental Ceramist Helper 12/09/24
--- OUTSIDE RECORDS SUMMARY | 2025-04-09 08:40 | XMS_ITS | Clinical Summary ---
Author Organization [facility] Facility Address [address] [address] Care Team Providers Care College Counselor Name Role Phone Saúl Maier Primary Care [...] Influenza Vaccine (#1) 2025 Insurance Care Teams College Counselor Relationship Specialty Start Date End Date Saúl Maier PA [address] [place] [address], [address] [place] [address] PCP - General Physician House Painter Helper 01/30/22
--- OUTSIDE RECORDS SUMMARY | 2025-04-09 08:40 | XMS_ITS | Data Portability ---
Author Organization [place] - [facility], Allergy Address [address] [address] Care Team Providers Care Office Admin Name Role Phone NOHEMI THORNE Primary Care Provider Assessment Encounter Date Assessment Date Assessment LastModified [...] and Address Organization Details Recorded Time Asthma [id number] Active 2016 JOHN KYLE MD 100 [facility] 100, [place], [address] , [place] [facility] 12:50:26 Gastroeso phageal reflux disease 141879609 Active 2016 JOHN KYLE MD [address] [place] [place],[address], [place], [place], [address] , [place] [facility] [place] 5 12:50:26 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 94316621253 511694 Active 2016 JOHN KYLE MD 100 [facility] [place], [place], [address] , [place] [facility] [place] 5 12:50:26 Obstructi ve sleep apnea syndrome 13597446 Active 2016 JOHN KYLE MD 100 [facility] [place],[address], [place], [place], [address] , [place] [facility] [place] 5 12:50:26 Allergic rhinitis 25900155 Active 2016 JOHN KYLE MD 100 [facility] [place] [address], [place], [address] , [place] [facility] [place] 5 12:50:26 Chronic obstructi ve pulmonary disease 25500621 Active 2017 JOHN KYLE MD 100 [facility],[place] [address], [place], [address] , [place] [facility] 5 12:50:26 Stomatiti s 43070319 Active 2022 Oral thrush; Note: Date Diagnosed : 06/19/2023 10:39 AM (B37.0) Not Available Critical access hospital 4 03:21:21 Candidias is of mouth 66831713 Active 2022 Oral thrush; Note: Date Diagnosed : 06/19/2023 10:39 AM (B37.0) Not Available [facility] 4 03:21:21 Sensorine ural hearing loss 18379389 Active 2022 Sensorine ural hearing loss, unilatera l, right ear, with unrestric tran hearing on the contralat eral side; Note: Date Diagnosed : 06/19/2023 10:45 AM (H90.41) Not Available [facility] 4 03:21:21 Dysphagia 64821240 Active 2022 Dysphagia , unspecifi ed; Note: Date Diagnosed : 06/19/2023 10:39 AM (R13.10) Not Available Critical access hospital 4 03:21:21 Uncomplic ated moderate persisten t asthma 743831932 Active 2024 JOHN KYLE MD [address] [place] [address], [place], [address] , [facility] 5 11:14:01 Problem Notes None recorded. Procedures Surgical History Date Name Laterality Status Provider Name and Address Organization Details Recorded Time 02/16/2025 FOL_DP completed JOHN KYLE MD [address] [place] [address], [place], [address], [facility] 02/06/2025 13:02:33 Imaging Results None recorded. Procedure Notes None recorded. Medical Equipment None Reported. Allergies Allergen ID Allergen Name Allergen Category Reaction Reaction Severity Criticality Documentation Date Start Date Code Code System Note Provider Name and Address Organization Details Recorded Time 399085 Canis lupus familiari s extract environme nt Not available Not available Not available 01/29/20242024 26832 4 RxNorm JOHN KYLE MD [address] [place] [address], [place], [address], [facility] 5 12:50:15 621718 cat dander environme nt other Not available Not available 01/29/2024 69828 UNK React ion: Unkno wn; Not Available Critical access hospital 4 01:25:23 Medications Name Sig Start Date Stop Date Status Note LastModified by Organization Details LastModified Time atorvasta tin 40 mg tablet TAKE 1 TABLET BY MOUTH AT BEDTIME 02/16 completed Not Available Not Available Not Available levothyro xine 175 mcg tablet active Medicati on ID: [id number] B rand Name: levothyr oxine Se nd [...] tablet,de layed release active Medicati on ID: [id number] B rand Name: divalpro ex Send Method: [...] Address Organization Details Last Updated DateTime 02/16/2025 03330.19 g 27.3 kg/m2 162.56 cm RONDA HERRING [place] - [facility] 02/16/2025 11:04:30 Social History None recorded. [...] SNOMED-CT Code Diagnosis ICD10 Code Diagnosis Note [id number] JOHN KYLE MD [facility] [address] [address] 02/16/2025 10:25:23 02/16/2025 11:20:02 Uncomplicated moderate persistent asthma [id number] J45.40 Health Concerns Section Related Observation LastModified by Organization Detai ls LastModified Time None Recorded Concern Status LastModified by Organization Details LastModified Time None Recorded Advance Directives Directive None Recorded Payers Insurance Date Sequence Insurance Name Policy Number Policy Tao Covered Member ID Tao Member ID Guarantor Name 02/13/2025 1 [place] [facility] (MEDICAID) Terrance Carranza [id number] Terrance Carranza 02/16/2025 1 [facility] PL[facility] (MEDICAID HMO) [place] Terrance Carranza [id number] Terrance Carranza Notes Date Note Type Note [...] history of hospitalization for stridor or prolonged [id number] total thyroidectomy, on replacement Synthroid12/04/2022 [facility], [place], modified barium swallowSpeech pathology report not availableUGI noted esophageal rings.Past medical history seizures, cardiomyopathy JOHN KYLE MD [address] [place] [address], [place], [address], [place] [facility] 02/16/2025 11:16:55
== END 2025-04-09 10:22 | disposition home or self-care (01) ==
LOC: HO.HMCH 08:24
PROVIDERS: PCP Physician Assistant; Visit Provider Physician Assistant
DX: E11.65 Type 2 diabetes mellitus with hyperglycemia (principal)

== ENCOUNTER → 2025-04-09 08:23 | Outpatient (BNVA) | payer OTHER, SELFPAY | PROVIDERS: PCP Physician Assistant; Visit Provider Physician Assistant | DX: G40.909 Epilepsy, unspecified, not intractable, without status epilepticus (principal); C73 Malignant neoplasm of thyroid gland; E11.65 Type 2 diabetes mellitus with hyperglycemia; J45.40 Moderate persistent asthma, uncomplicated; R49.0 Dysphonia; Z79.84 Long term (current) use of oral hypoglycemic drugs | CPT/HCPCS: 83036; 99212 ==

== ENCOUNTER 2025-04-20 12:44 | Outpatient (REF) | payer OTHER, SELFPAY ==
--- OUTSIDE RECORDS SUMMARY | 2025-04-15 23:59 | XMS_ITS | Continuity of Care Document ---
Author Organization [facility] Address [address] [facility], [address] d Floor, [address] [place] [address]- Care Team Providers Care Product Manager Medical Device Name Role Phone Saúl Ellington Primary Care Physician [place] [facility] [place]): [place]16[place]25 - 04/15/25 [facility] [address], [address] [place] [id number] Encounter Type: Triage Allergies, Adverse Reactions, Alerts No Known Allergies Medications Airsupra 90 mcg-80 mcg/inh inhalation aerosol 2 inhalation, Inhalation, 3 times a day, PRN Wheezing/Shortness of Breath Start Date: 12/04/24 Status: Ordered Repeat number: 1 atorvastatin 80 mg oral tablet = 80 mg, By Mouth, Daily at bedtime, # 30 tablet, 0 Refills, Maintenance, 12/08/24 1:44:00 PM EDT, Tablet, [facility], Partial fill upon patient request if the prescription is for a schedule II opioid drug., 163, cm, 12/08/24 12:28:00 EDT, Height, 67, kg, 12/04/24 13:14:00 EDT, Dry Weight Start Date: 12/08/24 Status: Ordered Quantity: 30.0 Unit: tablet Repeat number: 1 calcium carbonate 500 mg (200 mg elemental calcium) oral tablet, chewable 1,000 mg, 2, tablet, Chew, 3 times a day, # 84 tablet, Refills 0, Tot. Refills 0, Maintenance, 12/01/21 2:50:00 PM EDT, Route to Pharmacy Electronically, [facility]/pharmacy #[id number], Partial fill upon patient request if the prescription is for a schedule II opioid drug., 165, cm, 12/01/21 11:45:00 EDT, Height, 77.6, kg, 11/21/21 11:27:00 EST, Dry Weight Start Date: 12/01/21 Stop Date: 12/15/21 Status: Ordered Quantity: 84.0 Unit: tablet Repeat number: 1 carvedilol 6.25 mg oral tablet 6.25 mg, By Mouth, 2 times a day, # 60 tablet, Refills 0, Tot. Refills 0, Maintenance, 12/08/24 1:44:00 PM EDT, Route to Pharmacy Electronically, [facility], Partial fill upon patient request if the prescription is for a schedule II opioid drug., 163, cm, 12/08/24 12:28:00 EDT, Height,67, kg, 12/04/24 13:14:00 EDT, Dry Weight Start Date: 12/08/24 Status: Ordered Quantity: 60.0 Unit: tablet Repeat number: 1 cholecalciferol 2000 intl units oral tablet 1 tablet = 50 mcg, By Mouth, Daily, # 14 tablet, 0 Refills, Maintenance, 12/01/21 2:50:00 PM EDT, Tablet, [facility]/pharmacy #[id number], Partial fill upon patient request if the prescription is for a schedule IIopioid drug., 165, cm, 12/01/21 11:45:00 EDT, Height, 77.6, kg, 11/21/21 11:27:00 EST, Dry Weight Start Date: 12/01/21 Stop Date: 12/15/21 Status: Ordered Quantity: 14.0 Unit: tablet Repeat number: 1 clobazam 10 mg oral tablet 1 tablet = 10 mg, By Mouth, 2 times a day, # 60 tablet, 2 Refills, Maintenance, 03/16/25 12:38:00 PMEDT, Tablet, [id number], 163, cm, 02/10/25 8:06:00 EDT, Height, 67, kg, 12/04/24 13:14:00 EDT, Dry Weight Start Date: 03/16/25 Status: Ordered Quantity: 60.0 Unit: tablet Repeat number: 3 dapagliflozin 10 mg oral tablet 1 tablet = 10 mg, By Mouth, Daily, # 90 tablet, 0 Refills, Maintenance, 12/08/24 1:44:00 PM EDT, Tablet, [facility], Partial fill upon patient request if the prescription is for a schedule II opioid drug., 163, cm, 12/08/24 12:28:00 EDT, Height, 67, kg, 12/04/24 13:14:00 EDT, Dry Weight Start Date: 12/08/24 Status: Ordered Quantity: 90.0 Unit: tablet Repeat number: 1 Dupixent Pre-filled Pen 300 mg/2 mL subcutaneous solution = 300 mg, Every 14 days, 0 Refills, Maintenance, 10/28/24 7:54:00 AM EST, Partial fill upon patient request if the prescription is for a schedule II opioid drug. Start Date: 10/28/24 Status: Ordered Repeat number: 1 lacosamide 200 mg oral tablet 1 tablet = 200 mg, By Mouth, 2 times a day, # 120 tablet, 1 Refills, Maintenance, 02/10/25 8:49:00 AM EDT, Tablet, [facility]/pharmacy #[id number], Partial fill upon patient request if the prescription is for a schedule II opioid drug., 163, cm, 02/10/25 8:06:00 EDT, Height, 67, kg, 12/04/24 13:14:00 EDT, Dry Weight Start Date: 02/10/25 Status: Ordered Quantity: 120.0 Unit: tablet Repeat number: 2 lansoprazole 30 mg oral enteric coated capsule 1 capsule = 30 mg, By Mouth, Daily Start Date: 12/04/24 Status: Ordered Repeat number: 1 lisinopril 10 mg oral tablet 10 mg, 1, tablet, By Mouth, Daily, # 30 tablet, Refills 0, Maintenance, 03/15/22 10:49:00 PM EDT, Partial fill upon patient request if the prescription is for a schedule II opioid drug. Start Date: 03/15/22 Status: Ordered Quantity: 30.0 Unit: tablet Repeat number: 1 MetFORMIN (Eqv-Glucophage XR) 500 mg oral tablet, extended release 1 tablet = 500 mg, By Mouth, Daily, 0 Refills, Maintenance, 12/04/24 3:28:00 PM EDT, Partial fill upon patient request if the prescription is for a schedule II opioid drug. Start Date: 12/04/24 Status: Ordered Repeat number: 1 nystatin 663282 u/ml oral suspension 4 mL = 400,000 units, By Mouth, 4 times a day, PRN Other, as needed for oral thrush, 0 Refills, Maintenance, 06/01/20 2:57:00 PM EDT Start Date: 06/01/20 Status: Ordered Repeat number: 1 OXcarbazepine 300 mg oral tablet 300 mg, 1, tablet, By Mouth, 2 times a day, # 180 tablet, Refills 1, Tot. Refills 1, Maintenance, 02/10/25 8:47:00 AM EDT, Route to Pharmacy Electronically, [facility]/pharmacy #[id number], Partial fill upon patient request if the prescription is for a schedule II opioid drug., 163, cm, 02/10/25 8:06:00 EDT, Height, 67, kg, 12/04/24 13:14:00 EDT, Dry Weight Start Date: 02/10/25 Status: Ordered Quantity: 180.0 Unit: tablet Repeat number: 2 Singulair 10 mg oral tablet 10 mg, 1, tablet, By Mouth, Daily in PM, # 30 tablet, Refills 0, Maintenance, 01/13/18 2:10:53 PM EDT Start Date: 01/13/18 Status: Ordered Quantity: 30.0 Unit: tablet Repeat number: 1 Synthroid 0.2 mg oral tablet 0 Refills, Maintenance, 10/28/24 7:55:00 AM EST, Partial fill upon patient request if the prescription is for a schedule II opioid drug. Start Date: 10/28/24 Status: Ordered Repeat number: 1 Synthroid 0.2 mg oral tablet 1 tablet = 200 mcg, By Mouth, Daily, Maintenance, 12/04/24 3:26:00 PM EDT, Tablet, Partial fill uponpatient request if the prescription is for a schedule II opioid drug. Start Date: 12/04/24 Status: Ordered Repeat number: 1 theophylline 400 mg/24 hours oral tablet, extended release 0.5 tablet = 200 mg, By Mouth, Every 12 hours, # 60 tablet, 0 Refills, Maintenance, 10/26/21 9:52:00 AM EST, ER Tablet, Partial fill upon patient request if the prescription is for a schedule II opioiddrug. Start Date: 10/26/21 Status: Ordered Quantity: 60.0 Unit: tablet Repeat number: 1 Ventolin 90 mcg Inhaler [...] Care team information Care Team Personnel Name: Tiffanie Duncan RN Position: [facility] RN Member Role: Primary Care Nurse Name: Saúl Ellington Position: Reference Physician Member Role: PCP Address: [address] [facility] [address] [place], [place] [address] Telecom: Name: Felisha Guillen NP Position: [facility] Associate Professional Member Role: Lifetime Consulting Provider Address: [address] [place] [address] [address] [facility] [place], [place] [address] Telecom: Name: Evette Lebron RN Position: S RN Member Role: Primary Care Nurse Name: Ernesto May RN Position: S RN Member Role: Primary Care Nurse Name: Evette Choudhary NP Position: [facility] PCO Associate Professional Member Role: Primary Care Nurse Address: [address] [facility] 3rd Floor [place], [place] [address] Telecom: Name: Elizabeth Roth RN Position: S RN Member Role: Primary Care Nurse Name: Yvan Leung MD Position: [facility] Outreach Member Role: Lifetime Consulting Physician Address: [address] [facility] [address] [facility], [place] [address]- Telecom: Name: Jeannette Garcia RN Position: S RN Member Role: Primary Care Nurse Name: Kelsey Parra RN Position: [facility] RN Member Role: Primary Care Nurse Name: Karen Littlejohn RN Position: [facility] RN Member Role: Primary Care Nurse Name: Dominick Sinha RN Position: [facility] RN Member Role: Primary Care Nurse Name: Jennifer Crisostomo RN Position: [facility] RN Member Role: Primary Care Nurse Name: Janell Andres RN Position: [facility] RN Member Role: Primary Care Nurse Care Team Related Persons Name: TORIE MACKAY Name: KYLE MACKAY Insurance Providers Guarantor name: [facility] Plan Information #: 1 Payer: [employer] Payer Identifier: GARRETT Member Number: [id number] Group Number: [id number] Subscriber Identifier: [id number] Relationship to Subscriber: self Coverage Type: NA Coverage Verification Date: NA Telecom: NA Address:
--- NOTE | ~2025-04-20 | US_ITS ---
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 FINDINGS: Multiple lymph nodes are again noted bilaterally as described below: Right level II/III lymph node measuring 1.5 x 0.5 x 0.9 cm (previously 1.0 x 1.3 x 0.4 cm). This node demonstrates a prominent fatty hilum. Right level III node measuring 0.8 x 0.3 x 0.5 cm (previously 0.9 x 0.3 x 0.5 cm). Left level III node measuring 0.9 x 0.5 x 0.4 cm (previously 0.9 x 0.3 x 0.5 cm). Right level VA lymph node measuring 0.4 x 0.3 x 0.2 cm (previously 0.3 x 0.2 x 0.3 cm). Right level VA lymph node measuring 0.8 x 0.4 x 0.4 cm (not seen previously). Left level III node measuring 0.7 x 0.4 x 0.5 cm (not seen previously). US/US soft tiss head and/or neck IMPRESSION: A single lymph node on the right measures greater than 1.5 cm in greatest dimension, slightly larger than on the prior study, but demonstrating a prominent fatty hilum. Multiple additional bilateral subcentimeter lymph nodes as described. Electronically signed by: Ramses Kerr MD 04/20/2025 01:29 PM EDT
--- OUTSIDE RECORDS SUMMARY | 2025-04-20 13:04 | XMS_ITS | Clinical Summary ---
Author Organization [facility] [address] [facility] Address [address] [place] [address] Phone Care Team Providers Care Society Editor Name Role Phone Saúl Maier Primary Care Provider [phone] Allergies Active Allergy Reactions Criticality Noted Date [...] Date COPD (chronic obstructive pu lmonary disease) ([facility] V24, [facility] V28) 10/03/2017 Allergic rhinitis 07/14/2017 Asthma-chronic obstructive p ulmonary disease overlap syndrome ([facility] V24, [facility] V28) 04/16/2017 Obstructive sleep apnea syndrome 04/16/2017 Asthma 12/08/2016 Gastroesophageal reflux disease 12/08/2016 Encounters Date Type Department Care Team Description 02/23/2025 3:30 PM EDT Office Visit Pulmonology [address] [address] Anabel Garvin MD Severe asthma, unspecified whether complicated, unspecified whether persistent (Primary Dx) 02/23/2025 Telephone Pulmonology [address] [address] Cassandra Bryan MA from Last 3 Months Medical History Medical History Date Comments Allergic rhinitis 07/14/2017 DX:Allergic rh initis Asthma 12/08/2016 DX:Asthma Asthma-chronic obstructive p ulmonary disease overlap syndrome ([facility] V24, [facility] V28) 04/16/2017 DX:Asthma-chronic obstructiv e pulmonary disease overlap syndrome (HCC) Gastroesophageal reflux disease 12/08/2016 DX:Gastroesophageal reflux disease Obstructive sleep apnea syndrome 04/16/2017 DX:Obstructive sleep apnea syndrome COPD (chronic obstructive pu lmonary disease) ([facility] V24, [facility] V28) 10/03/2017 DX:COPD (chronic o bstructive pulmonary disease) (HCC) Social History Tobacco Use Types Packs/Day Years [...] Care Team (Late st Contact Info) Description 04/21/2025 8:00 AM EDT Office Visit Pulmonology - [address] [address] Anabel Garvin MD [address] [place] [address] Health Maintenance Due Date Last Done Comments [...] CBC auto differential (02/23/2025 1:31 PM EDT) [facility] WBC 8.5 4.8 - 10.8 K/mcL LAB [facility]OLOG[facility] RBC 5.40 4.50 - 5.50 M/mcL LAB HEMETOLOGY METHOD 02/23/2025 3:00 PM [facility] Hemoglobin 15.8 13.5 - 17.5 g/dL LAB HEMETOLOGY METHOD [facility] Hematocrit 48.0 42.0 - 54.0 % LAB HEMETOLOGY METHOD 02/23/2025 3:00 PM [facility] MCV 88.7 79.0 - 98.0 FL LAB HEMETOLOGY METHOD 02/23/2025 3:00 PM [facility] MCH 29.2 27.0 - 32.0 pcg LAB HEMETOLOGY METHOD 02/23/2025 3:00 PM [facility] MCHC 32.9 32.0 - 37.0 g/dL LAB HEMETOLOGY METHOD 02/23/2025 3:00 PM [facility] RDW 13.3 11.0 - 15.0 % LAB HEMETOLOGY METHOD 02/23/2025 3:00 PM [facility] Platelets 428(H) 130 - 400 K/mcL LAB HEMETOLOGY METHOD 02/23/2025 3:00 PM [facility] MPV 9.0 7.0 - 11.0 FL LAB HEMETOLOGY METHOD 02/23/2025 3:00 PM [facility] NRBC 0.0 <1.0 % LAB HEMETOLOGY METHOD 02/23/2025 3:00 PM [facility] NRBC Absolute 0.00 <0.10 K/mcL LAB HEMETOLOGY METHOD 02/23/2025 3:00 PM [facility] Neutrophils Relative 59.7 % LAB HEMETOLOGY METHOD 02/23/2025 3:00 PM [facility] Lymphocytes Relative 28.8 % LAB HEMETOLOGY METHOD 02/23/2025 3:00 PM [facility] Monocytes Relative 6.4 % LAB HEMETOLOGY METHOD 02/23/2025 3:00 PM [facility] Eosinophils Relative 3.8 % LAB HEMETOLOGY METHOD 02/23/2025 3:00 PM [facility] Basophils Relative 0.8 % LAB HEMETOLOGY METHOD 02/23/2025 3:00 PM [facility] Immature Granulocytes Relative 0.5 % LAB HEMETOLOGY METHOD 02/23/2025 3:00 PM [facility] Neutrophils Absolute 5.09 1.50 - 7.00 K/mcL LAB HEMETOLOGY METHOD 02/23/2025 3:00 PM [facility] Lymphocytes Absolute 2.46 1.00 - 5.00 K/mcL LAB HEMETOLOGY METHOD 02/23/2025 3:00 PM [facility] Monocytes Absolute 0.55 0.20 - 1.00 K/mcL LAB HEMETOLOGY METHOD 02/23/2025 3:00 PM [facility] Eosinophils Absolute 0.32 0.00 - 0.50 K/mcL LAB HEMETOLOGY METHOD 02/23/2025 3:00 PM [facility] Basophils Absolute 0.07 0.00 - 0.20 K/mcL LAB HEMETOLOGY METHOD 02/23/2025 3:00 PM [facility] Immature Granulocytes Absolute 0.04(H) 0.00 - 0.03 K/mcL LAB HEMETOLOGY METHOD 02/23/2025 3:00 PM [facility] Blood Venous blood specimen / Unknown Venipuncture / Unknown 02/23/2025 1:31 PM EDT 02/23/2025 2:01 PM EDT Anabel Garvin MD LAB BLOOD ORDERABLES Final Result [facility] [address] [place] [address], [place] [phone] * Allergen aspergillus fumigatus IgE (02/23/2025 1:31 PM EDT) Aspergillus fumigatus, IgE <0.10 <0.10 kU/L 02/26/2025 12:01 PM EDT [facility] Aspergillus fumigatus Class CLASS 0 02/26/2025 12:01 PM EDT [facility] Comment: Test performed at [facility], [address] , [place] [address] Joan Curry MD, PhD - Tactical Response Group Officer Blood Venous blood specimen / Unknown Venipuncture / Unknown 02/23/2025 1:31 PM EDT 02/23/2025 2:02 PM EDT Anabel Garvin MD LAB BLOOD ORDERABLES Final Result [facility] [address] [place] [address] * Immunoglobulin IgE (02/23/2025 1:31 PM EDT) Pathologist [facility] IgE 12.5 0.0 - 158.0 I Unit/mL LAB CHEMISTRY METHOD 02/23/2025 6:43 PM EDT [facility] Blood Venous blood specimen / Unknown Venipuncture / Unknown 02/23/2025 1:31 PM EDT 02/23/2025 2:03 PM EDT Anabel Garvin MD LAB BLOOD ORDERABLES Final Result [facility] [address] [place] [address], [place] [phone] * (ABNORMAL) Basic metabolic panel (02/23/2025 1:31 PM EDT) Sodium 138 133 - 145 mmol/L LAB CHEMISTRY METHOD 02/23/2025 6:02 PM [facility] Potassium 3.9 3.5 - 5.5 mmol/L LAB CHEMISTRY METHOD 02/23/2025 6:02 PM [facility] Chloride 104 96 - 110 mmol/L LAB CHEMISTRY METHOD 02/23/2025 6:02 PM [facility] CO2 26 21 - 32 mmol/L LAB CHEMISTRY METHOD 02/23/2025 6:02 PM [facility] Anion Gap 8 3 - 11 LAB CHEMISTRY METHOD 02/23/2025 6:02 PM [facility] Glucose 127(H) 70 - 100 mg/dL LAB CHEMISTRY METHOD 02/23/2025 6:02 PM [facility] BUN 13 5 - 25 mg/dL LAB CHEMISTRY METHOD 02/23/2025 6:02 PM [facility] Creatinine 1.05 0.70 - 1.30 mg/dL LAB CHEMISTRY METHOD 02/23/2025 6:02 PM [facility] eGFR 89 >=60 mL/min/1. 73m2 LAB CHEMISTRY METHOD 02/23/2025 6:02 PM [facility] Comment:Calculation based on the Chronic Kidney Disease Epidemiology Collaboration (CKD-EPI) equation refit without adjustment for race. BUN/Creatinine Ratio 12.4 LAB CHEMISTRY METHOD 02/23/2025 6:02 PM [facility] Calcium 9.6 8.5 - 10.5 mg/dL LAB CHEMISTRY METHOD 02/23/2025 6:02 PM [facility] Blood Venous blood specimen / Unknown Venipuncture / Unknown 02/23/2025 1:31 PM EDT 02/23/2025 2:03 PM EDT us Anabel Garvin MD LAB BLOOD ORDERABLES Final Result [facility] [address] [place] [address], [place] [phone] from Last 3 Months Insurance [facility] [place] [address] Care Teams Society Editor Relationship Specialty Start Date End Date Saúl Maier PA [address] [place] [phone] PCP - General Physician Associate Professor Of Archaeology 12/09/24
--- OUTSIDE RECORDS SUMMARY | 2025-04-20 13:04 | XMS_ITS | Clinical Summary ---
Author Organization [facility] Facility Address [address] [address] Care Team Providers Care Personalized Living Manager Nurse Name Role Phone Saúl Maier Primary Care Provider [phone] Allergies No known active allergies Medications acetaminophen [...] Influenza Vaccine (#1) 2025 Insurance Care Teams Personalized Living Manager Nurse Relationship Specialty Start Date End Date Saúl Maier PA [address] [place] [address], [address] [place] [address] PCP - General Physician Java [email or web address] Application Developer 01/30/22
== END 2025-04-20 12:45 | disposition home or self-care (01) ==
LOC: HO.US 12:44
PROVIDERS: PCP Physician Assistant; Visit Provider Student in an Organized Health Care Education/Training Program
DX: C73 Malignant neoplasm of thyroid gland (principal)
CPT/HCPCS: 76536

== ENCOUNTER → 2025-04-20 12:46 | Outpatient (BNV) | payer OTHER, SELFPAY | PROVIDERS: PCP Physician Assistant; Visit Provider Radiology Diagnostic Radiology | DX: R59.0 Localized enlarged lymph nodes (principal) | CPT/HCPCS: 76536 ==

== ENCOUNTER 2025-05-11 06:10 | Inpatient (IN) | payer OTHER, SELFPAY ==
--- OUTSIDE RECORDS SUMMARY | 2025-05-09 23:59 | XMS_ITS | Continuity of Care Document ---
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 Name Role Phone Saúl Ellington Primary Care Physician Encounter [facility] Date(s): 04/09/25 - 05/09/25 [facility] [address], [address] [place] [id number] Encounter Type: Triage Allergies, Adverse Reactions, Alerts No Known Allergies Medications Airsupra 90 mcg-80 mcg/inh inhalation aerosol 2 inhalation, Inhalation, 3 times a day, PRN Wheezing/Shortness of Breath Start Date: 12/04/24 Status: Ordered Repeat number: 1 atorvastatin 80 mg oral tablet = 80 mg, By Mouth, Daily at bedtime, # 30 tablet, 0 Refills, Maintenance, 12/08/24 1:44:00 PM EDT, Tablet, [facility], Partial fill upon patient [...] 2:50:00 PM EDT, Route to Pharmacy Electronically, [facility]/pharmacy #[id number], Partial fill upon patient request if the [...] 1:44:00 PM EDT, Route to Pharmacy Electronically, [facility], Partial fill upon patient request if [...] Refills, Maintenance, 12/01/21 2:50:00 PM EDT, Tablet, [facility]/pharmacy #[id number], Partial fill upon patient request [...] 2 Refills, Maintenance, 03/16/25 12:38:00 PMEDT, Tablet, [facility]/pharmacy #[id number], 163, cm, 02/10/25 8:06:00 EDT, Height, 67, kg, 12/04/24 13:14:00 EDT, Dry Weight Start Date: 03/16/25 Status: Ordered Quantity: 60.0 Unit: tablet Repeat number: 3 dapagliflozin 10 mg oral tablet 1 tablet = 10 mg, By Mouth, Daily, # 90 tablet, 0 Refills, Maintenance, 12/08/24 1:44:00 PM EDT, Tablet, [facility], Partial fill upon patient [...] Refills, Maintenance, 02/10/25 8:49:00 AM EDT, Tablet, [facility]/pharmacy #[id number], Partial fill upon patient request [...] 12/04/24 Status: Ordered Repeat number: 1 nystatin [id number] u/ml oral suspension 4 mL = 400,000 units, By Mouth, 4 times a day, PRN Other, as needed for oral thrush, 0 Refills, Maintenance, 06/01/20 2:57:00 PM EDT Start Date: 06/01/20 Status: Ordered Repeat number: 1 Singulair 10 mg oral [...] team information Care Team Personnel Name: Tiffanie Dnucan RN Position: S RN Member Role: Primary Care Nurse Name: Saúl Ellington Position: Reference Physician Member Role: PCP Address: [address] [place] [address]- [place] Tele[employer]: Name: Felisha Guillen NP Position: [facility] Associate Professional Member Role: Lifetime Consulting Provider Address: [address] [facility] [place] [address]- [place] [employer]: Name: Evette Lebron RN Position: [facility] RN Member Role: Primary Care Nurse Name: Ernesto May RN Position: [facility] RN Member Role: Primary Care Nurse Name: Evette Choudhary NP Position: [facility] PCO Associate Professional Member Role: Primary Care Nurse Address: [address]rd [place] [address]- [place] [employer]: Name: Elizabeth Roth RN Position: S RN Member Role: Primary Care Nurse Name: Yvan Leung MD Position: S Outreach Member Role: Lifetime Consulting Physician Address: [address] [facility] [place] [address]- [place] [employer]: Name: Jeannette Garcia RN Position: S RN Member Role: Primary Care Nurse Name: Kelsey Parra RN Position: S RN Member Role: Primary Care Nurse Name: Karen Littlejohn RN Position: S RN Member Role: Primary Care Nurse Name: Dominick Sinha RN Position: S RN Member Role: Primary Care Nurse Name: Jennifer Crisostomo RN Position: S RN Member Role: Primary Care Nurse Name: Janell Andres RN Position: [place] RN Member Role: Primary Care Nurse Care Team Related Persons Name: TORIE MACKAY Name: KYLE MACKAY Insurance Providers Guarantor name: [facility] Plan Information #: 1 Payer: [employer] (?) [employer] Payer Identifier: NA Member Number: [id number] Group Number: [id number] Subscriber Identifier: [id number] Relationship to Subscriber: self Coverage Type: NA Coverage Verification Date: NA Telecom: Address:
[2025-05-11] VITALS (9 sets, daily range): BP systolic 89–161; BP diastolic 38–100; PULSE 67–110; RESP 16–26; TEMP 36.7–37.3; O2SAT 95–100; BMI 25.8; BMI 26.2
--- NOTE | ~2025-05-11 | CT_ITS ---
EXAMINATION: CT HEAD WITHOUT CONTRAST CLINICAL INFORMATION: headache, seizure COMPARISON: December 03, 2024 TECHNIQUE: Contiguous axial imaging was performed from the skull base to vertex without intravenous administration of contrast. This CT examination was performed using dose optimization techniques as appropriate, variously including the following: *Automated exposure control *Adjustment of mA and/or kV according to patient size (this includes techniques or standardized protocols for targeted exams where dose is matched to indication/reason for exam; i.e. extremities or head) *Use of iterative reconstruction technique DLP: 635 mGy-cm FINDINGS: No acute cortical disruption in the bony calvarium. Probable old traumatic deformities in the nasal bones. No acute intracranial hemorrhage, mass effect, midline shift, hydrocephalus or herniation. Vora-white matter differentiation is normal. Posterior cranial fossa contents demonstrated no gross hemorrhage. Normal position of the cerebellar tonsils. No gross hematoma in the intraconal or extraconal compartments of the orbits. Retention cysts versus polyp, left maxillary sinus. Small retention cyst in the left saphenous sinus. Tympanic cavities and mastoid cells are aerated.. CT/CT head/brain wo IV con IMPRESSION: No acute fracture, bony calvarium. No acute intracranial hemorrhage. Electronically signed by: Jose Hudson MD 05/11/2025 07:57 AM EDT
--- NOTE | 2025-05-11 06:21 | ECG_ITS ---
Test Reason : SEIZURE Blood Pressure : */* mmHG Vent. Rate : 92 BPM Atrial Rate : 92 BPM P-R Int : 168 ms QRS Dur : 88 ms QT Int : 364 ms P-R-T Axes : 46 4 60 degrees QTcB Int : 450 ms Normal sinus rhythm Nonspecific ST abnormality Abnormal ECG When compared with ECG of 06-Apr-2025 08:03, No significant change was found Referred By: Generic ED Physician Electronically Signed By: JEAN ALVARENGA
[2025-05-11 06:30] LABS: Glucose, Whole Blood 142 mg/dL (60-115)
--- NOTE | 2025-05-11 06:38 | ED.SEIZURE ---
HPI - Seizure General Chief Complaint: Seizure Stated Complaint: Seizure , lethargic Time Seen by Provider: 05/11/25 06:27 Source: patient, EMS and old records reviewed Mode of arrival: EMS Limitations: altered mental status History of Present Illness ED Provider: Dr. Mariel Rico HPI Narrative: 44-year-old male with a history of seizure disorder on multiple antiepileptics presenting by EMS with reported breakthrough seizure. EMS was called to the home when his parents witnessed a tonic-clonic seizure. Patient was initially postictal but slowly became alert and oriented, able to ambulate onto the stretcher for EMS. Upon arrival to the emergency department, patient is actively vomiting. He does admit to several days of diarrhea prior to this. No questionable food intake or recent travel. No known sick contacts. Had been feeling well prior to this. Reports that he is being weaned off of his oxcarbazepine and this is likely why he had a breakthrough seizure today. He also takes Vimpat and clobazam which he is taking as prescribed. Denies associated fevers. Denies headache or vision changes. He is also a diabetic and reports his blood sugars have been sort of labile lately and he does not know why. The other day he had a low sugar of 59. He admits he has been eating. Denies chest pain, difficulty breathing, abdominal pain, urinary complaints. Denies illicit substance use. He has not had any alcohol in over 20 years. Seizure History: Yes Related Data Home Medications ?Medication ?Instructions ?Recorded ?Confirmed clobazam 10 mg tablet 5 mg PO BID 12/11/23 04/09/25 hydroxyzine HCl 25 mg tablet 25 mg PO BEDTIME PRN Anxiety 06/11/24 04/09/25 levothyroxine 200 mcg tablet 200 mcg PO DAILY@59912/03/24 04/09/25 (Synthroid) levothyroxine 25 mcg tablet 12.5 mcg PO DAILY@59912/03/24 04/09/25 (Synthroid) lisinopril 10 mg tablet 10 mg PO DAILY 12/03/24 04/09/25 oxcarbazepine 600 mg tablet 600 mg PO BID 12/03/24 04/09/25 sertraline 100 mg tablet 100 mg PO BEDTIME 12/03/24 04/09/25 sucralfate 1 gram tablet 1 g PO DAILY 12/03/24 04/09/25 atorvastatin 80 mg tablet 80 mg PO DAILY 12/19/24 04/09/25 carvedilol 6.25 mg tablet 6.25 mg PO BID 12/19/24 04/09/25 dapagliflozin propanediol 10 mg 10 mg PO DAILY 12/19/24 04/09/25 tablet (Farxiga) lacosamide 150 mg tablet mg PO 12/19/24 04/09/25 ipratropium 0.5 mg-albuterol 3 mg 3 ml inhalation DAILY 04/09/25 04/09/25 (2.5 mg base)/3 mL nebulization soln Previous Rx's ?Medication ?Instructions ?Recorded Sharps container #1 ea 12/18/22 aspirin 81 mg tablet,delayed 81 mg PO DAILY 90 days #90 tabs 01/03/23 release montelukast 10 mg tablet 10 mg PO BEDTIME 90 days #90 tabs 03/12/24 nystatin 100,000 unit/mL oral 5 ml PO DAILY PRN thrush 30 days 07/09/24 suspension #200 mL theophylline 400 mg 200 mg (1/2 x 400 mg) PO DAILY #45 08/18/24 tablet,extended release 24 hr tabs albuterol 90 mcg-budesonide 80 2 inh inhalation TID PRN shortness 09/22/24 mcg/actuation HFA aerosol inhaler of breath #10.7 grams (Airsupra) Ventolin HFA 90 mcg/actuation 2 puff PO Q6H PRN for dyspnea #3 ea 12/29/24 aerosol inhaler (albuterol sulfate) cholecalciferol (vitamin D3) 50 100 mcg (2 x 50 mcg (2,000 unit)) 25 mcg (2,000 unit) capsule PO DAILY 90 days #180 caps metformin 500 mg tablet,extended 500 mg PO BEDTIME #90 tabs 02/08/25 release 24 hr lansoprazole 30 mg capsule,delayed 30 mg PO DAILY #90 caps 03/16/25 release blood sugar diagnostic (FreeStyle #100 ea 04/02/25 Lite Strips) blood-glucose meter (FreeStyle #1 ea 04/02/25 Lite Meter kit) lancets 28 gauge (FreeStyle #100 ea 04/02/25 Lancets) Allergies Allergy/AdvReac Type Severity Reaction Status Date / Time cat dander (CATS) Allergy Mild GENERALIZED Verified 05/11/25 06:29 ALLERGY SYMPTOMS dog dander (DOGS) Allergy Mild GENERALIZED Verified 05/11/25 06:29 ALLERGY SYMPTOMS tree and shrub pollen (TREE) Allergy Mild GENERALIZED Verified 05/11/25 06:29 ALLERGY SYMPTOMS FROM P[place] TREES Review of Systems Review of Systems: As per HPI, full review of systems performed and negative but for the above mentioned pertinent positives and negatives. [facility] Past Medical History Medical History Breakthrough seizure Cardiomyopathy Uvulitis Claustrophobia Takotsubo cardiomyopathy Schatzki's ring Gastritis Sleep apnea Diabetes Gastroparesis Migraine headache with aura Enlarged liver Postoperative hypothyroidism Thyroid cancer Vitamin D deficiency Multinodular thyroid Seizures ABPA (allergic bronchopulmonary aspergillosis) Seizures Asthma Surgical History S/P total thyroidectomy History of esophagogastroduodenoscopy (EGD) S/P removal of thyroid nodule History of cholecystectomy Family History Family History Maternal Grandmother Emphysema, unspecified Father Diabetes Mother No problems noted. Paternal Grandfather Liver cancer Colon cancer Social History Social History Household Members: Family Housing: Apartment Are you a primary day care center director to a significant other at home: No Do you presently have visiting nurse or other home services: No Alcohol intake: never Comment: has poor balance Patient Tobacco Use Status: Never used Tobacco Smoked in Last 30 Days: No e-Cigarette/Vaping Use: Never Used Second Hand Smoke Exposure: No Use of substances other than those prescribed or required for medical reasons: No Substance Use Type: Marijuana Advance Directives: No Advance Directives Information Provided: Yes Advance Directives Date on File: 05/20/23 Do you have a plan to hurt others: No Plan service: No Current occupational status: disabled Current occupation: rt handed Cognitive needs: No Hearing needs: No Vision needs: No Physical Exam Exam: Exam: GENERAL: Ill-Appearing, appears uncomfortable. SKIN: Normal skin color for ethnicity, warm, dry, no rashes noted. HEENT: Normocephalic, atraumatic, no stridor, dry mucous membranes, dentition intact, EOMI, PERRLA. NECK: Soft, supple, full ROM, midline structures nontender, no step-offs, no deformities, no lymphadenopathy. CHEST: Heart regular tachycardia, no murmurs, symmetric chest rise and fall. PULMONARY: Clear to auscultation bilaterally, diminished at the bases, no labored breathing, no wheezes/rhales/rhonchi. ABDOMINAL: Soft, nondistended, nontender, positive bowel sounds in all quadrants. : Deferred. MUSCULOSKELETAL: Normal tone, full range of motion, no deformities, no peripheral edema. NEURO: Alert and oriented x3, CN II through XII intact, equal strength and sensation bilateral upper and lower extremities, no focal neurologic deficits. PSYCHIATRIC: Flat affect, fluid speech, good eye contact and appropriate demeanor. Vital Signs: Vital Signs: Last Vital Signs Temp 99.0 F 05/11/25 10:33 Pulse 88 05/11/25 10:33 Resp 22 H 05/11/25 10:33 BP 96/58 L 05/11/25 10:33 Pulse Ox 98 05/11/25 10:33 O2 Del Method Room Air 05/11/25 10:33 O2 Flow Rate 15 05/11/25 08:00 BMI result Body Mass Index 25.8 Course Reevaluation(s) Reevaluation #1: Known history of seizure patient is compliant with his medication, recent change in his antiseizure medication, head to seizure today with elevated troponin, the case was discussed with Dr. Barker and patient had cardiac catheterization this year and was clean. In between episode of seizure patient had no chest pain, EKG shows no ischemic changes. Patient was given while loading dose of Keppra and 5 mg of Valium for active seizure. Admit to medical. Time: 11:33 Medications Administered Discontinued Medications Generic Name Dose Route Start Last Admin Trade Name Freq PRN Reason Stop Dose Admin Acetaminophen 975 mg 05/11/25 09:55 05/11/25 10:01 Acetaminophen 325 Mg Tablet PO 05/11/25 09:56 975 mg ONCE ONE Administration Diazepam 10 mg 05/11/25 08:02 05/11/25 09:11 Diazepam 10 Mg/2 Ml Cartridge IVPUSH 05/11/25 08:03 10 mg STAT STA Administration Levetiracetam 1,000 mg in 100 mls @ 400 mls/hr 05/11/25 09:44 05/11/25 10:14 Keppra IV 05/11/25 09:58 Infused ONCE ONE Infusion Metoclopramide HCl 10 mg 05/11/25 06:28 05/11/25 06:37 Metoclopramide Hcl 10 Mg/2 Ml Vial IVPUSH 05/11/25 06:29 10 mg ONCE ONE Administration Ondansetron HCl 4 mg 05/11/25 06:16 05/11/25 06:37 Ondansetron Hcl 4 Mg/2 Ml Vial IVPUSH 05/11/25 06:17 Not Given ONCE ONE Medical Decision Making Medical Decision Making [facility] Narrative: Patient presents today with chief complaint of seizure activity. Differential diagnosis includes breakthrough seizure, medication noncompliance, intracranial pathology such as hemorrhage or embolism, infectious process such as meningitis, stimulant use or drug toxicity, hyperthyroidism, electrolyte abnormality, nonepileptic seizure activity (psychogenic seizure activity), among many others. Broad-based workup initiated to rule out emergent causes though I suspect this is a breakthrough seizure due to his change in medications. Signing out to oncoming provider pending CT, lab results and final disposition. Differential Diagnosis Differential Diagnoses: The differential diagnosis associated with the presentation includes Admission/Observation Consideration of admission/observation: Escalation of care including admission/observation considered Lab Data [facility] Lab Attestation statement: I reviewed the patient's lab results. 05/11/25 06:41 05/11/25 10:11 Labs: Lab Results 05/11/25 05/11/25 05/11/25 Range/Units 06:27 06:41 06:42 WBC 13.8 H (4.8-10.8) X10*3/uL RBC 5.22 (4.60-5.80) X10*6/uL Hgb 15.5 (14.0-18.0) g/dl Hct 45.2 (42.0-52.0) % MCV 86.6 (80.0-98.0) fL MCH 29.7 (27.0-33.0) pg MCHC 34.3 (31.0-36.0) g/dl RDW 14.0 (11.0-16.0) % Plt Count 337 (160-400) X10*3/uL MPV 8.8 L (9.4-12.4) fL Immature Gran % (Auto) 0.8 H (0.0-0.4) % Neut % (Auto) 84.9 H (45-73) % Lymph % (Auto) 6.7 L (20-40) % Sanborn % (Auto) 6.8 (2-11) % Eos % (Auto) 0.4 (0-4) % Baso % (Auto) 0.4 (0-2) % Lymph # (Auto) 0.9 L (1.2-4.9) X10*3/uL Sanborn # (Auto) 0.9 (0.1-1.2) X10*3/uL Eos # (Auto) 0.1 (0.0-0.4) X10*3/uL Baso # (Auto) 0.1 (0.0-0.2) X10*3/uL Abs Immat Gran (auto) 0.11 H (0.00-0.03) X10*3/uL Absolute Neuts (auto) 11.7 H (2.0-8.3) x10*3/uL Absolute Nucleated RBC 0.000 (0.0-0.012) X10*3/uL Nucleated RBC % (auto) 0.0 (0.0-0.2) /100WBC VBG pH (7.32-7.43) VBG pCO2 mmHg VBG pO2 mmHg VBG HCO3 (22-26) mmol/L VBG O2 Saturation % VBG Base Excess mmol/L Sodium 140 (135-145) mmol/L Potassium 3.9 (3.3-5.1) mmol/L Chloride 111 H (96-108) mmol/L Carbon Dioxide 17 L (22-29) mmol/L Anion Gap 16 (12-20) BUN 10 (9-16) mg/dL Creatinine 0.98 (0.5-1.4) mg/dL Estim Creat Clear Calc 82.8 Estimated GFR > 60 POC Glucose 142 H (60-115) mg/dL Random Glucose 122 H (60-115) mg/dL Calcium 9.3 (8.4-10.2) mg/dL Magnesium 2.2 (1.6-2.6) mg/dL Total Bilirubin 0.3 (0.0-1.0) mg/dL AST 25 (5-37) U/L ALT 24 (0-40) U/L Alkaline Phosphatase 88 (39-117) U/L Troponin I High Sens 216.2 H* D (<3.5-35.0) ng/L Total Protein 6.9 (6.5-8.0) g/dL Albumin 4.8 (3.5-5.0) g/dL Beta-Hydroxybutyrate 0.05 (0.02-0.27) mmol/L Influenza Type A (ARIANNA) Negative (Negative) Influenza Type B (ARIANNA) Negative (Negative) Influenza A & B Note See Note 05/11/25 05/11/25 Range/Units 06:50 10:11 WBC (4.8-10.8) X10*3/uL RBC (4.60-5.80) X10*6/uL Hgb (14.0-18.0) g/dl Hct (42.0-52.0) % MCV (80.0-98.0) fL MCH (27.0-33.0) pg MCHC (31.0-36.0) g/dl RDW (11.0-16.0) % Plt Count (160-400) X10*3/uL MPV (9.4-12.4) fL Immature Gran % (Auto) (0.0-0.4) % Neut % (Auto) (45-73) % Lymph % (Auto) (20-40) % Sanborn % (Auto) (2-11) % Eos % (Auto) (0-4) % Baso % (Auto) (0-2) % Lymph # (Auto) (1.2-4.9) X10*3/uL Sanborn # (Auto) (0.1-1.2) X10*3/uL Eos # (Auto) (0.0-0.4) X10*3/uL Baso # (Auto) (0.0-0.2) X10*3/uL Abs Immat Gran (auto) (0.00-0.03) X10*3/uL Absolute Neuts (auto) (2.0-8.3) x10*3/uL Absolute Nucleated RBC (0.0-0.012) X10*3/uL Nucleated RBC % (auto) (0.0-0.2) /100WBC VBG pH 7.26 L (7.32-7.43) VBG pCO2 37 mmHg VBG pO2 49 mmHg VBG HCO3 17 L (22-26) mmol/L VBG O2 Saturation 74.0 % VBG Base Excess -9.0 mmol/L Sodium 141 (135-145) mmol/L Potassium 4.3 (3.3-5.1) mmol/L Chloride 112 H (96-108) mmol/L Carbon Dioxide 20 L (22-29) mmol/L Anion Gap 13 (12-20) BUN 12 (9-16) mg/dL Creatinine 0.96 (0.5-1.4) mg/dL Estim Creat Clear Calc 84.5 Estimated GFR > 60 POC Glucose (60-115) mg/dL Random Glucose 106 (60-115) mg/dL Calcium 9.3 (8.4-10.2) mg/dL Magnesium (1.6-2.6) mg/dL Total Bilirubin (0.0-1.0) mg/dL AST (5-37) U/L ALT (0-40) U/L Alkaline Phosphatase (39-117) U/L Troponin I High Sens 708.3 H* D (<3.5-35.0) ng/L Total Protein (6.5-8.0) g/dL Albumin (3.5-5.0) g/dL Beta-Hydroxybutyrate (0.02-0.27) mmol/L Influenza Type A (ARIANNA) (Negative) Influenza Type B (ARIANNA) (Negative) Influenza A & B Note Independent Interpretation I performed an independent interpretation of an: EKG Interpretation: My independent interpretation of the ECG reveals normal sinus rhythm with rate of 92, normal axis, normal intervals, no ST elevations or depressions to suggest ischemic changes, no previous for comparison. Independent Historian Clinical information obtained from an independent historian. History obtained from or confirmed by: EMS External Record Review External record reviewed: Inpatient record Chronic Conditions Patient?s care impacted by: Diabetes and Other (Epilepsy) Discharge Plan Discharge Clinical Impression: Breakthrough seizure, Nausea vomiting and diarrhea, Elevated troponin Patient Disposition: Admitted As Inpatient Print Language: Kazakh
[2025-05-11 06:50] LABS: MANUAL DIFF FLAG NO
[2025-05-11 06:53] LABS: Hematocrit 45.2 % (42.0-52.0); Hemoglobin 15.5 g/dl (14.0-18.0); Imm Gran Abs Auto 0.11 X10*3/uL (0.00-0.03); Imm Gran Pct Auto 0.8 % (0.0-0.4); Lymphocytes Absolute Auto 0.9 X10*3/uL (1.2-4.9); Mean Corpuscular HGB Conc 34.3 g/dl (31.0-36.0); Mean Corpuscular Hemoglobin 29.7 pg (27.0-33.0); Mean Corpuscular Volume 86.6 fL (80.0-98.0); NRBC Abs Auto 0.000 X10*3/uL (0.0-0.012); NRBC Pct Auto 0.0 /100WBC (0.0-0.2); Platelet Count 337 X10*3/uL (160-400); Red Blood Count 5.22 X10*6/uL (4.60-5.80); White Blood Count 13.8 X10*3/uL (4.8-10.8)
[2025-05-11 06:54] LABS: Venous Blood Gas Refer to POC result
[2025-05-11 06:55] LABS: VBG HCO3 17 mmol/L (22-26); VBG O2 % Saturation 74.0 %
[2025-05-11 07:04] LABS: Alanine Aminotransferase 24 U/L (0-40); Albumin Level 4.8 g/dL (3.5-5.0); Alkaline Phosphatase 88 U/L (39-117); Anion Gap 16 (12-20); Aspartate Amino Transferase 25 U/L (5-37); Blood Urea Nitrogen 10 mg/dL (9-16); Calcium 9.3 mg/dL (8.4-10.2); Carbon Dioxide 17 mmol/L (22-29); Chloride 111 mmol/L (96-108); Creatinine Clr Calc Pharmacy 82.8; Estimated Glomerular Filt Rate > 60; Magnesium 2.2 mg/dL (1.6-2.6); Potassium 3.9 mmol/L (3.3-5.1); Sodium 140 mmol/L (135-145); Total Protein 6.9 g/dL (6.5-8.0)
[2025-05-11 07:07] LABS: IDNOW Serial# 55D5AD1C; Influenza B2 Negative (Negative)
[2025-05-11 07:14] LABS: Troponin-I High Sensitivity 216.2 ng/L (<3.5-35.0)
--- OUTSIDE RECORDS SUMMARY | 2025-05-11 07:27 | XMS_ITS | Clinical Summary ---
Author Organization [facility] 299 [facility] Address [address] [place] [address] Phone Care Team Providers Care Wine And Spirits Clerk Name Role Phone Saúl Maier Primary Care [...] Puff into the lungs daily. 7 Active sertraline (ZOLOFT) 25 mg tablet PLEASE SEE ATTACHED FOR DETAILED DIRECTIONS 5 Active OXcarbazepine (TRILEPTAL) 300 mg tablet Take 1 tablet (300 mg total) by mouth 2 (two) times a day. 5 Active cloBAZam (ONFI) 10 mg tablet Take 1 tablet (10 mg total) by mouth. Active lacosamide (VIMPAT) 200 mg tablet tablet Take 1 tablet (200 mg total) by mouth 2 (two) times a day. Active albuterol-budes onide (AIRSUPRA) 90-80 mcg/actuation inhaler Inhale 2 puffs by mouth 2 (two) times daily morning and afternoon. Active calcium carbonate (TUMS) 500 mg (200 mg elemental calcium) chewable tablet Chew 1 tablet (500 mg total) 1 (one) time each day. Active carvediloL (COREG) 6.25 mg tablet Take 1 tablet (6.25 mg total) by mouth 2 (two) times a day. 5 Active cholecalciferol (VITAMIN D-3) 50 mcg (2,000 unit) capsule TAKE 2 CAPSULES BY MOUTH EVERY DAY FOR 90 DAYS Active dupilumab (Dupixent Syringe) 300 mg/2 mL syringe Inject 2 mL every 2 weeks by subcutaneous route. Active lansoprazole (PREVACID) [address] capsule Take 1 capsule (30 mg total) by mouth 1 (one) time each day. 5 Active levothyroxine (SYNTHROID, LEVOTHROID) 175 mcg tablet 0.2 mcg. 2 Active lisinopriL (PRINIVIL,ZESTR IL) 10 mg tablet Take 1 tablet (10 mg total) by mouth 1 (one) time each day. 2 Active metFORMIN XR (GLUCOPHAGE-XR) 500 mg 24 hr tablet Take 1 tablet (500 mg total) by mouth at bedtime. Active theophylline (UNIPHYL) 400 mg 24 hr tablet Take 1 tablet (400 mg total) by mouth 1 (one) time each day. 2 Active nystatin (MYCOSTATIN) 100,000 unit/mL suspension Swish and swallow 4 (four) times a day. Active ipratropium-alb uteroL (DUONEB) 0.5-2.5 mg/3 mL nebulizer solutionIndicat ions:Severe asthma, unspecified whether complicated, unspecified whether persistent TAKE 3 ML BY NEBULIZATION 1 (ONE) TIME EACH DAY. 180 mL 5 03/30/20 26 Active sodium chloride 0.9 % nebulizer solution Take 3 mL by nebulization if needed for wheezing. 90 mL 6 5 04/21/20 26 Active Active Problems Problem Noted Date Diagnosed Date COPD (chronic obstructive pu lmonary disease) ([facility], [facility]28) 10/03/2017 Allergic rhinitis 07/14/2017 Asthma-chronic obstructive p ulmonary disease overlap syndrome ([facility], [facility]) 04/16/2017 Obstructive sleep apnea syndrome 04/16/2017 Asthma 12/08/2016 Gastroesophageal reflux disease 12/08/2016 Encounters Date Type Department Care Team Description 04/21/2025 8:00 AM EDT Office Visit Pulmonology [facility] [address] [phone] Anabel Garvin MD Severe asthma, unspecified whether complicated, unspecified whether persistent (Primary Dx); Stridor; Vocal cord dysfunction 02/23/2025 3:30 PM EDT Office Visit Pulmonology [address] [phone] Anabel Garvin MD Severe asthma, unspecified whether complicated, unspecified whether persistent (Primary Dx) 02/23/2025 Telephone Pulmonology [address] [phone] Cassandra Bryan MA from Last 3 Months Medical History Medical History Date Comments Allergic rhinitis 07/14/2017 DX:Allergic rh initis Asthma 12/08/2016 DX:Asthma Asthma-chronic obstructive p ulmonary disease overlap syndrome ([facility], [facility]) 04/16/2017 DX:Asthma-chronic obstructiv e pulmonary disease overlap syndrome (HCC) Gastroesophageal reflux disease 12/08/2016 DX:Gastroesophageal reflux disease Obstructive sleep apnea syndrome 04/16/2017 DX:Obstructive sleep apnea syndrome COPD (chronic obstructive pu lmonary disease) ([facility] V24, [facility] V28) 10/03/2017 DX:COPD (chronic o bstructive pulmonary disease) ([facility]) Social History Tobacco Use Types [...] Sign Reading Time Taken Comments Blood Pressure 143/88 04/21/2025 8:14 AM EDT Pulse 66 04/21/2025 8:14 AM EDT Temperature 36.5 C (97.7 F) 04/21/2025 8:14 AM EDT Respiratory Rate 18 02/23/2025 3:03 PM EDT Oxygen Saturation 100% 04/21/2025 8:14 AM EDT Inhaled Oxygen Concentration - - Weight 67.7 kg (149 lb 3.2 oz) 04/21/2025 8:14 A M EDT Height 165.1 cm (5' 5 ) 04/21/2025 8:14 AM EDT Body Mass Index 24.83 04/21/2025 8:14 AM EDT Plan of Treatment Health Maintenance Due [...] CBC auto differential (02/23/2025 1:31 PM EDT) [facility] WBC 8.5 4.8 - 10.8 /[facility] LAB HEMETOLOGY METHOD 02/23/2025 3:00 PM EDT [facility] RBC 5.40 4.50 - 5.50 M/mcL LAB HEMETOLOGY METHOD 02/23/2025 3:00 PM [facility] Hemoglobin 15.8 13.5 - 17.5 g/dL LAB HEMETOLOGY METHOD 02/23/2025 3:00 PM [facility] Hematocrit 48.0 42.0 - 54.0 % LAB HEMETOLOGY METHOD 02/23/2025 3:00 PM [facility] MCV 88.7 79.0 - 98.0 FL LAB HEMETOLOGY METHOD 02/23/2025 3:00 PM [facility] MCH 29.2 27.0 - 32.0 pcg LAB HEMETOLOGY METHOD 02/23/2025 3:00 PM [facility] MCHC 32.9 32.0 - 37.0 g/dL LAB HEMETOLOGY METHOD 02/23/2025 3:00 PM [facility] RDW 13.3 11.0 - 15.0 % LAB HEMETOLOGY METHOD 02/23/2025 3:00 PM [facility] Platelets 428(H) 130 - 400 K/mcL LAB HEMETOLOGY METHOD 02/23/2025 3:00 PM [facility] MPV 9.0 7.0 - 11.0 FL LAB HEMETOLOGY METHOD 02/23/2025 3:00 PM [facility] NRBC 0.0 <1.0 % LAB HEMETOLOGY METHOD 02/23/2025 3:00 PM [facility] NRBC Absolute 0.00 <0.10 K/mcL LAB HEMETOLOGY METHOD 02/23/2025 3:00 PM [facility] Neutrophils Relative 59.7 % LAB HEMETOLOGY METHOD 02/23/2025 3:00 PM [facility] Lymphocytes Relative 28.8 % LAB HEMETOLOGY METHOD 02/23/2025 3:00 PM [facility] Monocytes Relative 6.4 % LAB HEMETOLOGY METHOD 02/23/2025 3:00 PM [facility] Eosinophils Relative 3.8 % LAB HEMETOLOGY METHOD 02/23/2025 3:00 PM [facility] Basophils Relative 0.8 % LAB HEMETOLOGY METHOD 02/23/2025 3:00 PM [facility] Immature Granulocytes Relative 0.5 % LAB HEMETOLOGY METHOD 02/23/2025 3:00 PM [facility] Neutrophils Absolute 5.09 1.50 - 7.00 K/mcL LAB HEMETOLOGY METHOD 02/23/2025 3:00 PM [facility] Lymphocytes Absolute 2.46 1.00 - 5.00 K/mcL LAB HEMETOLOGY METHOD 02/23/2025 3:00 PM [facility] Monocytes Absolute 0.55 0.20 - 1.00 K/mcL LAB HEMETOLOGY METHOD 02/23/2025 3:00 PM [facility] Eosinophils Absolute 0.32 0.00 - 0.50 K/mcL LAB HEMETOLOGY METHOD 02/23/2025 3:00 PM [facility] Basophils Absolute 0.07 0.00 - 0.20 K/mcL LAB HEMETOLOGY METHOD 02/23/2025 3:00 PM [facility] Immature Granulocytes Absolute 0.04(H) 0.00 - 0.03 K/mcL LAB HEMETOLOGY METHOD 02/23/2025 3:00 PM [facility] Blood Venous blood specimen / Unknown Venipuncture / Unknown 02/23/2025 1:31 PM EDT 02/23/2025 2:01 PM EDT us Anabel Garvin MD LAB BLOOD ORDERABLES Final Result [facility] [address] [place] [address], [place] [phone] * Allergen aspergillus fumigatus IgE (02/23/2025 1:31 PM EDT) [facility] Aspergillus fumigatus, IgE <0.10 <0.10 kU/L 02/26/2025 12:01 PM EDT [facility] Aspergillus fumigatus Class CLASS 0 02/26/2025 12:01 PM EDT [facility] Comment: Test performed at [facility], [address], [place] [address] Joan Curry MD, PhD - Tong Carrier Blood Venous blood specimen / Unknown Venipuncture / Unknown 02/23/2025 1:31 PM EDT 02/23/2025 2:02 PM EDT Anabel Garvin MD LAB BLOOD ORDERABLES Final Result [facility] [address] [place] [address] * Immunoglobulin IgE (02/23/2025 1:31 PM EDT) [facility] IgE 12.5 0.0 - 158.0 I Unit/mL LAB CHEMISTRY METHOD 02/23/2025 6:43 PM EDT [facility] Blood Venous blood specimen / Unknown Venipuncture / Unknown 02/23/2025 1:31 PM EDT 02/23/2025 2:03 PM EDT Anabel Garvin MD LAB BLOOD ORDERABLES Final Result [facility] [address] [place] [address], [place] [phone] * (ABNORMAL) Basic metabolic panel (02/23/2025 1:31 PM EDT) Sodium 138 133 - 145 mmol/L LAB CHEMISTRY METHOD 02/23/2025 6:02 PM [facility] Potassium 3.9 3.5 - 5.5 mmol/L LAB CHEMISTRY METHOD 02/23/2025 6:02 PM [facility] Chloride 104 96 - 110 mmol/L LAB CHEMISTRY METHOD 02/23/2025 6:02 PM [facility] CO2 26 21 - 32 mmol/L LAB CHEMISTRY METHOD 02/23/2025 6:02 PM [facility] Anion Gap 8 3 - 11 LAB CHEMISTRY METHOD 02/23/2025 6:02 PM [facility] Glucose 127(H) 70 - 100 mg/dL LAB CHEMISTRY METHOD 02/23/2025 6:02 PM [facility] BUN 13 5 - 25 mg/dL LAB CHEMISTRY METHOD 02/23/2025 6:02 PM [facility] Creatinine 1.05 0.70 - 1.30 mg/dL LAB CHEMISTRY METHOD 02/23/2025 6:02 PM [facility] eGFR 89 >=60 mL/min/1. 73m2 LAB CHEMISTRY METHOD 02/23/2025 6:02 PM [facility] Comment:Calculation based on the Chronic Kidney Disease Epidemiology Collaboration (CKD-EPI) equation refit without adjustment for race. BUN/Creatinine Ratio 12.4 LAB CHEMISTRY METHOD 02/23/2025 6:02 PM [facility] Calcium 9.6 8.5 - 10.5 mg/dL LAB CHEMISTRY METHOD 02/23/2025 6:02 PM [facility] Blood Venous blood specimen / Unknown Venipuncture / Unknown 02/23/2025 1:31 PM EDT 02/23/2025 2:03 PM EDT us Anabel Garvin MD LAB BLOOD ORDERABLES Final Result [facility] [address] [place] [address], [place] [phone] from Last 3 Months Insurance [facility] [employer] Care Teams Wine And Spirits Clerk Relationship Specialty Start Date End Date Saúl Maier PA [address] [place] [phone] PCP - General Physician Tabular Typist 12/09/24
--- OUTSIDE RECORDS SUMMARY | 2025-05-11 07:27 | XMS_ITS | Encounter Summary ---
Author Organization [facility] Address [address] [place] [address] Care Team Providers Care Center Medical Director Name Role Phone Unavailable Primary Care Provider Unavailabl e Reason for Referral * Evaluation and Treatment (Elective) - Pending Review Specialty Diagnoses / Procedures Referred By Contac t Referred To Contact Speech-Language Pathologist / Rehabilitation Diagnoses Vocal cord dysfunction Anabel Garvin MD [address] [place] [phone] Phone: tel: fax: Sandra Patel CCC-TANK ERECTOR [address] [place] [address] Phone: tel: fax: Referral ID Status Reason Start Date Expiration Date Visits Requested Visits Authorized [id number] Pending Review Support Services 05/07/2025 05/08/2026 99 99 Question Answer Fiberoptic Endoscopic Evaluation of Swallowing (FEES) may be performed, if clinically indicated? No Is this referral for gender affirming care? No Is this referral for a Modified Barium Swallow Study with Speech Therapy? No Encounter Details Date Type Department Care Team (Latest Contact Info) Description 05/07/2025 Transcribe Orders [address] [place] [phone] Anabel Garvin MD [address] [place] [phone] Vocal cord dysfunction (Primary Dx) Social History Tobacco Use Types Packs/Day Years Used Date Smoking Tobacco: Never Assessed Sex and Gender Information Value Date Recorded Sex Assigned at Not on file Legal Sex Male 6:42 PM EST Gender Identity Not on file Sexual Orientation Not on file documented as of this encounter Plan of Treatment Scheduled Referrals Name Type Priority Associated Diagnoses Orde r Schedule Amb Referral to Speech Therapy Outpatient Referral Routine Vocal cord dysfunction Ordered: 05/07/2025 documented as of this encounter Visit Diagnoses Diagnosis Vocal cord dysfunction- Primary Other diseases of vocal cords documented in this encounter
--- OUTSIDE RECORDS SUMMARY | 2025-05-11 07:27 | XMS_ITS | Clinical Summary ---
Author Organization [facility] Address [address] [address] Care Team Providers Care Warehouse Shipper Name Role Phone Saúl Maier Primary Care Provider [phone] Allergies No known active allergies Medications acetaminophen [...] Influenza Vaccine (#1) 2025 Insurance Care Teams Warehouse Shipper Relationship Specialty Start Date End Date Saúl Maier PA [address] [place] [address], [address] [place] [address] PCP - General Physician Software Development Advisor 01/30/22
--- NOTE | 2025-05-11 07:28 | PC.NURSE ---
This RN assumed care of patient @ 0700 Patient A&O x [address] Elevated trop 216 reported by lab, provider aware. Patient on ekg monitor Patient currently having Head CT performed, results pending
--- NOTE | 2025-05-11 08:04 | PC.NURSE ---
@ 0757 patient exprienced a seizure for approx 1 min and 30 seconds Applied NRB mask 15L O2 100% 26RR, BP 161/100 109HR 10mg valuim ordered by provider, medication administered per assisting nurse Ana RN No incontinence noted. BP recheck 105/38
--- NOTE | 2025-05-11 08:21 | PC.NURSE ---
No further seizure activity noted Patient fatigued and disoriented at this time. Titrated to RA 98% BP 109/49 Mother at bedside Lights dimmed for comfort
[2025-05-11] MEDS: diazePAM 10 MG/2 ML CARTRIDGE IVPUSH (09:11)
[2025-05-11] MEDS: levETIRAcetam in NaCl (iso-os) 1,000 MG/100 ML PIGGYBACK 400 MG IV (09:51)
[2025-05-11 10:37] LABS: Anion Gap 13 (12-20); Blood Urea Nitrogen 12 mg/dL (9-16); Calcium 9.3 mg/dL (8.4-10.2); Carbon Dioxide 20 mmol/L (22-29); Chloride 112 mmol/L (96-108); Creatinine Clr Calc Pharmacy 84.5; Estimated Glomerular Filt Rate > 60; Potassium 4.3 mmol/L (3.3-5.1); Sodium 141 mmol/L (135-145)
[2025-05-11 10:48] LABS: Troponin-I High Sensitivity 708.3 ng/L (<3.5-35.0)
--- NOTE | 2025-05-11 13:29 | PC.NURSE ---
Patient experiencing some soft BP's Provider notified Corrected with IVF
[2025-05-11 13:38] LABS: Glucose, Whole Blood 82 mg/dL (60-115)
--- NOTE | 2025-05-11 13:58 | PM.NEUROCN ---
History of Present Illness Data of Consult Service Date: 05/11/25 Primary Care Provider: Saúl Maier PA-C [facility] Reason for consult: Seizure disorder 44 years old man with chronic intractable epilepsy (as per previous records, seizure started when he was 37 years old and involve generalized shaking with bowel bladder incontinence. He had reported warning of double vision and a nasty metallic taste before the seizure. EEG in 2017 at [facility] revealed bilateral epileptiform discharges and an ambulatory EEG at [facility] in October 2023 revealed mostly right hemispheric epileptic discharges and probably also left frontal. Over the years seizures have never been fully controlled. No epileptogenic lesion was noted on his routine brain imaging.) with frequent visits to hospital with breakthrough seizure last seen in November of this year when he was here after a seizure. At that time he was on Vimpat, clobazam, and oxcarbazepine. His serum sodium was in 120s and after that oxcarbazepine was either stopped or tapered off. He used to see Dr. Powers but had decided to move his care to [facility]. Now he was back to emergency room after apparently breakthrough seizure. He did not know what had happened. Apparently he was also having some diarrhea. When I saw him in emergency room he was back to baseline not in any distress or sleepy. Review of Systems Review of Systems: Recent diarrhea PMFSH Past Medical History Medical History Breakthrough seizure Cardiomyopathy Uvulitis Claustrophobia Takotsubo cardiomyopathy Schatzki's ring Gastritis Sleep apnea Diabetes Gastroparesis Migraine headache with aura Enlarged liver Postoperative hypothyroidism Thyroid cancer Vitamin D deficiency Multinodular thyroid Seizures ABPA (allergic bronchopulmonary aspergillosis) Seizures Asthma Family History Family History Maternal Grandmother Emphysema, unspecified Father Diabetes Mother No problems noted. Paternal Grandfather Liver cancer Colon cancer Surgical History Surgical History S/P total thyroidectomy History of esophagogastroduodenoscopy (EGD) S/P removal of thyroid nodule History of cholecystectomy Social History Social History Household Members: Family Housing: Apartment Are you a primary palliative care specialist to a significant other at home: No Do you presently have visiting nurse or other home services: No Alcohol intake: never Comment: has poor balance Patient Tobacco Use Status: Never used Tobacco Smoked in Last 30 Days: No e-Cigarette/Vaping Use: Never Used Second Hand Smoke Exposure: No Use of substances other than those prescribed or required for medical reasons: No Substance Use Type: Marijuana Advance Directives: No Advance Directives Information Provided: Yes Advance Directives Date on File: 05/20/23 Do you have a plan to hurt others: No Plan service: No Current occupational status: disabled Current occupation: rt handed Cognitive needs: No Hearing needs: No Vision needs: No Meds Allergies Allergy/AdvReac Type Severity Reaction Status Date / Time cat dander (CATS) Allergy Mild GENERALIZED Verified 05/11/25 06:29 ALLERGY SYMPTOMS dog dander (DOGS) Allergy Mild GENERALIZED Verified 05/11/25 06:29 ALLERGY SYMPTOMS tree and shrub pollen (TREE) Allergy Mild GENERALIZED Verified 05/11/25 06:29 ALLERGY SYMPTOMS FROM PINE TREES Active Medications: Current Medications Acetaminophen (Acetaminophen 325 Mg Tablet) 650 mg PO Q6H PRN PRN Reason: Pain, Mild 1-3,fever,headache Calcium Carbonate (Calcium Carbonate 750 Mg Tab.Chew) 750 mg PO Q4H PRN PRN Reason: Heartburn Magnesium Hydroxide (Milk Of Magnesia 30 Ml Oral.Susp) 30 ml PO DAILY PRN PRN Reason: Constipation Melatonin (Melatonin 3 Mg Tablet) 6 mg PO BEDTIME PRN PRN Reason: Insomnia Ondansetron HCl (Ondansetron Hcl 4 Mg/2 Ml Vial) 4 mg IVPUSH Q8H PRN PRN Reason: Nausea and Vomiting Sodium Chloride (0.9 % Sodium Chloride Flush 3 Ml Syringe) [facility]ations ?Medication ?Instructions ?Recorded ?Confirmed ?Last Taken ?Type clobazam 10 mg tablet 5 mg PO BID 12/11/23 04/09/25 12/02/24 History levothyroxine 200 mcg tablet 200 mcg PO DAILY@0612/03/24 04/09/25 12/02/24 History (Synthroid) levothyroxine 25 mcg tablet 12.5 mcg PO DAILY@[address]/03/24 04/09/25 12/02/24 History (Synthroid) lisinopril 10 mg tablet 10 mg PO DAILY 12/03/24 04/09/25 12/02/24 History sertraline 100 mg tablet 100 mg PO BEDTIME 12/03/24 04/09/25 12/02/24 History sucralfate 1 gram tablet 1 g PO DAILY 12/03/24 04/09/25 12/02/24 History atorvastatin 80 mg tablet 80 mg PO DAILY 12/19/24 04/09/25 Unknown History ipratropium 0.5 mg-albuterol 3 mg 3 ml inhalation DAILY 04/09/25 04/09/25 Unknown History (2.5 mg base)/3 mL nebulization soln albuterol 90 mcg-budesonide 80 2 inh inhalation TID PRN dyspnea 05/11/25 05/11/25 Unknown History mcg/actuation HFA aerosol inhaler (Airsupra) carvedilol 3.125 mg tablet 3.125 mg PO BID 05/11/25 05/11/25 Unknown History empagliflozin 10 mg tablet 10 mg PO DAILY 05/11/25 Unknown History (Jardiance) hydroxyzine HCl 50 mg tablet 50 mg PO BEDTIME insomnia 05/11/25 05/11/25 Unknown History lacosamide 200 mg tablet 200 mg PO BID 05/11/25 Unknown History lansoprazole 30 mg capsule,delayed 30 mg PO DAILY@0630 05/11/25 05/11/25 Unknown History release oxcarbazepine 300 mg tablet 300 mg PO BID 05/11/25 Unknown History sodium chloride 0.9 % for 3 ml inhalation NEEDED PRN 05/11/25 05/11/25 Unknown History nebulization wheezing Physical Exam Vital Signs: Vital Signs: Last Vital Signs Temp 99.0 F 05/11/25 10:33 Pulse 72 05/11/25 12:18 Resp 21 H 05/11/25 12:18 BP 89/50 L 05/11/25 12:18 Pulse Ox 96 05/11/25 12:18 O2 Del Method Room Air 05/11/25 12:18 O2 Flow Rate 15 05/11/25 08:00 BMI result Body Mass Index 25.8 Neuro: Other: He is alert and awake with normal spontaneity of speech fluency comprehension and affect. Face is symmetrical. Visual wrgiht are full. There was no focal weakness. Plantars were flexor. Speech is normal. Results Labs 05/11/25 06:41 05/11/25 10:11 Labs: Short CBC 05/11/25 Range/Units 06:41 WBC 13.8 H (4.8-10.8) X10*3/uL Hgb 15.5 (14.0-18.0) g/dl Hct 45.2 (42.0-52.0) % Plt Count 337 (160-400) X10*3/uL BMP 05/11/25 05/11/25 06:41 10:11 Sodium 140 141 Potassium 3.9 4.3 Chloride 111 H 112 H Carbon Dioxide 17 L 20 L BUN 10 12 Creatinine 0.98 0.96 Calcium 9.3 9.3 Cardiac Enzymes 05/11/25 Range/Units 10:11 Total Creatine Kinase 193 H (38-174) U/L Liver Function 05/11/25 Range/Units 06:41 Total Bilirubin 0.3 (0.0-1.0) mg/dL AST 25 (5-37) U/L ALT 24 (0-40) U/L Alkaline Phosphatase 88 (39-117) U/L Albumin 4.8 (3.5-5.0) g/dL Head CT did not reveal any significant abnormality. Serum sodium was normal. Assessment and Plan (1) Seizure disorder: Status: Acute Chronic intractable epilepsy with probably generalized seizures. He recently has moved his neurology care to . Previously he was taking combination of Vimpat, clobazam, and oxcarbazepine. Oxcarbazepine was stopped in November because of hyponatremia. This time he was here apparently with a breakthrough seizure but he was also having diarrhea. I suggest that his primary neurologist in [facility] should be contacted to figure out what medicine to prescribed at this time. Procedures Date of Service Date of Service: 05/11/25
--- NOTE | 2025-05-11 14:11 | PHA.MEDREC ---
Addendum entered by Elmira Gutierrez RPh 05/11/25 14:46: Reviewed by [facility]. Pt takes Sucrafate daily, vs the prescribe BID. Original Note: Pharmacy Consult ? Medication Reconciliation Pharmacy has completed the medication reconciliation. Spoke to the patients father over the phone to confirm med list. Father was able to read off all the patients medications using his prescription bottles. Father states patient is not taking Farxiga 10 ( he does not see a bottle with that name). Father confirmed Atorvastatin 80 mg , however last fill date was 12/08/24 for 30 days, Caredilol 31.25 , however last fill date was 09/20/24 for 30 days. Most resent claim history is for Carvedilol 6.25 mg BID , last filled 12/08/24 for 30 days. Father did not know if patient takes Clobazam 10 mg , last fill date was 04/24/25 for 30 days , left on med rec. Synthroid 200 mg with Synthroid 12.5 mg for a total dose =212.5 mcg daily. Father states patient is still taking Lisinopril 10 mg ,however there are no claims for.
--- NOTE | 2025-05-11 15:51 | PM.IMHP ---
History of Present Illness Date of Service: 05/11/25 Chief Complaint: seizure 44-year-old man presented to the ER after a witnessed tonic-clonic seizure at home. He reported that he had been in his usual state of health although a week ago he had diarrhea for a few days and he was weaned off of Tegretol last week as well. But he denied fever, chills, nausea, vomiting, chest pain, visual changes, new medications. He currently takes Vimpat and clobazam which he reports taking as prescribed he thinks that maybe stopping the Tegretol caused him to have the breakthrough seizure although he reports having breakthrough seizures at least once a month. He was noted to have an elevated troponin with no chest pain or ischemic changes noted on EKG. He was having some nausea in the ER on received Reglan and Zofran. He was given Keppra, Valium in the ER. He also received 1 L of IV fluid. Plan will be to admit patient for further management and treatment of breakthrough seizure. Review of Systems Review of Systems: Denies any recent fever chills or decrease in appetite respiratory denies any shortness of breath or cough cardiovascular denied chest pain gastrointestinal denies any dysphagia abdominal pain nausea vomiting or diarrhea genitourinary denies any dysuria frequency or hematuria musculoskeletal denies any joint pain or swelling neuropsych denies any weakness or seizures all other systems reviewed are negative [facility] Medical History Breakthrough seizure Cardiomyopathy Uvulitis Claustrophobia Takotsubo cardiomyopathy Schatzki's ring Gastritis Sleep apnea Diabetes Gastroparesis Migraine headache with aura Enlarged liver Postoperative hypothyroidism Thyroid cancer Vitamin D deficiency Multinodular thyroid Seizures ABPA (allergic bronchopulmonary aspergillosis) Seizures Asthma Family History Maternal Grandmother Emphysema, unspecified Father Diabetes Mother No problems noted. Paternal Grandfather Liver cancer Colon cancer Surgical History S/P total thyroidectomy History of esophagogastroduodenoscopy (EGD) S/P removal of thyroid nodule History of cholecystectomy Social History Household Members: Family Housing: Apartment Are you a primary transitional care liaison to a significant other at home: No Do you presently have visiting nurse or other home services: No Alcohol intake: never Comment: has poor balance Patient Tobacco Use Status: Never used Tobacco e-Cigarette/Vaping Use: Never Used Second Hand Smoke Exposure: No Substance Use Type: Marijuana Advance Directives Date on File: 05/20/23 service: No Current occupational status: disabled Current occupation: rt handed Cognitive needs: No Hearing needs: No Vision needs: No Meds Allergies Allergy/AdvReac Type Severity Reaction Status Date / Time cat dander (CATS) Allergy Mild GENERALIZED Verified 05/11/25 06:29 ALLERGY SYMPTOMS dog dander (DOGS) Allergy Mild GENERALIZED Verified 05/11/25 06:29 ALLERGY SYMPTOMS tree and shrub pollen (TREE) Allergy Mild GENERALIZED Verified 05/11/25 06:29 ALLERGY SYMPTOMS FROM [place] Active Medications: Current Medications Acetaminophen (Acetaminophen 325 Mg Tablet) 650 mg PO Q6H PRN PRN Reason: Pain, Mild 1-3,fever,headache Last Admin: 05/11/25 15:39 Dose: 650 mg Calcium Carbonate (Calcium Carbonate 750 Mg Tab.Chew) 750 mg PO Q4H PRN PRN Reason: Heartburn Magnesium Hydroxide (Milk Of Magnesia 30 Ml Oral.Susp) 30 ml PO DAILY PRN PRN Reason: Constipation Melatonin (Melatonin 3 Mg Tablet) 6 mg PO BEDTIME PRN PRN Reason: Insomnia Ondansetron HCl (Ondansetron Hcl 4 Mg/2 Ml Vial) 4 mg IVPUSH Q8H PRN PRN Reason: Nausea and Vomiting Sodium Chloride (0.9 % Sodium Chloride Flush 3 Ml Syringe) 3 ml IVFLUSH [facility] Medications ?Medication ?Instructions ?Recorded ?Confirmed ?Last Taken ?Type clobazam 10 mg tablet 5 mg PO BID 12/11/23 05/11/25 12/02/24 History levothyroxine 200 mcg tablet 200 mcg PO DAILY@59912/03/24 05/11/25 12/02/24 History (Synthroid) levothyroxine 25 mcg tablet 12.5 mcg PO DAILY@0612/03/24 05/11/25 12/02/24 History (Synthroid) lisinopril 10 mg tablet 10 mg PO DAILY 12/03/24 05/11/25 12/02/24 History sertraline 100 mg tablet 100 mg PO BEDTIME 12/03/24 05/11/25 12/02/24 History sucralfate 1 gram tablet 1 g PO DAILY 12/03/24 05/11/25 12/02/24 History atorvastatin 80 mg tablet 80 mg PO DAILY 12/19/24 05/11/25 Unknown History ipratropium 0.5 mg-albuterol 3 mg 3 ml inhalation DAILY 04/09/25 05/11/25 Unknown History (2.5 mg base)/3 mL nebulization soln albuterol 90 mcg-budesonide 80 2 inh inhalation TID PRN dyspnea 05/11/25 05/11/25 Unknown History mcg/actuation HFA aerosol inhaler (Airsupra) carvedilol 3.125 mg tablet 3.125 mg PO BID 05/11/25 05/11/25 Unknown History empagliflozin 10 mg tablet 10 mg PO DAILY 05/11/25 05/11/25 Unknown History (Jardiance) hydroxyzine HCl 50 mg tablet 50 mg PO BEDTIME insomnia 05/11/25 05/11/25 Unknown History lacosamide 200 mg tablet 200 mg PO BID 05/11/25 05/11/25 Unknown History lansoprazole 30 mg capsule,delayed 30 mg PO DAILY@0630 05/11/25 05/11/25 Unknown History release oxcarbazepine 300 mg tablet 300 mg PO BID 05/11/25 05/11/25 Unknown History sodium chloride 0.9 % for 3 ml inhalation NEEDED PRN 05/11/25 05/11/25 Unknown History nebulization wheezing Physical Exam Vital Signs and Narrative: Vital Signs: Last Vital Signs Temp 99.0 F 05/11/25 10:33 Pulse 74 05/11/25 14:46 Resp 19 05/11/25 14:46 BP 99/48 L 05/11/25 14:46 Pulse Ox 97 05/11/25 14:46 O2 Del Method Room Air 05/11/25 14:46 O2 Flow Rate 15 05/11/25 08:00 BMI result Body Mass Index 25.8 Appearing in no acute distress head is normocephalic atraumatic eyes pupils are PERRLA sclera is anicteric mouth throat mucous membranes are intact and moist neck is supple no lymphadenopathy, no JVD noted lung sounds are clear to auscultation heart regular rate rhythm, clear S1, S2 positive bowel sounds, abdomen is soft, nontender neuro patient is alert x3, no focal deficits Results Labs 05/11/25 06:41 05/11/25 10:11 Labs: Laboratory Results - last 24 hr 05/11/25 05/11/25 05/11/25 06:27 06:41 06:42 MCV 86.6 MCH 29.7 MCHC 34.3 RDW 14.0 Plt Count 337 MPV 8.8 L Immature Gran % (Auto) 0.8 H Neut % (Auto) 84.9 H Lymph % (Auto) 6.7 L Col[place] % (Auto) 6.8 Eos % (Auto) 0.4 Baso % (Auto) 0.4 Lymph # (Auto) 0.9 L [place] # (Auto) 0.9 Eos # (Auto) 0.1 Baso # (Auto) 0.1 Abs Immat Gran (auto) 0.11 H Absolute Neuts (auto) 11.7 H Absolute Nucleated RBC 0.000 Nucleated RBC % (auto) 0.0 VBG pH VBG pCO2 VBG pO2 VBG HCO3 VBG O2 Saturation VBG Base Excess Anion Gap 16 Estim Creat Clear Calc 82.8 Estimated GFR > 60 POC Glucose 142 H Random Glucose 122 H Calcium 9.3 Magnesium 2.2 Total Bilirubin 0.3 AST 25 ALT 24 Alkaline Phosphatase 88 Total Creatine Kinase Total Protein 6.9 Albumin 4.8 Beta-Hydroxybutyrate 0.05 Influenza Type A (ARIANNA) Negative Influenza Type B (ARIANNA) Negative Influenza A & B Note See Note 05/11/25 05/11/25 05/11/25 06:50 10:11 13:34 MCV MCH MCHC RDW Plt Count MPV Immature Gran % (Auto) Neut % (Auto) Lymph % (Auto) Col[place] % (Auto) Eos % (Auto) Baso % (Auto) Lymph # (Auto) [place] # (Auto) Eos # (Auto) Baso # (Auto) Abs Immat Gran (auto) Absolute Neuts (auto) Absolute Nucleated RBC Nucleated RBC % (auto) VBG pH 7.26 L VBG pCO2 37 VBG pO2 49 VBG HCO3 17 L VBG O2 Saturation 74.0 VBG Base Excess -9.0 Anion Gap 13 Estim Creat Clear Calc 84.5 Estimated GFR > 60 POC Glucose 82 Random Glucose 106 Calcium 9.3 Magnesium Total Bilirubin AST ALT Alkaline Phosphatase Total Creatine Kinase 193 H Total Protein Albumin Beta-Hydroxybutyrate Influenza Type A (ARIANNA) Influenza Type B (ARIANNA) Influenza A & B Note Imaging Radiologist's Impressions: Impressions Head CT 05/11/25 06:21 IMPRESSION: No acute fracture, bony calvarium. No acute intracranial hemorrhage. Electronically signed by: Jose Hudson MD 05/11/2025 07:57 AM EDT RP Assessment and Plan (1) Seizure: Status: Inactive Plan 44 year old man admitted with breakthrough seizure. Breakthrough seizure Head CT negative On multiple antiepileptics Family witnessed tonic-clonic seizure Patient reported he was weaned off of Tegretol a week ago He also reported that he was having some diarrhea for about a day or 2 about a week ago He takes Vimpat and clobazam which he reports taking as prescribed Denies any recent illness, sick contacts, new medications other than being weaned off the Tegretol Neurology consultation Seizure precautions Continue Vimpat and clobazam for now, discuss any changes with Neurology Elevated troponins No chest pain EKG without ischemic changes Continue aspirin chronically high after seizures HTN hold carvedilol and lisinopril for low BP Ecu-aedazbc-aicuosnqr type 2 diabetes Sliding-scale insulin Diabetic diet Hypothyroidism Continue levothyroxine Full Code DVT Prophylaxis: Lovenox Quality Stroke Does the patient have a stroke diagnosis?: No VTE Prior VTE?: No VTE Risk Level:: Medical - moderate - high VTE Device Contraindication: Treatment Not Indicated VTE Drug Contraindication: N/A - Med Ordered
[2025-05-11] MEDS: 0.9 % Sodium Chloride Flush 3 ML SYRINGE IVFLUSH ×2 (15:58→22:20)
[2025-05-11 19:25] LABS: Troponin-I High Sensitivity 546.2 ng/L (<3.5-35.0)
[2025-05-12 00:39] VITALS: BP 105/60; PULSE 61; RESP 16; TEMP 36.4; O2SAT 97
[2025-05-12 03:01] VITALS: BP 106/72; PULSE 60; RESP 20; TEMP 37.1; O2SAT 96
[2025-05-12 06:53] LABS: MANUAL DIFF FLAG NO
[2025-05-12 07:05] LABS: Hematocrit 39.3 % (42.0-52.0); Hemoglobin 14.0 g/dl (14.0-18.0); Imm Gran Abs Auto 0.03 X10*3/uL (0.00-0.03); Imm Gran Pct Auto 0.4 % (0.0-0.4); Lymphocytes Absolute Auto 1.6 X10*3/uL (1.2-4.9); Mean Corpuscular HGB Conc 35.6 g/dl (31.0-36.0); Mean Corpuscular Hemoglobin 30.4 pg (27.0-33.0); Mean Corpuscular Volume 85.4 fL (80.0-98.0); NRBC Abs Auto 0.000 X10*3/uL (0.0-0.012); NRBC Pct Auto 0.0 /100WBC (0.0-0.2); Platelet Count 230 X10*3/uL (160-400); Red Blood Count 4.60 X10*6/uL (4.60-5.80); White Blood Count 7.3 X10*3/uL (4.8-10.8)
[2025-05-12 07:24] LABS: Anion Gap 12 (12-20); Blood Urea Nitrogen 8 mg/dL (9-16); Calcium 8.8 mg/dL (8.4-10.2); Carbon Dioxide 18 mmol/L (22-29); Chloride 113 mmol/L (96-108); Creatinine Clr Calc Pharmacy 87.2; Estimated Glomerular Filt Rate > 60; Potassium 4.2 mmol/L (3.3-5.1); Sodium 139 mmol/L (135-145)
[2025-05-12 07:34] VITALS: BP 124/67; PULSE 61; RESP 18; TEMP 36.4; O2SAT 97
[2025-05-12] MEDS: Albuterol/Iprat 2.5/0.5MG 3 ML AMPUL.NEB INHALE (08:00)
[2025-05-12 08:04] VITALS: PULSE 65; RESP 18; O2SAT 99
--- NOTE | 2025-05-12 08:30 | P.DS_ITS ---
DS: Providers Provider Date of Service: 05/12/25 Date of admission: 05/11/25 12:17 Date of discharge: 05/12/25 Primary care physician: Saúl Maier PA-C Consults: 05/11/25 11:48 Consult to Neurology Routine Consulting Provider: [facility] Reason for consultation: breakthrough seizure 05/11/25 16:16 Consult to Cardiology Routine Consulting Provider: [facility] Reason for consultation: elevated troponin DS: Diagnosis Discharge Diagnosis (1) Seizure: Status: Inactive DS: Summary Hospital Course Hospital Course: 44-year-old man presented to the ER after a witnessed tonic-clonic seizure at home. He reported that he had been in his usual state of health although a week ago he had diarrhea for a few days and he was weaned off of Tegretol last week as well. But he denied fever, chills, nausea, vomiting, chest pain, visual changes, new medications. He currently takes Vimpat and clobazam which he reports taking as prescribed he thinks that maybe stopping the Tegretol caused him to have the breakthrough seizure although he reports having breakthrough seizures at least once a month. He was noted to have an elevated troponin with no chest pain or ischemic changes noted on EKG. He was having some nausea in the ER on received Reglan and Zofran. He was given Keppra, Valium in the ER. He also received 1 L of IV fluid. Plan will be to admit patient for further management and treatment of breakthrough seizure. 44-year-old man admitted for breakthrough seizure. Head CT was negative for any acute abnormalities. Patient has a history of epilepsy and has been on multiple antiseizure medications. Family had witnessed tonic-clonic seizure. Patient reported he has been weaned off Tegretol approximately 1 week ago. He remained on Vimpat 200 mg daily, and has been taking clobazam 5 mg twice daily however after looking into the most recent neurology note from his regular neurologist he was actually supposed to be taking clobazam 10 mg twice daily. Discussed this with the patient and he is aware, dose changed to 10 mg twice daily. He should follow up with his regular neurologist to manage this medication and the current dose. At this time patient is stable for discharge home. Elevated troponin. No chest pain, EKG without ischemic changes. Seen evaluated by Cardiology with no need for further workup. Continue aspirin. HTN. Continue home medications Diabetes mellitus type 2. Continue home medications Hypothyroidism. Continue levothyroxine Time Attestation Discharge Coordination Time (in mins): 40 Quality: Safe Use of Opioids Does Pt have an Active Cancer Diagnosis on the Problem List?: No Quality: Stroke Does the patient have a stroke diagnosis?: No Physical Exam Exam: Exam: Appearing in no acute distress head is normocephalic atraumatic eyes pupils are PERRLA sclera is anicteric mouth throat mucous membranes are intact and moist neck is supple no lymphadenopathy, no JVD noted lung sounds are clear to auscultation heart regular rate rhythm, clear S1, S2 positive bowel sounds, abdomen is soft, nontender neuro patient is alert x3, no focal deficits Vital Signs: Vital Signs: Last Vital Signs Temp 97.6 F 05/12/25 07:34 Pulse 65 05/12/25 08:04 Resp 18 05/12/25 08:04 BP 124/67 05/12/25 07:34 Pulse Ox 97 05/12/25 07:34 O2 Del Method Room Air 05/12/25 07:34 O2 Flow Rate 15 05/11/25 08:00 BMI result Body Mass Index 26.2 DS: Data Data Completed and Pending Labs on day of discharge: Laboratory Results - last 24 hr 05/11/25 05/11/25 05/11/25 10:11 13:34 18:35 WBC RBC Hgb Hct MCV MCH MCHC RDW Plt Count MPV Immature Gran % (Auto) Neut % (Auto) Lymph % (Auto) Sebastian % (Auto) Eos % (Auto) Baso % (Auto) Lymph # (Auto) Sebastian # (Auto) Eos # (Auto) Baso # (Auto) Abs Immat Gran (auto) Absolute Neuts (auto) Absolute Nucleated RBC Nucleated RBC % (auto) Sodium 141 Potassium 4.3 Chloride 112 H Carbon Dioxide 20 L Anion Gap 13 BUN 12 Creatinine 0.96 Estim Creat Clear Calc 84.5 Estimated GFR > 60 POC Glucose 82 Random Glucose 106 Calcium 9.3 Total Creatine Kinase 193 H Troponin I High Sens 708.3 H* D 546.2 H* 05/12/25 06:48 WBC 7.3 RBC 4.60 Hgb 14.0 Hct 39.3 L MCV 85.4 MCH 30.4 MCHC 35.6 RDW 14.1 Plt Count 230 D MPV 8.8 L Immature Gran % (Auto) 0.4 Neut % (Auto) 67.6 Lymph % (Auto) 21.2 Sebastian % (Auto) 9.4 Eos % (Auto) 1.0 Baso % (Auto) 0.4 Lymph # (Auto) 1.6 Sebastian # (Auto) 0.7 Eos # (Auto) 0.1 Baso # (Auto) 0.0 Abs Immat Gran (auto) 0.03 Absolute Neuts (auto) 4.9 Absolute Nucleated RBC 0.000 Nucleated RBC % (auto) 0.0 Sodium 139 Potassium 4.2 Chloride 113 H Carbon Dioxide 18 L Anion Gap 12 BUN 8 L Creatinine 0.93 Estim Creat Clear Calc 87.2 Estimated GFR > 60 POC Glucose Random Glucose 111 Calcium 8.8 Total Creatine Kinase Troponin I High Sens Discharge Plan Discharge Anticipated Discharge Date/Time: 05/12/25 08:26 Patient Disposition: Home, Self-Care Discharge Diagnosis: Breakthrough seizure Elevated troponin Referrals: Saúl Maier PA-C [Primary Care Provider, Internal Medicine] - 1 Week Discharge Medications: New clobazam 10 mg tablet 10 mg PO BID Qty: 60 0RF Continued (DME) Sharps container See Rx Instructions .Route .MEDSUPPLY Qty: 1 0RF Rx Instructions: As directed aspirin 81 mg tablet,delayed release (DR/EC) 81 mg PO DAILY 90 Days Qty: 90 2RF theophylline 400 mg tablet extended release 24 hr 200 mg PO DAILY Qty: 45 2RF albuterol sulfate [Ventolin HFA] 90 mcg/actuation HFA aerosol inhaler 2 puff PO Q6H PRN (Reason: for dyspnea) Qty: 3 6RF cholecalciferol (vitamin D3) 50 mcg (2,000 unit) capsule 100 mcg PO DAILY 90 Days Qty: 180 2RF metformin 500 mg tablet extended release 24 hr 500 mg PO BEDTIME Qty: 90 2RF (DME) FreeStyle Lite Strips Strip See Rx Instructions .Route Qty: 100 0RF Rx Instructions: As directed- daily (DME) blood-glucose meter [FreeStyle Lite Meter] Kit See Rx Instructions .Route Qty: 1 0RF Rx Instructions: As directed- once daily (DME) lancets [FreeStyle Lancets] 28 gauge misc See Rx Instructions .Route Qty: 100 0RF Rx Instructions: As directed- daily levothyroxine [Synthroid] 25 mcg tablet 12.5 mcg PO DAILY@0600 Rx Instructions: TAKE HALF TABLET DAILY ALONG WITH YOUR 200 MCG TABLET ON AN EMPTY STOMACH ONCE DAILY. levothyroxine [Synthroid] 200 mcg tablet 200 mcg PO DAILY@0600 sertraline 100 mg tablet 100 mg PO BEDTIME lisinopril 10 mg tablet 10 mg PO DAILY sucralfate 1 gram tablet 1 g PO DAILY oxcarbazepine 300 mg tablet 300 mg PO BID sodium chloride 0.9 % solution for nebulization 3 ml inhalation NEEDED PRN (Reason: wheezing) lacosamide 200 mg tablet 200 mg PO BID Jardiance 10 mg tablet 10 mg PO DAILY Airsupra 90-80 mcg/actuation HFA aerosol inhaler 2 inh INHALATION TID PRN (Reason: dyspnea) hydroxyzine HCl 50 mg tablet 50 mg PO BEDTIME carvedilol 3.125 mg tablet 3.125 mg PO BID lansoprazole 30 mg capsule,delayed release(DR/EC) 30 mg PO DAILY@0630 montelukast 10 mg tablet 10 mg PO BEDTIME 90 Days Qty: 90 2RF nystatin 100,000 unit/mL suspension 5 ml PO DAILY PRN (Reason: thrush) 30 Days Qty: 200 6RF Rx Instructions: administer 1/2 of dose in each side of the mouth. SWISH AND SPIT atorvastatin 80 mg tablet 80 mg PO DAILY ipratropium-albuterol 0.5 mg-3 mg(2.5 mg base)/3 mL solution for nebulization 3 ml inhalation DAILY Discontinued clobazam 10 mg tablet 5 mg PO BID Discharge Orders: Discharge Order (Routine); Ordered 05/12/25 Ordered By: Melania Hurtado Diet: Advance to usual diet Activity on Discharge: As tolerated Stand Alone Forms: Patient Portal Discharge page Print Language: Faroese Care Plan Goals: Your clobazam was increased to 10 mg twice a day as per note from your [facility] neurologist dated 04/28/2025, the lacosamide has not changed and remains 200 mg twice a day Follow up with her outpatient neurologist as soon as possible Health Concerns: Breakthrough seizure Elevated troponin Plan of Treatment: Follow up with primary care provider as needed Take all medications as prescribed Assessment: See discharge summary Discharge Date/Time: 05/12/25 13:13
[2025-05-12] MEDS: Theophylline Anhydrous ER 400 MG TAB.ER.24H 200 MG PO (09:03)
[2025-05-12] MEDS: 0.9 % Sodium Chloride Flush 3 ML SYRINGE IVFLUSH (09:05)
[2025-05-12] MEDS: Aspirin Enteric Coated 81 MG TABLET.DR PO (09:05)
--- NOTE | 2025-05-12 10:17 | MHC.CM.PN ---
EMR REVIEWED, CM MET W/PT WHO REPORTS HE LIVES W/HIS PARENTS, HAS A NEBULIZER AND CPAP AT HOME HOWEVER REPORTS HIS DOCTOR TOLD HIM HE DID NOT NEED TO USE IT, PT DOES REPORT HE FURNITURE/WALL SURFS AT HOME AND HAS NO HOME SERVICES, PT's GOAL FOR DC IS HOME. PT VERIFIES PCP/HCP ON FILE. PER HOSPITALIST ANTIC PT WILL BE MEDICALLY CLEARED FOR DC HOME TODAY.
[2025-05-12 11:22] VITALS: BP 113/63; PULSE 63; RESP 18; TEMP 36.6; O2SAT 99
== END 2025-05-12 13:13 | disposition home or self-care (01) | DRG 53 ==
LOC: HO.ED 12:09 → HO.EDOVER 13:51 → HO.IMC 16:05
PROVIDERS: Emergency Medicine; Admitting Provider Nurse Practitioner Acute Care; Emergency Provider Emergency Medicine; PCP Physician Assistant; Visit Provider Nurse Practitioner Acute Care
DX: G40.909 Epilepsy, unspecified, not intractable, without status epilepticus (principal); E03.9 Hypothyroidism, unspecified; E11.9 Type 2 diabetes mellitus without complications; I10 Essential (primary) hypertension; Z79.82 Long term (current) use of aspirin; Z79.84 Long term (current) use of oral hypoglycemic drugs; Z79.890 Hormone replacement therapy; Z79.899 Other long term (current) drug therapy
CPT/HCPCS: 36415; 70450; 80048; 80053; 82010; 82550; 82803; 82947; 83735; 84484; 85025; 87502; 93005; 94640; 99222; 99285; J1953; J2765; J3360

== ENCOUNTER → 2025-05-11 06:21 | Outpatient (BNV) | payer OTHER, SELFPAY | PROVIDERS: Admitting Provider Nurse Practitioner Acute Care; Emergency Provider Emergency Medicine; PCP Physician Assistant; Visit Provider Internal Medicine | DX: R94.31 Abnormal electrocardiogram [ECG] [EKG] (principal); G40.409 Other generalized epilepsy and epileptic syndromes, not intractable, without status epilepticus | CPT/HCPCS: 93010 ==

== ENCOUNTER → 2025-05-11 07:03 | Outpatient (BNV) | payer OTHER, SELFPAY | PROVIDERS: Emergency Provider Emergency Medicine; PCP Physician Assistant; Visit Provider Radiology Diagnostic Radiology | DX: R56.9 Unspecified convulsions (principal) | CPT/HCPCS: 70450 ==

== ENCOUNTER → 2025-05-11 12:17 | Outpatient (BNV) | payer OTHER, SELFPAY | PROVIDERS: Admitting Provider Nurse Practitioner Acute Care; Emergency Provider Emergency Medicine; PCP Physician Assistant; Visit Provider Psychiatry & Neurology Neurology | DX: G40.909 Epilepsy, unspecified, not intractable, without status epilepticus (principal) | CPT/HCPCS: 99222 ==

== ENCOUNTER → 2025-05-11 12:17 | Outpatient (BNV) | payer OTHER, SELFPAY | PROVIDERS: Admitting Provider Nurse Practitioner Acute Care; Emergency Provider Emergency Medicine; PCP Physician Assistant; Visit Provider Nurse Practitioner Acute Care | DX: R56.9 Unspecified convulsions (principal) | CPT/HCPCS: 99222 ==

== ENCOUNTER 2025-05-15 13:15 | Outpatient (AMB) | payer OTHER, SELFPAY ==
[2025-05-15 13:22] VITALS: BP 104/58; PULSE 80; O2SAT 96
--- NOTE | 2025-05-15 13:22 | MHC.OFFVIS ---
Vital Signs 05/15/25 13:22 Weight 150 lb BP 104/58 L Blood Pressure Location Lt brachial Position Sitting Pulse 80 Pulse Source Pulse Oximeter Pulse Oximetry (%) 96 Oxygen Delivery Method Room Air Intake Visit Reasons: Asthma Allergies cat dander (CATS) Allergy (Mild, Verified 05/11/25 06:29) GENERALIZED ALLERGY SYMPTOMS dog dander (DOGS) Allergy (Mild, Verified 05/11/25 06:29) GENERALIZED ALLERGY SYMPTOMS tree and shrub pollen (TREE) Allergy (Mild, Verified 05/11/25 06:29) GENERALIZED ALLERGY SYMPTOMS FROM [place] HPI HPI Asthma: Details: 44-year-old gentleman, lifetime nonsmoker, followed for underlying severe persistent asthma, environmental allergies, and MEHNAZ on CPAP. He continues on Spiriva, Symbicort, Singulair, and albuterol MDI/nebs with suboptimal baseline control of his symptoms. He denies recent exacerbations. He stopped using Dupixent. [facility] Medical History Breakthrough seizure Cardiomyopathy Uvulitis Claustrophobia Takotsubo cardiomyopathy Schatzki's ring Gastritis Sleep apnea Diabetes Gastroparesis Migraine headache with aura Enlarged liver Postoperative hypothyroidism Thyroid cancer Vitamin D deficiency Multinodular thyroid Seizures ABPA (allergic bronchopulmonary aspergillosis) Seizures Asthma Surgical History S/P total thyroidectomy History of esophagogastroduodenoscopy (EGD) S/P removal of thyroid nodule History of cholecystectomy Family History Maternal Grandmother Emphysema, unspecified Father Diabetes Mother No problems noted. Paternal Grandfather Liver cancer Colon cancer Social History Household Members: Family Housing: Apartment Are you a primary associate director career services to a significant other at home: No Do you presently have visiting nurse or other home services: No Alcohol intake: never Comment: has poor balance Patient Tobacco Use Status: Never used Tobacco e-Cigarette/Vaping Use: Never Used Second Hand Smoke Exposure: No Substance Use Type: Marijuana Advance Directives Date on File: 05/20/23 service: No Current occupational status: disabled Current occupation: rt handed Cognitive needs: No Hearing needs: No Vision needs: No Review of Systems Const Denies daytime sleepiness, Denies excessive sweating, Denies fatigue, Denies fever(s), Denies lethargy, Denies malaise, Denies night sweats, Denies snoring and Denies weight loss Eyes Denies blurry vision and Denies itchy eyes ENT Denies nasal congestion, Denies post nasal drip, Denies sinus pain, Denies sinus pressure and Denies other ( Thrush) Card Denies chest pain, Denies pedal edema, Denies dyspnea, Denies orthopnea and Denies paroxysmal nocturnal dyspnea Resp Denies cough, Denies hemoptysis, Denies excessive phlegm production, Denies dyspnea, Denies snoring and Denies wheezing GI Denies abdominal pain and Denies heartburn Musc Denies myalgias, Denies arthralgias and Denies joint swelling Skin/Breast Denies rash Neuro Denies memory loss and Denies seizure-like activity Psych Denies abnormal sleep pattern, Denies anxiety and Denies memory loss Endo Denies excessive sweating, Denies fatigue and Denies heat intolerance Nico/Lymph Denies easy bruising Aller/Immun Denies itchy eyes, Denies seasonal rhinorrhea and Denies wheezing Physical Exam Vital Signs: Last Vital Signs Pulse 80 05/15/25 13:22 BP 104/58 L 05/15/25 13:22 Pulse Ox 96 05/15/25 13:22 Oxygen Delivery Method Room Air 05/15/25 13:22 Const General: no acute distress and alert Nutritional Appearance: not obese Orientation/consciousness: Other orientation findings ( oriented) HEENT Head: Yes atraumatic Eyes General: appearance normal, both eyes and all related structures Sclerae: sclerae normal EOM: EOMs intact bilaterally Neck Neck: Yes supple Lymphatic: no lymphadenopathy noted Resp Effort & Inspection: normal respiratory effort and no use of accessory muscles Auscultation: clear to auscultation bilaterally Cardio Rate: regular rate Rhythm: regular rhythm Heart sounds: no gallops, no murmurs and no rubs Skin General skin exam: other ( warm) Extrem General: No clubbing, No cyanosis and No edema Assessment & Plan Assessment & Plan (1) Severe persistent allergic asthma: Code(s): J45.50 - Severe persistent asthma, uncomplicated Category: Medical Plan: Now well controlled on current regimen of Spiriva, Symbicort, theophylline, duo nebs, and albuterol MDI. Continue current regimen. (2) Environmental allergies: Code(s): Z91.09 - Other allergy status, other than to drugs and biological substances Category: Medical Plan: Now controlled on Singulair. Continue current regimen. Coding Level of Care Code Est Pt Level 4 (53868) Diagnoses Severe persistent allergic asthma J45.50 Environmental allergies Z91.09
--- OUTSIDE RECORDS SUMMARY | 2025-05-15 13:34 | XMS_ITS | Clinical Summary ---
Author Organization [facility] 299 [facility] Address [address] [place] [address] Phone Care Team Providers Care Mh Teacher Name Role Phone Saúl Maier Primary Care [...] Date COPD (chronic obstructive pu lmonary disease) ([facility] [place], [facility] V28) 10/03/2017 Allergic rhinitis 07/14/2017 Asthma-chronic obstructive p ulmonary disease overlap syndrome ([facility], [facility] V28) 04/16/2017 Obstructive sleep apnea syndrome 04/16/2017 Asthma 12/08/2016 Gastroesophageal reflux disease 12/08/2016 Encounters Date Type Department Care Team Description 04/21/2025 8:00 AM EDT Office Visit Pulmonology [facility] [address] [phone] Anabel Garvin MD Severe asthma, unspecified whether complicated, unspecified whether persistent (Primary Dx); Stridor; Vocal cord dysfunction 02/23/2025 3:30 PM EDT Office Visit Pulmonology [address] [address] Anabel Garvin MD Severe asthma, unspecified whether complicated, unspecified whether persistent (Primary Dx) 02/23/2025 Telephone Pulmonology [address] [address] Cassandra Bryna MA from Last 3 Months Medical History Medical History Date Comments Allergic rhinitis 07/14/2017 DX:Allergic rh initis Asthma 12/08/2016 DX:Asthma Asthma-chronic obstructive p ulmonary disease overlap syndrome ([facility], [facility] V28) 04/16/2017 DX:Asthma-chronic obstructiv e pulmonary disease overlap syndrome (HCC) Gastroesophageal reflux disease 12/08/2016 DX:Gastroesophageal reflux disease Obstructive sleep apnea syndrome 04/16/2017 DX:Obstructive sleep apnea syndrome COPD (chronic obstructive pu lmonary disease) ([facility] V24, [facility] V28) 10/03/2017 DX:COPD (chronic o bstructive pulmonary disease) ([facility]) Social History [...] CBC auto differential (02/23/2025 1:31 PM EDT) [facility] WBC 8.5 4.8 - 10.8 /[facility] LAB HEMETOLOGY METHOD 02/23/2025 3:00 PM EDT [facility] RBC 5.40 4.50 - [...] Result [facility] [address] [place] [address], [place] [phone] * Allergen aspergillus fumigatus IgE (02/23/2025 1:31 PM EDT) [facility] Aspergillus fumigatus, IgE <0.10 <0.10 kU/L 02/26/2025 12:01 PM EDT [facility] Aspergillus fumigatus Class CLASS 0 02/26/2025 12:01 PM EDT [facility] Comment: Test performed at [facility], [address], [place] [address] Joan Curry MD, PhD - Civil Division Commander Deputy Sheriff Blood Venous blood specimen / Unknown Venipuncture / Unknown 02/23/2025 1:31 PM EDT 02/23/2025 2:02 PM EDT Anabel Garvin MD LAB BLOOD ORDERABLES Final Result [facility] [address] [place] [address] * Immunoglobulin IgE (02/23/2025 1:31 PM EDT) [facility] IgE 12.5 0.0 - 158.0 I Unit/mL LAB CHEMISTRY METHOD 02/23/2025 6:43 PM EDT [facility] Blood Venous blood specimen / Unknown Venipuncture / Unknown 02/23/2025 1:31 PM EDT 02/23/2025 2:03 PM EDT Anabel Garvin MD LAB BLOOD ORDERABLES Final Result [facility] [address] [place] [address], [place] [phone] * (ABNORMAL) Basic metabolic panel (02/23/2025 1:31 [...] LAB BLOOD ORDERABLES Final Result JAZMYN ROBERTO MD ([facility] LAB [address] [place] [address], [place] [phone] from Last 3 Months Insurance [facility] [place] [address] Care Teams Mh Teacher Relationship Specialty Start Date End Date Saúl Maier PA [address] [place] [phone] PCP - General Physician Forming Machine Adjuster 12/09/24
--- OUTSIDE RECORDS SUMMARY | 2025-05-15 13:34 | XMS_ITS | Encounter Summary ---
Author Organization [facility] Address [address] [place] [address] Care Team Providers Care Sample Examiner Name Role Phone Unavailable Primary Care Provider Unavailabl e Reason for Referral * Evaluation and Treatment (Elective) - Pending Review Specialty Diagnoses / Procedures Referred By Contac t Referred To Contact Speech-Language Pathologist / Rehabilitation Diagnoses Vocal cord dysfunction Anabel Garvin MD [address] [place] [address] Phone: tel: fax: Sandra Patel CCC-SEALS ENGRAVER [address] [place] [address] Phone: tel: fax: Referral ID Status Reason Start Date Expiration Date Visits Requested Visits Authorized [id number] Pending Review Support Services 05/07/2025 05/08/2026 99 99 Question Answer Fiberoptic Endoscopic Evaluation of Swallowing (FEES) may be performed, if clinically indicated? No Is this referral for gender affirming care? No Is this referral for a Modified Barium Swallow Study with Speech Therapy? No Encounter Details Date Type Department Care Team (Latest Contact Info) Description 05/07/2025 Transcribe Orders [address] [place] [phone] Anabel Garvin MD [address] [place] [phone] Vocal cord dysfunction (Primary Dx) Social History [...]
--- OUTSIDE RECORDS SUMMARY | 2025-05-15 13:34 | XMS_ITS | Encounter Summary ---
Author Organization [facility] Address [address] [place] [address] Care Team Providers Care Mechanical Field Engineer Name Role Phone Trav Greenberg Primary Care Provider Blessing Gilmore MD Primary Care Provider Saúl Lim Primary Care Provider Jackson diane Reason for Visit * Reason Comments E-prescribe Rx Request Encounter Details Date Type Department Care Team Description 02/14/2018 Refill Pulmonology - [place] [address] [facility] [address] [place] [address] Milly Barnes MD [address] [place] [address] E-prescribe Rx Request Social History [...] NO Patients current insurance carrier is: Payor: [employer] / Plan: [employer] $0 [id number] / Product Type: MEDICAID [id number] * Telephone Encounter - Tiffani Joshi - [...] NO Patients current insurance carrier is: Payor: [employer] / Plan: [employer] $0 [id number] / Product Type: MEDICAID [id number] documented in this encounter Plan of Treatment Not on file documented as of this encounter Visit Diagnoses Not on filedocumented in this encounter Care Teams Mechanical Field Engineer Relationship Specialty Start Date End Date Trav Greenberg PCP - General Internal Medicine 07/13/17 09/04/18 Blessing Beltran MD PCP - General Family Practice 09/05/18 03/05/19 Saúl Maier PCP - General Internal Medicine 03/06/19 documented as of this encounter
--- OUTSIDE RECORDS SUMMARY | 2025-05-15 13:34 | XMS_ITS | Encounter Summary ---
Author Organization [facility] Address [address] [place] [address] Care Team Providers Care Fishing Line Winding Machine Operator Name Role Phone Saúl Maier Primary Care Provider Unavailab le Encounter Details Date Type Department Care Team Description 09/12/2019 Release of Information Medical Records [address] [place] [id number] Abstract, Provider Social History Tobacco Use Types [...] on filedocumented in this encounter Care Teams Fishing Line Winding Machine Operator Relationship Specialty Start Date End Date Saúl Maier PCP - General Internal Medicine 03/06/19 documented as of this encounter
--- OUTSIDE RECORDS SUMMARY | 2025-05-15 13:34 | XMS_ITS | Clinical Summary ---
Author Organization [facility] Address [address] [place] [address] Care Team Providers Care Reinstatement Clerk Name Role Phone Saúl Maier Primary [...] Rinse mouth after use. 0 Active Tiotropium Onamia Monohydrate (SPIRIVA RESPIMAT) 1.25 MCG/ACT Aero Soln [...] SCREENING/FOLLOWUP 09/17/2024 SOCIAL NEEDS SCREENING 09/17/2024 INFLUENZA (#1) 2025 Care Teams Reinstatement Clerk Relationship Specialty Start Date End Date Saúl Maier PCP - General Internal Medicine 03/06/19
--- OUTSIDE RECORDS SUMMARY | 2025-05-15 13:34 | XMS_ITS | Encounter Summary ---
Author Organization [facility] Address [address] [place] [address] Care Team Providers Care Optometrist Assistant Name Role Phone Saúl Maier Primary Care Provider Unavailab le Reason for Visit * Reason Comments E-prescribe Rx Request Encounter Details Date Type Department Care Team Description 04/10/2019 Refill Pulmonology - [place] [address] [facility] [address] [place] [address] Milly Barnes MD [address] [place] [address] E-prescribe Rx Request Social History [...] NO Patients current insurance carrier is: Payor: [facility] / Plan: [facility] / Product Type: MEDICAID RISK documented in this encounter Plan of Treatment Not on file documented as of this encounter Visit Diagnoses Not on filedocumented in this encounter Care Teams Optometrist Assistant Relationship Specialty Start Date End Date Saúl Maier PCP - General Internal Medicine 03/06/19 documented as of this encounter
--- OUTSIDE RECORDS SUMMARY | 2025-05-15 13:34 | XMS_ITS | Clinical Summary ---
Author Organization [facility] Address [address] [place] [address] Care Team Providers Care Extrusion Engineer Name Role Phone Unavailable Primary Care Provider Unavailabl e Encounters Date Type Department Care Team Description 05/07/2025 Transcribe Orders [place] [id number] [place] [address] Anabel Garvin MD Vocal cord dysfunction (Primary Dx) from Last 3 Months Social History Tobacco Use Types Packs/Day Years Used Date Smoking Tobacco: Never Assessed Sex and Gender Information Value Date Recorded Sex Assigned at Not on file Legal Sex Male 6:42 PM EST Gender Identity Not on file Sexual Orientation Not on file Plan of Treatment Health Maintenance Due Date Last Done Comments Hepatitis C Virus Screening 1979 HIV Screening 11/18/1992 DTaP/Tdap/Td Vaccines (1 - Tdap) 11/18/1998 Hepatitis B Vaccines (1 of 3 - 19+ 3-dose series) 11/18/1998 HPV Vaccines (1 - 3-dose SCD M series) 11/18/2006 COVID-19 Vaccine (2023-2 5 season) 2024 Pneumococcal Vaccine: Pediat nayeli (0-5 Years) and At-Risk Patients (6 to 49 Years) Aged Out No longer eligible b ased on patient's age to complete this topic
--- OUTSIDE RECORDS SUMMARY | 2025-05-15 13:34 | XMS_ITS | Clinical Summary ---
Author Organization [facility] Address [address] [address] Care Team Providers Care Navigation Officer Name Role Phone Saúl Maier Primary Care Provider [phone] Allergies No known active allergies Medications acetaminophen [...] Influenza Vaccine (#1) 2025 Insurance Care Teams Navigation Officer Relationship Specialty Start Date End Date Saúl Maier PA [address] [place] [address], [address] [place] [address] PCP - General Physician Jamb Cutter 01/30/22
== END 2025-05-15 13:36 | disposition home or self-care (01) ==
LOC: HO.HPS 13:16
PROVIDERS: PCP Physician Assistant; Visit Provider Internal Medicine Pulmonary Disease
DX: J45.50 Severe persistent asthma, uncomplicated (principal); Z91.09 Other allergy status, other than to drugs and biological substances
CPT/HCPCS: 99214

== ENCOUNTER → 2025-05-15 13:15 | Outpatient (BNVA) | payer OTHER, SELFPAY | PROVIDERS: PCP Physician Assistant; Visit Provider Internal Medicine Pulmonary Disease | DX: J45.50 Severe persistent asthma, uncomplicated (principal); Z91.09 Other allergy status, other than to drugs and biological substances | CPT/HCPCS: 99212 ==

== ENCOUNTER 2025-05-29 07:51 | Outpatient (AMB) | payer OTHER, SELFPAY ==
--- OUTSIDE RECORDS SUMMARY | 2025-05-29 07:54 | XMS_ITS | Clinical Summary ---
Author Organization [facility] Address [address] [address] Care Team Providers Care Broadcast News Producer Name Role Phone Saúl Maier Primary Care Provider [phone] Allergies No known active allergies Medications acetaminophen [...] Influenza Vaccine (#1) 2025 Insurance Care Teams Broadcast News Producer Relationship Specialty Start Date End Date Saúl Maier PA [address] [place] [address], [address] [place] [address] PCP - General Physician Beef Cattle Specialist 01/30/22
--- OUTSIDE RECORDS SUMMARY | 2025-05-29 07:54 | XMS_ITS | Clinical Summary ---
Author Organization [facility] 299 [facility] Address [address] [place] [address] Phone Care Team Providers Care Supervisor Baking Name Role Phone Saúl Maier Primary Care [...] Date COPD (chronic obstructive pu lmonary disease) ([facility], [facility] V28) 10/03/2017 Allergic rhinitis 07/14/2017 Asthma-chronic obstructive p ulmonary disease overlap syndrome ([facility], [facility] V28) 04/16/2017 Obstructive sleep apnea syndrome 04/16/2017 Asthma 12/08/2016 Gastroesophageal reflux disease 12/08/2016 Encounters Date Type Department Care Team Description 04/21/2025 8:00 AM EDT Office Visit Pulmonology - [address] [address] Anabel Garvin MD Severe asthma, unspecified whether complicated, unspecified whether persistent (Primary Dx); Stridor; Vocal cord dysfunction from Last 3 Months Medical History Medical History Date Comments Allergic rhinitis 07/14/2017 DX:Allergic rh initis Asthma 12/08/2016 DX:Asthma Asthma-chronic obstructive p ulmonary disease overlap syndrome ([facility], [facility] V28) 04/16/2017 DX:Asthma-chronic obstructiv e pulmonary disease overlap syndrome ([facility]) Gastroesophageal reflux disease 12/08/2016 DX:Gastroesophageal reflux disease Obstructive sleep apnea syndrome 04/16/2017 DX:Obstructive sleep apnea syndrome COPD (chronic obstructive pu lmonary disease) ([facility], [facility] V28) 10/03/2017 DX:COPD (chronic o bstructive pulmonary disease) ([facility]) Social History Tobacco Use Types [...] 04/21/2025 8:14 AM EDT Plan of Treatment Upcoming Encounters Date Type Department Care Team ([facility] st Contact Info) Description 07/24/2025 8:00 AM EST Office Visit Pulmonology - [address] [phone] Anabel Garvin MD [address] [place] [address] Health Maintenance Due Date Last Done Comments [...] Procedure Name Priority Date/Time Associated Diagnosis Comments BASIC METABOLIC PANEL Routine 02/23/2025 1:31 PM EDT Severe asthma, unspecified whether complicated, unspecified whether persistent from Last 3 Months or Most Recently Relevant to Health Maintenance Results * (ABNORMAL) Basic metabolic panel (02/23/2025 1:31 PM EDT) Sodium 138 133 - 145 mmol/L LAB CHEMISTRY METHOD 02/23/2025 6:02 PM [facility] Potassium 3.9 3.5 - 5.5 mmol/L LAB CHEMISTRY METHOD 02/23/2025 6:02 PM [facility] Chloride 104 96 - 110 mmol/L LAB CHEMISTRY METHOD 02/23/2025 6:02 PM [facility] CO2 26 21 - 32 mmol/L LAB CHEMISTRY METHOD 02/23/2025 6:02 PM [facility] Anion Gap 8 3 - 11 LAB CHEMISTRY METHOD 02/23/2025 6:02 PM [facility] Glucose 127(H) 70 - 100 mg/dL LAB CHEMISTRY METHOD 02/23/2025 6:02 PM EDT [facility] BUN 13 5 - 25 mg/dL LAB CHEMISTRY METHOD 02/23/2025 6:02 PM EDT [facility] Creatinine 1.05 0.70 - 1.30 mg/dL LAB CHEMISTRY METHOD 02/23/2025 6:02 PM EDT [facility] eGFR 89 >=60 mL/min/1. 73m2 LAB CHEMISTRY METHOD 02/23/2025 6:02 PM EDT [facility] Comment:Calculation based on the Chronic Kidney Disease Epidemiology Collaboration (CKD-EPI) equation refit without adjustment for race. BUN/Creatinine Ratio 12.4 LAB [facility] Calcium 9.6 8.5 - 10.5 mg/dL LAB CHEMISTRY METHOD 02/23/2025 6:02 PM [facility] Blood Venous blood specimen / Unknown Venipuncture / Unknown 02/23/2025 1:31 PM EDT 02/23/2025 2:03 PM EDT us Anabel Garvin MD LAB BLOOD ORDERABLES Final Result [facility] [address] [place] [address], from Last 3 Months or Most Recently Relevant to Health Maintenance Insurance [facility] [place] [address] Care Teams Supervisor Baking Relationship Specialty Start Date End Date Saúl Maier PA [address] [place] [address] PCP - General Physician Solutions Consultant 12/09/24
--- OUTSIDE RECORDS SUMMARY | 2025-05-29 07:55 | XMS_ITS | Clinical Summary ---
Author Organization [facility] Address [address] [place] [address] Care Team Providers Care Data Coordinator Name Role Phone Saúl Maier Primary Care Provider + Encounters Date Type Department Care Team Description 05/07/2025 Transcribe Orders [address] [address] Anabel Garvin MD Vocal cord dysfunction [...] (1 - 3-dose SCD M series) 11/18/2006 Colonoscopy 11/18/2024 Influenza Vaccine 04/17/2025 COVID-19 Vaccine ( - 2023-2 5 season) 2025 Pneumococcal Vaccine: Pediat nayeli (0-5 Years) and At-Risk Patients (6 to 49 Years) Aged Out No longer eligible b ased on patient's age to complete this topic Insurance [facility] Care Teams Data Coordinator Relationship Specialty Start Date End Date Saúl Maier PA [address] [place] [phone] PCP - General Adult Health - PA/MEME/MARKETING GRAPHICS SPECIALIST/CAROUSEL OPERATOR 05/20/25
[2025-05-29 07:59] VITALS: BP 104/62; PULSE 56; O2SAT 97; BMI 24.3
--- NOTE | 2025-05-29 07:59 | MHC.PC.OV ---
Vital Signs 05/29/25 07:59 Height 5 ft 5 in Weight 146 lb BMI 24.3 BP 104/62 Blood Pressure Location Lt brachial Position Sitting Pulse 56 Pulse Source Pulse Oximeter Pulse Oximetry (%) 97 Oxygen Delivery Method Room Air Intake Visit Re[place] [facility] [place] back seizure Allergies cat dander (CATS) Allergy (Mild, Verified 05/29/25 07:59) GENERALIZED ALLERGY SYMPTOMS dog dander (DOGS) Allergy (Mild, Verified 05/29/25 07:59) GENERALIZED ALLERGY SYMPTOMS tree and shrub pollen (TREE) Allergy (Mild, Verified 05/29/25 07:59) GENERALIZED ALLERGY SYMPTOMS FROM PINE TREES Tobacco use date assessed: 04/09/25 Dental Screening Dental Screen Date: 12/19/24 HPI HPI Comments History of Present Illness Details 44 y/o Male patient who presents to the clinic for HDF. He was admitted at [facility] [place] - 05/12 for an evaluation and treatment for breakthrough seizure. Head CT was negative for any acute abnormalities. He has a history of epilepsy and has been on multiple antiseizure medications. His Clobazam was increased by Neuro to 10 mg in the morning and 15 mg in the evening. He has a Neurologist at [facility] - his appointment scheduled in 06/2025. Today reports feeling tired and Forgness and forgetful at times. Denies any new seizures after the hospital discharge. Pt c/o loosing weight lately - feels his clothes are Big. His weight today 146 pounds - back in 04/2025 he weighed 150 pounds. Reports good appetite and eats everything. [facility] Medical History (Updated 05/29/25 @ 08:34 by Evette Hollingsworth NP) Seizures Seizure disorder Breakthrough seizure Cardiomyopathy Uvulitis Claustrophobia Takotsubo cardiomyopathy Schatzki's ring Gastritis Sleep apnea Diabetes Gastroparesis Migraine headache with aura Enlarged liver Postoperative hypothyroidism Thyroid cancer Vitamin D deficiency Multinodular thyroid ABPA (allergic bronchopulmonary aspergillosis) Seizures Asthma Surgical History (Updated 05/20/25 @ 00:01 by Samanta Patel) S/P total thyroidectomy History of esophagogastroduodenoscopy (EGD) S/P removal of thyroid nodule History of cholecystectomy Family History Maternal Grandmother Emphysema, unspecified Father Diabetes Mother No problems noted. Paternal Grandfather Liver cancer Colon cancer Social History Household Members: Family Housing: Apartment Are you a primary career and guidance counselor to a significant other at home: No Do you presently have visiting nurse or other home services: No Alcohol intake: never Comment: has poor balance Patient Tobacco Use Status: Never used Tobacco Tobacco use type: Cigarette e-Cigarette/Vaping Use: Never Used Second Hand Smoke Exposure: No Substance Use Type: Marijuana Advance Directives Date on File: 05/20/23 service: No Current occupational status: disabled Current occupation: rt handed Cognitive needs: No Hearing needs: No Vision needs: No Questionnaire PHQ-9 Over the last 2 weeks, how often have you been bothered by any of the following problems? 1. Little interest or pleasure in doing things: nearly every day 2. Feeling down, depressed, or hopeless: nearly every day 3. Trouble falling or staying asleep, or sleeping too much: nearly every day 4. Feeling tired or having little energy: nearly every day 5. Poor appetite or overeating: more than half the days 6. Feeling bad about yourself - or that you are a failure or have let yourself or your family down: nearly every day 7. Trouble concentrating on things, such as reading the newspaper or watching television: nearly every day 8. Moving or speaking so slowly that other people could have noticed. Or the opposite - being so fidgety or restless that you have been moving around a lot more than usual: several days 9. Thoughts that you would be better off or of hurting yourself in some way: several days Total score: 22 Depression Screening Interpretation: Positive Depression Screening Follow-up: Existing condition and In treatment Depression Screening Done: Yes Source: Developed by Drs. Ramses Nguyen, Debi Russ, Colin Rowell and colleagues, with an educational javy from [employer]. Thrive Questionnaire Date Thrive assessed: 10/01/24 I am a: Patient What is your living situation today?: I have a place to live, but I am worried about losing it in the future Within the past 12 months, did the food you bought not last and you didn't have the money to get more?: Sometimes True Within the past 12 months, did you worry whether your food would run out before you got money to buy more?: Sometimes True Do you have trouble paying for medicines?: No Do you have trouble getting transportation to medical appointments?: Yes Do you have trouble paying your heating and electricity bill?: Yes Do you have trouble taking care of your child, family member or friend?: No Do you have trouble with day-to-day activities such as bathing, preparing meals, shopping, managing finances, etc.?: Yes Are you currently unemployed and looking for a job?: Yes Are you interested in more education?: No Please select the resources that you would like help with: Daily support Currently or been in a relationship where the following occur: I choose not to answer THRIVE Score: 5 MOOSE-7 AMB Questionnaire MOOSE-7 Date MOOSE - 7 assessed: 10/01/24 Source: Developed by Drs. Ramses Nguyen, Debi Russ, Colin Rowell and colleagues, with an educational javy from [employer]. Review of Systems Const All systems reviewed & are unremarkable except as noted in HPI and below Physical exam (Primary Care) Vital Signs: Last Vital Signs Pulse 56 05/29/25 07:59 BP 104/62 05/29/25 07:59 Pulse Ox 97 05/29/25 07:59 Oxygen Delivery Method Room Air 05/29/25 07:59 BMI result Body Mass Index 24.3 Tobacco/Smoking Status: Tobacco use Status Tobacco use date assessed 04/09/25 05/29/25 08:03 Patient Tobacco Use Status Never used Tobacco 05/29/25 08:03 Tobacco use type Cigarette 05/29/25 08:03 e-Cigarette/Vaping Use Never Used 05/29/25 08:03 PHQ-9: PHQ-9 Score PHQ-9: Total score 22 05/29/25 08:03 Depression Screening Interpretation: Positive Depression Screening Follow-up: Existing condition and In treatment Thrive Assessment: Date of Thrive Assessment Date Thrive assessed 10/01/24 05/29/25 08:03 Currently or been in a relationship where the following occur: I choose not to answer Const General: no acute distress Orientation/consciousness: patient oriented x3 Resp Effort & Inspection: normal respiratory effort Auscultation: clear to auscultation bilaterally Cardio Heart sounds: S1 normal heart sound present and S2 normal heart sound present Neuro General: patient oriented x3, gait normal and moves all extremities Psych Speech and movement: Normal speech and movement present Coding Level of Care Code Est Pt Level 4 (01581) Diagnoses Seizures R56.9 Time Spent (min) 20 Assessment & Plan Assessment & Plan (1) Seizures: Code(s): R56.9 - Unspecified convulsions Category: Medical Plan: Managed and followed by [facility] Neuro Continue on medications as directed. Advised to purchase a Scale - needs to weigh himself every morning without Clothes for 1 week.
== END 2025-05-29 08:59 | disposition home or self-care (01) ==
LOC: HO.HMCH 07:52
PROVIDERS: PCP Physician Assistant; Visit Provider Nurse Practitioner Family
DX: R56.9 Unspecified convulsions (principal)

== ENCOUNTER → 2025-05-29 07:51 | Outpatient (BNVA) | payer OTHER, SELFPAY | PROVIDERS: PCP Physician Assistant; Visit Provider Nurse Practitioner Family | DX: R56.9 Unspecified convulsions (principal); Z13.31 Encounter for screening for depression | CPT/HCPCS: 99212 ==

== ENCOUNTER 2025-06-04 06:17 | Outpatient (REF) | payer OTHER, SELFPAY ==
--- OUTSIDE RECORDS SUMMARY | 2025-06-04 06:20 | XMS_ITS | Clinical Summary ---
Author Organization [facility] Address [address] [place] [address] Care Team Providers Care Catalyst Plant Supervisor Name Role Phone Saúl Maier Primary Care Provider + Encounters Date Type Department Care Team Description 05/07/2025 Transcribe Orders [address] [address] Anabel Garvin MD Vocal cord [...] patient's age to complete this topic Insurance [facility] Care Teams Catalyst Plant Supervisor Relationship Specialty Start Date End Date Saúl Maier PA [address] [place] [phone] PCP - General Adult Health - [place]/MEME/CROSSING TENDER/FLYING I INSTRUCTOR 05/20/25
--- OUTSIDE RECORDS SUMMARY | 2025-06-04 06:20 | XMS_ITS | Clinical Summary ---
Author Organization [facility] [address] [facility] Address [address] [place] [address] Phone Care Team Providers Care Carrier Blower Name Role Phone Saúl Maier Primary Care [...] Date COPD (chronic obstructive pu lmonary disease) ([facility]24, [facility] V28) 10/03/2017 Allergic rhinitis 07/14/2017 Asthma-chronic obstructive p ulmonary disease overlap syndrome ([facility] V24, [facility] V28) 04/16/2017 Obstructive sleep apnea syndrome 04/16/2017 Asthma 12/08/2016 Gastroesophageal reflux disease 12/08/2016 Encounters Date Type Department Care Team Description 04/21/2025 8:00 AM EDT Office Visit Pulmonology - [address] [address] Anabel Garvin MD Severe asthma, unspecified whether complicated, unspecified whether persistent (Primary Dx); Stridor; Vocal cord dysfunction from Last 3 Months Medical History Medical History Date Comments Allergic rhinitis 07/14/2017 DX:Allergic rh initis Asthma 12/08/2016 DX:Asthma Asthma-chronic obstructive p ulmonary disease overlap syndrome ([facility] V24, [facility] V28) 04/16/2017 DX:Asthma-chronic obstructiv e pulmonary disease overlap syndrome ([facility]) Gastroesophageal reflux disease 12/08/2016 DX:Gastroesophageal reflux disease Obstructive sleep apnea syndrome 04/16/2017 DX:Obstructive sleep apnea syndrome COPD (chronic obstructive pu lmonary disease) ([facility] V24, [facility] V28) 10/03/2017 DX:COPD (chronic o bstructive pulmonary disease) ([facility]) Social History Tobacco Use Types [...] Upcoming Encounters Date Type Department Care Team ([facility] st Contact Info) Description 07/24/2025 8:00 AM EST Office Visit Pulmonology - [address] [phone] Anabel Garvin MD [address] [place] [address] Health Maintenance Due Date Last Done Comments [...] mmol/L LAB CHEMISTRY METHOD 02/23/2025 6:02 PM [facility] Potassium 3.9 3.5 - 5.5 mmol/L LAB CHEMISTRY METHOD 02/23/2025 6:02 PM [facility] Chloride 104 96 - 110 mmol/L LAB CHEMISTRY METHOD 02/23/2025 6:02 PM [facility] CO2 26 21 - 32 mmol/L LAB CHEMISTRY METHOD 02/23/2025 6:02 PM [facility] Anion Gap 8 3 - 11 LAB CHEMISTRY METHOD 02/23/2025 6:02 PM [facility] Glucose 127(H) 70 - 100 mg/dL LAB CHEMISTRY METHOD 02/23/2025 6:02 PM EDT [facility] BUN 13 5 - 25 mg/dL LAB CHEMISTRY METHOD 02/23/2025 6:02 PM EDT [facility] Creatinine 1.05 0.70 - 1.30 mg/dL LAB CHEMISTRY METHOD 02/23/2025 6:02 PM EDT [facility] eGFR 89 >=60 mL/min/1. 73m2 LAB CHEMISTRY METHOD 02/23/2025 6:02 PM EDT [facility] Comment:Calculation based on the Chronic Kidney Disease Epidemiology Collaboration (CKD-EPI) equation refit without adjustment for race. BUN/Creatinine Ratio 12.4 LAB [facility] Calcium 9.6 8.5 - 10.5 mg/dL LAB CHEMISTRY METHOD 02/23/2025 6:02 PM [facility] Blood Venous blood specimen / Unknown Venipuncture / Unknown 02/23/2025 1:31 PM EDT 02/23/2025 2:03 PM EDT us Anabel Garvin MD LAB BLOOD ORDERABLES Final Result [facility] [address] [place] [address], from Last 3 Months or Most Recently Relevant to Health Maintenance Insurance [facility] Care Teams Carrier Blower Relationship Specialty Start Date End Date Saúl Maier PA [address] [place] [address] PCP - General Physician Undergraduate Advisor 12/09/24
--- OUTSIDE RECORDS SUMMARY | 2025-06-04 06:20 | XMS_ITS | Clinical Summary ---
Author Organization [facility] Address [address] [address] Care Team Providers Care Club Waiter/Waitress Name Role Phone Saúl Maier Primary Care Provider [phone] Allergies No known active allergies Medications acetaminophen [...] Influenza Vaccine (#1) 2025 Insurance Care Teams Club Waiter/Waitress Relationship Specialty Start Date End Date Saúl Maier PA [address] [place] [address], [address] [place] [address] PCP - General Physician Spanish Moss Picker 01/30/22
[2025-06-04 09:10] LABS: Free T4 (Free Thyroxine) 1.51 ng/dL (0.71-1.85); Thyroid Stimulating Hormone 0.03 uIU/mL (0.32-4.0)
[2025-06-05 17:53] LABS: Thyroglobulin 1.2 ng/mL; Thyroglobulin Antibodies <1 IU/mL (< or = 1)
== END 2025-06-04 06:18 | disposition home or self-care (01) ==
LOC: HO.LAB 06:17
PROVIDERS: PCP Physician Assistant; Visit Provider Student in an Organized Health Care Education/Training Program
DX: C73 Malignant neoplasm of thyroid gland (principal); E89.0 Postprocedural hypothyroidism
CPT/HCPCS: 36415; 84432; 84439; 84443; 86800

== ENCOUNTER 2025-06-11 07:57 | Outpatient (AMB) | payer OTHER, SELFPAY ==
--- OUTSIDE RECORDS SUMMARY | 2025-06-11 08:01 | XMS_ITS | Encounter Summary ---
Author Organization [facility] Address [address] [place] [address] Care Team Providers Care Sewing Machine Maintenance Mechanic Name Role Phone Trav Greenberg Primary Care Provider Blessing Gilmore MD Primary Care Provider Saúl Lim Primary Care Provider Jackson diane Reason for Visit * Reason Comments E-prescribe Rx Request Encounter Details Date Type Department Care Team Description 02/14/2018 Refill Pulmonology - [place] [address] [facility] [address] [place] [address] Milly Barnes MD [address] [place] [address] E-prescribe Rx Request Social History [...] NO Patients current insurance carrier is: Payor: [employer] / Plan: Advaction $0 [id number] / Product Type: MEDICAID [id number] * Telephone Encounter - Tiffani Joshi - [...] NO Patients current insurance carrier is: Payor: [employer] / Plan: Advaction $0 [id number] / Product Type: MEDICAID [id number] documented in this encounter Plan of Treatment Not on file documented as of this encounter Visit Diagnoses Not on filedocumented in this encounter Care Teams Sewing Machine Maintenance Mechanic Relationship Specialty Start Date End Date Trav Greenberg PCP - General Internal Medicine 07/13/17 09/04/18 Blessing Beltran MD PCP - General Family Practice 09/05/18 03/05/19 Saúl Maier PCP - General Internal Medicine 03/06/19 documented as of this encounter
--- OUTSIDE RECORDS SUMMARY | 2025-06-11 08:01 | XMS_ITS | Clinical Summary ---
Author Organization [facility] Address [address] [address] Care Team Providers Care Registered Nurse Obstetrics Name Role Phone Saúl Maier Primary Care Provider [phone] Allergies No known active allergies Medications acetaminophen [...] Influenza Vaccine (#1) 2025 Insurance Care Teams Registered Nurse Obstetrics Relationship Specialty Start Date End Date Saúl Maier PA [address] [place] [address], [address] [place] [address] PCP - General Physician Director Of Premium Seat Sales 01/30/22
--- OUTSIDE RECORDS SUMMARY | 2025-06-11 08:01 | XMS_ITS | Clinical Summary ---
Author Organization [facility] [address] [facility] Address [address] [place] [address] Phone Care Team Providers Care Lineman Service Or Work Dispatcher Name Role Phone Saúl Maier Primary Care [...] Date COPD (chronic obstructive pu lmonary disease) ([facility], [facility] V28) 10/03/2017 Allergic rhinitis 07/14/2017 Asthma-chronic obstructive p ulmonary disease overlap syndrome ([facility], [facility]28) 04/16/2017 Obstructive sleep apnea syndrome 04/16/2017 Asthma 12/08/2016 Gastroesophageal reflux disease 12/08/2016 Encounters Date Type Department Care Team Description 04/21/2025 8:00 AM EDT Office Visit Pulmonology - [address] [address] Anabel Garvin MD Severe asthma, unspecified whether complicated, unspecified whether persistent (Primary Dx); Stridor; Vocal cord dysfunction from Last 3 Months Medical History Medical History Date Comments Allergic rhinitis 07/14/2017 DX:Allergic rh initis Asthma 12/08/2016 DX:Asthma Asthma-chronic obstructive p ulmonary disease overlap syndrome ([facility], [facility] V28) 04/16/2017 DX:Asthma-chronic obstructiv e pulmonary disease overlap syndrome ([facility]) Gastroesophageal reflux disease 12/08/2016 DX:Gastroesophageal reflux disease Obstructive sleep apnea syndrome 04/16/2017 DX:Obstructive sleep apnea syndrome COPD (chronic obstructive pu lmonary disease) ([facility], [facility] V28) 10/03/2017 DX:COPD (chronic o [...] Upcoming Encounters Date Type Department Care Team ([facility] st Contact Info) Description 07/24/2025 8:00 AM EST Office Visit Pulmonology - [address] [phone] Anabel Garvin MD [address] [place] [address] Health Maintenance Due Date Last Done Comments [...] mmol/L LAB CHEMISTRY METHOD 02/23/2025 6:02 PM [facility] Potassium 3.9 3.5 - 5.5 mmol/L LAB CHEMISTRY METHOD 02/23/2025 6:02 PM [facility] Chloride 104 96 - 110 mmol/L LAB CHEMISTRY METHOD 02/23/2025 6:02 PM [facility] CO2 26 21 - 32 mmol/L LAB CHEMISTRY METHOD 02/23/2025 6:02 PM [facility] Anion Gap 8 3 - 11 LAB CHEMISTRY METHOD 02/23/2025 6:02 PM [facility] Glucose 127(H) 70 - 100 mg/dL LAB CHEMISTRY METHOD 02/23/2025 6:02 PM EDT [facility] BUN 13 5 - 25 mg/dL LAB CHEMISTRY METHOD 02/23/2025 6:02 PM EDT [facility] Creatinine 1.05 0.70 - 1.30 mg/dL LAB CHEMISTRY METHOD 02/23/2025 6:02 PM EDT [facility] eGFR 89 >=60 mL/min/1. 73m2 LAB CHEMISTRY METHOD 02/23/2025 6:02 PM EDT [facility] Comment:Calculation based on the Chronic Kidney Disease Epidemiology Collaboration (CKD-EPI) equation refit without adjustment for race. BUN/Creatinine Ratio 12.4 LAB CHEMISTRY METHOD [facility] Calcium 9.6 8.5 - 10.5 mg/dL LAB CHEMISTRY METHOD 02/23/2025 6:02 PM [facility] Blood Venous blood specimen / Unknown Venipuncture / Unknown 02/23/2025 1:31 PM EDT 02/23/2025 2:03 PM EDT us Anabel Garvin MD LAB BLOOD ORDERABLES Final Result [facility] [address] [place] [address], from Last 3 Months or Most Recently Relevant to Health Maintenance Insurance [facility] [place] [address] Care Teams Lineman Service Or Work Dispatcher Relationship Specialty Start Date End Date Saúl Maier PA [address] [place] [address] PCP - General Physician Cash Register Mechanic 12/09/24
--- OUTSIDE RECORDS SUMMARY | 2025-06-11 08:01 | XMS_ITS | Clinical Summary ---
Author Organization [facility] Address [address] [place] [address] Care Team Providers Care Bread Slicer Machine Name Role Phone Saúl Maier Primary Care Provider + Encounters Date Type Department Care Team Description 05/07/2025 Transcribe Orders [address] [address] Anabel Garvin MD Vocal cord [...] patient's age to complete this topic Insurance [facility] Care Teams Bread Slicer Machine Relationship Specialty Start Date End Date Saúl Maier PA [address] [place] [phone] PCP - General Adult Health - [place]/MEME/EXAMINATION SCORER/SANITARY PLUMBER 05/20/25
[2025-06-11 08:02] VITALS: BP 100/62; PULSE 70; O2SAT 98; BMI 24.5
--- NOTE | 2025-06-11 08:02 | A.OFFVIS_ITS ---
Vital Signs 3 06/11/25 08:02 Height 5 ft 5 in Weight 147 lb 7.828 oz BMI 24.5 BP 100/62 Blood Pressure Location Lt brachial Position Sitting Pulse 70 Pulse Source Pulse Oximeter Pulse Oximetry (%) 98 Oxygen Delivery Method Room Air Intake Visit Reasons: history of thyroid cancer Intake Note: Diabetes managed by PCP Last Diabetic eye exam: Last exam was sometime in February/March 2025. Last Podiatry Visit: Doesn't have one Random Glucose: 140 mg/dl HgA1C: 5.9% 04/09/25 Stiff Leg Operator Required: No Accompanied by: Self / Same As Patient Allergies cat dander (CATS) Allergy (Mild, Verified 06/11/25 08:06) GENERALIZED ALLERGY SYMPTOMS dog dander (DOGS) Allergy (Mild, Verified 06/11/25 08:06) GENERALIZED ALLERGY SYMPTOMS tree and shrub pollen (TREE) Allergy (Mild, Verified 06/11/25 08:06) GENERALIZED ALLERGY SYMPTOMS FROM [place] Medication List - Last Reconciled 06/11/25 by Racquel Salazar MD albuterol-budesonide 90-80 mcg/actuation (Airsupra) 2 inhalations inhalation TID PRN aspirin 81 mg PO DAILY 90 days atorvastatin 80 mg PO DAILY blood sugar diagnostic (FreeStyle Lite Strips) As directed- daily blood-glucose meter (FreeStyle Lite Meter kit) As directed- once daily carvedilol 3.125 mg PO BID cholecalciferol (vitamin D3) 100 mcg (2 x 50 mcg (2,000 unit)) PO DAILY 90 days clobazam 10 mg PO BID empagliflozin (Jardiance) 10 mg PO DAILY hydroxyzine HCl 50 mg PO BEDTIME ipratropium-albuterol 0.5 mg-3 mg(2.5 mg base)/3 mL 3 mL inhalation DAILY lacosamide 200 mg PO BID lancets (FreeStyle Lancets) As directed- daily lansoprazole 30 mg PO DAILY@0630 levothyroxine (Synthroid) 12.5 mcg PO DAILY@0600 levothyroxine (Synthroid) 200 mcg PO DAILY@0600 lisinopril 10 mg PO DAILY metformin ER 500 mg PO BEDTIME montelukast 10 mg PO BEDTIME 90 days nystatin 5 mL PO DAILY PRN 30 days oxcarbazepine 300 mg PO BID sertraline 100 mg PO BEDTIME [Sharps container As directed] sodium chloride 0.9% 3 mL inhalation NEEDED PRN sucralfate 1 g PO DAILY theophylline ER 200 mg (1/2 x 400 mg) PO DAILY Ventolin HFA 90 mcg/actuation (albuterol sulfate) 2 puffs PO Q6H PRN NS HPI Comments Details: 43-year-old male with past medical history of seizure disorder, who is seen today for follow up of 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 JAMIR indeterminate response to therapy History of PTC in detail 11/06/2020: Diagnosed with multinodular thyroid 06/16/2021: FNA of right midpole 1.2 cm thyroid nodule with cytology revealing atypia of undetermined significance ([place] category 3). Afirma was suspicious, and an HRAS mutation was present with a 75% risk of malignancy 11/21/2021: Underwent total thyroidectomy with Dr. Yunior Carlos, pathology revealed classic PTC, multifocal with 3 foci (right upper 1.1 cm, right mid of 0.5 cm and left mid 0.6 cm). No angioinvasion, no lymphatic invasion, no mg neural invasion. Margins were negative. 0/3 lymph nodes examined positive for Mets. Calcified as AJCC stage I, pT1b N0. JAMIR low risk of recurrence. 02/2022: Opted for I 131 ablation which was to be completed via Thyrogen stimulation. However unfortunately after receiving his 1st dose of Thyrogen, he developed chest pressure and was hospitalized for cardiac concerns. Cardiac workup was negative but during the hospitalization he had multiple seizures. 03/15/2022 labs showed TSH 50.8, TG 0.6, TG antibody less than 1 11/22/2022: Ultrasound head and neck: Identified multiple right neck lymph nodes at level 2 and 4 with normal architecture, with right level 2 lymph node measuring up to 2.1 cm. Left neck level 2 and level 4 lymph node also identified with normal architecture measuring up to 2.1 cm in level 2. 04/23/2023: TSH 49.3, no thyroglobulin done, unclear last TSH was so high, does not seem like Thyrogen was administered, patient does not remember but maybe he was not on levothyroxine during this time 10/01/2023: TSH 69.2, TG 4.6, TG antibody less than 1, I do not see a whole-body scan system, likely thyroid hormone withdrawal 01/08/2024: TSH 1.51, free T4 1.08 04/14/2024: TSH 0.11, free T4 0.96 05/15/2024: Ultrasound neck showed bilateral normal-looking cervical lymph nodes, no abnormal lymph nodes identified. 05/09/2024 labs TSH of 2.62 with free T4 of 0.88, thyroglobulin 0.7 TG antibody less than 1 05/15/24:levo increased from 200 to 225 08/11/2024: Synthroid change due to 112.5 mcg daily (200+ half of 25 mcg tablets) 09/30/2024: TSH less than 0.01, free T4 1.96 , TG 0.5, TG antibody undetectable 10/01/2024: Synthroid change to 212.5 mcg Sunday to Sunday (we had told him till ) and 200 mcg tablet Sunday to Sunday. 10/15/2024: US neck Normal-appearing bilateral lymph nodes, with no suspiciously enlarged cervical lymph nodes. 11/01/2024: TSH less than 0.01, free T4 0.84 Interval history Ultrasound neck 04/20/2025 showed normal-appearing bilateral lymph nodes. April 2025: hospitalization for breakthrough seizure, meds were increased, follows with neurology at [facility] 06/04/25: TSH 0.03, free t4 1.51, tg 1, tg ab <1 Currently on levothyroxine 212.5 mcg Sun to Sun and 200 mcg to Sunday Never smoker No family history of thyroid cancer No history of head or neck radiation Physical exam General: sitting comfortably in bed in no acute distress HEENT: normocephalic/atraumatic, moist oral mucosa Neck: supple, symmetrical, no thyromegaly , no dorsocervical or supraclavicular fat pads Cardiac: normal heart sounds Pulm: normal breath sounds B/L, no added breath sounds Abd: not distended, no tenderness Extremities: no edema, no signs of myxedema Laboratory Tests 01/11/21 01/11/21 12/06/21 06:45 06:45 06:32 TSH 1.13 1.18 11.81 H Free T4 1.06 0.95 Thyroglobulin Thyroglobulin Antibody 12/06/21 01/18/22 01/19/22 06:32 06:22 10:00 TSH 13.96 H 1.46 1.23 Free T4 1.15 Thyroglobulin <0.1 L Thyroglobulin Antibody 03/15/22 07/27/22 11/27/22 06:07 06:24 07:32 TSH 50.80 H 0.45 0.05 L Free T4 1.16 1.52 1.31 Thyroglobulin 0.6 L <0.1 L Thyroglobulin Antibody <1 <1 02/13/23 04/23/23 05/11/23 07:03 06:27 06:15 TSH 11.83 H 49.31 H 0.07 L Free T4 1.14 0.83 1.87 H Thyroglobulin 0.5 H 0.2 H Thyroglobulin Antibody <1 <1 10/01/23 10/01/23 01/08/24 06:37 06:37 06:29 TSH 55.33 H 69.20 H 1.51 Free T4 1.19 1.08 Thyroglobulin 4.6 H Thyroglobulin Antibody <1 04/14/24 05/09/24 07:06 14:33 TSH 0.11 L 2.62 Free T4 0.96 0.88 Thyroglobulin 0.7 L Thyroglobulin Antibody <1 Laboratory Tests 01/11/21 01/11/21 12/06/21 06:45 06:45 06:32 TSH 1.13 1.18 11.81 H Free T4 1.06 0.95 Thyroglobulin Thyroglobulin Antibody 12/06/21 01/18/22 01/19/22 06:32 06:22 10:00 TSH 13.96 H 1.46 1.23 Free T4 1.15 Thyroglobulin <0.1 L Thyroglobulin Antibody 03/15/22 07/27/22 11/27/22 06:07 06:24 07:32 TSH 50.80 H 0.45 0.05 L Free T4 1.16 1.52 1.31 Thyroglobulin 0.6 L <0.1 L Thyroglobulin Antibody <1 <1 02/13/23 04/23/23 05/11/23 07:03 06:27 06:15 TSH 11.83 H 49.31 H 0.07 L Free T4 1.14 0.83 1.87 H Thyroglobulin 0.5 H 0.2 H Thyroglobulin Antibody <1 <1 10/01/23 10/01/23 01/08/24 06:37 06:37 06:29 TSH 55.33 H 69.20 H 1.51 Free T4 1.19 1.08 Thyroglobulin 4.6 H Thyroglobulin Antibody <1 04/14/24 08/11/24 09/30/24 07:06 11:38 07:10 TSH 0.11 L < 0.01 L < 0.01 L Free T4 0.96 1.85 1.96 H Thyroglobulin 0.5 H Thyroglobulin Antibody 11/01/24 10:39 TSH < 0.01 L Free T4 0.84 Thyroglobulin Thyroglobulin Antibody Laboratory Tests 06/04/25 06:30 TSH 0.03 L Free T4 1.51 Thyroglobulin 1.0 H Thyroglobulin Antibody <1 EXAMINATION: US HEAD NECK SOFT TISSUE 04/20/25 HISTORY: C73 - Malignant neoplasm of thyroid gland COMPARISON: Comparison is made with the prior examination dated 10/10/2024. FINDINGS: Multiple lymph nodes are again noted bilaterally as described below: Right level II/III lymph node measuring 1.5 x 0.5 x 0.9 cm (previously 1.0 x 1.3 x 0.4 cm). This node demonstrates a prominent fatty hilum. Right level III node measuring 0.8 x 0.3 x 0.5 cm (previously 0.9 x 0.3 x 0.5 cm). Left level III node measuring 0.9 x 0.5 x 0.4 cm (previously 0.9 x 0.3 x 0.5 cm). Right level VA lymph node measuring 0.4 x 0.3 x 0.2 cm (previously 0.3 x 0.2 x 0.3 cm). Right level VA lymph node measuring 0.8 x 0.4 x 0.4 cm (not seen previously). Left level III node measuring 0.7 x 0.4 x 0.5 cm (not seen previously). US/US soft tiss head and/or neck IMPRESSION: A single lymph node on the right measures greater than 1.5 cm in greatest dimension, slightly larger than on the prior study, but demonstrating a prominent fatty hilum. Multiple additional bilateral subcentimeter lymph nodes as described. Electronically signed by: Ramses Kerr MD 04/20/2025 01:29 PM EDT RP Us 10/15/24 CLINICAL HISTORY: C73 - Malignant neoplasm of thyroid gland Soft tissue ultrasound of the neck Comparison: None FINDINGS: The prior ultrasound images and reports are not available for review. The comparison is based on the preliminary report from the well puller. Images were obtained in the area of clinical concern. In this region, the soft tissue shows right level 2 lymph node 1 x 0.3 x 0.4 cm, previously 0.9 x 0.4 x 0.5 cm; right level 5 lymph node 0.3 x 0.2 x 0.3 cm; left level 3 lymph node 0.9 x 0.3 x 0.5 cm, previously 0.7 x 0.2 x 0.6 cm; left level 4 lymph node 0.7 x 0.3 x 0.5 cm, previously 1 x 0.5 x 0.4 cm; left level 4 lymph node 0.7 x 0.5 x 0.5 cm. IMPRESSION: Stable multiple small lymph nodes of the neck. No suspicious enlarged cervical lymph nodes. This document has been electronically signed by: Kenia Gómez MD on 10/15/2024 16:36:52 US SOFT TISSUE OF THE NECK 05/15/24 CLINICAL INFORMATION: Malignant neoplasm of thyroid gland. Status post thyroidectomy. COMPARISON: None available. TECHNIQUE: Linear transducer grayscale and color Doppler examination of the thyroid bed and surrounding soft tissue. FINDINGS: Redemonstration of bilateral cervical lymph nodes. Right cervical lymph nodes: Level 2 measuring 1.5 and 0.5 x 1.9 cm, previously measured 2.1 x 0.7 x 1.8 cm. Normal in morphology. Level 3 measuring 9 x 4 x 5 mm, previously measured 9 x 4 x 7 mm. Normal in morphology. Level VA measuring 8 x 6 x 5 mm, not seen on prior study. Normal in morphology. Left cervical lymph nodes: Level 3:7 x 2 x 6 mm, no definite fatty hilum. Level 4:10 x 5 x 4 mm, normal in morphology. US/US soft tiss head and/or neck IMPRESSION: Redemonstration of bilateral cervical lymph nodes, none of which are pathologically enlarged. There is a left level 3 lymph node measuring 7 x 2 x 6 mm, no definite fatty hilum. Recommend management pharmacologic protocol. Electronically signed by: Yvonne Mejia MD 05/20/2024 02:58 PM EDT US SOFT TISSUE HEAD/NECK 11/22/22 CLINICAL INFORMATION: Malignant neoplasm of thyroid gland. COMPARISON: Ultrasound soft tissue head/neck 06/27/2022. TECHNIQUE: Linear transducer grayscale and color Doppler examination of the thyroid bed and surrounding soft tissue. FINDINGS: RIGHT NECK: 1. Level 2 lymph node measures 2.1 x 0.7 x 1.8 cm. It has a normal architecture. 2. Level 2 lymph node measures 0.9 x 0.4 x 0.4 cm and has normal architecture. Previously it measured 0.6 x 0.2 x 0.3 cm. 3. Level 2 lymph node measures 0.7 x 0.3 x 0.4 cm. It is new and has normal architecture. 4. Level 4 lymph node measures 0.6 x 0.3 x 0.6 cm and has normal architecture. Previously measured 0.6 x 0.2 x 0.3 cm. LEFT NECK: 1. Level 2 lymph node measures 1.7 x 0.7 x 2.1 cm. It has normal architecture. Previously it measured 1.8 x 0.6 x 0.8 cm. 2. Level 4 lymph node measures 1.1 x 0.5 x 0.6 cm. It has normal architecture. Previously it measured 0.7 x 0.5 x 0.5 cm US/US soft tiss head and/or neck IMPRESSION: Benign-appearing bilateral neck lymph nodes as described above. US SOFT TISSUE HEAD/NECK 06/27/22 CLINICAL INFORMATION: Malignant neoplasm of thyroid gland. COMPARISON: US-guided thyroid biopsy 06/16/2021. TECHNIQUE: Linear transducer grayscale and color Doppler examination of the thyroid bed and surrounding soft tissue. FINDINGS: No residual thyroid tissue or thyroid nodule is seen. There are bilateral normal-appearing cervical lymph nodes. The demonstrate normal ultrasound morphology and flow. Right level II measuring 1.2 x 0.5 x 0.4 cm, right level III measuring 0.6 x 0.3 x 0.4 cm and right level IV measuring 0.6 x 0.2 x 0.3 cm. Left level II measuring 1.8 x 0.6 x 0.8 cm, left level V measuring 0.7 x 0.5 x 0.5 cm and left level IV measuring 0.3 x 0.3 x 0.3 cm. US/US soft tiss head and/or neck IMPRESSION: Bilateral normal-appearing lymph nodes. No residual thyroid tissue seen. FOR[facility], LATER [facility] Medical History (Updated 05/29/25 @ 08:34 by Evette Hollingsworth NP) Seizures Seizure disorder Breakthrough seizure Cardiomyopathy Uvulitis Claustrophobia Takotsubo cardiomyopathy Schatzki's ring Gastritis Sleep apnea Diabetes Gastroparesis Migraine headache with aura Enlarged liver Postoperative hypothyroidism Thyroid cancer Vitamin D deficiency Multinodular thyroid ABPA (allergic bronchopulmonary aspergillosis) Seizures Asthma Surgical History S/P total thyroidectomy History of esophagogastroduodenoscopy (EGD) S/P removal of thyroid nodule History of cholecystectomy Family History Maternal Grandmother Emphysema, unspecified Father Diabetes Mother No problems noted. Paternal Grandfather Liver cancer Colon cancer Social History Household Members: Family Housing: Apartment Are you a primary rn care transition to a significant other at home: No Do you presently have visiting nurse or other home services: No Alcohol intake: never Comment: has poor balance Patient Tobacco Use Status: Never used Tobacco Tobacco use type: Cigarette e-Cigarette/Vaping Use: Never Used Second Hand Smoke Exposure: No Substance Use Type: Marijuana Advance Directives Date on File: 05/20/23 service: No Current occupational status: disabled Current occupation: rt handed Cognitive needs: No Hearing needs: No Vision needs: No Physical Exam Vital Signs: Last Vital Signs Pulse 70 06/11/25 08:02 BP 100/62 06/11/25 08:02 Pulse Ox 98 06/11/25 08:02 Oxygen Delivery Method Room Air 06/11/25 08:02 BMI result Body Mass Index 24.5 Results Reviewed Results Reviewed: Laboratory Last Values Glucose (Clinic) 140 mg/dL (60-115) H 06/11/25 08:07 Assessment & Plan Assessment & Plan (1) Thyroid cancer: Code(s): C73 - Malignant neoplasm of thyroid gland Category: Medical Plan: 43-year-old male with past medical history of seizure disorder, who is seen today for follow up of 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 JAMIR low risk of recurrence b ased on no angioinvasion, no lymphatic invasion, negative margins, 0/3 lymph nodes examined. Subsequently patient has not received CALLEJAS therapy given poor reaction to Thyrogen. Since he was unable to tolerate Thyrogen, it was mutually decided between him and his past physicians that we will follow him up with surveillance ultrasounds and thyroglobulin markers to monitor for recurrence. His most recent ultrasound was from 2024 did not show any abnormal lymph nodes. Since his stimulated thyroglobulin postoperatively was 0.6, this was very reassuring for being JAMIR low risk of recurrence as well. His unstimulated thyroglobulin subsequently has remained in the range of 0.2-0.5 (Most recent thyroglobulin 1 from May 2025, with a undetectable thyroglobulin antibody), and his labs from October 10 show stimulated thyroglobulin of 4.6 when his TSH was 69.2, classifying him as JAMIR indeterminate response to therapy. His TG has climbed a bit, we will continue to keep an eye on this along with ultrasound imaging. He has been having a lot of trouble with breakthrough seizures. I do not feel comfortable doing thyroid hormone withdrawal given poor reaction to Thyrogen in the past. In indeterminate response, 15% to 20% we will have structural disease identified during follow-up, however in the remainder of the nonspecific changes are either stable or resolved, less than 1% have disease specific We can consider doing a whole-body scan but that would involve levothyroxine withdrawal, which might have severe adverse effects for him. For now we will continue to follow him with repeat thyroid ultrasounds for structural recurrence as well as trending his thyroglobulin tumor markers. His TSH goal would be 0.1-0.5. 09/30/2024: TSH less than 0.01, free T4 1.96 10/01/2024: Synthroid change to 212.5 mcg Sunday to Sunday (we had told him till ) and 200 mcg tablet Sunday to Sunday. 11/01/2024: TSH less than 0.01, free T4 0.84 06/04/25: TSH 0.03, free t4 1.51, tg 1, tg ab <1 Currently on levothyroxine 212.5 mcg Sun to Sun and 200 mcg to Sunday Plan: -reduce levothyroxine to 200 mcg daily -ordered TSH, free T4, TG and TG antibody levels to be done in 6-7 weeks -goal TSH 0.1-0.5 -next neck ultrasound 12 months from the last 1 would be in Apr 2026 -follow up in 11/2025 (2) Hypothyroidism: Code(s): E03.9 - Hypothyroidism, unspecified Category: Medical Qualifiers: Hypothyroidism type: postoperative Qualified Code(s): E89.0 - Postprocedural hypothyroidism Plan: His TSH goal would be 0.1-0.5. 09/30/2024: TSH less than 0.01, free T4 1.96 10/01/2024: Synthroid change to 212.5 mcg Sunday to Sunday (we had told him till ) and 200 mcg tablet Sunday to Sunday. 11/01/2024: TSH less than 0.01, free T4 0.84 06/04/25: TSH 0.03, free t4 1.51, tg 1, tg ab <1 Currently on levothyroxine 212.5 mcg Sun to Sun and 200 mcg to Sunday Plan: -reduce levothyroxine to 200 mcg daily -ordered TSH, free T4, TG and TG antibody levels to be done in 6-7 weeks -goal TSH 0.1-0.5 Plan I spent 30 minutes in reviewing the record, seeing the patient and documenting in the medical record. Orders: Orders 2 Thyroid Stimulating Hormone 7 Weeks C73 - Malignant neoplasm of thyroid gland Thyroglobulin 7 Weeks C73 - Malignant neoplasm of thyroid gland Free T4 (Free Thyroxine) 7 Weeks C73 - Malignant neoplasm of thyroid gland Thyroglobulin Antibodies 7 Weeks C73 - Malignant neoplasm of thyroid gland Thyroglobulin Tumor Marker 7 Weeks C73 - Malignant neoplasm of thyroid gland Medications: New 2 levothyroxine (Synthroid) 200 mcg PO DAILY@0600 90 tabs 3RF Patient Instructions: Reduce levothyroxine (Synthroid ) to 200 mcg daily Repeat blood work in 6 to 7 weeks (beginning of ), we will reach out with results Follow up in November 2025 Coding Level of Care Code Est Pt Level 4 (43758) Complex EM visit Add On G2211 Diagnoses Thyroid cancer C73 Postoperative hypothyroidism E89.0 Hypothyroidism type: postoperative Time Spent (min) 30
[2025-06-11 08:11] LABS: Glucose, Whole Blood 140 mg/dL (60-115)
== END 2025-06-11 08:49 | disposition home or self-care (01) ==
LOC: HO.ENCR 07:58
PROVIDERS: PCP Physician Assistant; Visit Provider Student in an Organized Health Care Education/Training Program
DX: C73 Malignant neoplasm of thyroid gland (principal); E89.0 Postprocedural hypothyroidism
CPT/HCPCS: 99214

== ENCOUNTER → 2025-06-11 07:57 | Outpatient (BNVA) | payer OTHER, SELFPAY | PROVIDERS: PCP Physician Assistant; Visit Provider Student in an Organized Health Care Education/Training Program | DX: E89.0 Postprocedural hypothyroidism (principal); Z85.850 Personal history of malignant neoplasm of thyroid | CPT/HCPCS: 82947; 99212 ==

== ENCOUNTER 2025-07-13 08:41 | Outpatient (AMB) | payer OTHER, SELFPAY ==
--- NOTE | 2025-07-13 08:49 | MHC.PC.OV ---
Vital Signs 07/13/25 08:50 Height 5 ft 5 in Weight 150 lb BMI 25.0 BP 100/62 Blood Pressure Location Lt brachial Position Sitting Pulse 62 Pulse Source Pulse Oximeter Temp 97.0 F Temp Source Temporal Artery Scan Pulse Oximetry (%) 98 Oxygen Delivery Method Room Air Intake Visit Reasons: 3 mnth f/u Allergies cat dander (CATS) Allergy (Mild, Verified 07/13/25 09:04) GENERALIZED ALLERGY SYMPTOMS dog dander (DOGS) Allergy (Mild, Verified 07/13/25 09:04) GENERALIZED ALLERGY SYMPTOMS tree and shrub pollen (TREE) Allergy (Mild, Verified 07/13/25 09:04) GENERALIZED ALLERGY SYMPTOMS FROM [place] Medication List - Last Reconciled 07/13/25 by Saúl Maier PA-C albuterol-budesonide 90-80 mcg/actuation (Airsupra) 2 inhalations inhalation TID PRN aspirin 81 mg PO DAILY 90 days atorvastatin 80 mg PO DAILY blood sugar diagnostic (FreeStyle Lite Strips) As directed- daily blood-glucose meter (FreeStyle Lite Meter kit) As directed- once daily carvedilol 3.125 mg PO BID cholecalciferol (vitamin D3) 100 mcg (2 x 50 mcg (2,000 unit)) PO DAILY 90 days clobazam 10 mg PO BID empagliflozin (Jardiance) 10 mg PO DAILY hydroxyzine HCl 50 mg PO BEDTIME ipratropium-albuterol 0.5 mg-3 mg(2.5 mg base)/3 mL 3 mL inhalation DAILY lacosamide 200 mg PO BID lancets (FreeStyle Lancets) As directed- daily lansoprazole 30 mg PO DAILY@0630 levothyroxine (Synthroid) 200 mcg PO DAILY@0600 lisinopril 10 mg PO DAILY metformin ER 500 mg PO BEDTIME montelukast 10 mg PO BEDTIME 90 days nystatin 5 mL PO DAILY PRN 30 days oxcarbazepine 300 mg PO BID sertraline 100 mg PO BEDTIME [Sharps container As directed] sodium chloride 0.9% 3 mL inhalation NEEDED PRN sucralfate 1 g PO DAILY theophylline ER 200 mg (1/2 x 400 mg) PO DAILY Ventolin HFA 90 mcg/actuation (albuterol sulfate) 2 puffs PO Q6H PRN NS Tobacco use date assessed: 07/13/25 Dental Screening Dental Screen Date: 07/13/25 Did you have a dental visit in the last 12 months?: Yes Did you have a dental problem in the last 6 months where you did not have access to dental care?: No Was dental information given to patient?: Patient has dentist HPI 3 mnth f/u HPI Details Terrance is 44 year-old male here today for a follow-up visit ?Patient? has a past medical history significant for seizure disorder, moderate persistent? asthma, depression and anxiety, thyroid cancer status post thyroidectomy. Epileptic disorder: He is followed by [facility] neurology. Neurology also evaluated did EEG that did show some frontal epileptic activity. He is not any seizure activity and quite some time. He continues on a cocktail of antiseizure medications that seem to be working for him Unfortunately has intolerable side effects (lethargy, memory issues). He is currently working with a social media executive (Pam) .. GERD/dysphagia: Does report having worsening GERD like symptoms and chronic throat congestion. He will be following up with Gastroenterology about this. .. Type 2 diabetes: Today's A1c is a 5.4. He does report having lower sugars in the the later afternoon though he reports eating a lot of candy and sugar which confuses him. He continues on metformin 500 daily.. He does admit to dietary indiscretion as a side effect his seizure medications. PLAN : will hold metformin for now to reduce any hypoglycemic events. History of?thyroid cancer: Followed by endocrinology at [place]. He is status post total thyroidectomy. . Most recent TSH and T4 have been abnormal thus levothyroxine dose has been adjusted ?.. ? Anxiety: Patient he is? seeing therapist (Leila) weekly. Patient continues? on Zoloft .. History of cardiomyopathy:? As above patient recently underwent a cardiac catheterization without any notable blockages in his coronary arteries. ?.. ?Moderate persistent asthma:? Followed by Pulmonology. Recent PFT - showing modererate asthma vs COPD. He does continue on Dupixent which has really helped initially control his asthma symptoms . Unfortunately his asthma has worsened. Will be considering [facility] for a Bronchothermoplasy. He reports as of late his wheezing has been more evident and he attributes this to the changes in weather. [facility] Medical History Seizures Seizure disorder Breakthrough seizure Cardiomyopathy Uvulitis Claustrophobia Takotsubo cardiomyopathy Schatzki's ring Gastritis Sleep apnea Diabetes Gastroparesis Migraine headache with aura Enlarged liver Postoperative hypothyroidism Thyroid cancer Vitamin D deficiency Multinodular thyroid ABPA (allergic bronchopulmonary aspergillosis) Seizures Asthma Surgical History S/P total thyroidectomy History of esophagogastroduodenoscopy (EGD) S/P removal of thyroid nodule History of cholecystectomy Family History Maternal Grandmother Emphysema, unspecified Father Diabetes Mother No problems noted. Paternal Grandfather Liver cancer Colon cancer Social History Household Members: Family Housing: Apartment Are you a primary coronary care unit nurse to a significant other at home: No Do you presently have visiting nurse or other home services: No Alcohol intake: never Comment: has poor balance Patient Tobacco Use Status: Never used Tobacco Tobacco use type: Cigarette e-Cigarette/Vaping Use: Never Used Second Hand Smoke Exposure: No Substance Use Type: Marijuana Advance Directives Date on File: 05/20/23 service: No Current occupational status: disabled Current occupation: rt handed Cognitive needs: No Hearing needs: No Vision needs: No Questionnaire PHQ-9 Over the last 2 weeks, how often have you been bothered by any of the following problems? 1. Little interest or pleasure in doing things: nearly every day 2. Feeling down, depressed, or hopeless: nearly every day 3. Trouble falling or staying asleep, or sleeping too much: nearly every day 4. Feeling tired or having little energy: nearly every day 5. Poor appetite or overeating: more than half the days 6. Feeling bad about yourself - or that you are a failure or have let yourself or your family down: nearly every day 7. Trouble concentrating on things, such as reading the newspaper or watching television: nearly every day 8. Moving or speaking so slowly that other people could have noticed. Or the opposite - being so fidgety or restless that you have been moving around a lot more than usual: several days 9. Thoughts that you would be better off or of hurting yourself in some way: several days Total score: 22 Depression Screening Interpretation: Positive Depression Screening Follow-up: Existing condition and In treatment Depression Screening Done: Yes 78415 - PHQ-9 Billing: Yes Source: Developed by Drs. Ramses Nguyen, Debi Russ, Colin Rowell and colleagues, with an educational javy from [employer]. Thrive Questionnaire Date Thrive assessed: 10/01/24 I am a: Patient What is your living situation today?: I have a place to live, but I am worried about losing it in the future Within the past 12 months, did the food you bought not last and you didn't have the money to get more?: Sometimes True Within the past 12 months, did you worry whether your food would run out before you got money to buy more?: Sometimes True Do you have trouble paying for medicines?: No Do you have trouble getting transportation to medical appointments?: Yes Do you have trouble paying your heating and electricity bill?: Yes Do you have trouble taking care of your child, family member or friend?: No Do you have trouble with day-to-day activities such as bathing, preparing meals, shopping, managing finances, etc.?: Yes Are you currently unemployed and looking for a job?: Yes Are you interested in more education?: No Please select the resources that you would like help with: Daily support Currently or been in a relationship where the following occur: I choose not to answer THRIVE Score: 5 AUDIT C Alcohol Use Questionnaire (AUDIT-C) 1. How often do you have a drink containing alcohol?: Never 3. How often do you have six or more drinks on one occasion?: Never Total Score: 0 MOOSE-7 AMB Questionnaire MOOSE-7 Date MOOSE - 7 assessed: 10/01/24 Feeling nervous, anxious, or on edge: 3 = Nearly every day Not being able to stop or control worryin = Nearly every day Worrying too much about different things: 3 = Nearly every day Trouble relaxin = Nearly every day Being so restless that it is hard to sit still: 3 = Nearly every day Becoming easily annoyed or irritable: 3 = Nearly every day Feeling afraid as if something awful might happen: 3 = Nearly every day Total MOOSE-7 score (0-4 normal; 5-9 mild; 10-14 moderate; 15-21 severe): 21 Source: Developed by Drs. Ramses Nguyen, Debi Russ, Colin Rowell and colleagues, with an educational javy from [employer]. MOOSE-7 Assessment Billing MOOSE-7 Assessment Tool: MOOSE-7 Assessment 63647 Physical exam (Primary Care) Vital Signs: Last Vital Signs Temp 97.0 F 07/13/25 08:50 Pulse 62 07/13/25 08:50 BP 100/62 07/13/25 08:50 Pulse Ox 98 07/13/25 08:50 Oxygen Delivery Method Room Air 07/13/25 08:50 BMI result Body Mass Index 25.0 Tobacco/Smoking Status: Tobacco use Status Tobacco use date assessed 07/13/25 07/13/25 08:54 Patient Tobacco Use Status Never used Tobacco 07/13/25 08:54 Tobacco use type Cigarette 07/13/25 08:54 e-Cigarette/Vaping Use Never Used 07/13/25 08:54 PHQ-9: PHQ-9 Score PHQ-9: Total score 22 07/13/25 09:34 Depression Screening Interpretation: Positive Depression Screening Follow-up: Existing condition and In treatment Thrive Assessment: Date of Thrive Assessment Date Thrive assessed 10/01/24 07/13/25 08:54 Currently or been in a relationship where the following occur: I choose not to answer Office Procedures Flu Questionnaire Does the patient have a severe egg allergy?: No Does the patient have severe life threatening allergies?: No Does the patient have a fever or illness today?: No Has the patient ever had Guillain-[place] Syndrome?: No Has the patient ever had any past reaction to a flu shot?: No Results AMB Hemoglobin A1c AMB Hemoglobin A1c 5.4 % Last Edit by Mariola Kinney CMA on 07/13/25 08:59 Immunizations Fluarix [id number] (PF) 45 mcg (15 mcg x 3)/0.5 mL IM syringe Performing Provider: Saúl Maier PA-C [facility] Administered by: RAFA Martinez on 07/13/25 09:36 Dose Route Admin Location Dispensed Lot Number Expiration Date NDC Box Tender 0.5 mL IM Left Deltoid 0.5 mL [id number] 03/16/26 [id number] Fundation VIS Given Date VIS Provided VIS Publication Date 07/13/25 Single Vaccine 24 Eligibility Eligibility Date Funding Source Not [facility] Eligible 07/13/25 Private Results Reviewed Results Reviewed: Laboratory Last Values Hgb A1c (Clinic) 5.4 % (4.0-6.0) 07/13/25 08:54 Coding Diagnoses Seizure disorder G40.909 Thyroid cancer C73 Type 2 diabetes mellitus with hyperglycemia, without long-term current use of insulin E11.65 Diabetes mellitus complication status: with hyperglycemia Diabetes mellitus senior care insulin use: without senior care use Moderate persistent asthma without complication J45.40 Asthma complication type: uncomplicated Asthma persistence: persistent Asthma severity: moderate Additional Codes PHQ-9 - 00196 - PHQ-9 Billing: Yes ([id number]) MOOSE-7 Assessment Billing - MOOSE-7 Assessment Tool: MOOSE-7 Assessment 50386 ([id number]) Assessment & Plan Assessment & Plan (1) Seizure disorder: Code(s): G40.909 - Epilepsy, unspecified, not intractable, without status epilepticus Category: Medical Plan: Patient has not had a seizure in a few months now. His regime of antiseizure medication seems to be helpful. Follow-up with neurology is scheduled to further evaluate and manage the seizure activity. (2) Thyroid cancer: Code(s): C73 - Malignant neoplasm of thyroid gland Category: Medical Plan: Patient has a history of thyroid cancer in his status post thyroidectomy. Over the last few months he has noted some hoarseness of voice and changing in his voice. He will be following up with his fire alarm installer as well. (3) DMII (diabetes mellitus, type 2): Comment: Pt also with GERD Code(s): E11.9 - Type 2 diabetes mellitus without complications Category: Medical Qualifiers: Diabetes mellitus complication status: with hyperglycemia Diabetes mellitus technician terminal and repeater insulin use: without technician terminal and repeater use Qualified Code(s): E11.65 - Type 2 diabetes mellitus with hyperglycemia Plan: Patient's type 2 diabetes well controlled with current dose of metformin. Today's A1c of 5.4. He does report having lower sugars at night. Will hold his metformin and work on dietary modifications to control his blood sugars, continues on Jardiance. Goal A1c is to remain below 6.5. (4) Asthma: Code(s): J45.909 - Unspecified asthma, uncomplicated Category: Medical Qualifiers: Asthma complication type: uncomplicated Asthma persistence: persistent Asthma severity: moderate Qualified Code(s): J45.40 - Moderate persistent asthma, uncomplicated Plan: Patient followed by [place] pulmonology. Has pretty severe asthma which as of late has not been well controlled even on maximal medical therapy. He will be seeing pulmonology and [facility] to discuss alternative therapies Orders: Orders Hemoglobin A1c 07/13/25 E11.65 - Type 2 diabetes mellitus with hyperglycemia Influenza [id number] Immunization 07/13/25 Z23 - Encounter for immunization AMB Hemoglobin A1c 07/13/25 Z13.9 - Encounter for screening, unspecified Medications: On Hold metformin ER Hold Comment: Doctor's Order 500 mg PO BEDTIME 90 tabs 2RF
[2025-07-13 08:50] VITALS: BP 100/62; PULSE 62; TEMP 36.1; O2SAT 98; BMI 25.0
--- OUTSIDE RECORDS SUMMARY | 2025-07-13 09:12 | XMS_ITS | Data Portability ---
Author Organization [place] - [facility], Allergy Address [address] [address] Care Team Providers Care Binder Caser Name Role Phone NOHEMI THORNE Primary Care [...] and Address Organization Details Recorded Time Asthma [id number] Active 2016 JOHN KYLE MD 100 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 [id number] 580552 Active 2016 JOHN KYLE MD 100 [facility] [place],[address], [place], [address] , [place] - [facility] 5 12:50:26 Obstructi ve sleep apnea syndrome 70902062 Active 2016 JOHN KYLE MD 100 [facility] [place],[address], [place], [place], [address] , [place] - [facility] 5 12:50:26 Allergic rhinitis 47946209 Active 2016 JOHN KYLE MD 100 [facility] [place] [address], [place], [address] , [place] [facility] 5 12:50:26 Chronic obstructi ve pulmonary disease 44211429 Active 2017 JOHN KYLE MD 100 [facility],[place] [address], [place], [address] , [place] [facility] 12:50:26 Stomatiti s 98011962 Active 2022 Oral thrush; Note: Date Diagnosed : 06/19/2023 10:39 AM (B37.0) Not Available [facility] 4 03:21:21 Candidias is of mouth 10476995 Active 2022 Oral thrush; Note: Date Diagnosed : 06/19/2023 10:39 AM (B37.0) Not Available [facility] 4 03:21:21 Sensorine ural hearing loss 41090426 Active 2022 Sensorine ural hearing loss, unilatera l, right ear, with unrestric tran hearing on the contralat eral side; Note: Date Diagnosed : 06/19/2023 10:45 AM (H90.41) Not Available [facility] 4 03:21:21 Dysphagia 55023942 Active 2022 Dysphagia , unspecifi ed; Note: Date Diagnosed : 06/19/2023 10:39 AM (R13.10) Not Available [facility] 4 03:21:21 Uncomplic ated moderate persisten t asthma 553663536 Active 2024 JOHN KYLE MD [address] [place] [address], [place], [address] , [facility] 5 11:14:01 Problem Notes None recorded. Procedures Surgical History Date Name Laterality Status Provider Name and Address Organization Details Recorded Time 02/16/2025 FOL_DP completed JOHN KYLE MD [address] [place] [address], [place], [address], [facility] 02/06/2025 13:02:33 Imaging Results None recorded. Procedure Notes None recorded. Medical Equipment None Reported. Allergies Allergen ID Allergen Name Allergen Category Reaction Reaction Severity Criticality Documentation Date Start Date Code Code System Note Provider Name and Address Organization Details Recorded Time 561331 Canis lupus familiari s extract environme nt Not available Not available Not available 01/29/20242024 91604 4 RxNorm JOHN KYLE MD [address] [place] [address], [place], [address], [facility] 5 12:50:15 724757 cat dander environme nt other Not available Not available 01/29/2024 React ion: Unkno wn; Not Available [facility] 4 01:25:23 Medications Name Sig Start Date Stop Date Status Note LastModified by Organization Details LastModified Time atorvasta tin 40 mg tablet TAKE 1 TABLET BY MOUTH AT BEDTIME 02/16 completed Not Available Not Available Not Available levothyro xine 175 mcg tablet active Medicati on ID: [id number] B rand Name: levothyr oxine Se nd [...] tablet,de layed release active Medicati on ID: [id number] B rand Name: divalpro ex Send Method: [...] Address Organization Details Last Updated DateTime 02/16/2025 07147.19 g 27.3 kg/m2 162.56 cm [facility] - [facility] 02/16/2025 11:04:30 Social History None recorded. [...] Diagnosis SNOMED-CT Code Diagnosis ICD10 Code Diagnosis IMO Codes Diagnosis Note 31550 JOHN KYLE MD [facility] [address] [address] 02/16/2025 10:25:23 02/16/2025 11:20:02 Uncomplicated moderate persistent asthma [id number] J45.40 [id number] Health Concerns Section Related Observation LastModified by Organization Detai ls LastModified Time None Recorded Concern Status LastModified by Organization Details LastModified Time None Recorded Advance Directives Directive None Recorded Payers Insurance Date Sequence Insurance Name Policy Number Policy Tao Covered Member ID Tao Member ID Guarantor Name 02/13/2025 1 [place] [facility] (MEDICAID) Terrance Carranza [id number] Terrance Carranza 02/16/2025 [address] [facility] (MEDICAID HMO) [place] Terrance Carranza [id number] Terrance Carranza Notes Date Note Type Note Provider Name and Address Organization Details Recorded Time text/html ROS as noted in the HPI stridoronset late 20s agenot associated with any surgery or intubationno CT imaging of neck 10/16/[address] GarvinMedically optimized with asthma using triple inhaler therapy, biologic. Impression of increased symptoms despite optimized asthma therapy. Possibility of paradoxical vocal fold movement, referral to ENT.No history of hospitalization for stridor or prolonged [id number] total thyroidectomy, on replacement Synthroid12/04/2022 [place] [facility], [place], modified barium swallowSpeech pathology report not availableUGI noted esophageal rings.Past medical history seizures, cardiomyopathy JOHN KYLE MD [address] [place] [address],[place] [address], [place], [address], [place] [facility] 02/16/2025 11:16:55
== END 2025-07-13 09:37 | disposition home or self-care (01) ==
LOC: HO.HMCH 08:43
PROVIDERS: PCP Physician Assistant; Visit Provider Physician Assistant
DX: Z13.9 Encounter for screening, unspecified (principal); Z23 Encounter for immunization

== ENCOUNTER → 2025-07-13 08:41 | Outpatient (BNVA) | payer OTHER, SELFPAY | PROVIDERS: PCP Physician Assistant; Visit Provider Physician Assistant | DX: G40.909 Epilepsy, unspecified, not intractable, without status epilepticus (principal); K21.9 Gastro-esophageal reflux disease without esophagitis; I42.9 Cardiomyopathy, unspecified; J45.40 Moderate persistent asthma, uncomplicated; E11.65 Type 2 diabetes mellitus with hyperglycemia; Z23 Encounter for immunization | CPT/HCPCS: 83036; 90471; 90656; 96127; 99212 ==

== ENCOUNTER 2025-08-31 09:17 | Inpatient (IN) | payer OTHER, SELFPAY ==
--- NOTE | ~2025-08-31 | XR_ITS ---
EXAMINATION: XR CHEST CLINICAL INFORMATION: seizure ?aspiration COMPARISON: April 06, 2025 TECHNIQUE: AP and lateral views in the upright position. FINDINGS: No consolidation, pleural effusion or pneumothorax. No hyperinflation. Kyphotic deformity in the mid to lower thoracic spine. Cardiomediastinal silhouette size is normal. Degenerative changes in the shoulders. XR/XR chest 2V IMPRESSION: No acute airspace disease. Electronically signed by: Jose Hudson MD 08/31/2025 10:08 AM [facility]
--- NOTE | ~2025-08-31 | CT_ITS ---
EXAMINATION: CT ABDOMEN AND PELVIS WITH CONTRAST CLINICAL INFORMATION: Leukocytosis. Nausea/vomiting/diarrhea. COMPARISON: December 03, 2024 TECHNIQUE: Multidetector volumetric images were obtained from the superior aspect of the liver through the pubic symphysis following administration 85 mL of Omnipaque 350 intravenous contrast. Sagittal and coronal reformatted images were obtained on the technologist's workstation. Oral contrast: No This CT examination was performed using dose optimization techniques as appropriate, variously including the following: *Automated exposure control *Adjustment of mA and/or kV according to patient size (this includes techniques or standardized protocols for targeted exams where dose is matched to indication/reason for exam; i.e. extremities or head) *Use of iterative reconstruction technique DLP: 698 mGy-cm FINDINGS: LUNG BASES: No acute airspace disease or discrete pulmonary nodules. LIVER, GALLBLADDER, AND BILIARY TREE: The gland measures 17 cm. No enhancing mass. Portal veins and hepatic veins are patent. Intrahepatic portion of the IVC is patent. Status post cholecystectomy. No intrahepatic or extrahepatic biliary ductal dilatation. PANCREAS: No solid or cystic lesion. No peripancreatic fluid collection. No main pancreatic ductal dilatation. SPLEEN: 9 cm. No solid or cystic lesion. ADRENAL GLANDS: No nodular lesions. KIDNEYS AND URETERS: No hydronephrosis. No enhancing renal mass. No gross nephrolithiasis. Subcentimeter cyst, left kidney. No dilatation of the ureter. BLADDER: Fluid-filled. GASTROINTESTINAL TRACT: Appendix is normal. There are multiple segmental areas of intestinal wall thickening involving the small intestine with a gas and fluid-filled prominent jejunal loops. Intestinal wall thickening, terminal ileum. No intestinal obstruction pattern. No pneumatosis intestinalis. No pneumoperitoneum. No ascites. No gross diverticulum. Probable intestinal wall thickening and the left hemicolon. ABDOMINAL WALL: Small fat-containing umbilical hernia. LYMPH NODES: Nonspecific prominent mesenteric lymph nodes. VASCULAR: Mixed plaques in the lower distal abdominal aorta wall and iliac arteries without aneurysm or dissection. PELVIC VISCERA: Not enlarged. OSSEOUS STRUCTURES: Mild S-shaped curvature of the thoracolumbar spine. Mild multilevel thoracolumbar spondylosis. No acute fracture or listhesis. Bony pelvis is intact. Coxofemoral joints are intact. Gynecomastia, bilaterally. CT/CT abdomen pelvis w IV con IMPRESSION: Concerning acute inflammatory bowel disease. Crohn's disease versus ulcerative colitis, should be considered in the correct clinical settings. Small fat-containing umbilical hernia. Gynecomastia, bilaterally. This could be seen in drug toxicity, cannabis among other etiologies.. Fleischner guidelines were followed. Electronically signed by: Jose Hudson MD 08/31/2025 12:30 PM [facility]
--- NOTE | 2025-08-31 09:31 | ED_ITS ---
HPI - General Adult General Chief complaint: Seizure Stated complaint: N/V/D,?SZ PER EMS Time Seen by Provider: 08/31/25 09:30 Source: patient, family (Mother at bedside), RN notes reviewed and old records reviewed Mode of arrival: EMS Limitations: no limitations History of Present Illness ED Provider: ZULAY Vo HPI narrative: 44-year-old male with medical history of seizures, learning disability, takotsubo cardiomyopathy, NSTEMI, GERD, MDD, T2DM, asthma, gastroparesis, sleep apnea on CPAP, presents to ED via EMS due to tonic-clonic seizure activity witnessed by mother who went to check on him and found him on the floor of his bedroom with eyes wide, and mouth open and jerking movements of his limbs. Patient states prior to his seizure he woke up this morning with an episode of nausea, and a few episodes of watery diarrhea and states that this is his usual presentation before experiencing a seizure. Patient states that he has been compliant on his medications. Patient denies any alcohol or drug use. Patient states he felt confused after his seizure today. Denies chest pain, shortness of breath, difficulty breathing, abdominal pain, vomiting MD complaint: seizure Related Data Home Medications ?Medication ?Instructions ?Recorded ?Confirmed sertraline 100 mg tablet 100 mg PO BEDTIME 12/03/24 1 11/01/24 ipratropium 0.5 mg-albuterol 3 mg 3 ml inhalation LISANDRO Y 04/09/25 08/31/25 (2.5 mg base)/3 mL nebulization soln albuterol 90 mcg-budesonide [address] N dyspnea 05/11/25 08/31/25 mcg/actuation HFA aerosol inhaler (Airsupra) empagliflozin 10 mg tablet 10 mg PO DAILY 05/11/25 (Jardiance) hydroxyzine HCl 50 mg tablet 50 mg PO BEDTIME insomnia 05/11/25 08/31/25 lacosamide 200 mg tablet 200 mg PO BID 05/11/2508/31 lansoprazole 30 mg capsule,delayed 30 mg PO DAILY@0630 05/11/25 08/31/25 release sodium chloride 0.9 % for 3 ml inhalation Q4H PRN whee zing 05/11/25 08/31/25 nebulization clobazam 10 mg tablet 10 mg PO BID 05/29/25 atorvastatin 80 mg tablet 80 mg PO BEDTIME 08/31/25 carvedilol 6.25 mg tablet 6.25 mg PO BID 08/31/2508/17 diazepam 10 mg/spray (0.1 mL) 10 mg intranasal ONCE 08/31/25 nasal spray (Valtoco) prazosin 1 mg capsule 5 mg PO BEDTIME nightmares 1 11/01/24 08/31/25 Previous Rx's ?Medication ?Instructions ?Recorded Sharps container #1 ea 12/18/22 aspirin 81 mg tablet,delayed 81 mg PO DAILY 90 days #9 0 tabs 01/03/23 release montelukast 10 mg tablet 10 mg PO BEDTIME 90 days #90 tabs 03/12/24 Ventolin HFA 90 mcg/actuation 2 puff PO Q6H PRN for dy spnea #3 ea 12/29/24 aerosol inhaler (albuterol sulfate) cholecalciferol (vitamin D3) 50 100 mcg (2 x 50 mcg (2 ,000 unit)) 02/01/25 mcg (2,000 unit) capsule PO DAILY 90 days #180 caps metformin 500 mg tablet,extended 500 mg PO BEDTIME #90 tabs 02/08/25 release 24 hr Held on 07/13/25. Instructions: Doctor's Order blood sugar diagnostic (FreeStyle #100 ea 04/02/25 Lite Strips) blood-glucose meter (FreeStyle #1 ea 04/02/25 Lite Meter kit) lancets 28 gauge (FreeStyle #100 ea 04/02/25 Lancets) levothyroxine 200 mcg tablet 200 mcg PO DAILY@0600 #90 tabs 06/11/25 (Synthroid) nystatin 100,000 unit/mL oral 5 ml PO DAILY PRN thrush 30 days 07/12/25 suspension #200 mL Allergies Allergy/AdvReac Type Severity Reaction Status Date / Time cat dander (CATS) Allergy Mild GENERALIZED Verified 08/31/25 09:43 ALLERGY SYMPTOMS dog dander (DOGS) Allergy Mild GENERALIZED Verified 08/31/25 09:43 ALLERGY SYMPTOMS tree and shrub pollen (TREE) Allergy Mild GENERALIZED Verified 08/31/25 09:43 ALLERGY SYMPTOMS FROM PINE TREES Review of Systems 2 Review of Systems: Yes all other systems are reviewed and are negative [facility] Past Medical History Attestation statement: The following information was validated with the patient. Source: old records reviewed and nursing notes reviewed Medical History Seizure Seizure disorder Cardiomyopathy Uvulitis Takotsubo cardiomyopathy Schatzki's ring Gastritis Sleep apnea Diabetes Gastroparesis Migraine headache with aura Postoperative hypothyroidism Thyroid cancer Vitamin D deficiency Multinodular thyroid ABPA (allergic bronchopulmonary aspergillosis) Asthma Surgical History S/P total thyroidectomy History of esophagogastroduodenoscopy (EGD) S/P removal of thyroid nodule History of cholecystectomy Family History Family History Maternal Grandmother Emphysema, unspecified Father Diabetes Mother No problems noted. Paternal Grandfather Liver cancer Colon cancer Social History Social History Household Members: Family Housing: Apartment Are you a primary child care coordinator to a significant other at home: No Do you presently have visiting nurse or other home services: No Alcohol intake: never Comment: has poor balance Patient Tobacco Use Status: Never used Tobacco Tobacco use type: Cigarette Smoked in Last 30 Days: No e-Cigarette/Vaping Use: Never Used Second Hand Smoke Exposure: No Use of substances other than those prescribed or required for medical reasons: Yes Substance Use Type: Marijuana Advance Directives: No Advance Directives Information Provided: Yes Advance Directives Date on File: 05/20/23 Do you have a plan to hurt others: No Plan Nutrition Risks: No Nutritional Risk service: No Current occupational status: disabled Current occupation: rt handed Cognitive needs: No Hearing needs: No Vision needs: No Physical Exam ED Vital Signs: Vital Signs - 24 hr 08/31/25 09:42 08/31/25 10:07 Temperature 98.5 F 98.5 F Pulse Rate 89 73 Respiratory Rate 18 19 Blood Pressure 109/71 Pulse Oximetry 95 96 Oxygen Delivery Method Nasal Cannula Room Air BMI result Body Mass Index 24.0 GENERAL APPEARANCE: ?Patient was seizing in hospital stretcher upon initial observation HEENT: ?NC, AT. MMM. EOMI, clear conjunctiva, oropharynx clear. No identifiable laceration to tongue NECK: ?Supple without lymphadenopathy.? No stiffness or restricted ROM. HEART:? Normal rate and regular rhythm, normal S1/S2, no m/r/g LUNGS:? CTAB, moving air well. No crackles or wheezes are heard. ABDOMEN: ?Soft, nondistended, no rigidity, no guarding, mild diffuse tenderness to palpation BACK: No CVAT, no obvious deformity. EXTREMITIES: ?Without cyanosis, clubbing or edema. NEUROLOGICAL: ?Grossly nonfocal. Alert and oriented, moving all 4 extremities. Skin: ?Warm and dry without any rash. Medications Administered Generic Name Dose Route Start Last Admin Trade Name Freq PRN Reason Stop Dose Admin Heparin Sodium (Porcine) 5,000 unit 08/31/25 17:00 08/31/25 17:24 Heparin Sodium,Porcine 5,000 Unit/Ml Vial SUBCUT 5,000 unit Q12H FREDY Administration Lactated Ringer's 1,000 mls @ 80 mls/hr 08/31/25 17:00 08/31/25 17:31 Lr IVCONT 80 mls/hr .[id number] FREDY Administration Discontinued Medications Generic Name Dose Route Start Last Admin Trade Name Freq PRN Reason Stop Dose Admin Diazepam 2 mg 08/31/25 10:12 08/31/25 10:49 Diazepam 10 Mg/2 Ml Cartridge IM 08/31/25 10:13 2 mg STAT STA Administration Levetiracetam 1,500 mg in 100 mls @ 400 mls/hr 08/31/25 09:32 08/31/25 10:44 Keppra IV 08/31/25 09:46 Infused ONCE ONE Infusion Acetaminophen 1,000 mg in 100 mls @ 400 mls/hr 08/31/25 12:01 08/31/25 13:43 Ofirmev IV 08/31/25 12:15 Infused ONCE ONE Infusion Lactated Ringer's 1,000 mls @ 999 mls/hr 08/31/25 12:04 08/31/25 13:43 Lr IV 08/31/25 13:04 Infused .Q1H1M ONE Infusion Iohexol 100 ml 08/31/25 12:06 08/31/25 12:06 Iohexol 350 Mg/Ml 100 Ml Infus..Btl IV 08/31/25 12:07 85 ml ONCE ONE Administration Medical Decision Making Medical Decision Making [facility] Narrative: 44-year-old male with medical history of seizures, learning disability, takotsubo cardiomyopathy, NSTEMI, GERD, MDD, T2DM, asthma, gastroparesis, sleep apnea on CPAP, presents to ED via EMS due to tonic-clonic seizure activity witnessed by mother who went to check on him and found him on the floor of his bedroom with eyes wide, and mouth open and jerking movements of his limbs. Patient was in active tonic-clonic seizure when I went to evaluate him. Patient with tonic-clonic seizure activity and was medicated with 2 mg IM Valium, 1500 mg loading dose of Keppra, 1L fluids Labs significant for leukocytosis of 23.7, carbon dioxide of 8, lactic acid of 15.7, VBG with metabolic acidosis with pH of 7.1, with initial troponin 173, and 2nd troponin 318 with positive delta, EKG x2 without ischemic changes. Due to leukocytosis that I believed was too elevated to be from seizure like activity and WNL CXR, patient experiencing nausea, diarrhea and diffuse tendereness to palpation of the abdomen I ordered CT abdomen/pelvis for further evaluation. CT reveals intestinal thickening with possible Crohn's versus ulcerative colitis. I reached out to hospitalist Jennifer for admission to medicine for breakthrough seizure, lactic acidosis, and possible IBD who will admit for further evaluation. - repeat VBG reveals pH has improved to 7.3 after 1 L of fluid, bicarb has improved from 8-21, and lactic acid has improved from 15.7-2.8. Differential Diagnosis Differential Diagnoses: The differential diagnosis associated with the presentation includes ACS Tonic-clonic seizure Electrolyte abnormality Lactic acidosis Acute abdomen Admission/Observation Consideration of admission/observation: Escalation of care including admission/observation considered (Patient to be admitted to Medicine for further evaluation and management) Consult Healthcare Provider Management of the patient was discussed with: Hospitalist (Jennifer Dyer PA-C ) Lab Data [facility] Lab Attestation statement: I reviewed the patient's lab results. 08/31/25 09:46 08/31/25 15:46 Labs: Lab Results 08/31/25 08/31/25 08/31/25 Range/Units 09:29 09:46 11:16 WBC 23.7 H (4.8-10.8) X10*3/uL RBC 5.77 D (4.60-5.80) X10*6/uL Hgb 17.8 D (14.0-18.0) g/dl Hct 54.3 H D (42.0-52.0) % MCV 94.1 (80.0-98.0) fL MCH 30.8 (27.0-33.0) pg MCHC 32.8 (31.0-36.0) g/dl RDW 13.2 (11.0-16.0) % Plt Count 442 H D (160-400) X10*3/uL MPV 9.0 L (9.4-12.4) fL Immature Gran % (Auto) 0.9 H (0.0-0.4) % Neut % (Auto) 68.9 (45-73) % Lymph % (Auto) 20.0 (20-40) % [place] % (Auto) 8.1 (2-11) % Eos % (Auto) 1.6 (0-4) % Baso % (Auto) 0.5 (0-2) % Lymph # (Auto) 4.8 (1.2-4.9) X10*3/uL [place] # (Auto) 1.9 H (0.1-1.2) X10*3/uL Eos # (Auto) 0.4 (0.0-0.4) X10*3/uL Baso # (Auto) 0.1 (0.0-0.2) X10*3/uL Abs Immat Gran (auto) 0.22 H (0.00-0.03) X10*3/uL Absolute Neuts (auto) 16.3 H (2.0-8.3) x10*3/uL Absolute Nucleated RBC 0.000 (0.0-0.012) X10*3/uL Nucleated RBC % (auto) 0.0 (0.0-0.2) /100WBC Smear Tech's Comments VERIFIED ESR 11 (1-15) MM/HR VBG pH (7.32-7.43) VBG pCO2 mmHg VBG pO2 mmHg VBG HCO3 (22-26) mmol/L VBG O2 Saturation % VBG Base Excess mmol/L Sodium 142 (135-145) mmol/L Potassium 3.8 (3.3-5.1) mmol/L Chloride 112 H (96-108) mmol/L Carbon Dioxide 8 L* D (22-29) mmol/L Anion Gap 26 H (12-20) BUN 14 (9-16) mg/dL Creatinine 1.18 (0.5-1.4) mg/dL Estim Creat Clear Calc 76.4 Estimated GFR > 60 POC Glucose 131 H (60-115) mg/dL Random Glucose 152 H (60-115) mg/dL Lactic Acid 15.7 H* (0.5-2.0) mmol/L Lactic Acid F/U @ 2Hr (0.5-2.0) mmol/L Calcium 10.4 H D (8.4-10.2) mg/dL Magnesium 2.5 (1.6-2.6) mg/dL Total Bilirubin 0.3 (0.0-1.0) mg/dL AST 44 H (5-37) U/L ALT 40 (0-40) U/L Alkaline Phosphatase 88 (39-117) U/L Troponin I High Sens 173.0 H* D (<3.5-35.0) ng/L C-Reactive Protein 0.18 (< or = 0.50) mg/dL NT-Pro-B Natriuret Pep 163.9 (<300) pg/mL Total Protein 8.0 (6.5-8.0) g/dL Albumin 5.3 H (3.5-5.0) g/dL Beta-Hydroxybutyrate 0.05 (0.02-0.27) mmol/L Urine Color Urine Appearance Urine pH (5.0-9.0) Ur Specific [place] (1.005-1.025) Urine Protein (Neg-Trace) mg/dL Urine Glucose (UA) (Negative) mg/dL Urine Ketones (Negative) mg/dL Urine Blood (Negative) Urine Nitrite (Negative) Ur Leukocyte Esterase (Negative) Urine RBC (0-2) /HPF Urine WBC (0-5) /HPF Ur Squamous Epith Cells (0-2) /HPF Urine Bacteria (None Seen) Hyaline Casts (0-2) /LPF 08/31/25 08/31/25 08/31/25 Range/Units 11:22 12:37 13:45 WBC (4.8-10.8) X10*3/uL RBC (4.60-5.80) X10*6/uL Hgb (14.0-18.0) g/dl Hct (42.0-52.0) % MCV (80.0-98.0) fL MCH (27.0-33.0) pg MCHC (31.0-36.0) g/dl RDW (11.0-16.0) % Plt Count (160-400) X10*3/uL MPV (9.4-12.4) fL Immature Gran % (Auto) (0.0-0.4) % Neut % (Auto) (45-73) % Lymph % (Auto) (20-40) % [place] % (Auto) (2-11) % Eos % (Auto) (0-4) % Baso % (Auto) (0-2) % Lymph # (Auto) (1.2-4.9) X10*3/uL [place] # (Auto) (0.1-1.2) X10*3/uL Eos # (Auto) (0.0-0.4) X10*3/uL Baso # (Auto) (0.0-0.2) X10*3/uL Abs Immat Gran (auto) (0.00-0.03) X10*3/uL Absolute Neuts (auto) (2.0-8.3) x10*3/uL Absolute Nucleated RBC (0.0-0.012) X10*3/uL Nucleated RBC % (auto) (0.0-0.2) /100WBC Smear Tech's Comments ESR (1-15) MM/HR VBG pH 7.13 L* (7.32-7.43) VBG pCO2 60 mmHg VBG pO2 53 mmHg VBG HCO3 20 L (22-26) mmol/L VBG O2 Saturation 80.0 % VBG Base Excess -9.4 mmol/L Sodium (135-145) mmol/L Potassium (3.3-5.1) mmol/L Chloride (96-108) mmol/L Carbon Dioxide (22-29) mmol/L Anion Gap (12-20) BUN (9-16) mg/dL Creatinine (0.5-1.4) mg/dL Estim Creat Clear Calc Estimated GFR POC Glucose (60-115) mg/dL Random Glucose (60-115) mg/dL Lactic Acid (0.5-2.0) mmol/L Lactic Acid F/U @ 2Hr 2.8 H* (0.5-2.0) mmol/L Calcium (8.4-10.2) mg/dL Magnesium (1.6-2.6) mg/dL Total Bilirubin (0.0-1.0) mg/dL AST (5-37) U/L ALT (0-40) U/L Alkaline Phosphatase (39-117) U/L Troponin I High Sens 318.9 H* D (<3.5-35.0) ng/L C-Reactive Protein (< or = 0.50) mg/dL NT-Pro-B Natriuret Pep (<300) pg/mL Total Protein (6.5-8.0) g/dL Albumin (3.5-5.0) g/dL Beta-Hydroxybutyrate (0.02-0.27) mmol/L Urine Color Urine Appearance Urine pH (5.0-9.0) Ur Specific [place] (1.005-1.025) Urine Protein (Neg-Trace) mg/dL Urine Glucose (UA) (Negative) mg/dL Urine Ketones (Negative) mg/dL Urine Blood (Negative) Urine Nitrite (Negative) Ur Leukocyte Esterase (Negative) Urine RBC (0-2) /HPF Urine WBC (0-5) /HPF Ur Squamous Epith Cells (0-2) /HPF Urine Bacteria (None Seen) Hyaline Casts (0-2) /LPF 08/31/25 08/31/25 08/31/25 Range/Units 13:51 15:11 15:46 WBC (4.8-10.8) X10*3/uL RBC (4.60-5.80) X10*6/uL Hgb (14.0-18.0) g/dl Hct (42.0-52.0) % MCV (80.0-98.0) fL MCH (27.0-33.0) pg MCHC (31.0-36.0) g/dl RDW (11.0-16.0) % Plt Count (160-400) X10*3/uL MPV (9.4-12.4) fL Immature Gran % (Auto) (0.0-0.4) % Neut % (Auto) (45-73) % Lymph % (Auto) (20-40) % [place] % (Auto) (2-11) % Eos % (Auto) (0-4) % Baso % (Auto) (0-2) % Lymph # (Auto) (1.2-4.9) X10*3/uL [place] # (Auto) (0.1-1.2) X10*3/uL Eos # (Auto) (0.0-0.4) X10*3/uL Baso # (Auto) (0.0-0.2) X10*3/uL Abs Immat Gran (auto) (0.00-0.03) X10*3/uL Absolute Neuts (auto) (2.0-8.3) x10*3/uL Absolute Nucleated RBC (0.0-0.012) X10*3/uL Nucleated RBC % (auto) (0.0-0.2) /100WBC Smear Tech's Comments ESR (1-15) MM/HR VBG pH 7.30 L (7.32-7.43) VBG pCO2 40 mmHg VBG pO2 45 mmHg VBG HCO3 20 L (22-26) mmol/L VBG O2 Saturation 70.0 % VBG Base Excess -5.6 mmol/L Sodium 137 (135-145) mmol/L Potassium 4.5 (3.3-5.1) mmol/L Chloride 109 H (96-108) mmol/L Carbon Dioxide 21 L (22-29) mmol/L Anion Gap 12 (12-20) BUN 12 (9-16) mg/dL Creatinine 0.96 (0.5-1.4) mg/dL Estim Creat Clear Calc 94.0 Estimated GFR > 60 POC Glucose (60-115) mg/dL Random Glucose 93 (60-115) mg/dL Lactic Acid (0.5-2.0) mmol/L Lactic Acid F/U @ 2Hr (0.5-2.0) mmol/L Calcium 9.0 D (8.4-10.2) mg/dL Magnesium (1.6-2.6) mg/dL Total Bilirubin 0.4 (0.0-1.0) mg/dL AST 32 (5-37) U/L ALT 26 (0-40) U/L Alkaline Phosphatase 69 (39-117) U/L Troponin I High Sens (<3.5-35.0) ng/L C-Reactive Protein (< or = 0.50) mg/dL NT-Pro-B Natriuret Pep (<300) pg/mL Total Protein 6.3 L (6.5-8.0) g/dL Albumin 4.3 (3.5-5.0) g/dL Beta-Hydroxybutyrate (0.02-0.27) mmol/L Urine Color Yellow Urine Appearance Clear Urine pH 5.5 (5.0-9.0) Ur Specific [place] >= 1.030 H (1.005-1.025) Urine Protein 100 (2+) H (Neg-Trace) mg/dL Urine Glucose (UA) 250 H (Negative) mg/dL Urine Ketones Negative (Negative) mg/dL Urine Blood Small (1+) H (Negative) Urine Nitrite Negative (Negative) Ur Leukocyte Esterase Negative (Negative) Urine RBC 0-2 (0-2) /HPF Urine WBC 0-5 (0-5) /HPF Ur Squamous Epith Cells 0-2 (0-2) /HPF Urine Bacteria None Seen (None Seen) Hyaline Casts 0-2 (0-2) /LPF Independent Interpretation I performed an independent interpretation of an: EKG and CT Scan Interpretation: I personally interpreted the EKG which reveals normal sinus rhythm without ST- elevation/depression, ischemic changes, lengthened QT Vent. Rate : 71 BPM Atrial Rate : 71 BPM P-R Int : 160 ms QRS Dur : 94 ms QT Int : 412 ms P-R-T Axes : 35 0 29 degrees QTcB Int : 447 ms Normal sinus rhythm Normal ECG When compared with ECG of 11-May-2025 06:22, No significant change was found I personally interpreted the CT abdomen/pelvis which reveals intestinal thickening, I agree with the radiologist's interpretation Radiology Impression Discussion of test interpretation with radiology: I have reviewed the radiologist's reading. Radiologist Impression: CT abdomen and pelvis FINDINGS: LUNG BASES: No acute airspace disease or discrete pulmonary nodules. LIVER, GALLBLADDER, AND BILIARY TREE: The gland measures 17 cm. No enhancing mass. Portal veins and hepatic veins are patent. Intrahepatic portion of the IVC is patent. Status post cholecystectomy. No intrahepatic or extrahepatic biliary ductal dilatation. PANCREAS: No solid or cystic lesion. No peripancreatic fluid collection. No main pancreatic ductal dilatation. SPLEEN: 9 cm. No solid or cystic lesion. ADRENAL GLANDS: No nodular lesions. KIDNEYS AND URETERS: No hydronephrosis. No enhancing renal mass. No gross nephrolithiasis. Subcentimeter cyst, left kidney. No dilatation of the ureter. BLADDER: Fluid-filled. GASTROINTESTINAL TRACT: Appendix is normal. There are multiple segmental areas of intestinal wall thickening involving the small intestine with a gas and fluid-filled prominent jejunal loops. Intestinal wall thickening, terminal ileum. No intestinal obstruction pattern. No pneumatosis intestinalis. No pneumoperitoneum. No ascites. No gross diverticulum. Probable intestinal wall thickening and the left hemicolon. ABDOMINAL WALL: Small fat-containing umbilical hernia. LYMPH NODES: Nonspecific prominent mesenteric lymph nodes. VASCULAR: Mixed plaques in the lower distal abdominal aorta wall and iliac arteries without aneurysm or dissection. PELVIC VISCERA: Not enlarged. OSSEOUS STRUCTURES: Mild S-shaped curvature of the thoracolumbar spine. Mild multilevel thoracolumbar spondylosis. No acute fracture or listhesis. Bony pelvis is intact. Coxofemoral joints are intact. Gynecomastia, bilaterally. CT/CT abdomen pelvis w IV con IMPRESSION: Concerning acute inflammatory bowel disease. Crohn's disease versus ulcerative colitis, should be considered in the correct clinical settings. Small fat-containing umbilical hernia. Gynecomastia, bilaterally. This could be seen in drug toxicity, cannabis among other etiologies.. Fleischner guidelines were followed. Electronically signed by: Jose Hudson MD 08/31/2025 12:30 PM [facility] [place] Dictated By: Jose Hess MD Signed By: <Electronically signed by Jose Lawrence MD in OV> 08/31/25 1230 Independent Historian Clinical information obtained from an independent historian. History obtained from or confirmed by: Parent (Mother at bedside corroborating history) External Record Review External record reviewed: Inpatient record, Office record, Outpatient record, Prior outpatient labs and Prior outpatient radiology Chronic Conditions Patient?s care impacted by: Diabetes and Other (Takotsubo cardiomyopathy, NSTEMI, GERD, MDD, asthma, gastroparesis, MEHNAZ on CPAP) Social Determinants Patient?s care significantly limited by Social Determinants of Health including: Other Social Determinant of Health Discharge Plan Discharge Clinical Impression: Breakthrough seizure, Lactic acidosis, Abdominal pain Patient Disposition: Left Against Medical Advice Discharge Date/Time: 08/31/25 20:14
[2025-08-31 09:42] VITALS: PULSE 89; RESP 18; TEMP 36.9; O2SAT 95; BMI 24.0
[2025-08-31 09:53] LABS: Hematocrit 54.3 % (42.0-52.0); Hemoglobin 17.8 g/dl (14.0-18.0); Imm Gran Abs Auto 0.22 X10*3/uL (0.00-0.03); Imm Gran Pct Auto 0.9 % (0.0-0.4); Lymphocytes Absolute Auto 4.8 X10*3/uL (1.2-4.9); MANUAL DIFF FLAG SCAN; Mean Corpuscular HGB Conc 32.8 g/dl (31.0-36.0); Mean Corpuscular Hemoglobin 30.8 pg (27.0-33.0); Mean Corpuscular Volume 94.1 fL (80.0-98.0); NRBC Abs Auto 0.000 X10*3/uL (0.0-0.012); NRBC Pct Auto 0.0 /100WBC (0.0-0.2); Platelet Count 442 X10*3/uL (160-400); Red Blood Count 5.77 X10*6/uL (4.60-5.80); SCAN SMEAR FLAG 1; White Blood Count 23.7 X10*3/uL (4.8-10.8)
[2025-08-31 09:56] LABS: Glucose, Whole Blood 131 mg/dL (60-115)
[2025-08-31] MEDS: levETIRAcetam in NaCl (iso-os) 1,500 MG/100 ML PIGGYBACK 400 MG IV (10:05)
[2025-08-31 10:07] VITALS: BP 109/71; PULSE 73; RESP 19; TEMP 36.9; O2SAT 96
--- NOTE | 2025-08-31 10:08 | PC.NURSE ---
Patient presented to ED c/o N/V/D with some seizure activity noted by family Patient actively seizure on arrival to ED 2mg versed given per provider Patient post ictal at this time IV 20G Right forearm Patient placed on O2 2L 97% 19RR, titrated to RA 96% 19RR Blood collected /sent on procurement specialist NSR Mom at bedside Plan of care on going
[2025-08-31 10:19] LABS: Alanine Aminotransferase 40 U/L (0-40); Albumin Level 5.3 g/dL (3.5-5.0); Alkaline Phosphatase 88 U/L (39-117); Anion Gap 26 (12-20); Aspartate Amino Transferase 44 U/L (5-37); Blood Urea Nitrogen 14 mg/dL (9-16); Calcium 10.4 mg/dL (8.4-10.2); Carbon Dioxide 8 mmol/L (22-29); Chloride 112 mmol/L (96-108); Creatinine Clr Calc Pharmacy 76.4; Estimated Glomerular Filt Rate > 60; Magnesium 2.5 mg/dL (1.6-2.6); Potassium 3.8 mmol/L (3.3-5.1); Sodium 142 mmol/L (135-145); Total Protein 8.0 g/dL (6.5-8.0)
[2025-08-31 10:20] LABS: Troponin-I High Sensitivity 173.0 ng/L (<3.5-35.0)
[2025-08-31] MEDS: diazePAM 10 MG/2 ML CARTRIDGE 2 MG IM (10:49)
[2025-08-31 11:20] LABS: NT Pro B Type Natriuretic Pept 163.9 pg/mL (<300)
[2025-08-31 11:25] LABS: VBG HCO3 20 mmol/L (22-26); VBG O2 % Saturation 80.0 %
[2025-08-31 11:26] LABS: Venous Blood Gas Refer to POC result
[2025-08-31 11:50] LABS: Reflex Lactate? Lactic Acid Added
[2025-08-31] MEDS: iohexoL 350 MG/ML 100 ML INFUS..BTL IV (12:06)
[2025-08-31] MEDS: Lactated Ringers 1,000 ML 999 ML IV (12:35)
--- NOTE | 2025-08-31 12:40 | PC.NURSE ---
Patient hard stick to collect blood Multiple attempts tried but different staff Phlebotomy notified to see if they can draw patient, awaiting response
[2025-08-31 13:12] LABS: Troponin-I High Sensitivity 318.9 ng/L (<3.5-35.0)
--- NOTE | 2025-08-31 13:12 | ECG_ITS ---
Test Reason : TROP Blood Pressure : */* mmHG Vent. Rate : 71 BPM Atrial Rate : 71 BPM P-R Int : 160 ms QRS Dur : 94 ms QT Int : 412 ms P-R-T Axes : 35 0 29 degrees QTcB Int : 447 ms Normal sinus rhythm Normal ECG When compared with ECG of 11-May-2025 06:22, No significant change was found Referred By: Stephy Vo Electronically Signed By: Serge Marroquin
[2025-08-31 13:54] LABS: Venous Blood Gas Refer to POC result
--- NOTE | 2025-08-31 13:55 | ECG_ITS ---
Test Reason : repeat needed Blood Pressure : */* mmHG Vent. Rate : 65 BPM Atrial Rate : 65 BPM P-R Int : 154 ms QRS Dur : 96 ms QT Int : 418 ms P-R-T Axes : 9 4 31 degrees QTcB Int : 434 ms Normal sinus rhythm Normal ECG When compared with ECG of 31-Aug-2025 13:12, No significant change was found Referred By: Stephy Vo Electronically Signed By: Serge Marroquin
[2025-08-31 13:56] LABS: VBG HCO3 20 mmol/L (22-26); VBG O2 % Saturation 70.0 %
[2025-08-31 14:17] LABS: ~Lactic Acid-LAB USE ONLY 2.8 mmol/L (0.5-2.0)
[2025-08-31 15:19] LABS: Appearance Urine Clear; Glucose Urine UA 250 mg/dL (Negative); PH 5.5 (5.0-9.0); Specific Gravity - Urine >= 1.030 (1.005-1.025); UMIC TRIGGER UACC YES
[2025-08-31 15:34] LABS: Cancel Lactic Acid Canceled
[2025-08-31 16:12] LABS: Alanine Aminotransferase 26 U/L (0-40); Albumin Level 4.3 g/dL (3.5-5.0); Alkaline Phosphatase 69 U/L (39-117); Aspartate Amino Transferase 32 U/L (5-37); Blood Urea Nitrogen 12 mg/dL (9-16); Creatinine Clr Calc Pharmacy 94.0; Estimated Glomerular Filt Rate > 60; Total Protein 6.3 g/dL (6.5-8.0)
[2025-08-31 16:17] LABS: Anion Gap 12 (12-20); Calcium 9.0 mg/dL (8.4-10.2); Carbon Dioxide 21 mmol/L (22-29); Chloride 109 mmol/L (96-108); Potassium 4.5 mmol/L (3.3-5.1); Sodium 137 mmol/L (135-145)
--- NOTE | 2025-08-31 16:34 | PM.IMHP ---
History of Present Illness Date of Service: 08/31/25 Chief Complaint: Seizure 44 year old man with a history of seizure disorder presenting to the ED with a breakthrough seizure. He reported that he woke up having a seizure this morning and had episode of diarrhea and vomiting. He denied any recent changes including medications, recent illness, recent travel, sick contacts. His last breakthrough seizure was not April and prior to that was in [place] when [place] [facility] [place] In [place], he was noted to have an elevated WBC, lactic acidosis as well but resolved with IV fluids. Troponin was also noted to be elevated with no chest pain or ischemic changes noted on EKG. He was loaded with keppra, given valium and IV fluids in the ED. He will be admitted for management of seizure and question of IBD. Review of Systems Review of Systems: Denies any recent fever chills or decrease in appetite respiratory denies any shortness of breath or cough cardiovascular denied chest pain gastrointestinal denies any dysphagia abdominal pain nausea vomiting or diarrhea genitourinary denies any dysuria frequency or hematuria musculoskeletal denies any joint pain or swelling neuropsych denies any weakness or seizures all other systems reviewed are negative [facility] Medical History (Updated 08/31/25 @ 18:14 by Melania Hurtado NP) Seizure Seizure disorder Cardiomyopathy Uvulitis Takotsubo cardiomyopathy Schatzki's ring Gastritis Sleep apnea Diabetes Gastroparesis Migraine headache with aura Postoperative hypothyroidism Thyroid cancer Vitamin D deficiency Multinodular thyroid ABPA (allergic bronchopulmonary aspergillosis) Asthma Family History Maternal Grandmother Emphysema, unspecified Father Diabetes Mother No problems noted. Paternal Grandfather Liver cancer Colon cancer Surgical History S/P total thyroidectomy History of esophagogastroduodenoscopy (EGD) S/P removal of thyroid nodule History of cholecystectomy Social History Household Members: Family Housing: Apartment Are you a primary medicare specialist to a significant other at home: No Do you presently have visiting nurse or other home services: No Alcohol intake: never Comment: has poor balance Patient Tobacco Use Status: Never used Tobacco Tobacco use type: Cigarette Smoked in Last 30 Days: No e-Cigarette/Vaping Use: Never Used Second Hand Smoke Exposure: No Use of substances other than those prescribed or required for medical reasons: Yes Substance Use Type: Marijuana Advance Directives: No Advance Directives Information Provided: Yes Advance Directives Date on File: 05/20/23 Do you have a plan to hurt others: No Plan Nutrition Risks: No Nutritional Risk service: No Current occupational status: disabled Current occupation: rt handed Cognitive needs: No Hearing needs: No Vision needs: No Meds Allergies Allergy/AdvReac Type Severity Reaction Status Date / Time cat dander (CATS) Allergy Mild GENERALIZED Verified 08/31/25 09:43 ALLERGY SYMPTOMS dog dander (DOGS) Allergy Mild GENERALIZED Verified 08/31/25 09:43 ALLERGY SYMPTOMS tree and shrub pollen (TREE) Allergy Mild GENERALIZED Verified 08/31/25 09:43 ALLERGY SYMPTOMS FROM PINE TREES Home Medications ?Medication ?Instructions ?Recorded ?Confirmed ?Last Taken ?Type sertraline 100 mg tablet 100 mg PO BEDTIME 12/03/24 07/13/25 12/02/24 History ipratropium 0.5 mg-albuterol 3 mg 3 ml inhalation DAILY 04/09/25 07/13/25 Unknown History (2.5 mg base)/3 mL nebulization soln albuterol 90 mcg-budesonide 80 2 inh inhalation TID PRN dyspnea 05/11/25 07/13/25 Unknown History mcg/actuation HFA aerosol inhaler (Airsupra) empagliflozin 10 mg tablet 10 mg PO DAILY 05/11/25 07/13/25 Unknown History (Jardiance) hydroxyzine HCl 50 mg tablet 50 mg PO BEDTIME insomnia 05/11/25 07/13/25 Unknown History lacosamide 200 mg tablet 200 mg PO BID 05/11/25 07/13/25 Unknown History lansoprazole 30 mg capsule,delayed 30 mg PO DAILY@0630 05/11/25 07/13/25 Unknown History release oxcarbazepine 300 mg tablet 300 mg PO BID 05/11/25 07/13/25 Unknown History sodium chloride 0.9 % for 3 ml inhalation NEEDED PRN 05/11/25 07/13/25 Unknown History nebulization wheezing clobazam 10 mg tablet 10 mg PO BID 05/29/25 07/13/25 Unknown History Physical Exam Vital Signs and Narrative: Vital Signs: Last Vital Signs Temp 98.5 F 08/31/25 10:07 Pulse 73 08/31/25 10:07 Resp 19 08/31/25 10:07 BP 109/71 08/31/25 10:07 Pulse Ox 96 08/31/25 10:07 O2 Del Method Room Air 08/31/25 10:07 BMI result Body Mass Index 24.0 Appearing in no acute distress head is normocephalic atraumatic eyes pupils are PERRLA sclera is anicteric mouth throat mucous membranes are intact and moist neck is supple no lymphadenopathy, no JVD noted lung sounds are clear to auscultation heart regular rate rhythm, clear S1, S2 positive bowel sounds, abdomen is soft, nontender neuro patient is alert x3, no focal deficits Results Labs 08/31/25 09:46 08/31/25 15:46 Labs: Laboratory Results - last 24 hr 08/31/25 08/31/25 08/31/25 09:29 09:46 11:16 MCV 94.1 MCH 30.8 MCHC 32.8 RDW 13.2 Plt Count 442 H D MPV 9.0 L Immature Gran % (Auto) 0.9 H Neut % (Auto) 68.9 Lymph % (Auto) 20.0 Howard % (Auto) 8.1 Eos % (Auto) 1.6 Baso % (Auto) 0.5 Lymph # (Auto) 4.8 [place] # (Auto) 1.9 H Eos # (Auto) 0.4 Baso # (Auto) 0.1 Abs Immat Gran (auto) 0.22 H Absolute Neuts (auto) 16.3 H Absolute Nucleated RBC 0.000 Nucleated RBC % (auto) 0.0 Smear Tech's Comments VERIFIED ESR 11 VBG pH VBG pCO2 VBG pO2 VBG HCO3 VBG O2 Saturation VBG Base Excess Anion Gap 26 H Estim Creat Clear Calc 76.4 Estimated GFR > 60 POC Glucose 131 H Random Glucose 152 H Lactic Acid 15.7 H* Lactic Acid F/U @ 2Hr Calcium 10.4 H D Magnesium 2.5 Total Bilirubin 0.3 AST 44 H ALT 40 Alkaline Phosphatase 88 Troponin I High Sens 173.0 H* D C-Reactive Protein 0.18 NT-Pro-B Natriuret Pep 163.9 Total Protein 8.0 Albumin 5.3 H Beta-Hydroxybutyrate 0.05 Urine Color Urine Appearance Urine pH Ur Specific [place] Urine Protein Urine Glucose (UA) Urine Ketones Urine Blood Urine Nitrite Ur Leukocyte Esterase Urine RBC Urine WBC Ur Squamous Epith Cells Urine Bacteria Hyaline Casts 08/31/25 08/31/25 08/31/25 11:22 12:37 13:45 MCV MCH MCHC RDW Plt Count MPV Immature Gran % (Auto) Neut % (Auto) Lymph % (Auto) [place] % (Auto) Eos % (Auto) Baso % (Auto) Lymph # (Auto) [place] # (Auto) Eos # (Auto) Baso # (Auto) Abs Immat Gran (auto) Absolute Neuts (auto) Absolute Nucleated RBC Nucleated RBC % (auto) Smear Tech's Comments ESR VBG pH 7.13 L* VBG pCO2 60 VBG pO2 53 VBG HCO3 20 L VBG O2 Saturation 80.0 VBG Base Excess -9.4 Anion Gap Estim Creat Clear Calc Estimated GFR POC Glucose Random Glucose Lactic Acid Lactic Acid F/U @ 2Hr 2.8 H* Calcium Magnesium Total Bilirubin AST ALT Alkaline Phosphatase Troponin I High Sens 318.9 H* D C-Reactive Protein NT-Pro-B Natriuret Pep Total Protein Albumin Beta-Hydroxybutyrate Urine Color Urine Appearance Urine pH Ur Specific [place] Urine Protein Urine Glucose (UA) Urine Ketones Urine Blood Urine Nitrite Ur Leukocyte Esterase Urine RBC Urine WBC Ur Squamous Epith Cells Urine Bacteria Hyaline Casts 08/31/25 08/31/25 08/31/25 13:51 15:11 15:46 MCV MCH MCHC RDW Plt Count MPV Immature Gran % (Auto) Neut % (Auto) Lymph % (Auto) [place] % (Auto) Eos % (Auto) Baso % (Auto) Lymph # (Auto) [place] # (Auto) Eos # (Auto) Baso # (Auto) Abs Immat Gran (auto) Absolute Neuts (auto) Absolute Nucleated RBC Nucleated RBC % (auto) Smear Tech's Comments ESR VBG pH 7.30 L VBG pCO2 40 VBG pO2 45 VBG HCO3 20 L VBG O2 Saturation 70.0 VBG Base Excess -5.6 Anion Gap 12 Estim Creat Clear Calc 94.0 Estimated GFR > 60 POC Glucose Random Glucose 93 Lactic Acid Lactic Acid F/U @ 2Hr Calcium 9.0 D Magnesium Total Bilirubin 0.4 AST 32 ALT 26 Alkaline Phosphatase 69 Troponin I High Sens C-Reactive Protein NT-Pro-B Natriuret Pep Total Protein 6.3 L Albumin 4.3 Beta-Hydroxybutyrate Urine Color Yellow Urine Appearance Clear Urine pH 5.5 Ur Specific [place] >= 1.030 H Urine Protein 100 (2+) H Urine Glucose (UA) 250 H Urine Ketones Negative Urine Blood Small (1+) H Urine Nitrite Negative Ur Leukocyte Esterase Negative Urine RBC 0-2 Urine WBC 0-5 Ur Squamous Epith Cells 0-2 Urine Bacteria None Seen Hyaline Casts 0-2 Imaging Radiologist's Impressions: Impressions Chest X-Ray 08/31/25 10:01 IMPRESSION: No acute airspace disease. Electronically signed by: Jose Hudson MD 08/31/2025 10:08 AM EST RP Abdomen/Pelvis CT 08/31/25 12:00 IMPRESSION: Concerning acute inflammatory bowel disease. Crohn's disease versus ulcerative colitis, should be considered in the correct clinical settings. Small fat-containing umbilical hernia. Gynecomastia, bilaterally. This could be seen in drug toxicity, cannabis among other etiologies.. Fleischner guidelines were followed. Electronically signed by: Jose Hudson MD 08/31/2025 12:30 PM EST RP Assessment and Plan (1) Seizure: Status: Inactive Plan 44 year old man admitted after a breakthrough seizure Breakthrough seizure On multiple antiepileptics Loaded on Keppra History of breakthrough tonic-clonic seizures Denies any recent illness, sick contacts, new medications Neurology consultation Seizure precautions Possible IBD nausea and diarrhea CT scan showing possible IBD crohns vs UC GI consultation check stool studies Leukocytosis UA and CXR negative no signs of infection Lactic acidosis 15.7 to 2.8 secondary to seizure disorder resolved after IV fluids Elevated troponin likely demand from seizure Diabetes mellitus 2 ss, ada diet DVT prophylaxis with heparin Full code Quality Stroke Does the patient have a stroke diagnosis?: No VTE Prior VTE?: No VTE Risk Level:: Medical - moderate - high VTE Device Contraindication: Treatment Not Indicated VTE Drug Contraindication: N/A - Med Ordered
[2025-08-31 17:22] VITALS: BP 136/87; PULSE 66; RESP 16; TEMP 36.9; O2SAT 97
[2025-08-31] MEDS: Lactated Ringers 1,000 ML 80 ML IVCONT (17:31)
[2025-08-31 18:28] VITALS: BP 136/87; PULSE 66; RESP 16; TEMP 36.9; O2SAT 97
--- NOTE | 2025-08-31 19:15 | PHA.MEDREC ---
Pharmacy Consult ? Medication Reconciliation Pharmacy has completed the medication reconciliation. Spoke with patient at bedside, he was able to confirm his medications.
--- NOTE | 2025-08-31 19:45 | PC.NURSE ---
Assumed care of pt, pt states that he want to leave AMA, pt stated that he does not want to stay, Dr. Kapadia came to speak with pt, he still want to leave, Pt understands the risks of leaving, Pt is aaox4, nad, father is at bedside
--- NOTE | 2025-08-31 19:54 | PM.DS ---
DS: Providers Provider Date of admission: 08/31/25 16:49 Date of discharge: 08/31/25 Primary care physician: Saúl Maier PA-C Consults: 08/31/25 16:49 Consult to Neurology Routine Consulting Provider: [facility] Reason for consultation: breakthrough seizure 08/31/25 16:57 Consult to Gastroenterology Routine Consulting Provider: [facility] [place] [facility] Reason for consultation: ? ibd DS: Diagnosis Discharge Diagnosis (1) Seizure: Status: Inactive DS: Summary Hospital Course Hospital Course: Patient admitted for seizures, abdominal discomfort. Patient mentioned that he has gone through this before. Does not want to stay in the hospital. Explained the patient about the risks involved in leaving against medical advice. Patient verbalized that he understood the risks and wanted to leave the hospital. Time Attestation Discharge Coordination Time (in mins): I recommended close follow-up with the PCP and Neurology. Quality: Safe Use of Opioids Does Pt have an Active Cancer Diagnosis on the Problem List?: No Quality: Stroke Does the patient have a stroke diagnosis?: No Physical Exam Vital Signs: Vital Signs: Last Vital Signs Temp 98.5 F 08/31/25 18:28 Pulse 66 08/31/25 18:28 Resp 16 08/31/25 18:28 BP 136/87 08/31/25 18:28 Pulse Ox 97 08/31/25 18:28 O2 Del Method Room Air 08/31/25 18:28 BMI result Body Mass Index 24.0 DS: Data Data Completed and Pending Labs on day of discharge: Laboratory Results - last 24 hr 08/31/25 08/31/25 08/31/25 09:29 09:46 11:16 WBC 23.7 H RBC 5.77 D Hgb 17.8 D Hct 54.3 H D MCV 94.1 MCH 30.8 MCHC 32.8 RDW 13.2 Plt Count 442 H D MPV 9.0 L Immature Gran % (Auto) 0.9 H Neut % (Auto) 68.9 Lymph % (Auto) 20.0 [place] % (Auto) 8.1 Eos % (Auto) 1.6 Baso % (Auto) 0.5 Lymph # (Auto) 4.8 [place] # (Auto) 1.9 H Eos # (Auto) 0.4 Baso # (Auto) 0.1 Abs Immat Gran (auto) 0.22 H Absolute Neuts (auto) 16.3 H Absolute Nucleated RBC 0.000 Nucleated RBC % (auto) 0.0 Smear Tech's Comments VERIFIED ESR 11 VBG pH VBG pCO2 VBG pO2 VBG HCO3 VBG O2 Saturation VBG Base Excess Sodium 142 Potassium 3.8 Chloride 112 H Carbon Dioxide 8 L* D Anion Gap 26 H BUN 14 Creatinine 1.18 Estim Creat Clear Calc 76.4 Estimated GFR > 60 POC Glucose 131 H Random Glucose 152 H Lactic Acid 15.7 H* Lactic Acid F/U @ 2Hr Calcium 10.4 H D Magnesium 2.5 Total Bilirubin 0.3 AST 44 H ALT 40 Alkaline Phosphatase 88 Troponin I High Sens 173.0 H* D C-Reactive Protein 0.18 NT-Pro-B Natriuret Pep 163.9 Total Protein 8.0 Albumin 5.3 H Beta-Hydroxybutyrate 0.05 Urine Color Urine Appearance Urine pH Ur Specific [place] Urine Protein Urine Glucose (UA) Urine Ketones Urine Blood Urine Nitrite Ur Leukocyte Esterase Urine RBC Urine WBC Ur Squamous Epith Cells Urine Bacteria Hyaline Casts 08/31/25 08/31/25 08/31/25 11:22 12:37 13:45 WBC RBC Hgb Hct MCV MCH MCHC RDW Plt Count MPV Immature Gran % (Auto) Neut % (Auto) Lymph % (Auto) [place] % (Auto) Eos % (Auto) Baso % (Auto) Lymph # (Auto) [place] # (Auto) Eos # (Auto) Baso # (Auto) Abs Immat Gran (auto) Absolute Neuts (auto) Absolute Nucleated RBC Nucleated RBC % (auto) Smear Tech's Comments ESR VBG pH 7.13 L* VBG pCO2 60 VBG pO2 53 VBG HCO3 20 L VBG O2 Saturation 80.0 VBG Base Excess -9.4 Sodium Potassium Chloride Carbon Dioxide Anion Gap BUN Creatinine Estim Creat Clear Calc Estimated GFR POC Glucose Random Glucose Lactic Acid Lactic Acid F/U @ 2Hr 2.8 H* Calcium Magnesium Total Bilirubin AST ALT Alkaline Phosphatase Troponin I High Sens 318.9 H* D C-Reactive Protein NT-Pro-B Natriuret Pep Total Protein Albumin Beta-Hydroxybutyrate Urine Color Urine Appearance Urine pH Ur Specific [place] Urine Protein Urine Glucose (UA) Urine Ketones Urine Blood Urine Nitrite Ur Leukocyte Esterase Urine RBC Urine WBC Ur Squamous Epith Cells Urine Bacteria Hyaline Casts 1208/31/25 08/31/25 13:51 15:11 15:46 WBC RBC Hgb Hct MCV MCH MCHC RDW Plt Count MPV Immature Gran % (Auto) Neut % (Auto) Lymph % (Auto) [place] % (Auto) Eos % (Auto) Baso % (Auto) Lymph # (Auto) [place] # (Auto) Eos # (Auto) Baso # (Auto) Abs Immat Gran (auto) Absolute Neuts (auto) Absolute Nucleated RBC Nucleated RBC % (auto) Smear Tech's Comments ESR VBG pH 7.30 L VBG pCO2 40 VBG pO2 45 VBG HCO3 20 L VBG O2 Saturation 70.0 VBG Base Excess -5.6 Sodium 137 Potassium 4.5 Chloride 109 H Carbon Dioxide 21 L Anion Gap 12 BUN 12 Creatinine 0.96 Estim Creat Clear Calc 94.0 Estimated GFR > 60 POC Glucose Random Glucose 93 Lactic Acid Lactic Acid F/U @ 2Hr Calcium 9.0 D Magnesium Total Bilirubin 0.4 AST 32 ALT 26 Alkaline Phosphatase 69 Troponin I High Sens C-Reactive Protein NT-Pro-B Natriuret Pep Total Protein 6.3 L Albumin 4.3 Beta-Hydroxybutyrate Urine Color Yellow Urine Appearance Clear Urine pH 5.5 Ur Specific [place] >= 1.030 H Urine Protein 100 (2+) H Urine Glucose (UA) 250 H Urine Ketones Negative Urine Blood Small (1+) H Urine Nitrite Negative Ur Leukocyte Esterase Negative Urine RBC 0-2 Urine WBC 0-5 Ur Squamous Epith Cells 0-2 Urine Bacteria None Seen Hyaline Casts 0-2 08/31/25 17:06 WBC RBC Hgb Hct MCV MCH MCHC RDW Plt Count MPV Immature Gran % (Auto) Neut % (Auto) Lymph % (Auto) [place] % (Auto) Eos % (Auto) Baso % (Auto) Lymph # (Auto) [place] # (Auto) Eos # (Auto) Baso # (Auto) Abs Immat Gran (auto) Absolute Neuts (auto) Absolute Nucleated RBC Nucleated RBC % (auto) Smear Tech's Comments ESR VBG pH VBG pCO2 VBG pO2 VBG HCO3 VBG O2 Saturation VBG Base Excess Sodium Potassium Chloride Carbon Dioxide Anion Gap BUN Creatinine Estim Creat Clear Calc Estimated GFR POC Glucose Random Glucose Lactic Acid Lactic Acid F/U @ 2Hr Calcium Magnesium Total Bilirubin AST ALT Alkaline Phosphatase Troponin I High Sens 599.6 H* D C-Reactive Protein NT-Pro-B Natriuret Pep Total Protein Albumin Beta-Hydroxybutyrate Urine Color Urine Appearance Urine pH Ur Specific [place] Urine Protein Urine Glucose (UA) Urine Ketones Urine Blood Urine Nitrite Ur Leukocyte Esterase Urine RBC Urine WBC Ur Squamous Epith Cells Urine Bacteria Hyaline Casts Discharge Plan Discharge Anticipated Discharge Date/Time: 08/31/25 19:52 Patient Disposition: Left Against Medical Advice Discharge Diagnosis: seizure Referrals: Saúl Maier PA-C [Primary Care Provider, Internal Medicine] - 1 Week Discharge Medications: No Action (DME) Sharps container See Rx Instructions .Route .MEDSUPPLY Qty: 1 0RF Rx Instructions: As directed aspirin 81 mg tablet,delayed release (DR/EC) 81 mg PO DAILY 90 Days Qty: 90 2RF albuterol sulfate [Ventolin HFA] 90 mcg/actuation HFA aerosol inhaler 2 puff PO Q6H PRN (Reason: for dyspnea) Qty: 3 6RF cholecalciferol (vitamin D3) 50 mcg (2,000 unit) capsule 100 mcg PO DAILY 90 Days Qty: 180 2RF metformin 500 mg tablet extended release 24 hr 500 mg PO BEDTIME Qty: 90 2RF (DME) FreeStyle Lite Strips Strip See Rx Instructions .Route Qty: 100 0RF Rx Instructions: As directed- daily (DME) blood-glucose meter [FreeStyle Lite Meter] Kit See Rx Instructions .Route Qty: 1 0RF Rx Instructions: As directed- once daily (DME) lancets [FreeStyle Lancets] 28 gauge misc See Rx Instructions .Route Qty: 100 0RF Rx Instructions: As directed- daily nystatin 100,000 unit/mL suspension 5 ml PO DAILY PRN (Reason: thrush) 30 Days Qty: 200 6RF Rx Instructions: administer 1/2 of dose in each side of the mouth. SWISH AND SPIT sertraline 100 mg tablet 100 mg PO BEDTIME sodium chloride 0.9 % solution for nebulization 3 ml inhalation Q4H PRN (Reason: wheezing) lacosamide 200 mg tablet 200 mg PO BID Jardiance 10 mg tablet 10 mg PO DAILY Airsupra 90-80 mcg/actuation HFA aerosol inhaler 2 inh INHALATION TID PRN (Reason: dyspnea) hydroxyzine HCl 50 mg tablet 50 mg PO BEDTIME lansoprazole 30 mg capsule,delayed release(DR/EC) 30 mg PO DAILY@0630 atorvastatin 80 mg tablet 80 mg PO BEDTIME carvedilol 6.25 mg tablet 6.25 mg PO BID prazosin 1 mg capsule 5 mg PO BEDTIME Valtoco 10 mg/spray (0.1 mL) spray,non-aerosol 10 mg intranasal ONCE montelukast 10 mg tablet 10 mg PO BEDTIME 90 Days Qty: 90 2RF ipratropium-albuterol 0.5 mg-3 mg(2.5 mg base)/3 mL solution for nebulization 3 ml inhalation DAILY levothyroxine [Synthroid] 200 mcg tablet 200 mcg PO DAILY@0600 Qty: 90 3RF clobazam 10 mg tablet 10 mg PO BID Rx Instructions: Takes 10 mg in the AM and 15 mg in the PM Discharge Orders: Discharge Order (Routine); Ordered 08/31/25 Ordered By: Robbie Kapadia Print Language: Citizen [place] Care Plan Goals: Patient left AMA Health Concerns: Seizures: Abdominal discomfort Plan of Treatment: Recommended follow-up with the PCP and Neurology and to continue taking his home medications Assessment: Patient left AMA. Reported that he understood the risks and still wanted to leave against medical advice. Does not want to stay in the hospital. Patient is strongly urged to follow with Neurology and PCP in a week.
--- NOTE | 2025-08-31 20:09 | PC.NURSE ---
PT signed AMA form, pt aware
--- NOTE | 2025-08-31 20:12 | PC.NURSE ---
PT signed AMA form, pt aaox4, nad, pt aware of the risks for going home and benefits of staying in the hospital, pt left with father, ambulated with a steady to the ED entrance
--- NOTE | 2025-08-31 22:20 | PM.DS ---
DS: Providers Provider Date of admission: 08/31/25 16:49 Date of discharge: 08/31/25 Primary care physician: Saúl Maier PA-C Consults: 08/31/25 16:49 Consult to Neurology Routine Consulting Provider: [facility] Reason for consultation: breakthrough seizure 08/31/25 16:57 Consult to Gastroenterology Routine Consulting Provider[place] [facility] Reason for consultation: ? ibd DS: Summary Hospital Course Hospital Course: Patient admitted for seizures, abdominal discomfort. Patient mentioned that he has gone through this before. Does not want to stay in the hospital. Explained the patient about the risks involved in leaving against medical advice. Patient verbalized that he understood the risks and wanted to leave the hospital. Physical Exam Vital Signs: Vital Signs: Last Vital Signs Temp 98.5 F 08/31/25 18:28 Pulse 66 08/31/25 18:28 Resp 16 08/31/25 18:28 BP 136/87 08/31/25 18:28 Pulse Ox 97 08/31/25 18:28 O2 Del Method Room Air 08/31/25 18:28 BMI result Body Mass Index 24.0 DS: Data Data Completed and Pending Labs on day of discharge: Laboratory Results - last 24 hr 08/31/25 08/31/25 08/31/25 09:29 09:46 11:16 WBC 23.7 H RBC 5.77 D Hgb 17.8 D Hct 54.3 H D MCV 94.1 MCH 30.8 MCHC 32.8 RDW 13.2 Plt Count 442 H D MPV 9.0 L Immature Gran % (Auto) 0.9 H Neut % (Auto) 68.9 Lymph % (Auto) 20.0 Gonzales % (Auto) 8.1 Eos % (Auto) 1.6 Baso % (Auto) 0.5 Lymph # (Auto) 4.8 Gonzales # (Auto) 1.9 H Eos # (Auto) 0.4 Baso # (Auto) 0.1 Abs Immat Gran (auto) 0.22 H Absolute Neuts (auto) 16.3 H Absolute Nucleated RBC 0.000 Nucleated RBC % (auto) 0.0 Smear Tech's Comments VERIFIED ESR 11 VBG pH VBG pCO2 VBG pO2 VBG HCO3 VBG O2 Saturation VBG Base Excess Sodium 142 Potassium 3.8 Chloride 112 H Carbon Dioxide 8 L* D Anion Gap 26 H BUN 14 Creatinine 1.18 Estim Creat Clear Calc 76.4 Estimated GFR > 60 POC Glucose 131 H Random Glucose 152 H Lactic Acid 15.7 H* Lactic Acid F/U @ 2Hr Calcium 10.4 H D Magnesium 2.5 Total Bilirubin 0.3 AST 44 H ALT 40 Alkaline Phosphatase 88 Troponin I High Sens 173.0 H* D C-Reactive Protein 0.18 NT-Pro-B Natriuret Pep 163.9 Total Protein 8.0 Albumin 5.3 H Beta-Hydroxybutyrate 0.05 Urine Color Urine Appearance Urine pH Ur Specific Bethel Urine Protein Urine Glucose (UA) Urine Ketones Urine Blood Urine Nitrite Ur Leukocyte Esterase Urine RBC Urine WBC Ur Squamous Epith Cells Urine Bacteria Hyaline Casts 08/31/25 08/31/25 08/31/25 11:22 12:37 13:45 WBC RBC Hgb Hct MCV MCH MCHC RDW Plt Count MPV Immature Gran % (Auto) Neut % (Auto) Lymph % (Auto) Gonzales % (Auto) Eos % (Auto) Baso % (Auto) Lymph # (Auto) Gonzales # (Auto) Eos # (Auto) Baso # (Auto) Abs Immat Gran (auto) Absolute Neuts (auto) Absolute Nucleated RBC Nucleated RBC % (auto) Smear Tech's Comments ESR VBG pH 7.13 L* VBG pCO2 60 VBG pO2 53 VBG HCO3 20 L VBG O2 Saturation 80.0 VBG Base Excess -9.4 Sodium Potassium Chloride Carbon Dioxide Anion Gap BUN Creatinine Estim Creat Clear Calc Estimated GFR POC Glucose Random Glucose Lactic Acid Lactic Acid F/U @ 2Hr 2.8 H* Calcium Magnesium Total Bilirubin AST ALT Alkaline Phosphatase Troponin I High Sens 318.9 H* D C-Reactive Protein NT-Pro-B Natriuret Pep Total Protein Albumin Beta-Hydroxybutyrate Urine Color Urine Appearance Urine pH Ur Specific [place] Urine Protein Urine Glucose (UA) Urine Ketones Urine Blood Urine Nitrite Ur Leukocyte Esterase Urine RBC Urine WBC Ur Squamous Epith Cells Urine Bacteria Hyaline Casts 08/31/25 08/31/25 08/31/25 13:51 15:11 15:46 WBC RBC Hgb Hct MCV MCH MCHC RDW Plt Count MPV Immature Gran % (Auto) Neut % (Auto) Lymph % (Auto) Gonzales % (Auto) Eos % (Auto) Baso % (Auto) Lymph # (Auto) Gonzales # (Auto) Eos # (Auto) Baso # (Auto) Abs Immat Gran (auto) Absolute Neuts (auto) Absolute Nucleated RBC Nucleated RBC % (auto) Smear Tech's Comments ESR VBG pH 7.30 L VBG pCO2 40 VBG pO2 45 VBG HCO3 20 L VBG O2 Saturation 70.0 VBG Base Excess -5.6 Sodium 137 Potassium 4.5 Chloride 109 H Carbon Dioxide 21 L Anion Gap 12 BUN 12 Creatinine 0.96 Estim Creat Clear Calc 94.0 Estimated GFR > 60 POC Glucose Random Glucose 93 Lactic Acid Lactic Acid F/U @ 2Hr Calcium 9.0 D Magnesium Total Bilirubin 0.4 AST 32 ALT 26 Alkaline Phosphatase 69 Troponin I High Sens C-Reactive Protein NT-Pro-B Natriuret Pep Total Protein 6.3 L Albumin 4.3 Beta-Hydroxybutyrate Urine Color Yellow Urine Appearance Clear Urine pH 5.5 Ur Specific [place]hel >= 1.030 H Urine Protein 100 (2+) H Urine Glucose (UA) 250 H Urine Ketones Negative Urine Blood Small (1+) H Urine Nitrite Negative Ur Leukocyte Esterase Negative Urine RBC 0-2 Urine WBC 0-5 Ur Squamous Epith Cells 0-2 Urine Bacteria None Seen Hyaline Casts 0-2 08/31/25 17:06 WBC RBC Hgb Hct MCV MCH MCHC RDW Plt Count MPV Immature Gran % (Auto) Neut % (Auto) Lymph % (Auto) Gonzales % (Auto) Eos % (Auto) Baso % (Auto) Lymph # (Auto) Gonzales # (Auto) Eos # (Auto) Baso # (Auto) Abs Immat Gran (auto) Absolute Neuts (auto) Absolute Nucleated RBC Nucleated RBC % (auto) Smear Tech's Comments ESR VBG pH VBG pCO2 VBG pO2 VBG HCO3 VBG O2 Saturation VBG Base Excess Sodium Potassium Chloride Carbon Dioxide Anion Gap BUN Creatinine Estim Creat Clear Calc Estimated GFR POC Glucose Random Glucose Lactic Acid Lactic Acid F/U @ 2Hr Calcium Magnesium Total Bilirubin AST ALT Alkaline Phosphatase Troponin I High Sens 599.6 H* D C-Reactive Protein NT-Pro-B Natriuret Pep Total Protein Albumin Beta-Hydroxybutyrate Urine Color Urine Appearance Urine pH Ur Specific [place] Urine Protein Urine Glucose (UA) Urine Ketones Urine Blood Urine Nitrite Ur Leukocyte Esterase Urine RBC Urine WBC Ur Squamous Epith Cells Urine Bacteria Hyaline Casts Discharge Plan Discharge Anticipated Discharge Date/Time: 08/31/25 19:52 Patient Disposition: Left Against Medical Advice Discharge Diagnosis: seizure Referrals: Saúl Maier PA-C [Primary Care Provider, Internal Medicine] - 1 Week Discharge Medications: No Action (DME) Sharps container See Rx Instructions .Route .MEDSUPPLY Qty: 1 0RF Rx Instructions: As directed aspirin 81 mg tablet,delayed release (DR/EC) 81 mg PO DAILY 90 Days Qty: 90 2RF albuterol sulfate [Ventolin HFA] 90 mcg/actuation HFA aerosol inhaler 2 puff PO Q6H PRN (Reason: for dyspnea) Qty: 3 6RF cholecalciferol (vitamin D3) 50 mcg (2,000 unit) capsule 100 mcg PO DAILY 90 Days Qty: 180 2RF metformin 500 mg tablet extended release 24 hr 500 mg PO BEDTIME Qty: 90 2RF (DME) FreeStyle Lite Strips Strip See Rx Instructions .Route Qty: 100 0RF Rx Instructions: As directed- daily (DME) blood-glucose meter [FreeStyle Lite Meter] Kit See Rx Instructions .Route Qty: 1 0RF Rx Instructions: As directed- once daily (DME) lancets [FreeStyle Lancets] 28 gauge misc See Rx Instructions .Route Qty: 100 0RF Rx Instructions: As directed- daily nystatin 100,000 unit/mL suspension 5 ml PO DAILY PRN (Reason: thrush) 30 Days Qty: 200 6RF Rx Instructions: administer 1/2 of dose in each side of the mouth. SWISH AND SPIT sertraline 100 mg tablet 100 mg PO BEDTIME sodium chloride 0.9 % solution for nebulization 3 ml inhalation Q4H PRN (Reason: wheezing) lacosamide 200 mg tablet 200 mg PO BID Jardiance 10 mg tablet 10 mg PO DAILY Airsupra 90-80 mcg/actuation HFA aerosol inhaler 2 inh INHALATION TID PRN (Reason: dyspnea) hydroxyzine HCl 50 mg tablet 50 mg PO BEDTIME lansoprazole 30 mg capsule,delayed release(DR/EC) 30 mg PO DAILY@0630 atorvastatin 80 mg tablet 80 mg PO BEDTIME carvedilol 6.25 mg tablet 6.25 mg PO BID prazosin 1 mg capsule 5 mg PO BEDTIME Valtoco 10 mg/spray (0.1 mL) spray,non-aerosol 10 mg intranasal ONCE montelukast 10 mg tablet 10 mg PO BEDTIME 90 Days Qty: 90 2RF ipratropium-albuterol 0.5 mg-3 mg(2.5 mg base)/3 mL solution for nebulization 3 ml inhalation DAILY levothyroxine [Synthroid] 200 mcg tablet 200 mcg PO DAILY@0600 Qty: 90 3RF clobazam 10 mg tablet 10 mg PO BID Rx Instructions: Takes 10 mg in the AM and 15 mg in the PM Discharge Orders: Discharge Order (Routine); Ordered 08/31/25 Ordered By: Robbie Kapadia Print Language: Setswana Care Plan Goals: Patient left AMA Health Concerns: Seizures: Abdominal discomfort Plan of Treatment: Recommended follow-up with the PCP and Neurology and to continue taking his home medications Assessment: Patient left AMA. Reported that he understood the risks and still wanted to leave against medical advice. Does not want to stay in the hospital. Patient is strongly urged to follow with Neurology and PCP in a week. Discharge Date/Time: 08/31/25 20:30
[2025-09-01 11:20] LABS: Troponin-I High Sensitivity 599.6 ng/L (<3.5-35.0)
== END 2025-08-31 20:30 | disposition left against medical advice (07) | DRG 53 ==
LOC: HO.ED 10:59 → HO.EDOVER 16:57 → HO.S3 19:47 → HO.EDOVER 19:48
PROVIDERS: Student in an Organized Health Care Education/Training Program; Admitting Provider Nurse Practitioner Acute Care; Emergency Provider Student in an Organized Health Care Education/Training Program; PCP Physician Assistant; Visit Provider Nurse Practitioner Acute Care
DX: G40.909 Epilepsy, unspecified, not intractable, without status epilepticus (principal); E87.0 Hyperosmolality and hypernatremia; E11.9 Type 2 diabetes mellitus without complications; K52.3 Indeterminate colitis; Z79.82 Long term (current) use of aspirin; Z79.890 Hormone replacement therapy; Z79.84 Long term (current) use of oral hypoglycemic drugs; Z79.899 Other long term (current) drug therapy
CPT/HCPCS: 36415; 71046; 74177; 80053; 81001; 82010; 82803; 82947; 83605; 83735; 83880; 84484; 85025; 85652; 86140; 93005; 99285; J0131; J1644; J1953; J3360; J7120; Q9967

== ENCOUNTER → 2025-08-31 09:31 | Outpatient (BNV) | payer OTHER, SELFPAY | PROVIDERS: Emergency Provider Student in an Organized Health Care Education/Training Program; PCP Physician Assistant; Visit Provider Radiology Diagnostic Radiology | DX: D72.829 Elevated white blood cell count, unspecified (principal); K42.9 Umbilical hernia without obstruction or gangrene; N62 Hypertrophy of breast; R56.9 Unspecified convulsions | CPT/HCPCS: 71046; 74177 ==

== ENCOUNTER → 2025-08-31 13:12 | Outpatient (BNV) | payer OTHER, SELFPAY | PROVIDERS: Emergency Provider Student in an Organized Health Care Education/Training Program; PCP Physician Assistant; Visit Provider Internal Medicine Cardiovascular Disease | DX: R56.9 Unspecified convulsions (principal); Z13.6 Encounter for screening for cardiovascular disorders | CPT/HCPCS: 93010 ==

== ENCOUNTER → 2025-08-31 16:49 | Outpatient (BNV) | payer OTHER, SELFPAY | PROVIDERS: Admitting Provider Nurse Practitioner Acute Care; Emergency Provider Student in an Organized Health Care Education/Training Program; PCP Physician Assistant; Visit Provider Hospitalist | DX: R56.9 Unspecified convulsions (principal) | CPT/HCPCS: 99499 ==

== ENCOUNTER 2025-09-04 15:20 | Outpatient (AMB) | payer OTHER, SELFPAY ==
--- NOTE | 2025-09-04 15:52 | MHC.PC.OV ---
Vital Signs 09/04/25 15:53 Height 5 ft 8 in Weight 152 lb 6 oz BMI 23.2 BP 120/62 Blood Pressure Location Lt brachial Position Sitting Pulse 54 Pulse Source Pulse Oximeter Temp 97.1 F Temp Source Temporal Artery Scan Pulse Oximetry (%) 96 Oxygen Delivery Method Room Air Intake Visit Reasons: [facility] [place] 08/31 BREAKTHROUGH SEIZURE Intake Note: Patient is here to follow-up after a visit the emergency department at [facility] [place] on 08/31/25 Programs Assistant Required: No Ship'S Engineer: Not Required per policy Accompanied by: Self / Same As Patient Allergies cat dander (CATS) Allergy (Mild, Verified 09/04/25 15:53) GENERALIZED ALLERGY SYMPTOMS dog dander (DOGS) Allergy (Mild, Verified 09/04/25 15:53) GENERALIZED ALLERGY SYMPTOMS tree and shrub pollen (TREE) Allergy (Mild, Verified 09/04/25 15:53) GENERALIZED ALLERGY SYMPTOMS FROM PINE TREES Tobacco use date assessed: 09/04/25 Dental Screening Dental Screen Date: 07/13/25 HPI HPI Comments History of Present Illness Details 44-year-old male presents to the clinic today for EDF. PMH significant for seizure disorder, learning disability, Takotsubo cardiomyopathy, NSTEMI, GERD, MDD, T2DM, asthma, gastroparesis, and obstructive sleep apnea on CPAP. Patient was evaluated at [facility] [place] on 08/31 for witnessed tonic-clonic seizure activity. Per patient?s mother, she found him on the floor of his bedroom with eyes wide open, mouth open, and jerking movements of all extremities. Patient reports preceding symptoms of nausea and several episodes of watery diarrhea, which he states are typical prodromal symptoms prior to his seizures. Patient reports compliance with all prescribed seizure medications and denies any missed doses. Denies alcohol or illicit drug use. During ED evaluation, patient also reported abdominal pain. CT abdomen revealed intestinal wall thickening with concern for possible Crohn?s disease versus ulcerative colitis. Hospital admission was recommended for further evaluation of breakthrough seizures, lactic acidosis, and possible inflammatory bowel disease. Patient declined admission and left against medical advice, stating he had experienced similar episodes in the past and did not feel hospitalization would be beneficial. Risks of leaving AMA were discussed in detail at that time, and patient verbalized understanding. Today, patient reports feeling well with no recurrent seizures since ED discharge. He continues to take his seizure medications as prescribed and follows with [facility] [place] Neurology. He plans to schedule a neurology follow-up appointment next week. Denies current abdominal pain, nausea, diarrhea, chest pain, shortness of breath, dizziness, or other acute concerns. [facility] Medical History Seizure Seizure disorder Cardiomyopathy Uvulitis Takotsubo cardiomyopathy Schatzki's ring Gastritis Sleep apnea Diabetes Gastroparesis Migraine headache with aura Postoperative hypothyroidism Thyroid cancer Vitamin D deficiency Multinodular thyroid ABPA (allergic bronchopulmonary aspergillosis) Asthma Surgical History S/P total thyroidectomy History of esophagogastroduodenoscopy (EGD) S/P removal of thyroid nodule History of cholecystectomy Family History Maternal Grandmother Emphysema, unspecified Father Diabetes Mother No problems noted. Paternal Grandfather Liver cancer Colon cancer Social History Household Members: Family Housing: Apartment Are you a primary customer care associate to a significant other at home: No Do you presently have visiting nurse or other home services: No Alcohol intake: never Comment: has poor balance Patient Tobacco Use Status: Never used Tobacco Tobacco use type: Cigarette e-Cigarette/Vaping Use: Never Used Second Hand Smoke Exposure: No Substance Use Type: Marijuana Advance Directives Date on File: 05/20/23 service: No Current occupational status: disabled Current occupation: rt handed Cognitive needs: No Hearing needs: No Vision needs: No Questionnaire Thrive Questionnaire Date Thrive assessed: 10/01/24 I am a: Patient What is your living situation today?: I have a place to live, but I am worried about losing it in the future Within the past 12 months, did the food you bought not last and you didn't have the money to get more?: Sometimes True Within the past 12 months, did you worry whether your food would run out before you got money to buy more?: Sometimes True Do you have trouble paying for medicines?: No Do you have trouble getting transportation to medical appointments?: Yes Do you have trouble paying your heating and electricity bill?: Yes Do you have trouble taking care of your child, family member or friend?: No Do you have trouble with day-to-day activities such as bathing, preparing meals, shopping, managing finances, etc.?: Yes Are you currently unemployed and looking for a job?: Yes Are you interested in more education?: No Currently or been in a relationship where the following occur: I choose not to answer THRIVE Score: 5 MOOSE-7 AMB Questionnaire MOOSE-7 Date MOOSE - 7 assessed: 10/01/24 Source: Developed by Drs. Ramses Nguyen, Debi Russ, Colin Rowell and colleagues, with an educational javy from [employer]. Physical exam (Primary Care) Vital Signs: Last Vital Signs Temp 97.1 F 09/04/25 15:53 Pulse 54 09/04/25 15:53 BP 120/62 09/04/25 15:53 Pulse Ox 96 09/04/25 15:53 Oxygen Delivery Method Room Air 09/04/25 15:53 BMI result Body Mass Index 23.2 Tobacco/Smoking Status: Tobacco use Status Tobacco use date assessed 09/04/25 09/04/25 15:57 Patient Tobacco Use Status Never used Tobacco 09/04/25 15:53 Tobacco use type Cigarette 09/04/25 15:53 e-Cigarette/Vaping Use Never Used 09/04/25 15:53 Thrive Assessment: Date of Thrive Assessment Date Thrive assessed 10/01/24 09/04/25 15:53 Currently or been in a relationship where the following occur: I choose not to answer Const General: no acute distress Nutritional Appearance: well nourished Orientation/consciousness: patient oriented x3 Limitations: no limitations HENMT Head: Yes normocephalic Eyes Pupils: Equal, round and reactive pupils present Resp Effort & Inspection: normal respiratory effort Cardio Rate: regular rate Neuro Other: No focal deficits noted, no seizure activity reported since ED visit. General: patient oriented x3, gait normal and moves all extremities Cranial nerves: Yes Equal, round and reactive pupils present Psych Speech and movement: Normal speech and movement present Coding Level of Care Code Est Pt Level 4 (30092) Diagnoses Breakthrough seizure G40.919 Time Spent (min) 20 Assessment & Plan Assessment & Plan (1) Breakthrough seizure: Code(s): G40.919 - Epilepsy, unspecified, intractable, without status epilepticus Category: Medical Plan: Seizure disorder ? Recent breakthrough tonic-clonic seizure; currently stable with no recurrence since ED discharge. Possible inflammatory bowel disease ? CT showing intestinal thickening concerning for Crohn?s vs ulcerative colitis. Denies any further abdnominal symptoms since discharged. Continue current antiepileptic medications as prescribed. Emphasized strict medication compliance. Patient to schedule follow-up with [facility] [place]rology next week. Reviewed seizure precautions and return precautions. Advised GI follow-up for further evaluation of CT findings Educated patient on warning signs: worsening abdominal pain, persistent diarrhea, blood in stool, fever.
[2025-09-04 15:53] VITALS: BP 120/62; PULSE 54; TEMP 36.2; O2SAT 96; BMI 23.2
--- OUTSIDE RECORDS SUMMARY | 2025-09-04 16:29 | XMS_ITS | Data Portability ---
Author Organization [place] - [facility], Allergy Address [address] [address] Care Team Providers Care Hair Worker Name Role Phone NOHEMI THORNE Primary Care [...] and Address Organization Details Recorded Time Asthma [id number] Active 2016 JOHN KYLE MD 100 [facility] [employer],[facility] [address], [place], [address] , [place] [facility] 12:50:26 Gastroeso phageal reflux disease 083499463 Active 2016 JOHN KYLE MD [address] [place],[address], [place], [place], [address] , [place] - [facility] 5 12:50:26 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 74503620206 751623 Active 2016 JOHN KYLE MD 100 [facility] [place], [place], [address] , [place] [facility] 5 12:50:26 Obstructi ve sleep apnea syndrome 57654396 Active 2016 JOHN KYLE MD 100 [facility] [place], [place], [place], [address] , [place] - [facility] 5 12:50:26 Allergic rhinitis 22323928 Active 2016 JOHN KYLE MD 100 [facility] [place] [address], [place], [address] , [place] [facility] 5 12:50:26 Chronic obstructi ve pulmonary disease 83298199 Active 2017 JOHN KYLE MD 100 [employer] [employer],[place] [address], [place], [address] , [place] [facility] 5 12:50:26 Stomatiti s 12003975 Active 2022 Oral thrush; Note: Date Diagnosed : 06/19/2023 10:39 AM (B37.0) Not Available [facility] 4 03:21:21 Candidias is of mouth 81679988 Active 2022 Oral thrush; Note: Date Diagnosed : 06/19/2023 10:39 AM (B37.0) Not Available [facility] 4 03:21:21 Sensorine ural hearing loss 85338993 Active 2022 Sensorine ural hearing loss, unilatera l, right ear, with unrestric tran hearing on the contralat eral side; Note: Date Diagnosed : 06/19/2023 10:45 AM (H90.41) Not Available [facility] 4 03:21:21 Dysphagia 55196287 Active 2022 Dysphagia , unspecifi ed; Note: Date Diagnosed : 06/19/2023 10:39 AM (R13.10) Not Available [facility] 4 03:21:21 Uncomplic ated moderate persisten t asthma 808040217 Active 2024 JOHN KYLE MD [address] [place] [address], [facility] [place] [facility] [place], [address] , [facility] 5 11:14:01 Problem Notes None recorded. Procedures Surgical History Date Name Laterality Status Provider Name and Address Organization Details Recorded Time 02/16/2025 FOL_DP completed JOHN KYLE MD [address] [place] [address], [place], [address], [facility] [place] [facility] 02/06/2025 13:02:33 Imaging Results None recorded. Procedure Notes None recorded. Medical Equipment None Reported. Allergies Allergen ID Allergen Name Allergen Category Reaction Reaction Severity Criticality Documentation Date Start Date Code Code System Note Provider Name and Address Organization Details Recorded Time 672905 Canis lupus familiari s extract environme nt Not available Not available Not available 01/29/20242024 74572 4 RxNorm JOHN KYLE MD [address] [place] [address], [place], [address], [facility] [place] [facility] 5 12:50:15 641205 cat dander environme nt other Not available Not available 01/29/2024 React ion: Unkno wn; Not Available [facility] 4 01:25:23 Medications Name Sig Start Date Stop Date Status Note LastModified by Organization Details LastModified Time atorvasta tin 40 mg tablet TAKE 1 TABLET BY MOUTH AT BEDTIME 02/16 completed Not Available Not Available Not Available levothyro xine 175 mcg tablet active Medicati on ID: [id number] B rand Name: levothyr oxine Se nd [...] tablet,de layed release active Medicati on ID: 164620 B rand Name: divalpro ex Send Method: [...] Address Organization Details Last Updated DateTime 02/16/2025 26541.19 g 27.3 kg/m2 162.56 cm [facility] [...] ICD10 Code Diagnosis IMO Codes Diagnosis Note [id number] JOHN KYLE MD [facility] [address] [address] 02/16/2025 10:25:23 02/16/2025 11:20:02 Uncomplicated moderate persistent asthma 580990454 J45.40 5534669 Health Concerns Section Related Observation LastModified by Organization Detai ls LastModified Time None Recorded Concern Status LastModified by Organization Details LastModified Time None Recorded Advance Directives Directive None Recorded Payers Insurance Date Sequence Insurance Name Policy Number Policy Tao Covered Member ID Tao Member ID Guarantor Name 02/13/2025 1 [place] [facility] [facility] (MEDICAID) Terrance Carranza [id number] Terrance Carranza 02/16/2025 1 [facility] (MEDICAID HMO) [place] Terrance Carranza [id number] Terrance Carranza Notes Date Note Type Note [...] history of hospitalization for stridor or prolonged [id number] total thyroidectomy, on replacement Synthroid12/04/2022 [facility], [place], modified barium swallowSpeech pathology report not availableUGI noted esophageal rings.Past medical history seizures, cardiomyopathy JOHN KYLE MD [address] [place] [address],[place] [address], [place], [address], [place] [facility] 02/16/2025 11:16:55
--- OUTSIDE RECORDS SUMMARY | 2025-09-04 16:29 | XMS_ITS | Clinical Summary ---
Author Organization [facility] 299 [facility] Address [address] [place] [address] Phone Care Team Providers Care Kitchen And Counter Worker Name Role Phone Saúl Maier Primary Care [...] swallow 4 (four) times a day. Active sodium chloride 0.9 % nebulizer solution Take 3 mL by nebulization if needed for wheezing. 90 mL 6 5 04/21/20 26 Active ipratropium-alb uteroL (DUONEB) 0.5-2.5 mg/3 mL nebulizer solutionIndicat ions:Severe asthma, unspecified whether complicated, unspecified whether persistent TAKE 3 ML BY NEBULIZATION 1 (ONE) TIME EACH DAY. 180 mL 5 06/18/20 26 Active Active Problems Problem Noted Date Diagnosed Date COPD (chronic obstructive pulmonary disease) Allergic rhinitis 07/14/2017 Asthma-chronic obstructive p ulmonary disease overlap syndrome 04/16/2017 Obstructive sleep apnea syndrome 04/16/2017 Asthma 12/08/2016 Gastroesophageal reflux disease 12/08/2016 Medical History Medical History Date Comments Allergic rhinitis 07/14/2017 DX:Allergic rh initis Asthma 12/08/2016 DX:Asthma Asthma-chronic obstructive p ulmonary disease overlap syndrome ([facility] V24, [facility] V28) 04/16/2017 DX:Asthma-chronic obstructiv e pulmonary disease overlap syndrome ([facility]) Gastroesophageal reflux disease 12/08/2016 DX:Gastroesophageal reflux disease Obstructive sleep apnea syndrome 04/16/2017 DX:Obstructive sleep apnea syndrome COPD (chronic obstructive pu lmonary disease) ([facility] V24, [facility] V28) 10/03/2017 DX:COPD (chronic o bstructive pulmonary disease) ([facility]) Social History Tobacco Use Types Packs/Day Years [...] Health Maintenance Due Date Last Done Comments Colorectal Cancer Screening: Colonoscopy 1979 COVID-19 Vaccine (#1) 11/18/1984 Hepatitis B Vaccines (1 of 3 - 19+ 3-dose series) 11/18/1998 HPV Vaccines (1 - Risk 3-dose SCDM series) 11/18/2006 Pneumococcal Vaccine: Pediatrics (0 to 5 Years) and At-Risk Patients (6 to 49 Years) (3 of 3 - PCV) 11/24/2019 11/23/2018, 08/22/2018 Cholesterol Screening (Lipid Panel) 08/07/2024 HIV Screening 08/07/2024 Hepatitis C Screening 08/07/2024 Social Influencers of Health Screening 08/07/2024 Depression Screening 09/17/2024 Influenza Vaccine (#1) 2025 , 09/12/2023, 08/01/2021, Additional history exists Hypertension/CHF/CAD Annual BMP Blood Test 02/23/2026 02/23/2025 DTaP,Tdap,and Td Vaccines (2 - Td or Tdap) 08/07/2027 08/07/2017 RSV Immunization Adult Patients (1 - 1-dose 75+ series) 11/18/2054 HIB Vaccines Aged Out No longer eligi [...] mmol/L LAB CHEMISTRY METHOD 02/23/2025 6:02 PM [facility] Potassium 3.9 3.5 - 5.5 mmol/L LAB CHEMISTRY METHOD 02/23/2025 6:02 PM [facility] Chloride 104 96 - 110 mmol/L LAB CHEMISTRY METHOD 02/23/2025 6:02 PM [facility] CO2 26 21 - 32 mmol/L LAB CHEMISTRY METHOD 02/23/2025 6:02 PM [facility] Anion Gap 8 3 - 11 LAB CHEMISTRY METHOD 02/23/2025 6:02 PM [facility] Glucose 127(H) 70 - 100 mg/dL LAB CHEMISTRY METHOD 02/23/2025 6:02 PM [facility] BUN 13 5 - 25 mg/dL LAB CHEMISTRY METHOD 02/23/2025 6:02 PM [facility] Creatinine 1.05 0.70 - 1.30 mg/dL LAB CHEMISTRY METHOD 02/23/2025 6:02 PM [facility] eGFR 89 >=60 mL/min/1. 73m2 LAB CHEMISTRY METHOD 02/23/2025 6:02 PM [facility] Comment:Calculation based on the Chronic Kidney Disease Epidemiology Collaboration (CKD-EPI) equation refit without adjustment for race. BUN/Creatinine Ratio 12.4 LAB CHEMISTRY METHOD 02/23/2025 6:02 PM [facility] Calcium 9.6 8.5 - 10.5 mg/dL LAB CHEMISTRY METHOD 02/23/2025 6:02 PM EDT [facility] Blood Venous blood specimen / Unknown Venipuncture / Unknown 02/23/2025 1:31 PM EDT 02/23/2025 2:03 PM EDT us Anabel Garvin MD LAB BLOOD ORDERABLES Final Result [facility] [address] [place] [address], from Last 3 Months or Most Recently Relevant to Health Maintenance Insurance [facility] Care Teams Kitchen And Counter Worker Relationship Specialty Start Date End Date Saúl Maier PA [address] [place] [address] PCP - General Physician Fleet Administrative Assistant 12/09/24
--- OUTSIDE RECORDS SUMMARY | 2025-09-04 16:29 | XMS_ITS | Encounter Summary ---
Author Organization [facility] Address [address] [place] [address] Care Team Providers Care Product Control And Logistics Analyst Name Role Phone Saúl Maier Primary Care Provider [phone] Reason for Visit * Reason Onset Date Comments Seizure 09/02/2025 Encounter Details Date Type Department Care Team (Late st Contact Info) Description 09/02/2025 Telephone [facility] [address] [place] [address] Telephone Intake, Staff Seizure Social History Tobacco Use Types Packs/Day Years Used Date Smoking Tobacco: Never Smokeless Tobacco: Never Alcohol Use Standard Drinks/Week Comments Never 0 (1 standard drink = 0.6 oz pur e alcohol) Sex and Gender Information Value Date Recorded Sex Assigned at Male 07/24/2025 12:37 PM EST Legal Sex Male 11:01 AM EST Gender Identity Not on file Sexual Orientation Not on file documented as of this encounter Miscellaneous Notes * Telephone Encounter - Shawna Rivera RN - 09/02/2025 12:01 PM EST Reporting seizure Neurologist?Dr Arredondo Witness? Yes first seizure no, but 2nd and 3rd seizure yes Did you have an Aura? No Can you or the witness describe the what happened? Pt stated he woke up on floor beside pt TB+ and incontinence. He remembers getting up walking into room where dad was and next thing in ambulance. Father told him he came in and in to a convulsive seizure, dad called 911. Pt stated having a third seizure in ED. Pt stated they did test said ASM level was WNL but going to admit. ED couldn't find him bed and left AMA. No medication changes. How long did it last, duration? Unknown, don't have records from [facility] What happened when it ended? Pt stated remembers walk into room where dad was and next in the ambulance. How long did it take to recover to your baseline/ awareness?unknown Are you back to your self/ baseline? Yes Describe how you feel now? At time confused and sleepy but believes to have recovered quickly Do you know what type? convulsion focal to bilateral tonic clonic (FBTC), generalized tonic-clonic (GTC) Prior seizures ? Yes when? April 2025 Triggers? Stress from waiting on disability approval. Sleep cycle split in two bu typical Any recent illness or infections? No, but ED found patient to have stomach inflammation no more information on that finding. Injury? Yes tongue bite Injury type bitten tongue ED? Yes Medication, reconciled with patient Yes AEDs LCM lacosamide (Vimpat): 200 mg BID CLB clobazam (Onfi): 10 mg AM/15 mg PM Medication admin? On time says mother double checks all the time without faill Med Reaction No see separate smart phrase Anything else about your seizure not mentioned above? Patient had neurologist in [place] but wants to continue management of ASM and care at [facility]. Pharmacy confirmed for next scripts. Best callback number and time: [phone] * Telephone Encounter - Scott Willard LPN - 09/02/2025 11:13 AM EST Left vm for patient to return call regarding recent seizure episodes reported. * Telephone Encounter - Bernarda Borja - 09/02/2025 9:16 AM EST NEURO TRIAGE CALL PATIENT: Terrance Carranza BEST CALL BACK PHONE NUMBER: [phone] PATIENT'S NEUROLOGIST: Dr. Arredondo REASON FOR CALL: Pt called in and lvm that he had a seizure over the weekend and went to [facility]. He said they had the details, but I don't see anything uploading into his care everywhere yet. He just wanted to inform Dr. Arredondo this occurred. UPCOMING APPOINTMENTS: Future Appointments Date Time Provider Department Center 05/11/2026 3:30 PM Gretta Arredondo MD [facility] Neuro [place] Message will be sent to [facility] NE[facility]Y [facility]URSING pool or appropriate nurse navigator Neurovascular/Stroke: Kellie Hassan RN Epilepsy/Seizure: Shawna Rivera RN Neuromuscular/Movement: Vi Gonzalez RN Cognitive: Chandan Boothe LPN documented in this encounter Plan of Treatment Upcoming Encounters Date Type Department Care Team (Late st Contact Info) Description 05/11/2026 3:30 PM EDT Office Visit [facility] [address] [place] [address] Gretta Arredondo MD [address] [place] [address] [place] [address] documented as of this encounter Visit Diagnoses Not on filedocumented in this encounter Care Teams Product Control And Logistics Analyst Relationship Specialty Start Date End Date Saúl Maier PA [address] [place] [id number] PCP - General 12/30/24 documented as of this encounter
--- OUTSIDE RECORDS SUMMARY | 2025-09-04 16:29 | XMS_ITS | Clinical Summary ---
Author Organization [facility] Facility Address [address] [address] Care Team Providers Care Military Source Operations Specialist Name Role Phone Saúl Maier Primary Care Provider [phone] Allergies No known active allergies Medications acetaminophen [...] Influenza Vaccine (#1) 2025 Insurance Care Teams Military Source Operations Specialist Relationship Specialty Start Date End Date Saúl Maier PA [address] [place] [address], [address] [place] [address] PCP - General Physician Enamel Finisher 01/30/22
--- OUTSIDE RECORDS SUMMARY | 2025-09-04 16:29 | XMS_ITS | Clinical Summary ---
Author Organization [facility] Address [address] [place] [address] Care Team Providers Care Slot Tag Inserter Name Role Phone Saúl Maier Primary Care Provider [phone] Allergies Active Allergy Reactions Criticality Noted Date Comments Cat Dander Anaphylaxis High 07/21/2025 cat dander Dog Dander Anaphylaxis High 10/16/2024 Tree And Shrub Pollen Anaphylaxis High 10/16/2024 Medications acetaminophen (TYLENOL) 650 mg 8 hr tablet Take 650 mg by mouth. Active albuterol 2.5 mg/3 mL (0.083%) nebulizer solution Active Ventolin HFA 90 mcg/actuation inhaler TAKE 2 PUFFS ORALLY EVERY 6 HOURS NEEDED FOR FOR DYSPNEA Active albuterol-budeso nide 90-80 mcg/actuation inhaler Inhale 2 puffs by mouth. 5 Active aspirin 81 mg EC tablet Take 81 mg by mouth. Active atorvastatin (LIPITOR) 80 mg tablet Take 80 mg by mouth at bed time. at bedtime 5 Active Freestyle Lite test strips SMARTSIG:Daily 5 Active FreeStyle Lite Meter meter SMARTSIG:Daily 5 Active budesonide-formo teroL (SYMBICORT) 160-4.5 mcg inhaler Inhale 2 puffs by mouth. Active calcium carbonate (TUMS) 200 mg calcium (500 mg) chewable tablet Chew and swallow 500 mg by mouth. Active carvediloL (COREG) 6.25 mg tablet Take 6.25 mg by mouth 2 times a day. 5 Active cholecalciferol (VITAMIN D3) 2,000 unit capsule TAKE 2 CAPSULES BY MOUTH EVERY DAY FOR 90 DAYS Active cloBAZam (ONFI) 10 mg tablet TAKE 1/2 TABLET 2 TIMES A DAY BY MOUTH 5 Active codeine-guaiFENe sin (CHERATUSSIN AC) 20-200 mg/10 mL liquid SMARTSI Milliliter(s) By Mouth Every 4-6 Hours PRN 4 Active Farxiga 10 mg Take 10 mg by mouth once a day. 5 Active Jardiance 10 mg SMARTSI Tablet(s) By Mouth Daily 5 Active fluticasone propionate (FLONASE) 50 mcg/actuation nasal spray Administer 2 sprays into affected nostril(s). Active hydrOXYzine (ATARAX) 50 mg tablet TAKE 1 TABLET DAILY AT BEDTIME FOR SLEEP/ANXIETY Active ipratropium-albu teroL (DUO-NEB) 0.5-2.5 mg/3 mL nebulizer solution Inhale 3 mL by mouth. 5 Active lacosamide (VIMPAT) 200 mg tablet tablet Take 200 mg by mouth 2 times a day. 5 Active Freestyle lancets 28 gauge SMARTSIG:Daily 5 Active lansoprazole (PREVACID) 30 mg capsule Take 30 mg by mouth once a day. 5 Active Synthroid 200 mcg tablet Take 200 mcg by mouth once a day. 5 Active lisinopriL (PRINIVIL,ZESTRI L) 10 mg tablet Take 10 mg by mouth once a day. Active metFORMIN ER (GLUCOPHAGE XR) 500 mg tablet Take 500 mg by mouth nightly. Active montelukast (SINGULAIR) 10 mg tablet Take 10 mg by mouth nightly. Active nystatin (MYCOSTATIN) 100,000 unit/mL suspension PLEASE SEE ATTACHED FOR DETAILED DIRECTIONS Active pantoprazole DR (PROTONIX) 20 mg tablet Take 20 mg by mouth. Active sertraline (ZOLOFT) 100 mg tablet Take 100 mg by mouth once a day. Active sodium chloride 0.9% nebulizer solution Inhale 3 mL by mouth. 5 04/21/20 26 Active sucralfate (CARAFATE) 1 gram tablet SMARTSI Tablet(s) By Mouth Twice Daily 4 Active theophylline anhydrous (theophylline ER) 400 mg 24 HR tablet TAKE 1/2 TAB BY MOUTH EVERY DAY Active diazePAM 10 mg/spray (0.1 mL) spray,non-aeroso lIndications:Oth er generalized epilepsy, not intractable, with status epilepticus Administer 1 spray (10 mg total) into affected nostril(s) once as needed (seizures lasting longer than 5 mins). Administer 1 spray in one nostril as needed. 5 each 3 5 09/02/20 25 Encounters Date Type Department Care Team Description 09/02/2025 Telephone [facility] [address] [place] [phone] Telephone Intake, Staff Seizure 08/06/2025 10:02 AM EST - 08/06/2025 11:59 PM EST Hospital Encounter [facility] [address] [place] [phone] Deann Partida Other generalized epilepsy, not intractable, with status epilepticus Discharge Disposition: Home or Self Care (01) 07/28/2025 Telephone [facility] [address] [place] [phone] Mignon Abbott RN 07/21/2025 1:45 PM EST Office Visit [facility] [address] [place] [phone] Gretta Arredondo MD Other generalized epilepsy, not intractable, with status epilepticus (Primary Dx) from Last 3 Months Family History Medical History Relation Name Comments Diabetes type II Brother Diabetes type II Father Colon cancer Maternal Grandfather Emphysema Maternal Grandmother Memory loss Mother Colon cancer Paternal Grandfather Lung cancer Paternal Grandfather Emphysema Paternal Grandmother Memory loss Paternal Grandmother Relation Name Status Comments Brother Alive Father Alive Maternal Grandfather Maternal Grandmother Mother Alive Paternal Grandfather Paternal Grandmother Social History Tobacco Use Types Packs/Day Years Used Date Smoking Tobacco: Never Smokeless Tobacco: Never Tobacco Cessation:Counseling Given: Not Answered Alcohol Use Standard Drinks/Week Comments Never 0 (1 standard drink = 0.6 oz pur e alcohol) Sex and Gender Information Value Date Recorded Sex Assigned at Male 07/24/2025 12:37 PM EST Legal Sex Male 11:01 AM EST Gender Identity Not on file Sexual Orientation Not on file Last Filed Vital Signs Vital Sign Reading Time Taken Comments Blood Pressure 136/81 07/21/2025 1:34 PM EST Pulse 60 07/21/2025 1:34 PM EST Temperature 36.6 C (97.9 F) 07/21/2025 1:34 PM EST Respiratory Rate 18 07/21/2025 1:34 PM EST Oxygen Saturation - - Inhaled Oxygen Concentration - - Weight 68.9 kg (152 lb) 07/21/2025 1:34 PM EST Height 162.6 cm (5' 4 ) 07/21/2025 1:34 PM EST Body Mass Index 26.09 07/21/2025 1:34 PM EST Plan of Treatment Upcoming Encounters Date Type Department Care Team (Late st Contact Info) Description 05/11/2026 3:30 PM EDT Office Visit [facility] [address] [place] [phone] Gretta Arredondo MD [address] [place] [address] [place] [address] Health Maintenance Due Date Last Done Comments Cologuard 1979 Colon Cancer Screening 1980 Colonoscopy 1979 FOBT / Fit Test 1980 HIV Screening 1980 Hepatitis C Screening 1980 Sigmoidoscopy 1979 Varicella Vaccines (1 of 2 - 13+ 2-dose series) 11/18/1992 Hepatitis B Vaccines (1 of 3 - 19+ 3-dose series) 11/18/1998 Pneumococcal Vaccine: Pediat nayeli (0-5 Years) and At-Risk Patients (6-50 Years) (2 of 2 - PCV) 11/24/2019 11/23/2018, 08/22/2018 Alcohol/Substance Use Screening 09/17/2024 Depression Screening and Follow-Up 09/17/2024 Social Drivers of Health Felisha ual Screening 09/17/2024 COVID-19 Vaccine (1 - 2024-2 6 season) 2025 Basic Metabolic Panel 02/23/2026 02/23/2025, 022 DTaP,Tdap,and Td Vaccines (2 - Td or Tdap) 08/07/2027 08/07/2017 Diabetes Screening 02/24/2028 02/23/2025, 01/30/2022 Influenza Vaccine Completed 07/13/2025, , 09/12/2023, Additional history exists Procedures * Due to [place] [employer] law, this organization might not be sharing negative HIV tests. Procedure Name Priority Date/Time Associated Diagnosis Comments EEG Routine 08/06/2025 12:00 PM EST Other generalized epilepsy, not intractable, with status epilepticus from Last 3 Months Results * Due to [place] [employer] law, this organization might not be sharing negative HIV tests. * EEG/Electroencephalography (08/06/2025 12:00 PM EST) Narrative [facility] - 08/06/2025 10:30 AM EST Ena King MD 08/06/2025 12:45 PM Patient's name:Terrance Carranza Patient's MRN??:[id number] ?Patient :1980 Ordering provider: Al Locke MD HISTORY: 44-year-old man with suspected focal epilepsy. MEDICATIONS: Onfi, lacosamide TECHNICAL SUMMARY: This is a routine EEG performed with anterior temporal as well as standard 10-20 electrodes. Data are recorded using a [employer] digital EEG machine. BACKGROUND: During the awake state with eyes closed, the background consists of medium amplitude, 8.5 Hz activity. There was normal reactivity to eye opening and closure. HYPERVENTILATION: Produced no abnormalities. INTERMITTENT PHOTIC STIMULATION: Produced no abnormalities. SLEEP: Stage II sleep was demonstrated by the presence of sleep spindles. CARDIAC MONITORING: Revealed a regular rhythm, at a rate of 60-70 bpm. IMPRESSION: This EEG, performed during the awake and asleep states, is within normal limits for age, with no focal or lateralized findings observed, nor epileptiform potentials. Ena King MD Epileptologist us Al Locke MD NEUROLOGY ORDERABLES Final Result [facility] from Last 3 Months Insurance MEDICAID Care Teams Slot Tag Inserter Relationship Specialty Start Date End Date Saúl Maier PA [address] [place] [phone] PCP - General 12/30/24
== END 2025-09-04 16:03 | disposition home or self-care (01) ==
LOC: HO.HMCH 15:21
PROVIDERS: PCP Physician Assistant; Visit Provider Nurse Practitioner Family
DX: G40.919 Epilepsy, unspecified, intractable, without status epilepticus (principal)

== ENCOUNTER → 2025-09-04 15:20 | Outpatient (BNVA) | payer OTHER, SELFPAY | PROVIDERS: PCP Physician Assistant; Visit Provider Nurse Practitioner Family | DX: G40.919 Epilepsy, unspecified, intractable, without status epilepticus (principal); K21.9 Gastro-esophageal reflux disease without esophagitis; E11.9 Type 2 diabetes mellitus without complications; G47.33 Obstructive sleep apnea (adult) (pediatric); Z99.89 Dependence on other enabling machines and devices; Z79.899 Other long term (current) drug therapy | CPT/HCPCS: 99212 ==